=== PATIENT | female | born 1980 | race Caucasian/White ===

== ENCOUNTER 2021-08-13 09:32 | Emergency (ER) | payer MEDICARE, OTHER, MEDICAID, SELFPAY ==
[2021-08-13 09:40] VITALS: BP 158/84; PULSE 84; RESP 17; TEMP 36.2; O2SAT 99; BMI 30.7
--- NOTE | 2021-08-13 10:05 | ED.GENADULT ---
HPI - General Adult General Chief complaint: Abdominal Pain Stated complaint: Bad flank pain- rt side Time Seen by Provider: 08/13/21 09:56 Source: patient Mode of arrival: Ambulatory Limitations: no limitations History of Present Illness HPI narrative: 40-year-old woman with a history of bipolar disorder, polycystic ovaries post hysterectomy, reflux, celiac disease, hypertension. On May 28 she had some right flank pain and was seen at [facility] where CT scan was performed suggesting mild colitis normal urine at that time. She was discharged home but continued to have worsening symptoms was then seen at [facility] and diagnosed with pyelonephritis. She had 2 courses of antibiotics. She saw her primary care physician after completion of the initial course was still complaining of pain apparently still had a positive urinalysis in the clinic in a 2nd course of antibiotics was prescribed. She has done well until yesterday when she began having right flank symptoms and generally feeling unwell again, symptoms all similar to previous. She comes in for further evaluation. She describes no significant dysuria or vaginal discharge. She has been having normal bowel movements no nausea or vomiting. No palpitations or chest pain. She has had no fevers. Related Data Home Medications Medication Instructions Recorded Confirmed alprazolam 0.5 mg tablet 0.5 mg PO BID PRN 08/13/21 08/13/21 multivitamin 1 tab PO DAILY 08/13/21 08/13/21 Previous Rx's Medication Instructions Recorded cephalexin 500 mg capsule 500 mg PO TID 10 Days #30 cap 08/13/21 Allergies Allergy/AdvReac Type Severity Reaction Status Date / Time benzonatate Allergy Unknown Verified 08/13/21 10:01 [From Tessalon Perles] escitalopram [From Lexapro] Allergy Unknown Verified 08/13/21 10:01 NSAIDS (Non-Steroidal AdvReac Mild Verified 08/13/21 10:01 Anti-Inflamma Review of Systems Review of Systems Narrative: Remainder of complete review of systems is otherwise unremarkable except for that included in the HPI. Patient History Medical History (Updated 08/13/21 @ 12:04 by Lissa Conte MD) Bipolar disorder Celiac disease GERD with apnea Hypertension Polycystic ovary disease Surgical History (Updated 08/13/21 @ 10:25 by Lissa Conte MD) H/O gastric sleeve H/O oophorectomy History of appendectomy History of cholecystectomy Social History Smoking Status: Never smoker Smoking Status: Never smoker alcohol intake frequency: 0-2 drinks per day Substance Use Type: does not use Exam Narrative Exam Narrative: General: Healthy appearing, in no acute distress. Able to give a complete and coherent history. Well-nourished well-developed HEENT: Moist mucous membranes, normal sclera with reactive pupils, Neck: No JVD, supple Respiratory: Lungs are clear to auscultation, no wheezing no rales no rhonchi. Full and symmetrical air movement Cardiac: Regular rate and rhythm no murmurs no bruits Abdomen: Soft, tender in the right middle quadrant without rebound or guarding. Good bowel tones, mild right flank pain. Also has some tenderness right lumbar area paraspinous muscle without any skin changes, redness or fullness in the area. Skin: Warm and dry, no rashes Neurologic: Grossly neurologically intact with no obvious asymmetries or abnormalities Extremities: No trauma, well perfused Psych: Cooperative, appropriate insight and affect Initial Vital Signs Initial Vital Signs: Vital Signs Temperature 97.1 F L 08/13/21 09:40 Pulse Rate 84 08/13/21 09:40 Respiratory Rate 17 08/13/21 09:40 Blood Pressure 158/84 H 08/13/21 09:40 Pulse Oximetry 99 08/13/21 09:40 Course Orders Ordered: ED Orders 08/13/21 09:40 Urine Culture Stat Urine Microscopic Stat 08/13/21 09:50 Complete Blood Count AUTO DIFF Stat Comprehensive Metabolic Panel Stat Lipase Stat Discontinued Medications Ceftriaxone Sodium 1,000 mg/ (Sodium Chloride) 100 mls @ 200 mls/hr IV NOW ONE Stop: 08/13/21 12:08 Ketorolac Tromethamine (Ketorolac 30 Mg/Ml Vial) 15 mg IV NOW ONE Stop: 08/13/21 10:34 Last Admin: 08/13/21 11:07 Dose: 15 mg Documented by: AUPDIKE Oxycodone/Acetaminophen (Oxycodone/Acetaminophen 5/325 Tablet) 1 tab PO NOW ONE Stop: 08/13/21 12:08 Vital Signs Vital signs: Vital Signs - 8 hr 08/13/21 09:40 08/13/21 11:17 Temperature 97.1 F L Pulse Rate 84 70 Respiratory Rate 17 Blood Pressure 158/84 H 135/74 Pulse Oximetry 99 99 Medical Decision Making Lab Data Result diagrams: 08/13/21 09:50 08/13/21 09:50 Labs: Lab Results 08/13/21 08/13/21 08/13/21 Range/Units 09:40 09:50 09:50 WBC 10.1 (4.5-11.0) X10^3/uL RBC 4.05 (4.0-5.2) X10^6/uL Hgb 11.9 L (12.0-16.0) g/dL Hct 35.4 L (36-46) % MCV 87.5 (80-100) fL MCH 29.4 (26-34) PG MCHC 33.6 (30-36) % RDW 13.5 (11.6-14.8) % Plt Count 306 (150-400) X10^3/uL Neut % (Auto) 62.2 (50-75) % Lymph % (Auto) 27.1 (25-40) % Mccormick % (Auto) 8.8 (3-14) % Eos % (Auto) 1.4 L (2-4) % Baso % (Auto) 0.5 (0-2) % Neut # (Auto) 6300 (7827-8645) /uL Lymph # (Auto) 2700 (1520-5732) /uL Mccormick # (Auto) 900 (0-900) /uL Eos # (Auto) 100 (0-450) /uL Baso # (Auto) 100 (0-100) /uL Sodium 138 (137-145) mmol/L Potassium 4.2 (3.4-5.1) mmol/L Chloride 105 (98-107) mmol/L Carbon Dioxide 26 (22-32) mmol/L BUN 9 (7-17) mg/dL Creatinine 0.58 (0.52-1.04) mg/dL Estimated GFR > 60.0 (>60) mL/min BUN/Creatinine Ratio 15.5 (6-22) Glucose 99 (70-100) mg/dL Calcium 9.4 (8.4-10.2) mg/dL Total Bilirubin 1.0 (0.2-1.3) mg/dL AST 19 (14-36) IU/L ALT 15 (<35) IU/L Alkaline Phosphatase 47 (38-126) U/L Total Protein 7.1 (6.3-8.2) g/dL Albumin 4.4 (3.5-5.0) g/dL Globulin 2.7 (1.7-4.1) g/dL Albumin/Globulin Ratio 1.6 (1.0-2.8) Lipase 143 (23-300) U/L Urine RBC 1-5/hpf (0-5/HPF) Urine WBC 30-100/hpf H (0-5/HPF) Urine Bacteria Moderate (10-30) H (None) Ur Culture Indicated? Specimen cultured Urine Dip Bedside Urine Glucose Negative Bedside Urine Bilirubin - Negative Bedside Urine Ketone - Negative Urine Specific [place] 1.020 Bedside Urine Occult Blood +/- Bedside Urine pH 6.5 Bedside Urine Protein - Negative Bedside Urine Urobilinogen - Negative Bedside Urine Nitrite - Negative Bedside Urine Leukocytes + 70 Esterase Point of care testing: Urine Dip Bedside Urine Glucose Negative Bedside Urine Bilirubin - Negative Bedside Urine Ketone - Negative Urine Specific [place] 1.020 Bedside Urine Occult Blood +/- Bedside Urine pH 6.5 Bedside Urine Protein - Negative Bedside Urine Urobilinogen - Negative Bedside Urine Nitrite - Negative Bedside Urine Leukocytes + 70 Esterase MDM Narrative Medical decision making narrative: Woman with recurrent right flank pain. Urinalysis has white cells and moderate bacteria so will treat for presumed developing pyelonephritis. At this point she does not show signs of systemic infection, sepsis, kidney dysfunction. Will give her a dose of IV ceftriaxone to begin. As she did have 2 courses of antibiotics she will finger with the 2nd antibiotic was seem to work best and then I will send her home with a prescription for that with instructions to follow-up with her primary care physician. At this point a do not suspect kidney stone, appendicitis, bowel obstruction or surgical emergency. Original antibiotic prescription had been for cefdinir. Follow-up antibiotics were Keflex and Flagyl. I do not see an acute indication to add Flagyl to a urine/kidney infection with no evidence of colitis. Discharge Plan Departure Patient Disposition: Home Clinical Impression: Pyelonephritis Instructions: DI for Kidney Infection Activity Restrictions/Additional Instructions: Thank you for coming in today Your blood work does not show overwhelming infection or sepsis. Your urine does have white blood cells and bacteria. That, in combination with your pain suggests a developing bladder/kidney infection. In the emergency department you were given a dose of IV ceftriaxone to begin treating this and I have given you a repeat prescription of cephalexin. At this time, I do not think that we need to add the Flagyl to that. Using 400 mg of ibuprofen (2 [id number] pills) and 1 Tylenol every 6 hours can be very helpful in controlling pain. If symptoms change or worsen, please feel free to return to the ER I hope you feel better soon Prescriptions: New cephalexin 500 mg capsule 500 mg PO TID 10 Days Qty: 30 0RF No Action multivitamin [Daily Multivitamin] Tablet 1 tab PO DAILY 0RF alprazolam 0.5 mg tablet 0.5 mg PO BID PRN (Reason: Anxiety) 0RF Label Comments: take 1 tablet by mouth twice a day if needed Referrals: Elana Rees DO [Primary Care Provider] -
[2021-08-13 10:17] LABS: Add Manual Diff / Slide Review NO; Basophils Absolute Auto 100 /uL (0-100); Basophils Percent Auto 0.5 % (0-2); Eosinophils Absolute Auto 100 /uL (0-450); Eosinophils Percent Auto 1.4 % (2-4); Hematocrit 35.4 % (36-46); Hemoglobin 11.9 g/dL (12.0-16.0); Lymphocytes Absolute Auto 2700 /uL (1100-4500); Lymphocytes Percent Auto 27.1 % (25-40); Mean Corpuscular HGB Conc 33.6 % (30-36); Mean Corpuscular Hemoglobin 29.4 PG (26-34); Mean Corpuscular Volume 87.5 fL (80-100); Monocytes Absolute Auto 900 /uL (0-900); Monocytes Percent Auto 8.8 % (3-14); Neutrophils Absolute Auto 6300 /uL (1500-7000); Neutrophils Percent Auto 62.2 % (50-75); Platelet Count 306 X10^3/uL (150-400); Red Blood Cell Count 4.05 X10^6/uL (4.0-5.2); Red Cell Distribution Width 13.5 % (11.6-14.8); White Blood Cell Count 10.1 X10^3/uL (4.5-11.0)
[2021-08-13 10:26] LABS: Alanine Aminotransferase 15 IU/L (<35); Albumin 4.4 g/dL (3.5-5.0); Albumin Globulin Ratio 1.6 (1.0-2.8); Alkaline Phosphatase 47 U/L (38-126); Aspartate Aminotransferase 19 IU/L (14-36); BUN Creatinine Ratio 15.5 (6-22); Blood Urea Nitrogen 9 mg/dL (7-17); Calcium 9.4 mg/dL (8.4-10.2); Carbon Dioxide 26 mmol/L (22-32); Chloride 105 mmol/L (98-107); Estimated Glomerular Filt Rate > 60.0 mL/min (>60); Globulin 2.7 g/dL (1.7-4.1); Glucose 99 mg/dL (70-100); HEMOLYSIS < 15 (0-50); Lipase 143 U/L (23-300); Potassium 4.2 mmol/L (3.4-5.1); Sodium 138 mmol/L (137-145); Total Protein 7.1 g/dL (6.3-8.2)
[2021-08-13] MEDS: KETOROLAC 30 MG/ML VIAL 15 MG IV (11:07)
[2021-08-13 11:17] VITALS: BP 135/74; PULSE 70; O2SAT 99
[2021-08-13 11:50] LABS: Bacteria Urine Moderate (10-30); Culture Indicated Urine Specimen Cultured; RBC Urine 1-5/HPF (0-5/HPF); WBC Urine 30-100/HPF (0-5/HPF)
[2021-08-13 12:30] VITALS: BP 122/73; PULSE 63; O2SAT 100
[2021-08-13] MEDS: OXYCODONE/ACETAMINOPHEN 5/325 TABLET 1 TAB PO (12:32)
[2021-08-13] MEDS: cefTRIAXone 1,000 MG in SODIUM CHLORIDE 0.9% 100 ML 200 ML IV (12:32)
[2021-08-13 12:46] VITALS: BP 122/73; PULSE 63; RESP 14; O2SAT 100
== END 2021-08-13 13:07 | disposition home or self-care (01) ==
PROVIDERS: Emergency Provider Emergency Medicine; PCP Family Medicine
DX: N12 Tubulo-interstitial nephritis, not specified as acute or chronic (principal)
CPT/HCPCS: 36415; 80053; 81003; 81015; 83690; 85025; 87077; 87086; 87186; 96374; 99284; J0696; J1885

== ENCOUNTER → 2021-08-16 15:28 | Outpatient (CLI) | payer MEDICARE, OTHER, MEDICAID, SELFPAY ==
--- NOTE | 2021-08-16 15:30 | DI.CT.S_ITS ---
PROCEDURE: CT ABDOMEN PELVIS WO/W CON INDICATIONS: PYELONEPHRITIS TECHNIQUE: Optional 5 mm thick noncontrast images acquired from the diaphragm to the symphysis pubis. After the administration of intravenous contrast, 5 mm thick images acquired from the diaphragm to the symphysis pubis after a 10-minute delay. 2 mm thick coronal and sagittal reformats were then performed of the kidneys and ureters. For radiation dose reduction, the following was used: automated exposure control, adjustment of mA and/or kV according to patient size. COMPARISON: [facility], CT, CT ABDOMEN PELVIS WITH CONTRAST, 01/09/2021, 18:08. [facility], CT, CT ABDOMEN PELVIS WITH CONTRAST, 10/07/2020, 20:48. [facility], CT, CT ABDOMEN PELVIS WITH CONTRAST, 05/24/2020, 7:24. [facility], CT, CT ABDOMEN PELVIS WITH CONTRAST, 05/28/2021, 15:09. FINDINGS: Image quality: Excellent. Lung bases: Lung bases are clear. Heart size is normal. Small hiatal hernia. Urinary system: Both kidneys are normal in size, without hydronephrosis or nephrolithiasis on pre-contrast images. No perinephric fat stranding. There is normal bilateral renal enhancement. Renal calyces appear normal in morphology when filled with contrast. Opacified portions of both ureters demonstrate normal caliber. Bladder wall thickness is normal. No calcified bladder stones. Other solid organs: Liver is normal in size and enhancement. A small hypodensity in liver adjacent to the falciform ligament is compatible with focal fat. Gallbladder is surgically absent. Biliary system is non dilated. Pancreas enhances normally. Spleen is normal in size. There is a 4.6 cm diameter cyst in spleen, unchanged. No adrenal nodules. Peritoneum and bowel: Postsurgical changes in stomach. Bowel loops demonstrate normal wall thickness and caliber. A few colonic diverticula are present. No diverticulitis. Appendix is surgically removed. No free fluid or air. Nodes and vessels: No retroperitoneal or mesenteric adenopathy by size criteria. Aorta and inferior vena cava are normal in size. Abdominal wall: No ventral hernias. Pelvis: Uterus is absent. Ovaries are not well seen. No adnexal mass. No pathologic free pelvic fluid. No inguinal hernias or adenopathy. Bones: No suspicious bony lesions. No vertebral body compression fractures. Mild degenerative changes in lumbar spine. IMPRESSION: 1. Normal CT appearance of kidneys. No findings to suggest pyelonephritis. 2. Diverticulosis without diverticulitis. 3. Stable 4.6 cm cyst in spleen. Dictated by: Claudio Novak M.D. on 08/16/2021 at 16:35 Approved by: Claudio Novak M.D. on 08/16/2021 at 16:42
== END ==
PROVIDERS: PCP Family Medicine; Referring Provider Family Medicine; Visit Provider Family Medicine
DX: N12 Tubulo-interstitial nephritis, not specified as acute or chronic (principal)
CPT/HCPCS: 74178; Q9967

== ENCOUNTER 2021-11-02 21:02 | Emergency (ER) | payer MEDICARE, OTHER, MEDICAID, SELFPAY ==
[2021-11-02 21:22] VITALS: BP 143/76; PULSE 65; RESP 20; TEMP 36.7; O2SAT 97
--- NOTE | 2021-11-02 21:27 | DI.RAD.S_ITS ---
PROCEDURE: XR KNEE LT 3V INDICATIONS: fell on it yesterday,pain and contusion TECHNIQUE: 3 views of the knee were acquired. COMPARISON: None. FINDINGS: Bones: No fractures or dislocations. No suspicious bony lesions. Soft tissues: No joint effusion. No suspicious soft tissue calcifications. IMPRESSION: No evidence acute bony abnormality of the left knee. If clinical suspicion and/or symptoms persist, further assessment with repeat plain films, or advanced imaging (e.g., CT, MRI, or bone scan) may be helpful for further assessment. Dictated by: Chase Steele M.D. on 11/02/2021 at 22:29 Approved by: Chase Steele M.D. on 11/02/2021 at 22:30
--- NOTE | 2021-11-02 21:53 | ED_ITS ---
HPI - Extremity Injury (Lower) General Chief Complaint: Extremity Injury, Lower Stated Complaint: fell on left knee, pain Time Seen by Provider: 11/02/21 21:06 Source: patient Mode of arrival: Ambulatory History of Present Illness HPI Narrative: 40-year-old female nonsmoker with noncontributory medical history presents with her significant other and a chief complaint of severe anterior left knee pain since a mechanical fall yesterday. She states she was getting some items out of her car a put a backpack over her shoulder and stepped out onto black ice and fell directly forward onto her knee cap. She denies any twisting type injury. She states she has had meniscal injuries in the past this feels much different. She states her pain was not all that severe initially but over the course of the last 24 hours has become much more significant. She denies any numbness, tingling or weakness. She denies any head, neck or back pain. She denies any hip or ankle injuries. She has increased pain with attempts at ambulation but states the pain comes when she flexes her knee not when she is load bearing on it. Related Data Home Medications Medication Instructions Recorded Confirmed alprazolam 0.5 mg tablet 0.5 mg PO BID PRN 08/13/21 08/13/21 multivitamin 1 tab PO DAILY 08/13/21 08/13/21 Previous Rx's Medication Instructions Recorded hydrocodone 5 mg-acetaminophen 325 1 tab PO Q4-6H PRN #10 tab 11/02/21 mg tablet Allergies Allergy/AdvReac Type Severity Reaction Status Date / Time benzonatate Allergy Unknown Verified 08/13/21 10:01 [From Ezekiel Dhaliwal] escitalopram [From Lexapro] Allergy Unknown Verified 08/13/21 10:01 NSAIDS (Non-Steroidal AdvReac Mild Verified 08/13/21 10:01 Anti-Inflamma Review of Systems Review of Systems Narrative: GENERAL: Denies chills, fatigue, malaise, fever, sweats. HEENT: Denies sinus pain, ear pain, sore throat, difficulty swallowing, dizziness. RESPIRATORY: Denies dyspnea, cough, wheezing, hemoptysis, sputum. CARDIOVASCULAR: Denies chest pain, palpitations, orthopnea, edema, GASTROINTESTINAL: Denies nausea, vomiting, abdominal pain, diarrhea, constipation, melena. : Denies dysuria, frequency, incontinence, hematuria, urinary retention. MUSCULOSKELETAL: See HPI SKIN: Denies rash, skin lesions, or other NEUROLOGIC: Denies weakness, headache, numbness, change in speech, confusion, seizures, incoordination. PSYCHIATRIC: No concerning psychosocial issues. 12 point review of systems is negative except for those stated above Patient History Medical History Bipolar disorder Celiac disease GERD with apnea Hypertension Polycystic ovary disease Surgical History H/O gastric sleeve H/O oophorectomy History of appendectomy History of cholecystectomy Social History Smoking Status: Never smoker Smoking Status: Never smoker alcohol intake frequency: 0-2 drinks per day Substance Use Type: does not use Exam Narrative Exam Narrative: GENERAL: [40] year old patient appears stated age. Well-developed patient, in mild distress. HEAD: Atraumatic. Normocephalic. EYES: Pupils equal round and reactive. Extraocular motions intact. No scleral icterus. No injection or drainage. ENT: Nose without bleeding, purulent drainage. Throat without erythema, tonsillar hypertrophy or exudate. Airway patent. NECK: Trachea midline. Non tender CARDIOVASCULAR: Regular rate and rhythm without murmurs, gallops, or rubs. RESPIRATORY: Clear to auscultation. Breath sounds equal bilaterally. No wheezes, rales, or rhonchi. GASTROINTESTINAL: Abdomen soft, non-tender, nondistended. EXTREMITIES: Full but painful range of motion of left knee, no swelling or ligamentous stability. No pain with axial loading. There is tenderness to pal pation overlying the patella. Patient able to extend at the knee fully, but with pain. BACK: Nontender without deformity or crepitance. No flank tenderness. NEURO: AOx3. SKIN: No rash or erythema of visible areas Initial Vital Signs Initial Vital Signs: Vital Signs Temperature 98.1 F 11/02/21 21:22 Pulse Rate 65 11/02/21 21: Respiratory Rate 20 11/02/21 21:22 Blood Pressure 143/76 H 11/02/21 21:22 Pulse Oximetry 97 11/02/21 21:22 Procedures Orthopedic Splinting/Casting Injury #1: Side: left Lower Extremity Injury Location: knee Lower Extremity Immobilizer: knee immobilizer Post splinting neuro exam: intact Post splinting vascular exam: intact Placed by: Nursing Course Orders Ordered: ED Orders 11/02/21 21:27 XR knee LT 3V Stat Discontinued Medications Hydrocodone Bitart/Acetaminophen (Hydrocodone/Acet 5/325 Prepack) 1 bottle MISC SEEINSTR ONE Stop: 11/02/21 22:43 Last Admin: 11/02/21 22:51 Dose: 1 bottle Documented by: FANY Vital Signs Vital signs: Vital Signs - 8 hr 11/02/21 21:22 11/02/21 22:58 Temperature 98.1 F Pulse Rate 65 66 Respiratory Rate 20 18 Blood Pressure 143/76 H 139/86 Pulse Oximetry 97 100 MDM - Extremity Injury (Lower) Imaging Data Extremity x-ray #1: Radiologist's Impression: [address] [address] XRay Report Signed Patient: Janet Capellan MR#: [id number] : 1980 Acct:[id number] Age/Sex: 40 / F Date of Service: 11/02/21 Loc: ED Accession Number: [id number] ?? Procedure: XR knee LT 3V Ordering Provider: Horace Kan D.O. PROCEDURE:? XR KNEE LT 3V ? INDICATIONS:? fell on it yesterday,pain and contusion ? TECHNIQUE:? 3 views of the knee were acquired.? ? COMPARISON:? None. ? FINDINGS:? ? Bones:? No fractures or dislocations.? No suspicious bony lesions.? ? Soft tissues:? No joint effusion.? No suspicious soft tissue calcifications.? ? ? IMPRESSION:? No evidence acute bony abnormality of the left knee. ? If clinical suspicion and/or symptoms persist, further assessment with repeat plain films, or advanced imaging (e.g., CT, MRI, or bone scan) may be helpful for further assessment. ? Dictated by: Chase Steele M.D. on 11/02/2021 at 22:29 ? ? Approved by: Chase Steele M.D. on 11/02/2021 at 22:30 ? [facility] Narrative Medical decision making narrative: Patient with reassuring history and physical exam. Fracture thought to be unlikely given lack of findings on imaging, lack of effusion and lack of pain with axial load. There is no evidence of ligamentous instability, pain with Edgar's, or effusion to suggest significant internal derangement. Patellar tendon intact given patient's ability to actively extend at the knee. Patient's pain is worsening over time suggesting an inflammatory soft tissue injury as opposed to fracture. We did discuss the utility of CT but agree is not indicated at this point time. Extensive return precautions discussed and questions answered to their apparent satisfaction Discharge Plan Departure Patient Disposition: Home Clinical Impression: Contusion of knee Instructions: DI for Knee Pain Activity Restrictions/Additional Instructions: *You have been diagnosed with [fall with left knee pain. Your history and physical exam are reassuring, x-ray shows no fracture or dislocation. *What to do: *Please continue to take your regular medications as directed. [x ] New medication prescriptions sent to your pharmacy: [[facility] ] [ ] New medication written as a paper prescription [ ] No new medications given *Please follow up with your primary care provider in 2-3 days, call for an appointment. Let them know you were seen in the Emergency Department and that we ask that you be seen in follow up. We will electronically transmit a record of today's note if your PCP is in our system *If you do not have a primary care provider please contact the [facility] Resource line at [phone]. They will ask some questions about your medical history and help get you set up with a doctor in the community. *Return to Emergency Department if you should have any new, worsening or concerning symptoms, such as [fever greater than 101 F, shaking chills, worsening pain, persistent vomiting or other bothersome symptoms] You have been prescribed a short course of narcotic medications. These are potentially dangerous and addictive medications that should be used carefully. While on these medications you cannot drive or operate heavy machinery. Additionally, you cannot sign legal documents or perform any duties such as this. Many people get constipated on narcotic medications so it would be advisable to discuss stool softeners with the pharmacist when you grape picker your prescription. Please understand that we cannot provide further refills of narcotics or controlled substances through the ED and your pain management will need to be through your Primary Care Provider Prescriptions: New hydrocodone-acetaminophen 5-325 mg tablet 1 tab PO Q4-6H PRN (Reason: pain) Qty: 10 0RF No Action multivitamin [Daily Multivitamin] Tablet 1 tab PO DAILY 0RF alprazolam 0.5 mg tablet 0.5 mg PO BID PRN (Reason: Anxiety) 0RF Label Comments: take 1 tablet by mouth twice a day if needed Referrals: Elana Rees DO [Primary Care Provider] -
[2021-11-02] MEDS: HYDROCODONE/ACET 5/325 PREPACK 1 BOTTLE MISC (22:51)
[2021-11-02 22:58] VITALS: BP 139/86; PULSE 66; RESP 18; O2SAT 100
== END 2021-11-02 23:02 | disposition home or self-care (01) ==
PROVIDERS: Emergency Provider Emergency Medicine; PCP Family Medicine
DX: S80.02XA Contusion of left knee, initial encounter (principal); W00.0XXA Fall on same level due to ice and snow, initial encounter
CPT/HCPCS: 73562; 99283

== ENCOUNTER 2021-11-27 12:16 | Emergency (ER) | payer MEDICARE, OTHER, MEDICAID, SELFPAY ==
[2021-11-27 12:26] VITALS: BP 180/93; PULSE 67; RESP 16; TEMP 37; O2SAT 97; BMI 31.4
--- NOTE | 2021-11-27 13:19 | DI.US.S_ITS ---
PROCEDURE: US PELVIC COMPLETE INDICATIONS: R adnexa pain eval for ovarian pathology TECHNIQUE: Real-time scanning was performed of the pelvic organs, with image documentation. Additional endovaginal scanning was necessary due to incomplete visualization of the adnexal and endometrial structures by transabdominal scanning. COMPARISON: [facility], CT, CT ABDOMEN PELVIS WO/W CON, 08/16/2021, 15:38. [facility], US, US PELVIC TRANSVAGINAL, 05/28/2021, 14:51. FINDINGS: Uterus: Removed. Ovaries: The right ovary measures 3.3 x 1.9 x 1.8 cm and demonstrates 2 complex areas within it measuring up to 1.3 cm and up to 1.2 cm. Normal appearing arterial flow is confirmed to the right ovary. The left ovary is not seen. No adnexal masses are seen on either side. Other: No pathologic free abdominal or pelvic fluid. IMPRESSION: Abnormal appearing right ovary, with 2 complex areas, which have the appearance of hemorrhagic cysts. If it would be clinically appropriate, a followup pelvic ultrasound could be considered in 6 weeks to assure resolution/ improvement. Negative for right ovarian torsion. Status post hysterectomy and left oophorectomy. We strive to produce accurate, complete, and clear reports of imaging services. To assist us in improving patient care, this report was composed using standard report templates and voice recognition software. Therefore, it may contain abnormal punctuation, insertions and/or omissions. Occasional wrong-word or sound-alike substitutions may occur. Though we review the report and make efforts to correct it, we do recommend that the report be read carefully in proper context to recognize any text inaccuracies. Dictated by: Rasheed Tanner M.D. on 11/27/2021 at 13:12 Approved by: Rasheed Tanner M.D. on 11/27/2021 at 13:14
[2021-11-27 15:09] VITALS: BP 171/96; PULSE 80; RESP 18; O2SAT 100
--- NOTE | 2021-11-27 15:47 | ED_ITS ---
HPI - Abdominal Pain <Luhter Fischer PA-C - Last Filed: 11/27/21 15:56> General Chief Complaint: Abdominal Pain Stated Complaint: RIGHT SIDE OVERIAN CYST PAIN PRESSURE Time Seen by Provider: 11/27/21 13:19 Source: patient Mode of arrival: Ambulatory History of Present Illness HPI narrative: Patient is a 40-year-old female who presents today with right lower quadrant abdominal pain that started 2 days ago. She has a history of ovarian cyst in the past she had a left oophorectomy with complete hysterectomy done a couple years ago. She states that a couple days ago she started having pinpoint lower right quadrant abdominal pain that has become progressively worse. She is having some associated nausea denies any vomiting or diarrhea no recent trauma or fall. Patient denies any dysuria fever vaginal discharge vaginal bleeding. She has had a previous appendectomy as well as a cholecystectomy. Related Data Home Medications Medication Instructions Recorded Confirmed alprazolam 0.5 mg tablet 0.5 mg PO BID PRN 08/13/21 08/13/21 multivitamin 1 tab PO DAILY 08/13/21 08/13/21 Previous Rx's Medication Instructions Recorded hydrocodone 5 mg-acetaminophen 325 1 tab PO Q4-6H PRN #10 tab 11/02/21 mg tablet ondansetron 4 mg disintegrating 4 mg PO Q6-8H PRN #10 tab 11/27/21 tablet tramadol 50 mg tablet 50 mg PO Q6H #20 tab 11/27/21 Allergies Allergy/AdvReac Type Severity Reaction Status Date / Time benzonatate Allergy Unknown Verified 11/27/21 12:26 [From Tessalon Perles] escitalopram [From Lexapro] Allergy Unknown Verified 11/27/21 12:26 NSAIDS (Non-Steroidal AdvReac Mild Verified 11/27/21 12:26 Anti-Inflamma Review of Systems <Luther Fischer PA-C - Last Filed: 11/27/21 15:56> Review of Systems ROS Unobtainable: All systems reviewed & are unremarkable except as noted in HPI and below Constitutional Constitutional: Denies chills, Denies fatigue, Denies fever(s), Denies frequent falls, Denies lethargy and Denies weakness Eyes Eyes: Denies change in vision, Denies eye discharge, Denies irritation and Denies loss of vision ENT Ears, Nose, Mouth, and Throat: Denies change in voice, Denies dizziness, Denies neck pain, Denies sore throat and Denies throat swelling Cardiovascular Cardiovascular: Denies chest pain, Denies irregular heart rhythm, Denies lightheadedness, Denies palpitations, Denies dyspnea, Denies dyspnea on exertion and Denies orthopnea Respiratory Respiratory: Denies cough, Denies dyspnea, Denies dyspnea on exertion and Denies wheezing Gastrointestinal Gastrointestinal: Reports abdominal pain, Denies change in bowel habits, Denies diarrhea, Reports nausea and Denies vomiting Genitourinary Genitourinary: Denies hematuria, Denies flank pain, Denies urinary incontinence and Denies urinary urgency Musculoskeletal Musculoskeletal: Denies back pain, Denies muscle weakness, Denies neck pain, Denies numbness and Denies tingling Integumentary/Breasts Skin/Breast: Denies pruritus, Denies erythema, Denies rash and Denies wounds Neurologic Neurologic: Denies behavioral changes, Denies confusion, Denies dizziness, De nies frequent falls, Denies loss of vision, Denies numbness, Denies tingling and Denies weakness Psychiatric Psychiatric: Denies anxiety, Denies behavioral changes, Denies confusion, Denies depression, Denies homicidal ideation and Denies suicidal ideation Endocrine Endocrine: Denies fatigue, Denies flushing and Denies palpitations Hematologic/Lymphatic Hematologic/Lymphatic: Denies easy bruising Allergic/Immunologic Allergic/Immunologic: Denies urticaria, Denies throat swelling and Denies wheezing Patient History <Luther Fischer PA-C - Last Filed: 11/27/21 15:56> Medical History Bipolar disorder Celiac disease GERD with apnea Hypertension Polycystic ovary disease Surgical History H/O gastric sleeve H/O oophorectomy History of appendectomy History of cholecystectomy Social History Smoking Status: Never smoker Smoking Status: Never smoker alcohol intake frequency: holidays/special occasions only Substance Use Type: does not use Exam <Luther Fischer PA-C - Last Filed: 11/27/21 15:56> Initial Vital Signs Initial Vital Signs: Vital Signs Temperature 98.6 F 11/27/21 12:26 Pulse Rate 67 11/27/21 12:26 Respiratory Rate 16 11/27/21 12:26 Blood Pressure 180/93 H 11/27/21 12:26 Pulse Oximetry 97 11/27/21 12:26 Const General: cooperative, healthy appearing and comfortable Nutritional Appearance: average body habitus Orientation: Orientation Resp Effort & Inspection: normal respiratory effort and able to speak in complete sentences Auscultation: clear to auscultation bilaterally Percussion: percussion normal Cardio Palpation: normal PMI Rate: regular rate Rhythm: regular rhythm Heart Sounds: S1 normal and S2 normal GI Inspection: normal to inspection Palpation: soft, no hepatosplenomegaly and tender (Right lower quadrant pain) Percussion: normal to percussion Auscultation: normal bowel sounds Skin General: no rashes or lesions noted <DO Sergio Gallagher Last Filed: 11/27/21 16:04> Initial Vital Signs Initial Vital Signs: Vital Signs Temperature 98.6 F 11/27/21 12:26 Pulse Rate 67 11/27/21 12:26 Respiratory Rate 16 11/27/21 12:26 Blood Pressure 180/93 H 11/27/21 12:26 Pulse Oximetry 97 11/27/21 12:26 Course <Luther Fischer PA-C - Last Filed: 11/27/21 15:56> Orders Ordered: ED Orders 11/27/21 13:19 US pelvic complete Stat Discontinued Medications Hydromorphone HCl (Hydromorphone 1 Mg Inj) 1 mg IM NOW ONE Stop: 11/27/21 15:46 Promethazine HCl (Promethazine 25 Mg Tablet) 25 mg PO NOW ONE Stop: 11/27/21 15:46 Vital Signs Vital signs: Vital Signs - 8 hr 11/27/21 12:26 11/27/21 15:09 Temperature 98.6 F Pulse Rate 67 80 Respiratory Rate 16 18 Blood Pressure 180/93 H 171/96 H Pulse Oximetry 97 100 <DO Sergio Gallagher Last Filed: 11/27/21 16:04> Orders Ordered: ED Orders 11/27/21 13:19 US pelvic complete Stat Discontinued Medications Hydromorphone HCl (Hydromorphone 1 Mg Inj) 1 mg IM NOW ONE Stop: 11/27/21 15:46 Promethazine HCl (Promethazine 25 Mg Tablet) 25 mg PO NOW ONE Stop: 11/27/21 15:46 Vital Signs Vital signs: Vital Signs - 8 hr 11/27/21 12:26 11/27/21 15:09 Temperature 98.6 F Pulse Rate 67 80 Respiratory Rate 16 18 Blood Pressure 180/93 H 171/96 H Pulse Oximetry 97 100 MDM - Abdominal Pain <Luther Fischer PA-C - Last Filed: 11/27/21 15:56> Differential Diagnosis Differential diagnosis: Likely abdominal pain and other Lab Data Point of care testing: Urine Dip Bedside Urine Glucose Negative Bedside Urine Bilirubin - Negative Bedside Urine Ketone - Negative Urine Specific Stone[place] 1.015 Bedside Urine Occult Blood - Negative Bedside Urine pH 6.0 Bedside Urine Protein - Negative Bedside Urine Urobilinogen - Negative Bedside Urine Nitrite - Negative Bedside Urine Leukocytes - Negative Esterase Imaging Data US - abdomen: Radiologist's Impression: PROCEDURE:? US PELVIC COMPLETE ? INDICATIONS:? R adnexa pain eval for ovarian pathology ? TECHNIQUE:? Real-time scanning was performed of the pelvic organs, with image documentation.? Additional endovaginal scanning was necessary due to incomplete visualization of the adnexal and endometrial structures by transabdominal scanning.? ? COMPARISON:? [facility], CT, CT ABDOMEN PELVIS WO/W CON, 08/16/2021, 15:38.? [facility], US, US PELVIC TRANSVAGINAL, 05/28/2021, 14:51. ? FINDINGS:? ?? Uterus:? Removed. ? Ovaries:? The right ovary measures 3.3 x 1.9 x 1.8 cm and demonstrates 2 complex areas within it measuring up to 1.3 cm and up to 1.2 cm.? Normal appearing arterial flow is confirmed to the right ovary. ? The left ovary is not seen. ? No adnexal masses are seen on either side.? ? Other:? No pathologic free abdominal or pelvic fluid. ? ? IMPRESSION:? Abnormal appearing right ovary, with 2 complex areas, which have the appearance of hemorrhagic cysts. If it would be clinically appropriate, a followup pelvic ultrasound could be considered in 6 weeks to assure resolution/ improvement.? ? Negative for right ovarian torsion. ? Status post hysterectomy and left oophorectomy. ? ? We strive to produce accurate, complete, and clear reports of imaging services. To assist us in improving patient care, this report was composed using standard report templates and voice recognition software. Therefore, it may contain abnormal punctuation, insertions and/or omissions. Occasional wrong-word or sound-alike substitutions may occur. Though we review the report and make efforts to correct it, we do recommend that the report be read carefully in proper context to recognize any text inaccuracies. ? ? Dictated by: Rasheed Tanner M.D. on 11/27/2021 at 13:12 ? ? Approved by: Rasheed Tanner M.D. on 11/27/2021 at 13:14?? MDM Narrative Medical decision making narrative: Patient was evaluated today for right lower quadrant abdominal pain. Ultrasound does show evidence of a right-sided ovarian cyst that is hemorrhagic in nature. I think it is feasible that this is the result of her ongoing pain. Pain medication and anti nausea medication was sent over to her pharmacy. She can follow-up with her OBGYN or she can return to the ED for any further concerns patient was discharged home. <Onesimo Cruz, - Last Filed: 11/27/21 16:04> Lab Data Point of care testing: Urine Dip Bedside Urine Glucose Negative Bedside Urine Bilirubin - Negative Bedside Urine Ketone - Negative Urine Specific Stonewall 1.015 Bedside Urine Occult Blood - Negative Bedside Urine pH 6.0 Bedside Urine Protein - Negative Bedside Urine Urobilinogen - Negative Bedside Urine Nitrite - Negative Bedside Urine Leukocytes - Negative Esterase Discharge Plan Departure Patient Disposition: Home Clinical Impression: Hemorrhagic cyst of right ovary Instructions: DI for Ovarian Cyst, DI for Abdominal Pain-Adult Activity Restrictions/Additional Instructions: Your seen today for abdominal pain that I think is likely a result of your right-sided hemorrhagic ovarian cyst. Get pain medications and anti nausea medications were sent over to your pharmacy follow-up with your OBGYN is recommended or you can return to the ED if symptoms worsen. Thank you for the opportunity to care for you today Prescriptions: New tramadol 50 mg tablet 50 mg PO Q6H Qty: 20 0RF ondansetron 4 mg tablet,disintegrating 4 mg PO Q6-8H PRN (Reason: nausea and vomiting) Qty: 10 0RF No Action hydrocodone-acetaminophen 5-325 mg tablet 1 tab PO Q4-6H PRN (Reason: pain) Qty: 10 0RF multivitamin [Daily Multivitamin] Tablet 1 tab PO DAILY 0RF alprazolam 0.5 mg tablet 0.5 mg PO BID PRN (Reason: Anxiety) 0RF Label Comments: take 1 tablet by mouth twice a day if needed Referrals: Elaan Rees DO [Primary Care Provider] - <Onesimo Cruz DO - Last Filed: 11/27/21 16:04> Cosign ED Attending Cosignature Attestation: Dr Cruz Co-Sign Statement: I was available for consultation during this patient's emergency department visit. This chart is signed by myself for administrative purposes only. I did not have direct contact with this patient during this visit. They were seen independently by the APC.
[2021-11-27] MEDS: PROMETHAZINE 25 MG TABLET PO (16:01)
[2021-11-27] MEDS: HYDROMORPHONE 1 MG INJ IM (16:02)
[2021-11-27 16:24] VITALS: BP 152/86; PULSE 81; RESP 18; O2SAT 98
== END 2021-11-27 16:31 | disposition home or self-care (01) ==
PROVIDERS: Emergency Provider Physician Assistant; PCP Family Medicine
DX: N83.201 Unspecified ovarian cyst, right side (principal)
CPT/HCPCS: 76830; 76856; 81003; 96372; 99283; J1170

== ENCOUNTER 2022-03-01 22:22 | Emergency (ER) | payer MEDICARE, OTHER, MEDICAID, SELFPAY ==
[2022-03-01 22:26] VITALS: BP 138/83; PULSE 70; RESP 18; TEMP 36.3; O2SAT 100; BMI 34.3
--- NOTE | 2022-03-01 22:54 | DI.US.S_ITS ---
PROCEDURE: US PERIPH VENOUS LOW EXTREM RT INDICATIONS: PAIN SWELLING RIGHT LEG ; RIGHT CALF INJURY TECHNIQUE: Real-time imaging, as well as color and pulse Doppler interrogation, were performed of the lower extremity deep veins from the inguinal ligament to the popliteal fossa. COMPARISON: None. FINDINGS: The common femoral, femoral and popliteal veins are normally compressible, and free of intraluminal thrombus. Color and pulse Doppler demonstrate normal phasic intraluminal flow. There is normal augmentation response to distal compression maneuver. Additional, dedicated ultrasound scanning is performed at the area of calf swelling. No focal ultrasound abnormalities are seen within this region. No fluid collections are seen. IMPRESSION: Negative for deep venous thrombosis. Dictated by: Rasheed Tanner M.D. on 03/01/2022 at 22:53 Approved by: Rasheed Tanner M.D. on 03/01/2022 at 22:54
--- NOTE | 2022-03-01 23:11 | ED_ITS ---
HPI - Extremity Injury (Lower) General Chief Complaint: Extremity Injury, Lower Stated Complaint: LLE hit by softball, pain Time Seen by Provider: 03/01/22 22:40 Source: patient Mode of arrival: Ambulatory History of Present Illness HPI Narrative: 41F nonsmoker presents with pain in R posterior calf after an injury yesterday. She was playing softball and was able to turn she saw ball hit at her, she was struck in the right posterior medial calf just below the knee and has pain, swelling and bruising. She states it is better than yesterday but she is still having discomfort and wanted to be evaluated. She denies any bony pain and states it is only in the ?meat? of her calf. She denies any increasing size of her calf or pain, she denies any radiation of the discomfort. She states is worse when she ambulates and improves with rest. She denies any chest pain or shortness of breath. She is otherwise well and free of complaint Related Data Home Medications Medication Instructions Recorded Confirmed alprazolam 0.5 mg tablet 0.5 mg PO BID PRN Anxiety 08/13/21 08/13/21 multivitamin 1 tab PO DAILY 08/13/21 08/13/21 Previous Rx's Medication Instructions Recorded hydrocodone 5 mg-acetaminophen 325 1 tab PO Q4-6H PRN pain #10 tabs 11/02/21 mg tablet ondansetron 4 mg disintegrating 4 mg PO Q6-8H PRN nausea and 11/27/21 tablet vomiting #10 tabs tramadol 50 mg tablet 50 mg PO Q6H #20 tabs 11/27/21 Allergies Allergy/AdvReac Type Severity Reaction Status Date / Time benzonatate Allergy Unknown Verified 11/27/21 12:26 [From Ezekiel Dhaliwal] escitalopram [From Lexapro] Allergy Unknown Verified 11/27/21 12:26 NSAIDS (Non-Steroidal AdvReac Mild Verified 11/27/21 12:26 Anti-Inflamma Review of Systems Review of Systems Narrative: GENERAL: Denies chills, fatigue, malaise, fever, sweats. HEENT: Denies sinus pain, ear pain, sore throat, difficulty swallowing, dizziness. RESPIRATORY: Denies dyspnea, cough, wheezing, hemoptysis, sputum. CARDIOVASCULAR: Denies chest pain, palpitations, orthopnea, edema, GASTROINTESTINAL: Denies nausea, vomiting, abdominal pain, diarrhea, constipation, melena. : Denies dysuria, frequency, incontinence, hematuria, urinary retention. MUSCULOSKELETAL: See HPI SKIN: Denies rash, skin lesions, or other NEUROLOGIC: Denies weakness, headache, numbness, change in speech, confusion, seizures, incoordination. PSYCHIATRIC: No concerning psychosocial issues. 12 point review of systems is negative except for those stated above Patient History Medical History Bipolar disorder Celiac disease GERD with apnea Hypertension Polycystic ovary disease Surgical History H/O gastric sleeve H/O oophorectomy History of appendectomy History of cholecystectomy Social History Smoking Status: Never smoker Smoking Status: Never smoker alcohol intake frequency: holidays/special occasions only Substance Use Type: does not use Exam Narrative Exam Narrative: GEN: AOx3 and in mild distress EYES: Pupils are equal, round, and reactive to light and accommodation. Extraoccular muscles are intact bilaterally. There is no subconjunctival hemorr matt or exudate. CHEST: Lungs are clear to auscultation bilaterally and free of wheezes, rales, or rhonchi. Heart rate is regular rhythm, there are no murmurs, clicks, rubs, or gallops. There is no chest wall tenderness. ABD: Abdomen is soft and nontender. There is no guarding or rebound. Bowel sounds are normal in all 4 quadrants. There is no mass or organomegaly. EXT: Right posterior medial calf with moderate ecchymosis and swelling just inferior to the knee. She has full, painless range of motion at the knee and no ligamentous instability. There is no pain along the bony lower leg. There is no lymphangitis or pain in the medial thigh. SKIN: Warm, pink, and dry. No erythema or rash Initial Vital Signs Initial Vital Signs: Vital Signs Temperature 97.4 F L 03/01/22 22:26 Pulse Rate 70 03/01/22 22:26 Respiratory Rate 18 03/01/22 22:26 Blood Pressure 138/83 03/01/22 22:26 Pulse Oximetry 100 03/01/22 22:26 Oxygen Delivery Method 03/01/22 22:26 Course Orders Ordered: ED Orders 03/01/22 22:54 US periph venous low extrem rt Stat Vital Signs Vital signs: Vital Signs - 8 hr 03/01/22 22:26 Temperature 97.4 F L Pulse Rate 70 Respiratory Rate 18 Blood Pressure 138/83 Pulse Oximetry 100 Oxygen Delivery Method Room Air MDM - Extremity Injury (Lower) Imaging Data US - DVT: Radiologist's Impression: Chart Viewer Diagnostics DATE TYPE STATUS REF RANGE/AUTHOR Hx 03/01/22 23:37 Rasheed Tanner 03/01/22 21:49 Ciro,Rasheed 03/01/22 21:03 Audubon,Rasheed 02/27/22 18:06 Gisselle Hernandes 02/27/22 16:16 Gisselle Hernandes 02/05/22 21:01 Paramjit Marr 02/05/22 20:11 Paramjit Marr 01/15/22 14:47 Jamee Marcano 01/15/22 14:05 Rasheed Tanner 01/15/22 13:27 01/15/22 13:27 08/29/21 23:32 08/11/21 02:58 Kojo Campos 08/11/21 02:54 08/09/21 02:36 Tien Pham 08/09/21 01:29 07/08/21 00:00 Tien Pham 07/07/21 22:01 Tien Pham 07/07/21 18:50 06/29/21 10:29 Kojo Campos 06/29/21 02:49 06/29/21 01:33 Paramjit Marr 06/24/21 23:56 05/21/21 19:51 05/21/21 19:49 Joe Gonzales 05/07/21 17:10 04/23/21 11:18 03/05/21 22:30 02/25/21 06:27 02/15/21 19:46 10/05/20 20:22 09/28/20 21:51 09/28/20 20:52 Tien Pham 09/19/20 12:07 Paramjit Marr 07/22/20 02:04 07/21/20 23:53 Arnold Page 07/21/20 23:03 PageArnold weinstein 07/04/20 16:04 07/04/20 12:54 Jose Luis Myers 06/19/20 08:01 06/19/20 05:35 ScarletKandi looalfa 06/03/20 20:37 05/21/20 17:56 04/28/20 18:04 PageArnold weinstein 04/09/20 20:00 04/09/20 16:38 Jose Luis Myers 04/09/20 14:53 Amalia Tannere 04/07/20 18:20 04/07/20 16:15 PageArnold weinstein 03/23/20 10:16 03/15/20 18:24 03/01/20 17:12 02/16/20 07:08 Jose Luis Myers 02/15/20 16:42 02/15/20 15:50 SilverBebeto 08/03/19 14:21 Jamee Marcano 08/01/19 22:54 08/01/19 22:54 08/01/19 21:37 Gisselle Hernandes 07/26/19 09:59 ScarletMark Anthony Elisa Adhikariashlee Kowalski ED 30, F1 REG ER, [facility] ED R05 154.94cm 45.359kg BMI: 18.9kg/m? Abdominal Pain Search Chart No Data to Display Total Incomplete Hives, pruritus rash, itchy Difficulty Breathing rash tape Hives ONSET Today 01:54 Diagnostics Reports Elisa Adhikariashlee Kowalski 30 F 06/16/1991 Allergy/Adv: castillo, iodine, morphine, shellfish derived, adhesive, latex [address] [id number] Scan ReportSigned Patient: Sue Adhikari [facility]#: [id number]: 06/16/1991Acct:[id number]/Sex: 30 / FDate of Service: 03/01/22Loc: EDAccession Number: [id number] Procedure: CT abdomen pelvis w con Ordering Provider: Horace Kan D.O. PROCEDURE: CT ABDOMEN PELVIS W CON INDICATIONS: severe pain in epigastrum TECHNIQUE: After the administration of oral and IV contrast, axial sections were acquired from the lung bases to the pubic symphysis. Coronal and sagittal reformats were performed. For radiation dose reduction, the following was used: automated exposure control, adjustment of mA and/or kV according to patient size. COMPARISON: [facility], CT, CT ABDOMEN PELVIS W CON, 01/15/2022, 14:00. [facility], CT, CT PEL WO CON, 02/05/2022, 21:48. [facility], CR, XR CHEST 1V, 03/01/2022, 22:22. [facility], US, US ABDOMEN LIMITED, 03/01/2022, 22:25. [facility], CT, CT ABDOMEN PELVIS W CON, 02/27/2022, 18:11. FINDINGS: Image quality: Excellent. Lung bases: Small to moderate bilateral pleural effusions are seen, which are similar in size to the prior CT. Heart: No significant findings. ABDOMEN: Liver: Unremarkable. Gallbladder: Small gallstones versus vicarious excretion of contrast can be seen within the gallbladder. No additional CT findings of cholecystitis are seen. Biliary ducts: Unremarkable. Pancreas: Unremarkable. Spleen: Unremarkable. Incidental note is made of accessory splenules along the inferior aspect of the primary spleen. Adrenal Glands: Unremarkable. Kidneys and Ureters: Mild bilateral hydroureter and hydronephrosis can be seen, which is improved compared to the prior examination. The kidneys demonstrate normal size and enhance symmetrically. Areas of focal volume loss can be seen involving the right kidney. Stomach and Bowel: There is a prominent amount of stool seen throughout the colon, with mild distention. No significant gastric abnormality is seen. No dilated loops of small bowel are seen. Peritoneum: There is a mild amount of ascites seen. No pneumoperitoneum is seen. Ventral Wall: Generalized anasarca can be seen. Abdominal Nodes: No retroperitoneal or mesenteric adenopathy by size criteria. Vessels: Aorta and inferior vena cava are normal in size. PELVIS: Pelvic Organs: Unremarkable. Bladder: A Johnson catheter is seen within the bladder, with incomplete bladder emptying. Moderate bladder wall thickening is seen. Pelvic Nodes: No enlarged lymph nodes. Miscellaneous: No inguinal hernias are seen. Bones: Subacute fractures of the right pubis and the right inferior pubic ramus can be seen. A subacute fracture of the right sacral ala is also seen. No acute fractures are seen. IMPRESSION: There is a prominent amount of stool seen within the colon, which is consistent with constipation. Small to moderate bilateral pleural effusions are seen, similar to the prior. Improved bilateral hydronephrosis and hydroureter. There are areas of focal volume loss seen involving the right kidney. Please consider prior episodes of infarction or infection. Anasarca. Moderate bladder wall thickening is seen. Please consider UTI. A Johnson catheter is seen, with incomplete bladder emptying. Incidental note is made of: Gallstones versus vicarious excretion of contrast. Accessory splenules Subacute right sacral ala fracture Subacute fractures of the right pubis and right inferior pubic ramus Dictated by: Rasheed Tanner M.D. on 03/01/2022 at 23:30 Approved by: Rasheed Tanner M.D. on 03/01/2022 at 23:38 Discharge Plan Departure Patient Disposition: Home Clinical Impression: Hematoma Instructions: DI for Hematoma (Bruise) Activity Restrictions/Additional Instructions: *You have been diagnosed with [left calf hematoma, as we discuss the ultrasound shows no evidence of deep clot] *What to do: *Please continue to take your regular medications as directed. [ ] New medication prescriptions sent to your pharmacy: [ ] [ ] New medication written as a paper prescription [x ] No new medications given *Please follow up with your primary care provider in 2-3 days, call for an appointment. Let them know you were seen in the Emergency Department and that we ask that you be seen in follow up. We will electronically transmit a record of today's note if your PCP is in our system *If you do not have a primary care provider please contact the [facility] Resource line at [phone]. They will ask some questions about your medical history and help get you set up with a doctor in the community. *Return to Emergency Department if you should have any new, worsening or concerning symptoms Prescriptions: No Action hydrocodone-acetaminophen 5-325 mg tablet 1 tab PO Q4-6H PRN (Reason: pain) Qty: 10 0RF tramadol 50 mg tablet 50 mg PO Q6H Qty: 20 0RF ondansetron 4 mg tablet,disintegrating 4 mg PO Q6-8H PRN (Reason: nausea and vomiting) Qty: 10 0RF multivitamin [Daily Multivitamin] Tablet 1 tab PO DAILY alprazolam 0.5 mg tablet 0.5 mg PO BID PRN (Reason: Anxiety) Label Comments: take 1 tablet by mouth twice a day if needed Referrals: Elana Rees DO [Primary Care Provider] - Visit Report Forms: Patient Portal/API
== END 2022-03-01 23:41 | disposition home or self-care (01) ==
PROVIDERS: Emergency Provider Emergency Medicine; PCP Family Medicine
DX: S80.12XA Contusion of left lower leg, initial encounter (principal); R10.13 Epigastric pain; W21.07XA Struck by softball, initial encounter
CPT/HCPCS: 93971; 99281; 99283

== ENCOUNTER 2022-03-07 20:30 | Emergency (ER) | payer MEDICARE, OTHER, MEDICAID, SELFPAY ==
[2022-03-07 20:42] VITALS: BP 189/122; PULSE 77; RESP 16; TEMP 36.3; O2SAT 97; BMI 33.0
--- NOTE | 2022-03-08 01:06 | DI.US.S_ITS ---
PROCEDURE: US [facility] VENOUS LOW EXTREM RT INDICATIONS: RIGHT CALF PAIN AND SWELLING TECHNIQUE: Real-time imaging, as well as color and pulse Doppler interrogation, were performed of the lower extremity deep veins from the inguinal ligament to the popliteal fossa. COMPARISON: [facility], , [facility] VENOUS LOW EXTREM RT, 03/02/2022, 0:19. FINDINGS: The common femoral, femoral and popliteal veins are normally compressible, and free of intraluminal thrombus. Color and pulse Doppler demonstrate normal phasic intraluminal flow. There is normal augmentation response to distal compression maneuver. Within the right calf area of trauma, there is soft tissue edema with an ill-defined hypoechoic region in the muscle which may represent a hematoma. IMPRESSION: 1. No evidence of deep venous thrombosis in the right lower extremity. Dictated by: Paramjit Marr M.D. on 03/08/2022 at 2:13 Approved by: Paramjit Marr M.D. on 03/08/2022 at 2:14
--- NOTE | 2022-03-08 01:06 | ED.SKABFB ---
HPI - Skin/Abscess/Foreign Bdy General Chief complaint: Skin/Abscess/Foreign Body Stated complaint: rt leg pain s/p hit with a baseball Time Seen by Provider: 03/08/22 00:48 History of Present Illness HPI narrative: Patient complains right calf pain swelling and bruising. Patient did have ultrasound 6 days ago and negative for DVT. Patient states was playing baseball and a baseball hit her in the top part of the medial calf. No bony injury or pain. Since then has become more bruising and swelling and painful. No pain out of proportion to exam. Foot warm soft and pink. Strong pedal pulse. Patient was seen here at this emergency department. Related Data Home Medications Medication Instructions Recorded Confirmed Lisinopril/HCTZ (#PRINZIDE OFF 1 tab PO QDAY ##0 02/22/13 MARKET) alprazolam 1 mg tablet (Xanax) 1 mg PO PRN ##0 02/22/13 clonidine HCl 0.1 mg tablet 0.1 mg PO BID ##0 02/22/13 (Catapres) topiramate 200 mg tablet (Topamax) 200 mg PO Q DAY ##0 02/22/13 zolpidem 5 mg tablet 5 mg PO HS ##0 02/22/13 alprazolam 0.5 mg tablet 0.5 mg PO BID PRN Anxiety 08/13/21 08/13/21 multivitamin 1 tab PO DAILY 08/13/21 08/13/21 Previous Rx's Medication Instructions Recorded norethindrone acetate 1.5 1 tab PO Q DAY ##3 02/22/13 mg-ethinyl estradiol 30 mcg tablet (Loestrin) conjugated estrogens 1.25 mg 0 PO Q4H ##20 03/18/13 tablet (Premarin) hydrocodone 5 mg-acetaminophen 325 1 tab PO Q4-6H PRN pain #10 tabs 11/02/21 mg tablet ondansetron 4 mg disintegrating 4 mg PO Q6-8H PRN nausea and 11/27/21 tablet vomiting #10 tabs tramadol 50 mg tablet 50 mg PO Q6H #20 tabs 11/27/21 Allergies Allergy/AdvReac Type Severity Reaction Status Date / Time benzonatate Allergy Unknown Verified 03/04/22 08:42 [From Tessalon Perles] escitalopram [From Lexapro] Allergy Unknown Verified 03/04/22 08:42 NSAIDS (Non-Steroidal AdvReac Mild Verified 03/04/22 08:42 Anti-Inflamma From LEXAPRO AdvReac Unknown PSYCHOSIS Uncoded 03/04/22 08:42 HALLUCINATIONS Review of Systems Review of Systems Narrative: GENERAL: Denies chills, fatigue, malaise, fever, sweats. HEENT: Denies sinus pain, ear pain, sore throat RESPIRATORY: Denies dyspnea, cough CARDIOVASCULAR: Denies chest pain, palpitations GASTROINTESTINAL: Denies nausea, vomiting, abdominal pain : Denies dysuria, frequency, hematuria MUSCULOSKELETAL: Positive for muscle pain, negative for bony pain. SKIN: Denies rash, skin lesions, positive for color change NEUROLOGIC: Denies weakness, numbness ROS Unobtainable: All systems reviewed & are unremarkable except as noted in HPI and below Patient History Medical History Bipolar disorder Celiac disease GERD with apnea Hypertension Polycystic ovary disease Surgical History H/O gastric sleeve H/O oophorectomy History of appendectomy History of cholecystectomy Social History Smoking Status: Never smoker Smoking Status: Never smoker alcohol intake frequency: holidays/special occasions only Substance Use Type: does not use Exam Narrative Exam Narrative: GENERAL: in no distress, not toxic not dyspneic HEAD: Normocephalic. EYES: Pupils equal round No scleral icterus. EXTREMITIES: Patient in short, shoes and socks removed. Nontender right knee and ankle and foot. Foot warm soft and pink. There is a large ecchymosis to the medial upper half of the calf. Very tender to touch. It is soft on palpation to the entire calf. No pallor to the calf or skin. No pain out of proportion to exam. Light touch intact to surface of ecchymosis but patient states feels numbness and tingling to that skin area only. Patient able stand and bear weight and walk. BACK: No flank tenderness. NEURO: AOx4. SKIN: Warm and dry PSYCH: Not anxious, is cooperative Initial Vital Signs Initial Vital Signs: Vital Signs Temperature 97.3 F L 03/07/22 20:42 Pulse Rate 77 03/07/22 20:42 Respiratory Rate 16 03/07/22 20:42 Blood Pressure 189/122 H 03/07/22 20:42 Pulse Oximetry 97 03/07/22 20:42 Oxygen Delivery Method 03/07/22 20:42 Course Course Course Narrative: No new issues during course of stay Orders Ordered: ED Orders 03/08/22 01:06 US periph venous low extrem rt Stat Reevaluation(s) Reevaluation #1: Reviewed results with patient and my discussion with Orthopedic Dr. Ceballos. At this time he feels appropriate for office follow-up at 8:00 a.m.. It is currently 3:00 a.m.. In his office. Patient agrees with treatment plan. Time: 03:00 Consultations Consultation #1: Spoke with Dr. Ceballos, orthopedic on-call. He feels patient can be seen by him in 5 hours in his clinic at 8:00 a.m.. Patient to call office at 8:00 a.m. and inform staff that he is expecting her. Given symptoms and injury started 6 days ago. Does not need Chloride testing or MRI. Does not need to be transferred. He feels not need to come in to evaluate patient in the department at this time. Time: 02:45 Vital Signs Vital signs: Vital Signs - 8 hr 03/07/22 20:42 03/08/22 01:16 03/08/22 01:17 Temperature 97.3 F L Pulse Rate 77 Respiratory Rate 16 Blood Pressure 189/122 H 150/74 H Pulse Oximetry 97 95 Oxygen Delivery Method Room Air 03/08/22 01:17 Temperature Pulse Rate 60 Respiratory Rate Blood Pressure Pulse Oximetry 100 Oxygen Delivery Method Room Air MDM - Skin/Abscess/Foreign Bdy Differential Diagnosis Differential diagnosis: Likely other (DVT/SVT/compartment syndrome. /hematoma) Imaging Data US - DVT: Radiologist's Impression: [address] [address] Ultrasound Report Signed Patient: Janet Capellan MR#: [id number] : 1980 Acct:[id number] Age/Sex: 41 / F Date of Service: 03/08/22 Loc: ED Accession Number: [id number] ?? Procedure: US periph venous low extrem rt Ordering Provider: Nash Desir MD PROCEDURE:? US PERIPH VENOUS LOW EXTREM RT ? INDICATIONS:? RIGHT CALF PAIN AND SWELLING ? TECHNIQUE:? Real-time imaging, as well as color and pulse Doppler interrogation, were performed of the lower extremity deep veins from the inguinal ligament to the popliteal fossa.? ? COMPARISON:? [facility], , PERIPH VENOUS LOW EXTREM RT, 03/02/2022, 0:19. ? FINDINGS:? The common femoral, femoral and popliteal veins are normally compressible, and free of intraluminal thrombus.? Color and pulse Doppler demonstrate normal phasic intraluminal flow.? There is normal augmentation response to distal compression maneuver. ? ? Within the right calf area of trauma, there is soft tissue edema with an ill-defined hypoechoic region in the muscle which may represent a hematoma. ? IMPRESSION:? ? 1.? No evidence of deep venous thrombosis in the right lower extremity. ? ? Dictated by: Paramjit Marr M.D. on 03/08/2022 at 2:13 ? ? Approved by: Paramjit Marr M.D. on 03/08/2022 at 2:14 ? MDM Narrative Medical decision making narrative: Patient be seen by Dr. Ceballos or his partners at 8:00 a.m., in about 5 hours. I did express my concern to Dr. Ceballos regarding compartment syndrome. At this time he feels patient progression over the past week and ambulating likely not compartment syndrome. Patient can be evaluated in the office this morning. Return precautions reviewed with patient and and I did go over with patient regarding compartment syndrome and return precautions. She desires discharge home and is comfortable with plan. Discharge Plan Departure Patient Disposition: Home Clinical Impression: Hematoma Instructions: DI for Hematoma (Bruise) Activity Restrictions/Additional Instructions: Call Dr. Villatoro office this morning in 5 hours at 8:00 a.m. and informed that he is expecting you to be seen by 1 of his partners in the office in [place] or if needed he will see you in his clinic in [place]. Return if worse or for any questions or concerns Prescriptions: No Action clonidine HCl [Catapres] 0.1 MG tablet 0.1 mg PO BID Qty: 0 Lisinopril/HCTZ (#PRINZIDE OFF MARKET) 1 tab PO QDAY Qty: 0 topiramate [Topamax] 200 MG tablet 200 mg PO Q DAY Qty: 0 zolpidem 5 MG tablet 5 mg PO HS Qty: 0 alprazolam [Xanax] 1 MG tablet 1 mg PO PRN Qty: 0 norethindrone ac-eth estradiol [Loestrin 1.5/30 (21)] 1.5 MG/30 MCG tablet 1 tab PO Q DAY Qty: 3 2RF conjugated estrogens [Premarin] 1.25 MG tablet 0 PO Q4H Qty: 20 0RF hydrocodone-acetaminophen 5-325 mg tablet 1 tab PO Q4-6H PRN (Reason: pain) Qty: 10 0RF tramadol 50 mg tablet 50 mg PO Q6H Qty: 20 0RF ondansetron 4 mg tablet,disintegrating 4 mg PO Q6-8H PRN (Reason: nausea and vomiting) Qty: 10 0RF multivitamin [Daily Multivitamin] Tablet 1 tab PO DAILY alprazolam 0.5 mg tablet 0.5 mg PO BID PRN (Reason: Anxiety) Label Comments: take 1 tablet by mouth twice a day if needed Referrals: Elana Rees DO [Primary Care Provider] - Visit Report Forms: Patient Portal/API
[2022-03-08 01:16] VITALS: O2SAT 95
[2022-03-08 01:17] VITALS: BP 150/74; PULSE 60; O2SAT 100
[2022-03-08 03:00] VITALS: BP 165/81; PULSE 75; RESP 20; O2SAT 99
== END 2022-03-08 03:01 | disposition home or self-care (01) ==
PROVIDERS: Emergency Provider Emergency Medicine; PCP Family Medicine
DX: S80.11XA Contusion of right lower leg, initial encounter (principal); M79.89 Other specified soft tissue disorders; X58.XXXA Exposure to other specified factors, initial encounter
CPT/HCPCS: 73718; 93971; 99281; 99283

== ENCOUNTER → 2022-03-08 14:22 | Outpatient (CLI) | payer MEDICARE, OTHER, MEDICAID, SELFPAY ==
--- NOTE | 2022-03-08 | DI.MRI.S_ITS ---
PROCEDURE: MR LOWER LEG RT WO CON INDICATIONS: Contusion of right lower leg/eval traumatic LE inj TECHNIQUE: Noncontrast coronal and sagittal T1 spin echo and STIR; axial T1 spin echo and T2 fast spin echo with fat saturation through the right lower leg. COMPARISON: None. FINDINGS: Image quality: Excellent. Bones: The visualized bone marrow demonstrates normal signal on all sequences. The overlying cortex appears intact. No fractures lines or intra-osseous lesions. Soft tissues: The scanned muscles demonstrate normal overall bulk and internal signal. There is significant subcutaneous soft tissue edema and swelling involving anterior and medial aspect of proximal to mid lower leg. No discrete drainable fluid collection is seen. IMPRESSION: 1. No marrow edema. No fracture or dislocation. No suspicious intraosseous lesion. 2. Significant soft tissue swelling and edema involving anterior and medial aspect of proximal to mid lower leg suggestive of soft tissue contusion. No discrete drainable fluid collection is seen. 3. No muscle signal abnormality is seen in right lower leg. Dictated by: Navarro Ceballos M.D. on 03/08/2022 at 16:06 Approved by: Navarro Ceballos M.D. on 03/08/2022 at 16:08
== END ==
PROVIDERS: Referring Provider Orthopaedic Surgery Orthopaedic Surgery of the Spine; Visit Provider Orthopaedic Surgery Orthopaedic Surgery of the Spine
DX: S80.11XA Contusion of right lower leg, initial encounter (principal); M79.89 Other specified soft tissue disorders; X58.XXXA Exposure to other specified factors, initial encounter
CPT/HCPCS: 73718

== ENCOUNTER 2022-05-22 18:48 | Inpatient (IN) | payer MEDICARE, OTHER, MEDICAID, SELFPAY ==
[2022-05-22 19:07] VITALS: BP 149/89; PULSE 119; RESP 24; TEMP 37.3; O2SAT 100
--- NOTE | 2022-05-22 19:55 | PC.NURSE ---
Patient seen at [facility] yesterday offered admission for intractable vomiting, Declined due to history of similar issues I figured I was just going to vomit till all the bile is gone but his is going on longer than normal
[2022-05-22 20:24] LABS: Add Manual Diff / Slide Review NO; Basophils Absolute Auto 0 /uL (0-100); Basophils Percent Auto 0.2 % (0-2); Eosinophils Absolute Auto 0 /uL (0-450); Hematocrit 41.7 % (36-46); Lymphocytes Absolute Auto 2100 /uL (1100-4500); Lymphocytes Percent Auto 10.8 % (25-40); Mean Corpuscular HGB Conc 33.7 % (30-36); Mean Corpuscular Hemoglobin 28.5 PG (26-34); Mean Corpuscular Volume 84.6 fL (80-100); Monocytes Absolute Auto 1500 /uL (0-900); Monocytes Percent Auto 7.6 % (3-14); Neutrophils Absolute Auto 16000 /uL (1500-7000); Neutrophils Percent Auto 81.4 % (50-75); Platelet Count 382 X10^3/uL (150-400); Red Blood Cell Count 4.93 X10^6/uL (4.0-5.2); Red Cell Distribution Width 13.3 % (11.6-14.8); White Blood Cell Count 19.6 X10^3/uL (4.5-11.0)
[2022-05-22] MEDS: ONDANSETRON 4 MG/2 ML INJ IV (20:25)
[2022-05-22] MEDS: SODIUM CHLORIDE 0.9% 1,000 ML 1000 ML IV (20:25)
[2022-05-22 20:37] LABS: Alanine Aminotransferase 21 IU/L (<35); Albumin Globulin Ratio 1.4 (1.0-2.8); Alkaline Phosphatase 66 U/L (38-126); Aspartate Aminotransferase 23 IU/L (14-36); BUN Creatinine Ratio 15.5 (6-22); Bilirubin Total 1.8 mg/dL (0.2-1.3); Blood Urea Nitrogen 11 mg/dL (7-17); Calcium 9.5 mg/dL (8.4-10.2); Carbon Dioxide 21 mmol/L (22-32); Chloride 103 mmol/L (98-107); Estimated Glomerular Filt Rate > 60 mL/min (>60); Globulin 3.5 g/dL (1.7-4.1); Glucose 168 mg/dL (70-100); HEMOLYSIS < 15 (0-50); Lactate (Lactic Acid) 3.5 mmol/L (0.7-2.1); Lipase 114 U/L (23-300); Potassium 3.2 mmol/L (3.4-5.1); Sodium 141 mmol/L (137-145); Total Protein 8.5 g/dL (6.3-8.2)
--- NOTE | 2022-05-22 21:16 | ED_ITS ---
HPI - Nausea/Vomiting/Diarrhea General Chief complaint: Nausea/Vomiting/Diarrhea Stated complaint: vomitting Time Seen by Provider: 05/22/22 20:13 Source: patient Mode of arrival: Ambulatory Limitations: no limitations History of Present Illness HPI Narrative: 41-year-old female with history of hypertension, celiac disease, prior gastric sleeve, cholecystectomy, hysterectomy, oophorectomy on 1 side. Patient states she is had 1 prior episode remotely where she had persistent vomiting with bile. She is thought she was having biliary reflux. This most recent episode started on Friday the , patient has been having vomiting since then she is been unable to keep fluids down. She was seen at [facility] had lab work she she had a CT but not noted in the paperwork. And was offered observation but preferred to return home. She is persistent having vomiting. She denies fevers or chills. Denies chest pain or shortness of breath. She is abdominal cramping just before she vomits which then improved but is quite painful in her mid abdomen and lower abdomen. Patient states she is been having persistent diarrhea but that is normal for her. No black or bloody stools. No dysuria, urgency or frequency. No flank pain. No new vaginal bleeding or discharge. Patient states she takes HCTZ and alprazolam. She states she is had marijuana but very infrequently none recently. No tobacco, no alcohol. Patient's labs from [facility] show a nitrate positive UA patient states that she was contacted over the phone after discharge and told she might have a bladder infection and was offered antibiotics but had not been started on them. Related Data Home Medications Medication Instructions Recorded Confirmed alprazolam 0.5 mg tablet 0.5 mg PO BID PRN Anxiety 08/13/21 05/23/22 hydrochlorothiazide 12.5 mg PO DAILY 05/23/22 05/23/22 Previous Rx's Medication Instructions Recorded ondansetron 4 mg disintegrating 4 mg PO Q6-8H PRN nausea and 11/27/21 tablet vomiting #10 tabs Allergies Allergy/AdvReac Type Severity Reaction Status Date / Time benzonatate Allergy Unknown Verified 03/04/22 08:42 [From Tessalon Perles] escitalopram [From Lexapro] Allergy Unknown Verified 03/04/22 08:42 NSAIDS (Non-Steroidal AdvReac Mild Verified 03/04/22 08:42 Anti-Inflamma From LEXAPRO AdvReac Unknown PSYCHOSIS Uncoded 03/04/22 08:42 HALLUCINATIONS Review of Systems Review of Systems ROS Unobtainable: All systems reviewed & are unremarkable except as noted in HPI and below Patient History Medical History Bipolar disorder Celiac disease GERD with apnea Hypertension Polycystic ovary disease Surgical History H/O gastric sleeve H/O oophorectomy History of appendectomy History of cholecystectomy Social History Smoking Status: Never smoker alcohol intake: current Smoking Status: Never smoker alcohol intake frequency: holidays/special occasions only Substance Use Type: does not use Exam Narrative Exam Narrative: GENERAL: Alert and oriented x three, female in [id number] distress. HEENT: Head normocephalic, atraumatic, EOMI, pupils reactive, face symmetric, moist mucous membranes NECK: Supple, full range of motion CARDIOVASCULAR: Regular rate and rhythm without murmurs, rubs or gallops. RESPIRATORY: Breath sounds equal bilaterally, no wheezes rales or rhonchi. ABDOMEN: Soft, nontender. Normoactive bowel sounds all 4 quadrants. No guarding or rebound, rigidity, no mass, nondistended. Patient dry heaving intermittently and goes to the bathroom to vomit. : No CVA tenderness EXTREMITIES: Normal range of motion, no clubbing or edema. Neurovascularly intact NEUROLOGICAL: Cranial nerves II through XII grossly intact. Moving all extremities SKIN: Warm, dry, no petechiae, no rashes or lesions. Initial Vital Signs Initial Vital Signs: Vital Signs Temperature 99.1 F 05/22/22 19:07 Pulse Rate 119 H 05/22/22 19:07 Respiratory Rate 24 05/22/22 19:07 Blood Pressure 149/89 H 05/22/22 19:07 Pulse Oximetry 100 05/22/22 19:07 Oxygen Delivery Method 05/22/22 19:07 Course Orders Ordered: ED Orders 05/22/22 20:00 Complete Blood Count AUTO DIFF Stat Comprehensive Metabolic Panel Stat Lactate (Lactic Acid) Stat Lipase Stat 05/22/22 20:50 Blood Culture Stat 05/22/22 21:16 CT abdomen pelvis w con Stat 05/22/22 21:48 COVID19 -Nasal RAPID/Pre-Proc Stat 05/23/22 03:55 Urinalysis and Microscopic Stat 05/23/22 05:00 Basic Metabolic Panel Routine Complete Blood Count AUTO DIFF Routine Hepatic (Liver) Panel Routine Acetaminophen (Acetaminophen 325 Mg Tablet) 650 mg PO Q6HR PRN PRN Reason: Fever/Mild Pain (1-3) Heparin Sodium (Porcine) (Heparin 5,000 Unit/Ml Vial) 5,000 unit SUBCUT BID ON LICENSE OF [facility] Ceftriaxone Sodium 2,000 mg/ (Sodium Chloride) 100 mls @ 200 mls/hr IV Q24H ON LICENSE OF [facility] Metoclopramide HCl (Metoclopramide 10 Mg/2 Ml Inj) 10 mg IV Q6HR BENITO Last Admin: 05/23/22 00:50 Dose: 10 mg Documented By: Morphine Sulfate (Morphine 2 Mg/Ml Inj) 2 mg IV Q4HR PRN PRN Reason: Pain, Moderate (4-6) Last Admin: 05/23/22 00:57 Dose: 2 mg Documented By: Ondansetron HCl (Ondansetron 4 Mg/2 Ml Inj) 4 mg IV Q8HR PRN PRN Reason: Nausea And Vomiting Last Admin: 05/23/22 04:05 Dose: 4 mg Documented By: Pantoprazole Sodium (Pantoprazole 40 Mg Vial) 40 mg IV BID BENITO Last Admin: 05/23/22 00:50 Dose: 40 mg Documented By: Discontinued Medications Diphenhydramine HCl (Diphenhydramine 50 Mg/Ml Vial) 50 mg IV NOW ONE Stop: 05/23/22 00:02 Last Admin: 05/22/22 22:55 Dose: 50 mg Documented By: MARY LOU Sodium Chloride (Normal Saline 0.9%) 1,000 mls @ 1,000 mls/hr IV BOLUS ONE Stop: 05/22/22 21:12 Last Infusion: 05/22/22 23:49 Dose: 0 mls/hr Documented By: Admin: 05/22/22 20:25 Dose: 1,000 mls/hr Documented By: GIBRAN Ceftriaxone Sodium 2,000 mg/ (Sodium Chloride) 100 mls @ 200 mls/hr IV NOW ONE Stop: 05/22/22 21:16 Last Infusion: 05/22/22 23:06 Dose: 0 mls/hr Documented By: Admin: 05/22/22 21:33 Dose: 200 mls/hr Documented By: GIBRAN Sodium Chloride (Normal Saline 0.9%) 2,109.21 mls @ 703.07 mls/hr 30 ml/kg infuse over 3 hr (2109.21 ml) IV NOW ONE Stop: 05/23/22 00:15 Last Infusion: 05/23/22 01:37 Dose: 0 mls/hr Documented By: Infusion: 05/23/22 01:05 Dose: 703.07 mls/hr Documented By: Infusion: 05/22/22 23:50 Dose: 703.07 mls/hr Documented By: Admin: 05/22/22 23:20 Dose: 703.07 mls/hr Documented By: GIBRAN Lorazepam (Lorazepam 2 Mg/Ml Inj) 1 mg IV NOW ONE Stop: 05/22/22 21:16 Last Admin: 05/22/22 21:31 Dose: 1 mg Documented By: GIBRAN Ondansetron HCl (Ondansetron 4 Mg/2 Ml Inj) 4 mg IV NOW ONE Stop: 05/22/22 20:14 Last Admin: 05/22/22 20:25 Dose: 4 mg Documented By: GIBRAN Vital Signs Vital signs: Vital Signs - 8 hr 05/22/22 19:07 Temperature 99.1 F Pulse Rate 119 H Respiratory Rate 24 Blood Pressure 149/89 H Pulse Oximetry 100 Oxygen Delivery Method Room Air MDM - Nausea/Vomiting/Diarrhea Lab Data Result diagrams: 05/22/22 20:00 05/22/22 20:00 Labs: Lab Results 05/22/22 05/22/22 05/22/22 Range/Units 20:00 20:00 20:00 WBC 19.6 H (4.5-11.0) X10^3/uL RBC 4.93 (4.0-5.2) X10^6/uL Hgb 14.0 (12.0-16.0) g/dL Hct 41.7 (36-46) % MCV 84.6 (80-100) fL MCH 28.5 (26-34) PG MCHC 33.7 (30-36) % RDW 13.3 (11.6-14.8) % Plt Count 382 (150-400) X10^3/uL Neut % (Auto) 81.4 H (50-75) % Lymph % (Auto) 10.8 L (25-40) % [place] % (Auto) 7.6 (3-14) % Eos % (Auto) 0.0 L (2-4) % Baso % (Auto) 0.2 (0-2) % Neut # (Auto) 70846 H (3128-6877) /uL Lymph # (Auto) 2100 (0878-9618) /uL [place] # (Auto) 1500 H (0-900) /uL Eos # (Auto) 0 (0-450) /uL Baso # (Auto) 0 (0-100) /uL Sodium 141 (137-145) mmol/L Potassium 3.2 L (3.4-5.1) mmol/L Chloride 103 (98-107) mmol/L Carbon Dioxide 21 L (22-32) mmol/L BUN 11 (7-17) mg/dL Creatinine 0.71 (0.52-1.04) mg/dL Estimated GFR > 60 (>60) mL/min BUN/Creatinine Ratio 15.5 (6-22) Glucose 168 H (70-100) mg/dL Lactate 3.5 H (0.7-2.1) mmol/L Calcium 9.5 (8.4-10.2) mg/dL Total Bilirubin 1.8 H (0.2-1.3) mg/dL AST 23 (14-36) IU/L ALT 21 (<35) IU/L Alkaline Phosphatase 66 (38-126) U/L Total Protein 8.5 H (6.3-8.2) g/dL Albumin 5.0 (3.5-5.0) g/dL Globulin 3.5 (1.7-4.1) g/dL Albumin/Globulin Ratio 1.4 (1.0-2.8) Lipase 114 (23-300) U/L Serum , Qual SARS-CoV-2 (PCR) (Negative) 05/22/22 05/22/22 05/22/22 Range/Units 20:00 21:48 22:39 WBC (4.5-11.0) X10^3/uL RBC (4.0-5.2) X10^6/uL Hgb (12.0-16.0) g/dL Hct (36-46) % MCV (80-100) fL MCH (26-34) PG MCHC (30-36) % RDW (11.6-14.8) % Plt Count (150-400) X10^3/uL Neut % (Auto) (50-75) % Lymph % (Auto) (25-40) % [place] % (Auto) (3-14) % Eos % (Auto) (2-4) % Baso % (Auto) (0-2) % Neut # (Auto) (0999-8643) /uL Lymph # (Auto) (7272-5307) /uL [place] # (Auto) (0-900) /uL Eos # (Auto) (0-450) /uL Baso # (Auto) (0-100) /uL Sodium (137-145) mmol/L Potassium (3.4-5.1) mmol/L Chloride (98-107) mmol/L Carbon Dioxide (22-32) mmol/L BUN (7-17) mg/dL Creatinine (0.52-1.04) mg/dL Estimated GFR (>60) mL/min BUN/Creatinine Ratio (6-22) Glucose (70-100) mg/dL Lactate 2.1 (0.7-2.1) mmol/L Calcium (8.4-10.2) mg/dL Total Bilirubin (0.2-1.3) mg/dL AST (14-36) IU/L ALT (<35) IU/L Alkaline Phosphatase (38-126) U/L Total Protein (6.3-8.2) g/dL Albumin (3.5-5.0) g/dL Globulin (1.7-4.1) g/dL Albumin/Globulin Ratio (1.0-2.8) Lipase (23-300) U/L Serum , Qual Cancelled SARS-CoV-2 (PCR) Negative (Negative) Imaging Data CT scan - abdomen/pelvis: Radiologist's Impression: Close Abdomen/Pelvis CT (Signed) Paramjit Marr - 05/22/22 Vascular Ultrasound (Signed) Paramjit Marr - 03/08/22 Lower Extremity MRI (Signed) Navarro Ceballos - 03/08/22 Vascular Ultrasound (Signed) Rasheed Tanner - 03/01/22 Pelvis Ultrasound (Signed) Rasheed Tanner - 11/27/21 Knee X-Ray (Signed) Chase Steele - 11/02/21 Abdomen/Pelvis CT (Signed) ScarletSabasanjelica - 08/16/21 Launch?[address] [address] [address] Scan Report Signed Patient: Janet Capellan MR#: [id number] : 1980 Acct:[id number] Age/Sex: 41 / F Date of Service: 05/22/22 Loc: ED Accession Number: [id number] ?? Procedure: CT abdomen pelvis w con Ordering Provider: Karen Milan D.O. PROCEDURE:? CT ABDOMEN PELVIS W CON ? INDICATIONS:? vomiting, ?pyelo ? TECHNIQUE:? After the administration of IV contrast, axial sections were acquired from the lung bases to the pubic symphysis.? Coronal and sagittal reformats were performed.? For radiation dose reduction, the following was used:? automated exposure control, adjustment of mA and/or kV according to patient size. ? COMPARISON:? [facility], CT, CT ABDOMEN PELVIS WITH CONTRAST, 05/20/2022, 18:01. ? FINDINGS:? Image quality:? Excellent.? ? Lung bases:? Unremarkable.? ? Heart:? Heart is normal in size.? There is a small hiatal hernia. ? ? ABDOMEN: Liver:? There is focal fatty infiltration in the anterior left hepatic lobe along the falciform ligament.? Gallbladder:? Surgically absent Biliary ducts:? No biliary ductal dilatation.? ? Pancreas:? Unremarkable.? ? Spleen:? Normal in size.? A large cyst is redemonstrated within the spleen measuring up to 4.8 cm with small foci of peripheral calcifications.? The findings likely represent sequelae of prior infection. Adrenal Glands:? No adrenal nodules.? ? Kidneys and Ureters:? No hydronephrosis.? The kidneys demonstrate normal and symmetric enhancement bilaterally without perinephric fat stranding or fluid collections. ? ? Stomach and Bowel:? Postsurgical changes are redemonstrated along the stomach consistent with prior gastric sleeve procedure.? Stomach, small bowel loops, and colon are normal in caliber and wall thickness.? The appendix is surgically absent.? There is colonic diverticulosis without acute diverticulitis.? Peritoneum:? No abnormal intraperitoneal fluid.? No free air.? ? Ventral Wall: ? No hernia.? Abdominal Nodes:? No retroperitoneal or mesenteric adenopathy by size criteria.? Vessels:? Aorta and inferior vena cava are normal in size.? ? PELVIS: Pelvic Organs:? The uterus is surgically absent.? ? Bladder:? The urinary bladder is partially distended.? No definite bladder wall thickening or urinary stones. Pelvic Nodes: No enlarged lymph nodes.? Miscellaneous: No inguinal hernias are seen. ? ? ? Bones:? Visualized osseous structures demonstrate no suspicious focal lesions. ? IMPRESSION:? ? 1. No definite acute intra-abdominal abnormality.? Specifically, no CT evidence of pyelonephritis. ? 2. Large cyst with scattered foci of wall calcifications redemonstrated within the spleen likely representing sequelae of prior infection. ? 3. Colonic diverticulosis without acute diverticulitis.? ? ? Dictated by: Paramjit Marr M.D. on 05/22/2022 at 22:10 ? ? Approved by: Paramjit Marr M.D. on 05/22/2022 at 22:14?? [facility] Narrative Medical decision making narrative: 41-year-old female with persistent nausea and vomiting with intermittent abdominal pain since Friday. Patient was found to have a nitrite positive you a on 05/20/2022 she has not been treated with antibiotics although she is not having urinary symptoms or flank pain suspect maybe pyelonephritis. She is tachycardic, afebrile here she is not hypotensive. 30 cc/kilos fluid bolus, patient started on antibiotics but does need urine sample. Lactate was elevated white count is elevated. Because of persistent vomiting CT abdomen pelvis was obtained shows a large cyst in the spleen but not other source of infection, obstruction. Discussed with hospitalist patient has had persistent vomiting with mild hypokalemia and multiple doses of IV anti nausea medications without resolution. Patient has had some fluids but still has not had any urine output likely secondary to dehydration. Discussed with hospitalist who accepts for inpatient admission. Critical Care Time Critical Care Time Attestation: The high probability of a clinically significant, sudden or life threatening deterioration of the [cardiac] system(s) required my full and direct attention, intervention and personal management. The aggregate critical care time was [] minutes. This time is in addition to time spent performing reported procedures but includes the following: [x] Data Review and interpretation [x] Patient assessment and monitoring of vital signs [x] Documentation [x] Medication orders and management Discharge Plan Departure Patient Disposition: Admitted As Inpatient Clinical Impression: Sepsis secondary to UTI, Hypokalemia, Vomiting, Elevated bilirubin Admit Date/Time: 05/22/22 23:19 Admit Provider: Ciaran Kruger
--- NOTE | 2022-05-22 21:16 | DI.CT.S_ITS ---
PROCEDURE: CT ABDOMEN PELVIS W CON INDICATIONS: vomiting, ?pyelo TECHNIQUE: After the administration of IV contrast, axial sections were acquired from the lung bases to the pubic symphysis. Coronal and sagittal reformats were performed. For radiation dose reduction, the following was used: automated exposure control, adjustment of mA and/or kV according to patient size. COMPARISON: [facility], CT, CT ABDOMEN PELVIS WITH CONTRAST, 05/20/2022, 18:01. FINDINGS: Image quality: Excellent. Lung bases: Unremarkable. Heart: Heart is normal in size. There is a small hiatal hernia. ABDOMEN: Liver: There is focal fatty infiltration in the anterior left hepatic lobe along the falciform ligament. Gallbladder: Surgically absent Biliary ducts: No biliary ductal dilatation. Pancreas: Unremarkable. Spleen: Normal in size. A large cyst is redemonstrated within the spleen measuring up to 4.8 cm with small foci of peripheral calcifications. The findings likely represent sequelae of prior infection. Adrenal Glands: No adrenal nodules. Kidneys and Ureters: No hydronephrosis. The kidneys demonstrate normal and symmetric enhancement bilaterally without perinephric fat stranding or fluid collections. Stomach and Bowel: Postsurgical changes are redemonstrated along the stomach consistent with prior gastric sleeve procedure. Stomach, small bowel loops, and colon are normal in caliber and wall thickness. The appendix is surgically absent. There is colonic diverticulosis without acute diverticulitis. Peritoneum: No abnormal intraperitoneal fluid. No free air. Ventral Wall: No hernia. Abdominal Nodes: No retroperitoneal or mesenteric adenopathy by size criteria. Vessels: Aorta and inferior vena cava are normal in size. PELVIS: Pelvic Organs: The uterus is surgically absent. Bladder: The urinary bladder is partially distended. No definite bladder wall thickening or urinary stones. Pelvic Nodes: No enlarged lymph nodes. Miscellaneous: No inguinal hernias are seen. Bones: Visualized osseous structures demonstrate no suspicious focal lesions. IMPRESSION: 1. No definite acute intra-abdominal abnormality. Specifically, no CT evidence of pyelonephritis. 2. Large cyst with scattered foci of wall calcifications redemonstrated within the spleen likely representing sequelae of prior infection. 3. Colonic diverticulosis without acute diverticulitis. Dictated by: Paramjit Marr M.D. on 05/22/2022 at 22:10 Approved by: Paramjit Marr M.D. on 05/22/2022 at 22:14
[2022-05-22] MEDS: LORazepam 2 MG/ML INJ 1 MG IV (21:31)
[2022-05-22] MEDS: cefTRIAXone 2,000 MG in SODIUM CHLORIDE 0.9% 100 ML 200 MG IV (21:33)
[2022-05-22 22:07] LABS: COVID19 -Nasal RAPID Negative (Negative)
[2022-05-22 22:19] LABS: Reflexed Lactate in 2 Hours Y
[2022-05-22 22:55] LABS: Lactate 2HR (Lactic Acid Rflx) 2.1 mmol/L (0.7-2.1)
[2022-05-22] MEDS: diphenhydrAMINE 50 MG/ML VIAL IV (22:55)
[2022-05-22] MEDS: SODIUM CHLORIDE 0.9% 2,109.21 ML 703.07 ML IV (23:20)
--- NOTE | 2022-05-22 23:32 | PM.HP.1 ---
History of Present Illness History of Present Illness Date Patient Seen: 05/22/22 Time Patient Seen: 23:00 Chief complaint: vomitting Narrative: Ms Crum is a 41W with PMH HTN, celiac, hx gastric sleeve, cholecystectomy who presents with abdominal pain, nausea, and vomiting. She has had a sleeve gastrectomy in 2017, she has had nausea and vomiting previously and was told it was possibly bile reflux. Her last EGD/colo she thinks was 1 year ago which she states showed no acute process, no ulcers, as far as she could recall. She developed nausea and vomiting on Sunday 05/20, she presented to [facility] and was ultmiately discharged home, though offered observation. She did have UA done which showed positive nitrates, urine culture pending. She did not receive antibiotics. Today she feels much worse with more frequent nausea and vomiting. She has chronic diarrhea. No black/bloody stools. She is careful not to have gluten. In the ED workup was done, vital notable afebrile, hr 110s, tachypneic. Labs notable for WBC 19.6, hgb 14. Na 141, k 3.2, creatinine 0.71. Lactate 3.5->2.1. Bilirubin 1.8. COVID negative. CT abdomen showed chronic splenic cyst, with no acute process. She was ordered for IV fluids and antibiotics and symptomatic treatmen tfor nausea. She was admitted for further treatment. Family history: Mother with IBS Patient History Medical History Bipolar disorder Celiac disease GERD with apnea Hypertension Polycystic ovary disease Surgical History H/O gastric sleeve H/O oophorectomy History of appendectomy History of cholecystectomy Family & Social History Tobacco & Substance use: Smoking Status Never smoker alcohol intake frequency holiday/special occasion Substance Use Type does not use Meds Home Medications and Allergies Home Medications Medication Instructions Recorded Confirmed Type Lisinopril/HCTZ (#PRINZIDE OFF 1 tab PO QDAY ##0 02/22/13 History MARKET) alprazolam 1 mg tablet (Xanax) 1 mg PO PRN ##0 02/22/13 History clonidine HCl 0.1 mg tablet 0.1 mg PO BID ##0 02/22/13 History (Catapres) norethindrone acetate 1.5 1 tab PO Q DAY ##3 02/22/13 Rx mg-ethinyl estradiol 30 mcg tablet (Loestrin) topiramate 200 mg tablet (Topamax) 200 mg PO Q DAY ##0 02/22/13 History zolpidem 5 mg tablet 5 mg PO HS ##0 02/22/13 History conjugated estrogens 1.25 mg 0 PO Q4H ##20 03/18/13 Rx tablet (Premarin) alprazolam 0.5 mg tablet 0.5 mg PO BID PRN Anxiety 08/13/21 08/13/21 History multivitamin 1 tab PO DAILY 08/13/21 08/13/21 History hydrocodone 5 mg-acetaminophen 325 1 tab PO Q4-6H PRN pain #10 tabs 11/02/21 Rx mg tablet ondansetron 4 mg disintegrating 4 mg PO Q6-8H PRN nausea and 11/27/21 Rx tablet vomiting #10 tabs tramadol 50 mg tablet 50 mg PO Q6H #20 tabs 11/27/21 Rx Allergies Allergy/AdvReac Type Severity Reaction Status Date / Time benzonatate Allergy Unknown Verified 03/04/22 08:42 [From Tessalon Perles] escitalopram [From Lexapro] Allergy Unknown Verified 03/04/22 08:42 NSAIDS (Non-Steroidal AdvReac Mild Verified 03/04/22 08:42 Anti-Inflamma From LEXAPRO AdvReac Unknown PSYCHOSIS Uncoded 03/04/22 08:42 HALLUCINATIONS Exam Vital Signs (past 8 hours): - 05/22/22 19:07 Temperature 99.1 F Pulse Rate 119 H Respiratory Rate 24 Blood Pressure 149/89 H Pulse Oximetry 100 Oxygen Delivery Method Room Air Oxygen Delivery Method Room Air Narrative Exam Narrative: GEN: distressed, naueous and vomiting HEENT: dry mucous membranes, PERRL NECK: trachea midline, no JVD PULM: clear bilaterally, no wheezes, rhonchi, rales ABD: soft, nontender, no rebound/guarding, normal bowel sounds CV: tachycardic, no murmurs EXT: warm and well perfused with no edema NEURO: awake, alert, oriented, no focal deficits Objective Labs Result Diagrams: 05/22/22 20:00 05/22/22 20:00 Labs: Laboratory Results - last 24 hr 05/22/22 05/22/22 05/22/22 20:00 20:00 20:00 WBC 19.6 H RBC 4.93 Hgb 14.0 Hct 41.7 MCV 84.6 MCH 28.5 MCHC 33.7 RDW 13.3 Plt Count 382 Neut % (Auto) 81.4 H Lymph % (Auto) 10.8 L [place] % (Auto) 7.6 Eos % (Auto) 0.0 L Baso % (Auto) 0.2 Neut # (Auto) 91242 H Lymph # (Auto) 2100 [place] # (Auto) 1500 H Eos # (Auto) 0 Baso # (Auto) 0 Sodium 141 Potassium 3.2 L Chloride 103 Carbon Dioxide 21 L BUN 11 Creatinine 0.71 Estimated GFR > 60 BUN/Creatinine Ratio 15.5 Glucose 168 H Lactate 3.5 H Calcium 9.5 Total Bilirubin 1.8 H AST 23 ALT 21 Alkaline Phosphatase 66 Total Protein 8.5 H Albumin 5.0 Globulin 3.5 Albumin/Globulin Ratio 1.4 Lipase 114 Serum , Qual SARS-CoV-2 (PCR) 05/22/22 05/22/22 05/22/22 20:00 21:48 22:39 WBC RBC Hgb Hct MCV MCH MCHC RDW Plt Count Neut % (Auto) Lymph % (Auto) [place] % (Auto) Eos % (Auto) Baso % (Auto) Neut # (Auto) Lymph # (Auto) [place] # (Auto) Eos # (Auto) Baso # (Auto) Sodium Potassium Chloride Carbon Dioxide BUN Creatinine Estimated GFR BUN/Creatinine Ratio Glucose Lactate 2.1 Calcium Total Bilirubin AST ALT Alkaline Phosphatase Total Protein Albumin Globulin Albumin/Globulin Ratio Lipase Serum , Qual Cancelled SARS-CoV-2 (PCR) Negative Assessment & Plan Assessment & Plan narrative: Ms. Capellan is a 41W with H sleeve gastrectomy who presents nausea, vomiting found to have sepsis from UTI. 1. Sepsis from UTI with elevated bilirubin and vomiting -initial WBC 19.6, lactate 3.5, tachycardic -patient vomiting and unable to tolerate POs, requires antibiotics -has elevated bilirubin, hepatic dysfunction presumed secondary to sepsis -ordered for IV fluids and antibiotics in ED -lactate improved to 2.1, and tachycardia improved -continue ceftriaxone 2gm daily, and IV fluids -await repeat urinalysis 2. Persistent nausea and vomiting -etiology is possibly secondary to UTI, vs GERD, vs biliary gastritis, vs post gastrectomy stricture -CT abdomen with no acute process -NPO for now -continue IV zofran -IV morphine for pain -IV PPI BID for gastritis, IV reglan for possible biliary gastritis -if not improved consider EGD vs UGI series to eval for stricture 3. Hypertension -hold antihypertensives CODE: Full Proxy: Bobo Escobar, life partner I have utilized all available resources to reconcile the patient's home medications. Time Spent With Patient Critical Care time: I spent a total of [] minutes of critical care time on this patient's care today; this time is exclusive of procedural time.
[2022-05-22 23:45] VITALS: BP 141/99; PULSE 65; RESP 22; O2SAT 100
[2022-05-22 23:51] VITALS: BMI 25.7
--- NOTE | 2022-05-22 23:51 | PC.NURSE ---
Patient IVF infusing slowly due to IV access and patient up and down to restroom.
[2022-05-23] VITALS (7 sets, daily range): BP systolic 114–185; BP diastolic 58–82; PULSE 54–85; RESP 15–20; TEMP 36.4–37.2; O2SAT 98–100
[2022-05-23] MEDS: PANTOPRAZOLE 40 MG VIAL IV ×3 (00:50→20:34)
[2022-05-23] MEDS: METOCLOPRAMIDE 10 MG/2 ML INJ IV ×5 (00:50→23:29)
[2022-05-23] MEDS: MORPHINE 2 MG/ML INJ IV ×4 (00:57→20:34)
[2022-05-23 04:02] LABS: Appearance Urine UA CLEAR; Bilirubin Urine UA NEGATIVE (NEGATIVE); Color Urine UA YELLOW; Glucose Urine UA NEGATIVE (Negative); Ketones Urine UA 1+ (NEGATIVE); Leukocyte Esterase Urine UA NEGATIVE (NEGATIVE); Nitrite Urine UA POSITIVE (Negative); Occult Blood Urine UA 1+ (Negative); Protein Urine UA TRACE (Negative); Urobilinogen Urine UA 0.2 E.U./dL (0.2)
[2022-05-23 04:04] LABS: pH Urine UA 6.5 (4.5-8.0)
[2022-05-23] MEDS: ONDANSETRON 4 MG/2 ML INJ IV ×2 (04:05→20:34)
[2022-05-23 04:17] LABS: Bacteria Urine Occasional (0-1); Culture Indicated Urine Specimen Cultured; RBC Urine 0-1/HPF (0-5/HPF); Squamous Epithelial Cell Urine 1-5 /HPF (0-5/HPF); WBC Urine 1-5/HPF (0-5/HPF)
[2022-05-23 07:07] LABS: Add Manual Diff / Slide Review NO; Basophils Absolute Auto 0 /uL (0-100); Basophils Percent Auto 0.2 % (0-2); Eosinophils Absolute Auto 0 /uL (0-450); Eosinophils Percent Auto 0.1 % (2-4); Hemoglobin 11.6 g/dL (12.0-16.0); Lymphocytes Absolute Auto 2800 /uL (1100-4500); Lymphocytes Percent Auto 21.1 % (25-40); Mean Corpuscular Hemoglobin 28.3 PG (26-34); Mean Corpuscular Volume 83.3 fL (80-100); Monocytes Absolute Auto 1300 /uL (0-900); Monocytes Percent Auto 9.5 % (3-14); Neutrophils Absolute Auto 9200 /uL (1500-7000); Neutrophils Percent Auto 69.1 % (50-75); Platelet Count 306 X10^3/uL (150-400); Red Blood Cell Count 4.08 X10^6/uL (4.0-5.2); Red Cell Distribution Width 13.5 % (11.6-14.8); White Blood Cell Count 13.3 X10^3/uL (4.5-11.0)
[2022-05-23 07:57] LABS: BUN Creatinine Ratio 16.7 (6-22); Blood Urea Nitrogen 8 mg/dL (7-17); Calcium 8.2 mg/dL (8.4-10.2); Carbon Dioxide 22 mmol/L (22-32); Chloride 107 mmol/L (98-107); Estimated Glomerular Filt Rate > 60 mL/min (>60); Glucose 124 mg/dL (70-100); HEMOLYSIS < 15 (0-50); Potassium 3.1 mmol/L (3.4-5.1); Sodium 139 mmol/L (137-145)
[2022-05-23 08:09] LABS: Alanine Aminotransferase 15 IU/L (<35); Albumin 3.8 g/dL (3.5-5.0); Albumin Globulin Ratio 1.4 (1.0-2.8); Alkaline Phosphatase 52 U/L (38-126); Aspartate Aminotransferase 19 IU/L (14-36); Bilirubin Total 1.1 mg/dL (0.2-1.3); Globulin 2.7 g/dL (1.7-4.1); HEMOLYSIS < 15 (0-50); Total Protein 6.5 g/dL (6.3-8.2)
[2022-05-23] MEDS: HEPARIN 5,000 UNIT/ML VIAL 5000 UNIT SUBCUT ×2 (09:26→20:34)
[2022-05-23] MEDS: POTASSIUM CHLORIDE IN WATER 10 MEQ/100 ML PIGGYBACK 50 MEQ IV ×4 (09:29→15:33)
--- NOTE | 2022-05-23 14:29 | PM.PN.1 ---
Subjective Subjective Interval history: Patient reports improvement of her presenting sxs, and she attributes this mostly to start of IV Protonix. She endorses only occasional use of THC, and so does not believe this might be hyperemesis cannabinoid syndrome, although she find relief of the n/v from hot showers. Exam Vital Signs (past 8 hours): - 05/23/22 08:15 05/23/22 07:00 Temperature 99 F Pulse Rate 54 L Respiratory Rate 15 Blood Pressure 114/58 L Pulse Oximetry 98 Oxygen Delivery Method Room Air Oxygen Flow Rate 0 Oxygen Delivery Method Room Air Oxygen Flow Rate 0 Const Other: Patient sitting up in bed comfortably upon my entering the room, talking with her partner at bedside Eyes Other: No scleral icterus appreciated Resp Other: Clear to auscultation bilaterally Cardio Other: RRR, S1 and S2 heart sounds normal, no extra heart sounds or murmurs appreciated GI Other: Soft, non-distended, non-tender, bowel sounds present Skin Other: Bilateral stasis dermatitis appreciated to lower extremities Extrem Other: Palpable dorsalis pedis pulses bilaterally, with venous stasis peripheral edema appreciated Objective Labs Result Diagrams: 05/23/22 06:37 05/23/22 06:37 Labs: Laboratory Results - last 24 hr 05/22/22 05/22/22 05/22/22 20:00 20:00 20:00 WBC 19.6 H RBC 4.93 Hgb 14.0 Hct 41.7 MCV 84.6 MCH 28.5 MCHC 33.7 RDW 13.3 Plt Count 382 Neut % (Auto) 81.4 H Lymph % (Auto) 10.8 L Hernando % (Auto) 7.6 Eos % (Auto) 0.0 L Baso % (Auto) 0.2 Neut # (Auto) 29695 H Lymph # (Auto) 2100 Hernando # (Auto) 1500 H Eos # (Auto) 0 Baso # (Auto) 0 Sodium 141 Potassium 3.2 L Chloride 103 Carbon Dioxide 21 L BUN 11 Creatinine 0.71 Estimated GFR > 60 BUN/Creatinine Ratio 15.5 Glucose 168 H Lactate 3.5 H Calcium 9.5 Total Bilirubin 1.8 H Conjugated Bilirubin Unconjugated Bilirubin AST 23 ALT 21 Alkaline Phosphatase 66 Total Protein 8.5 H Albumin 5.0 Globulin 3.5 Albumin/Globulin Ratio 1.4 Lipase 114 Serum , Qual Urine Color Urine Appearance Urine pH Ur Specific Novinger Urine Protein Urine Glucose (UA) Urine Ketones Urine Occult Blood Urine Nitrate Urine Bilirubin Urine Urobilinogen Ur Leukocyte Esterase Urine RBC Urine WBC Ur Squamous Epith Cells Urine Bacteria Ur Culture Indicated? SARS-CoV-2 (PCR) 05/22/22 05/22/22 05/22/22 20:00 21:48 22:39 WBC RBC Hgb Hct MCV MCH MCHC RDW Plt Count Neut % (Auto) Lymph % (Auto) Hernando % (Auto) Eos % (Auto) Baso % (Auto) Neut # (Auto) Lymph # (Auto) Hernando # (Auto) Eos # (Auto) Baso # (Auto) Sodium Potassium Chloride Carbon Dioxide BUN Creatinine Estimated GFR BUN/Creatinine Ratio Glucose Lactate 2.1 Calcium Total Bilirubin Conjugated Bilirubin Unconjugated Bilirubin AST ALT Alkaline Phosphatase Total Protein Albumin Globulin Albumin/Globulin Ratio Lipase Serum , Qual Cancelled Urine Color Urine Appearance Urine pH Ur Specific Novinger Urine Protein Urine Glucose (UA) Urine Ketones Urine Occult Blood Urine Nitrate Urine Bilirubin Urine Urobilinogen Ur Leukocyte Esterase Urine RBC Urine WBC Ur Squamous Epith Cells Urine Bacteria Ur Culture Indicated? SARS-CoV-2 (PCR) Negative 05/23/22 05/23/22 05/23/22 03:55 06:37 06:37 WBC 13.3 H RBC 4.08 Hgb 11.6 L Hct 34.0 L MCV 83.3 MCH 28.3 MCHC 34.0 RDW 13.5 Plt Count 306 Neut % (Auto) 69.1 Lymph % (Auto) 21.1 L Hernando % (Auto) 9.5 Eos % (Auto) 0.1 L Baso % (Auto) 0.2 Neut # (Auto) 9200 H Lymph # (Auto) 2800 Hernando # (Auto) 1300 H Eos # (Auto) 0 Baso # (Auto) 0 Sodium Potassium Chloride Carbon Dioxide BUN Creatinine Estimated GFR BUN/Creatinine Ratio Glucose Lactate Calcium Total Bilirubin 1.1 Conjugated Bilirubin 0.0 Unconjugated Bilirubin 1.0 AST 19 ALT 15 Alkaline Phosphatase 52 Total Protein 6.5 Albumin 3.8 Globulin 2.7 Albumin/Globulin Ratio 1.4 Lipase Serum , Qual Urine Color Yellow Urine Appearance Clear Urine pH 6.5 Ur Specific Novinger 1.010 Urine Protein Trace H Urine Glucose (UA) Negative Urine Ketones 1+ H Urine Occult Blood 1+ H Urine Nitrate Positive H Urine Bilirubin Negative Urine Urobilinogen 0.2 Ur Leukocyte Esterase Negative Urine RBC 0-1/hpf Urine WBC 1-5/hpf Ur Squamous Epith Cells 1-5 /hpf Urine Bacteria Occasional (0-1) Ur Culture Indicated? Specimen cultured SARS-CoV-2 (PCR) 05/23/22 06:37 WBC RBC Hgb Hct MCV MCH MCHC RDW Plt Count Neut % (Auto) Lymph % (Auto) Hernando % (Auto) Eos % (Auto) Baso % (Auto) Neut # (Auto) Lymph # (Auto) Hernando # (Auto) Eos # (Auto) Baso # (Auto) Sodium 139 Potassium 3.1 L Chloride 107 Carbon Dioxide 22 BUN 8 Creatinine 0.48 L Estimated GFR > 60 BUN/Creatinine Ratio 16.7 Glucose 124 H Lactate Calcium 8.2 L Total Bilirubin Conjugated Bilirubin Unconjugated Bilirubin AST ALT Alkaline Phosphatase Total Protein Albumin Globulin Albumin/Globulin Ratio Lipase Serum , Qual Urine Color Urine Appearance Urine pH Ur Specific Novinger Urine Protein Urine Glucose (UA) Urine Ketones Urine Occult Blood Urine Nitrate Urine Bilirubin Urine Urobilinogen Ur Leukocyte Esterase Urine RBC Urine WBC Ur Squamous Epith Cells Urine Bacteria Ur Culture Indicated? SARS-CoV-2 (PCR) [facility] Medical History Bipolar disorder Celiac disease GERD with apnea Hypertension Polycystic ovary disease Surgical History H/O gastric sleeve H/O oophorectomy History of appendectomy History of cholecystectomy Social History Smoking Status: Never smoker alcohol intake: current Assessment & Plan Assessment & Plan narrative: Ms. Capellan is a 41W with H sleeve gastrectomy who presents nausea, vomiting found to have sepsis from UTI. 1. Sepsis from UTI with elevated bilirubin and vomiting -initial WBC 19.6, lactate 3.5, tachycardic -patient vomiting and unable to tolerate POs, requires antibiotics -has elevated bilirubin, hepatic dysfunction presumed secondary to sepsis -ordered for IV fluids and antibiotics in ED -lactate improved to 2.1, and tachycardia improved -continue ceftriaxone 2gm daily, and IV fluids 2. Persistent nausea and vomiting -etiology is possibly secondary to UTI, vs GERD, vs biliary gastritis, vs post gastrectomy stricture -CT abdomen with no acute process -NPO for now -continue IV zofran -IV morphine for pain -IV PPI BID for gastritis, IV reglan for possible biliary gastritis -if not improved consider EGD vs UGI series to eval for stricture 3. Hypertension -hold antihypertensives CODE: Full Proxy: Bobo Escobar, life partner I have utilized all available resources to reconcile the patient's home medications. Time Spent With Patient Critical Care time: I spent a total of [] minutes of critical care time on this patient's care today; this time is exclusive of procedural time. Quality VTE Deep Vein Thrombosis/Pulmonary Embolism Present on Admission: No MIPS - Admit I confirm the patient?s Advance Care Plan is present, Code status is documented, Surrogate decision maker is in patient?s record [If Yes, STOP here]: Yes
--- NOTE | 2022-05-23 16:05 | CM.DANOTE ---
Initial DCP Assessment Note Pt is a 41 yo female, resident of [place], arrives with complaint of vomiting admitted for management of UTI w/sepsis, gastritis PMH includes gastrectomy stricture PCP: Tai Cage Payer: Woodrow MENDOZA Reviewed chart, pt discussed in multidisciplinary rounds this morning. Patient active and indp at baseline and is expected to return home w/S.O. when medically cleared No barriers identified at this time to patient's safe discharge home w/family to assist; close outpatient f/u recommended. GIO Garg Discharge Planning/Care Management CM Discharge Assessment Start: 05/23/22 15:59 Freq: Status: Active Protocol: Document 05/23/22 16:00 SHERWIN (Rec: 05/23/22 16:05 SHERWIN [id number]) Discharge Planning Assessment Assigned [employer]per GIO Packer DPOA/Assigned Designee Name Gia Coleman Contact Information [phone] Advance Directives? No History Provided By Patient,Medical Record Prior Living Arrangements House Household Members significant other Type of transporation used prior to Drives own vehicle admit Independent with ADL's Yes Is patient alert and oriented? Yes Barriers to Discharge No Comment Home w/ S.O. expected Discharge Plan Home Transportation Arrangement family Referrals Initiated None needed
[2022-05-23] MEDS: cefTRIAXone 2,000 MG in SODIUM CHLORIDE 0.9% 100 ML 200 MG IV (23:29)
[2022-05-24 00:25] VITALS: BP 129/78; PULSE 79; RESP 17; TEMP 36.7; O2SAT 98
[2022-05-24 04:20] VITALS: BP 102/63; PULSE 62; RESP 16; TEMP 36.6; O2SAT 97
[2022-05-24] MEDS: METOCLOPRAMIDE 10 MG/2 ML INJ IV (06:29)
[2022-05-24] MEDS: PANTOPRAZOLE 40 MG VIAL IV (08:46)
[2022-05-24 10:09] VITALS: BP 159/70; PULSE 66; RESP 16; TEMP 36.6; O2SAT 99
--- NOTE | 2022-05-24 10:47 | PC.NURSE ---
discharge instructions given, all questions answered, all belongings accounted for, prescriptions given, and patient requested to walk out with .
--- NOTE | 2022-05-24 16:43 | P.DS_ITS ---
History of Present Illness History of Present Illness Chief complaint: Vomiting Narrative: Ms Crum is a 41W with PMH HTN, celiac, hx gastric sleeve, cholecystectomy who presents with abdominal pain, nausea, and vomiting. She has had a sleeve gastrectomy in 2017, she has had nausea and vomiting previously and was told it was possibly bile reflux. Her last EGD/colo she thinks was 1 year ago which she states showed no acute process, no ulcers, as far as she could recall. She developed nausea and vomiting on Sunday 05/20, she presented to [facility] and was ultmiately discharged home, though offered observation. She did have UA done which showed positive nitrates, urine culture pending. She did not receive ant ibiotics. Today she feels much worse with more frequent nausea and vomiting. She has chronic diarrhea. No black/bloody stools. She is careful not to have gluten. In the ED workup was done, vital notable afebrile, hr 110s, tachypneic. Labs notable for WBC 19.6, hgb 14. Na 141, k 3.2, creatinine 0.71. Lactate 3.5->2.1. Bilirubin 1.8. COVID negative. CT abdomen showed chronic splenic cyst, with no a cute process. She was ordered for IV fluids and antibiotics and symptomatic treatmen tfor nausea. She was admitted for further treatment. Family history: Mother with IBS Discharge Providers Provider Date of admission: 05/22/22 23:19 Discharge Date: 05/24/22 Primary care physician: Sheryl Timmons MD Discharge provider: Ciaran Kruger MD Summary Hospital Course Discharge Diagnosis: 1. Sepsis from UTI 2. Persistent nausea and vomiting 3. Hypertension Hospital Course: Ms. Capellan was admitted with nausea and vomiting. She had a recent positive UA from another hospital visit and was started on antibiotics for presumed UTI. She initially could not keep down anything orally. She improved with protonix and reglan. She was discharged on these medications along with antibiotics to complete a course for her urinary infection. Her likely cause of vomiting is gastritis from stomach acid, or bile acid. 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 She should follow up with her PCP to make sure she continues to improve and to determine if she may need EGD in the future. Exam Vital Signs (past 8 hours): - 05/24/22 10:09 Temperature 98 F Pulse Rate 66 Respiratory Rate 16 Blood Pressure 159/70 H Pulse Oximetry 99 Oxygen Flow Rate 0 Oxygen Delivery Method Room Air Oxygen Flow Rate 0 Narrative Exam Narrative: GEN: no acute distress PULM: clear bilaterally, no wheezes, rhonchi, rales ABD: soft, nontender, no rebound/guarding, normal bowel sounds CV: regular rate and rhythm Objective Labs Result Diagrams: 05/23/22 06:37 05/23/22 06:37 [facility] Medical History Bipolar disorder Celiac disease GERD with apnea Hypertension Polycystic ovary disease Surgical History H/O gastric sleeve H/O oophorectomy History of appendectomy History of cholecystectomy Social History household members: significant other Smoking Status: Never smoker alcohol intake: current Discharge Plan Discharge Plan Patient Disposition: Home Provider Discharge Comment: Ms. Capellan came in to the hospital with nausea and vomiting. She had evidence of a urinary tract infection. She likely has elevated acidity in her stomach. She should finish the antibiotics and take protonix twice a day. She should follow up in the next 1-2 weeks with her PCP. Discharge orders & Medications Prescriptions: New pantoprazole [Protonix] 40 mg tablet,delayed release (DR/EC) 40 mg PO BID Qty: 60 0RF levofloxacin 500 mg tablet 500 mg PO DAILY Qty: 3 0RF metoclopramide HCl [Reglan] 5 mg tablet 5 mg PO Q6H PRN (Reason: nausea and vomiting) Qty: 20 0RF Continued ondansetron 4 mg tablet,disintegrating 4 mg PO Q6-8H PRN (Reason: nausea and vomiting) Qty: 10 0RF alprazolam 0.5 mg tablet 0.5 mg PO BID PRN (Reason: Anxiety) Label Comments: take 1 tablet by mouth twice a day if needed hydrochlorothiazide 12.5 mg PO DAILY Medication counseling provided by Pharmacist: No Follow up/Referrals: Sheryl Timmons MD [Primary Care Provider] - Diet/Activity/Treatments Diet: Regular Diet comment: Gluten Free Activity: as tolerated Visit Report/Discharge Packet Instructions: Urinary Tract Infection, Celiac Disease, Sepsis, Gluten-Free Diet, Nausea and Vomiting-Adult, Pantoprazole, Metoclopramide, Levofloxacin, Hypokalemia Discharge Data Primary Care Provider: Sheryl Timmons VTE Deep Vein Thrombosis/Pulmonary Embolism Present on Admission: No
== END 2022-05-24 10:45 | disposition home or self-care (01) | DRG 872 ==
LOC: ED 21:10 → AC 23:20 → ICU 23:59
PROVIDERS: Admitting Provider Internal Medicine; Emergency Provider Emergency Medicine; PCP Internal Medicine; Referring Provider Emergency Medicine; Visit Provider Internal Medicine
DX: A41.9 Sepsis, unspecified organism (principal); N39.0 Urinary tract infection, site not specified; E87.2 Acidosis; E80.6 Other disorders of bilirubin metabolism; R65.20 Severe sepsis without septic shock; E87.6 Hypokalemia; K29.70 Gastritis, unspecified, without bleeding; I10 Essential (primary) hypertension; K21.9 Gastro-esophageal reflux disease without esophagitis; Z90.3 Acquired absence of stomach [part of]; Z20.822 Contact with and (suspected) exposure to COVID-19
CPT/HCPCS: 36415; 74177; 80048; 80053; 80076; 81001; 83605; 83690; 85025; 87040; 87086; 87635; 96365; 96366; 96375; 99284; 99291; C9803; C9113; J0696; J1200; J1644; J2060; J2270; J2405; J2765; Q9967

== ENCOUNTER 2022-05-26 17:23 | Observation (INO) | payer MEDICARE, OTHER, MEDICAID, SELFPAY ==
[2022-05-26] VITALS (19 sets, daily range): BP systolic 132–200; BP diastolic 85–109; PULSE 72–98; RESP 18–55; TEMP 36.9–37.1; O2SAT 99–100; BMI 32.3
--- NOTE | 2022-05-26 17:44 | DI.CT.S_ITS ---
PROCEDURE: CT ABDOMEN PELVIS W CON INDICATIONS: LUQ abd pain with vomiting TECHNIQUE: After the administration of intravenous contrast, axial sections acquired from the lung bases to the pubic symphysis. Coronal and sagittal reformats were performed. For radiation dose reduction, the following was used: automated exposure control, adjustment of mA and/or kV according to patient size. COMPARISON: [facility], CT, CT ABDOMEN PELVIS W CON, 05/22/2022, 21:37. FINDINGS: Image quality: Excellent. Lung bases: Unremarkable. Heart: No significant findings. ABDOMEN: Liver: Unremarkable. Gallbladder: Surgically absent Biliary ducts: Unremarkable. Pancreas: Unremarkable. Spleen: Medial splenic cyst with peripheral calcifications, as before. Adrenal Glands: Unremarkable. Kidneys and Ureters: Unremarkable. Stomach and Bowel: Gastric stapling has been performed. Stomach is within normal limits. There is moderate thickening of several small bowel loops within the left upper quadrant. There is mild thickening of the mid and proximal ascending colon which demonstrates mild surrounding fat stranding. Peritoneum: No abnormal intraperitoneal fluid. No free air. Ventral Wall: No hernias. Abdominal Nodes: No retroperitoneal or mesenteric adenopathy by size criteria. Vessels: Aorta and inferior vena cava are normal in size. PELVIS: Pelvic Organs: Unremarkable. Bladder: Unremarkable. Pelvic Nodes: No enlarged lymph nodes. Miscellaneous: No hernias are seen. Bones: Unremarkable. IMPRESSION: 1. Thickening of left upper quadrant small bowel loops, suggestive of infection versus inflammation. 2. Thickening of the right colon, consistent with infection versus inflammation. Follow-up colonoscopy is recommended to exclude underlying neoplasm. 3. No change in medial splenic cyst. Dictated by: Arnold Page M.D. on 05/26/2022 at 18:40 Approved by: Arnold Page M.D. on 05/26/2022 at 18:43
[2022-05-26 17:58] LABS: Add Manual Diff / Slide Review NO; Basophils Absolute Auto 100 /uL (0-100); Basophils Percent Auto 0.5 % (0-2); Eosinophils Absolute Auto 0 /uL (0-450); Eosinophils Percent Auto 0.3 % (2-4); Hematocrit 39.3 % (36-46); Hemoglobin 13.5 g/dL (12.0-16.0); Lymphocytes Absolute Auto 2900 /uL (1100-4500); Lymphocytes Percent Auto 24.3 % (25-40); Mean Corpuscular HGB Conc 34.3 % (30-36); Mean Corpuscular Hemoglobin 28.7 PG (26-34); Mean Corpuscular Volume 83.7 fL (80-100); Monocytes Absolute Auto 700 /uL (0-900); Monocytes Percent Auto 5.7 % (3-14); Neutrophils Absolute Auto 8200 /uL (1500-7000); Neutrophils Percent Auto 69.2 % (50-75); Platelet Count 341 X10^3/uL (150-400); Red Cell Distribution Width 13.7 % (11.6-14.8); White Blood Cell Count 11.9 X10^3/uL (4.5-11.0)
[2022-05-26] MEDS: HYDROMORPHONE 1 MG INJ IV (17:59)
[2022-05-26] MEDS: ONDANSETRON 4 MG/2 ML INJ IV (17:59)
[2022-05-26] MEDS: SODIUM CHLORIDE 0.9% 1,000 ML 1000 ML IV ×2 (17:59→19:20)
[2022-05-26 18:08] LABS: Creatine Kinase 47 U/L (30-135); Lactate (Lactic Acid) 1.5 mmol/L (0.7-2.1); Pregnancy Test Serum,Qual Negative (Negative)
[2022-05-26 18:10] LABS: Alanine Aminotransferase 50 IU/L (<35); Albumin Globulin Ratio 1.4 (1.0-2.8); Alkaline Phosphatase 63 U/L (38-126); Aspartate Aminotransferase 38 IU/L (14-36); BUN Creatinine Ratio 21.1 (6-22); Bilirubin Total 1.7 mg/dL (0.2-1.3); Blood Urea Nitrogen 12 mg/dL (7-17); Calcium 9.7 mg/dL (8.4-10.2); Carbon Dioxide 18 mmol/L (22-32); Chloride 106 mmol/L (98-107); Estimated Glomerular Filt Rate > 60 mL/min (>60); Globulin 3.5 g/dL (1.7-4.1); Glucose 115 mg/dL (70-100); HEMOLYSIS 45 (0-50); Lipase 101 U/L (23-300); Potassium 3.7 mmol/L (3.4-5.1); Sodium 141 mmol/L (137-145); Total Protein 8.5 g/dL (6.3-8.2)
--- NOTE | 2022-05-26 18:12 | ED.ABDPAIN ---
HPI - Abdominal Pain General Chief Complaint: Abdominal Pain Stated Complaint: sepsis/abdn pain inpt 5 days ago Time Seen by Provider: 05/26/22 17:31 Source: patient Mode of arrival: Ambulatory History of Present Illness HPI narrative: 41-year-old female nonsmoker with history of recent hospitalization due to sepsis secondary to UTI, hypokalemia, bipolar, hypertension and celiac disease returns with increasing severe left-sided abdominal pain and persistent nausea and vomiting. She had been admitted last week and discharged on Friday with the diagnosis as mentioned above. 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 She is become fatigued, dizzy, weak and lightheaded. She denies any fever or chills. Her pain is persistent but does seem to have episodes of worsening pain that are unrelated to any obvious provocation. She is had no change in bowel habits. She denies any obvious urinary complaints such as dysuria, frequency or urgency. Related Data Home Medications Medication Instructions Recorded Confirmed alprazolam 0.5 mg tablet 0.5 mg PO PRN PRN Anxiety 08/13/21 05/26/22 hydrochlorothiazide 12.5 mg PO DAILY 05/23/22 05/26/22 Previous Rx's Medication Instructions Recorded ondansetron 4 mg disintegrating 4 mg PO Q6-8H PRN nausea and 11/27/21 tablet vomiting #10 tabs levofloxacin 500 mg tablet 500 mg PO DAILY #3 tabs 05/24/22 metoclopramide HCl 5 mg tablet 5 mg PO Q6H PRN nausea and 05/24/22 (Reglan) vomiting #20 tabs pantoprazole 40 mg tablet,delayed 40 mg PO BID #60 tabs 05/24/22 release (Protonix) Allergies Allergy/AdvReac Type Severity Reaction Status Date / Time benzonatate Allergy Unknown Verified 03/04/22 08:42 [From Tessalon Perles] escitalopram [From Lexapro] Allergy Unknown Verified 03/04/22 08:42 NSAIDS (Non-Steroidal AdvReac Mild Verified 03/04/22 08:42 Anti-Inflamma From LEXAPRO AdvReac Unknown PSYCHOSIS Uncoded 03/04/22 08:42 HALLUCINATIONS Review of Systems Review of Systems Narrative: GENERAL: See HP HEENT: Denies sinus pain, ear pain, sore throat, difficulty swallowing, dizziness. RESPIRATORY: Denies dyspnea, cough, wheezing, hemoptysis, sputum. CARDIOVASCULAR: Denies chest pain, palpitations, orthopnea, edema, GASTROINTESTINAL: See HPI : Denies dysuria, frequency, incontinence, hematuria, urinary retention. MUSCULOSKELETAL: denies weakness, joint pain, or bony pain SKIN: Denies rash, skin lesions, or other NEUROLOGIC: Denies weakness, headache, numbness, change in speech, confusion, seizures, incoordination. PSYCHIATRIC: No concerning psychosocial issues. 12 point review of systems is negative except for those stated above Patient History Medical History Bipolar disorder Celiac disease GERD with apnea Hypertension Polycystic ovary disease Surgical History H/O gastric sleeve H/O oophorectomy History of appendectomy History of cholecystectomy Social History household members: significant other Smoking Status: Never smoker alcohol intake: current Smoking Status: Never smoker alcohol intake frequency: holidays/special occasions only Substance Use Type: marijuana Exam Narrative Exam Narrative: GENERAL: [41] year old patient appears stated age. Well-developed patient, in obvious distress, holding an emesis bag and rubbing her abdomen complaining of pain HEAD: Atraumatic. Normocephalic. EYES: Pupils equal round and reactive. Extraocular motions intact. No scleral icterus. No injection or drainage. ENT: Nose without bleeding, purulent drainage. Throat without erythema, tonsillar hypertrophy or exudate. Airway patent. NECK: Trachea midline. Non tender CARDIOVASCULAR: Regular rate and rhythm without murmurs, gallops, or rubs. RESPIRATORY: Clear to auscultation. Breath sounds equal bilaterally. No wheezes, rales, or rhonchi. GASTROINTESTINAL: Abdomen soft, tender throughout much of the abdomen, bowel sounds present throughout, nondistended. EXTREMITIES: No edema or joint tenderness. BACK: Nontender without deformity or crepitance. No flank tenderness. NEURO: AOx3. SKIN: No rash or erythema of visible areas Initial Vital Signs Initial Vital Signs: Vital Signs Temperature 98.5 F 05/26/22 17:31 Pulse Rate 98 H 05/26/22 17:31 Respiratory Rate 18 09/18/22 17:31 Blood Pressure 178/107 H 05/26/22 17:31 Pulse Oximetry 99 05/26/22 17:31 Oxygen Delivery Method 05/26/22 17:31 Course Orders Ordered: ED Orders 05/26/22 17:40 Complete Blood Count AUTO DIFF Stat Comprehensive Metabolic Panel Stat Lactate (Lactic Acid) Stat Lipase Stat Test Serum,Qual Stat Procalcitonin Stat Troponin & CK Cardiac Panel Stat 05/26/22 17:44 CT abdomen pelvis w con Stat 05/26/22 18:16 EKG-12 Lead Stat 05/26/22 20:22 Urinalysis and Microscopic Stat Alprazolam (Alprazolam 0.5 Mg Tablet) 0.5 mg PO BID PRN PRN Reason: Anxiety Gabapentin (Gabapentin 100 Mg Capsule) 100 mg PO Q8HR BENITO Hydromorphone HCl (Hydromorphone 0.5 Mg Inj) 1 mg IV Q4H PRN PRN Reason: Breakthrough pain only (8-10) Last Admin: 05/26/22 23:03 Dose: 1 mg Documented By: AM Dextrose/Sodium Chloride (Dextrose 5%-0.9% Ns) 1,000 mls @ 100 mls/hr IV CONT BENITO Last Admin: 05/26/22 23:03 Dose: 100 mls/hr Documented By: AM Ceftriaxone Sodium 1,000 mg/ (Sodium Chloride) 100 mls @ 200 mls/hr IV Q24H BENITO Metronidazole (Flagyl) 500 mg in 100 mls @ 100 mls/hr IV Q8H BENITO Metoclopramide HCl (Metoclopramide Hcl 5 Mg Tablet) 5 mg PO Q6H PRN PRN Reason: nausea and vomiting Metoclopramide HCl (Metoclopramide 10 Mg/2 Ml Inj) 10 mg IV Q6HR PRN PRN Reason: Nausea And Vomiting Oxycodone HCl (Oxycodone Ir 5 Mg Tablet) 5 mg PO Q4HR PRN PRN Reason: Pain, Moderate (4-6) Pantoprazole Sodium (Pantoprazole 40 Mg Vial) 40 mg IV BID BENITO Discontinued Medications Hydromorphone HCl (Hydromorphone 1 Mg Inj) 1 mg IV NOW ONE Stop: 05/26/22 17:32 Last Admin: 05/26/22 17:59 Dose: 1 mg Documented By: KF Sodium Chloride (Normal Saline 0.9%) 1,000 mls @ 1,000 mls/hr IV BOLUS ONE Stop: 05/26/22 18:30 Last Infusion: 05/26/22 19:20 Dose: 0 mls/hr Documented By: Admin: 05/26/22 17:59 Dose: 1,000 mls/hr Documented By: KF Sodium Chloride (Normal Saline 0.9%) 1,000 mls @ 1,000 mls/hr IV BOLUS ONE Stop: 05/26/22 19:56 Last Infusion: 05/26/22 20:24 Dose: 0 mls/hr Documented By: Admin: 05/26/22 19:20 Dose: 1,000 mls/hr Documented By: KF Ceftriaxone Sodium 2,000 mg/ (Sodium Chloride) 100 mls @ 200 mls/hr IV NOW ONE Stop: 05/26/22 21:32 Last Admin: 05/26/22 21:42 Dose: 200 mls/hr Documented By: EB Metronidazole (Flagyl) 500 mg in 100 mls @ 100 mls/hr IV NOW ONE Stop: 05/26/22 22:30 Last Admin: 05/26/22 23:02 Dose: 100 mls/hr Documented By: AM Lorazepam (Lorazepam 2 Mg/Ml Inj) 0.5 mg IV NOW ONE Stop: 05/26/22 18:10 Last Admin: 05/26/22 18:13 Dose: 0.5 mg Documented By: JOANNE Metoclopramide HCl (Metoclopramide 10 Mg/2 Ml Inj) 10 mg IV NOW ONE Stop: 05/26/22 22:01 Last Admin: 05/26/22 22:06 Dose: 10 mg Documented By: EB Ondansetron HCl (Ondansetron 4 Mg/2 Ml Inj) 4 mg IV NOW ONE Stop: 05/26/22 17:32 Last Admin: 05/26/22 17:59 Dose: 4 mg Documented By: KF Pantoprazole Sodium (Pantoprazole 40 Mg Vial) 40 mg IV NOW ONE Stop: 05/26/22 18:58 Last Admin: 05/26/22 19:20 Dose: 40 mg Documented By: KF Reevaluation(s) Reevaluation #1: Patient continues to have persistent nausea and pain after 1st round of medications Reevaluation #2: Patient continues to have nausea and vomiting, not tolerating oral challenge after multiple antiemetics including Zofran, Reglan, Protonix, and Ativan. Vital Signs Vital signs: Vital Signs - 8 hr 05/26/22 17:31 05/26/22 18:00 05/26/22 18:01 Temperature 98.5 F Pulse Rate 98 H 84 Respiratory Rate 18 22 Blood Pressure 178/107 H 184/95 H Pulse Oximetry 99 100 Oxygen Delivery Method Room Air 05/26/22 18:31 05/26/22 19:00 05/26/22 19:18 Temperature Pulse Rate 73 74 75 Respiratory Rate 24 24 Blood Pressure Pulse Oximetry 100 99 99 Oxygen Delivery Method 05/26/22 19:18 05/26/22 19:30 05/26/22 19:31 Temperature Pulse Rate 73 74 Respiratory Rate 26 H 22 Blood Pressure 188/101 H Pulse Oximetry 100 100 Oxygen Delivery Method 05/26/22 19:31 05/26/22 20:00 05/26/22 20:01 Temperature Pulse Rate 74 72 Respiratory Rate 55 H 38 H Blood Pressure 200/91 H Pulse Oximetry 99 99 Oxygen Delivery Method 05/26/22 20:01 05/26/22 20:30 05/26/22 20:31 Temperature Pulse Rate 76 78 Respiratory Rate 40 H 40 H Blood Pressure 186/106 H Pulse Oximetry 99 99 Oxygen Delivery Method 05/26/22 20:31 05/26/22 21:00 05/26/22 21:01 Temperature Pulse Rate 90 86 Respiratory Rate 45 H 42 H Blood Pressure 186/88 H Pulse Oximetry 99 99 Oxygen Delivery Method 05/26/22 21:01 05/26/22 21:30 05/26/22 21:31 Temperature Pulse Rate 91 H 89 Respiratory Rate 45 H 38 H Blood Pressure 188/85 H Pulse Oximetry 99 100 Oxygen Delivery Method 05/26/22 21:31 Temperature Pulse Rate Respiratory Rate Blood Pressure 176/100 H Pulse Oximetry Oxygen Delivery Method MDM - Abdominal Pain Lab Data Result diagrams: 05/26/22 17:40 05/26/22 17:40 Labs: Lab Results 05/26/22 05/26/22 05/26/22 Range/Units 17:40 17:40 17:40 WBC 11.9 H (4.5-11.0) X10^3/uL RBC 4.70 (4.0-5.2) X10^6/uL Hgb 13.5 (12.0-16.0) g/dL Hct 39.3 (36-46) % MCV 83.7 (80-100) fL MCH 28.7 (26-34) PG MCHC 34.3 (30-36) % RDW 13.7 (11.6-14.8) % Plt Count 341 (150-400) X10^3/uL Neut % (Auto) 69.2 (50-75) % Lymph % (Auto) 24.3 L (25-40) % [place] % (Auto) 5.7 (3-14) % Eos % (Auto) 0.3 L (2-4) % Baso % (Auto) 0.5 (0-2) % Neut # (Auto) 8200 H (6046-9068) /uL Lymph # (Auto) 2900 (2699-9772) /uL [place] # (Auto) 700 (0-900) /uL Eos # (Auto) 0 (0-450) /uL Baso # (Auto) 100 (0-100) /uL Sodium 141 (137-145) mmol/L Potassium 3.7 (3.4-5.1) mmol/L Chloride 106 (98-107) mmol/L Carbon Dioxide 18 L (22-32) mmol/L BUN 12 (7-17) mg/dL Creatinine 0.57 (0.52-1.04) mg/dL Estimated GFR > 60 (>60) mL/min BUN/Creatinine Ratio 21.1 (6-22) Glucose 115 H (70-100) mg/dL Lactate 1.5 (0.7-2.1) mmol/L Calcium 9.7 (8.4-10.2) mg/dL Total Bilirubin 1.7 H (0.2-1.3) mg/dL AST 38 H (14-36) IU/L ALT 50 H (<35) IU/L Alkaline Phosphatase 63 (38-126) U/L Total Creatine Kinase (30-135) U/L CK-MB (CK-2) CK-MB (CK-2) Rel Index Troponin I (0.01-0.034) ng/mL Total Protein 8.5 H (6.3-8.2) g/dL Albumin 5.0 (3.5-5.0) g/dL Globulin 3.5 (1.7-4.1) g/dL Albumin/Globulin Ratio 1.4 (1.0-2.8) Lipase 101 (23-300) U/L Procalcitonin (<0.5) ng/mL Serum , Qual (Negative) Urine Color Urine Appearance Urine pH (4.5-8.0) Ur Specific [place] (1.000-1.035) Urine Protein (Negative) Urine Glucose (UA) (Negative) g/dL Urine Ketones (NEGATIVE) Urine Occult Blood (Negative) Urine Nitrate (Negative) Urine Bilirubin (NEGATIVE) Urine Urobilinogen (0.2) E.U./dL Ur Leukocyte Esterase (NEGATIVE) Urine RBC (0-5/HPF) Urine WBC (0-5/HPF) Ur Squamous Epith Cells (0-5/HPF) Urine Bacteria (None) Ur Culture Indicated? 05/26/22 05/26/22 05/26/22 Range/Units 17:40 17:40 20:22 WBC (4.5-11.0) X10^3/uL RBC (4.0-5.2) X10^6/uL Hgb (12.0-16.0) g/dL Hct (36-46) % MCV (80-100) fL MCH (26-34) PG MCHC (30-36) % RDW (11.6-14.8) % Plt Count (150-400) X10^3/uL Neut % (Auto) (50-75) % Lymph % (Auto) (25-40) % [place] % (Auto) (3-14) % Eos % (Auto) (2-4) % Baso % (Auto) (0-2) % Neut # (Auto) (3048-2608) /uL Lymph # (Auto) (0217-3255) /uL [place] # (Auto) (0-900) /uL Eos # (Auto) (0-450) /uL Baso # (Auto) (0-100) /uL Sodium (137-145) mmol/L Potassium (3.4-5.1) mmol/L Chloride (98-107) mmol/L Carbon Dioxide (22-32) mmol/L BUN (7-17) mg/dL Creatinine (0.52-1.04) mg/dL Estimated GFR (>60) mL/min BUN/Creatinine Ratio (6-22) Glucose (70-100) mg/dL Lactate (0.7-2.1) mmol/L Calcium (8.4-10.2) mg/dL Total Bilirubin (0.2-1.3) mg/dL AST (14-36) IU/L ALT (<35) IU/L Alkaline Phosphatase (38-126) U/L Total Creatine Kinase 47 (30-135) U/L CK-MB (CK-2) TNP CK-MB (CK-2) Rel Index TNP Troponin I < 0.012 (0.01-0.034) ng/mL Total Protein (6.3-8.2) g/dL Albumin (3.5-5.0) g/dL Globulin (1.7-4.1) g/dL Albumin/Globulin Ratio (1.0-2.8) Lipase (23-300) U/L Procalcitonin < 0.03 (<0.5) ng/mL Serum , Qual Negative (Negative) Urine Color Yellow Urine Appearance Clear Urine pH 6.5 (4.5-8.0) Ur Specific [place] <=1.005 (1.000-1.035) Urine Protein Negative (Negative) Urine Glucose (UA) Negative (Negative) g/dL Urine Ketones 3+ H (NEGATIVE) Urine Occult Blood Trace-lysed (Negative) Urine Nitrate Negative (Negative) Urine Bilirubin Negative (NEGATIVE) Urine Urobilinogen 0.2 (0.2) E.U./dL Ur Leukocyte Esterase Negative (NEGATIVE) Urine RBC 0-1/hpf (0-5/HPF) Urine WBC 0-1/hpf (0-5/HPF) Ur Squamous Epith Cells 0-1 /hpf (0-5/HPF) Urine Bacteria None seen (None) Ur Culture Indicated? Cult not indicated Imaging Data CT scan - abdomen/pelvis: Radiologist's Impression: Close Abdomen/Pelvis CT (Signed) Arnold Page - 05/26/22 Abdomen/Pelvis CT (Signed) Paramjit Marr - 05/22/22 Vascular Ultrasound (Signed) Paramjit Marr - 03/08/22 Lower Extremity MRI (Signed) Navarro Ceballos - 03/08/22 Vascular Ultrasound (Signed) Rasheed Tanner - 03/01/22 Pelvis Ultrasound (Signed) Rasheed Tanner - 11/27/21 Knee X-Ray (Signed) Chase Steele - 11/02/21 Abdomen/Pelvis CT (Signed) ScarletSabasanjelica - 08/16/21 Launch?Image [address] [address] [address] Scan Report Signed Patient: Janet Capellan MR#: [id number] : 1980 Acct:[id number] Age/Sex: 41 / F Date of Service: 05/26/22 Loc: ED Accession Number: [id number] ?? Procedure: CT abdomen pelvis w con Ordering Provider: Onesimo Cruz D.O. PROCEDURE:? CT ABDOMEN PELVIS W CON ? INDICATIONS:? LUQ abd pain with vomiting ? TECHNIQUE:? After the administration of intravenous contrast, axial sections acquired from the lung bases to the pubic symphysis.? Coronal and sagittal reformats were performed.? For radiation dose reduction, the following was used:? automated exposure control, adjustment of mA and/or kV according to patient size.? ? COMPARISON:? [facility], CT, CT ABDOMEN PELVIS W CON, 05/22/2022, 21:37. ? FINDINGS:? Image quality:? Excellent.? ? Lung bases:? Unremarkable. Heart:? No significant findings. ? ABDOMEN: Liver:? Unremarkable.? ? Gallbladder:? Surgically absent? ? Biliary ducts:? Unremarkable.? ? Pancreas:? Unremarkable.? ? Spleen:? Medial splenic cyst with peripheral calcifications, as before. Adrenal Glands:? Unremarkable.? ? Kidneys and Ureters:? Unremarkable.? ? ? Stomach and Bowel:? Gastric stapling has been performed.? Stomach is within normal limits.? There is moderate thickening of several small bowel loops within the left upper quadrant.? There is mild thickening of the mid and proximal ascending colon which demonstrates mild surrounding fat stranding. Peritoneum:? No abnormal intraperitoneal fluid.? No free air.? ? Ventral Wall: ? No hernias.? Abdominal Nodes:? No retroperitoneal or mesenteric adenopathy by size criteria.? Vessels:? Aorta and inferior vena cava are normal in size.? ? PELVIS: Pelvic Organs:? Unremarkable.? ? Bladder:? Unremarkable.? ? Pelvic Nodes: No enlarged lymph nodes.? Miscellaneous: No hernias are seen. ? ? ? Bones:? Unremarkable.? IMPRESSION:? 1. Thickening of left upper quadrant small bowel loops, suggestive of infection versus inflammation. 2. Thickening of the right colon, consistent with infection versus inflammation.? Follow-up colonoscopy is recommended to exclude underlying neoplasm. 3. No change in medial splenic cyst.? ? ? Dictated by: Arnold Page M.D. on 05/26/2022 at 18:40 ? ? Approved by: Arnold Page M.D. on 05/26/2022 at 18:43 ? MDM Narrative Medical decision making narrative: Patient's with repeat visit and evolution inflammatory versus infectious change on her CT requires hospitalization due to her inability to tolerate oral hydration despite multiple antiemetics, as well as intractable pain not responsive to multiple pain medications. She is initiated on antibiotics in the emergency department and given fluids, admitted to the hospitalist for further treatment, stabilization and possible diagnostics Discharge Plan Departure Patient Disposition: Admitted as Observation Clinical Impression: Acute colitis, Intractable abdominal pain, Intractable vomiting with nausea Admit Date/Time: 05/26/22 21:33 Admit Provider: Kentrell Rae
[2022-05-26] MEDS: LORazepam 2 MG/ML INJ 0.5 MG IV (18:13)
[2022-05-26 18:21] LABS: Troponin I < 0.012 ng/mL (0.01-0.034)
[2022-05-26 18:26] LABS: Procalcitonin < 0.03 ng/mL (<0.5)
[2022-05-26] MEDS: PANTOPRAZOLE 40 MG VIAL IV (19:20)
[2022-05-26 20:34] LABS: Appearance Urine UA CLEAR; Bilirubin Urine UA NEGATIVE (NEGATIVE); Color Urine UA YELLOW; Glucose Urine UA NEGATIVE (Negative); Ketones Urine UA 3+ (NEGATIVE); Leukocyte Esterase Urine UA NEGATIVE (NEGATIVE); Nitrite Urine UA NEGATIVE (Negative); Occult Blood Urine UA TRACE-LYSED (Negative); Protein Urine UA NEGATIVE (Negative); Specific Gravity Urine UA <=1.005 (1.000-1.035); Urobilinogen Urine UA 0.2 E.U./dL (0.2)
[2022-05-26 20:35] LABS: pH Urine UA 6.5 (4.5-8.0)
[2022-05-26 20:40] LABS: Bacteria Urine None Seen; Culture Indicated Urine Cult Not Indicated; RBC Urine 0-1/HPF (0-5/HPF); Squamous Epithelial Cell Urine 0-1 /HPF (0-5/HPF); WBC Urine 0-1/HPF (0-5/HPF)
--- NOTE | 2022-05-26 21:27 | PC.NURSE ---
Pt provided with 2 crackers and a small glass of water. Pt stated I'm just going to throw it all up. Pt encouraged to try just small sips of water. Upon recheck, pt states she threw up the water she tried to drink. Pt informed that if she cannot keep water or food down she will need to be admitted. Pt OK with this. Pt remains standing bent over the bed but denies needs.
[2022-05-26] MEDS: cefTRIAXone 2,000 MG in SODIUM CHLORIDE 0.9% 100 ML 200 MG IV (21:42)
[2022-05-26] MEDS: METOCLOPRAMIDE 10 MG/2 ML INJ IV (22:06)
[2022-05-26 22:18] LABS: COVID19 -Nasal RAPID Negative (Negative)
[2022-05-26] MEDS: metroNIDAZOLE 500 MG/100 ML PIGGYBACK 100 MG IV (23:02)
[2022-05-26] MEDS: HYDROMORPHONE 0.5 MG INJ 1 MG IV (23:03)
[2022-05-26] MEDS: DEXTROSE 5%-0.9% NS 1,000 ML 100 ML IV (23:03)
--- NOTE | 2022-05-26 23:06 | PM.HP.1 ---
History of Present Illness History of Present Illness Date Patient Seen: 05/26/22 Date of Onset of Symptoms: 05/25/22 Chief complaint: sepsis/abdn pain inpt 5 days ago Narrative: 41-year-old female nonsmoker with history of recent hospitalization due to sepsis secondary to UTI, hypokalemia, bipolar, hypertension and celiac disease returns with increasing severe left-sided abdominal pain and persistent nausea and vomiting.? She had been admitted last week and discharged on Friday with the diagnosis as mentioned above.? She had prescription sent to her pharmacy which she has still been unable to sisal picker due to problems at the pharmacy.? She is become fatigued, dizzy, weak and lightheaded.? She denies any fever or chills.? Her pain is persistent but does seem to have episodes of worsening pain that are unrelated to any obvious provocation.? She is had no change in bowel habits.? She denies any obvious urinary complaints such as dysuria, frequency or urgency. Patient continues to have recurrent episodes of nausea and vomiting and intolerable abdominal pain during the ER stay, unable to tolerate anything by mouth, we are called for further evaluation and overnight observation. During my conversation with the patient she does seem to be in distress because of the pain and standing up and bending to feel comfortable from the pain. Patient follows with the [place] regarding her gastric sleeve but did not had any recent issues. She is supposed to convert the gastric sleeve to gastric bypass but did not happen. Patient denies any sick contacts, eating anything outside, no obvious exposure to any toxins. Patient History Medical History Bipolar disorder Celiac disease GERD with apnea Hypertension Polycystic ovary disease Surgical History H/O gastric sleeve H/O oophorectomy History of appendectomy History of cholecystectomy Family & Social History Social History: household members significant other Prior Living Arrangements House Safety & Behavioral: Feels Safe in Current Yes Environment Been Physically Hurt or No Threatened By a Person Tobacco & Substance use: Smoking Status Never smoker alcohol intake current alcohol intake frequency holiday/special occasion Substance Use Type marijuana Comment: Patient has a fiancee, who is the primary call or contact centre manager. She also has 3 children who are teenagers. 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 Meds Home Medications and Allergies Home Medications Medication Instructions Recorded Confirmed Type alprazolam 0.5 mg tablet 0.5 mg PO PRN PRN Anxiety 08/13/21 05/26/22 History ondansetron 4 mg disintegrating 4 mg PO Q6-8H PRN nausea and 11/27/21 05/26/22 Rx tablet vomiting #10 tabs hydrochlorothiazide 12.5 mg PO DAILY 05/23/22 05/26/22 History levofloxacin 500 mg tablet 500 mg PO DAILY #3 tabs 05/24/22 05/26/22 Rx metoclopramide HCl 5 mg tablet 5 mg PO Q6H PRN nausea and 05/24/22 05/26/22 Rx (Reglan) vomiting #20 tabs pantoprazole 40 mg tablet,delayed 40 mg PO BID #60 tabs 05/24/22 05/26/22 Rx release (Protonix) Allergies Allergy/AdvReac Type Severity Reaction Status Date / Time benzonatate Allergy Unknown Verified 03/04/22 08:42 [From Tessalon Perles] escitalopram [From Lexapro] Allergy Unknown Verified 03/04/22 08:42 NSAIDS (Non-Steroidal AdvReac Mild Verified 03/04/22 08:42 Anti-Inflamma From LEXAPRO AdvReac Unknown PSYCHOSIS Uncoded 03/04/22 08:42 HALLUCINATIONS Review of Systems Review of Systems Narrative: All other systems reviewed, negative. Patient denies any chest pain, no shortness of breath, no dyspnea on exertion, no relevant pertinent positive review of system that may concern for chest pain or cardiac etiology. All other systems reviewed, negative other than as mentioned above. Exam Vital Signs (past 8 hours): - 05/26/22 17:31 05/26/22 18:00 05/26/22 18:01 Temperature 98.5 F Pulse Rate 98 H 84 Respiratory Rate 18 22 Blood Pressure 178/107 H 184/95 H Pulse Oximetry 99 100 Oxygen Delivery Method Room Air 05/26/22 18:31 05/26/22 19:00 05/26/22 19:18 Temperature Pulse Rate 73 74 75 Respiratory Rate 24 24 Blood Pressure Pulse Oximetry 100 99 99 Oxygen Delivery Method 05/26/22 19:18 05/26/22 19:30 05/26/22 19:31 Temperature Pulse Rate 73 74 Respiratory Rate 26 H 22 Blood Pressure 188/101 H Pulse Oximetry 100 100 Oxygen Delivery Method 05/26/22 19:31 05/26/22 20:00 05/26/22 20:01 Temperature Pulse Rate 74 72 Respiratory Rate 55 H 38 H Blood Pressure 200/91 H Pulse Oximetry 99 99 Oxygen Delivery Method 05/26/22 20:01 05/26/22 20:30 05/26/22 20:31 Temperature Pulse Rate 76 78 Respiratory Rate 40 H 40 H Blood Pressure 186/106 H Pulse Oximetry 99 99 Oxygen Delivery Method 05/26/22 20:31 05/26/22 21:00 05/26/22 21:01 Temperature Pulse Rate 90 86 Respiratory Rate 45 H 42 H Blood Pressure 186/88 H Pulse Oximetry 99 99 Oxygen Delivery Method 05/26/22 21:01 05/26/22 21:30 05/26/22 21:31 Temperature Pulse Rate 91 H 89 Respiratory Rate 45 H 38 H Blood Pressure 188/85 H Pulse Oximetry 99 100 Oxygen Delivery Method 05/26/22 21:31 05/26/22 22:00 05/26/22 22:01 Temperature Pulse Rate 81 75 Respiratory Rate 30 H 24 Blood Pressure 176/100 H Pulse Oximetry 99 99 Oxygen Delivery Method 05/26/22 22:01 Temperature Pulse Rate Respiratory Rate Blood Pressure 173/109 H Pulse Oximetry Oxygen Delivery Method Oxygen Delivery Method Room Air Narrative Exam Narrative: Patient does seem to be uncomfortable because of the pain, standing up, moving around, feels better when she tried to bend forward, abdominal examination tender especially in left upper quadrant and some guarding but no rebound tenderness. Bowel sounds heard okay. No organomegaly that I can appreciate, all other quadrant examination seems to be benign. Cardiovascular, pulmonary, constitutional, HEENT, respiratory, neuro, psych, skin examination done, negative other than as mentioned above. Objective Labs Result Diagrams: 05/26/22 17:40 05/26/22 17:40 Labs: Laboratory Results - last 24 hr 05/26/22 05/26/22 05/26/22 17:40 17:40 17:40 WBC 11.9 H RBC 4.70 Hgb 13.5 Hct 39.3 MCV 83.7 MCH 28.7 MCHC 34.3 RDW 13.7 Plt Count 341 Neut % (Auto) 69.2 Lymph % (Auto) 24.3 L [place] % (Auto) 5.7 Eos % (Auto) 0.3 L Baso % (Auto) 0.5 Neut # (Auto) 8200 H Lymph # (Auto) 2900 [place] # (Auto) 700 Eos # (Auto) 0 Baso # (Auto) 100 Sodium 141 Potassium 3.7 Chloride 106 Carbon Dioxide 18 L BUN 12 Creatinine 0.57 Estimated GFR > 60 BUN/Creatinine Ratio 21.1 Glucose 115 H Lactate 1.5 Calcium 9.7 Total Bilirubin 1.7 H AST 38 H ALT 50 H Alkaline Phosphatase 63 Total Creatine Kinase CK-MB (CK-2) CK-MB (CK-2) Rel Index Troponin I Total Protein 8.5 H Albumin 5.0 Globulin 3.5 Albumin/Globulin Ratio 1.4 Lipase 101 Procalcitonin Serum , Qual Urine Color Urine Appearance Urine pH Ur Specific [place] Urine Protein Urine Glucose (UA) Urine Ketones Urine Occult Blood Urine Nitrate Urine Bilirubin Urine Urobilinogen Ur Leukocyte Esterase Urine RBC Urine WBC Ur Squamous Epith Cells Urine Bacteria Ur Culture Indicated? SARS-CoV-2 (PCR) 05/26/22 05/26/22 05/26/22 17:40 17:40 20:22 WBC RBC Hgb Hct MCV MCH MCHC RDW Plt Count Neut % (Auto) Lymph % (Auto) [place] % (Auto) Eos % (Auto) Baso % (Auto) Neut # (Auto) Lymph # (Auto) [place] # (Auto) Eos # (Auto) Baso # (Auto) Sodium Potassium Chloride Carbon Dioxide BUN Creatinine Estimated GFR BUN/Creatinine Ratio Glucose Lactate Calcium Total Bilirubin AST ALT Alkaline Phosphatase Total Creatine Kinase 47 CK-MB (CK-2) TNP CK-MB (CK-2) Rel Index TNP Troponin I < 0.012 Total Protein Albumin Globulin Albumin/Globulin Ratio Lipase Procalcitonin < 0.03 Serum , Qual Negative Urine Color Yellow Urine Appearance Clear Urine pH 6.5 Ur Specific [place] <=1.005 Urine Protein Negative Urine Glucose (UA) Negative Urine Ketones 3+ H Urine Occult Blood Trace-lysed Urine Nitrate Negative Urine Bilirubin Negative Urine Urobilinogen 0.2 Ur Leukocyte Esterase Negative Urine RBC 0-1/hpf Urine WBC 0-1/hpf Ur Squamous Epith Cells 0-1 /hpf Urine Bacteria None seen Ur Culture Indicated? Cult not indicated SARS-CoV-2 (PCR) 05/26/22 22:00 WBC RBC Hgb Hct MCV MCH MCHC RDW Plt Count Neut % (Auto) Lymph % (Auto) [place] % (Auto) Eos % (Auto) Baso % (Auto) Neut # (Auto) Lymph # (Auto) [place] # (Auto) Eos # (Auto) Baso # (Auto) Sodium Potassium Chloride Carbon Dioxide BUN Creatinine Estimated GFR BUN/Creatinine Ratio Glucose Lactate Calcium Total Bilirubin AST ALT Alkaline Phosphatase Total Creatine Kinase CK-MB (CK-2) CK-MB (CK-2) Rel Index Troponin I Total Protein Albumin Globulin Albumin/Globulin Ratio Lipase Procalcitonin Serum , Qual Urine Color Urine Appearance Urine pH Ur Specific [place] Urine Protein Urine Glucose (UA) Urine Ketones Urine Occult Blood Urine Nitrate Urine Bilirubin Urine Urobilinogen Ur Leukocyte Esterase Urine RBC Urine WBC Ur Squamous Epith Cells Urine Bacteria Ur Culture Indicated? SARS-CoV-2 (PCR) Negative Assessment & Plan Assessment and plan (1) Acute colitis: Status: Acute (2) Intractable abdominal pain: Status: Acute (3) Intractable vomiting with nausea: Status: Acute (4) Elevated bilirubin: Status: Acute (5) Vomiting: Status: Acute Assessment & Plan narrative: Patient will be admitted for observation overnight Given acute colitis unclear etiology we will consider this as infectious, we will treat with Rocephin and Flagyl If patient not improving consider GI evaluation in the morning Continue IV fluids, IV antiemetics, IV pain medication Right upper quadrant ultrasound to further evaluate biliary system in the morning SCDs for DVT prophylaxis, ppi for GI prophylaxis Patient is full code Offered to talk to family members, patient requested to call only if it is emergency Care plan extensively discussed with the patient, answered all questions, if pain improves, consider discharge in the morning with outpatient follow up Patient will need a colonoscopy once the colitis improves, plan at the time of the discharge Time Spent With Patient Critical Care time: I spent a total of [] minutes of critical care time on this patient's care today; this time is exclusive of procedural time.
--- NOTE | 2022-05-27 03:24 | PC.NURSE ---
Upon admission, pt was very talkative and cooperative w/ staff. Pt states unable to keep anything down for 5 days, LBM yesterday stating it was diarrhea. Pt stating 8/10 pain in L upper quadrant w/ nausea. 1 mg dilaudid given. Pt requesting water, RN reminded pt that down in ED she failed PO test. Pt tried a small amount of water and tolerated well. Since dilaudid was given, pt has been sleeping well.
[2022-05-27 05:35] VITALS: BP 114/76; PULSE 59; RESP 14; TEMP 36.9; O2SAT 100
[2022-05-27] MEDS: GABAPENTIN 100 MG CAPSULE PO ×2 (06:34→20:43)
[2022-05-27] MEDS: metroNIDAZOLE 500 MG/100 ML PIGGYBACK 100 MG IV ×3 (06:34→23:01)
[2022-05-27 06:46] LABS: Add Manual Diff / Slide Review NO; Basophils Absolute Auto 100 /uL (0-100); Basophils Percent Auto 0.7 % (0-2); Eosinophils Absolute Auto 100 /uL (0-450); Eosinophils Percent Auto 0.9 % (2-4); Hemoglobin 11.2 g/dL (12.0-16.0); Lymphocytes Absolute Auto 4500 /uL (1100-4500); Lymphocytes Percent Auto 39.8 % (25-40); Mean Corpuscular Hemoglobin 28.5 PG (26-34); Mean Corpuscular Volume 83.8 fL (80-100); Monocytes Absolute Auto 1000 /uL (0-900); Monocytes Percent Auto 8.6 % (3-14); Neutrophils Absolute Auto 5600 /uL (1500-7000); Platelet Count 280 X10^3/uL (150-400); Red Blood Cell Count 3.93 X10^6/uL (4.0-5.2); Red Cell Distribution Width 13.7 % (11.6-14.8); White Blood Cell Count 11.2 X10^3/uL (4.5-11.0)
[2022-05-27] MEDS: METOCLOPRAMIDE 10 MG/2 ML INJ IV ×2 (06:48→20:43)
[2022-05-27 07:00] LABS: Alanine Aminotransferase 35 IU/L (<35); Albumin 3.7 g/dL (3.5-5.0); Albumin Globulin Ratio 1.4 (1.0-2.8); Alkaline Phosphatase 42 U/L (38-126); Aspartate Aminotransferase 24 IU/L (14-36); BUN Creatinine Ratio 13.2 (6-22); Bilirubin Total 1.1 mg/dL (0.2-1.3); Blood Urea Nitrogen 5 mg/dL (7-17); Carbon Dioxide 24 mmol/L (22-32); Chloride 106 mmol/L (98-107); Estimated Glomerular Filt Rate > 60 mL/min (>60); Globulin 2.6 g/dL (1.7-4.1); Glucose 104 mg/dL (70-100); HEMOLYSIS < 15 (0-50); Potassium 2.9 mmol/L (3.4-5.1); Sodium 137 mmol/L (137-145); Total Protein 6.3 g/dL (6.3-8.2)
[2022-05-27 07:57] VITALS: BP 127/71; PULSE 80; RESP 16; TEMP 36.8; O2SAT 100
[2022-05-27] MEDS: PANTOPRAZOLE 40 MG VIAL IV ×2 (08:44→20:43)
--- NOTE | 2022-05-27 09:03 | CM.DANOTE ---
Addendum entered by Karin Brooks R.N. 05/27/22 10:18: Spoke with pt this morning to inquire about pharmacy and medication issue. Per pt, she states that the pharmacy could not fill the rx's in time and the pharmacy told her, if you want them faster, you need to go somewhere else. Pt has been using this pharmacy and has never had an issue. Pt is going to switch to either [facility] or [facility]. Pt spouse at the bedside. No other needs identified. Pt to discharge home when medically stable. Karin Brooks RN/ROOPA Original Note: DCP Assessment: Payor: [place] PCP: Sheryl Timmons MD Pt is a 41 y.o. F who returns to the hospital following admission on 05/22 for sepsis. Pt was discharged on Thursday 05/24. Pt presented to the ED this visit with fatigue , dizziness, weakness, and lightheadedness. Pt admitted for further management of symptoms. DCP unable to meet with pt this morning as she is in the room sleeping. DCP reviewed chart from previous admission. Pt is independent at baseline. Pt spouse, Bobo, is emergency contact. Pt drives POV. No needs at this time. DCP will attempt to visit with pt later on in the day. P: Once pt is medically stable for discharge, pt to discharge home via POV. Karin Brooks RN/ROOPA Discharge Planning/Care Management CM Discharge Assessment Start: 05/27/22 08:45 Freq: Status: Active Protocol: Document 05/27/22 09:02 POP (Rec: 05/27/22 09:03 POP [id number]) Discharge Planning Assessment Assigned Timber Appraiser Karin Brooks RN/ROOPA Advance Directives? No History Provided By Medical Record Has Patient been admitted in last 30 Yes days? Comment Was admitted on 05/22/22 Prior Living Arrangements House Household Members significant other Type of transporation used prior to Drives own vehicle admit Independent with ADL's Yes Comment Home w/ S.O. expected Discharge Plan Home Transportation Arrangement S.O. Referrals Initiated None needed Review Status In Process Please Provide Date Initial DC 05/27/22 Assessment Was Performed Next Review Type Continued Stay Review
[2022-05-27] MEDS: HYDROMORPHONE 0.5 MG INJ 1 MG IV (10:14)
[2022-05-27] MEDS: POTASSIUM CHLORIDE IN WATER 10 MEQ/100 ML PIGGYBACK 100 MEQ IV (10:15)
--- NOTE | 2022-05-27 10:30 | PC.NURSE ---
Addendum entered by Karin Hassan R.N. 05/27/22 14:44: Patient tolerating her potassium iv well, rate decreased as her hand was burning where the iv is. Given pain medication x1 and helpful for abdominal pain. is sleeping in room. Original Note: Patient just given 1mg of iv dilaudid and helpful to abdomen discomfort. She is getting 6 iv potassiums as her level was down to 2.9. S.O. is at bedside.
[2022-05-27 10:55] VITALS: BP 129/72; PULSE 67; RESP 18; TEMP 36.7; O2SAT 97
[2022-05-27] MEDS: POTASSIUM CHLORIDE IN WATER 10 MEQ/100 ML PIGGYBACK 75 MEQ IV ×5 (11:32→18:19)
--- NOTE | 2022-05-27 12:37 | PM.PN.1 ---
Subjective Subjective Date Patient Seen: 05/27/22 Time Patient Seen: 08:00 Interval history: She is feeling improved. She is still nauseous and has luq abdominal pain but they are not as severe as when she presented to the ED. Exam Vital Signs (past 8 hours): - 05/27/22 05:35 05/27/22 07:57 05/27/22 10:55 Temperature 98.5 F 98.2 F 98.1 F Pulse Rate 59 L 80 67 Respiratory Rate 14 16 18 Blood Pressure 114/76 127/71 129/72 Pulse Oximetry 100 100 97 Oxygen Flow Rate 0 0 0 Oxygen Delivery Method Room Air Oxygen Flow Rate 0 Narrative Exam Narrative: GEN: mild distress due to pain CV: regular rate and rhythm, no murmurs PULM: clear bilaterally ABD: soft, +luq tenderness, no rebound/guarding Objective Labs Result Diagrams: 05/27/22 06:00 05/27/22 06:00 Labs: Laboratory Results - last 24 hr 05/26/22 05/26/22 05/26/22 17:40 17:40 17:40 WBC 11.9 H RBC 4.70 Hgb 13.5 Hct 39.3 MCV 83.7 MCH 28.7 MCHC 34.3 RDW 13.7 Plt Count 341 Neut % (Auto) 69.2 Lymph % (Auto) 24.3 L [place] % (Auto) 5.7 Eos % (Auto) 0.3 L Baso % (Auto) 0.5 Neut # (Auto) 8200 H Lymph # (Auto) 2900 [place] # (Auto) 700 Eos # (Auto) 0 Baso # (Auto) 100 Sodium 141 Potassium 3.7 Chloride 106 Carbon Dioxide 18 L BUN 12 Creatinine 0.57 Estimated GFR > 60 BUN/Creatinine Ratio 21.1 Glucose 115 H Lactate 1.5 Calcium 9.7 Total Bilirubin 1.7 H AST 38 H ALT 50 H Alkaline Phosphatase 63 Total Creatine Kinase CK-MB (CK-2) CK-MB (CK-2) Rel Index Troponin I Total Protein 8.5 H Albumin 5.0 Globulin 3.5 Albumin/Globulin Ratio 1.4 Lipase 101 Procalcitonin Serum , Qual Urine Color Urine Appearance Urine pH Ur Specific [place] Urine Protein Urine Glucose (UA) Urine Ketones Urine Occult Blood Urine Nitrate Urine Bilirubin Urine Urobilinogen Ur Leukocyte Esterase Urine RBC Urine WBC Ur Squamous Epith Cells Urine Bacteria Ur Culture Indicated? SARS-CoV-2 (PCR) 05/26/22 05/26/22 05/26/22 17:40 17:40 20:22 WBC RBC Hgb Hct MCV MCH MCHC RDW Plt Count Neut % (Auto) Lymph % (Auto) [place] % (Auto) Eos % (Auto) Baso % (Auto) Neut # (Auto) Lymph # (Auto) [place] # (Auto) Eos # (Auto) Baso # (Auto) Sodium Potassium Chloride Carbon Dioxide BUN Creatinine Estimated GFR BUN/Creatinine Ratio Glucose Lactate Calcium Total Bilirubin AST ALT Alkaline Phosphatase Total Creatine Kinase 47 CK-MB (CK-2) TNP CK-MB (CK-2) Rel Index TNP Troponin I < 0.012 Total Protein Albumin Globulin Albumin/Globulin Ratio Lipase Procalcitonin < 0.03 Serum , Qual Negative Urine Color Yellow Urine Appearance Clear Urine pH 6.5 Ur Specific [place] <=1.005 Urine Protein Negative Urine Glucose (UA) Negative Urine Ketones 3+ H Urine Occult Blood Trace-lysed Urine Nitrate Negative Urine Bilirubin Negative Urine Urobilinogen 0.2 Ur Leukocyte Esterase Negative Urine RBC 0-1/hpf Urine WBC 0-1/hpf Ur Squamous Epith Cells 0-1 /hpf Urine Bacteria None seen Ur Culture Indicated? Cult not indicated SARS-CoV-2 (PCR) 05/26/22 05/27/22 05/27/22 22:00 06:00 06:00 WBC 11.2 H RBC 3.93 L Hgb 11.2 L Hct 33.0 L MCV 83.8 MCH 28.5 MCHC 34.0 RDW 13.7 Plt Count 280 Neut % (Auto) 50.0 Lymph % (Auto) 39.8 [place] % (Auto) 8.6 Eos % (Auto) 0.9 L Baso % (Auto) 0.7 Neut # (Auto) 5600 Lymph # (Auto) 4500 [place] # (Auto) 1000 H Eos # (Auto) 100 Baso # (Auto) 100 Sodium 137 Potassium 2.9 L Chloride 106 Carbon Dioxide 24 BUN 5 L Creatinine 0.38 L Estimated GFR > 60 BUN/Creatinine Ratio 13.2 Glucose 104 H Lactate Calcium 8.0 L Total Bilirubin 1.1 AST 24 ALT 35 H Alkaline Phosphatase 42 Total Creatine Kinase CK-MB (CK-2) CK-MB (CK-2) Rel Index Troponin I Total Protein 6.3 Albumin 3.7 Globulin 2.6 Albumin/Globulin Ratio 1.4 Lipase Procalcitonin Serum , Qual Urine Color Urine Appearance Urine pH Ur Specific [place] Urine Protein Urine Glucose (UA) Urine Ketones Urine Occult Blood Urine Nitrate Urine Bilirubin Urine Urobilinogen Ur Leukocyte Esterase Urine RBC Urine WBC Ur Squamous Epith Cells Urine Bacteria Ur Culture Indicated? SARS-CoV-2 (PCR) Negative PFSH Medical History Bipolar disorder Celiac disease GERD with apnea Hypertension Polycystic ovary disease Surgical History H/O gastric sleeve H/O oophorectomy History of appendectomy History of cholecystectomy Social History household members: significant other Smoking Status: Never smoker alcohol intake: current Assessment & Plan Assessment and plan (1) Acute colitis: Status: Acute (2) Intractable abdominal pain: Status: Acute (3) Intractable vomiting with nausea: Status: Acute (4) Elevated bilirubin: Status: Acute (5) Vomiting: Status: Acute Assessment & Plan narrative: 1. Acute colitis with nausea and vomiting -continue iv ceftriaxone and flagyl -continue pain meds, IV zofran, IV reglan -if not improving consider EGD/colo 2. Hypokalemia secondary to vomiting -replete IV when not tolerating PO 3. Transminitis -improving -continue to trend -if worsens will need further workups Time Spent With Patient Critical Care time: I spent a total of [] minutes of critical care time on this patient's care today; this time is exclusive of procedural time.
[2022-05-27] MEDS: DEXTROSE 5%-0.9% NS 1,000 ML 100 ML IV (14:22)
[2022-05-27 15:00] VITALS: BP 146/77; PULSE 53; RESP 17; TEMP 36.3; O2SAT 100
[2022-05-27 15:09] LABS: Calcium 8.1 mg/dL (8.4-10.2); Carbon Dioxide 26 mmol/L (22-32); Chloride 103 mmol/L (98-107); Estimated Glomerular Filt Rate > 60 mL/min (>60); Glucose 95 mg/dL (70-100); HEMOLYSIS < 15 (0-50); Potassium 3.2 mmol/L (3.4-5.1); Sodium 137 mmol/L (137-145)
[2022-05-27 15:10] LABS: BUN Creatinine Ratio 4.4 (6-22); Blood Urea Nitrogen 2 mg/dL (7-17)
[2022-05-27 17:15] LABS: HEMOLYSIS < 15 (0-50); Potassium 3.7 mmol/L (3.4-5.1)
[2022-05-27 17:18] LABS: Magnesium 1.8 mg/dL (1.6-2.3)
[2022-05-27 19:45] VITALS: BP 139/81; PULSE 63; RESP 18; TEMP 36.7; O2SAT 99
[2022-05-27 20:15] LABS: HEMOLYSIS 32 (0-50); Potassium 3.4 mmol/L (3.4-5.1)
[2022-05-27] MEDS: cefTRIAXone 1,000 MG in SODIUM CHLORIDE 0.9% 100 ML 200 MG IV (20:43)
[2022-05-27 23:50] VITALS: BP 129/71; PULSE 60; RESP 18; TEMP 37.2; O2SAT 98
[2022-05-28] MEDS: HYDROMORPHONE 0.5 MG INJ 1 MG IV (00:13)
--- NOTE | 2022-05-28 01:37 | PC.NURSE ---
Addendum entered by Mike Landry R.N. 05/28/22 03:28: RN consulted hospitalist Hannah Sheldon for potential K riders, fluids w/ potassium, or any other way of increasing potassium for pt as last K+ was 3.4 after 6 K riders during the day, along with pt not tolerating anything PO. Hospitalist stated lets wait until the morning. RN then requested lab checks for K+ and Hospitalist would put them in, they did. Original Note: Pt still having periods of tolerating PO well and periods of not tolerating at all. Pt has had sips of water throughout shift then nausea and vomit. RN advised pt to hold off on water at this time. Pt stated 8/10 pain in abdomen, dilaudid was given. At beginning of shift pt stated it looks like im going home tomorrow RN asked if pt heard this from hospitalist, pt said no im just feeling better.
[2022-05-28] MEDS: DEXTROSE 5%-0.9% NS 1,000 ML 100 ML IV ×2 (04:21→14:45)
[2022-05-28 04:52] VITALS: BP 128/86; PULSE 59; RESP 18; TEMP 37.2; O2SAT 96
[2022-05-28] MEDS: GABAPENTIN 100 MG CAPSULE PO ×3 (06:18→20:43)
[2022-05-28] MEDS: metroNIDAZOLE 500 MG/100 ML PIGGYBACK 100 MG IV ×3 (06:18→23:45)
[2022-05-28 06:34] LABS: Hematocrit 30.9 % (36-46); Hemoglobin 10.7 g/dL (12.0-16.0); Mean Corpuscular HGB Conc 34.6 % (30-36); Mean Corpuscular Volume 83.7 fL (80-100); Platelet Count 236 X10^3/uL (150-400); Red Blood Cell Count 3.68 X10^6/uL (4.0-5.2)
[2022-05-28 06:43] LABS: Magnesium 1.8 mg/dL (1.6-2.3)
[2022-05-28 06:44] LABS: Calcium 8.1 mg/dL (8.4-10.2); Carbon Dioxide 26 mmol/L (22-32); Chloride 106 mmol/L (98-107); Estimated Glomerular Filt Rate > 60 mL/min (>60); Glucose 100 mg/dL (70-100); HEMOLYSIS < 15 (0-50); Potassium 3.3 mmol/L (3.4-5.1); Sodium 140 mmol/L (137-145)
[2022-05-28 06:45] LABS: BUN Creatinine Ratio 4.5 (6-22); Blood Urea Nitrogen < 2 mg/dL (7-17)
--- NOTE | 2022-05-28 07:49 | PC.NURSE ---
Assess- Patient is alert and oriented x4, she complains of abdominal pain, will give patient some dilaudid. IVF infusing and patient tolerating this well. She is only taking small sips and still has pain. No nausea or emesis as of now.
[2022-05-28 07:57] VITALS: BP 141/90; PULSE 61; RESP 17; TEMP 36.6; O2SAT 100
[2022-05-28] MEDS: HYDROMORPHONE 1 MG INJ IV ×3 (08:01→23:40)
--- NOTE | 2022-05-28 08:49 | DIET.CONS2 ---
Dietary Inpatient Consultation Note Admission Date: 05/26/2022 21:33 Pt celiac so changed diet to Gluten-free and indicated gluten allergy in allergy list. Diet: 05/28/22 Lunch Gluten Free Diet Diet Modifications: Nutrition Percent Meal Consumed 10% 05/27/22 17:26 Percent Meal Consumed 25% 05/27/22 12:31 Percent Meal Consumed 50% 05/27/22 09:00 Electronically Signed by: Bethanie Rios 05/28/22 08:49 Clinical Dietitian [address] [id number]
[2022-05-28] MEDS: PANTOPRAZOLE 40 MG VIAL IV ×2 (10:39→20:43)
[2022-05-28 12:00] VITALS: BP 129/74; PULSE 57; RESP 18; TEMP 36.4; O2SAT 100
[2022-05-28] MEDS: METOCLOPRAMIDE 10 MG/2 ML INJ IV ×3 (13:05→23:45)
[2022-05-28] MEDS: OXYCODONE IR 5 MG TABLET PO ×2 (13:05→20:55)
[2022-05-28] MEDS: POTASSIUM CHLORIDE 20 MEQ TAB 40 MEQ PO ×2 (13:05→18:21)
--- NOTE | 2022-05-28 15:06 | PM.PN.1 ---
Subjective Subjective Date Patient Seen: 05/28/22 Time Patient Seen: 08:00 Interval history: She feels she is improving today. But she still has nausea, she vomitted last night. She has LUQ abdominal pain. She had diarrhea but this is chronic for her. Exam Vital Signs (past 8 hours): - 05/28/22 07:57 05/28/22 12:00 Temperature 97.8 F 97.6 F Pulse Rate 61 57 L Respiratory Rate 17 18 Blood Pressure 141/90 H 129/74 Pulse Oximetry 100 100 Oxygen Flow Rate 0 0 Oxygen Delivery Method Room Air Oxygen Flow Rate 0 Narrative Exam Narrative: GEN: no acute distress CV: regular rate and rhythm, no murmurs PULM: clear bilaterally ABD: soft, +luq tenderness, no rebound/guarding Objective Labs Result Diagrams: 05/28/22 06:24 05/28/22 06:24 Labs: Laboratory Results - last 24 hr 05/27/22 05/27/22 05/27/22 14:27 16:40 16:40 WBC RBC Hgb Hct MCV MCH MCHC RDW Plt Count Sodium 137 Potassium 3.2 L 3.7 Chloride 103 Carbon Dioxide 26 BUN 2 L Creatinine 0.45 L Estimated GFR > 60 BUN/Creatinine Ratio 4.4 L Glucose 95 Calcium 8.1 L Magnesium 1.8 05/27/22 05/28/22 05/28/22 19:55 06:24 06:24 WBC 7.0 RBC 3.68 L Hgb 10.7 L Hct 30.9 L MCV 83.7 MCH 29.0 MCHC 34.6 RDW 14.0 Plt Count 236 Sodium Potassium 3.4 Chloride Carbon Dioxide BUN Creatinine Estimated GFR BUN/Creatinine Ratio Glucose Calcium Magnesium 1.8 05/28/22 06:24 WBC RBC Hgb Hct MCV MCH MCHC RDW Plt Count Sodium 140 Potassium 3.3 L Chloride 106 Carbon Dioxide 26 BUN < 2 L Creatinine 0.44 L Estimated GFR > 60 BUN/Creatinine Ratio 4.5 L Glucose 100 Calcium 8.1 L Magnesium [facility] Medical History Bipolar disorder Celiac disease GERD with apnea Hypertension Polycystic ovary disease Surgical History H/O gastric sleeve H/O oophorectomy History of appendectomy History of cholecystectomy Social History household members: significant other Smoking Status: Never smoker alcohol intake: current Assessment & Plan Assessment and plan (1) Acute colitis: Status: Acute (2) Intractable abdominal pain: Status: Acute (3) Intractable vomiting with nausea: Status: Acute (4) Elevated bilirubin: Status: Acute (5) Vomiting: Status: Acute Assessment & Plan narrative: 1. Acute colitis with nausea and vomiting -continue iv ceftriaxone and flagyl -continue pain meds, IV zofran, IV reglan -other etiologies of vomiting are gastritis, biliary gastritis, or less likely stricture after sleeve gastrectomy -if not improving consider EGD/colo 2. Hypokalemia secondary to vomiting, improving -replete IV when not tolerating PO 3. Transminitis -improving -continue to trend -if worsens will need further workups Time Spent With Patient Critical Care time: I spent a total of [] minutes of critical care time on this patient's care today; this time is exclusive of procedural time.
[2022-05-28 16:00] VITALS: BP 120/72; PULSE 60; RESP 17; TEMP 36.3; O2SAT 98
[2022-05-28 19:50] VITALS: BP 147/88; PULSE 91; RESP 19; TEMP 36.7; O2SAT 99
[2022-05-28] MEDS: cefTRIAXone 1,000 MG in SODIUM CHLORIDE 0.9% 100 ML 200 MG IV (20:43)
[2022-05-29 01:00] VITALS: BP 137/85; PULSE 74; RESP 18; TEMP 36.8; O2SAT 97
[2022-05-29] MEDS: METOCLOPRAMIDE 10 MG/2 ML INJ IV ×2 (05:03→12:24)
[2022-05-29] MEDS: GABAPENTIN 100 MG CAPSULE PO ×2 (05:03→13:22)
[2022-05-29] MEDS: metroNIDAZOLE 500 MG/100 ML PIGGYBACK 100 MG IV (05:04)
[2022-05-29] MEDS: DEXTROSE 5%-0.9% NS 1,000 ML 100 ML IV (05:08)
[2022-05-29 06:37] LABS: Hematocrit 31.6 % (36-46); Mean Corpuscular HGB Conc 34.6 % (30-36); Mean Corpuscular Volume 83.7 fL (80-100); Platelet Count 255 X10^3/uL (150-400); Red Blood Cell Count 3.78 X10^6/uL (4.0-5.2); White Blood Cell Count 9.1 X10^3/uL (4.5-11.0)
[2022-05-29] MEDS: OXYCODONE IR 5 MG TABLET PO (06:38)
[2022-05-29 06:47] LABS: BUN Creatinine Ratio 4.7 (6-22); Blood Urea Nitrogen < 2 mg/dL (7-17); Calcium 8.2 mg/dL (8.4-10.2); Carbon Dioxide 24 mmol/L (22-32); Chloride 105 mmol/L (98-107); Estimated Glomerular Filt Rate > 60 mL/min (>60); Glucose 101 mg/dL (70-100); HEMOLYSIS < 15 (0-50); Potassium 3.6 mmol/L (3.4-5.1); Sodium 138 mmol/L (137-145)
[2022-05-29] MEDS: PANTOPRAZOLE 40 MG VIAL IV (08:32)
[2022-05-29 08:53] VITALS: BP 125/68; PULSE 85; RESP 18; TEMP 36.5; O2SAT 100
[2022-05-29 12:28] VITALS: BP 175/98; PULSE 61; RESP 18; TEMP 37.1; O2SAT 100
[2022-05-29] MEDS: HYDROMORPHONE 1 MG INJ IV (12:39)
--- NOTE | 2022-05-29 16:14 | PM.DS.1 ---
History of Present Illness History of Present Illness Date Patient Seen: 05/29/22 Chief complaint: sepsis/abdn pain inpt 5 days ago Narrative: Is tolerating food. Minimal left lower quadrant pain. Eager to go home. Discharge Providers Provider Date of admission: 05/26/22 21:33 Discharge Date: 05/29/22 Primary care physician: Sheryl Timmons MD Discharge provider: Piedad Mehta MD Summary Hospital Course Discharge Diagnosis: Most responsible diagnosis: Colitis Pre admit diagnosis: Colitis Intractable abdominal pain Leukocytosis Hypokalemia Recent history with hospitalization of sepsis secondary to UTI (April 2022) Post Admit diagnoses: None Secondary diagnoses: Bipolar disorder Celiac disease GERD with apnea Hypertension Polycystic ovary disease H/O gastric sleeve H/O oophorectomy History of appendectomy History of cholecystectomy Hospital Course: Patient presented with intractable abdominal pain, intractable vomiting. With CT evidence of colitis of the right colon as well as small bowel loops in the left upper quadrant. Patient was provided with intravenous fluids, nausea vomiting controlled with metoclopramide as well as well as lorazepam. Pain was controlled with Dilaudid, OxyContin and gabapentin. Ceftriaxone 1 g IV every 24 hours and metronidazole 500 mg IV every 8 hours was provided. Prior to discharge the patient was transition to oral medications to be continued for 7 days. This included Augmentin 500 mg/125 mg p.o. t.i.d. and metronidazole 500 mg p.o. t.i.d. for total of 7 days. Gabapentin was continued is a gabapentin 100 mg p.o. t.i.d. for 20 capsules and the patient can also use Tylenol. Patient was advised to stick to fluid diet until her pain is resolved. Status at Discharge Cognitive/behavioral status at discharge: at baseline, oriented Functional status at discharge: independent ambulation Overall status at discharge: patient is progressing back to baseline Time Spent with Patient Time spent: Greater than 30 minutes Exam Vital Signs (past 8 hours): - 05/29/22 08:53 05/29/22 12:28 Temperature 97.7 F 98.8 F Pulse Rate 85 61 Respiratory Rate 18 18 Blood Pressure 125/68 175/98 H Pulse Oximetry 100 100 Oxygen Flow Rate 0 0 Oxygen Delivery Method Room Air Oxygen Flow Rate 0 Objective Labs Result Diagrams: 05/29/22 06:12 05/29/22 06:12 Labs: Laboratory Results - last 24 hr 05/29/22 05/29/22 06:12 06:12 WBC 9.1 RBC 3.78 L Hgb 11.0 L Hct 31.6 L MCV 83.7 MCH 29.0 MCHC 34.6 RDW 14.0 Plt Count 255 Sodium 138 Potassium 3.6 Chloride 105 Carbon Dioxide 24 BUN < 2 L Creatinine 0.43 L Estimated GFR > 60 BUN/Creatinine Ratio 4.7 L Glucose 101 H Calcium 8.2 L PFSH Medical History Bipolar disorder Celiac disease GERD with apnea Hypertension Polycystic ovary disease Surgical History H/O gastric sleeve H/O oophorectomy History of appendectomy History of cholecystectomy Social History household members: significant other Smoking Status: Never smoker alcohol intake: current Discharge Plan Discharge Plan Patient Disposition: Home Discharge orders & Medications Prescriptions: New gabapentin 100 mg Capsule 100 mg PO Q8HR Qty: 20 0RF amoxicillin-pot clavulanate [Augmentin] 500-125 mg tablet 1 tab PO TID Qty: 21 0RF metronidazole 500 mg tablet 500 mg PO TID Qty: 21 0RF Continued ondansetron 4 mg tablet,disintegrating 4 mg PO Q6-8H PRN (Reason: nausea and vomiting) Qty: 10 0RF Label Comments: Unable to get from pharmacy. pt called multiple times alprazolam 0.5 mg tablet 0.5 mg PO PRN PRN (Reason: Anxiety) Label Comments: take 1 tablet by mouth twice a day if needed Rx Instructions: needs to refill, but takes it. hydrochlorothiazide 12.5 mg PO DAILY pantoprazole [Protonix] 40 mg tablet,delayed release (DR/EC) 40 mg PO BID Qty: 60 0RF Label Comments: unable to get from pharmacy. pt called multiple times. metoclopramide HCl [Reglan] 5 mg tablet 5 mg PO Q6H PRN (Reason: nausea and vomiting) Qty: 20 0RF Label Comments: unable to get from pharmacy. pt called multiple times Discontinued levofloxacin 500 mg tablet 500 mg PO DAILY Qty: 3 0RF Label Comments: unable to get from pharmacy. called multiple times Follow up/Referrals: Sheryl Timmons MD [Primary Care Provider] - Visit Report/Discharge Packet Instructions: DI for Colitis Discharge Data Primary Care Provider: Sheryl Timmons Attending Provider: Kentrell Rae
--- NOTE | 2022-06-03 17:06 | PC.NURSE ---
Late entry; Ceftriaxone infusion initiated 05/26at 2142 complete at 2213. Flagyl infusion initiated 05/26 at 2302 complete 05/27 at 0003.
== END 2022-05-29 14:33 | disposition home or self-care (01) ==
LOC: ED 18:08 → AC 21:34
PROVIDERS: Emergency Medicine; Internal Medicine; Nurse Practitioner Family; Admitting Provider Family Medicine; Emergency Provider Emergency Medicine; PCP Internal Medicine; Referring Provider Emergency Medicine; Visit Provider Family Medicine
DX: K52.9 Noninfective gastroenteritis and colitis, unspecified (principal); D72.829 Elevated white blood cell count, unspecified; E87.6 Hypokalemia; I10 Essential (primary) hypertension; K90.0 Celiac disease; Z20.822 Contact with and (suspected) exposure to COVID-19
CPT/HCPCS: 36415; 74177; 80048; 80053; 81001; 82550; 82962; 83605; 83690; 83735; 84132; 84145; 84484; 84703; 85025; 85027; 87635; 93005; 93010; 96361; 96365; 96366; 96367; 96375; 96376; 99284; C9803; G0378; C9113; J0696; J1170; J2060; J2405; J2765; Q9967

== ENCOUNTER 2022-10-21 13:13 | Emergency (ER) | payer MEDICARE, OTHER, MEDICAID, SELFPAY ==
[2022-05-26 22:34] VITALS: BMI 32.3
[2022-10-21] VITALS (13 sets, daily range): BP systolic 124–156; BP diastolic 66–92; PULSE 72–108; RESP 16–35; TEMP 36.9; O2SAT 97–100; BMI 32.3
--- NOTE | 2022-10-21 13:42 | PC.NURSE ---
Pt started to c/o midsternal heartburn type pain. EKG ordered
[2022-10-21 13:46] LABS: Add Manual Diff / Slide Review NO; Basophils Absolute Auto 100 /uL (0-100); Basophils Percent Auto 0.8 % (0-2); Eosinophils Absolute Auto 100 /uL (0-450); Eosinophils Percent Auto 0.7 % (2-4); Hematocrit 41.8 % (36-46); Lymphocytes Absolute Auto 4400 /uL (1100-4500); Lymphocytes Percent Auto 36.3 % (25-40); Mean Corpuscular HGB Conc 33.4 % (30-36); Mean Corpuscular Hemoglobin 27.6 PG (26-34); Mean Corpuscular Volume 82.7 fL (80-100); Monocytes Absolute Auto 800 /uL (0-900); Monocytes Percent Auto 6.7 % (3-14); Neutrophils Absolute Auto 6800 /uL (1500-7000); Neutrophils Percent Auto 55.5 % (50-75); Platelet Count 417 X10^3/uL (150-400); Red Blood Cell Count 5.06 X10^6/uL (4.0-5.2); Red Cell Distribution Width 13.9 % (11.6-14.8); White Blood Cell Count 12.2 X10^3/uL (4.5-11.0)
[2022-10-21 13:57] LABS: Alanine Aminotransferase 26 IU/L (<35); Albumin 4.8 g/dL (3.5-5.0); Albumin Globulin Ratio 1.4 (1.0-2.8); Alkaline Phosphatase 75 U/L (38-126); Aspartate Aminotransferase 25 IU/L (14-36); BUN Creatinine Ratio 14.3 (6-22); Bilirubin Total 0.9 mg/dL (0.2-1.3); Blood Urea Nitrogen 7 mg/dL (7-17); Calcium 9.6 mg/dL (8.4-10.2); Carbon Dioxide 25 mmol/L (22-32); Chloride 99 mmol/L (98-107); Creatine Kinase 43 U/L (30-135); Estimated Glomerular Filt Rate > 60 mL/min (>60); Globulin 3.4 g/dL (1.7-4.1); Glucose 108 mg/dL (70-100); HEMOLYSIS < 15 (0-50); Potassium 3.5 mmol/L (3.4-5.1); Sodium 137 mmol/L (137-145); Total Protein 8.2 g/dL (6.3-8.2)
[2022-10-21 13:58] LABS: Lactate (Lactic Acid) 1.6 mmol/L (0.7-2.1)
[2022-10-21] MEDS: LACTATED RINGERS 1,779 ML 593 ML IV (14:00)
[2022-10-21 14:09] LABS: Troponin I < 0.012 ng/mL (0.01-0.034)
[2022-10-21] MEDS: ONDANSETRON 4 MG/2 ML INJ IV (14:12)
[2022-10-21 14:14] LABS: Procalcitonin < 0.03 ng/mL (<0.5)
[2022-10-21 14:18] LABS: Appearance Urine UA SL CLOUDY; Bilirubin Urine UA NEGATIVE (NEGATIVE); Color Urine UA YELLOW; Glucose Urine UA NEGATIVE (Negative); Ketones Urine UA NEGATIVE (NEGATIVE); Leukocyte Esterase Urine UA TRACE (NEGATIVE); Nitrite Urine UA NEGATIVE (Negative); Occult Blood Urine UA NEGATIVE (Negative); Protein Urine UA NEGATIVE (Negative); Specific Gravity Urine UA 1.025 (1.000-1.035); Urobilinogen Urine UA 0.2 E.U./dL (0.2); pH Urine UA 5.5 (4.5-8.0)
[2022-10-21 14:23] LABS: Bacteria Urine Many (>30); Culture Indicated Urine Specimen Cultured; RBC Urine None Seen (0-5/HPF); Squamous Epithelial Cell Urine 1-5 /HPF (0-5/HPF); WBC Urine 5-10/HPF (0-5/HPF)
--- NOTE | 2022-10-21 14:28 | ED_ITS ---
HPI - Female Genitourinary General Chief complaint: Urogenital-Female Stated complaint: Dr sky pos. kidney infect. lower back pain Time Seen by Provider: 10/21/22 13:29 Source: patient Mode of arrival: Ambulatory History of Present Illness HPI Narrative: 41-year-old female nonsmoker with history of prior pyelonephritis, kidney stones and a previous hysterectomy presents at the request of her primary care providers for evaluation of right flank pain and fever over the past day or 2. She states that in many ways this feels similar to when she had previous kidney stones and infection. Her pain is most notable in the right flank and at times in her right groin, made worse by motion and improves with rest with occasional episodes of worsening symptoms without obvious provocation. She has had no fever, but does endorse chills. She denies runny nose, sore throat or cough. She has no chest pain or shortness of breath. She denies diarrhea or constipation. She denies any obvious urinary complaints such as dysuria, frequency or urgency but states that with prior episodes of pyelonephritis she did not either. She denies vaginal bleeding or discharge Related Data Home Medications Medication Instructions Recorded Confirmed alprazolam 0.5 mg tablet 0.5 mg PO PRN PRN Anxiety 08/13/21 05/26/22 hydrochlorothiazide 12.5 mg PO DAILY 05/23/22 05/26/22 Previous Rx's Medication Instructions Recorded ondansetron 4 mg disintegrating 4 mg PO Q6-8H PRN nausea and 11/27/21 tablet vomiting #10 tabs metoclopramide HCl 5 mg tablet 5 mg PO Q6H PRN nausea and 05/24/22 (Reglan) vomiting #20 tabs pantoprazole 40 mg tablet,delayed 40 mg PO BID #60 tabs 05/24/22 release (Protonix) amoxicillin 500 mg-potassium 1 tab PO TID #21 tabs 05/29/22 clavulanate 125 mg tablet (Augmentin) gabapentin 100 mg capsule 100 mg PO Q8HR #20 caps 05/29/22 metronidazole 500 mg tablet 500 mg PO TID #21 tabs 05/29/22 cephalexin 500 mg capsule 500 mg PO BID #20 caps 10/21/22 hydrocodone 5 mg-acetaminophen 325 1 tab PO Q4-6H PRN pain #10 tabs 10/21/22 mg tablet ondansetron 4 mg disintegrating 4 mg PO TID-QID PRN nausea and 10/21/22 tablet vomiting #10 tabs Allergies Allergy/AdvReac Type Severity Reaction Status Date / Time benzonatate Allergy Unknown Verified 10/21/22 13:27 [From Tessalon Perles] escitalopram [From Lexapro] Allergy Unknown Verified 10/21/22 13:27 gluten Allergy Verified 10/21/22 13:27 NSAIDS (Non-Steroidal AdvReac Mild Verified 10/21/22 13:27 Anti-Inflamma From LEXAPRO AdvReac Unknown PSYCHOSIS Uncoded 03/04/22 08:42 HALLUCINATIONS Review of Systems Review of Systems Narrative: GENERAL: See HPI HEENT: Denies sinus pain, ear pain, sore throat, difficulty swallowing, dizziness. RESPIRATORY: Denies dyspnea, cough, wheezing, hemoptysis, sputum. CARDIOVASCULAR: Denies chest pain, palpitations, orthopnea, edema, GASTROINTESTINAL: See HPI : See HPI MUSCULOSKELETAL: denies weakness, joint pain, or bony pain SKIN: Denies rash, skin lesions, or other NEUROLOGIC: Denies weakness, headache, numbness, change in speech, confusion, seizures, incoordination. PSYCHIATRIC: No concerning psychosocial issues. 12 point review of systems is negative except for those stated above Patient History Medical History Bipolar disorder Celiac disease GERD with apnea Hypertension Polycystic ovary disease Surgical History H/O gastric sleeve H/O oophorectomy History of appendectomy History of cholecystectomy alcohol intake frequency: holidays/special occasions only Substance Use Type: marijuana Exam Narrative Exam Narrative: GENERAL: [41] year old patient appears stated age. Well-developed patient, in mild distress. Obviously uncomfortable HEAD: Atraumatic. Normocephalic. EYES: Pupils equal round and reactive. Extraocular motions intact. No scleral icterus. No injection or drainage. ENT: Nose without bleeding, purulent drainage. Throat without erythema, tonsillar hypertrophy or exudate. Airway patent. NECK: Trachea midline. Non tender CARDIOVASCULAR: Tachycardic but regular rhythm without murmurs, gallops, or rubs. RESPIRATORY: Clear to auscultation. Breath sounds equal bilaterally. No wheezes, rales, or rhonchi. GASTROINTESTINAL: Abdomen soft, tender in the right lower quadrant, nondistended. Bowel sounds present EXTREMITIES: No edema or joint tenderness. BACK: Nontender without deformity or crepitance. No flank tenderness. NEURO: AOx3. SKIN: No rash or erythema of visible areas Initial Vital Signs Initial Vital Signs: Vital Signs Temperature 98.4 F 10/21/22 13:22 Pulse Rate 108 H 10/21/22 13:22 Respiratory Rate 20 10/21/22 13:22 Blood Pressure 156/83 H 10/21/22 13:22 Pulse Oximetry 99 10/21/22 13:22 Oxygen Delivery Method 10/21/22 13:22 Course Orders Ordered: Discontinued Medications Hydromorphone HCl (Hydromorphone 0.5 Mg Inj) 0.5 mg IV NOW ONE Stop: 10/21/22 16:13 Last Admin: 10/21/22 16:20 Dose: 0.5 mg Documented By: SHAYNA Lactated Ringer's (Lactated Ringers) 1,779 mls @ 593 mls/hr 30 ml/kg infuse over 3 hr (1779 ml) IV NOW ONE Stop: 10/21/22 16:28 Last Infusion: 10/21/22 18:06 Dose: 0 mls/hr Documented By: Admin: 10/21/22 14:00 Dose: 593 mls/hr Documented By: SHAYNA Ceftriaxone Sodium 1,000 mg/ (Sodium Chloride) 100 mls @ 200 mls/hr IV NOW ONE Stop: 10/21/22 17:07 Last Infusion: 10/21/22 18:05 Dose: 0 mls/hr Documented By: Admin: 10/21/22 17:25 Dose: 200 mls/hr Documented By: SHAYNA Ketorolac Tromethamine (Ketorolac 30 Mg/Ml Vial) 15 mg IV NOW ONE Stop: 10/21/22 14:38 Last Admin: 10/21/22 15:03 Dose: 15 mg Documented By: ROBERTA Ondansetron HCl (Ondansetron 4 Mg/2 Ml Inj) 4 mg IV NOW ONE Stop: 10/21/22 14:10 Last Admin: 10/21/22 14:12 Dose: 4 mg Documented By: SHAYNA Reevaluation(s) Reevaluation #1: Continues to improve with above-stated therapies Reevaluation #2: Heart rate down into the 70s Vital Signs Vital signs: Vital Signs - 8 hr 10/21/22 13:22 10/21/22 13:55 10/21/22 14:00 Temperature 98.4 F Pulse Rate 108 H 107 H 107 H Respiratory Rate 20 32 H Blood Pressure 156/83 H Pulse Oximetry 99 98 98 Oxygen Delivery Method Room Air 10/21/22 14:20 10/21/22 14:20 10/21/22 14:30 Temperature Pulse Rate 92 H 96 H Respiratory Rate 26 H 20 Blood Pressure 132/66 Pulse Oximetry 100 99 Oxygen Delivery Method 10/21/22 14:31 10/21/22 14:31 10/21/22 15:00 Temperature Pulse Rate 92 H 94 H Respiratory Rate 29 H 35 H Blood Pressure 153/92 H Pulse Oximetry 99 100 Oxygen Delivery Method 10/21/22 15:01 10/21/22 15:01 10/21/22 15:30 Temperature Pulse Rate 89 81 Respiratory Rate 29 H Blood Pressure 139/82 Pulse Oximetry 99 100 Oxygen Delivery Method 10/21/22 16:00 10/21/22 16:36 10/21/22 17:00 Temperature Pulse Rate 73 85 73 Respiratory Rate 29 H 22 Blood Pressure Pulse Oximetry 99 97 97 Oxygen Delivery Method 10/21/22 17:09 10/21/22 17:09 Temperature Pulse Rate 72 Respiratory Rate 16 Blood Pressure 124/75 Pulse Oximetry 99 Oxygen Delivery Method MDM - Female Genitourinary Lab Data 10/21/22 13:40 10/21/22 13:40 Labs: Lab Results 10/21/22 10/21/22 10/21/22 Range/Units 13:40 13:40 13:40 WBC 12.2 H (4.5-11.0) X10^3/uL RBC 5.06 (4.0-5.2) X10^6/uL Hgb 14.0 (12.0-16.0) g/dL Hct 41.8 (36-46) % MCV 82.7 (80-100) fL MCH 27.6 (26-34) PG MCHC 33.4 (30-36) % RDW 13.9 (11.6-14.8) % Plt Count 417 H (150-400) X10^3/uL Neut % (Auto) 55.5 (50-75) % Lymph % (Auto) 36.3 (25-40) % [place] % (Auto) 6.7 (3-14) % Eos % (Auto) 0.7 L (2-4) % Baso % (Auto) 0.8 (0-2) % Neut # (Auto) 6800 (6156-2398) /uL Lymph # (Auto) 4400 (6826-9957) /uL [place] # (Auto) 800 (0-900) /uL Eos # (Auto) 100 (0-450) /uL Baso # (Auto) 100 (0-100) /uL Sodium 137 (137-145) mmol/L Potassium 3.5 (3.4-5.1) mmol/L Chloride 99 (98-107) mmol/L Carbon Dioxide 25 (22-32) mmol/L BUN 7 (7-17) mg/dL Creatinine 0.49 L (0.52-1.04) mg/dL Estimated GFR > 60 (>60) mL/min BUN/Creatinine Ratio 14.3 (6-22) Glucose 108 H (70-100) mg/dL Lactate 1.6 (0.7-2.1) mmol/L Calcium 9.6 (8.4-10.2) mg/dL Total Bilirubin 0.9 (0.2-1.3) mg/dL AST 25 (14-36) IU/L ALT 26 (<35) IU/L Alkaline Phosphatase 75 (38-126) U/L Total Creatine Kinase 43 (30-135) U/L CK-MB (CK-2) TNP CK-MB (CK-2) Rel Index TNP Troponin I < 0.012 (0.01-0.034) ng/mL Total Protein 8.2 (6.3-8.2) g/dL Albumin 4.8 (3.5-5.0) g/dL Globulin 3.4 (1.7-4.1) g/dL Albumin/Globulin Ratio 1.4 (1.0-2.8) Procalcitonin < 0.03 (<0.5) ng/mL Urine Color Urine Appearance Urine pH (4.5-8.0) Ur Specific [place] (1.000-1.035) Urine Protein (Negative) Urine Glucose (UA) (Negative) g/dL Urine Ketones (NEGATIVE) Urine Occult Blood (Negative) Urine Nitrate (Negative) Urine Bilirubin (NEGATIVE) Urine Urobilinogen (0.2) E.U./dL Ur Leukocyte Esterase (NEGATIVE) Urine RBC (0-5/HPF) Urine WBC (0-5/HPF) Ur Squamous Epith Cells (0-5/HPF) Urine Bacteria (None) Ur Culture Indicated? 10/21/22 Range/Units 13:40 WBC (4.5-11.0) X10^3/uL RBC (4.0-5.2) X10^6/uL Hgb (12.0-16.0) g/dL Hct (36-46) % MCV (80-100) fL MCH (26-34) PG MCHC (30-36) % RDW (11.6-14.8) % Plt Count (150-400) X10^3/uL Neut % (Auto) (50-75) % Lymph % (Auto) (25-40) % [place] % (Auto) (3-14) % Eos % (Auto) (2-4) % Baso % (Auto) (0-2) % Neut # (Auto) (4574-6715) /uL Lymph # (Auto) (6880-9620) /uL [place] # (Auto) (0-900) /uL Eos # (Auto) (0-450) /uL Baso # (Auto) (0-100) /uL Sodium (137-145) mmol/L Potassium (3.4-5.1) mmol/L Chloride (98-107) mmol/L Carbon Dioxide (22-32) mmol/L BUN (7-17) mg/dL Creatinine (0.52-1.04) mg/dL Estimated GFR (>60) mL/min BUN/Creatinine Ratio (6-22) Glucose (70-100) mg/dL Lactate (0.7-2.1) mmol/L Calcium (8.4-10.2) mg/dL Total Bilirubin (0.2-1.3) mg/dL AST (14-36) IU/L ALT (<35) IU/L Alkaline Phosphatase (38-126) U/L Total Creatine Kinase (30-135) U/L CK-MB (CK-2) CK-MB (CK-2) Rel Index Troponin I (0.01-0.034) ng/mL Total Protein (6.3-8.2) g/dL Albumin (3.5-5.0) g/dL Globulin (1.7-4.1) g/dL Albumin/Globulin Ratio (1.0-2.8) Procalcitonin (<0.5) ng/mL Urine Color Yellow Urine Appearance Sl cloudy Urine pH 5.5 (4.5-8.0) Ur Specific [place] 1.025 (1.000-1.035) Urine Protein Negative (Negative) Urine Glucose (UA) Negative (Negative) g/dL Urine Ketones Negative (NEGATIVE) Urine Occult Blood Negative (Negative) Urine Nitrate Negative (Negative) Urine Bilirubin Negative (NEGATIVE) Urine Urobilinogen 0.2 (0.2) E.U./dL Ur Leukocyte Esterase Trace H (NEGATIVE) Urine RBC None seen (0-5/HPF) Urine WBC 5-10/hpf H (0-5/HPF) Ur Squamous Epith Cells 1-5 /hpf (0-5/HPF) Urine Bacteria Many (>30) H (None) Ur Culture Indicated? Specimen cultured Imaging Data CT scan - abdomen/pelvis: Radiologist's Impression: Close Abdomen/Pelvis CT (Signed) Joe Gonzales - 10/21/22 Pelvis Ultrasound (Signed) Joe Gonzales - 10/21/22 Renal Ultrasound (Signed) Joe Gonzales - 10/21/22 Telemetry Strips 05/29/22 Abdomen/Pelvis CT (Signed) Arnold Page - 05/26/22 Telemetry Strips 05/23/22 Abdomen/Pelvis CT (Signed) Paramjit Marr - 05/22/22 Vascular Ultrasound (Signed) Paramjit Marr - 03/08/22 Lower Extremity MRI (Signed) Navarro Ceballos - 03/08/22 Vascular Ultrasound (Signed) Rasheed Tanner - 03/01/22 Pelvis Ultrasound (Signed) Rasheed Tanner - 11/27/21 Knee X-Ray (Signed) Chase Steele - 11/02/21 Abdomen/Pelvis CT (Signed) Mark Anthony Novak - 08/16/[address] [address] [address] Scan Report Signed Patient: Janet Capellan MR#: [id number] : 1980 Acct:[id number] Age/Sex: 41 / F Date of Service: 10/21/22 Loc: ED Accession Number: [id number] ?? Procedure: CT kidney ureter bladder (KUB) Ordering Provider: Horace Kan D.O. PROCEDURE:? CT KIDNEY URETER BLADDER (KUB) ? INDICATIONS:? severe flank pain ? TECHNIQUE:? Axial sections were acquired from the lung bases to the pubic symphysis.? Coronal and sagittal reformats were performed.? For radiation dose reduction, the following was used: ?automated exposure control, adjustment of mA and/or kV according to patient si ze.? ? COMPARISON:? [facility], CT, CT ABDOMEN PELVIS W CON, 05/26/2022, 18:20. ? FINDINGS:? Partially imaged lung bases are clear.? No urinary tract calculus, hydronephrosis, or hydroureter.? No perinephric fat stranding.? Urinary bladder unremarkable.? Grossly normal unenhanced CT appearance of the liver, pancreas, and adrenal glands.? Cholecystectomy.? Splenic cyst with peripheral calcifications.? Spleen otherwise normal.? Sleeve gastrectomy changes.? No abnormally dilated or obviously thickened loop of bowel.? No pericolonic or mesenteric inflammatory changes.? No free air or free fluid.? No acute bone finding. ? IMPRESSION:? ? No acute finding.? No urolithiasis or urinary tract obstruction. ? Dictated by: Joe Gonzales M.D. on 10/21/2022 at 16:40 ? ? Approved by: Joe Gonzales M.D. on 10/21/2022 at 16:41 ? US - SENIOR PACKAGING ENGINEER: Radiologist's Impression: [address] [address] Ultrasound Report Signed Patient: Janet Capellan MR#: [id number] : 1980 Acct:[id number] Age/Sex: 41 / F Date of Service: 10/21/22 Loc: ED Accession Number: [id number] ?? Procedure: US pelvic limited Ordering Provider: Horace Kan D.O. PROCEDURE:? US PELVIC LIMITED ? INDICATIONS:? SEVERE RIGHT LOWER QUADRANT PAIN HISTORY OF HEMORRHAGIC CYST ? TECHNIQUE:? Real-time transabdominal scanning was performed of the pelvic organs, with image documentation.? ? COMPARISON:? None. ? FINDINGS:? ? Hysterectomy.? Left oophorectomy.? Right ovary measures 2.3 x 1.9 x 2.0 cm and is normal in appearance.? No free fluid. ? ? IMPRESSION:? Normal appearance of the right ovary.? Status post left oophorectomy and hysterectomy. ? ? We strive to produce accurate, complete, and clear reports of imaging services. To assist us in improving patient care, this report was composed using standard report templates and voice recognition software. Therefore, it may contain abnormal punctuation, insertions and/or omissions. Occasional wrong-word or sound-alike substitutions may occur. Though we review the report and make efforts to correct it, we do recommend that the report be read carefully in proper context to recognize any text inaccuracies. ? ? Dictated by: Joe Gonzales M.D. on 10/21/2022 at 16:19 ? ? Approved by: Joe Gonzales M.D. on 10/21/2022 at 16:20 ? MDM Narrative Medical decision making narrative: CC: 41-year-old female with right flank and lower quadrant pain with chills, concern for pyelonephritis versus other Complicating co-morbidities: Prior pyelonephritis, kidney stones Data collected from: Patient Medical records reviewed: Multiple prior emergency department visit notes Differential considered, but not limited to: Kidney stone, pyelonephritis, ovarian torsion, ovarian cyst, appendicitis versus other Exam documented above, pertinent findings include: Pain in right lower quadrant and right flank, initially tachycardic but improved with fluids and antibiotics as well as pain control Lab Test results independently reviewed as above. Pertinent findings: Leukocytosis without evidence of anemia, electrolytes normal, renal function normal, LFTs normal. Urine notes leuk esterase and white blood cells along with bacteria, culture pending Independently reviewed EKG as above Imaging studies independently reviewed: Renal Ultrasound with a nonobstructing left renal calculus, no right-sided hydroureteronephrosis noted. Pelvic ultrasound suggest normal appearance of the right ovary, makes note of hysterectomy and left oophorectomy. CT KUB with no acute finding Treatments: Lactated Ringer's at 30 cc/kilogram of ideal body weight, Zofran, ketorolac, Dilaudid, Rocephin Re-evaluations: Significant improvement in pain as well as vital signs, initial elevated heart rate improved into the 70s. Pain controlled, patient tolerating orals Discussion: Patient with right flank pain and chills, patient evaluated for multiple potential diagnoses with possible early sepsis, cultures, labs, fluids and antibiotics have been administered. Urine consistent with infection and imaging suggests against any kidney stone or alternate diagnosis. She has a very reassuring response to typical therapies, pain control, she is tolerating orals and vital signs have stabilized. She is given extensive return precautions, questions answered to her apparent satisfaction Disposition: see below, along with detailed discharge instructions that have been reviewed with patient as well as indications for ED re-evaluation and additional outpatient follow up Discharge Plan Departure Patient Disposition: Home Clinical Impression: Pyelonephritis Instructions: DI for Kidney Infection Activity Restrictions/Additional Instructions: *You have been diagnosed with [right flank pain due to pyelonephritis. As we discussed the labs and imaging are otherwise very reassuring. There is no evidence of ovarian problem or kidney stone] *What to do: *Please continue to take your regular medications as directed. [ x] New medication prescriptions sent to your pharmacy: [facility] ] [ ] New medication written as a paper prescription [ ] No new medications given *Please follow up with your primary care provider in 2-3 days, call for an appointment. Let them know you were seen in the Emergency Department and that we ask that you be seen in follow up. We will electronically transmit a record of today's note if your PCP is in our system *If you do not have a primary care provider please contact the [facility] Resource line at [phone]. They will ask some questions about your medical history and help get you set up with a doctor in the community. *Return to Emergency Department if you should have any new, worsening or concerning symptoms, such as [fever greater than 101 F, shaking chills, worsening pain, persistent vomiting or other bothersome symptoms You have been prescribed a short course of narcotic medications. These are po tentially dangerous and addictive medications that should be used carefully. While on these medications you cannot drive or operate heavy machinery. Additionally, you cannot sign legal documents or perform any duties such as this. 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 Please understand that we cannot provide further refills of narcotics or controlled substances through the ED and your pain management will need to be through your Primary Care Provider] Prescriptions: New hydrocodone-acetaminophen 5-325 mg tablet 1 tab PO Q4-6H PRN (Reason: pain) Qty: 10 0RF cephalexin 500 mg capsule 500 mg PO BID Qty: 20 0RF ondansetron 4 mg tablet,disintegrating 4 mg PO TID-QID PRN (Reason: nausea and vomiting) Qty: 10 0RF No Action ondansetron 4 mg tablet,disintegrating 4 mg PO Q6-8H PRN (Reason: nausea and vomiting) Qty: 10 0RF Label Comments: Unable to get from pharmacy. pt called multiple times gabapentin 100 mg Capsule 100 mg PO Q8HR Qty: 20 0RF amoxicillin-pot clavulanate [Augmentin] 500-125 mg tablet 1 tab PO TID Qty: 21 0RF metronidazole 500 mg tablet 500 mg PO TID Qty: 21 0RF alprazolam 0.5 mg tablet 0.5 mg PO PRN PRN (Reason: Anxiety) Label Comments: take 1 tablet by mouth twice a day if needed Rx Instructions: needs to refill, but takes it. hydrochlorothiazide 12.5 mg PO DAILY pantoprazole [Protonix] 40 mg tablet,delayed release (DR/EC) 40 mg PO BID Qty: 60 0RF Label Comments: unable to get from pharmacy. pt called multiple times. metoclopramide HCl [Reglan] 5 mg tablet 5 mg PO Q6H PRN (Reason: nausea and vomiting) Qty: 20 0RF Label Comments: unable to get from pharmacy. pt called multiple times Referrals: Shreyl Timmons MD [Primary Care Provider] - Stand Alone Forms: Patient Portal/API, Work Release Note
--- NOTE | 2022-10-21 14:37 | DI.US.S_ITS ---
PROCEDURE: US RENAL COMPLETE INDICATIONS: SEVERE RT FLANK PAIN TECHNIQUE: Real-time scanning was performed of the kidneys and bladder, with image documentation. COMPARISON: None. FINDINGS: Shadowing left renal calculus measuring 8 mm. No hydronephrosis on the left. Right kidney normal in appearance with no hydronephrosis or shadowing calculus. Normal size and cortical thickness of both kidneys. Urinary bladder normal. IMPRESSION: Nonobstructing left renal calculus measuring 8 mm. No right renal calculus or hydroureteronephrosis. Dictated by: Joe Gonzales M.D. on 10/21/2022 at 16:07 Approved by: Joe Gonzales M.D. on 10/21/2022 at 16:08
--- NOTE | 2022-10-21 14:40 | DI.US.S_ITS ---
PROCEDURE: US PELVIC LIMITED INDICATIONS: SEVERE RIGHT LOWER QUADRANT PAIN HISTORY OF HEMORRHAGIC CYST TECHNIQUE: Real-time transabdominal scanning was performed of the pelvic organs, with image documentation. COMPARISON: None. FINDINGS: Hysterectomy. Left oophorectomy. Right ovary measures 2.3 x 1.9 x 2.0 cm and is normal in appearance. No free fluid. IMPRESSION: Normal appearance of the right ovary. Status post left oophorectomy and hysterectomy. We strive to produce accurate, complete, and clear reports of imaging services. To assist us in improving patient care, this report was composed using standard report templates and voice recognition software. Therefore, it may contain abnormal punctuation, insertions and/or omissions. Occasional wrong-word or sound-alike substitutions may occur. Though we review the report and make efforts to correct it, we do recommend that the report be read carefully in proper context to recognize any text inaccuracies. Dictated by: Joe Gonzales M.D. on 10/21/2022 at 16:19 Approved by: Joe Gonzales M.D. on 10/21/2022 at 16:20
[2022-10-21] MEDS: KETOROLAC 30 MG/ML VIAL 15 MG IV (15:03)
--- NOTE | 2022-10-21 16:12 | DI.CT.S_ITS ---
PROCEDURE: CT KIDNEY URETER BLADDER (KUB) INDICATIONS: severe flank pain TECHNIQUE: Axial sections were acquired from the lung bases to the pubic symphysis. Coronal and sagittal reformats were performed. For radiation dose reduction, the following was used: automated exposure control, adjustment of mA and/or kV according to patient size. COMPARISON: [facility], CT, CT ABDOMEN PELVIS W CON, 05/26/2022, 18:20. FINDINGS: Partially imaged lung bases are clear. No urinary tract calculus, hydronephrosis, or hydroureter. No perinephric fat stranding. Urinary bladder unremarkable. Grossly normal unenhanced CT appearance of the liver, pancreas, and adrenal glands. Cholecystectomy. Splenic cyst with peripheral calcifications. Spleen otherwise normal. Sleeve gastrectomy changes. No abnormally dilated or obviously thickened loop of bowel. No pericolonic or mesenteric inflammatory changes. No free air or free fluid. No acute bone finding. IMPRESSION: No acute finding. No urolithiasis or urinary tract obstruction. Dictated by: Joe Gonzales M.D. on 10/21/2022 at 16:40 Approved by: Joe Gonzales M.D. on 10/21/2022 at 16:41
[2022-10-21] MEDS: HYDROMORPHONE 0.5 MG INJ IV (16:20)
[2022-10-21] MEDS: cefTRIAXone 1,000 MG in SODIUM CHLORIDE 0.9% 100 ML 200 MG IV (17:25)
[2022-10-22 16:18] LABS: Enterococcus species Not Detected (Not Detect)
[2022-10-22 16:19] LABS: Acinetobacter baumannii Not Detected (Not Detect); Candida albicans Not Detected (Not Detect); Candida glabrata Not Detected (Not Detect); Candida krusei Not Detected (Not Detect); Candida parapsilosis Not Detected (Not Detect); Candida tropicalis Not Detected (Not Detect); E. coli Not Detected (Not Detect); Enterobacter cloacae complex Not Detected (Not Detect); Enterobacteriaceae species Not Detected (Not Detect); Haemophilus influenzae Not Detected (Not Detect); Listeria monocytogenes Not Detected (Not Detect); Methicillin-resistant gene Not Detected (Not Detect); Neisseria meningitidis Not Detected (Not Detect); Proteus species Not Detected (Not Detect); Pseudomonas aeruginosa Not Detected (Not Detect); Serratia marcescens Not Detected (Not Detect); Staphylococcus species Detected (Not Detect); Streptococcus agalactiae (Gr B Not Detected (Not Detect); Streptococcus pneumonia Not Detected (Not Detect); Streptococcus pyogenes (Gr A) Not Detected (Not Detect); Streptococcus species Not Detected (Not Detect)
== END 2022-10-21 18:07 | disposition home or self-care (01) ==
PROVIDERS: Emergency Provider Emergency Medicine; PCP Internal Medicine
DX: N12 Tubulo-interstitial nephritis, not specified as acute or chronic (principal); Z87.442 Personal history of urinary calculi; B96.20 Unspecified Escherichia coli [E. coli] as the cause of diseases classified elsewhere; R07.9 Chest pain, unspecified
CPT/HCPCS: 36415; 74176; 76770; 76857; 80053; 81001; 82550; 83605; 84145; 84484; 85025; 87040; 87077; 87086; 87150; 87186; 93005; 93010; 96365; 96375; 99284; J0696; J1170; J1885; J2405

== ENCOUNTER 2022-10-28 14:13 | Emergency (ER) | payer MEDICARE, OTHER, MEDICAID, SELFPAY ==
[2022-05-26 22:34] VITALS: BMI 32.3
[2022-10-28 14:31] VITALS: BP 143/95; PULSE 79; RESP 17; TEMP 36.9; O2SAT 99; BMI 32.3
[2022-10-28 14:38] LABS: Appearance Urine UA CLOUDY; Bilirubin Urine UA NEGATIVE (NEGATIVE); Color Urine UA YELLOW; Glucose Urine UA NEGATIVE (Negative); Ketones Urine UA NEGATIVE (NEGATIVE); Leukocyte Esterase Urine UA 3+ (NEGATIVE); Nitrite Urine UA NEGATIVE (Negative); Occult Blood Urine UA TRACE-INTACT (Negative); Protein Urine UA NEGATIVE (Negative); Specific Gravity Urine UA 1.025 (1.000-1.035); Urobilinogen Urine UA 0.2 E.U./dL (0.2)
[2022-10-28 14:43] LABS: Pregnancy Test Urine Negative (Negative)
[2022-10-28 14:56] LABS: Add Manual Diff / Slide Review NO; Basophils Absolute Auto 0 /uL (0-100); Basophils Percent Auto 0.4 % (0-2); Eosinophils Absolute Auto 100 /uL (0-450); Eosinophils Percent Auto 0.9 % (2-4); Hematocrit 36.2 % (36-46); Lymphocytes Absolute Auto 2200 /uL (1100-4500); Lymphocytes Percent Auto 17.3 % (25-40); Mean Corpuscular HGB Conc 33.2 % (30-36); Mean Corpuscular Hemoglobin 27.7 PG (26-34); Mean Corpuscular Volume 83.5 fL (80-100); Monocytes Absolute Auto 900 /uL (0-900); Monocytes Percent Auto 7.3 % (3-14); Neutrophils Absolute Auto 9300 /uL (1500-7000); Neutrophils Percent Auto 74.1 % (50-75); Platelet Count 311 X10^3/uL (150-400); Red Blood Cell Count 4.33 X10^6/uL (4.0-5.2); Red Cell Distribution Width 14.1 % (11.6-14.8); White Blood Cell Count 12.6 X10^3/uL (4.5-11.0)
[2022-10-28 14:57] LABS: Bacteria Urine Few (2-10); RBC Urine 1-5/HPF (0-5/HPF); Squamous Epithelial Cell Urine 1-5 /HPF (0-5/HPF); WBC Urine 10-30/HPF (0-5/HPF)
[2022-10-28 14:58] LABS: Culture Indicated Urine Specimen Cultured
[2022-10-28] MEDS: PANTOPRAZOLE 40 MG VIAL IV (15:02)
[2022-10-28] MEDS: KETOROLAC 30 MG/ML VIAL 15 MG IV (15:02)
[2022-10-28 15:12] LABS: Lactate (Lactic Acid) 1.3 mmol/L (0.7-2.1)
[2022-10-28 15:13] LABS: Alanine Aminotransferase 23 IU/L (<35); Albumin 4.2 g/dL (3.5-5.0); Albumin Globulin Ratio 1.5 (1.0-2.8); Alkaline Phosphatase 48 U/L (38-126); Aspartate Aminotransferase 20 IU/L (14-36); BUN Creatinine Ratio 14.8 (6-22); Bilirubin Total 1.1 mg/dL (0.2-1.3); Blood Urea Nitrogen 8 mg/dL (7-17); Calcium 8.8 mg/dL (8.4-10.2); Carbon Dioxide 22 mmol/L (22-32); Chloride 106 mmol/L (98-107); Estimated Glomerular Filt Rate > 60 mL/min (>60); Globulin 2.8 g/dL (1.7-4.1); Glucose 104 mg/dL (70-100); HEMOLYSIS < 15 (0-50); Lipase 200 U/L (23-300); Sodium 138 mmol/L (137-145)
[2022-10-28 15:30] LABS: Procalcitonin < 0.03 ng/mL (<0.5)
--- NOTE | 2022-10-28 16:29 | ED_ITS ---
HPI - Female Genitourinary General Chief complaint: Urogenital-Female Stated complaint: LT flank pain/chills/vomiting/ T-1 Time Seen by Provider: 10/28/22 14:44 Source: patient Mode of arrival: Ambulatory History of Present Illness HPI Narrative: 41-year-old female nonsmoker with history of prior pyelonephritis, kidney stones prior hysterectomy presents with severe left-sided flank pain that came on suddenly and is associated with nausea and vomiting. She had been seen by myself about 1 week ago and had extensive workup for right-sided abdominal pain that included a CT, pelvic ultrasound and renal ultrasound and she had been treated for pyelonephritis. She was called following day with 1 of 2 cultures positive with staph aureus and this was thought to be a likely contaminant. She had been treated with cephalexin and doing well until the past 24 hours. She called earlier to checking gained advice and as I had seen her previously I asked her to come and see us. She is nauseated and without vomiting. Her pain is worse when she moves and improves with rest. She is not dizzy nor weak or lightheaded. Related Data Home Medications Medication Instructions Recorded Confirmed alprazolam 0.5 mg tablet 0.5 mg PO PRN PRN Anxiety 08/13/21 10/28/22 cephalexin 500 mg capsule 500 mg PO DAILY 10/28/22 10/28/22 hydrochlorothiazide 12.5 mg tablet 12.5 mg PO DAILY 10/28/22 10/28/22 phentermine 37.5 mg tablet 37.5 mg PO DAILY 10/28/22 10/28/22 ursodiol 250 mg tablet 250 mg PO DAILY 10/28/22 10/28/22 Previous Rx's Medication Instructions Recorded pantoprazole 40 mg tablet,delayed 40 mg PO BID #60 tabs 05/24/22 release (Protonix) ciprofloxacin HCl 500 mg tablet 500 mg PO BID #20 tabs 10/28/22 (Cipro) hydrocodone 5 mg-acetaminophen 325 1 tab PO Q4-6H PRN pain #20 tabs 10/28/22 mg tablet ondansetron 4 mg disintegrating 4 mg PO TID-QID PRN nausea and 10/28/22 tablet vomiting #10 tabs Allergies Allergy/AdvReac Type Severity Reaction Status Date / Time benzonatate Allergy Unknown Verified 10/28/22 14:37 [From Ezekiel Dhaliwal] gluten Allergy Verified 10/28/22 14:37 NSAIDS (Non-Steroidal AdvReac Mild Verified 10/28/22 14:37 Anti-Inflamma escitalopram [From Lexapro] AdvReac Unknown Hallucinati Verified 10/28/22 14:56 ng Review of Systems Review of Systems Narrative: GENERAL: See HPI HEENT: Denies sinus pain, ear pain, sore throat, difficulty swallowing, dizziness. RESPIRATORY: Denies dyspnea, cough, wheezing, hemoptysis, sputum. CARDIOVASCULAR: Denies chest pain, palpitations, orthopnea, edema, GASTROINTESTINAL: Denies nausea, vomiting, abdominal pain, diarrhea, constipation, melena. : See HPI MUSCULOSKELETAL: See HPI SKIN: Denies rash, skin lesions, or other NEUROLOGIC: Denies weakness, headache, numbness, change in speech, confusion, seizures, incoordination. PSYCHIATRIC: No concerning psychosocial issues. 12 point review of systems is negative except for those stated above Patient History Medical History Bipolar disorder Celiac disease GERD with apnea Hypertension Polycystic ovary disease Surgical History H/O gastric sleeve H/O oophorectomy History of appendectomy History of cholecystectomy alcohol intake frequency: holidays/special occasions only Substance Use Type: marijuana Exam Narrative Exam Narrative: GENERAL: [41] year old patient appears stated age. Well-developed patient, in mild distress. Obviously uncomfortable, sitting up rubbing flank, holding emesis bag HEAD: Atraumatic. Normocephalic. EYES: Pupils equal round and reactive. Extraocular motions intact. No scleral icterus. No injection or drainage. ENT: Nose without bleeding, purulent drainage. Throat without erythema, tonsillar hypertrophy or exudate. Airway patent. NECK: Trachea midline. Non tender CARDIOVASCULAR: Regular rate and rhythm without murmurs, gallops, or rubs. RESPIRATORY: Clear to auscultation. Breath sounds equal bilaterally. No wheezes, rales, or rhonchi. GASTROINTESTINAL: Abdomen soft, non-tender, nondistended. EXTREMITIES: No edema or joint tenderness. BACK: Left flank tender to palpation, CVA tenderness NEURO: AOx3. SKIN: No rash or erythema of visible areas Initial Vital Signs Initial Vital Signs: Vital Signs Temperature 98.5 F 10/28/22 14:31 Pulse Rate 79 10/28/22 14:31 Respiratory Rate 17 10/28/22 14:31 Blood Pressure 143/95 H 10/28/22 14:31 Pulse Oximetry 99 10/28/22 14:31 Oxygen Delivery Method 10/28/22 14:31 Course Orders Ordered: Discontinued Medications Hydromorphone HCl (Hydromorphone 0.5 Mg Inj) 0.5 mg IV NOW ONE Stop: 10/28/22 17:44 Last Admin: 10/28/22 17:47 Dose: 0.5 mg Documented By: MLMeghana Hydromorphone HCl (Hydromorphone 0.5 Mg Inj) 0.5 mg IV NOW ONE Stop: 10/28/22 19:03 Last Admin: 10/28/22 19:20 Dose: 0.5 mg Documented By: MLMeghana Ketorolac Tromethamine (Ketorolac 30 Mg/Ml Vial) 15 mg IV NOW ONE Stop: 10/28/22 14:53 Last Admin: 10/28/22 15:02 Dose: 15 mg Documented By: MLM Pantoprazole Sodium (Pantoprazole 40 Mg Vial) 40 mg IV NOW ONE Stop: 10/28/22 14:53 Last Admin: 10/28/22 15:02 Dose: 40 mg Documented By: CAROLYN Vital Signs Vital signs: Vital Signs - 8 hr 10/28/22 14:31 Temperature 98.5 F Pulse Rate 79 Respiratory Rate 17 Blood Pressure 143/95 H Pulse Oximetry 99 Oxygen Delivery Method Room Air MDM - Female Genitourinary Lab Data 10/28/22 14:42 10/28/22 14:42 Labs: Lab Results 10/28/22 10/28/22 10/28/22 Range/Units 14:30 14:30 14:42 WBC 12.6 H (4.5-11.0) X10^3/uL RBC 4.33 (4.0-5.2) X10^6/uL Hgb 12.0 (12.0-16.0) g/dL Hct 36.2 (36-46) % MCV 83.5 (80-100) fL MCH 27.7 (26-34) PG MCHC 33.2 (30-36) % RDW 14.1 (11.6-14.8) % Plt Count 311 (150-400) X10^3/uL Neut % (Auto) 74.1 (50-75) % Lymph % (Auto) 17.3 L (25-40) % [place] % (Auto) 7.3 (3-14) % Eos % (Auto) 0.9 L (2-4) % Baso % (Auto) 0.4 (0-2) % Neut # (Auto) 9300 H (1057-6000) /uL Lymph # (Auto) 2200 (5696-0431) /uL [place] # (Auto) 900 (0-900) /uL Eos # (Auto) 100 (0-450) /uL Baso # (Auto) 0 (0-100) /uL Sodium (137-145) mmol/L Potassium (3.4-5.1) mmol/L Chloride (98-107) mmol/L Carbon Dioxide (22-32) mmol/L BUN (7-17) mg/dL Creatinine (0.52-1.04) mg/dL Estimated GFR (>60) mL/min BUN/Creatinine Ratio (6-22) Glucose (70-100) mg/dL Lactate (0.7-2.1) mmol/L Calcium (8.4-10.2) mg/dL Total Bilirubin (0.2-1.3) mg/dL AST (14-36) IU/L ALT (<35) IU/L Alkaline Phosphatase (38-126) U/L Total Protein (6.3-8.2) g/dL Albumin (3.5-5.0) g/dL Globulin (1.7-4.1) g/dL Albumin/Globulin Ratio (1.0-2.8) Lipase (23-300) U/L Procalcitonin (<0.5) ng/mL Urine Color Yellow Urine Appearance Cloudy Urine pH 6.0 (4.5-8.0) Ur Specific [place] 1.025 (1.000-1.035) Urine Protein Negative (Negative) Urine Glucose (UA) Negative (Negative) g/dL Urine Ketones Negative (NEGATIVE) Urine Occult Blood Trace-intact (Negative) Urine Nitrate Negative (Negative) Urine Bilirubin Negative (NEGATIVE) Urine Urobilinogen 0.2 (0.2) E.U./dL Ur Leukocyte Esterase 3+ H (NEGATIVE) Urine RBC 1-5/hpf (0-5/HPF) Urine WBC 10-30/hpf H (0-5/HPF) Ur Squamous Epith Cells 1-5 /hpf (0-5/HPF) Urine Bacteria Few (2-10) H (None) Urine Yeast 5-10/hpf H (None) Ur Culture Indicated? Specimen cultured Urine Test Negative (Negative) 10/28/22 10/28/22 10/28/22 Range/Units 14:42 14:42 14:42 WBC (4.5-11.0) X10^3/uL RBC (4.0-5.2) X10^6/uL Hgb (12.0-16.0) g/dL Hct (36-46) % MCV (80-100) fL MCH (26-34) PG MCHC (30-36) % RDW (11.6-14.8) % Plt Count (150-400) X10^3/uL Neut % (Auto) (50-75) % Lymph % (Auto) (25-40) % [place] % (Auto) (3-14) % Eos % (Auto) (2-4) % Baso % (Auto) (0-2) % Neut # (Auto) (4509-8230) /uL Lymph # (Auto) (1833-8877) /uL [place] # (Auto) (0-900) /uL Eos # (Auto) (0-450) /uL Baso # (Auto) (0-100) /uL Sodium 138 (137-145) mmol/L Potassium 4.0 (3.4-5.1) mmol/L Chloride 106 (98-107) mmol/L Carbon Dioxide 22 (22-32) mmol/L BUN 8 (7-17) mg/dL Creatinine 0.54 (0.52-1.04) mg/dL Estimated GFR > 60 (>60) mL/min BUN/Creatinine Ratio 14.8 (6-22) Glucose 104 H (70-100) mg/dL Lactate 1.3 (0.7-2.1) mmol/L Calcium 8.8 (8.4-10.2) mg/dL Total Bilirubin 1.1 (0.2-1.3) mg/dL AST 20 (14-36) IU/L ALT 23 (<35) IU/L Alkaline Phosphatase 48 (38-126) U/L Total Protein 7.0 (6.3-8.2) g/dL Albumin 4.2 (3.5-5.0) g/dL Globulin 2.8 (1.7-4.1) g/dL Albumin/Globulin Ratio 1.5 (1.0-2.8) Lipase 200 (23-300) U/L Procalcitonin < 0.03 (<0.5) ng/mL Urine Color Urine Appearance Urine pH (4.5-8.0) Ur Specific [place] (1.000-1.035) Urine Protein (Negative) Urine Glucose (UA) (Negative) g/dL Urine Ketones (NEGATIVE) Urine Occult Blood (Negative) Urine Nitrate (Negative) Urine Bilirubin (NEGATIVE) Urine Urobilinogen (0.2) E.U./dL Ur Leukocyte Esterase (NEGATIVE) Urine RBC (0-5/HPF) Urine WBC (0-5/HPF) Ur Squamous Epith Cells (0-5/HPF) Urine Bacteria (None) Urine Yeast (None) Ur Culture Indicated? Urine Test (Negative) Imaging Data Renal US: Radiologist's Impression: Janet Capellan??41??F??1980 ? Allergy/Adv: benzonatate, gluten, NSAIDS (Non-Steroidal Anti-Inflamma, escitalopram (More??) Close Renal Ultrasound (Signed) Gurvinder Mckeon - 10/28/22 Abdomen/Pelvis CT (Signed) Joe Gonzales - 10/21/22 Pelvis Ultrasound (Signed) Joe Gonzales - 10/21/22 Renal Ultrasound (Signed) Joe Gonzales - 10/21/22 Telemetry Strips 05/29/22 Abdomen/Pelvis CT (Signed) Arnold Page - 05/26/22 Telemetry Strips 05/23/22 Abdomen/Pelvis CT (Signed) Paramjit Marr - 05/22/22 Vascular Ultrasound (Signed) Paramjit Marr - 03/08/22 Lower Extremity MRI (Signed) Navarro Ceballos - 03/08/22 Vascular Ultrasound (Signed) Rasheed Tanner - 03/01/22 Pelvis Ultrasound (Signed) Rasheed Tanner - 11/27/21 Knee X-Ray (Signed) Chase Steele - 11/02/21 Abdomen/Pelvis CT (Signed) Sabas Novakanjelica - 08/16/21 Launch?Image [address] [address] Ultrasound Report Signed Patient: Janet Capellan MR#: [id number] : 1980 Acct:[id number] Age/Sex: 41 / F Date of Service: 10/28/22 Loc: ED Accession Number: [id number] ?? Procedure: US renal complete Ordering Provider: Horace Kan D.O. PROCEDURE:? US RENAL COMPLETE ? INDICATIONS:? KIDNEY STONES ? TECHNIQUE:? Real-time scanning was performed of the kidneys and bladder, with image do cumentation.? ? COMPARISON:? [facility], CT, CT KIDNEY URETER BLADDER (KUB), 10/21/2022, 16:22.? [facility], US, US RENAL COMPLETE, 10/21/2022, 15:06. ? FINDINGS:? Kidneys:? Kidneys are normal in size.? Right kidney measures 9.9 cm long; left kidney measures 10.9 cm long.? Right renal cortical thickness is 0.9 cm; left renal cortical thickness is 1.3 cm.? Renal cortical echotexture is normal.? No hydronephrosis.? There are a few small echogenic foci noted in the renal pelvis largest measuring 0.6 cm on the right.? Similar findings on the left with the largest measuring 0.7 cm within the left renal pelvis.? No suspicious solid mass lesions.? ? Bladder:? Pre-void bladder volume is 58.3 mL.? Post-void residual is 4.1 mL.? Pre-void images demonstrate no intraluminal masses or stones.? On pre-void images, left ureteral jet is noted with color Doppler interrogation.? (Of note, ureteral jets may not be detectable in up to 25% of cases due to insufficient differences in specific gravity between ureteral and bladder urine).? ? Miscellaneous:? No free pelvic fluid.? ? IMPRESSION:? ? 1. Small bilateral echogenic foci within the bilateral renal pelvis largest measuring 0.6 cm on the right and 0.7 cm on the left.? These may represent nonobstructing stones.? No evidence for hydronephrosis. ? 2. Unremarkable sonographic appearance of the urinary bladder.? ? ? Dictated by: Gurvinder Mckeon M.D. on 10/28/2022 at 19:08 ? ? Approved by: Gurvinder Mckeon M.D. on 10/28/2022 at 19:12 ? MDM Narrative Medical decision making narrative: CC: 41-year-old female with left flank pain, recent visit for pyelonephritis Complicating co-morbidities: Pyelonephritis, kidney stones Data collected from: Patient Medical records reviewed: Multiple visits in our EMR consulted Differential considered, but not limited to: Pyelonephritis, kidney stone versus other Exam documented above, pertinent findings include: Obviously uncomfortable, left CVA tenderness Lab Test results independently reviewed as above. Pertinent findings: Urine consistent with infection, no evidence of sepsis, slight increase in white blood cells. Blood cultures obtained Independently reviewed EKG as above Imaging studies independently reviewed: Small nonobstructing left renal stones, no hydro Treatments: Toradol and Dilaudid Re-evaluations: Improve symptoms. Pain controlled, patient tolerating orals Discussion: 41-year-old female with recent visit for flank and groin pain discharged with diagnosis of urine infection, placed on Keflex. The following day she had 1 of 2 blood cultures positive, thought to be likely contaminant but encouraged to return for worsening symptoms. She did well over the weekend but then developed left flank pain with nausea. Patient called ahead and I encouraged her to come in for a repeat evaluation. She shows no signs of sepsis, evidence of urine infection despite her continuing to take Keflex. Her culture was reviewed and demonstrates an expected susceptibility to Keflex, we did discuss the possibility of continuing Keflex versus switching to a quinolone. Ultrasound reassuring and has small nonobstructing stones but no evidence of hydro. Pain controlled over duration of visit, no evidence of renal failure, patient tolerating orals, patient given contact information for Urology, of prescription sent to her pharmacy of choice and return precautions discussed Disposition: see below, along with detailed discharge instructions that have been reviewed with patient as well as indications for ED re-evaluation and additional outpatient follow up Discharge Plan Departure Patient Disposition: Home Clinical Impression: UTI (urinary tract infection), Kidney calculi Instructions: DI for Kidney Stones Activity Restrictions/Additional Instructions: *You have been diagnosed with [ongoing urine infection and left-sided kidney stone in the absence of signs of sepsis or kidney failure.] *What to do: *Please continue to take your regular medications as directed. [ x] New medication prescriptions sent to your pharmacy: [[facility] ] [ ] New medication written as a paper prescription [ ] No new medications given *Please follow up with your primary care provider in 2-3 days, call for an appointment. Let them know you were seen in the Emergency Department and that we ask that you be seen in follow up. We will electronically transmit a record of today's note if your PCP is in our system *If you do not have a primary care provider please contact the [facility] Resource line at [phone]. They will ask some questions about your medical history and help get you set up with a doctor in the community. *Return to Emergency Department if you should have any new, worsening or concerning symptoms, such as [fever greater than 101 F, shaking chills, worsening pain, persistent vomiting or other bothersome symptoms] You have been prescribed a short course of narcotic medications. These are potentially dangerous and addictive medications that should be used carefully. While on these medications you cannot drive or operate heavy machinery. Additionally, you cannot sign legal documents or perform any duties such as this. Many people get constipated on narcotic medications so it would be advisable to discuss stool softeners with the pharmacist when you tile picker your prescription. Please understand that we cannot provide further refills of narcotics or controlled substances through the ED and your pain management will need to be through your Primary Care Provider Prescriptions: New hydrocodone-acetaminophen 5-325 mg tablet 1 tab PO Q4-6H PRN (Reason: pain) Qty: 20 0RF ondansetron 4 mg tablet,disintegrating 4 mg PO TID-QID PRN (Reason: nausea and vomiting) Qty: 10 0RF ciprofloxacin HCl [Cipro] 500 mg tablet 500 mg PO BID Qty: 20 0RF No Action phentermine 37.5 mg tablet 37.5 mg PO DAILY Label Comments: 1/2 tablet by mouth every morning BEFORE BREAKFAST cephalexin 500 mg capsule 500 mg PO DAILY ursodiol 250 mg tablet 250 mg PO DAILY hydrochlorothiazide 12.5 mg tablet 12.5 mg PO DAILY alprazolam 0.5 mg tablet 0.5 mg PO PRN PRN (Reason: Anxiety) Label Comments: take 1 tablet by mouth twice a day if needed Rx Instructions: needs to refill, but takes it. pantoprazole [Protonix] 40 mg tablet,delayed release (DR/EC) 40 mg PO BID Qty: 60 0RF Label Comments: unable to get from pharmacy. pt called multiple times. Referrals: Sheryl Timmons MD [Primary Care Provider] - Stand Alone Forms: Patient Portal/API
--- NOTE | 2022-10-28 17:00 | DI.US.S_ITS ---
PROCEDURE: US RENAL COMPLETE INDICATIONS: KIDNEY STONES TECHNIQUE: Real-time scanning was performed of the kidneys and bladder, with image documentation. COMPARISON: [facility], CT, CT KIDNEY URETER BLADDER (KUB), 10/21/2022, 16:22. [facility], US, US RENAL COMPLETE, 10/21/2022, 15:06. FINDINGS: Kidneys: Kidneys are normal in size. Right kidney measures 9.9 cm long; left kidney measures 10.9 cm long. Right renal cortical thickness is 0.9 cm; left renal cortical thickness is 1.3 cm. Renal cortical echotexture is normal. No hydronephrosis. There are a few small echogenic foci noted in the renal pelvis largest measuring 0.6 cm on the right. Similar findings on the left with the largest measuring 0.7 cm within the left renal pelvis. No suspicious solid mass lesions. Bladder: Pre-void bladder volume is 58.3 mL. Post-void residual is 4.1 mL. Pre-void images demonstrate no intraluminal masses or stones. On pre-void images, left ureteral jet is noted with color Doppler interrogation. (Of note, ureteral jets may not be detectable in up to 25% of cases due to insufficient differences in specific gravity between ureteral and bladder urine). Miscellaneous: No free pelvic fluid. IMPRESSION: 1. Small bilateral echogenic foci within the bilateral renal pelvis largest measuring 0.6 cm on the right and 0.7 cm on the left. These may represent nonobstructing stones. No evidence for hydronephrosis. 2. Unremarkable sonographic appearance of the urinary bladder. Dictated by: Gurvinder Mckeon M.D. on 10/28/2022 at 19:08 Approved by: Gurvinder Mckeon M.D. on 10/28/2022 at 19:12
[2022-10-28] MEDS: HYDROMORPHONE 0.5 MG INJ IV ×2 (17:47→19:20)
[2022-10-28 19:24] VITALS: BP 134/91; PULSE 70; RESP 18; O2SAT 100
== END 2022-10-28 19:33 | disposition home or self-care (01) ==
PROVIDERS: Emergency Provider Emergency Medicine; PCP Internal Medicine
DX: N39.0 Urinary tract infection, site not specified (principal); N20.0 Calculus of kidney
CPT/HCPCS: 36415; 76770; 80053; 81001; 81025; 83605; 83690; 84145; 85025; 87040; 87086; 96374; 96375; 96376; 99284; C9113; J1170; J1885

== ENCOUNTER 2023-03-13 15:36 | Emergency (ER) | payer MEDICARE, OTHER, MEDICAID, SELFPAY ==
[2022-05-26 22:34] VITALS: BMI 32.3
[2023-03-13 15:38] VITALS: PULSE 93; O2SAT 97
[2023-03-13 15:41] VITALS: BP 156/88; PULSE 89; RESP 18; TEMP 36.9; O2SAT 98; BMI 33.0
--- NOTE | 2023-03-13 15:43 | ED.GENADULT ---
HPI - General Adult General Chief complaint: Abdominal Pain Stated complaint: ABD pain Time Seen by Provider: 03/13/23 15:40 History of Present Illness HPI narrative: 42-year-old female nonsmoker with a history of hypertension and biliary pathology being worked up and managed by Мария presents with a different type of pain, now in her left upper quadrant that has been present for the past 3 days or so. She states it is rather persistent in does not radiate. She has poor appetite and nausea but denies any vomiting or diarrhea. She states eating seems to make it significantly worse. She denies any fever but has had some chills. She denies constipation or diarrhea. Related Data Home Medications Medication Instructions Recorded Confirmed alprazolam 0.5 mg tablet 0.5 mg PO PRN PRN Anxiety 08/13/21 10/28/22 cephalexin 500 mg capsule 500 mg PO DAILY 10/28/22 10/28/22 hydrochlorothiazide 12.5 mg tablet 12.5 mg PO DAILY 10/28/22 10/28/22 phentermine 37.5 mg tablet 37.5 mg PO DAILY 10/28/22 10/28/22 ursodiol 250 mg tablet 250 mg PO DAILY 10/28/22 10/28/22 Previous Rx's Medication Instructions Recorded pantoprazole 40 mg tablet,delayed 40 mg PO BID #60 tabs 05/24/22 release (Protonix) ciprofloxacin HCl 500 mg tablet 500 mg PO BID #20 tabs 10/28/22 (Cipro) hydrocodone 5 mg-acetaminophen 325 1 tab PO Q4-6H PRN pain #20 tabs 10/28/22 mg tablet ondansetron 4 mg disintegrating 4 mg PO TID-QID PRN nausea and 10/28/22 tablet vomiting #10 tabs hydrocodone 5 mg-acetaminophen 325 1 tab PO Q4-6H PRN pain #10 tabs 03/13/23 mg tablet hyoscyamine sulfate 0.125 mg tablet 0.125 mg PO BID-QID PRN dyspepsia 03/13/23 #20 tabs ondansetron 4 mg disintegrating 4 mg PO TID-QID PRN nausea and 03/13/23 tablet vomiting #10 tabs Allergies Allergy/AdvReac Type Severity Reaction Status Date / Time benzonatate Allergy Unknown Verified 03/13/23 15:45 [From Ezekiel Dhaliwal] gluten Allergy Verified 03/13/23 15:45 NSAIDS (Non-Steroidal AdvReac Mild Verified 03/13/23 15:45 Anti-Inflamma escitalopram [From Lexapro] AdvReac Unknown Hallucinati Verified 03/13/23 15:45 ng Review of Systems Review of Systems Narrative: GENERAL: Denies chills, fatigue, malaise, fever, sweats. HEENT: Denies sinus pain, ear pain, sore throat, difficulty swallowing, dizziness. RESPIRATORY: Denies dyspnea, cough, wheezing, hemoptysis, sputum. CARDIOVASCULAR: Denies chest pain, palpitations, orthopnea, edema, GASTROINTESTINAL: See HPI : Denies dysuria, frequency, incontinence, hematuria, urinary retention. MUSCULOSKELETAL: denies weakness, joint pain, or bony pain SKIN: Denies rash, skin lesions, or other NEUROLOGIC: Denies weakness, headache, numbness, change in speech, confusion, seizures, incoordination. PSYCHIATRIC: No concerning psychosocial issues. 12 point review of systems is negative except for those stated above Patient History Medical History Bipolar disorder Celiac disease GERD with apnea Hypertension Polycystic ovary disease Surgical History H/O gastric sleeve H/O oophorectomy History of appendectomy History of cholecystectomy Social History household members: significant other Smoking Status: Never smoker alcohol intake: current Smoking Status: Never smoker alcohol intake frequency: holidays/special occasions only Substance Use Type: marijuana Exam Narrative Exam Narrative: GENERAL: [42] year old patient appears stated age. Well-developed patient, in mild distress. HEAD: Atraumatic. Normocephalic. EYES: Pupils equal round and reactive. Extraocular motions intact. No scleral icterus. No injection or drainage. ENT: Nose without bleeding, purulent drainage. Throat without erythema, tonsillar hypertrophy or exudate. Airway patent. NECK: Trachea midline. Non tender CARDIOVASCULAR: Regular rate and rhythm without murmurs, gallops, or rubs. RESPIRATORY: Clear to auscultation. Breath sounds equal bilaterally. No wheezes, rales, or rhonchi. GASTROINTESTINAL: Abdomen soft, severe left upper quadrant pain, nondistended. EXTREMITIES: No edema or joint tenderness. BACK: Nontender without deformity or crepitance. No flank tenderness. NEURO: AOx3. SKIN: No rash or erythema of visible areas Initial Vital Signs Initial Vital Signs: Vital Signs Pulse Rate 93 H 03/13/23 15:38 Pulse Oximetry 97 03/13/23 15:38 Course Orders Ordered: ED Orders 03/13/23 16:02 Complete Blood Count AUTO DIFF Stat Comprehensive Metabolic Panel Stat Lipase Stat 03/13/23 16:21 CT abdomen pelvis w con Stat Discontinued Medications Hydromorphone HCl (Hydromorphone 0.5 Mg Inj) 0.5 mg IV NOW ONE Stop: 03/13/23 16:21 Last Admin: 03/13/23 16:47 Dose: 0.5 mg Documented By: MPO Sodium Chloride (Normal Saline 0.9%) 1,000 mls @ 1,000 mls/hr IV BOLUS ONE Stop: 03/13/23 17:19 Last Infusion: 03/13/23 17:27 Dose: 0 mls/hr Documented By: Admin: 03/13/23 17:06 Dose: 1,000 mls/hr Documented By: AT Ondansetron HCl (Ondansetron 4 Mg Odt) 4 mg PO NOW PRN PRN Reason: Nausea And Vomiting Ondansetron HCl (Ondansetron 4 Mg/2 Ml Inj) 4 mg IV NOW PRN PRN Reason: Nausea And Vomiting Last Admin: 03/13/23 16:16 Dose: 4 mg Documented By: MPO Vital Signs Vital signs: Vital Signs - 8 hr 03/13/23 15:41 03/13/23 15:38 03/13/23 16:01 Temperature 98.5 F Pulse Rate 89 93 H Respiratory Rate 18 Blood Pressure 156/88 H 136/92 H Pulse Oximetry 98 97 Oxygen Delivery Method Room Air 03/13/23 16:01 03/13/23 16:39 03/13/23 17:00 Temperature Pulse Rate 77 64 66 Respiratory Rate 18 Blood Pressure Pulse Oximetry 96 93 96 Oxygen Delivery Method Room Air 03/13/23 17:06 03/13/23 17:06 Temperature Pulse Rate 61 Respiratory Rate Blood Pressure 133/81 Pulse Oximetry 98 Oxygen Delivery Method Medical Decision Making Lab Data 03/13/23 16:02 07/06/23 16:02 Labs: Lab Results 03/13/23 03/13/23 Range/Units 16:02 16:02 WBC 12.1 H (4.5-11.0) X10^3/uL RBC 4.23 (4.0-5.2) X10^6/uL Hgb 11.9 L (12.0-16.0) g/dL Hct 35.5 L (36-46) % MCV 84.0 (80-100) fL MCH 28.1 (26-34) PG MCHC 33.5 (30-36) % RDW 14.3 (11.6-14.8) % Plt Count 350 (150-400) X10^3/uL Neut % (Auto) 62.9 (50-75) % Lymph % (Auto) 27.8 (25-40) % Caswell % (Auto) 7.7 (3-14) % Eos % (Auto) 1.1 L (2-4) % Baso % (Auto) 0.5 (0-2) % Neut # (Auto) 7600 H (8093-5397) /uL Lymph # (Auto) 3300 (3836-4648) /uL Caswell # (Auto) 900 (0-900) /uL Eos # (Auto) 100 (0-450) /uL Baso # (Auto) 100 (0-100) /uL Sodium 139 (137-145) mmol/L Potassium 3.9 (3.4-5.1) mmol/L Chloride 106 (98-107) mmol/L Carbon Dioxide 26 (22-32) mmol/L BUN 10 (7-17) mg/dL Creatinine 0.50 L (0.52-1.04) mg/dL Estimated GFR > 60 (>60) mL/min BUN/Creatinine Ratio 20.0 (6-22) Glucose 98 (70-100) mg/dL Calcium 9.2 (8.4-10.2) mg/dL Total Bilirubin 0.9 (0.2-1.3) mg/dL AST 23 (14-36) IU/L ALT 25 (<35) IU/L Alkaline Phosphatase 63 (38-126) U/L Total Protein 7.2 (6.3-8.2) g/dL Albumin 4.2 (3.5-5.0) g/dL Globulin 3.0 (1.7-4.1) g/dL Albumin/Globulin Ratio 1.4 (1.0-2.8) Lipase 140 (23-300) U/L MDM Narrative Medical decision making narrative: [42] year old patient presents with upper abdominal pain Multiple etiologies for patient's symptoms considered including, but not limited to: [Gastritis versus bowel obstruction versus other] Prior Charts reviewed in our EMR Primary Historian: patient Labs reviewed and interpreted by myself: Slight leukocytosis of 12.1 which is relatively normal for her. No anemia, no left shift. Electrolytes, renal function, LFTs all within normal Imaging reviewed: CT Abdomen/Pelvis with mild bowel thickening of descending and sigmoid colon suspicious for a nonspecific colitis. Patient's symptoms improved over duration of stay with above-stated therapies. Pain is well controlled, she is tolerating orals. Labs and imaging largely reassuring. We did discuss the potential utility of antibiotics or coverage of a possible infectious source. Given lack of fever or chills. White blood cells are within normal. Patient states that she would prefer symptomatic treatment only given multiple prior doses of antibiotics for frequent UTIs. She is given return precautions and questions answered to her apparent satisfaction Findings and discharge diagnosis discussed with patient/family followed by verbalization of understanding Return precautions discussed with patient/family whom verbalize understanding of diagnosis and plan Discharge Plan Departure Patient Disposition: Home Clinical Impression: Abdominal pain, Colitis Instructions: DI for Abdominal Pain-Adult, DI for Colitis Activity Restrictions/Additional Instructions: *You have been diagnosed with [abdominal pain] * As we discussed your history and physical exam as well as labs and imaging are very reassuring. There is no evidence of any severe diagnoses that would require a specific or immediate intervention. *What to do: *Please continue to take your regular medications as directed. [x ] New medication prescriptions sent to your pharmacy: [[facility] ] *Please follow up with your primary care provider in 2-3 days, call for an appointment. Let them know you were seen in the Emergency Department and that we ask that you be seen in follow up. We will electronically transmit a record of today's note if your PCP is in our system *Please consider a clear liquid diet for the next 24-48 hours and then slowly advance to regular as tolerated. Also, try to avoid alcohol, nicotine, caffeine, spicy, acidic or fatty foods as this may worsen your symptoms *If you do not have a primary care provider please contact the [facility] Resource line at [phone]. They will ask some questions about your medical history and help get you set up with a doctor in the community. *Return to Emergency Department if you should have any new, worsening or concerning symptoms, such as [fever greater than 101 F, shaking chills, worsening pain, persistent vomiting or other bothersome symptoms] Prescriptions: New hydrocodone-acetaminophen 5-325 mg tablet 1 tab PO Q4-6H PRN (Reason: pain) Qty: 10 0RF hyoscyamine sulfate 0.125 mg tablet 0.125 mg PO BID-QID PRN (Reason: dyspepsia) Qty: 20 0RF ondansetron 4 mg tablet,disintegrating 4 mg PO TID-QID PRN (Reason: nausea and vomiting) Qty: 10 0RF No Action phentermine 37.5 mg tablet 37.5 mg PO DAILY Patient Comments: 1/2 tablet by mouth every morning BEFORE BREAKFAST cephalexin 500 mg capsule 500 mg PO DAILY ursodiol 250 mg tablet 250 mg PO DAILY hydrochlorothiazide 12.5 mg tablet 12.5 mg PO DAILY hydrocodone-acetaminophen 5-325 mg tablet 1 tab PO Q4-6H PRN (Reason: pain) Qty: 20 0RF ondansetron 4 mg tablet,disintegrating 4 mg PO TID-QID PRN (Reason: nausea and vomiting) Qty: 10 0RF ciprofloxacin HCl [Cipro] 500 mg tablet 500 mg PO BID Qty: 20 0RF alprazolam 0.5 mg tablet 0.5 mg PO PRN PRN (Reason: Anxiety) Patient Comments: take 1 tablet by mouth twice a day if needed Rx Instructions: needs to refill, but takes it. pantoprazole [Protonix] 40 mg tablet,delayed release (DR/EC) 40 mg PO BID Qty: 60 0RF Patient Comments: unable to get from pharmacy. pt called multiple times. Referrals: Sheryl Timmons MD [Primary Care Provider] - Stand Alone Forms: Patient Portal/API
[2023-03-13 16:01] VITALS: BP 136/92; PULSE 77; O2SAT 96
[2023-03-13 16:15] LABS: Add Manual Diff / Slide Review NO; Basophils Absolute Auto 100 /uL (0-100); Basophils Percent Auto 0.5 % (0-2); Eosinophils Absolute Auto 100 /uL (0-450); Eosinophils Percent Auto 1.1 % (2-4); Hematocrit 35.5 % (36-46); Hemoglobin 11.9 g/dL (12.0-16.0); Lymphocytes Absolute Auto 3300 /uL (1100-4500); Lymphocytes Percent Auto 27.8 % (25-40); Mean Corpuscular HGB Conc 33.5 % (30-36); Mean Corpuscular Hemoglobin 28.1 PG (26-34); Monocytes Absolute Auto 900 /uL (0-900); Monocytes Percent Auto 7.7 % (3-14); Neutrophils Absolute Auto 7600 /uL (1500-7000); Neutrophils Percent Auto 62.9 % (50-75); Platelet Count 350 X10^3/uL (150-400); Red Blood Cell Count 4.23 X10^6/uL (4.0-5.2); Red Cell Distribution Width 14.3 % (11.6-14.8); White Blood Cell Count 12.1 X10^3/uL (4.5-11.0)
[2023-03-13] MEDS: ONDANSETRON 4 MG/2 ML INJ IV (16:16)
--- NOTE | 2023-03-13 16:21 | DI.CT.S_ITS ---
PROCEDURE: CT ABDOMEN PELVIS W CON INDICATIONS: severe L upper abdomen pain TECHNIQUE: After the administration of intravenous contrast, axial sections acquired from the lung bases to the pubic symphysis. Coronal and sagittal reformats were performed. For radiation dose reduction, the following was used: automated exposure control, adjustment of mA and/or kV according to patient size. COMPARISON: [facility], CT, CT ABDOMEN PELVIS W CON, 05/26/2022, 18:20. [facility], CT, CT ABDOMEN PELVIS W CON, 05/22/2022, 21:37. [facility], CT, CT KIDNEY URETER BLADDER (KUB), 10/21/2022, 16:22. FINDINGS: Image quality: Excellent. Lung bases: Unremarkable. Heart: No significant findings. ABDOMEN: Liver: Mild focal fatty infiltration adjacent to the falciform ligament. Gallbladder: Status post cholecystectomy. Biliary ducts: Unremarkable. Pancreas: Unremarkable. Spleen: Peripherally calcified 5 cm cyst again seen in the gallbladder, which does not appear significantly changed in size when compared to the CT from 10/21/2022. Adrenal Glands: Unremarkable. Kidneys and Ureters: Unremarkable. Stomach and Bowel: Areas of oral bowel wall thickening versus underdistention are seen in the sigmoid and descending colon and in the hepatic flexure. Multiple diverticula are seen without definite signs of acute diverticulitis. No signs of small bowel obstruction. Status post appendectomy. Postsurgical changes are seen from prior sleeve gastrectomy. Peritoneum: No abnormal intraperitoneal fluid. No free air. Ventral Wall: Small fat containing periumbilical hernia. Abdominal Nodes: No retroperitoneal or mesenteric adenopathy by size criteria. Vessels: Aorta and inferior vena cava are normal in size. PELVIS: Pelvic Organs: Unremarkable. Bladder: Unremarkable. Pelvic Nodes: No enlarged lymph nodes. Miscellaneous: No hernias are seen. Bones: Unremarkable. IMPRESSION: 1. Mild bowel wall thickening is seen in the descending and sigmoid colon and at the hepatic flexure that is suspicious for a nonspecific colitis. Colonic diverticulosis is noted without focal diverticulitis. 2. Stable splenic cyst. Approved by: Tien Pham M.D. on 03/13/2023 at 16:57
[2023-03-13 16:27] LABS: Alanine Aminotransferase 25 IU/L (<35); Albumin 4.2 g/dL (3.5-5.0); Albumin Globulin Ratio 1.4 (1.0-2.8); Alkaline Phosphatase 63 U/L (38-126); Aspartate Aminotransferase 23 IU/L (14-36); Bilirubin Total 0.9 mg/dL (0.2-1.3); Blood Urea Nitrogen 10 mg/dL (7-17); Calcium 9.2 mg/dL (8.4-10.2); Carbon Dioxide 26 mmol/L (22-32); Chloride 106 mmol/L (98-107); Estimated Glomerular Filt Rate > 60 mL/min (>60); Glucose 98 mg/dL (70-100); HEMOLYSIS 22 (0-50); Lipase 140 U/L (23-300); Potassium 3.9 mmol/L (3.4-5.1); Sodium 139 mmol/L (137-145); Total Protein 7.2 g/dL (6.3-8.2)
[2023-03-13 16:39] VITALS: PULSE 64; O2SAT 93
[2023-03-13] MEDS: HYDROMORPHONE 0.5 MG INJ IV (16:47)
[2023-03-13 17:00] VITALS: PULSE 66; RESP 18; O2SAT 96
[2023-03-13 17:06] VITALS: BP 133/81; PULSE 61; O2SAT 98
[2023-03-13] MEDS: SODIUM CHLORIDE 0.9% 1,000 ML 1000 ML IV (17:06)
== END 2023-03-13 17:30 | disposition home or self-care (01) ==
PROVIDERS: Emergency Provider Emergency Medicine; PCP Internal Medicine
DX: R10.12 Left upper quadrant pain (principal); K52.9 Noninfective gastroenteritis and colitis, unspecified
CPT/HCPCS: 36415; 74177; 80053; 83690; 85025; 96374; 96375; 99284; J1170; J2405

== ENCOUNTER 2023-05-05 18:21 | Inpatient (IN) | payer MEDICARE, OTHER, MEDICAID, SELFPAY ==
[2022-05-26 22:34] VITALS: BMI 32.3
[2023-05-05] VITALS (10 sets, daily range): BP systolic 120–161; BP diastolic 71–87; PULSE 68–94; RESP 14–22; TEMP 36.8; O2SAT 95–100; BMI 34.1
--- NOTE | 2023-05-05 18:34 | DI.CT.S_ITS ---
PROCEDURE: CT KIDNEY URETER BLADDER (KUB) INDICATIONS: right flank pain, hx of stones TECHNIQUE: Axial sections were acquired from the lung bases to the pubic symphysis. Coronal and sagittal reformats were performed. For radiation dose reduction, the following was used: automated exposure control, adjustment of mA and/or kV according to patient size. COMPARISON: [facility], CT, CT KIDNEY URETER BLADDER (KUB), 10/21/2022, 16:22. FINDINGS: Image quality: Excellent. Lung bases: Unremarkable. Heart: No significant findings. URINARY: Right Kidney: No stones or hydronephrosis. Right Ureter: No hydroureter. Left Kidney: No stones or hydronephrosis. Left Ureter: No hydroureter. Bladder: Partially distended urinary bladder shows no gross bladder wall abnormality. No stones. ABDOMEN: Liver: Unremarkable. Gallbladder: Gallbladder is surgically absent. Biliary ducts: Unremarkable. Pancreas: Unremarkable. Spleen: Peripherally calcified splenic cyst is again seen unchanged in size and appearance from prior studies. Adrenal Glands: Unremarkable. Stomach and Bowel: Postsurgical changes are seen in stomach from prior gastric bypass. There is no bowel obstruction. No gastric or small bowel wall thickening. Postsurgical changes in right lower quadrant are seen suggestive of prior appendectomy. No abnormal colonic wall thickening. No abscess collection. Peritoneum: No abnormal intraperitoneal fluid. No free air. Ventral Wall: No hernia. Abdominal Nodes: No enlarged retroperitoneal or mesenteric lymph nodes. Vessels: Aorta and inferior vena cava are normal in size. PELVIS: Pelvic Organs: Patient is status post hysterectomy.. Pelvic Nodes: Unremarkable. Miscellaneous: No inguinal hernias are seen. Bones: No suspicious bony lesions. No acute vertebral body compression fracture. IMPRESSION: 1. No nephrolithiasis. No hydronephrosis or hydroureter. Normal appearing partially distended urinary bladder. 2. No acute inflammatory process is seen in abdomen or pelvis. No significant changes from previous studies. Dictated by: Navarro Ceballos M.D. on 05/05/2023 at 19:13 Approved by: Navarro Ceballos M.D. on 05/05/2023 at 19:21
[2023-05-05] MEDS: ONDANSETRON 4 MG ODT SL (18:41)
[2023-05-05 18:51] LABS: Ictotest Urine Negative (Negative)
[2023-05-05 18:55] LABS: Add Manual Diff / Slide Review NO; Basophils Absolute Auto 100 /uL (0-100); Basophils Percent Auto 0.6 % (0-2); Eosinophils Absolute Auto 300 /uL (0-450); Eosinophils Percent Auto 2.3 % (2-4); Hematocrit 38.7 % (36-46); Lymphocytes Absolute Auto 4400 /uL (1100-4500); Lymphocytes Percent Auto 35.4 % (25-40); Mean Corpuscular HGB Conc 33.6 % (30-36); Mean Corpuscular Hemoglobin 28.1 PG (26-34); Mean Corpuscular Volume 83.6 fL (80-100); Monocytes Absolute Auto 900 /uL (0-900); Monocytes Percent Auto 7.5 % (3-14); Neutrophils Absolute Auto 6700 /uL (1500-7000); Neutrophils Percent Auto 54.2 % (50-75); Platelet Count 335 X10^3/uL (150-400); Red Blood Cell Count 4.62 X10^6/uL (4.0-5.2); Red Cell Distribution Width 14.6 % (11.6-14.8); White Blood Cell Count 12.4 X10^3/uL (4.5-11.0)
[2023-05-05 19:10] LABS: Alanine Aminotransferase 26 IU/L (<35); Albumin 4.6 g/dL (3.5-5.0); Albumin Globulin Ratio 1.4 (1.0-2.8); Alkaline Phosphatase 57 U/L (38-126); Aspartate Aminotransferase 25 IU/L (14-36); BUN Creatinine Ratio 25.5 (6-22); Bilirubin Total 0.6 mg/dL (0.2-1.3); Blood Urea Nitrogen 12 mg/dL (7-17); Calcium 9.4 mg/dL (8.4-10.2); Carbon Dioxide 23 mmol/L (22-32); Chloride 104 mmol/L (98-107); Estimated Glomerular Filt Rate > 60 mL/min (>60); Globulin 3.2 g/dL (1.7-4.1); Glucose 116 mg/dL (70-100); HEMOLYSIS < 15 (0-50); Sodium 138 mmol/L (137-145); Total Protein 7.8 g/dL (6.3-8.2)
--- NOTE | 2023-05-05 21:03 | PC.NURSE ---
Patient states since triage she has noticed her right lower quadrant also being painful to palptation. She has had her appendix and gallbladder removed, hysterectomy. Left ovary removed, right ovary remains.
--- NOTE | 2023-05-05 22:40 | ED_ITS ---
HPI - General Adult General Chief complaint: Urogenital-Female Stated complaint: Rt side kidney Time Seen by Provider: 05/05/23 22:40 Source: patient Mode of arrival: Ambulatory History of Present Illness HPI narrative: 42-year-old woman with recurrent episodes of abdominal pain with multiple etiologies presents with right lower quadrant pain that has been getting worse over the past 48 hours associated with some nausea but no actual vomiting and episodes of diaphoresis without fever. She has been having regular bowel movements. She is post hysterectomy, left oophorectomy, appendectomy, cholecystectomy. She reports no chest pain, palpitations, wheezing, cough Related Data Home Medications Medication Instructions Recorded Confirmed alprazolam 0.5 mg tablet 0.5 mg PO PRN PRN Anxiety 08/13/21 10/28/22 cephalexin 500 mg capsule 500 mg PO DAILY 10/28/22 10/28/22 hydrochlorothiazide 12.5 mg tablet 12.5 mg PO DAILY 10/28/22 10/28/22 phentermine 37.5 mg tablet 37.5 mg PO DAILY 10/28/22 10/28/22 ursodiol 250 mg tablet 250 mg PO DAILY 10/28/22 10/28/22 Previous Rx's Medication Instructions Recorded pantoprazole 40 mg tablet,delayed 40 mg PO BID #60 tabs 05/24/22 release (Protonix) ciprofloxacin HCl 500 mg tablet 500 mg PO BID #20 tabs 10/28/22 (Cipro) hydrocodone 5 mg-acetaminophen 325 1 tab PO Q4-6H PRN pain #20 tabs 10/28/22 mg tablet ondansetron 4 mg disintegrating 4 mg PO TID-QID PRN nausea and 10/28/22 tablet vomiting #10 tabs hydrocodone 5 mg-acetaminophen 325 1 tab PO Q4-6H PRN pain #10 tabs 03/13/23 mg tablet hyoscyamine sulfate 0.125 mg tablet 0.125 mg PO BID-QID PRN dyspepsia 03/13/23 #20 tabs ondansetron 4 mg disintegrating 4 mg PO TID-QID PRN nausea and 03/13/23 tablet vomiting #10 tabs Allergies Allergy/AdvReac Type Severity Reaction Status Date / Time benzonatate Allergy Unknown Hives Verified 05/05/23 18:25 [From Ezekiel Dhaliwal] gluten Allergy Verified 05/05/23 18:25 NSAIDS (Non-Steroidal AdvReac Mild Gastrointestinal Verified 05/05/23 18:25 Anti-Inflamma Upset escitalopram [From Lexapro] AdvReac Unknown Hallucinati Verified 05/05/23 18:25 ng Review of Systems Review of Systems Narrative: Pertinent positive and negative findings as per HPI Patient History Medical History Bipolar disorder Celiac disease GERD with apnea Hypertension Polycystic ovary disease Surgical History H/O gastric sleeve H/O oophorectomy History of appendectomy History of cholecystectomy Social History household members: significant other Smoking Status: Never smoker alcohol intake: current Smoking Status: Never smoker alcohol intake frequency: holidays/special occasions only Substance Use Type: marijuana Exam Initial Vital Signs Initial Vital Signs: Vital Signs Temperature 98.3 F 05/05/23 18:26 Pulse Rate 94 H 05/05/23 18:26 Respiratory Rate 18 05/05/23 18:26 Blood Pressure 149/85 H 05/05/23 18:26 Pulse Oximetry 100 05/05/23 18:26 Oxygen Delivery Method Room Air 05/05/23 18:26 General: Healthy appearing, in moderate distress. Able to give a complete and coherent history. Well-nourished well-developed HEENT: Moist mucous membranes, normal sclera with reactive pupils, Respiratory: Lungs are clear to auscultation, no wheezing no rales no rhonchi. Full and symmetrical air movement Cardiac: Regular rate and rhythm no murmurs no bruits Abdomen: Soft, right lower quadrant tenderness without rebound or guarding good bowel tones, no flank pain. No inguinal hernias appreciated Skin: Warm and dry, no rashes -specifically nothing to suggest zoster in the area of concern Neurologic: Grossly neurologically intact with no obvious asymmetries or abnormalities Extremities: No trauma, well perfused Psych: Cooperative, appropriate insight and affect Course Orders Ordered: ED Orders 05/05/23 18:34 CT kidney ureter bladder (KUB) Stat 05/05/23 18:37 Ictotest Urine Stat 05/05/23 18:41 Complete Blood Count AUTO DIFF Stat Comprehensive Metabolic Panel Stat 05/05/23 22:58 US pelvic complete Stat Hydromorphone HCl (Hydromorphone 0.5 Mg Inj) 0.5 mg IV Q15MIN PRN PRN Reason: Pain, Last Admin: 05/05/23 23:22 Dose: 0.5 mg Ondansetron HCl (Ondansetron 4 Mg Odt) 4 mg SL NOW PRN PRN Reason: Nausea And Vomiting Last Admin: 05/05/23 18:41 Dose: 4 mg Documented By: RL Ondansetron HCl (Ondansetron 4 Mg/2 Ml Inj) 4 mg IV NOW PRN PRN Reason: Nausea And Vomiting Discontinued Medications Ketorolac Tromethamine (Ketorolac 30 Mg/Ml Vial) 15 mg IV NOW ONE Stop: 05/05/23 21:57 Last Admin: 05/05/23 21:58 Dose: Not Given Documented By: Ketorolac Tromethamine (Ketorolac 30 Mg/Ml Vial) 15 mg IV NOW ONE Stop: 05/05/23 22:51 Last Admin: 05/05/23 22:59 Dose: 15 mg Vital Signs Vital signs: Vital Signs - 8 hr 05/05/23 18:26 05/05/23 20:39 05/05/23 20:41 Temperature 98.3 F Pulse Rate 94 H 73 68 Respiratory Rate 18 14 Blood Pressure 149/85 H Pulse Oximetry 100 97 99 Oxygen Delivery Method Room Air 05/05/23 20:41 05/05/23 21:00 05/05/23 21:01 Temperature Pulse Rate 72 Respiratory Rate 16 Blood Pressure 161/87 H 137/83 Pulse Oximetry 99 Oxygen Delivery Method 05/05/23 21:01 05/05/23 21:30 05/05/23 22:00 Temperature Pulse Rate 72 92 H 93 H Respiratory Rate 22 15 Blood Pressure Pulse Oximetry 100 98 98 Oxygen Delivery Method 05/05/23 22:30 05/05/23 23:00 05/05/23 23:00 Temperature Pulse Rate 90 72 Respiratory Rate 21 21 Blood Pressure 120/71 Pulse Oximetry 98 98 Oxygen Delivery Method 05/05/23 23:30 Temperature Pulse Rate 76 Respiratory Rate 16 Blood Pressure Pulse Oximetry 95 Oxygen Delivery Method Medical Decision Making Lab Data 05/05/23 18:41 05/05/23 18:41 Labs: Lab Results 05/05/23 05/05/2305/05/23 Range/Units 18:37 18:41 18:41 WBC 12.4 H (4.5-11.0) X10^3/uL RBC 4.62 (4.0-5.2) X10^6/uL Hgb 13.0 (12.0-16.0) g/dL Hct 38.7 (36-46) % MCV 83.6 (80-100) fL MCH 28.1 (26-34) PG MCHC 33.6 (30-36) % RDW 14.6 (11.6-14.8) % Plt Count 335 (150-400) X10^3/uL Neut % (Auto) 54.2 (50-75) % Lymph % (Auto) 35.4 (25-40) % [place] % (Auto) 7.5 (3-14) % Eos % (Auto) 2.3 (2-4) % Baso % (Auto) 0.6 (0-2) % Neut # (Auto) 6700 (3340-5317) /uL Lymph # (Auto) 4400 (3729-5948) /uL [place] # (Auto) 900 (0-900) /uL Eos # (Auto) 300 (0-450) /uL Baso # (Auto) 100 (0-100) /uL Sodium 138 (137-145) mmol/L Potassium 4.0 (3.4-5.1) mmol/L Chloride 104 (98-107) mmol/L Carbon Dioxide 23 (22-32) mmol/L BUN 12 (7-17) mg/dL Creatinine 0.47 L (0.52-1.04) mg/dL Estimated GFR > 60 (>60) mL/min BUN/Creatinine Ratio 25.5 H (6-22) Glucose 116 H (70-100) mg/dL Calcium 9.4 (8.4-10.2) mg/dL Total Bilirubin 0.6 (0.2-1.3) mg/dL AST 25 (14-36) IU/L ALT 26 (<35) IU/L Alkaline Phosphatase 57 (38-126) U/L Total Protein 7.8 (6.3-8.2) g/dL Albumin 4.6 (3.5-5.0) g/dL Globulin 3.2 (1.7-4.1) g/dL Albumin/Globulin Ratio 1.4 (1.0-2.8) Ur Bilirubin Confirm Negative (Negative) Urine Dip Bedside Urine Glucose Negative Bedside Urine Bilirubin + 1 Bedside Urine Ketone - Negative Urine Specific [place] 1.03 Bedside Urine Occult Blood - Negative Bedside Urine pH 6.0 Bedside Urine Protein - Negative Bedside Urine Urobilinogen - Negative Bedside Urine Nitrite - Negative Bedside Urine Leukocytes - Negative Esterase Point of care testing: Urine Dip Bedside Urine Glucose Negative Bedside Urine Bilirubin + 1 Bedside Urine Ketone - Negative Urine Specific [place] 1.03 Bedside Urine Occult Blood - Negative Bedside Urine pH 6.0 Bedside Urine Protein - Negative Bedside Urine Urobilinogen - Negative Bedside Urine Nitrite - Negative Bedside Urine Leukocytes - Negative Esterase MDM Narrative Medical decision making narrative: CC: Right lower quadrant pain is an acute issue uncertain prognosis Complicating co-morbidities: Anxiety, prior episodes of abdominal pain multiple CT scans and ultrasounds multiple abdominal surgeries Data collected from: patient, Medical records reviewed: Discharge summary with colitis from May of 2022 is reviewed, ER notes from March of 2023 with abdominal pain and reviewed. Prior imaging studies done [facility] reviewed Differential considered: Ovarian torsion, constipation, bowel obstruction. She does not have an appendix, there is no evidence of inguinal hernia, pyelonephritis or kidney stone are within the differential, she is post vaginal hysterectomy so pelvic inflammatory disease is less likely. Exam documented above, pertinent findings include: Significant right lower quadrant pain and tenderness with episodes of intermittent diaphoresis. No obvious abnormalities on physical exam no vaginal discharge, flank pain, dysuria no rebound or guarding. Lab Test results independently reviewed as above. Pertinent findings: CBC is slightly elevated at 12.4 without left shift remainder of CBC is unremarkable Chemistries are within normal limits Imaging studies independently reviewed: CT scan of the abdomen and pelvis does not show any significant pathology to explain her pain Ultrasound is ordered see if ovarian torsion might be identified, the studies nondiagnostic in the ovary was not identified. 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 Discussion: 42-year-old woman with right lower quadrant pain increasing over the last 48 hours now with waves of severe pain that leave her pale and diaphoretic. She is having difficulty standing up straight. CT scan does not suggest significant abnormalities, she has already had her appendix and her gallbladder out there is no hydronephrosis, kidney stones, pyelonephritis, infection, any type of bowel wall abnormality no right-sided diverticulitis. There are no skin findings to suggest shingles she does not have palpable low back pain to suggest that this is simply musculoskeletal. Given the severity of her pain with the episodes of the diaphoresis and changed overall skin color I am concerned that there is more going on. Care is reviewed with Dr. Haynes, OBGYN surgeon. Given the nondiagnostic CT scan and ultrasound will admit the patient for observation status overnight. We will continue with IV fluids pain medications as needed repeat blood work in the morning and have Dr. Haynes further evaluate her. If she is still hurting this much in the morning she may need a diagnostic laparoscopy. Findings reviewed with patient, she agrees with the plan, transition orders were written and patient will be transferred to the floor. Discharge Plan Departure Patient Disposition: Admitted as Observation Clinical Impression: Abdominal pain, RLQ Prescriptions: No Action phentermine 37.5 mg tablet 37.5 mg PO DAILY Patient Comments: 1/2 tablet by mouth every morning BEFORE BREAKFAST cephalexin 500 mg capsule 500 mg PO DAILY ursodiol 250 mg tablet 250 mg PO DAILY hydrochlorothiazide 12.5 mg tablet 12.5 mg PO DAILY hydrocodone-acetaminophen 5-325 mg tablet 1 tab PO Q4-6H PRN (Reason: pain) Qty: 20 0RF ondansetron 4 mg tablet,disintegrating 4 mg PO TID-QID PRN (Reason: nausea and vomiting) Qty: 10 0RF ciprofloxacin HCl [Cipro] 500 mg tablet 500 mg PO BID Qty: 20 0RF hydrocodone-acetaminophen 5-325 mg tablet 1 tab PO Q4-6H PRN (Reason: pain) Qty: 10 0RF hyoscyamine sulfate 0.125 mg tablet 0.125 mg PO BID-QID PRN (Reason: dyspepsia) Qty: 20 0RF ondansetron 4 mg tablet,disintegrating 4 mg PO TID-QID PRN (Reason: nausea and vomiting) Qty: 10 0RF alprazolam 0.5 mg tablet 0.5 mg PO PRN PRN (Reason: Anxiety) Patient Comments: take 1 tablet by mouth twice a day if needed Rx Instructions: needs to refill, but takes it. pantoprazole [Protonix] 40 mg tablet,delayed release (DR/EC) 40 mg PO BID Qty: 60 0RF Patient Comments: unable to get from pharmacy. pt called multiple times. Referrals: Sheryl Timmons MD [Primary Care Provider] - Admit Date/Time: 05/06/23 00:13 Admit Provider: Jennifer Haynes
--- NOTE | 2023-05-05 22:58 | DI.US.S_ITS ---
PROCEDURE: US PELVIC COMPLETE INDICATIONS: RLQ PAIN. HYSTERECTOMY, LEFT OOPHORECTOMY, AND APPENDECTOMY. TECHNIQUE: Real-time scanning was performed of the pelvic organs, with image documentation. Additional endovaginal scanning was necessary due to incomplete visualization of the adnexal and endometrial structures by transabdominal scanning. COMPARISON: None. FINDINGS: Uterus: Absent. Ovaries: Right ovary is not visualized. Left ovary is absent. Other: No pathologic free abdominal or pelvic fluid. IMPRESSION: Right ovary not visualized due to the presence of bowel gas. We strive to produce accurate, complete, and clear reports of imaging services. To assist us in improving patient care, this report was composed using standard report templates and voice recognition software. Therefore, it may contain abnormal punctuation, insertions and/or omissions. Occasional wrong-word or sound-alike substitutions may occur. Though we review the report and make efforts to correct it, we do recommend that the report be read carefully in proper context to recognize any text inaccuracies. Dictated by: Pavan Farfan M.D. on 05/06/2023 at 0:32 Approved by: Pavan Farfan M.D. on 05/06/2023 at 0:33
[2023-05-05] MEDS: KETOROLAC 30 MG/ML VIAL 15 MG IV (22:59)
[2023-05-05] MEDS: HYDROMORPHONE 0.5 MG INJ IV (23:22)
[2023-05-06] VITALS (9 sets, daily range): BP systolic 120–163; BP diastolic 75–93; PULSE 67–81; RESP 14–19; TEMP 36.2–37; O2SAT 94–98; BMI 35.2
[2023-05-06] MEDS: HYDROMORPHONE 0.5 MG INJ IV ×13 (00:09→22:07)
[2023-05-06] MEDS: SODIUM CHLORIDE 0.9% 1,000 ML 125 ML IV ×3 (00:35→14:36)
[2023-05-06] MEDS: ONDANSETRON 4 MG/2 ML INJ IV ×2 (01:43→06:04)
[2023-05-06 05:40] LABS: Add Manual Diff / Slide Review NO; Basophils Absolute Auto 0 /uL (0-100); Basophils Percent Auto 0.3 % (0-2); Eosinophils Absolute Auto 300 /uL (0-450); Eosinophils Percent Auto 3.1 % (2-4); Hemoglobin 12.1 g/dL (12.0-16.0); Lymphocytes Absolute Auto 4200 /uL (1100-4500); Lymphocytes Percent Auto 38.9 % (25-40); Mean Corpuscular HGB Conc 33.7 % (30-36); Mean Corpuscular Hemoglobin 28.1 PG (26-34); Mean Corpuscular Volume 83.2 fL (80-100); Monocytes Absolute Auto 1100 /uL (0-900); Monocytes Percent Auto 10.4 % (3-14); Neutrophils Absolute Auto 5100 /uL (1500-7000); Neutrophils Percent Auto 47.3 % (50-75); Platelet Count 303 X10^3/uL (150-400); Red Blood Cell Count 4.33 X10^6/uL (4.0-5.2); Red Cell Distribution Width 14.3 % (11.6-14.8); White Blood Cell Count 10.7 X10^3/uL (4.5-11.0)
[2023-05-06 05:52] LABS: Alanine Aminotransferase 25 IU/L (<35); Albumin Globulin Ratio 1.3 (1.0-2.8); Alkaline Phosphatase 51 U/L (38-126); Aspartate Aminotransferase 25 IU/L (14-36); BUN Creatinine Ratio 28.1 (6-22); Bilirubin Total 0.9 mg/dL (0.2-1.3); Blood Urea Nitrogen 16 mg/dL (7-17); Carbon Dioxide 27 mmol/L (22-32); Chloride 104 mmol/L (98-107); Estimated Glomerular Filt Rate > 60 mL/min (>60); Glucose 88 mg/dL (70-100); HEMOLYSIS < 15 (0-50); Potassium 3.9 mmol/L (3.4-5.1); Sodium 138 mmol/L (137-145)
--- NOTE | 2023-05-06 06:29 | PC.ADMIT ---
[email or web address] Janette Avcinda Admission Note: Patient admitted to AC unit from ED at 00:45. Alert and oriented x 4, able to make needs known. Oriented to room and educated on use of call light. NS running at 125ml/ hr. Bed low and locked, call light within reach. The patient,Janet Capellan,42 y/o, was given written information regarding hospital policies, unit procedures and contact persons. Patient's smoking status: Never smoker. Vital Signs - 8 hr 05/05/23 22:30 05/05/23 23:00 05/05/23 23:00 Temperature Pulse Rate 90 72 Respiratory Rate 21 21 Blood Pressure 120/71 Pulse Oximetry 98 98 05/05/23 23:30 05/06/23 00:23 05/06/23 00:26 Temperature Pulse Rate 76 81 Respiratory Rate 16 Blood Pressure 137/78 Pulse Oximetry 95 98 05/06/23 00:26 05/06/23 00:30 05/06/23 00:30 Temperature Pulse Rate 69 74 Respiratory Rate 14 14 Blood Pressure 132/76 Pulse Oximetry 97 94 05/06/23 00:45 05/06/23 05:00 Temperature 97.2 F L 97.3 F L Pulse Rate 73 68 Respiratory Rate 16 19 Blood Pressure 140/90 126/81 Pulse Oximetry 97 98
--- NOTE | 2023-05-06 08:29 | DI.US.S_ITS ---
PROCEDURE: US PELVIC COMPLETE INDICATIONS: PAIN TECHNIQUE: Real-time scanning was performed of the pelvic organs, with image documentation. Additional endovaginal scanning was necessary due to incomplete visualization of the adnexal and endometrial structures by transabdominal scanning. COMPARISON: [facility], CT, CT KIDNEY URETER BLADDER (KUB), 05/05/2023, 18:44. [facility], US, US PELVIC COMPLETE, 05/05/2023, 23:36. FINDINGS: Uterus: Status post hysterectomy. Ovaries: The right ovary measures 2.6 x 2.2 x 2.0 cm, with a calculated ovarian volume of 6.1 cc. Status post left oophorectomy. No adnexal masses are seen. Other: No pathologic free abdominal or pelvic fluid. IMPRESSION: Normal sonographic appearance of the right ovary. Status post hysterectomy and left oophorectomy. Approved by: Tien Pham M.D. on 05/06/2023 at 10:05
[2023-05-06] MEDS: METOCLOPRAMIDE 10 MG/2 ML INJ IV ×2 (08:50→21:05)
--- NOTE | 2023-05-06 14:20 | CM.DANOTE ---
DCP Assessment Note: Patient is a 42yo f here following right lower abdominal pain under the care of Dr. Bui. PCP Richar Beasley Payer Medicare and [facility] reviewed EMR. Patient has a PMH of hysterectomy, left oophorectomy, appendectomy, cholecystectomy. Per nursing staff, patient likely has no needs and has been up and moving. poly packer and heat sealer entered room and introduced self and role. Patient was up and walking and appeared A/Ox4. Patient lives at home with spouse Bobo ([phone]) and her two teen daughters. Daughter Vinicius ([phone]) is another emergency contact. Patient is active/indep/drives at baseline. 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 Patient reports no needs from CM team at this time. Likely transport either with spouse or daughter. Patient was unsure on her d/c timeline but reports wanting to go home. Plan: patient will likely d/c home when medically stable, transport with family in POV. No needs at this time. CM team will continue to follow as needed. GIO Mercer Discharge Planning/Care Management CM Discharge Assessment Start: 05/06/23 12:21 Freq: Status: Active Protocol: Document 05/06/23 14:19 (Rec: 05/06/23 14:19 [email or web address]) Discharge Planning Assessment Assigned Crane Helper GIO Maddox DPOA/Assigned Designee Name Bobo Escobar (spouse) Contact Information [phone] Advance Directives? No History Provided By Patient,Medical Record Prior Living Arrangements House Household Members significant other,children Type of transporation used prior to Drives own vehicle admit Independent with ADL's Yes Is patient alert and oriented? Yes Comment Home w/ S.O. expected Discharge Plan Home Transportation Arrangement S.O. Referrals Initiated None needed Whiteboard Updated in Patient Room with Yes name and ext. # of Crane Helper Review Status In Process Next Review Type Continued Stay Review
[2023-05-06] MEDS: KETOROLAC 30 MG/ML VIAL IV ×2 (15:56→22:12)
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
[2023-05-06 19:46] LABS: Lactate (Lactic Acid) 2.9 mmol/L (0.7-2.1)
[2023-05-06 21:09] LABS: Reflexed Lactate in 2 Hours Y
[2023-05-06 21:51] LABS: Lactate 2HR (Lactic Acid Rflx) 1.2 mmol/L (0.7-2.1)
[2023-05-07] VITALS (15 sets, daily range): BP systolic 112–143; BP diastolic 61–82; PULSE 62–96; RESP 10–22; TEMP 36.1–36.8; O2SAT 88–99; BMI 35.2
[2023-05-07] MEDS: HYDROMORPHONE 0.5 MG INJ IV ×8 (00:08→22:07)
[2023-05-07] MEDS: SODIUM CHLORIDE 0.9% 1,000 ML 125 ML IV (00:09)
[2023-05-07] MEDS: KETOROLAC 30 MG/ML VIAL IV (03:59)
[2023-05-07] MEDS: ONDANSETRON 4 MG/2 ML INJ IV (04:05)
[2023-05-07 05:57] LABS: Add Manual Diff / Slide Review NO; Basophils Absolute Auto 0 /uL (0-100); Basophils Percent Auto 0.4 % (0-2); Eosinophils Absolute Auto 200 /uL (0-450); Eosinophils Percent Auto 2.5 % (2-4); Hematocrit 32.4 % (36-46); Hemoglobin 10.9 g/dL (12.0-16.0); Lymphocytes Absolute Auto 3200 /uL (1100-4500); Lymphocytes Percent Auto 41.2 % (25-40); Mean Corpuscular HGB Conc 33.7 % (30-36); Mean Corpuscular Hemoglobin 28.3 PG (26-34); Mean Corpuscular Volume 83.9 fL (80-100); Monocytes Absolute Auto 800 /uL (0-900); Monocytes Percent Auto 9.8 % (3-14); Neutrophils Absolute Auto 3600 /uL (1500-7000); Neutrophils Percent Auto 46.1 % (50-75); Platelet Count 270 X10^3/uL (150-400); Red Blood Cell Count 3.86 X10^6/uL (4.0-5.2); Red Cell Distribution Width 14.5 % (11.6-14.8); White Blood Cell Count 7.9 X10^3/uL (4.5-11.0)
[2023-05-07 06:05] LABS: BUN Creatinine Ratio 28.6 (6-22); Blood Urea Nitrogen 12 mg/dL (7-17); Calcium 8.4 mg/dL (8.4-10.2); Carbon Dioxide 24 mmol/L (22-32); Chloride 108 mmol/L (98-107); Estimated Glomerular Filt Rate > 60 mL/min (>60); Glucose 88 mg/dL (70-100); HEMOLYSIS < 15 (0-50); Potassium 4.1 mmol/L (3.4-5.1); Sodium 138 mmol/L (137-145)
--- NOTE | 2023-05-07 06:58 | PM.CN ---
History of Present Illness Consult details Date Patient Seen: 05/06/23 Time Patient Seen: 07:45 Chief complaint: Rt side kidney Narrative: Patient is a 42-year-old 2 para 2 who presented to the emergency department last night with right lower quadrant pain. Patient reports that this started over the weekend but progressively got worse. She is status post an open hysterectomy, laparoscopic left salpingo-oophorectomy, ligation of the right tube, laparoscopic appendectomy, open cholecystectomy, and laparoscopic gastric sleeve. She has also had an abdominoplasty. She says that there were conflicting reports about adhesions from different surgeons. She has not felt this pain before. She was seen in the emergency department in March for some left upper quadrant pain and was found to have a nonspecific colitis. She has been nauseous. She has no appetite. No fever or chills. No change in bowel or bladder. Meds Home Medications and Allergies Home Medications Medication Instructions Recorded Confirmed Type phentermine 37.5 mg tablet 37.5 mg PO DAILY 10/28/22 05/06/23 History alprazolam 0.5 mg tablet 0.5 mg PO BID PRN Anxiety 05/06/23 05/06/23 History hydrochlorothiazide 12.5 mg tablet 12.5 mg PO DAILY 05/06/23 05/06/23 History metformin 500 mg tablet,extended 500 mg PO DAILY 05/06/23 05/06/23 History release 24 hr Allergies Allergy/AdvReac Type Severity Reaction Status Date / Time benzonatate Allergy Unknown Hives Verified 05/05/23 18:25 [From Ezekiel Dhaliwal] gluten Allergy Verified 05/05/23 18:25 NSAIDS (Non-Steroidal AdvReac Mild Gastrointestinal Verified 05/05/23 18:25 Anti-Inflamma Upset escitalopram [From Lexapro] AdvReac Unknown Hallucinati Verified 05/05/23 18:25 ng Exam Vital Signs (past 8 hours): - 05/07/23 00:00 05/07/23 05:00 Temperature 98.2 F 97.5 F L Pulse Rate 78 68 Blood Pressure 116/65 116/76 Pulse Oximetry 99 98 Oxygen Delivery Method Room Air Narrative Exam Narrative: Generally: Patient is sitting up on edge of bed, in moderate distress secondary to abdominal pain Lungs: Clear to auscultation bilaterally Cardiovascular: Regular rate and rhythm Abdomen: Soft. Tender to palpation. Guarding and rebound tenderness. She points to an area just to the right of midline low in her abdomen as to where the pain originates but then it radiates out to the right. No hepatosplenomegaly. No masses palpable. Objective Labs 05/07/23 04:57 05/07/23 04:57 Labs: Laboratory Results - last 24 hr 05/06/23 05/06/23 05/07/23 19:05 21:31 04:57 WBC 7.9 RBC 3.86 L Hgb 10.9 L Hct 32.4 L MCV 83.9 MCH 28.3 MCHC 33.7 RDW 14.5 Plt Count 270 Neut % (Auto) 46.1 L Lymph % (Auto) 41.[address] [place] % (Auto) 9.8 Eos % (Auto) 2.5 Baso % (Auto) 0.4 Neut # (Auto) 3600 Lymph # (Auto) 3200 [place] # (Auto) 800 Eos # (Auto) 200 Baso # (Auto) 0 Sodium Potassium Chloride Carbon Dioxide BUN Creatinine Estimated GFR BUN/Creatinine Ratio Glucose Lactate 2.9 H 1.2 Calcium 05/07/23 04:57 WBC RBC Hgb Hct MCV MCH MCHC RDW Plt Count Neut % (Auto) Lymph % (Auto) [place] % (Auto) Eos % (Auto) Baso % (Auto) Neut # (Auto) Lymph # (Auto) [place] # (Auto) Eos # (Auto) Baso # (Auto) Sodium 138 Potassium 4.1 Chloride 108 H Carbon Dioxide 24 BUN 12 Creatinine 0.42 L Estimated GFR > 60 BUN/Creatinine Ratio 28.6 H Glucose 88 Lactate Calcium 8.4 PFSH Medical History (Updated 05/06/23 @ 00:16 by Lissa Conte MD) Bipolar disorder Celiac disease GERD with apnea Hypertension Polycystic ovary disease Surgical History (Updated 05/07/23 @ 07:02 by Jennifer Haynes MD) H/O abdominoplasty H/O gastric sleeve H/O oophorectomy History of appendectomy History of section History of cholecystectomy Status post tubal ligation Social History household members: significant other and children Tobacco & Substance Use Smoking Status: Never smoker alcohol intake: current Assessment & Plan Assessment & Plan narrative: Assessment: 42-year-old 2 para 2 with right lower quadrant pain Patient does not have her appendix, gallbladder, uterus, or left tube and ovary She is status post a right tubal ligation Right ovary was not seen on the CT scan or ultrasound last evening Plan: Repeat ultrasound this morning to attempt to see the right ovary If the right ovary is normal, will consult General surgery Time Spent With Patient Time with patient: 30 to 49 minutes with 50% spent counseling/coordinating care
[2023-05-07] MEDS: LACTATED RINGERS 1,000 ML 42 ML IV (07:23)
[2023-05-07] MEDS: SCOPOLAMINE 1 PATCH TOP (07:37)
[2023-05-07] MEDS: CEFAZOLIN 2 GM/100 ML PREMIX 100 ML IV (08:23)
[2023-05-07] MEDS: BUPIVACAINE 0.5% (PF) 30 ML VIAL INJ (08:33)
--- NOTE | 2023-05-07 08:36 | SUR.OPER ---
Supine on padded OR bed, head on pillow, arms secured on padded arm boards at <90 degrees abduction, legs uncrossed, safety belt at thigh, tape over blanket over lower legs.
--- NOTE | 2023-05-07 12:06 | P.OP_ITS ---
Operative Date/Time/Diagnoses Date of procedure: 05/07/23 Time of procedure: 12:06 Pre-op diagnosis: Severe right lower quadrant abdominal pain Post-op diagnosis: same Procedure & Clinicians Procedure: 1. Exploratory laparoscopy with small laparotomy 2. Extensive right lower quadrant lysis of adhesions 3. Foreign body removal/biopsy Same procedure as scheduled: Yes Indications: Ms. Janet Herbert presented to the emergency room with severe right lower quadrant pain. She has an extensive surgical history including a known amount of adhesions. After discussion of risks benefits and alternatives she decided to proceed with a diagnostic laparoscopy possible laparotomy and indicated procedures Surgeon: Mya Mendoza Attending Anesthesiologist: Randolph Willis Anesthesia Type: General Operative Notes Findings: There were extensive right lower quadrant adhesions. The right ovary appeared normal in size and appearance. It was hard and firm but after consultation with Dr. Lacey, determined to be normal. There were a few small palpable lymph nodes in the mesentery of the terminal ileum. No firm masses were appreciated. There did appear to be a possibility of intermittent rotation or movement of the cecum and terminal ileum around some of the adhesions. Multiple photographs were taken in intraoperatively. The adhesions were taken down the cecum/TI mobilized and brought to the midline and palpated and visually inspected thoroughly. Around the region where there was pain, there was a stray staple formation with scar tissue adhered to the abdominal wall which was removed and sent to pathology. Applied: catheter (Urinary catheter placed under anesthesia and removed postoperatively) Estimated Blood Loss (mL): 100 Procedure in detail: Patient was taken to the operating room and placed supine on the operating room table. Bilateral SCDs were placed, preoperative antibiotics administered and a time-out was performed. General endotracheal anesthesia was induced and the abdomen was prepped and draped in the usual sterile fashion. Next local anesthetic was infused above the umbilicus and an 11 blade scalpel was used to make a 10 mm incision which was carried down through the subcutaneous tissue until the anterior abdominal wall fascia was encountered and doubly grasped with a Rima. Of note the fascia was quite some ways away from the skin and so there was some struggle in this process it took longer than average. Two stay sutures were placed through the fascia and the Any trocar was placed under direct visualization into the abdomen. Attempt to insufflate the abdomen was then made. The initial opening pressure was 12 mm Hg and so the Any was removed. I took a closer look and did a finger sweep there were some adhesions that I could feel with my finger but, I thought that we were past the fascia and into the abdomen so I tried again to insufflate the abdomen. At this time, pressure was appropriatly low initially and so the flow was increased until the abdominal pressure reached 15 mm of Hg and the abdomen was distended. However, at this time, when I placed the 5 mm 30 degree camera into the trocar, there was nothing that could be visualized besides adhesions and fatty tissue all around the entry incision. After these attempts to place the Any trocar in the chosen location above the umbilicus, I made a decision to extend the excision somewhat to perform some lysis of adhesions around the area. I used a #10 Blade scalpel and extended the incision inferiorly towards the pubis for about 10 cm. I then carried this incision through the subcutaneous tissue using electrocautery and then further through the fascial layer taking careful care to avoid bowel injury due to adhesions that were nearby. At this point I asked Lalo to join me for assistance with retraction and visualization. We were able to lift the fascia and do some careful lysis of adhesions around the midline using Metzenbaum scissors. Most of the adhesions were adhesed omentum, however there were 1 or 2 small loops of small bowel involved that required lysis nearby. After clearing the edges of the small midline incision I was able to enter a pocket of open area in the right lower quadrant which felt like it could be visualized laparoscopically. At this point I placed a 5 mm trocar through the right rectus lateral to the umbilicus using my hand to guide it into the abdomen. I then placed a wound protector into the midline wound and and clamped it shut an attempted to reinsufflated the abdomen. There was a continued air leak through this wound protector and so it was then removed and the midline wound was covered with an ioban. The abdomen was re-insufflated and I was able to see quite well into the right lower quadrant as well as visualize the right ovary. At this time I could see that there was some sort of process occurring in the right lower quadrant involving an adhesive process. This appeared to be the most likely location of pathology. I then decided to place a 2nd 5 mm trocar in the suprapubic location. During this attempt we lost our pneumoperitoneum since the ioban dressing came free. After a few attempts to secure that plastic dressing in a way that would hold the pneumoperitoneum I took it all down closed the skin with some temporary skin dwight and replaced a new Ioban over top of it. This technique ultimately worked to hold the pneumoperitoneum in and prevent it from leaving through that larger midline wound that had been created for the purpose of lysis of adhesions. Next I used a Any trocar and I placed it through the midline wound through the ioban and inflated the balloon and clamped it down. Using this and the suprapubic trocar and leaving the camera in the right upper quadrant, I was able to proceed with Lalo's help to do a extensive lysis of adhesions in the right lower quadrant. Several photographs were taken of the ovary as well as the initial lay of the terminal ileum and cecum with the adhesions and then photographs that showed the progression of the lysis over time. I ultimately mo bilize the entire cecum in order to turn it over and inspect the posterior aspect of the terminal ileum. In the region of the terminal ileum there was stray cluster of dwight with some thick adhesive tissue around it. Otherwise no other pathology was identified laparoscopically. At this point I desufflated the abdomen open the midline again and having mobilize the cecum was able to bring the terminal ileum into the small midline wound that had been created prior. I palpated the entire area and there were some small palpable lymph nodes in the mesentery nearby. But otherwise the bowel seemed relatively normal there was no hard mass. I do believe I was feeling normal bowel wall but there might have been some thickening and so colonoscopy in 6-8 weeks is advised. I found the small area clustered dwight and scar tissue and removed it with electrocautery. I sent this to pathology I then replaced the cecum and terminal ileum to the right lower quadrant and pulled the omentum across the midline wound. I closed the fascia with 2 0 looped PDS. The skin was then closed with a running 4-0 Monocryl and dressed with Steri-Strips. Complications: none Post-operative Condition: stable Disposition: PACU
[2023-05-07] MEDS: OXYCODONE IR 5 MG TABLET PO (12:44)
--- NOTE | 2023-05-07 12:44 | SUR.PHASEI ---
Dr Mendoza took patients engagement ring and brought it out to patients significant other when she went out to speak with him.
[2023-05-07] MEDS: HYDROCODONE/ACET 5/325 TABLET 2 TAB PO ×2 (13:27→19:57)
[2023-05-07] MEDS: DOCUSATE 100 MG CAPSULE PO (20:12)
[2023-05-08 00:23] VITALS: BP 114/67; PULSE 86; RESP 20; TEMP 35.6; O2SAT 97
[2023-05-08] MEDS: HYDROMORPHONE 0.5 MG INJ IV ×4 (00:54→20:58)
[2023-05-08] MEDS: HYDROCODONE/ACET 5/325 TABLET 2 TAB PO ×3 (03:36→17:27)
[2023-05-08 08:00] VITALS: BP 120/86; PULSE 76; RESP 18; TEMP 36.6; O2SAT 98
[2023-05-08] MEDS: hydroCHLOROthiazide 25 MG TABLET 12.5 MG PO (08:14)
[2023-05-08] MEDS: DOCUSATE 100 MG CAPSULE PO (08:14)
--- NOTE | 2023-05-08 08:38 | PC.NURSE ---
Addendum entered by Karin Hassan R.N. 05/08/23 15:32: Patient given another dose of iv dilaudid as she was in 7/10 pain. This has been helpful for patient. She is visiting with her family now. Dr. Mendoza called and states that she will be by to see patient this after noon. Patient has been upgraded to a general diet. Addendum entered by Karin Hassan R.N. 05/08/23 10:38: Patient just given vicodin 2 tabs for complaints of pain to mid lower abdomen. She is resting and moving around in her bed independently. Original Note: Assess- Patient is alert and oriened x4. She states that she is having 7/10 pain, given 0.5mg of iv dilaudid and helpful. Tolerating clear liquid diet. Patient has two lap sites and a small ml incision that are all cdi, she has some significant bruising to the lower ml incision. 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 Resting and eating breakfast at this time.
--- NOTE | 2023-05-08 16:51 | PM.PN.1 ---
Subjective Subjective Date Patient Seen: 05/08/23 Time Patient Seen: 16:51 Interval history: comlpains of incisional pain Exam Vital Signs (past 8 hours): Oxygen Delivery Method Room Air Oxygen Flow Rate 0 Narrative Exam Narrative: Incsisions are healing well and remain covered with steri-strips Objective Labs 05/07/23 04:57 05/07/23 04:57 [facility] Medical History (Updated 05/06/23 @ 00:16 by Lissa Conte MD) Bipolar disorder Celiac disease GERD with apnea Hypertension Polycystic ovary disease Surgical History (Updated 05/07/23 @ 07:02 by Jennifer Haynes MD) H/O abdominoplasty H/O gastric sleeve H/O oophorectomy History of appendectomy History of section History of cholecystectomy Status post tubal ligation Social History household members: significant other and children Smoking Status: Never smoker alcohol intake: current Assessment & Plan Assessment and plan (1) Abdominal pain, RLQ: Status: Acute Plan Doing well on post op day 1 after diagnostic laparoscopy with mini-laparotomy. Dr. Mendoza will see tomorrow regarding post op plans
[2023-05-08 19:00] VITALS: BP 107/55; PULSE 94; RESP 18; TEMP 36.8; O2SAT 97
[2023-05-09] MEDS: HYDROCODONE/ACET 5/325 TABLET 2 TAB PO ×3 (00:07→12:01)
[2023-05-09 08:45] VITALS: BP 128/76; PULSE 67; RESP 18; TEMP 36.9; O2SAT 98
[2023-05-09] MEDS: DOCUSATE 100 MG CAPSULE PO (08:51)
[2023-05-09] MEDS: hydroCHLOROthiazide 25 MG TABLET 12.5 MG PO (08:52)
--- NOTE | 2023-05-09 12:35 | PC.NURSE ---
Assess- Patient given vicodin and now talking to . Incisions to cdi, dressing with some dried drainage. Patient will most likely go home today.
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
--- NOTE | 2023-05-09 13:50 | CM.DPC ---
DCP Discharge Home Per Surgeon, pt's pain seems to be controlled now and she is tolerating general diet and voided independently and medically stable to d/c home today with outpt f/u and no further identified barriers to discharge. Per RN, pt independent in room and no concerns noted. Plan: Patient to d/c home via supportive spouse POV and outpt f/u and no further SW needs at this time. GIO López
== END 2023-05-09 15:30 | disposition home or self-care (01) | DRG 337 ==
LOC: ED 22:40 → AC 05-06 00:14
PROVIDERS: Admitting Provider Surgery; Emergency Provider Emergency Medicine; PCP Internal Medicine; Visit Provider Surgery
PROC: 0DNU4ZZ Release Omentum, Percutaneous Endoscopic Approach (ICD-10-PCS; CPT 49320; principal; 2023-05-07 07:45)
DX: K66.0 Peritoneal adhesions (postprocedural) (postinfection) (principal); R10.31 Right lower quadrant pain; I10 Essential (primary) hypertension; F41.9 Anxiety disorder, unspecified; E11.9 Type 2 diabetes mellitus without complications; Z79.84 Long term (current) use of oral hypoglycemic drugs; Z98.84 Bariatric surgery status
CPT/HCPCS: 36415; 51798; 74176; 76830; 76856; 80048; 80053; 81003; 83605; 85025; 93976; 96374; 96375; 99285; G0378; J0330; J0690; J1100; J1170; J1885; J2405; J2704; J2765; J3010; J3490

== ENCOUNTER → 2023-05-17 11:44 | Outpatient (CLI) | payer MEDICARE, OTHER, MEDICAID, SELFPAY ==
[2023-05-06 00:47] VITALS: BMI 35.2
--- NOTE | 2023-05-17 11:47 | DI.CT.S_ITS ---
PROCEDURE: CT ABDOMEN PELVIS W CON INDICATIONS: post op distension and abdominal pain TECHNIQUE: After the administration of intravenous contrast, axial sections acquired from the lung bases to the pubic symphysis. Coronal and sagittal reformats were performed. For radiation dose reduction, the following was used: automated exposure control, adjustment of mA and/or kV according to patient size. COMPARISON: [facility], CT, CT ABDOMEN PELVIS W CON, 03/13/2023, 16:37. FINDINGS: Lower thorax: The lung bases are clear. Heart size normal. No hiatal hernia. Liver: Normal in size and attenuation. No contour deformity present. Biliary system: Cholecystectomy. No intra or extrahepatic bile duct dilation. Pancreas: Unremarkable without mass or inflammation evident. Spleen: 4.8 cm splenic cyst remains unchanged Adrenals: Normal morphology and density. Reproductive system: Hysterectomy. Urinary system: Normal renal size and attenuation. No renal calculi, hydronephrosis, or solid mass present. Urinary bladder unremarkable. Gastrointestinal system: Prior gastric surgery noted. No bowel obstruction. Multiple diverticula arise from the sigmoid colon without evidence of diverticulitis. Appendix: Appendectomy Peritoneal spaces: No mesenteric or retroperitoneal adenopathy. No free air. No small amount of free fluid in the pelvis Vasculature: The IVC, aorta and iliac vasculature are unremarkable. Abdominal wall: Abdominal wall intact without evidence of ventral or inguinal hernias. Musculoskeletal: Normal bone mineralization. No acute fractures. A postop seroma or lymphocele noted in the subcutaneous periumbilical fat measuring 5.4 x 2.1 x 5.1 cm extending to the anterior abdominal wall, with there is additional fluid and edema within the wall itself. Adjacent intraperitoneal edema as well without evidence of organized intraperitoneal abscess. IMPRESSION: 1. Probable postoperative seroma lymphocele in the anterior subcutaneous tissue extending to the anterior abdominal wall. No evidence of soft tissue gas or currently organizing abscess. 2. Postoperative findings status post gastric surgery, cholecystectomy, appendectomy, hysterectomy 3. Stable splenic cyst Approved by: Romel Wills M.D. on 05/17/2023 at 13:19
[2023-05-17 13:07] LABS: Add Manual Diff / Slide Review NO; Basophils Absolute Auto 100 /uL (0-100); Basophils Percent Auto 0.8 % (0-2); Eosinophils Absolute Auto 700 /uL (0-450); Eosinophils Percent Auto 7.5 % (2-4); Hematocrit 31.7 % (36-46); Hemoglobin 10.5 g/dL (12.0-16.0); Lymphocytes Absolute Auto 3200 /uL (1100-4500); Lymphocytes Percent Auto 36.5 % (25-40); Mean Corpuscular HGB Conc 33.2 % (30-36); Mean Corpuscular Hemoglobin 28.1 PG (26-34); Mean Corpuscular Volume 84.7 fL (80-100); Monocytes Absolute Auto 700 /uL (0-900); Monocytes Percent Auto 8.6 % (3-14); Neutrophils Absolute Auto 4100 /uL (1500-7000); Neutrophils Percent Auto 46.6 % (50-75); Platelet Count 383 X10^3/uL (150-400); Red Blood Cell Count 3.75 X10^6/uL (4.0-5.2); Red Cell Distribution Width 14.2 % (11.6-14.8); White Blood Cell Count 8.7 X10^3/uL (4.5-11.0)
[2023-05-17 13:27] LABS: Alanine Aminotransferase 39 IU/L (<35); Albumin 3.8 g/dL (3.5-5.0); Albumin Globulin Ratio 1.5 (1.0-2.8); Alkaline Phosphatase 48 U/L (38-126); Aspartate Aminotransferase 30 IU/L (14-36); BUN Creatinine Ratio 21.3 (6-22); Bilirubin Total 0.6 mg/dL (0.2-1.3); Blood Urea Nitrogen 10 mg/dL (7-17); Carbon Dioxide 26 mmol/L (22-32); Chloride 103 mmol/L (98-107); Estimated Glomerular Filt Rate > 60 mL/min (>60); Globulin 2.6 g/dL (1.7-4.1); Glucose 94 mg/dL (70-100); HEMOLYSIS < 15 (0-50); Potassium 3.7 mmol/L (3.4-5.1); Sodium 138 mmol/L (137-145); Total Protein 6.4 g/dL (6.3-8.2)
== END ==
PROVIDERS: PCP Internal Medicine; Referring Provider Surgery; Visit Provider Surgery
DX: R10.84 Generalized abdominal pain (principal); G89.18 Other acute postprocedural pain; Z90.49 Acquired absence of other specified parts of digestive tract; Z90.710 Acquired absence of both cervix and uterus
CPT/HCPCS: 36415; 74177; 80053; 85025; Q9967

== ENCOUNTER → 2023-10-14 13:07 | Outpatient (CLI) | payer MEDICARE, OTHER, SELFPAY ==
[2023-05-06 00:47] VITALS: BMI 35.2
== END ==
PROVIDERS: PCP Internal Medicine; Visit Provider Registered Nurse
DX: R39.15 Urgency of urination (principal)
CPT/HCPCS: 87086

== ENCOUNTER 2023-10-14 13:39 | Emergency (ER) | payer MEDICARE, OTHER, SELFPAY ==
[2023-05-06 00:47] VITALS: BMI 35.2
[2023-10-14 13:50] VITALS: BP 130/89; PULSE 90; RESP 18; TEMP 36.6; O2SAT 99; BMI 34.1
--- NOTE | 2023-10-14 14:28 | DI.US.S_ITS ---
PROCEDURE: US PELVIC COMPLETE INDICATIONS: r/o right ovarian cyst TECHNIQUE: Real-time scanning was performed of the pelvic organs, with image documentation. Additional endovaginal scanning was necessary due to incomplete visualization of the adnexal and endometrial structures by transabdominal scanning. COMPARISON: [facility], US, US PELVIC COMPLETE, 05/06/2023, 9:21. FINDINGS: Uterus: Surgically absent Ovaries: Not seen. Other: No pathologic free abdominal or pelvic fluid. IMPRESSION: 1. Postsurgical sequelae. 2. No acute process. We strive to produce accurate, complete, and clear reports of imaging services. To assist us in improving patient care, this report was composed using standard report templates and voice recognition software. Therefore, it may contain abnormal punctuation, insertions and/or omissions. Occasional wrong-word or sound-alike substitutions may occur. Though we review the report and make efforts to correct it, we do recommend that the report be read carefully in proper context to recognize any text inaccuracies. Dictated by: Arnold Page M.D. on 10/14/2023 at 14:59 Approved by: Arnold Page M.D. on 10/14/2023 at 15:00
[2023-10-14 14:57] VITALS: BP 135/88; PULSE 97; RESP 16; O2SAT 100
--- NOTE | 2023-10-14 15:36 | ED_ITS ---
HPI - Abdominal Pain <Carmen Petersen PA-C - Last Filed: 10/14/23 18:58> General Chief Complaint: Abdominal Pain Stated Complaint: back and side pain possible ovarian cyst Time Seen by Provider: 10/14/23 14:59 Source: patient Mode of arrival: Ambulatory History of Present Illness HPI narrative: 42-year-old female with past medical history PCOS, celiac disease, GERD, hypertension presents to the ED with 3 days of abdominal pain and lower back pain. Patient describes the pain as being in the right lower abdomen and the back pain in the right lower back. Patient went to the walk-in clinic since she suspected a urinary tract infection. The walk-in clinic sent her to the ED for further evaluation due to patient's complicated history. Patient has a complicated history of abdominal surgeries. Patient is status post hysterectomy, left oophorectomy, cholecystectomy. Patient also a exploratory laparotomy to the will unexplained right lower quadrant pain. The exploratory surgery revealed multiple dwight that had formed additions in her abdominal wall in the right lower quadrant. The dwight were all removed and multiple adhesions lysed. Patient states that since that surgery, she has been feeling quite well until she started experiencing the abdominal pain 3 days ago. Patient also endorses nausea, vomiting. Patient does have a history of kidney stones. Patient also had a hemorrhagic cyst of the right ovary 2 years ago. Patient denies dysuria, urinary urgency, urinary hesitancy, urinary frequency. No hematochezia, melena. Bowel movements have been normal, last bowel movement was yesterday. Related Data Home Medications Medication Instructions Recorded Confirmed phentermine 37.5 mg tablet 37.5 mg PO DAILY 10/28/22 10/14/23 alprazolam 0.5 mg tablet 0.5 mg PO BID PRN Anxiety 05/06/23 10/14/23 hydrochlorothiazide 12.5 mg tablet 12.5 mg PO DAILY 05/06/23 10/14/23 metformin 500 mg tablet,extended 500 mg PO DAILY 05/06/23 10/14/23 release 24 hr topiramate 25 mg tablet 25 mg PO BID 10/14/23 10/14/23 Allergies Allergy/AdvReac Type Severity Reaction Status Date / Time benzonatate Allergy Unknown Hives Verified 10/14/23 12:58 [From Ezekiel Dhaliwal] gluten Allergy Verified 10/14/23 12:58 coconut AdvReac Intermediate Hives Verified 10/14/23 12:58 NSAIDS (Non-Steroidal AdvReac Mild Gastrointestinal Verified 10/14/23 12:58 Anti-Inflamma Upset escitalopram [From Lexapro] AdvReac Unknown Hallucinati Verified 10/14/23 12:58 ng Review of Systems <Carmen Petersen PA-C - Last Filed: 10/14/23 18:58> Constitutional Constitutional: Denies chills, Denies fatigue, Denies fever(s), Denies frequent falls, Denies lethargy and Denies weakness Eyes Eyes: Denies change in vision, Denies eye discharge, Denies irritation and Denies loss of vision ENT Ears, Nose, Mouth, and Throat: Denies change in voice, Denies dizziness, Denies neck pain, Denies sore throat and Denies throat swelling Cardiovascular Cardiovascular: Denies chest pain, Denies irregular heart rhythm, Denies lightheadedness, Denies palpitations, Denies dyspnea, Denies dyspnea on exertion and Denies orthopnea Respiratory Respiratory: Denies cough, Denies dyspnea, Denies dyspnea on exertion and Denies wheezing Gastrointestinal Gastrointestinal: Reports abdominal pain, Denies change in bowel habits, Denies diarrhea, Reports nausea and Reports vomiting Musculoskeletal Musculoskeletal: Denies neck pain and Denies numbness Integumentary/Breasts Skin/Breast: Denies pruritus, Denies erythema, Denies rash and Denies wounds Neurologic Neurologic: Denies behavioral changes, Denies confusion, Denies dizziness, Denies frequent falls, Denies loss of vision, Denies numbness and Denies weakness Psychiatric Psychiatric: Denies anxiety, Denies behavioral changes, Denies confusion, Denies depression, Denies homicidal ideation and Denies suicidal ideation Endocrine Endocrine: Denies fatigue, Denies flushing and Denies palpitations Hematologic/Lymphatic Hematologic/Lymphatic: Denies easy bruising Allergic/Immunologic Allergic/Immunologic: Denies urticaria, Denies throat swelling and Denies wheezing Patient History <Carmen Petersen PA-C - Last Filed: 10/14/23 18:58> Medical History Polycystic ovary disease Celiac disease GERD with apnea Hypertension Bipolar disorder Surgical History Status post tubal ligation History of section H/O abdominoplasty H/O oophorectomy H/O gastric sleeve History of cholecystectomy History of appendectomy Social History household members: significant other and children Smoking Status: Never smoker alcohol intake: current Smoking Status: Never smoker alcohol intake frequency: holidays/special occasions only Substance Use Type: marijuana Exam <Carmen Petersen PA-C - Last Filed: 10/14/23 18:58> Narrative Exam Narrative: Const General:?cooperative, healthy appearing and comfortable [facility] Head:?normal to inspection Ears:?hearing grossly normal bilaterally Nose:?external nose normal Face and sinus:?normal facial exam and sinuses nontender Mouth:?oral mucosae normal Throat:?posterior oropharynx normal Eyes General:?appearance normal, both eyes and all related structures Neck Neck:?normal visual inspection and no lymphadenopathy noted Resp Effort & Inspection:?normal respiratory effort Auscultation:?clear to auscultation bilaterally Cardio Rate:?regular rate Rhythm:?regular rhythm GI Abdomen is soft, nondistended. Abdomen is exquisitely tender to palpation in the right lower quadrant. There is right-sided CVA tenderness. Neuro General:?patient alert, patient awake and patient oriented x3 Initial Vital Signs Initial Vital Signs: Vital Signs Temperature 97.9 F 10/14/23 13:50 Pulse Rate 90 10/14/23 13:50 Respiratory Rate 18 10/14/23 13:50 Blood Pressure 130/89 10/14/23 13:50 Pulse Oximetry 99 10/14/23 13:50 Oxygen Delivery Method Room Air 10/14/23 13:50 <Karen Milan DO - Last Filed: 10/14/23 19:11> Initial Vital Signs Initial Vital Signs: Vital Signs Temperature 97.9 F 10/14/23 13:50 Pulse Rate 90 10/14/23 13:50 Respiratory Rate 18 10/14/23 13:50 Blood Pressure 130/89 10/14/23 13:50 Pulse Oximetry 99 10/14/23 13:50 Oxygen Delivery Method Room Air 10/14/23 13:50 Course <Carmen Petersen PA-C - Last Filed: 10/14/23 18:58> Orders Ordered: ED Orders 10/14/23 14:28 US pelvic complete Stat 02/06/24 15:47 CT abdomen pelvis w con Stat 10/14/23 16:15 Urine Microscopic Stat 10/14/23 16:35 CBC Auto Diff [Complete Blood Count AUTO DIFF] Stat CMP [Comprehensive Metabolic Panel] Stat Lipase Stat Discontinued Medications Ketorolac Tromethamine (Ketorolac 30 Mg/Ml Vial) 15 mg IV NOW ONE Stop: 10/14/23 15:49 Last Admin: 10/14/23 16:34 Dose: 15 mg Documented By: MARY LOU Morphine Sulfate (Morphine 4 Mg/Ml Inj) 4 mg IV NOW ONE Stop: 10/14/23 17:42 Last Admin: 10/14/23 17:45 Dose: 4 mg Documented By: MARY LOU Vital Signs Vital signs: Vital Signs - 8 hr 10/14/23 13:50 10/14/23 14:57 10/14/23 17:58 Temperature 97.9 F Pulse Rate 90 97 H 68 Respiratory Rate 18 16 16 Blood Pressure 130/89 135/88 145/78 H Pulse Oximetry 99 100 94 Oxygen Delivery Method Room Air Room Air Room Air <Karen Milan, - Last Filed: 10/14/23 19:11> Orders Ordered: ED Orders 10/14/23 14:28 US pelvic complete Stat 10/14/23 15:47 CT abdomen pelvis w con Stat 10/14/23 16:15 Urine Microscopic Stat 10/14/23 16:35 CBC Auto Diff [Complete Blood Count AUTO DIFF] Stat CMP [Comprehensive Metabolic Panel] Stat Lipase Stat Discontinued Medications Ketorolac Tromethamine (Ketorolac 30 Mg/Ml Vial) 15 mg IV NOW ONE Stop: 10/14/23 15:49 Last Admin: 10/14/23 16:34 Dose: 15 mg Documented By: MARY LOU Morphine Sulfate (Morphine 4 Mg/Ml Inj) 4 mg IV NOW ONE Stop: 10/14/23 17:42 Last Admin: 10/14/23 17:45 Dose: 4 mg Documented By: MARY LOU Vital Signs Vital signs: Vital Signs - 8 hr 10/14/23 13:50 10/14/23 14:57 10/14/23 17:58 Temperature 97.9 F Pulse Rate 90 97 H 68 Respiratory Rate 18 16 16 Blood Pressure 130/89 135/88 145/78 H Pulse Oximetry 99 100 94 Oxygen Delivery Method Room Air Room Air Room Air MDM - Abdominal Pain <Hyma Nicola, PA-C - Last Filed: 10/14/23 18:58> Lab Data 10/14/23 16:35 10/14/23 16:35 Labs: Lab Results 10/14/23 10/14/23 Range/Units 16:15 16:35 WBC 10.7 (4.5-11.0) X10^3/uL RBC 4.30 (4.0-5.2) X10^6/uL Hgb 12.0 (12.0-16.0) g/dL Hct 36.6 (36-46) % MCV 85.0 (80-100) fL MCH 27.9 (26-34) PG MCHC 32.8 (30-36) % RDW 15.0 H (11.6-14.8) % Plt Count 350 (150-400) X10^3/uL Neut % (Auto) 51.1 (50-75) % Lymph % (Auto) 38.8 (25-40) % Door % (Auto) 7.9 (3-14) % Eos % (Auto) 1.9 L (2-4) % Baso % (Auto) 0.3 (0-2) % Neut # (Auto) 5500 (3701-3003) /uL Lymph # (Auto) 4100 (2518-6238) /uL Door # (Auto) 800 (0-900) /uL Eos # (Auto) 200 (0-450) /uL Baso # (Auto) 0 (0-100) /uL Sodium 133 L (137-145) mmol/L Potassium 3.8 (3.4-5.1) mmol/L Chloride 99 (98-107) mmol/L Carbon Dioxide 26 (22-32) mmol/L BUN 13 (7-17) mg/dL Creatinine 0.56 (0.52-1.04) mg/dL Estimated GFR > 60 (>60) mL/min BUN/Creatinine Ratio 23.2 H (6-22) Glucose 91 (70-100) mg/dL Calcium 9.3 (8.4-10.2) mg/dL Total Bilirubin 1.0 (0.2-1.3) mg/dL AST 19 (14-36) IU/L ALT 20 (<35) IU/L Alkaline Phosphatase 60 (38-126) U/L Total Protein 7.1 (6.3-8.2) g/dL Albumin 4.1 (3.5-5.0) g/dL Globulin 3.0 (1.7-4.1) g/dL Albumin/Globulin Ratio 1.4 (1.0-2.8) Lipase 58 (23-300) U/L Urine RBC None seen (0-5/HPF) Urine WBC None seen (0-5/HPF) Ur Squamous Epith Cells None seen (0-5/HPF) Urine Bacteria None seen (None) Ur Culture Indicated? Cult not indicated Vol Urine Centrifuged 10ml (spun) Point of care testing: Point of Care Testing Test Results Negative Urine Dip Bedside Urine Glucose Negative Bedside Urine Bilirubin - Negative Bedside Urine Ketone - Negative Urine Specific [facility] 1.010 Bedside Urine Occult Blood - Negative Bedside Urine pH 6.0 Bedside Urine Protein - Negative Bedside Urine Urobilinogen - Negative Bedside Urine Nitrite - Negative Bedside Urine Leukocytes - Negative Esterase MDM Narrative Medical decision making narrative: 42-year-old female with past medical history PCOS, celiac disease, GERD, hypertension presents to the ED with 3 days of abdominal pain and lower back pain. Concern for ovarian torsion versus hemorrhagic ovarian cyst versus surgical sequelae versus diverticulitis versus nephrolithiasis versus pyelonephritis other. Ultrasound pelvis was obtained at triage. Ultrasound without acute findings, however it was unable to identify the right ovary. No pathological free fluid noted. Will obtain labs, UA, CT abdomen pelvis. Will give Toradol. Reassess. Patient's pain did not improve with Toradol. Patient was given a dose of morphine with good relief. Labs within normal limits. UA without UTI. CT abdomen pelvis with no acute findings. Consulted on-call surgeon Dr. Suh who reviewed patient's CT and recommends daily MiraLax for the next few days. She noted significant hard stool burden in the right lower quadrant that she thinks might be contributing to patient's symptoms. She did not note any other emergent findings. Discussed findings with patient. She agrees to try the MiraLax and take Tylenol for discomfort. She agrees to monitor her symptoms and return to the ED if symptoms worsen. Discussed ED return precautions in detail with patient. She verbalized understanding. Medical records reviewed: Yes <Karen Milan DO - Last Filed: 10/14/23 19:11> Lab Data Labs: Lab Results 10/14/23 10/14/23 Range/Units 16:15 16:35 WBC 10.7 (4.5-11.0) X10^3/uL RBC 4.30 (4.0-5.2) X10^6/uL Hgb 12.0 (12.0-16.0) g/dL Hct 36.6 (36-46) % MCV 85.0 (80-100) fL MCH 27.9 (26-34) PG MCHC 32.8 (30-36) % RDW 15.0 H (11.6-14.8) % Plt Count 350 (150-400) X10^3/uL Neut % (Auto) 51.1 (50-75) % Lymph % (Auto) 38.8 (25-40) % Door % (Auto) 7.9 (3-14) % Eos % (Auto) 1.9 L (2-4) % Baso % (Auto) 0.3 (0-2) % Neut # (Auto) 5500 (0464-6386) /uL Lymph # (Auto) 4100 (4627-4063) /uL Door # (Auto) 800 (0-900) /uL Eos # (Auto) 200 (0-450) /uL Baso # (Auto) 0 (0-100) /uL Sodium 133 L (137-145) mmol/L Potassium 3.8 (3.4-5.1) mmol/L Chloride 99 (98-107) mmol/L Carbon Dioxide 26 (22-32) mmol/L BUN 13 (7-17) mg/dL Creatinine 0.56 (0.52-1.04) mg/dL Estimated GFR > 60 (>60) mL/min BUN/Creatinine Ratio 23.2 H (6-22) Glucose 91 (70-100) mg/dL Calcium 9.3 (8.4-10.2) mg/dL Total Bilirubin 1.0 (0.2-1.3) mg/dL AST 19 (14-36) IU/L ALT 20 (<35) IU/L Alkaline Phosphatase 60 (38-126) U/L Total Protein 7.1 (6.3-8.2) g/dL Albumin 4.1 (3.5-5.0) g/dL Globulin 3.0 (1.7-4.1) g/dL Albumin/Globulin Ratio 1.4 (1.0-2.8) Lipase 58 (23-300) U/L Urine RBC None seen (0-5/HPF) Urine WBC None seen (0-5/HPF) Ur Squamous Epith Cells None seen (0-5/HPF) Urine Bacteria None seen (None) Ur Culture Indicated? Cult not indicated Vol Urine Centrifuged 10ml (spun) Point of care testing: Point of Care Testing Test Results Negative Urine Dip Bedside Urine Glucose Negative Bedside Urine Bilirubin - Negative Bedside Urine Ketone - Negative Urine Specific [facility] 1.010 Bedside Urine Occult Blood - Negative Bedside Urine pH 6.0 Bedside Urine Protein - Negative Bedside Urine Urobilinogen - Negative Bedside Urine Nitrite - Negative Bedside Urine Leukocytes - Negative Esterase Discharge Plan Departure Patient Disposition: Home Clinical Impression: Abdominal pain Qualifiers: Abdominal location: right lower quadrant Qualified Code(s): R10.31 - Right lower quadrant pain Instructions: DI for Abdominal Pain-Adult Activity Restrictions/Additional Instructions: You were evaluated in the ED today for abdominal pain. Your ultrasound was normal, did not identify the right ovary. Your labs and urine were normal as well. The CT abdomen pelvis did not show any acute findings other than a lot of hard stool in the right lower quadrant. Our on-call surgeon Dr. Suh reviewed your CT and recommends that you take MiraLax daily for the next several days along with good hydration. You may also take Tylenol for discomfort. Please monitor your symptoms and return to the ED if you have worsening symptoms. Prescriptions: No Action topiramate 25 mg tablet 25 mg PO BID phentermine 37.5 mg tablet 37.5 mg PO DAILY Patient Comments: 1 tablet by mouth every morning BEFORE BREAKFAST alprazolam 0.5 mg tablet 0.5 mg PO BID PRN (Reason: Anxiety) metformin 500 mg tablet extended release 24 hr 500 mg PO DAILY Patient Comments: hasn't started yet, waiting for pharmacy hydrochlorothiazide 12.5 mg tablet 12.5 mg PO DAILY Referrals: Miscellaneous,Doctor, [Primary Care Provider] - Stand Alone Forms: Patient Portal/API, Work Release Note ED Sign-out <Karen Milan DO - Last Filed: 10/14/23 19:11> Cosign ED Attending Asiyaature Attestation: I was immediately available in the department for consultation.
--- NOTE | 2023-10-14 15:47 | DI.CT.S_ITS ---
PROCEDURE: CT ABDOMEN PELVIS W CON INDICATIONS: RLQ pain TECHNIQUE: After the administration of intravenous contrast, axial sections acquired from the lung bases to the pubic symphysis. Coronal and sagittal reformats were performed. For radiation dose reduction, the following was used: automated exposure control, adjustment of mA and/or kV according to patient size. COMPARISON: [facility], CT, CT ABDOMEN PELVIS W CON, 05/17/2023, 11:49. FINDINGS: Image quality: Diagnostic. Lower Chest: No significant findings. ABDOMEN: Liver: No solid mass. Gallbladder: Removed Biliary ducts: Common bile duct measures approximately 9 mm, unchanged and suspected to be related to post cholecystectomy sequela. Pancreas: No ductal dilation. Spleen: Splenic cyst is unchanged. Adrenal Glands: No adrenal nodules. Kidneys and Ureters: No hydronephrosis. No solid mass. No complex renal cystic lesion which requires follow up. Stomach and Bowel: Normal colonic caliber, without significant wall thickening. Scattered diverticula without associated inflammatory change. Appendix is not visualized. Postsurgical gastric changes are present. Peritoneum: No abnormal intraperitoneal fluid. No free air. Ventral Wall: No significant ventral hernia. Abdominal Nodes: No retroperitoneal or mesenteric adenopathy by size criteria. Vessels: Aorta and inferior vena cava are normal in size. PELVIS: Pelvic Organs: Unremarkable. Bladder: No bladder wall thickening, accounting for underdistention. Pelvic Nodes: No enlarged lymph nodes. Miscellaneous: No inguinal hernias are seen. Bones: No aggressive osseous abnormality. IMPRESSION: No visualized cause of right lower quadrant pain. Minimal diverticulosis. Dictated by: Gisselle Hernandes M.D. on 10/14/2023 at 17:29 Approved by: Gisselle Hernandes M.D. on 10/14/2023 at 17:31
[2023-10-14] MEDS: KETOROLAC 30 MG/ML VIAL 15 MG IV (16:34)
[2023-10-14 16:51] LABS: Add Manual Diff / Slide Review NO; Basophils Absolute Auto 0 /uL (0-100); Basophils Percent Auto 0.3 % (0-2); Eosinophils Absolute Auto 200 /uL (0-450); Eosinophils Percent Auto 1.9 % (2-4); Hematocrit 36.6 % (36-46); Lymphocytes Absolute Auto 4100 /uL (1100-4500); Lymphocytes Percent Auto 38.8 % (25-40); Mean Corpuscular HGB Conc 32.8 % (30-36); Mean Corpuscular Hemoglobin 27.9 PG (26-34); Monocytes Absolute Auto 800 /uL (0-900); Monocytes Percent Auto 7.9 % (3-14); Neutrophils Absolute Auto 5500 /uL (1500-7000); Neutrophils Percent Auto 51.1 % (50-75); Platelet Count 350 X10^3/uL (150-400); White Blood Cell Count 10.7 X10^3/uL (4.5-11.0)
[2023-10-14 16:55] LABS: Bacteria Urine None Seen; Culture Indicated Urine Cult Not Indicated; RBC Urine None Seen (0-5/HPF); Squamous Epithelial Cell Urine None Seen (0-5/HPF); Urine Volume 10mL (spun); WBC Urine None Seen (0-5/HPF)
[2023-10-14 17:01] LABS: Alanine Aminotransferase 20 IU/L (<35); Albumin 4.1 g/dL (3.5-5.0); Albumin Globulin Ratio 1.4 (1.0-2.8); Alkaline Phosphatase 60 U/L (38-126); Aspartate Aminotransferase 19 IU/L (14-36); BUN Creatinine Ratio 23.2 (6-22); Blood Urea Nitrogen 13 mg/dL (7-17); Calcium 9.3 mg/dL (8.4-10.2); Carbon Dioxide 26 mmol/L (22-32); Chloride 99 mmol/L (98-107); Estimated Glomerular Filt Rate > 60 mL/min (>60); Glucose 91 mg/dL (70-100); HEMOLYSIS < 15 (0-50); Lipase 58 U/L (23-300); Potassium 3.8 mmol/L (3.4-5.1); Sodium 133 mmol/L (137-145); Total Protein 7.1 g/dL (6.3-8.2)
[2023-10-14] MEDS: MORPHINE 4 MG/ML INJ IV (17:45)
[2023-10-14 17:58] VITALS: BP 145/78; PULSE 68; RESP 16; O2SAT 94
== END 2023-10-14 18:50 | disposition home or self-care (01) ==
PROVIDERS: Emergency Provider Student in an Organized Health Care Education/Training Program
DX: R10.31 Right lower quadrant pain (principal); Z90.710 Acquired absence of both cervix and uterus; Z90.721 Acquired absence of ovaries, unilateral; Z90.49 Acquired absence of other specified parts of digestive tract; R39.15 Urgency of urination
CPT/HCPCS: 36415; 74177; 76817; 76856; 80053; 81003; 81015; 81025; 83690; 85025; 87077; 87086; 87186; 96374; 96375; 99284; J1885; J2270; Q9967

== ENCOUNTER 2023-10-21 11:11 | Emergency (ER) | payer MEDICARE, OTHER, SELFPAY ==
[2023-05-06 00:47] VITALS: BMI 35.2
[2023-10-21 12:07] VITALS: BP 165/116; PULSE 81; RESP 20; TEMP 36.7; O2SAT 95; BMI 34.1
[2023-10-21 15:43] VITALS: BP 162/94; PULSE 76; RESP 16; O2SAT 98
[2023-10-21] MEDS: ONDANSETRON 4 MG/2 ML INJ IV (15:48)
[2023-10-21 16:00] LABS: Add Manual Diff / Slide Review NO; Basophils Absolute Auto 100 /uL (0-100); Basophils Percent Auto 0.9 % (0-2); Eosinophils Absolute Auto 200 /uL (0-450); Eosinophils Percent Auto 1.5 % (2-4); Hematocrit 39.4 % (36-46); Hemoglobin 13.1 g/dL (12.0-16.0); Lymphocytes Absolute Auto 3700 /uL (1100-4500); Lymphocytes Percent Auto 34.5 % (25-40); Mean Corpuscular HGB Conc 33.2 % (30-36); Mean Corpuscular Hemoglobin 27.5 PG (26-34); Monocytes Absolute Auto 700 /uL (0-900); Monocytes Percent Auto 6.3 % (3-14); Neutrophils Absolute Auto 6100 /uL (1500-7000); Neutrophils Percent Auto 56.8 % (50-75); Platelet Count 355 X10^3/uL (150-400); Red Blood Cell Count 4.75 X10^6/uL (4.0-5.2); Red Cell Distribution Width 14.9 % (11.6-14.8); White Blood Cell Count 10.7 X10^3/uL (4.5-11.0)
[2023-10-21 16:19] LABS: Alanine Aminotransferase 19 IU/L (<35); Albumin 4.6 g/dL (3.5-5.0); Albumin Globulin Ratio 1.3 (1.0-2.8); Alkaline Phosphatase 57 U/L (38-126); Aspartate Aminotransferase 20 IU/L (14-36); BUN Creatinine Ratio 19.6 (6-22); Bilirubin Total 0.7 mg/dL (0.2-1.3); Blood Urea Nitrogen 10 mg/dL (7-17); Calcium 9.4 mg/dL (8.4-10.2); Carbon Dioxide 22 mmol/L (22-32); Chloride 106 mmol/L (98-107); Estimated Glomerular Filt Rate > 60 mL/min (>60); Globulin 3.5 g/dL (1.7-4.1); Glucose 95 mg/dL (70-100); HEMOLYSIS < 15 (0-50); Lipase 109 U/L (23-300); Potassium 3.6 mmol/L (3.4-5.1); Sodium 141 mmol/L (137-145); Total Protein 8.1 g/dL (6.3-8.2)
--- NOTE | 2023-10-21 18:16 | ED.ABDPAIN ---
HPI - Abdominal Pain General Chief Complaint: Abdominal Pain Stated Complaint: sent by PCP/ R/lower abd pain Time Seen by Provider: 10/21/23 18:01 Source: patient Mode of arrival: Ambulatory History of Present Illness HPI narrative: 42yoF presents for persistent right lower quadrant abdominal pain. Patient was seen 10/14/23 for same, she underwent unremarkable CT abdomen and pelvis and pelvic ultrasound, and no cause of her pain was found. Patient has had persistent pain and called her primary care doctor's office for follow up, however they referred her back to the emergency department since she was complaining of so much pain. Patient states she has a history of adhesions in her right lower quadrant that had to be lysed in the remote past, however her surgeon has since retired and she does not currently follow with a general surgeon. Related Data Home Medications Medication Instructions Recorded Confirmed phentermine 37.5 mg tablet 37.5 mg PO DAILY 10/28/22 10/14/23 alprazolam 0.5 mg tablet 0.5 mg PO BID PRN Anxiety 05/06/23 10/14/23 hydrochlorothiazide 12.5 mg tablet 12.5 mg PO DAILY 05/06/23 10/14/23 metformin 500 mg tablet,extended 500 mg PO DAILY 05/06/23 10/14/23 release 24 hr topiramate 25 mg tablet 25 mg PO BID 10/14/23 10/14/23 Previous Rx's Medication Instructions Recorded nitrofurantoin 100 mg PO Q12H 5 days #10 caps 10/19/23 monohydrate/macrocrystals 100 mg capsule (Macrobid) tramadol 50 mg tablet 50 mg PO Q8H PRN pain #14 tabs 10/21/23 Allergies Allergy/AdvReac Type Severity Reaction Status Date / Time benzonatate Allergy Unknown Hives Verified 10/21/23 12:13 [From Tessalblayne Perlhan] gluten Allergy Verified 10/21/23 12:13 coconut AdvReac Intermediate Hives Verified 10/21/23 12:13 NSAIDS (Non-Steroidal AdvReac Mild Gastrointestinal Verified 10/21/23 12:13 Anti-Inflamma Upset escitalopram [From Lexapro] AdvReac Unknown Hallucinati Verified 10/21/23 12:13 ng Review of Systems Review of Systems Narrative: Negative except as noted above Patient History Medical History Polycystic ovary disease Celiac disease GERD with apnea Hypertension Bipolar disorder Surgical History Status post tubal ligation History of section H/O abdominoplasty H/O oophorectomy H/O gastric sleeve History of cholecystectomy History of appendectomy Social History household members: significant other and children Smoking Status: Never smoker alcohol intake: current Smoking Status: Never smoker alcohol intake frequency: holidays/special occasions only Substance Use Type: marijuana Exam Initial Vital Signs Initial Vital Signs: Vital Signs Temperature 98.1 F 10/21/23 12:07 Pulse Rate 81 10/21/23 12:07 Respiratory Rate 20 10/21/23 12:07 Blood Pressure 165/116 H 10/21/23 12:07 Pulse Oximetry 95 10/21/23 12:07 Oxygen Delivery Method Room Air 10/21/23 12:07 Const: Awake, alert, no acute distress, nontoxic appearing Cardiac: regular rate, regular rhythm RESP: unlabored, clear bilaterally, no wheezing GI: Soft, tender to deep palpation in the right lower quadrant, no rebound, no guarding MSK: Atraumatic, full range of motion, pulses equal Skin: Warm, Dry, intact, no rashes Neuro: AO x3, CN II-XII grossly intact, moves all extremities Psych: affect normal, mood normal, not suicidal, not homicidal Course Orders Ordered: ED Orders 10/21/23 15:44 Complete Blood Count AUTO DIFF Stat Comprehensive Metabolic Panel Stat Lactate (Lactic Acid) Stat Lipase Stat 10/21/23 18:31 CT angio abdomen pelvis Stat Discontinued Medications Morphine Sulfate (Morphine 4 Mg/Ml Inj) 4 mg IV NOW ONE Stop: 10/21/23 18:17 Last Admin: 10/21/23 18:48 Dose: 4 mg Documented By: BS Ondansetron HCl (Ondansetron 4 Mg/2 Ml Inj) 4 mg IV NOW PRN PRN Reason: Nausea And Vomiting Last Admin: 10/21/23 15:48 Dose: 4 mg Documented By: SB Ondansetron HCl (Ondansetron 4 Mg Odt) 4 mg PO NOW PRN PRN Reason: Nausea And Vomiting Vital Signs Vital signs: Vital Signs - 8 hr 10/21/23 15:43 10/21/23 18:47 10/21/23 18:52 Pulse Rate 76 76 Respiratory Rate 16 Blood Pressure 162/94 H 193/107 H Pulse Oximetry 98 100 Oxygen Delivery Method Room Air 10/21/23 18:52 10/21/23 19:00 10/21/23 19:01 Pulse Rate 63 68 Respiratory Rate Blood Pressure 214/91 H Pulse Oximetry 100 100 Oxygen Delivery Method 10/21/23 19:01 Pulse Rate 68 Respiratory Rate Blood Pressure Pulse Oximetry 100 Oxygen Delivery Method Room Air MDM - Abdominal Pain Differential Diagnosis Differential diagnosis: Likely abdominal pain, acute appendicitis and calculus of kidney Lab Data 10/21/23 15:44 10/21/23 15:44 Labs: Lab Results 10/21/23 Range/Units 15:44 WBC 10.7 (4.5-11.0) X10^3/uL RBC 4.75 (4.0-5.2) X10^6/uL Hgb 13.1 (12.0-16.0) g/dL Hct 39.4 (36-46) % MCV 83.0 (80-100) fL MCH 27.5 (26-34) PG MCHC 33.2 (30-36) % RDW 14.9 H (11.6-14.8) % Plt Count 355 (150-400) X10^3/uL Neut % (Auto) 56.8 (50-75) % Lymph % (Auto) 34.5 (25-40) % [place] % (Auto) 6.3 (3-14) % Eos % (Auto) 1.5 L (2-4) % Baso % (Auto) 0.9 (0-2) % Neut # (Auto) 6100 (3291-1702) /uL Lymph # (Auto) 3700 (8903-1720) /uL [place] # (Auto) 700 (0-900) /uL Eos # (Auto) 200 (0-450) /uL Baso # (Auto) 100 (0-100) /uL Sodium 141 (137-145) mmol/L Potassium 3.6 (3.4-5.1) mmol/L Chloride 106 (98-107) mmol/L Carbon Dioxide 22 (22-32) mmol/L BUN 10 (7-17) mg/dL Creatinine 0.51 L (0.52-1.04) mg/dL Estimated GFR > 60 (>60) mL/min BUN/Creatinine Ratio 19.6 (6-22) Glucose 95 (70-100) mg/dL Lactate 2.0 (0.7-2.1) mmol/L Calcium 9.4 (8.4-10.2) mg/dL Total Bilirubin 0.7 (0.2-1.3) mg/dL AST 20 (14-36) IU/L ALT 19 (<35) IU/L Alkaline Phosphatase 57 (38-126) U/L Total Protein 8.1 (6.3-8.2) g/dL Albumin 4.6 (3.5-5.0) g/dL Globulin 3.5 (1.7-4.1) g/dL Albumin/Globulin Ratio 1.3 (1.0-2.8) Lipase 109 D (23-300) U/L Point of care testing: Point of Care Testing Test Results Negative Urine Dip Bedside Urine Glucose Negative Bedside Urine Bilirubin - Negative Bedside Urine Ketone - Negative Urine Specific [place] 1.015 Bedside Urine Occult Blood - Negative Bedside Urine pH 8.0 Bedside Urine Protein - Negative Bedside Urine Urobilinogen - Negative Bedside Urine Nitrite - Negative Bedside Urine Leukocytes - Negative Esterase MDM Narrative Medical decision making narrative: Well appearing patient with persistent RLQ pain. Recent unremarkable workup including pelvic ultrasound and CT of the abdomen and pelvis with contrast. Abdomen is soft but she is tender to palpation in the right lower quadrant, previous history of appendectomy. Patient expressed frustration that this pain can not be resolved and no cause has been found. After shared decision-making with patient decision made for repeat CT scan even after explaining risks of radiation exposure. We will perform angio study to assess mesentery to assess for other causes of right lower quadrant pain. Laboratory work is reviewed, unremarkable. No leukocytosis, no left shift, no change from labs taken previously on 10/14/2023. CT angio of the abdomen and pelvis reviewed, discussed with radiologist, who stated that there may be a subtle finding of chronic inflammation in the right lower quadrant, however he does state that this is ?a soft call? and not definite. Patient resting comfortably in bed, no change in abdominal exam. No peritoneal signs. Again I recommended close follow up with General surgery to discuss if patient may need another lysis of adhesions, however this would be made in discussion with General surgery. Referral provided. Short course of pain medications sent o pharmacy of choice. Discharge Plan Departure Patient Disposition: Home Clinical Impression: Abdominal pain, RLQ Instructions: DI for Abdominal Pain-Adult Prescriptions: New tramadol 50 mg tablet 50 mg PO Q8H PRN (Reason: pain) Qty: 14 0RF No Action topiramate 25 mg tablet 25 mg PO BID nitrofurantoin monohyd/m-cryst [Macrobid] 100 mg capsule 100 mg PO Q12H 5 Days Qty: 10 0RF Rx Instructions: must administer with a meal/food phentermine 37.5 mg tablet 37.5 mg PO DAILY Patient Comments: 1 tablet by mouth every morning BEFORE BREAKFAST alprazolam 0.5 mg tablet 0.5 mg PO BID PRN (Reason: Anxiety) metformin 500 mg tablet extended release 24 hr 500 mg PO DAILY Patient Comments: hasn't started yet, waiting for pharmacy hydrochlorothiazide 12.5 mg tablet 12.5 mg PO DAILY Referrals: Jorge Alberto Spence MD [Physician] - Crow Burgos MD [Primary Care Provider] - Stand Alone Forms: Patient Portal/API
--- NOTE | 2023-10-21 18:31 | DI.CT.S_ITS ---
PROCEDURE: CT ANGIO ABDOMEN PELVIS INDICATIONS: persistent, intractable RLQ abd pain TECHNIQUE: After the administration of intravenous contrast, 2.5 mm sections acquired from the diaphragm to the iliac crests. 10 mm maximum intensity projection (MIP) coronal and sagittal reformats were then performed. For radiation dose reduction, the following was used: automated exposure control. COMPARISON: CT, CT KIDNEY URETER BLADDER (KUB), 05/05/2023, 18:44. [facility], CT, CT ABDOMEN PELVIS W CON, 03/13/2023, 16:37. [facility], CT, CT ABDOMEN PELVIS W CON, 05/17/2023, 11:49. [facility], CT, CT ABDOMEN PELVIS W CON, 10/14/2023, 16:28. FINDINGS: Image quality: Diagnostic. Abdominal aorta: No aortic aneurysm or evidence of acute aortic syndrome. Mesenteric arteries: Patent without hemodynamically significant stenosis. Renal arteries: Patent without hemodynamically significant stenosis. Lower chest: Unremarkable. There is diffuse thickening of the distal esophagus. ABDOMEN: Liver: No solid mass. Gallbladder: Gallbladder is surgically absent. Biliary ducts: No biliary dilation. Pancreas: No ductal dilation. Spleen: Size is within normal limits. There is a 4.8 cm diameter cyst with rim calcification in spleen, unchanged. Adrenal Glands: No adrenal nodules. Kidneys and Ureters: No hydronephrosis. No solid mass. No complex renal cystic lesion which requires follow up. Stomach and Bowel: Postsurgical changes in stomach presumably for gastric bypass. Normal bowel caliber. Question mild colonic wall thickening involving the cecum and ascending colon. Diverticulosis without acute diverticulitis. Peritoneum: No abnormal intraperitoneal fluid. No free air. Ventral Wall: No hernia. Abdominal Nodes: No retroperitoneal or mesenteric adenopathy by size criteria. Vessels: Aorta, as above. Normal IVC. PELVIS: Pelvic Organs: Unremarkable. Bladder: Unremarkable. Pelvic Nodes: No enlarged lymph nodes. Miscellaneous: No inguinal hernias are seen. Bones: No aggressive osseous abnormality. Moderate spondylitic changes in lumbar spine. IMPRESSION: 1. Normal abdominal angiogram. 2. Appendix is absent. There are surgical sutures in cecum. The findings are compatible with prior appendectomy. 3. Question increased submucosal fat content in cecum and ascending colon. The finding suggests chronic inflammatory process such as inflammatory bowel disease. Recommend clinical correlation. 4. Diverticulosis without acute diverticulitis. 5. There is a 2.8 cm cyst in spleen with rim calcifications. It appears unchanged. 6. Mild diffuse esophageal thickening at the gastroesophageal junction. The finding may be secondary distal esophagus or gastroesophageal reflux. Consider nonurgent EGD or esophagram follow-up Dictated by: Claudio Novak M.D. on 10/21/2023 at 19:36 Approved by: Claudio Novak M.D. on 10/21/2023 at 19:44
[2023-10-21 18:47] VITALS: PULSE 76; O2SAT 100
[2023-10-21] MEDS: MORPHINE 4 MG/ML INJ IV (18:48)
[2023-10-21 18:52] VITALS: BP 193/107; PULSE 63; O2SAT 100
[2023-10-21 19:00] VITALS: PULSE 68; O2SAT 100
[2023-10-21 19:01] VITALS: BP 214/91; PULSE 68; O2SAT 100
== END 2023-10-21 20:17 | disposition home or self-care (01) ==
PROVIDERS: Emergency Medicine; Emergency Provider Emergency Medicine; PCP Internal Medicine
DX: R10.31 Right lower quadrant pain (principal)
CPT/HCPCS: 36415; 74174; 80053; 81003; 81025; 83605; 83690; 85025; 96374; 96375; 99284; J2270; J2405

== ENCOUNTER 2023-12-10 09:58 | Emergency (ER) | payer MEDICARE, OTHER, SELFPAY ==
[2023-05-06 00:47] VITALS: BMI 35.2
[2023-12-10] VITALS (20 sets, daily range): BP systolic 111–159; BP diastolic 66–92; PULSE 64–96; RESP 11–33; TEMP 37.1; O2SAT 92–100; BMI 35.7
[2023-12-10 11:06] LABS: Add Manual Diff / Slide Review NO; Basophils Absolute Auto 100 /uL (0-100); Basophils Percent Auto 0.7 % (0-2); Eosinophils Absolute Auto 100 /uL (0-450); Eosinophils Percent Auto 1.2 % (2-4); Hematocrit 38.8 % (36-46); Hemoglobin 12.8 g/dL (12.0-16.0); Lymphocytes Absolute Auto 3600 /uL (1100-4500); Lymphocytes Percent Auto 37.8 % (25-40); Mean Corpuscular Hemoglobin 27.8 PG (26-34); Mean Corpuscular Volume 84.3 fL (80-100); Monocytes Absolute Auto 800 /uL (0-900); Monocytes Percent Auto 8.2 % (3-14); Neutrophils Absolute Auto 5000 /uL (1500-7000); Neutrophils Percent Auto 52.1 % (50-75); Platelet Count 329 X10^3/uL (150-400); Red Cell Distribution Width 14.6 % (11.6-14.8); White Blood Cell Count 9.5 X10^3/uL (4.5-11.0)
[2023-12-10 11:16] LABS: Alanine Aminotransferase 18 IU/L (<35); Albumin 4.4 g/dL (3.5-5.0); Albumin Globulin Ratio 1.4 (1.0-2.8); Alkaline Phosphatase 68 U/L (38-126); Aspartate Aminotransferase 21 IU/L (14-36); Bilirubin Total 1.2 mg/dL (0.2-1.3); Blood Urea Nitrogen 13 mg/dL (7-17); Calcium 9.4 mg/dL (8.4-10.2); Carbon Dioxide 24 mmol/L (22-32); Chloride 109 mmol/L (98-107); Estimated Glomerular Filt Rate > 60 mL/min (>60); Globulin 3.2 g/dL (1.7-4.1); Glucose 92 mg/dL (70-100); HEMOLYSIS < 15 (0-50); Lipase 89 U/L (23-300); Potassium 3.9 mmol/L (3.4-5.1); Sodium 140 mmol/L (137-145); Total Protein 7.6 g/dL (6.3-8.2)
--- NOTE | 2023-12-10 12:54 | ED_ITS ---
HPI - Abdominal Pain General Chief Complaint: Abdominal Pain Stated Complaint: abd pain vommikting headache dizziness Time Seen by Provider: 12/10/23 12:32 Source: patient Mode of arrival: Ambulatory History of Present Illness HPI narrative: Patient here for left lower quadrant pain. Patient states he has chronic right lower quadrant pain but this is new. Has had nausea and vomiting. No urinary complaints. No black or bloody stools. Does not feel like a kidney stone that she has had in the past. is driving. Related Data Home Medications Medication Instructions Recorded Confirmed phentermine 37.5 mg tablet 37.5 mg PO DAILY 10/28/22 10/30/23 alprazolam 0.5 mg tablet 0.5 mg PO BID PRN Anxiety 05/06/23 10/30/23 hydrochlorothiazide 12.5 mg tablet 12.5 mg PO DAILY 05/06/23 10/30/23 metformin 500 mg tablet,extended 500 mg PO DAILY 05/06/23 10/30/23 release 24 hr topiramate 25 mg tablet 25 mg PO BID 10/14/23 10/30/23 Previous Rx's Medication Instructions Recorded tramadol 50 mg tablet 50 mg PO Q8H PRN pain #14 tabs 10/21/23 hydrocodone 5 mg-acetaminophen 325 1 tab PO Q6H PRN pain #12 tabs 12/10/23 mg tablet ondansetron 4 mg disintegrating 4 mg PO Q8H PRN nausea and 12/10/23 tablet vomiting #10 tabs Allergies Allergy/AdvReac Type Severity Reaction Status Date / Time benzonatate Allergy Unknown Hives Verified 10/30/23 09:50 [From Ezekiel Dhaliwal] gluten Allergy Verified 10/30/23 09:50 coconut AdvReac Intermediate Hives Verified 10/30/23 09:50 NSAIDS (Non-Steroidal AdvReac Mild Gastrointestinal Verified 10/30/23 09:50 Anti-Inflamma Upset escitalopram [From Lexapro] AdvReac Unknown Hallucinati Verified 10/30/23 09:50 ng Review of Systems Review of Systems Narrative: GENERAL: negative chills, fatigue, malaise, fever, sweats. HEENT: negative sinus pain, ear pain, sore throat RESPIRATORY: negative dyspnea, cough CARDIOVASCULAR: negative chest pain, palpitations GASTROINTESTINAL: Positive nausea, vomiting, abdominal pain : negative dysuria, frequency, hematuria MUSCULOSKELETAL: negative muscle or bony pain SKIN: negative rash, skin lesions NEUROLOGIC: negative weakness, numbness ROS Unobtainable: All systems reviewed & are unremarkable except as noted in HPI and below Patient History Medical History Polycystic ovary disease Celiac disease GERD with apnea Hypertension Bipolar disorder Surgical History Status post tubal ligation History of section H/O abdominoplasty H/O oophorectomy H/O gastric sleeve History of cholecystectomy History of appendectomy Social History marital status: household members: significant other and children lives independently: Yes occupational status: employed Smoking Status: Never smoker alcohol intake: current substance use type: marijuana Smoking Status: Never smoker alcohol intake frequency: holidays/special occasions only Substance Use Type: marijuana Exam Narrative Exam Narrative: GENERAL: in no distress, not toxic not dyspneic HEAD: Normocephalic. EYES: Pupils equal round ENT: Mucous membranes moist. NECK: Trachea midline. CARDIOVASCULAR: Regular rate and rhythm RESPIRATORY: Clear to auscultation. Breath sounds equal bilaterally. No wheezes, rales, or rhonchi. GASTROINTESTINAL: Abdomen soft, no CVA tenderness. Reproducible left lower quadrant, no peritoneal signs. No pain out of proportion to exam. Bowel sounds are present. No CVA tenderness EXTREMITIES: No gross deformities. BACK: No flank tenderness. NEURO: AOx4. SKIN: Warm and dry PSYCH: Not anxious, is cooperative Initial Vital Signs Initial Vital Signs: Vital Signs Pulse Rate 82 12/10/23 10:27 Respiratory Rate 22 12/10/23 10:27 Course Orders Ordered: Discontinued Medications Hydromorphone HCl (Hydromorphone 1 Mg Inj) 1 mg IV NOW ONE Stop: 12/10/23 12:55 Last Admin: 12/10/23 13:11 Dose: 1 mg Documented By: MAN Sodium Chloride (Normal Saline 0.9%) 1,000 mls @ 1,000 mls/hr IV BOLUS ONE Stop: 12/10/23 13:53 Last Infusion: 12/10/23 13:51 Dose: Infused Documented By: Admin: 12/10/23 13:11 Dose: 1,000 mls/hr Documented By: MAN Ondansetron HCl (Ondansetron 4 Mg Odt) 4 mg PO NOW PRN PRN Reason: Nausea And Vomiting Ondansetron HCl (Ondansetron 4 Mg/2 Ml Inj) 4 mg IV NOW PRN PRN Reason: Nausea And Vomiting Last Admin: 12/10/23 13:11 Dose: 4 mg Documented By: MAN Vital Signs Vital signs: Vital Signs - 8 hr 12/10/23 10:27 12/10/23 10:29 12/10/23 10:29 Temperature Pulse Rate 82 82 Respiratory Rate 22 16 Blood Pressure 135/83 Pulse Oximetry 99 Oxygen Delivery Method 12/10/23 10:30 12/10/23 10:31 12/10/23 10:31 Temperature Pulse Rate 96 H 72 Respiratory Rate 18 21 Blood Pressure 111/81 Pulse Oximetry 100 99 Oxygen Delivery Method 12/10/23 10:37 12/10/23 11:02 12/10/23 11:04 Temperature 98.7 F Pulse Rate 71 66 Respiratory Rate 20 Blood Pressure 111/81 159/73 H Pulse Oximetry 99 100 Oxygen Delivery Method Room Air 12/10/23 11:04 12/10/23 11:30 12/10/23 11:31 Temperature Pulse Rate 83 81 90 Respiratory Rate 22 25 H 20 Blood Pressure Pulse Oximetry 100 92 100 Oxygen Delivery Method 12/10/23 11:31 12/10/23 12:00 Temperature Pulse Rate 90 Respiratory Rate 24 Blood Pressure 121/75 Pulse Oximetry 100 Oxygen Delivery Method MDM - Abdominal Pain Lab Data 12/10/23 10:57 12/10/23 10:57 Labs: Lab Results 12/10/23 Range/Units 10:57 WBC 9.5 (4.5-11.0) X10^3/uL RBC 4.60 (4.0-5.2) X10^6/uL Hgb 12.8 (12.0-16.0) g/dL Hct 38.8 (36-46) % MCV 84.3 (80-100) fL MCH 27.8 (26-34) PG MCHC 33.0 (30-36) % RDW 14.6 (11.6-14.8) % Plt Count 329 (150-400) X10^3/uL Neut % (Auto) 52.1 (50-75) % Lymph % (Auto) 37.8 (25-40) % [place] % (Auto) 8.2 (3-14) % Eos % (Auto) 1.2 L (2-4) % Baso % (Auto) 0.7 (0-2) % Neut # (Auto) 5000 (5762-1395) /uL Lymph # (Auto) 3600 (9035-6665) /uL [place] # (Auto) 800 (0-900) /uL Eos # (Auto) 100 (0-450) /uL Baso # (Auto) 100 (0-100) /uL Sodium 140 (137-145) mmol/L Potassium 3.9 (3.4-5.1) mmol/L Chloride 109 H (98-107) mmol/L Carbon Dioxide 24 (22-32) mmol/L BUN 13 (7-17) mg/dL Creatinine 0.65 (0.52-1.04) mg/dL Estimated GFR > 60 (>60) mL/min BUN/Creatinine Ratio 20.0 (6-22) Glucose 92 (70-100) mg/dL Calcium 9.4 (8.4-10.2) mg/dL Total Bilirubin 1.2 (0.2-1.3) mg/dL AST 21 (14-36) IU/L ALT 18 (<35) IU/L Alkaline Phosphatase 68 (38-126) U/L Total Protein 7.6 (6.3-8.2) g/dL Albumin 4.4 (3.5-5.0) g/dL Globulin 3.2 (1.7-4.1) g/dL Albumin/Globulin Ratio 1.4 (1.0-2.8) Lipase 89 (23-300) U/L Point of care testing: Point of Care Testing Test Results Negative Urine Dip Bedside Urine Glucose Negative Bedside Urine Bilirubin - Negative Bedside Urine Ketone - Negative Urine Specific [place] 1.025 Bedside Urine Occult Blood - Negative Bedside Urine pH 6.0 Bedside Urine Protein - Negative Bedside Urine Urobilinogen - Negative Bedside Urine Nitrite - Negative Bedside Urine Leukocytes - Negative Esterase Imaging Data CT scan - abdomen/pelvis: Radiologist's Impression: [address] [address] [address] Scan Report Signed Patient: Janet Capellan MR#: [id number] : 1980 Acct:[id number] Age/Sex: 42 / F Date of Service: 12/10/23 Loc: ED Accession Number: [id number] Procedure: CT abdomen pelvis w con Ordering Provider: Nash Desir MD PROCEDURE: CT ABDOMEN PELVIS W CON INDICATIONS: IV contrast only/left lower quadrant pain TECHNIQUE: After the administration of intravenous contrast, axial sections acquired from the lung bases to the pubic symphysis. Coronal and sagittal reformats were performed. For radiation dose reduction, the following was used: automated exposure control, adjustment of mA and/or kV according to patient size. COMPARISON: [facility], CT, CT ABDOMEN PELVIS W CON, 10/14/2023, 16:28. FINDINGS: Image quality: Diagnostic. Lower Chest: No significant findings. ABDOMEN: Liver: No solid mass. Gallbladder: Surgically absent. Biliary ducts: No biliary dilation. Pancreas: No ductal dilation. Spleen: Size is within normal limits. Cystic lesion within the spleen with wall calcifications is unchanged. Adrenal Glands: No adrenal nodules. Kidneys and Ureters: No hydronephrosis. No solid mass. No complex renal cystic lesion which requires follow up. Stomach and Bowel: Small hiatal hernia. Sleeve gastrectomy. Normal colonic caliber, without significant wall thickening. Diverticulosis without evidence of acute diverticulitis. Status post appendectomy. Peritoneum: No abnormal intraperitoneal fluid. No free air. Ventral Wall: No significant ventral hernia. Abdominal Nodes: No retroperitoneal or mesenteric adenopathy by size criteria. Vessels: Aorta and inferior vena cava are normal in size. PELVIS: Pelvic Organs: Hysterectomy. Bladder: No bladder wall thickening, accounting for underdistention. Pelvic Nodes: No enlarged lymph nodes. Miscellaneous: No inguinal hernias are seen. Bones: No aggressive osseous abnormality. Mild degenerative changes of the spine. IMPRESSION: 1. No cause for patient's pain is identified. 2. Diverticulosis without evidence of acute diverticulitis. 3. Additional stable chronic findings as described above. Dictated by: Hamzah Acevedo M.D. on 12/10/2023 at 13:42 Approved by: Hamzah Acevedo M.D. on 12/10/2023 at 13:46 MDM Narrative Medical decision making narrative: Patient here for left lower quadrant pain. Patient states he has chronic right lower quadrant pain but this is new. Has had nausea and vomiting. No urinary complaints. No black or bloody stools. Does not feel like a kidney stone that she has had in the past. is driving. After history and exam CBC CMP urinalysis CT abdomen pelvis Dilaudid Zofran normal saline test [facility] Medical records reviewed: No recent visit for this complaint Differential considered: Includes but not limited to diverticulitis bowel obstruction UTI pyelonephritis Lab Test results independently reviewed as above. Pertinent findings: WBC 9.5 AST 21 ALT 18 urinalysis negative leukocytes negative nitrite Imaging studies independently reviewed: CT abdomen pelvis no acute finding Consultations: None indicated this time Treatments: Zofran Dilaudid normal saline Re-evaluations: 2:38 p.m.. Patient feeling much better. 90% better with the pain. She has reviewed with me that her general surgeon Dr. Spence states no more surgeries due to adhesions. Her primary care is setting her up for gabapentin and pain management but that has not happened yet. We did agree for short course of pain medications here. Exam and laboratory studies imaging studies are reassuring. 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 Discussion: Appropriate for discharge home. Exam is reassuring as well as laboratory studies and images. Patient has history of left ovarian torsion which was removed. No signs of sepsis here. Blood work and urinalysis are reassuring as well. Return precautions reviewed. She desires discharge home. Work note and short course of pain medication provided. Diagnosis: Abdominal pain Discharge Plan Departure Patient Disposition: Home Clinical Impression: Abdominal pain Qualifiers: Abdominal location: left lower quadrant Qualified Code(s): R10.32 - Left lower quadrant pain Instructions: DI for Abdominal Pain-Adult Activity Restrictions/Additional Instructions: No driving or operating machinery today or when taking prescribed pain medication. See your family doctor for review of pain management referral. Please see your general surgeon as well to update today's visit. Return if worse if any questions or concerns. Prescriptions: New hydrocodone-acetaminophen 5-325 mg tablet 1 tab PO Q6H PRN (Reason: pain) Qty: 12 0RF ondansetron 4 mg tablet,disintegrating 4 mg PO Q8H PRN (Reason: nausea and vomiting) Qty: 10 0RF No Action topiramate 25 mg tablet 25 mg PO BID phentermine 37.5 mg tablet 37.5 mg PO DAILY Patient Comments: 1 tablet by mouth every morning BEFORE BREAKFAST tramadol 50 mg tablet 50 mg PO Q8H PRN (Reason: pain) Qty: 14 0RF alprazolam 0.5 mg tablet 0.5 mg PO BID PRN (Reason: Anxiety) metformin 500 mg tablet extended release 24 hr 500 mg PO DAILY Patient Comments: hasn't started yet, waiting for pharmacy hydrochlorothiazide 12.5 mg tablet 12.5 mg PO DAILY Referrals: Crow Burgos MD [Primary Care Provider] - Stand Alone Forms: Patient Portal/API, Work Release Note
[2023-12-10] MEDS: SODIUM CHLORIDE 0.9% 1,000 ML 1000 ML IV (13:11)
[2023-12-10] MEDS: ONDANSETRON 4 MG/2 ML INJ IV (13:11)
[2023-12-10] MEDS: HYDROMORPHONE 1 MG INJ IV (13:11)
== END 2023-12-10 14:53 | disposition home or self-care (01) ==
PROVIDERS: Emergency Provider Emergency Medicine; PCP Internal Medicine
DX: R10.32 Left lower quadrant pain (principal); R11.2 Nausea with vomiting, unspecified
CPT/HCPCS: 36415; 74177; 80053; 81003; 81025; 83690; 85025; 96361; 96374; 96375; 99284; J1170; J2405; Q9967

== ENCOUNTER → 2024-01-20 18:05 | Outpatient (CLI) | payer MEDICARE, SELFPAY ==
[2023-05-06 00:47] VITALS: BMI 35.2
== END ==
PROVIDERS: PCP Internal Medicine; Visit Provider Nurse Practitioner Family
DX: R35.0 Frequency of micturition (principal); R30.0 Dysuria
CPT/HCPCS: 87077; 87086

== ENCOUNTER 2024-01-26 18:57 | Emergency (ER) | payer MEDICARE, SELFPAY ==
[2023-05-06 00:47] VITALS: BMI 35.2
[2024-01-26] VITALS (17 sets, daily range): BP systolic 144–187; BP diastolic 84–114; PULSE 73–105; RESP 18; TEMP 36.3; O2SAT 95–99; BMI 33.0
--- NOTE | 2024-01-26 19:27 | ED.BACK ---
HPI - Back Pain/Injury General Chief Complaint: Back Pain/Injury Stated Complaint: lower rt back px Time Seen by Provider: 01/26/24 19:27 Source: patient History of Present Illness HPI Narrative: 43-year-old female with history of prior remote cholecystectomy, appendectomy, hysterectomy, now day 6 of oral cefdinir antibiotic from urinary tract infection diagnosed in local clinic, dysuria and frequency of urination seems to be better since starting the antibiotic, now with increasing right-sided flank pain through the day today, nausea without emesis. She had loose stool earlier today that was not black or red in color. No vaginal bleeding. No injury trauma new activities. Denies cough or shortness of breath chest pain. No anterior abdominal discomfort upper or lower, no anterior abdominal pain right or left. Related Data Home Medications Medication Instructions Recorded Confirmed phentermine 37.5 mg tablet 37.5 mg PO DAILY 10/28/22 01/20/24 alprazolam 0.5 mg tablet 0.5 mg PO BID PRN Anxiety 05/06/23 01/20/24 hydrochlorothiazide 12.5 mg tablet 12.5 mg PO DAILY 05/06/23 01/20/24 metformin 500 mg tablet,extended 500 mg PO DAILY 05/06/23 01/20/24 release 24 hr topiramate 25 mg tablet 25 mg PO BID 10/14/23 01/20/24 Previous Rx's Medication Instructions Recorded tramadol 50 mg tablet 50 mg PO Q8H PRN pain #14 tabs 10/21/23 hydrocodone 5 mg-acetaminophen 325 1 tab PO Q6H PRN pain #12 tabs 12/10/23 mg tablet ondansetron 4 mg disintegrating 4 mg PO Q8H PRN nausea and 12/10/23 tablet vomiting #10 tabs cefdinir 300 mg capsule 300 mg PO BID #14 caps 01/20/24 phenazopyridine 200 mg tablet 200 mg PO TID 6 doses #6 tabs 01/20/24 (Pyridium) methocarbamol 500 mg tablet 500 mg PO TID 7 days #21 tabs 01/26/24 naproxen 500 mg tablet 500 mg PO BID 7 days #14 tabs 01/26/24 Allergies Allergy/AdvReac Type Severity Reaction Status Date / Time gluten Allergy Celiac Verified 01/26/24 18:59 coconut AdvReac Intermediate Hives Verified 01/26/24 18:59 NSAIDS (Non-Steroidal AdvReac Mild Gastrointestinal Verified 01/26/24 18:59 Anti-Inflamma Upset benzonatate AdvReac Unknown Hives Verified 01/26/24 18:59 [From Tessalon Perles] escitalopram [From Lexapro] AdvReac Unknown Hallucinati Verified 01/26/24 18:59 ng Review of Systems Review of Systems ROS Unobtainable: All systems reviewed & are unremarkable except as noted in HPI and below Patient History Medical History Polycystic ovary disease Celiac disease GERD with apnea Hypertension Bipolar disorder Surgical History Status post tubal ligation History of section H/O abdominoplasty H/O oophorectomy H/O gastric sleeve History of cholecystectomy History of appendectomy Social History marital status: household members: significant other and children lives independently: Yes occupational status: employed Smoking Status: Never smoker alcohol intake: current substance use type: marijuana Smoking Status: Never smoker alcohol intake frequency: holidays/special occasions only Substance Use Type: marijuana Exam Narrative Exam Narrative: GENERAL: Well-developed patient, in moderate distress due to right flank pain. HEAD: Atraumatic. Normocephalic. EYES: Pupils equal round and reactive. Extraocular motions intact. No scleral icterus. No injection or drainage. ENT: Nose without bleeding, purulent drainage. Throat without erythema, tonsillar hypertrophy or exudate. Airway patent. NECK: Trachea midline. Non tender CARDIOVASCULAR: Regular rate and rhythm without murmurs, gallops, or rubs. RESPIRATORY: Clear to auscultation. Breath sounds equal bilaterally. No wheezes, rales, or rhonchi. GASTROINTESTINAL: Abdomen soft, non-tender, nondistended. EXTREMITIES: No edema or joint tenderness. BACK: Nontender without deformity or crepitance. She has tenderness to percussion right flank, no tenderness left flank percussion. No skin changes rashes or vesicles. NEURO: AOx3. SKIN: No rash or erythema of visible areas Initial Vital Signs Initial Vital Signs: Vital Signs Temperature 97.3 F L 01/26/24 18:59 Pulse Rate 73 01/26/24 18:59 Respiratory Rate 18 01/26/24 18:59 Blood Pressure 158/84 H 01/26/24 18:59 Pulse Oximetry 99 01/26/24 18:59 Oxygen Delivery Method Room Air 01/26/24 18:59 Course Orders Ordered: ED Orders 01/26/24 19:09 Urinalysis and Microscopic Stat 01/26/24 19:19 Complete Blood Count AUTO DIFF Stat Comprehensive Metabolic Panel Stat Lactate (Lactic Acid) Stat Lipase Stat 01/26/24 19:38 CT abdomen pelvis w con Stat Discontinued Medications Diazepam (Diazepam 10 Mg/2 Ml Syringe) 5 mg IV NOW ONE Stop: 01/26/24 21:12 Last Admin: 01/26/24 21:41 Dose: 5 mg Documented By: NICOLAS Hydromorphone HCl (Hydromorphone 1 Mg Inj) 1 mg IV NOW ONE Stop: 01/26/24 19:37 Last Admin: 01/26/24 19:43 Dose: 1 mg Documented By: NICOLAS Hydromorphone HCl (Hydromorphone 1 Mg Inj) 1 mg IV NOW ONE Stop: 01/26/24 23:29 Last Admin: 01/26/24 23:51 Dose: 1 mg Documented By: NICOLAS Sodium Chloride (Normal Saline 0.9%) 1,000 mls @ 1,000 mls/hr IV BOLUS ONE Stop: 01/26/24 20:38 Last Infusion: 01/26/24 23:18 Dose: Infused Documented By: Admin: 01/26/24 19:45 Dose: 1,000 mls/hr Documented By: NICOLAS Ketorolac Tromethamine (Ketorolac 30 Mg/Ml Vial) 15 mg IV NOW ONE Stop: 01/26/24 21:10 Last Admin: 01/26/24 21:39 Dose: 15 mg Documented By: NICOLAS Ondansetron HCl (Ondansetron 4 Mg Odt) 4 mg PO NOW PRN PRN Reason: Nausea And Vomiting Ondansetron HCl (Ondansetron 4 Mg/2 Ml Inj) 4 mg IV NOW PRN PRN Reason: Nausea And Vomiting Last Admin: 01/26/24 19:31 Dose: 4 mg Documented By: NICOLAS Tramadol HCl (Tramadol 50 Mg Prepack) 1 bottle MISC DIRECTED ONE Stop: 01/26/24 22:27 Last Admin: 01/26/24 23:52 Dose: 1 bottle Documented By: NICOLAS Vital Signs Vital signs: Vital Signs - 8 hr 01/26/24 19:30 01/26/24 20:21 01/26/24 20:22 Pulse Rate 83 Blood Pressure 151/106 H Pulse Oximetry 99 95 Oxygen Delivery Method 01/26/24 20:22 01/26/24 20:25 01/26/24 20:25 Pulse Rate 81 81 Blood Pressure 144/93 H Pulse Oximetry 97 98 Oxygen Delivery Method 01/26/24 20:30 01/26/24 20:31 01/26/24 20:31 Pulse Rate 86 88 Blood Pressure 164/88 H Pulse Oximetry 97 97 Oxygen Delivery Method 01/26/24 21:00 01/26/24 21:01 01/26/24 21:01 Pulse Rate 105 H 101 H Blood Pressure 151/114 H Pulse Oximetry 98 98 Oxygen Delivery Method 01/26/24 21:30 01/26/24 21:31 01/26/24 21:31 Pulse Rate 86 86 Blood Pressure 156/108 H Pulse Oximetry 97 97 Oxygen Delivery Method 01/26/24 22:00 01/26/24 22:00 01/26/24 22:30 Pulse Rate 95 H 103 H Blood Pressure 158/114 H Pulse Oximetry 97 96 Oxygen Delivery Method Room Air 01/26/24 23:00 01/26/24 23:01 01/26/24 23:01 Pulse Rate 86 82 Blood Pressure 186/110 H Pulse Oximetry 96 99 Oxygen Delivery Method 01/27/24 00:00 01/27/24 00:01 01/27/24 00:01 Pulse Rate 91 H Blood Pressure 144/71 H Pulse Oximetry 98 97 Oxygen Delivery Method MDM - Back Pain/Injury Lab Data 01/26/24 19:19 01/26/24 19:19 Labs: Lab Results 01/26/24 01/26/24 Range/Units 19:09 19:19 WBC 12.2 H (4.5-11.0) X10^3/uL RBC 4.50 (4.0-5.2) X10^6/uL Hgb 12.5 (12.0-16.0) g/dL Hct 37.8 (36-46) % MCV 83.9 (80-100) fL MCH 27.8 (26-34) PG MCHC 33.1 (30-36) % RDW 14.0 (11.6-14.8) % Plt Count 329 (150-400) X10^3/uL Neut % (Auto) 54.7 (50-75) % Lymph % (Auto) 35.4 (25-40) % [place] % (Auto) 7.3 (3-14) % Eos % (Auto) 1.8 L (2-4) % Baso % (Auto) 0.8 (0-2) % Neut # (Auto) 6700 (8297-6764) /uL Lymph # (Auto) 4300 (1533-1977) /uL [place] # (Auto) 900 (0-900) /uL Eos # (Auto) 200 (0-450) /uL Baso # (Auto) 100 (0-100) /uL Sodium 141 (137-145) mmol/L Potassium 4.0 (3.4-5.1) mmol/L Chloride 106 (98-107) mmol/L Carbon Dioxide 29 (22-32) mmol/L BUN 9 (7-17) mg/dL Creatinine 0.51 L (0.52-1.04) mg/dL Estimated GFR > 60 (>60) mL/min BUN/Creatinine Ratio 17.6 (6-22) Glucose 97 (70-100) mg/dL Lactate 1.4 (0.7-2.1) mmol/L Calcium 9.2 (8.4-10.2) mg/dL Total Bilirubin 0.7 (0.2-1.3) mg/dL AST 23 (14-36) IU/L ALT 23 (<35) IU/L Alkaline Phosphatase 63 (38-126) U/L Total Protein 7.5 (6.3-8.2) g/dL Albumin 4.7 (3.5-5.0) g/dL Globulin 2.8 (1.7-4.1) g/dL Albumin/Globulin Ratio 1.7 (1.0-2.8) Lipase 132 (23-300) U/L Urine Color Yellow Urine Appearance Clear Urine pH 6.0 (4.5-8.0) Ur Specific [place] <=1.005 (1.000-1.035) Urine Protein Negative (Negative) Urine Glucose (UA) Negative (Negative) g/dL Urine Ketones Negative (NEGATIVE) Urine Occult Blood Trace-intact (Negative) Urine Nitrate Negative (Negative) Urine Bilirubin Negative (NEGATIVE) Urine Urobilinogen 0.2 (0.2) E.U./dL Ur Leukocyte Esterase Negative (NEGATIVE) Urine RBC None seen (0-5/HPF) Urine WBC None seen (0-5/HPF) Ur Squamous Epith Cells 1-5 /hpf (0-5/HPF) Urine Bacteria Few (2-10) H (None) Ur Culture Indicated? Cult not indicated Vol Urine Centrifuged 10ml (spun) Urine Dip Bedside Urine Glucose Negative Bedside Urine Bilirubin - Negative Bedside Urine Ketone - Negative Urine Specific [place] 1.02 Bedside Urine Occult Blood +/- Bedside Urine pH 5.5 Bedside Urine Protein - Negative Bedside Urine Urobilinogen - Negative Bedside Urine Nitrite - Negative Bedside Urine Leukocytes - Negative Esterase Imaging Data CT scan - abdomen/pelvis: Radiologist's Impression: [address] [address] [address] Scan Report Signed Patient: Janet Ibarra MR#: [id number] : 1980 Acct:[id number] Age/Sex: 43 / F Date of Service: 01/26/24 Loc: ED Accession Number: [id number] Procedure: CT abdomen pelvis w con Ordering Provider: Nathan Dickerson MD PROCEDURE: CT ABDOMEN PELVIS W CON INDICATIONS: right flank pain, d6 abx UTI, prior hyst/chol/appy TECHNIQUE: After the administration of intravenous contrast, axial sections acquired from the lung bases to the pubic symphysis. Coronal and sagittal reformats were performed. For radiation dose reduction, the following was used: automated exposure control, adjustment of mA and/or kV according to patient size. COMPARISON: [facility], CT, CT ABDOMEN PELVIS W CON, 12/10/2023, 13:09. FINDINGS: Image quality: Diagnostic. Lower Chest: Small hiatal hernia. Clear lungs. Normal size heart. ABDOMEN: Liver: Mild hepatomegaly. Fat deposition adjacent to the falciform ligament. Gallbladder: Surgically absent. Biliary ducts: Appropriate biliary tree caliber post cholecystectomy. Pancreas: No ductal dilation. Spleen: 5.1 cm cyst with occasional mural calcification is stable. Adrenal Glands: No adrenal nodules. Kidneys and Ureters: Symmetric enhancement. No nephrolithiasis or hydronephrosis. No hydroureter. No ureteral stones. No periureteric inflammation. Stomach and Bowel: Gastric sleeve creation. Small bowel loops are unremarkable. Surgically absent appendix. Normal colon. Occasional colonic diverticula. Peritoneum: No abnormal intraperitoneal fluid. No free air. Ventral Wall: No significant ventral hernia. Abdominal Nodes: No retroperitoneal or mesenteric adenopathy by size criteria. Vessels: Aorta and inferior vena cava are normal in size. PELVIS: Pelvic Organs: The uterus is surgically absent. Right ovarian tissue appears normal. Left ovarian tissue is not well seen. Bladder: Normal without wall thickening or stones. Pelvic Nodes: No enlarged lymph nodes. Miscellaneous: No inguinal hernias are seen. Bones: No aggressive osseous abnormality. IMPRESSION: No evidence of pyelonephritis or nephrolithiasis. No CT evidence convincing for cystitis. No acute process. Chronic findings as above. Dictated by: Jamee Marcano M.D. on 01/26/2024 at 20:42 Approved by: Jamee Marcano M.D. on 01/26/2024 at 20:49 MDM Narrative Medical decision making narrative: Right-sided flank pain now day 6 oral cefdinir antibiotic, urinary tract infection diagnosis in clinic, some nausea no vomiting, no injury or trauma. Previous hysterectomy, cholecystectomy, appendectomy, some lysis of adhesions in the past, loose stool earlier today without black or red color. CT abdomen and pelvis ordered to evaluate for complicated UTI/pyelo, or obstructing stone, versus alternate diagnosis non urinary Records review, microbiology 01/20/2024, urine culture E coli [id number] colonies, pansensitive including cephalosporins. CT abdomen and pelvis no acute changes obvious. Urinalysis unremarkable. Consider musculoskeletal cause of pain. IV Toradol. Add IV Valium for muscle relaxation Patient still having pain, IV Dilaudid. Symptoms improved. Discharge with prepack tramadol. Encouraged to complete her course of cefdinir antibiotic. Discharged home, follow up with PCP, return precautions Critical Care Time Critical Care Time Critical Care Time: Yes Total Critical Care Time: 31 Attestation: The high probability of a clinically significant, sudden or life threatening deterioration of the [abdominal pelvic, cardiopulmonary, genitourinary, urologic] system(s) required my full and direct attention, intervention and personal management. The aggregate critical care time was [35] minutes. This time is in addition to time spent performing reported procedures but includes the following: [x] Data Review and interpretation [x] Patient assessment and monitoring of vital signs [x] Documentation [x] Medication orders and management Discharge Plan Departure Patient Disposition: Home Clinical Impression: Right flank pain Activity Restrictions/Additional Instructions: Right-sided flank pain. Currently taking oral cefdinir antibiotic for possible urine infection. Prior history of remote gallbladder surgery, appendectomy, hysterectomy. CT scanning tonight of abdomen and pelvis showed no acute changes. Urinalysis look pretty clear tonight. Continue taking your oral cefdinir antibiotic. It is possible you might be having some other cause such as a musculoskeletal cause of your discomfort. No cause was identified by imaging and labs tonight. Trial of muscle relaxant and anti-inflammatory medication. Prescription for naproxen sent to your pharmacy. Prescription for Robaxin muscle relaxant sent to your pharmacy. Continue taking your cefdinir medication. Recheck symptoms with your regular provider in the next couple of days. Return to this/nearest emergency department for any change worsening symptoms or any concerns prior Prescriptions: New naproxen 500 mg tablet 500 mg PO BID 7 Days Qty: 14 0RF methocarbamol 500 mg tablet 500 mg PO TID 7 Days Qty: 21 0RF No Action cefdinir 300 mg capsule 300 mg PO BID Qty: 14 0RF phenazopyridine [Pyridium] 200 mg tablet 200 mg PO TID 0 Days Qty: 6 0RF topiramate 25 mg tablet 25 mg PO BID phentermine 37.5 mg tablet 37.5 mg PO DAILY Patient Comments: 1 tablet by mouth every morning BEFORE BREAKFAST tramadol 50 mg tablet 50 mg PO Q8H PRN (Reason: pain) Qty: 14 0RF hydrocodone-acetaminophen 5-325 mg tablet 1 tab PO Q6H PRN (Reason: pain) Qty: 12 0RF ondansetron 4 mg tablet,disintegrating 4 mg PO Q8H PRN (Reason: nausea and vomiting) Qty: 10 0RF alprazolam 0.5 mg tablet 0.5 mg PO BID PRN (Reason: Anxiety) metformin 500 mg tablet extended release 24 hr 500 mg PO DAILY Patient Comments: hasn't started yet, waiting for pharmacy hydrochlorothiazide 12.5 mg tablet 12.5 mg PO DAILY Referrals: Crow Burgos MD [Primary Care Provider] - Stand Alone Forms: Patient Portal/API
[2024-01-26] MEDS: ONDANSETRON 4 MG/2 ML INJ IV (19:31)
[2024-01-26 19:32] LABS: Add Manual Diff / Slide Review NO; Basophils Absolute Auto 100 /uL (0-100); Basophils Percent Auto 0.8 % (0-2); Eosinophils Absolute Auto 200 /uL (0-450); Eosinophils Percent Auto 1.8 % (2-4); Hematocrit 37.8 % (36-46); Hemoglobin 12.5 g/dL (12.0-16.0); Lymphocytes Absolute Auto 4300 /uL (1100-4500); Lymphocytes Percent Auto 35.4 % (25-40); Mean Corpuscular HGB Conc 33.1 % (30-36); Mean Corpuscular Hemoglobin 27.8 PG (26-34); Mean Corpuscular Volume 83.9 fL (80-100); Monocytes Absolute Auto 900 /uL (0-900); Monocytes Percent Auto 7.3 % (3-14); Neutrophils Absolute Auto 6700 /uL (1500-7000); Neutrophils Percent Auto 54.7 % (50-75); Platelet Count 329 X10^3/uL (150-400); White Blood Cell Count 12.2 X10^3/uL (4.5-11.0)
--- NOTE | 2024-01-26 19:38 | DI.CT.S_ITS ---
PROCEDURE: CT ABDOMEN PELVIS W CON INDICATIONS: right flank pain, d6 abx UTI, prior hyst/chol/appy TECHNIQUE: After the administration of intravenous contrast, axial sections acquired from the lung bases to the pubic symphysis. Coronal and sagittal reformats were performed. For radiation dose reduction, the following was used: automated exposure control, adjustment of mA and/or kV according to patient size. COMPARISON: [facility], CT, CT ABDOMEN PELVIS W CON, 12/10/2023, 13:09. FINDINGS: Image quality: Diagnostic. Lower Chest: Small hiatal hernia. Clear lungs. Normal size heart. ABDOMEN: Liver: Mild hepatomegaly. Fat deposition adjacent to the falciform ligament. Gallbladder: Surgically absent. Biliary ducts: Appropriate biliary tree caliber post cholecystectomy. Pancreas: No ductal dilation. Spleen: 5.1 cm cyst with occasional mural calcification is stable. Adrenal Glands: No adrenal nodules. Kidneys and Ureters: Symmetric enhancement. No nephrolithiasis or hydronephrosis. No hydroureter. No ureteral stones. No periureteric inflammation. Stomach and Bowel: Gastric sleeve creation. Small bowel loops are unremarkable. Surgically absent appendix. Normal colon. Occasional colonic diverticula. Peritoneum: No abnormal intraperitoneal fluid. No free air. Ventral Wall: No significant ventral hernia. Abdominal Nodes: No retroperitoneal or mesenteric adenopathy by size criteria. Vessels: Aorta and inferior vena cava are normal in size. PELVIS: Pelvic Organs: The uterus is surgically absent. Right ovarian tissue appears normal. Left ovarian tissue is not well seen. Bladder: Normal without wall thickening or stones. Pelvic Nodes: No enlarged lymph nodes. Miscellaneous: No inguinal hernias are seen. Bones: No aggressive osseous abnormality. IMPRESSION: No evidence of pyelonephritis or nephrolithiasis. No CT evidence convincing for cystitis. No acute process. Chronic findings as above. Dictated by: Jamee Marcano M.D. on 01/26/2024 at 20:42 Approved by: Jamee Marcano M.D. on 01/26/2024 at 20:49
[2024-01-26 19:43] LABS: Alanine Aminotransferase 23 IU/L (<35); Albumin 4.7 g/dL (3.5-5.0); Albumin Globulin Ratio 1.7 (1.0-2.8); Alkaline Phosphatase 63 U/L (38-126); Aspartate Aminotransferase 23 IU/L (14-36); BUN Creatinine Ratio 17.6 (6-22); Bilirubin Total 0.7 mg/dL (0.2-1.3); Blood Urea Nitrogen 9 mg/dL (7-17); Calcium 9.2 mg/dL (8.4-10.2); Carbon Dioxide 29 mmol/L (22-32); Chloride 106 mmol/L (98-107); Estimated Glomerular Filt Rate > 60 mL/min (>60); Globulin 2.8 g/dL (1.7-4.1); Glucose 97 mg/dL (70-100); HEMOLYSIS 15 (0-50); Lipase 132 U/L (23-300); Sodium 141 mmol/L (137-145); Total Protein 7.5 g/dL (6.3-8.2)
[2024-01-26] MEDS: HYDROMORPHONE 1 MG INJ IV ×2 (19:43→23:51)
[2024-01-26] MEDS: SODIUM CHLORIDE 0.9% 1,000 ML 1000 ML IV (19:45)
[2024-01-26 19:56] LABS: Lactate (Lactic Acid) 1.4 mmol/L (0.7-2.1)
[2024-01-26 20:45] LABS: Appearance Urine UA CLEAR; Bilirubin Urine UA NEGATIVE (NEGATIVE); Color Urine UA YELLOW; Glucose Urine UA NEGATIVE (Negative); Ketones Urine UA NEGATIVE (NEGATIVE); Leukocyte Esterase Urine UA NEGATIVE (NEGATIVE); Nitrite Urine UA NEGATIVE (Negative); Occult Blood Urine UA TRACE-INTACT (Negative); Protein Urine UA NEGATIVE (Negative); Specific Gravity Urine UA <=1.005 (1.000-1.035); Urobilinogen Urine UA 0.2 E.U./dL (0.2)
[2024-01-26 21:08] LABS: Urine Volume 10mL (spun)
[2024-01-26 21:09] LABS: Bacteria Urine Few (2-10); Culture Indicated Urine Cult Not Indicated; RBC Urine None Seen (0-5/HPF); Squamous Epithelial Cell Urine 1-5 /HPF (0-5/HPF); WBC Urine None Seen (0-5/HPF)
[2024-01-26] MEDS: KETOROLAC 30 MG/ML VIAL 15 MG IV (21:39)
[2024-01-26] MEDS: diazePAM 10 MG/2 ML SYRINGE 5 MG IV (21:41)
[2024-01-26] MEDS: TRAMADOL 50 MG PREPACK 1 BOTTLE MISC (23:52)
[2024-01-27] VITALS: O2SAT 98
[2024-01-27 00:01] VITALS: BP 144/71; PULSE 91; O2SAT 97
== END 2024-01-27 00:03 | disposition home or self-care (01) ==
PROVIDERS: Emergency Provider Emergency Medicine; PCP Internal Medicine
DX: R10.9 Unspecified abdominal pain (principal)
CPT/HCPCS: 36415; 74177; 80053; 81001; 81003; 83605; 83690; 85025; 99284; J1170; J1885; J2405; J3360; Q9967

== ENCOUNTER 2024-03-08 04:53 | Emergency (ER) | payer SELFPAY ==
[2023-05-06 00:47] VITALS: BMI 35.2
[2024-03-08] VITALS (13 sets, daily range): BP systolic 136–195; BP diastolic 83–106; PULSE 56–88; RESP 12–23; TEMP 36.9; O2SAT 96–100; BMI 33.0
[2024-03-08 05:55] LABS: Add Manual Diff / Slide Review NO; Ammonia (NH3) < 9 umol/L (9-30); Basophils Absolute Auto 0 /uL (0-100); Basophils Percent Auto 0.1 % (0-2); Eosinophils Absolute Auto 0 /uL (0-450); Hematocrit 38.6 % (36-46); Hemoglobin 12.8 g/dL (12.0-16.0); Lymphocytes Absolute Auto 2800 /uL (1100-4500); Lymphocytes Percent Auto 16.8 % (25-40); Mean Corpuscular HGB Conc 33.2 % (30-36); Mean Corpuscular Hemoglobin 27.8 PG (26-34); Mean Corpuscular Volume 83.7 fL (80-100); Monocytes Absolute Auto 1400 /uL (0-900); Monocytes Percent Auto 8.3 % (3-14); Neutrophils Absolute Auto 12400 /uL (1500-7000); Neutrophils Percent Auto 74.8 % (50-75); Platelet Count 438 X10^3/uL (150-400); Red Blood Cell Count 4.61 X10^6/uL (4.0-5.2); Red Cell Distribution Width 15.1 % (11.6-14.8); White Blood Cell Count 16.6 X10^3/uL (4.5-11.0)
[2024-03-08 05:56] LABS: Alanine Aminotransferase 30 IU/L (<35); Albumin Globulin Ratio 1.5 (1.0-2.8); Alkaline Phosphatase 81 U/L (38-126); Aspartate Aminotransferase 27 IU/L (14-36); BUN Creatinine Ratio 21.1 (6-22); Bilirubin Total 2.3 mg/dL (0.2-1.3); Blood Urea Nitrogen 15 mg/dL (7-17); Calcium 9.9 mg/dL (8.4-10.2); Carbon Dioxide 22 mmol/L (22-32); Chloride 107 mmol/L (98-107); Estimated Glomerular Filt Rate > 60 mL/min (>60); Globulin 3.4 g/dL (1.7-4.1); Glucose 131 mg/dL (70-100); HEMOLYSIS < 15 (0-50); Lipase 163 U/L (23-300); Potassium 3.5 mmol/L (3.4-5.1); Sodium 142 mmol/L (137-145); Total Protein 8.4 g/dL (6.3-8.2)
--- NOTE | 2024-03-08 06:46 | ED.ABDPAIN ---
HPI - Abdominal Pain <Nathan Dickerson MD - Last Filed: 03/09/24 09:35> General Chief Complaint: Abdominal Pain Stated Complaint: possible sepsis Time Seen by Provider: 03/08/24 05:36 Source: patient Mode of arrival: Ambulatory History of Present Illness HPI narrative: 44-year-old female with history of remote cholecystectomy, remote appendectomy, reports she had urosepsis last year, now with nausea vomiting diarrhea numerous episodes since yesterday. No black or red emesis. No black or red stools. No fevers or chills. No dysuria or frequency of urination. Denies flank pain. Some right middle lower quadrant abdominal discomfort. No history of kidney stones known. No vaginal bleeding. No vaginal discharge. No history of colitis, diverticulitis, Crohn's disease. No exposure to recent antibiotics, travel, camping. No close contacts to persons with similar symptoms Related Data Home Medications Medication Instructions Recorded Confirmed phentermine 37.5 mg tablet 37.5 mg PO DAILY 10/28/22 01/20/24 alprazolam 0.5 mg tablet 0.5 mg PO BID PRN Anxiety 05/06/23 01/20/24 hydrochlorothiazide 12.5 mg tablet 12.5 mg PO DAILY 05/06/23 01/20/24 metformin 500 mg tablet,extended 500 mg PO DAILY 05/06/23 01/20/24 release 24 hr topiramate 25 mg tablet 25 mg PO BID 10/14/23 01/20/24 Previous Rx's Medication Instructions Recorded tramadol 50 mg tablet 50 mg PO Q8H PRN pain #14 tabs 10/21/23 hydrocodone 5 mg-acetaminophen 325 1 tab PO Q6H PRN pain #12 tabs 12/10/23 mg tablet ondansetron 4 mg disintegrating 4 mg PO Q8H PRN nausea and 12/10/23 tablet vomiting #10 tabs cefdinir 300 mg capsule 300 mg PO BID #14 caps 01/20/24 phenazopyridine 200 mg tablet 200 mg PO TID 6 doses #6 tabs 01/20/24 (Pyridium) metoclopramide HCl 10 mg tablet 10 mg PO Q6H PRN nausea and 03/08/24 (Reglan) vomiting #30 tabs Allergies Allergy/AdvReac Type Severity Reaction Status Date / Time gluten Allergy Celiac Verified 01/26/24 18:59 coconut AdvReac Intermediate Hives Verified 01/26/24 18:59 NSAIDS (Non-Steroidal AdvReac Mild Gastrointestinal Verified 01/26/24 18:59 Anti-Inflamma Upset benzonatate AdvReac Unknown Hives Verified 01/26/24 18:59 [From Tessalon Perles] escitalopram [From Lexapro] AdvReac Unknown Hallucinati Verified 01/26/24 18:59 ng Review of Systems <Lissa Conte MD - Last Filed: 03/08/24 11:28> Review of Systems Narrative: Pertinent positive and negative findings as per HPI Patient History <Nathan Dickerson MD - Last Filed: 03/09/24 09:35> Medical History Polycystic ovary disease Celiac disease GERD with apnea Hypertension Bipolar disorder Surgical History Status post tubal ligation History of section H/O abdominoplasty H/O oophorectomy H/O gastric sleeve History of cholecystectomy History of appendectomy Social History marital status: household members: significant other and children lives independently: Yes occupational status: employed Smoking Status: Never smoker alcohol intake: current substance use type: marijuana Smoking Status: Never smoker alcohol intake frequency: holidays/special occasions only Substance Use Type: marijuana Exam <Nathan Dickerson MD - Last Filed: 03/09/24 09:35> Narrative Exam Narrative: GENERAL: Well-developed patient, in mild distress. HEAD: Atraumatic. Normocephalic. EYES: Pupils equal round and reactive. Extraocular motions intact. No scleral icterus. No injection or drainage. ENT: Nose without bleeding, purulent drainage. Throat without erythema, tonsillar hypertrophy or exudate. Airway patent. NECK: Trachea midline. Non tender CARDIOVASCULAR: Regular rate and rhythm without murmurs, gallops, or rubs. RESPIRATORY: Clear to auscultation. Breath sounds equal bilaterally. No wheezes, rales, or rhonchi. GASTROINTESTINAL: Abdomen soft, non-tender, nondistended. EXTREMITIES: No edema or joint tenderness. BACK: Nontender without deformity or crepitance. No flank tenderness. NEURO: AOx3. SKIN: No rash or erythema of visible areas Initial Vital Signs Initial Vital Signs: Vital Signs Temperature 98.4 F 03/08/24 05:08 Pulse Rate 86 03/08/24 05:08 Respiratory Rate 20 03/08/24 05:08 Blood Pressure 168/106 H 03/08/24 05:08 Pulse Oximetry 100 03/08/24 05:08 Oxygen Delivery Method Room Air 03/08/24 05:08 <Lissa Conte MD - Last Filed: 03/08/24 11:28> Initial Vital Signs Initial Vital Signs: Vital Signs Temperature 98.4 F 03/08/24 05:08 Pulse Rate 86 03/08/24 05:08 Respiratory Rate 20 03/08/24 05:08 Blood Pressure 168/106 H 03/08/24 05:08 Pulse Oximetry 100 03/08/24 05:08 Oxygen Delivery Method Room Air 03/08/24 05:08 Course <Nathan Dickerson MD - Last Filed: 03/09/24 09:35> Orders Ordered: Discontinued Medications Diphenhydramine HCl (Diphenhydramine 50 Mg/Ml Vial) 25 mg IV NOW ONE Stop: 03/08/24 09:17 Last Admin: 03/08/24 09:29 Dose: 25 mg Documented By: SHAYNA Hydromorphone HCl (Hydromorphone 0.5 Mg Inj) 0.5 mg IV NOW ONE Stop: 03/08/24 09:16 Last Admin: 03/08/24 09:29 Dose: 0.5 mg Documented By: SHAYNA Ceftriaxone Sodium 1,000 mg/ (Sodium Chloride) 100 mls @ 200 mls/hr IV NOW ONE Stop: 03/08/24 07:13 Last Admin: 03/08/24 07:39 Dose: Not Given Documented By: SOUMYA Sodium Chloride (Normal Saline 0.9%) 1,000 mls @ 1,000 mls/hr IV BOLUS ONE Stop: 03/08/24 08:26 Last Infusion: 03/08/24 09:25 Dose: Infused Documented By: Admin: 03/08/24 07:34 Dose: 1,000 mls/hr Documented By: SOUMYA Sodium Chloride (Normal Saline 0.9%) 1,000 mls @ 1,000 mls/hr IV BOLUS ONE Stop: 03/08/24 10:15 Last Infusion: 03/08/24 10:42 Dose: Infused Documented By: Admin: 03/08/24 09:30 Dose: 1,000 mls/hr Documented By: SHAYNA Ketorolac Tromethamine (Ketorolac 30 Mg/Ml Vial) 15 mg IV NOW ONE Stop: 03/08/24 07:40 Last Admin: 03/08/24 07:58 Dose: 15 mg Documented By: SOUMYA Metoclopramide HCl (Metoclopramide 10 Mg/2 Ml Inj) 10 mg IV NOW ONE Stop: 03/08/24 09:16 Last Admin: 03/08/24 09:29 Dose: 10 mg Documented By: SHAYNA Ondansetron HCl (Ondansetron 4 Mg/2 Ml Inj) 4 mg IV NOW ONE Stop: 03/08/24 07:28 Last Admin: 03/08/24 07:33 Dose: 4 mg Documented By: SOUMYA Vital Signs Vital signs: Vital Signs - 8 hr 03/08/24 05:08 03/08/24 08:38 03/08/24 09:00 Temperature 98.4 F Pulse Rate 86 60 59 L Respiratory Rate 20 21 23 Blood Pressure 168/106 H Pulse Oximetry 100 100 100 Oxygen Delivery Method Room Air Room Air 03/08/24 09:30 03/08/24 09:36 03/08/24 09:36 Temperature Pulse Rate 63 62 Respiratory Rate 15 Blood Pressure 195/106 H Pulse Oximetry 100 100 Oxygen Delivery Method 03/08/24 10:00 03/08/24 10:01 03/08/24 10:01 Temperature Pulse Rate 88 77 Respiratory Rate 12 Blood Pressure 178/88 H Pulse Oximetry 99 100 Oxygen Delivery Method 03/08/24 10:22 03/08/24 10:22 03/08/24 10:30 Temperature Pulse Rate 56 L 62 Respiratory Rate 23 23 Blood Pressure 175/84 H Pulse Oximetry 100 100 Oxygen Delivery Method 03/08/24 10:31 03/08/24 10:31 Temperature Pulse Rate 60 Respiratory Rate 22 Blood Pressure 156/83 H Pulse Oximetry 100 Oxygen Delivery Method <Lissa Conte MD - Last Filed: 03/08/24 11:28> Orders Ordered: Discontinued Medications Diphenhydramine HCl (Diphenhydramine 50 Mg/Ml Vial) 25 mg IV NOW ONE Stop: 03/08/24 09:17 Last Admin: 03/08/24 09:29 Dose: 25 mg Documented By: SHAYNA Hydromorphone HCl (Hydromorphone 0.5 Mg Inj) 0.5 mg IV NOW ONE Stop: 03/08/24 09:16 Last Admin: 03/08/24 09:29 Dose: 0.5 mg Documented By: SHAYNA Ceftriaxone Sodium 1,000 mg/ (Sodium Chloride) 100 mls @ 200 mls/hr IV NOW ONE Stop: 03/08/24 07:13 Last Admin: 03/08/24 07:39 Dose: Not Given Documented By: SOUMYA Sodium Chloride (Normal Saline 0.9%) 1,000 mls @ 1,000 mls/hr IV BOLUS ONE Stop: 03/08/24 08:26 Last Infusion: 03/08/24 09:25 Dose: Infused Documented By: Admin: 03/08/24 07:34 Dose: 1,000 mls/hr Documented By: SOUMYA Sodium Chloride (Normal Saline 0.9%) 1,000 mls @ 1,000 mls/hr IV BOLUS ONE Stop: 03/08/24 10:15 Last Infusion: 03/08/24 10:42 Dose: Infused Documented By: Admin: 03/08/24 09:30 Dose: 1,000 mls/hr Documented By: SHAYNA Ketorolac Tromethamine (Ketorolac 30 Mg/Ml Vial) 15 mg IV NOW ONE Stop: 03/08/24 07:40 Last Admin: 03/08/24 07:58 Dose: 15 mg Documented By: SOUMYA Metoclopramide HCl (Metoclopramide 10 Mg/2 Ml Inj) 10 mg IV NOW ONE Stop: 03/08/24 09:16 Last Admin: 03/08/24 09:29 Dose: 10 mg Documented By: SHAYNA Ondansetron HCl (Ondansetron 4 Mg/2 Ml Inj) 4 mg IV NOW ONE Stop: 03/08/24 07:28 Last Admin: 03/08/24 07:33 Dose: 4 mg Documented By: SOUMYA Vital Signs Vital signs: Vital Signs - 8 hr 03/08/24 05:08 03/08/24 08:38 03/08/24 09:00 Temperature 98.4 F Pulse Rate 86 60 59 L Respiratory Rate 20 21 23 Blood Pressure 168/106 H Pulse Oximetry 100 100 100 Oxygen Delivery Method Room Air Room Air 03/08/24 09:30 03/08/24 09:36 03/08/24 09:36 Temperature Pulse Rate 63 62 Respiratory Rate 15 Blood Pressure 195/106 H Pulse Oximetry 100 100 Oxygen Delivery Method 03/08/24 10:00 03/08/24 10:01 03/08/24 10:01 Temperature Pulse Rate 88 77 Respiratory Rate 12 Blood Pressure 178/88 H Pulse Oximetry 99 100 Oxygen Delivery Method 03/08/24 10:22 03/08/24 10:22 03/08/24 10:30 Temperature Pulse Rate 56 L 62 Respiratory Rate 23 23 Blood Pressure 175/84 H Pulse Oximetry 100 100 Oxygen Delivery Method 03/08/24 10:31 03/08/24 10:31 Temperature Pulse Rate 60 Respiratory Rate 22 Blood Pressure 156/83 H Pulse Oximetry 100 Oxygen Delivery Method MDM - Abdominal Pain <Nathan Dickerson MD - Last Filed: 03/09/24 09:35> Lab Data 03/08/24 05:30 03/08/24 05:30 Labs: Lab Results 03/08/24 03/08/24 03/08/24 Range/Units 05:30 06:30 07:40 WBC 16.6 H (4.5-11.0) X10^3/uL RBC 4.61 (4.0-5.2) X10^6/uL Hgb 12.8 (12.0-16.0) g/dL Hct 38.6 (36-46) % MCV 83.7 (80-100) fL MCH 27.8 (26-34) PG MCHC 33.2 (30-36) % RDW 15.1 H (11.6-14.8) % Plt Count 438 H (150-400) X10^3/uL Neut % (Auto) 74.8 (50-75) % Lymph % (Auto) 16.8 L (25-40) % Real % (Auto) 8.3 (3-14) % Eos % (Auto) 0.0 L (2-4) % Baso % (Auto) 0.1 (0-2) % Neut # (Auto) 54378 H (1427-9695) /uL Lymph # (Auto) 2800 (8460-0239) /uL Real # (Auto) 1400 H (0-900) /uL Eos # (Auto) 0 (0-450) /uL Baso # (Auto) 0 (0-100) /uL Sodium 142 (137-145) mmol/L Potassium 3.5 (3.4-5.1) mmol/L Chloride 107 (98-107) mmol/L Carbon Dioxide 22 (22-32) mmol/L BUN 15 (7-17) mg/dL Creatinine 0.71 (0.52-1.04) mg/dL Estimated GFR > 60 (>60) mL/min BUN/Creatinine Ratio 21.1 (6-22) Glucose 131 H (70-100) mg/dL Calcium 9.9 (8.4-10.2) mg/dL Total Bilirubin 2.3 H (0.2-1.3) mg/dL AST 27 (14-36) IU/L ALT 30 (<35) IU/L Alkaline Phosphatase 81 (38-126) U/L Ammonia < 9 L (9-30) umol/L Total Protein 8.4 H (6.3-8.2) g/dL Albumin 5.0 (3.5-5.0) g/dL Globulin 3.4 (1.7-4.1) g/dL Albumin/Globulin Ratio 1.5 (1.0-2.8) Lipase 163 (23-300) U/L HCG, Quant < 2.39 mIU/mL Urine RBC 1-5/hpf 1-5/hpf (0-5/HPF) Urine WBC 5-10/hpf H 1-5/hpf (0-5/HPF) Ur Squamous Epith Cells 5-10 /hpf H 0-1 /hpf (0-5/HPF) Amorphous Sediment 3+ Urine Bacteria Many (>30) H None seen (None) Ur Culture Indicated? Specimen cultured Specimen cultured Vol Urine Centrifuged 10ml (spun) 10ml (spun) Point of care testing: Urine Dip Bedside Urine Glucose Negative Bedside Urine Bilirubin + 1 Bedside Urine Ketone + 15 Urine Specific [place] 1.030 Bedside Urine Occult Blood +/- Bedside Urine pH 5.0 Bedside Urine Protein ++ 100 Bedside Urine Urobilinogen - Negative Bedside Urine Nitrite - Negative Bedside Urine Leukocytes +/- 15 Esterase ECG Data Attestation: I personally reviewed and interpreted this ECG as follows: Interpretation: Normal sinus rhythm with rate of 99, no obvious ST segment elevation or depression. TX 156, QRS 98, QTC 446. MDM Narrative Medical decision making narrative: 43-year-old female with nausea vomiting diarrhea, urosepsis last year, some tenderness right middle and right lower quadrant, no guarding or rebound. Prior remote cholecystectomy and appendectomy. Afebrile on triage, normotensive. Labs pending. 0700, Urinalysis contaminated, repeat specimen requested. HCG negative. CT abdomen and pelvis imaging requested. Signed out to Dr Conte Complicating co-morbidities: Recent history of UTI with sepsis and reports that ?I feel exactly the same? Data collected from: patient Medical records reviewed: Prior cholecystectomy, appendectomy, hysterectomy, gastric sleeve Differential considered: Gastroenteritis, bowel obstruction, other intra-abdominal abscess Exam documented above, pertinent findings include: Patient is clearly uncomfortable, moderately dehydrated, her abdomen is tender but there is no evidence of acute surgical abdomen. She does not have significant flank pain Lab Test results independently reviewed as above. Pertinent findings: CBC shows a modest leukocytosis 16.6 with minimal left shift. Chemistries show an elevated bilirubin at 2.3, AST ALT and alk-phos are all appropriate. Remainder of lab work is reassuring Lipase is unremarkable Imaging studies independently reviewed: In reviewing medical records patient has had an inordinate number, 8 in the last 14 months as well as for pelvic ultrasounds, none of which have showed any evidence of pathology. Reviewed this with the patient and together we decided to simply try and upright abdomen to make sure that there was not significant constipation, free air or obvious large kidney stone. Apparently she has been told that she may have had kidney stones in the past however there has been no obvious sequelae such as seeing them on CT scan, hydronephrosis or gross or microscopic hematuria Treatments: 2 L of fluid, Toradol, Reglan and Benadryl, half a mg of Dilaudid Re-evaluations: Patient notes that she has had chronic abdominal pain for a number of years. She has multiple specialists that have evaluated her. She is seen surgeons, she has had upper and lower endoscopies she is seen an customer success representative who has postulated that she may have mastocytosis which causes her abdominal pain. Interestingly, with the Reglan and Benadryl given her pain and nausea completely resolved. At this point she has appropriate follow up, is pain-free, feeling much better, has spontaneously urinated after 2 L of fluid. We will be safe for discharge home Discussion: 43-year-old woman presents with recurrent episodes of abdominal pain. After cholecystectomy, hysterectomy an appendectomy these surgical complications are far less likely. She does not appear to have urinary tract infection, there was no evidence kidney stone. She does note that the only thing that seems to help with her pain is hot showers but denies daily marijuana use. We discussed the possibility of mastocytosis or abnormal histamine reaction as a source of her abdominal pain. Discussed an empiric trial of nonsedating antihistamine daily to see if it influence her pain. We will give her a prescription of Reglan since did not seem to be effective. Also discussed using oral Benadryl should she have increasing nausea assuming that it would have minimal side effects but may be helpful with symptoms. At this point there is no indication for additional imaging, workup or hospitalization, questions are answered and she is safe for discharge <Lissa Conte MD - Last Filed: 03/08/24 11:28> Lab Data Labs: Lab Results 03/08/24 03/08/24 03/08/24 Range/Units 05:30 06:30 07:40 WBC 16.6 H (4.5-11.0) X10^3/uL RBC 4.61 (4.0-5.2) X10^6/uL Hgb 12.8 (12.0-16.0) g/dL Hct 38.6 (36-46) % MCV 83.7 (80-100) fL MCH 27.8 (26-34) PG MCHC 33.2 (30-36) % RDW 15.1 H (11.6-14.8) % Plt Count 438 H (150-400) X10^3/uL Neut % (Auto) 74.8 (50-75) % Lymph % (Auto) 16.8 L (25-40) % Real % (Auto) 8.3 (3-14) % Eos % (Auto) 0.0 L (2-4) % Baso % (Auto) 0.1 (0-2) % Neut # (Auto) 22767 H (4658-1076) /uL Lymph # (Auto) 2800 (5831-5780) /uL Real # (Auto) 1400 H (0-900) /uL Eos # (Auto) 0 (0-450) /uL Baso # (Auto) 0 (0-100) /uL Sodium 142 (137-145) mmol/L Potassium 3.5 (3.4-5.1) mmol/L Chloride 107 (98-107) mmol/L Carbon Dioxide 22 (22-32) mmol/L BUN 15 (7-17) mg/dL Creatinine 0.71 (0.52-1.04) mg/dL Estimated GFR > 60 (>60) mL/min BUN/Creatinine Ratio 21.1 (6-22) Glucose 131 H (70-100) mg/dL Calcium 9.9 (8.4-10.2) mg/dL Total Bilirubin 2.3 H (0.2-1.3) mg/dL AST 27 (14-36) IU/L ALT 30 (<35) IU/L Alkaline Phosphatase 81 (38-126) U/L Ammonia < 9 L (9-30) umol/L Total Protein 8.4 H (6.3-8.2) g/dL Albumin 5.0 (3.5-5.0) g/dL Globulin 3.4 (1.7-4.1) g/dL Albumin/Globulin Ratio 1.5 (1.0-2.8) Lipase 163 (23-300) U/L HCG, Quant < 2.39 mIU/mL Urine RBC 1-5/hpf 1-5/hpf (0-5/HPF) Urine WBC 5-10/hpf H 1-5/hpf (0-5/HPF) Ur Squamous Epith Cells 5-10 /hpf H 0-1 /hpf (0-5/HPF) Amorphous Sediment 3+ Urine Bacteria Many (>30) H None seen (None) Ur Culture Indicated? Specimen cultured Specimen cultured Vol Urine Centrifuged 10ml (spun) 10ml (spun) Point of care testing: Urine Dip Bedside Urine Glucose Negative Bedside Urine Bilirubin + 1 Bedside Urine Ketone + 15 Urine Specific [place] 1.030 Bedside Urine Occult Blood +/- Bedside Urine pH 5.0 Bedside Urine Protein ++ 100 Bedside Urine Urobilinogen - Negative Bedside Urine Nitrite - Negative Bedside Urine Leukocytes +/- 15 Esterase MDM Narrative Medical decision making narrative: 43-year-old female with nausea vomiting diarrhea, urosepsis last year, some tenderness right middle and right lower quadrant, no guarding or rebound. Afebrile on triage, normotensive. Labs pending. 0700, Urinalysis contaminated, repeat specimen requested. HCG negative. CT abdomen and pelvis imaging requested. Signed out to Dr Conte Complicating co-morbidities: Recent history of UTI with sepsis and reports that ?I feel exactly the same? Data collected from: patient Medical records reviewed: Prior cholecystectomy, appendectomy, hysterectomy, gastric sleeve Differential considered: Gastroenteritis, bowel obstruction, other intra-abdominal abscess Exam documented above, pertinent findings include: Patient is clearly uncomfortable, moderately dehydrated, her abdomen is tender but there is no evidence of acute surgical abdomen. She does not have significant flank pain Lab Test results independently reviewed as above. Pertinent findings: CBC shows a modest leukocytosis 16.6 with minimal left shift. Chemistries show an elevated bilirubin at 2.3, AST ALT and alk-phos are all appropriate. Remainder of lab work is reassuring Lipase is unremarkable Imaging studies independently reviewed: In reviewing medical records patient has had an inordinate number, 8 in the last 14 months as well as for pelvic ultrasounds, none of which have showed any evidence of pathology. Reviewed this with the patient and together we decided to simply try and upright abdomen to make sure that there was not significant constipation, free air or obvious large kidney stone. Apparently she has been told that she may have had kidney stones in the past however there has been no obvious sequelae such as seeing them on CT scan, hydronephrosis or gross or microscopic hematuria Treatments: 2 L of fluid, Toradol, Reglan and Benadryl, half a mg of Dilaudid Re-evaluations: Patient notes that she has had chronic abdominal pain for a number of years. She has multiple specialists that have evaluated her. She is seen surgeons, she has had upper and lower endoscopies she is seen an customer success representative who has postulated that she may have mastocytosis which causes her abdominal pain. Interestingly, with the Reglan and Benadryl given her pain and nausea completely resolved. At this point she has appropriate follow up, is pain-free, feeling much better, has spontaneously urinated after 2 L of fluid. We will be safe for discharge home Discussion: 43-year-old woman presents with recurrent episodes of abdominal pain. After cholecystectomy, hysterectomy an appendectomy these surgical complications are far less likely. She does not appear to have urinary tract infection, there was no evidence kidney stone. She does note that the only thing that seems to help with her pain is hot showers but denies daily marijuana use. We discussed the possibility of mastocytosis or abnormal histamine reaction as a source of her abdominal pain. Discussed an empiric trial of nonsedating antihistamine daily to see if it influence her pain. We will give her a prescription of Reglan since did not seem to be effective. Also discussed using oral Benadryl should she have increasing nausea assuming that it would have minimal side effects but may be helpful with symptoms. At this point there is no indication for additional imaging, workup or hospitalization, questions are answered and she is safe for discharge Discharge Plan Departure Patient Disposition: Home Clinical Impression: Abdominal pain Instructions: DI for Abdominal Pain-Adult Activity Restrictions/Additional Instructions: Thank you for coming in today Your exam did not show any dramatic abnormalities or point me in any other direction than your outpatient physicians have already addressed. There was no evidence of significant infection, bowel obstruction intra-abdominal abscess dramatic electrolyte abnormalities or reason for keeping you in the hospital today We did briefly discuss the possibility of mastocytosis as suggested by 1 of your outpatient doctors. Trying daily Hailey, Claritin, Zyrtec or 1 of the other nonsedating antihistamines maybe helpful and isn't going to have many side effects. I am going to give you a prescription for Reglan, a nausea medicine that treats nausea by increasing gut motility. This seemed to work well for you through the IV. You may also at least consider trying Benadryl if you have include nausea increasing Prescription for Reglan was electronically transmitted to [facility] [employer] If you find that you are having fevers, there was any blood that your vomiting or coming out your bottom, develop new symptoms or additional findings you do need to be re-evaluated Prescriptions: New metoclopramide HCl [Reglan] 10 mg tablet 10 mg PO Q6H PRN (Reason: nausea and vomiting) Qty: 30 0RF No Action cefdinir 300 mg capsule 300 mg PO BID Qty: 14 0RF phenazopyridine [Pyridium] 200 mg tablet 200 mg PO TID 0 Days Qty: 6 0RF topiramate 25 mg tablet 25 mg PO BID phentermine 37.5 mg tablet 37.5 mg PO DAILY Patient Comments: 1 tablet by mouth every morning BEFORE BREAKFAST tramadol 50 mg tablet 50 mg PO Q8H PRN (Reason: pain) Qty: 14 0RF hydrocodone-acetaminophen 5-325 mg tablet 1 tab PO Q6H PRN (Reason: pain) Qty: 12 0RF ondansetron 4 mg tablet,disintegrating 4 mg PO Q8H PRN (Reason: nausea and vomiting) Qty: 10 0RF alprazolam 0.5 mg tablet 0.5 mg PO BID PRN (Reason: Anxiety) metformin 500 mg tablet extended release 24 hr 500 mg PO DAILY Patient Comments: hasn't started yet, waiting for pharmacy hydrochlorothiazide 12.5 mg tablet 12.5 mg PO DAILY Referrals: Crow Burgos MD [Primary Care Provider] - Stand Alone Forms: Patient Portal/API
[2024-03-08 07:06] LABS: Urine Volume 10mL (spun)
[2024-03-08 07:07] LABS: Bacteria Urine Many (>30); Culture Indicated Urine Specimen Cultured; RBC Urine 1-5/HPF (0-5/HPF); Squamous Epithelial Cell Urine 5-10 /HPF (0-5/HPF); WBC Urine 5-10/HPF (0-5/HPF)
[2024-03-08 07:16] LABS: HCG Quantitative /Beta subunit < 2.39 mIU/mL
[2024-03-08] MEDS: ONDANSETRON 4 MG/2 ML INJ IV (07:33)
[2024-03-08] MEDS: SODIUM CHLORIDE 0.9% 1,000 ML 1000 ML IV ×2 (07:34→09:30)
[2024-03-08] MEDS: KETOROLAC 30 MG/ML VIAL 15 MG IV (07:58)
[2024-03-08 08:14] LABS: Urine Volume 10mL (spun)
[2024-03-08 08:15] LABS: Amorphous Sediment Urine 3+; Bacteria Urine None Seen; Culture Indicated Urine Specimen Cultured; RBC Urine 1-5/HPF (0-5/HPF); Squamous Epithelial Cell Urine 0-1 /HPF (0-5/HPF); WBC Urine 1-5/HPF (0-5/HPF)
[2024-03-08] MEDS: METOCLOPRAMIDE 10 MG/2 ML INJ IV (09:29)
[2024-03-08] MEDS: HYDROMORPHONE 0.5 MG INJ IV (09:29)
[2024-03-08] MEDS: diphenhydrAMINE 50 MG/ML VIAL 25 MG IV (09:29)
--- NOTE | 2024-03-08 09:44 | DI.RAD.S_ITS ---
PROCEDURE: XR ABDOMEN 1V INDICATIONS: abdominal pain TECHNIQUE: One view of the abdomen acquired. COMPARISON: [facility], CT, CT ABDOMEN PELVIS W CON, 01/26/2024, 19:53. FINDINGS: Surgical changes and devices: Cholecystectomy clips. Bowel: Bowel gas pattern is normal. Soft tissues: No suspicious abdominal calcifications. Visualized solid organ contours appear normal in size. Bones: No suspicious bony lesions. IMPRESSION: No visualized obstruction. Dictated by: Gisselle Hernandes M.D. on 03/08/2024 at 10:49 Approved by: Gisselle Hernandes M.D. on 03/08/2024 at 10:49
== END 2024-03-08 11:29 | disposition home or self-care (01) ==
PROVIDERS: Emergency Medicine; Emergency Provider Emergency Medicine; PCP Internal Medicine
DX: R10.9 Unspecified abdominal pain (principal); R11.2 Nausea with vomiting, unspecified
CPT/HCPCS: 36415; 74018; 80053; 81003; 81015; 82140; 83690; 84702; 85025; 87077; 87086; 87186; 96361; 96374; 96375; 99284; J1170; J1200; J1885; J2405; J2765

== ENCOUNTER 2024-03-13 18:49 | Observation (INO) | payer SELFPAY ==
[2023-05-06 00:47] VITALS: BMI 35.2
[2024-03-13] VITALS (12 sets, daily range): BP systolic 145–206; BP diastolic 67–118; PULSE 58–88; RESP 17; TEMP 36.8; O2SAT 95–100
[2024-03-13] MEDS: ONDANSETRON 4 MG/2 ML INJ IV (20:41)
--- NOTE | 2024-03-13 21:02 | ED_ITS ---
HPI - Nausea/Vomiting/Diarrhea General Chief complaint: Nausea/Vomiting/Diarrhea Stated complaint: N/V/D, poss sepsis Time Seen by Provider: 03/13/24 20:55 Source: patient Mode of arrival: Ambulatory History of Present Illness HPI Narrative: 43-year-old female with history of recurrent abdominal pain, recurrent episodes nausea and vomiting, recent urinary tract infection, seen here 03/08/2024 abdominal pain, urine culture grew pansensitive E coli, was prescribed cefdinir antibiotic, she was unable to keep this down, was prescribed nitrofurantoin then switched to oral Bactrim, has had nausea and vomiting that is increasing, nonbloody emesis. No loose stools. Complains of right-sided flank pain. Does not recall history of kidney stones, no fevers or chills. Cannot keep her medications down. Related Data Home Medications Medication Instructions Recorded Confirmed phentermine 37.5 mg tablet 37.5 mg PO DAILY 10/28/22 03/14/24 alprazolam 0.5 mg tablet 0.5 mg PO BID PRN Anxiety 05/06/23 03/14/24 metformin 500 mg tablet,extended 500 mg PO DAILY 05/06/23 03/14/24 release 24 hr topiramate 25 mg tablet 25 mg PO BID 10/14/23 03/14/24 Previous Rx's Medication Instructions Recorded metoclopramide HCl 10 mg tablet 10 mg PO Q6H PRN nausea and 03/08/24 (Reglan) vomiting #30 tabs Allergies Allergy/AdvReac Type Severity Reaction Status Date / Time gluten Allergy Celiac Verified 03/13/24 19:07 coconut AdvReac Intermediate Hives Verified 03/13/24 19:07 NSAIDS (Non-Steroidal AdvReac Mild Gastrointestinal Verified 03/13/24 19:07 Anti-Inflamma Upset benzonatate AdvReac Unknown Hives Verified 03/13/24 19:07 [From Tessalon Perles] escitalopram [From Lexapro] AdvReac Unknown Hallucinati Verified 03/13/24 19:07 ng Review of Systems Review of Systems Narrative: per HPI Patient History Medical History (Updated 03/14/24 @ 12:21 by Tai Cage MD) Left corneal abrasion Headache Polycystic ovary disease Celiac disease GERD with apnea Hypertension Bipolar disorder Surgical History Status post tubal ligation History of section H/O abdominoplasty H/O oophorectomy H/O gastric sleeve History of cholecystectomy History of appendectomy Social History marital status: household members: significant other and children lives independently: Yes occupational status: employed Smoking Status: Never smoker alcohol intake: current substance use type: marijuana Smoking Status: Never smoker alcohol intake frequency: holidays/special occasions only Substance Use Type: marijuana Exam Narrative Exam Narrative: GENERAL: Well-developed patient, in mild distress. In abdominal discussed with frequent retching HEAD: Atraumatic. Normocephalic. EYES: Pupils equal round and reactive. Extraocular motions intact. No scleral icterus. No injection or drainage. ENT: Nose without bleeding, purulent drainage. Throat without erythema, tonsillar hypertrophy or exudate. Airway patent. NECK: Trachea midline. Non tender CARDIOVASCULAR: Regular rate and rhythm without murmurs, gallops, or rubs. RESPIRATORY: Clear to auscultation. Breath sounds equal bilaterally. No wheezes, rales, or rhonchi. GASTROINTESTINAL: Abdomen soft, non-tender, nondistended. EXTREMITIES: No edema or joint tenderness. BACK: Nontender without deformity or crepitance. Right-sided flank tenderness, no tenderness to left flank percussion. NEURO: AOx3. SKIN: No rash or erythema of visible areas Initial Vital Signs Initial Vital Signs: Vital Signs Temperature 98.3 F 03/13/24 19:05 Pulse Rate 84 03/13/24 19:05 Respiratory Rate 17 03/13/24 19:05 Blood Pressure 206/118 H 03/13/24 19:05 Pulse Oximetry 100 03/13/24 19:05 Oxygen Delivery Method Room Air 03/13/24 19:05 Course Orders Ordered: ED Orders 03/15/24 Magnesium Routine 03/15/24 04:45 Complete Blood Count AUTO DIFF DAILY Comprehensive Metabolic Panel DAILY Acetaminophen (Acetaminophen 325 Mg Tablet) 650 mg PO Q6H PRN PRN Reason: Fever/Mild Pain (1-3) Calcium Carbonate (Calcium Carbonate 500 Mg Tab) 1,000 mg PO Q4HR PRN PRN Reason: Dyspepsia Enoxaparin Sodium (Enoxaparin 40 Mg/0.4 Ml Syringe) 40 mg SUBCUT DAILY BENITO Last Admin: 03/14/24 10:01 Dose: 40 mg Documented By: RB Hydromorphone HCl (Hydromorphone 1 Mg Inj) 1 mg IV Q3H PRN PRN Reason: Pain, Moderate (4-6) Last Admin: 03/14/24 12:58 Dose: 1 mg Documented By: Admin: 03/14/24 06:29 Dose: 1 mg Documented By: HNG Sodium Chloride (Normal Saline 0.9%) 1,000 mls @ 125 mls/hr IV CONT [facility] Last Admin: 03/14/24 05:47 Dose: 125 mls/hr Documented By: AB Dextrose/Sodium Chloride (Dextrose 5%-0.45% Ns) 1,000 mls @ 100 mls/hr IV CONT [facility] Last Admin: 03/14/24 12:47 Dose: 100 mls/hr Documented By: ANNETTE Metformin HCl (Metformin Xr 500 Mg Tablet) 500 mg PO DAILY [facility] Metoclopramide HCl (Metoclopramide 10 Mg/2 Ml Inj) 5 mg IV Q6HR [facility] Last Admin: 03/14/24 12:47 Dose: 5 mg Documented By: Admin: 03/14/24 05:46 Dose: 5 mg Documented By: AB Metoclopramide HCl (Metoclopramide Hcl 5 Mg Tablet) 10 mg PO Q6H PRN PRN Reason: nausea and vomiting Naloxone HCl (Naloxone 0.4 Mg/Ml Vial) 0.2 mg IV Q2MIN PRN PRN Reason: Opiate Reversal Naloxone HCl (Naloxone 0.4 Mg/Ml Vial) 0.2 mg IV Q2MIN PRN PRN Reason: Opiate Reversal Non-Formulary Medication (Alprazolam) 0.5 mg PO BID PRN PRN Reason: Anxiety Phentermine 37.5 Mg (Tablet) 37.5 mg PO DAILY [facility] Ofloxacin (Ofloxacin 0.3% Ophth 5 Ml) 1 drops EYE-LEFT 5XD [facility] Ondansetron HCl (Ondansetron 4 Mg/2 Ml Inj) 4 mg IV NOW PRN PRN Reason: Nausea And Vomiting Last Admin: 03/13/24 20:41 Dose: 4 mg Documented By: EMMIE Ondansetron HCl (Ondansetron 4 Mg Odt) 4 mg PO NOW PRN PRN Reason: Nausea And Vomiting Last Admin: 03/14/24 03:26 Dose: 4 mg Documented By: Ondansetron HCl (Ondansetron 4 Mg/2 Ml Inj) 4 mg IV Q6HR PRN PRN Reason: Nausea And Vomiting Ondansetron HCl (Ondansetron 4 Mg/2 Ml Inj) 4 mg IV Q8HR PRN PRN Reason: Nausea And Vomiting Pantoprazole Sodium (Pantoprazole Dr 20 Mg Tablet) 40 mg PO 0600 [facility] Last Admin: 03/14/24 05:47 Dose: 40 mg Documented By: Pantoprazole Sodium (Pantoprazole Dr 20 Mg Tablet) 20 mg PO 0600 [facility] Promethazine HCl (Promethazine 12.5 Mg Supp) 12.5 mg UT Q6HR PRN PRN Reason: Nausea And Vomiting Sodium Chloride (Sodium Chloride 0.9% Flush) 10 ml IV PRN PRN PRN Reason: Flush Sodium Chloride (Sodium Chloride 0.9% Flush) 10 ml IV BID BENITO Sumatriptan Succinate (Sumatriptan 6 Mg/0.5 Ml Vial) 6 mg SUBCUT Q2H PRN PRN Reason: Headache Last Admin: 03/14/24 14:41 Dose: 6 mg Documented By: ANNETTE Topiramate (Topiramate 25 Mg Tablet) 25 mg PO BID [facility] Last Admin: 03/14/24 11:22 Dose: 25 mg Documented By: LAURA Discontinued Medications Acetaminophen (Acetaminophen 325 Mg Tablet) 650 mg PO Q6H [facility] Last Admin: 03/14/24 10:04 Dose: 650 mg Documented By: Admin: 03/14/24 05:48 Dose: Not Given Documented By: Diphenhydramine HCl (Diphenhydramine 50 Mg/Ml Vial) 50 mg IV NOW ONE Stop: 03/13/24 21:17 Last Admin: 03/13/24 21:20 Dose: 50 mg Documented By: EMMIE Fluorescein Sodium (Fluorescein 1 Mg Strip) 1 mg EYE-LEFT NOW ONE Stop: 03/14/24 10:56 Last Admin: 03/14/24 10:59 Dose: 1 mg Documented By: HOMERO Hydromorphone HCl (Hydromorphone 0.5 Mg Inj) 0.5 mg IV NOW ONE Stop: 03/13/24 20:56 Last Admin: 03/13/24 21:03 Dose: 0.5 mg Documented By: EMMIE Hydromorphone HCl (Hydromorphone 0.5 Mg Inj) 0.5 mg IV NOW ONE Stop: 03/14/24 00:06 Last Admin: 03/14/24 00:33 Dose: 0.5 mg Documented By: Sodium Chloride (Normal Saline 0.9%) 1,000 mls @ 1,000 mls/hr IV BOLUS ONE Stop: 03/13/24 21:54 Last Infusion: 03/13/24 22:20 Dose: Infused Documented By: Admin: 03/13/24 21:08 Dose: 1,000 mls/hr Documented By: EMMIE Ampicillin Sodium/Sulbactam (Sodium 3 gm/ Sodium Chloride) 100 mls @ 200 mls/hr IV NOW ONE Stop: 03/14/24 02:43 Last Infusion: 03/14/24 03:30 Dose: Infused Documented By: Admin: 03/14/24 02:53 Dose: 200 mls/hr Documented By: SERGO Metoclopramide HCl (Metoclopramide 10 Mg/2 Ml Inj) 10 mg IV NOW ONE Stop: 03/13/24 20:56 Last Admin: 03/13/24 21:07 Dose: 10 mg Documented By: EMMIE Pantoprazole Sodium (Pantoprazole 40 Mg Vial) 40 mg IV NOW ONE Stop: 03/14/24 00:06 Last Admin: 03/14/24 00:33 Dose: 40 mg Documented By: Prochlorperazine (Prochlorperazine 10 Mg/2 Ml Vial) 5 mg IV NOW ONE Stop: 03/14/24 04:18 Last Admin: 03/14/24 05:46 Dose: 5 mg Documented By: Proparacaine HCl (Proparacaine 0.5% Ophth Lindsay) 1 drops EYE-LEFT NOW ONE Stop: 03/14/24 10:55 Last Admin: 03/14/24 10:58 Dose: 1 drop Documented By: HOMERO Vital Signs Vital signs: Vital Signs - 8 hr 03/13/24 20:30 03/13/24 20:31 03/13/24 20:31 Pulse Rate 73 65 Blood Pressure 202/93 H Pulse Oximetry 100 100 Oxygen Delivery Method 03/13/24 21:00 03/13/24 21:01 03/13/24 21:01 Pulse Rate 76 74 Blood Pressure 198/88 H Pulse Oximetry 99 100 Oxygen Delivery Method 03/13/24 21:30 03/13/24 21:31 03/13/24 21:31 Pulse Rate 58 L 58 L Blood Pressure 204/95 H Pulse Oximetry 96 95 Oxygen Delivery Method Room Air 03/13/24 22:00 03/13/24 22:01 03/13/24 22:01 Pulse Rate 69 81 Blood Pressure 145/72 H Pulse Oximetry 97 99 Oxygen Delivery Method MDM - Nausea/Vomiting/Diarrhea Medical Records Attestation: I reviewed the patient's medical records. Medical records narrative: Patient known to me from initial encounter 03/08/24 at change of shift with similar symptoms, when case signed out to next ED provider, was discharged home then Lab Data Attestation: I reviewed the patient's lab results. 03/13/24 20:43 03/13/24 20:43 Labs: Lab Results 03/13/24 03/13/24 03/13/24 Range/Units 20:43 20:45 22:53 WBC 11.0 (4.5-11.0) X10^3/uL RBC 4.57 (4.0-5.2) X10^6/uL Hgb 13.1 (12.0-16.0) g/dL Hct 38.3 (36-46) % MCV 83.8 (80-100) fL MCH 28.6 (26-34) PG MCHC 34.2 (30-36) % RDW 14.6 (11.6-14.8) % Plt Count 388 (150-400) X10^3/uL Neut % (Auto) 77.2 H (50-75) % Lymph % (Auto) 16.2 L (25-40) % [place] % (Auto) 6.0 (3-14) % Eos % (Auto) 0.1 L (2-4) % Baso % (Auto) 0.5 (0-2) % Neut # (Auto) 8500 H (7004-7877) /uL Lymph # (Auto) 1800 (9772-8196) /uL [place] # (Auto) 700 (0-900) /uL Eos # (Auto) 0 (0-450) /uL Baso # (Auto) 100 (0-100) /uL Sodium 138 (137-145) mmol/L Potassium 3.5 (3.4-5.1) mmol/L Chloride 102 (98-107) mmol/L Carbon Dioxide 28 (22-32) mmol/L BUN 9 (7-17) mg/dL Creatinine 0.45 L (0.52-1.04) mg/dL Estimated GFR > 60 (>60) mL/min BUN/Creatinine Ratio 20.0 (6-22) Glucose 109 H (70-100) mg/dL Hemoglobin A1c 5.0 (4.0-6.0) % Calcium 9.9 (8.4-10.2) mg/dL Total Bilirubin 2.3 H (0.2-1.3) mg/dL AST 26 (14-36) IU/L ALT 35 H (<35) IU/L Alkaline Phosphatase 66 (38-126) U/L Total Protein 8.0 (6.3-8.2) g/dL Albumin 4.8 (3.5-5.0) g/dL Globulin 3.2 (1.7-4.1) g/dL Albumin/Globulin Ratio 1.5 (1.0-2.8) Lipase 71 D (23-300) U/L Urine RBC None seen (0-5/HPF) Urine WBC None seen (0-5/HPF) Ur Squamous Epith Cells 5-10 /hpf H (0-5/HPF) Urine Bacteria Few (2-10) H (None) Ur Culture Indicated? Cult not indicated Vol Urine Centrifuged 10ml (spun) Urine Dip Bedside Urine Glucose Negative Bedside Urine Bilirubin - Negative Bedside Urine Ketone ++ 40 Urine Specific [place] 1.010 Bedside Urine Occult Blood - Negative Bedside Urine pH 6.0 Bedside Urine Protein - Negative Bedside Urine Urobilinogen - Negative Bedside Urine Nitrite - Negative Bedside Urine Leukocytes - Negative Esterase MDM Narrative Medical decision making narrative: 43-year-old female with nausea vomiting, numerous previous episodes abdominal pain, various workup specialists in the past unrevealing, more recently 03/08/2024 had urinary tract infection E coli, prescribed NTF then Bactrim, had some emesis after initial doses, partially/untreated. Feels that she cannot keep her medications down. Has had nausea vomiting and increasing right-sided flank pain since that time. Afebrile on triage, elevated blood pressure noted, not hypotensive, some tachycardia in setting of retching. IV Dilaudid, Reglan, Benadryl which seemed to help her last time. IV fluid bolus. Labs pending. White blood cell count [id number], CMP unremarkable, lipase normal, urinalysis not convincing for urinary tract infection even though patient apparently has not been taking her cefdinir for recent E coli UTI. She has persisting symptoms, we would like more pain medications. Patient appears frustrated for lack of definitive diagnosis, we discussed imaging, CT abdomen and pelvis ordered. Lab review, microbiology, 03/08/24 urine culture, showed 100,000 colonies E coli pansensitive. Patient was called in a prescription for nitrofurantoin, and then apparently that was switched to Bactrim which she is currently taking. CT abdomen pelvis IV contrast. Impressions: ?Diffuse circumferential wall thickening of the sigmoid colon possibly related to underdistention however, a mild colitis could also have this appearance. No pericolonic focal drainable collection or pneumoperitoneum. Bladder wall thickening suggesting cystitis or infection.? Teleradiology report. No ureteral stone or complex kidney findings described. Still nauseated, IV Compazine Still nauseated has received multiple antiemetics, she is afraid she can not keep oral antibiotics down, requests admission. Will contact hospitalist Case discussed with Dr. Barton, accepts patient for admission to observation Critical Care Time Critical Care Time Critical Care Time: Yes Total Critical Care Time: 35 Attestation: The high probability of a clinically significant, sudden or life threatening deterioration of the [genitourinary, abdominopelvic, gastrointestinal] system(s) required my full and direct attention, intervention and personal management. The aggregate critical care time was [35] minutes. This time is in addition to time spent performing reported procedures but includes the following: [x] Data Review and interpretation [x] Patient assessment and monitoring of vital signs [x] Documentation [x] Medication orders and management Discharge Plan Departure Patient Disposition: Admitted as Observation Clinical Impression: Intractable nausea and vomiting, History of urinary tract infection Abdominal pain Qualifiers: Abdominal location: unspecified location Qualified Code(s): R10.9 - Unspecified abdominal pain Admit Date/Time: 03/14/24 04:36 Admit Provider: Onesimo Barton
[2024-03-13] MEDS: HYDROMORPHONE 0.5 MG INJ IV (21:03)
[2024-03-13 21:05] LABS: Add Manual Diff / Slide Review NO; Basophils Absolute Auto 100 /uL (0-100); Basophils Percent Auto 0.5 % (0-2); Eosinophils Absolute Auto 0 /uL (0-450); Eosinophils Percent Auto 0.1 % (2-4); Hematocrit 38.3 % (36-46); Hemoglobin 13.1 g/dL (12.0-16.0); Lymphocytes Absolute Auto 1800 /uL (1100-4500); Lymphocytes Percent Auto 16.2 % (25-40); Mean Corpuscular HGB Conc 34.2 % (30-36); Mean Corpuscular Hemoglobin 28.6 PG (26-34); Mean Corpuscular Volume 83.8 fL (80-100); Monocytes Absolute Auto 700 /uL (0-900); Neutrophils Absolute Auto 8500 /uL (1500-7000); Neutrophils Percent Auto 77.2 % (50-75); Platelet Count 388 X10^3/uL (150-400); Red Blood Cell Count 4.57 X10^6/uL (4.0-5.2); Red Cell Distribution Width 14.6 % (11.6-14.8)
[2024-03-13] MEDS: METOCLOPRAMIDE 10 MG/2 ML INJ IV (21:07)
[2024-03-13] MEDS: SODIUM CHLORIDE 0.9% 1,000 ML 1000 ML IV (21:08)
[2024-03-13 21:14] LABS: Alanine Aminotransferase 35 IU/L (<35); Albumin 4.8 g/dL (3.5-5.0); Albumin Globulin Ratio 1.5 (1.0-2.8); Bilirubin Total 2.3 mg/dL (0.2-1.3); Blood Urea Nitrogen 9 mg/dL (7-17); Calcium 9.9 mg/dL (8.4-10.2); Carbon Dioxide 28 mmol/L (22-32); Chloride 102 mmol/L (98-107); Estimated Glomerular Filt Rate > 60 mL/min (>60); Globulin 3.2 g/dL (1.7-4.1); Glucose 109 mg/dL (70-100); Lipase 71 U/L (23-300); Sodium 138 mmol/L (137-145)
[2024-03-13 21:19] LABS: HEMOLYSIS 70 (0-50); Potassium 3.5 mmol/L (3.4-5.1)
[2024-03-13 21:20] LABS: Alkaline Phosphatase 66 U/L (38-126); Aspartate Aminotransferase 26 IU/L (14-36)
[2024-03-13] MEDS: diphenhydrAMINE 50 MG/ML VIAL IV (21:20)
[2024-03-13 23:19] LABS: Bacteria Urine Few (2-10); Culture Indicated Urine Cult Not Indicated; RBC Urine None Seen (0-5/HPF); Squamous Epithelial Cell Urine 5-10 /HPF (0-5/HPF); Urine Volume 10mL (spun); WBC Urine None Seen (0-5/HPF)
[2024-03-14] VITALS (40 sets, daily range): BP systolic 111–195; BP diastolic 61–97; PULSE 54–91; RESP 14–18; TEMP 36.9; O2SAT 94–100; BMI 32.5
--- NOTE | 2024-03-14 00:04 | DI.CT.S_ITS ---
PROCEDURE: CT ABDOMEN PELVIS W CON INDICATIONS: abdominal pain TECHNIQUE: After the administration of intravenous contrast, axial sections acquired from the lung bases to the pubic symphysis. Coronal and sagittal reformats were performed. For radiation dose reduction, the following was used: automated exposure control, adjustment of mA and/or kV according to patient size. COMPARISON: [facility], CT, CT ABDOMEN PELVIS W CON, 12/10/2023, 13:09. [facility], CT, CT ABDOMEN PELVIS W CON, 01/26/2024, 19:53. FINDINGS: Image quality: Diagnostic. Lower Chest: No significant findings. ABDOMEN: Liver: No solid mass. Hepatic steatosis liver measures 18 point cm. Focal area of anterior sparing is unchanged. Gallbladder: Visualized Biliary ducts: No biliary dilation. Pancreas: No ductal dilation. Spleen: Unchanged superior anterior partially cyst Adrenal Glands: No adrenal nodules. Kidneys and Ureters: No hydronephrosis. No solid mass. No complex renal cystic lesion which requires follow up. Stomach and Bowel: No obstruction. There is thickening within the left colon most significant in the sigmoid with scattered diverticula. Pericolonic stranding is present. In addition, more focal luminal narrowing is present in the distal sigmoid. This was not present on prior exam. No abscess. Postsurgical gastric changes are stable Peritoneum: No abnormal intraperitoneal fluid. No free air. Ventral Wall: No significant ventral hernia. Abdominal Nodes: No retroperitoneal or mesenteric adenopathy by size criteria. Vessels: Aorta and inferior vena cava are normal in size. PELVIS: Pelvic Organs: Unremarkable. Bladder: No bladder wall thickening, accounting for underdistention. Pelvic Nodes: No enlarged lymph nodes. Miscellaneous: No inguinal hernias are seen. Bones: No aggressive osseous abnormality. IMPRESSION: Predominantly left colonic thickening and inflammatory change with focal area of luminal narrowing most prominent in the sigmoid colon. Overall appearance is suggestive colitis likely secondary to diverticulitis. However, interval follow-up is recommended to document resolution particularly of the luminal narrowing in the distal sigmoid colon, to exclude presence of underlying mass, noting underlying mass is felt to be less likely given lack of appearance on prior exam 01/26/2024. Unchanged splenic cyst. The above findings are concordant with preliminary report. Dictated by: Gisselle Hernandes M.D. on 03/14/2024 at 7:54 Approved by: Gisselle Hernandes M.D. on 03/14/2024 at 7:58
[2024-03-14] MEDS: HYDROMORPHONE 0.5 MG INJ IV (00:33)
[2024-03-14] MEDS: PANTOPRAZOLE 40 MG VIAL IV (00:33)
[2024-03-14] MEDS: AMPICILLIN/SULBACTAM 3 GM 3 GM in SODIUM CHLORIDE 0.9% 100 ML IV (02:53)
[2024-03-14] MEDS: ONDANSETRON 4 MG ODT PO (03:26)
[2024-03-14] MEDS: METOCLOPRAMIDE 10 MG/2 ML INJ 5 MG IV ×4 (05:46→23:20)
[2024-03-14] MEDS: PROCHLORPERAZINE 10 MG/2 ML VIAL 5 MG IV (05:46)
[2024-03-14] MEDS: SODIUM CHLORIDE 0.9% 1,000 ML 125 ML IV (05:47)
[2024-03-14] MEDS: PANTOPRAZOLE DR 20 MG TABLET 40 MG PO (05:47)
--- NOTE | 2024-03-14 06:08 | PM.HP.1 ---
History of Present Illness History of Present Illness Date Patient Seen: 03/14/24 Time Patient Seen: 06:09 Chief complaint: N/V/D, poss sepsis Narrative: The pt is a 43 yo female with a hx of bipolar disorder and a partial gastrectomy in 2016 and since then has had recurrent episodes of N/V in a cyclical manner who started having what she describes as severe nausea with intractible vomiting on 03/08/24. She was seen in the ER and dx with a UTI and given Macrodantin. For unknown reasons she was switched to Bactrim the next day and returns to the ER with continued N/V. There has been no hematemesis, melana, hematochezia, fevers, chills, diarrhea. She denies any change to her home meds, no recent stress, denies recreational drug use. In April of 2023 she underwent an exp. lap which found a staple in her gut that was causing her N/V. [facility] Medical History Polycystic ovary disease Celiac disease GERD with apnea Hypertension Bipolar disorder Surgical History Status post tubal ligation History of section H/O abdominoplasty H/O oophorectomy H/O gastric sleeve History of cholecystectomy History of appendectomy Social History marital status: household members: significant other and children lives independently: Yes occupational status: employed Smoking Status: Never smoker alcohol intake: current substance use type: marijuana Meds Home Medications and Allergies Home Medications Medication Instructions Recorded Confirmed Type phentermine 37.5 mg tablet 37.5 mg PO DAILY 10/28/22 01/20/24 History alprazolam 0.5 mg tablet 0.5 mg PO BID PRN Anxiety 05/06/23 01/20/24 History hydrochlorothiazide 12.5 mg tablet 12.5 mg PO DAILY 05/06/23 01/20/24 History metformin 500 mg tablet,extended 500 mg PO DAILY 05/06/23 01/20/24 History release 24 hr topiramate 25 mg tablet 25 mg PO BID 10/14/23 01/20/24 History tramadol 50 mg tablet 50 mg PO Q8H PRN pain #14 tabs 10/21/23 01/20/24 Rx hydrocodone 5 mg-acetaminophen 325 1 tab PO Q6H PRN pain #12 tabs 12/10/23 01/20/24 Rx mg tablet ondansetron 4 mg disintegrating 4 mg PO Q8H PRN nausea and 12/10/23 01/20/24 Rx tablet vomiting #10 tabs cefdinir 300 mg capsule 300 mg PO BID #14 caps 01/20/24 01/20/24 Rx phenazopyridine 200 mg tablet 200 mg PO TID 6 doses #6 tabs 01/20/24 01/20/24 Rx (Pyridium) metoclopramide HCl 10 mg tablet 10 mg PO Q6H PRN nausea and 03/08/24 03/13/24 Rx (Reglan) vomiting #30 tabs nitrofurantoin 100 mg PO Q12H 5 days #10 caps 03/10/24 Rx monohydrate/macrocrystals 100 mg capsule (Macrobid) Allergies Allergy/AdvReac Type Severity Reaction Status Date / Time gluten Allergy Celiac Verified 03/13/24 19:07 coconut AdvReac Intermediate Hives Verified 03/13/24 19:07 NSAIDS (Non-Steroidal AdvReac Mild Gastrointestinal Verified 03/13/24 19:07 Anti-Inflamma Upset benzonatate AdvReac Unknown Hives Verified 03/13/24 19:07 [From Tessalon Perles] escitalopram [From Lexapro] AdvReac Unknown Hallucinati Verified 03/13/24 19:07 ng Exam Vital Signs (past 8 hours): Oxygen Delivery Method Room Air Const General: cooperative and comfortable Resp Auscultation: clear to auscultation bilaterally Cardio Rate: regular rate Rhythm: regular rhythm GI Inspection: normal to inspection Auscultation: normal bowel sounds Objective Labs 03/13/24 20:43 03/13/24 20:43 Labs: Laboratory Results - last 24 hr 03/13/24 03/13/24 20:43 22:53 WBC 11.0 RBC 4.57 Hgb 13.1 Hct 38.3 MCV 83.8 MCH 28.6 MCHC 34.2 RDW 14.6 Plt Count 388 Neut % (Auto) 77.2 H Lymph % (Auto) 16.2 L [place] % (Auto) 6.0 Eos % (Auto) 0.1 L Baso % (Auto) 0.5 Neut # (Auto) 8500 H Lymph # (Auto) 1800 [place] # (Auto) 700 Eos # (Auto) 0 Baso # (Auto) 100 Sodium 138 Potassium 3.5 Chloride 102 Carbon Dioxide 28 BUN 9 Creatinine 0.45 L Estimated GFR > 60 BUN/Creatinine Ratio 20.0 Glucose 109 H Calcium 9.9 Total Bilirubin 2.3 H AST 26 ALT 35 H Alkaline Phosphatase 66 Total Protein 8.0 Albumin 4.8 Globulin 3.2 Albumin/Globulin Ratio 1.5 Lipase 71 D Urine RBC None seen Urine WBC None seen Ur Squamous Epith Cells 5-10 /hpf H Urine Bacteria Few (2-10) H Ur Culture Indicated? Cult not indicated Vol Urine Centrifuged 10ml (spun) Assessment & Plan Assessment & Plan narrative: 1. Intractable nausea / vomiting- I have discussed the pt's history, presenting symptoms and labs with the ER provider and agree with the decision for admission. I have personnally reviewed the labs, all of which are negative. Will start the pt on IVF of NS, antiemetics of zofran and phenergan ordered prn and scheduled reglan. checking UDS and test. This does appear to be similar to cyclical vomiting syndrome. We did discuss GI referral for endoscopy as an outpt, The pt has suffered with this since 2017 and strongly recommend referral to [facility]. Time-Based Coding :: [TOTAL MINUTES] spent with patient and on the chart (including review of chart, obtaining history, exam, reviewing outside data, placing orders, documenting exam and treatment plan, and counseling patient) on [DATE].
[2024-03-14] MEDS: HYDROMORPHONE 1 MG INJ IV ×4 (06:29→23:12)
--- NOTE | 2024-03-14 07:17 | P.HP_ITS ---
History of Present Illness History of Present Illness Date Patient Seen: 03/14/24 Time Patient Seen: 10:30 Date of Onset of Symptoms: 03/08/24 Chief complaint: N/V/D, poss sepsis Narrative: Narrative: The pt is a 43 yo female with a hx of bipolar disorder and a partial gastrectomy in 2016 and since then has had recurrent episodes of N/V in a cyclical manner who started having what she describes as severe nausea with intractible vomiting on 03/08/24. She was seen in the ER and dx with a UTI and given Macrodantin. For unknown reasons she was switched to Bactrim the next day and returns to the ER with continued N/V. There has been no hematemesis, melana, hematochezia, fevers, chills, diarrhea. She denies any change to her home meds, no recent stress, denies recreational drug use. In April of 2023 she underwent an exp. lap which found a staple in her gut that was causing her N/V. Update: The patient reports that she had similar episodes but none for a year until this current presentation. She has seen a neurologist and was told that this was not a neurologic syndrome. She has been referred by her primary care provider for another opinion. She states that she has associated headache and ?sparkly lights in her visual field when she feels nausea coming on. While in the emergency department she noticed new onset of left eye pain. She had just taken her contact lenses out. [facility] Medical History (Updated 03/14/24 @ 12:21 by Tai Cage MD) Left corneal abrasion Headache Polycystic ovary disease Celiac disease GERD with apnea Hypertension Bipolar disorder Surgical History Status post tubal ligation History of section H/O abdominoplasty H/O oophorectomy H/O gastric sleeve History of cholecystectomy History of appendectomy Social History marital status: household members: significant other and children lives independently: Yes occupational status: employed Smoking Status: Never smoker alcohol intake: current substance use type: marijuana Meds Home Medications and Allergies Home Medications Medication Instructions Recorded Confirmed Type phentermine 37.5 mg tablet 37.5 mg PO DAILY 10/28/22 01/20/24 History alprazolam 0.5 mg tablet 0.5 mg PO BID PRN Anxiety 05/06/23 01/20/24 History hydrochlorothiazide 12.5 mg tablet 12.5 mg PO DAILY 05/06/23 01/20/24 History metformin 500 mg tablet,extended 500 mg PO DAILY 05/06/23 01/20/24 History release 24 hr topiramate 25 mg tablet 25 mg PO BID 10/14/23 01/20/24 History tramadol 50 mg tablet 50 mg PO Q8H PRN pain #14 tabs 10/21/23 01/20/24 Rx hydrocodone 5 mg-acetaminophen 325 1 tab PO Q6H PRN pain #12 tabs 12/10/23 01/20/24 Rx mg tablet ondansetron 4 mg disintegrating 4 mg PO Q8H PRN nausea and 12/10/23 01/20/24 Rx tablet vomiting #10 tabs cefdinir 300 mg capsule 300 mg PO BID #14 caps 01/20/24 01/20/24 Rx phenazopyridine 200 mg tablet 200 mg PO TID 6 doses #6 tabs 01/20/24 01/20/24 Rx (Pyridium) metoclopramide HCl 10 mg tablet 10 mg PO Q6H PRN nausea and 03/08/24 03/13/24 Rx (Reglan) vomiting #30 tabs nitrofurantoin 100 mg PO Q12H 5 days #10 caps 03/10/24 Rx monohydrate/macrocrystals 100 mg capsule (Macrobid) Allergies Allergy/AdvReac Type Severity Reaction Status Date / Time gluten Allergy Celiac Verified 03/13/24 19:07 coconut AdvReac Intermediate Hives Verified 03/13/24 19:07 NSAIDS (Non-Steroidal AdvReac Mild Gastrointestinal Verified 03/13/24 19:07 Anti-Inflamma Upset benzonatate AdvReac Unknown Hives Verified 03/13/24 19:07 [From Tessalon Perles] escitalopram [From Lexapro] AdvReac Unknown Hallucinati Verified 03/13/24 19:07 ng Review of Systems Review of Systems ROS: Yes All systems reviewed with the patient and are negative except as otherwise documented Exam Vital Signs (past 8 hours): - 03/13/24 23:53 03/13/24 23:53 03/14/24 00:00 Pulse Rate 88 Blood Pressure 152/67 H 131/61 Pulse Oximetry 99 03/14/24 00:00 03/14/24 00:00 03/14/24 00:13 Pulse Rate 64 Blood Pressure 131/61 135/80 Pulse Oximetry 96 03/14/24 00:13 03/14/24 00:30 03/14/24 00:31 Pulse Rate 80 79 83 Blood Pressure Pulse Oximetry 100 99 99 03/14/24 00:31 03/14/24 01:00 03/14/24 01:00 Pulse Rate 70 Blood Pressure 144/68 H 124/86 Pulse Oximetry 98 03/14/24 01:30 03/14/24 01:30 03/14/24 02:05 Pulse Rate 91 H 78 Blood Pressure 138/80 Pulse Oximetry 99 99 03/14/24 02:06 03/14/24 02:06 03/14/24 02:30 Pulse Rate 73 Blood Pressure 132/80 111/64 Pulse Oximetry 99 03/14/24 02:30 03/14/24 03:00 03/14/24 03:00 Pulse Rate 58 L 58 L Blood Pressure 116/76 Pulse Oximetry 95 98 03/14/24 03:30 03/14/24 03:31 03/14/24 03:31 Pulse Rate 67 67 Blood Pressure 163/82 H Pulse Oximetry 99 99 03/14/24 04:00 03/14/24 04:01 03/14/24 04:01 Pulse Rate 60 60 Blood Pressure 171/77 H Pulse Oximetry 98 97 03/14/24 04:30 03/14/24 04:31 03/14/24 04:31 Pulse Rate 70 70 Blood Pressure 157/94 H Pulse Oximetry 98 97 03/14/24 05:00 03/14/24 05:00 03/14/24 05:30 Pulse Rate 72 72 Blood Pressure 154/97 H Pulse Oximetry 98 99 03/14/24 05:31 03/14/24 05:31 03/14/24 06:00 Pulse Rate 69 81 Blood Pressure 144/87 H Pulse Oximetry 100 97 03/14/24 06:01 03/14/24 06:01 03/14/24 06:30 Pulse Rate 81 67 Blood Pressure 195/90 H Pulse Oximetry 97 95 03/14/24 06:31 03/14/24 06:31 03/14/24 07:00 Pulse Rate 67 Blood Pressure 141/65 H 136/65 Pulse Oximetry 98 03/14/24 07:00 Pulse Rate 76 Blood Pressure Pulse Oximetry 96 Oxygen Delivery Method Room Air Narrative Exam Narrative: GENERAL: This is a well-nourished, well-developed patient, in no apparent distress. HEAD: Atraumatic. Normocephalic. No temporal or scalp tenderness. EYES: Pupils equal round and reactive. Extraocular motions intact. mild left conjunctival injection. Using Wick lamp with fluorescein dye and topical anesthesia, a 1 mm round non-dendritic corneal ulcer is noted at the 3 o'clock position located approximately half-way between central pupil and corneal border. ENT: Mucous membranes pink and moist. NECK: Trachea midline. No JVD, bruits or lymphadenopathy. Supple, nontender, no meningeal signs. CARDIOVASCULAR: Regular rate and rhythm without murmurs, gallops, or rubs. RESPIRATORY: Clear to auscultation. GASTROINTESTINAL: Abdomen soft, non-tender, nondistended. EXTREMITIES: No clubbing, cyanosis, or edema. BACK: Nontender without deformity or crepitance. No flank tenderness. NEUROLOGIC: Alert, oriented, speech fluent, full upper and lower motor strength, no focal deficits evident. DERMATOLOGIC: No rashes or skin lesions. Objective Imaging CT scan - abdomen: Radiologist's impression: Predominantly left colonic thickening and inflammatory change with focal area of luminal narrowing most prominent in the sigmoid colon. Overall appearance is suggestive colitis likely secondary to diverticulitis. However, interval follow-up is recommended to document resolution particularly of the luminal narrowing in the distal sigmoid colon, to exclude presence of underlying mass, noting underlying mass is felt to be less likely given lack of appearance on prior exam 01/26/2024. Unchanged splenic cyst. Labs 03/13/24 20:43 03/13/24 20:43 Labs: Laboratory Results - last 24 hr 03/13/24 03/13/24 20:43 22:53 WBC 11.0 RBC 4.57 Hgb 13.1 Hct 38.3 MCV 83.8 MCH 28.6 MCHC 34.2 RDW 14.6 Plt Count 388 Neut % (Auto) 77.2 H Lymph % (Auto) 16.2 L [place] % (Auto) 6.0 Eos % (Auto) 0.1 L Baso % (Auto) 0.5 Neut # (Auto) 8500 H Lymph # (Auto) 1800 [place] # (Auto) 700 Eos # (Auto) 0 Baso # (Auto) 100 Sodium 138 Potassium 3.5 Chloride 102 Carbon Dioxide 28 BUN 9 Creatinine 0.45 L Estimated GFR > 60 BUN/Creatinine Ratio 20.0 Glucose 109 H Calcium 9.9 Total Bilirubin 2.3 H AST 26 ALT 35 H Alkaline Phosphatase 66 Total Protein 8.0 Albumin 4.8 Globulin 3.2 Albumin/Globulin Ratio 1.5 Lipase 71 D Urine RBC None seen Urine WBC None seen Ur Squamous Epith Cells 5-10 /hpf H Urine Bacteria Few (2-10) H Ur Culture Indicated? Cult not indicated Vol Urine Centrifuged 10ml (spun) Assessment & Plan Assessment and plan (1) Intractable nausea and vomiting: Status: Acute (2) Abdominal pain: Qualifiers: Abdominal location: unspecified location Qualified Code(s): R10.9 - Unspecified abdominal pain Status: Acute (3) Headache: Qualifiers: Headache type: unspecified Headache chronicity pattern: unspecified pattern Intractability: not intractable Qualified Code(s): R51.9 - Headache, unspecified Status: Acute (4) History of appendectomy: Status: Acute (5) History of cholecystectomy: Status: Acute (6) H/O gastric sleeve: Status: Acute (7) H/O oophorectomy: Problem details: Left Status: Acute (8) Bipolar disorder: Status: Acute (9) Hypertension: Qualifiers: Hypertension type: unspecified Qualified Code(s): I10 - Essential (primary) hypertension Status: Acute (10) Polycystic ovary disease: Status: Acute (11) Celiac disease: Status: Acute (12) Left corneal abrasion: Qualifiers: Encounter type: initial encounter Qualified Code(s): S05.02XA - Injury of conjunctiva and corneal abrasion without foreign body, left eye, initial encounter Status: Acute Plan 43-year-old woman with history of nausea and vomiting, headache and visual aura symptoms over the past few years, doing well until 1 week ago without similar episodes for about 1 year, developed recurrent symptoms. She also has an incidental finding of a left corneal abrasion. Her CT scan suggested possible diverticulitis though she has no suggestive symptoms on exam, and all of her symptoms appear to be upper gastrointestinal with bilious emesis. Consider possible gastrointestinal migraine. Start sumatriptan subcutaneously. Hydrate intravenously. Treat corneal abrasion with topical antibiotics. Admit to hospital for IV hydration and management. Time-Based Coding :: [TOTAL MINUTES] spent with patient and on the chart (including review of chart, obtaining history, exam, reviewing outside data, placing orders, documenting exam and treatment plan, and counseling patient) on [DATE]. Quality MIPS - Admit I confirm the patient?s Advance Care Plan is present, Code status is documented, Surrogate decision maker is in patient?s record [If Yes, STOP here]: Yes [facility] - Meds 'Current medications' to include all prescriptions, [id number] products, herbals, cannabis/cannabidiol products, and vitamin/mineral/dietary (nutritional) supplements. I have utilized all available resources to obtain, update, or review the patient?s current medications. [If Yes, STOP here]: Yes [facility] Charge Codes Initial inpatient/observation care: [id number]
[2024-03-14] MEDS: ENOXAPARIN 40 MG/0.4 ML SYRINGE SUBCUT (10:01)
[2024-03-14] MEDS: ACETAMINOPHEN 325 MG TABLET 650 MG PO (10:04)
[2024-03-14] MEDS: PROPARACAINE 0.5% OPHTH SOL 1 DROPS EYE-LEFT (10:58)
[2024-03-14] MEDS: FLUORESCEIN 1 MG STRIP EYE-LEFT (10:59)
[2024-03-14] MEDS: TOPIRAMATE 25 MG TABLET PO ×2 (11:22→20:14)
--- NOTE | 2024-03-14 11:28 | PC.NURSE ---
patient has a left eye corneal abrasions on exam from MD. She states that the local anesthesia eye drops helped her pain but her vision is blurry.
[2024-03-14] MEDS: DEXTROSE 5%-0.45% NS 1,000 ML 100 ML IV ×2 (12:47→23:30)
[2024-03-14] MEDS: SUMAtriptan 6 MG/0.5 ML VIAL SUBCUT ×2 (14:41→19:00)
[2024-03-14] MEDS: OFLOXACIN 0.3% OPHTH 5 ML 1 DROPS EYE-LEFT ×2 (17:05→22:00)
[2024-03-14] MEDS: SODIUM CHLORIDE 0.9% FLUSH 10 ML IV (20:14)
[2024-03-15] VITALS: BP 151/91; PULSE 69; RESP 19; TEMP 36.8; O2SAT 95
[2024-03-15 04:00] VITALS: BP 144/87; PULSE 65; RESP 17; TEMP 36.9; O2SAT 97
[2024-03-15] MEDS: PANTOPRAZOLE DR 20 MG TABLET 40 MG PO (05:00)
[2024-03-15] MEDS: METOCLOPRAMIDE 10 MG/2 ML INJ 5 MG IV (05:00)
[2024-03-15] MEDS: HYDROMORPHONE 1 MG INJ IV ×2 (05:00→08:23)
[2024-03-15] MEDS: OFLOXACIN 0.3% OPHTH 5 ML 1 DROPS EYE-LEFT ×2 (05:03→11:50)
[2024-03-15 05:38] LABS: Add Manual Diff / Slide Review NO; Basophils Absolute Auto 100 /uL (0-100); Basophils Percent Auto 0.5 % (0-2); Eosinophils Absolute Auto 200 /uL (0-450); Eosinophils Percent Auto 2.1 % (2-4); Hematocrit 31.9 % (36-46); Hemoglobin 10.9 g/dL (12.0-16.0); Lymphocytes Absolute Auto 3700 /uL (1100-4500); Lymphocytes Percent Auto 37.6 % (25-40); Mean Corpuscular HGB Conc 34.1 % (30-36); Mean Corpuscular Hemoglobin 28.7 PG (26-34); Mean Corpuscular Volume 84.1 fL (80-100); Monocytes Absolute Auto 900 /uL (0-900); Monocytes Percent Auto 9.6 % (3-14); Neutrophils Absolute Auto 4900 /uL (1500-7000); Neutrophils Percent Auto 50.2 % (50-75); Platelet Count 277 X10^3/uL (150-400); Red Cell Distribution Width 14.5 % (11.6-14.8); White Blood Cell Count 9.7 X10^3/uL (4.5-11.0)
[2024-03-15 05:43] LABS: Alanine Aminotransferase 23 IU/L (<35); Albumin 3.4 g/dL (3.5-5.0); Albumin Globulin Ratio 1.3 (1.0-2.8); Alkaline Phosphatase 54 U/L (38-126); Aspartate Aminotransferase 17 IU/L (14-36); Bilirubin Total 1.2 mg/dL (0.2-1.3); Calcium 8.1 mg/dL (8.4-10.2); Carbon Dioxide 29 mmol/L (22-32); Chloride 104 mmol/L (98-107); Estimated Glomerular Filt Rate > 60 mL/min (>60); Globulin 2.6 g/dL (1.7-4.1); Glucose 94 mg/dL (70-100); HEMOLYSIS < 15 (0-50); Magnesium 1.8 mg/dL (1.6-2.3); Sodium 137 mmol/L (137-145)
[2024-03-15 05:53] LABS: BUN Creatinine Ratio 4.9 (6-22); Blood Urea Nitrogen < 2 mg/dL (7-17)
[2024-03-15 05:56] LABS: Potassium 2.7 mmol/L (3.4-5.1)
[2024-03-15 08:00] VITALS: BP 130/78; PULSE 68; RESP 18; TEMP 36.8; O2SAT 98
[2024-03-15] MEDS: ENOXAPARIN 40 MG/0.4 ML SYRINGE SUBCUT (08:22)
[2024-03-15] MEDS: ONDANSETRON 4 MG/2 ML INJ IV (08:22)
[2024-03-15] MEDS: TOPIRAMATE 25 MG TABLET PO (08:37)
[2024-03-15] MEDS: METFORMIN XR 500 MG TABLET PO (08:37)
[2024-03-15] MEDS: DEXTROSE 5%-0.45% NS 1,000 ML 100 ML IV (10:07)
[2024-03-15] MEDS: SODIUM CHLORIDE 0.9% FLUSH 10 ML IV (10:09)
--- NOTE | 2024-03-15 10:43 | P.DS_ITS ---
History of Present Illness History of Present Illness Date Patient Seen: 03/15/24 Time Patient Seen: 10:30 Date of Onset of Symptoms: 03/08/24 Chief complaint: N/V/D, poss sepsis Narrative: Per admitting provider, The pt is a 43 yo female with a hx of bipolar disorder and a partial gastrectomy in 2016 and since then has had recurrent episodes of N/V in a cyclical manner who started having what she describes as severe nausea with intractible vomiting on 03/08/24. She was seen in the ER and dx with a UTI and given Macrodantin. For unknown reasons she was switched to Bactrim the next day and returns to the ER with continued N/V. There has been no hematemesis, melana, hematochezia, fevers, chills, diarrhea. She denies any change to her home meds, no recent stress, denies recreational drug use. In April of 2023 she underwent an exp. lap which found a staple in her gut that was causing her N/V. Update: The patient reports that she had similar episodes but none for a year until this current presentation. She has seen a neurologist and was told that this was not a neurologic syndrome. She has been referred by her primary care provider for another opinion. She states that she has associated headache and ?sparkly lights in her visual field when she feels nausea coming on. While in the emergency department she noticed new onset of left eye pain. She had just taken her contact lenses out. Discharge Providers Provider Date of admission: 03/14/24 04:36 Discharge Date: 03/15/24 Primary care physician: Crow Burgos MD Discharge provider: Wiliam Gutierrez DO Summary Hospital Course Discharge Diagnosis: 1. probable abdominal migraine, nausea and vomiting. 2.H/O gastric sleeve: 3. H/O oophorectomy: 4. Bipolar disorder: 5. Hypertension: 6 Polycystic ovary disease: 7Celiac disease: 8 Left corneal abrasion: Hospital Course: 43 year old female with history of gastric sleeve, Bipolar disorder, HTN, PCOS who was admitted with intractable nausea and vomiting. She was also started on antibiotic eye drops for a corneal abrasion likely due to contacts given above history. She has a history of episodic abdominal pain, this time also with visual symptoms but no headache. She did have improvement with sumatriptan. Etiology for her symptoms could be new injectable weight loss medications or abdominal migraine, with the latter being more probable. Patient already is on topiramate, last episode was about a year ago with nausea and vomiting. We discussed possible increase of topiramate, or staying the same with additional sumatriptan as needed. She elected to have additional sumatriptan to see if this is helpful if symptom recurrence. If there is recurrence with injectable weight loss medication this is also possibly a cause. For her abrasion she was given ofloxacin eye drops to continue for another 7 days. Time Spent with Patient Time spent: Greater than 30 minutes Exam Vital Signs (past 8 hours): - 03/15/24 04:00 03/15/24 08:00 Temperature 98.5 F 98.2 F Pulse Rate 65 68 Respiratory Rate 17 18 Blood Pressure 144/87 H 130/78 Pulse Oximetry 97 98 Oxygen Flow Rate 0 Oxygen Delivery Method Room Air Oxygen Flow Rate 0 Narrative Exam Narrative: GENERAL: This is a well-nourished, well-developed patient, in no apparent distress. GASTROINTESTINAL: Abdomen soft, non-tender, nondistended. EXTREMITIES: No clubbing, cyanosis, or edema. NEUROLOGIC: Alert, oriented, speech fluent, full upper and lower motor strength, no focal deficits evident. Objective Labs 03/15/24 04:45 03/15/24 04:45 Labs: Laboratory Results - last 24 hr 03/15/24 04:45 WBC 9.7 RBC 3.80 L Hgb 10.9 L Hct 31.9 L MCV 84.1 MCH 28.7 MCHC 34.1 RDW 14.5 Plt Count 277 Neut % (Auto) 50.2 D Lymph % (Auto) 37.6 D [place] % (Auto) 9.6 Eos % (Auto) 2.1 Baso % (Auto) 0.5 Neut # (Auto) 4900 Lymph # (Auto) 3700 [place] # (Auto) 900 Eos # (Auto) 200 Baso # (Auto) 100 Sodium 137 Potassium 2.7 L* Chloride 104 Carbon Dioxide 29 BUN < 2 L Creatinine 0.41 L Estimated GFR > 60 BUN/Creatinine Ratio 4.9 L Glucose 94 Calcium 8.1 L Magnesium 1.8 Total Bilirubin 1.2 AST 17 ALT 23 Alkaline Phosphatase 54 Total Protein 6.0 L Albumin 3.4 L Globulin 2.6 Albumin/Globulin Ratio 1.3 [facility] Medical History (Updated 03/14/24 @ 12:21 by Tai Cage MD) Left corneal abrasion Headache Polycystic ovary disease Celiac disease GERD with apnea Hypertension Bipolar disorder Surgical History Status post tubal ligation History of section H/O abdominoplasty H/O oophorectomy H/O gastric sleeve History of cholecystectomy History of appendectomy Social History marital status: household members: significant other and children lives independently: Yes occupational status: employed Smoking Status: Never smoker alcohol intake: current substance use type: marijuana Discharge Plan Discharge Plan Patient Disposition: Home Provider Discharge Comment: You were admitted to the hospital with vomiting. Improved with imitrex. Continue topiramate which can be used for migraine, this can also be increased if you notice more headaches. Both oral pill and injectable imitrex (sumatriptan is the generic) was sent to be taken as needed. Continue to take reglan with meals for 2-3 more days, then change to as needed. If this recurs with future injections of your weight loss medications you may need to stop. Keep in mind these medications last for about a week so resolution may take time. Discharge orders & Medications Prescriptions: New ofloxacin 0.3 % Drops 1 drp EYE-LEFT 5XD 7 Days Qty: 10 0RF sumatriptan succinate 50 mg tablet See Rx Instructions .ROUTE .COMPLEX 30 Days Qty: 9 0RF Rx Instructions: take 1 tab at onset of headache; if no relief may repeat 1 tab after at least 2 hrs; max = 4 tabs/24 hr sumatriptan succinate 6 mg/0.5 mL pen injector 6 mg SUBCUT Q1-4H Qty: 1 0RF hydromorphone 2 mg tablet 2 mg PO Q4-6H PRN (Reason: pain) 7 Days Qty: 20 0RF Continued topiramate 25 mg tablet 25 mg PO BID phentermine 37.5 mg tablet 37.5 mg PO DAILY Patient Comments: 1 tablet by mouth every morning BEFORE BREAKFAST alprazolam 0.5 mg tablet 0.5 mg PO BID PRN (Reason: Anxiety) metformin 500 mg tablet extended release 24 hr 500 mg PO DAILY Patient Comments: hasn't started yet, waiting for pharmacy metoclopramide HCl [Reglan] 10 mg tablet 10 mg PO Q6H PRN (Reason: nausea and vomiting) Qty: 30 0RF Follow up/Referrals: Crow Burgos MD [Primary Care Provider] - Diet/Activity/Treatments Diet: Diet as Tolerated and Regular Activity: As tolerated, no restrictions. Visit Report/Discharge Packet Instructions: Sumatriptan, Sumatriptan Injection Stand Alone Forms: Patient Portal/API, Stroke Signs & Symptoms Discharge Data Primary Care Provider: Crow Burgos Attending Provider: Onesimo Barton Admit Date/Time: 03/14/24 04:36 Quality VTE Deep Vein Thrombosis/Pulmonary Embolism Present on Admission: No
[2024-03-15] MEDS: POTASSIUM CHLORIDE 20 MEQ TAB 40 MEQ PO (11:34)
--- NOTE | 2024-03-15 14:28 | CM.DANOTE ---
DCP Assessment note pt is a 43yo F here with intractable nausea and vomiting and abdominal pain PCP Crow Burgos Payer self pay ACCOUNTS PAYABLE ACCOUNTANT reviewed EMR. Per hospitalist in morning rounds, likely to dc home today. Per chart, pt has spouse and dtr support at home. Per Britt from admitting counseling group, pt is self pay due to having only active Medicare pt A only. Pt's part B termed on 02/06/24. Britt working on getting her financial assistance application. ACCOUNTS PAYABLE ACCOUNTANT entered room and introduced self and role. ACCOUNTS PAYABLE ACCOUNTANT gave pt copy of financial assistance sammie due to pt leaving soon. Eager to call Medicare contact and see why it was termed. Pt appreciative and will complete financial assistance sammie johnnie. Pt denies any other CM needs at this time. P: pt discharge home today with spouse support. CM team will follow as needed GIO Mercer Discharge Planning/Care Management CM Discharge Assessment Start: 03/15/24 14:27 Freq: Status: Active Protocol: Document 03/15/24 14:28 (Rec: 03/15/24 14:28 [id number]) Discharge Planning Assessment Assigned Supervisor [employer]ic [employer] GIO Barraza DPOA/Assigned Designee Name Jesus spouse Contact Information [phone] Advance Directives? No History Provided By Patient,Medical Record Prior Living Arrangements House Household Members significant other,children Type of transporation used prior to Drives own vehicle admit Independent with ADL's Yes Is patient alert and oriented? Yes Barriers to Discharge No Comment Home w/ S.O. expected Discharge Plan Home Transportation Arrangement S.O. Referrals Initiated None needed Review Status In Process Please Provide Date Initial DC 03/15/24 Assessment Was Performed Next Review Type Continued Stay Review
== END 2024-03-15 12:09 | disposition home or self-care (01) ==
LOC: ED 22:18 → AC 03-14 04:36
PROVIDERS: Admitting Provider Internal Medicine; Emergency Provider Emergency Medicine; PCP Internal Medicine; Visit Provider Internal Medicine
DX: R11.2 Nausea with vomiting, unspecified (principal); R10.9 Unspecified abdominal pain; R51.9 Headache, unspecified; S05.02XA Injury of conjunctiva and corneal abrasion without foreign body, left eye, initial encounter; Z90.3 Acquired absence of stomach [part of]; I10 Essential (primary) hypertension; E28.2 Polycystic ovarian syndrome; K90.0 Celiac disease
CPT/HCPCS: 36415; 74177; 80053; 81003; 81015; 82962; 83036; 83690; 83735; 85025; 96361; 96365; 96372; 96375; 96376; 99284; G0378; J0295; J0780; J1170; J1200; J1650; J2405; J2470; J2765; J3030; Q9967

== ENCOUNTER 2024-03-31 06:49 | Observation (INO) | payer SELFPAY ==
[2024-03-14 12:36] VITALS: BMI 32.5
[2024-03-31] VITALS (32 sets, daily range): BP systolic 113–211; BP diastolic 68–106; PULSE 72–96; RESP 17–18; TEMP 36.7–36.9; O2SAT 96–100; BMI 30.7
--- NOTE | 2024-03-31 07:16 | ED_ITS ---
HPI - Nausea/Vomiting/Diarrhea General Chief complaint: Abdominal Pain Stated complaint: abd pain, v/d/n Time Seen by Provider: 03/31/24 06:50 History of Present Illness HPI Narrative: 43-year-old female with history of bipolar disorder, history of gastric bypass in 2017 presents by private vehicle from home for 4 days of nausea, vomiting, periumbilical abdominal pain. Patient states that she was seen here approximately 3 weeks ago for exact same complaint, diagnosed with ?abdominal migraine? and admitted for antiemetics and fluids. Patient states that she was discharged on Reglan and Imitrex, which temporarily helped her symptoms, however the Imitrex is no longer working and she was not been able to keep anything down for the last 2 days. States that she has a GI appointment upcoming next month, but has not been able to see a GI doctor since her discharge from the hospital on 03/15/2024 Related Data Home Medications Medication Instructions Recorded Confirmed phentermine 37.5 mg tablet 37.5 mg PO DAILY 10/28/22 03/14/24 alprazolam 0.5 mg tablet 0.5 mg PO BID PRN Anxiety 05/06/23 03/14/24 metformin 500 mg tablet,extended 500 mg PO DAILY 05/06/23 03/14/24 release 24 hr topiramate 25 mg tablet 25 mg PO BID 10/14/23 03/14/24 Previous Rx's Medication Instructions Recorded metoclopramide HCl 10 mg tablet 10 mg PO Q6H PRN nausea and 03/08/24 (Reglan) vomiting #30 tabs sumatriptan succinate 50 mg tablet See Rx Instructions PO .COMPLEX 30 03/15/24 days #9 tabs sumatriptan succinate 6 mg/0.5 mL 6 mg (0.5 mL) SUBCUT Q1-4H #1 mL 03/15/24 subcutaneous pen injector Allergies Allergy/AdvReac Type Severity Reaction Status Date / Time gluten Allergy Celiac Verified 03/13/24 19:07 coconut AdvReac Intermediate Hives Verified 03/13/24 19:07 NSAIDS (Non-Steroidal AdvReac Mild Gastrointestinal Verified 03/13/24 19:07 Anti-Inflamma Upset benzonatate AdvReac Unknown Hives Verified 03/13/24 19:07 [From Tessalon Perles] escitalopram [From Lexapro] AdvReac Unknown Hallucinati Verified 03/13/24 19:07 ng Review of Systems Review of Systems Narrative: See HPI Patient History Medical History Left corneal abrasion Headache Polycystic ovary disease Celiac disease GERD with apnea Hypertension Bipolar disorder Surgical History Status post tubal ligation History of section H/O abdominoplasty H/O oophorectomy H/O gastric sleeve History of cholecystectomy History of appendectomy Social History marital status: household members: significant other and children lives independently: Yes occupational status: employed Smoking Status: Never smoker alcohol intake: current substance use type: marijuana Smoking Status: Never smoker alcohol intake frequency: holidays/special occasions only Substance Use Type: marijuana Exam Initial Vital Signs Initial Vital Signs: Vital Signs Temperature 98.5 F 03/31/24 07:10 Pulse Rate 86 03/31/24 07:10 Respiratory Rate 18 03/31/24 07:10 Blood Pressure 163/93 H 03/31/24 07:10 Pulse Oximetry 98 03/31/24 07:10 Oxygen Delivery Method Room Air 03/31/24 07:10 Const: Awake, alert, tearful, nontoxic appearing Cardiac: regular rate, regular rhythm RESP: unlabored, clear bilaterally, no wheezing GI: Soft, generalized tenderness to deep palpation without rebound or guarding Skin: Warm, Dry, intact, no rashes Neuro: AO x3, CN II-XII grossly intact, moves all extremities Course Orders Ordered: ED Orders 03/31/24 07:18 CBC Auto Diff [Complete Blood Count AUTO DIFF] Stat CMP [Comprehensive Metabolic Panel] Stat Lactate (Lactic Acid) Stat MAG [Magnesium] Stat 03/31/24 08:09 EKG-12 Lead Stat 03/31/24 09:15 CT abdomen pelvis w con Stat 03/31/24 10:13 Ictotest Urine Stat UA Complete [Urinalysis and Microscopic] Stat Urine Drug Screen, Rapid Stat Discontinued Medications Amitriptyline HCl (Amitriptyline 25 Mg Tablet) 75 mg PO NOW ONE Stop: 03/31/24 10:24 Last Admin: 03/31/24 10:33 Dose: 75 mg Documented By: RB Diazepam (Diazepam 10 Mg/2 Ml Syringe) 2 mg IV NOW ONE Stop: 03/31/24 10:50 Diphenhydramine HCl (Diphenhydramine 50 Mg/Ml Vial) 50 mg IV NOW ONE Stop: 03/31/24 07:15 Last Admin: 03/31/24 07:45 Dose: 50 mg Documented By: RB Droperidol (Droperidol 5 Mg/2 Ml Vial) 2.5 mg IV NOW ONE Stop: 03/31/24 07:15 Last Admin: 03/31/24 07:45 Dose: 2.5 mg Documented By: RB Droperidol (Droperidol 5 Mg/2 Ml Vial) 2.5 mg IV NOW ONE Stop: 03/31/24 08:25 Last Admin: 03/31/24 08:30 Dose: 2.5 mg Documented By: RB Sodium Chloride (Normal Saline 0.9%) 1,000 mls @ 1,000 mls/hr IV BOLUS ONE Stop: 03/31/24 08:13 Last Infusion: 03/31/24 09:22 Dose: Infused Documented By: Admin: 03/31/24 07:44 Dose: 1,000 mls/hr Documented By: RB Ketorolac Tromethamine (Ketorolac 30 Mg/Ml Vial) 15 mg IV NOW ONE Stop: 03/31/24 09:16 Last Admin: 03/31/24 09:23 Dose: 15 mg Documented By: RB Metoclopramide HCl (Metoclopramide 10 Mg/2 Ml Inj) 10 mg IV NOW ONE Stop: 03/31/24 08:26 Last Admin: 03/31/24 08:30 Dose: 10 mg Documented By: RB Prochlorperazine (Prochlorperazine 10 Mg/2 Ml Vial) 10 mg IV NOW ONE Stop: 03/31/24 09:16 Last Admin: 03/31/24 09:22 Dose: 10 mg Documented By: RB Vital Signs Vital signs: Vital Signs - 8 hr 03/31/24 07:10 03/31/24 07:26 03/31/24 07:30 Temperature 98.5 F Pulse Rate 86 85 80 Respiratory Rate 18 Blood Pressure 163/93 H Pulse Oximetry 98 97 98 Oxygen Delivery Method Room Air 03/31/24 08:00 03/31/24 08:17 03/31/24 08:17 Temperature Pulse Rate 96 H 88 Respiratory Rate Blood Pressure 186/95 H Pulse Oximetry 100 100 Oxygen Delivery Method 03/31/24 08:30 03/31/24 09:00 03/31/24 09:22 Temperature Pulse Rate 74 85 85 Respiratory Rate Blood Pressure 186/95 H Pulse Oximetry 100 100 Oxygen Delivery Method 03/31/24 09:30 03/31/24 10:08 03/31/24 10:16 Temperature Pulse Rate 91 H 78 74 Respiratory Rate Blood Pressure Pulse Oximetry 100 99 100 Oxygen Delivery Method 03/31/24 10:16 03/31/24 10:30 03/31/24 10:30 Temperature Pulse Rate 78 Respiratory Rate Blood Pressure 197/104 H 194/104 H Pulse Oximetry 100 Oxygen Delivery Method MDM - Nausea/Vomiting/Diarrhea Differential Diagnosis Differential diagnosis: Likely traveler's diarrhea, food poisoning and gastroenteritis Lab Data 03/31/24 07:18 03/31/24 07:18 Labs: Lab Results 03/31/24 03/31/24 03/31/24 Range/Units 07:18 10:13 10:13 WBC 10.9 (4.5-11.0) X10^3/uL RBC 4.55 (4.0-5.2) X10^6/uL Hgb 12.9 (12.0-16.0) g/dL Hct 38.8 (36-46) % MCV 85.2 (80-100) fL MCH 28.3 (26-34) PG MCHC 33.3 (30-36) % RDW 14.5 (11.6-14.8) % Plt Count 379 (150-400) X10^3/uL Neut % (Auto) 62.2 (50-75) % Lymph % (Auto) 27.1 (25-40) % [place] % (Auto) 9.5 (3-14) % Eos % (Auto) 0.7 L (2-4) % Baso % (Auto) 0.5 (0-2) % Neut # (Auto) 6800 (7888-8832) /uL Lymph # (Auto) 3000 (1175-9076) /uL [place] # (Auto) 1000 H (0-900) /uL Eos # (Auto) 100 (0-450) /uL Baso # (Auto) 100 (0-100) /uL Sodium 139 (137-145) mmol/L Potassium 3.3 L (3.4-5.1) mmol/L Chloride 105 (98-107) mmol/L Carbon Dioxide 20 L (22-32) mmol/L BUN 18 H (7-17) mg/dL Creatinine 0.68 (0.52-1.04) mg/dL Estimated GFR > 60 (>60) mL/min BUN/Creatinine Ratio 26.5 H (6-22) Glucose 109 H (70-100) mg/dL Lactate 1.5 (0.7-2.1) mmol/L Calcium 9.4 (8.4-10.2) mg/dL Magnesium 2.1 (1.6-2.3) mg/dL Total Bilirubin 2.7 H (0.2-1.3) mg/dL AST 22 (14-36) IU/L ALT 22 (<35) IU/L Alkaline Phosphatase 65 (38-126) U/L Total Protein 7.9 (6.3-8.2) g/dL Albumin 4.9 (3.5-5.0) g/dL Globulin 3.0 (1.7-4.1) g/dL Albumin/Globulin Ratio 1.6 (1.0-2.8) Urine Color Yellow Urine Appearance Clear Urine pH 5.5 Normal (4.5-8.0) Ur Specific [place] 1.020 (1.000-1.035) Urine Protein Negative (Negative) Urine Glucose (UA) Negative (Negative) g/dL Urine Ketones 3+ H (NEGATIVE) Urine Occult Blood Trace-intact (Negative) Urine Nitrate Negative (Negative) Urine Bilirubin 1+ H (NEGATIVE) Ur Bilirubin Confirm Negative (Negative) Urine Urobilinogen 0.2 (0.2) E.U./dL Ur Leukocyte Esterase Negative (NEGATIVE) Urine RBC 0-1/hpf (0-5/HPF) Urine WBC None seen (0-5/HPF) Ur Squamous Epith Cells 10-30 /hpf H (0-5/HPF) Urine Bacteria None seen (None) Ur Culture Indicated? Cult not indicated Vol Urine Centrifuged 10ml (spun) U Opiates 300ng/mL cut Negative (Negative) Ur Oxycodone Screen Negative (Negative) Urine Methadone Screen Negative (Negative) Ur Barbiturates Screen Negative (Negative) U Tricyclic Antidepress Negative (Negative) Ur Phencyclidine Scrn Negative (Negative) Ur Amphetamines Screen Negative (Negative) U Methamphetamines Scrn Negative (Negative) Ur MDMA Scrn (Ecstasy) Negative (Negative) U Benzodiazepines Scrn Positive H (Negative) Urine Cocaine Screen Negative (Negative) U Marijuana (THC) Screen Positive H (Negative) Urine Specific [place] Normal (Normal) Ur Creatinine Normal (Normal) Imaging Data CT scan - abdomen/pelvis: Radiologist's Impression: PROCEDURE: CT ABDOMEN PELVIS W CON INDICATIONS: INTRACTABLE N/V, HX GASTRIC BYPASS TECHNIQUE: After the administration of intravenous contrast, axial sections acquired from the lung bases to the pubic symphysis. Coronal and sagittal reformats were performed. For radiation dose reduction, the following was used: automated exposure control, adjustment of mA and/or kV according to patient size. COMPARISON: [facility], CT, CT ABDOMEN PELVIS W CON, 03/14/2024, 2:04. FINDINGS: Image quality: Diagnostic. Lower Chest: No significant findings. ABDOMEN: Liver: No solid mass. Gallbladder: Absent Biliary ducts: No biliary dilation. Pancreas: No ductal dilation. Spleen: Normal size. Unchanged superior aspect partially calcified cyst. Adrenal Glands: No adrenal nodules. Kidneys and Ureters: No hydronephrosis. No solid mass. No complex renal cystic lesion which requires follow up. Stomach and Bowel: Remote partial gastrectomy. Small bowel loops and colonic loops are of normal caliber without wall thickening. Sigmoid diverticulosis without evidence of acute diverticulitis. Remote appendectomy. Peritoneum: No abnormal intraperitoneal fluid. No free air. Ventral Wall: No significant ventral hernia. Abdominal Nodes: No retroperitoneal or mesenteric adenopathy by size criteria. Vessels: Aorta and inferior vena cava are normal in size. PELVIS: Pelvic Organs: Uterus is surgically absent.. Bladder: No bladder wall thickening, accounting for underdistention. Pelvic Nodes: No enlarged lymph nodes. Miscellaneous: No inguinal hernias are seen. Bones: No aggressive osseous abnormality. IMPRESSION: 1. No acute abdominal process noted. 2. Remote partial gastrectomy, cholecystectomy, appendectomy, and hysterectomy. 3. Diverticulosis without evidence of acute diverticulitis. Dictated by: Chase Steele M.D. on 03/31/2024 at 10:10 Approved by: Chase Steele M.D. on 03/31/2024 at 10:13 MDM Narrative Medical decision making narrative: Several days of nausea, vomiting, generalized abdominal pain identical to patient's previous visit less than 1 month ago. Abdomen soft, generally tender to palpation without focality, no rebound or guarding. Since patient states that this is the exact same pain that she had when she was diagnosed with abdominal migraine, little utility in repeating advanced imaging at this time. CT from previous visit reviewed, may have been some pericolonic stranding with luminal narrowing in the left colon, however also could be secondary to under distention. Patient continues to vomit despite multiple doses of droperidol, Reglan, IV Compazine. Repeat CT of the abdomen and pelvis is negative for any new findings. Patient's case discussed with Dr. Hinson of GI at [facility], who stated that abdominal migraines are a difficult diagnosis to make, but did recommend attempting amitriptyline and benzodiazepines. Amitriptyline can take several days to work and would not be an immediate cure. Patient continues to vomit. We will admit for further treatment at this time. Discharge Plan Departure Patient Disposition: Admitted as Observation Clinical Impression: Intractable vomiting with nausea, Intractable abdominal pain Prescriptions: No Action topiramate 25 mg tablet 25 mg PO BID phentermine 37.5 mg tablet 37.5 mg PO DAILY Patient Comments: 1 tablet by mouth every morning BEFORE BREAKFAST alprazolam 0.5 mg tablet 0.5 mg PO BID PRN (Reason: Anxiety) metformin 500 mg tablet extended release 24 hr 500 mg PO DAILY Patient Comments: hasn't started yet, waiting for pharmacy metoclopramide HCl [Reglan] 10 mg tablet 10 mg PO Q6H PRN (Reason: nausea and vomiting) Qty: 30 0RF sumatriptan succinate 50 mg tablet See Rx Instructions .ROUTE .COMPLEX 30 Days Qty: 9 0RF Rx Instructions: take 1 tab at onset of headache; if no relief may repeat 1 tab after at least 2 hrs; max = 4 tabs/24 hr sumatriptan succinate 6 mg/0.5 mL pen injector 6 mg SUBCUT Q1-4H Qty: 1 0RF Referrals: Crow Burgos MD [Primary Care Provider] - Admit Date/Time: 03/31/24 10:51 Admit Provider: Chris Starks
[2024-03-31 07:32] LABS: Add Manual Diff / Slide Review NO; Basophils Absolute Auto 100 /uL (0-100); Basophils Percent Auto 0.5 % (0-2); Eosinophils Absolute Auto 100 /uL (0-450); Eosinophils Percent Auto 0.7 % (2-4); Hematocrit 38.8 % (36-46); Hemoglobin 12.9 g/dL (12.0-16.0); Lymphocytes Absolute Auto 3000 /uL (1100-4500); Lymphocytes Percent Auto 27.1 % (25-40); Mean Corpuscular HGB Conc 33.3 % (30-36); Mean Corpuscular Hemoglobin 28.3 PG (26-34); Mean Corpuscular Volume 85.2 fL (80-100); Monocytes Absolute Auto 1000 /uL (0-900); Monocytes Percent Auto 9.5 % (3-14); Neutrophils Absolute Auto 6800 /uL (1500-7000); Neutrophils Percent Auto 62.2 % (50-75); Platelet Count 379 X10^3/uL (150-400); Red Blood Cell Count 4.55 X10^6/uL (4.0-5.2); Red Cell Distribution Width 14.5 % (11.6-14.8); White Blood Cell Count 10.9 X10^3/uL (4.5-11.0)
[2024-03-31 07:43] LABS: Alanine Aminotransferase 22 IU/L (<35); Albumin 4.9 g/dL (3.5-5.0); Albumin Globulin Ratio 1.6 (1.0-2.8); Alkaline Phosphatase 65 U/L (38-126); Aspartate Aminotransferase 22 IU/L (14-36); BUN Creatinine Ratio 26.5 (6-22); Bilirubin Total 2.7 mg/dL (0.2-1.3); Blood Urea Nitrogen 18 mg/dL (7-17); Calcium 9.4 mg/dL (8.4-10.2); Carbon Dioxide 20 mmol/L (22-32); Chloride 105 mmol/L (98-107); Estimated Glomerular Filt Rate > 60 mL/min (>60); Glucose 109 mg/dL (70-100); HEMOLYSIS < 15 (0-50); Magnesium 2.1 mg/dL (1.6-2.3); Potassium 3.3 mmol/L (3.4-5.1); Sodium 139 mmol/L (137-145); Total Protein 7.9 g/dL (6.3-8.2)
[2024-03-31 07:44] LABS: Lactate (Lactic Acid) 1.5 mmol/L (0.7-2.1)
[2024-03-31] MEDS: SODIUM CHLORIDE 0.9% 1,000 ML 1000 ML IV (07:44)
[2024-03-31] MEDS: DROPERIDOL 5 MG/2 ML VIAL 2.5 MG IV ×2 (07:45→08:30)
[2024-03-31] MEDS: diphenhydrAMINE 50 MG/ML VIAL IV (07:45)
--- NOTE | 2024-03-31 08:15 | EKG_ITS ---
[address] [address] Test Date: 2024-03-31 Pat Name: Janet Escobar Department: [facility] Room: Gender: Female [employer]ician: GIOVANNI : 1980 Requested By: Order Number: [id number] Reading MD: Chris Starks Measurements Intervals [place] Rate: 79 P: 30 NM: 150 QRS: 73 QRSD: 74 T: 36 QT: 376 QTc: 431 Interpretive Statements Normal sinus rhythm Septal infarct , age undetermined Electronically Signed On 03-31-2024 16:51:41 PDT by Chris Starks
[2024-03-31] MEDS: METOCLOPRAMIDE 10 MG/2 ML INJ IV (08:30)
--- NOTE | 2024-03-31 09:15 | DI.CT.S_ITS ---
PROCEDURE: CT ABDOMEN PELVIS W CON INDICATIONS: INTRACTABLE N/V, HX GASTRIC BYPASS TECHNIQUE: After the administration of intravenous contrast, axial sections acquired from the lung bases to the pubic symphysis. Coronal and sagittal reformats were performed. For radiation dose reduction, the following was used: automated exposure control, adjustment of mA and/or kV according to patient size. COMPARISON: [facility], CT, CT ABDOMEN PELVIS W CON, 03/14/2024, 2:04. FINDINGS: Image quality: Diagnostic. Lower Chest: No significant findings. ABDOMEN: Liver: No solid mass. Gallbladder: Absent Biliary ducts: No biliary dilation. Pancreas: No ductal dilation. Spleen: Normal size. Unchanged superior aspect partially calcified cyst. Adrenal Glands: No adrenal nodules. Kidneys and Ureters: No hydronephrosis. No solid mass. No complex renal cystic lesion which requires follow up. Stomach and Bowel: Remote partial gastrectomy. Small bowel loops and colonic loops are of normal caliber without wall thickening. Sigmoid diverticulosis without evidence of acute diverticulitis. Remote appendectomy. Peritoneum: No abnormal intraperitoneal fluid. No free air. Ventral Wall: No significant ventral hernia. Abdominal Nodes: No retroperitoneal or mesenteric adenopathy by size criteria. Vessels: Aorta and inferior vena cava are normal in size. PELVIS: Pelvic Organs: Uterus is surgically absent.. Bladder: No bladder wall thickening, accounting for underdistention. Pelvic Nodes: No enlarged lymph nodes. Miscellaneous: No inguinal hernias are seen. Bones: No aggressive osseous abnormality. IMPRESSION: 1. No acute abdominal process noted. 2. Remote partial gastrectomy, cholecystectomy, appendectomy, and hysterectomy. 3. Diverticulosis without evidence of acute diverticulitis. Dictated by: Chase Steele M.D. on 03/31/2024 at 10:10 Approved by: Chase Steele M.D. on 03/31/2024 at 10:13
[2024-03-31] MEDS: PROCHLORPERAZINE 10 MG/2 ML VIAL IV (09:22)
[2024-03-31] MEDS: KETOROLAC 30 MG/ML VIAL 15 MG IV (09:23)
[2024-03-31 10:22] LABS: Appearance Urine UA CLEAR; Bilirubin Urine UA 1+ (NEGATIVE); Color Urine UA YELLOW; Glucose Urine UA NEGATIVE (Negative); Ketones Urine UA 3+ (NEGATIVE); Leukocyte Esterase Urine UA NEGATIVE (NEGATIVE); Nitrite Urine UA NEGATIVE (Negative); Occult Blood Urine UA TRACE-INTACT (Negative); Protein Urine UA NEGATIVE (Negative); Urobilinogen Urine UA 0.2 E.U./dL (0.2)
[2024-03-31 10:24] LABS: Ur Creatinine Normal (Normal); Ur Specific Gravity Normal (Normal); Urine pH Normal (Normal); pH Urine UA 5.5 (4.5-8.0)
[2024-03-31 10:25] LABS: Urine Amphetamines Negative (Negative); Urine Barbiturates Negative (Negative); Urine Benzodiazepines Positive (Negative); Urine Cocaine Negative (Negative); Urine MDMA Negative (Negative); Urine Methadone Negative (Negative); Urine Methamphetamines Negative (Negative); Urine Opiates Negative (Negative); Urine Oxycodone Negative (Negative); Urine Phencyclidine Negative (Negative); Urine THC Positive (Negative); Urine Tricyclic Antidepressant Negative (Negative)
[2024-03-31 10:28] LABS: Bacteria Urine None Seen; Culture Indicated Urine Cult Not Indicated; Ictotest Urine Negative (Negative); RBC Urine 0-1/HPF (0-5/HPF); Squamous Epithelial Cell Urine 10-30 /HPF (0-5/HPF); Urine Volume 10mL (spun); WBC Urine None Seen (0-5/HPF)
[2024-03-31] MEDS: AMITRIPTYLINE 25 MG TABLET 75 MG PO (10:33)
[2024-03-31] MEDS: diazePAM 10 MG/2 ML SYRINGE 2 MG IV (11:12)
--- NOTE | 2024-03-31 11:28 | P.HP_ITS ---
History of Present Illness History of Present Illness Chief complaint: abd pain, v/d/n Narrative: From ED provider: 43-year-old female with history of bipolar disorder, history of gastric bypass in 2017 presents by private vehicle from home for 4 days of nausea, vomiting, periumbilical abdominal pain. Patient states that she was seen here approximately 3 weeks ago for exact same complaint, diagnosed with ?abdominal migraine? and admitted for antiemetics and fluids. Patient states that she was discharged on Reglan and Imitrex, which temporarily helped her symptoms, however the Imitrex is no longer working and she was not been able to keep anything down for the last 2 days. States that she has a GI appointment upcoming next month, but has not been able to see a GI doctor since her discharge from the hospital on 03/15/2024 Additional information: She has a history of a gastric sleeve in his had episodic abdominal pain and vomiting episodes since. She was been seen by Gastroenterology at [facility] with no definitive diagnoses. She was had endoscopy, and colonoscopy said to be normal as well as a gastric emptying study said to be normal. She does note occasionally that she gets facial hives when this happens. She did have a surgery here for adhesion lysis wear her abdomen was described as having extensive adhesions and the surgeon recommended that she never have another surgery again unless it is life-threatening. This raises the possibility of recurrent SBO. She denies diarrhea or blood per rectum. No abdominal distention. She does have a history of cholecystectomy, appendectomy, hysterectomy and oophorectomy. In the ED, imaging was benign and she was treated symptomatically with fluids and antiemetics. [facility] Medical History Left corneal abrasion Headache Polycystic ovary disease Celiac disease GERD with apnea Hypertension Bipolar disorder Surgical History Status post tubal ligation History of section H/O abdominoplasty H/O oophorectomy H/O gastric sleeve History of cholecystectomy History of appendectomy Social History marital status: household members: significant other and children lives independently: Yes occupational status: employed Smoking Status: Never smoker alcohol intake: current substance use type: marijuana Meds Home Medications and Allergies Home Medications Medication Instructions Recorded Confirmed Type phentermine 37.5 mg tablet 37.5 mg PO DAILY 10/28/22 03/14/24 History alprazolam 0.5 mg tablet 0.5 mg PO BID PRN Anxiety 05/06/23 03/14/24 History metformin 500 mg tablet,extended 500 mg PO DAILY 05/06/23 03/14/24 History release 24 hr topiramate 25 mg tablet 25 mg PO BID 10/14/23 03/14/24 History metoclopramide HCl 10 mg tablet 10 mg PO Q6H PRN nausea and 03/08/24 03/13/24 Rx (Reglan) vomiting #30 tabs sumatriptan succinate 50 mg tablet See Rx Instructions PO .COMPLEX 30 03/15/24 Rx days #9 tabs sumatriptan succinate 6 mg/0.5 mL 6 mg (0.5 mL) SUBCUT Q1-4H #1 mL 03/15/24 Rx subcutaneous pen injector Allergies Allergy/AdvReac Type Severity Reaction Status Date / Time gluten Allergy Celiac Verified 03/13/24 19:07 coconut AdvReac Intermediate Hives Verified 03/13/24 19:07 NSAIDS (Non-Steroidal AdvReac Mild Gastrointestinal Verified 03/13/24 19:07 Anti-Inflamma Upset benzonatate AdvReac Unknown Hives Verified 03/13/24 19:07 [From Tessalon Perles] escitalopram [From Lexapro] AdvReac Unknown Hallucinati Verified 03/13/24 19:07 ng Review of Systems Review of Systems Narrative: All else reviewed and otherwise unremarkable except as noted in the history and physical. Exam Vital Signs (past 8 hours): - 03/31/24 07:10 03/31/24 07:26 03/31/24 07:30 Temperature 98.5 F Pulse Rate 86 85 80 Respiratory Rate 18 Blood Pressure 163/93 H Pulse Oximetry 98 97 98 Oxygen Delivery Method Room Air 03/31/24 08:00 03/31/24 08:17 03/31/24 08:17 Temperature Pulse Rate 96 H 88 Respiratory Rate Blood Pressure 186/95 H Pulse Oximetry 100 100 Oxygen Delivery Method 03/31/24 08:30 03/31/24 09:00 03/31/24 09:22 Temperature Pulse Rate 74 85 85 Respiratory Rate Blood Pressure 186/95 H Pulse Oximetry 100 100 Oxygen Delivery Method 03/31/24 09:30 03/31/24 10:08 03/31/24 10:16 Temperature Pulse Rate 91 H 78 74 Respiratory Rate Blood Pressure Pulse Oximetry 100 99 100 Oxygen Delivery Method 03/31/24 10:16 03/31/24 10:30 03/31/24 10:30 Temperature Pulse Rate 78 Respiratory Rate Blood Pressure 197/104 H 194/104 H Pulse Oximetry 100 Oxygen Delivery Method 03/31/24 11:00 03/31/24 11:01 03/31/24 11:01 Temperature Pulse Rate 73 79 Respiratory Rate Blood Pressure 196/97 H Pulse Oximetry 99 99 Oxygen Delivery Method Oxygen Delivery Method Room Air Narrative Exam Narrative: NAD, alert and oriented, fluent speech, anxious. Normocephalic skull, EOMI, anicteric sclera, symmetric pupils. Oropharynx unremarkable, no droop. Neck supple, midline trachea, no adenopathy. Lungs clear, normal rate and effort. Heart regular, no murmur gallop or rub. Abdomen is soft, non distended and very mild epigastric tenderness without guarding or rebound. Extremities are free of edema. Skin is free of rash or lesions. Joints are not swollen or deformed. Judgment appears to be normal. Objective Imaging CT scan - abdomen: Radiologist's impression: 1. No acute abdominal process noted. 2. Remote partial gastrectomy, cholecystectomy, appendectomy, and hysterectomy. 3. Diverticulosis without evidence of acute diverticulitis. Labs 03/31/24 07:18 03/31/24 07:18 Labs: Laboratory Results - last 24 hr 03/31/24 03/31/24 03/31/24 07:18 10:13 10:13 WBC 10.9 RBC 4.55 Hgb 12.9 Hct 38.8 MCV 85.2 MCH 28.3 MCHC 33.3 RDW 14.5 Plt Count 379 Neut % (Auto) 62.2 Lymph % (Auto) 27.1 [place] % (Auto) 9.5 Eos % (Auto) 0.7 L Baso % (Auto) 0.5 Neut # (Auto) 6800 Lymph # (Auto) 3000 [place] # (Auto) 1000 H Eos # (Auto) 100 Baso # (Auto) 100 Sodium 139 Potassium 3.3 L Chloride 105 Carbon Dioxide 20 L BUN 18 H Creatinine 0.68 Estimated GFR > 60 BUN/Creatinine Ratio 26.5 H Glucose 109 H Lactate 1.5 Calcium 9.4 Magnesium 2.1 Total Bilirubin 2.7 H AST 22 ALT 22 Alkaline Phosphatase 65 Total Protein 7.9 Albumin 4.9 Globulin 3.0 Albumin/Globulin Ratio 1.6 Urine Color Yellow Urine Appearance Clear Urine pH 5.5 Normal Ur Specific [place] 1.020 Urine Protein Negative Urine Glucose (UA) Negative Urine Ketones 3+ H Urine Occult Blood Trace-intact Urine Nitrate Negative Urine Bilirubin 1+ H Ur Bilirubin Confirm Negative Urine Urobilinogen 0.2 Ur Leukocyte Esterase Negative Urine RBC 0-1/hpf Urine WBC None seen Ur Squamous Epith Cells 10-30 /hpf H Urine Bacteria None seen Ur Culture Indicated? Cult not indicated Vol Urine Centrifuged 10ml (spun) U Opiates 300ng/mL cut Negative Ur Oxycodone Screen Negative Urine Methadone Screen Negative Ur Barbiturates Screen Negative U Tricyclic Antidepress Negative Ur Phencyclidine Scrn Negative Ur Amphetamines Screen Negative U Methamphetamines Scrn Negative Ur MDMA Scrn (Ecstasy) Negative U Benzodiazepines Scrn Positive H Urine Cocaine Screen Negative U Marijuana (THC) Screen Positive H Urine Specific [place] Normal Ur Creatinine Normal Assessment & Plan Assessment & Plan narrative: 1. Intractable episodic nausea and vomiting, present on admission and active. With her history of severe adhesions 1 wonders about recurrent partial small- bowel obstructions. 2. Bipolar disorder, present on admission and active. 3. Gastroesophageal reflux disease, present on admission and active. 4. Celiac disease, present on admission and active. 5. Polycystic ovarian disease, present on admission and active. 6. Hypertension, present on admission and active. PLAN: -symptomatic treatment with analgesics and antiemetics. -IV fluid resuscitation. -consider Gastrografin if she was persistent symptoms tomorrow and discuss with surgery. -we will try to reach out to her bariatric surgeon, Dr. Jerrell Khan in [place], to see if he believes his symptoms may relate to her gastric sleeve. She was admitted to observation status, anticipate a 1 night need for hospital services. Full code. Time-Based Coding :: 35 min spent with patient and on the chart (including review of chart, obtaining history, exam, reviewing outside data, placing orders, documenting exam and treatment plan, and counseling patient) on 03/31.
[2024-03-31] MEDS: DEXTROSE 5%-0.45% NS 1,000 ML 100 ML IV (11:59)
[2024-03-31] MEDS: HEPARIN 5,000 UNIT/ML VIAL 5000 UNIT SUBCUT ×2 (11:59→20:13)
[2024-03-31] MEDS: HYDROMORPHONE 0.5 MG INJ IV ×4 (12:08→23:48)
--- NOTE | 2024-03-31 15:34 | PC.NURSE ---
patient reports that her nausea is under control, she states that her pain is 6/10 but denies pain medications at this time. patient is currently resting comfortably
[2024-03-31] MEDS: ONDANSETRON 4 MG/2 ML INJ IV (19:58)
--- NOTE | 2024-04-01 | DI.RAD.S_ITS ---
PROCEDURE: XR GASTROGRAFIN CHALLENGE COMPARISON: None. INDICATIONS: possible PSBO FINDINGS: Intraluminal contrast within the large bowel after 4 hours of administration. IMPRESSION: Interval passage of contrast into the large bowel after 4 hours. Dictated by: Pavan Farfan M.D. on 04/01/2024 at 17:19 Approved by: Pavan Farfan M.D. on 04/01/2024 at 17:19
[2024-04-01] MEDS: ONDANSETRON 4 MG/2 ML INJ IV ×4 (00:09→19:38)
[2024-04-01] MEDS: DEXTROSE 5%-0.45% NS 1,000 ML 100 ML IV ×2 (00:28→09:57)
[2024-04-01] MEDS: HYDROMORPHONE 0.5 MG INJ IV ×6 (05:55→23:00)
--- NOTE | 2024-04-01 05:59 | PC.NURSE ---
Pt continued to have abdominal pain and nausea overnight. Given dilaudid and zofran with good results.
[2024-04-01 08:00] VITALS: BP 115/55; PULSE 66; RESP 16; TEMP 36.2; O2SAT 100
[2024-04-01] MEDS: HEPARIN 5,000 UNIT/ML VIAL 5000 UNIT SUBCUT ×2 (09:18→20:21)
[2024-04-01] MEDS: OXYCODONE IR 5 MG TABLET PO (09:18)
--- NOTE | 2024-04-01 09:42 | PM.PN.1 ---
Subjective Subjective Interval history: She was still having pain and nausea today. She does not remember having a Gastrografin challenge in the past. Exam Vital Signs (past 8 hours): - 04/01/24 08:00 Temperature 97.2 F L Pulse Rate 66 Respiratory Rate 16 Blood Pressure 115/55 L Pulse Oximetry 100 Oxygen Flow Rate 0 Oxygen Delivery Method Room Air Oxygen Flow Rate 0 Narrative Exam Narrative: NAD, alert and oriented. Fluent speech. She appears somewhat uncomfortable with a flat affect. Lungs are clear, normal rate and effort. Heart is regular, no murmur gallop or rub. Abdomen is soft, non distended. Extremities are free of edema. Objective Labs 03/31/24 07:18 03/31/24 07:18 Labs: Laboratory Results - last 24 hr 03/31/24 03/31/24 10:13 10:13 Urine Color Yellow Urine Appearance Clear Urine pH 5.5 Normal Ur Specific [place] 1.020 Urine Protein Negative Urine Glucose (UA) Negative Urine Ketones 3+ H Urine Occult Blood Trace-intact Urine Nitrate Negative Urine Bilirubin 1+ H Ur Bilirubin Confirm Negative Urine Urobilinogen 0.2 Ur Leukocyte Esterase Negative Urine RBC 0-1/hpf Urine WBC None seen Ur Squamous Epith Cells 10-30 /hpf H Urine Bacteria None seen Ur Culture Indicated? Cult not indicated Vol Urine Centrifuged 10ml (spun) U Opiates 300ng/mL cut Negative Ur Oxycodone Screen Negative Urine Methadone Screen Negative Ur Barbiturates Screen Negative U Tricyclic Antidepress Negative Ur Phencyclidine Scrn Negative Ur Amphetamines Screen Negative U Methamphetamines Scrn Negative Ur MDMA Scrn (Ecstasy) Negative U Benzodiazepines Scrn Positive H Urine Cocaine Screen Negative U Marijuana (THC) Screen Positive H Urine Specific [place] Normal Ur Creatinine Normal PFSH Medical History Left corneal abrasion Headache Polycystic ovary disease Celiac disease GERD with apnea Hypertension Bipolar disorder Surgical History Status post tubal ligation History of section H/O abdominoplasty H/O oophorectomy H/O gastric sleeve History of cholecystectomy History of appendectomy Social History marital status: household members: significant other and children lives independently: Yes occupational status: employed Smoking Status: Never smoker alcohol intake: never substance use type: marijuana Assessment & Plan Assessment & Plan narrative: 1. Intractable episodic nausea and vomiting, present on admission and active. With her history of severe adhesions 1 wonders about recurrent partial small-bowel obstructions. 2. Bipolar disorder, present on admission and active. 3. Gastroesophageal reflux disease, present on admission and active. 4. Celiac disease, present on admission and active. 5. Polycystic ovarian disease, present on admission and active. 6. Hypertension, present on admission and active. PLAN: -symptomatic treatment with analgesics and antiemetics. -IV fluid resuscitation. -attempt Gastrografin to R/O PSBO with history of severe adhesions. -we will try to reach out to her bariatric surgeon, Dr. Jerrell Khan in [place], to see if he believes his symptoms may relate to her gastric sleeve. She may be able to discharge later today but there is a reasonable possibility she will require another night of ongoing symptomatic treatment and IV fluids for persistent nausea, and vomiting. Time-Based Coding :: 25 spent with patient and on the chart (including review of chart, obtaining history, exam, reviewing outside data, placing orders, documenting exam and treatment plan, and counseling patient) on 04/01. Quality VTE Deep Vein Thrombosis/Pulmonary Embolism Present on Admission: No
--- NOTE | 2024-04-01 12:20 | DIET.CONS ---
Dietary Consultation Note Admission Date: 03/31/2024 10:51 Assessment: 43 y F admitted for N/V. [facility] gastric bypass 2017. Nutrition consulted for N/V, weight loss. Met with pt at bedside reports no intake since this past Friday, able to have 1 piece of danish toast this morning and bite of sausage. Presented to ER on March 13 for similar incident and was admitted. Since being discharged for that admission, has had reduced po intakes. Is hesitant to eat too much at once. Before N/V incidents has been focusing on adequate protein intake with salmon, cottage cheese, premier protein shakes, etc, and small freq meals. Reports was monitoring weight and working towards goal weight. NFPE performed with no significant findings. Ht: 167.64 cm Wt: 86.183 kg BMI: 30.7 UBW: 89.55 kg on 03/26/24 per pt (-3.75% weight loss in 1 week, severe) Last BM: 03/31/24 (03/31/24 17:20) MNA: 8 Maxwell Score: 22 Diet: 03/31/24 Lunch General (Regular) Diet Diet Modifications: Nutrition Percent Meal Consumed 10 04/01/24 09:17 Percent Meal Consumed 0% 03/31/24 18:00 Labs: RBC 4.55 X10^6/uL (4.0-5.2) 03/31/24 07:18 Hgb 12.9 g/dL (12.0-16.0) 03/31/24 07:18 Hct 38.8 % (36-46) 03/31/24 07:18 Creatinine 0.68 mg/dL (0.52-1.04) 03/31/24 07:18 Lactate 1.5 mmol/L (0.7-2.1) 03/31/24 07:18 Nutrition Diagnosis: Inadequate oral intake r/t nausea/vomiting aeb 4 days <25% estimated energy intake Interventions: 1. Max protein ONS trial 2. Discussed tolerated foods, adequate protein intake as tolerated, fluids Monitoring/Evaluations: po intakes Electronically Signed by: Ritika Evans 04/01/24 12:20 Clinical Dietitian [address] [address]
[2024-04-01] MEDS: METOCLOPRAMIDE 10 MG/2 ML INJ IV ×2 (14:23→23:00)
--- NOTE | 2024-04-01 14:34 | CM.DANOTE ---
patient is a 43yo F admitted OBS Status on 03/31/24 for intractable nausea and vomiting and abdominal pain. Per , pt with hx of gastric bypass and bipolar and was recently admitted 03/14/24 this month for similar and plan is Gastrogafein to r/o any further block or obstruction or medical issues as unclear pt's etiology but likely could be due to gastric sleeve. MD to consult pt's surgeon in [place]. PCP Crow Burgos Payer self pay GAMBRELER HELPER reviewed EMR. Per Britt from admitting counseling group, pt is self pay due to having only active Medicare part A only. Pt's part B termed on 02/06/24. [facility] application provided and pt completed and SW assisted with getting the application to Patient Accounts. GAMBRELER HELPER entered room and introduced self and role and pt confirms she still lives at home in [place] with her spouse, child, and dog and works at [employer] but recently started a new job where she earns significantly less than her previous job. Therefore she was able to contact Medicare and they are reviewing her new income and confirm they can back date her Medicare B for hospital coverage. Pt states she was feeling better after she discharged home earlier this month and was able to work and manage daily living but the past 4 days increased n/v/and pain. Pt tearful as she is frustrated about lack of dx and etiology of her ongoing symptoms. Pt hopeful the imaging will provide some answers. Pt confirms spouse will transport home at d/c and pt does not meet criteria for HH. Pt has GI appointment scheduled for next month. P: SW to follow for imaging results from Gastrogafein for plan of home with spouse when medically stable. GIO López Discharge Planning/Care Management CM Discharge Assessment Start: 04/01/24 14:32 Freq: Status: Active Protocol: Document 04/01/24 14:32 BF (Rec: 04/01/24 14:34 BF [id number]) Discharge Planning Assessment Assigned Security Intern GIO Camilo DPOA/Assigned Designee Name informally spouse Harley Contact Information [phone] Advance Directives? No Advance Directives on File No History Provided By Patient,Medical Record Has Patient been admitted in last 30 Yes days? Comment last admitted on 03/14/24 for similar and d/c to home Prior Living Arrangements House Household Members significant other,children Type of transporation used prior to Drives own vehicle admit Independent with ADL's Yes Is patient alert and oriented? Yes Caregiver for Another Yes: young child at home Barriers to Discharge No Comment Home w/ S.O. expected Discharge Plan Home Transportation Arrangement Spouse can transport home at d /c Referrals Initiated None needed Additional Comment [facility] Care application given and completed Whiteboard Updated in Patient Room with Yes name and ext. # of Security Intern Review Status In Process Please Provide Date Initial DC 04/01/24 Assessment Was Performed Next Review Type Continued Stay Review
[2024-04-01 20:00] VITALS: BP 142/70; PULSE 80; RESP 18; TEMP 37; O2SAT 97
[2024-04-02] MEDS: HYDROMORPHONE 0.5 MG INJ IV (05:05)
[2024-04-02] MEDS: METOCLOPRAMIDE 10 MG/2 ML INJ IV (05:06)
[2024-04-02 05:18] LABS: Add Manual Diff / Slide Review NO; Basophils Absolute Auto 100 /uL (0-100); Basophils Percent Auto 0.8 % (0-2); Eosinophils Absolute Auto 200 /uL (0-450); Eosinophils Percent Auto 2.3 % (2-4); Hematocrit 33.5 % (36-46); Hemoglobin 11.3 g/dL (12.0-16.0); Lymphocytes Absolute Auto 3500 /uL (1100-4500); Lymphocytes Percent Auto 39.1 % (25-40); Mean Corpuscular HGB Conc 33.7 % (30-36); Mean Corpuscular Hemoglobin 28.6 PG (26-34); Mean Corpuscular Volume 84.9 fL (80-100); Monocytes Absolute Auto 700 /uL (0-900); Monocytes Percent Auto 8.3 % (3-14); Neutrophils Absolute Auto 4400 /uL (1500-7000); Neutrophils Percent Auto 49.5 % (50-75); Platelet Count 322 X10^3/uL (150-400); Red Blood Cell Count 3.95 X10^6/uL (4.0-5.2); Red Cell Distribution Width 14.1 % (11.6-14.8); White Blood Cell Count 8.9 X10^3/uL (4.5-11.0)
[2024-04-02 05:28] LABS: Alanine Aminotransferase 17 IU/L (<35); Albumin 3.8 g/dL (3.5-5.0); Albumin Globulin Ratio 1.7 (1.0-2.8); Alkaline Phosphatase 45 U/L (38-126); Aspartate Aminotransferase 18 IU/L (14-36); BUN Creatinine Ratio 9.4 (6-22); Blood Urea Nitrogen 5 mg/dL (7-17); Calcium 8.4 mg/dL (8.4-10.2); Carbon Dioxide 24 mmol/L (22-32); Chloride 108 mmol/L (98-107); Estimated Glomerular Filt Rate > 60 mL/min (>60); Globulin 2.3 g/dL (1.7-4.1); Glucose 90 mg/dL (70-100); HEMOLYSIS 22 (0-50); Lipase 126 U/L (23-300); Potassium 3.2 mmol/L (3.4-5.1); Sodium 138 mmol/L (137-145); Total Protein 6.1 g/dL (6.3-8.2)
--- NOTE | 2024-04-02 05:58 | PC.NURSE ---
Pt still continues to have abdominal pain and nausea. Reglan is helping better than zofran. Hot packs are also helping. Plan is to discharge home today
[2024-04-02 07:24] VITALS: BP 109/65; PULSE 68; RESP 19; TEMP 36.3; O2SAT 98
[2024-04-02] MEDS: POTASSIUM CHLORIDE 20 MEQ TAB 40 MEQ PO (07:48)
[2024-04-02] MEDS: OXYCODONE IR 5 MG TABLET PO (07:48)
--- NOTE | 2024-04-02 10:24 | CM.DPC ---
DCP Discharge Home Per MD, pt's gastrogafein and imaging did not show any blockage and will need outpt GI followup and etiology of ongoing nausea and pain unknown and likely due to her prior gastric bypass. Pt medically stable to discharge home today and no identified barriers to discharge. Spouse arrived bedside and pt agreeable with discharge home today and continues to work with Medicare to get part B reinstated and retroactive. GIO López
--- NOTE | 2024-04-02 10:25 | PC.NURSE ---
Pt agreeable to discharge. Tolerated breakfast, PO medications. Pt reports pain is manageable. IV discontinued, education provided to patient on follow up, referrals, and worsening symptoms. Pt ambulated to private vehicle at approximately 10:15.
--- NOTE | 2024-04-02 11:27 | PM.DS.1 ---
History of Present Illness History of Present Illness Date Patient Seen: 04/02/24 Time Patient Seen: 08:40 Date of Onset of Symptoms: 03/31/24 Chief complaint: abd pain, v/d/n Narrative: 43-year-old female with history of bipolar disorder, history of gastric bypass in 2017 presents by private vehicle from home for 4 days of nausea, vomiting, periumbilical abdominal pain. Patient states that she was seen here approximately 3 weeks ago for exact same complaint, diagnosed with ?abdominal migraine? and admitted for antiemetics and fluids. Patient states that she was discharged on Reglan and Imitrex, which temporarily helped her symptoms, however the Imitrex is no longer working and she was not been able to keep anything down for the last 2 days. States that she has a GI appointment upcoming next month, but has not been able to see a GI doctor since her discharge from the hospital on 03/15/2024 Additional information: She has a history of a gastric sleeve in his had episodic abdominal pain and vomiting episodes since. She was been seen by Gastroenterology at [facility] with no definitive diagnoses. She was had endoscopy, and colonoscopy said to be normal as well as a gastric emptying study said to be normal. She does note occasionally that she gets facial hives when this happens. She did have a surgery here for adhesion lysis wear her abdomen was described as having extensive adhesions and the surgeon recommended that she never have another surgery again unless it is life-threatening. This raises the possibility of recurrent SBO. She denies diarrhea or blood per rectum. No abdominal distention. She does have a history of cholecystectomy, appendectomy, hysterectomy and oophorectomy. In the ED, imaging was benign and she was treated symptomatically with fluids and antiemetics. Discharge Providers Provider Date of admission: 03/31/24 10:51 Discharge Date: 04/02/24 Primary care physician: Crow Burgos MD Consults: 03/31/24 17:26 Consult to Dietitian, Adult Routine Comment: Reason For Exam: N/V with wt loss Discharge provider: Tai Cage MD Summary Hospital Course Discharge Diagnosis: 1. Intractable episodic nausea and vomiting, present on admission and resolved, possibly gastrointestinal migraines versus intermittent partial small-bowel obstructions versus bile reflux in postoperative bariatric patient 2. Bipolar disorder, present on admission and active. 3. Gastroesophageal reflux disease, present on admission and active. 4. Celiac disease, present on admission and active. 5. Polycystic ovarian disease, present on admission and active. 6. Hypertension, present on admission and active. Hospital Course: The patient was treated with analgesics and antiemetics, IV fluid resuscitation, and Gastrografin study to rule out partial small bowel obstruction with a history of adhesions, which returned normal. She plans follow up with her bariatric surgeon Dr. Jerrell Khan in [place] whether this may be a complication of bariatric surgery. Given the possibility of atypical gastrointestinal migraines her Topamax was increased to 50 mg twice daily at discharge. She uses feeling significantly better and interested in discharge home or oral pain medication. No other issues arose. Abdomen pelvis CT 03/31/2024: 1. No acute abdominal process noted. 2. Remote partial gastrectomy, cholecystectomy, appendectomy, and hysterectomy. 3. Diverticulosis without evidence of acute diverticulitis. Gastrografin study 04/01/2024: Interval passage of contrast into the large bowel after 4 hours. Status at Discharge Cognitive/behavioral status at discharge: oriented Functional status at discharge: independent ambulation Overall status at discharge: patient is back to baseline Time Spent with Patient Time spent: Less than 30 minutes Exam Vital Signs (past 8 hours): - 04/02/24 07:24 04/02/24 08:00 Temperature 97.3 F L Pulse Rate 68 Respiratory Rate 19 Blood Pressure 109/65 Pulse Oximetry 98 Oxygen Delivery Method Room Air Oxygen Flow Rate 0 Oxygen Delivery Method Room Air Oxygen Flow Rate 0 Narrative Exam Narrative: Exam Narrative: NAD, alert and oriented. Fluent speech. She appears somewhat uncomfortable with a flat affect. Lungs are clear, normal rate and effort. Heart is regular, no murmur gallop or rub. Abdomen is soft, non distended. Extremities are free of edema. Objective Labs 04/02/24 04:46 04/02/24 04:46 Labs: Laboratory Results - last 24 hr 04/02/24 04:46 WBC 8.9 RBC 3.95 L Hgb 11.3 L Hct 33.5 L MCV 84.9 MCH 28.6 MCHC 33.7 RDW 14.1 Plt Count 322 Neut % (Auto) 49.5 L Lymph % (Auto) 39.1 [place] % (Auto) 8.3 Eos % (Auto) 2.3 Baso % (Auto) 0.8 Neut # (Auto) 4400 Lymph # (Auto) 3500 [place] # (Auto) 700 Eos # (Auto) 200 Baso # (Auto) 100 Sodium 138 Potassium 3.2 L Chloride 108 H Carbon Dioxide 24 BUN 5 L Creatinine 0.53 Estimated GFR > 60 BUN/Creatinine Ratio 9.4 Glucose 90 Calcium 8.4 Total Bilirubin 1.0 AST 18 ALT 17 Alkaline Phosphatase 45 Total Protein 6.1 L Albumin 3.8 Globulin 2.3 Albumin/Globulin Ratio 1.7 Lipase 126 PFSH Medical History Left corneal abrasion Headache Polycystic ovary disease Celiac disease GERD with apnea Hypertension Bipolar disorder Surgical History Status post tubal ligation History of section H/O abdominoplasty H/O oophorectomy H/O gastric sleeve History of cholecystectomy History of appendectomy Social History marital status: household members: significant other and children lives independently: Yes occupational status: employed Smoking Status: Never smoker alcohol intake: never substance use type: marijuana Discharge Plan Discharge Plan Patient Disposition: Home Provider Discharge Comment: Followup with Dr. Crow Burgos 1 week Discharge orders & Medications Prescriptions: New topiramate 50 mg tablet 50 mg PO BID Qty: 60 0RF tramadol 50 mg tablet 50 mg PO Q6H PRN (Reason: pain) Qty: 30 0RF Continued phentermine 37.5 mg tablet 37.5 mg PO DAILY Patient Comments: 1 tablet by mouth every morning BEFORE BREAKFAST alprazolam 0.5 mg tablet 0.5 mg PO BID PRN (Reason: Anxiety) metformin 500 mg tablet extended release 24 hr 500 mg PO DAILY Patient Comments: hasn't started yet, waiting for pharmacy metoclopramide HCl [Reglan] 10 mg tablet 10 mg PO Q6H PRN (Reason: nausea and vomiting) Qty: 30 0RF sumatriptan succinate 50 mg tablet See Rx Instructions .ROUTE .COMPLEX 30 Days Qty: 9 0RF Rx Instructions: take 1 tab at onset of headache; if no relief may repeat 1 tab after at least 2 hrs; max = 4 tabs/24 hr sumatriptan succinate 6 mg/0.5 mL pen injector 6 mg SUBCUT Q1-4H Qty: 1 0RF Discontinued topiramate 25 mg tablet 25 mg PO BID Follow up/Referrals: Crow Burgos MD [Primary Care Provider] - Diet/Activity/Treatments Diet: Diet as Tolerated Visit Report/Discharge Packet Stand Alone Forms: Patient Portal/API Discharge Data Primary Care Provider: Crow Burgos Attending Provider: Chris Starks Admit Date/Time: 03/31/24 10:51 Quality VTE Deep Vein Thrombosis/Pulmonary Embolism Present on Admission: No MIPS - Admit I confirm the patient?s Advance Care Plan is present, Code status is documented, Surrogate decision maker is in patient?s record [If Yes, STOP here]: Yes MIPS - Meds 'Current medications' to include all prescriptions, [id number] products, herbals, cannabis/cannabidiol products, and vitamin/mineral/dietary (nutritional) supplements. I have utilized all available resources to obtain, update, or review the patient?s current medications. [If Yes, STOP here]: Yes MIPS - DC The patient has a history of heart transplant or Left Ventricular Assist Device (LVAD). If yes, STOP here.: No The patient has current or prior documentation of left ventricular ejection fraction (LVEF) less than or equal to 40%, or moderate or severely depressed left ventricular systolic function.: No A. The patient was prescribed or already taking an Angiotensin-Converting Enzyme (WILFRED) Inhibitor, or Angiotensin Receptor Tino (ARB).: No B. The patient was prescribed or already taking a beta-tino. [If Yes to Both A & B, STOP here]: No Patient not prescribed/taking WILFRED or ARB, no reason given.: No Patient not prescribed/taking beta-tino, no reason given.: No PROFEE Charge Codes Discharge inpatient/observation: [id number]
== END 2024-04-02 10:15 | disposition home or self-care (01) ==
LOC: ED 07:09 → AC 10:53 → ICU 15:47
PROVIDERS: Admitting Provider Hospitalist; Emergency Provider Emergency Medicine; PCP Internal Medicine; Referring Provider Emergency Medicine; Visit Provider Hospitalist
DX: R10.33 Periumbilical pain (principal); R11.2 Nausea with vomiting, unspecified; Z98.84 Bariatric surgery status; K21.9 Gastro-esophageal reflux disease without esophagitis; K90.0 Celiac disease; E28.2 Polycystic ovarian syndrome; I10 Essential (primary) hypertension
CPT/HCPCS: 36415; 74018; 74177; 80053; 80305; 81001; 83605; 83690; 83735; 85025; 93005; 96361; 96374; 96375; 96376; 99284; G0378; J0780; J1170; J1200; J1644; J1790; J1885; J2405; J2765; J3360; Q9967

== ENCOUNTER 2024-04-26 14:01 | Observation (INO) | payer OTHER, SELFPAY ==
[2024-03-31 17:20] VITALS: BMI 30.7
[2024-04-26] VITALS (16 sets, daily range): BP systolic 108–172; BP diastolic 78–98; PULSE 66–119; RESP 18–24; TEMP 36.2–36.8; O2SAT 97–100; BMI 29.9
--- NOTE | 2024-04-26 14:20 | EKG_ITS ---
[address] [address] [place] [address] Test Date: 2024-04-27 Pat Name: Janet Escobar Department: [facility] Room: 217 Gender: Female Leather Splitter: MIKEL : 1980 Requested By: Order Number: [id number] Reading MD: Chris Starks Measurements Intervals Center Rate: 58 P: 34 AL: 136 QRS: 65 QRSD: 92 T: 55 QT: 450 QTc: 441 Interpretive Statements Sinus bradycardia with sinus arrhythmia Nonspecific ST abnormality Electronically Signed On 05-03-2024 9:05:12 PDT by Chris Starks
[2024-04-26] MEDS: ONDANSETRON 4 MG/2 ML INJ IV ×2 (14:30→19:18)
[2024-04-26] MEDS: SODIUM CHLORIDE 0.9% 1,000 ML 1000 ML IV ×2 (14:30→19:17)
[2024-04-26 14:35] LABS: Add Manual Diff / Slide Review NO; Basophils Absolute Auto 100 /uL (0-100); Basophils Percent Auto 0.7 % (0-2); Eosinophils Absolute Auto 0 /uL (0-450); Eosinophils Percent Auto 0.3 % (2-4); Hematocrit 41.6 % (36-46); Lymphocytes Absolute Auto 3000 /uL (1100-4500); Lymphocytes Percent Auto 23.2 % (25-40); Mean Corpuscular HGB Conc 33.6 % (30-36); Mean Corpuscular Hemoglobin 28.2 PG (26-34); Mean Corpuscular Volume 83.9 fL (80-100); Monocytes Absolute Auto 1000 /uL (0-900); Monocytes Percent Auto 7.8 % (3-14); Neutrophils Absolute Auto 8800 /uL (1500-7000); Platelet Count 437 X10^3/uL (150-400); Red Blood Cell Count 4.96 X10^6/uL (4.0-5.2); Red Cell Distribution Width 14.8 % (11.6-14.8)
[2024-04-26 14:53] LABS: Alanine Aminotransferase 23 IU/L (<35); Albumin Globulin Ratio 1.5 (1.0-2.8); Alkaline Phosphatase 75 U/L (38-126); Aspartate Aminotransferase 22 IU/L (14-36); BUN Creatinine Ratio 21.3 (6-22); Bilirubin Total 1.5 mg/dL (0.2-1.3); Blood Urea Nitrogen 16 mg/dL (7-17); Calcium 10.1 mg/dL (8.4-10.2); Carbon Dioxide 14 mmol/L (22-32); Chloride 112 mmol/L (98-107); Estimated Glomerular Filt Rate > 60 mL/min (>60); Globulin 3.3 g/dL (1.7-4.1); Glucose 129 mg/dL (70-100); HEMOLYSIS < 15 (0-50); Lipase 125 U/L (23-300); Potassium 3.5 mmol/L (3.4-5.1); Sodium 140 mmol/L (137-145); Total Protein 8.3 g/dL (6.3-8.2)
--- NOTE | 2024-04-26 17:21 | PC.NURSE ---
Discussed patient with Dr Dickerson, does not feel comfortable medicated for pain in lobby without assessment
[2024-04-26 17:40] LABS: Ictotest Urine Positive (Negative)
--- NOTE | 2024-04-26 17:46 | PC.NURSE ---
Addendum entered by Roxie Vu R.N. 04/26/24 17:49: Working on bringing patient back to a room to be evaluated by provider to address her pain. Original Note: Spoke in depth with patient regarding pain. States she doesn't recall what worked last time. She stated Tordal didn't help last time, took her meds prior to coming in with no relief. Patient states this pain is different than last time.
[2024-04-26 18:00] LABS: Urine Volume 10mL (unspun)
[2024-04-26 18:06] LABS: Amorphous Sediment Urine 4+; Bacteria Urine None Seen; Mucus Urine 1+ (Negative); RBC Urine None Seen (0-5/HPF); Squamous Epithelial Cell Urine 1-5 /HPF (0-5/HPF); WBC Urine 5-10/HPF (0-5/HPF)
[2024-04-26 18:07] LABS: Culture Indicated Urine Specimen Cultured
--- NOTE | 2024-04-26 19:05 | ED.GENADULT ---
HPI - General Adult General Chief complaint: Abdominal Pain Stated complaint: ABD pain, vomiting Time Seen by Provider: 04/26/24 18:16 Source: patient Mode of arrival: Ambulatory History of Present Illness HPI narrative: 43-year-old woman with a long history of recurrent abdominal pain possible abdominal migraine has had exploratory laparotomy recently noted to have adhesions, post appendectomy, cholecystectomy hysterectomy, left oophorectomy. Began having some nausea and vomiting with watery diarrhea last night. Increasing abdominal pain and she describes this as the worst pain that she is ever experienced despite the multiple episodes of recurrent abdominal pain. Describes deep cramping, is not passing gas but does note watery nonbloody diarrhea. No vaginal discharge is not specifically complaining of dysuria. No fevers but she is diaphoretic from the cramping and abdominal pain. No cough palpitations or headache Related Data Home Medications Medication Instructions Recorded Confirmed alprazolam 0.5 mg tablet 0.5 mg PO BID PRN Anxiety 05/06/23 04/26/24 phentermine 37.5 mg tablet 37.5 mg PO QAM 04/26/24 04/26/24 sumatriptan succinate 50 mg tablet 50 mg PO DAILY PRN Headache 04/26/24 04/26/24 Previous Rx's Medication Instructions Recorded topiramate 50 mg tablet 50 mg PO BID #60 tabs 04/02/24 Allergies Allergy/AdvReac Type Severity Reaction Status Date / Time gluten Allergy Celiac Verified 03/13/24 19:07 coconut AdvReac Intermediate Hives Verified 03/13/24 19:07 NSAIDS (Non-Steroidal AdvReac Mild Gastrointestinal Verified 03/13/24 19:07 Anti-Inflamma Upset benzonatate AdvReac Unknown Hives Verified 03/13/24 19:07 [From Tessalon Perles] escitalopram [From Lexapro] AdvReac Unknown Hallucinati Verified 03/13/24 19:07 ng Review of Systems Review of Systems Narrative: Pertinent positive and negative findings as per HPI Patient History Medical History Left corneal abrasion Headache Polycystic ovary disease Celiac disease GERD with apnea Hypertension Bipolar disorder Surgical History Status post tubal ligation History of section H/O abdominoplasty H/O oophorectomy H/O gastric sleeve History of cholecystectomy History of appendectomy Social History marital status: household members: significant other and children lives independently: Yes occupational status: employed Smoking Status: Never smoker alcohol intake: current substance use type: marijuana Smoking Status: Never smoker alcohol intake frequency: holidays/special occasions only Substance Use Type: marijuana Exam Initial Vital Signs Initial Vital Signs: Vital Signs Temperature 98.2 F 04/26/24 14:16 Pulse Rate 119 H 04/26/24 14:16 Respiratory Rate 24 04/26/24 14:16 Blood Pressure 172/91 H 04/26/24 14:16 Pulse Oximetry 97 04/26/24 14:16 Oxygen Delivery Method Room Air 04/26/24 14:16 General: Pale, diaphoretic in significant distress rocking bed for comfort HEENT: Moist mucous membranes, normal sclera with reactive pupils, Respiratory: Lungs are clear to auscultation, no wheezing no rales no rhonchi. Full and symmetrical air movement Cardiac: Tachycardic but otherwise Regular rate and rhythm no murmurs no bruits Abdomen: Mild distention, moderate diffuse pain without rebound or guarding, no flank pain Skin: Pale and diaphoretic Neurologic: Grossly neurologically intact with no obvious asymmetries or abnormalities Extremities: No trauma, well perfused Psych: Cooperative, appropriate insight and affect Course Orders Ordered: ED Orders 04/26/24 19:22 CT abdomen pelvis w con Stat 04/26/24 19:23 GI Panel (Film Array) Stat 04/26/24 19:45 Blood Culture Stat Lactate (Lactic Acid) Stat Hydromorphone HCl (Hydromorphone 0.5 Mg Inj) 0.5 mg IV Q15MIN PRN PRN Reason: Pain, Last Admin: 04/26/24 21:58 Dose: 0.5 mg Documented By: Admin: 04/26/24 19:46 Dose: 0.5 mg Documented By: MLM Hydromorphone HCl (Hydromorphone 0.5 Mg Inj) 0.5 mg IV Q2H PRN PRN Reason: Pain, Severe (7-10) Potassium Chloride/Sodium Chloride (Ns With Kcl 20 Meq) 1,000 mls @ 100 mls/hr IV CONT BENITO Metoclopramide HCl (Metoclopramide 10 Mg/2 Ml Inj) 10 mg IV Q8HR PRN PRN Reason: Nausea And Vomiting Naloxone HCl (Naloxone 0.4 Mg/Ml Vial) 0.2 mg IV Q2MIN PRN PRN Reason: Opiate Reversal Ondansetron HCl (Ondansetron 4 Mg/2 Ml Inj) 4 mg IV NOW PRN PRN Reason: Nausea And Vomiting Last Admin: 04/26/24 14:30 Dose: 4 mg Documented By: ROSIBEL Ondansetron HCl (Ondansetron 4 Mg Odt) 4 mg PO NOW PRN PRN Reason: Nausea And Vomiting Ondansetron HCl (Ondansetron 4 Mg/2 Ml Inj) 4 mg IV Q8HR PRN PRN Reason: Nausea And Vomiting Discontinued Medications Hydromorphone HCl (Hydromorphone 1 Mg Inj) 1 mg IV NOW ONE Stop: 04/26/24 19:06 Last Admin: 04/26/24 19:18 Dose: 1 mg Documented By: CAROLYN Sodium Chloride (Normal Saline 0.9%) 1,000 mls @ 1,000 mls/hr IV BOLUS ONE Stop: 04/26/24 15:20 Last Infusion: 04/26/24 15:58 Dose: Infused Documented By: Admin: 04/26/24 14:30 Dose: 1,000 mls/hr Documented By: ROSIBEL Sodium Chloride (Normal Saline 0.9%) 1,000 mls @ 1,000 mls/hr IV BOLUS ONE Stop: 04/26/24 20:04 Last Infusion: 04/26/24 22:19 Dose: Infused Documented By: Admin: 04/26/24 19:17 Dose: 1,000 mls/hr Documented By: CAROLYN Ceftriaxone Sodium 2,000 mg/ (Sodium Chloride) 100 mls @ 200 mls/hr IV NOW ONE Stop: 04/26/24 19:06 Last Infusion: 04/26/24 20:14 Dose: Infused Documented By: Admin: 04/26/24 19:46 Dose: 200 mls/hr Documented By: CAROLYN Metoclopramide HCl (Metoclopramide 10 Mg/2 Ml Inj) 10 mg IV NOW ONE Stop: 04/26/24 21:48 Last Admin: 04/26/24 21:58 Dose: 10 mg Documented By: JAN Ondansetron HCl (Ondansetron 4 Mg/2 Ml Inj) 4 mg IV NOW ONE Stop: 04/26/24 19:06 Last Admin: 04/26/24 19:18 Dose: 4 mg Documented By: CAROLYN Vital Signs Vital signs: Vital Signs - 8 hr 04/26/24 17:56 04/26/24 17:57 04/26/24 18:00 Pulse Rate 71 81 Blood Pressure 138/98 H Pulse Oximetry 100 100 04/26/24 18:01 04/26/24 18:30 04/26/24 18:31 Pulse Rate 79 66 66 Blood Pressure Pulse Oximetry 100 100 100 04/26/24 19:00 04/26/24 20:00 04/26/24 20:07 Pulse Rate 73 85 Blood Pressure 121/78 Pulse Oximetry 100 100 04/26/24 20:07 04/26/24 20:30 04/26/24 20:30 Pulse Rate 93 H 66 Blood Pressure 108/83 Pulse Oximetry 100 100 04/26/24 21:00 04/26/24 21:02 04/26/24 21:02 Pulse Rate 80 85 Blood Pressure 137/80 Pulse Oximetry 99 100 04/26/24 21:30 04/26/24 21:31 04/26/24 21:31 Pulse Rate 73 87 Blood Pressure 137/94 H Pulse Oximetry 99 99 Medical Decision Making Lab Data 04/26/24 14:23 04/26/24 14:23 Labs: Lab Results 04/26/24 04/26/24 04/26/24 Range/Units 14:23 14:38 19:45 WBC 13.0 H (4.5-11.0) X10^3/uL RBC 4.96 (4.0-5.2) X10^6/uL Hgb 14.0 (12.0-16.0) g/dL Hct 41.6 (36-46) % MCV 83.9 (80-100) fL MCH 28.2 (26-34) PG MCHC 33.6 (30-36) % RDW 14.8 (11.6-14.8) % Plt Count 437 H (150-400) X10^3/uL Neut % (Auto) 68.0 (50-75) % Lymph % (Auto) 23.2 L (25-40) % Evangeline % (Auto) 7.8 (3-14) % Eos % (Auto) 0.3 L (2-4) % Baso % (Auto) 0.7 (0-2) % Neut # (Auto) 8800 H (3996-3802) /uL Lymph # (Auto) 3000 (1149-6733) /uL Evangeline # (Auto) 1000 H (0-900) /uL Eos # (Auto) 0 (0-450) /uL Baso # (Auto) 100 (0-100) /uL Sodium 140 (137-145) mmol/L Potassium 3.5 (3.4-5.1) mmol/L Chloride 112 H (98-107) mmol/L Carbon Dioxide 14 L (22-32) mmol/L BUN 16 (7-17) mg/dL Creatinine 0.75 (0.52-1.04) mg/dL Estimated GFR > 60 (>60) mL/min BUN/Creatinine Ratio 21.3 (6-22) Glucose 129 H (70-100) mg/dL Lactate 1.4 (0.7-2.1) mmol/L Calcium 10.1 (8.4-10.2) mg/dL Total Bilirubin 1.5 H (0.2-1.3) mg/dL AST 22 (14-36) IU/L ALT 23 (<35) IU/L Alkaline Phosphatase 75 (38-126) U/L Total Protein 8.3 H (6.3-8.2) g/dL Albumin 5.0 (3.5-5.0) g/dL Globulin 3.3 (1.7-4.1) g/dL Albumin/Globulin Ratio 1.5 (1.0-2.8) Lipase 125 (23-300) U/L Ur Bilirubin Confirm Positive H (Negative) Urine RBC None seen (0-5/HPF) Urine WBC 5-10/hpf H (0-5/HPF) Ur Squamous Epith Cells 1-5 /hpf D (0-5/HPF) Amorphous Sediment 4+ Urine Bacteria None seen (None) Urine Mucus 1+ H (Negative) Ur Culture Indicated? Specimen cultured Vol Urine Centrifuged 10ml (unspun) A Urine Dip Bedside Urine Glucose 100 mg/dl Bedside Urine Bilirubin ++ 2 Bedside Urine Ketone +/- 5 Urine Specific [place] 1.030 Bedside Urine Occult Blood - Negative Bedside Urine pH 6.0 Bedside Urine Protein ++ 100 Bedside Urine Urobilinogen - Negative Bedside Urine Nitrite - Negative Bedside Urine Leukocytes +/- 15 Esterase Point of care testing: Urine Dip Bedside Urine Glucose 100 mg/dl Bedside Urine Bilirubin ++ 2 Bedside Urine Ketone +/- 5 Urine Specific [place] 1.030 Bedside Urine Occult Blood - Negative Bedside Urine pH 6.0 Bedside Urine Protein ++ 100 Bedside Urine Urobilinogen - Negative Bedside Urine Nitrite - Negative Bedside Urine Leukocytes +/- [address] scan - abdomen/pelvis: Radiologist's Impression: PROCEDURE: CT ABDOMEN PELVIS W CON INDICATIONS: recurrent abdominal pain TECHNIQUE: After the administration of intravenous contrast, axial sections acquired from the lung bases to the pubic symphysis. Coronal and sagittal reformats were performed. For radiation dose reduction, the following was used: automated exposure control, adjustment of mA and/or kV according to patient size. COMPARISON: [facility], CT, CT ABDOMEN PELVIS W CON, 03/31/2024, 10:02. FINDINGS: Image quality: Diagnostic. Lower Chest: No significant findings. ABDOMEN: Liver: No solid mass. Hepatic steatosis. Gallbladder: Removed Biliary ducts: No biliary dilation. Pancreas: No ductal dilation. Spleen: Size is within normal limits. Unchanged splenic cyst. Adrenal Glands: No adrenal nodules. Kidneys and Ureters: No hydronephrosis. No solid mass. No complex renal cystic lesion which requires follow up. Stomach and Bowel: Normal colonic caliber, without significant wall thickening. Diverticulosis. Partial gastrectomy changes are present. A appendix is been removed. Peritoneum: No abnormal intraperitoneal fluid. No free air. Ventral Wall: No significant ventral hernia. Abdominal Nodes: No retroperitoneal or mesenteric adenopathy by size criteria. Vessels: Aorta and inferior vena cava are normal in size. PELVIS: Pelvic Organs: Unremarkable. Bladder: No bladder wall thickening, accounting for underdistention. Pelvic Nodes: No enlarged lymph nodes. Miscellaneous: No inguinal hernias are seen. Bones: No aggressive osseous abnormality. IMPRESSION: No visualized acute intra-abdominal or pelvic process. Diverticulosis. Dictated by: Gisselle Hernandes M.D. on 04/26/2024 at 20:27 MDM Narrative Medical decision making narrative: CC: Severe recurrent abdominal pain Complicating co-morbidities: Are significant abdominal pain, excessive amounts of CT scans, exploratory surgery Data collected from: patient Medical records reviewed: Surgical consult, admissions, workup and extensive CTs over the last 12 months are reviewed Differential considered: Obstruction, gastroenteritis, abscess Exam documented above, pertinent findings include: Patient appears a acutely ill, pale and diaphoretic secondary to pain, clutching her abdomen but does not have rebound or guarding at this time. Lab Test results independently reviewed as above. Pertinent findings: CBC shows leukocytosis at 13 with minimal left shift. No significant anemia Chemistries show no significant pathology Imaging studies independently reviewed: We did review the extensive number of CT scan she has had in the last 12 months alone, 11 including multiple pelvic ultrasounds, recent Gastrografin study and angiogram. Given the worsening pain new findings leukocytosis with shared decision-making we opted to repeat a CT scan today. Treatments: Fluids, Reglan, Dilaudid, ceftriaxone, Dilaudid, Zofran Discussion: 43-year-old woman with severe abdominal pain uncertain etiology. This last year she has had multiple episodes of abdominal pain none this severe. She is had extensive workup including exploratory laparoscopy with diagnosis adhesions. He has been having watery diarrhea, low-grade fevers, severe and unrelenting pain. Given the slight white count in the abdominal pain with shared decision-making we did repeat a CT scan that did not have any obvious abnormalities. She still has a stool PCR panel pending. After fluids, antiemetics, narcotic pain medication she is still in a significant amount of pain. Care is reviewed with Dr. Quispe are general surgeon who will consult. At this point there is not an acute surgical finding. Reviewed with our hospitalist and due to the pain severity, inability to eat and drink will admit for observation and continued fluids over the evening. At this point there was no evidence of intra-abdominal abscess, obvious bowel obstruction, free air or blood in the abdomen or pelvis, I do not suspect mesenteric ischemia, based on the CT scan findings she does not have severe colitis however her diarrhea may certainly be waking her chronic abdominal pain worse. Discharge Plan Departure Patient Disposition: Admitted As Inpatient Clinical Impression: Abdominal pain Qualifiers: Abdominal location: generalized Qualified Code(s): R10.84 - Generalized abdominal pain Diarrhea Qualifiers: Diarrhea type: unspecified type Qualified Code(s): R19.7 - Diarrhea, unspecified Admit Date/Time: 04/26/24 21:36 Admit Provider: Rivera Dacosta
[2024-04-26] MEDS: HYDROMORPHONE 1 MG INJ IV (19:18)
--- NOTE | 2024-04-26 19:22 | DI.CT.S_ITS ---
PROCEDURE: CT ABDOMEN PELVIS W CON INDICATIONS: recurrent abdominal pain TECHNIQUE: After the administration of intravenous contrast, axial sections acquired from the lung bases to the pubic symphysis. Coronal and sagittal reformats were performed. For radiation dose reduction, the following was used: automated exposure control, adjustment of mA and/or kV according to patient size. COMPARISON: [facility], CT, CT ABDOMEN PELVIS W CON, 03/31/2024, 10:02. FINDINGS: Image quality: Diagnostic. Lower Chest: No significant findings. ABDOMEN: Liver: No solid mass. Hepatic steatosis. Gallbladder: Removed Biliary ducts: No biliary dilation. Pancreas: No ductal dilation. Spleen: Size is within normal limits. Unchanged splenic cyst. Adrenal Glands: No adrenal nodules. Kidneys and Ureters: No hydronephrosis. No solid mass. No complex renal cystic lesion which requires follow up. Stomach and Bowel: Normal colonic caliber, without significant wall thickening. Diverticulosis. Partial gastrectomy changes are present. A appendix is been removed. Peritoneum: No abnormal intraperitoneal fluid. No free air. Ventral Wall: No significant ventral hernia. Abdominal Nodes: No retroperitoneal or mesenteric adenopathy by size criteria. Vessels: Aorta and inferior vena cava are normal in size. PELVIS: Pelvic Organs: Unremarkable. Bladder: No bladder wall thickening, accounting for underdistention. Pelvic Nodes: No enlarged lymph nodes. Miscellaneous: No inguinal hernias are seen. Bones: No aggressive osseous abnormality. IMPRESSION: No visualized acute intra-abdominal or pelvic process. Diverticulosis. Dictated by: Gisselle Hernandes M.D. on 04/26/2024 at 20:27 Approved by: Gisselle Hernandes M.D. on 04/26/2024 at 20:29
[2024-04-26] MEDS: HYDROMORPHONE 0.5 MG INJ IV ×2 (19:46→21:58)
[2024-04-26] MEDS: cefTRIAXone 2,000 MG in SODIUM CHLORIDE 0.9% 100 ML 200 MG IV (19:46)
[2024-04-26 20:04] LABS: Lactate (Lactic Acid) 1.4 mmol/L (0.7-2.1)
[2024-04-26] MEDS: METOCLOPRAMIDE 10 MG/2 ML INJ IV (21:58)
[2024-04-27] MEDS: HYDROMORPHONE 0.5 MG INJ IV ×7 (00:11→20:03)
[2024-04-27] MEDS: KCL 20 MEQ IN NS 1,000 ML 100 MEQ IV ×3 (00:13→20:03)
[2024-04-27] MEDS: ONDANSETRON 4 MG/2 ML INJ IV ×2 (03:31→11:39)
[2024-04-27 03:52] VITALS: BP 130/86; PULSE 84; RESP 18; TEMP 36.4; O2SAT 98
[2024-04-27 05:27] LABS: Add Manual Diff / Slide Review NO; Basophils Absolute Auto 100 /uL (0-100); Basophils Percent Auto 0.7 % (0-2); Eosinophils Absolute Auto 100 /uL (0-450); Eosinophils Percent Auto 0.8 % (2-4); Hemoglobin 11.8 g/dL (12.0-16.0); Lymphocytes Absolute Auto 4700 /uL (1100-4500); Lymphocytes Percent Auto 37.1 % (25-40); Mean Corpuscular HGB Conc 33.6 % (30-36); Mean Corpuscular Hemoglobin 28.2 PG (26-34); Mean Corpuscular Volume 84.1 fL (80-100); Monocytes Absolute Auto 1100 /uL (0-900); Monocytes Percent Auto 8.7 % (3-14); Neutrophils Absolute Auto 6700 /uL (1500-7000); Neutrophils Percent Auto 52.7 % (50-75); Platelet Count 340 X10^3/uL (150-400); Red Blood Cell Count 4.17 X10^6/uL (4.0-5.2); Red Cell Distribution Width 14.7 % (11.6-14.8); White Blood Cell Count 12.7 X10^3/uL (4.5-11.0)
[2024-04-27 05:42] LABS: Alanine Aminotransferase 20 IU/L (<35); Albumin 4.1 g/dL (3.5-5.0); Albumin Globulin Ratio 1.5 (1.0-2.8); Alkaline Phosphatase 64 U/L (38-126); Aspartate Aminotransferase 18 IU/L (14-36); Bilirubin Total 1.3 mg/dL (0.2-1.3); Blood Urea Nitrogen 11 mg/dL (7-17); Calcium 8.7 mg/dL (8.4-10.2); Carbon Dioxide 18 mmol/L (22-32); Chloride 112 mmol/L (98-107); Estimated Glomerular Filt Rate > 60 mL/min (>60); Globulin 2.8 g/dL (1.7-4.1); Glucose 98 mg/dL (70-100); HEMOLYSIS < 15 (0-50); Phosphorous 2.7 mg/dL (2.5-4.5); Potassium 3.5 mmol/L (3.4-5.1); Sodium 139 mmol/L (137-145); Total Protein 6.9 g/dL (6.3-8.2)
--- NOTE | 2024-04-27 05:46 | PM.HP.1 ---
History of Present Illness History of Present Illness Date Patient Seen: 04/26/24 Time Patient Seen: 23:40 Chief complaint: ABD pain, vomiting Narrative: 43 years old female with a past medical history of obesity, gastric bypass surgery in 2017, anxiety/bipolar disorder, abdominal migraine requiring recent hospitalizations, GERD and multiple other medical issues presented to the emergency room for intractable abdominal pain with nausea and vomiting that is nonbloody. Denies any fever episodes. Pain is generalized. Denies any shortness of breath or chest pain. No palpitation dizziness. Appetite has been poor and does have a source of diarrhea that is nonbloody. In the emergency room patient was noted to have diffuse abdominal pain with no rebounding or guarding. Labs revealed a white count of 13.0 with a hemoglobin of 14.0. Sodium is 140 with a potassium of 3.5, lactate of 1.4. LFTs were normal. Urinalysis show 5-10 WBCs and no bacteria. Negative for nitrites. CT abdomen shows no acute process. Patient received IV fluids and IV pain medications with no relief in the emergency room and subsequently admitted for further evaluation [facility] Medical History Left corneal abrasion Headache Polycystic ovary disease Celiac disease GERD with apnea Hypertension Bipolar disorder Surgical History Status post tubal ligation History of section H/O abdominoplasty H/O oophorectomy H/O gastric sleeve History of cholecystectomy History of appendectomy Social History marital status: household members: significant other and children lives independently: Yes occupational status: employed Smoking Status: Never smoker alcohol intake: current substance use type: marijuana Meds Home Medications and Allergies Home Medications Medication Instructions Recorded Confirmed Type alprazolam 0.5 mg tablet 0.5 mg PO BID PRN Anxiety 05/06/23 04/26/24 History topiramate 50 mg tablet 50 mg PO BID #60 tabs 04/02/24 04/26/24 Rx phentermine 37.5 mg tablet 37.5 mg PO QAM 04/26/24 04/26/24 History sumatriptan succinate 50 mg tablet 50 mg PO DAILY PRN Headache 04/26/24 04/26/24 History Allergies Allergy/AdvReac Type Severity Reaction Status Date / Time gluten Allergy Celiac Verified 03/13/24 19:07 coconut AdvReac Intermediate Hives Verified 03/13/24 19:07 NSAIDS (Non-Steroidal AdvReac Mild Gastrointestinal Verified 03/13/24 19:07 Anti-Inflamma Upset benzonatate AdvReac Unknown Hives Verified 03/13/24 19:07 [From Tessalon Perles] escitalopram [From Lexapro] AdvReac Unknown Hallucinati Verified 03/13/24 19:07 ng Review of Systems Review of Systems Narrative: A 12 point review of system is negative unless otherwise stated in the history of present illness Exam Vital Signs (past 8 hours): - 04/26/24 23:35 04/27/24 03:52 Temperature 97.2 F L 97.5 F L Pulse Rate 73 84 Respiratory Rate 18 18 Blood Pressure 128/80 130/86 Pulse Oximetry 100 98 Oxygen Flow Rate 0 0 Oxygen Delivery Method Room Air Oxygen Flow Rate 0 Narrative Exam Narrative: Patient is awake and appear to be inpain. as examined by RN Rs:air entry equal B/L Abd: soft/BS+ No edema noted in the lower extremities Objective Labs 04/27/24 05:05 04/27/24 05:05 Labs: Laboratory Results - last 24 hr 04/26/24 04/26/24 04/26/24 14:23 14:38 19:45 WBC 13.0 H RBC 4.96 Hgb 14.0 Hct 41.6 MCV 83.9 MCH 28.2 MCHC 33.6 RDW 14.8 Plt Count 437 H Neut % (Auto) 68.0 Lymph % (Auto) 23.2 L Ogle % (Auto) 7.8 Eos % (Auto) 0.3 L Baso % (Auto) 0.7 Neut # (Auto) 8800 H Lymph # (Auto) 3000 Ogle # (Auto) 1000 H Eos # (Auto) 0 Baso # (Auto) 100 Sodium 140 Potassium 3.5 Chloride 112 H Carbon Dioxide 14 L BUN 16 Creatinine 0.75 Estimated GFR > 60 BUN/Creatinine Ratio 21.3 Glucose 129 H Lactate 1.4 Calcium 10.1 Phosphorus Magnesium Total Bilirubin 1.5 H AST 22 ALT 23 Alkaline Phosphatase 75 Total Protein 8.3 H Albumin 5.0 Globulin 3.3 Albumin/Globulin Ratio 1.5 Lipase 125 Ur Bilirubin Confirm Positive H Urine RBC None seen Urine WBC 5-10/hpf H Ur Squamous Epith Cells 1-5 /hpf D Amorphous Sediment 4+ Urine Bacteria None seen Urine Mucus 1+ H Ur Culture Indicated? Specimen cultured Vol Urine Centrifuged 10ml (unspun) A 04/27/24 05:05 WBC 12.7 H RBC 4.17 Hgb 11.8 L Hct 35.0 L MCV 84.1 MCH 28.2 MCHC 33.6 RDW 14.7 Plt Count 340 Neut % (Auto) 52.7 Lymph % (Auto) 37.1 Ogle % (Auto) 8.7 Eos % (Auto) 0.8 L Baso % (Auto) 0.7 Neut # (Auto) 6700 Lymph # (Auto) 4700 H Ogle # (Auto) 1100 H Eos # (Auto) 100 Baso # (Auto) 100 Sodium 139 Potassium 3.5 Chloride 112 H Carbon Dioxide 18 L BUN 11 Creatinine 0.50 L Estimated GFR > 60 BUN/Creatinine Ratio 22.0 Glucose 98 Lactate Calcium 8.7 Phosphorus 2.7 Magnesium 2.0 Total Bilirubin 1.3 AST 18 ALT 20 Alkaline Phosphatase 64 Total Protein 6.9 Albumin 4.1 Globulin 2.8 Albumin/Globulin Ratio 1.5 Lipase Ur Bilirubin Confirm Urine RBC Urine WBC Ur Squamous Epith Cells Amorphous Sediment Urine Bacteria Urine Mucus Ur Culture Indicated? Vol Urine Centrifuged Assessment & Plan Assessment & Plan narrative: 43 years old female with a past medical history of obesity, gastric bypass surgery in 2017, anxiety/bipolar disorder, abdominal migraine requiring recent hospitalizations, GERD and multiple other medical issues presented to the emergency room for intractable abdominal pain with nausea and vomiting that is nonbloody. Denies any fever episodes. Pain is generalized. Denies any shortness of breath or chest pain. No palpitation dizziness. Appetite has been poor and does have a source of diarrhea that is nonbloody. In the emergency room patient was noted to have diffuse abdominal pain with no rebounding or guarding. Labs revealed a white count of 13.0 with a hemoglobin of 14.0. Sodium is 140 with a potassium of 3.5, lactate of 1.4. LFTs were normal. Urinalysis show 5-10 WBCs and no bacteria. Negative for nitrites. CT abdomen shows no acute process. Patient received IV fluids and IV pain medications with no relief in the emergency room and subsequently admitted for further evaluation 1 abdominal pain with a diagnosis of abdominal migraine during the previous hospitalization. Etiology is unclear at this time. Apparently amitriptyline may have helped in the past. Follow-up eventually with GI for further evaluation. In the meantime continue IV Dilaudid for better pain control and IV fluids given the poor p.o. intake 2 hypokalemia supplement with IV potassium and trend the levels closely 3 nausea with vomiting. IV Zofran as needed in addition to Reglan. Reports symptom improvement with Reglan and may need to check if there is an element of gastroparesis 4. Anxiety. Resume the home Xanax 5 GERD/GI prophylaxis with Protonix drip 6 DVT prophylaxis will be with SCDs/ambulation Patient will be admitted under observation status Patient was evaluated with the help of video communication device. Location of the patient is [facility] Time-Based Coding :: [TOTAL MINUTES] spent with patient and on the chart (including review of chart, obtaining history, exam, reviewing outside data, placing orders, documenting exam and treatment plan, and counseling patient) on [DATE]. Quality VTE Deep Vein Thrombosis/Pulmonary Embolism Present on Admission: No
[2024-04-27] MEDS: METOCLOPRAMIDE 10 MG/2 ML INJ IV ×2 (06:14→17:14)
[2024-04-27] MEDS: PANTOPRAZOLE DR 40 MG TABLET PO (06:14)
[2024-04-27] MEDS: TOPIRAMATE 25 MG TABLET 50 MG PO ×2 (08:53→20:03)
--- NOTE | 2024-04-27 10:00 | PM.CN ---
History of Present Illness Consult details Date Patient Seen: 04/27/24 Time Patient Seen: 10:00 Chief complaint: ABD pain, vomiting Narrative: Janet is a 43-year-old woman well known to the Surgical Service who presented to the emergency department last night with severe abdominal pain. Her past history is significant for multiple abdominal surgeries including a gastric sleeve, a hysterectomy and an exploratory laparotomy and lysis of adhesions [address] Mendoza for abdominal pain. She has known intra-abdominal adhesions. She had a CT scan last night which showed no bowel obstruction no obvious etiology for her abdominal pain. She feels slightly better today. She reports that she has not eaten for 5 days because of abdominal pain, nausea and vomiting. Her reports that she experiences these symptoms every 3 days but she states that her pain yesterday was worse than anything she has ever experienced before. She has been evaluated by the bariatric surgery service at [facility] for bile reflux gastritis but it sounds like there is no plan for any further surgery at this time. Meds Home Medications and Allergies Home Medications Medication Instructions Recorded Confirmed Type alprazolam 0.5 mg tablet 0.5 mg PO BID PRN Anxiety 05/06/23 04/26/24 History topiramate 50 mg tablet 50 mg PO BID #60 tabs 04/02/24 04/26/24 Rx phentermine 37.5 mg tablet 37.5 mg PO QAM 04/26/24 04/26/24 History sumatriptan succinate 50 mg tablet 50 mg PO DAILY PRN Headache 04/26/24 04/26/24 History Allergies Allergy/AdvReac Type Severity Reaction Status Date / Time gluten Allergy Celiac Verified 03/13/24 19:07 coconut AdvReac Intermediate Hives Verified 03/13/24 19:07 NSAIDS (Non-Steroidal AdvReac Mild Gastrointestinal Verified 03/13/24 19:07 Anti-Inflamma Upset benzonatate AdvReac Unknown Hives Verified 03/13/24 19:07 [From Tessalon Perles] escitalopram [From Lexapro] AdvReac Unknown Hallucinati Verified 03/13/24 19:07 ng Exam Vital Signs (past 8 hours): - 04/27/24 03:52 Temperature 97.5 F L Pulse Rate 84 Respiratory Rate 18 Blood Pressure 130/86 Pulse Oximetry 98 Oxygen Flow Rate 0 Oxygen Delivery Method Room Air Oxygen Flow Rate 0 Narrative Exam Narrative: Midline periumbilical surgical scar Tender to palpation in the right lower quadrant without carol peritonitis Objective Labs 04/27/24 05:05 04/27/24 05:05 Labs: Laboratory Results - last 24 hr 04/26/24 04/26/24 04/26/24 14:23 14:38 19:45 WBC 13.0 H RBC 4.96 Hgb 14.0 Hct 41.6 MCV 83.9 MCH 28.2 MCHC 33.6 RDW 14.8 Plt Count 437 H Neut % (Auto) 68.0 Lymph % (Auto) 23.2 L Craig % (Auto) 7.8 Eos % (Auto) 0.3 L Baso % (Auto) 0.7 Neut # (Auto) 8800 H Lymph # (Auto) 3000 Craig # (Auto) 1000 H Eos # (Auto) 0 Baso # (Auto) 100 Sodium 140 Potassium 3.5 Chloride 112 H Carbon Dioxide 14 L BUN 16 Creatinine 0.75 Estimated GFR > 60 BUN/Creatinine Ratio 21.3 Glucose 129 H Lactate 1.4 Calcium 10.1 Phosphorus Magnesium Total Bilirubin 1.5 H AST 22 ALT 23 Alkaline Phosphatase 75 Total Protein 8.3 H Albumin 5.0 Globulin 3.3 Albumin/Globulin Ratio 1.5 Lipase 125 Ur Bilirubin Confirm Positive H Urine RBC None seen Urine WBC 5-10/hpf H Ur Squamous Epith Cells 1-5 /hpf D Amorphous Sediment 4+ Urine Bacteria None seen Urine Mucus 1+ H Ur Culture Indicated? Specimen cultured Vol Urine Centrifuged 10ml (unspun) A 04/27/24 05:05 WBC 12.7 H RBC 4.17 Hgb 11.8 L Hct 35.0 L MCV 84.1 MCH 28.2 MCHC 33.6 RDW 14.7 Plt Count 340 Neut % (Auto) 52.7 Lymph % (Auto) 37.1 Craig % (Auto) 8.7 Eos % (Auto) 0.8 L Baso % (Auto) 0.7 Neut # (Auto) 6700 Lymph # (Auto) 4700 H Craig # (Auto) 1100 H Eos # (Auto) 100 Baso # (Auto) 100 Sodium 139 Potassium 3.5 Chloride 112 H Carbon Dioxide 18 L BUN 11 Creatinine 0.50 L Estimated GFR > 60 BUN/Creatinine Ratio 22.0 Glucose 98 Lactate Calcium 8.7 Phosphorus 2.7 Magnesium 2.0 Total Bilirubin 1.3 AST 18 ALT 20 Alkaline Phosphatase 64 Total Protein 6.9 Albumin 4.1 Globulin 2.8 Albumin/Globulin Ratio 1.5 Lipase Ur Bilirubin Confirm Urine RBC Urine WBC Ur Squamous Epith Cells Amorphous Sediment Urine Bacteria Urine Mucus Ur Culture Indicated? Vol Urine Centrifuged PFS Medical History Left corneal abrasion Headache Polycystic ovary disease Celiac disease GERD with apnea Hypertension Bipolar disorder Surgical History Status post tubal ligation History of section H/O abdominoplasty H/O oophorectomy H/O gastric sleeve History of cholecystectomy History of appendectomy Social History marital status: household members: significant other and children lives independently: Yes occupational status: employed Tobacco & Substance Use Smoking Status: Never smoker alcohol intake: current substance use type: marijuana Assessment & Plan Assessment and plan (1) Abdominal pain: Qualifiers: Abdominal location: generalized Qualified Code(s): R10.84 - Generalized abdominal pain Status: Acute Plan There is no indication for emergency abdominal surgery. There is no clear etiology for her symptoms. Recommend trial of regular diet and discharged home if tolerates. She should follow up with her primary care doctor for issues of chronic abdominal pain, nausea and vomiting. Time-Based Coding :: [TOTAL MINUTES] spent with patient and on the chart (including review of chart, obtaining history, exam, reviewing outside data, placing orders, documenting exam and treatment plan, and counseling patient) on [DATE].
--- NOTE | 2024-04-27 11:29 | CM.DANOTE ---
Patient is a 43yo F admitted OBS Status on 04/26/24 for hypokalemia and intractable abdominal pain. Per MD, pt with hx of gastric bypass and bipolar and was recently admitted 03/14/24 and 03/31/24 last month for similar and likely could be due to gastric sleeve/abdominal migraine. MD to consult pt's surgeon in [place]. PCP Crow Burgos Payer: [employer] SW met bedside with pt and spouse and explained role and pt confirms she still lives at home in [place] with her spouse, child, and dog and works at [employer] at baseline. Pt is independent with mobility, does not use DME, drives and helps care for her child at home. Pt denies any hx of HH or SNF and spouse is her informal POA. Pt states she was feeling better after she discharged home earlier this month and was able to work and manage daily living but the past 4 days increased n/v/and pain. Pt sometimes tearful as she is frustrated about lack of dx and etiology of her ongoing symptoms. Pt confirms spouse will transport home at d/c. Pt has GI appointment scheduled for this month. Plan: SW to follow for pain management and hopeful clarification on etiology towards plan of discharge home with spouse and outpt f/u with GI. GIO López Discharge Planning/Care Management CM Discharge Assessment Start: 04/27/24 11:27 Freq: Status: Active Protocol: Document 04/27/24 11:27 BF (Rec: 04/27/24 11:29 BF [id number]) Discharge Planning Assessment Assigned Distribution Center Supervisor GIO Camilo DPOA/Assigned Designee Name informally spouse Advance Directives? No Advance Directives on File No History Provided By Patient,Significant Other, Medical Record Has Patient been admitted in last 30 No days? Comment admitted twice last month in March 2024 for similar and was able to d/c home Prior Living Arrangements House Household Members significant other,children Type of transporation used prior to Drives own vehicle admit Independent with ADL's Yes Is patient alert and oriented? Yes Caregiver for Another Yes: child at home Barriers to Discharge No Comment Home w/ S.O. expected Discharge Plan Home Transportation Arrangement Spouse can transport home at d /c Referrals Initiated None needed Whiteboard Updated in Patient Room with Yes name and ext. # of Distribution Center Supervisor Review Status In Process Please Provide Date Initial DC 04/27/24 Assessment Was Performed Next Review Type Continued Stay Review
[2024-04-27] MEDS: ALPRAZolam 0.25 MG TABLET 0.5 MG PO (11:39)
[2024-04-27 14:40] VITALS: BP 126/87; PULSE 67; RESP 17; TEMP 36.3; O2SAT 96
--- NOTE | 2024-04-27 16:33 | P.PN_ITS ---
Subjective Subjective Interval history: 43 F admitted with recurrent abdominal pain, nausea, vomiting. She has been unable to tolerate oral intake today. Continues to feel discomfort. Agreeable to trial of sumatriptan today. Exam Vital Signs (past 8 hours): - 04/27/24 14:40 Temperature 97.3 F L Pulse Rate 67 Respiratory Rate 17 Blood Pressure 126/87 Pulse Oximetry 96 Oxygen Flow Rate 0 Oxygen Delivery Method Room Air Oxygen Flow Rate 0 Narrative Exam Narrative: GENERAL: Ill appearing female in no acute distress, fatigued, pale. GASTROINTESTINAL: Abdomen soft, nondistended. EXTREMITIES: No clubbing, cyanosis, or edema. NEUROLOGIC: Alert, oriented, speech fluent, full upper and lower motor strength, no focal deficits evident. Objective Labs 04/27/24 05:05 04/27/24 05:05 Labs: Laboratory Results - last 24 hr 04/26/24 04/26/24 04/27/24 14:38 19:45 05:05 WBC 12.7 H RBC 4.17 Hgb 11.8 L Hct 35.0 L MCV 84.1 MCH 28.2 MCHC 33.6 RDW 14.7 Plt Count 340 Neut % (Auto) 52.7 Lymph % (Auto) 37.1 Leslie % (Auto) 8.7 Eos % (Auto) 0.8 L Baso % (Auto) 0.7 Neut # (Auto) 6700 Lymph # (Auto) 4700 H Leslie # (Auto) 1100 H Eos # (Auto) 100 Baso # (Auto) 100 Sodium 139 Potassium 3.5 Chloride 112 H Carbon Dioxide 18 L BUN 11 Creatinine 0.50 L Estimated GFR > 60 BUN/Creatinine Ratio 22.0 Glucose 98 Lactate 1.4 Calcium 8.7 Phosphorus 2.7 Magnesium 2.0 Total Bilirubin 1.3 AST 18 ALT 20 Alkaline Phosphatase 64 Total Protein 6.9 Albumin 4.1 Globulin 2.8 Albumin/Globulin Ratio 1.5 Ur Bilirubin Confirm Positive H Urine RBC None seen Urine WBC 5-10/hpf H Ur Squamous Epith Cells 1-5 /hpf D Amorphous Sediment 4+ Urine Bacteria None seen Urine Mucus 1+ H Ur Culture Indicated? Specimen cultured Vol Urine Centrifuged 10ml (unspun) A [facility] Medical History Left corneal abrasion Headache Polycystic ovary disease Celiac disease GERD with apnea Hypertension Bipolar disorder Surgical History Status post tubal ligation History of section H/O abdominoplasty H/O oophorectomy H/O gastric sleeve History of cholecystectomy History of appendectomy Social History marital status: household members: significant other and children lives independently: Yes occupational status: employed Smoking Status: Never smoker alcohol intake: current substance use type: marijuana Assessment & Plan Assessment & Plan narrative: 1. Intractable episodic nausea and vomiting, present on admission and active. Possible abdominal migraine. 2. Bipolar disorder, present on admission and active. 3. Gastroesophageal reflux disease, present on admission and active. 4. Celiac disease, present on admission and active. 5. Polycystic ovarian disease, present on admission and active. 6. Hypertension, present on admission and active. PLAN: -symptomatic treatment with analgesics and antiemetics. -IV fluid resuscitation. -trial sumatriptan -appreciate general surgery consultation, no surgical treatments recommended at this time. Remains observation today, if persistent symptoms change to inpatient. Code: Full. Time-Based Coding :: [TOTAL MINUTES] spent with patient and on the chart (including review of chart, obtaining history, exam, reviewing outside data, placing orders, documenting exam and treatment plan, and counseling patient) on [DATE]. Quality VTE Deep Vein Thrombosis/Pulmonary Embolism Present on Admission: No
[2024-04-27] MEDS: SUMAtriptan 6 MG/0.5 ML VIAL SUBCUT (17:15)
[2024-04-27 18:00] VITALS: BP 132/63; PULSE 66; RESP 16; TEMP 36.4; O2SAT 98
[2024-04-27 19:00] VITALS: BP 170/93; PULSE 74; RESP 20; TEMP 36.6; O2SAT 99
[2024-04-27] MEDS: SODIUM CHLORIDE 0.9% FLUSH 10 ML IV (20:04)
[2024-04-27 23:00] VITALS: BP 124/77; PULSE 69; RESP 20; TEMP 36.6; O2SAT 99
[2024-04-28] MEDS: HYDROMORPHONE 0.5 MG INJ IV ×3 (01:18→09:16)
[2024-04-28] MEDS: METOCLOPRAMIDE 10 MG/2 ML INJ IV ×2 (01:18→09:16)
[2024-04-28 05:30] VITALS: BP 144/90; PULSE 61; RESP 20; TEMP 36.6; O2SAT 99
[2024-04-28] MEDS: ONDANSETRON 4 MG/2 ML INJ IV (05:46)
[2024-04-28] MEDS: ALPRAZolam 0.25 MG TABLET 0.5 MG PO (05:47)
[2024-04-28] MEDS: KCL 20 MEQ IN NS 1,000 ML 100 MEQ IV (06:07)
[2024-04-28] MEDS: PANTOPRAZOLE DR 40 MG TABLET PO (06:07)
[2024-04-28 08:29] LABS: Add Manual Diff / Slide Review NO; Basophils Absolute Auto 100 /uL (0-100); Basophils Percent Auto 0.9 % (0-2); Eosinophils Absolute Auto 100 /uL (0-450); Eosinophils Percent Auto 0.9 % (2-4); Hematocrit 34.9 % (36-46); Hemoglobin 11.7 g/dL (12.0-16.0); Lymphocytes Absolute Auto 3500 /uL (1100-4500); Mean Corpuscular HGB Conc 33.4 % (30-36); Mean Corpuscular Hemoglobin 28.4 PG (26-34); Mean Corpuscular Volume 84.9 fL (80-100); Monocytes Absolute Auto 800 /uL (0-900); Neutrophils Absolute Auto 5300 /uL (1500-7000); Neutrophils Percent Auto 54.2 % (50-75); Platelet Count 290 X10^3/uL (150-400); Red Blood Cell Count 4.11 X10^6/uL (4.0-5.2); Red Cell Distribution Width 14.6 % (11.6-14.8); White Blood Cell Count 9.8 X10^3/uL (4.5-11.0)
[2024-04-28 08:42] LABS: Alanine Aminotransferase 18 IU/L (<35); Albumin 3.9 g/dL (3.5-5.0); Albumin Globulin Ratio 1.4 (1.0-2.8); Alkaline Phosphatase 58 U/L (38-126); Aspartate Aminotransferase 19 IU/L (14-36); Bilirubin Total 1.2 mg/dL (0.2-1.3); Blood Urea Nitrogen 5 mg/dL (7-17); Calcium 8.6 mg/dL (8.4-10.2); Carbon Dioxide 20 mmol/L (22-32); Chloride 109 mmol/L (98-107); Estimated Glomerular Filt Rate > 60 mL/min (>60); Globulin 2.7 g/dL (1.7-4.1); Glucose 87 mg/dL (70-100); HEMOLYSIS < 15 (0-50); Magnesium 1.9 mg/dL (1.6-2.3); Potassium 3.7 mmol/L (3.4-5.1); Sodium 137 mmol/L (137-145); Total Protein 6.6 g/dL (6.3-8.2)
[2024-04-28 08:56] VITALS: BP 117/70; PULSE 59; RESP 16; TEMP 37; O2SAT 100
[2024-04-28] MEDS: TOPIRAMATE 25 MG TABLET 50 MG PO (09:17)
[2024-04-28] MEDS: SODIUM CHLORIDE 0.9% FLUSH 10 ML IV (09:17)
[2024-04-28] MEDS: SUMAtriptan 6 MG/0.5 ML VIAL SUBCUT (10:40)
[2024-04-28 10:53] LABS: Adenovirus F 40/41 Not Detected (Not Detect); Astrovirus Not Detected (Not Detect); Campylobacter Not Detected (Not Detect); Clostridium difficile toxin AB Not Detected (Not Detect); Cryptosporidium Not Detected (Not Detect); Cyclospora cayetanensis Not Detected (Not Detect); Entamoeba histolytica Not Detected (Not Detect); Enteroaggregative E.coli Not Detected (Not Detect); Enteropathogenic E.coli Not Detected (Not Detect); Enterotoxigenic E.coli It/st Not Detected (Not Detect); Giardia lamblia Not Detected (Not Detect); Norovirus GI/GII Not Detected (Not Detect); Plesiomonsa shigelloides Not Detected (Not Detect); Rotavirus A Not Detected (Not Detect); Salmonella Not Detected (Not Detect); Sapovirus Not Detected (Not Detect); Shiga-like toxin-prod E.coli Not Detected (Not Detect); Shigella/Enteroinvasive E.coli Not Detected (Not Detect); Vibrio Not Detected (Not Detect); Vibrio cholerae Not Detected (Not Detect); Yersinia enterocolitica Not Detected (Not Detect)
--- NOTE | 2024-04-28 11:05 | P.DS_ITS ---
History of Present Illness History of Present Illness Date Patient Seen: 04/28/24 Time Patient Seen: 11:05 Chief complaint: ABD pain, vomiting Narrative: Per admitting provider, 43 years old female with a past medical history of obesity, gastric bypass surgery in 2017, anxiety/bipolar disorder, abdominal migraine requiring recent hospitalizations, GERD and multiple other medical issues presented to the emergency room for intractable abdominal pain with nausea and vomiting that is nonbloody. Denies any fever episodes. Pain is generalized. Denies any shortness of breath or chest pain. No palpitation dizziness. Appetite has been poor and does have a source of diarrhea that is nonbloody. In the emergency room patient was noted to have diffuse abdominal pain with no rebounding or guarding. Labs revealed a white count of 13.0 with a hemoglobin of 14.0. Sodium is 140 with a potassium of 3.5, lactate of 1.4. LFTs were normal. Urinalysis show 5-10 WBCs and no bacteria. Negative for nitrites. CT abdomen shows no acute process. Patient received IV fluids and IV pain medications with no relief in the emergency room and subsequently admitted for further evaluation Discharge Providers Provider Date of admission: 04/26/24 21:36 Discharge Date: 04/28/24 Primary care physician: Crow Burgos MD Discharge provider: Wiliam Gutierrez DO Summary Hospital Course Discharge Diagnosis: 1. Intractable episodic nausea and vomiting, present on admission and active. Possible abdominal migraine. 2. Bipolar disorder, present on admission and active. 3. Gastroesophageal reflux disease, present on admission and active. 4. Celiac disease, present on admission and active. 5. Polycystic ovarian disease, present on admission and active. 6. Hypertension, present on admission and active. Hospital Course: This is a 43 year old female admitted with recurrent abdominal pain, nausea, vomiting. She has a history of abdominal migraines. She improved with fluids, as well as a few doses of IM sumatriptan though it took a couple of days for her to be able to tolerate adequate oral intake to go home. Her home sumatriptan prescriptions were refilled, and she was given antiemetics and pain medications on discharge for a couple of days. Recommend continued follow up with PCP for preventative medications, though patient has had her topiramate increased recently and overall has improved. No other medication changes are recommended at the time of discharge. Time Spent with Patient Time spent: Greater than 30 minutes Exam Vital Signs (past 8 hours): - 04/28/24 05:30 04/28/24 08:56 Temperature 97.8 F 98.6 F Pulse Rate 61 59 L Respiratory Rate 20 16 Blood Pressure 144/90 H 117/70 Pulse Oximetry 99 100 Oxygen Flow Rate 0 Oxygen Delivery Method Room Air Oxygen Flow Rate 0 Narrative Exam Narrative: GENERAL: Ill appearing female in no acute distress, fatigued, pale. GASTROINTESTINAL: Abdomen soft, nondistended. EXTREMITIES: No clubbing, cyanosis, or edema. NEUROLOGIC: Alert, oriented, speech fluent, full upper and lower motor strength, no focal deficits evident. Objective Labs 04/28/24 08:11 04/28/24 08:11 Labs: Laboratory Results - last 24 hr 04/28/24 04/28/24 08:11 09:00 WBC 9.8 RBC 4.11 Hgb 11.7 L Hct 34.9 L MCV 84.9 MCH 28.4 MCHC 33.4 RDW 14.6 Plt Count 290 Neut % (Auto) 54.2 Lymph % (Auto) 36.0 Stanley % (Auto) 8.0 Eos % (Auto) 0.9 L Baso % (Auto) 0.9 Neut # (Auto) 5300 Lymph # (Auto) 3500 Stanley # (Auto) 800 Eos # (Auto) 100 Baso # (Auto) 100 Sodium 137 Potassium 3.7 Chloride 109 H Carbon Dioxide 20 L BUN 5 L Creatinine 0.50 L Estimated GFR > 60 BUN/Creatinine Ratio 10.0 Glucose 87 Calcium 8.6 Magnesium 1.9 Total Bilirubin 1.2 AST 19 ALT 18 Alkaline Phosphatase 58 Total Protein 6.6 Albumin 3.9 Globulin 2.7 Albumin/Globulin Ratio 1.4 Stl C. cayetanensis PCR Not detected Stool Rotavirus (PCR) Not detected Stool Adenovirus (PCR) Not detected Stool Astrovirus (PCR) Not detected Stool Cryptosporidium PCR Not detected Stl E.coli Shiga Tox PCR Not detected St Sh/Enteroin Ecoli PCR Not detected Stl Enterotoxigenic E PCR Not detected Stool EPEC (PCR) Not detected Stl E. histolytica PCR Not detected Stool Giardia Lamblia PCR Not detected Stool Sapovirus (PCR) Not detected Stl P. shigelloides PCR Not detected St Y.enterocolitica PCR Not detected Stool Vibrio (PCR) Not detected Stl Vibrio cholerae PCR Not detected Stl Enteroaggr Ecoli PCR Not detected Stl Norovirus GI/GII PCR Not detected Campylobacter (PCR) Not detected C. difficile Tox (PCR) Not detected Salmonella (PCR) Not detected PFSH Medical History Left corneal abrasion Headache Polycystic ovary disease Celiac disease GERD with apnea Hypertension Bipolar disorder Surgical History Status post tubal ligation History of section H/O abdominoplasty H/O oophorectomy H/O gastric sleeve History of cholecystectomy History of appendectomy Social History marital status: household members: significant other and children lives independently: Yes occupational status: employed Smoking Status: Never smoker alcohol intake: current substance use type: marijuana Discharge Plan Discharge Plan Patient Disposition: Home Provider Discharge Comment: You were admitted to the hospital with abdominal migraine. Sumatriptan re-prescribed. Please let us know if you need these sent elsewhere for cost reasons, please check goodrx as well to see if cost can be lowered that way. Discharge orders & Medications Prescriptions: New sumatriptan succinate 6 mg/0.5 mL pen injector 6 mg SUBCUT Q1-4H PRN (Reason: migraine) Qty: 1 2RF sumatriptan succinate 50 mg tablet 50 mg PO Q2-4H PRN (Reason: migraine headache) Qty: 9 0RF Rx Instructions: do not exceed 4 doses per 24 hrs hydromorphone [Dilaudid] 2 mg tablet 2 mg PO Q6H PRN (Reason: pain) 7 Days Qty: 10 0RF ondansetron HCl 4 mg tablet 4 mg PO Q8H PRN (Reason: nausea and vomiting) 30 Days Qty: 20 0RF Continued phentermine 37.5 mg tablet 37.5 mg PO QAM alprazolam 0.5 mg tablet 0.5 mg PO BID PRN (Reason: Anxiety) topiramate 50 mg tablet 50 mg PO BID Qty: 60 0RF Discontinued sumatriptan succinate 50 mg tablet 50 mg PO DAILY MDD 100mg PRN (Reason: Headache) Follow up/Referrals: Crow Burgos MD [Primary Care Provider] - Diet/Activity/Treatments Diet: Diet as Tolerated and Regular Activity: As tolerated, no restrictions. Visit Report/Discharge Packet Instructions: DI for Migraine, DI for Abdominal Pain-Adult, DI for Nausea -- Adult, DI for Prescription Opioid Use Stand Alone Forms: Patient Portal/API, Stroke Signs & Symptoms Discharge Data Primary Care Provider: Crow Burgos Attending Provider: Rivera Dacosta Admit Date/Time: 04/26/24 21:36 Quality VTE Deep Vein Thrombosis/Pulmonary Embolism Present on Admission: No
--- NOTE | 2024-04-28 11:15 | CM.DPNOTE ---
DCP Note ADMINISTRATIVE SALES ASSISTANT reviewed EMR. Per Hospitalist in morning rounds, anticipate dc today. ADMINISTRATIVE SALES ASSISTANT met with pt in room. Pt hopeful for medical excuse form. ADMINISTRATIVE SALES ASSISTANT completed form with provider signature and gave it to her in room. Pt denies other CM needs. P: dc home with family support later today. CM team will continue to follow as needed GIO Mercer
--- NOTE | 2024-04-28 12:44 | PC.NURSE ---
Discharge: Pt feels ready too d/c to home. made aware. He came and spoke with pt and gave her d/c instructions. Discharge instructions reviewed and understood, given by Aracelis SMITH. Rx has been esent. Pt d/c to home via auto with SO.
== END 2024-04-28 12:35 | disposition home or self-care (01) ==
LOC: ED 18:16 → AC 21:37
PROVIDERS: Emergency Medicine; Internal Medicine; Admitting Provider Internal Medicine; Emergency Provider Emergency Medicine; PCP Internal Medicine; Referring Provider Surgery; Visit Provider Internal Medicine
DX: R10.84 Generalized abdominal pain (principal); R11.2 Nausea with vomiting, unspecified; I10 Essential (primary) hypertension; K21.9 Gastro-esophageal reflux disease without esophagitis; K90.0 Celiac disease; E28.2 Polycystic ovarian syndrome; F31.9 Bipolar disorder, unspecified; Z98.84 Bariatric surgery status
CPT/HCPCS: 36415; 74177; 80053; 81003; 81015; 83605; 83690; 83735; 84100; 85025; 87040; 87086; 87507; 93005; 96361; 96365; 96372; 96375; 96376; 99284; G0378; J0696; J1170; J2405; J2765; J3030; Q9967

== ENCOUNTER 2024-05-08 17:02 | Emergency (ER) | payer OTHER, SELFPAY ==
[2024-04-26 22:36] VITALS: BMI 29.9
[2024-05-08] VITALS (12 sets, daily range): BP systolic 125–181; BP diastolic 67–99; PULSE 60–95; RESP 12–27; TEMP 36.3–37.2; O2SAT 93–99; BMI 29.7
--- NOTE | 2024-05-08 17:23 | EKG_ITS ---
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
[2024-05-08] MEDS: ONDANSETRON 4 MG/2 ML INJ IV (17:29)
[2024-05-08] MEDS: SODIUM CHLORIDE 0.9% 1,000 ML 1000 ML IV (17:30)
[2024-05-08 17:51] LABS: Add Manual Diff / Slide Review NO; Basophils Absolute Auto 100 /uL (0-100); Basophils Percent Auto 0.4 % (0-2); Eosinophils Absolute Auto 0 /uL (0-450); Eosinophils Percent Auto 0.2 % (2-4); Hematocrit 39.9 % (36-46); Hemoglobin 13.4 g/dL (12.0-16.0); Lymphocytes Absolute Auto 3000 /uL (1100-4500); Lymphocytes Percent Auto 26.1 % (25-40); Mean Corpuscular HGB Conc 33.6 % (30-36); Mean Corpuscular Hemoglobin 28.2 PG (26-34); Mean Corpuscular Volume 83.9 fL (80-100); Monocytes Absolute Auto 1400 /uL (0-900); Monocytes Percent Auto 12.5 % (3-14); Neutrophils Absolute Auto 7000 /uL (1500-7000); Neutrophils Percent Auto 60.8 % (50-75); Platelet Count 398 X10^3/uL (150-400); Red Blood Cell Count 4.75 X10^6/uL (4.0-5.2); Red Cell Distribution Width 14.3 % (11.6-14.8); White Blood Cell Count 11.5 X10^3/uL (4.5-11.0)
[2024-05-08 18:06] LABS: Alanine Aminotransferase 19 IU/L (<35); Albumin 4.9 g/dL (3.5-5.0); Albumin Globulin Ratio 1.5 (1.0-2.8); Alkaline Phosphatase 63 U/L (38-126); Aspartate Aminotransferase 22 IU/L (14-36); BUN Creatinine Ratio 19.1 (6-22); Bilirubin Total 2.4 mg/dL (0.2-1.3); Blood Urea Nitrogen 17 mg/dL (7-17); Calcium 9.8 mg/dL (8.4-10.2); Carbon Dioxide 18 mmol/L (22-32); Chloride 103 mmol/L (98-107); Estimated Glomerular Filt Rate > 60 mL/min (>60); Globulin 3.2 g/dL (1.7-4.1); Glucose 114 mg/dL (70-100); HEMOLYSIS < 15 (0-50); Lipase 112 U/L (23-300); Potassium 3.1 mmol/L (3.4-5.1); Sodium 136 mmol/L (137-145); Total Protein 8.1 g/dL (6.3-8.2)
--- NOTE | 2024-05-08 18:22 | ED.NAVMDI ---
HPI - Nausea/Vomiting/Diarrhea General Chief complaint: Nausea/Vomiting/Diarrhea Stated complaint: n/v x 24 hrs Time Seen by Provider: 05/08/24 17:58 Source: patient Mode of arrival: Ambulatory History of Present Illness HPI Narrative: Patient is a 43-year-old female. Has had her gallbladder removed, appendix removed, over removed and hysterectomy. Over the past several weeks she was diagnosed with abdominal migraines. For the past 2 days she has had symptoms consistent with her abdominal migraines to include abdominal pain and vomiting. She has been admitted to the hospital in the past for the symptoms. She was tried all of her home medications without any improvement. No fevers. Related Data Home Medications Medication Instructions Recorded Confirmed alprazolam 0.5 mg tablet 0.5 mg PO BID PRN Anxiety 05/06/23 04/26/24 phentermine 37.5 mg tablet 37.5 mg PO QAM 04/26/24 04/26/24 Previous Rx's Medication Instructions Recorded topiramate 50 mg tablet 50 mg PO BID #60 tabs 04/02/24 ondansetron HCl 4 mg tablet 4 mg PO Q8H PRN nausea and 04/28/24 vomiting 30 days #20 tabs sumatriptan succinate 50 mg tablet 50 mg PO Q2-4H PRN migraine 04/28/24 headache #9 tabs sumatriptan succinate 6 mg/0.5 mL 6 mg (0.5 mL) SUBCUT Q1-4H PRN 04/28/24 subcutaneous pen injector migraine #1 mL metoclopramide HCl 10 mg tablet 10 mg PO Q6H PRN nausea and 05/08/24 (Reglan) vomiting #20 tabs Allergies Allergy/AdvReac Type Severity Reaction Status Date / Time gluten Allergy Celiac Verified 03/13/24 19:07 coconut AdvReac Intermediate Hives Verified 03/13/24 19:07 NSAIDS (Non-Steroidal AdvReac Mild Gastrointestinal Verified 03/13/24 19:07 Anti-Inflamma Upset benzonatate AdvReac Unknown Hives Verified 03/13/24 19:07 [From Tessalon Perles] escitalopram [From Lexapro] AdvReac Unknown Hallucinati Verified 03/13/24 19:07 ng Review of Systems Review of Systems ROS Unobtainable: All systems reviewed & are unremarkable except as noted in HPI and below Patient History Medical History Left corneal abrasion Headache Polycystic ovary disease Celiac disease GERD with apnea Hypertension Bipolar disorder Surgical History Status post tubal ligation History of section H/O abdominoplasty H/O oophorectomy H/O gastric sleeve History of cholecystectomy History of appendectomy Social History marital status: household members: significant other and children lives independently: Yes occupational status: employed Smoking Status: Never smoker alcohol intake: current substance use type: marijuana Smoking Status: Never smoker alcohol intake frequency: holidays/special occasions only Substance Use Type: marijuana Exam Initial Vital Signs Initial Vital Signs: Vital Signs Temperature 99 F 05/08/24 17:11 Pulse Rate 95 H 05/08/24 17:11 Respiratory Rate 20 05/08/24 17:11 Blood Pressure 125/96 H 05/08/24 17:11 Pulse Oximetry 97 05/08/24 17:11 Oxygen Delivery Method Room Air 05/08/24 17:11 Const General: cooperative and No ill appearing HENMT Head: normal to inspection and normocephalic Resp Effort & Inspection: normal respiratory effort Cardio Rate: regular rate GI Inspection: non-distended Neuro General: patient alert and moves all extremities Extrem General: capillary refill normal Course Orders Ordered: Discontinued Medications Hydromorphone HCl (Hydromorphone 1 Mg Inj) 1 mg IV NOW ONE Stop: 05/08/24 18:23 Last Admin: 05/08/24 18:29 Dose: 1 mg Documented By: ISAURO Hydromorphone HCl (Hydromorphone 0.5 Mg Inj) 0.5 mg IV NOW ONE Stop: 05/08/24 20:33 Last Admin: 05/08/24 20:44 Dose: 0.5 mg Documented By: JAN Sodium Chloride (Normal Saline 0.9%) 1,000 mls @ 1,000 mls/hr IV BOLUS ONE Stop: 05/08/24 18:23 Last Infusion: 05/08/24 18:59 Dose: Infused Documented By: Admin: 05/08/24 17:30 Dose: 1,000 mls/hr Documented By: LUIS Lorazepam (Lorazepam 2 Mg/Ml Inj) 0.5 mg IV NOW ONE Stop: 05/08/24 20:33 Last Admin: 05/08/24 20:44 Dose: 0.5 mg Documented By: JAN Metoclopramide HCl (Metoclopramide 10 Mg/2 Ml Inj) 10 mg IV NOW ONE Stop: 05/08/24 18:23 Last Admin: 05/08/24 18:29 Dose: 10 mg Documented By: ISAURO Ondansetron HCl (Ondansetron 4 Mg/2 Ml Inj) 4 mg IV NOW PRN PRN Reason: Nausea And Vomiting Last Admin: 05/08/24 17:29 Dose: 4 mg Documented By: LUIS Ondansetron HCl (Ondansetron 4 Mg Odt) 4 mg PO NOW PRN PRN Reason: Nausea And Vomiting Vital Signs Vital signs: Vital Signs - 8 hr 05/08/24 19:30 05/08/24 19:30 05/08/24 20:00 Temperature Pulse Rate 65 Respiratory Rate 16 Blood Pressure 137/79 136/78 Pulse Oximetry 99 05/08/24 20:00 05/08/24 20:30 05/08/24 20:31 Temperature Pulse Rate 87 91 H Respiratory Rate 20 27 H Blood Pressure 181/99 H Pulse Oximetry 97 96 05/08/24 20:31 05/08/24 21:00 05/08/24 21:01 Temperature Pulse Rate 87 66 Respiratory Rate 27 H 16 Blood Pressure 130/71 Pulse Oximetry 96 93 05/08/24 21:01 05/08/24 21:30 05/08/24 21:30 Temperature Pulse Rate 66 84 Respiratory Rate 15 12 Blood Pressure 140/67 Pulse Oximetry 94 97 05/08/24 22:00 05/08/24 22:00 Temperature 97.4 F L Pulse Rate 79 Respiratory Rate 19 Blood Pressure 136/84 Pulse Oximetry 98 MDM - Nausea/Vomiting/Diarrhea Medical Records Attestation: I reviewed the patient's medical records. Lab Data Attestation: I reviewed the patient's lab results. 05/08/24 17:30 05/08/24 17:30 Labs: Lab Results 05/08/24 Range/Units 17:30 WBC 11.5 H (4.5-11.0) X10^3/uL RBC 4.75 (4.0-5.2) X10^6/uL Hgb 13.4 (12.0-16.0) g/dL Hct 39.9 (36-46) % MCV 83.9 (80-100) fL MCH 28.2 (26-34) PG MCHC 33.6 (30-36) % RDW 14.3 (11.6-14.8) % Plt Count 398 (150-400) X10^3/uL Neut % (Auto) 60.8 (50-75) % Lymph % (Auto) 26.1 (25-40) % Frontier % (Auto) 12.5 (3-14) % Eos % (Auto) 0.2 L (2-4) % Baso % (Auto) 0.4 (0-2) % Neut # (Auto) 7000 (8326-7701) /uL Lymph # (Auto) 3000 (8212-4277) /uL [place] # (Auto) 1400 H (0-900) /uL Eos # (Auto) 0 (0-450) /uL Baso # (Auto) 100 (0-100) /uL Sodium 136 L (137-145) mmol/L Potassium 3.1 L (3.4-5.1) mmol/L Chloride 103 (98-107) mmol/L Carbon Dioxide 18 L (22-32) mmol/L BUN 17 (7-17) mg/dL Creatinine 0.89 (0.52-1.04) mg/dL Estimated GFR > 60 (>60) mL/min BUN/Creatinine Ratio 19.1 (6-22) Glucose 114 H (70-100) mg/dL Calcium 9.8 (8.4-10.2) mg/dL Total Bilirubin 2.4 H (0.2-1.3) mg/dL AST 22 (14-36) IU/L ALT 19 (<35) IU/L Alkaline Phosphatase 63 (38-126) U/L Total Protein 8.1 (6.3-8.2) g/dL Albumin 4.9 (3.5-5.0) g/dL Globulin 3.2 (1.7-4.1) g/dL Albumin/Globulin Ratio 1.5 (1.0-2.8) Lipase 112 (23-300) U/L ECG Data Attestation: I personally reviewed and interpreted this ECG as follows: Interpretation: Sinus rhythm Ventricular rate of 89 Normal axis Artifact noted in lateral leads, no ST T wave changes MDM Narrative Medical decision making narrative: After multiple rounds of medications patient's symptoms have greatly improved. She was tolerating oral intake. Her symptoms today per her report are just like her prior symptoms for which she has been diagnosed as ?abdominal migraines? labs are unremarkable. Electrolytes unremarkable. I do feel that we can hold on radiologic studies given her presentation today and her prior workups. Discharge home with a prescription for Reglan she states that this does seem to have helped her in the past. Will have the patient contact your primary provider for follow-up. She was given return precautions. Discharge Plan Departure Patient Disposition: Home Clinical Impression: Abdominal pain, Nausea and vomiting Instructions: DI for Abdominal Pain-Adult, Nausea and Vomiting-Adult Activity Restrictions/Additional Instructions: recommend that you continue to take all of your medications as directed. Contact your primary doctor for a follow-up. Return to the emergency department for new or worsening symptoms. Prescriptions: New metoclopramide HCl [Reglan] 10 mg tablet 10 mg PO Q6H PRN (Reason: nausea and vomiting) Qty: 20 0RF No Action phentermine 37.5 mg tablet 37.5 mg PO QAM sumatriptan succinate 6 mg/0.5 mL pen injector 6 mg SUBCUT Q1-4H PRN (Reason: migraine) Qty: 1 2RF sumatriptan succinate 50 mg tablet 50 mg PO Q2-4H PRN (Reason: migraine headache) Qty: 9 0RF Rx Instructions: do not exceed 4 doses per 24 hrs ondansetron HCl 4 mg tablet 4 mg PO Q8H PRN (Reason: nausea and vomiting) 30 Days Qty: 20 0RF alprazolam 0.5 mg tablet 0.5 mg PO BID PRN (Reason: Anxiety) topiramate 50 mg tablet 50 mg PO BID Qty: 60 0RF Referrals: Crow Burgos MD [Primary Care Provider] - Stand Alone Forms: Patient Portal/API
[2024-05-08] MEDS: HYDROMORPHONE 1 MG INJ IV (18:29)
[2024-05-08] MEDS: METOCLOPRAMIDE 10 MG/2 ML INJ IV (18:29)
[2024-05-08] MEDS: LORazepam 2 MG/ML INJ 0.5 MG IV (20:44)
[2024-05-08] MEDS: HYDROMORPHONE 0.5 MG INJ IV (20:44)
== END 2024-05-08 22:16 | disposition home or self-care (01) ==
PROVIDERS: Student in an Organized Health Care Education/Training Program; Emergency Provider Emergency Medicine; PCP Internal Medicine
DX: R10.9 Unspecified abdominal pain (principal); R11.2 Nausea with vomiting, unspecified
CPT/HCPCS: 36415; 80053; 83690; 85025; 93005; 96361; 96374; 96375; 96376; 99284; J1170; J2060; J2405; J2765

== ENCOUNTER 2024-05-09 17:21 | Observation (INO) | payer OTHER, SELFPAY ==
[2024-04-26 22:36] VITALS: BMI 29.9
[2024-05-09 17:31] VITALS: PULSE 96; RESP 20; TEMP 36.3; O2SAT 99; BMI 29.0
[2024-05-09 18:07] LABS: Add Manual Diff / Slide Review NO; Basophils Absolute Auto 100 /uL (0-100); Basophils Percent Auto 0.7 % (0-2); Eosinophils Absolute Auto 0 /uL (0-450); Eosinophils Percent Auto 0.3 % (2-4); Hematocrit 39.6 % (36-46); Hemoglobin 13.4 g/dL (12.0-16.0); Lymphocytes Absolute Auto 2500 /uL (1100-4500); Lymphocytes Percent Auto 20.7 % (25-40); Mean Corpuscular HGB Conc 33.8 % (30-36); Mean Corpuscular Hemoglobin 28.4 PG (26-34); Monocytes Absolute Auto 1000 /uL (0-900); Neutrophils Absolute Auto 8500 /uL (1500-7000); Neutrophils Percent Auto 70.3 % (50-75); Platelet Count 357 X10^3/uL (150-400); Red Blood Cell Count 4.71 X10^6/uL (4.0-5.2); Red Cell Distribution Width 14.5 % (11.6-14.8); White Blood Cell Count 12.1 X10^3/uL (4.5-11.0)
[2024-05-09] MEDS: SODIUM CHLORIDE 0.9% 1,000 ML 1000 ML IV (18:11)
[2024-05-09 18:14] LABS: Alanine Aminotransferase 23 IU/L (<35); Albumin 4.7 g/dL (3.5-5.0); Albumin Globulin Ratio 1.4 (1.0-2.8); Alkaline Phosphatase 57 U/L (38-126); Aspartate Aminotransferase 23 IU/L (14-36); Bilirubin Total 2.6 mg/dL (0.2-1.3); Blood Urea Nitrogen 13 mg/dL (7-17); Calcium 9.6 mg/dL (8.4-10.2); Carbon Dioxide 19 mmol/L (22-32); Chloride 103 mmol/L (98-107); Estimated Glomerular Filt Rate > 60 mL/min (>60); Globulin 3.3 g/dL (1.7-4.1); Glucose 119 mg/dL (70-100); HEMOLYSIS < 15 (0-50); Lipase 223 U/L (23-300); Sodium 136 mmol/L (137-145)
[2024-05-09] MEDS: ONDANSETRON 4 MG/2 ML INJ IV (18:15)
--- NOTE | 2024-05-09 18:30 | EKG_ITS ---
[place] [address] [address] [place] [id number] Test Date: 2024-05-09 Pat Name: Janet Escobar Department: [facility] Room: Gender: Female Cell Technician: PALLAVI : 1980 Requested By: Order Number: [id number] Reading MD: Ramy Dalal MD Measurements Intervals [place] Rate: 81 P: 56 VT: 150 QRS: 83 QRSD: 76 T: 52 QT: 382 QTc: 443 Interpretive Statements Normal sinus rhythm with sinus arrhythmia Electronically Signed On 05-10-2024 8:58:54 PDT by Ramy Dalal MD
[2024-05-09] MEDS: DROPERIDOL 5 MG/2 ML VIAL IV (18:54)
--- NOTE | 2024-05-09 19:09 | ED_ITS ---
HPI - Abdominal Pain General Chief Complaint: Abdominal Pain Stated Complaint: n/v/ abd pain Time Seen by Provider: 05/09/24 18:05 History of Present Illness HPI narrative: 43-year-old female with reported history of abdominal migraines, gastric bypass in 2017, bipolar disorder presents with nausea, vomiting, generalized abdominal pain. Patient was seen yesterday in this emergency department for same. She states that at that time her symptoms improved and she requested discharge home, however almost as soon as she went home her symptoms started up again. She has tried Zofran and Reglan at home without improvement. Multiple ED visits this year for exact same complaint. Patient admitted several times for intractable vomiting and abdominal pain. States that she has seen GI in the past without definitive diagnosis. Related Data Home Medications Medication Instructions Recorded Confirmed alprazolam 0.5 mg tablet 0.5 mg PO BID PRN Anxiety 05/06/23 05/10/24 ondansetron HCl 4 mg tablet 4 mg PO Q8H PRN nausea/vomiting 05/10/24 05/10/24 phentermine 37.5 mg tablet 37.5 mg PO QAM 05/10/24 05/10/24 sumatriptan succinate 50 mg tablet 50 mg PO Q2-4H PRN migraine 05/10/24 05/10/24 Previous Rx's Medication Instructions Recorded topiramate 50 mg tablet 50 mg PO BID #60 tabs 04/02/24 sumatriptan succinate 50 mg tablet 50 mg PO Q2-4H PRN migraine 04/28/24 headache #9 tabs Allergies Allergy/AdvReac Type Severity Reaction Status Date / Time gluten Allergy Celiac Verified 03/13/24 19:07 coconut AdvReac Intermediate Hives Verified 03/13/24 19:07 NSAIDS (Non-Steroidal AdvReac Mild Gastrointestinal Verified 03/13/24 19:07 Anti-Inflamma Upset benzonatate AdvReac Unknown Hives Verified 03/13/24 19:07 [From Tessalon Perles] escitalopram [From Lexapro] AdvReac Unknown Hallucinati Verified 03/13/24 19:07 ng Patient History Medical History Left corneal abrasion Headache Polycystic ovary disease Celiac disease GERD with apnea Hypertension Bipolar disorder Surgical History Status post tubal ligation History of section H/O abdominoplasty H/O oophorectomy H/O gastric sleeve History of cholecystectomy History of appendectomy Social History marital status: household members: significant other and children lives independently: Yes occupational status: employed Smoking Status: Never smoker alcohol intake: current substance use type: marijuana Smoking Status: Never smoker alcohol intake frequency: holidays/special occasions only Substance Use Type: marijuana Exam Initial Vital Signs Initial Vital Signs: Vital Signs Temperature 97.4 F L 05/09/24 17:31 Pulse Rate 96 H 05/09/24 17:31 Respiratory Rate 20 05/09/24 17:31 Pulse Oximetry 99 05/09/24 17:31 Oxygen Delivery Method Room Air 05/09/24 17:31 Const: Awake, alert, ill-appearing, nontoxic Cardiac: regular rate, regular rhythm RESP: unlabored, clear bilaterally, no wheezing GI: Soft, generalized tenderness to palpation without rebound or guarding Skin: Warm, Dry, intact, no rashes Neuro: AO x3, CN II-XII grossly intact, moves all extremities Course Orders Ordered: Acetaminophen (Acetaminophen 325 Mg Tablet) 650 mg PO Q6H PRN PRN Reason: Fever/Mild Pain (1-3) Enoxaparin Sodium (Enoxaparin 40 Mg/0.4 Ml Syringe) 40 mg SUBCUT DAILY BENITO Hydromorphone HCl (Hydromorphone 0.5 Mg Inj) 0.5 mg IV Q2H PRN PRN Reason: Pain, Severe (7-10) Last Admin: 05/10/24 04:19 Dose: 0.5 mg Documented By: Admin: 05/10/24 02:31 Dose: 0.5 mg Documented By: Admin: 05/10/24 00:42 Dose: 0.5 mg Documented By: Lactated Ringer's (Lactated Ringers) 1,000 mls @ 100 mls/hr IV CONT BENITO Last Admin: 05/10/24 00:41 Dose: 100 mls/hr Documented By: Naloxone HCl (Naloxone 0.4 Mg/Ml Vial) 0.2 mg IV Q2MIN PRN PRN Reason: Opiate Reversal Ondansetron HCl (Ondansetron 4 Mg/2 Ml Inj) 4 mg IV NOW PRN PRN Reason: Nausea And Vomiting Last Admin: 05/10/24 00:48 Dose: 4 mg Documented By: Admin: 05/09/24 18:15 Dose: 4 mg Documented By: HASMUKH Ondansetron HCl (Ondansetron 4 Mg Odt) 4 mg PO NOW PRN PRN Reason: Nausea And Vomiting Ondansetron HCl (Ondansetron 4 Mg/2 Ml Inj) 4 mg IV Q8HR PRN PRN Reason: Nausea And Vomiting Discontinued Medications Diphenhydramine HCl (Diphenhydramine 50 Mg/Ml Vial) 50 mg IV NOW ONE Stop: 05/09/24 19:11 Last Admin: 05/09/24 19:20 Dose: 50 mg Documented By: HASMUKH Droperidol (Droperidol 5 Mg/2 Ml Vial) 5 mg IV NOW ONE Stop: 05/09/24 18:31 Last Admin: 05/09/24 18:54 Dose: 5 mg Documented By: MAN Sodium Chloride (Normal Saline 0.9%) 1,000 mls @ 1,000 mls/hr IV BOLUS ONE Stop: 05/09/24 19:05 Last Infusion: 05/09/24 19:15 Dose: Infused Documented By: Admin: 05/09/24 18:11 Dose: 1,000 mls/hr Documented By: HASMUKH POTASSIUM CHLORIDE IN WATER (Potassium Cl 10 Meq/100 Ml Lindsay) 10 meq in 100 mls @ 100 mls/hr IV Q1H BENITO Stop: 05/09/24 23:44 Last Infusion: 05/09/24 22:52 Dose: 0 mls/hr Documented By: Admin: 05/09/24 22:49 Dose: 100 mls/hr Documented By: Infusion: 05/09/24 22:49 Dose: Infused Documented By: Admin: 05/09/24 21:56 Dose: 100 mls/hr Documented By: Infusion: 05/09/24 21:56 Dose: Infused Documented By: Admin: 05/09/24 20:57 Dose: 100 mls/hr Documented By: Infusion: 05/09/24 20:57 Dose: Infused Documented By: Admin: 05/09/24 20:08 Dose: 100 mls/hr Documented By: JAN Prochlorperazine (Prochlorperazine 10 Mg/2 Ml Vial) 10 mg IV NOW ONE Stop: 05/09/24 19:36 Last Admin: 05/09/24 19:47 Dose: 10 mg Documented By: JAN Vital Signs Vital signs: Vital Signs - 8 hr 05/09/24 17:31 Temperature 97.4 F L Pulse Rate 96 H Respiratory Rate 20 Pulse Oximetry 99 Oxygen Delivery Method Room Air MDM - Abdominal Pain Differential Diagnosis Differential diagnosis: Likely abdominal pain, gastroenteritis and pancreatitis Lab Data 05/09/24 17:55 05/09/24 17:55 Labs: Lab Results 05/09/24 Range/Units 17:55 WBC 12.1 H (4.5-11.0) X10^3/uL RBC 4.71 (4.0-5.2) X10^6/uL Hgb 13.4 (12.0-16.0) g/dL Hct 39.6 (36-46) % MCV 84.0 (80-100) fL MCH 28.4 (26-34) PG MCHC 33.8 (30-36) % RDW 14.5 (11.6-14.8) % Plt Count 357 (150-400) X10^3/uL Neut % (Auto) 70.3 (50-75) % Lymph % (Auto) 20.7 L (25-40) % Frontier % (Auto) 8.0 (3-14) % Eos % (Auto) 0.3 L (2-4) % Baso % (Auto) 0.7 (0-2) % Neut # (Auto) 8500 H (4410-9291) /uL Lymph # (Auto) 2500 (9828-8547) /uL Frontier # (Auto) 1000 H (0-900) /uL Eos # (Auto) 0 (0-450) /uL Baso # (Auto) 100 (0-100) /uL Sodium 136 L (137-145) mmol/L Potassium 3.0 L (3.4-5.1) mmol/L Chloride 103 (98-107) mmol/L Carbon Dioxide 19 L (22-32) mmol/L BUN 13 (7-17) mg/dL Creatinine 0.65 (0.52-1.04) mg/dL Estimated GFR > 60 (>60) mL/min BUN/Creatinine Ratio 20.0 (6-22) Glucose 119 H (70-100) mg/dL Calcium 9.6 (8.4-10.2) mg/dL Magnesium 1.9 (1.6-2.3) mg/dL Total Bilirubin 2.6 H (0.2-1.3) mg/dL AST 23 (14-36) IU/L ALT 23 (<35) IU/L Alkaline Phosphatase 57 (38-126) U/L Total Protein 8.0 (6.3-8.2) g/dL Albumin 4.7 (3.5-5.0) g/dL Globulin 3.3 (1.7-4.1) g/dL Albumin/Globulin Ratio 1.4 (1.0-2.8) Lipase 223 D (23-300) U/L MDM Narrative Medical decision making narrative: Nausea, vomiting, generalized abdominal pain similar to previous episodes. Abdomen soft, no peritoneal signs, patient holding a hot water bottle to her abdomen for comfort. Patient has had multiple previous abdominal CTs in the past, most recent CT from 04/26/24. Since patient was complaining of same pain as previous with nonfocal abdominal exam plan to defer imaging at this time. Laboratory work, antiemetics ordered. Laboratory work reviewed, WBC count 12.1, hemoglobin 13.4, platelets 357, sodium 136, potassium 3.0 (yesterday 3.1), creatinine 0.65, T bili 2.6, otherwise normal liver enzymes. Previous history of cholecystectomy. IV potassium ordered for repletion since patient unable to tolerate pills currently. Despite receiving numerous doses of IV antiemetics patient continues to feel very nauseous and retches even with p.o. fluid trials. Plan to admit patient for intractable nausea and vomiting. Discharge Plan Departure Patient Disposition: Admitted as Observation Clinical Impression: Intractable vomiting with nausea, Hypokalemia Admit Date/Time: 05/09/24 21:22 Admit Provider: Bob Mckeon
[2024-05-09] MEDS: diphenhydrAMINE 50 MG/ML VIAL IV (19:20)
[2024-05-09] MEDS: PROCHLORPERAZINE 10 MG/2 ML VIAL IV (19:47)
[2024-05-09 19:52] LABS: Magnesium 1.9 mg/dL (1.6-2.3)
[2024-05-09] MEDS: POTASSIUM CHLORIDE IN WATER 10 MEQ/100 ML PIGGYBACK 100 MEQ IV ×4 (20:08→22:49)
--- NOTE | 2024-05-09 21:00 | PC.NURSE ---
pt states she was unable to tolerate juice
[2024-05-09 22:53] VITALS: BP 197/93; PULSE 86; RESP 18; O2SAT 99
[2024-05-09 23:00] VITALS: BP 193/91; PULSE 68; RESP 17; TEMP 37.7; O2SAT 100
[2024-05-09 23:10] VITALS: BMI 29.0
[2024-05-10] VITALS: BP 193/90; PULSE 68; RESP 17; TEMP 37.9; O2SAT 100
[2024-05-10] MEDS: LACTATED RINGERS 1,000 ML 100 ML IV (00:41)
[2024-05-10] MEDS: HYDROMORPHONE 0.5 MG INJ IV ×5 (00:42→10:03)
[2024-05-10] MEDS: ONDANSETRON 4 MG/2 ML INJ IV (00:48)
[2024-05-10 02:15] LABS: MRSA (Nasal) PCR NOT DETECTED (Not Detect)
[2024-05-10 04:00] VITALS: BP 108/58; PULSE 65; RESP 16; TEMP 37.1; O2SAT 97
[2024-05-10 05:33] LABS: Add Manual Diff / Slide Review NO; Basophils Absolute Auto 0 /uL (0-100); Basophils Percent Auto 0.4 % (0-2); Eosinophils Absolute Auto 0 /uL (0-450); Eosinophils Percent Auto 0.2 % (2-4); Hematocrit 33.1 % (36-46); Hemoglobin 11.3 g/dL (12.0-16.0); Lymphocytes Absolute Auto 3600 /uL (1100-4500); Mean Corpuscular Hemoglobin 28.4 PG (26-34); Mean Corpuscular Volume 83.6 fL (80-100); Monocytes Absolute Auto 1100 /uL (0-900); Monocytes Percent Auto 10.7 % (3-14); Neutrophils Absolute Auto 5500 /uL (1500-7000); Neutrophils Percent Auto 53.7 % (50-75); Platelet Count 304 X10^3/uL (150-400); Red Blood Cell Count 3.96 X10^6/uL (4.0-5.2); Red Cell Distribution Width 14.5 % (11.6-14.8); White Blood Cell Count 10.2 X10^3/uL (4.5-11.0)
[2024-05-10 05:51] LABS: BUN Creatinine Ratio 11.4 (6-22); Blood Urea Nitrogen 5 mg/dL (7-17); Calcium 8.2 mg/dL (8.4-10.2); Carbon Dioxide 22 mmol/L (22-32); Chloride 106 mmol/L (98-107); Estimated Glomerular Filt Rate > 60 mL/min (>60); Glucose 94 mg/dL (70-100); HEMOLYSIS < 15 (0-50); Potassium 3.2 mmol/L (3.4-5.1); Sodium 134 mmol/L (137-145)
--- NOTE | 2024-05-10 06:23 | PM.HP.1 ---
History of Present Illness History of Present Illness Date Patient Seen: 05/10/24 Chief complaint: n/v/ abd pain Narrative: 43 y/o with PMH of obesity, gastric bypass surgery, abdominal migraine, GERD and prior episodic N/V, presented with abdominal pain, diarrhea, nausea, vomitng, in the absence of GI infection. Unable to hold anything PO. Hypokalemic. Started on K replacement, IVFs, antiemetics and placed in observation. [facility] Medical History Left corneal abrasion Headache Polycystic ovary disease Celiac disease GERD with apnea Hypertension Bipolar disorder Surgical History Status post tubal ligation History of section H/O abdominoplasty H/O oophorectomy H/O gastric sleeve History of cholecystectomy History of appendectomy Social History marital status: household members: significant other and children lives independently: Yes occupational status: employed Smoking Status: Never smoker alcohol intake: current substance use type: marijuana Meds Home Medications and Allergies Home Medications Medication Instructions Recorded Confirmed Type alprazolam 0.5 mg tablet 0.5 mg PO BID PRN Anxiety 05/06/23 05/10/24 History topiramate 50 mg tablet 50 mg PO BID #60 tabs 04/02/24 05/10/24 Rx sumatriptan succinate 50 mg tablet 50 mg PO Q2-4H PRN migraine 04/28/24 05/10/24 Rx headache #9 tabs ondansetron HCl 4 mg tablet 4 mg PO Q8H PRN nausea/vomiting 05/10/24 05/10/24 History phentermine 37.5 mg tablet 37.5 mg PO QAM 05/10/24 05/10/24 History sumatriptan succinate 50 mg tablet 50 mg PO Q2-4H PRN migraine 05/10/24 05/10/24 History Allergies Allergy/AdvReac Type Severity Reaction Status Date / Time gluten Allergy Celiac Verified 03/13/24 19:07 coconut AdvReac Intermediate Hives Verified 03/13/24 19:07 NSAIDS (Non-Steroidal AdvReac Mild Gastrointestinal Verified 03/13/24 19:07 Anti-Inflamma Upset benzonatate AdvReac Unknown Hives Verified 03/13/24 19:07 [From Teslorena Dhaliwal] escitalopram [From Lexapro] AdvReac Unknown Hallucinati Verified 03/13/24 19:07 ng Review of Systems Constitutional Comments: w/o fever, weight changes, chills Cardiovascular Comments: w/o palpitations orchest pain Respiratory Comments: w/o shortness of breath Gastrointestinal Comments: see hpi - abdominal pain, nausea, vomiting, loose stool Musculoskeletal Comments: w/o myalgia Exam Vital Signs (past 8 hours): - 05/09/24 22:53 05/09/24 23:00 05/10/24 00:00 Temperature 99.8 F H 100.2 F H Pulse Rate 86 68 68 Respiratory Rate 18 17 17 Blood Pressure 197/93 H 193/91 H 193/90 H Pulse Oximetry 99 100 100 Oxygen Delivery Method Room Air Oxygen Flow Rate 0 0 05/10/24 04:00 Temperature 98.8 F Pulse Rate 65 Respiratory Rate 16 Blood Pressure 108/58 L Pulse Oximetry 97 Oxygen Delivery Method Oxygen Flow Rate 0 Oxygen Delivery Method Room Air Oxygen Flow Rate 0 Const Other: in no distress, Dinh at bedside HENMT Other: normocephalic Neck Other: supple Resp Other: normal respiratory effort Cardio Other: RRR GI Other: soft, obese, abdomen, w/o peritoneal signs Neuro Other: w/o focal deficits Extrem Other: w/o swelling Psych Other: depressed mood and affect Objective Labs 05/10/24 04:20 05/10/24 04:20 Labs: Laboratory Results - last 24 hr 05/09/24 05/09/24 05/10/24 17:55 23:05 04:20 WBC 12.1 H 10.2 RBC 4.71 3.96 L Hgb 13.4 11.3 L Hct 39.6 33.1 L MCV 84.0 83.6 MCH 28.4 28.4 MCHC 33.8 34.0 RDW 14.5 14.5 Plt Count 357 304 Neut % (Auto) 70.3 53.7 Lymph % (Auto) 20.7 L 35.0 [place] % (Auto) 8.0 10.7 Eos % (Auto) 0.3 L 0.2 L Baso % (Auto) 0.7 0.4 Neut # (Auto) 8500 H 5500 Lymph # (Auto) 2500 3600 [place] # (Auto) 1000 H 1100 H Eos # (Auto) 0 0 Baso # (Auto) 100 0 Sodium 136 L 134 L Potassium 3.0 L 3.2 L Chloride 103 106 Carbon Dioxide 19 L 22 BUN 13 5 L Creatinine 0.65 0.44 L Estimated GFR > 60 > 60 BUN/Creatinine Ratio 20.0 11.4 Glucose 119 H 94 Calcium 9.6 8.2 L Magnesium 1.9 Total Bilirubin 2.6 H AST 23 ALT 23 Alkaline Phosphatase 57 Total Protein 8.0 Albumin 4.7 Globulin 3.3 Albumin/Globulin Ratio 1.4 Lipase 223 D Nasal Screen MRSA (PCR) Not detected Assessment & Plan Assessment and plan (1) Intractable vomiting with nausea: Status: Acute (2) Hypokalemia: Status: Acute (3) Bipolar disorder: Status: Acute (4) Hypertension: Qualifiers: Hypertension type: unspecified Qualified Code(s): I10 - Essential (primary) hypertension Status: Acute (5) GERD with apnea: Status: Acute Assessment & Plan narrative: Intractable Nausea and Vomiting / Abdominal Migraine - pain management, IVFs, antiemetics Bipolar Disorder - Topamax, Xanax GERD - PPI Hypokalemia - borderline - supplemented DVT prophylaxis - Lovenox Time-Based Coding :: [TOTAL MINUTES] spent with patient and on the chart (including review of chart, obtaining history, exam, reviewing outside data, placing orders, documenting exam and treatment plan, and counseling patient) on [DATE]. Quality VTE Deep Vein Thrombosis/Pulmonary Embolism Present on Admission: No
[2024-05-10] MEDS: POTASSIUM CHLORIDE IN WATER 10 MEQ/100 ML PIGGYBACK 100 MEQ IV ×4 (06:54→10:44)
[2024-05-10 08:00] VITALS: BP 138/85; PULSE 88; RESP 16; TEMP 36.8; O2SAT 99
[2024-05-10] MEDS: TOPIRAMATE 25 MG TABLET 50 MG PO (08:33)
[2024-05-10] MEDS: ENOXAPARIN 40 MG/0.4 ML SYRINGE SUBCUT (08:34)
--- NOTE | 2024-05-10 09:13 | P.DS_ITS ---
History of Present Illness History of Present Illness Date Patient Seen: 05/10/24 Time Patient Seen: 09:13 Chief complaint: n/v/ abd pain Narrative: Per admitting provider, 43 y/o with PMH of obesity, gastric bypass surgery, abdominal migraine, GERD and prior episodic N/V, presented with abdominal pain, diarrhea, nausea, vomitng, in the absence of GI infection. Unable to hold anything PO. Hypokalemic. Started on K replacement, IVFs, antiemetics and placed in observation. Discharge Providers Provider Date of admission: 05/09/24 21:22 Discharge Date: 05/10/24 Primary care physician: Crow Burgos MD Discharge provider: Wiliam Gutierrez DO Summary Hospital Course Discharge Diagnosis: 1. Intractable episodic nausea and vomiting, present on admission and active. Possible abdominal migraine. 2. Hypokalemia Chronic conditions - Bipolar disorder, present on admission and active. - Gastroesophageal reflux disease, present on admission and active. - Celiac disease, present on admission and active. - Polycystic ovarian disease, present on admission and active. - Hypertension, present on admission and active. Hospital Course: This is a 43 year old female admitted with recurrent abdominal pain, nausea, vomiting. She has a history of abdominal migraines. She improved with fluids, as well as some antiemetics. The following morning, she felt much improved and tolerated her breakfast with no ongoing symptoms. She was discharged home, she needed no new medications on discharge. Time Spent with Patient Time spent: Less than 30 minutes Exam Vital Signs (past 8 hours): - 05/10/24 04:00 Temperature 98.8 F Pulse Rate 65 Respiratory Rate 16 Blood Pressure 108/58 L Pulse Oximetry 97 Oxygen Flow Rate 0 Oxygen Delivery Method Room Air Oxygen Flow Rate 0 Narrative Exam Narrative: Gen: no acute distress, well appearing Ext: No edema Pulm: no respiratory distress Objective Labs 05/10/24 04:20 05/10/24 04:20 Labs: Laboratory Results - last 24 hr 05/09/24 05/09/24 05/10/24 17:55 23:05 04:20 WBC 12.1 H 10.2 RBC 4.71 3.96 L Hgb 13.4 11.3 L Hct 39.6 33.1 L MCV 84.0 83.6 MCH 28.4 28.4 MCHC 33.8 34.0 RDW 14.5 14.5 Plt Count 357 304 Neut % (Auto) 70.3 53.7 Lymph % (Auto) 20.7 L 35.0 [place] % (Auto) 8.0 10.7 Eos % (Auto) 0.3 L 0.2 L Baso % (Auto) 0.7 0.4 Neut # (Auto) 8500 H 5500 Lymph # (Auto) 2500 3600 [place] # (Auto) 1000 H 1100 H Eos # (Auto) 0 0 Baso # (Auto) 100 0 Sodium 136 L 134 L Potassium 3.0 L 3.2 L Chloride 103 106 Carbon Dioxide 19 L 22 BUN 13 5 L Creatinine 0.65 0.44 L Estimated GFR > 60 > 60 BUN/Creatinine Ratio 20.0 11.4 Glucose 119 H 94 Calcium 9.6 8.2 L Magnesium 1.9 Total Bilirubin 2.6 H AST 23 ALT 23 Alkaline Phosphatase 57 Total Protein 8.0 Albumin 4.7 Globulin 3.3 Albumin/Globulin Ratio 1.4 Lipase 223 D Nasal Screen MRSA (PCR) Not detected [facility] Medical History Left corneal abrasion Headache Polycystic ovary disease Celiac disease GERD with apnea Hypertension Bipolar disorder Surgical History Status post tubal ligation History of section H/O abdominoplasty H/O oophorectomy H/O gastric sleeve History of cholecystectomy History of appendectomy Social History marital status: household members: significant other and children lives independently: Yes occupational status: employed Smoking Status: Never smoker alcohol intake: current substance use type: marijuana Discharge Plan Discharge Plan Patient Disposition: Home Provider Discharge Comment: You were admitted to the hospital with abdominal migraine symptoms, improved with supportive care. Discharge orders & Medications Prescriptions: New oxycodone 5 mg tablet 5 mg PO Q4H PRN (Reason: pain) 7 Days Qty: 10 0RF Continued sumatriptan succinate 50 mg tablet 50 mg PO Q2-4H PRN (Reason: migraine headache) Qty: 9 0RF Rx Instructions: do not exceed 4 doses per 24 hrs alprazolam 0.5 mg tablet 0.5 mg PO BID PRN (Reason: Anxiety) topiramate 50 mg tablet 50 mg PO BID Qty: 60 0RF sumatriptan succinate 50 mg tablet 50 mg PO Q2-4H PRN (Reason: migraine) ondansetron HCl 4 mg tablet 4 mg PO Q8H PRN (Reason: nausea/vomiting) phentermine 37.5 mg tablet 37.5 mg PO QAM Follow up/Referrals: Crow Burgos MD [Primary Care Provider] - Diet/Activity/Treatments Diet: Diet as Tolerated Activity: As tolerated, no restrictions. Visit Report/Discharge Packet Instructions: Oxycodone Stand Alone Forms: Patient Portal/API, Stroke Signs & Symptoms Discharge Data Primary Care Provider: Crow Burgos Attending Provider: Bob Mckeon Admit Date/Time: 05/09/24 21:22 Quality VTE Deep Vein Thrombosis/Pulmonary Embolism Present on Admission: No
--- NOTE | 2024-05-10 09:26 | PC.NURSE ---
Patient states that she is feeling much better today. She is getting iv potassium for low K+ at 3.2. Up to the bathroom independently. She tolerated some breakfast and is feeling better. She would like to discharge today.
--- NOTE | 2024-05-10 13:47 | CM.DANOTE ---
DCP Discharge Home Patient is a 43yo F admitted OBS Status on 05/09/24 for hypokalemia and intractable abdominal pain with n/v and diarrhea. Per MD, pt with hx of gastric bypass and bipolar and was recently admitted 03/14/24 and 03/31/24 last month and again 04/27/24 for similar and likely could be due to gastric sleeve/abdominal migraine. Per MD, pt's pain now controlled and tolerating diet and medically stable to d/c and adjusting her medication to reduce risk of another readmission. PCP Now Dr. Tai Cage Payer: [employer] System SW aware of patient from her previous 3 admissions and pt lives at home in [place] with her spouse, child, and dog and works at [employer] at baseline. Pt is independent with mobility, does not use DME, drives and helps care for her child at home. Pt denies any hx of HH or SNF and spouse is her informal POA. Pt has upcoming work trip to [place] tomorrow and feels medically stable to d/c home today with no further needs. Spouse available to provide assist home today. Plan: Patient ot d/c home today with spouse and outpt f/u with GI and close f/u with PCP for ongoing med management of pt's ongoing symptoms. GIO López
== END 2024-05-10 13:23 | disposition home or self-care (01) ==
LOC: ED 21:21 → AC 21:22 → ICU 22:42
PROVIDERS: Emergency Medicine; Admitting Provider Internal Medicine; Emergency Provider Emergency Medicine; PCP Internal Medicine; Referring Provider Emergency Medicine; Visit Provider Internal Medicine
DX: R10.84 Generalized abdominal pain (principal); R11.2 Nausea with vomiting, unspecified; E87.6 Hypokalemia; K21.9 Gastro-esophageal reflux disease without esophagitis; Z98.84 Bariatric surgery status; R19.7 Diarrhea, unspecified
CPT/HCPCS: 36415; 80048; 80053; 83690; 83735; 85025; 87797; 93005; 93010; 96361; 96365; 96366; 96372; 96375; 96376; 99284; G0378; J0780; J1170; J1200; J1650; J1790; J2405

== ENCOUNTER 2024-05-15 15:45 | Emergency (ER) | payer OTHER, SELFPAY ==
[2024-05-15] VITALS (9 sets, daily range): BP systolic 129–167; BP diastolic 72–103; PULSE 45–87; RESP 17; TEMP 36.6–37.1; O2SAT 92–100; BMI 29.2
[2024-05-15 16:20] LABS: Add Manual Diff / Slide Review NO; Basophils Absolute Auto 100 /uL (0-100); Basophils Percent Auto 0.7 % (0-2); Eosinophils Absolute Auto 100 /uL (0-450); Eosinophils Percent Auto 0.9 % (2-4); Hematocrit 34.2 % (36-46); Hemoglobin 11.5 g/dL (12.0-16.0); Lymphocytes Absolute Auto 3100 /uL (1100-4500); Lymphocytes Percent Auto 34.2 % (25-40); Mean Corpuscular HGB Conc 33.5 % (30-36); Mean Corpuscular Hemoglobin 28.1 PG (26-34); Monocytes Absolute Auto 900 /uL (0-900); Monocytes Percent Auto 10.1 % (3-14); Neutrophils Absolute Auto 4900 /uL (1500-7000); Neutrophils Percent Auto 54.1 % (50-75); Platelet Count 300 X10^3/uL (150-400); Red Blood Cell Count 4.07 X10^6/uL (4.0-5.2)
[2024-05-15 16:29] LABS: Alanine Aminotransferase 18 IU/L (<35); Albumin 3.9 g/dL (3.5-5.0); Albumin Globulin Ratio 1.4 (1.0-2.8); Alkaline Phosphatase 49 U/L (38-126); Aspartate Aminotransferase 20 IU/L (14-36); Bilirubin Total 2.2 mg/dL (0.2-1.3); Blood Urea Nitrogen 8 mg/dL (7-17); Calcium 8.9 mg/dL (8.4-10.2); Carbon Dioxide 23 mmol/L (22-32); Chloride 106 mmol/L (98-107); Estimated Glomerular Filt Rate > 60 mL/min (>60); Globulin 2.7 g/dL (1.7-4.1); Glucose 93 mg/dL (70-100); HEMOLYSIS < 15 (0-50); Lipase 178 U/L (23-300); Sodium 137 mmol/L (137-145); Total Protein 6.6 g/dL (6.3-8.2)
[2024-05-15] MEDS: SODIUM CHLORIDE 0.9% 1,000 ML 1000 ML IV ×2 (16:38→18:59)
[2024-05-15] MEDS: ONDANSETRON 4 MG/2 ML INJ IV (16:38)
--- NOTE | 2024-05-15 18:20 | ED.ABDPAIN ---
HPI - Abdominal Pain General Chief Complaint: Abdominal Pain Stated Complaint: abd pain, nausea, vomiting Time Seen by Provider: 05/15/24 17:55 Source: patient Mode of arrival: Ambulatory History of Present Illness HPI narrative: Patient 43-year-old female with recurrent abdominal pain possible abdominal migraine has had exploratory laparotomy has had 2 admissions to this has really 1 April 26 through the and 2nd admission May 09 through the . She has had consultations by surgery, he has had multiple abdominal surgeries including gastric sleeve hysterectomy exploratory laparotomy. She actually went on a business trip 4 days ago started having abdominal pain vomiting she made it home she actually went to [facility] ED last night where she had a CT scan. She took pictures of the CT report it was a non-con abdominal pelvis which did not show any obstruction. She does not want another CT. She was given potassium infusion and fluids last night. She has been trying to take Imitrex Topamax and migraine medications which do not help her abdominal pain. She is pretty exhausted from her ongoing abdominal pain and vomiting. She tried some marijuana to see if it would help his nausea but she typically does not take any marijuana. Related Data Home Medications Medication Instructions Recorded Confirmed alprazolam 0.5 mg tablet 0.5 mg PO BID PRN Anxiety 05/06/23 05/10/24 ondansetron HCl 4 mg tablet 4 mg PO Q8H PRN nausea/vomiting 05/10/24 05/10/24 phentermine 37.5 mg tablet 37.5 mg PO QAM 05/10/24 05/10/24 sumatriptan succinate 50 mg tablet 50 mg PO Q2-4H PRN migraine 05/10/24 05/10/24 Previous Rx's Medication Instructions Recorded topiramate 50 mg tablet 50 mg PO BID #60 tabs 04/02/24 sumatriptan succinate 50 mg tablet 50 mg PO Q2-4H PRN migraine 04/28/24 headache #9 tabs oxycodone 5 mg tablet 5 mg PO Q4H PRN pain 7 days #10 05/10/24 tabs cephalexin 500 mg capsule 500 mg PO BID 7 days #14 caps 05/15/24 promethazine 50 mg rectal 50 mg SD Q6H PRN nausea and 05/15/24 suppository vomiting #12 ea Allergies Allergy/AdvReac Type Severity Reaction Status Date / Time gluten Allergy Celiac Verified 03/13/24 19:07 coconut AdvReac Intermediate Hives Verified 03/13/24 19:07 NSAIDS (Non-Steroidal AdvReac Mild Gastrointestinal Verified 03/13/24 19:07 Anti-Inflamma Upset benzonatate AdvReac Unknown Hives Verified 03/13/24 19:07 [From Tessalon Perles] escitalopram [From Lexapro] AdvReac Unknown Hallucinati Verified 03/13/24 19:07 ng Patient History Medical History Left corneal abrasion Headache Polycystic ovary disease Celiac disease GERD with apnea Hypertension Bipolar disorder Surgical History Status post tubal ligation History of section H/O abdominoplasty H/O oophorectomy H/O gastric sleeve History of cholecystectomy History of appendectomy Social History marital status: household members: significant other and children lives independently: Yes occupational status: employed Smoking Status: Never smoker alcohol intake: current substance use type: marijuana Smoking Status: Never smoker alcohol intake frequency: holidays/special occasions only Substance Use Type: marijuana Exam Initial Vital Signs Initial Vital Signs: Vital Signs Temperature 98 F 05/15/24 16:00 Pulse Rate 85 05/15/24 16:00 Respiratory Rate 17 05/15/24 16:00 Blood Pressure 158/97 H 05/15/24 16:00 Pulse Oximetry 99 05/15/24 16:00 Oxygen Delivery Method Room Air 05/15/24 16:00 GENERAL: Alert 43-year-old female HEENT: Head atraumatic,EOMI, pupils reactive, face symmetric, moist mucous membranes CARDIOVASCULAR: Regular rate and rhythm without murmurs, rubs or gallops. RESPIRATORY: Breath sounds equal bilaterally, no wheezes rales or rhonchi. ABDOMEN: Soft, mild tenderness right lower quadrant no distention guarding or rebound EXTREMITIES: Normal range of motion, no clubbing or edema. Neurovascularly intact NEUROLOGICAL: Alert and oriented x4.Normal gait and speech. SKIN: Warm, dry, no laceration, no petechiae, no rashes or lesions. Course Orders Ordered: ED Orders 05/15/24 17:48 Urine Culture Stat Urine Microscopic Stat Discontinued Medications Droperidol (Droperidol 5 Mg/2 Ml Vial) 5 mg IV NOW ONE Stop: 05/15/24 18:31 Last Admin: 05/15/24 19:05 Dose: 5 mg Documented By: CAROLYN Hydromorphone HCl (Hydromorphone 1 Mg Inj) 1 mg IV NOW ONE Stop: 05/15/24 18:24 Last Admin: 05/15/24 19:05 Dose: 1 mg Documented By: CAROLYN Sodium Chloride (Normal Saline 0.9%) 1,000 mls @ 1,000 mls/hr IV BOLUS ONE Stop: 05/15/24 17:31 Last Infusion: 05/15/24 17:46 Dose: Infused Documented By: Admin: 05/15/24 16:38 Dose: 1,000 mls/hr Documented By: FEMI Sodium Chloride (Normal Saline 0.9%) 1,000 mls @ 1,000 mls/hr IV BOLUS ONE Stop: 05/15/24 19:33 Last Infusion: 05/15/24 20:47 Dose: Infused Documented By: Admin: 05/15/24 18:59 Dose: 1,000 mls/hr Documented By: CAROLYN Ceftriaxone Sodium 1,000 mg/ (Sodium Chloride) 100 mls @ 200 mls/hr IV NOW ONE Stop: 05/15/24 18:36 Last Infusion: 05/15/24 19:27 Dose: Infused Documented By: Admin: 05/15/24 19:12 Dose: 200 mls/hr Documented By: CAROLYN Ondansetron HCl (Ondansetron 4 Mg/2 Ml Inj) 4 mg IV NOW PRN PRN Reason: Nausea And Vomiting Last Admin: 05/15/24 16:38 Dose: 4 mg Documented By: FEMI Ondansetron HCl (Ondansetron 4 Mg Odt) 4 mg PO NOW PRN PRN Reason: Nausea And Vomiting Pantoprazole Sodium (Pantoprazole 40 Mg Vial) 40 mg IV NOW ONE Stop: 05/15/24 18:35 Last Admin: 05/15/24 19:02 Dose: 40 mg Documented By: CAROLYN Vital Signs Vital signs: Vital Signs - 8 hr 05/15/24 18:45 05/15/24 19:15 05/15/24 19:15 Temperature 98.8 F Pulse Rate 72 87 Blood Pressure 167/103 H 140/87 Pulse Oximetry 96 99 Oxygen Delivery Method Room Air 05/15/24 19:30 05/15/24 19:30 05/15/24 20:00 Temperature Pulse Rate 50 L Blood Pressure 132/72 129/79 Pulse Oximetry 100 Oxygen Delivery Method 05/15/24 20:00 05/15/24 20:30 05/15/24 20:30 Temperature Pulse Rate 55 L 49 L Blood Pressure 139/74 Pulse Oximetry 99 100 Oxygen Delivery Method 05/15/24 21:00 05/15/24 21:00 Temperature Pulse Rate 45 L Blood Pressure 131/82 Pulse Oximetry 100 Oxygen Delivery Method MDM - Abdominal Pain Lab Data 05/15/24 16:00 05/15/24 16:00 Labs: Lab Results 05/15/24 05/15/24 Range/Units 16:00 17:48 WBC 9.0 (4.5-11.0) X10^3/uL RBC 4.07 (4.0-5.2) X10^6/uL Hgb 11.5 L (12.0-16.0) g/dL Hct 34.2 L (36-46) % MCV 84.0 (80-100) fL MCH 28.1 (26-34) PG MCHC 33.5 (30-36) % RDW 15.0 H (11.6-14.8) % Plt Count 300 (150-400) X10^3/uL Neut % (Auto) 54.1 (50-75) % Lymph % (Auto) 34.2 (25-40) % [place] % (Auto) 10.1 (3-14) % Eos % (Auto) 0.9 L (2-4) % Baso % (Auto) 0.7 (0-2) % Neut # (Auto) 4900 (5744-6658) /uL Lymph # (Auto) 3100 (2[address]-4525) /uL [place] # (Auto) 900 (0-900) /uL Eos # (Auto) 100 (0-450) /uL Baso # (Auto) 100 (0-100) /uL Sodium 137 (137-145) mmol/L Potassium 3.0 L (3.4-5.1) mmol/L Chloride 106 (98-107) mmol/L Carbon Dioxide 23 (22-32) mmol/L BUN 8 (7-17) mg/dL Creatinine 0.50 L (0.52-1.04) mg/dL Estimated GFR > 60 (>60) mL/min BUN/Creatinine Ratio 16.0 (6-22) Glucose 93 (70-100) mg/dL Calcium 8.9 (8.4-10.2) mg/dL Total Bilirubin 2.2 H (0.2-1.3) mg/dL AST 20 (14-36) IU/L ALT 18 (<35) IU/L Alkaline Phosphatase 49 (38-126) U/L Total Protein 6.6 (6.3-8.2) g/dL Albumin 3.9 (3.5-5.0) g/dL Globulin 2.7 (1.7-4.1) g/dL Albumin/Globulin Ratio 1.4 (1.0-2.8) Lipase 178 (23-300) U/L Urine RBC 0-1/hpf (0-5/HPF) Urine WBC 10-30/hpf H (0-5/HPF) Ur Squamous Epith Cells None seen (0-5/HPF) Urine Bacteria Many (>30) H (None) Ur Culture Indicated? Specimen cultured Vol Urine Centrifuged 10ml (spun) Point of care testing: Point of Care Testing Test Results Negative Urine Dip Bedside Urine Glucose Negative Bedside Urine Bilirubin - Negative Bedside Urine Ketone + 15 Urine Specific [place] 1.030 Bedside Urine Occult Blood +/- Bedside Urine pH 6.0 Bedside Urine Protein + 30 Bedside Urine Urobilinogen - Negative Bedside Urine Nitrite + Positive Bedside Urine Leukocytes + 70 Esterase MDM Narrative Medical decision making narrative: Patient 43-year-old female history of abdominal migraine multiple surgeries frequent ED visits and admissions presents today with ongoing abdominal pain nausea. She actually was seen in the ED last night at [facility] she had a noncontrast abdominal CT which I have reviewed which did not show obstruction. Blood work has been reviewed: He was have chronic hypokalemia today she has a potassium of 3.0 she reports that she has had potassium rider last night in the ED, previous levels have ranged from 2.0-3.2 Other electrolytes are stable no ALEN WBC does not show any leukocytosis or anemia Urinalysis is positive for nitrites and leukocytes Patient received IV fluids Protonix Zofran Dilaudid and droperidol. Tolerating p.o. fluids now overall feeling much better. She is also found have a UTI and was given Rocephin. She has no evidence of sepsis. UTI may be exacerbating symptoms. She overall is feeling much better. She likes the idea of Phenergan suppositories. This time I see no need for imaging she had imaging 24 hours ago Discharge Plan Departure Patient Disposition: Home Clinical Impression: UTI (urinary tract infection), Abdominal migraine Instructions: DI for Urinary Tract Infection (UTI) Activity Restrictions/Additional Instructions: *You have been diagnosed with UTI abdominal migraine *What to do: At this time increase fluids with the best of your ability. You do have a bladder infection and maybe exacerbating your symptoms *Continue to take medications as directed Phenergan suppository 25 mg every 6 hours if needed Keflex 500 mg twice a day for 7 days *Follow up with your primary care provider in 2-3 days or call [phone] *Return to ER if you should have persistent vomiting, worsening abdominal pain dizziness lightheadedness or any new, worsening or concerning symptoms Prescriptions: New cephalexin 500 mg capsule 500 mg PO BID 7 Days Qty: 14 0RF promethazine 50 mg suppository 50 mg SD Q6H PRN (Reason: nausea and vomiting) Qty: 12 0RF No Action sumatriptan succinate 50 mg tablet 50 mg PO Q2-4H PRN (Reason: migraine headache) Qty: 9 0RF Rx Instructions: do not exceed 4 doses per 24 hrs alprazolam 0.5 mg tablet 0.5 mg PO BID PRN (Reason: Anxiety) topiramate 50 mg tablet 50 mg PO BID Qty: 60 0RF sumatriptan succinate 50 mg tablet 50 mg PO Q2-4H PRN (Reason: migraine) ondansetron HCl 4 mg tablet 4 mg PO Q8H PRN (Reason: nausea/vomiting) phentermine 37.5 mg tablet 37.5 mg PO QAM oxycodone 5 mg tablet 5 mg PO Q4H PRN (Reason: pain) 7 Days Qty: 10 0RF Referrals: Crow Burgos MD [Primary Care Provider] - Stand Alone Forms: Patient Portal/API
[2024-05-15 18:37] LABS: Urine Volume 10mL (spun)
[2024-05-15 18:38] LABS: Bacteria Urine Many (>30); Culture Indicated Urine Specimen Cultured; RBC Urine 0-1/HPF (0-5/HPF); Squamous Epithelial Cell Urine None Seen (0-5/HPF); WBC Urine 10-30/HPF (0-5/HPF)
[2024-05-15] MEDS: PANTOPRAZOLE 40 MG VIAL IV (19:02)
[2024-05-15] MEDS: DROPERIDOL 5 MG/2 ML VIAL IV (19:05)
[2024-05-15] MEDS: HYDROMORPHONE 1 MG INJ IV (19:05)
[2024-05-15] MEDS: cefTRIAXone 1,000 MG in SODIUM CHLORIDE 0.9% 100 ML 200 MG IV (19:12)
== END 2024-05-15 21:30 | disposition home or self-care (01) ==
PROVIDERS: Emergency Medicine; Emergency Provider Emergency Medicine; PCP Internal Medicine
DX: N39.0 Urinary tract infection, site not specified (principal); G43.D0 Abdominal migraine, not intractable; R11.2 Nausea with vomiting, unspecified; Z98.84 Bariatric surgery status
CPT/HCPCS: 36415; 80053; 81003; 81015; 81025; 83690; 85025; 87077; 87086; 87186; 96361; 96374; 96375; 99284; J0696; J1170; J1790; J2405; J2470

== ENCOUNTER 2024-05-19 20:51 | Emergency (ER) | payer OTHER, SELFPAY ==
[2024-05-19 21:05] VITALS: BP 195/108; PULSE 101; RESP 20; TEMP 36.7; O2SAT 99; BMI 30.7
[2024-05-19 22:46] VITALS: BP 169/106; PULSE 108; RESP 22; TEMP 36.6; O2SAT 99
[2024-05-19] MEDS: ONDANSETRON 4 MG ODT PO (22:50)
[2024-05-20] VITALS (17 sets, daily range): BP systolic 133–195; BP diastolic 78–109; PULSE 61–93; RESP 16–18; TEMP 36.9; O2SAT 92–100
--- NOTE | 2024-05-20 01:59 | ED_ITS ---
HPI - Abdominal Pain <Karenurvashi MilanDO - Last Filed: 05/21/24 03:04> General Chief Complaint: Abdominal Pain Stated Complaint: vomiting, abd pain Time Seen by Provider: 05/20/24 00:49 Source: patient Mode of arrival: Family Vehicle History of Present Illness HPI narrative: 43-year-old female with a history of recurrent abdominal pain states she has been diagnosed with abdominal migraines in his on Topamax as well as several other medications. She has had an ex lap and 2 prior admissions. Patient states this feels very similar to her prior episodes but it is little bit more intense. States since then started earlier today. She tried suppository Phenergan as well as Zofran at home without any improvement. Denies fevers. She has had some dry heaves and nausea today. States similar location as her pain more in the right lower region. Patient states she has been urinating regularly. She was diagnosed with a UTI on her last visit she states she has been taking the antibiotics that she was prescribed. Patient states she has had bowel movements. Denies black or bloody stools. Patient states she is on some medications for mental health as well as for her abdominal migraines. Patient has had cholecystectomy as well as appendectomy, also oophorectomy and gastric sleeve. Allergies listed in the EMR. No tobacco occasional alcohol, uses marijuana no other recreational drugs. Patient states droperidol has been helpful in the past. Related Data Home Medications Medication Instructions Recorded Confirmed alprazolam 0.5 mg tablet 0.5 mg PO BID PRN Anxiety 05/06/23 05/10/24 ondansetron HCl 4 mg tablet 4 mg PO Q8H PRN nausea/vomiting 05/10/24 05/10/24 phentermine 37.5 mg tablet 37.5 mg PO QAM 05/10/24 05/10/24 sumatriptan succinate 50 mg tablet 50 mg PO Q2-4H PRN migraine 05/10/24 05/10/24 Previous Rx's Medication Instructions Recorded topiramate 50 mg tablet 50 mg PO BID #60 tabs 04/02/24 sumatriptan succinate 50 mg tablet 50 mg PO Q2-4H PRN migraine 04/28/24 headache #9 tabs cephalexin 500 mg capsule 500 mg PO BID 7 days #14 caps 05/15/24 promethazine 50 mg rectal 50 mg NH Q6H PRN nausea and 05/15/24 suppository vomiting #12 ea nitrofurantoin 100 mg PO Q12H 5 days #10 caps 05/17/24 monohydrate/macrocrystals 100 mg capsule (Macrobid) Allergies Allergy/AdvReac Type Severity Reaction Status Date / Time gluten Allergy Celiac Verified 03/13/24 19:07 coconut AdvReac Intermediate Hives Verified 03/13/24 19:07 NSAIDS (Non-Steroidal AdvReac Mild Gastrointestinal Verified 03/13/24 19:07 Anti-Inflamma Upset benzonatate AdvReac Unknown Hives Verified 03/13/24 19:07 [From Tessalon Perles] escitalopram [From Lexapro] AdvReac Unknown Hallucinati Verified 03/13/24 19:07 ng Review of Systems <Karen Milan DO - Last Filed: 05/21/24 03:04> Review of Systems ROS Unobtainable: All systems reviewed & are unremarkable except as noted in HPI and below Patient History <Karen Milan DO - Last Filed: 05/21/24 03:04> Medical History Left corneal abrasion Headache Polycystic ovary disease Celiac disease GERD with apnea Hypertension Bipolar disorder Surgical History Status post tubal ligation History of section H/O abdominoplasty H/O oophorectomy H/O gastric sleeve History of cholecystectomy History of appendectomy Social History marital status: household members: significant other and children lives independently: Yes occupational status: employed Smoking Status: Never smoker alcohol intake: current substance use type: marijuana Smoking Status: Never smoker alcohol intake frequency: holidays/special occasions only Substance Use Type: marijuana Exam <Karen Milan DO - Last Filed: 05/21/24 03:04> Narrative Exam Narrative: GENERAL: Alert and oriented x three, female in moderate distress. HEENT: Head normocephalic, atraumatic, EOMI, pupils reactive, face symmetric, moist mucous membranes NECK: Supple, full range of motion CARDIOVASCULAR: Regular rate and rhythm without murmurs, rubs or gallops. RESPIRATORY: Breath sounds equal bilaterally, no wheezes rales or rhonchi. ABDOMEN: Soft, generalized tenderness. Normoactive bowel sounds all 4 quadrants. No guarding or rebound, rigidity, no mass : No CVA tenderness EXTREMITIES: Normal range of motion, no clubbing or edema. Neurovascularly intact NEUROLOGICAL: Cranial nerves II through XII grossly intact. Moving all extremities SKIN: Warm, dry, no petechiae, no rashes or lesions. Initial Vital Signs Initial Vital Signs: Vital Signs Temperature 98.1 F 05/19/24 21:05 Pulse Rate 101 H 05/19/24 21:05 Respiratory Rate 20 05/19/24 21:05 Blood Pressure 195/108 H 05/19/24 21:05 Pulse Oximetry 99 05/19/24 21:05 Oxygen Delivery Method Room Air 05/19/24 21:05 <Torri Che DO - Last Filed: 05/20/24 14:00> Initial Vital Signs Initial Vital Signs: Vital Signs Temperature 98.1 F 05/19/24 21:05 Pulse Rate 101 H 05/19/24 21:05 Respiratory Rate 20 05/19/24 21:05 Blood Pressure 195/108 H 05/19/24 21:05 Pulse Oximetry 99 05/19/24 21:05 Oxygen Delivery Method Room Air 05/19/24 21:05 Course <Karen Milan, DO - Last Filed: 05/21/24 03:04> Orders Ordered: Discontinued Medications Diphenhydramine HCl (Diphenhydramine 50 Mg/Ml Vial) 50 mg IV NOW ONE Stop: 05/20/24 04:36 Last Admin: 05/20/24 04:41 Dose: 50 mg Documented By: Droperidol (Droperidol 5 Mg/2 Ml Vial) 5 mg IV NOW ONE Stop: 05/20/24 02:02 Last Admin: 05/20/24 02:08 Dose: 5 mg Documented By: Sodium Chloride (Normal Saline 0.9%) 1,000 mls @ 1,000 mls/hr IV BOLUS ONE Stop: 05/20/24 03:00 Last Infusion: 05/20/24 03:28 Dose: Infused Documented By: Admin: 05/20/24 02:08 Dose: 1,000 mls/hr Documented By: Sodium Chloride (Normal Saline 0.9%) 1,000 mls @ 1,000 mls/hr IV BOLUS ONE Stop: 05/20/24 05:29 Last Infusion: 05/20/24 06:07 Dose: Infused Documented By: Admin: 05/20/24 04:41 Dose: 1,000 mls/hr Documented By: Ketorolac Tromethamine (Ketorolac 30 Mg/Ml Vial) 15 mg IV NOW ONE Stop: 05/20/24 06:22 Last Admin: 05/20/24 06:28 Dose: 15 mg Documented By: Ondansetron HCl (Ondansetron 4 Mg/2 Ml Inj) 4 mg IV NOW PRN PRN Reason: Nausea And Vomiting Ondansetron HCl (Ondansetron 4 Mg Odt) 4 mg PO NOW PRN PRN Reason: Nausea And Vomiting Last Admin: 05/19/24 22:50 Dose: 4 mg Documented By: ZAKI Vital Signs Vital signs: Vital Signs - 8 hr 05/20/24 06:30 05/20/24 06:30 05/20/24 06:35 Temperature Pulse Rate 80 Respiratory Rate Blood Pressure 181/90 H Pulse Oximetry 100 100 Oxygen Delivery Method 05/20/24 06:40 05/20/24 06:46 05/20/24 06:50 Temperature Pulse Rate 79 68 61 Respiratory Rate Blood Pressure Pulse Oximetry 100 92 100 Oxygen Delivery Method 05/20/24 06:55 05/20/24 07:00 05/20/24 07:05 Temperature Pulse Rate 65 78 70 Respiratory Rate Blood Pressure Pulse Oximetry 100 100 100 Oxygen Delivery Method 05/20/24 07:10 05/20/24 07:15 05/20/24 07:20 Temperature Pulse Rate 70 69 70 Respiratory Rate Blood Pressure Pulse Oximetry 100 100 100 Oxygen Delivery Method 05/20/24 07:25 05/20/24 07:58 Temperature 98.4 F Pulse Rate 69 64 Respiratory Rate 16 Blood Pressure 195/109 H Pulse Oximetry 100 100 Oxygen Delivery Method Room Air <Torri Che DO - Last Filed: 05/20/24 14:00> Orders Ordered: Discontinued Medications Diphenhydramine HCl (Diphenhydramine 50 Mg/Ml Vial) 50 mg IV NOW ONE Stop: 05/20/24 04:36 Last Admin: 05/20/24 04:41 Dose: 50 mg Documented By: Droperidol (Droperidol 5 Mg/2 Ml Vial) 5 mg IV NOW ONE Stop: 05/20/24 02:02 Last Admin: 05/20/24 02:08 Dose: 5 mg Documented By: Sodium Chloride (Normal Saline 0.9%) 1,000 mls @ 1,000 mls/hr IV BOLUS ONE Stop: 05/20/24 03:00 Last Infusion: 05/20/24 03:28 Dose: Infused Documented By: Admin: 05/20/24 02:08 Dose: 1,000 mls/hr Documented By: Sodium Chloride (Normal Saline 0.9%) 1,000 mls @ 1,000 mls/hr IV BOLUS ONE Stop: 05/20/24 05:29 Last Infusion: 05/20/24 06:07 Dose: Infused Documented By: Admin: 05/20/24 04:41 Dose: 1,000 mls/hr Documented By: Ketorolac Tromethamine (Ketorolac 30 Mg/Ml Vial) 15 mg IV NOW ONE Stop: 05/20/24 06:22 Last Admin: 05/20/24 06:28 Dose: 15 mg Documented By: Ondansetron HCl (Ondansetron 4 Mg/2 Ml Inj) 4 mg IV NOW PRN PRN Reason: Nausea And Vomiting Ondansetron HCl (Ondansetron 4 Mg Odt) 4 mg PO NOW PRN PRN Reason: Nausea And Vomiting Last Admin: 05/19/24 22:50 Dose: 4 mg Documented By: ZAKI Vital Signs Vital signs: Vital Signs - 8 hr 05/20/24 06:30 05/20/24 06:30 05/20/24 06:35 Temperature Pulse Rate 80 Respiratory Rate Blood Pressure 181/90 H Pulse Oximetry 100 100 Oxygen Delivery Method 05/20/24 06:40 05/20/24 06:46 05/20/24 06:50 Temperature Pulse Rate 79 68 61 Respiratory Rate Blood Pressure Pulse Oximetry 100 92 100 Oxygen Delivery Method 05/20/24 06:55 05/20/24 07:00 05/20/24 07:05 Temperature Pulse Rate 65 78 70 Respiratory Rate Blood Pressure Pulse Oximetry 100 100 100 Oxygen Delivery Method 05/20/24 07:10 05/20/24 07:15 05/20/24 07:20 Temperature Pulse Rate 70 69 70 Respiratory Rate Blood Pressure Pulse Oximetry 100 100 100 Oxygen Delivery Method 05/20/24 07:25 05/20/24 07:58 Temperature 98.4 F Pulse Rate 69 64 Respiratory Rate 16 Blood Pressure 195/109 H Pulse Oximetry 100 100 Oxygen Delivery Method Room Air MDM - Abdominal Pain <Karen Milan, - Last Filed: 05/21/24 03:04> Lab Data 05/19/24 01:55 05/19/24 01:55 Labs: Lab Results 05/19/24 Range/Units 01:55 WBC 12.0 H (4.5-11.0) X10^3/uL RBC 4.59 (4.0-5.2) X10^6/uL Hgb 13.1 (12.0-16.0) g/dL Hct 38.6 (36-46) % MCV 84.1 (80-100) fL MCH 28.6 (26-34) PG MCHC 34.0 (30-36) % RDW 14.7 (11.6-14.8) % Plt Count 189 (150-400) X10^3/uL Neut % (Auto) 82.8 H (50-75) % Lymph % (Auto) 12.9 L (25-40) % [place] % (Auto) 3.2 (3-14) % Eos % (Auto) 0.5 L (2-4) % Baso % (Auto) 0.6 (0-2) % Neut # (Auto) 86711 H (3755-9700) /uL Lymph # (Auto) 1600 (0997-0694) /uL [place] # (Auto) 400 (0-900) /uL Eos # (Auto) 100 (0-450) /uL Baso # (Auto) 100 (0-100) /uL Sodium 138 (137-145) mmol/L Potassium 3.9 (3.4-5.1) mmol/L Chloride 105 (98-107) mmol/L Carbon Dioxide 20 L (22-32) mmol/L BUN 7 (7-17) mg/dL Creatinine 0.46 L (0.52-1.04) mg/dL Estimated GFR > 60 (>60) mL/min BUN/Creatinine Ratio 15.2 (6-22) Glucose 138 H (70-100) mg/dL Calcium 9.7 (8.4-10.2) mg/dL Total Bilirubin 1.4 H (0.2-1.3) mg/dL AST 26 (14-36) IU/L ALT 26 (<35) IU/L Alkaline Phosphatase 46 (38-126) U/L Total Protein 7.6 (6.3-8.2) g/dL Albumin 4.8 (3.5-5.0) g/dL Globulin 2.8 (1.7-4.1) g/dL Albumin/Globulin Ratio 1.7 (1.0-2.8) Lipase 154 (23-300) U/L Point of care testing: Point of Care Testing Test Results Negative Urine Dip Bedside Urine Glucose Negative Bedside Urine Bilirubin - Negative Bedside Urine Ketone +/- 5 Urine Specific [place] 1.015 Bedside Urine Occult Blood - Negative Bedside Urine pH 7.0 Bedside Urine Protein - Negative Bedside Urine Urobilinogen - Negative Bedside Urine Nitrite - Negative Bedside Urine Leukocytes - Negative Esterase MDM Narrative Medical decision making narrative: Labs show white count of 12, from the 7th when she was 9 but was 12 on 05/09/2024. Hemoglobin 13 platelets are 189. Chemistry shows normal sodium, potassium and chloride CO2 is 20 BUN 7 creatinine 0.46 glucose is 138 bilirubin is 1.4 has been as high as 2.6 patient has been consistently elevated with a bilirubin on last 3 visits. She did have a CT of her abdomen on 04/26/2024 which was negative for acute change. She has had multiple abdominal CTs and a Gastrografin study in March. Patient's visit on 05/15 2024 notes that she had had CT abdomen at [facility] which was reviewed and did not show any obstruction on 05/14/2024. Point of care urine is negative for . Positive for ketones no nitrates or leukocyte esterase. Discussed with patient bilirubin is been a little bit up she has had cholecystectomy. She has had appendectomy in the past her pain is more right- sided. What she describes as being lower in her abdomen rather than higher. Re-evaluation after fluids and droperidol. Patient states she feels about 50% better. Still has abdominal discomfort has not had any persistent vomiting. Discussed we will give additional L of fluids and additional medication. Patient notes she has been chronically hypokalemic. On recheck 0505, patient is sleeping. Recheck at 6:22 a.m. patient sleeping has not had any additional emesis. She awakens easily. States she was still painful good we will give a dose of Toradol. Allergy list notes she has allergies to NSAIDs med also notes she can have them IV. 730- -patient 43-year-old female history of abdominal migraine cyclic vomiting presenting again today for the same. She was signed out to me by Dr. Milan. Recent CT at [facility]. She has feeling a bit better still having pain. Abdomen is soft no peritoneal signs. I previously gave her prescription for suppository Phenergan she said that did not really work. After Toradol she is feeling better she would like to go home. She does not need any further prescriptions she has a referral to GI, awaiting for appointment <Torri Che, - Last Filed: 05/20/24 14:00> Lab Data Labs: Lab Results 05/19/24 Range/Units 01:55 WBC 12.0 H (4.5-11.0) X10^3/uL RBC 4.59 (4.0-5.2) X10^6/uL Hgb 13.1 (12.0-16.0) g/dL Hct 38.6 (36-46) % MCV 84.1 (80-100) fL MCH 28.6 (26-34) PG MCHC 34.0 (30-36) % RDW 14.7 (11.6-14.8) % Plt Count 189 (150-400) X10^3/uL Neut % (Auto) 82.8 H (50-75) % Lymph % (Auto) 12.9 L (25-40) % [place] % (Auto) 3.2 (3-14) % Eos % (Auto) 0.5 L (2-4) % Baso % (Auto) 0.6 (0-2) % Neut # (Auto) 49214 H (3223-2742) /uL Lymph # (Auto) 1600 (5748-6149) /uL [place] # (Auto) 400 (0-900) /uL Eos # (Auto) 100 (0-450) /uL Baso # (Auto) 100 (0-100) /uL Sodium 138 (137-145) mmol/L Potassium 3.9 (3.4-5.1) mmol/L Chloride 105 (98-107) mmol/L Carbon Dioxide 20 L (22-32) mmol/L BUN 7 (7-17) mg/dL Creatinine 0.46 L (0.52-1.04) mg/dL Estimated GFR > 60 (>60) mL/min BUN/Creatinine Ratio 15.2 (6-22) Glucose 138 H (70-100) mg/dL Calcium 9.7 (8.4-10.2) mg/dL Total Bilirubin 1.4 H (0.2-1.3) mg/dL AST 26 (14-36) IU/L ALT 26 (<35) IU/L Alkaline Phosphatase 46 (38-126) U/L Total Protein 7.6 (6.3-8.2) g/dL Albumin 4.8 (3.5-5.0) g/dL Globulin 2.8 (1.7-4.1) g/dL Albumin/Globulin Ratio 1.7 (1.0-2.8) Lipase 154 (23-300) U/L Point of care testing: Point of Care Testing Test Results Negative Urine Dip Bedside Urine Glucose Negative Bedside Urine Bilirubin - Negative Bedside Urine Ketone +/- 5 Urine Specific [place] 1.015 Bedside Urine Occult Blood - Negative Bedside Urine pH 7.0 Bedside Urine Protein - Negative Bedside Urine Urobilinogen - Negative Bedside Urine Nitrite - Negative Bedside Urine Leukocytes - Negative Esterase MDM Narrative Medical decision making narrative: Labs show white count of 12, from the 7th when she was 10 but was 12 on 05/09/2024. Hemoglobin 13 platelets are 189. Chemistry shows normal sodium, potassium and chloride CO2 is 20 BUN 7 creatinine 0.46 glucose is 138 bilirubin is 1.4 has been as high as 2.6 patient has been consistently elevated with a bilirubin on last 3 visits. She did have a CT of her abdomen on 04/26/2024 which was negative for acute change. She has had multiple abdominal CTs and a Gastrografin study in March. Patient's visit on 05/15 2024 notes that she had had CT abdomen at [facility] which was reviewed and did not show any obstruction on 05/14/2024. Point of care urine is negative for . Positive for ketones no nitrates or leukocyte esterase. Discussed with patient bilirubin is been a little bit up she has had cholecystectomy. She has had appendectomy in the past her pain is more right- sided. What she describes as being lower in her abdomen rather than higher. Re-evaluation after fluids and droperidol. Patient states she feels about 50% better. Still has abdominal discomfort has not had any persistent vomiting. Discussed we will give additional L of fluids and additional medication. Patient notes she has been chronically hypokalemic. On recheck 0505, patient is sleeping. Recheck at 6:22 a.m. patient sleeping has not had any additional emesis. She awakens easily. States she was still painful good we will give a dose of Toradol. Allergy list notes she has allergies to NSAIDs med also notes she can have them IV. 730- -patient 43-year-old female history of abdominal migraine cyclic vomiting presenting again today for the same. She was signed out to me by Dr. Milan. Recent CT at [facility]. She has feeling a bit better still having pain. Abdomen is soft no peritoneal signs. I previously gave her prescription for suppository Phenergan she said that did not really work. After Toradol she is feeling better she would like to go home. She does not need any further prescriptions she has a referral to GI, awaiting for appointment Discharge Plan Departure Patient Disposition: Home Clinical Impression: Abdominal pain, Vomiting Instructions: DI for Abdominal Pain-Adult Activity Restrictions/Additional Instructions: Follow up with your physicians. Continue your home medications as prescribed. Return for new or worsening symptoms, fevers, new or worsening abdominal back or flank pain, persistent vomiting, black or bloody, lightheadedness or passing out or other new or concerning changes. Prescriptions: No Action sumatriptan succinate 50 mg tablet 50 mg PO Q2-4H PRN (Reason: migraine headache) Qty: 9 0RF Rx Instructions: do not exceed 4 doses per 24 hrs alprazolam 0.5 mg tablet 0.5 mg PO BID PRN (Reason: Anxiety) topiramate 50 mg tablet 50 mg PO BID Qty: 60 0RF sumatriptan succinate 50 mg tablet 50 mg PO Q2-4H PRN (Reason: migraine) ondansetron HCl 4 mg tablet 4 mg PO Q8H PRN (Reason: nausea/vomiting) phentermine 37.5 mg tablet 37.5 mg PO QAM cephalexin 500 mg capsule 500 mg PO BID 7 Days Qty: 14 0RF promethazine 50 mg suppository 50 mg NH Q6H PRN (Reason: nausea and vomiting) Qty: 12 0RF nitrofurantoin monohyd/m-cryst [Macrobid] 100 mg capsule 100 mg PO Q12H 5 Days Qty: 10 0RF Rx Instructions: must administer with a meal/food Referrals: Crow Burgos MD [Primary Care Provider] - Stand Alone Forms: Patient Portal/API
[2024-05-20] MEDS: SODIUM CHLORIDE 0.9% 1,000 ML 1000 ML IV ×2 (02:08→04:41)
[2024-05-20] MEDS: DROPERIDOL 5 MG/2 ML VIAL IV (02:08)
[2024-05-20 02:14] LABS: Add Manual Diff / Slide Review NO; Basophils Absolute Auto 100 /uL (0-100); Basophils Percent Auto 0.6 % (0-2); Eosinophils Absolute Auto 100 /uL (0-450); Eosinophils Percent Auto 0.5 % (2-4); Hematocrit 38.6 % (36-46); Hemoglobin 13.1 g/dL (12.0-16.0); Lymphocytes Absolute Auto 1600 /uL (1100-4500); Lymphocytes Percent Auto 12.9 % (25-40); Mean Corpuscular Hemoglobin 28.6 PG (26-34); Mean Corpuscular Volume 84.1 fL (80-100); Monocytes Absolute Auto 400 /uL (0-900); Monocytes Percent Auto 3.2 % (3-14); Neutrophils Absolute Auto 10000 /uL (1500-7000); Neutrophils Percent Auto 82.8 % (50-75); Platelet Count 189 X10^3/uL (150-400); Red Blood Cell Count 4.59 X10^6/uL (4.0-5.2); Red Cell Distribution Width 14.7 % (11.6-14.8)
[2024-05-20 02:21] LABS: Alanine Aminotransferase 26 IU/L (<35); Albumin 4.8 g/dL (3.5-5.0); Albumin Globulin Ratio 1.7 (1.0-2.8); Alkaline Phosphatase 46 U/L (38-126); Aspartate Aminotransferase 26 IU/L (14-36); BUN Creatinine Ratio 15.2 (6-22); Bilirubin Total 1.4 mg/dL (0.2-1.3); Blood Urea Nitrogen 7 mg/dL (7-17); Calcium 9.7 mg/dL (8.4-10.2); Carbon Dioxide 20 mmol/L (22-32); Chloride 105 mmol/L (98-107); Estimated Glomerular Filt Rate > 60 mL/min (>60); Globulin 2.8 g/dL (1.7-4.1); Glucose 138 mg/dL (70-100); Lipase 154 U/L (23-300); Potassium 3.9 mmol/L (3.4-5.1); Sodium 138 mmol/L (137-145); Total Protein 7.6 g/dL (6.3-8.2)
[2024-05-20 02:38] LABS: HEMOLYSIS 67 (0-50)
--- NOTE | 2024-05-20 04:00 | PC.NURSE ---
Pt sitting up in bed. No emesis noted. Pt reports that she feels a little better. MD aware.
[2024-05-20] MEDS: diphenhydrAMINE 50 MG/ML VIAL IV (04:41)
[2024-05-20] MEDS: KETOROLAC 30 MG/ML VIAL 15 MG IV (06:28)
== END 2024-05-20 07:59 | disposition home or self-care (01) ==
PROVIDERS: Emergency Medicine; Emergency Provider Emergency Medicine; PCP Internal Medicine
DX: R10.9 Unspecified abdominal pain (principal); R11.2 Nausea with vomiting, unspecified; G43.D0 Abdominal migraine, not intractable
CPT/HCPCS: 80053; 81003; 81025; 83690; 85025; 96361; 96374; 96375; 99284; J1200; J1790; J1885

== ENCOUNTER 2024-06-10 06:45 | Emergency (ER) | payer OTHER, SELFPAY ==
[2024-06-10] VITALS (13 sets, daily range): BP systolic 92–184; BP diastolic 51–104; PULSE 63–89; RESP 16; TEMP 37; O2SAT 89–100
--- NOTE | 2024-06-10 07:08 | ED_ITS ---
HPI - Abdominal Pain General Chief Complaint: Abdominal Pain Stated Complaint: abd pain, vomiting Time Seen by Provider: 06/10/24 07:08 Source: patient Mode of arrival: Ambulatory History of Present Illness HPI narrative: Patient is a 43-year-old female with history of recurrent abdominal pain has been diagnosed with abdominal migraines is on Topamax and other medications for this. She has had a history of ex lap with 2 prior admissions. Patient states that this is similar to her history of recurrent abdominal pain, states that it started earlier this morning woke her up. Has had some nausea and vomiting but no hematemesis coffee-ground emesis. No diarrhea. States she did try her home suppository of Phenergan to help with her symptoms but that did not help therefore came into the ED for further evaluation treatment Related Data Home Medications Medication Instructions Recorded Confirmed alprazolam 0.5 mg tablet 0.5 mg PO BID PRN Anxiety 05/06/23 05/10/24 ondansetron HCl 4 mg tablet 4 mg PO Q8H PRN nausea/vomiting 05/10/24 05/10/24 phentermine 37.5 mg tablet 37.5 mg PO QAM 05/10/24 05/10/24 sumatriptan succinate 50 mg tablet 50 mg PO Q2-4H PRN migraine 05/10/24 05/10/24 Previous Rx's Medication Instructions Recorded topiramate 50 mg tablet 50 mg PO BID #60 tabs 04/02/24 sumatriptan succinate 50 mg tablet 50 mg PO Q2-4H PRN migraine 04/28/24 headache #9 tabs promethazine 50 mg rectal 50 mg [place] Q6H PRN nausea and 05/15/24 suppository vomiting #12 ea Allergies Allergy/AdvReac Type Severity Reaction Status Date / Time gluten Allergy Celiac Verified 03/13/24 19:07 coconut AdvReac Intermediate Hives Verified 03/13/24 19:07 NSAIDS (Non-Steroidal AdvReac Mild Gastrointestinal Verified 03/13/24 19:07 Anti-Inflamma Upset benzonatate AdvReac Unknown Hives Verified 03/13/24 19:07 [From Tessalon Perles] escitalopram [From Lexapro] AdvReac Unknown Hallucinati Verified 03/13/24 19:07 ng Review of Systems Review of Systems Narrative: General: Denies fever, chills, weight loss HEENT: Denies headache, eye drainage, eye irritation, head trauma, sore throat, voice change Cardiovascular: Denies any chest pain, palpitations, shortness of breath, tachycardia Respiratory: Denies any shortness of breath, cough, wheeze, stridor GI/: Positive abdominal pain, nausea vomiting denies diarrhea, bright red blood per rectum, melanotic stools, urinary frequency, urinary retention, dysuria, hematuria MSK: Denies any joint pain, muscle pains, swelling Skin: Denies any rashes, lesions, discoloration Neuro: Denies any headache, lightheadedness, dizziness, fainting, weakness Psych: Denies SI/HI Patient History Medical History Left corneal abrasion Headache Polycystic ovary disease Celiac disease GERD with apnea Hypertension Bipolar disorder Surgical History Status post tubal ligation History of section H/O abdominoplasty H/O oophorectomy H/O gastric sleeve History of cholecystectomy History of appendectomy Social History marital status: household members: significant other and children lives independently: Yes occupational status: employed Smoking Status: Never smoker alcohol intake: current substance use type: marijuana Smoking Status: Never smoker alcohol intake frequency: holidays/special occasions only Substance Use Type: marijuana Exam Narrative Exam Narrative: General: Cooperative, comfortable, well-developed, not in acute distress HEENT: Normocephalic, atraumatic, PERRLA, normal sclera, eyelids normal, Neck: Active full range of motion, atraumatic Chest: Normal to inspection, negative crepitus, no overlying erythema ecchymosis Respiratory: Normal respiratory effort, not in acute respiratory distress, clear to auscultation bilaterally negative cough, wheeze, tachypnea, rhonchi, rales Cardiology: Regular rate rhythm negative gallop, murmur, rubs GI/: Normal to inspection, soft, nonrigid, mild tenderness to palpation, exam deferred MSK: Full range of active range of motion of all 4 extremities, atraumatic Skin: No rashes lesions noted Neuro: Alert awake oriented x3, moves all 4 extremities spontaneously, cranial nerves intact, able to answer all questions appropriately follows commands appropriately Psych: Cooperative, negative suicidal or homicidal ideations Initial Vital Signs Initial Vital Signs: Vital Signs Temperature 98.6 F 06/10/24 07:03 Pulse Rate 89 06/10/24 07:03 Respiratory Rate 16 06/10/24 07:03 Blood Pressure 184/104 H 06/10/24 07:03 Pulse Oximetry 98 06/10/24 07:03 Oxygen Delivery Method Room Air 06/10/24 07:03 Course Orders Ordered: ED Orders 06/10/24 07:13 EKG-12 Lead Stat 06/10/24 07:14 CT abdomen pelvis w con Stat 06/10/24 07:50 Complete Blood Count AUTO DIFF Stat Comprehensive Metabolic Panel Stat Lipase Stat Discontinued Medications Droperidol (Droperidol 5 Mg/2 Ml Vial) 5 mg IV NOW ONE Stop: 06/10/24 07:14 Last Admin: 06/10/24 07:46 Dose: 5 mg Documented By: MAN Hydromorphone HCl (Hydromorphone 1 Mg Inj) 1 mg IV NOW ONE Stop: 06/10/24 08:26 Last Admin: 06/10/24 08:30 Dose: 1 mg Documented By: MAN Sodium Chloride (Normal Saline 0.9%) 1,000 mls @ 1,000 mls/hr IV BOLUS ONE Stop: 06/10/24 08:12 Last Infusion: 06/10/24 08:51 Dose: Infused Documented By: Admin: 06/10/24 07:45 Dose: 1,000 mls/hr Documented By: MAN Ketorolac Tromethamine (Ketorolac 30 Mg/Ml Vial) 30 mg IV NOW ONE Stop: 06/10/24 07:14 Last Admin: 06/10/24 07:46 Dose: 30 mg Documented By: MAN Vital Signs Vital signs: Vital Signs - 8 hr 06/10/24 07:03 06/10/24 08:00 06/10/24 08:12 Temperature 98.6 F Pulse Rate 89 71 75 Respiratory Rate 16 Blood Pressure 184/104 H 180/88 H Pulse Oximetry 98 100 100 Oxygen Delivery Method Room Air Room Air 06/10/24 08:15 06/10/24 08:15 06/10/24 08:30 Temperature Pulse Rate 70 64 Respiratory Rate Blood Pressure 181/88 H Pulse Oximetry 100 100 Oxygen Delivery Method 06/10/24 08:37 06/10/24 08:37 06/10/24 08:50 Temperature Pulse Rate 68 68 Respiratory Rate Blood Pressure 145/94 H Pulse Oximetry 100 96 Oxygen Delivery Method 06/10/24 08:51 06/10/24 08:51 06/10/24 09:00 Temperature Pulse Rate 65 Respiratory Rate Blood Pressure 117/63 97/54 L Pulse Oximetry 94 Oxygen Delivery Method 06/10/24 09:00 Temperature Pulse Rate 63 Respiratory Rate Blood Pressure Pulse Oximetry 94 Oxygen Delivery Method MDM - Abdominal Pain Differential Diagnosis Differential diagnosis: Likely abdominal pain, constipation, diverticulitis, small bowel obstruction and other (Electrolyte abnormality, urinary tract infection, migraine abdominal pain) Lab Data 06/10/24 07:50 06/10/24 07:50 Labs: Lab Results 06/10/24 Range/Units 07:50 WBC 11.4 H (4.5-11.0) X10^3/uL RBC 4.64 (4.0-5.2) X10^6/uL Hgb 12.8 (12.0-16.0) g/dL Hct 38.6 (36-46) % MCV 83.2 (80-100) fL MCH 27.6 (26-34) PG MCHC 33.2 (30-36) % RDW 14.3 (11.6-14.8) % Plt Count 348 (150-400) X10^3/uL Neut % (Auto) 72.2 (50-75) % Lymph % (Auto) 20.2 L (25-40) % [place] % (Auto) 6.4 (3-14) % Eos % (Auto) 0.9 L (2-4) % Baso % (Auto) 0.3 (0-2) % Neut # (Auto) 8200 H (7969-5573) /uL Lymph # (Auto) 2300 (8472-4218) /uL [place] # (Auto) 700 (0-900) /uL Eos # (Auto) 100 (0-450) /uL Baso # (Auto) 0 (0-100) /uL Sodium 138 (137-145) mmol/L Potassium 3.4 (3.4-5.1) mmol/L Chloride 105 (98-107) mmol/L Carbon Dioxide 22 (22-32) mmol/L BUN 11 (7-17) mg/dL Creatinine 0.56 (0.52-1.04) mg/dL Estimated GFR > 60 (>60) mL/min BUN/Creatinine Ratio 19.6 (6-22) Glucose 125 H (70-100) mg/dL Calcium 9.6 (8.4-10.2) mg/dL Total Bilirubin 2.0 H (0.2-1.3) mg/dL AST 28 (14-36) IU/L ALT 24 (<35) IU/L Alkaline Phosphatase 63 (38-126) U/L Total Protein 7.3 (6.3-8.2) g/dL Albumin 4.6 (3.5-5.0) g/dL Globulin 2.7 (1.7-4.1) g/dL Albumin/Globulin Ratio 1.7 (1.0-2.8) Lipase 96 (23-300) U/L Point of care testing: Point of Care Testing Test Results Negative Urine Dip Bedside Urine Glucose Negative Bedside Urine Bilirubin - Negative Bedside Urine Ketone ++ 40 Urine Specific [place] 1.000 Bedside Urine Occult Blood - Negative Bedside Urine pH 5.5 Bedside Urine Protein - Negative Bedside Urine Urobilinogen - Negative Bedside Urine Nitrite - Negative Bedside Urine Leukocytes - Negative Esterase Imaging Data CT scan - abdomen/pelvis: Radiologist's Impression: PROCEDURE: CT ABDOMEN PELVIS W CON INDICATIONS: diffuse abd pain / n/v TECHNIQUE: After the administration of intravenous contrast, axial sections acquired from the lung bases to the pubic symphysis. Coronal and sagittal reformats were performed. For radiation dose reduction, the following was used: automated exposure control, adjustment of mA and/or kV according to patient size. COMPARISON: [facility], CT, CT ABDOMEN PELVIS W CON, 04/26/2024, 19:51. [facility], CT, CT ABDOMEN PELVIS W CON, 03/31/2024, 10:02. FINDINGS: Image quality: Diagnostic. Lower Chest: No significant findings. ABDOMEN: Liver: No solid mass. Diffuse fatty infiltration of the liver. Gallbladder: Surgically absent. Biliary ducts: No biliary dilation. Pancreas: No ductal dilation. Spleen: Size is within normal limits. Stable splenic cyst. Adrenal Glands: No adrenal nodules. Kidneys and Ureters: No hydronephrosis. No solid mass. No complex renal cystic lesion which requires follow up. Stomach and Bowel: Gastric sleeve postsurgical changes. Normal colonic caliber, without significant wall thickening. Scattered colonic diverticuli without evidence of diverticulitis. Appendix is surgically absent. Peritoneum: No abnormal intraperitoneal fluid. No free air. Ventral Wall: No significant ventral hernia. Abdominal Nodes: No retroperitoneal or mesenteric adenopathy by size criteria. Vessels: Aorta and inferior vena cava are normal in size. PELVIS: Pelvic Organs: Uterus is absent. Bladder: No bladder wall thickening, accounting for underdistention. Pelvic Nodes: No enlarged lymph nodes. Miscellaneous: No inguinal hernias are seen. Bones: No aggressive osseous abnormality. Spine degenerative disc disease and facet arthropathy. IMPRESSION: No acute disease process. ECG Data Attestation: I personally reviewed and interpreted this ECG as follows: Interpretation: EKG interpreted ED physician sinuses 78 beats per minute QTC 442, normal axis, nonspecific ST changes, no STEMI MDM Narrative Medical decision making narrative: Patient is a 48-year-old female with history of migraine abdominal pain with history of ex lap presents for flare-up of her abdominal pain. Does endorse nausea and vomiting. Lab work does show leukocytosis of 11.4, however most likely elevated secondary to nausea vomiting. CT scan without any acute findings. Remaining lab work was unremarkable, CT scan without any acute findings. 0825: Patient was re-evaluated, stating that she is still having some abdominal pain, slight improvement to her nausea, therefore will add additional analgesics, 1 of Dilaudid 0920: Patient was re-evaluated, stating she has complete resolution of her symptoms, informed her we are still awaiting a UA, she understands and agrees with provided this was soon as possible. 0945: Patient re-evaluated still stating complete resolution of her symptoms urinalysis without any signs of infection, patient states that she does have an appointment with GI specialist at [facility], also states that she has another appointment with her PCP, strict return precautions given safe for discharge home with outpatient follow up Discharge Plan Departure Prescriptions: No Action sumatriptan succinate 50 mg tablet 50 mg PO Q2-4H PRN (Reason: migraine headache) Qty: 9 0RF Rx Instructions: do not exceed 4 doses per 24 hrs alprazolam 0.5 mg tablet 0.5 mg PO BID PRN (Reason: Anxiety) topiramate 50 mg tablet 50 mg PO BID Qty: 60 0RF sumatriptan succinate 50 mg tablet 50 mg PO Q2-4H PRN (Reason: migraine) ondansetron HCl 4 mg tablet 4 mg PO Q8H PRN (Reason: nausea/vomiting) phentermine 37.5 mg tablet 37.5 mg PO QAM promethazine 50 mg suppository 50 mg WV Q6H PRN (Reason: nausea and vomiting) Qty: 12 0RF Referrals: Crow Burgos MD [Primary Care Provider] -
--- NOTE | 2024-06-10 07:14 | DI.CT.S_ITS ---
PROCEDURE: CT ABDOMEN PELVIS W CON INDICATIONS: diffuse abd pain / n/v TECHNIQUE: After the administration of intravenous contrast, axial sections acquired from the lung bases to the pubic symphysis. Coronal and sagittal reformats were performed. For radiation dose reduction, the following was used: automated exposure control, adjustment of mA and/or kV according to patient size. COMPARISON: [facility], CT, CT ABDOMEN PELVIS W CON, 04/26/2024, 19:51. [facility], CT, CT ABDOMEN PELVIS W CON, 03/31/2024, 10:02. FINDINGS: Image quality: Diagnostic. Lower Chest: No significant findings. ABDOMEN: Liver: No solid mass. Diffuse fatty infiltration of the liver. Gallbladder: Surgically absent. Biliary ducts: No biliary dilation. Pancreas: No ductal dilation. Spleen: Size is within normal limits. Stable splenic cyst. Adrenal Glands: No adrenal nodules. Kidneys and Ureters: No hydronephrosis. No solid mass. No complex renal cystic lesion which requires follow up. Stomach and Bowel: Gastric sleeve postsurgical changes. Normal colonic caliber, without significant wall thickening. Scattered colonic diverticuli without evidence of diverticulitis. Appendix is surgically absent. Peritoneum: No abnormal intraperitoneal fluid. No free air. Ventral Wall: No significant ventral hernia. Abdominal Nodes: No retroperitoneal or mesenteric adenopathy by size criteria. Vessels: Aorta and inferior vena cava are normal in size. PELVIS: Pelvic Organs: Uterus is absent. Bladder: No bladder wall thickening, accounting for underdistention. Pelvic Nodes: No enlarged lymph nodes. Miscellaneous: No inguinal hernias are seen. Bones: No aggressive osseous abnormality. Spine degenerative disc disease and facet arthropathy. IMPRESSION: No acute disease process. Dictated by: Ailyn Aguilar MD, PhD on 06/10/2024 at 9:06 Approved by: Ailyn Aguilar MD, PhD on 06/10/2024 at 9:10
--- NOTE | 2024-06-10 07:26 | EKG_ITS ---
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
[2024-06-10] MEDS: SODIUM CHLORIDE 0.9% 1,000 ML 1000 ML IV (07:45)
[2024-06-10] MEDS: KETOROLAC 30 MG/ML VIAL IV (07:46)
[2024-06-10] MEDS: DROPERIDOL 5 MG/2 ML VIAL IV (07:46)
[2024-06-10 08:03] LABS: Add Manual Diff / Slide Review NO; Basophils Absolute Auto 0 /uL (0-100); Basophils Percent Auto 0.3 % (0-2); Eosinophils Absolute Auto 100 /uL (0-450); Eosinophils Percent Auto 0.9 % (2-4); Hematocrit 38.6 % (36-46); Hemoglobin 12.8 g/dL (12.0-16.0); Lymphocytes Absolute Auto 2300 /uL (1100-4500); Lymphocytes Percent Auto 20.2 % (25-40); Mean Corpuscular HGB Conc 33.2 % (30-36); Mean Corpuscular Hemoglobin 27.6 PG (26-34); Mean Corpuscular Volume 83.2 fL (80-100); Monocytes Absolute Auto 700 /uL (0-900); Monocytes Percent Auto 6.4 % (3-14); Neutrophils Absolute Auto 8200 /uL (1500-7000); Neutrophils Percent Auto 72.2 % (50-75); Platelet Count 348 X10^3/uL (150-400); Red Blood Cell Count 4.64 X10^6/uL (4.0-5.2); Red Cell Distribution Width 14.3 % (11.6-14.8); White Blood Cell Count 11.4 X10^3/uL (4.5-11.0)
[2024-06-10 08:14] LABS: Alanine Aminotransferase 24 IU/L (<35); Albumin 4.6 g/dL (3.5-5.0); Albumin Globulin Ratio 1.7 (1.0-2.8); Alkaline Phosphatase 63 U/L (38-126); Aspartate Aminotransferase 28 IU/L (14-36); BUN Creatinine Ratio 19.6 (6-22); Blood Urea Nitrogen 11 mg/dL (7-17); Calcium 9.6 mg/dL (8.4-10.2); Carbon Dioxide 22 mmol/L (22-32); Chloride 105 mmol/L (98-107); Estimated Glomerular Filt Rate > 60 mL/min (>60); Globulin 2.7 g/dL (1.7-4.1); Glucose 125 mg/dL (70-100); HEMOLYSIS 19 (0-50); Lipase 96 U/L (23-300); Potassium 3.4 mmol/L (3.4-5.1); Sodium 138 mmol/L (137-145); Total Protein 7.3 g/dL (6.3-8.2)
[2024-06-10] MEDS: HYDROMORPHONE 1 MG INJ IV (08:30)
== END 2024-06-10 09:54 | disposition home or self-care (01) ==
PROVIDERS: Emergency Provider Student in an Organized Health Care Education/Training Program; PCP Internal Medicine
DX: R10.9 Unspecified abdominal pain (principal); R07.9 Chest pain, unspecified; R11.2 Nausea with vomiting, unspecified
CPT/HCPCS: 36415; 74177; 80053; 81003; 81025; 83690; 85025; 93005; 96361; 96374; 96375; 99284; J1170; J1790; J1885; Q9967

== ENCOUNTER 2024-06-13 16:33 | Emergency (ER) | payer OTHER, SELFPAY ==
[2024-06-13] VITALS (7 sets, daily range): BP systolic 115–151; BP diastolic 67–89; PULSE 76–112; RESP 18; TEMP 36.6; O2SAT 93–99; BMI 27.6
[2024-06-13] MEDS: ONDANSETRON 4 MG/2 ML INJ IV (20:06)
[2024-06-13 20:21] LABS: Add Manual Diff / Slide Review NO; Basophils Absolute Auto 100 /uL (0-100); Basophils Percent Auto 0.6 % (0-2); Eosinophils Absolute Auto 100 /uL (0-450); Eosinophils Percent Auto 0.6 % (2-4); Hematocrit 42.5 % (36-46); Hemoglobin 14.2 g/dL (12.0-16.0); Lymphocytes Absolute Auto 4100 /uL (1100-4500); Lymphocytes Percent Auto 29.8 % (25-40); Mean Corpuscular HGB Conc 33.5 % (30-36); Mean Corpuscular Hemoglobin 27.7 PG (26-34); Mean Corpuscular Volume 82.7 fL (80-100); Monocytes Absolute Auto 1200 /uL (0-900); Monocytes Percent Auto 8.8 % (3-14); Neutrophils Absolute Auto 8200 /uL (1500-7000); Neutrophils Percent Auto 60.2 % (50-75); Platelet Count 407 X10^3/uL (150-400); Red Blood Cell Count 5.14 X10^6/uL (4.0-5.2); Red Cell Distribution Width 14.4 % (11.6-14.8); White Blood Cell Count 13.6 X10^3/uL (4.5-11.0)
[2024-06-13 20:34] LABS: Alanine Aminotransferase 28 IU/L (<35); Albumin Globulin Ratio 1.4 (1.0-2.8); Alkaline Phosphatase 58 U/L (38-126); Aspartate Aminotransferase 24 IU/L (14-36); BUN Creatinine Ratio 18.2 (6-22); Bilirubin Total 3.1 mg/dL (0.2-1.3); Blood Urea Nitrogen 16 mg/dL (7-17); Calcium 10.6 mg/dL (8.4-10.2); Carbon Dioxide 22 mmol/L (22-32); Chloride 101 mmol/L (98-107); Estimated Glomerular Filt Rate > 60 mL/min (>60); Globulin 3.6 g/dL (1.7-4.1); Glucose 109 mg/dL (70-100); HEMOLYSIS < 15 (0-50); Lipase 82 U/L (23-300); Potassium 3.6 mmol/L (3.4-5.1); Sodium 139 mmol/L (137-145); Total Protein 8.6 g/dL (6.3-8.2)
--- NOTE | 2024-06-13 21:20 | ED_ITS ---
HPI - Nausea/Vomiting/Diarrhea General Chief complaint: Nausea/Vomiting/Diarrhea Stated complaint: returning; vomiting blood, abd pain Time Seen by Provider: 06/13/24 18:18 Source: patient Mode of arrival: Family Vehicle History of Present Illness HPI Narrative: Patient is a 43-year-old female who has had recurrent episodes of abdominal pain. Has been diagnosed with ?gastric migraines? is currently in the process of being seen by both Neurology and also GI. She has been seen here in the emergency department and other places multiple times for the exact symptoms that she presents with today. Has had multiple radiologic studies. Multiple lab studies without a definitive diagnosis. She states she has had epigastric abdominal pain and vomiting for the past several days. She was seen here in the emergency department just a couple days ago where she was seen medications and her symptoms improve but then come back again approximately a day later. He was with the same symptoms that she was had in the past. No urinary symptoms. No change in bowel habits. No fevers. Related Data Home Medications Medication Instructions Recorded Confirmed alprazolam 0.5 mg tablet 0.5 mg PO BID PRN Anxiety 05/06/23 05/10/24 ondansetron HCl 4 mg tablet 4 mg PO Q8H PRN nausea/vomiting 05/10/24 05/10/24 phentermine 37.5 mg tablet 37.5 mg PO QAM 05/10/24 05/10/24 sumatriptan succinate 50 mg tablet 50 mg PO Q2-4H PRN migraine 05/10/24 05/10/24 Previous Rx's Medication Instructions Recorded topiramate 50 mg tablet 50 mg PO BID #60 tabs 04/02/24 sumatriptan succinate 50 mg tablet 50 mg PO Q2-4H PRN migraine 04/28/24 headache #9 tabs promethazine 50 mg rectal 50 mg NM Q6H PRN nausea and 05/15/24 suppository vomiting #12 ea Allergies Allergy/AdvReac Type Severity Reaction Status Date / Time gluten Allergy Celiac Verified 03/13/24 19:07 coconut AdvReac Intermediate Hives Verified 03/13/24 19:07 NSAIDS (Non-Steroidal AdvReac Mild Gastrointestinal Verified 03/13/24 19:07 Anti-Inflamma Upset benzonatate AdvReac Unknown Hives Verified 03/13/24 19:07 [From Ezekiel Dhaliwal] escitalopram [From Lexapro] AdvReac Unknown Hallucinati Verified 03/13/24 19:07 ng Review of Systems Review of Systems ROS Unobtainable: All systems reviewed & are unremarkable except as noted in HPI and below Patient History Medical History Left corneal abrasion Headache Polycystic ovary disease Celiac disease GERD with apnea Hypertension Bipolar disorder Surgical History Status post tubal ligation History of section H/O abdominoplasty H/O oophorectomy H/O gastric sleeve History of cholecystectomy History of appendectomy Social History marital status: household members: significant other and children lives independently: Yes occupational status: employed Smoking Status: Never smoker alcohol intake: current substance use type: marijuana Smoking Status: Never smoker alcohol intake frequency: holidays/special occasions only Substance Use Type: marijuana Exam Initial Vital Signs Initial Vital Signs: Vital Signs Temperature 97.9 F 06/13/24 16:52 Pulse Rate 112 H 06/13/24 16:52 Respiratory Rate 18 06/13/24 16:52 Blood Pressure 151/82 H 06/13/24 16:52 Pulse Oximetry 99 06/13/24 16:52 Oxygen Delivery Method Room Air 06/13/24 16:52 Const General: cooperative, comfortable and No ill appearing HENMT Head: normal to inspection and normocephalic Resp Effort & Inspection: normal respiratory effort Auscultation: clear to auscultation bilaterally Cardio Rate: regular rate Rhythm: regular rhythm GI Inspection: non-distended Palpation: soft and tender Skin General: no rashes or lesions noted Neuro General: patient alert, patient awake and moves all extremities Extrem General: capillary refill normal Course Orders Ordered: ED Orders 06/13/24 20:12 Complete Blood Count AUTO DIFF Stat Comprehensive Metabolic Panel Stat Lipase Stat 06/13/24 22:12 Ictotest Urine Stat Urine Culture Stat Urine Microscopic Stat Discontinued Medications Haloperidol (Haloperidol 5 Mg/Ml Vial) 2.5 mg IV NOW ONE Stop: 06/13/24 23:15 Last Admin: 06/13/24 23:21 Dose: 2.5 mg Documented By: Hydromorphone HCl (Hydromorphone 1 Mg Inj) 1 mg IV NOW ONE Stop: 06/13/24 21:23 Last Admin: 06/13/24 21:36 Dose: 1 mg Documented By: NICOLAS Ketorolac Tromethamine (Ketorolac 30 Mg/Ml Vial) 15 mg IV NOW ONE Stop: 06/13/24 21:23 Last Admin: 06/13/24 21:36 Dose: 15 mg Documented By: NICOLAS Ondansetron HCl (Ondansetron 4 Mg/2 Ml Inj) 4 mg IV NOW PRN PRN Reason: Nausea And Vomiting Last Admin: 06/13/24 20:06 Dose: 4 mg Documented By: MAN Ondansetron HCl (Ondansetron 4 Mg Odt) 4 mg PO NOW PRN PRN Reason: Nausea And Vomiting Vital Signs Vital signs: Vital Signs - 8 hr 06/13/24 21:06 06/13/24 21:06 06/13/24 21:30 Pulse Rate 97 H Respiratory Rate Blood Pressure 149/67 H 124/89 Pulse Oximetry 93 Oxygen Delivery Method 06/13/24 21:30 06/13/24 22:00 06/13/24 22:00 Pulse Rate 83 89 Respiratory Rate 18 Blood Pressure 128/87 Pulse Oximetry 99 95 Oxygen Delivery Method 06/13/24 22:08 06/13/24 22:08 06/13/24 22:30 Pulse Rate 108 H 96 H Respiratory Rate 18 Blood Pressure 115/84 Pulse Oximetry 98 95 Oxygen Delivery Method 06/13/24 23:30 06/14/24 00:00 06/14/24 00:30 Pulse Rate 76 58 L 68 Respiratory Rate 18 18 Blood Pressure Pulse Oximetry 95 94 96 Oxygen Delivery Method 06/14/24 00:52 Pulse Rate 85 Respiratory Rate 18 Blood Pressure 145/78 H Pulse Oximetry 98 Oxygen Delivery Method Room Air MDM - Nausea/Vomiting/Diarrhea Lab Data Attestation: I reviewed the patient's lab results. 06/13/24 20:12 06/13/24 20:12 Labs: Lab Results 06/13/24 06/13/24 Range/Units 20:12 22:12 WBC 13.6 H (4.5-11.0) X10^3/uL RBC 5.14 (4.0-5.2) X10^6/uL Hgb 14.2 (12.0-16.0) g/dL Hct 42.5 (36-46) % MCV 82.7 (80-100) fL MCH 27.7 (26-34) PG MCHC 33.5 (30-36) % RDW 14.4 (11.6-14.8) % Plt Count 407 H (150-400) X10^3/uL Neut % (Auto) 60.2 (50-75) % Lymph % (Auto) 29.8 (25-40) % [place] % (Auto) 8.8 (3-14) % Eos % (Auto) 0.6 L (2-4) % Baso % (Auto) 0.6 (0-2) % Neut # (Auto) 8200 H (8059-0428) /uL Lymph # (Auto) 4100 (8807-5196) /uL [place] # (Auto) 1200 H (0-900) /uL Eos # (Auto) 100 (0-450) /uL Baso # (Auto) 100 (0-100) /uL Sodium 139 (137-145) mmol/L Potassium 3.6 (3.4-5.1) mmol/L Chloride 101 (98-107) mmol/L Carbon Dioxide 22 (22-32) mmol/L BUN 16 (7-17) mg/dL Creatinine 0.88 (0.52-1.04) mg/dL Estimated GFR > 60 (>60) mL/min BUN/Creatinine Ratio 18.2 (6-22) Glucose 109 H (70-100) mg/dL Calcium 10.6 H (8.4-10.2) mg/dL Total Bilirubin 3.1 H (0.2-1.3) mg/dL AST 24 (14-36) IU/L ALT 28 (<35) IU/L Alkaline Phosphatase 58 (38-126) U/L Total Protein 8.6 H (6.3-8.2) g/dL Albumin 5.0 (3.5-5.0) g/dL Globulin 3.6 (1.7-4.1) g/dL Albumin/Globulin Ratio 1.4 (1.0-2.8) Lipase 82 (23-300) U/L Ur Bilirubin Confirm Negative (Negative) Urine RBC 0-1/hpf (0-5/HPF) Urine WBC 5-10/hpf H (0-5/HPF) Ur Squamous Epith Cells 0-1 /hpf (0-5/HPF) Urine Bacteria Moderate (10-30) H (None) Ur Culture Indicated? Specimen cultured Vol Urine Centrifuged 10ml (spun) Urine Dip Bedside Urine Glucose Negative Bedside Urine Bilirubin + 1 Bedside Urine Ketone +/- 5 Urine Specific [place] 1.03 Bedside Urine Occult Blood - Negative Bedside Urine pH 6 Bedside Urine Protein + 30 Bedside Urine Urobilinogen - Negative Bedside Urine Nitrite - Negative Bedside Urine Leukocytes +/- 15 Esterase MDM Narrative Medical decision making narrative: Patient presents with same symptoms that she was had in the past. Has had multiple CT scans and workup without definitive diagnosis. After medications here in the emergency department she reports improvement of symptoms. It appears that the Haldol seems to have worked the best. I do feel that we can hold on radiologic studies for now. Recommended that she follow-up with her primary doctor and also her GI specialist. She was given return precautions. Discharge Plan Departure Patient Disposition: Home Clinical Impression: Chronic abdominal pain Instructions: DI for Abdominal Pain-Adult Activity Restrictions/Additional Instructions: Continue to take all of your medications as directed. Keep all of your scheduled medical appointments. Return to the emergency department for new or worsening symptoms. Prescriptions: No Action sumatriptan succinate 50 mg tablet 50 mg PO Q2-4H PRN (Reason: migraine headache) Qty: 9 0RF Rx Instructions: do not exceed 4 doses per 24 hrs alprazolam 0.5 mg tablet 0.5 mg PO BID PRN (Reason: Anxiety) topiramate 50 mg tablet 50 mg PO BID Qty: 60 0RF sumatriptan succinate 50 mg tablet 50 mg PO Q2-4H PRN (Reason: migraine) ondansetron HCl 4 mg tablet 4 mg PO Q8H PRN (Reason: nausea/vomiting) phentermine 37.5 mg tablet 37.5 mg PO QAM promethazine 50 mg suppository 50 mg NM Q6H PRN (Reason: nausea and vomiting) Qty: 12 0RF Referrals: Crow Burgos MD [Primary Care Provider] - Stand Alone Forms: Patient Portal/API
[2024-06-13] MEDS: KETOROLAC 30 MG/ML VIAL 15 MG IV (21:36)
[2024-06-13] MEDS: HYDROMORPHONE 1 MG INJ IV (21:36)
[2024-06-13 22:29] LABS: Urine Volume 10mL (spun)
[2024-06-13 22:30] LABS: Bacteria Urine Moderate (10-30); Culture Indicated Urine Specimen Cultured; Ictotest Urine Negative (Negative); RBC Urine 0-1/HPF (0-5/HPF); Squamous Epithelial Cell Urine 0-1 /HPF (0-5/HPF); WBC Urine 5-10/HPF (0-5/HPF)
[2024-06-13] MEDS: HALOPERIDOL 5 MG/ML VIAL 2.5 MG IV (23:21)
[2024-06-14] VITALS: PULSE 58; O2SAT 94
--- NOTE | 2024-06-14 00:11 | PC.NURSE ---
Pt reports feeling mildly better. I feel tired and I'm still a little gaggy.
[2024-06-14 00:30] VITALS: PULSE 68; RESP 18; O2SAT 96
[2024-06-14 00:52] VITALS: BP 145/78; PULSE 85; RESP 18; O2SAT 98
== END 2024-06-14 00:58 | disposition home or self-care (01) ==
PROVIDERS: Emergency Medicine; Emergency Provider Emergency Medicine; PCP Internal Medicine
DX: R10.13 Epigastric pain (principal)
CPT/HCPCS: 36415; 80053; 81003; 81015; 83690; 85025; 87077; 87086; 87186; 96374; 96375; 99283; 99284; J1171; J1630; J1885; J2405

== ENCOUNTER 2024-06-15 10:20 | Emergency (ER) | payer OTHER, SELFPAY ==
[2024-06-15] VITALS (11 sets, daily range): BP systolic 169–178; BP diastolic 92–128; PULSE 75–123; RESP 13–26; O2SAT 93–98; BMI 27.4
--- NOTE | 2024-06-15 10:54 | EKG_ITS ---
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
[2024-06-15 11:15] LABS: Add Manual Diff / Slide Review NO; Basophils Absolute Auto 100 /uL (0-100); Basophils Percent Auto 0.5 % (0-2); Eosinophils Absolute Auto 100 /uL (0-450); Eosinophils Percent Auto 0.6 % (2-4); Hematocrit 42.8 % (36-46); Hemoglobin 14.3 g/dL (12.0-16.0); Lymphocytes Absolute Auto 2400 /uL (1100-4500); Lymphocytes Percent Auto 19.9 % (25-40); Mean Corpuscular HGB Conc 33.5 % (30-36); Mean Corpuscular Hemoglobin 27.8 PG (26-34); Mean Corpuscular Volume 83.1 fL (80-100); Monocytes Absolute Auto 1100 /uL (0-900); Monocytes Percent Auto 9.1 % (3-14); Neutrophils Absolute Auto 8500 /uL (1500-7000); Neutrophils Percent Auto 69.9 % (50-75); Platelet Count 402 X10^3/uL (150-400); Red Blood Cell Count 5.15 X10^6/uL (4.0-5.2); Red Cell Distribution Width 14.6 % (11.6-14.8); White Blood Cell Count 12.2 X10^3/uL (4.5-11.0)
--- NOTE | 2024-06-15 11:21 | ED.ABDPAIN ---
HPI - Abdominal Pain General Chief Complaint: Abdominal Pain Stated Complaint: Still not getting better Time Seen by Provider: 06/15/24 10:51 Related Data Home Medications Medication Instructions Recorded Confirmed alprazolam 0.5 mg tablet 0.5 mg PO BID PRN Anxiety 05/06/23 05/10/24 ondansetron HCl 4 mg tablet 4 mg PO Q8H PRN nausea/vomiting 05/10/24 05/10/24 phentermine 37.5 mg tablet 37.5 mg PO QAM 05/10/24 05/10/24 sumatriptan succinate 50 mg tablet 50 mg PO Q2-4H PRN migraine 05/10/24 05/10/24 Previous Rx's Medication Instructions Recorded topiramate 50 mg tablet 50 mg PO BID #60 tabs 04/02/24 sumatriptan succinate 50 mg tablet 50 mg PO Q2-4H PRN migraine 04/28/24 headache #9 tabs promethazine 50 mg rectal 50 mg SC Q6H PRN nausea and 05/15/24 suppository vomiting #12 ea ciprofloxacin HCl 500 mg tablet 500 mg PO BID #20 tabs 06/15/24 (Cipro) Allergies Allergy/AdvReac Type Severity Reaction Status Date / Time gluten Allergy Celiac Verified 03/13/24 19:07 coconut AdvReac Intermediate Hives Verified 03/13/24 19:07 NSAIDS (Non-Steroidal AdvReac Mild Gastrointestinal Verified 03/13/24 19:07 Anti-Inflamma Upset benzonatate AdvReac Unknown Hives Verified 03/13/24 19:07 [From Tessalon Perles] escitalopram [From Lexapro] AdvReac Unknown Hallucinati Verified 03/13/24 19:07 ng Review of Systems Review of Systems Narrative: see HPI Patient History Medical History Left corneal abrasion Headache Polycystic ovary disease Celiac disease GERD with apnea Hypertension Bipolar disorder Surgical History Status post tubal ligation History of section H/O abdominoplasty H/O oophorectomy H/O gastric sleeve History of cholecystectomy History of appendectomy Social History marital status: household members: significant other and children lives independently: Yes occupational status: employed Smoking Status: Never smoker alcohol intake: current substance use type: marijuana Smoking Status: Never smoker alcohol intake frequency: holidays/special occasions only Substance Use Type: marijuana Exam Narrative Exam Narrative: GENERAL: Well-developed patient, in mild distress. Intermittent retching. HEAD: Atraumatic. Normocephalic. EYES: Pupils equal round and reactive. Extraocular motions intact. No scleral icterus. No injection or drainage. ENT: Nose without bleeding, purulent drainage. Throat without erythema, tonsillar hypertrophy or exudate. Airway patent. NECK: Trachea midline. Non tender CARDIOVASCULAR: Regular rate and rhythm without murmurs, gallops, or rubs. RESPIRATORY: Clear to auscultation. Breath sounds equal bilaterally. No wheezes, rales, or rhonchi. GASTROINTESTINAL: Abdomen soft, non-tender, nondistended. EXTREMITIES: No edema or joint tenderness. BACK: Nontender without deformity or crepitance. No flank tenderness. NEURO: AOx3. Motor functions grossly nonfocal SKIN: No rash or erythema of visible areas Initial Vital Signs Initial Vital Signs: Vital Signs Pulse Oximetry 96 06/15/24 10:44 Course Orders Ordered: ED Orders 06/15/24 11:05 CBC Auto Diff [Complete Blood Count AUTO DIFF] Stat CMP [Comprehensive Metabolic Panel] Stat Lipase Stat Discontinued Medications Diphenhydramine HCl (Diphenhydramine 50 Mg/Ml Vial) 25 mg IV NOW ONE Stop: 06/15/24 11:58 Last Admin: 06/15/24 12:16 Dose: 25 mg Documented By: NICOLAS Haloperidol (Haloperidol 5 Mg/Ml Vial) 5 mg IV NOW ONE Stop: 06/15/24 11:57 Last Admin: 06/15/24 12:16 Dose: 5 mg Documented By: NICOLAS Hydromorphone HCl (Hydromorphone 1 Mg Inj) 1 mg IV NOW ONE Stop: 06/15/24 11:41 Last Admin: 06/15/24 11:54 Dose: 1 mg Documented By: NICOLAS POTASSIUM CHLORIDE IN WATER (Potassium Cl 10 Meq/100 Ml Lindsay) 10 meq in 100 mls @ 100 mls/hr IV Q1H BENITO Stop: 06/15/24 14:14 Last Infusion: 06/15/24 14:33 Dose: Infused Documented By: Admin: 06/15/24 13:23 Dose: 100 mls/hr Documented By: Infusion: 06/15/24 13:23 Dose: Infused Documented By: Admin: 06/15/24 12:16 Dose: 100 mls/hr Documented By: NICOLAS Potassium Chloride (Potassium Chloride 20 Meq/15 Ml Udc) 40 meq PO NOW ONE Stop: 06/15/24 14:09 Last Admin: 06/15/24 14:32 Dose: 40 meq Documented By: NICOLAS Vital Signs Vital signs: Vital Signs - 8 hr 06/15/24 12:30 06/15/24 13:00 06/15/24 13:30 Pulse Rate 84 77 78 Respiratory Rate 16 13 14 Blood Pressure Pulse Oximetry 98 93 96 Oxygen Delivery Method 06/15/24 14:00 06/15/24 14:30 06/15/24 14:52 Pulse Rate 75 91 H 107 H Respiratory Rate 13 14 Blood Pressure Pulse Oximetry 96 97 98 Oxygen Delivery Method Room Air 06/15/24 14:52 Pulse Rate Respiratory Rate Blood Pressure 175/92 H Pulse Oximetry Oxygen Delivery Method MDM - Abdominal Pain Lab Data Lab results narrative: Low potassium 2.9 noted, serum CO2 15 noted low, anion gap 18. Glucose 182. White blood cell count 50556, hemoglobin 14, platelets [id number]. Urinalysis pending. 06/15/24 11:05 06/15/24 11:05 Labs: Lab Results 06/15/24 Range/Units 11:05 WBC 12.2 H (4.5-11.0) X10^3/uL RBC 5.15 (4.0-5.2) X10^6/uL Hgb 14.3 (12.0-16.0) g/dL Hct 42.8 (36-46) % MCV 83.1 (80-100) fL MCH 27.8 (26-34) PG MCHC 33.5 (30-36) % RDW 14.6 (11.6-14.8) % Plt Count 402 H (150-400) X10^3/uL Neut % (Auto) 69.9 (50-75) % Lymph % (Auto) 19.9 L (25-40) % [place] % (Auto) 9.1 (3-14) % Eos % (Auto) 0.6 L (2-4) % Baso % (Auto) 0.5 (0-2) % Neut # (Auto) 8500 H (9579-2704) /uL Lymph # (Auto) 2400 (8698-5488) /uL [place] # (Auto) 1100 H (0-900) /uL Eos # (Auto) 100 (0-450) /uL Baso # (Auto) 100 (0-100) /uL Sodium 138 (137-145) mmol/L Potassium 2.9 L (3.4-5.1) mmol/L Chloride 105 (98-107) mmol/L Carbon Dioxide 15 L (22-32) mmol/L BUN 18 H (7-17) mg/dL Creatinine 1.22 H (0.52-1.04) mg/dL Estimated GFR 57 L (>60) mL/min BUN/Creatinine Ratio 14.8 (6-22) Glucose 182 H (70-100) mg/dL Calcium 10.7 H (8.4-10.2) mg/dL Total Bilirubin 3.3 H (0.2-1.3) mg/dL AST 32 (14-36) IU/L ALT 32 (<35) IU/L Alkaline Phosphatase 70 (38-126) U/L Total Protein 8.3 H (6.3-8.2) g/dL Albumin 5.1 H (3.5-5.0) g/dL Globulin 3.2 (1.7-4.1) g/dL Albumin/Globulin Ratio 1.6 (1.0-2.8) Lipase 150 D (23-300) U/L ECG Data Interpretation: Sinus tachycardia with rate 101, no obvious ST segment elevation or depression changes. T-wave inversion lead 3 noted. SC 160, QRS 84, QTC 440. MDM Narrative Medical decision making narrative: 43-year-old female with chronic abdominal pain, awaiting GI consultation, regular and frequent visits to this emergency department, most recently 2 days ago, with negative laboratory serum studies, treated with Haldol and Dilaudid and Toradol, discharged home. Still having pain. Still having nausea or vomiting. No black or red stools. Afebrile, sirs screen negative. Labs pending from today. Lab review, 06/13/2024 urinalysis looks suspicious for some bacteria, microbiology report 06/13/2024, urine culture shows >100,000 colonies E coli. Sensitive to cefepime, ciprofloxacin, ertapenem, gentamicin, imipenem, levofloxacin, nitrofurantoin, trimethoprim sulfa, piperacillin tazobactam. Resistant to cefazolin, Augmentin, Unasyn, ampicillin, ceftriaxone. Patient reports she is able to take ciprofloxacin in the past. IV ciprofloxacin for now pending control of her nausea and vomiting. Potassium 2.9 low, IV potassium. EKG showed no prolonged QTC after recent Haldol dose. IV Haldol. IV Dilaudid. Nausea improved, able to take PO potassium as well. Rx for Cipro course sent to pharmacy. Home with , follow-up with GI specialist for chronic abdominal pain as planned. Improved, stable, home with Return precautions discussed Discharge Plan Departure Patient Disposition: Home Clinical Impression: Acute hypokalemia, Nausea & vomiting, Urinary tract infection, Chronic abdominal pain Activity Restrictions/Additional Instructions: Nausea and vomiting, chronic abdominal pain awaiting Gastroenterology consultation, recent visit here in the emergency department 06/13/24, urine from that visit grew out a bacteria called E coli, it is sensitive to antibiotic ciprofloxacin which you can take. IV ciprofloxacin given, prescription for further course of antibiotic with oral ciprofloxacin. IV fluids given, IV haloperidol and IV Dilaudid given, symptoms improved, you were able to take IV and oral potassium for low potassium levels. Take antibiotics as prescribed. Follow up with your GI specialist as planned. Return to this/nearest emergency department for any change worsening symptoms or any concerns prior Prescriptions: New ciprofloxacin HCl [Cipro] 500 mg tablet 500 mg PO BID Qty: 20 0RF No Action sumatriptan succinate 50 mg tablet 50 mg PO Q2-4H PRN (Reason: migraine headache) Qty: 9 0RF Rx Instructions: do not exceed 4 doses per 24 hrs alprazolam 0.5 mg tablet 0.5 mg PO BID PRN (Reason: Anxiety) topiramate 50 mg tablet 50 mg PO BID Qty: 60 0RF sumatriptan succinate 50 mg tablet 50 mg PO Q2-4H PRN (Reason: migraine) ondansetron HCl 4 mg tablet 4 mg PO Q8H PRN (Reason: nausea/vomiting) phentermine 37.5 mg tablet 37.5 mg PO QAM promethazine 50 mg suppository 50 mg SC Q6H PRN (Reason: nausea and vomiting) Qty: 12 0RF Referrals: Crow Burgos MD [Primary Care Provider] - Stand Alone Forms: Patient Portal/API
[2024-06-15 11:40] LABS: Alanine Aminotransferase 32 IU/L (<35); Albumin 5.1 g/dL (3.5-5.0); Albumin Globulin Ratio 1.6 (1.0-2.8); Alkaline Phosphatase 70 U/L (38-126); Aspartate Aminotransferase 32 IU/L (14-36); BUN Creatinine Ratio 14.8 (6-22); Bilirubin Total 3.3 mg/dL (0.2-1.3); Blood Urea Nitrogen 18 mg/dL (7-17); Calcium 10.7 mg/dL (8.4-10.2); Carbon Dioxide 15 mmol/L (22-32); Chloride 105 mmol/L (98-107); Estimated Glomerular Filt Rate 57 mL/min (>60); Globulin 3.2 g/dL (1.7-4.1); Glucose 182 mg/dL (70-100); HEMOLYSIS < 15 (0-50); Lipase 150 U/L (23-300); Potassium 2.9 mmol/L (3.4-5.1); Sodium 138 mmol/L (137-145); Total Protein 8.3 g/dL (6.3-8.2)
[2024-06-15] MEDS: HYDROMORPHONE 1 MG INJ IV (11:54)
[2024-06-15] MEDS: HALOPERIDOL 5 MG/ML VIAL IV (12:16)
[2024-06-15] MEDS: diphenhydrAMINE 50 MG/ML VIAL 25 MG IV (12:16)
[2024-06-15] MEDS: POTASSIUM CHLORIDE IN WATER 10 MEQ/100 ML PIGGYBACK 100 MEQ IV ×2 (12:16→13:23)
--- NOTE | 2024-06-15 12:39 | PC.NURSE ---
Patient made comments to this RN that she can't do this anymore and apologizing to her partner that she cant go on living like this anymore. This RN asked her if she wants to talk to our social welfare research worker or if shes interested in any resources regarding her SI and she refused saying that she already has a psychiatrist
[2024-06-15] MEDS: POTASSIUM CHLORIDE 20 MEQ/15 ML UDC 40 MEQ PO (14:32)
== END 2024-06-15 14:57 | disposition home or self-care (01) ==
PROVIDERS: Emergency Provider Emergency Medicine; PCP Internal Medicine
DX: E87.6 Hypokalemia (principal); N39.0 Urinary tract infection, site not specified; R11.2 Nausea with vomiting, unspecified; G89.29 Other chronic pain; R10.9 Unspecified abdominal pain; B96.20 Unspecified Escherichia coli [E. coli] as the cause of diseases classified elsewhere
CPT/HCPCS: 80053; 83690; 85025; 93005; 93010; 96365; 96366; 96375; 99284; J1171; J1200; J1630

== ENCOUNTER 2024-07-03 12:35 | Emergency (ER) | payer OTHER, SELFPAY ==
[2024-07-03] VITALS (13 sets, daily range): BP systolic 118–189; BP diastolic 68–96; PULSE 54–96; RESP 12–32; TEMP 36.4; O2SAT 95–100; BMI 29.1
[2024-07-03] MEDS: DROPERIDOL 5 MG/2 ML VIAL 1.25 MG IV (12:50)
[2024-07-03] MEDS: SODIUM CHLORIDE 0.9% 1,000 ML 1000 ML IV ×2 (12:50→14:33)
[2024-07-03] MEDS: HYDROMORPHONE 1 MG INJ IV (12:51)
[2024-07-03 12:52] LABS: Add Manual Diff / Slide Review NO; Basophils Absolute Auto 0 /uL (0-100); Basophils Percent Auto 0.5 % (0-2); Eosinophils Absolute Auto 0 /uL (0-450); Eosinophils Percent Auto 0.3 % (2-4); Hemoglobin 12.4 g/dL (12.0-16.0); Lymphocytes Absolute Auto 1900 /uL (1100-4500); Lymphocytes Percent Auto 20.3 % (25-40); Mean Corpuscular HGB Conc 32.5 % (30-36); Mean Corpuscular Hemoglobin 27.7 PG (26-34); Mean Corpuscular Volume 85.1 fL (80-100); Monocytes Absolute Auto 500 /uL (0-900); Monocytes Percent Auto 5.1 % (3-14); Neutrophils Absolute Auto 7100 /uL (1500-7000); Neutrophils Percent Auto 73.8 % (50-75); Platelet Count 362 X10^3/uL (150-400); Red Blood Cell Count 4.46 X10^6/uL (4.0-5.2); Red Cell Distribution Width 15.2 % (11.6-14.8); White Blood Cell Count 9.6 X10^3/uL (4.5-11.0)
[2024-07-03 13:04] LABS: Alanine Aminotransferase 34 IU/L (<35); Albumin 4.8 g/dL (3.5-5.0); Albumin Globulin Ratio 1.5 (1.0-2.8); Alkaline Phosphatase 61 U/L (38-126); Aspartate Aminotransferase 29 IU/L (14-36); BUN Creatinine Ratio 23.2 (6-22); Bilirubin Total 2.2 mg/dL (0.2-1.3); Blood Urea Nitrogen 13 mg/dL (7-17); Calcium 10.1 mg/dL (8.4-10.2); Carbon Dioxide 20 mmol/L (22-32); Chloride 107 mmol/L (98-107); Estimated Glomerular Filt Rate > 60 mL/min (>60); Globulin 3.1 g/dL (1.7-4.1); Glucose 129 mg/dL (70-100); Potassium 3.8 mmol/L (3.4-5.1); Sodium 139 mmol/L (137-145); Total Protein 7.9 g/dL (6.3-8.2)
[2024-07-03 13:06] LABS: HEMOLYSIS 51 (0-50)
--- NOTE | 2024-07-03 13:25 | PC.NURSE ---
At triage provider came to bedside to assess, ordered meds, see MAR. Patient states that they feel some improvement with her nausea and pain after medication, the pain and nausea are still there
--- NOTE | 2024-07-03 14:23 | ED_ITS ---
HPI - Nausea/Vomiting/Diarrhea General Chief complaint: Nausea/Vomiting/Diarrhea Stated complaint: abd px, migraine, unable to control 3 days Time Seen by Provider: 07/03/24 12:40 Source: patient Mode of arrival: Ambulatory History of Present Illness HPI Narrative: 43-year-old woman with recurrent episodes upper abdominal pain severe nausea and vomiting, tentative diagnosis at this point is gastric migraine she is being seen by Neurology and GI. She does have a history of gastric bypass surgery. March of 2023 she has been seen in our emergency department with surgical consultation, OB consultation, multiple imaging studies, hospitalizations for rehydration March 13, May 05 with admission discharged May 09. October 14, October 21, December 09, January 19, January 25 of March 08 of March 13 with hospitalization and discharge March 15, March 31 with hospitalization and discharged March 27April 26 with admission through April 28. May 07May 09 with the admission and discharge May 10, May 15, May 20, June 10, June 13, June 15, was admitted at [facility] for 48 hours reportedly with kidney infection, returns today with similar complaints Today she states symptoms have been ongoing for more than 48 hours, she is used all of her home medications including Imitrex, promethazine, continues on topiramate and continues to have vomiting and abdominal pain. No fevers or new symptoms Related Data Home Medications Medication Instructions Recorded Confirmed alprazolam 0.5 mg tablet 0.5 mg PO BID PRN Anxiety 05/06/23 05/10/24 ondansetron HCl 4 mg tablet 4 mg PO Q8H PRN nausea/vomiting 05/10/24 05/10/24 phentermine 37.5 mg tablet 37.5 mg PO QAM 05/10/24 05/10/24 sumatriptan succinate 50 mg tablet 50 mg PO Q2-4H PRN migraine 05/10/24 05/10/24 Previous Rx's Medication Instructions Recorded topiramate 50 mg tablet 50 mg PO BID #60 tabs 04/02/24 sumatriptan succinate 50 mg tablet 50 mg PO Q2-4H PRN migraine 04/28/24 headache #9 tabs promethazine 50 mg rectal 50 mg PA Q6H PRN nausea and 05/15/24 suppository vomiting #12 ea ciprofloxacin HCl 500 mg tablet 500 mg PO BID #20 tabs 06/15/24 (Cipro) metoclopramide HCl 10 mg tablet 10 mg PO QAC #120 tabs 07/03/24 topiramate 50 mg tablet 50 mg PO BID #60 tabs 07/03/24 Allergies Allergy/AdvReac Type Severity Reaction Status Date / Time gluten Allergy Celiac Verified 07/03/24 12:42 coconut AdvReac Intermediate Hives Verified 07/03/24 12:42 NSAIDS (Non-Steroidal AdvReac Mild Gastrointestinal Verified 07/03/24 12:42 Anti-Inflamma Upset benzonatate AdvReac Unknown Hives Verified 07/03/24 12:42 [From Tessalon Perles] escitalopram [From Lexapro] AdvReac Unknown Hallucinati Verified 07/03/24 12:42 ng Review of Systems Review of Systems Narrative: Pertinent positive and negative findings as per HPI Patient History Medical History Left corneal abrasion Headache Polycystic ovary disease Celiac disease GERD with apnea Hypertension Bipolar disorder Surgical History Status post tubal ligation History of section H/O abdominoplasty H/O oophorectomy H/O gastric sleeve History of cholecystectomy History of appendectomy Social History marital status: household members: significant other and children lives independently: Yes occupational status: employed Smoking Status: Never smoker alcohol intake: current substance use type: marijuana Smoking Status: Never smoker alcohol intake frequency: holidays/special occasions only Substance Use Type: does not use Exam Initial Vital Signs Initial Vital Signs: Vital Signs Temperature 97.6 F 07/03/24 12:40 Pulse Rate 96 H 07/03/24 12:40 Respiratory Rate 28 H 07/03/24 12:40 Blood Pressure 189/90 H 07/03/24 12:40 Pulse Oximetry 98 07/03/24 12:40 Oxygen Delivery Method Room Air 07/03/24 12:40 General: Chronically ill-appearing, significant abdominal pain, cooperative with the exam, pale, diaphoretic Respiratory: Lungs are clear to auscultation, no wheezing no rales no rhonchi. Full and symmetrical air movement Cardiac: Regular rate and rhythm no murmurs no bruits Abdomen: Soft, significant tenderness in the upper abdomen without rebound or guarding. No flank pain Skin: Pale, diaphoretic secondary to abdominal pain Neurologic: Grossly neurologically intact with no obvious asymmetries or abnormalities Extremities: No trauma, well perfused Psych: Cooperative, appropriate insight and affect Course Orders Ordered: ED Orders 07/03/24 12:45 Complete Blood Count AUTO DIFF Stat Comprehensive Metabolic Panel Stat 07/03/24 14:12 Ictotest Urine Stat Urinalysis and Microscopic Stat Urine Culture Stat Hydromorphone HCl (Hydromorphone 0.5 Mg Inj) 0.5 mg IV Q15MIN PRN PRN Reason: Pain, Last Admin: 07/03/24 14:31 Dose: 0.5 mg Documented By: NICOLAS Discontinued Medications Diphenhydramine HCl (Diphenhydramine 50 Mg/Ml Vial) 50 mg IV NOW ONE Stop: 07/03/24 14:22 Last Admin: 07/03/24 14:31 Dose: 50 mg Documented By: NICOLAS Droperidol (Droperidol 5 Mg/2 Ml Vial) 1.25 mg IV NOW ONE Stop: 07/03/24 12:45 Last Admin: 07/03/24 12:50 Dose: 1.25 mg Documented By: NICOLAS Droperidol (Droperidol 5 Mg/2 Ml Vial) 0.625 mg IV NOW ONE Stop: 07/03/24 14:21 Last Admin: 07/03/24 14:32 Dose: 0.625 mg Documented By: NICOLAS Hydromorphone HCl (Hydromorphone 1 Mg Inj) 1 mg IV NOW ONE Stop: 07/03/24 12:45 Last Admin: 07/03/24 12:51 Dose: 1 mg Documented By: NICOLAS Sodium Chloride (Normal Saline 0.9%) 1,000 mls @ 1,000 mls/hr IV BOLUS ONE Stop: 07/03/24 13:43 Last Infusion: 07/03/24 14:20 Dose: Infused Documented By: Admin: 07/03/24 12:50 Dose: 1,000 mls/hr Documented By: NICOLAS Sodium Chloride (Normal Saline 0.9%) 1,000 mls @ 1,000 mls/hr IV BOLUS ONE Stop: 07/03/24 15:19 Last Infusion: 07/03/24 15:38 Dose: Infused Documented By: Admin: 07/03/24 14:33 Dose: 1,000 mls/hr Documented By: NICOLAS Vital Signs Vital signs: Vital Signs - 8 hr 07/03/24 12:40 07/03/24 12:40 07/03/24 13:00 Temperature 97.6 F Pulse Rate 96 H 85 67 Respiratory Rate 28 H 23 Blood Pressure 189/90 H Pulse Oximetry 98 100 99 Oxygen Delivery Method Room Air 07/03/24 13:01 07/03/24 13:01 07/03/24 13:30 Temperature Pulse Rate 63 84 Respiratory Rate 24 32 H Blood Pressure 169/79 H Pulse Oximetry 100 97 Oxygen Delivery Method Room Air 07/03/24 13:31 07/03/24 13:31 07/03/24 14:00 Temperature Pulse Rate 83 62 Respiratory Rate Blood Pressure 149/96 H Pulse Oximetry 99 98 Oxygen Delivery Method 07/03/24 14:00 07/03/24 14:30 07/03/24 14:30 Temperature Pulse Rate 84 Respiratory Rate 18 Blood Pressure 118/68 136/90 Pulse Oximetry 100 Oxygen Delivery Method 07/03/24 15:00 07/03/24 15:00 07/03/24 15:30 Temperature Pulse Rate 58 L 57 L Respiratory Rate 13 12 Blood Pressure 127/76 Pulse Oximetry 100 97 Oxygen Delivery Method Room Air 07/03/24 15:30 07/03/24 16:00 07/03/24 16:01 Temperature Pulse Rate 55 L Respiratory Rate 13 Blood Pressure 121/69 136/73 Pulse Oximetry 100 Oxygen Delivery Method 07/03/24 16:01 Temperature Pulse Rate 56 L Respiratory Rate Blood Pressure Pulse Oximetry 95 Oxygen Delivery Method MDM - Nausea/Vomiting/Diarrhea Lab Data 07/03/24 12:45 07/03/24 12:45 Labs: Lab Results 07/03/24 07/03/24 Range/Units 12:45 14:12 WBC 9.6 (4.5-11.0) X10^3/uL RBC 4.46 (4.0-5.2) X10^6/uL Hgb 12.4 (12.0-16.0) g/dL Hct 38.0 (36-46) % MCV 85.1 (80-100) fL MCH 27.7 (26-34) PG MCHC 32.5 (30-36) % RDW 15.2 H (11.6-14.8) % Plt Count 362 (150-400) X10^3/uL Neut % (Auto) 73.8 (50-75) % Lymph % (Auto) 20.3 L (25-40) % [place] % (Auto) 5.1 (3-14) % Eos % (Auto) 0.3 L (2-4) % Baso % (Auto) 0.5 (0-2) % Neut # (Auto) 7100 H (7649-0675) /uL Lymph # (Auto) 1900 (8331-1014) /uL [place] # (Auto) 500 (0-900) /uL Eos # (Auto) 0 (0-450) /uL Baso # (Auto) 0 (0-100) /uL Sodium 139 (137-145) mmol/L Potassium 3.8 (3.4-5.1) mmol/L Chloride 107 (98-107) mmol/L Carbon Dioxide 20 L (22-32) mmol/L BUN 13 (7-17) mg/dL Creatinine 0.56 (0.52-1.04) mg/dL Estimated GFR > 60 (>60) mL/min BUN/Creatinine Ratio 23.2 H (6-22) Glucose 129 H (70-100) mg/dL Calcium 10.1 (8.4-10.2) mg/dL Total Bilirubin 2.2 H (0.2-1.3) mg/dL AST 29 (14-36) IU/L ALT 34 (<35) IU/L Alkaline Phosphatase 61 (38-126) U/L Total Protein 7.9 (6.3-8.2) g/dL Albumin 4.8 (3.5-5.0) g/dL Globulin 3.1 (1.7-4.1) g/dL Albumin/Globulin Ratio 1.5 (1.0-2.8) Urine Color Yellow Urine Appearance Sl cloudy Urine pH 5.5 (4.5-8.0) Ur Specific [place] >=1.030 H (1.000-1.035) Urine Protein 1+ H (Negative) Urine Glucose (UA) Negative (Negative) g/dL Urine Ketones 2+ H (NEGATIVE) Urine Occult Blood Negative (Negative) Urine Nitrate Negative (Negative) Urine Bilirubin 2+ H (NEGATIVE) Ur Bilirubin Confirm Negative (Negative) Urine Urobilinogen 0.2 (0.2) E.U./dL Ur Leukocyte Esterase Negative (NEGATIVE) Urine RBC None seen (0-5/HPF) Urine WBC 1-5/hpf (0-5/HPF) Ur Squamous Epith Cells 1-5 /hpf (0-5/HPF) Amorphous Sediment 2+ Urine Bacteria Moderate (10-30) H (None) Hyaline Casts 0-1/lpf (None) Urine Mucus 3+ H D (Negative) Ur Culture Indicated? Specimen cultured Vol Urine Centrifuged 10ml (spun) MDM Narrative Medical decision making narrative: CC: Recurrent upper abdominal pain with vomiting Complicating co-morbidities: Over a year of issues with same. Please see HPI. Data collected from: patient Medical records reviewed: See HPI for review of multiple visits and imaging over the last year and a half Differential considered: Abdominal migraine, gastric emptying abnormalities, internal hernia, bowel obstruction Exam documented above, pertinent findings include: Patient's exam appear similar to previous presentations with moderate upper abdominal pain without rebound or guarding. Vomiting and in obvious pain Lab Test results independently reviewed as above. Pertinent findings: CBC is reassuring no evidence of anemia or acute leukocytosis Chemistries show chronically elevated bilirubin slightly lower than recent studies Urinalysis shows no leukocytes, leukocyte esterase, nitrites, there is bacteria appreciated it has been cultured this does not look acutely infected Imaging studies independently reviewed: Multiple imaging studies over the last year and a half, please see HPI Treatments: Patient is received a total of 1 L of fluid, a mg of Dilaudid, 1.25 mg of droperidol. Initial improvement. Pain returning, additional L of fluid, 0.5 mg of Dilaudid 0.625 mg of droperidol, 50 mg of IV Benadryl and patient is dramatically improved Discussion: 43-year-old woman with almost a year and a half for recurrent episodes of severe upper abdominal pain associated with nausea vomiting sometimes with dehydration, hypokalemia most recently with a urinary tract infection. At this time she does not have any secondarily complicating issues. After 2 L fluid and medications above she is feeling better. We discussed trying scheduled Reglan to see if that might prevent recurrence. Recommended 10 mg 3 times a day. She has multiple follow up appointments with appropriate specialists and subspecialists pending. She is safe for discharge home Discharge Plan Departure Patient Disposition: Home Clinical Impression: Intractable vomiting with nausea, Intractable abdominal pain Instructions: DI for Vomiting -- Adult Activity Restrictions/Additional Instructions: I am sorry that you are continuing to suffer with this vomiting and abdominal pain with no clear answers Today there was no sign of bladder infection, sepsis, kidney failure, electrolyte abnormalities. You do not need to be in the hospital. You were initially given 1 L of fluid, and 1 mg of Dilaudid and 1.25 mg of droperidol. When your pain began to increase again repeated 1 L of fluid, 0.65 mg of droperidol, 0.5 mg of Dilaudid and 50 mg of Benadryl and that seemed to be the appropriate combination to allow you enough pain relief to be discharged home I will refill your topiramate please discuss this with your primary care physician. I do not know if having been out of this for the last week has contributed to today's events. I am also going to suggest you try metoclopramide on a scheduled basis, 3 times a day. We sometimes do this with diabetic patients with known gastroparesis to help prevent problems. If this helps it helps, if it does not it is yet another thing that we have tried and we know we need to move on. Prescriptions for topiramate and metoclopramide or both transmitted to [facility], [place], operated by [facility] Please keep all of your follow up appointments in the near future. If you find that you are getting worse please return to the ER Prescriptions: New metoclopramide HCl 10 mg tablet 10 mg PO QAC Qty: 120 0RF Rx Instructions: administer 30 minutes before meals topiramate 50 mg tablet 50 mg PO BID Qty: 60 0RF No Action sumatriptan succinate 50 mg tablet 50 mg PO Q2-4H PRN (Reason: migraine headache) Qty: 9 0RF Rx Instructions: do not exceed 4 doses per 24 hrs alprazolam 0.5 mg tablet 0.5 mg PO BID PRN (Reason: Anxiety) topiramate 50 mg tablet 50 mg PO BID Qty: 60 0RF sumatriptan succinate 50 mg tablet 50 mg PO Q2-4H PRN (Reason: migraine) ondansetron HCl 4 mg tablet 4 mg PO Q8H PRN (Reason: nausea/vomiting) phentermine 37.5 mg tablet 37.5 mg PO QAM promethazine 50 mg suppository 50 mg PA Q6H PRN (Reason: nausea and vomiting) Qty: 12 0RF ciprofloxacin HCl [Cipro] 500 mg tablet 500 mg PO BID Qty: 20 0RF Referrals: Crow Burgos MD [Primary Care Provider] - Stand Alone Forms: Patient Portal/API
[2024-07-03] MEDS: HYDROMORPHONE 0.5 MG INJ IV (14:31)
[2024-07-03] MEDS: diphenhydrAMINE 50 MG/ML VIAL IV (14:31)
[2024-07-03] MEDS: DROPERIDOL 5 MG/2 ML VIAL 0.625 MG IV (14:32)
[2024-07-03 14:33] LABS: Appearance Urine UA SL CLOUDY; Bilirubin Urine UA 2+ (NEGATIVE); Color Urine UA YELLOW; Glucose Urine UA NEGATIVE (Negative); Ketones Urine UA 2+ (NEGATIVE); Leukocyte Esterase Urine UA NEGATIVE (NEGATIVE); Nitrite Urine UA NEGATIVE (Negative); Occult Blood Urine UA NEGATIVE (Negative); Protein Urine UA 1+ (Negative); Specific Gravity Urine UA >=1.030 (1.000-1.035); Urobilinogen Urine UA 0.2 E.U./dL (0.2)
[2024-07-03 14:36] LABS: pH Urine UA 5.5 (4.5-8.0)
[2024-07-03 14:40] LABS: Ictotest Urine Negative (Negative); Urine Volume 10mL (spun)
[2024-07-03 14:41] LABS: Amorphous Sediment Urine 2+; Bacteria Urine Moderate (10-30); Hyaline Casts Urine 0-1/LPF; RBC Urine None Seen (0-5/HPF); Squamous Epithelial Cell Urine 1-5 /HPF (0-5/HPF); WBC Urine 1-5/HPF (0-5/HPF)
[2024-07-03 14:42] LABS: Culture Indicated Urine Specimen Cultured; Mucus Urine 3+ (Negative)
== END 2024-07-03 17:08 | disposition home or self-care (01) ==
PROVIDERS: Emergency Provider Emergency Medicine; PCP Internal Medicine
DX: R10.10 Upper abdominal pain, unspecified (principal); R11.2 Nausea with vomiting, unspecified
CPT/HCPCS: 36415; 80053; 81001; 85025; 87086; 96361; 96374; 96375; 96376; 99284; J1171; J1200; J1790

== ENCOUNTER 2024-07-17 20:07 | Emergency (ER) | payer OTHER, SELFPAY ==
[2024-07-17] VITALS (11 sets, daily range): BP systolic 85–182; BP diastolic 54–95; PULSE 78–107; RESP 18–20; TEMP 36.9; O2SAT 97–99; BMI 29.0
[2024-07-17 20:49] LABS: Add Manual Diff / Slide Review NO; Basophils Absolute Auto 100 /uL (0-100); Basophils Percent Auto 0.8 % (0-2); Eosinophils Absolute Auto 200 /uL (0-450); Eosinophils Percent Auto 1.9 % (2-4); Hematocrit 33.8 % (36-46); Hemoglobin 10.9 g/dL (12.0-16.0); Lymphocytes Absolute Auto 4000 /uL (1100-4500); Lymphocytes Percent Auto 34.1 % (25-40); Mean Corpuscular HGB Conc 32.3 % (30-36); Mean Corpuscular Hemoglobin 27.8 PG (26-34); Monocytes Absolute Auto 1200 /uL (0-900); Monocytes Percent Auto 10.1 % (3-14); Neutrophils Absolute Auto 6200 /uL (1500-7000); Neutrophils Percent Auto 53.1 % (50-75); Platelet Count 331 X10^3/uL (150-400); Red Blood Cell Count 3.93 X10^6/uL (4.0-5.2); Red Cell Distribution Width 15.5 % (11.6-14.8); White Blood Cell Count 11.7 X10^3/uL (4.5-11.0)
[2024-07-17 20:55] LABS: Alanine Aminotransferase 32 IU/L (<35); Albumin 3.3 g/dL (3.5-5.0); Albumin Globulin Ratio 1.3 (1.0-2.8); Alkaline Phosphatase 48 U/L (38-126); Aspartate Aminotransferase 26 IU/L (14-36); BUN Creatinine Ratio 30.9 (6-22); Bilirubin Total 0.6 mg/dL (0.2-1.3); Blood Urea Nitrogen 17 mg/dL (7-17); Calcium 8.4 mg/dL (8.4-10.2); Carbon Dioxide 23 mmol/L (22-32); Chloride 107 mmol/L (98-107); Estimated Glomerular Filt Rate > 60 mL/min (>60); Globulin 2.5 g/dL (1.7-4.1); Glucose 121 mg/dL (70-100); HEMOLYSIS 21 (0-50); Lipase 67 U/L (23-300); Sodium 136 mmol/L (137-145); Total Protein 5.8 g/dL (6.3-8.2)
--- NOTE | 2024-07-17 21:11 | ED_ITS ---
HPI - Abdominal Pain General Chief Complaint: Abdominal Pain Stated Complaint: abdominal pain Time Seen by Provider: 07/17/24 21:11 Source: patient Mode of arrival: Ambulatory History of Present Illness HPI narrative: Patient is a 43-year-old female with recurrent episodes of upper abdominal pain nausea vomiting, abdominal migraine on Topamax and other medications for this. Has had history of ex lap with 2 prior admissions. Comes in complaining of per similar recurrent abdominal pain. Also stating that she is having some right- sided pelvic pain, states that she has a history of ovarian torsion on her left that required removal. She states that she does not have her gallbladder does not have her appendix, states that the pain woke her up from sleep. She denies current nausea or vomiting. She states that she was supposed to get an outpatient ultrasound done few days ago but was canceled therefore she is concerned she might be having an affair a torsion again here in the emergency department. Denies any vaginal bleeding or discharge. Related Data Home Medications Medication Instructions Recorded Confirmed alprazolam 0.5 mg tablet 0.5 mg PO BID PRN Anxiety 05/06/23 07/05/24 ondansetron HCl 4 mg tablet 4 mg PO Q8H PRN nausea/vomiting 05/10/24 07/05/24 sumatriptan succinate 50 mg tablet 50 mg PO Q2-4H PRN migraine 05/10/24 07/05/24 topiramate 50 mg tablet 50 mg PO BID 07/05/24 Previous Rx's Medication Instructions Recorded sumatriptan succinate 50 mg tablet 50 mg PO Q2-4H PRN migraine 04/28/24 headache #9 tabs estradiol 0.5 mg tablet 0.5 mg PO DAILY #30 tabs 07/05/24 Allergies Allergy/AdvReac Type Severity Reaction Status Date / Time gluten Allergy Celiac Verified 07/05/24 09:40 coconut AdvReac Intermediate Hives Verified 07/05/24 09:40 NSAIDS (Non-Steroidal AdvReac Mild Gastrointestinal Verified 07/05/24 09:40 Anti-Inflamma Upset benzonatate AdvReac Unknown Hives Verified 07/05/24 09:40 [From Tessalon Perles] escitalopram [From Lexapro] AdvReac Unknown Hallucinati Verified 07/05/24 09:40 ng Review of Systems Review of Systems Narrative: General: Denies fever, chills, weight loss HEENT: Denies headache, eye drainage, eye irritation, head trauma, sore throat, voice change Cardiovascular: Denies any chest pain, palpitations, shortness of breath, tachycardia Respiratory: Denies any shortness of breath, cough, wheeze, stridor GI/: Positive abdominal pain, right-sided pelvic pain, denies nausea, vomiting, diarrhea, bright red blood per rectum, melanotic stools, urinary frequency, urinary retention, dysuria, hematuria MSK: Denies any joint pain, muscle pains, swelling Skin: Denies any rashes, lesions, discoloration Neuro: Denies any headache, lightheadedness, dizziness, fainting, weakness Psych: Denies SI/HI Patient History Medical History Left corneal abrasion Headache Polycystic ovary disease Celiac disease GERD with apnea Hypertension Bipolar disorder Surgical History Status post tubal ligation History of section H/O abdominoplasty H/O oophorectomy H/O gastric sleeve History of cholecystectomy History of appendectomy Social History marital status: household members: significant other and children lives independently: Yes occupational status: employed Smoking Status: Never smoker alcohol intake: current substance use type: marijuana Smoking Status: Never smoker alcohol intake frequency: holidays/special occasions only Substance Use Type: does not use Exam Narrative Exam Narrative: General: Cooperative, comfortable, well-developed, not in acute distress HEENT: Normocephalic, atraumatic, PERRLA, normal sclera, eyelids normal, Neck: Active full range of motion, atraumatic Chest: Normal to inspection, negative crepitus, no overlying erythema ecchymosis Respiratory: Normal respiratory effort, not in acute respiratory distress, clear to auscultation bilaterally negative cough, wheeze, tachypnea, rhonchi, rales Cardiology: Regular rate rhythm negative gallop, murmur, rubs GI/: Normal to inspection, soft, nonrigid, mild tenderness to palpation diffuse, exam deferred MSK: Full range of active range of motion of all 4 extremities, atraumatic Skin: No rashes lesions noted Neuro: Alert awake oriented x3, moves all 4 extremities spontaneously, cranial nerves intact, able to answer all questions appropriately follows commands appropriately Psych: Cooperative, negative suicidal or homicidal ideations Initial Vital Signs Initial Vital Signs: Vital Signs Temperature 98.5 F 07/17/24 20:18 Pulse Rate 107 H 07/17/24 20:18 Respiratory Rate 20 07/17/24 20:18 Blood Pressure 182/84 H 07/17/24 20:18 Pulse Oximetry 97 07/17/24 20:18 Oxygen Delivery Method Room Air 07/17/24 20:18 Course Orders Ordered: ED Orders 07/17/24 20:25 EKG-12 Lead Stat 07/17/24 20:35 Complete Blood Count AUTO DIFF Stat Comprehensive Metabolic Panel Stat Lipase Stat 07/17/24 22:11 US pelvic complete Stat 07/17/24 23:32 CT abdomen pelvis w con Stat Ondansetron HCl (Ondansetron 4 Mg/2 Ml Inj) 4 mg IV NOW PRN PRN Reason: Nausea And Vomiting Ondansetron HCl (Ondansetron 4 Mg Odt) 4 mg PO NOW PRN PRN Reason: Nausea And Vomiting Discontinued Medications Hydromorphone HCl (Hydromorphone 1 Mg Inj) 1 mg IV NOW ONE Stop: 07/17/24 22:11 Last Admin: 07/17/24 22:21 Dose: 1 mg Documented By: BALTAZAR Hydromorphone HCl (Hydromorphone 1 Mg Inj) 1 mg IV NOW ONE Stop: 07/17/24 23:33 Last Admin: 07/17/24 23:58 Dose: 1 mg Documented By: HAYDEE Vital Signs Vital signs: Vital Signs - 8 hr 07/17/24 20:18 07/17/24 22:11 07/17/24 22:25 Temperature 98.5 F Pulse Rate 107 H 81 87 Respiratory Rate 20 Blood Pressure 182/84 H Pulse Oximetry 97 98 98 Oxygen Delivery Method Room Air 07/17/24 22:25 07/17/24 22:30 07/17/24 22:31 Temperature Pulse Rate 80 85 Respiratory Rate Blood Pressure 162/94 H Pulse Oximetry 97 97 Oxygen Delivery Method 07/17/24 22:31 07/17/24 23:00 07/17/24 23:01 Temperature Pulse Rate 82 Respiratory Rate Blood Pressure 118/91 H 85/54 L Pulse Oximetry 97 Oxygen Delivery Method 07/17/24 23:01 07/17/24 23:03 07/17/24 23:03 Temperature Pulse Rate 82 87 Respiratory Rate Blood Pressure 132/78 Pulse Oximetry 97 99 Oxygen Delivery Method 07/17/24 23:30 07/17/24 23:31 07/17/24 23:31 Temperature Pulse Rate 89 78 Respiratory Rate Blood Pressure 172/95 H Pulse Oximetry 98 98 Oxygen Delivery Method 07/17/24 23:55 07/17/24 23:55 07/18/24 00:00 Temperature Pulse Rate 86 85 Respiratory Rate 18 Blood Pressure 140/89 Pulse Oximetry 98 98 Oxygen Delivery Method 07/18/24 00:01 07/18/24 00:01 Temperature Pulse Rate 85 Respiratory Rate Blood Pressure 141/74 H Pulse Oximetry 98 Oxygen Delivery Method MDM - Abdominal Pain Differential Diagnosis Differential diagnosis: Likely other (Intractable abdominal pain, electrolyte abnormality, urinary tract infection, ovarian torsion) Lab Data 07/17/24 20:35 07/17/24 20:35 Labs: Lab Results 07/17/24 Range/Units 20:35 WBC 11.7 H (4.5-11.0) X10^3/uL RBC 3.93 L (4.0-5.2) X10^6/uL Hgb 10.9 L (12.0-16.0) g/dL Hct 33.8 L (36-46) % MCV 86.0 (80-100) fL MCH 27.8 (26-34) PG MCHC 32.3 (30-36) % RDW 15.5 H (11.6-14.8) % Plt Count 331 (150-400) X10^3/uL Neut % (Auto) 53.1 (50-75) % Lymph % (Auto) 34.1 (25-40) % [place] % (Auto) 10.1 (3-14) % Eos % (Auto) 1.9 L (2-4) % Baso % (Auto) 0.8 (0-2) % Neut # (Auto) 6200 (3531-6487) /uL Lymph # (Auto) 4000 (1719-3394) /uL [place] # (Auto) 1200 H (0-900) /uL Eos # (Auto) 200 (0-450) /uL Baso # (Auto) 100 (0-100) /uL Sodium 136 L (137-145) mmol/L Potassium 4.0 (3.4-5.1) mmol/L Chloride 107 (98-107) mmol/L Carbon Dioxide 23 (22-32) mmol/L BUN 17 (7-17) mg/dL Creatinine 0.55 (0.52-1.04) mg/dL Estimated GFR > 60 (>60) mL/min BUN/Creatinine Ratio 30.9 H (6-22) Glucose 121 H (70-100) mg/dL Calcium 8.4 (8.4-10.2) mg/dL Total Bilirubin 0.6 (0.2-1.3) mg/dL AST 26 (14-36) IU/L ALT 32 (<35) IU/L Alkaline Phosphatase 48 (38-126) U/L Total Protein 5.8 L (6.3-8.2) g/dL Albumin 3.3 L (3.5-5.0) g/dL Globulin 2.5 (1.7-4.1) g/dL Albumin/Globulin Ratio 1.3 (1.0-2.8) Lipase 67 (23-300) U/L Point of care testing: Urine Dip Bedside Urine Glucose Negative Bedside Urine Bilirubin - Negative Bedside Urine Ketone - Negative Urine Specific [place] 1.020 Bedside Urine Occult Blood - Negative Bedside Urine pH 6.0 Bedside Urine Protein - Negative Bedside Urine Urobilinogen - Negative Bedside Urine Nitrite - Negative Bedside Urine Leukocytes - Negative Esterase Imaging Data Ultrasound pelvis: Radiologist's Impression: [address] [address] Ultrasound Report Signed Patient: Janet Escobar MR#: [id number] : 1980 Acct:[id number] Age/Sex: 43 / F Date of Service: 07/17/24 Loc: ED Accession Number: [id number] Procedure: US pelvic complete Ordering Provider: Wiliam Zimmer D.O. PROCEDURE: US PELVIC COMPLETE INDICATIONS: Right-sided pelvic pain history of ovarian cyst and ovarian TECHNIQUE: Real-time scanning was performed of the pelvic organs, with image documentation. Additional endovaginal scanning was necessary due to incomplete visualization of the adnexal and endometrial structures by transabdominal scanning. COMPARISON: [facility], US, US PELVIC COMPLETE, 10/14/2023, 14:42. FINDINGS: Uterus: Uterus is surgically absent. No abnormality is seen in vaginal cuff region. Ovaries: Bilateral ovaries are not visualized due to overlying bowel gas. No gross adnexal mass. Other: No pathologic free abdominal or pelvic fluid. IMPRESSION: Limited evaluation due to overlying bowel gas. Uterus and left ovary are surgically absent. No gross abnormality is seen in vaginal cuff region or bilateral adnexa. No pelvic free fluid. CT scan - abdomen/pelvis: Radiologist's Impression: [address] [address] [address] Scan Report Signed Patient: Janet Escobar MR#: [id number] : 1980 Acct:[id number] Age/Sex: 43 / F Date of Service: 07/17/24 Loc: ED Accession Number: [id number] Procedure: CT abdomen pelvis w con Ordering Provider: Wiliam Zimmer D.O. PROCEDURE: CT ABDOMEN PELVIS W CON INDICATIONS: diffuse abd pain, worse to right pelvic region TECHNIQUE: After the administration of intravenous contrast, axial sections acquired from the lung bases to the pubic symphysis. Coronal and sagittal reformats were performed. For radiation dose reduction, the following was used: automated exposure control, adjustment of mA and/or kV according to patient size. COMPARISON: [facility], CT, CT ABDOMEN PELVIS W CON, 06/10/2024, 8:45. FINDINGS: Image quality: Diagnostic. Lower Chest: No significant findings. ABDOMEN: Liver: No solid mass. Moderate hepatic steatosis is seen. Gallbladder: Gallbladder is surgically absent. Biliary ducts: No biliary dilation. Pancreas: No ductal dilation. Spleen: Size is within normal limits. Cystic area within spleen is again seen unchanged from prior study. Adrenal Glands: No adrenal nodules. Kidneys and Ureters: No hydronephrosis. No solid mass. No complex renal cystic lesion which requires follow up. Stomach and Bowel: Normal colonic caliber, without significant wall thickening. Postsurgical changes are noted from prior gastric sleeve surgery. Scattered colonic diverticulosis without evidence of acute diverticulitis. Prior appendectomy. No abscess collection. Peritoneum: No abnormal intraperitoneal fluid. No free air. Ventral Wall: Small umbilical hernia is seen containing fat only. Abdominal Nodes: No retroperitoneal or mesenteric adenopathy by size criteria. Vessels: Aorta and inferior vena cava are normal in size. PELVIS: Pelvic Organs: Uterus is surgically absent. No abnormality is seen in vaginal cuff region. Bladder: No bladder wall thickening, accounting for underdistention. Pelvic Nodes: No enlarged lymph nodes. Miscellaneous: No inguinal hernias are seen. Bones: No aggressive osseous abnormality. IMPRESSION: 1. No acute inflammatory process is seen in abdomen or pelvis. 2. No bowel obstruction or abnormal bowel wall thickening. Colonic diverticulosis without CT evidence of acute diverticulitis. Prior gastric sleeve surgery and appendectomy. Mild constipation. 3. Stable cystic structure again seen in spleen. Prior cholecystectomy. Moderate hepatic steatosis. 4. Prior hysterectomy. No abnormality is seen in vaginal cuff region. MDM Narrative Medical decision making narrative: Patient is a 43-year-old female with a history of intractable abdominal pain secondary to abdominal migraines presents for abdominal pain/right pelvic pain. States it is similar to her history of this but is different in the regards that she has not having any nausea or vomiting. She states that she is worried she might be having an ovarian torsion given the fact that she has a history of this, she states that she was supposed to get an outpatient ultrasound several days/weeks ago but this was canceled on her, she said she had improving symptoms therefore did not attempt to reschedule this. Here ultrasound and CT scan were unremarkable, just showing stable baseline findings. She did require multiple doses of Dilaudid which did resolve her pain. Symptoms more likely secondary to a flare-up of her abdominal migraines. She was given strict return precautions she verbalized understanding of this and agrees to being discharged home with outpatient follow up Discharge Plan Departure Patient Disposition: Home Clinical Impression: Abdominal migraine Activity Restrictions/Additional Instructions: Please read the discharge instructions sheet carefully and bring all papers to all doctor follow-up visits, as it may contain information that your doctor may want to see. Disease processes change and evolve, if your symptoms worsen or if you develop any new symptoms that are concerning to you please return for evaluation. Your evaluation today does not show any evidence of any life- threatening/serious illnesses requiring admission to the hospital or surgery. Please follow-up with your doctor for re-evaluation in approximately 1 day. Seek immediate medical attention for any worrisome symptoms. Prescriptions: No Action topiramate 50 mg tablet 50 mg PO BID estradiol 0.5 mg tablet 0.5 mg PO DAILY Qty: 30 3RF sumatriptan succinate 50 mg tablet 50 mg PO Q2-4H PRN (Reason: migraine headache) Qty: 9 0RF Rx Instructions: do not exceed 4 doses per 24 hrs alprazolam 0.5 mg tablet 0.5 mg PO BID PRN (Reason: Anxiety) sumatriptan succinate 50 mg tablet 50 mg PO Q2-4H PRN (Reason: migraine) ondansetron HCl 4 mg tablet 4 mg PO Q8H PRN (Reason: nausea/vomiting) Referrals: Sarah Dunbar MD [Primary Care Provider] - Stand Alone Forms: Patient Portal/API/Survey
--- NOTE | 2024-07-17 21:54 | PC.NURSE ---
Pt declines preg test, states she's S/P hysterectomy
--- NOTE | 2024-07-17 22:11 | DI.US.S_ITS ---
PROCEDURE: US PELVIC COMPLETE INDICATIONS: Right-sided pelvic pain history of ovarian cyst and ovarian TECHNIQUE: Real-time scanning was performed of the pelvic organs, with image documentation. Additional endovaginal scanning was necessary due to incomplete visualization of the adnexal and endometrial structures by transabdominal scanning. COMPARISON: [facility], , PELVIC COMPLETE, 10/14/2023, 14:42. FINDINGS: Uterus: Uterus is surgically absent. No abnormality is seen in vaginal cuff region. Ovaries: Bilateral ovaries are not visualized due to overlying bowel gas. No gross adnexal mass. Other: No pathologic free abdominal or pelvic fluid. IMPRESSION: Limited evaluation due to overlying bowel gas. Uterus and left ovary are surgically absent. No gross abnormality is seen in vaginal cuff region or bilateral adnexa. No pelvic free fluid. We strive to produce accurate, complete, and clear reports of imaging services. To assist us in improving patient care, this report was composed using standard report templates and voice recognition software. Therefore, it may contain abnormal punctuation, insertions and/or omissions. Occasional wrong-word or sound-alike substitutions may occur. Though we review the report and make efforts to correct it, we do recommend that the report be read carefully in proper context to recognize any text inaccuracies. Dictated by: Navarro Ceballos M.D. on 07/17/2024 at 23:37 Approved by: Navarro Ceballos M.D. on 07/17/2024 at 23:39
[2024-07-17] MEDS: HYDROMORPHONE 1 MG INJ IV ×2 (22:21→23:58)
--- NOTE | 2024-07-17 23:25 | PC.NURSE ---
Wrister provided for transvaginal US. Pt tolerated.
--- NOTE | 2024-07-17 23:32 | DI.CT.S_ITS ---
PROCEDURE: CT ABDOMEN PELVIS W CON INDICATIONS: diffuse abd pain, worse to right pelvic region TECHNIQUE: After the administration of intravenous contrast, axial sections acquired from the lung bases to the pubic symphysis. Coronal and sagittal reformats were performed. For radiation dose reduction, the following was used: automated exposure control, adjustment of mA and/or kV according to patient size. COMPARISON: [facility], CT, CT ABDOMEN PELVIS W CON, 06/10/2024, 8:45. FINDINGS: Image quality: Diagnostic. Lower Chest: No significant findings. ABDOMEN: Liver: No solid mass. Moderate hepatic steatosis is seen. Gallbladder: Gallbladder is surgically absent. Biliary ducts: No biliary dilation. Pancreas: No ductal dilation. Spleen: Size is within normal limits. Cystic area within spleen is again seen unchanged from prior study. Adrenal Glands: No adrenal nodules. Kidneys and Ureters: No hydronephrosis. No solid mass. No complex renal cystic lesion which requires follow up. Stomach and Bowel: Normal colonic caliber, without significant wall thickening. Postsurgical changes are noted from prior gastric sleeve surgery. Scattered colonic diverticulosis without evidence of acute diverticulitis. Prior appendectomy. No abscess collection. Peritoneum: No abnormal intraperitoneal fluid. No free air. Ventral Wall: Small umbilical hernia is seen containing fat only. Abdominal Nodes: No retroperitoneal or mesenteric adenopathy by size criteria. Vessels: Aorta and inferior vena cava are normal in size. PELVIS: Pelvic Organs: Uterus is surgically absent. No abnormality is seen in vaginal cuff region. Bladder: No bladder wall thickening, accounting for underdistention. Pelvic Nodes: No enlarged lymph nodes. Miscellaneous: No inguinal hernias are seen. Bones: No aggressive osseous abnormality. IMPRESSION: 1. No acute inflammatory process is seen in abdomen or pelvis. 2. No bowel obstruction or abnormal bowel wall thickening. Colonic diverticulosis without CT evidence of acute diverticulitis. Prior gastric sleeve surgery and appendectomy. Mild constipation. 3. Stable cystic structure again seen in spleen. Prior cholecystectomy. Moderate hepatic steatosis. 4. Prior hysterectomy. No abnormality is seen in vaginal cuff region. Dictated by: Navarro Ceballos M.D. on 07/18/2024 at 0:05 Approved by: Navarro Ceballos M.D. on 07/18/2024 at 0:08
[2024-07-18] VITALS: PULSE 85; O2SAT 98
[2024-07-18 00:01] VITALS: BP 141/74; PULSE 85; O2SAT 98
[2024-07-18] MEDS: HYDROMORPHONE 1 MG INJ IV (00:36)
[2024-07-18 00:52] VITALS: BP 124/75; PULSE 85; RESP 16; TEMP 36.8; O2SAT 98
== END 2024-07-18 00:54 | disposition home or self-care (01) ==
PROVIDERS: Emergency Provider Student in an Organized Health Care Education/Training Program; PCP Student in an Organized Health Care Education/Training Program
DX: G43.D0 Abdominal migraine, not intractable (principal); R11.2 Nausea with vomiting, unspecified; R10.2 Pelvic and perineal pain
CPT/HCPCS: 36415; 74177; 76856; 80053; 81003; 83690; 85025; 96374; 96376; 99284; J1171; Q9967

== ENCOUNTER 2024-07-24 07:45 | Emergency (ER) | payer OTHER, SELFPAY ==
[2024-07-24] VITALS (14 sets, daily range): BP systolic 101–131; BP diastolic 57–93; PULSE 55–102; RESP 12–23; TEMP 36.8; O2SAT 97–100; BMI 29.0
--- NOTE | 2024-07-24 07:54 | ED.GENADULT ---
HPI - General Adult General Chief complaint: Nausea/Vomiting/Diarrhea Stated complaint: migraines Time Seen by Provider: 07/24/24 07:50 Source: patient Mode of arrival: Ambulatory Limitations: no limitations History of Present Illness HPI narrative: Patient is a 43-year-old female. Has a history ?abdominal migraines? here for evaluation of what she describes as her usual abdominal migraine. Has been going on for the past couple days. She was seen here in the emergency department several days ago for similar symptoms however she was not having nausea and vomiting at the time. During that visit she had an extensive workup to include ultrasound and CT scans and lab work. Was eventually discharged home. She now states she was vomiting. Can not hold down fluids but is able to hold down medications which she states are not working. Is having some loose stools. No fevers. Has had urinary tract infections in the past without symptoms but does not have any urinary symptoms today. Afebrile. Describes the pain as generalized central pain. Related Data Home Medications Medication Instructions Recorded Confirmed alprazolam 0.5 mg tablet 0.5 mg PO BID PRN Anxiety 05/06/23 07/05/24 ondansetron HCl 4 mg tablet 4 mg PO Q8H PRN nausea/vomiting 05/10/24 07/24/24 sumatriptan succinate 50 mg tablet 50 mg PO Q2-4H PRN migraine 05/10/24 07/05/24 topiramate 50 mg tablet 50 mg PO BID 07/05/24 metoclopramide HCl 5 mg tablet 5 mg PO QAC 07/24/24 07/24/24 (Reglan) Previous Rx's Medication Instructions Recorded sumatriptan succinate 50 mg tablet 50 mg PO Q2-4H PRN migraine 04/28/24 headache #9 tabs estradiol 0.5 mg tablet 0.5 mg PO DAILY #30 tabs 07/05/24 Allergies Allergy/AdvReac Type Severity Reaction Status Date / Time gluten Allergy Celiac Verified 07/24/24 07:56 coconut AdvReac Intermediate Hives Verified 07/24/24 07:56 NSAIDS (Non-Steroidal AdvReac Mild Gastrointestinal Verified 07/24/24 07:56 Anti-Inflamma Upset benzonatate AdvReac Unknown Hives Verified 07/24/24 07:56 [From Tessalblayne Perles] escitalopram [From Lexapro] AdvReac Unknown Hallucinati Verified 07/24/24 07:56 ng Review of Systems Review of Systems Narrative: See HPI Patient History Medical History Left corneal abrasion Headache Polycystic ovary disease Celiac disease GERD with apnea Hypertension Bipolar disorder Surgical History Status post tubal ligation History of section H/O abdominoplasty H/O oophorectomy H/O gastric sleeve History of cholecystectomy History of appendectomy Social History marital status: household members: significant other and children lives independently: Yes occupational status: employed Smoking Status: Never smoker alcohol intake: current substance use type: marijuana Smoking Status: Never smoker alcohol intake frequency: holidays/special occasions only Substance Use Type: does not use Exam Initial Vital Signs Initial Vital Signs: Vital Signs Temperature 98.2 F 07/24/24 07:51 Pulse Rate 89 07/24/24 07:51 Respiratory Rate 17 07/24/24 07:51 Blood Pressure 108/83 07/24/24 07:51 Pulse Oximetry 100 07/24/24 07:51 Oxygen Delivery Method Room Air 07/24/24 07:51 Const General: cooperative and No ill appearing HENMT Head: normal to inspection and normocephalic Resp Effort & Inspection: normal respiratory effort Cardio Rate: regular rate GI Inspection: normal to inspection and non-distended Palpation: soft, No firm, No guarding, No rigid and tender (Generalized abdominal tenderness) Skin General: no rashes or lesions noted Neuro General: patient alert, patient awake and moves all extremities Extrem General: capillary refill normal Course Orders Ordered: ED Orders 07/24/24 08:24 Complete Blood Count AUTO DIFF Stat Comprehensive Metabolic Panel Stat Lipase Stat 07/24/24 09:35 Ictotest Urine Stat Urine Culture Stat Urine Microscopic Stat Discontinued Medications Droperidol (Droperidol 5 Mg/2 Ml Vial) 1.25 mg IV NOW ONE Stop: 07/24/24 07:55 Last Admin: 07/24/24 08:31 Dose: 1.25 mg Documented By: HAYDEE Hydromorphone HCl (Hydromorphone 1 Mg Inj) 1 mg IV NOW ONE Stop: 07/24/24 07:55 Last Admin: 07/24/24 08:26 Dose: 1 mg Documented By: HAYDEE Sodium Chloride (Normal Saline 0.9%) 500 mls @ 1,000 mls/hr IV BOLUS ONE Stop: 07/24/24 08:23 Last Infusion: 07/24/24 08:59 Dose: Infused Documented By: Admin: 07/24/24 08:26 Dose: 1,000 mls/hr Documented By: HAYDEE Vital Signs Vital signs: Vital Signs - 8 hr 07/24/24 07:51 07/24/24 07:54 07/24/24 08:00 Temperature 98.2 F Pulse Rate 89 93 H Respiratory Rate 17 Blood Pressure 108/83 120/93 H Pulse Oximetry 100 100 Oxygen Delivery Method Room Air 07/24/24 08:00 07/24/24 08:30 07/24/24 08:30 Temperature Pulse Rate 95 H 88 Respiratory Rate Blood Pressure 131/68 Pulse Oximetry 98 99 Oxygen Delivery Method 07/24/24 08:45 07/24/24 08:45 Temperature Pulse Rate 72 Respiratory Rate 15 Blood Pressure 120/63 Pulse Oximetry 97 Oxygen Delivery Method Medical Decision Making Medical Records Medical records reviewed: Yes I reviewed the patient's medical records. Lab Data Lab results reviewed: Yes I reviewed the patient's lab results. 07/24/24 08:24 07/24/24 08:24 Labs: Lab Results 07/24/24 07/24/24 Range/Units 08:24 09:35 WBC 9.2 (4.5-11.0) X10^3/uL RBC 4.58 (4.0-5.2) X10^6/uL Hgb 12.9 (12.0-16.0) g/dL Hct 38.8 (36-46) % MCV 84.6 (80-100) fL MCH 28.1 (26-34) PG MCHC 33.2 (30-36) % RDW 15.1 H (11.6-14.8) % Plt Count 390 (150-400) X10^3/uL Neut % (Auto) 71.1 (50-75) % Lymph % (Auto) 19.4 L (25-40) % [place] % (Auto) 8.5 (3-14) % Eos % (Auto) 0.7 L (2-4) % Baso % (Auto) 0.3 (0-2) % Neut # (Auto) 6500 (4267-3154) /uL Lymph # (Auto) 1800 (8158-8414) /uL [place] # (Auto) 800 (0-900) /uL Eos # (Auto) 100 (0-450) /uL Baso # (Auto) 0 (0-100) /uL Sodium 141 (137-145) mmol/L Potassium 3.7 (3.4-5.1) mmol/L Chloride 104 (98-107) mmol/L Carbon Dioxide 26 (22-32) mmol/L BUN 10 (7-17) mg/dL Creatinine 0.61 (0.52-1.04) mg/dL Estimated GFR > 60 (>60) mL/min BUN/Creatinine Ratio 16.4 (6-22) Glucose 110 H (70-100) mg/dL Calcium 10.0 (8.4-10.2) mg/dL Total Bilirubin 2.3 H (0.2-1.3) mg/dL AST 40 H (14-36) IU/L ALT 54 H (<35) IU/L Alkaline Phosphatase 67 (38-126) U/L Total Protein 7.8 (6.3-8.2) g/dL Albumin 4.7 (3.5-5.0) g/dL Globulin 3.1 (1.7-4.1) g/dL Albumin/Globulin Ratio 1.5 (1.0-2.8) Lipase 91 (23-300) U/L Ur Bilirubin Confirm Negative (Negative) Urine RBC 0-1/hpf (0-5/HPF) Urine WBC 5-10/hpf H (0-5/HPF) Ur Squamous Epith Cells 5-10 /hpf H (0-5/HPF) Urine Bacteria Moderate (10-30) H (None) Ur Culture Indicated? Specimen cultured Vol Urine Centrifuged 10ml (spun) Urine Dip Bedside Urine Glucose Negative Bedside Urine Bilirubin + 1 Bedside Urine Ketone - Negative Urine Specific [place] 1.015 Bedside Urine Occult Blood - Negative Bedside Urine pH 6.0 Bedside Urine Protein - Negative Bedside Urine Urobilinogen - Negative Bedside Urine Nitrite - Negative Bedside Urine Leukocytes +/- 15 Esterase Point of care testing: Urine Dip Bedside Urine Glucose Negative Bedside Urine Bilirubin + 1 Bedside Urine Ketone - Negative Urine Specific [place] 1.015 Bedside Urine Occult Blood - Negative Bedside Urine pH 6.0 Bedside Urine Protein - Negative Bedside Urine Urobilinogen - Negative Bedside Urine Nitrite - Negative Bedside Urine Leukocytes +/- 15 Esterase MDM Narrative Medical decision making narrative: Patient was feeling much better after medications here in the emergency department. She was able to tolerate oral intake. Labs are unremarkable. Urine culture is pending. Will discharge patient home with instructions to contact primary doctor. I do feel that we can hold on any radiologic studies for now. Patient was given return precautions. Discharge Plan Departure Patient Disposition: Home Clinical Impression: Nausea and vomiting, Abdominal pain Instructions: DI for Abdominal Pain-Adult, Nausea and Vomiting-Adult Activity Restrictions/Additional Instructions: Recommend that you continue to take all of your medications as directed. Recommend a bland diet for the next couple days. Contact your primary doctor for a follow-up. Return to the emergency department for new or worsening symptoms. Prescriptions: No Action topiramate 50 mg tablet 50 mg PO BID estradiol 0.5 mg tablet 0.5 mg PO DAILY Qty: 30 3RF sumatriptan succinate 50 mg tablet 50 mg PO Q2-4H PRN (Reason: migraine headache) Qty: 9 0RF Rx Instructions: do not exceed 4 doses per 24 hrs metoclopramide HCl [Reglan] 5 mg Tablet 5 mg PO QAC Rx Instructions: administer 30 minutes before meals alprazolam 0.5 mg tablet 0.5 mg PO BID PRN (Reason: Anxiety) sumatriptan succinate 50 mg tablet 50 mg PO Q2-4H PRN (Reason: migraine) ondansetron HCl 4 mg tablet 4 mg PO Q8H PRN (Reason: nausea/vomiting) Referrals: Sarah Dunbar MD [Primary Care Provider] - Stand Alone Forms: Patient Portal/API/Survey
[2024-07-24] MEDS: SODIUM CHLORIDE 0.9% 500 ML 1000 ML IV (08:26)
[2024-07-24] MEDS: HYDROMORPHONE 1 MG INJ IV (08:26)
[2024-07-24] MEDS: DROPERIDOL 5 MG/2 ML VIAL 1.25 MG IV (08:31)
[2024-07-24 08:39] LABS: Add Manual Diff / Slide Review NO; Basophils Absolute Auto 0 /uL (0-100); Basophils Percent Auto 0.3 % (0-2); Eosinophils Absolute Auto 100 /uL (0-450); Eosinophils Percent Auto 0.7 % (2-4); Hematocrit 38.8 % (36-46); Hemoglobin 12.9 g/dL (12.0-16.0); Lymphocytes Absolute Auto 1800 /uL (1100-4500); Lymphocytes Percent Auto 19.4 % (25-40); Mean Corpuscular HGB Conc 33.2 % (30-36); Mean Corpuscular Hemoglobin 28.1 PG (26-34); Mean Corpuscular Volume 84.6 fL (80-100); Monocytes Absolute Auto 800 /uL (0-900); Monocytes Percent Auto 8.5 % (3-14); Neutrophils Absolute Auto 6500 /uL (1500-7000); Neutrophils Percent Auto 71.1 % (50-75); Platelet Count 390 X10^3/uL (150-400); Red Blood Cell Count 4.58 X10^6/uL (4.0-5.2); Red Cell Distribution Width 15.1 % (11.6-14.8); White Blood Cell Count 9.2 X10^3/uL (4.5-11.0)
[2024-07-24 08:50] LABS: Alanine Aminotransferase 54 IU/L (<35); Albumin 4.7 g/dL (3.5-5.0); Albumin Globulin Ratio 1.5 (1.0-2.8); Alkaline Phosphatase 67 U/L (38-126); Aspartate Aminotransferase 40 IU/L (14-36); BUN Creatinine Ratio 16.4 (6-22); Bilirubin Total 2.3 mg/dL (0.2-1.3); Blood Urea Nitrogen 10 mg/dL (7-17); Carbon Dioxide 26 mmol/L (22-32); Chloride 104 mmol/L (98-107); Estimated Glomerular Filt Rate > 60 mL/min (>60); Globulin 3.1 g/dL (1.7-4.1); Glucose 110 mg/dL (70-100); HEMOLYSIS < 15 (0-50); Lipase 91 U/L (23-300); Potassium 3.7 mmol/L (3.4-5.1); Sodium 141 mmol/L (137-145); Total Protein 7.8 g/dL (6.3-8.2)
--- NOTE | 2024-07-24 08:53 | PC.NURSE ---
abdominal migraines hx GI surgery in 2017. Pt states 6 months after surgery she started to have a lot of abdominal issues. Pt states she has appointments with [facility] and her gastric surgeon within the next couple months. Pt states she feels she is not 100% certain that her issue is abdominal migraines. Pt states she has had repetitive vomiting x 3 days; unable to keep water or medication down.
[2024-07-24 09:51] LABS: Ictotest Urine Negative (Negative)
[2024-07-24 10:09] LABS: Bacteria Urine Moderate (10-30); Culture Indicated Urine Specimen Cultured; RBC Urine 0-1/HPF (0-5/HPF); Squamous Epithelial Cell Urine 5-10 /HPF (0-5/HPF); Urine Volume 10mL (spun); WBC Urine 5-10/HPF (0-5/HPF)
== END 2024-07-24 11:02 | disposition home or self-care (01) ==
PROVIDERS: Emergency Provider Emergency Medicine; PCP Student in an Organized Health Care Education/Training Program
DX: R11.2 Nausea with vomiting, unspecified (principal); R10.9 Unspecified abdominal pain
CPT/HCPCS: 36415; 80053; 81003; 81015; 83690; 85025; 87086; 96361; 96374; 96375; 99284; J1171; J1790

== ENCOUNTER 2024-07-25 15:12 | Emergency (ER) | payer OTHER, SELFPAY ==
[2024-07-25] VITALS (7 sets, daily range): BP systolic 142–157; BP diastolic 69–112; PULSE 82–129; RESP 18–22; TEMP 36.8; O2SAT 96–99; BMI 28.7
--- NOTE | 2024-07-25 15:37 | ED_ITS ---
HPI - General Adult <Onesimo Cruz DO - Last Filed: 08/04/24 17:58> General Chief complaint: Abdominal Pain Stated complaint: flank px bilat nausea vomitting Time Seen by Provider: 07/25/24 15:28 Source: patient Mode of arrival: Ambulatory History of Present Illness HPI narrative: Patient was a 43-year-old female who has a history of ?abdominal migraines? I saw her here in the emergency department yesterday for abdominal pain. She received medications which resolved her symptoms. Labs unremarkable. Was discharged home. She denies any return of the abdominal pain. Is having some nausea but no vomiting however the reason that she was here today is because of lower back discomfort. During her visit yesterday she had a urinalysis which showed quite a few epi cells. She was not treated with antibiotics. We are waiting for the urine culture to result. She has had pyelonephritis in the past and was somewhat concerned that maybe her lower back pain was a kidney infection. The pain is worse with palpation. No trauma. No urinary symptoms today. No change in bowel habits. Related Data Home Medications Medication Instructions Recorded Confirmed alprazolam 0.5 mg tablet 0.5 mg PO BID PRN Anxiety 05/06/23 07/05/24 ondansetron HCl 4 mg tablet 4 mg PO Q8H PRN nausea/vomiting 05/10/24 07/24/24 sumatriptan succinate 50 mg tablet 50 mg PO Q2-4H PRN migraine 05/10/24 07/05/24 topiramate 50 mg tablet 50 mg PO BID 07/05/24 metoclopramide HCl 5 mg tablet 5 mg PO QAC 07/24/24 07/24/24 (Reglan) Previous Rx's Medication Instructions Recorded sumatriptan succinate 50 mg tablet 50 mg PO Q2-4H PRN migraine 04/28/24 headache #9 tabs estradiol 0.5 mg tablet 0.5 mg PO DAILY #30 tabs 07/05/24 cefpodoxime 200 mg tablet 200 mg PO Q12H #20 tabs 07/25/24 Allergies Allergy/AdvReac Type Severity Reaction Status Date / Time gluten Allergy Celiac Verified 07/25/24 15:15 coconut AdvReac Intermediate Hives Verified 07/25/24 15:15 NSAIDS (Non-Steroidal AdvReac Mild Gastrointestinal Verified 07/25/24 15:15 Anti-Inflamma Upset benzonatate AdvReac Unknown Hives Verified 07/25/24 15:15 [From Tessalon Perles] escitalopram [From Lexapro] AdvReac Unknown Hallucinati Verified 07/25/24 15:15 ng Review of Systems <Onesimo Cruz DO - Last Filed: 08/04/24 17:58> Review of Systems Narrative: See HPI Patient History <Onesimo Cruz DO - Last Filed: 08/04/24 17:58> Medical History Left corneal abrasion Headache Polycystic ovary disease Celiac disease GERD with apnea Hypertension Bipolar disorder Surgical History Status post tubal ligation History of section H/O abdominoplasty H/O oophorectomy H/O gastric sleeve History of cholecystectomy History of appendectomy Social History marital status: household members: significant other and children lives independently: Yes occupational status: employed Smoking Status: Never smoker alcohol intake: current substance use type: marijuana Smoking Status: Never smoker alcohol intake frequency: holidays/special occasions only Substance Use Type: does not use Exam <Onesimo Cruz DO - Last Filed: 08/04/24 17:58> Initial Vital Signs Initial Vital Signs: Vital Signs Temperature 98.3 F 07/25/24 15:15 Pulse Rate 120 H 07/25/24 15:15 Respiratory Rate 18 07/25/24 15:15 Blood Pressure 142/96 H 07/25/24 15:15 Pulse Oximetry 97 07/25/24 15:15 Oxygen Delivery Method Room Air 07/25/24 15:15 Const General: cooperative, comfortable and No ill appearing HENNV Head: normal to inspection and normocephalic Resp Effort & Inspection: normal respiratory effort Cardio Rate: regular rate GI Inspection: normal to inspection Back/Spine/Pelvis Back: No CVA tenderness Other: Tenderness to palpation bilateral lumbar region Skin General: no rashes or lesions noted Neuro General: patient alert and patient awake <Karen Ko MD - Last Filed: 07/26/24 03:27> Initial Vital Signs Initial Vital Signs: Vital Signs Temperature 98.3 F 07/25/24 15:15 Pulse Rate 120 H 07/25/24 15:15 Respiratory Rate 18 07/25/24 15:15 Blood Pressure 142/96 H 07/25/24 15:15 Pulse Oximetry 97 07/25/24 15:15 Oxygen Delivery Method Room Air 07/25/24 15:15 Course <Onesimo Cruz DO - Last Filed: 08/04/24 17:58> Orders Ordered: Discontinued Medications Hydrocodone Bitart/Acetaminophen (Hydrocodone/Acet 5/325 Tablet) 1 tab PO NOW ONE Stop: 07/25/24 16:58 Last Admin: 07/25/24 17:25 Dose: 1 tab Documented By: HAYDEE Cyclobenzaprine HCl (Cyclobenzaprine 10 Mg Tablet) 10 mg PO NOW ONE Stop: 07/25/24 15:39 Last Admin: 07/25/24 15:55 Dose: 10 mg Documented By: HAYDEE Acetaminophen (Ofirmev) 1,000 mg in 100 mls @ 400 mls/hr IV NOW ONE Stop: 07/25/24 15:52 Last Infusion: 07/25/24 16:14 Dose: Infused Documented By: Admin: 07/25/24 15:55 Dose: 400 mls/hr Documented By: HAYDEE Vital Signs Vital signs: Vital Signs - 8 hr 07/25/24 15:15 07/25/24 15:24 07/25/24 15:24 Temperature 98.3 F Pulse Rate 120 H 129 H Respiratory Rate 18 Blood Pressure 142/96 H 151/107 H Pulse Oximetry 97 96 Oxygen Delivery Method Room Air 07/25/24 17:26 07/25/24 17:27 07/25/24 17:27 Temperature Pulse Rate 107 H 107 H Respiratory Rate Blood Pressure 155/112 H Pulse Oximetry 99 99 Oxygen Delivery Method 07/25/24 17:30 07/25/24 17:30 07/25/24 19:10 Temperature Pulse Rate 92 H Respiratory Rate 19 Blood Pressure 157/95 H Pulse Oximetry 98 Oxygen Delivery Method 07/25/24 19:21 Temperature Pulse Rate 82 Respiratory Rate 22 Blood Pressure 155/69 H Pulse Oximetry 99 Oxygen Delivery Method Room Air <Karen Ko MD - Last Filed: 07/26/24 03:27> Orders Ordered: Discontinued Medications Hydrocodone Bitart/Acetaminophen (Hydrocodone/Acet 5/325 Tablet) 1 tab PO NOW ONE Stop: 07/25/24 16:58 Last Admin: 07/25/24 17:25 Dose: 1 tab Documented By: HAYDEE Cyclobenzaprine HCl (Cyclobenzaprine 10 Mg Tablet) 10 mg PO NOW ONE Stop: 07/25/24 15:39 Last Admin: 07/25/24 15:55 Dose: 10 mg Documented By: HAYDEE Acetaminophen (Ofirmev) 1,000 mg in 100 mls @ 400 mls/hr IV NOW ONE Stop: 07/25/24 15:52 Last Infusion: 07/25/24 16:14 Dose: Infused Documented By: Admin: 07/25/24 15:55 Dose: 400 mls/hr Documented By: HAYDEE Vital Signs Vital signs: Vital Signs - 8 hr 07/25/24 15:15 07/25/24 15:24 07/25/24 15:24 Temperature 98.3 F Pulse Rate 120 H 129 H Respiratory Rate 18 Blood Pressure 142/96 H 151/107 H Pulse Oximetry 97 96 Oxygen Delivery Method Room Air 07/25/24 17:26 07/25/24 17:27 07/25/24 17:27 Temperature Pulse Rate 107 H 107 H Respiratory Rate Blood Pressure 155/112 H Pulse Oximetry 99 99 Oxygen Delivery Method 07/25/24 17:30 07/25/24 17:30 07/25/24 19:10 Temperature Pulse Rate 92 H Respiratory Rate 19 Blood Pressure 157/95 H Pulse Oximetry 98 Oxygen Delivery Method 07/25/24 19:21 Temperature Pulse Rate 82 Respiratory Rate 22 Blood Pressure 155/69 H Pulse Oximetry 99 Oxygen Delivery Method Room Air Medical Decision Making <Onesimo Cruz DO - Last Filed: 08/04/24 17:58> Medical Records Medical records reviewed: Yes I reviewed the patient's medical records. Lab Data Lab results reviewed: Yes I reviewed the patient's lab results. 07/25/24 15:55 07/25/24 15:55 Labs: Lab Results 07/25/24 07/25/24 Range/Units 15:30 15:55 WBC 8.9 (4.5-11.0) X10^3/uL RBC 4.25 (4.0-5.2) X10^6/uL Hgb 12.0 (12.0-16.0) g/dL Hct 35.8 L (36-46) % MCV 84.3 (80-100) fL MCH 28.2 (26-34) PG MCHC 33.5 (30-36) % RDW 15.1 H (11.6-14.8) % Plt Count 380 (150-400) X10^3/uL Neut % (Auto) 59.1 (50-75) % Lymph % (Auto) 29.9 (25-40) % [place] % (Auto) 8.8 (3-14) % Eos % (Auto) 1.7 L (2-4) % Baso % (Auto) 0.5 (0-2) % Neut # (Auto) 5300 (4746-3870) /uL Lymph # (Auto) 2700 (1083-5667) /uL [place] # (Auto) 800 (0-900) /uL Eos # (Auto) 100 (0-450) /uL Baso # (Auto) 0 (0-100) /uL Sodium 137 (137-145) mmol/L Potassium 3.6 (3.4-5.1) mmol/L Chloride 107 (98-107) mmol/L Carbon Dioxide 22 (22-32) mmol/L BUN 9 (7-17) mg/dL Creatinine 0.57 (0.52-1.04) mg/dL Estimated GFR > 60 (>60) mL/min BUN/Creatinine Ratio 15.8 (6-22) Glucose 125 H (70-100) mg/dL Calcium 9.4 (8.4-10.2) mg/dL Total Bilirubin 1.3 (0.2-1.3) mg/dL AST 33 (14-36) IU/L ALT 43 H (<35) IU/L Alkaline Phosphatase 65 (38-126) U/L Total Protein 7.1 (6.3-8.2) g/dL Albumin 4.1 (3.5-5.0) g/dL Globulin 3.0 (1.7-4.1) g/dL Albumin/Globulin Ratio 1.4 (1.0-2.8) Lipase 99 (23-300) U/L Ur Bilirubin Confirm Negative (Negative) Urine RBC 0-1/hpf (0-5/HPF) Urine WBC 1-5/hpf (0-5/HPF) Ur Squamous Epith Cells 1-5 /hpf (0-5/HPF) Urine Bacteria Moderate (10-30) H (None) Urine Mucus 1+ H (Negative) Ur Culture Indicated? Cult not indicated Vol Urine Centrifuged 10ml (spun) Urine Dip Bedside Urine Glucose Negative Bedside Urine Bilirubin + 1 Bedside Urine Ketone - Negative Urine Specific [place] 1.025 Bedside Urine Occult Blood - Negative Bedside Urine pH 6.0 Bedside Urine Protein +/- 15 Bedside Urine Urobilinogen - Negative Bedside Urine Nitrite - Negative Bedside Urine Leukocytes +/- 15 Esterase Point of care testing: Urine Dip Bedside Urine Glucose Negative Bedside Urine Bilirubin + 1 Bedside Urine Ketone - Negative Urine Specific [place] 1.025 Bedside Urine Occult Blood - Negative Bedside Urine pH 6.0 Bedside Urine Protein +/- 15 Bedside Urine Urobilinogen - Negative Bedside Urine Nitrite - Negative Bedside Urine Leukocytes +/- 15 Esterase MDM Narrative Medical decision making narrative: Patient was abdominal pain that she presents with yesterday has actually resolved. She was having some nausea but no vomiting. Her symptoms today are lower back pain. Her urinalysis is not consistent with a UTI. I have low suspicion this is pyelonephritis. She was no skin changes over the area. No trauma. Received medications although she reports did not help her symptoms. She was afebrile. Patient states that she does not think that this is muscular. States it hurts too much to be muscular. Will obtain a CT scan to confirm that there was no intra-abdominal pathology. Care turned over to Dr. Ko to follow up and disposition. <Karen Ko MD - Last Filed: 07/26/24 03:27> Lab Data Labs: Lab Results 07/25/24 07/25/24 Range/Units 15:30 15:55 WBC 8.9 (4.5-11.0) X10^3/uL RBC 4.25 (4.0-5.2) X10^6/uL Hgb 12.0 (12.0-16.0) g/dL Hct 35.8 L (36-46) % MCV 84.3 (80-100) fL MCH 28.2 (26-34) PG MCHC 33.5 (30-36) % RDW 15.1 H (11.6-14.8) % Plt Count 380 (150-400) X10^3/uL Neut % (Auto) 59.1 (50-75) % Lymph % (Auto) 29.9 (25-40) % [place] % (Auto) 8.8 (3-14) % Eos % (Auto) 1.7 L (2-4) % Baso % (Auto) 0.5 (0-2) % Neut # (Auto) 5300 (9373-0384) /uL Lymph # (Auto) 2700 (7762-6202) /uL [place] # (Auto) 800 (0-900) /uL Eos # (Auto) 100 (0-450) /uL Baso # (Auto) 0 (0-100) /uL Sodium 137 (137-145) mmol/L Potassium 3.6 (3.4-5.1) mmol/L Chloride 107 (98-107) mmol/L Carbon Dioxide 22 (22-32) mmol/L BUN 9 (7-17) mg/dL Creatinine 0.57 (0.52-1.04) mg/dL Estimated GFR > 60 (>60) mL/min BUN/Creatinine Ratio 15.8 (6-22) Glucose 125 H (70-100) mg/dL Calcium 9.4 (8.4-10.2) mg/dL Total Bilirubin 1.3 (0.2-1.3) mg/dL AST 33 (14-36) IU/L ALT 43 H (<35) IU/L Alkaline Phosphatase 65 (38-126) U/L Total Protein 7.1 (6.3-8.2) g/dL Albumin 4.1 (3.5-5.0) g/dL Globulin 3.0 (1.7-4.1) g/dL Albumin/Globulin Ratio 1.4 (1.0-2.8) Lipase 99 (23-300) U/L Ur Bilirubin Confirm Negative (Negative) Urine RBC 0-1/hpf (0-5/HPF) Urine WBC 1-5/hpf (0-5/HPF) Ur Squamous Epith Cells 1-5 /hpf (0-5/HPF) Urine Bacteria Moderate (10-30) H (None) Urine Mucus 1+ H (Negative) Ur Culture Indicated? Cult not indicated Vol Urine Centrifuged 10ml (spun) Urine Dip Bedside Urine Glucose Negative Bedside Urine Bilirubin + 1 Bedside Urine Ketone - Negative Urine Specific [place] 1.025 Bedside Urine Occult Blood - Negative Bedside Urine pH 6.0 Bedside Urine Protein +/- 15 Bedside Urine Urobilinogen - Negative Bedside Urine Nitrite - Negative Bedside Urine Leukocytes +/- 15 Esterase Point of care testing: Urine Dip Bedside Urine Glucose Negative Bedside Urine Bilirubin + 1 Bedside Urine Ketone - Negative Urine Specific [place] 1.025 Bedside Urine Occult Blood - Negative Bedside Urine pH 6.0 Bedside Urine Protein +/- 15 Bedside Urine Urobilinogen - Negative Bedside Urine Nitrite - Negative Bedside Urine Leukocytes +/- [address] scan - abdomen/pelvis: Radiologist's Impression: PROCEDURE: CT ABDOMEN PELVIS W CON INDICATIONS: Bilateral flank pain TECHNIQUE: After the administration of intravenous contrast, axial sections acquired from the lung bases to the pubic symphysis. Coronal and sagittal reformats were performed. For radiation dose reduction, the following was used: automated exposure control, adjustment of mA and/or kV according to patient size. COMPARISON: [facility], CT, CT ABDOMEN PELVIS W CON, 07/17/2024, 23:40. FINDINGS: Lower thorax: The lung bases are clear. Heart size normal. No hiatal hernia. Liver: The liver is diffusely decreased in attenuation without focal mass lesion. Additional fatty focal infiltration noted adjacent to the falciform ligament Biliary system: Cholecystectomy. No intra or extrahepatic bile duct dilation. Pancreas: Unremarkable without mass or inflammation evident. Spleen: 4.9 cm splenic cyst with mural calcification remains unchanged Adrenals: Normal morphology and density. Reproductive system: Hysterectomy. Urinary system: Normal renal size and attenuation. No renal calculi, hydronephrosis, or solid mass present. Urinary bladder unremarkable. Gastrointestinal system: Prior gastric surgery. Multiple diverticula arise from the sigmoid colon without evidence of diverticulitis. Appendix: No findings to suggest acute appendicitis. Peritoneal spaces: No mesenteric or retroperitoneal adenopathy. No free air. No free fluid. Vasculature: The IVC, aorta and iliac vasculature are unremarkable. Abdominal wall: Abdominal wall intact without evidence of ventral or inguinal hernias. Musculoskeletal: Normal bone mineralization. No acute fractures. IMPRESSION: No acute CT findings in the abdomen and pelvis. No renal calculi or hydronephrosis. No pyelonephritis Sigmoid diverticulosis without evidence of diverticulitis. Additional chronic findings as above Approved by: Romel Wills M.D. on 07/25/2024 at 18:09 [facility] Narrative Medical decision making narrative: Patient was abdominal pain that she presents with yesterday has actually resolved. She was having some nausea but no vomiting. Her symptoms today are lower back pain. Her urinalysis is not consistent with a UTI. I have low suspicion this is pyelonephritis. She was no skin changes over the area. No trauma. Received medications although she reports did not help her symptoms. She was afebrile. Patient states that she does not think that this is muscular. States it hurts too much to be muscular. Will obtain a CT scan to confirm that there was no intra-abdominal pathology. Care turned over to Dr. Ko to follow up and disposition. Dr. Ko -care of patient signed out to me by daytime physician. Independent review of chart inpatient performed by myself. Laboratory work shows no acute findings. CT scan shows chronic findings without any acute evidence of pyelonephritis, stone, other significant pathology. Patient reassessed, she was still complaining of lumbar back pain. She states that she was very concerned that she has a kidney infection brewing, stating that the last time she had low back pain she was told it was ?nothing?, but then several days later she went to a different hospital and was told that she was only days away from going septic and had to stay in the hospital for several days. Patient does have bacteria in her urine. Her back pain is more localized to the lower lumbar regions and not the flanks, however given patient's bacteriuria and reported history of sepsis from pyelonephritis empiric antibiotics we will be sent to the pharmacy. Patient very frustrated when told normal CT results. Her IV was removed, but patient left prior to receiving any discharge paperwork. Discharge Plan Departure Patient Disposition: Home Clinical Impression: Lower back pain Prescriptions: New cefpodoxime 200 mg tablet 200 mg PO Q12H Qty: 20 0RF Rx Instructions: must administer with a meal/food No Action topiramate 50 mg tablet 50 mg PO BID estradiol 0.5 mg tablet 0.5 mg PO DAILY Qty: 30 3RF sumatriptan succinate 50 mg tablet 50 mg PO Q2-4H PRN (Reason: migraine headache) Qty: 9 0RF Rx Instructions: do not exceed 4 doses per 24 hrs metoclopramide HCl [Reglan] 5 mg Tablet 5 mg PO QAC Rx Instructions: administer 30 minutes before meals alprazolam 0.5 mg tablet 0.5 mg PO BID PRN (Reason: Anxiety) sumatriptan succinate 50 mg tablet 50 mg PO Q2-4H PRN (Reason: migraine) ondansetron HCl 4 mg tablet 4 mg PO Q8H PRN (Reason: nausea/vomiting) Referrals: Sarah Dunbar MD [Primary Care Provider] - Stand Alone Forms: Patient Portal/API/Survey
[2024-07-25] MEDS: CYCLOBENZAPRINE 10 MG TABLET PO (15:55)
[2024-07-25] MEDS: ACETAMINOPHEN IV 1,000 MG/100 ML VIAL 400 MG IV (15:55)
[2024-07-25 16:02] LABS: Ictotest Urine Negative (Negative)
[2024-07-25 16:08] LABS: RBC Urine 0-1/HPF (0-5/HPF); Urine Volume 10mL (spun)
[2024-07-25 16:09] LABS: Bacteria Urine Moderate (10-30); Culture Indicated Urine Cult Not Indicated; Mucus Urine 1+ (Negative); Squamous Epithelial Cell Urine 1-5 /HPF (0-5/HPF); WBC Urine 1-5/HPF (0-5/HPF)
[2024-07-25 16:10] LABS: Add Manual Diff / Slide Review NO; Basophils Absolute Auto 0 /uL (0-100); Basophils Percent Auto 0.5 % (0-2); Eosinophils Absolute Auto 100 /uL (0-450); Eosinophils Percent Auto 1.7 % (2-4); Hematocrit 35.8 % (36-46); Lymphocytes Absolute Auto 2700 /uL (1100-4500); Lymphocytes Percent Auto 29.9 % (25-40); Mean Corpuscular HGB Conc 33.5 % (30-36); Mean Corpuscular Hemoglobin 28.2 PG (26-34); Mean Corpuscular Volume 84.3 fL (80-100); Monocytes Absolute Auto 800 /uL (0-900); Monocytes Percent Auto 8.8 % (3-14); Neutrophils Absolute Auto 5300 /uL (1500-7000); Neutrophils Percent Auto 59.1 % (50-75); Platelet Count 380 X10^3/uL (150-400); Red Blood Cell Count 4.25 X10^6/uL (4.0-5.2); Red Cell Distribution Width 15.1 % (11.6-14.8); White Blood Cell Count 8.9 X10^3/uL (4.5-11.0)
[2024-07-25 16:20] LABS: Alanine Aminotransferase 43 IU/L (<35); Albumin 4.1 g/dL (3.5-5.0); Albumin Globulin Ratio 1.4 (1.0-2.8); Alkaline Phosphatase 65 U/L (38-126); Aspartate Aminotransferase 33 IU/L (14-36); BUN Creatinine Ratio 15.8 (6-22); Bilirubin Total 1.3 mg/dL (0.2-1.3); Blood Urea Nitrogen 9 mg/dL (7-17); Calcium 9.4 mg/dL (8.4-10.2); Carbon Dioxide 22 mmol/L (22-32); Chloride 107 mmol/L (98-107); Estimated Glomerular Filt Rate > 60 mL/min (>60); Glucose 125 mg/dL (70-100); HEMOLYSIS < 15 (0-50); Lipase 99 U/L (23-300); Potassium 3.6 mmol/L (3.4-5.1); Sodium 137 mmol/L (137-145); Total Protein 7.1 g/dL (6.3-8.2)
[2024-07-25] MEDS: HYDROCODONE/ACET 5/325 TABLET 1 TAB PO (17:25)
--- NOTE | 2024-07-25 17:42 | DI.CT.S_ITS ---
PROCEDURE: CT ABDOMEN PELVIS W CON INDICATIONS: Bilateral flank pain TECHNIQUE: After the administration of intravenous contrast, axial sections acquired from the lung bases to the pubic symphysis. Coronal and sagittal reformats were performed. For radiation dose reduction, the following was used: automated exposure control, adjustment of mA and/or kV according to patient size. COMPARISON: [facility], CT, CT ABDOMEN PELVIS W CON, 07/17/2024, 23:40. FINDINGS: Lower thorax: The lung bases are clear. Heart size normal. No hiatal hernia. Liver: The liver is diffusely decreased in attenuation without focal mass lesion. Additional fatty focal infiltration noted adjacent to the falciform ligament Biliary system: Cholecystectomy. No intra or extrahepatic bile duct dilation. Pancreas: Unremarkable without mass or inflammation evident. Spleen: 4.9 cm splenic cyst with mural calcification remains unchanged Adrenals: Normal morphology and density. Reproductive system: Hysterectomy. Urinary system: Normal renal size and attenuation. No renal calculi, hydronephrosis, or solid mass present. Urinary bladder unremarkable. Gastrointestinal system: Prior gastric surgery. Multiple diverticula arise from the sigmoid colon without evidence of diverticulitis. Appendix: No findings to suggest acute appendicitis. Peritoneal spaces: No mesenteric or retroperitoneal adenopathy. No free air. No free fluid. Vasculature: The IVC, aorta and iliac vasculature are unremarkable. Abdominal wall: Abdominal wall intact without evidence of ventral or inguinal hernias. Musculoskeletal: Normal bone mineralization. No acute fractures. IMPRESSION: No acute CT findings in the abdomen and pelvis. No renal calculi or hydronephrosis. No pyelonephritis Sigmoid diverticulosis without evidence of diverticulitis. Additional chronic findings as above Approved by: Romel Wills M.D. on 07/25/2024 at 18:09
--- NOTE | 2024-07-25 18:45 | PC.NURSE ---
Pt stating she is still in pain; pt asking to leave. Pt encouraged to stay for radiology read. Pt agreed. Bed locked and low; call romo in reach. Pt independent in ADLs
== END 2024-07-25 20:16 | disposition home or self-care (01) ==
PROVIDERS: Emergency Provider Emergency Medicine; PCP Student in an Organized Health Care Education/Training Program
DX: M54.50 Low back pain, unspecified (principal); R11.0 Nausea
CPT/HCPCS: 36415; 74177; 80053; 81003; 81015; 83690; 85025; 96365; 99284; J0134; Q9967

== ENCOUNTER 2024-08-20 00:39 | Emergency (ER) | payer OTHER, SELFPAY ==
[2024-08-20 00:47] VITALS: BP 125/86; PULSE 80; RESP 20; TEMP 37; O2SAT 100; BMI 29.8
--- NOTE | 2024-08-20 00:50 | ED_ITS ---
HPI - Abdominal Pain General Chief Complaint: Nausea/Vomiting/Diarrhea Stated Complaint: GASTRIC MIGRAINE Time Seen by Provider: 08/20/24 00:50 History of Present Illness HPI narrative: 43-year-old female reports history of gastric migraine, has had multiple years of intermittent sudden onset nausea and vomiting, most recely saw [facility] GI Dr. Cabrera earlier this week, no new diagnoses or therapies, still taking maintenance Topamax and sumatriptan and Reglan medications, anticipated EGD still to be scheduled, prior EGD apparently unrevealing at [facility] 2 years ago, prior remote cholecystectomy, no history of diabetes/gastroparesis, denies knowledge of any previous diagnosis Crohn's disease or ulcerative colitis, has recurrent random episodes severe nausea and vomiting for a number of years, no PEG tube or feeding tubes, no Port-A-Cath site, was doing well yesterday, however overnight has had multiple episodes of nonbloody emesis, with some epigastric discomfort, no diarrhea. He is taking her usual Reglan maintenance regimen, no missed doses. With her flares she states that she is usually treated with fluids, Dilaudid, Haldol. She arrived by EMS. Most recent GI symptoms flare treated here in the emergency department last month with Dilaudid and droperidol. Related Data Home Medications Medication Instructions Recorded Confirmed alprazolam 0.5 mg tablet 0.5 mg PO BID PRN Anxiety 05/06/23 07/05/24 ondansetron HCl 4 mg tablet 4 mg PO Q8H PRN nausea/vomiting 05/10/24 07/24/24 sumatriptan succinate 50 mg tablet 50 mg PO Q2-4H PRN migraine 05/10/24 07/05/24 topiramate 50 mg tablet 50 mg PO BID 07/05/24 metoclopramide HCl 5 mg tablet 5 mg PO QAC 07/24/24 07/24/24 (Reglan) Previous Rx's Medication Instructions Recorded sumatriptan succinate 50 mg tablet 50 mg PO Q2-4H PRN migraine 04/28/24 headache #9 tabs estradiol 0.5 mg tablet 0.5 mg PO DAILY #30 tabs 07/05/24 cefpodoxime 200 mg tablet 200 mg PO Q12H #20 tabs 07/25/24 Allergies Allergy/AdvReac Type Severity Reaction Status Date / Time gluten Allergy Celiac Verified 07/25/24 15:15 coconut AdvReac Intermediate Hives Verified 07/25/24 15:15 NSAIDS (Non-Steroidal AdvReac Mild Gastrointestinal Verified 07/25/24 15:15 Anti-Inflamma Upset benzonatate AdvReac Unknown Hives Verified 07/25/24 15:15 [From Tessalon Perles] escitalopram [From Lexapro] AdvReac Unknown Hallucinati Verified 07/25/24 15:15 ng Review of Systems Review of Systems Narrative: see HPI Patient History Medical History Left corneal abrasion Headache Polycystic ovary disease Celiac disease GERD with apnea Hypertension Bipolar disorder Surgical History Status post tubal ligation History of section H/O abdominoplasty H/O oophorectomy H/O gastric sleeve History of cholecystectomy History of appendectomy Social History marital status: household members: significant other and children lives independently: Yes occupational status: employed Smoking Status: Never smoker alcohol intake: current substance use type: marijuana Smoking Status: Never smoker alcohol intake frequency: holidays/special occasions only Exam Narrative Exam Narrative: GENERAL: Well-developed patient, in mild distress. HEAD: Atraumatic. Normocephalic. EYES: Pupils equal round and reactive. Extraocular motions intact. No scleral icterus. No injection or drainage. ENT: Nose without bleeding, purulent drainage. Throat without erythema, tonsillar hypertrophy or exudate. Airway patent. NECK: Trachea midline. Non tender CARDIOVASCULAR: Regular rate and rhythm without murmurs, gallops, or rubs. RESPIRATORY: Clear to auscultation. Breath sounds equal bilaterally. No wheezes, rales, or rhonchi. GASTROINTESTINAL: Abdomen soft, non-tender, nondistended. EXTREMITIES: No edema or joint tenderness. BACK: Nontender without deformity or crepitance. No flank tenderness. NEURO: AOx3. Motor functions grossly nonfocal SKIN: No rash or erythema of visible areas Initial Vital Signs Initial Vital Signs: Vital Signs Temperature 98.6 F 08/20/24 00:47 Pulse Rate 80 08/20/24 00:47 Respiratory Rate 20 08/20/24 00:47 Blood Pressure 125/86 08/20/24 00:47 Pulse Oximetry 100 08/20/24 00:47 Oxygen Delivery Method Room Air 08/20/24 00:47 Course Orders Ordered: ED Orders 08/20/24 00:52 Complete Blood Count AUTO DIFF Stat Comprehensive Metabolic Panel Stat HCG Quantitative /Beta subunit Stat Lipase Stat Discontinued Medications Diphenhydramine HCl (Diphenhydramine 50 Mg/Ml Vial) 50 mg IV NOW ONE Stop: 08/20/24 00:57 Last Admin: 08/20/24 01:04 Dose: 50 mg Droperidol (Droperidol 5 Mg/2 Ml Vial) 1.25 mg IV NOW ONE Stop: 08/20/24 00:57 Haloperidol (Haloperidol 5 Mg/Ml Vial) 5 mg IV NOW ONE Stop: 08/20/24 01:02 Last Admin: 08/20/24 01:04 Dose: 5 mg Hydromorphone HCl (Hydromorphone 1 Mg Inj) 1 mg IV NOW ONE Stop: 08/20/24 00:54 Last Admin: 08/20/24 01:04 Dose: 1 mg Sodium Chloride (Normal Saline 0.9%) 1,000 mls @ 1,000 mls/hr IV BOLUS ONE Stop: 08/20/24 02:03 Last Infusion: 08/20/24 02:15 Dose: Infused Vital Signs Vital signs: Vital Signs - 8 hr 08/20/24 00:47 08/20/24 01:22 08/20/24 01:30 Temperature 98.6 F Pulse Rate 80 55 L 54 L Respiratory Rate 20 14 14 Blood Pressure 125/86 Pulse Oximetry 100 96 97 Oxygen Delivery Method Room Air 08/20/24 01:31 08/20/24 01:31 08/20/24 02:00 Temperature Pulse Rate 53 L Respiratory Rate 12 Blood Pressure 135/72 142/69 H Pulse Oximetry 99 Oxygen Delivery Method Room Air 08/20/24 02:00 08/20/24 02:30 08/20/24 02:30 Temperature Pulse Rate 63 49 L Respiratory Rate 17 11 L Blood Pressure 134/74 Pulse Oximetry 99 99 Oxygen Delivery Method MDM - Abdominal Pain Lab Data Attestation: I reviewed the patient's lab results. Lab results narrative: White blood cell count 93478, hemoglobin 11.2, platelets normal. Basic metabolic panel normal. Liver functions unremarkable, lipase normal. HCG negative 08/20/24 00:52 08/20/24 00:52 Labs: Lab Results 08/20/24 Range/Units 00:52 WBC 11.9 H (4.5-11.0) X10^3/uL RBC 4.14 (4.0-5.2) X10^6/uL Hgb 11.2 L (12.0-16.0) g/dL Hct 34.2 L (36-46) % MCV 82.5 (80-100) fL MCH 27.1 (26-34) PG MCHC 32.8 (30-36) % RDW 14.5 (11.6-14.8) % Plt Count 407 H (150-400) X10^3/uL Neut % (Auto) 67.2 (50-75) % Lymph % (Auto) 23.8 L (25-40) % [place] % (Auto) 7.9 (3-14) % Eos % (Auto) 0.7 L (2-4) % Baso % (Auto) 0.4 (0-2) % Neut # (Auto) 8000 H (4505-5034) /uL Lymph # (Auto) 2800 (7648-7642) /uL [place] # (Auto) 900 (0-900) /uL Eos # (Auto) 100 (0-450) /uL Baso # (Auto) 100 (0-100) /uL Sodium 136 L (137-145) mmol/L Potassium 3.6 (3.4-5.1) mmol/L Chloride 106 (98-107) mmol/L Carbon Dioxide 24 (22-32) mmol/L BUN 11 (7-17) mg/dL Creatinine 0.54 (0.52-1.04) mg/dL Estimated GFR > 60 (>60) mL/min BUN/Creatinine Ratio 20.4 (6-22) Glucose 133 H (70-100) mg/dL Calcium 9.2 (8.4-10.2) mg/dL Total Bilirubin 0.9 (0.2-1.3) mg/dL AST 29 (14-36) IU/L ALT 27 (<35) IU/L Alkaline Phosphatase 75 (38-126) U/L Total Protein 7.3 (6.3-8.2) g/dL Albumin 4.2 (3.5-5.0) g/dL Globulin 3.1 (1.7-4.1) g/dL Albumin/Globulin Ratio 1.4 (1.0-2.8) Lipase 83 (23-300) U/L HCG, Quant < 2.39 mIU/mL [facility] Narrative Medical decision making narrative: 44-year-old female with history of recurrent vomiting, reports history of gastric migraine and in prior visits called her diagnosis abdominal migraine, recently seen by [facility], EGD to be scheduled, today had multiple episodes vomiting nonbloody, typical of her flares of abdominal/gastric migraine. Unresponsive to her usual regimen of Topamax, tried sumatriptan without improvement. Taking Reglan, as needed ondansetron. Retching on her gurney but no emesis visible in bag. Afebrile, sirs screen negative. Abdomen without significant tenderness but difficult due to frequent retching and truncal movements. Labs pending. Last responded to IV Dilaudid and IV droperidol from visit here last month. Those medications ordered. Droperidol apparently not available, we will substitute with Haldol, patient has apparently had haloperidol in the past as well. We will give with IV Benadryl. IV Dilaudid also ordered. IV fluid bolus. Labs pending. We will hold on advanced abdominal imaging at this time pending lab studies and response to therapy. White blood cell count 93710, hCG negative, electrolytes unremarkable, normal renal function. Symptoms better, patient took oral fluids, ambulated. Discharged home, instructed to continue her same home regimen of Topamax and sumatriptan and Reglan, follow up with MARZENA Hsieh as scheduled, consider contacting GI office during regular hours later today to see if there can be earlier expedited follow up EGD and workup and recommendations. Return precautions discussed Discharge Plan Departure Patient Disposition: Home Clinical Impression: Nausea & vomiting Activity Restrictions/Additional Instructions: History of recurrent nausea and vomiting, variably characterized as ?abdominal migraine? or as ?gastric migraine? in recent ED visits, seen by gastroenterology specialist Мария earlier this week, no new medications, awaiting outpatient upper endoscopy, taking same medical regimen of Topamax and Imitrex and Reglan. Now with another exacerbation of recurrent nausea or vomiting. IV Dilaudid and IV haloperidol were given, similar regimen to treatment given during ED flare here last month in July here. Symptoms improved. Continue taking your regular medication maintenance regimen. Follow up with your GI specialist as planned. Consider contacting your GI specialist during regular hours later today, as you had another ED visit after your consultation, to see if upper endoscopy and further GI consultation recommendations could be expedited. Prescriptions: No Action topiramate 50 mg tablet 50 mg PO BID estradiol 0.5 mg tablet 0.5 mg PO DAILY Qty: 30 3RF sumatriptan succinate 50 mg tablet 50 mg PO Q2-4H PRN (Reason: migraine headache) Qty: 9 0RF Rx Instructions: do not exceed 4 doses per 24 hrs metoclopramide HCl [Reglan] 5 mg Tablet 5 mg PO QAC Rx Instructions: administer 30 minutes before meals alprazolam 0.5 mg tablet 0.5 mg PO BID PRN (Reason: Anxiety) sumatriptan succinate 50 mg tablet 50 mg PO Q2-4H PRN (Reason: migraine) ondansetron HCl 4 mg tablet 4 mg PO Q8H PRN (Reason: nausea/vomiting) cefpodoxime 200 mg tablet 200 mg PO Q12H Qty: 20 0RF Rx Instructions: must administer with a meal/food Referrals: Sarah Dunbar MD [Primary Care Provider] - Stand Alone Forms: Patient Portal/API/Survey
[2024-08-20] MEDS: diphenhydrAMINE 50 MG/ML VIAL IV (01:04)
[2024-08-20] MEDS: HYDROMORPHONE 1 MG INJ IV (01:04)
[2024-08-20] MEDS: HALOPERIDOL 5 MG/ML VIAL IV (01:04)
[2024-08-20 01:07] LABS: Add Manual Diff / Slide Review NO; Basophils Absolute Auto 100 /uL (0-100); Basophils Percent Auto 0.4 % (0-2); Eosinophils Absolute Auto 100 /uL (0-450); Eosinophils Percent Auto 0.7 % (2-4); Hematocrit 34.2 % (36-46); Hemoglobin 11.2 g/dL (12.0-16.0); Lymphocytes Absolute Auto 2800 /uL (1100-4500); Lymphocytes Percent Auto 23.8 % (25-40); Mean Corpuscular HGB Conc 32.8 % (30-36); Mean Corpuscular Hemoglobin 27.1 PG (26-34); Mean Corpuscular Volume 82.5 fL (80-100); Monocytes Absolute Auto 900 /uL (0-900); Monocytes Percent Auto 7.9 % (3-14); Neutrophils Absolute Auto 8000 /uL (1500-7000); Neutrophils Percent Auto 67.2 % (50-75); Platelet Count 407 X10^3/uL (150-400); Red Blood Cell Count 4.14 X10^6/uL (4.0-5.2); Red Cell Distribution Width 14.5 % (11.6-14.8); White Blood Cell Count 11.9 X10^3/uL (4.5-11.0)
[2024-08-20] MEDS: SODIUM CHLORIDE 0.9% 1,000 ML 1000 ML IV (01:13)
[2024-08-20 01:21] LABS: Alanine Aminotransferase 27 IU/L (<35); Albumin 4.2 g/dL (3.5-5.0); Albumin Globulin Ratio 1.4 (1.0-2.8); Alkaline Phosphatase 75 U/L (38-126); Aspartate Aminotransferase 29 IU/L (14-36); BUN Creatinine Ratio 20.4 (6-22); Bilirubin Total 0.9 mg/dL (0.2-1.3); Blood Urea Nitrogen 11 mg/dL (7-17); Calcium 9.2 mg/dL (8.4-10.2); Carbon Dioxide 24 mmol/L (22-32); Chloride 106 mmol/L (98-107); Estimated Glomerular Filt Rate > 60 mL/min (>60); Globulin 3.1 g/dL (1.7-4.1); Glucose 133 mg/dL (70-100); HEMOLYSIS < 15 (0-50); Lipase 83 U/L (23-300); Potassium 3.6 mmol/L (3.4-5.1); Sodium 136 mmol/L (137-145); Total Protein 7.3 g/dL (6.3-8.2)
[2024-08-20 01:22] VITALS: PULSE 55; RESP 14; O2SAT 96
[2024-08-20 01:30] VITALS: PULSE 54; RESP 14; O2SAT 97
[2024-08-20 01:31] VITALS: BP 135/72; PULSE 53; RESP 12; O2SAT 99
[2024-08-20 01:49] LABS: HCG Quantitative /Beta subunit < 2.39 mIU/mL
[2024-08-20 02:00] VITALS: BP 142/69; PULSE 63; RESP 17; O2SAT 99
--- NOTE | 2024-08-20 02:17 | PC.NURSE ---
Pt resting quietly with eyes closed, resps even and not labored, rouses easily to verbal stimuli. No distress noted at this time. Remiains connected to cardiac, resp, blood pressure, and pulse ox monitors with alarms on and audible. Call light within reach. PO fluids provided and pt taking sips without difficulty or complaint.
[2024-08-20 02:30] VITALS: BP 134/74; PULSE 49; RESP 11; O2SAT 99
== END 2024-08-20 03:03 | disposition home or self-care (01) ==
PROVIDERS: Emergency Provider Emergency Medicine; PCP Student in an Organized Health Care Education/Training Program
DX: R11.2 Nausea with vomiting, unspecified (principal)
CPT/HCPCS: 36415; 80053; 83690; 84702; 85025; 96360; 96374; 96375; 99284; J1171; J1200; J1630

== ENCOUNTER 2024-09-04 15:45 | Observation (INO) | payer OTHER, SELFPAY ==
[2024-09-04 16:11] VITALS: BP 161/113; PULSE 97; RESP 24; TEMP 36.3; O2SAT 99; BMI 29.0
--- NOTE | 2024-09-04 16:15 | DI.RAD.S_ITS ---
PROCEDURE: XR CHEST 1V INDICATIONS: chest pain TECHNIQUE: One view of the chest was acquired. COMPARISON: [facility], CR, XR CHEST 1 VIEW, 02/05/2022, 13:51. FINDINGS: Surgical changes and devices: None. Lungs and pleura: No dense consolidation or pleural effusions. Mediastinum: Normal heart size Bones and chest wall: Unremarkable IMPRESSION: No acute radiographic abnormality on this single view study Dictated by: Kartik Morrison M.D. on 09/04/2024 at 16:21 Approved by: Kartik Morrison M.D. on 09/04/2024 at 16:22
--- NOTE | 2024-09-04 16:23 | PC.NURSE ---
Patient prescribed aprepitant by GI, takes over 3 days, today was 3rd day. States did not help. States zofran does not work for her nausea.
--- NOTE | 2024-09-04 16:27 | EKG_ITS ---
[address] [address] Test Date: 2024-09-04 Pat Name: Janet Escobar Department: [facility] Room: Gender: Female Design Editor: OLI : 1980 Requested By: Order Number: [id number] Reading MD: Chris Starks Measurements Intervals [place] Rate: 91 P: 71 UT: 144 QRS: 88 QRSD: 76 T: 61 QT: 364 QTc: 447 Interpretive Statements Normal sinus rhythm Septal infarct , age undetermined Electronically Signed On 09-09-2024 9:08:18 PST by Chris Starks
[2024-09-04 16:42] LABS: Add Manual Diff / Slide Review NO; Basophils Absolute Auto 100 /uL (0-100); Basophils Percent Auto 0.4 % (0-2); Eosinophils Absolute Auto 100 /uL (0-450); Eosinophils Percent Auto 0.7 % (2-4); Hematocrit 37.5 % (36-46); Lymphocytes Absolute Auto 2500 /uL (1100-4500); Lymphocytes Percent Auto 19.2 % (25-40); Mean Corpuscular HGB Conc 32.1 % (30-36); Mean Corpuscular Hemoglobin 26.2 PG (26-34); Mean Corpuscular Volume 81.6 fL (80-100); Monocytes Absolute Auto 800 /uL (0-900); Monocytes Percent Auto 6.3 % (3-14); Neutrophils Absolute Auto 9400 /uL (1500-7000); Neutrophils Percent Auto 73.4 % (50-75); Platelet Count 429 X10^3/uL (150-400); Prothrombin Time 11.2 SECONDS (9.4-12.5); Red Blood Cell Count 4.59 X10^6/uL (4.0-5.2); Red Cell Distribution Width 14.5 % (11.6-14.8); White Blood Cell Count 12.9 X10^3/uL (4.5-11.0)
[2024-09-04 16:44] LABS: PTT Partial Thromboplastin Tim 29 SECONDS (25.1-36.5)
[2024-09-04 16:46] LABS: Alanine Aminotransferase 27 IU/L (<35); Albumin 4.7 g/dL (3.5-5.0); Albumin Globulin Ratio 1.5 (1.0-2.8); Alkaline Phosphatase 92 U/L (38-126); Aspartate Aminotransferase 26 IU/L (14-36); BUN Creatinine Ratio 13.6 (6-22); Bilirubin Total 0.5 mg/dL (0.2-1.3); Blood Urea Nitrogen 8 mg/dL (7-17); Calcium 9.5 mg/dL (8.4-10.2); Carbon Dioxide 24 mmol/L (22-32); Chloride 106 mmol/L (98-107); Creatine Kinase 39 U/L (30-135); Estimated Glomerular Filt Rate > 60 mL/min (>60); Globulin 3.1 g/dL (1.7-4.1); Glucose 108 mg/dL (70-100); Lipase 142 U/L (23-300); Magnesium 1.8 mg/dL (1.6-2.3); Sodium 138 mmol/L (137-145); Total Protein 7.8 g/dL (6.3-8.2)
[2024-09-04 17:11] LABS: HEMOLYSIS < 15 (0-50); NT-proBNP (BNP-Adult 18+) 31 pg/mL (<125); Troponin I < 0.012 ng/mL (0.01-0.034)
[2024-09-04 18:26] VITALS: BP 163/74; PULSE 78; RESP 20; TEMP 36.8; O2SAT 100
[2024-09-04 18:54] LABS: Troponin I < 0.012 ng/mL (0.01-0.034)
[2024-09-04 19:27] VITALS: BP 170/100; PULSE 76; RESP 24; O2SAT 100
--- NOTE | 2024-09-04 19:40 | ED.CHESTPAIN ---
HPI - Chest Pain General Chief Complaint: Chest Pain Stated Complaint: vomiting, abd px Time Seen by Provider: 09/04/24 19:27 Source: patient Mode of arrival: Ambulatory History of Present Illness HPI narrative: Patient was a 43-year-old female. States she was a diagnosis of ?abdominal migraines? I have seen here in the emergency department in the past. Has a history of cyclic vomiting. States that she was here because of her abdominal pain and vomiting. She has been taking Reglan at home without any improvement of her symptoms. She states that when her symptoms get like this it is difficult for her to take any medications at home were to maintain hydration. In the past droperidol and Dilaudid have helped her symptoms. She has been seen by a GI doctor. She was tried all of the medications prescribed by the GI doctor without improvement of symptoms. She was also describing chest discomfort what she normally does not have with her abdominal symptoms. Related Data Home Medications Medication Instructions Recorded Confirmed alprazolam 0.5 mg tablet 0.5 mg PO BID PRN Anxiety 05/06/23 08/24/24 ondansetron HCl 4 mg tablet 4 mg PO Q8H PRN nausea/vomiting 05/10/24 08/24/24 sumatriptan succinate 50 mg tablet 50 mg PO Q2-4H PRN migraine 05/10/24 08/24/24 topiramate 50 mg tablet 50 mg PO BID 07/05/24 08/24/24 metoclopramide HCl 5 mg tablet 5 mg PO QAC 07/24/24 08/24/24 (Reglan) clonazepam 0.5 mg tablet 0.5 mg PO BID 08/24/24 08/24/24 Previous Rx's Medication Instructions Recorded sumatriptan succinate 50 mg tablet 50 mg PO Q2-4H PRN migraine 04/28/24 headache #9 tabs estradiol 0.5 mg tablet 0.5 mg PO DAILY #30 tabs 07/05/24 cefpodoxime 200 mg tablet 200 mg PO Q12H #20 tabs 07/25/24 Allergies Allergy/AdvReac Type Severity Reaction Status Date / Time gluten Allergy Celiac Verified 09/04/24 16:11 coconut AdvReac Intermediate Hives Verified 09/04/24 16:11 NSAIDS (Non-Steroidal AdvReac Mild Gastrointestinal Verified 09/04/24 16:11 Anti-Inflamma Upset benzonatate AdvReac Unknown Hives Verified 09/04/24 16:11 [From Tessalon Perles] escitalopram [From Lexapro] AdvReac Unknown Hallucinati Verified 09/04/24 16:11 ng Review of Systems Review of Systems ROS Unobtainable: All systems reviewed & are unremarkable except as noted in HPI and below Patient History Medical History Left corneal abrasion Headache Polycystic ovary disease Celiac disease GERD with apnea Hypertension Bipolar disorder Surgical History Status post tubal ligation History of section H/O abdominoplasty H/O oophorectomy H/O gastric sleeve History of cholecystectomy History of appendectomy Social History marital status: household members: significant other and children lives independently: Yes occupational status: employed Smoking Status: Never smoker alcohol intake: never substance use type: marijuana Smoking Status: Never smoker alcohol intake frequency: holidays/special occasions only Exam Initial Vital Signs Initial Vital Signs: Vital Signs Temperature 97.4 F L 09/04/24 16:11 Pulse Rate 97 H 09/04/24 16:11 Respiratory Rate 24 09/04/24 16:11 Blood Pressure 161/113 H 09/04/24 16:11 Pulse Oximetry 99 09/04/24 16:11 Oxygen Delivery Method Room Air 09/04/24 16:11 Const General: cooperative and No ill appearing [facility] Head: normal to inspection and normocephalic Resp Effort & Inspection: normal respiratory effort Auscultation: clear to auscultation bilaterally Cardio Rate: regular rate Rhythm: regular rhythm GI Inspection: normal to inspection Palpation: tender Skin General: no rashes or lesions noted Neuro General: patient alert, patient awake, patient oriented x3 and moves all extremities Course Orders Ordered: Acetaminophen (Acetaminophen 325 Mg Tablet) 650 mg PO Q6H PRN PRN Reason: Fever/Mild Pain (1-3) Haloperidol (Haloperidol 5 Mg/Ml Vial) 2 mg IV Q2HR PRN PRN Reason: Nausea And Vomiting Last Admin: 09/05/24 00:56 Dose: 2 mg Documented By: CECILY Hydromorphone HCl (Hydromorphone 0.5 Mg Inj) 0.5 mg IV Q3H PRN PRN Reason: Pain, Severe (7-10) Last Admin: 09/05/24 00:56 Dose: 0.5 mg Documented By: CECILY Sodium Chloride (Normal Saline 0.9%) 1,000 mls @ 100 mls/hr IV CONT BENITO Last Admin: 09/05/24 00:59 Dose: 100 mls/hr Documented By: CECILY Lorazepam (Lorazepam 2 Mg/Ml Inj) 1 mg IV Q4HR PRN PRN Reason: Nausea And Vomiting Naloxone HCl (Naloxone 0.4 Mg/Ml Vial) 0.2 mg IV Q2MIN PRN PRN Reason: Opiate Reversal Ondansetron HCl (Ondansetron 4 Mg/2 Ml Inj) 4 mg IV Q8HR PRN PRN Reason: Nausea And Vomiting Discontinued Medications Aspirin (Aspirin 81 Mg Chew Tab) 324 mg PO NOW ONE Stop: 09/04/24 16:16 Last Admin: 09/04/24 20:06 Dose: Not Given Documented By: ZAKI Droperidol (Droperidol 5 Mg/2 Ml Vial) 1.25 mg IV NOW ONE Stop: 09/04/24 19:42 Last Admin: 09/04/24 20:18 Dose: Not Given Documented By: ZAKI Haloperidol (Haloperidol 5 Mg/Ml Vial) 5 mg IV NOW ONE Stop: 09/04/24 20:11 Last Admin: 09/04/24 20:17 Dose: 5 mg Documented By: ZAKI Hydromorphone HCl (Hydromorphone 0.5 Mg Inj) 0.5 mg IV NOW ONE Stop: 09/04/24 19:42 Last Admin: 09/04/24 20:06 Dose: 0.5 mg Documented By: ZAKI Vital Signs Vital signs: Vital Signs - 8 hr 09/04/24 20:00 09/04/24 20:58 Pulse Rate 66 60 Respiratory Rate 24 17 Blood Pressure 140/81 Pulse Oximetry 99 100 Oxygen Delivery Method Room Air Room Air MDM - Chest Pain Lab Data Attestation: I reviewed the patient's lab results. 09/04/24 16:22 09/04/24 16:22 Labs: Lab Results 09/04/24 09/04/24 Range/Units 16:22 18:24 WBC 12.9 H (4.5-11.0) X10^3/uL RBC 4.59 (4.0-5.2) X10^6/uL Hgb 12.0 (12.0-16.0) g/dL Hct 37.5 (36-46) % MCV 81.6 (80-100) fL MCH 26.2 (26-34) PG MCHC 32.1 (30-36) % RDW 14.5 (11.6-14.8) % Plt Count 429 H (150-400) X10^3/uL Neut % (Auto) 73.4 (50-75) % Lymph % (Auto) 19.2 L (25-40) % [place] % (Auto) 6.3 (3-14) % Eos % (Auto) 0.7 L (2-4) % Baso % (Auto) 0.4 (0-2) % Neut # (Auto) 9400 H (7546-2630) /uL Lymph # (Auto) 2500 (8840-5079) /uL [place] # (Auto) 800 (0-900) /uL Eos # (Auto) 100 (0-450) /uL Baso # (Auto) 100 (0-100) /uL PT 11.2 (9.4-12.5) SECONDS INR 1.0 (0.9-1.3) APTT 29 (25.1-36.5) SECONDS Sodium 138 (137-145) mmol/L Potassium 4.0 (3.4-5.1) mmol/L Chloride 106 (98-107) mmol/L Carbon Dioxide 24 (22-32) mmol/L BUN 8 (7-17) mg/dL Creatinine 0.59 (0.52-1.04) mg/dL Estimated GFR > 60 (>60) mL/min BUN/Creatinine Ratio 13.6 (6-22) Glucose 108 H (70-100) mg/dL Calcium 9.5 (8.4-10.2) mg/dL Magnesium 1.8 (1.6-2.3) mg/dL Total Bilirubin 0.5 (0.2-1.3) mg/dL AST 26 (14-36) IU/L ALT 27 (<35) IU/L Alkaline Phosphatase 92 (38-126) U/L Total Creatine Kinase 39 (30-135) U/L Troponin I < 0.012 < 0.012 (0.01-0.034) ng/mL NT-Pro-B Natriuret Pep 31 (<125) pg/mL Total Protein 7.8 (6.3-8.2) g/dL Albumin 4.7 (3.5-5.0) g/dL Globulin 3.1 (1.7-4.1) g/dL Albumin/Globulin Ratio 1.5 (1.0-2.8) Lipase 142 (23-300) U/L Imaging Data Chest x-ray: Radiologist's Impression: PROCEDURE: XR CHEST 1V INDICATIONS: chest pain TECHNIQUE: One view of the chest was acquired. COMPARISON: [facility], , XR CHEST 1 VIEW, 02/05/2022, 13:51. FINDINGS: Surgical changes and devices: None. Lungs and pleura: No dense consolidation or pleural effusions. Mediastinum: Normal heart size Bones and chest wall: Unremarkable IMPRESSION: No acute radiographic abnormality on this single view study ECG Data Attestation: I personally reviewed and interpreted this ECG as follows: Interpretation: Sinus rhythm Ventricular rate 91 Normal axis Normal QRS Normal QTC ST T changes MDM Narrative Medical decision making narrative: Despite medications here in the emergency department the patient still remains with quite a bit of abdominal pain and also vomiting. She was unable to tolerate oral intake. Electrolytes are relatively unremarkable. Due to her persistent symptoms and our inability to control her symptoms here in the emergency department patient was require admission to the hospital. Discussed the case with Dr. Massey hospitalist on-call who will admit for further evaluation and treatment. Discharge Plan Departure Patient Disposition: Admitted as Observation Clinical Impression: Intractable vomiting with nausea Admit Date/Time: 09/04/24 23:50 Admit Provider: Jerrell Massey
[2024-09-04 20:00] VITALS: PULSE 66; RESP 24; O2SAT 99
[2024-09-04] MEDS: HYDROMORPHONE 0.5 MG INJ IV (20:06)
[2024-09-04] MEDS: HALOPERIDOL 5 MG/ML VIAL IV (20:17)
[2024-09-04 20:58] VITALS: BP 140/81; PULSE 60; RESP 17; O2SAT 100
[2024-09-05] MEDS: HALOPERIDOL 5 MG/ML VIAL 2 MG IV (00:56)
[2024-09-05] MEDS: HYDROMORPHONE 0.5 MG INJ IV ×2 (00:56→06:44)
[2024-09-05] MEDS: SODIUM CHLORIDE 0.9% 1,000 ML 100 ML IV (00:59)
[2024-09-05 01:00] VITALS: BP 135/89; PULSE 77; RESP 19; TEMP 36.2; O2SAT 100; BMI 29.7
[2024-09-05 02:31] LABS: MRSA (Nasal) PCR NOT DETECTED (Not Detect)
[2024-09-05 04:00] VITALS: BP 134/70; PULSE 100; RESP 16; TEMP 36.1; O2SAT 100
--- NOTE | 2024-09-05 05:38 | PM.HP.1 ---
History of Present Illness History of Present Illness Chief complaint: vomiting, abd px Narrative: 43 year-old female with past medical history of multiple abdominal surgery including history of gastric sleeve surgery, Hysterectomy, appendectomy, abdominal plasty presents with abdominal pain, nausea and vomiting. Per the patients report, the patient does have a history of recurrent abdominal pain and intractable nausea and vomiting. The patient recently had an EGD and the patient states that the result was normal. The patients over the last 24 hour has been having an increase abdominal pain with nausea and vomiting. The patient states that her symptoms are very typical for her previous episode of nausea and vomiting, though more severe. The patient otherwise denies any fever, chills, diarrhea, chest pain or shortness of breath. In our emergency room, the patient was hemodynamically stable. Labs were relatively benign. The patient however had ongoing nausea and vomiting. The patient did require IV Haldol well as IV Dilaudid to control her nausea and vomiting, inn addition to other antiemetics. The patient did receive IV fluid. Due to severe ongoing symptoms our ER physician requested admission to control her nausea and vomiting as well as dehydration. FORMERLY [facility], [facility] Medical History Left corneal abrasion Headache Polycystic ovary disease Celiac disease GERD with apnea Hypertension Bipolar disorder Surgical History Status post tubal ligation History of section H/O abdominoplasty H/O oophorectomy H/O gastric sleeve History of cholecystectomy History of appendectomy Social History marital status: household members: significant other and children lives independently: Yes occupational status: employed Smoking Status: Never smoker alcohol intake: never substance use type: marijuana Meds Home Medications and Allergies Home Medications Medication Instructions Recorded Confirmed Type alprazolam 0.5 mg tablet 0.5 mg PO BID PRN Anxiety 05/06/23 08/24/24 History sumatriptan succinate 50 mg tablet 50 mg PO Q2-4H PRN migraine 04/28/24 08/24/24 Rx headache #9 tabs ondansetron HCl 4 mg tablet 4 mg PO Q8H PRN nausea/vomiting 05/10/24 08/24/24 History sumatriptan succinate 50 mg tablet 50 mg PO Q2-4H PRN migraine 05/10/24 08/24/24 History estradiol 0.5 mg tablet 0.5 mg PO DAILY #30 tabs 07/05/24 08/24/24 Rx topiramate 50 mg tablet 50 mg PO BID 07/05/24 08/24/24 History metoclopramide HCl 5 mg tablet 5 mg PO QAC 07/24/24 08/24/24 History (Reglan) cefpodoxime 200 mg tablet 200 mg PO Q12H #20 tabs 07/25/24 08/24/24 Rx clonazepam 0.5 mg tablet 0.5 mg PO BID 08/24/24 08/24/24 History Allergies Allergy/AdvReac Type Severity Reaction Status Date / Time gluten Allergy Celiac Verified 09/04/24 16:11 coconut AdvReac Intermediate Hives Verified 09/04/24 16:11 NSAIDS (Non-Steroidal AdvReac Mild Gastrointestinal Verified 09/04/24 16:11 Anti-Inflamma Upset benzonatate AdvReac Unknown Hives Verified 09/04/24 16:11 [From Tessalblayne Perles] escitalopram [From Lexapro] AdvReac Unknown Hallucinati Verified 09/04/24 16:11 ng Review of Systems Review of Systems ROS: Yes All systems reviewed with the patient and are negative except as otherwise documented Exam Vital Signs (past 8 hours): - 09/05/24 01:00 09/05/24 04:00 Temperature 97.1 F L 97.0 F L Pulse Rate 77 100 H Respiratory Rate 19 16 Blood Pressure 135/89 134/70 Pulse Oximetry 100 100 Oxygen Flow Rate 0 0 Oxygen Delivery Method Room Air Oxygen Flow Rate 0 Narrative Exam Narrative: GENERAL: The patient is not in any acute distressed. Awake and alert. HEENT: Nonicteric sclerae, PERRLA, EOMI. Oropharynx clear. Moist mucous membranes. Conjunctivae appear well perfused. HEART: Regular rate and rhythm without murmurs. No lower extremities edema. LUNGS: Clear to auscultation bilaterally. No wheezing, crackles or rhonchi ABDOMEN: Soft, positive bowel sounds, nontender. SKIN: No rash, no excessive bruising, petechiae, or purpura. NEUROLOGIC: AxO x 3. Cranial nerves II-XII intact without motor/sensory deficit. Objective Labs 09/04/24 16:22 09/04/24 16:22 Labs: Laboratory Results - last 24 hr 09/04/24 09/04/24 09/05/24 16:22 18:24 00:45 WBC 12.9 H RBC 4.59 Hgb 12.0 Hct 37.5 MCV 81.6 MCH 26.2 MCHC 32.1 RDW 14.5 Plt Count 429 H Neut % (Auto) 73.4 Lymph % (Auto) 19.2 L [place] % (Auto) 6.3 Eos % (Auto) 0.7 L Baso % (Auto) 0.4 Neut # (Auto) 9400 H Lymph # (Auto) 2500 [place] # (Auto) 800 Eos # (Auto) 100 Baso # (Auto) 100 PT 11.2 INR 1.0 APTT 29 Sodium 138 Potassium 4.0 Chloride 106 Carbon Dioxide 24 BUN 8 Creatinine 0.59 Estimated GFR > 60 BUN/Creatinine Ratio 13.6 Glucose 108 H Calcium 9.5 Magnesium 1.8 Total Bilirubin 0.5 AST 26 ALT 27 Alkaline Phosphatase 92 Total Creatine Kinase 39 Troponin I < 0.012 < 0.012 NT-Pro-B Natriuret Pep 31 Total Protein 7.8 Albumin 4.7 Globulin 3.1 Albumin/Globulin Ratio 1.5 Lipase 142 Nasal Screen MRSA (PCR) Not detected Assessment & Plan Assessment & Plan narrative: Intractable nausea and vomiting. Admit the patient to medical floow under observation. Continue NPO, IV fluid, IV antiemetics and pain control. Again the patient's symptoms seems to improve with IV haldol and IV Dilaudid in addition to other antiemetics. Dehydration. IV fluid and monitor volume status. Anxiety. Resume home medication. Migraine. Resume home prn medicaitons. DVT prophylaxis SCDs. Code status full code. Disposition likely home in 1 to 2 days. Time-Based Coding :: [TOTAL MINUTES] spent with patient and on the chart (including review of chart, obtaining history, exam, reviewing outside data, placing orders, documenting exam and treatment plan, and counseling patient) on [DATE].
--- NOTE | 2024-09-05 07:20 | PM.PN.1 ---
Subjective Subjective Date Patient Seen: 09/05/24 Interval history: 43 year-old female with past medical history of multiple abdominal surgery including history of gastric sleeve surgery, Hysterectomy, appendectomy, abdominal plasty presents with abdominal pain, nausea and vomiting. Per the patients report, the patient does have a history of recurrent abdominal pain and intractable nausea and vomiting. The patient recently had an EGD and the patient states that the result was normal. The patients over the last 24 hour has been having an increase abdominal pain with nausea and vomiting. The patient states that her symptoms are very typical for her previous episode of nausea and vomiting, though more severe. The patient otherwise denies any fever, chills, diarrhea, chest pain or shortness of breath. In our emergency room, the patient was hemodynamically stable. Labs were relatively benign. The patient however had ongoing nausea and vomiting. The patient did require IV Haldol well as IV Dilaudid to control her nausea and vomiting, inn addition to other antiemetics. The patient did receive IV fluid. Due to severe ongoing symptoms our ER physician requested admission to control her nausea and vomiting as well as dehydration. Exam Vital Signs (past 8 hours): - 09/05/24 01:00 09/05/24 04:00 Temperature 97.1 F L 97.0 F L Pulse Rate 77 100 H Respiratory Rate 19 16 Blood Pressure 135/89 134/70 Pulse Oximetry 100 100 Oxygen Flow Rate 0 0 Oxygen Delivery Method Room Air Oxygen Flow Rate 0 Objective Labs 09/04/24 16:22 09/04/24 16:22 Labs: Laboratory Results - last 24 hr 09/04/24 09/04/24 09/05/24 16:22 18:24 00:45 WBC 12.9 H RBC 4.59 Hgb 12.0 Hct 37.5 MCV 81.6 MCH 26.2 MCHC 32.1 RDW 14.5 Plt Count 429 H Neut % (Auto) 73.4 Lymph % (Auto) 19.2 L [place] % (Auto) 6.3 Eos % (Auto) 0.7 L Baso % (Auto) 0.4 Neut # (Auto) 9400 H Lymph # (Auto) 2500 [place] # (Auto) 800 Eos # (Auto) 100 Baso # (Auto) 100 PT 11.2 INR 1.0 APTT 29 Sodium 138 Potassium 4.0 Chloride 106 Carbon Dioxide 24 BUN 8 Creatinine 0.59 Estimated GFR > 60 BUN/Creatinine Ratio 13.6 Glucose 108 H Calcium 9.5 Magnesium 1.8 Total Bilirubin 0.5 AST 26 ALT 27 Alkaline Phosphatase 92 Total Creatine Kinase 39 Troponin I < 0.012 < 0.012 NT-Pro-B Natriuret Pep 31 Total Protein 7.8 Albumin 4.7 Globulin 3.1 Albumin/Globulin Ratio 1.5 Lipase 142 Nasal Screen MRSA (PCR) Not detected PFSH Medical History Left corneal abrasion Headache Polycystic ovary disease Celiac disease GERD with apnea Hypertension Bipolar disorder Surgical History Status post tubal ligation History of section H/O abdominoplasty H/O oophorectomy H/O gastric sleeve History of cholecystectomy History of appendectomy Social History marital status: household members: significant other and children lives independently: Yes occupational status: employed Smoking Status: Never smoker alcohol intake: never substance use type: marijuana Assessment & Plan Assessment & Plan narrative: Intractable nausea and vomiting. Admit the patient to medical floow under observation. Continue NPO, IV fluid, IV antiemetics and pain control. Again the patient's symptoms seems to improve with IV haldol and IV Dilaudid in addition to other antiemetics. Dehydration. IV fluid and monitor volume status. Anxiety. Resume home medication. Migraine. Resume home prn medicaitons. DVT prophylaxis SCDs. Code status full code. Disposition likely home in 1 to 2 days.
[2024-09-05 07:35] LABS: Add Manual Diff / Slide Review NO; Basophils Absolute Auto 100 /uL (0-100); Basophils Percent Auto 0.5 % (0-2); Eosinophils Absolute Auto 0 /uL (0-450); Eosinophils Percent Auto 0.2 % (2-4); Hemoglobin 10.5 g/dL (12.0-16.0); Lymphocytes Absolute Auto 3500 /uL (1100-4500); Lymphocytes Percent Auto 27.8 % (25-40); Mean Corpuscular HGB Conc 32.8 % (30-36); Mean Corpuscular Hemoglobin 26.6 PG (26-34); Mean Corpuscular Volume 81.3 fL (80-100); Monocytes Absolute Auto 1100 /uL (0-900); Monocytes Percent Auto 8.3 % (3-14); Neutrophils Absolute Auto 8000 /uL (1500-7000); Neutrophils Percent Auto 63.2 % (50-75); Platelet Count 374 X10^3/uL (150-400); Red Blood Cell Count 3.94 X10^6/uL (4.0-5.2); Red Cell Distribution Width 14.3 % (11.6-14.8); White Blood Cell Count 12.6 X10^3/uL (4.5-11.0)
[2024-09-05 07:48] LABS: Blood Urea Nitrogen 6 mg/dL (7-17); Calcium 8.9 mg/dL (8.4-10.2); Carbon Dioxide 26 mmol/L (22-32); Chloride 106 mmol/L (98-107); Estimated Glomerular Filt Rate > 60 mL/min (>60); Glucose 111 mg/dL (70-100); HEMOLYSIS < 15 (0-50); Potassium 3.8 mmol/L (3.4-5.1); Sodium 136 mmol/L (137-145)
[2024-09-05 08:00] VITALS: BP 108/70; PULSE 80; RESP 18; TEMP 36.2; O2SAT 99
[2024-09-05] MEDS: TOPIRAMATE 25 MG TABLET 50 MG PO (08:50)
[2024-09-05] MEDS: clonazePAM 0.5 MG TABLET PO (08:50)
--- NOTE | 2024-09-05 10:22 | P.DS_ITS ---
History of Present Illness History of Present Illness Date Patient Seen: 09/05/24 Time Patient Seen: 08:45 Chief complaint: vomiting, abd px Narrative: 43 year-old female with past medical history of multiple abdominal surgery including history of gastric sleeve surgery, Hysterectomy, appendectomy, abdominal plasty presents with abdominal pain, nausea and vomiting. Per the patients report, the patient does have a history of recurrent abdominal pain and intractable nausea and vomiting. The patient recently had an EGD and the patient states that the result was normal. The patients over the last 24 hour has been having an increase abdominal pain with nausea and vomiting. The patient states that her symptoms are very typical for her previous episode of nausea and vomiting, though more severe. The patient otherwise denies any fever, chills, diarrhea, chest pain or shortness of breath. In our emergency room, the patient was hemodynamically stable. Labs were relatively benign. The patient however had ongoing nausea and vomiting. The patient did require IV Haldol well as IV Dilaudid to control her nausea and vomiting, inn addition to other antiemetics. The patient did receive IV fluid. Due to severe ongoing symptoms our ER physician requested admission to control her nausea and vomiting as well as dehydration. Discharge Providers Provider Date of admission: 09/04/24 23:50 Discharge Date: 09/05/24 Primary care physician: Sarah Dunbar MD Discharge provider: Tai Cage MD Summary Hospital Course Discharge Diagnosis: 1. Idiopathic nausea and vomiting, possible gastrointestinal migraine syndrome 2. Dehydration due to 1. 3. Anxiety disorder Hospital Course: Patient was admitted and hydrated intravenously overnight, administered antiemetics and bowel rest. She is feeling significantly better by morning was able tolerate a clear liquid diet, and interested discharge home with outpatient follow-up. No other issues arose. Status at Discharge Cognitive/behavioral status at discharge: oriented Functional status at discharge: independent ambulation Overall status at discharge: patient is progressing back to baseline Time Spent with Patient Time spent: Less than 30 minutes Exam Vital Signs (past 8 hours): - 09/05/24 04:00 09/05/24 07:00 09/05/24 08:00 Temperature 97.0 F L 97.2 F L Pulse Rate 100 H 80 Respiratory Rate 16 18 Blood Pressure 134/70 108/70 Pulse Oximetry 100 99 Oxygen Delivery Method Room Air Oxygen Flow Rate 0 0 Oxygen Delivery Method Room Air Oxygen Flow Rate 0 Narrative Exam Narrative: Exam Narrative: NAD, alert and oriented. Fluent speech. Lungs are clear, normal rate and effort. Heart is regular, no murmur gallop or rub. Abdomen is soft, non distended. Extremities are free of edema. Objective Imaging Chest x-ray: Radiologist's impression: No acute radiographic abnormality on this single view study Labs 09/05/24 07:20 09/05/24 07:20 Labs: Laboratory Results - last 24 hr 09/04/24 09/04/24 09/05/24 16:22 18:24 00:45 WBC 12.9 H RBC 4.59 Hgb 12.0 Hct 37.5 MCV 81.6 MCH 26.2 MCHC 32.1 RDW 14.5 Plt Count 429 H Neut % (Auto) 73.4 Lymph % (Auto) 19.2 L [place] % (Auto) 6.3 Eos % (Auto) 0.7 L Baso % (Auto) 0.4 Neut # (Auto) 9400 H Lymph # (Auto) 2500 [place] # (Auto) 800 Eos # (Auto) 100 Baso # (Auto) 100 PT 11.2 INR 1.0 APTT 29 Sodium 138 Potassium 4.0 Chloride 106 Carbon Dioxide 24 BUN 8 Creatinine 0.59 Estimated GFR > 60 BUN/Creatinine Ratio 13.6 Glucose 108 H Calcium 9.5 Magnesium 1.8 Total Bilirubin 0.5 AST 26 ALT 27 Alkaline Phosphatase 92 Total Creatine Kinase 39 Troponin I < 0.012 < 0.012 NT-Pro-B Natriuret Pep 31 Total Protein 7.8 Albumin 4.7 Globulin 3.1 Albumin/Globulin Ratio 1.5 Lipase 142 Nasal Screen MRSA (PCR) Not detected 09/05/24 07:20 WBC 12.6 H RBC 3.94 L Hgb 10.5 L Hct 32.0 L MCV 81.3 MCH 26.6 MCHC 32.8 RDW 14.3 Plt Count 374 Neut % (Auto) 63.2 Lymph % (Auto) 27.8 [place] % (Auto) 8.3 Eos % (Auto) 0.2 L Baso % (Auto) 0.5 Neut # (Auto) 8000 H Lymph # (Auto) 3500 [place] # (Auto) 1100 H Eos # (Auto) 0 Baso # (Auto) 100 PT INR APTT Sodium 136 L Potassium 3.8 Chloride 106 Carbon Dioxide 26 BUN 6 L Creatinine 0.40 L Estimated GFR > 60 BUN/Creatinine Ratio 15.0 Glucose 111 H Calcium 8.9 Magnesium Total Bilirubin AST ALT Alkaline Phosphatase Total Creatine Kinase Troponin I NT-Pro-B Natriuret Pep Total Protein Albumin Globulin Albumin/Globulin Ratio Lipase Nasal Screen MRSA (PCR) PFSH Medical History Bipolar disorder Celiac disease GERD with apnea Headache Hypertension Left corneal abrasion Polycystic ovary disease Surgical History H/O abdominoplasty H/O gastric sleeve H/O oophorectomy History of appendectomy History of section History of cholecystectomy Status post tubal ligation Social History marital status: household members: significant other and children lives independently: Yes occupational status: employed Smoking Status: Never smoker alcohol intake: never substance use type: marijuana Discharge Plan Discharge Plan Patient Disposition: Home Provider Discharge Comment: Followup with PCP/GI 1 week Discharge orders & Medications Prescriptions: Continued topiramate 50 mg tablet 50 mg PO BID estradiol 0.5 mg tablet 0.5 mg PO DAILY Qty: 30 3RF clonazepam 0.5 mg tablet 0.5 mg PO BID sumatriptan succinate 50 mg tablet 50 mg PO Q2-4H PRN (Reason: migraine headache) Qty: 9 0RF Rx Instructions: do not exceed 4 doses per 24 hrs metoclopramide HCl [Reglan] 5 mg Tablet 5 mg PO QAC Rx Instructions: administer 30 minutes before meals alprazolam 0.5 mg tablet 0.5 mg PO BID PRN (Reason: Anxiety) sumatriptan succinate 50 mg tablet 50 mg PO Q2-4H PRN (Reason: migraine) ondansetron HCl 4 mg tablet 4 mg PO Q8H PRN (Reason: nausea/vomiting) Discontinued cefpodoxime 200 mg tablet 200 mg PO Q12H Qty: 20 0RF Rx Instructions: must administer with a meal/food Follow up/Referrals: Sarah Dunbar MD [Primary Care Provider] - Visit Report/Discharge Packet Stand Alone Forms: Patient Portal/API, Stroke Signs & Symptoms Discharge Data Primary Care Provider: Sarah Dunbar Attending Provider: Jerrell Massey Admit Date/Time: 09/04/24 23:50 Quality MIPS - Admit I confirm the patient?s Advance Care Plan is present, Code status is documented, Surrogate decision maker is in patient?s record [If Yes, STOP here]: Yes MIPS - Meds 'Current medications' to include all prescriptions, [id number] products, herbals, cannabis/cannabidiol products, and vitamin/mineral/dietary (nutritional) supplements. I have utilized all available resources to obtain, update, or review the patient?s current medications. [If Yes, STOP here]: Yes MIPS - DC The patient has a history of heart transplant or Left Ventricular Assist Device (LVAD). If yes, STOP here.: No The patient has current or prior documentation of left ventricular ejection fraction (LVEF) less than or equal to 40%, or moderate or severely depressed left ventricular systolic function.: No A. The patient was prescribed or already taking an Angiotensin-Converting Enzyme (WILFRED) Inhibitor, or Angiotensin Receptor Tino (ARB).: No B. The patient was prescribed or already taking a beta-tino. [If Yes to Both A & B, STOP here]: No Patient not prescribed/taking WILFRED or ARB, no reason given.: No Patient not prescribed/taking beta-tino, no reason given.: No PROFEE Charge Codes Discharge inpatient/observation: [id number]
--- NOTE | 2024-09-08 07:35 | PC.NURSE ---
Late entry 09/05/24 @ 0940 - 0.5mg IV Dilaudid administered, error with eMAR scanning.
== END 2024-09-05 10:40 | disposition home or self-care (01) ==
LOC: ED 23:50 → AC 23:51 → ICU 09-05 00:24
PROVIDERS: Student in an Organized Health Care Education/Training Program; Admitting Provider Internal Medicine; Emergency Provider Emergency Medicine; PCP Student in an Organized Health Care Education/Training Program; Referring Provider Emergency Medicine; Visit Provider Internal Medicine
DX: R10.9 Unspecified abdominal pain (principal); R11.2 Nausea with vomiting, unspecified; E86.0 Dehydration; Z98.890 Other specified postprocedural states; F41.9 Anxiety disorder, unspecified
CPT/HCPCS: 36415; 71045; 80048; 80053; 82550; 83690; 83735; 83880; 84484; 85025; 85610; 85730; 87797; 93005; 96361; 96374; 96375; 96376; 99284; G0378; J1171; J1630

== ENCOUNTER 2024-09-07 17:52 | Emergency (ER) | payer OTHER, SELFPAY ==
[2024-09-07] VITALS (10 sets, daily range): BP systolic 128–150; BP diastolic 72–110; PULSE 81–108; RESP 18–20; TEMP 37.3; O2SAT 95–99; BMI 29.8
[2024-09-07 19:09] LABS: Add Manual Diff / Slide Review NO; Basophils Absolute Auto 100 /uL (0-100); Basophils Percent Auto 0.9 % (0-2); Eosinophils Absolute Auto 100 /uL (0-450); Eosinophils Percent Auto 0.8 % (2-4); Hematocrit 34.8 % (36-46); Hemoglobin 11.3 g/dL (12.0-16.0); Lymphocytes Absolute Auto 3800 /uL (1100-4500); Lymphocytes Percent Auto 31.7 % (25-40); Mean Corpuscular HGB Conc 32.5 % (30-36); Mean Corpuscular Hemoglobin 26.4 PG (26-34); Mean Corpuscular Volume 81.1 fL (80-100); Monocytes Absolute Auto 1100 /uL (0-900); Monocytes Percent Auto 9.5 % (3-14); Neutrophils Absolute Auto 6900 /uL (1500-7000); Neutrophils Percent Auto 57.1 % (50-75); Platelet Count 416 X10^3/uL (150-400); Red Blood Cell Count 4.29 X10^6/uL (4.0-5.2); Red Cell Distribution Width 14.4 % (11.6-14.8); White Blood Cell Count 12.1 X10^3/uL (4.5-11.0)
[2024-09-07 19:17] LABS: Alanine Aminotransferase 20 IU/L (<35); Albumin 4.5 g/dL (3.5-5.0); Albumin Globulin Ratio 1.7 (1.0-2.8); Alkaline Phosphatase 83 U/L (38-126); Aspartate Aminotransferase 23 IU/L (14-36); BUN Creatinine Ratio 12.7 (6-22); Bilirubin Total 0.5 mg/dL (0.2-1.3); Blood Urea Nitrogen 7 mg/dL (7-17); Calcium 9.5 mg/dL (8.4-10.2); Carbon Dioxide 22 mmol/L (22-32); Chloride 107 mmol/L (98-107); Estimated Glomerular Filt Rate > 60 mL/min (>60); Globulin 2.7 g/dL (1.7-4.1); Glucose 110 mg/dL (70-100); HEMOLYSIS < 15 (0-50); Lipase 127 U/L (23-300); Potassium 4.1 mmol/L (3.4-5.1); Sodium 137 mmol/L (137-145); Total Protein 7.2 g/dL (6.3-8.2)
[2024-09-07] MEDS: ONDANSETRON 4 MG/2 ML INJ IV (19:54)
--- NOTE | 2024-09-07 23:04 | ED_ITS ---
HPI - Nausea/Vomiting/Diarrhea General Chief complaint: Nausea/Vomiting/Diarrhea Stated complaint: sent by PCP, N/V, abd pain Time Seen by Provider: 09/07/24 22:21 Source: patient, RN notes reviewed and old records reviewed Mode of arrival: Ambulatory Limitations: no limitations History of Present Illness HPI Narrative: 43-year-old female with a history of abdominal migraines, patient has also had multiple abdominal surgeries including abdominal plasty me oophorectomy gastric sleeve, cholecystectomy, appendectomy and tubal ligation patient states she has had an ex lap was found to have dwight over retained and removed. Then has been told that she has not adhesions. She also notes she had an EGD [facility] in the 24 of August discussed there maybe some bile reflux gastritis associated with her gastric sleeve. Her financial solutions advisor was Dr. Yissel Cao she has follow-up in the upcoming month. Patient states she has had persistent symptoms she was hospitalized on the discharged home on the has had some persistent nausea and vomiting with similar pain and was contacted by her regular physician today who told her to come in as her symptoms have been persistent. She denies fevers. She states this feels very similar to her prior episodes with no new changes in location or quality. She states she has had some diarrhea but no black or bloody stools. She denies any dysuria urgency or frequency. Patient states she normally takes Reglan t.i.d. and had taken amend for her last episode for 3 days her last dose was Friday. She takes that as a as needed basis. She takes Caplyta, allow alprazolam and Klonopin. Patient states she was allergic to Lexapro. Denies tobacco, no alcohol, states rare marijuana. He was accompanied by her spouse. Related Data Home Medications Medication Instructions Recorded Confirmed alprazolam 0.5 mg tablet 0.5 mg PO BID PRN Anxiety 05/06/23 08/24/24 sumatriptan succinate 50 mg tablet 50 mg PO Q2-4H PRN migraine 05/10/24 08/24/24 topiramate 50 mg tablet 50 mg PO BID 07/05/24 08/24/24 metoclopramide HCl 5 mg tablet 5 mg PO QAC 07/24/24 08/24/24 (Reglan) clonazepam 0.5 mg tablet 0.5 mg PO BID 08/24/24 08/24/24 Previous Rx's Medication Instructions Recorded sumatriptan succinate 50 mg tablet 50 mg PO Q2-4H PRN migraine 04/28/24 headache #9 tabs estradiol 0.5 mg tablet 0.5 mg PO DAILY #30 tabs 07/05/24 ondansetron HCl 4 mg tablet 4 mg PO Q8H PRN nausea/vomiting 09/07/24 #30 tabs promethazine 50 mg rectal 50 mg UT Q6H PRN nausea and 09/08/24 suppository vomiting #12 ea Allergies Allergy/AdvReac Type Severity Reaction Status Date / Time gluten Allergy Celiac Verified 09/04/24 16:11 coconut AdvReac Intermediate Hives Verified 09/04/24 16:11 NSAIDS (Non-Steroidal AdvReac Mild Gastrointestinal Verified 09/04/24 16:11 Anti-Inflamma Upset benzonatate AdvReac Unknown Hives Verified 09/04/24 16:11 [From Tessalon Perles] escitalopram [From Lexapro] AdvReac Unknown Hallucinati Verified 09/04/24 16:11 ng Review of Systems Review of Systems ROS Unobtainable: All systems reviewed & are unremarkable except as noted in HPI and below Patient History Medical History Left corneal abrasion Headache Polycystic ovary disease Celiac disease GERD with apnea Hypertension Bipolar disorder Surgical History Status post tubal ligation History of section H/O abdominoplasty H/O oophorectomy H/O gastric sleeve History of cholecystectomy History of appendectomy Social History marital status: household members: significant other and children lives independently: Yes occupational status: employed Smoking Status: Never smoker alcohol intake: never substance use type: marijuana Smoking Status: Never smoker alcohol intake frequency: holidays/special occasions only Exam Narrative Exam Narrative: GENERAL: Alert and oriented x three, female in moderate distress HEENT: Head normocephalic, atraumatic, EOMI, pupils reactive, face symmetric, moist mucous membranes NECK: Supple, full range of motion CARDIOVASCULAR: Regular rate and rhythm without murmurs, rubs or gallops. RESPIRATORY: Breath sounds equal bilaterally, no wheezes rales or rhonchi. ABDOMEN: Soft, patient has some left-sided tenderness upper and lower, Normoactive bowel sounds all 4 quadrants. No guarding or rebound, rigidity, no mass : No CVA tenderness EXTREMITIES: Normal range of motion, no clubbing or edema. Neurovascularly intact NEUROLOGICAL: Cranial nerves II through XII grossly intact. Moving all extremities SKIN: Warm, dry, no petechiae, no rashes or lesions. Initial Vital Signs Initial Vital Signs: Vital Signs Temperature 99.1 F 09/07/24 18:34 Pulse Rate 89 09/07/24 18:34 Respiratory Rate 18 09/07/24 18:34 Blood Pressure 147/89 H 09/07/24 18:34 Pulse Oximetry 99 09/07/24 18:34 Oxygen Delivery Method Room Air 09/07/24 18:34 Course Orders Ordered: ED Orders 09/07/24 23:16 CT abdomen pelvis w con Stat Discontinued Medications Haloperidol (Haloperidol 5 Mg/Ml Vial) 5 mg IV NOW ONE Stop: 09/07/24 23:18 Last Admin: 09/07/24 23:40 Dose: 5 mg Documented By: JOSE Hydromorphone HCl (Hydromorphone 0.5 Mg Inj) 0.5 mg IV NOW ONE Stop: 09/08/24 01:52 Last Admin: 09/08/24 02:00 Dose: 0.5 mg Documented By: JOSE Sodium Chloride (Normal Saline 0.9%) 1,000 mls @ 1,000 mls/hr IV BOLUS ONE Stop: 09/08/24 00:33 Last Infusion: 09/08/24 01:24 Dose: Infused Documented By: Admin: 09/07/24 23:40 Dose: 1,000 mls/hr Documented By: JOSE Metoclopramide HCl (Metoclopramide 10 Mg/2 Ml Inj) 10 mg IV NOW ONE Stop: 09/08/24 04:01 Last Admin: 09/08/24 06:17 Dose: 10 mg Documented By: JOSE Ondansetron HCl (Ondansetron 4 Mg/2 Ml Inj) 4 mg IV NOW PRN PRN Reason: Nausea And Vomiting Last Admin: 09/07/24 19:54 Dose: 4 mg Documented By: JOSE Ondansetron HCl (Ondansetron 4 Mg Odt) 4 mg PO NOW PRN PRN Reason: Nausea And Vomiting Vital Signs Vital signs: Vital Signs - 8 hr 09/07/24 23:33 09/07/24 23:44 09/07/24 23:44 Pulse Rate 85 85 Respiratory Rate 18 Blood Pressure 139/72 Pulse Oximetry 99 98 Oxygen Delivery Method Room Air 09/08/24 00:00 09/08/24 00:00 09/08/24 00:30 Pulse Rate 85 Respiratory Rate Blood Pressure 130/81 125/73 Pulse Oximetry 96 Oxygen Delivery Method Room Air 09/08/24 00:30 09/08/24 01:00 09/08/24 01:00 Pulse Rate 58 L 57 L Respiratory Rate 18 Blood Pressure 123/69 Pulse Oximetry 97 97 Oxygen Delivery Method Room Air 09/08/24 01:30 09/08/24 01:30 09/08/24 02:00 Pulse Rate 70 Respiratory Rate Blood Pressure 111/66 120/76 Pulse Oximetry 98 Oxygen Delivery Method 09/08/24 02:00 09/08/24 02:30 09/08/24 02:30 Pulse Rate 58 L 66 Respiratory Rate Blood Pressure 107/57 L Pulse Oximetry 97 94 Oxygen Delivery Method 09/08/24 03:00 09/08/24 03:00 09/08/24 03:30 Pulse Rate 69 Respiratory Rate Blood Pressure 110/65 114/77 Pulse Oximetry 98 Oxygen Delivery Method 09/08/24 03:30 09/08/24 04:00 09/08/24 04:00 Pulse Rate 60 57 L Respiratory Rate Blood Pressure 113/64 Pulse Oximetry 99 98 Oxygen Delivery Method 09/08/24 04:30 09/08/24 04:30 09/08/24 05:00 Pulse Rate 62 Respiratory Rate Blood Pressure 124/69 120/75 Pulse Oximetry 98 Oxygen Delivery Method 09/08/24 05:00 09/08/24 05:30 09/08/24 05:30 Pulse Rate 59 L 62 Respiratory Rate Blood Pressure 117/65 Pulse Oximetry 98 99 Oxygen Delivery Method 09/08/24 06:00 09/08/24 06:01 09/08/24 06:01 Pulse Rate 74 72 Respiratory Rate 18 Blood Pressure 120/61 Pulse Oximetry 98 98 Oxygen Delivery Method Room Air 09/08/24 06:30 09/08/24 06:30 09/08/24 06:56 Pulse Rate 68 Respiratory Rate Blood Pressure 124/82 129/80 Pulse Oximetry 98 Oxygen Delivery Method 09/08/24 06:56 Pulse Rate Respiratory Rate Blood Pressure Pulse Oximetry 100 Oxygen Delivery Method MDM - Nausea/Vomiting/Diarrhea Lab Data 09/07/24 19:00 09/07/24 19:00 Labs: Lab Results 09/07/24 Range/Units 19:00 WBC 12.1 H (4.5-11.0) X10^3/uL RBC 4.29 (4.0-5.2) X10^6/uL Hgb 11.3 L (12.0-16.0) g/dL Hct 34.8 L (36-46) % MCV 81.1 (80-100) fL MCH 26.4 (26-34) PG MCHC 32.5 (30-36) % RDW 14.4 (11.6-14.8) % Plt Count 416 H (150-400) X10^3/uL Neut % (Auto) 57.1 (50-75) % Lymph % (Auto) 31.7 (25-40) % [place] % (Auto) 9.5 (3-14) % Eos % (Auto) 0.8 L (2-4) % Baso % (Auto) 0.9 (0-2) % Neut # (Auto) 6900 (5680-5246) /uL Lymph # (Auto) 3800 (5381-2671) /uL [place] # (Auto) 1100 H (0-900) /uL Eos # (Auto) 100 (0-450) /uL Baso # (Auto) 100 (0-100) /uL Sodium 137 (137-145) mmol/L Potassium 4.1 (3.4-5.1) mmol/L Chloride 107 (98-107) mmol/L Carbon Dioxide 22 (22-32) mmol/L BUN 7 (7-17) mg/dL Creatinine 0.55 (0.52-1.04) mg/dL Estimated GFR > 60 (>60) mL/min BUN/Creatinine Ratio 12.7 (6-22) Glucose 110 H (70-100) mg/dL Calcium 9.5 (8.4-10.2) mg/dL Total Bilirubin 0.5 (0.2-1.3) mg/dL AST 23 (14-36) IU/L ALT 20 (<35) IU/L Alkaline Phosphatase 83 (38-126) U/L Total Protein 7.2 (6.3-8.2) g/dL Albumin 4.5 (3.5-5.0) g/dL Globulin 2.7 (1.7-4.1) g/dL Albumin/Globulin Ratio 1.7 (1.0-2.8) Lipase 127 (23-300) U/L Point of Care Testing Test Results Negative Urine Dip Bedside Urine Glucose Negative Bedside Urine Bilirubin - Negative Bedside Urine Ketone - Negative Urine Specific [place] 1.020 Bedside Urine Occult Blood - Negative Bedside Urine pH 6.0 Bedside Urine Protein - Negative Bedside Urine Urobilinogen - Negative Bedside Urine Nitrite - Negative Bedside Urine Leukocytes - Negative Esterase MDM Narrative Medical decision making narrative: Patient had recent admission for intractable vomiting with nausea. Patient was unable to tolerate orals this was on 09/04/2024 patient discharge diagnosis was possible gastrointestinal migraine syndrome and dehydration received fluids antiemetics and bowel rest overnight as well as narcotics and Haldol. Patient states it was very similar to her prior episodes. She was hospitalized had had 3 days of episodes she was now about 5 days of symptoms. Because of her significant surgical history and persistent symptoms labs are overall appropriate her urine is appropriate but CT abdomen pelvis was discussed with patient and after discussion of risks versus benefit for age exposure felt appropriate for CT abdomen pelvis. Show white count of 12.1 consistent with patient's labs over the past several days, hemoglobin 11.3 also appears stable platelets are 416. Chemistries show sodium 137 potassium 4.1 chloride of 107 CO2 of 22 BUN 7 creatinine 0.57 glucose of 110 LFTs are negative lipase is 127. Point of care urine is negative for acute change. Point of care is negative CT abdomen/pelvis fecal debris within small-bowel usually indicating small intestinal bacterial overgrowth versus slow transit, colonic diverticulosis without evidence of diverticulitis right corpus luteum chloride no further follow up other chronic findings as above. GI panel patient was not able to give a sample. Patient had Zofran 4 mg here in the department. Patient was given fluids, Haldol which she has had in the past as well as 1L normal saline. On rechecked patient has not had much persistent emesis but still has nausea. Was given additional dose of Reglan. Continued to be monitored as tolerated orals would like to be discharged home. Patient states she has her home medications available she has had promethazine suppositories in the past and states she would like a prescription. Discussed return precautions. Patient's vitals are appropriate she was nontoxic and felt appropriate for discharge home. Discharge Plan Departure Patient Disposition: Home Clinical Impression: Vomiting Activity Restrictions/Additional Instructions: I hope you continue to feel improved please continue your home medications as prescribed. Prescription was sent to [facility] for promethazine suppository, you can use 1 every 6 hours as needed if you find this helpful you can use this instead of your other medications. Please return for fevers, new or worsening symptoms, black or bloody stools, bloody emesis or other new or concerning changes. Prescriptions: New promethazine 50 mg suppository 50 mg UT Q6H PRN (Reason: nausea and vomiting) Qty: 12 0RF No Action topiramate 50 mg tablet 50 mg PO BID estradiol 0.5 mg tablet 0.5 mg PO DAILY Qty: 30 3RF clonazepam 0.5 mg tablet 0.5 mg PO BID ondansetron HCl 4 mg tablet 4 mg PO Q8H PRN (Reason: nausea/vomiting) Qty: 30 3RF sumatriptan succinate 50 mg tablet 50 mg PO Q2-4H PRN (Reason: migraine headache) Qty: 9 0RF Rx Instructions: do not exceed 4 doses per 24 hrs metoclopramide HCl [Reglan] 5 mg Tablet 5 mg PO QAC Rx Instructions: administer 30 minutes before meals alprazolam 0.5 mg tablet 0.5 mg PO BID PRN (Reason: Anxiety) sumatriptan succinate 50 mg tablet 50 mg PO Q2-4H PRN (Reason: migraine) Referrals: Sarah Dunbar MD [Primary Care Provider] - Stand Alone Forms: Patient Portal/API/Survey
--- NOTE | 2024-09-07 23:16 | DI.CT.S_ITS ---
PROCEDURE: CT ABDOMEN PELVIS W CON INDICATIONS: n/v/diarrhea acute on chronic, prolonged pain TECHNIQUE: After the administration of intravenous contrast, axial sections acquired from the lung bases to the pubic symphysis. Coronal and sagittal reformats were performed. For radiation dose reduction, the following was used: automated exposure control, adjustment of mA and/or kV according to patient size. COMPARISON: [facility], CT, CT ABDOMEN PELVIS W CON, 07/25/2024, 18:02. FINDINGS: Image quality: Diagnostic. Lower Chest: Small hiatal hernia. ABDOMEN: Liver: Focal fat adjacent to the falciform ligament. Gallbladder: Absent. Biliary ducts: No biliary dilation. Pancreas: No ductal dilation. Spleen: Size is within normal limits. Stable cystic lesion with peripheral calcifications, probably a posttraumatic pseudocyst. Adrenal Glands: No adrenal nodules. Kidneys and Ureters: No hydronephrosis. No solid mass. No complex renal cystic lesion which requires follow up. Stomach and Bowel: Normal colonic caliber, without significant wall thickening. Appendectomy. Colonic diverticulosis without evidence of diverticulitis. Fecal debris within the small bowel. Gastric sleeve surgery. Peritoneum: No abnormal intraperitoneal fluid. No free air. Ventral Wall: No significant ventral hernia. Abdominal Nodes: No retroperitoneal or mesenteric adenopathy by size criteria. Vessels: Aorta and inferior vena cava are normal in size. PELVIS: Pelvic Organs: Hysterectomy. Left ovary not visualized. Right ovarian corpus luteum period Bladder: No bladder wall thickening, accounting for underdistention. Pelvic Nodes: No enlarged lymph nodes. Miscellaneous: No inguinal hernias are seen. Bones: No aggressive osseous abnormality. IMPRESSION: Fecal debris within the small-bowel, usually indicating small intestinal bacterial overgrowth versus slow transit. Colonic diverticulosis without evidence of diverticulitis. Right corpus luteum, which requires no further follow-up. Other chronic findings as above. Dictated by: Pavan Farfan M.D. on 09/07/2024 at 23:32 Approved by: Pavan Farfan M.D. on 09/07/2024 at 23:36
[2024-09-07] MEDS: SODIUM CHLORIDE 0.9% 1,000 ML 1000 ML IV (23:40)
[2024-09-07] MEDS: HALOPERIDOL 5 MG/ML VIAL IV (23:40)
[2024-09-08] VITALS (16 sets, daily range): BP systolic 107–130; BP diastolic 57–82; PULSE 57–85; RESP 18; O2SAT 94–100
[2024-09-08] MEDS: HYDROMORPHONE 0.5 MG INJ IV (02:00)
[2024-09-08] MEDS: METOCLOPRAMIDE 10 MG/2 ML INJ IV (06:17)
== END 2024-09-08 07:01 | disposition home or self-care (01) ==
PROVIDERS: Emergency Provider Emergency Medicine; PCP Student in an Organized Health Care Education/Training Program
DX: R11.2 Nausea with vomiting, unspecified (principal); Z87.19 Personal history of other diseases of the digestive system; Z98.890 Other specified postprocedural states; Z90.49 Acquired absence of other specified parts of digestive tract
CPT/HCPCS: 36415; 74177; 80053; 81003; 81025; 83690; 85025; 96361; 96374; 96375; 99284; J1171; J1630; J2405; J2765; Q9967

== ENCOUNTER 2024-09-16 11:42 | Emergency (ER) | payer OTHER, SELFPAY ==
[2024-09-16] VITALS (17 sets, daily range): BP systolic 104–169; BP diastolic 70–115; PULSE 61–123; RESP 18; TEMP 36.9; O2SAT 97–100; BMI 29.8
--- NOTE | 2024-09-16 12:01 | ED_ITS ---
HPI - Abdominal Pain General Chief Complaint: Urogenital-Female Stated Complaint: lower rt quad px, nausea, vomiting, sent by PCP Time Seen by Provider: 09/16/24 12:00 Source: patient, RN notes reviewed and old records reviewed Mode of arrival: Ambulatory Limitations: no limitations History of Present Illness HPI narrative: 43-year-old female with a history of abdominal migraines, multiple abdominal surgeries including abdominal plasty, oophorectomy, gastric sleeve, cholecystectomy, appendectomy and tubal ligation and also had an ex lap were found there was some retained dwight which were removed. Patient presents with complaint of right flank pain did have a hospitalization in July for what sounds like pyelonephritis. Patient states this feels like when she had a kidney infection. She states it started with some right flank pain that has been worsening over several days she has had some urinary frequency and she notes it hurts a little bit more in her abdomen right when she urinates. No fevers. She has had some nausea and vomiting but states she has this frequently and has not been atypical symptoms. She was has a little bit of diarrhea. No black bloody stools. Patient contacted her primary care who told her to come to the emergency department. Patient does note that when she was hospitalized that there was some resistance she states she was ultimately discharged home cefdinir. Denies any antibiotic allergies does have reported allergies to gluten, coconut, NSAIDs, Tessalon Perles and escitalopram. No tobacco, occasional alcohol, no recreational drugs. Dr. Dunbar she was primary care provider. Related Data Home Medications Medication Instructions Recorded Confirmed alprazolam 0.5 mg tablet 0.5 mg PO BID PRN Anxiety 05/06/23 08/24/24 sumatriptan succinate 50 mg tablet 50 mg PO Q2-4H PRN migraine 05/10/24 08/24/24 topiramate 50 mg tablet 50 mg PO BID 07/05/24 08/24/24 metoclopramide HCl 5 mg tablet 5 mg PO QAC 07/24/24 08/24/24 (Reglan) clonazepam 0.5 mg tablet 0.5 mg PO BID 08/24/24 08/24/24 Previous Rx's Medication Instructions Recorded sumatriptan succinate 50 mg tablet 50 mg PO Q2-4H PRN migraine 04/28/24 headache #9 tabs estradiol 0.5 mg tablet 0.5 mg PO DAILY #30 tabs 07/05/24 ondansetron HCl 4 mg tablet 4 mg PO Q8H PRN nausea/vomiting 09/07/24 #30 tabs promethazine 50 mg rectal 50 mg DE Q6H PRN nausea and 09/08/24 suppository vomiting #12 ea cefpodoxime 200 mg tablet 200 mg PO BID #20 tabs 09/16/24 oxycodone 5 mg tablet 5 mg PO Q6H PRN pain #10 tabs 09/16/24 Allergies Allergy/AdvReac Type Severity Reaction Status Date / Time gluten Allergy Celiac Verified 09/16/24 11:50 coconut AdvReac Intermediate Hives Verified 09/16/24 11:50 NSAIDS (Non-Steroidal AdvReac Mild Gastrointestinal Verified 09/16/24 11:50 Anti-Inflamma Upset benzonatate AdvReac Unknown Hives Verified 09/16/24 11:50 [From Tessalon Perles] escitalopram [From Lexapro] AdvReac Unknown Hallucinati Verified 09/16/24 11:50 ng Review of Systems Review of Systems ROS Unobtainable: All systems reviewed & are unremarkable except as noted in HPI and below Patient History Medical History Left corneal abrasion Headache Polycystic ovary disease Celiac disease GERD with apnea Hypertension Bipolar disorder Surgical History Status post tubal ligation History of section H/O abdominoplasty H/O oophorectomy H/O gastric sleeve History of cholecystectomy History of appendectomy Social History marital status: household members: significant other and children lives independently: Yes occupational status: employed Smoking Status: Never smoker alcohol intake: never substance use type: marijuana Smoking Status: Never smoker alcohol intake frequency: holidays/special occasions only Exam Narrative Exam Narrative: GENERAL: Alert and oriented x three, female in moderate distress HEENT: Head normocephalic, atraumatic, EOMI, pupils reactive, face symmetric, moist mucous membranes NECK: Supple, full range of motion CARDIOVASCULAR: Regular rate and rhythm without murmurs, rubs or gallops. RESPIRATORY: Breath sounds equal bilaterally, no wheezes rales or rhonchi. ABDOMEN: Soft, nontender but increases pain in her right flank with palpation. Normoactive bowel sounds all 4 quadrants. No guarding or rebound, rigidity, no mass : Positive for right CVA tenderness, no left CVA tenderness EXTREMITIES: Normal range of motion, no clubbing or edema. Neurovascularly intact NEUROLOGICAL: Cranial nerves II through XII grossly intact. Moving all extremities SKIN: Warm, dry, no petechiae, no rashes or lesions. Initial Vital Signs Initial Vital Signs: Vital Signs Temperature 98.4 F 09/16/24 11:45 Pulse Rate 91 H 09/16/24 11:45 Respiratory Rate 18 09/16/24 11:45 Blood Pressure 104/78 09/16/24 11:45 Pulse Oximetry 99 09/16/24 11:45 Oxygen Delivery Method Room Air 09/16/24 11:45 Course Orders Ordered: ED Orders 09/16/24 11:55 Ictotest Urine Stat Urine Culture Stat Urine Microscopic Stat 09/16/24 12:00 CBC Auto Diff [Complete Blood Count AUTO DIFF] Stat CMP [Comprehensive Metabolic Panel] Stat Lipase Stat 09/16/24 12:33 US renal complete Stat Discontinued Medications Ceftriaxone Sodium 2,000 mg/ (Sodium Chloride) 100 mls @ 200 mls/hr IV NOW ONE Stop: 09/16/24 12:34 Last Infusion: 09/16/24 13:44 Dose: Infused Documented By: MARY LOU Admin: 09/16/24 13:11 Dose: 200 mls/hr Documented By: MARY LOU Sodium Chloride (Normal Saline 0.9%) 1,000 mls @ 1,000 mls/hr IV BOLUS ONE Stop: 09/16/24 13:32 Last Infusion: 09/16/24 15:12 Dose: Infused Documented By: MARY LOU Admin: 09/16/24 13:04 Dose: 1,000 mls/hr Documented By: MARY LOU Morphine Sulfate (Morphine 4 Mg/Ml Inj) 4 mg IV NOW ONE Stop: 09/16/24 12:34 Last Admin: 09/16/24 13:05 Dose: 4 mg Documented By: MARY LOU Morphine Sulfate (Morphine 4 Mg/Ml Inj) 4 mg IV NOW ONE Stop: 09/16/24 16:44 Last Admin: 09/16/24 16:50 Dose: 4 mg Documented By: MARY LOU Ondansetron HCl (Ondansetron 4 Mg/2 Ml Inj) 4 mg IV NOW PRN PRN Reason: Nausea And Vomiting Ondansetron HCl (Ondansetron 4 Mg Odt) 4 mg SL NOW PRN PRN Reason: Nausea And Vomiting Ondansetron HCl (Ondansetron 4 Mg/2 Ml Inj) 4 mg IV NOW ONE Stop: 09/16/24 12:34 Last Admin: 09/16/24 13:05 Dose: 4 mg Documented By: MARY LOU Vital Signs Vital signs: Vital Signs - 8 hr 09/16/24 11:45 09/16/24 11:53 09/16/24 11:54 Temperature 98.4 F Pulse Rate 91 H 99 H Respiratory Rate 18 Blood Pressure 104/78 131/96 H Pulse Oximetry 99 97 Oxygen Delivery Method Room Air 09/16/24 11:54 09/16/24 12:00 09/16/24 12:00 Temperature Pulse Rate 99 H 91 H Respiratory Rate Blood Pressure 125/90 Pulse Oximetry 98 98 Oxygen Delivery Method 09/16/24 12:30 09/16/24 12:30 09/16/24 13:00 Temperature Pulse Rate 95 H 90 Respiratory Rate Blood Pressure 134/79 Pulse Oximetry 98 98 Oxygen Delivery Method 09/16/24 13:02 09/16/24 13:02 09/16/24 13:30 Temperature Pulse Rate 78 69 Respiratory Rate Blood Pressure 169/115 H Pulse Oximetry 99 98 Oxygen Delivery Method 09/16/24 13:31 09/16/24 13:31 09/16/24 14:00 Temperature Pulse Rate 67 78 Respiratory Rate Blood Pressure 132/70 Pulse Oximetry 99 100 Oxygen Delivery Method 09/16/24 14:00 09/16/24 14:30 09/16/24 14:31 Temperature Pulse Rate 70 79 Respiratory Rate Blood Pressure 152/89 H Pulse Oximetry 100 100 Oxygen Delivery Method 09/16/24 14:31 09/16/24 15:00 09/16/24 15:30 Temperature Pulse Rate 61 75 Respiratory Rate Blood Pressure 159/86 H Pulse Oximetry 99 97 Oxygen Delivery Method 09/16/24 16:00 09/16/24 16:32 09/16/24 17:00 Temperature Pulse Rate 94 H 123 H 72 Respiratory Rate Blood Pressure Pulse Oximetry 97 Oxygen Delivery Method MDM - Abdominal Pain Lab Data 09/16/24 12:00 09/16/24 12:00 Labs: Lab Results 09/16/24 09/16/24 Range/Units 11:55 12:00 WBC 12.0 H (4.5-11.0) X10^3/uL RBC 4.44 (4.0-5.2) X10^6/uL Hgb 11.7 L (12.0-16.0) g/dL Hct 35.9 L (36-46) % MCV 81.0 (80-100) fL MCH 26.4 (26-34) PG MCHC 32.6 (30-36) % RDW 15.1 H (11.6-14.8) % Plt Count 350 (150-400) X10^3/uL Neut % (Auto) 72.7 (50-75) % Lymph % (Auto) 19.4 L (25-40) % Kaufman % (Auto) 7.2 (3-14) % Eos % (Auto) 0.2 L (2-4) % Baso % (Auto) 0.5 (0-2) % Neut # (Auto) 8700 H (9872-5915) /uL Lymph # (Auto) 2300 (4734-4333) /uL [place]aufman # (Auto) 900 (0-900) /uL Eos # (Auto) 0 (0-450) /uL Baso # (Auto) 100 (0-100) /uL Sodium 139 (137-145) mmol/L Potassium 4.0 (3.4-5.1) mmol/L Chloride 109 H (98-107) mmol/L Carbon Dioxide 20 L (22-32) mmol/L BUN 8 (7-17) mg/dL Creatinine 0.46 L (0.52-1.04) mg/dL Estimated GFR > 60 (>60) mL/min BUN/Creatinine Ratio 17.4 (6-22) Glucose 112 H (70-100) mg/dL Calcium 9.2 (8.4-10.2) mg/dL Total Bilirubin 0.5 (0.2-1.3) mg/dL AST 41 H (14-36) IU/L ALT 22 (<35) IU/L Alkaline Phosphatase 77 (38-126) U/L Total Protein 7.2 (6.3-8.2) g/dL Albumin 4.5 (3.5-5.0) g/dL Globulin 2.7 (1.7-4.1) g/dL Albumin/Globulin Ratio 1.7 (1.0-2.8) Lipase 119 (23-300) U/L Ur Bilirubin Confirm Negative (Negative) Urine RBC 1-5/hpf (0-5/HPF) Urine WBC 10-30/hpf H (0-5/HPF) Ur Squamous Epith Cells 5-10 /hpf H (0-5/HPF) Urine Bacteria Many (>30) H (None) Ur Culture Indicated? Specimen cultured Vol Urine Centrifuged 10ml (spun) Point of care testing: Point of Care Testing Test Results Negative Urine Dip Bedside Urine Glucose Negative Bedside Urine Bilirubin ++ 2 Bedside Urine Ketone +/- 5 Urine Specific [place] 1.025 Bedside Urine Occult Blood - Negative Bedside Urine pH 6.0 Bedside Urine Protein + 30 Bedside Urine Urobilinogen - Negative Bedside Urine Nitrite + Positive Bedside Urine Leukocytes ++ 125 Esterase Imaging Data Renal US: Radiologist's Impression: Janet Escobar?(Janet)??43??F??1980 ? Allergy/Adv: gluten, coconut, NSAIDS (Non-Steroidal Anti-Inflamma, benzonatate, escitalopram (More??) Close Renal Ultrasound (Signed) Hamzah Acevedo - 09/16/24 Abdomen/Pelvis CT (Signed) Pavan Farfan - 09/07/24 Chest X-Ray (Signed) Kartik Morrison - 09/04/24 Abdomen/Pelvis CT (Signed) Romel Wills - 07/25/24 Abdomen/Pelvis CT (Signed) Navarro Ceballos - 07/17/24 Pelvis Ultrasound (Signed) Navarro Ceballos - 07/17/24 Abdomen/Pelvis CT (Signed) Ailyn Aguilar - 06/10/24 Telemetry Strips 04/26/24 Abdomen/Pelvis CT (Signed) Gisselle Hernandes - 04/26/24 Gastrografin Study (Signed) Pavan Farfan - 04/01/24 Abdomen/Pelvis CT (Signed) Chase Steele - 03/31/24 Abdomen/Pelvis CT (Signed) Gisselle Hernandes - 03/14/24 Abdomen X-Ray (Signed) Gisselle Hernandes - 03/08/24 Abdomen/Pelvis CT (Signed) JeetJamee - 01/26/24 Abdomen/Pelvis CT (Signed) Hamzah Acevedo - 12/10/23 Abdomen/Pelvis CTA (Signed) ScarletClaudio - 10/21/23 Abdomen/Pelvis CT (Signed) Gisselle Hernandes - 10/14/23 Pelvis Ultrasound (Signed) Arnold Page - 10/14/23 Abdomen/Pelvis CT (Signed) Romel Wills - 05/17/23 Pelvis Ultrasound (Signed) Tien Pham - 05/06/23 Pelvis Ultrasound (Signed) Pavan Farfan - 05/05/23 Abdomen/Pelvis CT (Signed) Navarro Ceballos - 05/05/23 Abdomen/Pelvis CT (Signed) Tien Pham - 03/13/23 Renal Ultrasound (Signed) Gurvinder Mckeon - 10/28/22 Abdomen/Pelvis CT (Signed) Joe Gonzales - 10/21/22 Pelvis Ultrasound (Signed) Joe Gonzales - 10/21/22 Renal Ultrasound (Signed) Joe Gonzales - 10/21/22 Telemetry Strips 05/29/22 Abdomen/Pelvis CT (Signed) Arnold Page - 05/26/22 Telemetry Strips 05/23/22 Abdomen/Pelvis CT (Signed) Paramjit Marr - 05/22/22 Vascular Ultrasound (Signed) Paramjit Marr - 03/08/22 Lower Extremity MRI (Signed) Navarro Ceballos - 03/08/22 Vascular Ultrasound (Signed) Rasheed Tanner - 03/01/22 Pelvis Ultrasound (Signed) Rasheed Tanner - 11/27/21 Knee X-Ray (Signed) Chase Steele - 11/02/21 Abdomen/Pelvis CT (Signed) Mark Anthony Novak - 08/16/[address] [address] Ultrasound Report Signed Patient: Janet Escobar MR#: [id number] : 1980 Acct:[id number] Age/Sex: 43 / F Date of Service: 09/16/24 Loc: ED Accession Number: [id number] Procedure: US renal complete Ordering Provider: Karen Milan D.O. PROCEDURE: US RENAL COMPLETE INDICATIONS: RIGHT FLANK PAIN ?PYELONEPHRITIS TECHNIQUE: Real-time scanning was performed of the kidneys and bladder, with image documentation. COMPARISON: [facility], CT, CT ABDOMEN PELVIS W CON, 09/07/2024, 23:22. [facility], US, US RENAL COMPLETE, 10/28/2022, 17:55. FINDINGS: Kidneys: Kidneys are normal in size. Right kidney measures 11.7 cm long; left kidney measures 11.2 cm long. Right renal cortical thickness is 1.6 cm; left renal cortical thickness is 1.9 cm. Renal cortical echotexture is normal. No hydronephrosis or nephrolithiasis. No suspicious solid mass lesions. Bladder: Pre-void bladder volume is 136 mL. Post-void residual is 5 mL. Pre- void images demonstrate no intraluminal masses or stones. On pre-void images, neither ureteral jets are noted with color Doppler interrogation. (Of note, ureteral jets may not be detectable in up to 25% of cases due to insufficient differences in specific gravity between ureteral and bladder urine). Miscellaneous: No free pelvic fluid. Cyst in the inferior spleen with internal debris and rim calcifications measuring 3.3 x 4.2 x 4.7 cm. Incidental note hepatic steatosis. IMPRESSION: 1. The kidneys and urinary bladder are normal in appearance. 2. Incidental note of hepatic steatosis. 3. Redemonstration of splenic cyst with rim calcifications as seen on prior CT. Dictated by: Hamzah Acevedo M.D. on 09/16/2024 at 16:46 Approved by: Hamzah Acevedo M.D. on 09/16/2024 at 16:48 [facility] Narrative Medical decision making narrative: 43-year-old with recurrent abdominal issues patient has developed right flank pain which he states is different than her typical abdominal pain suspect she may have pyelonephritis she did have a hospitalization in July for several days at [facility]. Patient's exam seems consistent with pyelonephritis she has been afebrile. She would some occasional nausea vomiting but not persistent. Patient has had kidney stones once before but states the pain was much more intense during that. We will obtain labs, fluids and ultrasound to evaluate for any obstructive changes. Urine is negative. Point of care is positive for nitrates positive for leukocyte esterase. Urine microscopy is positive for 1-5 RBCs 10-30 WBCs 5- 10 squamous with many bacteria specimen was sent for culture. Labs she was a white count of 12 consistent with priors hemoglobin 7.7 also consistent with the most recent priors platelets are 350. Sodium of 139 potassium 4 chloride 109 CO2 of 20 BUN 8 creatinine 0.46 glucose of 112 calcium is 9.2 AST is 41 with a bilirubin of 0.5 and an ALT of 22 and alk-phos open lipase is 119. Ultrasound renal kidneys and urinary bladder normal in appearance incidental note of hepatic steatosis redemonstration splenic cyst with the room calcifications seen on prior CT. Patient received fluids, antiemetics and pain medication. Patient had improvement of symptoms but had recurrence of the pain after ultrasound was given additional dose. Has not had any vomiting here in the department. Reviewed findings with the patient was suspect she does have pyelonephritis she was nontoxic does not appear infected no obstructive changes on workup she was already aware of splenic cyst she believes she would cefdinir with prior hospitalization she did not know that it was something that started with cef--and states it is there was some resistance attempted to get records from [facility] in [place] but was unsuccessful. Discussed return precautions we will give short course of pain medication patient states she was antinausea medication at home discussed expected course of symptoms and return precautions. Patient expresses her understanding all questions answered. Discharge Plan Departure Patient Disposition: Home Clinical Impression: Pyelonephritis Instructions: DI for Kidney Infection Activity Restrictions/Additional Instructions: Your workup today is consistent with pyelonephritis please take oral antibiotics until completed. There is a urine culture pending this typically takes 48-72 hours to result if it shows resistance you would be contacted to change antibiotics. Prescriptions sent to [facility] in [place]. You can take acetaminophen up to a 1000 mg every 6 hours as needed for pain. If inadequate you can take oxycodone 1-2 tablets every 6 hours as needed. This medication can make you sleepy do not drive, perform hazardous activities or make any major decisions while taking it. This medication will make you constipated please take a stool softener once to twice daily until stools are soft and regular. Please return for fevers, persistent vomiting, worsening symptoms, black or bloody stools, inability to urinate or other new or concerning changes. Prescriptions: New cefpodoxime 200 mg tablet 200 mg PO BID Qty: 20 0RF Rx Instructions: must administer with a meal/food oxycodone 5 mg tablet 5 mg PO Q6H PRN (Reason: pain) Qty: 10 0RF No Action topiramate 50 mg tablet 50 mg PO BID estradiol 0.5 mg tablet 0.5 mg PO DAILY Qty: 30 3RF clonazepam 0.5 mg tablet 0.5 mg PO BID ondansetron HCl 4 mg tablet 4 mg PO Q8H PRN (Reason: nausea/vomiting) Qty: 30 3RF sumatriptan succinate 50 mg tablet 50 mg PO Q2-4H PRN (Reason: migraine headache) Qty: 9 0RF Rx Instructions: do not exceed 4 doses per 24 hrs metoclopramide HCl [Reglan] 5 mg Tablet 5 mg PO QAC Rx Instructions: administer 30 minutes before meals promethazine 50 mg suppository 50 mg DE Q6H PRN (Reason: nausea and vomiting) Qty: 12 0RF alprazolam 0.5 mg tablet 0.5 mg PO BID PRN (Reason: Anxiety) sumatriptan succinate 50 mg tablet 50 mg PO Q2-4H PRN (Reason: migraine) Referrals: Sarah Dunbar MD [Primary Care Provider] - Stand Alone Forms: Patient Portal/API/Survey
--- NOTE | 2024-09-16 12:33 | DI.US.S_ITS ---
PROCEDURE: US RENAL COMPLETE INDICATIONS: RIGHT FLANK PAIN ?PYELONEPHRITIS TECHNIQUE: Real-time scanning was performed of the kidneys and bladder, with image documentation. COMPARISON: [facility], CT, CT ABDOMEN PELVIS W CON, 09/07/2024, 23:22. [facility], US, US RENAL COMPLETE, 10/28/2022, 17:55. FINDINGS: Kidneys: Kidneys are normal in size. Right kidney measures 11.7 cm long; left kidney measures 11.2 cm long. Right renal cortical thickness is 1.6 cm; left renal cortical thickness is 1.9 cm. Renal cortical echotexture is normal. No hydronephrosis or nephrolithiasis. No suspicious solid mass lesions. Bladder: Pre-void bladder volume is 136 mL. Post-void residual is 5 mL. Pre-void images demonstrate no intraluminal masses or stones. On pre-void images, neither ureteral jets are noted with color Doppler interrogation. (Of note, ureteral jets may not be detectable in up to 25% of cases due to insufficient differences in specific gravity between ureteral and bladder urine). Miscellaneous: No free pelvic fluid. Cyst in the inferior spleen with internal debris and rim calcifications measuring 3.3 x 4.2 x 4.7 cm. Incidental note hepatic steatosis. IMPRESSION: 1. The kidneys and urinary bladder are normal in appearance. 2. Incidental note of hepatic steatosis. 3. Redemonstration of splenic cyst with rim calcifications as seen on prior CT. Dictated by: Hamzah Acevedo M.D. on 09/16/2024 at 16:46 Approved by: Hamzah Acevedo M.D. on 09/16/2024 at 16:48
[2024-09-16 12:37] LABS: Add Manual Diff / Slide Review NO; Basophils Absolute Auto 100 /uL (0-100); Basophils Percent Auto 0.5 % (0-2); Eosinophils Absolute Auto 0 /uL (0-450); Eosinophils Percent Auto 0.2 % (2-4); Hematocrit 35.9 % (36-46); Hemoglobin 11.7 g/dL (12.0-16.0); Lymphocytes Absolute Auto 2300 /uL (1100-4500); Lymphocytes Percent Auto 19.4 % (25-40); Mean Corpuscular HGB Conc 32.6 % (30-36); Mean Corpuscular Hemoglobin 26.4 PG (26-34); Monocytes Absolute Auto 900 /uL (0-900); Monocytes Percent Auto 7.2 % (3-14); Neutrophils Absolute Auto 8700 /uL (1500-7000); Neutrophils Percent Auto 72.7 % (50-75); Platelet Count 350 X10^3/uL (150-400); Red Blood Cell Count 4.44 X10^6/uL (4.0-5.2); Red Cell Distribution Width 15.1 % (11.6-14.8)
[2024-09-16 12:54] LABS: Ictotest Urine Negative (Negative); RBC Urine 1-5/HPF (0-5/HPF); Urine Volume 10mL (spun); WBC Urine 10-30/HPF (0-5/HPF)
[2024-09-16 12:55] LABS: Bacteria Urine Many (>30); Culture Indicated Urine Specimen Cultured; Squamous Epithelial Cell Urine 5-10 /HPF (0-5/HPF)
[2024-09-16 12:57] LABS: Alanine Aminotransferase 22 IU/L (<35); Albumin 4.5 g/dL (3.5-5.0); Albumin Globulin Ratio 1.7 (1.0-2.8); Alkaline Phosphatase 77 U/L (38-126); Aspartate Aminotransferase 41 IU/L (14-36); BUN Creatinine Ratio 17.4 (6-22); Bilirubin Total 0.5 mg/dL (0.2-1.3); Blood Urea Nitrogen 8 mg/dL (7-17); Calcium 9.2 mg/dL (8.4-10.2); Carbon Dioxide 20 mmol/L (22-32); Chloride 109 mmol/L (98-107); Estimated Glomerular Filt Rate > 60 mL/min (>60); Globulin 2.7 g/dL (1.7-4.1); Glucose 112 mg/dL (70-100); HEMOLYSIS < 15 (0-50); Lipase 119 U/L (23-300); Sodium 139 mmol/L (137-145); Total Protein 7.2 g/dL (6.3-8.2)
[2024-09-16] MEDS: SODIUM CHLORIDE 0.9% 1,000 ML 1000 ML IV (13:04)
[2024-09-16] MEDS: MORPHINE 4 MG/ML INJ IV ×2 (13:05→16:50)
[2024-09-16] MEDS: ONDANSETRON 4 MG/2 ML INJ IV (13:05)
[2024-09-16] MEDS: cefTRIAXone 2,000 MG in SODIUM CHLORIDE 0.9% 100 ML 200 MG IV (13:11)
== END 2024-09-16 17:31 | disposition home or self-care (01) ==
PROVIDERS: Emergency Provider Emergency Medicine; PCP Student in an Organized Health Care Education/Training Program
DX: N12 Tubulo-interstitial nephritis, not specified as acute or chronic (principal); R11.2 Nausea with vomiting, unspecified
CPT/HCPCS: 76770; 80053; 81003; 81015; 81025; 83690; 85025; 87077; 87086; 87186; 96361; 96365; 96375; 96376; 99283; 99284; J0696; J2270; J2405

== ENCOUNTER → 2024-09-23 16:53 | Outpatient (CLI) | payer OTHER, SELFPAY ==
[2024-09-05 01:00] VITALS: BMI 29.7
[2024-09-23 17:42] LABS: Add Manual Diff / Slide Review NO; Basophils Absolute Auto 100 /uL (0-100); Basophils Percent Auto 0.8 % (0-2); Eosinophils Absolute Auto 100 /uL (0-450); Eosinophils Percent Auto 1.6 % (2-4); Hematocrit 33.2 % (36-46); Hemoglobin 10.9 g/dL (12.0-16.0); Lymphocytes Absolute Auto 2500 /uL (1100-4500); Lymphocytes Percent Auto 29.6 % (25-40); Mean Corpuscular HGB Conc 32.9 % (30-36); Mean Corpuscular Hemoglobin 26.8 PG (26-34); Mean Corpuscular Volume 81.5 fL (80-100); Monocytes Absolute Auto 800 /uL (0-900); Neutrophils Absolute Auto 4800 /uL (1500-7000); Platelet Count 323 X10^3/uL (150-400); Red Blood Cell Count 4.08 X10^6/uL (4.0-5.2); Red Cell Distribution Width 14.8 % (11.6-14.8); White Blood Cell Count 8.3 X10^3/uL (4.5-11.0)
[2024-09-23 18:00] LABS: Alanine Aminotransferase 18 IU/L (<35); Albumin 4.3 g/dL (3.5-5.0); Albumin Globulin Ratio 1.7 (1.0-2.8); Alkaline Phosphatase 65 U/L (38-126); Aspartate Aminotransferase 19 IU/L (14-36); BUN Creatinine Ratio 20.5 (6-22); Bilirubin Total 0.4 mg/dL (0.2-1.3); Blood Urea Nitrogen 9 mg/dL (7-17); Calcium 8.6 mg/dL (8.4-10.2); Carbon Dioxide 25 mmol/L (22-32); Chloride 106 mmol/L (98-107); Estimated Glomerular Filt Rate > 60 mL/min (>60); Globulin 2.5 g/dL (1.7-4.1); Glucose 103 mg/dL (70-100); HEMOLYSIS < 15 (0-50); Potassium 3.5 mmol/L (3.4-5.1); Sodium 137 mmol/L (137-145); Total Protein 6.8 g/dL (6.3-8.2)
== END ==
LOC: LAB 16:54
PROVIDERS: PCP Student in an Organized Health Care Education/Training Program; Referring Provider Family Medicine; Visit Provider Family Medicine
DX: N12 Tubulo-interstitial nephritis, not specified as acute or chronic (principal); R11.2 Nausea with vomiting, unspecified; R10.9 Unspecified abdominal pain
CPT/HCPCS: 36415; 80053; 85025

== ENCOUNTER → 2024-10-03 12:38 | Outpatient (CLI) | payer OTHER, SELFPAY ==
[2024-09-05 01:00] VITALS: BMI 29.7
--- NOTE | 2024-10-03 12:40 | DI.RAD.S_ITS ---
PROCEDURE: XR FINGER RT MIN 2V INDICATIONS: Right thumb injury, slammed in car door TECHNIQUE: AP hand, 2 views of the 1st finger(s) acquired. COMPARISON: None. FINDINGS: Bones: No fractures or dislocations. No suspicious bony lesions. Normal appearing sesamoid bones can be seen. Soft tissues: No suspicious soft tissue calcifications. IMPRESSION: No displaced fracture is seen on these plain films. If there is point tenderness (or other clinical suspicion for a fracture not seen on these images) then a dedicated CT could be considered for further evaluation, if clinically appropriate. Dictated by: Rasheed Tanner M.D. on 10/03/2024 at 11:56 Approved by: Rasheed Tanner M.D. on 10/03/2024 at 11:57
== END ==
LOC: RAD 12:39
PROVIDERS: PCP Student in an Organized Health Care Education/Training Program; Referring Provider Physician Assistant Surgical; Visit Provider Physician Assistant Surgical
DX: S63.601A Unspecified sprain of right thumb, initial encounter (principal); W23.0XXA Caught, crushed, jammed, or pinched between moving objects, initial encounter
CPT/HCPCS: 73140

== ENCOUNTER 2024-10-18 18:15 | Emergency (ER) | payer OTHER, SELFPAY ==
[2024-10-18 18:18] VITALS: BP 174/84; PULSE 62; RESP 18; TEMP 36.8; O2SAT 100; BMI 29.0
== END 2024-10-18 19:40 | disposition left against medical advice (07) ==
PROVIDERS: Emergency Provider Emergency Medicine; PCP Student in an Organized Health Care Education/Training Program
DX: L08.9 Local infection of the skin and subcutaneous tissue, unspecified (principal)
CPT/HCPCS: 99281

== ENCOUNTER 2024-10-25 17:13 | Inpatient (IN) | payer MEDICARE, SELFPAY ==
[2024-10-25 17:21] VITALS: BP 166/89; PULSE 66; RESP 16; TEMP 37.2; O2SAT 98; BMI 30.7
--- NOTE | 2024-10-25 18:37 | PC.NURSE ---
Pt sent by PCP to r/o tenosynovitis as well as have her nail removed. Pt went to [facility] in [facility] after shutting her R thumb in car door. the subungal hematoma was drained and the nail was removed and the nail bed debrided. The nail was then sewn back on with disolveable sutures at [facility]. Pt's finger appears mildly red and swollen and pt states she is having trouble articulating the thumb therefore sent to ED. 2+ radial pulse
--- NOTE | 2024-10-25 19:06 | PC.NURSE ---
Finger has some slight redness at the tip. nail intact and appears to be healing well. Fingernail was reattached a week ago
--- NOTE | 2024-10-25 20:01 | ED_ITS ---
HPI - Extremity Injury (Upper) General Chief Complaint: Extremity Injury, Upper Stated Complaint: Smashed Right Finger in Door, Sent by PCP Time Seen by Provider: 10/25/24 19:25 History of Present Illness HPI narrative: 43-year-old female with right thumb pain after injury 3 weeks ago, PCP concern for possible underlying tenosynovitis. Patient recalls catching her right thumb in a car door with initial injury about 3 weeks ago, was seen at walk-in clinic with x-ray not demonstrating any fracture at that time. Saw PCP for 5 days later, with concern for finger infection, was started on 7 day course of oral Keflex, in follow up initially looked about the same. Patient had worsening thumb pain swelling symptoms and presented to [facility] ED on 10/18/24 one week ago, provider there apparently pulled off the nail, and irrigated underneath, and then replaced the nail position and sutured in place with absorbable stitches, was told to complete the course of antibiotics, completed the course of Keflex 3 days ago. Wound check today with PCP, swelling and pain to the distal right affected thumb, can not bend at IP, concern for wound infection, referred for further consultation/imaging. Related Data Home Medications Medication Instructions Recorded Confirmed alprazolam 0.5 mg tablet 0.5 mg PO BID PRN Anxiety 05/06/23 10/26/24 metoclopramide HCl 5 mg tablet 5 mg PO QAC 07/24/24 10/26/24 (Reglan) clonazepam 0.5 mg tablet 0.5 mg PO BID 08/24/24 10/26/24 lumateperone 42 mg capsule 42 mg PO DAILY 10/26/24 10/26/24 (Caplyta) Previous Rx's Medication Instructions Recorded sumatriptan succinate 50 mg tablet 50 mg PO Q2-4H PRN migraine 04/28/24 headache #9 tabs estradiol 0.5 mg tablet 0.5 mg PO DAILY #30 tabs 07/05/24 ondansetron HCl 4 mg tablet 4 mg PO Q8H PRN nausea/vomiting 09/07/24 #30 tabs oxycodone 5 mg tablet 5 mg PO TID PRN pain #14 tabs 10/19/24 Allergies Allergy/AdvReac Type Severity Reaction Status Date / Time gluten Allergy Celiac Verified 10/25/24 16:45 coconut AdvReac Intermediate Hives Verified 10/25/24 16:45 NSAIDS (Non-Steroidal AdvReac Mild Gastrointestinal Verified 10/25/24 16:45 Anti-Inflamma Upset benzonatate AdvReac Unknown Hives Verified 10/25/24 16:45 [From Tessalblayne Dhaliwal] escitalopram [From Lexapro] AdvReac Unknown Hallucinati Verified 10/25/24 16:45 ng Patient History Medical History Left corneal abrasion Headache Polycystic ovary disease Celiac disease GERD with apnea Hypertension Bipolar disorder Surgical History Status post tubal ligation History of section H/O abdominoplasty H/O oophorectomy H/O gastric sleeve History of cholecystectomy History of appendectomy Social History marital status: household members: significant other and children lives independently: Yes occupational status: employed Smoking Status: Never smoker alcohol intake: never substance use type: marijuana Smoking Status: Never smoker alcohol intake frequency: holidays/special occasions only Exam Narrative Exam Narrative: GENERAL: Well-developed patient, in mild distress. HEAD: Atraumatic. Normocephalic. EYES: Pupils equal round and reactive. Extraocular motions intact. No scleral icterus. No injection or drainage. ENT: Nose without bleeding, purulent drainage. Throat without erythema, tonsillar hypertrophy or exudate. Airway patent. NECK: Trachea midline. Non tender CARDIOVASCULAR: Regular rate and rhythm without murmurs, gallops, or rubs. RESPIRATORY: Clear to auscultation. Breath sounds equal bilaterally. No wheezes, rales, or rhonchi. GASTROINTESTINAL: Abdomen soft, non-tender, nondistended. EXTREMITIES: Right thumb with swelling from tip to MCP, extended position at IP, not able to really flex at the IP due to pain and swelling. Nail appears present and tucked under the cuticle shelf, no sutures seen but apparently they were absorbable type. No fluctuance obvious. BACK: Nontender without deformity or crepitance. No flank tenderness. NEURO: AOx3. Motor functions grossly nonfocal SKIN: No rash or erythema of visible areas Initial Vital Signs Initial Vital Signs: Vital Signs Temperature 98.9 F 10/25/24 17:21 Pulse Rate 66 10/25/24 17:21 Respiratory Rate 16 10/25/24 17:21 Blood Pressure 166/89 H 10/25/24 17:21 Pulse Oximetry 98 10/25/24 17:21 Oxygen Delivery Method Room Air 10/25/24 17:21 Course Orders Ordered: ED Orders 10/25/24 21:26 CBC Auto Diff [Complete Blood Count AUTO DIFF] Stat CMP [Comprehensive Metabolic Panel] Stat CRP [C-Reactive Protein Quant] Stat ESR [Erythrocyte Sedimentation Rate] Stat Procalcitonin Stat 10/26/24 00:30 Complete Blood Count AUTO DIFF DAILY Comprehensive Metabolic Panel DAILY Acetaminophen (Acetaminophen 325 Mg Tablet) 650 mg PO Q6H PRN PRN Reason: Fever/Mild Pain (1-3) Hydrocodone Bitart/Acetaminophen (Hydrocodone/Acet 5/325 Tablet) 1 tab PO Q4H PRN PRN Reason: Pain, Moderate (4-6) Hydromorphone HCl (Hydromorphone 2 Mg Tablet) 4 mg PO Q4HR PRN PRN Reason: Pain, Severe (7-10) Last Admin: 10/26/24 01:48 Dose: 4 mg Documented By: MS Vancomycin HCl 1,000 mg/ (Sodium Chloride) 250 mls @ 167 mls/hr IV Q12H [facility] Cefepime HCl 1 gm/ Sodium (Chloride) 100 mls @ 200 mls/hr IV Q12H [facility] Last Admin: 10/26/24 04:13 Dose: 200 mls/hr Documented By: MS Naloxone HCl (Naloxone 0.4 Mg/Ml Vial) 0.2 mg IV Q2MIN PRN PRN Reason: Opiate Reversal Ondansetron HCl (Ondansetron 4 Mg/2 Ml Inj) 4 mg IV Q8HR PRN PRN Reason: Nausea And Vomiting Vancomycin HCl (Vancomycin Trough) 1 request MISC Q24H [facility] Stop: 10/27/24 12:31 Discontinued Medications Diphenhydramine HCl (Diphenhydramine 50 Mg/Ml Vial) 50 mg IV NOW ONE Stop: 10/26/24 03:57 Last Admin: 10/26/24 04:04 Dose: 50 mg Documented By: MS Hydromorphone HCl (Hydromorphone 0.5 Mg Inj) 0.5 mg IV NOW ONE Stop: 10/25/24 21:03 Last Admin: 10/25/24 21:31 Dose: 0.5 mg Documented By: MR Hydromorphone HCl (Hydromorphone 1 Mg Inj) 1 mg IM NOW ONE Stop: 10/25/24 23:16 Hydromorphone HCl (Hydromorphone 1 Mg Inj) 1 mg IV NOW ONE Stop: 10/25/24 23:16 Last Admin: 10/25/24 23:22 Dose: 1 mg Documented By: MR Ceftriaxone Sodium 1,000 mg/ (Sodium Chloride) 100 mls @ 200 mls/hr IV NOW ONE Stop: 10/25/24 21:42 Last Infusion: 10/25/24 22:43 Dose: Infused Documented By: Admin: 10/25/24 21:50 Dose: 200 mls/hr Documented By: MR Vancomycin HCl 2,000 mg/ (Sodium Chloride) 500 mls @ 250 mls/hr IV NOW ONE Stop: 10/26/24 00:24 Last Admin: 10/26/24 02:42 Dose: Not Given Documented By: MS Sodium Chloride (Normal Saline 0.9%) 1,000 mls @ 100 mls/hr IV CONT [facility] Cefepime HCl 1 gm/ Sodium (Chloride) 100 mls @ 200 mls/hr IV Q12H [facility] Vancomycin HCl 1,500 mg/ (Sodium Chloride) 250 mls @ 250 mls/hr IV Q12H [facility] Vancomycin HCl/Dextrose (Vancomycin) 2,000 mg in 400 mls @ 200 mls/hr IV NOW ONE Stop: 10/26/24 02:31 Last Admin: 10/26/24 00:44 Dose: 200 mls/hr Documented By: MR Lidocaine HCl (Lidocaine 1% 20 Ml) 20 ml INJ INTRA-OP ONE Stop: 10/25/24 21:54 Last Admin: 10/25/24 22:56 Dose: 20 ml Documented By: ES Vital Signs Vital signs: Vital Signs - 8 hr 10/25/24 21:38 10/25/24 22:00 10/25/24 22:30 Pulse Rate 70 69 71 Pulse Oximetry 96 96 96 10/25/24 23:00 10/25/24 23:30 10/26/24 00:00 Pulse Rate 74 102 H 78 Pulse Oximetry 96 95 96 MDM - Extremity Injury (Upper) Lab Data Attestation: I reviewed the patient's lab results. Lab results narrative: White blood cell count 9800, hemoglobin 11.4, platelets adequate. Basic metabolic panel unremarkable. Procalcitonin not elevated. ESR and CRP not elevated. 10/25/24 21:26 10/25/24 21:26 Labs: Lab Results 10/25/24 Range/Units 21:26 WBC 9.8 (4.5-11.0) X10^3/uL RBC 4.46 (4.0-5.2) X10^6/uL Hgb 11.4 L (12.0-16.0) g/dL Hct 34.7 L (36-46) % MCV 77.8 L (80-100) fL MCH 25.6 L (26-34) PG MCHC 32.8 (30-36) % RDW 16.1 H (11.6-14.8) % Plt Count 397 (150-400) X10^3/uL Neut % (Auto) 48.6 L (50-75) % Lymph % (Auto) 41.2 H (25-40) % [place] % (Auto) 8.1 (3-14) % Eos % (Auto) 1.2 L (2-4) % Baso % (Auto) 0.9 (0-2) % Neut # (Auto) 4800 (0880-1492) /uL Lymph # (Auto) 4000 (5976-2846) /uL [place]es # (Auto) 800 (0-900) /uL Eos # (Auto) 100 (0-450) /uL Baso # (Auto) 100 (0-100) /uL ESR 10 (0-20) MM/HR Sodium 137 (137-145) mmol/L Potassium 3.9 (3.4-5.1) mmol/L Chloride 105 (98-107) mmol/L Carbon Dioxide 24 (22-32) mmol/L BUN 10 (7-17) mg/dL Creatinine 0.48 L (0.52-1.04) mg/dL Estimated GFR > 60 (>60) mL/min BUN/Creatinine Ratio 20.8 (6-22) Glucose 102 H (70-100) mg/dL Calcium 9.6 (8.4-10.2) mg/dL Total Bilirubin 0.7 (0.2-1.3) mg/dL AST 33 (14-36) IU/L ALT 41 H (<35) IU/L Alkaline Phosphatase 72 (38-126) U/L C-Reactive Protein < 0.5 (<1.0) mg/dL Total Protein 7.6 (6.3-8.2) g/dL Albumin 4.5 (3.5-5.0) g/dL Globulin 3.1 (1.7-4.1) g/dL Albumin/Globulin Ratio 1.5 (1.0-2.8) Procalcitonin < 0.030 (<0.5) ng/mL MDM Narrative Medical decision making narrative: 43-year-old female with thumb injury caught in car door 3 weeks ago, x-rays walk-in clinic negative for fracture, developed infection and completed 7 day course of Keflex about 3 days ago, last week was seen in the emergency department [facility] and had unroofing removal of the thumb nail, irrigation of the underlying surface and replacement and suturing of the nail in place. Today with swelling unable to bend her thumb, distal tip numbness, concern for tenosynovitis by PCP who saw patient again today in clinic. Send labs, consider CT thumb/hand with IV contrast. Inflammatory markers not elevated lab studies, CRP and ESR not elevated. Case discussed with Orthopedic surgery Dr. Hemphill, hold CT imaging planned for now. He reviewed photos sent by ED phone, believes this was more consistent with local pressure with sutured nail and edema around it, advises removal of the nail, admit for IV antibiotics, he can place Xeroform or some other substance underneath to preserve the nail matrix in the morning. IV vancomycin, IV ceftriaxone. Patient gave verbal consent for nail removal. Digital block. IV Dilaudid. 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 No purulence or subungual hematoma obvious. Patient has better appearing perfusion distal tip of the thumb, likely there was pressure effect as suspected. We will contact hospitalist [id number], case discussed with hospitalist Dr Massey, who accepts patient for admission Critical Care Time Critical Care Time Critical Care Time: Yes Total Critical Care Time: 35 Attestation: The high probability of a clinically significant, sudden or life threatening deterioration of the [musculoskeletal, orthopedic,] system(s) required my full and direct attention, intervention and personal management. The aggregate critical care time was [35] minutes. This time is in addition to time spent performing reported procedures but includes the following: [x] Data Review and interpretation [x] Patient assessment and monitoring of vital signs [x] Documentation [x] Medication orders and management Discharge Plan Departure Patient Disposition: Admitted as Observation Clinical Impression: Cellulitis of right thumb, Fingernail avulsion Admit Date/Time: 10/26/24 00:22 Admit Provider: Jerrell Massey
[2024-10-25] MEDS: HYDROMORPHONE 0.5 MG INJ IV (21:31)
[2024-10-25 21:36] LABS: Add Manual Diff / Slide Review NO; Basophils Absolute Auto 100 /uL (0-100); Basophils Percent Auto 0.9 % (0-2); Eosinophils Absolute Auto 100 /uL (0-450); Eosinophils Percent Auto 1.2 % (2-4); Hematocrit 34.7 % (36-46); Hemoglobin 11.4 g/dL (12.0-16.0); Lymphocytes Absolute Auto 4000 /uL (1100-4500); Lymphocytes Percent Auto 41.2 % (25-40); Mean Corpuscular HGB Conc 32.8 % (30-36); Mean Corpuscular Hemoglobin 25.6 PG (26-34); Mean Corpuscular Volume 77.8 fL (80-100); Monocytes Absolute Auto 800 /uL (0-900); Monocytes Percent Auto 8.1 % (3-14); Neutrophils Absolute Auto 4800 /uL (1500-7000); Neutrophils Percent Auto 48.6 % (50-75); Platelet Count 397 X10^3/uL (150-400); Red Blood Cell Count 4.46 X10^6/uL (4.0-5.2); Red Cell Distribution Width 16.1 % (11.6-14.8); White Blood Cell Count 9.8 X10^3/uL (4.5-11.0)
[2024-10-25 21:38] VITALS: PULSE 70; O2SAT 96
[2024-10-25 21:49] LABS: Alanine Aminotransferase 41 IU/L (<35); Albumin 4.5 g/dL (3.5-5.0); Albumin Globulin Ratio 1.5 (1.0-2.8); Alkaline Phosphatase 72 U/L (38-126); Aspartate Aminotransferase 33 IU/L (14-36); BUN Creatinine Ratio 20.8 (6-22); Bilirubin Total 0.7 mg/dL (0.2-1.3); Blood Urea Nitrogen 10 mg/dL (7-17); Calcium 9.6 mg/dL (8.4-10.2); Carbon Dioxide 24 mmol/L (22-32); Chloride 105 mmol/L (98-107); Estimated Glomerular Filt Rate > 60 mL/min (>60); Globulin 3.1 g/dL (1.7-4.1); Glucose 102 mg/dL (70-100); HEMOLYSIS < 15 (0-50); Potassium 3.9 mmol/L (3.4-5.1); Sodium 137 mmol/L (137-145); Total Protein 7.6 g/dL (6.3-8.2)
[2024-10-25] MEDS: cefTRIAXone 1,000 MG in SODIUM CHLORIDE 0.9% 100 ML 200 MG IV (21:50)
[2024-10-25 21:55] LABS: Erythrocyte Sedimentation Rate 10 MM/HR (0-20)
[2024-10-25 22:00] VITALS: PULSE 69; O2SAT 96
[2024-10-25 22:05] LABS: C-Reactive Protein Quant < 0.5 mg/dL (<1.0)
[2024-10-25 22:07] LABS: Procalcitonin < 0.030 ng/mL (<0.5)
[2024-10-25 22:30] VITALS: PULSE 71; O2SAT 96
[2024-10-25] MEDS: LIDOCAINE 1% 20 ML INJ (22:56)
[2024-10-25 23:00] VITALS: PULSE 74; O2SAT 96
[2024-10-25] MEDS: HYDROMORPHONE 1 MG INJ IV (23:22)
[2024-10-25 23:30] VITALS: PULSE 102; O2SAT 95
[2024-10-26] VITALS (15 sets, daily range): BP systolic 119–170; BP diastolic 56–99; PULSE 66–106; RESP 12–20; TEMP 36.1–36.9; O2SAT 95–99; BMI 30.7
--- NOTE | 2024-10-26 | DI.CT.S_ITS ---
PROCEDURE: CT HAND RIGHT WITH CON INDICATIONS: Right thumb infection TECHNIQUE: Noncontrast 1 mm axial sections acquired through the carpal bones, with coronal and sagittal reformats. COMPARISON: None. FINDINGS: Image quality: Excellent. Bones: No osteomyelitis. No fracture or dislocation. Soft tissues: There is prominence of the soft tissues in the region of the nailbed of the distal phalanx of the thumb consistent with a history of having had the thumb fingernail removed immediately previous to this study. There is no soft tissue gas. There is no abscess. There is cellulitic change in the subcutaneous tissues. IMPRESSION: Subtle changes of cellulitis of the thumb. No other significant findings. Dictated by: Chase Steele M.D. on 10/26/2024 at 9:10 Approved by: Chase Steele M.D. on 10/26/2024 at 9:14
[2024-10-26] MEDS: VANCOMYCIN 2,000 MG/400 ML PIGGYBACK 200 MG IV (00:44)
[2024-10-26] MEDS: HYDROMORPHONE 2 MG TABLET 4 MG PO ×4 (01:48→13:57)
--- NOTE | 2024-10-26 03:01 | PC.WOUNDPHOT ---
right tumb picture
[2024-10-26] MEDS: diphenhydrAMINE 50 MG/ML VIAL IV (04:04)
[2024-10-26] MEDS: CEFEPIME 1 GM in SODIUM CHLORIDE 0.9% 100 ML IV ×2 (04:13→18:37)
[2024-10-26 06:31] LABS: Add Manual Diff / Slide Review NO; Basophils Absolute Auto 100 /uL (0-100); Basophils Percent Auto 0.4 % (0-2); Eosinophils Absolute Auto 0 /uL (0-450); Eosinophils Percent Auto 0.1 % (2-4); Hematocrit 33.7 % (36-46); Hemoglobin 10.9 g/dL (12.0-16.0); Lymphocytes Absolute Auto 2200 /uL (1100-4500); Lymphocytes Percent Auto 12.6 % (25-40); Mean Corpuscular HGB Conc 32.2 % (30-36); Mean Corpuscular Hemoglobin 25.5 PG (26-34); Mean Corpuscular Volume 78.9 fL (80-100); Monocytes Absolute Auto 1600 /uL (0-900); Monocytes Percent Auto 9.3 % (3-14); Neutrophils Absolute Auto 13300 /uL (1500-7000); Neutrophils Percent Auto 77.6 % (50-75); Platelet Count 383 X10^3/uL (150-400); Red Blood Cell Count 4.27 X10^6/uL (4.0-5.2); White Blood Cell Count 17.2 X10^3/uL (4.5-11.0)
[2024-10-26 06:45] LABS: Alanine Aminotransferase 43 IU/L (<35); Albumin 4.5 g/dL (3.5-5.0); Albumin Globulin Ratio 1.6 (1.0-2.8); Alkaline Phosphatase 69 U/L (38-126); Aspartate Aminotransferase 36 IU/L (14-36); BUN Creatinine Ratio 29.2 (6-22); Bilirubin Total 0.9 mg/dL (0.2-1.3); Blood Urea Nitrogen 14 mg/dL (7-17); Calcium 9.4 mg/dL (8.4-10.2); Carbon Dioxide 21 mmol/L (22-32); Chloride 104 mmol/L (98-107); Estimated Glomerular Filt Rate > 60 mL/min (>60); Globulin 2.9 g/dL (1.7-4.1); Glucose 113 mg/dL (70-100); HEMOLYSIS < 15 (0-50); Potassium 4.1 mmol/L (3.4-5.1); Sodium 137 mmol/L (137-145); Total Protein 7.4 g/dL (6.3-8.2)
--- NOTE | 2024-10-26 06:58 | PM.HP.1 ---
History of Present Illness History of Present Illness Chief complaint: Smashed Right Finger in Door, Sent by PCP Narrative: 43-year-old female with past medical history of hypertension, anxiety and polycystic ovarian disease presents with worsening right thumb swelling and pain. Per the patient's report, about 3 weeks ago, the patient accidentally had her right thumb JM in between the car door. The patient did see her PCP initially and was treated with 7-day of Keflex. The patient however continued to have pain and swelling and presented to outside ER. It was there that the patient had her thumb nail removed irrigated and sutured back on. The patient was given additional course of Keflex which she completed about a week ago. Despite these treatment the patient continued to have increased swelling and pain when she presented to her PCP clinic. The patient was referred to our hospital for further management. Otherwise the patient denies any fever, chills, nausea, vomiting, diarrhea or chest pain. The patient does noted that due to swelling and pain she has difficulty flexing her IP joint. In our emergency room, the patient was hemodynamically stable. There is no sign of sepsis. However there was significant swelling and pain noted with some erythema at her right thumb. Our ER physician did discuss the patient's case with orthopedic surgeon Dr. Hemphill account installation specialist. The orthopedic surgeon recommended to admit the patient for IV antibiotic and to remove the nail for irrigation. The patient was given IV ceftriaxone and IV vancomycin. [facility] Medical History Left corneal abrasion Headache Polycystic ovary disease Celiac disease GERD with apnea Hypertension Bipolar disorder Surgical History Status post tubal ligation History of section H/O abdominoplasty H/O oophorectomy H/O gastric sleeve History of cholecystectomy History of appendectomy Social History marital status: household members: significant other and children lives independently: Yes occupational status: employed Smoking Status: Never smoker alcohol intake: never substance use type: marijuana Meds Home Medications and Allergies Home Medications Medication Instructions Recorded Confirmed Type alprazolam 0.5 mg tablet 0.5 mg PO BID PRN Anxiety 05/06/23 10/26/24 History sumatriptan succinate 50 mg tablet 50 mg PO Q2-4H PRN migraine 04/28/24 10/26/24 Rx headache #9 tabs estradiol 0.5 mg tablet 0.5 mg PO DAILY #30 tabs 07/05/24 10/26/24 Rx metoclopramide HCl 5 mg tablet 5 mg PO QAC 07/24/24 10/26/24 History (Reglan) clonazepam 0.5 mg tablet 0.5 mg PO BID 08/24/24 10/26/24 History ondansetron HCl 4 mg tablet 4 mg PO Q8H PRN nausea/vomiting 09/07/24 10/26/24 Rx #30 tabs oxycodone 5 mg tablet 5 mg PO TID PRN pain #14 tabs 10/19/24 10/26/24 Rx lumateperone 42 mg capsule 42 mg PO DAILY 10/26/24 10/26/24 History (Caplyta) Allergies Allergy/AdvReac Type Severity Reaction Status Date / Time vancomycin Allergy Intermediate ITCHING Verified 10/26/24 05:38 gluten Allergy Celiac Verified 10/25/24 16:45 coconut AdvReac Intermediate Hives Verified 10/25/24 16:45 NSAIDS (Non-Steroidal AdvReac Mild Gastrointestinal Verified 10/25/24 16:45 Anti-Inflamma Upset benzonatate AdvReac Unknown Hives Verified 10/25/24 16:45 [From Tessalon Perles] escitalopram [From Lexapro] AdvReac Unknown Hallucinati Verified 10/25/24 16:45 ng Review of Systems Review of Systems ROS: Yes All systems reviewed with the patient and are negative except as otherwise documented Exam Vital Signs (past 8 hours): - 10/25/24 23:00 10/25/24 23:30 10/26/24 00:00 Temperature Pulse Rate 74 102 H 78 Respiratory Rate Blood Pressure Pulse Oximetry 96 95 96 Oxygen Flow Rate 10/26/24 00:30 10/26/24 00:46 10/26/24 00:46 Temperature Pulse Rate 87 75 Respiratory Rate Blood Pressure 135/69 Pulse Oximetry 95 96 Oxygen Flow Rate 10/26/24 01:00 10/26/24 01:20 10/26/24 04:00 Temperature 98.4 F 97.3 F L Pulse Rate 106 H 77 85 Respiratory Rate 20 20 Blood Pressure 128/80 119/68 Pulse Oximetry 97 96 96 Oxygen Flow Rate 0 0 Oxygen Delivery Method Room Air Oxygen Flow Rate 0 Narrative Exam Narrative: Physical Exam: GENERAL: The patient is not in any acute distressed. Awake and alert. HEENT: Nonicteric sclerae, PERRLA, EOMI. Oropharynx clear. Moist mucous membranes. Conjunctivae appear well perfused. HEART: Regular rate and rhythm without murmurs. No lower extremities edema. LUNGS: Clear to auscultation bilaterally. No wheezing, crackles or rhonchi ABDOMEN: Soft, positive bowel sounds, nontender. SKIN: Right thumb nail removed with erthema but no visible drainage. No rash, no excessive bruising, petechiae, or purpura. NEUROLOGIC: AxO x 3. Cranial nerves II-XII intact without motor/sensory deficit. Objective Labs 10/26/24 06:15 10/26/24 06:15 Labs: Laboratory Results - last 24 hr 10/25/24 10/26/24 21:26 06:15 WBC 9.8 17.2 H D RBC 4.46 4.27 Hgb 11.4 L 10.9 L Hct 34.7 L 33.7 L MCV 77.8 L 78.9 L MCH 25.6 L 25.5 L MCHC 32.8 32.2 RDW 16.1 H 16.0 H Plt Count 397 383 Neut % (Auto) 48.6 L 77.6 H D Lymph % (Auto) 41.2 H 12.6 L D [place] % (Auto) 8.1 9.3 Eos % (Auto) 1.2 L 0.1 L Baso % (Auto) 0.9 0.4 Neut # (Auto) 4800 06125 H Lymph # (Auto) 4000 2200 [place] # (Auto) 800 1600 H Eos # (Auto) 100 0 Baso # (Auto) 100 100 ESR 10 Sodium 137 137 Potassium 3.9 4.1 Chloride 105 104 Carbon Dioxide 24 21 L BUN 10 14 Creatinine 0.48 L 0.48 L Estimated GFR > 60 > 60 BUN/Creatinine Ratio 20.8 29.2 H Glucose 102 H 113 H Calcium 9.6 9.4 Total Bilirubin 0.7 0.9 AST 33 36 ALT 41 H 43 H Alkaline Phosphatase 72 69 C-Reactive Protein < 0.5 Total Protein 7.6 7.4 Albumin 4.5 4.5 Globulin 3.1 2.9 Albumin/Globulin Ratio 1.5 1.6 Procalcitonin < 0.030 Assessment & Plan Assessment & Plan narrative: Right thumb infection. Admit the patient to medical inpatient. Of note orthopedic surgeon was consulted and recommended IV antibiotics for now. The patient did have her fingernail of the right thumb removed by ER physician. Continue pain control. IV fluid. Hold off any CT imaging for now per orthopedic surgery. Appreciate further input and management per orthopedic surgeon. Will continue vancomycin and switch CSF for p.m. as he has broader coverage since patient fell Keflex treatment twice as outpatient. Will need to de-escalate antibiotics according to response. Note ESR CRP normal. Hypertension. Monitor blood pressure and resume home medication accordingly. Anxiety. Resume home medication. DVT prophylaxis SCDs CODE STATUS full code. Disposition likely home in 2 days. Time-Based Coding :: [TOTAL MINUTES] spent with patient and on the chart (including review of chart, obtaining history, exam, reviewing outside data, placing orders, documenting exam and treatment plan, and counseling patient) on [DATE].
--- NOTE | 2024-10-26 08:01 | P.HP_ITS ---
History of Present Illness History of Present Illness Chief complaint: Smashed Right Finger in Door, Sent by PCP Narrative: CHIEF COMPLAINT: Right thumb infection. PATIENT SUMMARY: The patient presented with a concern for a right thumb infection. HISTORY OF PRESENT ILLNESS: The patient presented with a concern for a right thumb infection following her thumb being caught in a car door roughly 3 weeks ago which subsequent nail bed repair. The patient initially injured the thumb by closing it in a car door and sought care at Urgent Care, where an X-ray was performed, showing no fracture. The thumb became swollen after she underwent the nailbed repair, prompting the patient's PCP to prescribe antibiotics. The patient followed up as advised, but the thumb's condition did not improve. Despite the antibiotics, the patient reported worsening pain and numbness extending from the thumb to the thenar eminence which began developing last night. Examination revealed tenderness with palpation over the thenar eminence and volar aspect of the thumb, as well as discomfort with both passive thumb extension and flexion. The patient also noted parasthesias at the tip of the thumb. VITALS AND PHYSICAL EXAM: Not available. DIAGNOSTIC STUDIES: - Laboratory tests: CRP was less than 0.5, ESR was 10, and white blood cell count was 9 on admission, now 17. - Imaging: Pending. ASSESSMENT: Based on the description of the patient's initial presentation my initial presumption was that she had developed a nailbed infection at the site of her prior nailbed repair and that removing the thumbnail, debriding the area and initiating hibiclens soaks would allow the infection to improve. However based on her complaints of pain in the thenar eminence and pain with passive extension, I am concerned that she is developing flexor tenosynovitis of her thumb PLAN: Treatment: - Advised patient to soak the thumbnail in soapy water several times throughout the day as had been planned earlier when this was presumed to be a localized nailbed infection. - CT scan of the hand and wrist to be ordered. - Remain NPO. - Likely will proceed with I&D this evening. Will review CT scan results and discuss further with the patient later today. [facility] Medical History Left corneal abrasion Headache Polycystic ovary disease Celiac disease GERD with apnea Hypertension Bipolar disorder Surgical History Status post tubal ligation History of section H/O abdominoplasty H/O oophorectomy H/O gastric sleeve History of cholecystectomy History of appendectomy Social History marital status: household members: significant other and children lives independently: Yes occupational status: employed Smoking Status: Never smoker alcohol intake: never substance use type: marijuana Meds Home Medications and Allergies Home Medications Medication Instructions Recorded Confirmed Type alprazolam 0.5 mg tablet 0.5 mg PO BID PRN Anxiety 05/06/23 10/26/24 History sumatriptan succinate 50 mg tablet 50 mg PO Q2-4H PRN migraine 04/28/24 10/26/24 Rx headache #9 tabs estradiol 0.5 mg tablet 0.5 mg PO DAILY #30 tabs 07/05/24 10/26/24 Rx metoclopramide HCl 5 mg tablet 5 mg PO QAC 07/24/24 10/26/24 History (Reglan) clonazepam 0.5 mg tablet 0.5 mg PO BID 08/24/24 10/26/24 History ondansetron HCl 4 mg tablet 4 mg PO Q8H PRN nausea/vomiting 09/07/24 10/26/24 Rx #30 tabs oxycodone 5 mg tablet 5 mg PO TID PRN pain #14 tabs 10/19/24 10/26/24 Rx lumateperone 42 mg capsule 42 mg PO DAILY 10/26/24 10/26/24 History (Caplyta) Allergies Allergy/AdvReac Type Severity Reaction Status Date / Time vancomycin Allergy Intermediate ITCHING Verified 10/26/24 05:38 gluten Allergy Celiac Verified 10/25/24 16:45 coconut AdvReac Intermediate Hives Verified 10/25/24 16:45 NSAIDS (Non-Steroidal AdvReac Mild Gastrointestinal Verified 10/25/24 16:45 Anti-Inflamma Upset benzonatate AdvReac Unknown Hives Verified 10/25/24 16:45 [From Tessalon Perles] escitalopram [From Lexapro] AdvReac Unknown Hallucinati Verified 10/25/24 16:45 ng Exam Vital Signs (past 8 hours): - 10/26/24 00:30 10/26/24 00:46 10/26/24 00:46 Temperature Pulse Rate 87 75 Respiratory Rate Blood Pressure 135/69 Pulse Oximetry 95 96 Oxygen Flow Rate 10/26/24 01:00 10/26/24 01:20 10/26/24 04:00 Temperature 98.4 F 97.3 F L Pulse Rate 106 H 77 85 Respiratory Rate 20 20 Blood Pressure 128/80 119/68 Pulse Oximetry 97 96 96 Oxygen Flow Rate 0 0 Oxygen Delivery Method Room Air Oxygen Flow Rate 0 Objective Labs 10/26/24 06:15 10/26/24 06:15 Labs: Laboratory Results - last 24 hr 10/25/24 10/26/24 21:26 06:15 WBC 9.8 17.2 H D RBC 4.46 4.27 Hgb 11.4 L 10.9 L Hct 34.7 L 33.7 L MCV 77.8 L 78.9 L MCH 25.6 L 25.5 L MCHC 32.8 32.2 RDW 16.1 H 16.0 H Plt Count 397 383 Neut % (Auto) 48.6 L 77.6 H D Lymph % (Auto) 41.2 H 12.6 L D [place] % (Auto) 8.1 9.3 Eos % (Auto) 1.2 L 0.1 L Baso % (Auto) 0.9 0.4 Neut # (Auto) 4800 80556 H Lymph # (Auto) 4000 2200 [place] # (Auto) 800 1600 H Eos # (Auto) 100 0 Baso # (Auto) 100 100 ESR 10 Sodium 137 137 Potassium 3.9 4.1 Chloride 105 104 Carbon Dioxide 24 21 L BUN 10 14 Creatinine 0.48 L 0.48 L Estimated GFR > 60 > 60 BUN/Creatinine Ratio 20.8 29.2 H Glucose 102 H 113 H Calcium 9.6 9.4 Total Bilirubin 0.7 0.9 AST 33 36 ALT 41 H 43 H Alkaline Phosphatase 72 69 C-Reactive Protein < 0.5 Total Protein 7.6 7.4 Albumin 4.5 4.5 Globulin 3.1 2.9 Albumin/Globulin Ratio 1.5 1.6 Procalcitonin < 0.030 Assessment & Plan Time-Based Coding :: [TOTAL MINUTES] spent with patient and on the chart (including review of chart, obtaining history, exam, reviewing outside data, placing orders, documenting exam and treatment plan, and counseling patient) on [DATE].
--- NOTE | 2024-10-26 08:20 | PM.HP.1 ---
History of Present Illness History of Present Illness Chief complaint: Smashed Right Finger in Door, Sent by PCP Narrative: From night doctor: 43-year-old female with past medical history of hypertension, anxiety and polycystic ovarian disease presents with worsening right thumb swelling and pain. Per the patient's report, about 3 weeks ago, the patient accidentally had her right thumb in between the car door. The patient did see her PCP initially and was treated with 7-day of Keflex. The patient however continued to have pain and swelling and presented to outside ER. It was there that the patient had her thumb nail removed irrigated and sutured back on. The patient was given additional course of Keflex which she completed about a week ago. Despite these treatment the patient continued to have increased swelling and pain when she presented to her PCP clinic. The patient was referred to our hospital for further management. Otherwise the patient denies any fever, chills, nausea, vomiting, diarrhea or chest pain. The patient does noted that due to swelling and pain she has difficulty flexing her IP joint. In our emergency room, the patient was hemodynamically stable. There is no sign of sepsis. However there was significant swelling and pain noted with some erythema at her right thumb. Our ER physician did discuss the patient's case with orthopedic surgeon Dr. Hemphill electronic scale assembler and tester. The orthopedic surgeon recommended to admit the patient for IV antibiotic and to remove the nail for irrigation. The patient was given IV ceftriaxone and IV vancomycin. S: She is having a controlled pain today. No fevers. Dr. Hemphill of Orthopedics felt that she needs a washout of the right thumb and hypothenar region. This will happen later today. [facility] Medical History Left corneal abrasion Headache Polycystic ovary disease Celiac disease GERD with apnea Hypertension Bipolar disorder Surgical History Status post tubal ligation History of section H/O abdominoplasty H/O oophorectomy H/O gastric sleeve History of cholecystectomy History of appendectomy Social History marital status: household members: significant other and children lives independently: Yes occupational status: employed Smoking Status: Never smoker alcohol intake: never substance use type: marijuana Meds Home Medications and Allergies Home Medications Medication Instructions Recorded Confirmed Type alprazolam 0.5 mg tablet 0.5 mg PO BID PRN Anxiety 05/06/23 10/26/24 History sumatriptan succinate 50 mg tablet 50 mg PO Q2-4H PRN migraine 04/28/24 10/26/24 Rx headache #9 tabs estradiol 0.5 mg tablet 0.5 mg PO DAILY #30 tabs 07/05/24 10/26/24 Rx metoclopramide HCl 5 mg tablet 5 mg PO QAC 07/24/24 10/26/24 History (Reglan) clonazepam 0.5 mg tablet 0.5 mg PO BID 08/24/24 10/26/24 History ondansetron HCl 4 mg tablet 4 mg PO Q8H PRN nausea/vomiting 09/07/24 10/26/24 Rx #30 tabs oxycodone 5 mg tablet 5 mg PO TID PRN pain #14 tabs 10/19/24 10/26/24 Rx lumateperone 42 mg capsule 42 mg PO DAILY 10/26/24 10/26/24 History (Caplyta) Allergies Allergy/AdvReac Type Severity Reaction Status Date / Time vancomycin Allergy Intermediate ITCHING Verified 10/26/24 05:38 gluten Allergy Celiac Verified 10/25/24 16:45 coconut AdvReac Intermediate Hives Verified 10/25/24 16:45 NSAIDS (Non-Steroidal AdvReac Mild Gastrointestinal Verified 10/25/24 16:45 Anti-Inflamma Upset benzonatate AdvReac Unknown Hives Verified 10/25/24 16:45 [From Tessalon Perles] escitalopram [From Lexapro] AdvReac Unknown Hallucinati Verified 10/25/24 16:45 ng Review of Systems Review of Systems Narrative: All else reviewed and otherwise unremarkable except as noted in the history and physical. Exam Vital Signs (past 8 hours): - 10/26/24 00:30 10/26/24 00:46 10/26/24 00:46 Temperature Pulse Rate 87 75 Respiratory Rate Blood Pressure 135/69 Pulse Oximetry 95 96 Oxygen Flow Rate 10/26/24 01:00 10/26/24 01:20 10/26/24 04:00 Temperature 98.4 F 97.3 F L Pulse Rate 106 H 77 85 Respiratory Rate 20 20 Blood Pressure 128/80 119/68 Pulse Oximetry 97 96 96 Oxygen Flow Rate 0 0 Oxygen Delivery Method Room Air Oxygen Flow Rate 0 Narrative Exam Narrative: NAD, alert and oriented, fluent speech, anxious. Normocephalic skull, EOMI, anicteric sclera, symmetric pupils. Oropharynx unremarkable, no droop. Neck supple, midline trachea, no adenopathy. Lungs clear, normal rate and effort. Heart regular, no murmur gallop or rub. Abdomen is soft, non distended and non tender. Extremities are free of edema. Skin is free of rash or lesions. Joints are not swollen or deformed. Judgment appears to be normal. Right thumb, no nail. Some tenderness and mild swelling of the proximal thumb and hypothenar eminence. Objective Labs 10/26/24 06:15 10/26/24 06:15 Labs: Laboratory Results - last 24 hr 10/25/24 10/26/24 21:26 06:15 WBC 9.8 17.2 H D RBC 4.46 4.27 Hgb 11.4 L 10.9 L Hct 34.7 L 33.7 L MCV 77.8 L 78.9 L MCH 25.6 L 25.5 L MCHC 32.8 32.2 RDW 16.1 H 16.0 H Plt Count 397 383 Neut % (Auto) 48.6 L 77.6 H D Lymph % (Auto) 41.2 H 12.6 L D [place] % (Auto) 8.1 9.3 Eos % (Auto) 1.2 L 0.1 L Baso % (Auto) 0.9 0.4 Neut # (Auto) 4800 39362 H Lymph # (Auto) 4000 2200 [place] # (Auto) 800 1600 H Eos # (Auto) 100 0 Baso # (Auto) 100 100 ESR 10 Sodium 137 137 Potassium 3.9 4.1 Chloride 105 104 Carbon Dioxide 24 21 L BUN 10 14 Creatinine 0.48 L 0.48 L Estimated GFR > 60 > 60 BUN/Creatinine Ratio 20.8 29.2 H Glucose 102 H 113 H Calcium 9.6 9.4 Total Bilirubin 0.7 0.9 AST 33 36 ALT 41 H 43 H Alkaline Phosphatase 72 69 C-Reactive Protein < 0.5 Total Protein 7.6 7.4 Albumin 4.5 4.5 Globulin 3.1 2.9 Albumin/Globulin Ratio 1.5 1.6 Procalcitonin < 0.030 Assessment & Plan Assessment & Plan narrative: 1. Right thumb infection. Present on admission and active. Admit the patient to medical inpatient. Of note orthopedic surgeon was consulted and recommended IV antibiotics for now. The patient did have her fingernail of the right thumb removed by ER physician. Continue pain control. IV fluid. Hold off any CT imaging for now per orthopedic surgery. Appreciate further input and management per orthopedic surgeon. Will continue vancomycin and switch CSF for p.m. as he has broader coverage since patient fell Keflex treatment twice as outpatient. Will need to de-escalate antibiotics according to response. Note ESR CRP normal. 2. Hypertension. Present on admission and stable. Monitor blood pressure and resume home medication accordingly. 3. Anxiety. Active. Resume home medication. 4. Obesity class 1, BMI 30.7. Present on admission stable. PLAN: -incision and drainage and washout per Orthopedics later today. -continue antibiotics. DVT prophylaxis SCDs CODE STATUS full code. Disposition likely home in 2 days. Time-Based Coding :: 35 min spent with patient and on the chart (including review of chart, obtaining history, exam, reviewing outside data, placing orders, documenting exam and treatment plan, and counseling patient) on 10/26. Quality MIPS - Admit I confirm the patient?s Advance Care Plan is present, Code status is documented, Surrogate decision maker is in patient?s record [If Yes, STOP here]: Yes MIPS - Meds 'Current medications' to include all prescriptions, [id number] products, herbals, cannabis/cannabidiol products, and vitamin/mineral/dietary (nutritional) supplements. I have utilized all available resources to obtain, update, or review the patient?s current medications. [If Yes, STOP here]: Yes
[2024-10-26] MEDS: clonazePAM 0.5 MG TABLET PO (12:33)
--- NOTE | 2024-10-26 13:48 | CM.DANOTE ---
Initial DCP Assessment Note Reviewed EMR and team rounds for patient's medical status and updates. Met with patient at bedside to introduce self and role. Patient was found to be alert and oriented. Patient is independent at baseline and lives in her own home with her spouse and daughter. Plan is to discharge with a ride from her spouse when appropriate. Payor: Self Pay PCP: Sarah Manning Patient is a 43 year old female who came to ER on 10/25/24 for right thumb injury. Patient slammed thumb in car door around [address] ER CT scan was done and cellulitis seen in thumb. Thumbnail was removed, IV antibiotics started. Plan for today is for patient to have incision and drain procedure on thumb with irrigation and more IV antibiotics after. Patient is currently NPO. Patient is expecting that she may need to stay in the hospital tonight to make sure pain is controlled and to receive IV antibiotic after surgery. No discharge needs expected at this time. DCP will continue to monitor for discharge needs. Discharge Planning/Care Management CM Discharge Assessment Start: 10/26/24 13:35 Freq: Status: Active Protocol: Document 10/26/24 13:36 MERT (Rec: 10/26/24 13:47 [facility] [id number]) Discharge Planning Assessment Assigned Carbon Paper Machine Operator Aram Álvarez RN DPOA/Assigned Designee Name None Advance Directives? No Advance Directives on File No History Provided By Patient,Significant Other, Medical Record Expected Length of Stay 2 Has Patient been admitted in last 30 No days? Prior Living Arrangements House Household Members significant other,children Comment Patient lives with spouse and daughter. Type of transporation used prior to Drives own vehicle admit Comment Patient transports self at baseline and can ask spouse or daughter to help with transportation if needed. Independent with ADL's Yes Is patient alert and oriented? Yes Comment None needed. Caregiver for Another No Comment None DME Already Rented / Owned Bath Bench Comment Patient has a bath chair to help her relax in shower if she has a migraine. Comment None Barriers to Discharge No Comment Home w/ S.O. expected Discharge Plan Home Transportation Arrangement Spouse can transport home at d /c Referrals Initiated None needed Additional Comment [facility] application given and completed Whiteboard Updated in Patient Room with Yes name and ext. # of Carbon Paper Machine Operator Review Status In Process Please Provide Date Initial DC 10/26/24 Assessment Was Performed
[2024-10-26] MEDS: LACTATED RINGERS 1,000 ML 42 ML IV (14:16)
[2024-10-26] MEDS: SCOPOLAMINE 1 PATCH TOP (14:23)
[2024-10-26] MEDS: CEFAZOLIN 2 GM/100 ML PREMIX 100 ML IV (16:06)
--- NOTE | 2024-10-26 16:23 | SUR.OPER ---
Supine on padded OR bed, head on pillow, arms secured on padded arm boards at <90 degrees abduction, legs uncrossed, safety belt at thigh, tape over blanket over lower legs.
[2024-10-26] MEDS: BUPIVACAINE 0.25% (PF) VIAL 30 ML INJ (16:45)
--- NOTE | 2024-10-26 17:02 | PM.OP.1 ---
Operative Date/Time/Diagnoses Date of procedure: 10/26/24 Pre-op diagnosis: Pyogenic flexor tenosynovitis of the right thumb FPL tendon Procedure & Clinicians Procedure: Incision and debridement of right thumb Same procedure as scheduled: Yes Surgeon: Romel Hemphill Click Yes if Unassisted: Yes Anesthesia Type: General and Local Operative Notes Estimated Blood Loss (mL): 10 Procedure in detail: This 43-year-old female patient sustained a nail bed laceration after having her thumb caught in a car door when it was closed proximally 3 weeks ago. Prior to presentation here she had undergone a debridement with replacement of her nail which was sutured in place. She went onto develop infectious symptoms and was prescribed antibiotics. Her symptoms did not improve with the antibiotics and she presented to the emergency department here with symptoms consistent with flexor tenosynovitis. She held the thumb in a flexed posture, had swelling throughout the thumb, had pain with any passive extension of the thumb, and had pain with palpation in the thenar eminence. She was admitted to the hospital on the medical service for IV antibiotics and I recommended debridement of her likely flexor tenosynovitis. I discussed risks and benefits of the surgery with her at length, with the main risk being discussed the recurrence of infection. I also discussed damage to surrounding structures and other risks inherent to surgery. She understood these risks and wished to proceed. Informed consent was signed in the operative site was marked. All questions were answered. She was brought back to the operating room and anesthesia was induced. She was prepped and draped in the usual sterile fashion. A tourniquet was placed. A time-out procedure was performed. I planned incisions for possible Misti incisions extending through the whole thumb. I initially opened up the thenar eminence. I did not note any purulent fluid expressing from the wound when I dissected down. I identified the FPL tendon. I then went to the distal phalanx of the thumb and incised there. I dissected down and identified the FPL tendon distally. I ensured that I had identified the appropriate tendon on both sides by pulling on it on both sides and watching it shuttled back and forth. I also observed the action when it was pulled on both sides which caused thumb flexion. Obtained tissue swabs from both sites. I placed an Angiocath in the thumb tendon and pushed it distally from proximal to distal. I infiltrated a total of 60 mL of normal saline through the Angiocath in 20 mL increments. I then turned my attention to the old nail bed laceration. I was able to identify the laceration which is underneath what appeared to be remnants of her nail. I removed the nail remnants, debrided the nail bed with a curette, and placed a single chromic stitch in the nail bed. Irrigated all of the surgical sites with dilute Betadine followed by a normal saline rinse. Copiously irrigated the entire surgical site with normal saline. I then loosely closed with 3-0 nylon simple interrupted sutures. Post-operative Plan for aftercare: -Patient will remain in the hospital overnight on the medical service. - She is receiving empiric IV antibiotics and we can plan to discharge her likely tomorrow with empiric oral antibiotics that provide MRSA coverage with outpatient follow up should her cultures result with a bacteria that necessitates an antibiotic switch - We will initiate warm soapy soaks which involves soaking the thumb in a dilute Hibiclens for 20 minutes 3 times per day - A dressing should be maintained but we will need to be removed when she is soaking the thumb - Follow up with me in clinic in 1 week
[2024-10-26] MEDS: ACETAMINOPHEN 325 MG TABLET 650 MG PO (17:08)
[2024-10-26] MEDS: fentaNYL 100 MCG/2 ML INJ 50 MCG IV (17:18)
[2024-10-26] MEDS: HYDROCODONE/ACET 5/325 TABLET 1 TAB PO ×2 (17:24→22:07)
[2024-10-26] MEDS: OXYCODONE IR 10 MG TABLET PO (18:22)
[2024-10-26] MEDS: ALPRAZolam 0.25 MG TABLET 0.5 MG PO (21:06)
[2024-10-27] MEDS: OXYCODONE IR 10 MG TABLET PO ×2 (00:42→09:01)
--- NOTE | 2024-10-27 01:26 | PC.NURSE ---
Patient requested to change her dressing, soaked with diluted Hibiclens & warm water. Dressing changed no bleeding noted, will monitor & continue plan of care.
[2024-10-27 02:00] VITALS: BP 91/57; PULSE 55; RESP 18; TEMP 36.3; O2SAT 97
[2024-10-27] MEDS: MORPHINE 2 MG/ML INJ IV ×2 (03:19→10:03)
[2024-10-27] MEDS: SODIUM CHLORIDE 0.9% FLUSH 10 ML IV ×3 (04:05→20:13)
[2024-10-27] MEDS: CEFEPIME 1 GM in SODIUM CHLORIDE 0.9% 100 ML IV ×2 (04:10→16:09)
[2024-10-27 06:00] VITALS: BP 92/46; PULSE 54; RESP 18; TEMP 36.2; O2SAT 100
[2024-10-27 08:00] VITALS: BP 129/69; PULSE 85; RESP 19; TEMP 36.5; O2SAT 100
[2024-10-27] MEDS: METOCLOPRAMIDE HCL 5 MG TABLET PO ×3 (09:00→17:14)
[2024-10-27] MEDS: estradioL 1 MG TABLET 0.5 MG PO (09:00)
[2024-10-27] MEDS: clonazePAM 0.5 MG TABLET PO (09:01)
[2024-10-27 11:18] LABS: Add Manual Diff / Slide Review NO; Basophils Absolute Auto 100 /uL (0-100); Basophils Percent Auto 1.1 % (0-2); Eosinophils Absolute Auto 100 /uL (0-450); Hematocrit 33.6 % (36-46); Hemoglobin 10.8 g/dL (12.0-16.0); Lymphocytes Absolute Auto 4100 /uL (1100-4500); Lymphocytes Percent Auto 35.8 % (25-40); Mean Corpuscular HGB Conc 32.3 % (30-36); Mean Corpuscular Hemoglobin 25.6 PG (26-34); Mean Corpuscular Volume 79.3 fL (80-100); Monocytes Absolute Auto 1500 /uL (0-900); Monocytes Percent Auto 12.7 % (3-14); Neutrophils Absolute Auto 5700 /uL (1500-7000); Neutrophils Percent Auto 49.4 % (50-75); Platelet Count 394 X10^3/uL (150-400); Red Blood Cell Count 4.23 X10^6/uL (4.0-5.2); Red Cell Distribution Width 15.7 % (11.6-14.8); White Blood Cell Count 11.5 X10^3/uL (4.5-11.0)
[2024-10-27] MEDS: HYDROMORPHONE 2 MG TABLET 4 MG PO ×3 (14:38→22:58)
[2024-10-27 18:00] VITALS: BP 120/57; PULSE 77; RESP 16; TEMP 36.3; O2SAT 99
--- NOTE | 2024-10-27 18:34 | PM.PN.1 ---
Subjective Subjective Interval history: 43 F s/p R hand I&D with orthopedics yesterday, still continued pain and drainage today. No fever, but WBC still elevated at 11.5, cultures with no organisms at this time on gram stain but still pending. Exam Vital Signs (past 8 hours): Oxygen Delivery Method Room Air Oxygen Flow Rate 0 Narrative Exam Narrative: NAD, alert and oriented, fluent speech R thumb is dressed, mild sanguinous drainage but reportedly changed multiple times today. Still some reduced ROM but slightly improved per patient. Ext: no edema Objective Labs 10/27/24 10:41 10/26/24 06:15 Labs: Laboratory Results - last 24 hr 10/27/24 10:41 WBC 11.5 H RBC 4.23 Hgb 10.8 L Hct 33.6 L MCV 79.3 L MCH 25.6 L MCHC 32.3 RDW 15.7 H Plt Count 394 Neut % (Auto) 49.4 L D Lymph % (Auto) 35.8 D [place] % (Auto) 12.7 Eos % (Auto) 1.0 L Baso % (Auto) 1.1 Neut # (Auto) 5700 Lymph # (Auto) 4100 [place] # (Auto) 1500 H Eos # (Auto) 100 Baso # (Auto) 100 PFSH Medical History Left corneal abrasion Headache Polycystic ovary disease Celiac disease GERD with apnea Hypertension Bipolar disorder Surgical History Status post tubal ligation History of section H/O abdominoplasty H/O oophorectomy H/O gastric sleeve History of cholecystectomy History of appendectomy Social History marital status: household members: significant other and children lives independently: Yes occupational status: employed Smoking Status: Never smoker alcohol intake: never substance use type: marijuana Assessment & Plan Assessment & Plan narrative: 1. Right thumb flexor tenosynovitis, bacterial - follow up OR cultures, continue current cefepime and vancomycin - continue to work on pain control, try switch to PO dilaudid 2-4 mg PRN - if WBC continuing to improve, improved pain control, and ROM in her hand improving can discharge home tomorrow, 2. Hypertension. Present on admission and stable. Monitor blood pressure and resume home medication accordingly. 3. Anxiety. Active. Resume home medication. 4. Obesity class 1, BMI 30.7. Present on admission stable. DVT prophylaxis SCDs CODE STATUS full code. Disposition likely home tomorrow, changed to inpatient. Time-Based Coding :: [TOTAL MINUTES] spent with patient and on the chart (including review of chart, obtaining history, exam, reviewing outside data, placing orders, documenting exam and treatment plan, and counseling patient) on [DATE].
[2024-10-27 20:00] VITALS: BP 92/45; PULSE 75; RESP 18; TEMP 36.5; O2SAT 98
[2024-10-27] MEDS: ACETAMINOPHEN 325 MG TABLET 650 MG PO (20:16)
[2024-10-28 00:30] VITALS: BP 116/75; PULSE 80; RESP 18; TEMP 36.2; O2SAT 99
--- NOTE | 2024-10-28 00:49 | PC.NURSE ---
Patient is alert and oriented. Breath sounds CTA with RA sat 98%. HRR. BP low at 92/45 and seems very drowsy so hs dose of Clonazepam was held and last BP was better at 116/75. Denied nausea. BT hyperactive and reports she had several diarrhea stools on previous shift; educated on potential for c-diff with use of antibiotics. Is voiding without dysuria, frequency or urgency. Is independent with mobility so is refusing use of SCD's. Right hand soaked in Hibiclens warm water for 20 minutes and redressed. Sutures intact and no redness or drainage noted but thumb is swollen and patient reports some numbness at tip of thumb and pain at base of thumb radiating into lower hand; is receiving Dilaudid and Tylenol with good pain relief. Fall risk score is low.
[2024-10-28 04:00] VITALS: BP 107/70; PULSE 74; RESP 18; TEMP 36.2; O2SAT 99
[2024-10-28] MEDS: CEFEPIME 1 GM in SODIUM CHLORIDE 0.9% 100 ML IV (04:41)
[2024-10-28] MEDS: SODIUM CHLORIDE 0.9% FLUSH 10 ML IV ×2 (04:41→08:50)
[2024-10-28] MEDS: HYDROMORPHONE 2 MG TABLET 4 MG PO ×3 (04:50→12:39)
--- NOTE | 2024-10-28 08:12 | PM.PNPO.1 ---
Subjective Subjective Interval history: Patient's pain is controlled with oral medication. ?Pain is localized to surgical site. ?Patient declines any new numbness or tingling at the surgical extremity. ?Patient denies any shortness of breath, dizziness, light-headedness, nausea, vomiting, fever or chills. States the swelling has gotten down significantly since preoperative surgery. She is noticed increased range of motion at her right thumb IP joint. She is ready to go home. Exam Vital Signs (past 8 hours): - 10/28/24 00:30 10/28/24 04:00 Temperature 97.1 F L 97.2 F L Pulse Rate 80 74 Respiratory Rate 18 18 Blood Pressure 116/75 107/70 Pulse Oximetry 99 99 Oxygen Flow Rate 0 0 Oxygen Delivery Method Room Air Oxygen Flow Rate 0 Narrative Exam Narrative: Dressings clearing and dry. Removing dressing reveals the surgical site is healing well with sutures firmly in place no signs of any erythema edema discharge or streaking. Has limited range of motion at the IP joint of the right thumb. Sensation intact to light touch. Objective Labs 10/27/24 10:41 10/26/24 06:15 Labs: Laboratory Results - last 24 hr 10/27/24 10:41 WBC 11.5 H RBC 4.23 Hgb 10.8 L Hct 33.6 L MCV 79.3 L MCH 25.6 L MCHC 32.3 RDW 15.7 H Plt Count 394 Neut % (Auto) 49.4 L D Lymph % (Auto) 35.8 D Simpson % (Auto) 12.7 Eos % (Auto) 1.0 L Baso % (Auto) 1.1 Neut # (Auto) 5700 Lymph # (Auto) 4100 Simpson # (Auto) 1500 H Eos # (Auto) 100 Baso # (Auto) 100 PFSH Medical History Left corneal abrasion Headache Polycystic ovary disease Celiac disease GERD with apnea Hypertension Bipolar disorder Surgical History Status post tubal ligation History of section H/O abdominoplasty H/O oophorectomy H/O gastric sleeve History of cholecystectomy History of appendectomy Social History marital status: household members: significant other and children lives independently: Yes occupational status: employed Smoking Status: Never smoker alcohol intake: never substance use type: marijuana Assessment & Plan Post-op Postoperative Procedures: Procedures Operation Date: 10/26/24 15:15 Actual Procedure Side Surgeon p Incision and Drainage Thumb Right Romle Hemphill MD Postoperative day: 2 Postoperative status: doing well Postoperative status narrative: No growth yet on cultures. Postoperative plan: routine post-op care and discharge Postoperative plan narrative: - Bulky dressing removed to observe surgical site. Light dressing reapplied as the patient will have repeat soaking by nursing staff after breakfast. - She is receiving empiric IV antibiotics and we can plan to discharge today if medically stable with empiric oral antibiotics that provide MRSA coverage with outpatient follow up should her cultures result with a bacteria that necessitates an antibiotic switch - Continue warm soapy soaks which involves soaking the thumb in a dilute Hibiclens for 20 minutes 3 times per day - A dressing should be maintained but we will need to be removed when she is soaking the thumb - Follow up with Dr. Hemphill in clinic in 1 week - Discharge status, antibiotics and pain medication per hospitalist. Time Spent With Patient Time with patient: 15-24 minutes Quality VTE Deep Vein Thrombosis/Pulmonary Embolism Present on Admission: No
[2024-10-28] MEDS: METOCLOPRAMIDE HCL 5 MG TABLET PO (08:45)
[2024-10-28] MEDS: estradioL 1 MG TABLET 0.5 MG PO (08:46)
[2024-10-28] MEDS: clonazePAM 0.5 MG TABLET PO (08:49)
[2024-10-28 10:00] VITALS: BP 117/71; PULSE 75; TEMP 36.4; O2SAT 98
--- NOTE | 2024-10-28 11:04 | PM.DS.1 ---
History of Present Illness History of Present Illness Date Patient Seen: 10/28/24 Chief complaint: Smashed Right Finger in Door, Sent by PCP Narrative: Per admitting provider: From night doctor: 43-year-old female with past medical history of hypertension, anxiety and polycystic ovarian disease presents with worsening right thumb swelling and pain. Per the patient's report, about 3 weeks ago, the patient accidentally had her right thumb in between the car door. The patient did see her PCP initially and was treated with 7-day of Keflex. The patient however continued to have pain and swelling and presented to outside ER. It was there that the patient had her thumb nail removed irrigated and sutured back on. The patient was given additional course of Keflex which she completed about a week ago. Despite these treatment the patient continued to have increased swelling and pain when she presented to her PCP clinic. The patient was referred to our hospital for further management. Otherwise the patient denies any fever, chills, nausea, vomiting, diarrhea or chest pain. The patient does noted that due to swelling and pain she has difficulty flexing her IP joint. In our emergency room, the patient was hemodynamically stable. There is no sign of sepsis. However there was significant swelling and pain noted with some erythema at her right thumb. Our ER physician did discuss the patient's case with orthopedic surgeon Dr. Hemphill ultrasonic tester. The orthopedic surgeon recommended to admit the patient for IV antibiotic and to remove the nail for irrigation. The patient was given IV ceftriaxone and IV vancomycin. S: She is having a controlled pain today. No fevers. Dr. Hemphill of Orthopedics felt that she needs a washout of the right thumb and hypothenar region. This will happen later today. Discharge Providers Provider Date of admission: 10/27/24 12:51 Discharge Date: 10/28/24 Primary care physician: Sarah Dunbar MD Consults: 10/27/24 08:56 Consult to Orthopedic Surgery Routine Comment: Consulting Provider: Romel Hemphill Reason for consultation: Hand infection Has provider been notified: Yes Discharge provider: Wiliam Gutierrez DO Summary Hospital Course Discharge Diagnosis: 1. Right thumb flexor tenosynovitis, bacterial 2. Hypertension. Present on admission and stable. 3. Anxiety. Active. 4. Obesity class 1, BMI 30.7. Present on admission stable. Hospital Course: 43 year old female with PMH of HTN, migraine, anxiety who was admitted with a R thumb flexor tenosynovitis. She ultimately was taken to the OR with orthopedics for I&D. After surgery and continued antibiotics with cefepime and vancomycin he swelling and pain slowly improved. A couple of days after surgery, her leukocytosis resolved and pain was controlled with only oral medications with improvement in her ROM. She was discharged on cephalexin and doxycycline as cultures were negative at the time of discharge with no visible organisms. She was given another 5 days on discharge. No other changes to her home medications were recommended. She will follow up with orthopedic clinic after discharge. Was given discharge instructions for soaking of her thumb and dressing changes. Time Spent with Patient Time spent: Less than 30 minutes Exam Vital Signs (past 8 hours): - 10/28/24 04:00 10/28/24 10:00 10/28/24 10:42 Temperature 97.2 F L 97.6 F Pulse Rate 74 75 Respiratory Rate 18 Blood Pressure 107/70 117/71 Pulse Oximetry 99 98 Oxygen Delivery Method Room Air Oxygen Flow Rate 0 Oxygen Delivery Method Room Air Oxygen Flow Rate 0 Narrative Exam Narrative: NAD, alert and oriented, fluent speech R thumb is dressed, mild sanguinous drainage but reportedly changed multiple times today. Still some reduced ROM but slightly improved per patient. Ext: no edema Objective Labs 10/27/24 10:41 10/26/24 06:15 Labs: Laboratory Results - last 24 hr 10/27/24 10:41 WBC 11.5 H RBC 4.23 Hgb 10.8 L Hct 33.6 L MCV 79.3 L MCH 25.6 L MCHC 32.3 RDW 15.7 H Plt Count 394 Neut % (Auto) 49.4 L D Lymph % (Auto) 35.8 D Barbour % (Auto) 12.7 Eos % (Auto) 1.0 L Baso % (Auto) 1.1 Neut # (Auto) 5700 Lymph # (Auto) 4100 Barbour # (Auto) 1500 H Eos # (Auto) 100 Baso # (Auto) 100 PFSH Medical History Left corneal abrasion Headache Polycystic ovary disease Celiac disease GERD with apnea Hypertension Bipolar disorder Surgical History Status post tubal ligation History of section H/O abdominoplasty H/O oophorectomy H/O gastric sleeve History of cholecystectomy History of appendectomy Social History marital status: household members: significant other and children lives independently: Yes occupational status: employed Smoking Status: Never smoker alcohol intake: never substance use type: marijuana Discharge Plan Discharge Plan Patient Disposition: Home Provider Discharge Comment: You were admitted to the hospital with an infection in your thumb. You had surgery with orthopedics for drainage. Cultures are not growing anything yet. Complete antibiotics at home. Follow up with orthopedics clinic in 1 week or so. Per orthopedic surgeon: - Continue warm soapy soaks which involves soaking the thumb in a dilute Hibiclens for 20 minutes 3 times per day - A dressing should be maintained but we will need to be removed when she is soaking the thumb - Follow up with Dr. Hemphill in clinic in 1 week Discharge orders & Medications Prescriptions: New cephalexin 500 mg tablet 500 mg PO QID 5 Days Qty: 20 0RF doxycycline hyclate 100 mg tablet 100 mg PO BID 5 Days Qty: 10 0RF hydromorphone 2 mg tablet 2 - 4 mg PO Q6H PRN (Reason: pain) 7 Days Qty: 30 0RF Continued estradiol 0.5 mg tablet 0.5 mg PO DAILY Qty: 30 3RF clonazepam 0.5 mg tablet 0.5 mg PO BID ondansetron HCl 4 mg tablet 4 mg PO Q8H PRN (Reason: nausea/vomiting) Qty: 30 3RF sumatriptan succinate 50 mg tablet 50 mg PO Q2-4H PRN (Reason: migraine headache) Qty: 9 0RF Rx Instructions: do not exceed 4 doses per 24 hrs metoclopramide HCl [Reglan] 5 mg Tablet 5 mg PO QAC Rx Instructions: administer 30 minutes before meals Caplyta 42 mg capsule 42 mg PO DAILY alprazolam 0.5 mg tablet 0.5 mg PO BID PRN (Reason: Anxiety) Discontinued oxycodone 5 mg tablet 5 mg PO TID PRN (Reason: pain) Qty: 14 0RF Follow up/Referrals: Romel Hemphill MD [Physician] - 1 Week (S/p I&D in the hospital on 10/26.) Sarah Dunbar MD [Primary Care Provider] - Diet/Activity/Treatments Diet: Diet as Tolerated and Regular Activity: As tolerated, no restrictions. Visit Report/Discharge Packet Instructions: DI for Incision and Drainage of a Joint, DI for Incision and Drainage, How to Use Antibiotics Wisely Stand Alone Forms: Patient Portal/API, Stroke Signs & Symptoms Discharge Data Primary Care Provider: Sarah Dunbar Quality VTE Deep Vein Thrombosis/Pulmonary Embolism Present on Admission: No
[2024-10-28] MEDS: ACETAMINOPHEN 325 MG TABLET 650 MG PO (11:10)
--- NOTE | 2024-10-28 12:04 | CM.DPC ---
DCP Cont. Reviewed EMR and team rounds for status updates. Pt has been medically cleared for home d/c, her spouse will transport her home. No further CM d/c needs identified at this time.
[2024-10-28] MEDS: SCOPOLAMINE 1 PATCH TOP (12:38)
== END 2024-10-28 13:00 | disposition home or self-care (01) | DRG 514 ==
LOC: ED 19:25 → AC 10-26 00:23
PROVIDERS: Orthopaedic Surgery Adult Reconstructive Orthopaedic Surgery; Admitting Provider Internal Medicine; Emergency Provider Emergency Medicine; PCP Student in an Organized Health Care Education/Training Program; Referring Provider Emergency Medicine; Visit Provider Internal Medicine
PROC: 0L970ZZ Drainage of Right Hand Tendon, Open Approach (ICD-10-PCS; principal; 2024-10-26 15:15)
DX: M65.841 Other synovitis and tenosynovitis, right hand (principal); I10 Essential (primary) hypertension; F41.9 Anxiety disorder, unspecified; E66.811 Obesity, class 1; G43.909 Migraine, unspecified, not intractable, without status migrainosus; Z68.30 Body mass index [BMI] 30.0-30.9, adult; Z79.890 Hormone replacement therapy
CPT/HCPCS: 11730; 36415; 64450; 73201; 80053; 84145; 85025; 85651; 86140; 87070; 87075; 87205; 96365; 96375; 96376; 99284; 99291; G0378; J0690; J0692; J0696; J1100; J1171; J1200; J1885; J2270; J2405; J2704; J3010; Q9967

== ENCOUNTER → 2024-11-10 08:47 | Outpatient (CLI) | payer OTHER, SELFPAY ==
[2024-10-26 01:31] VITALS: BMI 30.7
[2024-11-10 10:22] LABS: Add Manual Diff / Slide Review NO; Basophils Absolute Auto 0 /uL (0-100); Basophils Percent Auto 0.6 % (0-2); Eosinophils Absolute Auto 0 /uL (0-450); Eosinophils Percent Auto 0.6 % (2-4); Hemoglobin 11.1 g/dL (12.0-16.0); Lymphocytes Absolute Auto 2700 /uL (1100-4500); Lymphocytes Percent Auto 31.5 % (25-40); Mean Corpuscular HGB Conc 32.7 % (30-36); Mean Corpuscular Hemoglobin 25.4 PG (26-34); Mean Corpuscular Volume 77.8 fL (80-100); Monocytes Absolute Auto 800 /uL (0-900); Neutrophils Absolute Auto 5000 /uL (1500-7000); Neutrophils Percent Auto 58.3 % (50-75); Platelet Count 395 X10^3/uL (150-400); Red Blood Cell Count 4.38 X10^6/uL (4.0-5.2); Red Cell Distribution Width 16.3 % (11.6-14.8); White Blood Cell Count 8.5 X10^3/uL (4.5-11.0)
[2024-11-10 11:05] LABS: Erythrocyte Sedimentation Rate 12 MM/HR (0-20)
[2024-11-10 13:30] LABS: C-Reactive Protein Quant < 0.5 mg/dL (<1.0)
== END ==
PROVIDERS: PCP Student in an Organized Health Care Education/Training Program; Referring Provider Orthopaedic Surgery Adult Reconstructive Orthopaedic Surgery; Visit Provider Orthopaedic Surgery Adult Reconstructive Orthopaedic Surgery
DX: M65.949 Unspecified synovitis and tenosynovitis, unspecified hand (principal)
CPT/HCPCS: 36415; 85025; 85651; 86140

== ENCOUNTER 2024-11-17 21:06 | Emergency (ER) | payer SELFPAY ==
[2024-10-26 01:31] VITALS: BMI 30.7
[2024-11-17 21:30] VITALS: BP 139/81; PULSE 78; RESP 20; TEMP 36.7; O2SAT 100; BMI 31.4
[2024-11-17 23:25] LABS: Alanine Aminotransferase 24 IU/L (<35); Albumin 4.5 g/dL (3.5-5.0); Albumin Globulin Ratio 1.5 (1.0-2.8); Alkaline Phosphatase 61 U/L (38-126); Aspartate Aminotransferase 29 IU/L (14-36); BUN Creatinine Ratio 29.3 (6-22); Bilirubin Total 1.4 mg/dL (0.2-1.3); Blood Urea Nitrogen 12 mg/dL (7-17); Calcium 9.6 mg/dL (8.4-10.2); Carbon Dioxide 20 mmol/L (22-32); Chloride 105 mmol/L (98-107); Estimated Glomerular Filt Rate > 60 mL/min (>60); Glucose 98 mg/dL (70-100); Lipase 181 U/L (23-300); Potassium 4.2 mmol/L (3.4-5.1); Sodium 136 mmol/L (137-145); Total Protein 7.5 g/dL (6.3-8.2)
[2024-11-17 23:31] VITALS: PULSE 87; O2SAT 92
[2024-11-17 23:33] VITALS: BP 134/68; PULSE 78; O2SAT 99
[2024-11-17 23:33] LABS: HEMOLYSIS 72 (0-50)
[2024-11-18] VITALS: PULSE 88; O2SAT 97
[2024-11-18 00:01] VITALS: BP 111/71; PULSE 80; O2SAT 98
--- NOTE | 2024-11-18 00:18 | ED.ABDPAIN ---
HPI - Abdominal Pain General Chief Complaint: Abdominal Pain Stated Complaint: abd pain, n/v Time Seen by Provider: 11/18/24 00:17 Source: patient, RN notes reviewed and old records reviewed Mode of arrival: Ambulatory Limitations: no limitations History of Present Illness HPI narrative: 43-year-old female history of abdominal migraines, multiple abdominal surgeries including abdominal plasty, oophorectomy, gastric sleeve, cholecystectomy, appendectomy and tubal ligation has also had a prior ex lap which had retained dwight which were removed. Patient presents today with complaint of nausea, vomiting and diarrhea and left-sided abdominal pain since yesterday. Patient states it feels fairly similar to her prior abdominal migraines. She states she has not had 1 in about 2 months. She states no fevers. Has had nausea and vomiting. She has had loose watery stools but no black or bloody stools. Describes pain has been a little bit more to the left than midline. Denies any dysuria urgency or frequency. No new vaginal bleeding or discharge. Patient has recently been on antibiotics and was on Keflex and doxycycline and then changed to Bactrim which he was still taking. This was for an injury to her hand which required surgery. She just had follow up earlier during the day with Orthopedic surgery and they both feel it is improving. States did develop an allergy to vancomycin no other new allergies to medications. Besides surgery on her hand no other new surgeries or medication changes other than above. No tobacco, occasional alcohol, no recreational drugs. Related Data Home Medications Medication Instructions Recorded Confirmed alprazolam 0.5 mg tablet 0.5 mg PO BID PRN Anxiety 05/06/23 10/26/24 metoclopramide HCl 5 mg tablet 5 mg PO QAC 07/24/24 10/26/24 (Reglan) clonazepam 0.5 mg tablet 0.5 mg PO BID 08/24/24 10/26/24 lumateperone 42 mg capsule 42 mg PO DAILY 10/26/24 10/26/24 (Caplyta) Previous Rx's Medication Instructions Recorded sumatriptan succinate 50 mg tablet 50 mg PO Q2-4H PRN migraine 04/28/24 headache #9 tabs ondansetron HCl 4 mg tablet 4 mg PO Q8H PRN nausea/vomiting 09/07/24 #30 tabs estradiol 0.5 mg tablet 0.5 mg PO DAILY #30 tabs 11/12/24 Allergies Allergy/AdvReac Type Severity Reaction Status Date / Time vancomycin Allergy Intermediate ITCHING Verified 11/17/24 21:29 gluten Allergy Celiac Verified 11/17/24 21:29 coconut AdvReac Intermediate Hives Verified 11/17/24 21:29 NSAIDS (Non-Steroidal AdvReac Mild Gastrointestinal Verified 11/17/24 21:29 Anti-Inflamma Upset benzonatate AdvReac Unknown Hives Verified 11/17/24 21:29 [From Tessalon Perles] escitalopram [From Lexapro] AdvReac Unknown Hallucinati Verified 11/17/24 21:29 ng Review of Systems Review of Systems ROS Unobtainable: All systems reviewed & are unremarkable except as noted in HPI and below Patient History Medical History Left corneal abrasion Headache Polycystic ovary disease Celiac disease GERD with apnea Hypertension Bipolar disorder Surgical History Status post tubal ligation History of section H/O abdominoplasty H/O oophorectomy H/O gastric sleeve History of cholecystectomy History of appendectomy Social History marital status: household members: significant other and children lives independently: Yes occupational status: employed Smoking Status: Never smoker alcohol intake: never substance use type: marijuana Smoking Status: Never smoker alcohol intake frequency: holidays/special occasions only Exam Narrative Exam Narrative: GENERAL: Alert and oriented x three, female in mild distress HEENT: Head normocephalic, atraumatic, EOMI, pupils reactive, face symmetric, moist mucous membranes NECK: Supple, full range of motion CARDIOVASCULAR: Regular rate and rhythm without murmurs, rubs or gallops. RESPIRATORY: Breath sounds equal bilaterally, no wheezes rales or rhonchi. ABDOMEN: Soft, mild generalized tenderness. No distention. Normoactive bowel sounds all 4 quadrants. No guarding or rebound, rigidity, no mass : No CVA tenderness EXTREMITIES: Normal range of motion, no clubbing or edema. Neurovascularly intact. Patient has healing incision on the thenar eminence of her right hand as well as looks like the nail is removed and had suturing there as well. There some slight swelling but no erythema, has normal range of motion cap refills less than 2 seconds. NEUROLOGICAL: Cranial nerves II through XII grossly intact. Moving all extremities SKIN: Warm, dry, no petechiae, no rashes or lesions. Initial Vital Signs Initial Vital Signs: Vital Signs Temperature 98.0 F 11/17/24 21:30 Pulse Rate 78 11/17/24 21:30 Respiratory Rate 20 11/17/24 21:30 Blood Pressure 139/81 11/17/24 21:30 Pulse Oximetry 100 11/17/24 21:30 Oxygen Delivery Method Room Air 11/17/24 21:30 Course Orders Ordered: ED Orders 11/17/24 23:08 Comprehensive Metabolic Panel Stat Lipase Stat 11/17/24 23:59 Complete Blood Count AUTO DIFF Stat Discontinued Medications Diphenhydramine HCl (Diphenhydramine 50 Mg/Ml Vial) 50 mg IV NOW ONE Stop: 11/18/24 00:28 Last Admin: 11/18/24 00:43 Dose: 50 mg Documented By: JAN Haloperidol (Haloperidol 5 Mg/Ml Vial) 5 mg IV NOW ONE Stop: 11/18/24 00:27 Last Admin: 11/18/24 00:43 Dose: 5 mg Documented By: JAN Sodium Chloride (Normal Saline 0.9%) 1,000 mls @ 1,000 mls/hr IV BOLUS ONE Stop: 11/18/24 01:22 Last Infusion: 11/18/24 01:42 Dose: Infused Documented By: Admin: 11/18/24 00:42 Dose: 1,000 mls/hr Documented By: JAN Ondansetron HCl (Ondansetron 4 Mg/2 Ml Inj) 4 mg IV NOW PRN PRN Reason: Nausea And Vomiting Ondansetron HCl (Ondansetron 4 Mg Odt) 4 mg PO NOW PRN PRN Reason: Nausea And Vomiting Vital Signs Vital signs: Vital Signs - 8 hr 11/17/24 21:30 11/17/24 23:31 11/17/24 23:33 Temperature 98.0 F Pulse Rate 78 87 Respiratory Rate 20 Blood Pressure 139/81 134/68 Pulse Oximetry 100 92 Oxygen Delivery Method Room Air 11/17/24 23:33 11/18/24 00:00 11/18/24 00:01 Temperature Pulse Rate 78 88 80 Respiratory Rate Blood Pressure Pulse Oximetry 99 97 98 Oxygen Delivery Method 11/18/24 00:01 11/18/24 00:30 11/18/24 00:30 Temperature Pulse Rate 77 Respiratory Rate 18 Blood Pressure 111/71 101/65 Pulse Oximetry 97 Oxygen Delivery Method 11/18/24 01:00 11/18/24 01:01 11/18/24 01:01 Temperature Pulse Rate 75 74 Respiratory Rate Blood Pressure 128/77 Pulse Oximetry 98 98 Oxygen Delivery Method 11/18/24 01:30 11/18/24 01:30 Temperature Pulse Rate 74 Respiratory Rate Blood Pressure 126/81 Pulse Oximetry 99 Oxygen Delivery Method MDM - Abdominal Pain Lab Data 11/17/24 23:59 11/17/24 23:08 Labs: Lab Results 11/17/24 11/17/24 Range/Units 23:08 23:59 WBC 10.5 (4.5-11.0) X10^3/uL RBC 4.46 (4.0-5.2) X10^6/uL Hgb 11.3 L (12.0-16.0) g/dL Hct 34.7 L (36-46) % MCV 77.9 L (80-100) fL MCH 25.4 L (26-34) PG MCHC 32.7 (30-36) % RDW 17.2 H (11.6-14.8) % Plt Count 398 (150-400) X10^3/uL Neut % (Auto) 44.9 L (50-75) % Lymph % (Auto) 44.1 H (25-40) % Pierce % (Auto) 8.8 (3-14) % Eos % (Auto) 1.4 L (2-4) % Baso % (Auto) 0.8 (0-2) % Neut # (Auto) 4700 (7722-5317) /uL Lymph # (Auto) 4600 H (1971-2137) /uL Pierce # (Auto) 900 (0-900) /uL Eos # (Auto) 100 (0-450) /uL Baso # (Auto) 100 (0-100) /uL Sodium 136 L (137-145) mmol/L Potassium 4.2 (3.4-5.1) mmol/L Chloride 105 (98-107) mmol/L Carbon Dioxide 20 L (22-32) mmol/L BUN 12 (7-17) mg/dL Creatinine 0.41 L (0.52-1.04) mg/dL Estimated GFR > 60 (>60) mL/min BUN/Creatinine Ratio 29.3 H (6-22) Glucose 98 (70-100) mg/dL Calcium 9.6 (8.4-10.2) mg/dL Total Bilirubin 1.4 H (0.2-1.3) mg/dL AST 29 (14-36) IU/L ALT 24 (<35) IU/L Alkaline Phosphatase 61 (38-126) U/L Total Protein 7.5 (6.3-8.2) g/dL Albumin 4.5 (3.5-5.0) g/dL Globulin 3.0 (1.7-4.1) g/dL Albumin/Globulin Ratio 1.5 (1.0-2.8) Lipase 181 (23-300) U/L MDM Narrative Medical decision making narrative: CBC labs show white count of 10.8 hemoglobin 7.3 consistent with priors platelets are 398 predominance of lymphocytes. CMP shows sodium 136 potassium 4.2 chloride of 105 CO2 of 20 BUN 12 creatinine 0.41, glucose of 98, bilirubin is 1.4, AST, ALT and alk-phos are appropriate, lipase is 181. Urine was not obtained. 43-year-old female with nausea vomiting diarrhea and left-sided abdominal pain, patient's bilirubin is noted to be elevated from prior patient's pain is on the opposite side of her liver. Patient notes this feels similar to her prior abdominal migraines she was responded well to Haldol in the past. Patient had Haldol and benadryl and fluids. Patient feels improved after medications requesting return home. Has not made a urine sample so far is aware we have not ruled out UTI or urinary source. Patient has had hysterectomy so is not required. Patient expresses understanding and if persisting symptoms needs to have repeat eval and urine checked for infection, hematuria, ect. Discharge Plan Departure Patient Disposition: Home Clinical Impression: Vomiting Instructions: DI for Vomiting -- Adult Activity Restrictions/Additional Instructions: Follow up for recheck as needed. We did not obtain a urine sample so we have not ruled out a UTI as a potential cause of your nausea or vomiting please follow up to have this done if your symptoms are persisting. Continue home medications as prescribed. Please return for fevers, new or worsening symptoms, persistent vomiting, black or bloody stools, lightheadedness or passing out or other new or concerning changes. Prescriptions: No Action clonazepam 0.5 mg tablet 0.5 mg PO BID ondansetron HCl 4 mg tablet 4 mg PO Q8H PRN (Reason: nausea/vomiting) Qty: 30 3RF estradiol 0.5 mg tablet 0.5 mg PO DAILY Qty: 30 3RF sumatriptan succinate 50 mg tablet 50 mg PO Q2-4H PRN (Reason: migraine headache) Qty: 9 0RF Rx Instructions: do not exceed 4 doses per 24 hrs metoclopramide HCl [Reglan] 5 mg Tablet 5 mg PO QAC Rx Instructions: administer 30 minutes before meals Caplyta 42 mg capsule 42 mg PO DAILY alprazolam 0.5 mg tablet 0.5 mg PO BID PRN (Reason: Anxiety) Referrals: Sarah Dunbar MD [Primary Care Provider] - Stand Alone Forms: Patient Portal/API/Survey
[2024-11-18 00:22] LABS: Add Manual Diff / Slide Review NO; Basophils Absolute Auto 100 /uL (0-100); Basophils Percent Auto 0.8 % (0-2); Eosinophils Absolute Auto 100 /uL (0-450); Eosinophils Percent Auto 1.4 % (2-4); Hematocrit 34.7 % (36-46); Hemoglobin 11.3 g/dL (12.0-16.0); Lymphocytes Absolute Auto 4600 /uL (1100-4500); Lymphocytes Percent Auto 44.1 % (25-40); Mean Corpuscular HGB Conc 32.7 % (30-36); Mean Corpuscular Hemoglobin 25.4 PG (26-34); Mean Corpuscular Volume 77.9 fL (80-100); Monocytes Absolute Auto 900 /uL (0-900); Monocytes Percent Auto 8.8 % (3-14); Neutrophils Absolute Auto 4700 /uL (1500-7000); Neutrophils Percent Auto 44.9 % (50-75); Platelet Count 398 X10^3/uL (150-400); Red Blood Cell Count 4.46 X10^6/uL (4.0-5.2); Red Cell Distribution Width 17.2 % (11.6-14.8); White Blood Cell Count 10.5 X10^3/uL (4.5-11.0)
[2024-11-18 00:30] VITALS: BP 101/65; PULSE 77; RESP 18; O2SAT 97
[2024-11-18] MEDS: SODIUM CHLORIDE 0.9% 1,000 ML 1000 ML IV (00:42)
[2024-11-18] MEDS: HALOPERIDOL 5 MG/ML VIAL IV (00:43)
[2024-11-18] MEDS: diphenhydrAMINE 50 MG/ML VIAL IV (00:43)
[2024-11-18 01:00] VITALS: PULSE 75; O2SAT 98
[2024-11-18 01:01] VITALS: BP 128/77; PULSE 74; O2SAT 98
[2024-11-18 01:30] VITALS: BP 126/81; PULSE 74; O2SAT 99
== END 2024-11-18 01:51 | disposition home or self-care (01) ==
PROVIDERS: Emergency Provider Emergency Medicine; PCP Student in an Organized Health Care Education/Training Program
DX: R11.2 Nausea with vomiting, unspecified (principal); R10.9 Unspecified abdominal pain
CPT/HCPCS: 36415; 80053; 83690; 85025; 96361; 96374; 96375; 99284; J1200; J1630

== ENCOUNTER → 2024-11-21 16:42 | Outpatient (CLI) | payer SELFPAY ==
[2024-10-26 01:31] VITALS: BMI 30.7
--- NOTE | 2024-11-21 16:47 | DI.RAD.S_ITS ---
PROCEDURE: XR FINGER RT MIN 2V INDICATIONS: Finger pain postsurgery TECHNIQUE: AP hand, 2 views of the 1st finger(s) acquired. COMPARISON: [facility], CT, CT HAND RIGHT WITH CON, 10/26/2024, 8:24. [facility], CR, XR FINGER RT MIN 2V, 10/03/2024, 12:37. FINDINGS: Bones: Ill-defined lucencies are identified at the distal aspect of the proximal and distal phalanx seen only on one view. Soft tissues: No suspicious soft tissue calcifications. Soft tissue defect is present overlying the distal phalanx. IMPRESSION: Soft tissue defect overlying the distal phalanx. Lucencies within the distal and proximal 1st phalanx. These could be postsurgical or artifactual, given appearance only on 1 image.. Dictated by: Gisselle Hernandes M.D. on 11/21/2024 at 18:28 Approved by: Gisselle Hernandes M.D. on 11/21/2024 at 18:30
== END ==
PROVIDERS: PCP Student in an Organized Health Care Education/Training Program; Referring Provider Nurse Practitioner Family; Visit Provider Nurse Practitioner Family
DX: M79.89 Other specified soft tissue disorders (principal); M79.644 Pain in right finger(s)
CPT/HCPCS: 73140

== ENCOUNTER → 2024-11-24 08:54 | Outpatient (CLI) | payer SELFPAY ==
[2024-10-26 01:31] VITALS: BMI 30.7
[2024-11-24 09:35] LABS: Add Manual Diff / Slide Review NO; Basophils Absolute Auto 100 /uL (0-100); Basophils Percent Auto 0.6 % (0-2); Eosinophils Absolute Auto 200 /uL (0-450); Eosinophils Percent Auto 1.9 % (2-4); Hemoglobin 11.3 g/dL (12.0-16.0); Lymphocytes Absolute Auto 3200 /uL (1100-4500); Lymphocytes Percent Auto 35.1 % (25-40); Mean Corpuscular HGB Conc 32.3 % (30-36); Mean Corpuscular Hemoglobin 25.5 PG (26-34); Monocytes Absolute Auto 900 /uL (0-900); Monocytes Percent Auto 10.3 % (3-14); Neutrophils Absolute Auto 4700 /uL (1500-7000); Neutrophils Percent Auto 52.1 % (50-75); Platelet Count 384 X10^3/uL (150-400); Red Blood Cell Count 4.43 X10^6/uL (4.0-5.2); Red Cell Distribution Width 17.5 % (11.6-14.8); White Blood Cell Count 9.1 X10^3/uL (4.5-11.0)
[2024-11-24 10:09] LABS: C-Reactive Protein Quant < 0.5 mg/dL (<1.0)
[2024-11-24 11:03] LABS: Erythrocyte Sedimentation Rate 1 MM/HR (0-20)
== END ==
PROVIDERS: PCP Student in an Organized Health Care Education/Training Program; Referring Provider Orthopaedic Surgery Adult Reconstructive Orthopaedic Surgery; Visit Provider Orthopaedic Surgery Adult Reconstructive Orthopaedic Surgery
DX: M65.949 Unspecified synovitis and tenosynovitis, unspecified hand (principal)
CPT/HCPCS: 36415; 85025; 85651; 86140

== ENCOUNTER 2024-12-02 13:34 | Emergency (ER) | payer OTHER, SELFPAY ==
[2024-10-26 01:31] VITALS: BMI 30.7
[2024-12-02] VITALS (11 sets, daily range): BP systolic 129–187; BP diastolic 74–102; PULSE 67–90; RESP 16–18; TEMP 37.2; O2SAT 97–100; BMI 31.4
[2024-12-02 14:45] LABS: Add Manual Diff / Slide Review NO; Basophils Absolute Auto 100 /uL (0-100); Basophils Percent Auto 0.8 % (0-2); Eosinophils Absolute Auto 100 /uL (0-450); Eosinophils Percent Auto 1.2 % (2-4); Hemoglobin 11.4 g/dL (12.0-16.0); Lymphocytes Absolute Auto 2900 /uL (1100-4500); Lymphocytes Percent Auto 27.8 % (25-40); Mean Corpuscular HGB Conc 32.5 % (30-36); Mean Corpuscular Hemoglobin 25.4 PG (26-34); Mean Corpuscular Volume 78.1 fL (80-100); Monocytes Absolute Auto 700 /uL (0-900); Monocytes Percent Auto 6.3 % (3-14); Neutrophils Absolute Auto 6700 /uL (1500-7000); Neutrophils Percent Auto 63.9 % (50-75); Platelet Count 357 X10^3/uL (150-400); Red Blood Cell Count 4.48 X10^6/uL (4.0-5.2); Red Cell Distribution Width 17.3 % (11.6-14.8); White Blood Cell Count 10.5 X10^3/uL (4.5-11.0)
[2024-12-02 14:46] LABS: Alanine Aminotransferase 28 IU/L (<35); Albumin 4.6 g/dL (3.5-5.0); Albumin Globulin Ratio 1.4 (1.0-2.8); Alkaline Phosphatase 71 U/L (38-126); Aspartate Aminotransferase 29 IU/L (14-36); BUN Creatinine Ratio 28.9 (6-22); Bilirubin Total 0.8 mg/dL (0.2-1.3); Blood Urea Nitrogen 13 mg/dL (7-17); Calcium 9.4 mg/dL (8.4-10.2); Carbon Dioxide 23 mmol/L (22-32); Chloride 105 mmol/L (98-107); Estimated Glomerular Filt Rate > 60 mL/min (>60); Globulin 3.2 g/dL (1.7-4.1); Glucose 107 mg/dL (70-100); HEMOLYSIS < 15 (0-50); Lipase 191 U/L (23-300); Potassium 4.2 mmol/L (3.4-5.1); Sodium 139 mmol/L (137-145); Total Protein 7.8 g/dL (6.3-8.2)
--- NOTE | 2024-12-02 22:41 | ED.ABDPAIN ---
HPI - Abdominal Pain General Chief Complaint: Abdominal Pain Stated Complaint: PCP sent pain right side front and back Time Seen by Provider: 12/02/24 22:17 History of Present Illness HPI narrative: Patient is a 43-year-old female history of appendectomy cholecystectomy reports that she makes loss of adhesions has previously had abdominal migraines presenting today with pretty intense right-sided lower abdominal pain. She was feeling nauseous not passing gas. She actually does not report history of obstruction. But pain is quite intense very different from her abdominal migraine. She has not had any vomiting gets sweats at times. Denies any prior history of kidney stone as well Related Data Home Medications Medication Instructions Recorded Confirmed alprazolam 0.5 mg tablet 0.5 mg PO BID PRN Anxiety 05/06/23 10/26/24 metoclopramide HCl 5 mg tablet 5 mg PO QAC 07/24/24 10/26/24 (Reglan) clonazepam 0.5 mg tablet 0.5 mg PO BID 08/24/24 10/26/24 lumateperone 42 mg capsule 42 mg PO DAILY 10/26/24 10/26/24 (Caplyta) gabapentin 100 mg capsule 100 mg PO TID 11/21/24 11/21/24 Previous Rx's Medication Instructions Recorded sumatriptan succinate 50 mg tablet 50 mg PO Q2-4H PRN migraine 04/28/24 headache #9 tabs ondansetron HCl 4 mg tablet 4 mg PO Q8H PRN nausea/vomiting 09/07/24 #30 tabs estradiol 0.5 mg tablet 0.5 mg PO DAILY #30 tabs 11/12/24 Allergies Allergy/AdvReac Type Severity Reaction Status Date / Time vancomycin Allergy Intermediate ITCHING Verified 11/21/24 16:36 gluten Allergy Celiac Verified 11/21/24 16:36 coconut AdvReac Intermediate Hives Verified 11/21/24 16:36 NSAIDS (Non-Steroidal AdvReac Mild Gastrointestinal Verified 11/21/24 16:36 Anti-Inflamma Upset benzonatate AdvReac Unknown Hives Verified 11/21/24 16:36 [From Tessalon Perles] escitalopram [From Lexapro] AdvReac Unknown Hallucinati Verified 11/21/24 16:36 ng Patient History Medical History Left corneal abrasion Headache Polycystic ovary disease Celiac disease GERD with apnea Hypertension Bipolar disorder Surgical History Status post tubal ligation History of section H/O abdominoplasty H/O oophorectomy H/O gastric sleeve History of cholecystectomy History of appendectomy Social History marital status: household members: significant other and children lives independently: Yes occupational status: employed Smoking Status: Never smoker alcohol intake: never substance use type: marijuana Smoking Status: Never smoker alcohol intake frequency: holidays/special occasions only Exam Initial Vital Signs Initial Vital Signs: Vital Signs Temperature 99.0 F 12/02/24 14:01 Pulse Rate 80 12/02/24 14:01 Respiratory Rate 18 12/02/24 14:01 Blood Pressure 161/102 H 12/02/24 14:01 Pulse Oximetry 100 12/02/24 14:01 Oxygen Delivery Method Room Air 12/02/24 14:01 GENERAL: Alert 43-year-old female appears very uncommon HEENT: Head atraumatic,EOMI, pupils reactive, face symmetric, moist mucous membranes CARDIOVASCULAR: Regular rate and rhythm without murmurs, rubs or gallops. RESPIRATORY: Breath sounds equal bilaterally, no wheezes rales or rhonchi. ABDOMEN: Soft, tender right lower quadrant no guarding no rebound : No CVA tenderness EXTREMITIES: Normal range of motion, no clubbing or edema. Neurovascularly intact NEUROLOGICAL: Alert and oriented x4.Normal gait and speech. Cranial nerves II through XII grossly intact. SKIN: Warm, dry, no laceration, no petechiae, no rashes or lesions. Course Orders Ordered: ED Orders 12/02/24 22:41 CT abdomen pelvis w con Stat Discontinued Medications Hydromorphone HCl (Hydromorphone 0.5 Mg Inj) 0.5 mg IV NOW ONE Stop: 12/02/24 22:42 Last Admin: 12/02/24 22:48 Dose: 0.5 mg Documented By: NICOLAS Hydromorphone HCl (Hydromorphone 1 Mg Inj) 1 mg IV NOW ONE Stop: 12/03/24 00:07 Last Admin: 12/03/24 00:16 Dose: 1 mg Documented By: MARY LOU Acetaminophen (Ofirmev) 1,000 mg in 100 mls @ 400 mls/hr IV NOW ONE Stop: 12/03/24 00:21 Last Infusion: 12/03/24 00:41 Dose: Infused Documented By: MARY LOU Admin: 12/03/24 00:14 Dose: 400 mls/hr Documented By: MARY LOU Ondansetron HCl (Ondansetron 4 Mg/2 Ml Inj) 4 mg IV NOW PRN PRN Reason: Nausea And Vomiting Ondansetron HCl (Ondansetron 4 Mg Odt) 4 mg PO NOW PRN PRN Reason: Nausea And Vomiting Vital Signs Vital signs: Vital Signs - 8 hr 12/02/24 21:21 12/02/24 21:21 12/02/24 21:45 Pulse Rate 70 77 Respiratory Rate Blood Pressure 187/97 H Pulse Oximetry 98 99 Oxygen Delivery Method 12/02/24 21:47 12/02/24 21:47 12/02/24 22:00 Pulse Rate 76 90 Respiratory Rate Blood Pressure 140/87 Pulse Oximetry 99 98 Oxygen Delivery Method 12/02/24 22:00 12/02/24 22:30 12/02/24 22:31 Pulse Rate 82 83 Respiratory Rate Blood Pressure 146/98 H Pulse Oximetry 97 98 Oxygen Delivery Method 12/02/24 22:31 12/02/24 23:01 12/02/24 23:30 Pulse Rate 70 71 Respiratory Rate Blood Pressure 160/100 H Pulse Oximetry 100 98 Oxygen Delivery Method 12/03/24 00:00 12/03/24 00:30 12/03/24 01:00 Pulse Rate 71 71 71 Respiratory Rate Blood Pressure Pulse Oximetry 98 96 99 Oxygen Delivery Method 12/03/24 01:32 Pulse Rate 71 Respiratory Rate 17 Blood Pressure 160/74 H Pulse Oximetry 100 Oxygen Delivery Method Room Air MDM - Abdominal Pain Lab Data 12/02/24 14:20 12/02/24 14:20 Labs: Lab Results 12/02/24 Range/Units 14:20 WBC 10.5 (4.5-11.0) X10^3/uL RBC 4.48 (4.0-5.2) X10^6/uL Hgb 11.4 L (12.0-16.0) g/dL Hct 35.0 L (36-46) % MCV 78.1 L (80-100) fL MCH 25.4 L (26-34) PG MCHC 32.5 (30-36) % RDW 17.3 H (11.6-14.8) % Plt Count 357 (150-400) X10^3/uL Neut % (Auto) 63.9 (50-75) % Lymph % (Auto) 27.8 (25-40) % [place] % (Auto) 6.3 (3-14) % Eos % (Auto) 1.2 L (2-4) % Baso % (Auto) 0.8 (0-2) % Neut # (Auto) 6700 (5401-3491) /uL Lymph # (Auto) 2900 (8877-3993) /uL [place] # (Auto) 700 (0-900) /uL Eos # (Auto) 100 (0-450) /uL Baso # (Auto) 100 (0-100) /uL Sodium 139 (137-145) mmol/L Potassium 4.2 (3.4-5.1) mmol/L Chloride 105 (98-107) mmol/L Carbon Dioxide 23 (22-32) mmol/L BUN 13 (7-17) mg/dL Creatinine 0.45 L (0.52-1.04) mg/dL Estimated GFR > 60 (>60) mL/min BUN/Creatinine Ratio 28.9 H (6-22) Glucose 107 H (70-100) mg/dL Calcium 9.4 (8.4-10.2) mg/dL Total Bilirubin 0.8 (0.2-1.3) mg/dL AST 29 (14-36) IU/L ALT 28 (<35) IU/L Alkaline Phosphatase 71 (38-126) U/L Total Protein 7.8 (6.3-8.2) g/dL Albumin 4.6 (3.5-5.0) g/dL Globulin 3.2 (1.7-4.1) g/dL Albumin/Globulin Ratio 1.4 (1.0-2.8) Lipase 191 (23-300) U/L Point of care testing: Point of Care Testing Test Results Negative Urine Dip Bedside Urine Glucose Negative Bedside Urine Bilirubin - Negative Bedside Urine Ketone - Negative Urine Specific [place] 1.015 Bedside Urine Occult Blood - Negative Bedside Urine pH 6.0 Bedside Urine Protein - Negative Bedside Urine Urobilinogen - Negative Bedside Urine Nitrite - Negative Bedside Urine Leukocytes - Negative Esterase Imaging Data CT scan - abdomen/pelvis: Radiologist's Impression: PROCEDURE: CT ABDOMEN PELVIS W CON INDICATIONS: right lower quad pain hx of obstruction TECHNIQUE: After the administration of intravenous contrast, axial sections acquired from the lung bases to the pubic symphysis. Coronal and sagittal reformats were performed. For radiation dose reduction, the following was used: automated exposure control, adjustment of mA and/or kV according to patient size. COMPARISON: [facility], CT, CT ABDOMEN PELVIS W CON, 09/07/2024, 23:22. [facility], CT, CT ABDOMEN PELVIS W CON, 07/25/2024, 18:02. FINDINGS: Image quality: Diagnostic. Lower Chest: No significant findings. Small hiatal hernia. ABDOMEN: Liver: No solid mass. Gallbladder: Surgically absent Biliary ducts: No biliary dilation. Pancreas: No ductal dilation. Spleen: Size is within normal limits. Stable splenic cyst with peripheral calcifications. Adrenal Glands: No adrenal nodules. Kidneys and Ureters: No hydronephrosis. No solid mass. No complex renal cystic lesion which requires follow up. Stomach and Bowel: Normal colonic caliber, without significant wall thickening. No evidence for small bowel obstruction or associated inflammatory changes. Scattered colonic diverticula without acute inflammation. Stable postsurgical changes of prior sleeve gastrectomy. Peritoneum: No abnormal intraperitoneal fluid. No free air. Ventral Wall: Stable postsurgical changes of the ventral abdomen. Abdominal Nodes: No retroperitoneal or mesenteric adenopathy by size criteria. Vessels: Aorta and inferior vena cava are normal in size. PELVIS: Pelvic Organs: Status post hysterectomy. Bladder: Urinary bladder thickness appears normal for degree of distention. No perivesicular inflammatory stranding. Pelvic Nodes: No enlarged lymph nodes. Miscellaneous: No inguinal hernias are seen. Bones: No aggressive osseous abnormality. Visualized osseous structures appear intact without acute fracture or focal destructive lesion. No acute compression fractures of the imaged spine. IMPRESSION: CT abdomen and pelvis without acute abnormalities to explain patient's symptoms. Colonic diverticulosis without acute diverticulitis. No evidence for bowel obstruction. Other chronic findings as above. Dictated by: Gurvinder Mckeon M.D. on 12/02/2024 at 23:32 Approved by: Gurvinder Mckeon M.D. on 12/02/2024 at 23:37 ECG Data Attestation: I personally reviewed and interpreted this ECG as follows: Prior ECG tracings: not available for review Interpretation: 1st EKGs very poor quality Repeat EKGs sinus rhythm rate 74 AR interval 136 QRS [address] changes MDM Narrative Medical decision making narrative: Patient is a 43-year-old female presenting today with abdominal pain. She was prior history of significant adhesions multiple surgeries presenting with right lower quadrant pain. She was having some mild flank pain feeling nauseous not passing gas. Pain quite intense. Blood work has been reviewed No leukocytosis no anemia No electrolyte abnormality no ALEN Urinalysis save for UTI and CT does not show any cause for abdominal pain no nephrolithiasis diverticulitis bowel obstruction Patient appears in pain, she was given Dilaudid which he said did not really work she is really appears uncomfortable. He was given another dose of Dilaudid and IV Tylenol which did help considerably. Overall feeling better. Ovarian cyst torsion was considered however is quite high no obvious cyst is noted on CT. No need for ultrasound at this time. Discharge Plan Departure Patient Disposition: Home Clinical Impression: Abdominal pain Instructions: DI for Abdominal Pain-Adult Activity Restrictions/Additional Instructions: *You have been diagnosed with abdominal pain *What to do: At this time your CT and blood work overall reassuring. Unclear what exactly is causing your pain today but I am glad you are feeling better *Continue to take medications as directed Tylenol 1000 mg every 6 hours if needed for [id number] pain, next dose at 6:00 a.m. *Follow up with your primary care provider in 2-3 days or call [phone] *Return to ER if you should have increasing pain persistent vomiting or any new, worsening or concerning symptoms Prescriptions: No Action clonazepam 0.5 mg tablet 0.5 mg PO BID gabapentin 100 mg capsule 100 mg PO TID ondansetron HCl 4 mg tablet 4 mg PO Q8H PRN (Reason: nausea/vomiting) Qty: 30 3RF estradiol 0.5 mg tablet 0.5 mg PO DAILY Qty: 30 3RF sumatriptan succinate 50 mg tablet 50 mg PO Q2-4H PRN (Reason: migraine headache) Qty: 9 0RF Rx Instructions: do not exceed 4 doses per 24 hrs metoclopramide HCl [Reglan] 5 mg Tablet 5 mg PO QAC Rx Instructions: administer 30 minutes before meals Caplyta 42 mg capsule 42 mg PO DAILY alprazolam 0.5 mg tablet 0.5 mg PO BID PRN (Reason: Anxiety) Referrals: Sarah Dunbar MD [Primary Care Provider] - Stand Alone Forms: Patient Portal/API/Survey
[2024-12-02] MEDS: HYDROMORPHONE 0.5 MG INJ IV (22:48)
[2024-12-03] VITALS: PULSE 71; O2SAT 98
[2024-12-03] MEDS: ACETAMINOPHEN IV 1,000 MG/100 ML VIAL 400 MG IV (00:14)
[2024-12-03] MEDS: HYDROMORPHONE 1 MG INJ IV (00:16)
[2024-12-03 00:30] VITALS: PULSE 71; O2SAT 96
[2024-12-03 01:00] VITALS: PULSE 71; O2SAT 99
[2024-12-03 01:32] VITALS: BP 160/74; PULSE 71; RESP 17; O2SAT 100
== END 2024-12-03 01:32 | disposition home or self-care (01) ==
PROVIDERS: Emergency Medicine; Emergency Provider Emergency Medicine; PCP Student in an Organized Health Care Education/Training Program
DX: R10.31 Right lower quadrant pain (principal)
CPT/HCPCS: 36415; 74177; 80053; 81003; 81025; 83690; 85025; 96365; 96375; 96376; 99284; J0131; J1171; Q9967

== ENCOUNTER 2025-01-03 18:33 | Emergency (ER) | payer OTHER, SELFPAY ==
[2024-10-26 01:31] VITALS: BMI 30.7
[2025-01-03 18:35] VITALS: BP 151/107; PULSE 78; RESP 18; TEMP 36.4; O2SAT 98; BMI 32.4
--- NOTE | 2025-01-03 18:46 | EKG_ITS ---
[address] [address] Test Date: 2025-01-03 Pat Name: Janet Escobar Department: Room: Gender: Female Care Manager: MAYELIN : 1980 Requested By: Order Number: [id number] Reading MD: Wiliam Gutierrez Measurements Intervals [place] Rate: 69 P: 22 OK: 140 QRS: 70 QRSD: 80 T: 44 QT: 386 QTc: 413 Interpretive Statements Normal sinus rhythm Electronically Signed On 01-05-2025 17:39:28 PDT by Wiliam Gutierrez
[2025-01-03] MEDS: ONDANSETRON 4 MG/2 ML INJ IV (19:01)
[2025-01-03 19:03] LABS: Add Manual Diff / Slide Review NO; Basophils Absolute Auto 100 /uL (0-100); Basophils Percent Auto 0.6 % (0-2); Eosinophils Absolute Auto 100 /uL (0-450); Eosinophils Percent Auto 0.8 % (2-4); Hematocrit 34.3 % (36-46); Hemoglobin 11.5 g/dL (12.0-16.0); Lymphocytes Absolute Auto 4100 /uL (1100-4500); Mean Corpuscular HGB Conc 33.4 % (30-36); Mean Corpuscular Hemoglobin 26.1 PG (26-34); Mean Corpuscular Volume 77.9 fL (80-100); Monocytes Absolute Auto 800 /uL (0-900); Monocytes Percent Auto 5.7 % (3-14); Neutrophils Absolute Auto 8100 /uL (1500-7000); Neutrophils Percent Auto 61.9 % (50-75); Platelet Count 350 X10^3/uL (150-400); Red Cell Distribution Width 17.2 % (11.6-14.8); White Blood Cell Count 13.1 X10^3/uL (4.5-11.0)
[2025-01-03 21:24] LABS: Alanine Aminotransferase 24 IU/L (<35); Albumin 4.6 g/dL (3.5-5.0); Albumin Globulin Ratio 1.6 (1.0-2.8); Alkaline Phosphatase 80 U/L (38-126); Aspartate Aminotransferase 48 IU/L (14-36); BUN Creatinine Ratio 27.1 (6-22); Bilirubin Total 0.7 mg/dL (0.2-1.3); Blood Urea Nitrogen 16 mg/dL (7-17); Calcium 9.9 mg/dL (8.4-10.2); Carbon Dioxide 20 mmol/L (22-32); Chloride 109 mmol/L (98-107); Estimated Glomerular Filt Rate > 60 mL/min (>60); Globulin 2.8 g/dL (1.7-4.1); Glucose 101 mg/dL (70-99); HEMOLYSIS 15 (0-50); Lipase 148 U/L (23-300); Potassium 3.9 mmol/L (3.4-5.1); Sodium 140 mmol/L (137-145); Total Protein 7.4 g/dL (6.3-8.2)
== END 2025-01-03 20:53 | disposition left against medical advice (07) ==
PROVIDERS: Emergency Provider Emergency Medicine; PCP Student in an Organized Health Care Education/Training Program
DX: R10.12 Left upper quadrant pain (principal); R11.10 Vomiting, unspecified; M54.6 Pain in thoracic spine; Z87.442 Personal history of urinary calculi
CPT/HCPCS: 80053; 81003; 83690; 85025; 93005; 96374; 99283; J2405

== ENCOUNTER 2025-01-05 23:19 | Emergency (ER) | payer OTHER, SELFPAY ==
[2024-10-26 01:31] VITALS: BMI 30.7
[2025-01-05 23:29] VITALS: BP 142/78; PULSE 88; RESP 18; TEMP 36.5; O2SAT 100; BMI 31.4
[2025-01-06] VITALS (7 sets, daily range): BP systolic 112–153; BP diastolic 59–81; PULSE 63–87; O2SAT 98–99
[2025-01-06 01:07] LABS: Add Manual Diff / Slide Review NO; Basophils Absolute Auto 100 /uL (0-100); Basophils Percent Auto 0.5 % (0-2); Eosinophils Absolute Auto 300 /uL (0-450); Eosinophils Percent Auto 2.3 % (2-4); Hematocrit 34.3 % (36-46); Hemoglobin 11.4 g/dL (12.0-16.0); Lymphocytes Absolute Auto 3700 /uL (1100-4500); Lymphocytes Percent Auto 32.4 % (25-40); Mean Corpuscular HGB Conc 33.1 % (30-36); Mean Corpuscular Hemoglobin 25.5 PG (26-34); Mean Corpuscular Volume 77.1 fL (80-100); Monocytes Absolute Auto 1000 /uL (0-900); Monocytes Percent Auto 8.9 % (3-14); Neutrophils Absolute Auto 6400 /uL (1500-7000); Neutrophils Percent Auto 55.9 % (50-75); Platelet Count 359 X10^3/uL (150-400); Red Blood Cell Count 4.45 X10^6/uL (4.0-5.2); Red Cell Distribution Width 17.2 % (11.6-14.8); White Blood Cell Count 11.4 X10^3/uL (4.5-11.0)
[2025-01-06 01:30] LABS: Alanine Aminotransferase 24 IU/L (<35); Albumin 4.5 g/dL (3.5-5.0); Albumin Globulin Ratio 1.5 (1.0-2.8); Alkaline Phosphatase 75 U/L (38-126); Aspartate Aminotransferase 23 IU/L (14-36); Bilirubin Total 0.7 mg/dL (0.2-1.3); Blood Urea Nitrogen 15 mg/dL (7-17); Calcium 9.6 mg/dL (8.4-10.2); Carbon Dioxide 22 mmol/L (22-32); Chloride 108 mmol/L (98-107); Estimated Glomerular Filt Rate > 60 mL/min (>60); Glucose 105 mg/dL (70-99); HEMOLYSIS < 15 (0-50); Lipase 127 U/L (23-300); Potassium 3.8 mmol/L (3.4-5.1); Sodium 140 mmol/L (137-145); Total Protein 7.5 g/dL (6.3-8.2)
--- NOTE | 2025-01-06 01:41 | ED_ITS ---
HPI - Abdominal Pain General Chief Complaint: Abdominal Pain Stated Complaint: abd pain Time Seen by Provider: 01/06/25 00:15 Source: patient Mode of arrival: Ambulatory History of Present Illness HPI narrative: 44-year-old female with history of abdominal migraines, typically with central abdominal pain and nausea and vomiting, now has 3 days duration of left upper quadrant left flank area discomfort that feels somewhat different. Has had diverticulosis diagnosis in the past but can not remember diverticulitis diagnosis. She does not feel feverish. She is having bowel movements. No black or red stools. No loose stools. Related Data Home Medications Medication Instructions Recorded Confirmed alprazolam 0.5 mg tablet 0.5 mg PO BID PRN Anxiety 05/06/23 12/30/24 metoclopramide HCl 5 mg tablet 5 mg PO QAC 07/24/24 12/30/24 (Reglan) clonazepam 0.5 mg tablet 0.5 mg PO BID 08/24/24 12/30/24 lumateperone 42 mg capsule 42 mg PO DAILY 10/26/24 12/30/24 (Caplyta) gabapentin 100 mg capsule 100 mg PO TID 11/21/24 12/30/24 lamotrigine 25 mg tablet mg PO 12/30/24 12/30/24 Previous Rx's Medication Instructions Recorded sumatriptan succinate 50 mg tablet 50 mg PO Q2-4H PRN migraine 04/28/24 headache #9 tabs ondansetron HCl 4 mg tablet 4 mg PO Q8H PRN nausea/vomiting 09/07/24 #30 tabs estradiol 0.5 mg tablet 0.5 mg PO DAILY #30 tabs 11/12/24 cefdinir 300 mg capsule 300 mg PO BID 10 days #20 caps 01/06/25 Allergies Allergy/AdvReac Type Severity Reaction Status Date / Time vancomycin Allergy Intermediate ITCHING Verified 12/30/24 15:19 gluten Allergy Celiac Verified 12/30/24 15:19 coconut AdvReac Intermediate Hives Verified 12/30/24 15:19 NSAIDS (Non-Steroidal AdvReac Mild Gastrointestinal Verified 12/30/24 15:19 Anti-Inflamma Upset benzonatate AdvReac Unknown Hives Verified 12/30/24 15:19 [From Tessalon Perles] escitalopram [From Lexapro] AdvReac Unknown Hallucinati Verified 12/30/24 15:19 ng Patient History Medical History Left corneal abrasion Headache Polycystic ovary disease Celiac disease GERD with apnea Hypertension Bipolar disorder Surgical History Status post tubal ligation History of section H/O abdominoplasty H/O oophorectomy H/O gastric sleeve History of cholecystectomy History of appendectomy Social History marital status: household members: significant other and children lives independently: Yes occupational status: employed alcohol intake: never substance use type: marijuana alcohol intake frequency: holidays/special occasions only Exam Narrative Exam Narrative: GENERAL: Well-developed patient, in mild distress. HEAD: Atraumatic. Normocephalic. EYES: Pupils equal round and reactive. Extraocular motions intact. No scleral icterus. No injection or drainage. ENT: Nose without bleeding, purulent drainage. Throat without erythema, tonsillar hypertrophy or exudate. Airway patent. NECK: Trachea midline. Non tender CARDIOVASCULAR: Regular rate and rhythm without murmurs, gallops, or rubs. RESPIRATORY: Clear to auscultation. Breath sounds equal bilaterally. No wheezes, rales, or rhonchi. GASTROINTESTINAL: Abdomen with some tenderness right mid lower quadrant, no guarding or rebound tenderness, nondistended, active bowel tones without rushes or tinkles. EXTREMITIES: No edema or joint tenderness. BACK: Nontender without deformity or crepitance. No flank tenderness. NEURO: AOx3. Motor functions grossly nonfocal SKIN: No rash or erythema of visible areas Initial Vital Signs Initial Vital Signs: Vital Signs Temperature 97.7 F 01/05/25 23:29 Pulse Rate 88 01/05/25 23:29 Respiratory Rate 18 01/05/25 23:29 Blood Pressure 142/78 H 01/05/25 23:29 Pulse Oximetry 100 01/05/25 23:29 Oxygen Delivery Method Room Air 01/05/25 23:29 Course Orders Ordered: ED Orders 01/06/25 00:57 Complete Blood Count AUTO DIFF Stat Comprehensive Metabolic Panel Stat Lipase Stat 01/06/25 02:22 CT abdomen pelvis w con Stat 01/06/25 02:48 Urine Culture Stat Urine Microscopic Stat Discontinued Medications Cefdinir (Cefdinir 300 Mg Capsule) 300 mg PO NOW ONE Stop: 01/06/25 03:48 Last Admin: 01/06/25 03:53 Dose: 300 mg Documented By: DEMARCUS Hydromorphone HCl (Hydromorphone 0.5 Mg Inj) 0.5 mg IV NOW ONE Stop: 01/06/25 02:25 Last Admin: 01/06/25 02:46 Dose: 0.5 mg Documented By: DEMARCUS Sodium Chloride (Normal Saline 0.9%) 1,000 mls @ 1,000 mls/hr IV BOLUS ONE Stop: 01/06/25 03:23 Last Infusion: 01/06/25 04:01 Dose: Infused Documented By: Admin: 01/06/25 02:45 Dose: 1,000 mls/hr Documented By: DEMARCUS Ondansetron HCl (Ondansetron 4 Mg/2 Ml Inj) 4 mg IV NOW ONE Stop: 01/06/25 02:25 Last Admin: 01/06/25 02:45 Dose: 4 mg Documented By: DEMARCUS Vital Signs Vital signs: Vital Signs - 8 hr 01/05/25 23:29 01/06/25 02:00 01/06/25 02:30 Temperature 97.7 F Pulse Rate 88 87 77 Respiratory Rate 18 Blood Pressure 142/78 H 153/66 H Pulse Oximetry 100 98 98 Oxygen Delivery Method Room Air 01/06/25 02:31 01/06/25 02:31 01/06/25 02:52 Temperature Pulse Rate 77 Respiratory Rate Blood Pressure 123/81 124/59 L Pulse Oximetry Oxygen Delivery Method 01/06/25 02:52 01/06/25 03:00 01/06/25 03:30 Temperature Pulse Rate 70 63 66 Respiratory Rate Blood Pressure Pulse Oximetry 99 98 99 Oxygen Delivery Method 01/06/25 03:31 01/06/25 03:31 Temperature Pulse Rate 70 Respiratory Rate Blood Pressure 112/76 Pulse Oximetry 98 Oxygen Delivery Method MDM - Abdominal Pain Lab Data Attestation: I reviewed the patient's lab results. Lab results narrative: White blood cell count 91553, hemoglobin 11.4, platelets adequate. Basic metabolic panel unremarkable. Urine shows pyuria and bacteriuria, urine culture requested. 01/06/25 00:57 01/06/25 00:57 Labs: Lab Results 01/06/25 01/06/25 Range/Units 00:57 02:48 WBC 11.4 H (4.5-11.0) X10^3/uL RBC 4.45 (4.0-5.2) X10^6/uL Hgb 11.4 L (12.0-16.0) g/dL Hct 34.3 L (36-46) % MCV 77.1 L (80-100) fL MCH 25.5 L (26-34) PG MCHC 33.1 (30-36) % RDW 17.2 H (11.6-14.8) % Plt Count 359 (150-400) X10^3/uL Neut % (Auto) 55.9 (50-75) % Lymph % (Auto) 32.4 (25-40) % [place] % (Auto) 8.9 (3-14) % Eos % (Auto) 2.3 (2-4) % Baso % (Auto) 0.5 (0-2) % Neut # (Auto) 6400 (4073-7135) /uL Lymph # (Auto) 3700 (1125-4185) /uL [place] # (Auto) 1000 H (0-900) /uL Eos # (Auto) 300 (0-450) /uL Baso # (Auto) 100 (0-100) /uL Sodium 140 (137-145) mmol/L Potassium 3.8 (3.4-5.1) mmol/L Chloride 108 H (98-107) mmol/L Carbon Dioxide 22 (22-32) mmol/L BUN 15 (7-17) mg/dL Creatinine 0.60 (0.52-1.04) mg/dL Estimated GFR > 60 (>60) mL/min BUN/Creatinine Ratio 25.0 H (6-22) Glucose 105 H (70-99) mg/dL Calcium 9.6 (8.4-10.2) mg/dL Total Bilirubin 0.7 (0.2-1.3) mg/dL AST 23 (14-36) IU/L ALT 24 (<35) IU/L Alkaline Phosphatase 75 (38-126) U/L Total Protein 7.5 (6.3-8.2) g/dL Albumin 4.5 (3.5-5.0) g/dL Globulin 3.0 (1.7-4.1) g/dL Albumin/Globulin Ratio 1.5 (1.0-2.8) Lipase 127 (23-300) U/L Urine RBC 0-1/hpf (0-5/HPF) Urine WBC 30-100/hpf H (0-5/HPF) Ur Squamous Epith Cells 0-1 /hpf (0-5/HPF) Calcium Oxalate Crystal Occasional H Urine Bacteria Moderate (10-30) H (None) Urine Mucus 3+ H D (Negative) Vol Urine Centrifuged 10ml (spun) Point of care testing: Urine Dip Bedside Urine Glucose Negative Bedside Urine Bilirubin - Negative Bedside Urine Ketone - Negative Urine Specific [place] 1.025 Bedside Urine Occult Blood - Negative Bedside Urine pH 6.0 Bedside Urine Protein - Negative Bedside Urine Urobilinogen 0.2 Bedside Urine Nitrite - Negative Bedside Urine Leukocytes +/- 15 Esterase MDM Narrative Medical decision making narrative: 44-year-old female with history of ?abdominal migraine? now has somewhat different discomfort from her usual central abdominal discomfort, this time left upper quadrant and some left flank. No fevers or chills. Labs pending. Some tenderness left lower quadrant. CT abdomen and pelvis. Impressions: ?No evidence of colitis diverticulitis bowel obstruction obstructive uropathy.. See tele radiology report. Urinalysis suspicious for infection, urine culture requested. Oral cefdinir dose now, prescription course sent to her pharmacy. Discharge Plan Departure Patient Disposition: Home Clinical Impression: Abdominal pain, Urinary tract infection Activity Restrictions/Additional Instructions: History of abdominal migraine with usual typical pain more central, now with different abdominal pain that is more left-sided, no trauma, no fever. Some tenderness left-sided abdominal exam. CT abdomen and pelvis showed no acute changes. Urinalysis suspicious for infection. Oral antibiotic cefdinir given, prescription for further course sent to pharmacy. Take antibiotics as prescribed. Recheck symptoms and urine culture results in the next couple of days with your regular provider. Return to this/nearest emergency department for any change worsening symptoms or any concerns prior. Prescriptions: New cefdinir 300 mg capsule 300 mg PO BID 10 Days Qty: 20 0RF No Action clonazepam 0.5 mg tablet 0.5 mg PO BID gabapentin 100 mg capsule 100 mg PO TID lamotrigine 25 mg tablet PO ondansetron HCl 4 mg tablet 4 mg PO Q8H PRN (Reason: nausea/vomiting) Qty: 30 3RF estradiol 0.5 mg tablet 0.5 mg PO DAILY Qty: 30 3RF sumatriptan succinate 50 mg tablet 50 mg PO Q2-4H PRN (Reason: migraine headache) Qty: 9 0RF Rx Instructions: do not exceed 4 doses per 24 hrs metoclopramide HCl [Reglan] 5 mg Tablet 5 mg PO QAC Rx Instructions: administer 30 minutes before meals Caplyta 42 mg capsule 42 mg PO DAILY alprazolam 0.5 mg tablet 0.5 mg PO BID PRN (Reason: Anxiety) Referrals: Sarah Dunbar MD [Primary Care Provider] - Stand Alone Forms: Patient Portal/API/Survey
--- NOTE | 2025-01-06 02:22 | DI.CT.S_ITS ---
PROCEDURE: CT ABDOMEN PELVIS W CON INDICATIONS: L flank/LUQ pain TECHNIQUE: After the administration of intravenous contrast, axial sections acquired from the lung bases to the pubic symphysis. Coronal and sagittal reformats were performed. For radiation dose reduction, the following was used: automated exposure control, adjustment of mA and/or kV according to patient size. COMPARISON: [facility], CT, CT ABDOMEN PELVIS W CON, 12/02/2024, 22:47. FINDINGS: Image quality: Diagnostic. Lower Chest: No significant findings. Small hiatal hernia. ABDOMEN: Liver: No solid mass. Gallbladder: Surgically absent. Biliary ducts: No biliary dilation. Pancreas: No ductal dilation. Spleen: Size is within normal limits. Stable simple appearing cyst with some peripheral calcifications. Adrenal Glands: No adrenal nodules. Kidneys and Ureters: No hydronephrosis. No solid mass. No complex renal cystic lesion which requires follow up. Stomach and Bowel: Sleeve gastrectomy. Normal colonic caliber, without significant wall thickening. Diverticulosis without evidence of acute diverticulitis. Peritoneum: No abnormal intraperitoneal fluid. No free air. Ventral Wall: Stable postsurgical changes within the ventral abdominal wall. Abdominal Nodes: No retroperitoneal or mesenteric adenopathy by size criteria. Vessels: Aorta and inferior vena cava are normal in size. PELVIS: Pelvic Organs: Hysterectomy. Bladder: No bladder wall thickening, accounting for underdistention. Pelvic Nodes: No enlarged lymph nodes. Miscellaneous: No inguinal hernias are seen. Bones: No aggressive osseous abnormality. Degenerative changes of the spine. IMPRESSION: 1. No acute findings within the abdomen or pelvis. 2. Diverticulosis without evidence of acute diverticulitis. 3. Please see above for additional findings. Findings are concordant with preliminary interpretation provided by [facility]. Dictated by: Hamzah Acevedo M.D. on 01/06/2025 at 8:17 Approved by: Hamzah Acevedo M.D. on 01/06/2025 at 8:22
[2025-01-06] MEDS: ONDANSETRON 4 MG/2 ML INJ IV (02:45)
[2025-01-06] MEDS: SODIUM CHLORIDE 0.9% 1,000 ML 1000 ML IV (02:45)
[2025-01-06] MEDS: HYDROMORPHONE 0.5 MG INJ IV (02:46)
[2025-01-06 03:10] LABS: Bacteria Urine Moderate (10-30); Calcium Oxalate Crystals Urine Occasional; Mucus Urine 3+ (Negative); RBC Urine 0-1/HPF (0-5/HPF); Squamous Epithelial Cell Urine 0-1 /HPF (0-5/HPF); Urine Volume 10mL (spun); WBC Urine 30-100/HPF (0-5/HPF)
[2025-01-06] MEDS: CEFDINIR 300 MG CAPSULE PO (03:53)
== END 2025-01-06 04:04 | disposition home or self-care (01) ==
PROVIDERS: Emergency Provider Emergency Medicine; PCP Student in an Organized Health Care Education/Training Program
DX: N39.0 Urinary tract infection, site not specified (principal); R10.9 Unspecified abdominal pain
CPT/HCPCS: 36415; 74177; 80053; 81003; 81015; 83690; 85025; 87077; 87086; 87186; 96361; 96374; 96375; 99284; J1171; J2405; Q9967

== ENCOUNTER → 2025-01-06 09:16 | Outpatient (CLI) | payer OTHER, SELFPAY ==
[2024-10-26 01:31] VITALS: BMI 30.7
--- NOTE | 2025-01-06 09:17 | DI.RAD.S_ITS ---
PROCEDURE: XR CERVICAL SPINE 2V OR 3V INDICATIONS: neck us for posterior neck mass TECHNIQUE: 3 view(s) of the cervical spine were acquired. COMPARISON: [facility], , US SOFT TISSUE HEAD AND NECK, 01/06/2025, 9:35. FINDINGS: Bones: No fractures or dislocations to the C7 level. The lateral masses of C1 appear intact on the odontoid view. No suspicious bony lesions. Soft tissues: No prevertebral soft tissue swelling. IMPRESSION: No significant degenerative changes. No acute osseous abnormalities. Dictated by: Hamzah Acevedo M.D. on 01/06/2025 at 14:12 Approved by: Hamzah Acevedo M.D. on 01/06/2025 at 14:13
--- NOTE | 2025-01-06 09:17 | DI.US.S_ITS ---
PROCEDURE: US SOFT TISSUE HEAD AND NECK INDICATIONS: neck TECHNIQUE: Real-time scanning was performed of the neck region of interest, with image documentation. COMPARISON: None. FINDINGS: Focused ultrasound examination of bilateral posterior inferior scalp at patient's reported area of palpable lumps shows no discrete soft tissue mass or drainable fluid collection. IMPRESSION: No abnormalities are seen in bilateral posterior inferior scalp/occipital region. No finding to explain patient's symptoms. Dictated by: Navarro Ceballos M.D. on 01/06/2025 at 19:46 Approved by: Navarro Ceballos M.D. on 01/06/2025 at 19:47
== END ==
PROVIDERS: PCP Student in an Organized Health Care Education/Training Program; Referring Provider Student in an Organized Health Care Education/Training Program; Visit Provider Student in an Organized Health Care Education/Training Program
DX: R22.1 Localized swelling, mass and lump, neck (principal)
CPT/HCPCS: 72040; 76536

== ENCOUNTER 2025-01-17 07:49 | Emergency (ER) | payer OTHER, SELFPAY ==
[2024-10-26 01:31] VITALS: BMI 30.7
[2025-01-17] VITALS (12 sets, daily range): BP systolic 117–155; BP diastolic 61–99; PULSE 67–113; RESP 16–18; TEMP 36.7; O2SAT 98–100; BMI 32.3
--- NOTE | 2025-01-17 08:18 | ED.ABDPAIN ---
HPI - Abdominal Pain General Chief Complaint: Abdominal Pain Stated Complaint: Lower left side pain Time Seen by Provider: 01/17/25 08:01 Source: patient Mode of arrival: Ambulatory History of Present Illness HPI narrative: Patient is a healthy 44-year-old female history of gastric sleeve presenting today with pretty significant left-sided back pain. It does radiate from her back to her front. Woke her up suddenly from her sleep yesterday morning. It has been off and on feeling nauseous. She was recently just treated for UTI. She was seen evaluated here on January [address] which did not show any nephrolithiasis, she had bacteria in her urine which grew Enterococcus faecalis she was treated with Levaquin. She finished her antibiotics. She is not having any sort of fever no prior history of kidney stones but appears quite uncomfortable. She can not take ibuprofen secondary to gastric sleeve Related Data Home Medications Medication Instructions Recorded Confirmed alprazolam 0.5 mg tablet 0.5 mg PO BID PRN Anxiety 05/06/23 12/30/24 metoclopramide HCl 5 mg tablet 5 mg PO QAC 07/24/24 12/30/24 (Reglan) clonazepam 0.5 mg tablet 0.5 mg PO BID 08/24/24 12/30/24 lumateperone 42 mg capsule 42 mg PO DAILY 10/26/24 12/30/24 (Caplyta) gabapentin 100 mg capsule 100 mg PO TID 11/21/24 12/30/24 lamotrigine 25 mg tablet mg PO 12/30/24 12/30/24 Previous Rx's Medication Instructions Recorded sumatriptan succinate 50 mg tablet 50 mg PO Q2-4H PRN migraine 04/28/24 headache #9 tabs ondansetron HCl 4 mg tablet 4 mg PO Q8H PRN nausea/vomiting 09/07/24 #30 tabs estradiol 0.5 mg tablet 0.5 mg PO DAILY #30 tabs 11/12/24 hydrocodone 5 mg-acetaminophen 325 1 tab PO Q6H PRN pain #12 tabs 01/17/25 mg tablet levofloxacin 750 mg tablet 750 mg PO DAILY 5 days #5 tabs 01/17/25 metronidazole 500 mg tablet 500 mg PO Q8H 10 days #30 tabs 01/17/25 Allergies Allergy/AdvReac Type Severity Reaction Status Date / Time vancomycin Allergy Intermediate ITCHING Verified 01/17/25 08:02 gluten Allergy Celiac Verified 01/17/25 08:02 coconut AdvReac Intermediate Hives Verified 01/17/25 08:02 NSAIDS (Non-Steroidal AdvReac Mild Gastrointestinal Verified 01/17/25 08:02 Anti-Inflamma Upset benzonatate AdvReac Unknown Hives Verified 01/17/25 08:02 [From Tessalon Perles] escitalopram [From Lexapro] AdvReac Unknown Hallucinati Verified 01/17/25 08:02 ng Patient History Medical History Left corneal abrasion Headache Polycystic ovary disease Celiac disease GERD with apnea Hypertension Bipolar disorder Surgical History Status post tubal ligation History of section H/O abdominoplasty H/O oophorectomy H/O gastric sleeve History of cholecystectomy History of appendectomy Social History marital status: household members: significant other and children lives independently: Yes occupational status: employed alcohol intake: never substance use type: marijuana alcohol intake frequency: holidays/special occasions only Exam Initial Vital Signs Initial Vital Signs: Vital Signs Pulse Rate 113 H 01/17/25 07:53 Pulse Oximetry 100 01/17/25 07:53 GENERAL: Alert 44-year-old female appears uncomfortable pacing in room HEENT: Head atraumatic,EOMI, pupils reactive, face symmetric, moist mucous membranes CARDIOVASCULAR: Regular rate and rhythm without murmurs, rubs or gallops. RESPIRATORY: Breath sounds equal bilaterally, no wheezes rales or rhonchi. ABDOMEN: Soft, left lower quadrant mild guarding, no right lower quadrant pain : Mild flank pain EXTREMITIES: Normal range of motion, no clubbing or edema. Neurovascularly intact NEUROLOGICAL: Alert and oriented x4.Normal gait and speech. Cranial nerves II through XII grossly intact. SKIN: Warm, dry, no laceration, no petechiae, no rashes or lesions. Course Orders Ordered: ED Orders 01/17/25 07:59 Ictotest Urine Stat Urine Culture Stat Urine Microscopic Stat 01/17/25 08:20 Complete Blood Count AUTO DIFF Stat Comprehensive Metabolic Panel Stat Lipase Stat 01/17/25 08:21 CT abdomen pelvis w con Stat Discontinued Medications Hydromorphone HCl (Hydromorphone 0.5 Mg Inj) 0.5 mg IV NOW ONE Stop: 01/17/25 09:59 Last Admin: 01/17/25 10:19 Dose: 0.5 mg Documented By: HOMERO Hydromorphone HCl (Hydromorphone 1 Mg Inj) 1 mg IV NOW ONE Stop: 01/17/25 11:26 Last Admin: 01/17/25 11:29 Dose: 1 mg Documented By: SHAYNA Acetaminophen (Ofirmev) 1,000 mg in 100 mls @ 400 mls/hr IV NOW ONE Stop: 01/17/25 08:35 Last Infusion: 01/17/25 09:02 Dose: Infused Documented By: Admin: 01/17/25 08:42 Dose: 400 mls/hr Documented By: HOMERO Ondansetron HCl (Ondansetron 4 Mg/2 Ml Inj) 4 mg IV NOW PRN PRN Reason: Nausea And Vomiting Ondansetron HCl (Ondansetron 4 Mg Odt) 4 mg PO NOW PRN PRN Reason: Nausea And Vomiting Ondansetron HCl (Ondansetron 4 Mg/2 Ml Inj) 4 mg IV NOW ONE Stop: 01/17/25 08:22 Last Admin: 01/17/25 08:42 Dose: 4 mg Documented By: HOMERO Vital Signs Vital signs: Vital Signs - 8 hr 01/17/25 08:43 01/17/25 08:44 01/17/25 08:44 Pulse Rate 87 83 Respiratory Rate Blood Pressure 137/91 H Pulse Oximetry 99 99 Oxygen Delivery Method 01/17/25 09:00 01/17/25 09:00 01/17/25 09:30 Pulse Rate 81 67 Respiratory Rate Blood Pressure 133/99 H Pulse Oximetry 98 99 Oxygen Delivery Method 01/17/25 09:31 01/17/25 09:31 01/17/25 10:00 Pulse Rate 75 Respiratory Rate Blood Pressure 117/75 128/61 Pulse Oximetry 99 Oxygen Delivery Method 01/17/25 10:00 01/17/25 10:30 01/17/25 10:30 Pulse Rate 73 68 Respiratory Rate Blood Pressure 132/95 H Pulse Oximetry 99 99 Oxygen Delivery Method 01/17/25 11:00 01/17/25 11:00 01/17/25 11:30 Pulse Rate 68 97 H Respiratory Rate 16 Blood Pressure 133/83 Pulse Oximetry 99 99 Oxygen Delivery Method Room Air 01/17/25 11:30 Pulse Rate Respiratory Rate Blood Pressure 155/74 H Pulse Oximetry Oxygen Delivery Method MDM - Abdominal Pain Lab Data 01/17/25 08:20 01/17/25 08:20 Labs: Lab Results 01/17/25 01/17/25 Range/Units 07:59 08:20 WBC 8.8 (4.5-11.0) X10^3/uL RBC 4.74 (4.0-5.2) X10^6/uL Hgb 12.1 (12.0-16.0) g/dL Hct 36.7 (36-46) % MCV 77.5 L (80-100) fL MCH 25.6 L (26-34) PG MCHC 33.0 (30-36) % RDW 16.9 H (11.6-14.8) % Plt Count 399 (150-400) X10^3/uL Neut % (Auto) 56.0 (50-75) % Lymph % (Auto) 33.3 (25-40) % Geary % (Auto) 8.5 (3-14) % Eos % (Auto) 1.4 L (2-4) % Baso % (Auto) 0.8 (0-2) % Neut # (Auto) 4900 (7176-6654) /uL Lymph # (Auto) 2900 (1158-9573) /uL Geary # (Auto) 700 (0-900) /uL Eos # (Auto) 100 (0-450) /uL Baso # (Auto) 100 (0-100) /uL Sodium 140 (137-145) mmol/L Potassium 3.8 (3.4-5.1) mmol/L Chloride 108 H (98-107) mmol/L Carbon Dioxide 22 (22-32) mmol/L BUN 11 (7-17) mg/dL Creatinine 0.52 (0.52-1.04) mg/dL Estimated GFR > 60 (>60) mL/min BUN/Creatinine Ratio 21.2 (6-22) Glucose 118 H (70-99) mg/dL Calcium 9.4 (8.4-10.2) mg/dL Total Bilirubin 1.4 H (0.2-1.3) mg/dL AST 23 (14-36) IU/L ALT 21 (<35) IU/L Alkaline Phosphatase 84 (38-126) U/L Total Protein 7.8 (6.3-8.2) g/dL Albumin 4.8 (3.5-5.0) g/dL Globulin 3.0 (1.7-4.1) g/dL Albumin/Globulin Ratio 1.6 (1.0-2.8) Lipase 343 H (23-300) U/L Ur Bilirubin Confirm Negative (Negative) Urine RBC 1-5/hpf (0-5/HPF) Urine WBC 1-5/hpf (0-5/HPF) Ur Squamous Epith Cells 10-30 /hpf H D (0-5/HPF) Urine Bacteria Many (>30) H (None) Urine Mucus 2+ H (Negative) Ur Culture Indicated? Specimen cultured Vol Urine Centrifuged 10ml (spun) Point of care testing: Urine Dip Bedside Urine Glucose Negative Bedside Urine Bilirubin + 1 Bedside Urine Ketone - Negative Urine Specific Zam[place] 1.030 Bedside Urine Occult Blood +/- Bedside Urine pH 6.0 Bedside Urine Protein +/- 15 Bedside Urine Urobilinogen - Negative Bedside Urine Nitrite - Negative Bedside Urine Leukocytes - Negative Esterase Imaging Data CT scan - abdomen/pelvis: Radiologist's Impression: PROCEDURE: CT ABDOMEN PELVIS W CON INDICATIONS: left flank pain TECHNIQUE: After the administration of intravenous contrast, axial sections acquired from the lung bases to the pubic symphysis. Coronal and sagittal reformats were performed. For radiation dose reduction, the following was used: automated exposure control, adjustment of mA and/or kV according to patient size. COMPARISON: [facility], CT, CT ABDOMEN PELVIS W CON, 01/06/2025, 2:31. FINDINGS: Image quality: Diagnostic. Lower Chest: No significant findings. ABDOMEN: Liver: No solid mass. Liver measures 18.9 cm with steatosis. Gallbladder: Removed. Biliary ducts: No biliary dilation. Pancreas: No ductal dilation. Spleen: Size is within normal limits. Partially calcified splenic cyst, unchanged. Adrenal Glands: No adrenal nodules. Kidneys and Ureters: No hydronephrosis. No solid mass. No complex renal cystic lesion which requires follow up. Stomach and Bowel: No obstruction. There is mild thickening of the distal descending/proximal sigmoid colon. No organized fluid collection. No free air. Diverticular present. In addition, there is mild thickening of the right colon extending to the transverse without significant inflammatory change. Peritoneum: No abnormal intraperitoneal fluid. No free air. Ventral Wall: No significant ventral hernia. Abdominal Nodes: No retroperitoneal or mesenteric adenopathy by size criteria. Vessels: Aorta and inferior vena cava are normal in size. PELVIS: Pelvic Organs: Unremarkable. Bladder: No bladder wall thickening, accounting for underdistention. Pelvic Nodes: No enlarged lymph nodes. Miscellaneous: No inguinal hernias are seen. Bones: No aggressive osseous abnormality. IMPRESSION: Left descending colitis secondary diverticulitis. No perforation. No abscess. Thickening of the right colon is also present without significant inflammatory change. Early colitis within this region cannot be excluded. Dictated by: Gisselle Hernandes M.D. on 01/17/2025 at 9:11 MDM Narrative Medical decision making narrative: Patient is a 44-year-old female presenting today with pretty significant left lower quadrant pain. She was seen evaluated here on January 06 where she had blood work and a CT done did not show any abnormality she was have a positive urine culture was discharged on cefdinir and then with cultures started on levofloxacin on January 13. Continues to have pain in the left lower quadrant Blood work has been reviewed No leukocytosis today WBCs 8.8 no anemia Chemistry panel is reassuring no electrolyte abnormality no ALEN Bilirubin 1.4 normal liver enzymes lipase 343 CT does show descending diverticulitis without complication At this time patient has been on Levaquin for a couple of days was previously on cefdinir reasonable just to add Flagyl and continue Levaquin for 10 days. We will send her home on pain medication as well. She did have pain relief with Dilaudid. Discharge Plan Departure Patient Disposition: Home Clinical Impression: Diverticulitis Instructions: DI for Diverticulitis Activity Restrictions/Additional Instructions: *You have been diagnosed with diverticulitis *What to do: At this time we will add more antibiotics and pain medication. Try a low-fiber diet for now may need to drink liquids only increase diet as tolerated *Continue to take medications as directed Levaquin 750 for 3 days (total of 10) Flagyl 500 mg 3 times a day for 10 days [place] 1 tablet every 4-6 hours if needed for severe pain *Follow up with your primary care provider in 2-3 days or call [phone] *Return to ER if you should have increasing pain bloody stools or any new, worsening or concerning symptoms CONTROLLED SUBSTANCE DISCHARGE (Narcotoic/benzodiazepine/Flexeril/Phenergan) 1. You have been prescribed narcotic medications, it does have acetaminophen/Tylenol/paracetamol in it, DO NOT TAKE MORE THAN 4,00mg in 24 hours of Tylenol. TRAMADOL DOES NOT CONTAIN TYLENOL 2. Please understand that we cannot provide further refills of narcotics, benzodiazepines or controlled substances through the ED and her pain management will need to be through your provider. 3. While on these medications you cannot drive or operate heavy machinery. 4. You cannot sign legal documents or perform any duties such as this. 5. As long as you're taking opiate pain medications he should also be taking a stool softener such as Colace, Dulcolax, MiraLAX or prune juice, to help avoid constipation. Prescriptions: New hydrocodone-acetaminophen 5-325 mg tablet 1 tab PO Q6H PRN (Reason: pain) Qty: 12 0RF metronidazole 500 mg tablet 500 mg PO Q8H 10 Days Qty: 30 0RF levofloxacin 750 mg tablet 750 mg PO DAILY 5 Days Qty: 5 0RF No Action clonazepam 0.5 mg tablet 0.5 mg PO BID gabapentin 100 mg capsule 100 mg PO TID lamotrigine 25 mg tablet PO ondansetron HCl 4 mg tablet 4 mg PO Q8H PRN (Reason: nausea/vomiting) Qty: 30 3RF estradiol 0.5 mg tablet 0.5 mg PO DAILY Qty: 30 3RF sumatriptan succinate 50 mg tablet 50 mg PO Q2-4H PRN (Reason: migraine headache) Qty: 9 0RF Rx Instructions: do not exceed 4 doses per 24 hrs metoclopramide HCl [Reglan] 5 mg Tablet 5 mg PO QAC Rx Instructions: administer 30 minutes before meals Caplyta 42 mg capsule 42 mg PO DAILY alprazolam 0.5 mg tablet 0.5 mg PO BID PRN (Reason: Anxiety) Referrals: Sarah Dunbar MD [Primary Care Provider] - Stand Alone Forms: Patient Portal/API/Survey
[2025-01-17 08:19] LABS: Ictotest Urine Negative (Negative); Urine Volume 10mL (spun)
--- NOTE | 2025-01-17 08:21 | DI.CT.S_ITS ---
PROCEDURE: CT ABDOMEN PELVIS W CON INDICATIONS: left flank pain TECHNIQUE: After the administration of intravenous contrast, axial sections acquired from the lung bases to the pubic symphysis. Coronal and sagittal reformats were performed. For radiation dose reduction, the following was used: automated exposure control, adjustment of mA and/or kV according to patient size. COMPARISON: [facility], CT, CT ABDOMEN PELVIS W CON, 01/06/2025, 2:31. FINDINGS: Image quality: Diagnostic. Lower Chest: No significant findings. ABDOMEN: Liver: No solid mass. Liver measures 18.9 cm with steatosis. Gallbladder: Removed. Biliary ducts: No biliary dilation. Pancreas: No ductal dilation. Spleen: Size is within normal limits. Partially calcified splenic cyst, unchanged. Adrenal Glands: No adrenal nodules. Kidneys and Ureters: No hydronephrosis. No solid mass. No complex renal cystic lesion which requires follow up. Stomach and Bowel: No obstruction. There is mild thickening of the distal descending/proximal sigmoid colon. No organized fluid collection. No free air. Diverticular present. In addition, there is mild thickening of the right colon extending to the transverse without significant inflammatory change. Peritoneum: No abnormal intraperitoneal fluid. No free air. Ventral Wall: No significant ventral hernia. Abdominal Nodes: No retroperitoneal or mesenteric adenopathy by size criteria. Vessels: Aorta and inferior vena cava are normal in size. PELVIS: Pelvic Organs: Unremarkable. Bladder: No bladder wall thickening, accounting for underdistention. Pelvic Nodes: No enlarged lymph nodes. Miscellaneous: No inguinal hernias are seen. Bones: No aggressive osseous abnormality. IMPRESSION: Left descending colitis secondary diverticulitis. No perforation. No abscess. Thickening of the right colon is also present without significant inflammatory change. Early colitis within this region cannot be excluded. Dictated by: Gisselle Hernandes M.D. on 01/17/2025 at 9:11 Approved by: Gisselle Hernandes M.D. on 01/17/2025 at 9:14
[2025-01-17 08:23] LABS: Bacteria Urine Many (>30); Culture Indicated Urine Specimen Cultured; Mucus Urine 2+ (Negative); RBC Urine 1-5/HPF (0-5/HPF); Squamous Epithelial Cell Urine 10-30 /HPF (0-5/HPF); WBC Urine 1-5/HPF (0-5/HPF)
[2025-01-17 08:36] LABS: Add Manual Diff / Slide Review NO; Basophils Absolute Auto 100 /uL (0-100); Basophils Percent Auto 0.8 % (0-2); Eosinophils Absolute Auto 100 /uL (0-450); Eosinophils Percent Auto 1.4 % (2-4); Hematocrit 36.7 % (36-46); Hemoglobin 12.1 g/dL (12.0-16.0); Lymphocytes Absolute Auto 2900 /uL (1100-4500); Lymphocytes Percent Auto 33.3 % (25-40); Mean Corpuscular Hemoglobin 25.6 PG (26-34); Mean Corpuscular Volume 77.5 fL (80-100); Monocytes Absolute Auto 700 /uL (0-900); Monocytes Percent Auto 8.5 % (3-14); Neutrophils Absolute Auto 4900 /uL (1500-7000); Platelet Count 399 X10^3/uL (150-400); Red Blood Cell Count 4.74 X10^6/uL (4.0-5.2); Red Cell Distribution Width 16.9 % (11.6-14.8); White Blood Cell Count 8.8 X10^3/uL (4.5-11.0)
[2025-01-17] MEDS: ACETAMINOPHEN IV 1,000 MG/100 ML VIAL 400 MG IV (08:42)
[2025-01-17] MEDS: ONDANSETRON 4 MG/2 ML INJ IV (08:42)
[2025-01-17 08:52] LABS: Alanine Aminotransferase 21 IU/L (<35); Albumin 4.8 g/dL (3.5-5.0); Albumin Globulin Ratio 1.6 (1.0-2.8); Alkaline Phosphatase 84 U/L (38-126); Aspartate Aminotransferase 23 IU/L (14-36); BUN Creatinine Ratio 21.2 (6-22); Bilirubin Total 1.4 mg/dL (0.2-1.3); Blood Urea Nitrogen 11 mg/dL (7-17); Calcium 9.4 mg/dL (8.4-10.2); Carbon Dioxide 22 mmol/L (22-32); Chloride 108 mmol/L (98-107); Estimated Glomerular Filt Rate > 60 mL/min (>60); Glucose 118 mg/dL (70-99); HEMOLYSIS < 15 (0-50); Lipase 343 U/L (23-300); Potassium 3.8 mmol/L (3.4-5.1); Sodium 140 mmol/L (137-145); Total Protein 7.8 g/dL (6.3-8.2)
[2025-01-17] MEDS: HYDROMORPHONE 0.5 MG INJ IV (10:19)
[2025-01-17] MEDS: HYDROMORPHONE 1 MG INJ IV (11:29)
== END 2025-01-17 11:44 | disposition home or self-care (01) ==
PROVIDERS: Emergency Provider Emergency Medicine; PCP Student in an Organized Health Care Education/Training Program
DX: K57.92 Diverticulitis of intestine, part unspecified, without perforation or abscess without bleeding (principal); R11.10 Vomiting, unspecified; R10.9 Unspecified abdominal pain
CPT/HCPCS: 36415; 74177; 80053; 81003; 81015; 83690; 85025; 87086; 99284; J0131; J1171; J2405; Q9967

== ENCOUNTER 2025-01-20 07:59 | Inpatient (IN) | payer MEDICARE, OTHER, SELFPAY ==
[2024-10-26 01:31] VITALS: BMI 30.7
[2025-01-20] VITALS (11 sets, daily range): BP systolic 112–165; BP diastolic 72–100; PULSE 54–97; RESP 16–22; TEMP 36.6–36.9; O2SAT 98–100; BMI 32.3
--- NOTE | 2025-01-20 08:14 | ED_ITS ---
HPI - Abdominal Pain General Chief Complaint: Abdominal Pain Stated Complaint: Diverticulitis, Flare up not better Time Seen by Provider: 01/20/25 08:08 Source: patient Mode of arrival: Ambulatory History of Present Illness HPI narrative: Patient returns for worsening left lower quadrant pain. Patient seen here 3 days ago for the same. Being treated for diverticulitis. On Levaquin and Flagyl. Has nonbloody vomiting and diarrhea. Can not take home medications. She does agree for admission today. Patient has had multiple visits here this month for abdominal pain and vomiting. Related Data Home Medications Medication Instructions Recorded Confirmed metoclopramide HCl 5 mg tablet 5 mg PO QAC 07/24/24 01/20/25 (Reglan) clonazepam 0.5 mg tablet 0.5 mg PO BID 08/24/24 01/20/25 lamotrigine 25 mg tablet 25 mg PO DAILY 01/20/25 01/20/25 Previous Rx's Medication Instructions Recorded estradiol 0.5 mg tablet 0.5 mg PO DAILY #30 tabs 11/12/24 levofloxacin 750 mg tablet 750 mg PO DAILY 5 days #5 tabs 01/17/25 metronidazole 500 mg tablet 500 mg PO Q8H 10 days #30 tabs 01/17/25 ondansetron HCl 4 mg tablet 4 mg PO Q8H PRN nausea/vomiting 01/19/25 #30 tabs Allergies Allergy/AdvReac Type Severity Reaction Status Date / Time vancomycin Allergy Intermediate ITCHING Verified 01/17/25 08:02 gluten Allergy Celiac Verified 01/17/25 08:02 coconut AdvReac Intermediate Hives Verified 01/17/25 08:02 NSAIDS (Non-Steroidal AdvReac Mild Gastrointestinal Verified 01/17/25 08:02 Anti-Inflamma Upset benzonatate AdvReac Unknown Hives Verified 01/17/25 08:02 [From Tessalon Perles] escitalopram [From Lexapro] AdvReac Unknown Hallucinati Verified 01/17/25 08:02 ng Review of Systems Review of Systems Narrative: GENERAL: Negative chills, fatigue, malaise, fever, sweats. HEENT: Negative sinus pain, ear pain, sore throat RESPIRATORY: Negative dyspnea, cough CARDIOVASCULAR: Negative chest pain, palpitations GASTROINTESTINAL: Positive diarrhea and vomiting, nausea, abdominal pain : Negative dysuria, frequency, hematuria MUSCULOSKELETAL: Negative muscle or bony pain SKIN: Negative rash, skin lesions NEUROLOGIC: Negative weakness, numbness ROS Unobtainable: All systems reviewed & are unremarkable except as noted in HPI and below Patient History Medical History Left corneal abrasion Headache Polycystic ovary disease Celiac disease GERD with apnea Hypertension Bipolar disorder Surgical History Status post tubal ligation History of section H/O abdominoplasty H/O oophorectomy H/O gastric sleeve History of cholecystectomy History of appendectomy Social History marital status: household members: significant other and children lives independently: Yes occupational status: employed Smoking Status: Never smoker alcohol intake: current substance use type: marijuana Smoking Status: Never smoker alcohol intake frequency: holidays/special occasions only Exam Narrative Exam Narrative: GENERAL: in no distress, not toxic not dyspneic HEAD: Normocephalic. EYES: Pupils equal round ENT: Mucous membranes moist. NECK: Trachea midline. CARDIOVASCULAR: Regular rate and rhythm RESPIRATORY: Clear to auscultation. Breath sounds equal bilaterally. No wheezes, rales, or rhonchi. GASTROINTESTINAL: Abdomen soft, reproducible left lower quadrant tenderness, no peritoneal signs no guarding or rebound. Bowel sounds are present. EXTREMITIES: No gross deformities. BACK: No flank tenderness. NEURO: AOx4. Clear speech SKIN: Warm and dry PSYCH: Not anxious, is cooperative Initial Vital Signs Initial Vital Signs: Vital Signs Pulse Oximetry 100 01/20/25 08:03 Oxygen Delivery Method Room Air 01/20/25 08:03 Course Orders Ordered: Acetaminophen (Acetaminophen 325 Mg Tablet) 650 mg PO Q6H PRN PRN Reason: Fever/Mild Pain (1-3) Last Admin: 01/25/25 07:49 Dose: 650 mg Documented By: Admin: 01/23/25 03:19 Dose: 650 mg Documented By: Admin: 01/22/25 17:09 Dose: 650 mg Documented By: Admin: 01/22/25 09:26 Dose: 650 mg Documented By: Admin: 01/21/25 18:56 Dose: 650 mg Documented By: Admin: 01/20/25 18:15 Dose: 650 mg Documented By: AG Hydrocodone Bitart/Acetaminophen (Hydrocodone/Acet 5/325 Tablet) 1 tab PO Q6H PRN PRN Reason: pain Alprazolam (Alprazolam 0.25 Mg Tablet) 0.5 mg PO BID PRN PRN Reason: Anxiety Last Admin: 01/23/25 20:05 Dose: 0.5 mg Documented By: Admin: 01/23/25 03:19 Dose: 0.5 mg Documented By: MACIE Clonazepam (Clonazepam 0.5 Mg Tablet) 0.5 mg PO BID [facility] Last Admin: 01/25/25 09:11 Dose: 0.5 mg Documented By: Admin: 01/24/25 20:41 Dose: 0.5 mg Documented By: Admin: 01/24/25 08:00 Dose: 0.5 mg Documented By: Admin: 01/23/25 20:05 Dose: 0.5 mg Documented By: Admin: 01/23/25 08:22 Dose: Not Given Documented By: Admin: 01/22/25 20:34 Dose: 0.5 mg Documented By: Admin: 01/22/25 09:20 Dose: 0.5 mg Documented By: Admin: 01/21/25 20:24 Dose: Not Given Documented By: Admin: 01/21/25 08:23 Dose: 0.5 mg Documented By: Admin: 01/20/25 22:33 Dose: Not Given Documented By: AM Diphenoxylate HCl/Atropine (Diphenoxylate/Atrop 2.5/0.025 Tablet) 1 each PO QID PRN PRN Reason: Diarrhea Estradiol (Estradiol 1 Mg Tablet) 0.5 mg PO DAILY [facility] Last Admin: 01/25/25 09:10 Dose: 0.5 mg Documented By: Admin: 01/24/25 08:00 Dose: 0.5 mg Documented By: Admin: 01/23/25 08:19 Dose: 0.5 mg Documented By: Admin: 01/22/25 09:20 Dose: 0.5 mg Documented By: Admin: 01/21/25 08:23 Dose: 0.5 mg Documented By: MALINI Gabapentin (Gabapentin 100 Mg Capsule) 100 mg PO QID [facility] Last Admin: 01/25/25 09:10 Dose: 100 mg Documented By: Admin: 01/24/25 20:41 Dose: 100 mg Documented By: Admin: 01/24/25 16:57 Dose: 100 mg Documented By: Admin: 01/24/25 13:46 Dose: 100 mg Documented By: Admin: 01/24/25 08:00 Dose: 100 mg Documented By: Admin: 01/23/25 20:05 Dose: 100 mg Documented By: Admin: 01/23/25 16:23 Dose: 100 mg Documented By: Admin: 01/23/25 12:08 Dose: 100 mg Documented By: Admin: 01/23/25 08:19 Dose: 100 mg Documented By: Admin: 01/22/25 20:34 Dose: 100 mg Documented By: Admin: 01/22/25 17:09 Dose: 100 mg Documented By: Admin: 01/22/25 12:04 Dose: 100 mg Documented By: Admin: 01/22/25 09:20 Dose: 100 mg Documented By: Admin: 01/21/25 20:23 Dose: 100 mg Documented By: Admin: 01/21/25 17:23 Dose: 100 mg Documented By: Admin: 01/21/25 13:46 Dose: 100 mg Documented By: Admin: 01/21/25 08:23 Dose: 100 mg Documented By: Admin: 01/20/25 21:49 Dose: 100 mg Documented By: Admin: 01/20/25 17:32 Dose: 100 mg Documented By: Admin: 01/20/25 12:01 Dose: 100 mg Documented By: BT Hydromorphone HCl (Hydromorphone 1 Mg Inj) 1 mg IV Q3H PRN PRN Reason: Pain, Severe (7-10) Last Admin: 01/25/25 07:00 Dose: 1 mg Documented By: Admin: 01/24/25 20:40 Dose: 1 mg Documented By: Admin: 01/24/25 16:57 Dose: 1 mg Documented By: Admin: 01/24/25 12:03 Dose: 1 mg Documented By: Admin: 01/24/25 07:59 Dose: 1 mg Documented By: Admin: 01/24/25 04:39 Dose: 1 mg Documented By: Admin: 01/24/25 00:08 Dose: 1 mg Documented By: Admin: 01/23/25 20:11 Dose: 1 mg Documented By: Admin: 01/23/25 17:07 Dose: 1 mg Documented By: Admin: 01/23/25 12:34 Dose: 1 mg Documented By: Admin: 01/23/25 08:26 Dose: 1 mg Documented By: Admin: 01/23/25 02:45 Dose: 1 mg Documented By: Admin: 01/22/25 20:35 Dose: 1 mg Documented By: Admin: 01/22/25 13:39 Dose: 1 mg Documented By: MALINI Hydromorphone HCl (Hydromorphone 0.5 Mg Inj) 1 mg IV NOW PRN PRN Reason: pain Last Admin: 01/24/25 19:52 Dose: 1 mg Documented By: KAUSHIK Dextrose/Sodium Chloride (Dextrose 5%-0.9% Ns) 1,000 mls @ 100 mls/hr IV CONT [facility] Last Admin: 01/23/25 12:23 Dose: 100 mls/hr Documented By: Infusion: 01/21/25 18:22 Dose: Infused Documented By: Admin: 01/21/25 08:22 Dose: 100 mls/hr Documented By: Infusion: 01/21/25 07:32 Dose: Infused Documented By: Admin: 01/20/25 21:32 Dose: 100 mls/hr Documented By: Infusion: 01/20/25 21:17 Dose: Infused Documented By: Admin: 01/20/25 11:17 Dose: 100 mls/hr Documented By: ESV Metronidazole (Flagyl) 500 mg in 100 mls @ 100 mls/hr IV Q6H [facility] Last Admin: 01/25/25 09:11 Dose: 100 mls/hr Documented By: Infusion: 01/25/25 05:48 Dose: Infused Documented By: Admin: 01/25/25 03:01 Dose: 100 mls/hr Documented By: Infusion: 01/24/25 21:41 Dose: Infused Documented By: Admin: 01/24/25 20:41 Dose: 100 mls/hr Documented By: Infusion: 01/24/25 15:39 Dose: Infused Documented By: Admin: 01/24/25 13:55 Dose: 100 mls/hr Documented By: TLS Ciprofloxacin (Cipro) 400 mg in 200 mls @ 200 mls/hr IV Q12H [facility] Last Infusion: 01/25/25 09:12 Dose: Infused Documented By: Admin: 01/25/25 05:49 Dose: 200 mls/hr Documented By: Infusion: 01/24/25 21:50 Dose: Infused Documented By: Admin: 01/24/25 18:40 Dose: 200 mls/hr Documented By: SANDER Lactobacillus Acidophilus (Lactobacillus Acidophilus Tablet) 1 each PO TIDWM [facility] Last Admin: 01/25/25 07:49 Dose: 1 each Documented By: Admin: 01/24/25 16:57 Dose: 1 each Documented By: SANDER Lamotrigine (Lamotrigine 100 Mg Tablet) 25 mg PO DAILY [facility] Last Admin: 01/25/25 09:11 Dose: 25 mg Documented By: Admin: 01/24/25 08:00 Dose: 25 mg Documented By: Admin: 01/23/25 08:19 Dose: 25 mg Documented By: Admin: 01/22/25 09:20 Dose: 25 mg Documented By: Admin: 01/21/25 08:23 Dose: 25 mg Documented By: MALINI Lorazepam (Lorazepam 1 Mg Tablet) 1 mg PO Q6HR PRN PRN Reason: Anxiety Metoclopramide HCl (Metoclopramide 10 Mg/2 Ml Inj) 10 mg IV Q6HR PRN PRN Reason: Nausea And Vomiting Naloxone HCl (Naloxone 0.4 Mg/Ml Vial) 0.2 mg IV Q2MIN PRN PRN Reason: Opiate Reversal Nf - Lumateperone ( Caplyta) 42 Mg Capsule 42 mg PO DAILY [facility] Last Admin: 01/25/25 09:11 Dose: Not Given Documented By: Admin: 01/24/25 08:01 Dose: Not Given Documented By: Admin: 01/23/25 08:20 Dose: Not Given Documented By: Admin: 01/22/25 09:18 Dose: Not Given Documented By: Admin: 01/21/25 08:23 Dose: Not Given Documented By: MALINI Ondansetron HCl (Ondansetron 4 Mg Odt) 4 mg PO Q8H PRN PRN Reason: nausea/vomiting Last Admin: 01/24/25 18:40 Dose: 4 mg Documented By: Admin: 01/24/25 04:39 Dose: 4 mg Documented By: Admin: 01/23/25 20:05 Dose: 4 mg Documented By: Admin: 01/22/25 20:40 Dose: 4 mg Documented By: Admin: 01/22/25 13:39 Dose: 4 mg Documented By: Admin: 01/22/25 00:26 Dose: 4 mg Documented By: Admin: 01/20/25 19:27 Dose: 4 mg Documented By: SAMREEN Ondansetron HCl (Ondansetron 4 Mg Odt) 4 mg SL Q4HR PRN PRN Reason: Nausea Oxycodone HCl (Oxycodone Ir 5 Mg Tablet) 5 mg PO Q3H PRN PRN Reason: Pain, Moderate (4-6) Last Admin: 01/25/25 07:49 Dose: 5 mg Documented By: Admin: 01/24/25 23:33 Dose: 5 mg Documented By: Admin: 01/24/25 19:14 Dose: 5 mg Documented By: Admin: 01/24/25 15:39 Dose: 5 mg Documented By: Admin: 01/24/25 10:35 Dose: 5 mg Documented By: Admin: 01/24/25 05:48 Dose: 5 mg Documented By: Admin: 01/23/25 19:28 Dose: 5 mg Documented By: Admin: 01/23/25 16:21 Dose: 5 mg Documented By: Admin: 01/23/25 10:40 Dose: 5 mg Documented By: Admin: 01/23/25 06:06 Dose: 5 mg Documented By: Admin: 01/23/25 03:19 Dose: 5 mg Documented By: Admin: 01/22/25 17:09 Dose: 5 mg Documented By: Admin: 01/22/25 09:26 Dose: 5 mg Documented By: Admin: 01/22/25 06:40 Dose: 5 mg Documented By: Admin: 01/22/25 02:03 Dose: 5 mg Documented By: Admin: 01/21/25 18:56 Dose: 5 mg Documented By: Admin: 01/21/25 13:46 Dose: 5 mg Documented By: Admin: 01/21/25 08:27 Dose: 5 mg Documented By: Admin: 01/20/25 18:16 Dose: 5 mg Documented By: Admin: 01/20/25 15:12 Dose: 5 mg Documented By: Admin: 01/20/25 11:08 Dose: 5 mg Documented By: LATISHA Sodium Chloride (Sodium Chloride 0.9% Flush) 10 ml IV PRN PRN PRN Reason: Flush Sodium Chloride (Sodium Chloride 0.9% Flush) 10 ml IV BID [facility] Last Admin: 01/25/25 09:11 Dose: 10 ml Documented By: Admin: 01/24/25 21:11 Dose: Not Given Documented By: Admin: 01/24/25 08:01 Dose: 10 ml Documented By: SANDER Sumatriptan Succinate (Sumatriptan 25 Mg Tablet) 50 mg PO Q2H PRN PRN Reason: migraine headache Discontinued Medications Hydromorphone HCl (Hydromorphone 1 Mg Inj) 1 mg IV NOW ONE Stop: 01/20/25 08:16 Last Admin: 01/20/25 08:33 Dose: 1 mg Documented By: MAN Hydromorphone HCl (Hydromorphone 0.5 Mg Inj) 0.5 mg IV Q2H PRN PRN Reason: Pain, Severe (7-10) Last Admin: 01/20/25 21:49 Dose: 0.5 mg Documented By: Admin: 01/20/25 19:24 Dose: 0.5 mg Documented By: Admin: 01/20/25 13:46 Dose: 0.5 mg Documented By: Admin: 01/20/25 10:40 Dose: 0.5 mg Documented By: LATISHA Hydromorphone HCl (Hydromorphone 0.5 Mg Inj) 1 mg IV Q2H PRN PRN Reason: Pain, Severe (7-10) Last Admin: 01/22/25 07:51 Dose: 1 mg Documented By: Admin: 01/22/25 00:15 Dose: 1 mg Documented By: Admin: 01/21/25 20:23 Dose: 1 mg Documented By: Admin: 01/21/25 17:23 Dose: 1 mg Documented By: Admin: 01/21/25 11:52 Dose: 1 mg Documented By: Admin: 01/21/25 06:12 Dose: 1 mg Documented By: Admin: 01/21/25 00:04 Dose: 1 mg Documented By: MERISSA Sodium Chloride (Normal Saline 0.9%) 1,000 mls @ 1,000 mls/hr IV BOLUS ONE Stop: 01/20/25 09:14 Last Infusion: 01/20/25 10:00 Dose: Infused Documented By: Admin: 01/20/25 08:39 Dose: 1,000 mls/hr Documented By: MAN Piperacillin Sod/Tazobactam (Sod 4.5 gm/ Sodium Chloride) 100 mls @ 200 mls/hr IV NOW ONE Stop: 01/20/25 09:46 Last Infusion: 01/20/25 10:18 Dose: 0 mls/hr Documented By: Admin: 01/20/25 10:18 Dose: 200 mls/hr Documented By: MAN Piperacillin Sod/Tazobactam (Sod 3.375 gm/ Sodium Chloride) 100 mls @ 25 mls/hr IV Q8H [facility] Last Admin: 01/23/25 02:24 Dose: 25 mls/hr Documented By: Infusion: 01/22/25 21:10 Dose: Infused Documented By: Admin: 01/22/25 17:10 Dose: 25 mls/hr Documented By: Infusion: 01/22/25 13:20 Dose: Infused Documented By: Admin: 01/22/25 09:20 Dose: 25 mls/hr Documented By: Infusion: 01/22/25 06:15 Dose: Infused Documented By: Admin: 01/22/25 02:03 Dose: 25 mls/hr Documented By: Infusion: 01/22/25 01:32 Dose: Infused Documented By: Admin: 01/21/25 18:52 Dose: 25 mls/hr Documented By: Infusion: 01/21/25 15:52 Dose: Infused Documented By: Admin: 01/21/25 11:52 Dose: 25 mls/hr Documented By: Infusion: 01/21/25 06:26 Dose: Infused Documented By: Admin: 01/21/25 02:26 Dose: 25 mls/hr Documented By: Infusion: 01/20/25 21:34 Dose: Infused Documented By: Admin: 01/20/25 17:34 Dose: 25 mls/hr Documented By: AG Piperacillin Sod/Tazobactam (Sod 3.375 gm/ Sodium Chloride) 100 mls @ 25 mls/hr IV Q8H [facility] Last Admin: 01/23/25 14:31 Dose: 25 mls/hr Documented By: ESPINOZA Piperacillin Sod/Tazobactam (Sod 3.375 gm/ Sodium Chloride) 100 mls @ 25 mls/hr IV Q8H [facility] Last Infusion: 01/24/25 07:35 Dose: Infused Documented By: Admin: 01/24/25 00:58 Dose: 25 mls/hr Documented By: Metronidazole (Flagyl) 500 mg in 100 mls @ 100 mls/hr IV NOW ONE Stop: 01/24/25 08:43 Last Admin: 01/24/25 08:49 Dose: 100 mls/hr Documented By: ANGEL Metoclopramide HCl (Metoclopramide Hcl 5 Mg Tablet) 5 mg PO AC [facility] Last Admin: 01/24/25 11:41 Dose: 5 mg Documented By: Admin: 01/24/25 07:36 Dose: 5 mg Documented By: Admin: 01/23/25 16:23 Dose: 5 mg Documented By: Admin: 01/23/25 12:08 Dose: 5 mg Documented By: Admin: 01/23/25 08:19 Dose: 5 mg Documented By: Admin: 01/22/25 17:09 Dose: 5 mg Documented By: Admin: 01/22/25 12:04 Dose: 5 mg Documented By: Admin: 01/22/25 07:50 Dose: 5 mg Documented By: Admin: 01/21/25 17:23 Dose: 5 mg Documented By: Admin: 01/21/25 13:46 Dose: 5 mg Documented By: Admin: 01/21/25 08:22 Dose: 5 mg Documented By: Admin: 01/20/25 17:36 Dose: 5 mg Documented By: Admin: 01/20/25 12:00 Dose: 5 mg Documented By: SAMREEN Ondansetron HCl (Ondansetron 4 Mg/2 Ml Inj) 4 mg IV NOW ONE Stop: 01/20/25 08:16 Last Admin: 01/20/25 08:33 Dose: 4 mg Documented By: KB Vital Signs Vital signs: Vital Signs - 8 hr 01/20/25 08:03 01/20/25 08:04 01/20/25 08:04 Temperature Pulse Rate 96 H Respiratory Rate Blood Pressure 165/76 H Pulse Oximetry 100 100 Oxygen Delivery Method Room Air Room Air 01/20/25 08:06 01/20/25 08:38 01/20/25 08:39 Temperature 98.1 F Pulse Rate 97 H Respiratory Rate 22 Blood Pressure 165/76 H 148/73 H Pulse Oximetry 100 100 Oxygen Delivery Method Room Air 01/20/25 08:39 Temperature Pulse Rate 73 Respiratory Rate 18 Blood Pressure Pulse Oximetry 98 Oxygen Delivery Method Room Air MDM - Abdominal Pain Lab Data 01/20/25 08:25 01/20/25 08:25 Labs: Lab Results 01/20/25 01/20/25 Range/Units 08:25 09:14 WBC 6.6 (4.5-11.0) X10^3/uL RBC 4.51 (4.0-5.2) X10^6/uL Hgb 11.8 L (12.0-16.0) g/dL Hct 35.0 L (36-46) % MCV 77.5 L (80-100) fL MCH 26.1 (26-34) PG MCHC 33.7 (30-36) % RDW 17.6 H (11.6-14.8) % Plt Count 370 (150-400) X10^3/uL Neut % (Auto) 46.6 L (50-75) % Lymph % (Auto) 41.2 H (25-40) % [place] % (Auto) 9.0 (3-14) % Eos % (Auto) 2.5 (2-4) % Baso % (Auto) 0.7 (0-2) % Neut # (Auto) 3100 (4218-7020) /uL Lymph # (Auto) 2700 (5567-3760) /uL [place] # (Auto) 600 (0-900) /uL Eos # (Auto) 200 (0-450) /uL Baso # (Auto) 0 (0-100) /uL Sodium 139 (137-145) mmol/L Potassium 4.1 (3.4-5.1) mmol/L Chloride 106 (98-107) mmol/L Carbon Dioxide 23 (22-32) mmol/L BUN 12 (7-17) mg/dL Creatinine 0.56 (0.52-1.04) mg/dL Estimated GFR > 60 (>60) mL/min BUN/Creatinine Ratio 21.4 (6-22) Glucose 107 H (70-99) mg/dL Lactate 1.5 (0.7-2.1) mmol/L Calcium 9.3 (8.4-10.2) mg/dL Total Bilirubin 1.1 (0.2-1.3) mg/dL AST 27 (14-36) IU/L ALT 24 (<35) IU/L Alkaline Phosphatase 75 (38-126) U/L Total Protein 7.3 (6.3-8.2) g/dL Albumin 4.7 (3.5-5.0) g/dL Globulin 2.6 (1.7-4.1) g/dL Albumin/Globulin Ratio 1.8 (1.0-2.8) Lipase 102 D (23-300) U/L Procalcitonin 0.032 (<0.5) ng/mL Serum , Qual Negative (Negative) Urine Color Yellow Urine Appearance Clear Urine pH 7.0 (4.5-8.0) Ur Specific [place] <=1.005 (1.000-1.035) Urine Protein Negative (Negative) Urine Glucose (UA) Negative (Negative) g/dL Urine Ketones Negative (NEGATIVE) Urine Occult Blood Negative (Negative) Urine Nitrate Negative (Negative) Urine Bilirubin Negative (NEGATIVE) Urine Urobilinogen 0.2 (0.2) E.U./dL Ur Leukocyte Esterase Negative (NEGATIVE) Urine RBC 0-1/hpf (0-5/HPF) Urine WBC 0-1/hpf (0-5/HPF) Ur Squamous Epith Cells 5-10 /hpf H (0-5/HPF) Urine Bacteria Few (2-10) H (None) Ur Culture Indicated? Cult not indicated Vol Urine Centrifuged 10ml (spun) Imaging Data CT scan - abdomen/pelvis: Radiologist's Impression: [address] [address] [address] Scan Report Signed Patient: Janet Escobar MR#: [id number] : 1980 Acct:[id number] Age/Sex: 44 / F Date of Service: 01/20/25 Loc: ED Accession Number: [id number] Procedure: CT abdomen pelvis w con Ordering Provider: Nash Desir MD PROCEDURE: CT ABDOMEN PELVIS W CON INDICATIONS: IV contrast only/worsening left lower quadrant pain TECHNIQUE: After the administration of intravenous contrast, axial sections acquired from the lung bases to the pubic symphysis. Coronal and sagittal reformats were performed. For radiation dose reduction, the following was used: automated exposure control, adjustment of mA and/or kV according to patient size. COMPARISON: [facility], CT, CT ABDOMEN PELVIS W CON, 01/17/2025, 8:30. FINDINGS: Image quality: Diagnostic. Lower Chest: No significant findings. ABDOMEN: Liver: Steatosis. Gallbladder: Removed. Biliary ducts: No biliary dilation. Pancreas: No ductal dilation. Spleen: Unchanged partially calcified cyst. Adrenal Glands: No adrenal nodules. Kidneys and Ureters: No hydronephrosis. No solid mass. No complex renal cystic lesion which requires follow up. Stomach and Bowel: Previously identified inflammatory change within a focal loop of the distal descending/proximal sigmoid colon remains present although slightly less prominent. No organized fluid collection. No perforation. Colonic diverticula are present. Mild thickened appearance in the right colon is unchanged. Peritoneum: No abnormal intraperitoneal fluid. No free air. Ventral Wall: No significant ventral hernia. Abdominal Nodes: No retroperitoneal or mesenteric adenopathy by size criteria. Vessels: Aorta and inferior vena cava are normal in size. PELVIS: Pelvic Organs: Unremarkable. Bladder: No bladder wall thickening, accounting for underdistention. Pelvic Nodes: No enlarged lymph nodes. Miscellaneous: No inguinal hernias are seen. Bones: No aggressive osseous abnormality. IMPRESSION: Persistent although slightly improved appearance of previous focus of colitis secondary to diverticulitis in the descending/sigmoid colon. Mildly thickened appearance of the right colon is unchanged. Dictated by: Gisselle Hernandes M.D. on 01/20/2025 at 9:23 Approved by: Gisselle Hernandes M.D. on 01/20/2025 at 9:33 MDM Narrative Medical decision making narrative: Patient returns for worsening left lower quadrant pain. Patient seen here 3 days ago for the same. Being treated for diverticulitis. On Levaquin and Flagyl. Has nonbloody vomiting and diarrhea. Can not take home medications. She does agree for admission today. Patient has had multiple visits here this month for abdominal pain and vomiting. After history and exam, CBC CMP procalcitonin lactic acid lipase CT abdomen pelvis Dilaudid Zofran normal saline, likely admit MDM Medical records reviewed: ER visit here January 17, [address] imaging Differential considered: Includes but not limited to diverticular abscess diverticulitis bowel perforation Lab Test results independently reviewed as above. Pertinent findings: WBC 6.6 hemoglobin 11.8 sodium 139 potassium 4.1 lactic acid 1.5 negative Imaging studies independently reviewed: CT abdomen pelvis persistent diverticulitis Consultations: 9:45 a.m. spoke with hospitalist, dr lyn, will admit Re-evaluations: 9:50 a.m.. Pain is controlled. Reviewed with patient results and she does agree for admission. Would like patient to be started on Zosyn Discussion: Appropriate for admission for failed outpatient therapy with antibiotics for diverticulitis. Needs pain control as well. Diagnosis: Diverticulitis intractable abdominal pain Discharge Plan Departure Patient Disposition: Admitted as Observation Clinical Impression: Intractable abdominal pain, Diverticulitis Admit Date/Time: 01/20/25 09:46 Admit Provider: Jose Luis Mancini
--- NOTE | 2025-01-20 08:20 | PC.NURSE ---
Blood Cx drawn x 1; no Louie; R IVAN
[2025-01-20] MEDS: ONDANSETRON 4 MG/2 ML INJ IV (08:33)
[2025-01-20] MEDS: HYDROMORPHONE 1 MG INJ IV (08:33)
[2025-01-20] MEDS: SODIUM CHLORIDE 0.9% 1,000 ML 1000 ML IV (08:39)
[2025-01-20 08:52] LABS: Add Manual Diff / Slide Review NO; Basophils Absolute Auto 0 /uL (0-100); Basophils Percent Auto 0.7 % (0-2); Eosinophils Absolute Auto 200 /uL (0-450); Eosinophils Percent Auto 2.5 % (2-4); Hemoglobin 11.8 g/dL (12.0-16.0); Lymphocytes Absolute Auto 2700 /uL (1100-4500); Lymphocytes Percent Auto 41.2 % (25-40); Mean Corpuscular HGB Conc 33.7 % (30-36); Mean Corpuscular Hemoglobin 26.1 PG (26-34); Mean Corpuscular Volume 77.5 fL (80-100); Monocytes Absolute Auto 600 /uL (0-900); Neutrophils Absolute Auto 3100 /uL (1500-7000); Neutrophils Percent Auto 46.6 % (50-75); Platelet Count 370 X10^3/uL (150-400); Red Blood Cell Count 4.51 X10^6/uL (4.0-5.2); Red Cell Distribution Width 17.6 % (11.6-14.8); White Blood Cell Count 6.6 X10^3/uL (4.5-11.0)
[2025-01-20 09:07] LABS: Pregnancy Test Serum,Qual Negative (Negative)
[2025-01-20 09:08] LABS: Alanine Aminotransferase 24 IU/L (<35); Albumin 4.7 g/dL (3.5-5.0); Albumin Globulin Ratio 1.8 (1.0-2.8); Alkaline Phosphatase 75 U/L (38-126); Aspartate Aminotransferase 27 IU/L (14-36); BUN Creatinine Ratio 21.4 (6-22); Bilirubin Total 1.1 mg/dL (0.2-1.3); Blood Urea Nitrogen 12 mg/dL (7-17); Calcium 9.3 mg/dL (8.4-10.2); Carbon Dioxide 23 mmol/L (22-32); Chloride 106 mmol/L (98-107); Estimated Glomerular Filt Rate > 60 mL/min (>60); Globulin 2.6 g/dL (1.7-4.1); Glucose 107 mg/dL (70-99); HEMOLYSIS < 15 (0-50); Lipase 102 U/L (23-300); Potassium 4.1 mmol/L (3.4-5.1); Sodium 139 mmol/L (137-145); Total Protein 7.3 g/dL (6.3-8.2)
[2025-01-20 09:09] LABS: Lactate (Lactic Acid) 1.5 mmol/L (0.7-2.1)
[2025-01-20 09:25] LABS: Procalcitonin 0.032 ng/mL (<0.5)
[2025-01-20 09:26] LABS: Appearance Urine UA CLEAR; Bilirubin Urine UA NEGATIVE (NEGATIVE); Color Urine UA YELLOW; Glucose Urine UA NEGATIVE (Negative); Ketones Urine UA NEGATIVE (NEGATIVE); Leukocyte Esterase Urine UA NEGATIVE (NEGATIVE); Nitrite Urine UA NEGATIVE (Negative); Occult Blood Urine UA NEGATIVE (Negative); Protein Urine UA NEGATIVE (Negative); Specific Gravity Urine UA <=1.005 (1.000-1.035); Urobilinogen Urine UA 0.2 E.U./dL (0.2)
[2025-01-20 09:44] LABS: Bacteria Urine Few (2-10); Culture Indicated Urine Cult Not Indicated; RBC Urine 0-1/HPF (0-5/HPF); Squamous Epithelial Cell Urine 5-10 /HPF (0-5/HPF); Urine Volume 10mL (spun); WBC Urine 0-1/HPF (0-5/HPF)
[2025-01-20] MEDS: PIPERACILLIN/TAZO 4.5 GM in SODIUM CHLORIDE 0.9% 100 ML IV (10:18)
[2025-01-20] MEDS: HYDROMORPHONE 0.5 MG INJ IV ×4 (10:40→21:49)
[2025-01-20] MEDS: OXYCODONE IR 5 MG TABLET PO ×3 (11:08→18:16)
[2025-01-20] MEDS: DEXTROSE 5%-0.9% NS 1,000 ML 100 ML IV ×2 (11:17→21:32)
[2025-01-20] MEDS: METOCLOPRAMIDE HCL 5 MG TABLET PO ×2 (12:00→17:36)
[2025-01-20] MEDS: GABAPENTIN 100 MG CAPSULE PO ×3 (12:01→21:49)
--- NOTE | 2025-01-20 16:26 | PM.HP.1 ---
History of Present Illness History of Present Illness Date Patient Seen: 01/20/25 Chief complaint: Diverticulitis, Flare up not better Narrative: Chief complaint: Left lower quadrant pain worsened after eating coughing or vomiting History of present illness: 44-year-old female with diverticulitis treated in the ED and sent home on oral antibiotics initially did start to improve however began to worsen with nausea and vomiting and came back. In the ED patient did have a better white blood cell count and less appearance of diverticulitis on CT however symptomatic with it was worst and was admitted Review of systems: No chest pain shortness for breath No palpitations No urinary symptoms No neurologic symptoms Physical exam: No acute distress new line HEENT unremarkable No respiratory distress Focal left lower quadrant tenderness No edema of the extremities Assessment and plan: Diverticulitis of descending colon IV Zosyn Liquid diet Advance diet as tolerated DVT prophylaxis not indicated Full Code [facility] Medical History Left corneal abrasion Headache Polycystic ovary disease Celiac disease GERD with apnea Hypertension Bipolar disorder Surgical History Status post tubal ligation History of section H/O abdominoplasty H/O oophorectomy H/O gastric sleeve History of cholecystectomy History of appendectomy Social History marital status: household members: significant other and children lives independently: Yes occupational status: employed Smoking Status: Never smoker alcohol intake: current substance use type: marijuana Meds Home Medications and Allergies Home Medications Medication Instructions Recorded Confirmed Type metoclopramide HCl 5 mg tablet 5 mg PO QAC 07/24/24 01/20/25 History (Reglan) clonazepam 0.5 mg tablet 0.5 mg PO BID 08/24/24 01/20/25 History estradiol 0.5 mg tablet 0.5 mg PO DAILY #30 tabs 11/12/24 01/20/25 Rx levofloxacin 750 mg tablet 750 mg PO DAILY 5 days #5 tabs 01/17/25 01/20/25 Rx metronidazole 500 mg tablet 500 mg PO Q8H 10 days #30 tabs 01/17/25 01/20/25 Rx ondansetron HCl 4 mg tablet 4 mg PO Q8H PRN nausea/vomiting 01/19/25 01/20/25 Rx #30 tabs lamotrigine 25 mg tablet 25 mg PO DAILY 01/20/25 01/20/25 History Allergies Allergy/AdvReac Type Severity Reaction Status Date / Time vancomycin Allergy Intermediate ITCHING Verified 01/17/25 08:02 gluten Allergy Celiac Verified 01/17/25 08:02 coconut AdvReac Intermediate Hives Verified 01/17/25 08:02 NSAIDS (Non-Steroidal AdvReac Mild Gastrointestinal Verified 01/17/25 08:02 Anti-Inflamma Upset benzonatate AdvReac Unknown Hives Verified 01/17/25 08:02 [From Tessalon Perles] escitalopram [From Lexapro] AdvReac Unknown Hallucinati Verified 01/17/25 08:02 ng Exam Vital Signs (past 8 hours): - 01/20/25 08:38 01/20/25 08:39 01/20/25 08:39 Temperature Pulse Rate 73 Respiratory Rate 18 Blood Pressure 148/73 H Pulse Oximetry 100 98 Oxygen Delivery Method Room Air 01/20/25 09:17 01/20/25 09:18 01/20/25 09:18 Temperature Pulse Rate 62 Respiratory Rate 18 Blood Pressure 165/96 H Pulse Oximetry 99 98 Oxygen Delivery Method 01/20/25 09:30 01/20/25 09:30 01/20/25 10:00 Temperature Pulse Rate 66 Respiratory Rate 18 18 Blood Pressure 143/79 H 151/87 H Pulse Oximetry 99 Oxygen Delivery Method 01/20/25 10:00 01/20/25 11:28 Temperature 98.4 F Pulse Rate 54 L 66 Respiratory Rate 16 Blood Pressure 143/100 H Pulse Oximetry 99 98 Oxygen Delivery Method Oxygen Delivery Method Room Air Objective Labs 01/20/25 08:25 01/20/25 08:25 Labs: Laboratory Results - last 24 hr 01/20/25 01/20/25 08:25 09:14 WBC 6.6 RBC 4.51 Hgb 11.8 L Hct 35.0 L MCV 77.5 L MCH 26.1 MCHC 33.7 RDW 17.6 H Plt Count 370 Neut % (Auto) 46.6 L Lymph % (Auto) 41.2 H [place] % (Auto) 9.0 Eos % (Auto) 2.5 Baso % (Auto) 0.7 Neut # (Auto) 3100 Lymph # (Auto) 2700 [place] # (Auto) 600 Eos # (Auto) 200 Baso # (Auto) 0 Sodium 139 Potassium 4.1 Chloride 106 Carbon Dioxide 23 BUN 12 Creatinine 0.56 Estimated GFR > 60 BUN/Creatinine Ratio 21.4 Glucose 107 H Lactate 1.5 Calcium 9.3 Total Bilirubin 1.1 AST 27 ALT 24 Alkaline Phosphatase 75 Total Protein 7.3 Albumin 4.7 Globulin 2.6 Albumin/Globulin Ratio 1.8 Lipase 102 D Procalcitonin 0.032 Serum , Qual Negative Urine Color Yellow Urine Appearance Clear Urine pH 7.0 Ur Specific [place] <=1.005 Urine Protein Negative Urine Glucose (UA) Negative Urine Ketones Negative Urine Occult Blood Negative Urine Nitrate Negative Urine Bilirubin Negative Urine Urobilinogen 0.2 Ur Leukocyte Esterase Negative Urine RBC 0-1/hpf Urine WBC 0-1/hpf Ur Squamous Epith Cells 5-10 /hpf H Urine Bacteria Few (2-10) H Ur Culture Indicated? Cult not indicated Vol Urine Centrifuged 10ml (spun) Assessment & Plan Time-Based Coding :: [TOTAL MINUTES] spent with patient and on the chart (including review of chart, obtaining history, exam, reviewing outside data, placing orders, documenting exam and treatment plan, and counseling patient) on [DATE].
[2025-01-20] MEDS: PIPERACILLIN/TAZO 3.375 GM in SODIUM CHLORIDE 0.9% 100 ML IV (17:34)
[2025-01-20] MEDS: ACETAMINOPHEN 325 MG TABLET 650 MG PO (18:15)
[2025-01-20] MEDS: ONDANSETRON 4 MG ODT PO (19:27)
[2025-01-21] MEDS: HYDROMORPHONE 0.5 MG INJ 1 MG IV ×5 (00:04→20:23)
[2025-01-21 02:00] VITALS: BP 114/60; PULSE 84; RESP 19; TEMP 36.5; O2SAT 99
[2025-01-21] MEDS: PIPERACILLIN/TAZO 3.375 GM in SODIUM CHLORIDE 0.9% 100 ML IV ×3 (02:26→18:52)
[2025-01-21 06:00] VITALS: BP 129/90; PULSE 53; RESP 18; TEMP 36.7; O2SAT 100
--- NOTE | 2025-01-21 07:22 | P.PN_ITS ---
Subjective Subjective Date Patient Seen: 01/21/25 Interval history: Chief complaint: Left lower quadrant pain worsened after eating coughing or vomiting secondary to descending colon diverticulitis History of present illness: 44-year-old female with diverticulitis treated in the ED and sent home on oral antibiotics initially did start to improve however began to worsen with nausea and vomiting and came back. In the ED patient did have a better white blood cell count and less appearance of diverticulitis on CT however symptomatic with it was worst and was admitted Hospital course: 01/20: Increased abdominal pain after straining to urinate and eating some of her clear liquid diet Review of systems: No chest pain shortness for breath No palpitations No urinary symptoms No neurologic symptoms Physical exam: Tearful in pain holding side Focal tenderness but no peritoneal signs No edema of the extremities Assessment and plan: Diverticulitis of descending colon IV Zosyn Hold Liquid diet today Advance diet as tolerated DVT prophylaxis not indicated Full Code Blue Exam Vital Signs (past 8 hours): - 01/21/25 02:00 01/21/25 06:00 Temperature 97.7 F 98.1 F Pulse Rate 84 53 L Respiratory Rate 19 18 Blood Pressure 114/60 129/90 Pulse Oximetry 99 100 Oxygen Flow Rate 0 0 Oxygen Delivery Method Room Air Oxygen Flow Rate 0 Objective Labs 01/20/25 08:25 01/20/25 08:25 Labs: Laboratory Results - last 24 hr 01/20/25 01/20/25 08:25 09:14 WBC 6.6 RBC 4.51 Hgb 11.8 L Hct 35.0 L MCV 77.5 L MCH 26.1 MCHC 33.7 RDW 17.6 H Plt Count 370 Neut % (Auto) 46.6 L Lymph % (Auto) 41.2 H [place] % (Auto) 9.0 Eos % (Auto) 2.5 Baso % (Auto) 0.7 Neut # (Auto) 3100 Lymph # (Auto) 2700 [place] # (Auto) 600 Eos # (Auto) 200 Baso # (Auto) 0 Sodium 139 Potassium 4.1 Chloride 106 Carbon Dioxide 23 BUN 12 Creatinine 0.56 Estimated GFR > 60 BUN/Creatinine Ratio 21.4 Glucose 107 H Lactate 1.5 Calcium 9.3 Total Bilirubin 1.1 AST 27 ALT 24 Alkaline Phosphatase 75 Total Protein 7.3 Albumin 4.7 Globulin 2.6 Albumin/Globulin Ratio 1.8 Lipase 102 D Procalcitonin 0.032 Serum , Qual Negative Urine Color Yellow Urine Appearance Clear Urine pH 7.0 Ur Specific [place] <=1.005 Urine Protein Negative Urine Glucose (UA) Negative Urine Ketones Negative Urine Occult Blood Negative Urine Nitrate Negative Urine Bilirubin Negative Urine Urobilinogen 0.2 Ur Leukocyte Esterase Negative Urine RBC 0-1/hpf Urine WBC 0-1/hpf Ur Squamous Epith Cells 5-10 /hpf H Urine Bacteria Few (2-10) H Ur Culture Indicated? Cult not indicated Vol Urine Centrifuged 10ml (spun) PFSH Medical History Left corneal abrasion Headache Polycystic ovary disease Celiac disease GERD with apnea Hypertension Bipolar disorder Surgical History Status post tubal ligation History of section H/O abdominoplasty H/O oophorectomy H/O gastric sleeve History of cholecystectomy History of appendectomy Social History marital status: household members: significant other and children lives independently: Yes occupational status: employed Smoking Status: Never smoker alcohol intake: current substance use type: marijuana Assessment & Plan Time-Based Coding :: [TOTAL MINUTES] spent with patient and on the chart (including review of chart, obtaining history, exam, reviewing outside data, placing orders, documenting exam and treatment plan, and counseling patient) on [DATE].
[2025-01-21 08:00] VITALS: BP 138/87; PULSE 71; RESP 12; TEMP 36.4; O2SAT 100
[2025-01-21] MEDS: METOCLOPRAMIDE HCL 5 MG TABLET PO ×3 (08:22→17:23)
[2025-01-21] MEDS: DEXTROSE 5%-0.9% NS 1,000 ML 100 ML IV (08:22)
[2025-01-21] MEDS: clonazePAM 0.5 MG TABLET PO (08:23)
[2025-01-21] MEDS: lamoTRIgine 100 MG TABLET 25 MG PO (08:23)
[2025-01-21] MEDS: estradioL 1 MG TABLET 0.5 MG PO (08:23)
[2025-01-21] MEDS: GABAPENTIN 100 MG CAPSULE PO ×4 (08:23→20:23)
[2025-01-21] MEDS: OXYCODONE IR 5 MG TABLET PO ×3 (08:27→18:56)
--- NOTE | 2025-01-21 11:23 | CM.DANOTE ---
Initial DCP Assessment Note Pt is a 44 yo female, resident of [place], presents with persistent abdominal pain. Patient has failed outpatient management of her diverticulitis and has been admitted INPT for IV abx and IV pain meds. PCP: Dr. Burgos, [facility] Payer: KELLY [employer] Reviewed chart, pt discussed in multidisciplinary rounds this morning. ELIZABETH 01/23. Met w/patient. Patient lives independently with her and family, denies needs from this SW team. No barriers identified at this time to patient's safe discharge home w/family to assist when medically cleared to do so. CM team will plan to follow clinical course closely in case any DC needs or concerns arise. 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 No Advance Directives on File No History Provided By Patient,Medical Record Has Patient been admitted in last 30 No days? Comment ER visits for Abd pain- ER 01/17 ER 01/05 ER 01/03 ER 12/02 ER 11/17 Prior Living Arrangements House Household Members significant other,children Type of transporation used prior to Drives own vehicle admit Independent with ADL's Yes Is patient alert and oriented? Yes Caregiver for Another Yes: Children Barriers to Discharge No Comment Home w/ S.O. expected Discharge Plan Home Transportation Arrangement Spouse can transport home at d /c Referrals Initiated None needed
[2025-01-21 14:00] VITALS: PULSE 67; RESP 20; TEMP 36.6; O2SAT 95
[2025-01-21 18:24] VITALS: BP 149/95; PULSE 60; RESP 16; TEMP 36.8; O2SAT 100
[2025-01-21] MEDS: ACETAMINOPHEN 325 MG TABLET 650 MG PO (18:56)
[2025-01-21 20:20] VITALS: BP 153/107; PULSE 68; RESP 17; TEMP 36.9; O2SAT 100
[2025-01-22] MEDS: HYDROMORPHONE 0.5 MG INJ 1 MG IV ×2 (00:15→07:51)
[2025-01-22] MEDS: ONDANSETRON 4 MG ODT PO ×3 (00:26→20:40)
[2025-01-22 02:00] VITALS: BP 119/76; PULSE 88; RESP 19; TEMP 36.7; O2SAT 97
[2025-01-22] MEDS: OXYCODONE IR 5 MG TABLET PO ×4 (02:03→17:09)
[2025-01-22] MEDS: PIPERACILLIN/TAZO 3.375 GM in SODIUM CHLORIDE 0.9% 100 ML IV ×3 (02:03→17:10)
[2025-01-22] MEDS: METOCLOPRAMIDE HCL 5 MG TABLET PO ×3 (07:50→17:09)
[2025-01-22 08:17] VITALS: BP 122/88; PULSE 61; RESP 18; TEMP 36.8; O2SAT 100
[2025-01-22] MEDS: estradioL 1 MG TABLET 0.5 MG PO (09:20)
[2025-01-22] MEDS: lamoTRIgine 100 MG TABLET 25 MG PO (09:20)
[2025-01-22] MEDS: GABAPENTIN 100 MG CAPSULE PO ×4 (09:20→20:34)
[2025-01-22] MEDS: clonazePAM 0.5 MG TABLET PO ×2 (09:20→20:34)
[2025-01-22] MEDS: ACETAMINOPHEN 325 MG TABLET 650 MG PO ×2 (09:26→17:09)
[2025-01-22 12:13] VITALS: BP 100/56; PULSE 57; RESP 16; TEMP 36.6; O2SAT 100
--- NOTE | 2025-01-22 13:09 | P.PN_ITS ---
Subjective Subjective Date Patient Seen: 01/22/25 Interval history: Chief complaint: Left lower quadrant pain worsened after eating coughing or vomiting secondary to descending colon diverticulitis History of present illness: 44-year-old female with diverticulitis treated in the ED and sent home on oral antibiotics initially did start to improve however began to worsen with nausea and vomiting and came back. In the ED patient did have a better white blood cell count and less appearance of diverticulitis on CT however symptomatic with it was worst and was admitted Hospital course: 01/20-: Increased abdominal pain after straining to urinate and eating some of her clear liquid diet 01/22: Less abdominal pain advancing diet Review of systems: No chest pain shortness for breath No palpitations No urinary symptoms No neurologic symptoms Physical exam: Tearful in pain holding side Focal tenderness but no peritoneal signs No edema of the extremities Assessment and plan: Diverticulitis of descending colon IV Zosyn continue Advance diet as tolerated DVT prophylaxis not indicated Full Code Blue Exam Vital Signs (past 8 hours): - 01/22/25 08:17 01/22/25 12:13 Temperature 98.2 F 97.9 F Pulse Rate 61 57 L Respiratory Rate 18 16 Blood Pressure 122/88 100/56 L Pulse Oximetry 100 100 Oxygen Flow Rate 0 0 Oxygen Delivery Method Room Air Oxygen Flow Rate 0 Objective Labs 01/20/25 08:25 01/20/25 08:25 [facility] Medical History Left corneal abrasion Headache Polycystic ovary disease Celiac disease GERD with apnea Hypertension Bipolar disorder Surgical History Status post tubal ligation History of section H/O abdominoplasty H/O oophorectomy H/O gastric sleeve History of cholecystectomy History of appendectomy Social History marital status: household members: significant other and children lives independently: Yes occupational status: employed Smoking Status: Never smoker alcohol intake: current substance use type: marijuana Assessment & Plan Time-Based Coding :: [TOTAL MINUTES] spent with patient and on the chart (including review of chart, obtaining history, exam, reviewing outside data, placing orders, documenting exam and treatment plan, and counseling patient) on [DATE].
[2025-01-22] MEDS: HYDROMORPHONE 1 MG INJ IV ×2 (13:39→20:35)
[2025-01-22 18:00] VITALS: BP 125/78; PULSE 54; RESP 16; TEMP 36.4; O2SAT 100
[2025-01-22 20:00] VITALS: BP 137/82; PULSE 52; RESP 19; TEMP 36.6; O2SAT 100
[2025-01-23] MEDS: PIPERACILLIN/TAZO 3.375 GM in SODIUM CHLORIDE 0.9% 100 ML IV ×2 (02:24→14:31)
[2025-01-23] MEDS: HYDROMORPHONE 1 MG INJ IV ×5 (02:45→20:11)
[2025-01-23] MEDS: ALPRAZolam 0.25 MG TABLET 0.5 MG PO ×2 (03:19→20:05)
[2025-01-23] MEDS: ACETAMINOPHEN 325 MG TABLET 650 MG PO (03:19)
[2025-01-23] MEDS: OXYCODONE IR 5 MG TABLET PO ×5 (03:19→19:28)
[2025-01-23 06:00] VITALS: BP 133/68; PULSE 76; RESP 19; TEMP 37; O2SAT 99
[2025-01-23] MEDS: lamoTRIgine 100 MG TABLET 25 MG PO (08:19)
[2025-01-23] MEDS: METOCLOPRAMIDE HCL 5 MG TABLET PO ×3 (08:19→16:23)
[2025-01-23] MEDS: estradioL 1 MG TABLET 0.5 MG PO (08:19)
[2025-01-23] MEDS: GABAPENTIN 100 MG CAPSULE PO ×4 (08:19→20:05)
[2025-01-23 12:00] VITALS: BP 130/90; PULSE 69; RESP 20; TEMP 36.8; O2SAT 99
[2025-01-23] MEDS: DEXTROSE 5%-0.9% NS 1,000 ML 100 ML IV (12:23)
--- NOTE | 2025-01-23 12:50 | DI.CT.S_ITS ---
PROCEDURE: CT ABDOMEN PELVIS W CON INDICATIONS: diverticulitis TECHNIQUE: After the administration of intravenous contrast, axial sections acquired from the lung bases to the pubic symphysis. Coronal and sagittal reformats were performed. For radiation dose reduction, the following was used: automated exposure control, adjustment of mA and/or kV according to patient size. COMPARISON: [facility], CT, CT ABDOMEN PELVIS W CON, 01/20/2025, 9:07. FINDINGS: Image quality: Diagnostic. Lower Chest: Small hiatal hernia. ABDOMEN: Liver: No solid mass. Gallbladder: Absent Biliary ducts: No biliary dilation. Pancreas: No ductal dilation. Spleen: Size is within normal limits. Pseudocysts with peripheral calcifications along the superior margin measuring 4.9 cm. Adrenal Glands: No adrenal nodules. Kidneys and Ureters: No hydronephrosis. No solid mass. No complex renal cystic lesion which requires follow up. Stomach and Bowel: Short segment of wall thickening with pericolonic fat stranding in the proximal sigmoid colon . Colonic diverticula are present. Gastric sleeve surgery. Diastasis rectus. Peritoneum: No abnormal intraperitoneal fluid. No free air. Ventral Wall: No significant ventral hernia. Abdominal Nodes: No retroperitoneal or mesenteric adenopathy by size criteria. Vessels: Aorta and inferior vena cava are normal in size. PELVIS: Pelvic Organs: Unremarkable. Bladder: No bladder wall thickening, accounting for underdistention. Pelvic Nodes: No enlarged lymph nodes. Miscellaneous: No inguinal hernias are seen. Bones: No aggressive osseous abnormality. IMPRESSION: Suspected diverticulitis of the proximal sigmoid colon, without evidence of perforation or abscess. Dictated by: Pavan Farfan M.D. on 01/23/2025 at 13:55 Approved by: Pavan Farfan M.D. on 01/23/2025 at 13:57
--- NOTE | 2025-01-23 13:31 | CM.DPNOTE ---
DCP Cont Reviewed chart. Patient discussed in multidisciplinary rounds. Repeat CT scheduled - patient continues to have abd pain. Patient slowly improving - diet will remain sips of clear liquids and IV Zosyn at this time. Plan remains discharge home w/family w/close outpatient follow up. CM team following clinical course closely in case any discharge needs or concerns arise. SHERWIN
--- NOTE | 2025-01-23 13:46 | PC.NURSE ---
1115 Report received from off going RN. Patient AAO x's 4. Able to GARDINER. Complaining of mild nausea. Denies numbness and tingling. Call light within reach and bed in lowest position. 1305 Patient off unit via wheelchair to CT. 1317 Patient back to unit from CT, ambulating to restroom.
--- NOTE | 2025-01-23 16:18 | P.PN_ITS ---
Subjective Subjective Date Patient Seen: 01/23/25 Interval history: Chief complaint: Left lower quadrant pain worsened after eating coughing or vomiting secondary to descending colon diverticulitis History of present illness: 44-year-old female with diverticulitis treated in the ED and sent home on oral antibiotics initially did start to improve however began to worsen with nausea and vomiting and came back. In the ED patient did have a better white blood cell count and less appearance of diverticulitis on CT however symptomatic with it was worst and was admitted Hospital course: 01/20-: Increased abdominal pain after straining to urinate and eating some of her clear liquid diet 01/22: Less abdominal pain advancing diet then later had nausea vomiting postprandially after lunch 01/23: Still having significant left-sided pain radiating to the back we will check lipase keep on clear liquid repeat CT does not show perforation free fluid or signs of pancreatitis Review of systems: No chest pain shortness for breath No palpitations No urinary symptoms No neurologic symptoms Physical exam: Tearful in pain holding side Focal tenderness but no peritoneal signs No edema of the extremities Imaging: ABDOMEN: Liver: No solid mass. Gallbladder: Absent Biliary ducts: No biliary dilation. Pancreas: No ductal dilation. Spleen: Size is within normal limits. Pseudocysts with peripheral calcifications along the superior margin measuring 4.9 cm. Adrenal Glands: No adrenal nodules. Kidneys and Ureters: No hydronephrosis. No solid mass. No complex renal cystic lesion which requires follow up. Stomach and Bowel: Short segment of wall thickening with pericolonic fat stranding in the proximal sigmoid colon . Colonic diverticula are present. Gastric sleeve surgery. Diastasis rectus. Peritoneum: No abnormal intraperitoneal fluid. No free air. Ventral Wall: No significant ventral hernia. Abdominal Nodes: No retroperitoneal or mesenteric adenopathy by size criteria. Vessels: Aorta and inferior vena cava are normal in size. PELVIS: Pelvic Organs: Unremarkable. Bladder: No bladder wall thickening, accounting for underdistention. Pelvic Nodes: No enlarged lymph nodes. Miscellaneous: No inguinal hernias are seen. Bones: No aggressive osseous abnormality. IMPRESSION: Suspected diverticulitis of the proximal sigmoid colon, without evidence of perforation or abscess. Assessment and plan: Diverticulitis of descending colon with spurious lipase elevation consider pancreatitis IV Zosyn continue Continue IV fluid Slow advancement of diet presently on clear liquid DVT prophylaxis not indicated Full Code Blue Exam Vital Signs (past 8 hours): - 01/23/25 12:00 Temperature 98.3 F Pulse Rate 69 Respiratory Rate 20 Blood Pressure 130/90 Pulse Oximetry 99 Oxygen Delivery Method Room Air Oxygen Flow Rate 0 Objective Labs 01/20/25 08:25 01/20/25 08:25 [facility] Medical History Left corneal abrasion Headache Polycystic ovary disease Celiac disease GERD with apnea Hypertension Bipolar disorder Surgical History Status post tubal ligation History of section H/O abdominoplasty H/O oophorectomy H/O gastric sleeve History of cholecystectomy History of appendectomy Social History marital status: household members: significant other and children lives independently: Yes occupational status: employed Smoking Status: Never smoker alcohol intake: current substance use type: marijuana Assessment & Plan Time-Based Coding :: [TOTAL MINUTES] spent with patient and on the chart (including review of chart, obtaining history, exam, reviewing outside data, placing orders, documenting exam and treatment plan, and counseling patient) on [DATE].
[2025-01-23 18:18] LABS: Lipase 57 U/L (23-300)
[2025-01-23] MEDS: clonazePAM 0.5 MG TABLET PO (20:05)
[2025-01-23] MEDS: ONDANSETRON 4 MG ODT PO (20:05)
--- NOTE | 2025-01-23 21:48 | PC.NURSE ---
Late entry for Friday01/11/25 at 19:46: Patient had zosyn running and D5NS ordered. Asked Dr. Cardoza if he wanted to put a new line in so we can run at the same time. He said to hold the fluids until zosyn is finished.
[2025-01-24] VITALS: BP 132/64; PULSE 68; RESP 18; TEMP 37.1; O2SAT 97
[2025-01-24] MEDS: HYDROMORPHONE 1 MG INJ IV ×6 (00:08→20:40)
[2025-01-24] MEDS: PIPERACILLIN/TAZO 3.375 GM in SODIUM CHLORIDE 0.9% 100 ML IV (00:58)
[2025-01-24] MEDS: ONDANSETRON 4 MG ODT PO ×2 (04:39→18:40)
[2025-01-24] MEDS: OXYCODONE IR 5 MG TABLET PO ×5 (05:48→23:33)
[2025-01-24 06:00] VITALS: BP 128/66; PULSE 84; RESP 19; TEMP 37.1; O2SAT 96
[2025-01-24] MEDS: METOCLOPRAMIDE HCL 5 MG TABLET PO ×2 (07:36→11:41)
[2025-01-24] MEDS: GABAPENTIN 100 MG CAPSULE PO ×4 (08:00→20:41)
[2025-01-24] MEDS: lamoTRIgine 100 MG TABLET 25 MG PO (08:00)
[2025-01-24] MEDS: clonazePAM 0.5 MG TABLET PO ×2 (08:00→20:41)
[2025-01-24] MEDS: estradioL 1 MG TABLET 0.5 MG PO (08:00)
[2025-01-24] MEDS: SODIUM CHLORIDE 0.9% FLUSH 10 ML IV (08:01)
[2025-01-24] MEDS: metroNIDAZOLE 500 MG/100 ML PIGGYBACK 100 MG IV ×3 (08:49→20:41)
--- NOTE | 2025-01-24 08:57 | P.PN_ITS ---
Subjective Subjective Date Patient Seen: 01/24/25 Interval history: Chief complaint: Left lower quadrant pain worsened after eating coughing or vomiting secondary to descending colon diverticulitis History of present illness: 44-year-old female with diverticulitis treated in the ED and sent home on oral antibiotics initially did start to improve however began to worsen with nausea and vomiting and came back. In the ED patient did have a better white blood cell count and less appearance of diverticulitis on CT however symptomatic with it was worst and was admitted Hospital course: 01/20-: Increased abdominal pain after straining to urinate and eating some of her clear liquid diet 01/22: Less abdominal pain advancing diet then later had nausea vomiting postprandially after lunch 01/23: Still having significant left-sided pain radiating to the back we will check lipase keep on clear liquid repeat CT does not show perforation free fluid or signs of pancreatitis 01/24: Patient having increasing abdominal pain and now uncontrolled diarrhea there is suspicion of C diff colitis after all the antibiotics Zosyn has been discontinued stool sent for C diff started empirically on IV Flagyl oral vancomycin waiting results Review of systems: No chest pain shortness for breath No palpitations No urinary symptoms No neurologic symptoms Physical exam: Tearful in pain holding side Focal tenderness and now more generalized abdominal but no peritoneal signs No edema of the extremities Imaging: ABDOMEN: Liver: No solid mass. Gallbladder: Absent Biliary ducts: No biliary dilation. Pancreas: No ductal dilation. Spleen: Size is within normal limits. Pseudocysts with peripheral calcifications along the superior margin measuring 4.9 cm. Adrenal Glands: No adrenal nodules. Kidneys and Ureters: No hydronephrosis. No solid mass. No complex renal cystic lesion which requires follow up. Stomach and Bowel: Short segment of wall thickening with pericolonic fat stranding in the proximal sigmoid colon . Colonic diverticula are present. Gastric sleeve surgery. Diastasis rectus. Peritoneum: No abnormal intraperitoneal fluid. No free air. Ventral Wall: No significant ventral hernia. Abdominal Nodes: No retroperitoneal or mesenteric adenopathy by size criteria. Vessels: Aorta and inferior vena cava are normal in size. PELVIS: Pelvic Organs: Unremarkable. Bladder: No bladder wall thickening, accounting for underdistention. Pelvic Nodes: No enlarged lymph nodes. Miscellaneous: No inguinal hernias are seen. Bones: No aggressive osseous abnormality. IMPRESSION: Suspected diverticulitis of the proximal sigmoid colon, without evidence of perforation or abscess. Assessment and plan: Diverticulitis of descending colon now with more generalized abdominal pain and diarrhea suspicious for Clostridium difficile * Stool for C diff, lactic acid * IV Zosyn discontinue * Empiric IV Flagyl oral vancomycin * Continue IV fluid DVT prophylaxis not indicated Full Code Blue Exam Vital Signs (past 8 hours): - 01/24/25 06:00 Temperature 98.8 F Pulse Rate 84 Respiratory Rate 19 Blood Pressure 128/66 Pulse Oximetry 96 Oxygen Flow Rate 0 Oxygen Delivery Method Room Air Oxygen Flow Rate 0 Objective Labs 01/20/25 08:25 01/20/25 08:25 Labs: Laboratory Results - last 24 hr 01/23/25 17:57 Lipase 57 PFSH Medical History Left corneal abrasion Headache Polycystic ovary disease Celiac disease GERD with apnea Hypertension Bipolar disorder Surgical History Status post tubal ligation History of section H/O abdominoplasty H/O oophorectomy H/O gastric sleeve History of cholecystectomy History of appendectomy Social History marital status: household members: significant other and children lives independently: Yes occupational status: employed Smoking Status: Never smoker alcohol intake: current substance use type: marijuana Assessment & Plan Time-Based Coding :: [TOTAL MINUTES] spent with patient and on the chart (including review of chart, obtaining history, exam, reviewing outside data, placing orders, documenting exam and treatment plan, and counseling patient) on [DATE].
[2025-01-24 09:16] LABS: Clostridium Difficile Tox PCR Negative for C. diff (Negative)
[2025-01-24 10:08] LABS: Lactate (Lactic Acid) 1.1 mmol/L (0.7-2.1)
[2025-01-24 12:00] VITALS: BP 147/90; PULSE 66; RESP 16; TEMP 37.1; O2SAT 98
--- NOTE | 2025-01-24 12:06 | CM.DPNOTE ---
DCP note CENTRIFUGAL SEPARATOR reviewed EMR per RN report, pt continues to have high amounts of pain, on IV dilauded. C diff neg. eating reg diet. per provider in morning rounds, anticipate here another day or so. No barriers identified at this time to patient's safe discharge home w/family to assist when medically cleared to do so. CM team will plan to follow clinical course closely in case any DC needs or concerns arise. GIO Mercer
[2025-01-24 16:36] LABS: Adenovirus F 40/41 Not Detected (Not Detect); Astrovirus Not Detected (Not Detect); Campylobacter Not Detected (Not Detect); Clostridium difficile toxin AB Not Detected (Not Detect); Cryptosporidium Not Detected (Not Detect); Cyclospora cayetanensis Not Detected (Not Detect); Entamoeba histolytica Not Detected (Not Detect); Enteroaggregative E.coli Not Detected (Not Detect); Enteropathogenic E.coli Not Detected (Not Detect); Enterotoxigenic E.coli It/st Not Detected (Not Detect); Giardia lamblia Not Detected (Not Detect); Norovirus GI/GII Not Detected (Not Detect); Plesiomonsa shigelloides Not Detected (Not Detect); Rotavirus A Not Detected (Not Detect); Salmonella Not Detected (Not Detect); Sapovirus Not Detected (Not Detect); Shiga-like toxin-prod E.coli Not Detected (Not Detect); Shigella/Enteroinvasive E.coli Not Detected (Not Detect); Vibrio Not Detected (Not Detect); Vibrio cholerae Not Detected (Not Detect); Yersinia enterocolitica Not Detected (Not Detect)
[2025-01-24] MEDS: LACTOBACILLUS ACIDOPHILUS TABLET 1 EACH PO (16:57)
[2025-01-24] MEDS: CIPROFLOXACIN 400 MG/200 ML PIGGYBACK 200 MG IV (18:40)
[2025-01-24 19:00] VITALS: BP 145/116; PULSE 64; RESP 20; TEMP 37.4; O2SAT 99
--- NOTE | 2025-01-24 19:37 | DI.CT.S_ITS ---
PROCEDURE: CT ABDOMEN WO [facility] INDICATIONS: worsening severe abdominal pain TECHNIQUE: After the administration of oral contrast, 5 mm thick sections acquired from the diaphragms to the iliac crests. 5 mm coronal and sagittal reformats were then performed. For radiation dose reduction, the following was used: automated exposure control, adjustment of mA and/or kV according to patient size. COMPARISON: [facility], CT, CT ABDOMEN PELVIS W CON, 01/06/2025, 2:31. [facility], CT, CT ABDOMEN PELVIS W CON, 01/17/2025, 8:30. [facility], CT, CT ABDOMEN PELVIS W CON, 05/22/2022, 21:37. [facility], CT, CT ABDOMEN PELVIS W CON, 01/23/2025, 13:20. FINDINGS: Image quality: Diagnostic. Evaluation of the solid parenchymal organs is limited without IV contrast. Lower Chest: No significant findings. ABDOMEN: Liver: No contour-deforming mass. Gallbladder: Absent. Biliary ducts: No biliary dilation. Pancreas: No peripancreatic fluid collection. Spleen: Size is within normal limits. Cyst with peripheral calcification is unchanged Adrenal Glands: No adrenal nodules. Kidneys and Ureters: No hydronephrosis. No stone. No contour-deforming mass. Stomach and Bowel: Gastric sleeve. Stomach is not distended. No small bowel obstruction. A few colonic diverticuli. Peritoneum: No abnormal intraperitoneal fluid. No free air. Ventral Wall: Ventral abdominal wall scar. Rectus diastasis. Small area of thickening at the lower right subcutaneous abdomen, (2/96), unchanged. Abdominal Nodes: No retroperitoneal or mesenteric adenopathy by size criteria. Vessels: Aorta and inferior vena cava are normal in size. No calcified plaque seen. Bones: No aggressive osseous abnormality. IMPRESSION: 1. No dilated bowel. No pneumoperitoneum. No free fluid. 2. No hydronephrosis. No kidney stones. 3. Post cholecystectomy. Gastric sleeve. Dictated by: Dragan Yung M.D. on 01/24/2025 at 20:20 Approved by: Dragan Yung M.D. on 01/24/2025 at 20:29
[2025-01-24] MEDS: HYDROMORPHONE 0.5 MG INJ 1 MG IV (19:52)
[2025-01-25 01:58] VITALS: BP 118/80; PULSE 60; RESP 18; TEMP 36.8; O2SAT 95
[2025-01-25] MEDS: metroNIDAZOLE 500 MG/100 ML PIGGYBACK 100 MG IV ×4 (03:01→20:32)
[2025-01-25] MEDS: CIPROFLOXACIN 400 MG/200 ML PIGGYBACK 200 MG IV ×2 (05:49→17:11)
[2025-01-25] MEDS: HYDROMORPHONE 1 MG INJ IV ×4 (07:00→22:03)
--- NOTE | 2025-01-25 07:42 | P.PN_ITS ---
Subjective Subjective Date Patient Seen: 01/25/25 Interval history: Chief complaint: Left lower quadrant pain worsened after eating coughing or vomiting secondary to descending colon diverticulitis History of present illness: 44-year-old female with diverticulitis treated in the ED and sent home on oral antibiotics initially did start to improve however began to worsen with nausea and vomiting and came back. In the ED patient did have a better white blood cell count and less appearance of diverticulitis on CT however symptomatic with it was worst and was admitted Hospital course: 01/20-: Increased abdominal pain after straining to urinate and eating some of her clear liquid diet 01/22: Less abdominal pain advancing diet then later had nausea vomiting postprandially after lunch 01/23: Still having significant left-sided pain radiating to the back we will check lipase keep on clear liquid repeat CT does not show perforation free fluid or signs of pancreatitis 01/24: Patient having increasing abdominal pain and now uncontrolled diarrhea there is suspicion of C diff colitis after all the antibiotics Zosyn has been discontinued stool sent for C diff started empirically on IV Flagyl IV Cipro waiting results 01/25: Patient's diarrhea is less explosive still rather frequent no longer having fecal incontinence overall pain control is better on day 2 of Flagyl and Cipro Review of systems: No chest pain shortness for breath No palpitations No urinary symptoms No neurologic symptoms Physical exam: Tearful in pain holding side Focal tenderness and now more generalized abdominal but no peritoneal signs No edema of the extremities Imaging: ABDOMEN: Liver: No solid mass. Gallbladder: Absent Biliary ducts: No biliary dilation. Pancreas: No ductal dilation. Spleen: Size is within normal limits. Pseudocysts with peripheral calcifications along the superior margin measuring 4.9 cm. Adrenal Glands: No adrenal nodules. Kidneys and Ureters: No hydronephrosis. No solid mass. No complex renal cystic lesion which requires follow up. Stomach and Bowel: Short segment of wall thickening with pericolonic fat stranding in the proximal sigmoid colon . Colonic diverticula are present. Gastric sleeve surgery. Diastasis rectus. Peritoneum: No abnormal intraperitoneal fluid. No free air. Ventral Wall: No significant ventral hernia. Abdominal Nodes: No retroperitoneal or mesenteric adenopathy by size criteria. Vessels: Aorta and inferior vena cava are normal in size. PELVIS: Pelvic Organs: Unremarkable. Bladder: No bladder wall thickening, accounting for underdistention. Pelvic Nodes: No enlarged lymph nodes. Miscellaneous: No inguinal hernias are seen. Bones: No aggressive osseous abnormality. IMPRESSION: Suspected diverticulitis of the proximal sigmoid colon, without evidence of perforation or abscess. Assessment and plan: Diverticulitis of descending colon now with diarrhea in fact may be a diarrheal illness enteritis with diverticulosis and not diverticulitis * Stool for C diff, lactic acid * IV Zosyn discontinued * Empiric IV Flagyl and IV Cipro * Continue IV fluid * Analgesia and antispasmodics DVT prophylaxis not indicated Full Code Blue Time-Based Coding :: 35 minute spent with patient and on the chart (including review of chart, obtaining history, exam, reviewing outside data, placing orders, documenting exam and treatment plan, and counseling patient). Exam Vital Signs (past 8 hours): - 01/25/25 01:58 Temperature 98.3 F Pulse Rate 60 Respiratory Rate 18 Blood Pressure 118/80 Pulse Oximetry 95 Oxygen Flow Rate 0 Oxygen Delivery Method Room Air Oxygen Flow Rate 0 Objective Labs 01/20/25 08:25 01/25/25 11:40 Labs: Laboratory Results - last 24 hr 01/24/25 01/24/25 08:20 15:00 Lactate 1.1 Stl C. cayetanensis PCR Not detected Stool Rotavirus (PCR) Not detected Stool Adenovirus (PCR) Not detected Stool Astrovirus (PCR) Not detected Stool Cryptosporidium PCR Not detected Stl E.coli Shiga Tox PCR Not detected St Sh/Enteroin Ecoli PCR Not detected Stl Enterotoxigenic E PCR Not detected Stool EPEC (PCR) Not detected Stl E. histolytica PCR Not detected Stool Giardia Lamblia PCR Not detected Stool Sapovirus (PCR) Not detected Stl P. shigelloides PCR Not detected St Y.enterocolitica PCR Not detected Stool Vibrio (PCR) Not detected Stl Vibrio cholerae PCR Not detected Stl Enteroaggr Ecoli PCR Not detected Stl Norovirus GI/GII PCR Not detected Campylobacter (PCR) Not detected C. difficile Tox (PCR) Negative for c. diff Not detected Salmonella (PCR) Not detected PFSH Medical History Left corneal abrasion Headache Polycystic ovary disease Celiac disease GERD with apnea Hypertension Bipolar disorder Surgical History Status post tubal ligation History of section H/O abdominoplasty H/O oophorectomy H/O gastric sleeve History of cholecystectomy History of appendectomy Social History marital status: household members: significant other and children lives independently: Yes occupational status: employed Smoking Status: Never smoker alcohol intake: current substance use type: marijuana
[2025-01-25] MEDS: LACTOBACILLUS ACIDOPHILUS TABLET 1 EACH PO ×3 (07:49→17:11)
[2025-01-25] MEDS: ACETAMINOPHEN 325 MG TABLET 650 MG PO ×2 (07:49→15:24)
[2025-01-25] MEDS: OXYCODONE IR 5 MG TABLET PO ×2 (07:49→12:05)
[2025-01-25 08:00] VITALS: BP 143/104; PULSE 59; RESP 21; TEMP 36.9; O2SAT 99
[2025-01-25] MEDS: GABAPENTIN 100 MG CAPSULE PO ×4 (09:10→20:27)
[2025-01-25] MEDS: estradioL 1 MG TABLET 0.5 MG PO (09:10)
[2025-01-25] MEDS: clonazePAM 0.5 MG TABLET PO ×2 (09:11→20:27)
[2025-01-25] MEDS: lamoTRIgine 100 MG TABLET 25 MG PO (09:11)
[2025-01-25] MEDS: SODIUM CHLORIDE 0.9% FLUSH 10 ML IV ×2 (09:11→22:04)
[2025-01-25 12:00] VITALS: BP 138/95; PULSE 60; RESP 18; TEMP 36.9; O2SAT 99
[2025-01-25 12:06] LABS: BUN Creatinine Ratio 11.1 (6-22); Blood Urea Nitrogen 5 mg/dL (7-17); Calcium 8.9 mg/dL (8.4-10.2); Carbon Dioxide 27 mmol/L (22-32); Chloride 106 mmol/L (98-107); Estimated Glomerular Filt Rate > 60 mL/min (>60); Glucose 90 mg/dL (70-99); HEMOLYSIS < 15 (0-50); Potassium 3.9 mmol/L (3.4-5.1); Sodium 140 mmol/L (137-145)
--- NOTE | 2025-01-25 12:08 | CM.DPNOTE ---
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 remains on IV pain meds at this time. per provider in morning rounds, may dc later this afternoon or tomorrow if pain remains uncontrolled. No barriers identified at this time to patient's safe discharge home w/family to assist when medically cleared to do so. CM team will plan to follow clinical course closely in case any DC needs or concerns arise. GIO Mercer
[2025-01-25] MEDS: OXYCODONE IR 5 MG TABLET 10 MG PO ×2 (15:23→20:28)
[2025-01-25 18:00] VITALS: BP 98/53; PULSE 68; RESP 18; TEMP 36.6; O2SAT 98
[2025-01-26 00:22] VITALS: BP 137/102; PULSE 92; RESP 16; O2SAT 98
[2025-01-26] MEDS: OXYCODONE IR 5 MG TABLET 10 MG PO ×5 (00:25→22:53)
[2025-01-26] MEDS: metroNIDAZOLE 500 MG/100 ML PIGGYBACK 100 MG IV ×4 (02:32→20:14)
[2025-01-26] MEDS: CIPROFLOXACIN 400 MG/200 ML PIGGYBACK 200 MG IV ×2 (05:17→17:10)
[2025-01-26] MEDS: estradioL 1 MG TABLET 0.5 MG PO (09:13)
[2025-01-26] MEDS: LACTOBACILLUS ACIDOPHILUS TABLET 1 EACH PO ×3 (09:15→17:45)
[2025-01-26] MEDS: lamoTRIgine 100 MG TABLET 25 MG PO (09:15)
[2025-01-26] MEDS: clonazePAM 0.5 MG TABLET PO ×2 (09:15→20:17)
[2025-01-26] MEDS: GABAPENTIN 100 MG CAPSULE PO ×4 (09:15→20:18)
[2025-01-26] MEDS: HYDROMORPHONE 1 MG INJ IV ×3 (09:16→20:19)
[2025-01-26] MEDS: SODIUM CHLORIDE 0.9% FLUSH 10 ML IV ×3 (09:17→20:19)
[2025-01-26 11:00] VITALS: BP 142/101; PULSE 68; RESP 14; TEMP 36.9; O2SAT 97
[2025-01-26] MEDS: ACETAMINOPHEN 325 MG TABLET 650 MG PO ×3 (11:08→22:51)
--- NOTE | 2025-01-26 12:21 | P.PN_ITS ---
Subjective Subjective Interval history: Chief complaint: Left lower quadrant pain worsened after eating coughing or vomiting secondary to descending colon diverticulitis History of present illness: 44-year-old female with diverticulitis treated in the ED and sent home on oral antibiotics initially did start to improve however began to worsen with nausea and vomiting and came back. In the ED patient did have a better white blood cell count and less appearance of diverticulitis on CT however symptomatic with it was worst and was admitted Hospital course: 01/20-: Increased abdominal pain after straining to urinate and eating some of her clear liquid diet 01/22: Less abdominal pain advancing diet then later had nausea vomiting postprandially after lunch 01/23: Still having significant left-sided pain radiating to the back we will check lipase keep on clear liquid repeat CT does not show perforation free fluid or signs of pancreatitis 01/24: Patient having increasing abdominal pain and now uncontrolled diarrhea there is suspicion of C diff colitis after all the antibiotics Zosyn has been discontinued stool sent for C diff started empirically on IV Flagyl IV Cipro waiting results 01/25: Patient's diarrhea is less explosive still rather frequent no longer having fecal incontinence overall pain control is better on day 2 of Flagyl and Cipro 01/26: S: She was still having significant left lower quadrant abdomen pain. She was eating a little bit but still requiring IV pain medications multiple times over the last 24 hours. She feels that she was not ready to quite be discharged and that she was still not having significant pain relief from oral pain medication only. She was having fecal incontinence, this is resolved. She denies nausea but has had multiple regurgitation episodes. Her symptoms are very different from her abdominal migraines. Exam Vital Signs (past 8 hours): - 01/26/25 11:00 Temperature 98.4 F Pulse Rate 68 Respiratory Rate 14 Blood Pressure 142/101 H Pulse Oximetry 97 Oxygen Flow Rate 0 Oxygen Delivery Method Room Air Oxygen Flow Rate 0 Narrative Exam Narrative: NAD, alert and oriented. Fluent speech. Lungs are clear, normal rate and effort. Heart is regular, no murmur gallop or rub. Abdomen is soft, non distended. There is left lower quadrant tenderness without guarding or rebound. Extremities are free of edema. Objective Imaging CT scan - abdomen: Radiologist's impression: ABDOMEN: Liver: No solid mass. Gallbladder: Absent Biliary ducts: No biliary dilation. Pancreas: No ductal dilation. Spleen: Size is within normal limits. Pseudocysts with peripheral calcifications along the superior margin measuring 4.9 cm. Adrenal Glands: No adrenal nodules. Kidneys and Ureters: No hydronephrosis. No solid mass. No complex renal cystic lesion which requires follow up. Stomach and Bowel: Short segment of wall thickening with pericolonic fat stranding in the proximal sigmoid colon . Colonic diverticula are present. Gastric sleeve surgery. Diastasis rectus. Peritoneum: No abnormal intraperitoneal fluid. No free air. Ventral Wall: No significant ventral hernia. Abdominal Nodes: No retroperitoneal or mesenteric adenopathy by size criteria. Vessels: Aorta and inferior vena cava are normal in size. PELVIS: Pelvic Organs: Unremarkable. Bladder: No bladder wall thickening, accounting for underdistention. Pelvic Nodes: No enlarged lymph nodes. Miscellaneous: No inguinal hernias are seen. Bones: No aggressive osseous abnormality. IMPRESSION: Suspected diverticulitis of the proximal sigmoid colon, without evidence of perforation or abscess. Labs 01/20/25 08:25 01/25/25 11:40 PFSH Medical History Left corneal abrasion Headache Polycystic ovary disease Celiac disease GERD with apnea Hypertension Bipolar disorder Surgical History Status post tubal ligation History of section H/O abdominoplasty H/O oophorectomy H/O gastric sleeve History of cholecystectomy History of appendectomy Social History marital status: household members: significant other and children lives independently: Yes occupational status: employed Smoking Status: Never smoker alcohol intake: current substance use type: marijuana Assessment & Plan Assessment & Plan narrative: Diverticulitis of descending colon now with diarrhea in fact may be a diarrheal illness enteritis with diverticulosis and not diverticulitis * Stool for C diff, lactic acid * IV Zosyn discontinued * Empiric IV Flagyl and IV Cipro * Continue IV fluid * Analgesia and antispasmodics PLAN: -due to severity of pain and need for IV pain medications, she requires another day of IV antibiotics and we will continue transitioned to oral pain medications. ELIZABETH: 01/27. DVT prophylaxis not indicated Time-Based Coding :: [TOTAL MINUTES] spent with patient and on the chart (including review of chart, obtaining history, exam, reviewing outside data, placing orders, documenting exam and treatment plan, and counseling patient) on [DATE].
[2025-01-26] MEDS: METOCLOPRAMIDE 10 MG/2 ML INJ IV ×2 (13:47→22:40)
[2025-01-26 16:00] VITALS: BP 134/98; PULSE 70; RESP 16; TEMP 36.7; O2SAT 98
[2025-01-26 20:00] VITALS: BP 127/85; PULSE 84; RESP 20; TEMP 36.5; O2SAT 97
[2025-01-26] MEDS: ONDANSETRON 4 MG ODT SL (20:18)
[2025-01-26] MEDS: LORazepam 1 MG TABLET PO (22:51)
[2025-01-27] VITALS: BP 92/51; PULSE 53; RESP 16; TEMP 36.4; O2SAT 96
[2025-01-27] MEDS: HYDROMORPHONE 1 MG INJ IV (00:20)
[2025-01-27] MEDS: metroNIDAZOLE 500 MG/100 ML PIGGYBACK 100 MG IV ×2 (03:01→08:38)
[2025-01-27] MEDS: OXYCODONE IR 5 MG TABLET 10 MG PO ×4 (03:09→12:06)
[2025-01-27 04:40] VITALS: BP 119/86; PULSE 61; RESP 16; TEMP 36.8; O2SAT 99
[2025-01-27] MEDS: CIPROFLOXACIN 400 MG/200 ML PIGGYBACK 200 MG IV (05:54)
[2025-01-27 08:00] VITALS: BP 127/90; PULSE 84; RESP 18; TEMP 36.5; O2SAT 97
[2025-01-27] MEDS: ACETAMINOPHEN 325 MG TABLET 650 MG PO (08:37)
[2025-01-27] MEDS: LACTOBACILLUS ACIDOPHILUS TABLET 1 EACH PO ×2 (08:37→12:06)
[2025-01-27] MEDS: clonazePAM 0.5 MG TABLET PO (08:38)
[2025-01-27] MEDS: GABAPENTIN 100 MG CAPSULE PO ×2 (08:38→12:06)
[2025-01-27] MEDS: METOCLOPRAMIDE 10 MG/2 ML INJ IV (08:38)
[2025-01-27] MEDS: lamoTRIgine 100 MG TABLET 25 MG PO (08:38)
[2025-01-27] MEDS: estradioL 1 MG TABLET 0.5 MG PO (08:38)
[2025-01-27] MEDS: DIPHENOXYLATE/ATROP 2.5/0.025 TABLET 1 EACH PO (08:58)
[2025-01-27] MEDS: SODIUM CHLORIDE 0.9% FLUSH 10 ML IV (09:00)
[2025-01-27 12:00] VITALS: BP 129/81; PULSE 71; RESP 16; TEMP 36.9; O2SAT 98
[2025-01-27] MEDS: ONDANSETRON 4 MG ODT SL (12:08)
--- NOTE | 2025-01-27 12:47 | P.DS_ITS ---
History of Present Illness History of Present Illness Date Patient Seen: 01/20/25 Time Patient Seen: 12:48 Chief complaint: Diverticulitis, Flare up not better Narrative: Per admitting provider: Chief complaint: Left lower quadrant pain worsened after eating coughing or vomiting History of present illness: 44-year-old female with diverticulitis treated in the ED and sent home on oral antibiotics initially did start to improve however began to worsen with nausea and vomiting and came back. In the ED patient did have a better white blood cell count and less appearance of diverticulitis on CT however symptomatic with it was worst and was admitted Discharge Providers Provider Date of admission: 01/20/25 09:46 Discharge Date: 01/28/25 Primary care physician: Sarah Dunbar MD Discharge provider: Wiliam Gutierrez DO Summary Hospital Course Discharge Diagnosis: Diverticulitis, present on admission HTN Chronic migraine Hospital Course: 43 year old female with PMH of HTN, migraine, anxiety who presented with worsening abdominal pain after recent attempt at outpatient management of diverticulitis. She was started on IV ciprofloxacin and metronidazole. She continued to have abdominal symptoms for multiple days though she did slowly start to improve with IV antibiotics. By January 28 the patient appeared well, with much improvement in her abdominal pain. She was tolerating a diet, and elected for discharge home on oral antibiotics. She was given another week of ciprofloxacin and Flagyl to complete therapy for diverticulitis. She has had multiple prior admission for RLQ pain previously. Recommend consideration of outpatient colonoscopy in a couple of months after resolution of her symptoms with her primary care provider. Time Spent with Patient Time spent: Less than 30 minutes Exam Vital Signs (past 8 hours): - 01/27/25 08:00 Temperature 97.7 F Pulse Rate 84 Respiratory Rate 18 Blood Pressure 127/90 Pulse Oximetry 97 Oxygen Flow Rate 0 Oxygen Delivery Method Room Air Oxygen Flow Rate 0 Narrative Exam Narrative: NAD, alert and oriented. Fluent speech. Lungs are clear, normal rate and effort. Heart is regular, no murmur gallop or rub. Abdomen is soft, non distended. There is left lower quadrant tenderness without guarding or rebound. Extremities are free of edema. Objective Labs 01/20/25 08:25 01/25/25 11:40 [facility] Medical History Left corneal abrasion Headache Polycystic ovary disease Celiac disease GERD with apnea Hypertension Bipolar disorder Surgical History Status post tubal ligation History of section H/O abdominoplasty H/O oophorectomy H/O gastric sleeve History of cholecystectomy History of appendectomy Social History marital status: household members: significant other and children lives independently: Yes occupational status: employed Smoking Status: Never smoker alcohol intake: current substance use type: marijuana Discharge Plan Discharge Plan Patient Disposition: Home Discharge orders & Medications Prescriptions: New oxycodone 10 mg tablet 10 mg PO Q3HR PRN (Reason: Pain, Severe (7-10)) 7 Days Qty: 20 0RF ondansetron 4 mg Tablet,Disintegrating 4 mg sublingual Q4HR PRN (Reason: Nausea) 30 Days Qty: 30 0RF ciprofloxacin HCl 500 mg tablet 500 mg PO Q12H 7 Days Qty: 14 0RF metronidazole 500 mg tablet 500 mg PO Q8H 7 Days Qty: 21 0RF Continued clonazepam 0.5 mg tablet 0.5 mg PO BID estradiol 0.5 mg tablet 0.5 mg PO DAILY Qty: 30 3RF ondansetron HCl 4 mg tablet 4 mg PO Q8H PRN (Reason: nausea/vomiting) Qty: 30 0RF metoclopramide HCl [Reglan] 5 mg Tablet 5 mg PO QAC Rx Instructions: administer 30 minutes before meals lamotrigine 25 mg tablet 25 mg PO DAILY Rx Instructions: TAKE 1 tablet BY MOUTH daily for 14 days; then increase to 2 tablets daily for 14 days; then increase to 4 tablets daily for one week FOR 30 DAYS -- Filled 12/17/24 Discontinued metronidazole 500 mg tablet 500 mg PO Q8H 10 Days Qty: 30 0RF levofloxacin 750 mg tablet 750 mg PO DAILY 5 Days Qty: 5 0RF Follow up/Referrals: Sarah Dunbar MD [Primary Care Provider] - Visit Report/Discharge Packet Instructions: DI for Diverticulitis Stand Alone Forms: Patient Portal/API, Stroke Signs & Symptoms, Patient Portal/API/Survey Discharge Data Primary Care Provider: Sarah Dunbar
--- NOTE | 2025-01-27 13:34 | PC.NURSE ---
Day shift: Patient denies nausea/vomiting this shift. Pain adequately controlled with PO oxycodone. PIV removed prior to discharge. All belongings with patient. Discharge instructions gone over with patient and patient's SO. All questions answered, patient stated understanding. RN CJ escorted patient to exit.
== END 2025-01-27 13:35 | disposition home or self-care (01) | DRG 392 ==
LOC: ED 08:22 → AC 10:29
PROVIDERS: Admitting Provider Internal Medicine; Emergency Provider Emergency Medicine; PCP Student in an Organized Health Care Education/Training Program; Referring Provider Emergency Medicine; Visit Provider Internal Medicine
DX: K57.32 Diverticulitis of large intestine without perforation or abscess without bleeding (principal); I10 Essential (primary) hypertension; G43.809 Other migraine, not intractable, without status migrainosus; F41.9 Anxiety disorder, unspecified; R19.7 Diarrhea, unspecified
CPT/HCPCS: 36415; 74150; 74177; 80048; 80053; 81001; 81003; 81015; 83605; 83690; 84145; 84703; 85025; 87086; 87493; 87507; 96361; 96365; 96374; 96375; 96376; 99284; J0131; J0744; J1171; J2405; J2543; J2765; Q9967

== ENCOUNTER 2025-01-30 18:34 | Emergency (ER) | payer OTHER, SELFPAY ==
[2025-01-20 10:43] VITALS: BMI 32.3
[2025-01-30] VITALS (10 sets, daily range): BP systolic 122–195; BP diastolic 72–113; PULSE 62–76; RESP 12–24; TEMP 36.6; O2SAT 94–100; BMI 33.3
--- NOTE | 2025-01-30 18:46 | EKG_ITS ---
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
--- NOTE | 2025-01-30 19:17 | ED_ITS ---
HPI - Abdominal Pain General Chief Complaint: Abdominal Pain Stated Complaint: Abdominal Pain Time Seen by Provider: 01/30/25 18:49 Mode of arrival: Ambulatory History of Present Illness HPI narrative: 44-year-old female history of gastric sleeve appendectomy cholecystectomy hysterectomy left-sided oophorectomy seen multiple times this month for abdominal pain nausea vomiting for which she was diagnosed recently with diverticulitis and admitted and discharged on 01/27 this past did well Friday and then today she has been eating bland diet but started to have sharp left lower quadrant pain again but has been taking Zofran for nausea and continues to have liquid stools despite negative panel for any infectious etiology. Other than what is stated 14 point review of system is negative. Related Data Home Medications Medication Instructions Recorded Confirmed metoclopramide HCl 5 mg tablet 5 mg PO QAC 07/24/24 01/20/25 (Reglan) clonazepam 0.5 mg tablet 0.5 mg PO BID 08/24/24 01/20/25 lamotrigine 25 mg tablet 25 mg PO DAILY 01/20/25 01/20/25 Previous Rx's Medication Instructions Recorded estradiol 0.5 mg tablet 0.5 mg PO DAILY #30 tabs 11/12/24 ondansetron HCl 4 mg tablet 4 mg PO Q8H PRN nausea/vomiting 01/19/25 #30 tabs ciprofloxacin HCl 500 mg tablet 500 mg PO Q12H 7 days #14 tabs 01/27/25 metronidazole 500 mg tablet 500 mg PO Q8H 7 days #21 tabs 01/27/25 ondansetron 4 mg disintegrating 4 mg sublingual Q4HR PRN Nausea 30 01/27/25 tablet days #30 tabs oxycodone 10 mg tablet 10 mg PO Q3HR PRN Pain, Severe 01/27/25 (7-10) 7 days #20 tabs Allergies Allergy/AdvReac Type Severity Reaction Status Date / Time vancomycin Allergy Intermediate ITCHING Verified 01/17/25 08:02 gluten Allergy Celiac Verified 01/17/25 08:02 coconut AdvReac Intermediate Hives Verified 01/17/25 08:02 NSAIDS (Non-Steroidal AdvReac Mild Gastrointestinal Verified 01/17/25 08:02 Anti-Inflamma Upset benzonatate AdvReac Unknown Hives Verified 01/17/25 08:02 [From Ezekiel Dhaliwal] escitalopram [From Lexapro] AdvReac Unknown Hallucinati Verified 01/17/25 08:02 ng Review of Systems Review of Systems ROS Unobtainable: All systems reviewed & are unremarkable except as noted in HPI and below Patient History Medical History Left corneal abrasion Headache Polycystic ovary disease Celiac disease GERD with apnea Hypertension Bipolar disorder Surgical History Status post tubal ligation History of section H/O abdominoplasty H/O oophorectomy H/O gastric sleeve History of cholecystectomy History of appendectomy Social History marital status: household members: significant other and children lives independently: Yes occupational status: employed Smoking Status: Never smoker alcohol intake: current substance use type: marijuana Smoking Status: Never smoker alcohol intake frequency: holidays/special occasions only Exam Narrative Exam Narrative: GENERAL: [44] year old patient appears stated age. Well-developed patient, in mild distress. HEAD: Atraumatic. Normocephalic. EYES: Pupils equal round and reactive. Extraocular motions intact. No scleral icterus. No injection or drainage. ENT: Nose without bleeding, purulent drainage. Throat without erythema, tonsillar hypertrophy or exudate. Airway patent. NECK: Trachea midline. Non tender CARDIOVASCULAR: Regular rate and rhythm without murmurs, gallops, or rubs. RESPIRATORY: Clear to auscultation. Breath sounds equal bilaterally. No wheezes, rales, or rhonchi. GASTROINTESTINAL: Abdomen soft, LLQ TTP but no r/r/q, nondistended. EXTREMITIES: No edema or joint tenderness. BACK: Nontender without deformity or crepitance. No flank tenderness. NEURO: AOx3. SKIN: No rash or erythema of visible areas Initial Vital Signs Initial Vital Signs: Vital Signs Temperature 98 F 01/30/25 18:39 Pulse Rate 76 01/30/25 18:39 Respiratory Rate 24 01/30/25 18:39 Blood Pressure 135/83 01/30/25 18:39 Pulse Oximetry 97 01/30/25 18:39 Oxygen Delivery Method Room Air 01/30/25 18:39 Course Orders Ordered: ED Orders 01/30/25 18:46 EKG-12 Lead Stat 01/30/25 19:15 Complete Blood Count AUTO DIFF Stat Comprehensive Metabolic Panel Stat Lipase Stat 01/30/25 19:22 XR abdomen 3V Stat Ondansetron HCl (Ondansetron 4 Mg/2 Ml Inj) 4 mg IV NOW PRN PRN Reason: Nausea And Vomiting Ondansetron HCl (Ondansetron 4 Mg Odt) 4 mg PO NOW PRN PRN Reason: Nausea And Vomiting Discontinued Medications Hydromorphone HCl (Hydromorphone 1 Mg Inj) 1 mg IV NOW ONE Stop: 01/30/25 19:23 Last Admin: 01/30/25 19:31 Dose: 1 mg Documented By: LAURA Lactated Ringer's (Lactated Ringers) 1,000 mls @ 1,000 mls/hr IV BOLUS ONE Stop: 01/30/25 20:21 Last Admin: 01/30/25 19:30 Dose: 1,000 mls/hr Documented By: LAURA Vital Signs Vital signs: Vital Signs - 8 hr 01/30/25 18:39 01/30/25 19:41 01/30/25 19:42 Temperature 98 F Pulse Rate 76 70 Respiratory Rate 24 Blood Pressure 135/83 167/109 H Pulse Oximetry 97 100 Oxygen Delivery Method Room Air 01/30/25 19:43 01/30/25 19:43 01/30/25 20:00 Temperature Pulse Rate 75 64 Respiratory Rate 18 12 Blood Pressure 195/113 H Pulse Oximetry 99 97 Oxygen Delivery Method 01/30/25 20:01 01/30/25 20:01 01/30/25 20:30 Temperature Pulse Rate 64 75 Respiratory Rate 21 Blood Pressure 138/78 Pulse Oximetry 97 97 Oxygen Delivery Method 01/30/25 21:00 01/30/25 21:00 01/30/25 21:30 Temperature Pulse Rate 62 Respiratory Rate 14 Blood Pressure 122/72 124/91 H Pulse Oximetry 98 Oxygen Delivery Method 01/30/25 21:30 Temperature Pulse Rate 63 Respiratory Rate 14 Blood Pressure Pulse Oximetry 97 Oxygen Delivery Method MDM - Abdominal Pain Lab Data 01/30/25 19:15 01/30/25 19:15 Labs: Lab Results 01/30/25 Range/Units 19:15 WBC 9.3 (4.5-11.0) X10^3/uL RBC 4.42 (4.0-5.2) X10^6/uL Hgb 11.2 L (12.0-16.0) g/dL Hct 34.4 L (36-46) % MCV 77.9 L (80-100) fL MCH 25.4 L (26-34) PG MCHC 32.6 (30-36) % RDW 17.1 H (11.6-14.8) % Plt Count 334 (150-400) X10^3/uL Neut % (Auto) 49.4 L (50-75) % Lymph % (Auto) 39.3 (25-40) % [place] % (Auto) 8.8 (3-14) % Eos % (Auto) 1.4 L (2-4) % Baso % (Auto) 1.1 (0-2) % Neut # (Auto) 4600 (4903-8703) /uL Lymph # (Auto) 3600 (5552-7309) /uL [place] # (Auto) 800 (0-900) /uL Eos # (Auto) 100 (0-450) /uL Baso # (Auto) 100 (0-100) /uL Sodium 137 (137-145) mmol/L Potassium 3.9 (3.4-5.1) mmol/L Chloride 108 H (98-107) mmol/L Carbon Dioxide 19 L (22-32) mmol/L BUN 12 (7-17) mg/dL Creatinine 0.40 L (0.52-1.04) mg/dL Estimated GFR > 60 (>60) mL/min BUN/Creatinine Ratio 30.0 H (6-22) Glucose 99 (70-99) mg/dL Calcium 9.3 (8.4-10.2) mg/dL Total Bilirubin 0.9 (0.2-1.3) mg/dL AST 28 (14-36) IU/L ALT 22 (<35) IU/L Alkaline Phosphatase 73 (38-126) U/L Total Protein 7.2 (6.3-8.2) g/dL Albumin 4.5 (3.5-5.0) g/dL Globulin 2.7 (1.7-4.1) g/dL Albumin/Globulin Ratio 1.7 (1.0-2.8) Lipase 67 (23-300) U/L Imaging Data Abdominal x-ray: Radiologist's Impression: [address] [address] XRay Report Signed Patient: Janet Escobar MR#: [id number] : 1980 Acct:[id number] Age/Sex: 44 / F Date of Service: 01/30/25 Loc: ED Accession Number: [id number] Procedure: XR abdomen 3V Ordering Provider: Ramy Haddad D.O. PROCEDURE: XR ABDOMEN 3V INDICATIONS: abd pain/ nausea/ diverticulitis TECHNIQUE: One view chest and two views of the abdomen were acquired. COMPARISON: [facility], CR, XR ABDOMEN 1V, 03/08/2024, 9:52. FINDINGS: Surgical changes and devices: Cholecystectomy clips Chest: Lungs are clear. Heart size is normal. No pleural effusions. No pneumoperitoneum. Abdomen: Bowel gas pattern is normal. No suspicious calcifications. Visualized solid organ contours appear normal. Bones: No suspicious bony lesions. IMPRESSION: No acute abnormality. Dictated by: Chase Steele M.D. on 01/30/2025 at 19:51 Approved by: Chase Steele M.D. on 01/30/2025 at 19:51 ECG Data Interpretation: Sinus Damir HR 59 [place] 142 QRS [address]-t wave change Unchanged from 01/03/25 [facility] Narrative Medical decision making narrative: All lab work vital signs nurse triage note medication list previous ER visits in all imaging studies reviewed. Abdominal three view did not show any acute process. White count was normal BUN was 12 creatinine is 0.4 T bili and LFTs are normal. Patient given fluids nausea medicines and Dilaudid here for pain control. Differential diagnosis includes diverticulitis, colitis, perforation, obstruction, pancreatitis, pain control, and anxiety. Patient still has pain medicines at home along with finishing her course antibiotics as directed. Keep hydrated and to return with new or worsening symptoms. Discharge Plan Departure Patient Disposition: Home Clinical Impression: Diverticulitis Prescriptions: No Action clonazepam 0.5 mg tablet 0.5 mg PO BID estradiol 0.5 mg tablet 0.5 mg PO DAILY Qty: 30 3RF ondansetron HCl 4 mg tablet 4 mg PO Q8H PRN (Reason: nausea/vomiting) Qty: 30 0RF metoclopramide HCl [Reglan] 5 mg Tablet 5 mg PO QAC Rx Instructions: administer 30 minutes before meals lamotrigine 25 mg tablet 25 mg PO DAILY Rx Instructions: TAKE 1 tablet BY MOUTH daily for 14 days; then increase to 2 tablets daily for 14 days; then increase to 4 tablets daily for one week FOR 30 DAYS -- Filled 12/17/24 oxycodone 10 mg tablet 10 mg PO Q3HR PRN (Reason: Pain, Severe (7-10)) 7 Days Qty: 20 0RF ondansetron 4 mg Tablet,Disintegrating 4 mg sublingual Q4HR PRN (Reason: Nausea) 30 Days Qty: 30 0RF ciprofloxacin HCl 500 mg tablet 500 mg PO Q12H 7 Days Qty: 14 0RF metronidazole 500 mg tablet 500 mg PO Q8H 7 Days Qty: 21 0RF Referrals: Sarah Dunbar MD [Primary Care Provider] - Stand Alone Forms: Patient Portal/API/Survey
--- NOTE | 2025-01-30 19:22 | DI.RAD.S_ITS ---
PROCEDURE: XR ABDOMEN 3V INDICATIONS: abd pain/ nausea/ diverticulitis TECHNIQUE: One view chest and two views of the abdomen were acquired. COMPARISON: [facility], CR, XR ABDOMEN 1V, 03/08/2024, 9:52. FINDINGS: Surgical changes and devices: Cholecystectomy clips Chest: Lungs are clear. Heart size is normal. No pleural effusions. No pneumoperitoneum. Abdomen: Bowel gas pattern is normal. No suspicious calcifications. Visualized solid organ contours appear normal. Bones: No suspicious bony lesions. IMPRESSION: No acute abnormality. Dictated by: Chase Steele M.D. on 01/30/2025 at 19:51 Approved by: Chase Steele M.D. on 01/30/2025 at 19:51
[2025-01-30] MEDS: LACTATED RINGERS 1,000 ML 1000 ML IV (19:30)
[2025-01-30] MEDS: HYDROMORPHONE 1 MG INJ IV ×2 (19:31→21:57)
[2025-01-30 19:43] LABS: Add Manual Diff / Slide Review NO; Basophils Absolute Auto 100 /uL (0-100); Basophils Percent Auto 1.1 % (0-2); Eosinophils Absolute Auto 100 /uL (0-450); Eosinophils Percent Auto 1.4 % (2-4); Hematocrit 34.4 % (36-46); Hemoglobin 11.2 g/dL (12.0-16.0); Lymphocytes Absolute Auto 3600 /uL (1100-4500); Lymphocytes Percent Auto 39.3 % (25-40); Mean Corpuscular HGB Conc 32.6 % (30-36); Mean Corpuscular Hemoglobin 25.4 PG (26-34); Mean Corpuscular Volume 77.9 fL (80-100); Monocytes Absolute Auto 800 /uL (0-900); Monocytes Percent Auto 8.8 % (3-14); Neutrophils Absolute Auto 4600 /uL (1500-7000); Neutrophils Percent Auto 49.4 % (50-75); Platelet Count 334 X10^3/uL (150-400); Red Blood Cell Count 4.42 X10^6/uL (4.0-5.2); Red Cell Distribution Width 17.1 % (11.6-14.8); White Blood Cell Count 9.3 X10^3/uL (4.5-11.0)
[2025-01-30 19:46] LABS: Alanine Aminotransferase 22 IU/L (<35); Albumin 4.5 g/dL (3.5-5.0); Albumin Globulin Ratio 1.7 (1.0-2.8); Alkaline Phosphatase 73 U/L (38-126); Aspartate Aminotransferase 28 IU/L (14-36); Bilirubin Total 0.9 mg/dL (0.2-1.3); Blood Urea Nitrogen 12 mg/dL (7-17); Calcium 9.3 mg/dL (8.4-10.2); Carbon Dioxide 19 mmol/L (22-32); Chloride 108 mmol/L (98-107); Estimated Glomerular Filt Rate > 60 mL/min (>60); Globulin 2.7 g/dL (1.7-4.1); Glucose 99 mg/dL (70-99); HEMOLYSIS < 15 (0-50); Lipase 67 U/L (23-300); Potassium 3.9 mmol/L (3.4-5.1); Sodium 137 mmol/L (137-145); Total Protein 7.2 g/dL (6.3-8.2)
[2025-01-30 21:53] LABS: Appearance Urine UA CLEAR; Bilirubin Urine UA NEGATIVE (NEGATIVE); Color Urine UA YELLOW; Glucose Urine UA NEGATIVE (Negative); Ketones Urine UA TRACE (NEGATIVE); Leukocyte Esterase Urine UA NEGATIVE (NEGATIVE); Nitrite Urine UA NEGATIVE (Negative); Occult Blood Urine UA NEGATIVE (Negative); Protein Urine UA NEGATIVE (Negative); Urobilinogen Urine UA 0.2 E.U./dL (0.2)
[2025-01-30 21:56] LABS: Pregnancy Test Urine Negative (Negative)
[2025-01-30 22:03] LABS: RBC Urine 0-1/HPF (0-5/HPF); Urine Volume 10mL (spun); WBC Urine 0-1/HPF (0-5/HPF)
[2025-01-30 22:04] LABS: Bacteria Urine Occasional (0-1); Culture Indicated Urine Cult Not Indicated; Mucus Urine 1+ (Negative); Squamous Epithelial Cell Urine 1-5 /HPF (0-5/HPF)
== END 2025-01-30 22:21 | disposition home or self-care (01) ==
PROVIDERS: Emergency Provider Family Medicine; PCP Student in an Organized Health Care Education/Training Program
DX: K57.92 Diverticulitis of intestine, part unspecified, without perforation or abscess without bleeding (principal)
CPT/HCPCS: 36415; 74021; 80053; 81001; 81025; 83690; 85025; 93005; 96361; 96374; 96376; 99284; J1171

== ENCOUNTER → 2025-02-07 15:37 | Outpatient (CLI) | payer OTHER, SELFPAY ==
[2025-01-20 10:43] VITALS: BMI 32.3
[2025-02-07 16:13] LABS: Hemoglobin 11.7 g/dL (12.0-16.0); Mean Corpuscular HGB Conc 32.4 % (30-36); Mean Corpuscular Hemoglobin 25.5 PG (26-34); Mean Corpuscular Volume 78.6 fL (80-100); Platelet Count 381 X10^3/uL (150-400); Red Blood Cell Count 4.58 X10^6/uL (4.0-5.2); Red Cell Distribution Width 17.2 % (11.6-14.8); White Blood Cell Count 7.3 X10^3/uL (4.5-11.0)
[2025-02-07 16:35] LABS: Alanine Aminotransferase 24 IU/L (<35); Albumin 4.5 g/dL (3.5-5.0); Albumin Globulin Ratio 1.6 (1.0-2.8); Alkaline Phosphatase 74 U/L (38-126); Aspartate Aminotransferase 25 IU/L (14-36); BUN Creatinine Ratio 21.7 (6-22); Bilirubin Total 1.1 mg/dL (0.2-1.3); Blood Urea Nitrogen 10 mg/dL (7-17); Calcium 9.5 mg/dL (8.4-10.2); Carbon Dioxide 25 mmol/L (22-32); Chloride 106 mmol/L (98-107); Estimated Glomerular Filt Rate > 60 mL/min (>60); Globulin 2.9 g/dL (1.7-4.1); Glucose 112 mg/dL (70-99); HEMOLYSIS < 15 (0-50); Lipase 64 U/L (23-300); Potassium 4.1 mmol/L (3.4-5.1); Sodium 140 mmol/L (137-145); Total Protein 7.4 g/dL (6.3-8.2)
== END ==
PROVIDERS: PCP Student in an Organized Health Care Education/Training Program; Referring Provider Student in an Organized Health Care Education/Training Program; Visit Provider Student in an Organized Health Care Education/Training Program
DX: K57.92 Diverticulitis of intestine, part unspecified, without perforation or abscess without bleeding (principal); R10.9 Unspecified abdominal pain
CPT/HCPCS: 36415; 80053; 83690; 85027

== ENCOUNTER 2025-02-14 07:50 | Emergency (ER) | payer OTHER, SELFPAY ==
[2025-01-20 10:43] VITALS: BMI 32.3
[2025-02-14] VITALS (10 sets, daily range): BP systolic 139–183; BP diastolic 70–106; PULSE 46–99; RESP 20; TEMP 36.7; O2SAT 75–100; BMI 32.3
--- NOTE | 2025-02-14 08:03 | ED_ITS ---
HPI - Abdominal Pain General Chief Complaint: Abdominal Pain Stated Complaint: Possible Diverticulitis flare x 1 day Time Seen by Provider: 02/14/25 07:55 History of Present Illness HPI narrative: Patient here for left lower quadrant pain that is constant sharp pain nonradiating for the past 2 days. Nausea but no vomiting. No black or bloody stools. Patient has history of diverticulitis. Patient treated here last month for the same. Has had EGDs in the past however no colonoscopy. No urinary complaints. Patient drove here, however can get a six horse hitch driver Related Data Home Medications ?Medication ?Instructions ?Recorded ?Confirmed metoclopramide HCl 5 mg tablet 5 mg PO QAC 07/24/24 (Reglan) clonazepam 0.5 mg tablet 0.5 mg PO BID 08/24/2402/07 lamotrigine 25 mg tablet 25 mg PO DAILY 01/20/2511/02 Previous Rx's ?Medication ?Instructions ?Recorded estradiol 0.5 mg tablet 0.5 mg PO DAILY #30 tabs 04/01 ondansetron HCl 4 mg tablet 4 mg PO Q8H PRN nausea/vom iting 01/19/25 #30 tabs ondansetron 4 mg disintegrating 4 mg sublingual Q4HR P RN Nausea 30 01/27/25 tablet days #30 tabs lisinopril 5 mg tablet 5 mg PO DAILY #30 tabs 02/07 oxycodone 5 mg tablet 10 mg (2 x 5 mg) PO BID PRN pain 02/07/25 #40 tabs ciprofloxacin HCl 500 mg tablet 500 mg PO BID #14 tabs 02/14/25 (Cipro) metoclopramide HCl 10 mg tablet 10 mg PO Q6H PRN nause a and 02/14/25 vomiting #20 tabs metronidazole 500 mg tablet 500 mg PO TID #21 tabs 06/02 oxycodone-acetaminophen 5 mg-325 1 tab PO Q4-6H PRN pa in #20 tabs 02/14/25 mg tablet (Percocet) Allergies Allergy/AdvReac Type Severity Reaction Status Date / Time vancomycin Allergy Intermediate ITCHING Verified 02/14/25 08:02 gluten Allergy Celiac Verified 02/14/25 08:02 coconut AdvReac Intermediate Hives Verified 02/14/25 08:02 NSAIDS (Non-Steroidal AdvReac Mild Gastrointestinal Verified 02/14/25 08:02 Anti-Inflamma Upset benzonatate (From Tessalon AdvReac Unknown Hives Verified 02/14/25 08:02 Perles) escitalopram (From Lexapro) AdvReac Unknown Hallucinati Verified 02/14/25 08:02 ng Review of Systems Review of Systems Narrative: GENERAL: Negative chills, fatigue, malaise, fever, sweats. HEENT: Negative sinus pain, ear pain, sore throat RESPIRATORY: Negative dyspnea, cough CARDIOVASCULAR: Negative chest pain, palpitations GASTROINTESTINAL: Negative vomiting, positive nausea, abdominal pain : Negative dysuria, frequency, hematuria MUSCULOSKELETAL: Negative muscle or bony pain SKIN: Negative rash, skin lesions NEUROLOGIC: Negative weakness, numbness ROS Unobtainable: All systems reviewed & are unremarkable except as noted in HPI and below Patient History Medical History Left corneal abrasion Headache Polycystic ovary disease Celiac disease GERD with apnea Hypertension Bipolar disorder Surgical History Status post tubal ligation History of section H/O abdominoplasty H/O oophorectomy H/O gastric sleeve History of cholecystectomy History of appendectomy Social History marital status: household members: significant other and children lives independently: Yes occupational status: employed alcohol intake: current substance use type: marijuana alcohol intake frequency: holidays/special occasions only Exam Narrative Exam Narrative: GENERAL: in no distress, not toxic not dyspneic HEAD: Normocephalic. EYES: Pupils equal round ENT: Mucous membranes moist. NECK: Trachea midline. CARDIOVASCULAR: Regular rate and rhythm RESPIRATORY: Clear to auscultation. Breath sounds equal bilaterally. No wheezes, rales, or rhonchi. GASTROINTESTINAL: Abdomen soft, reproducible left lower quadrant tenderness. No peritoneal signs no guarding or rebound. No CVA tenderness. Bowel sounds are present. EXTREMITIES: No gross deformities. BACK: No flank tenderness. NEURO: AOx4. Clear speech SKIN: Warm and dry PSYCH: Not anxious, is cooperative Initial Vital Signs Initial Vital Signs: Vital Signs Pulse Rate 46 L 02/14/25 07:56 Blood Pressure 165/106 H 02/14/25 07:56 Pulse Oximetry 99 02/14/25 07:56 Course Orders Ordered: Discontinued Medications Ciprofloxacin (Ciprofloxacin 250 Mg Tablet) 500 mg PO NOW ONE Stop: 02/14/25 09:33 Last Admin: 02/14/25 09:45 Dose: 500 mg Documented By: LM Hydromorphone HCl (Hydromorphone 1 Mg Inj) 1 mg IV NOW ONE Stop: 02/14/25 08:05 Last Admin: 02/14/25 08:35 Dose: 1 mg Documented By: LM Sodium Chloride (Normal Saline 0.9%) 1,000 mls @ 1,000 mls/hr IV BOLUS ONE Stop: 02/14/25 09:00 Last Infusion: 02/14/25 09:41 Dose: Infused Documented By: Admin: 02/14/25 08:36 Dose: 1,000 mls/hr Documented By: EDNA Metronidazole (Metronidazole 500 Mg Tablet) 500 mg PO NOW ONE Stop: 02/14/25 09:34 Last Admin: 02/14/25 09:45 Dose: 500 mg Documented By: LM Ondansetron HCl (Ondansetron 4 Mg/2 Ml Inj) 4 mg IV NOW ONE Stop: 02/14/25 08:02 Last Admin: 02/14/25 08:35 Dose: 4 mg Documented By: LM Oxycodone/Acetaminophen (Oxycodone/Acetaminophen 5/325 Tablet) 2 tab PO NOW ONE Stop: 02/14/25 09:49 Last Admin: 02/14/25 09:54 Dose: 2 tab Documented By: LM Vital Signs Vital signs: Vital Signs - 8 hr 02/14/25 08:02 Temperature 98.1 F Pulse Rate 73 Respiratory Rate 20 Blood Pressure 148/89 H Pulse Oximetry 100 Oxygen Delivery Method Room Air MDM - Abdominal Pain Lab Data 02/14/25 08:45 02/14/25 08:45 Labs: Lab Results 02/14/25 Range/Units 08:45 WBC 8.6 (4.5-11.0) X10^3/uL RBC 4.39 (4.0-5.2) X10^6/uL Hgb 11.0 L (12.0-16.0) g/dL Hct 34.4 L (36-46) % MCV 78.5 L (80-100) fL MCH 25.1 L (26-34) PG MCHC 31.9 (30-36) % RDW 16.9 H (11.6-14.8) % Plt Count 313 (150-400) X10^3/uL Neut % (Auto) 71.5 (50-75) % Lymph % (Auto) 19.2 L (25-40) % [place] % (Auto) 7.4 (3-14) % Eos % (Auto) 1.3 L (2-4) % Baso % (Auto) 0.6 (0-2) % Neut # (Auto) 6100 (6650-8391) /uL Lymph # (Auto) 1600 (9943-8333) /uL [place] # (Auto) 600 (0-900) /uL Eos # (Auto) 100 (0-450) /uL Baso # (Auto) 0 (0-100) /uL Sodium 139 (137-145) mmol/L Potassium 4.4 (3.4-5.1) mmol/L Chloride 107 (98-107) mmol/L Carbon Dioxide 22 (22-32) mmol/L BUN 10 (7-17) mg/dL Creatinine 0.50 L (0.52-1.04) mg/dL Estimated GFR > 60 (>60) mL/min BUN/Creatinine Ratio 20.0 (6-22) Glucose 117 H (70-99) mg/dL Calcium 9.6 (8.4-10.2) mg/dL Total Bilirubin 1.0 (0.2-1.3) mg/dL AST 20 (14-36) IU/L ALT 17 (<35) IU/L Alkaline Phosphatase 64 (38-126) U/L Total Protein 6.7 (6.3-8.2) g/dL Albumin 4.2 (3.5-5.0) g/dL Globulin 2.5 (1.7-4.1) g/dL Albumin/Globulin Ratio 1.7 (1.0-2.8) Lipase 92 (23-300) U/L Imaging Data CT scan - abdomen/pelvis: Radiologist's Impression: [address] [address] [address] Scan Report Signed Patient: Janet Escobar MR#: [id number] : 1980 Acct:[id number] Age/Sex: 44 / F Date of Service: 02/14/25 Loc: ED Accession Number: [id number] Procedure: CT abdomen pelvis w con Ordering Provider: Nash Desir MD PROCEDURE: CT ABDOMEN PELVIS W CON INDICATIONS: IV contrast only/left lower quadrant pain TECHNIQUE: After the administration of intravenous contrast, axial sections acquired from the lung bases to the pubic symphysis. Coronal and sagittal reformats were performed. For radiation dose reduction, the following was used: automated exposure control, adjustment of mA and/or kV according to patient size. COMPARISON: Merged With [facility], CT, CT ABDOMEN PELVIS W CON, 01/23/2025, 13:20. FINDINGS: Image quality: Diagnostic. Lower Chest: No significant findings. ABDOMEN: Liver: No solid mass. Mild hepatic steatosis. Gallbladder: Gallbladder is surgically absent. Biliary ducts: No biliary dilation. Pancreas: No ductal dilation. Spleen: Size is within normal limits. Cystic structure with peripheral calcifications is again seen unchanged in size and appearance from recent study. Adrenal Glands: No adrenal nodules. Kidneys and Ureters: No hydronephrosis. No solid mass. No complex renal cystic lesion which requires follow up. Stomach and Bowel: No evidence of bowel obstruction. No gastric or small bowel wall thickening. Colonic wall thickening with mild pericolonic fat stranding involving proximal sigmoid colon in left lower quadrant is seen. There is also narrowing of the lumen in this area concerning for diverticulitis. No abscess collection. No extra luminal air to suggest perforation. Peritoneum: No abnormal intraperitoneal fluid. No free air. Ventral Wall: Small umbilical hernia is again seen containing fat only. Diastasis of the rectus muscle. Abdominal Nodes: No retroperitoneal or mesenteric adenopathy by size criteria. Vessels: Aorta and inferior vena cava are normal in size. PELVIS: Pelvic Organs: Unremarkable. Bladder: No bladder wall thickening, accounting for underdistention. Pelvic Nodes: No enlarged lymph nodes. Miscellaneous: No inguinal hernias are seen. Bones: No aggressive osseous abnormality. IMPRESSION: 1. Finding may represent proximal sigmoid colon diverticulitis with interval slightly increased wall thickening and edema compared to 01/23/2025 study. There is no abscess collection. No signs of perforation. 2. Other chronic findings are not significantly changed from previous study. Dictated by: Navarro Ceballos M.D. on 02/14/2025 at 8:51 Approved by: Navarro Ceballos M.D. on 02/14/2025 at 8:59 [facility] Narrative Medical decision making narrative: Patient here for left lower quadrant pain that is constant sharp pain nonradiating for the past 2 days. Nausea but no vomiting. No black or bloody stools. Patient has history of diverticulitis. Patient treated here last month for the same. Has had EGDs in the past however no colonoscopy. No urinary complaints. Patient drove here, however can get a six horse hitch driver After history and exam, CBC CMP urinalysis CT abdomen pelvis Zofran normal saline Dilaudid [facility] Medical records reviewed: January 20, 2025 ER visit here. Differential considered: Includes but not limited to diverticulitis abdominal abscess colitis UTI kidney stone pyelonephritis bowel obstruction Lab Test results independently reviewed as above. Pertinent findings: WBC 8.6 Imaging studies independently reviewed: CT abdomen pelvis sigmoid diverticulitis Consultations: None indicated at this time Re-evaluations: 9:28 a.m.. Updated patient results. Pain is controlled. She does have established GI already to follow up with and get colonoscopy. Return precautions reviewed. She is calling for a six horse hitch driver. Patient recalls Cipro and Flagyl with the antibiotics that worked for her Discussion: Appropriate for discharge home. Exam is reassuring. Return precautions reviewed patient. Patient has established GI provider to follow up with. It is scheduled. Patient has a six horse hitch driver. Return precautions reviewed. She desires discharge home. Diagnosis: Sigmoid diverticulitis Discharge Plan Departure Patient Disposition: Home Clinical Impression: Diverticulitis Instructions: DI for Diverticulitis Activity Restrictions/Additional Instructions: No driving operating machinery today or when taking prescribed pain medication. Please see your gastroenterology services as scheduled for colonoscopy. Return if worse if any questions or concerns. You have been prescribed Percocet as well as Cipro and Flagyl and Reglan. Work note has been provided for you. Return if worse if any questions or concerns Prescriptions: New metronidazole 500 mg tablet 500 mg PO TID Qty: 21 0RF ciprofloxacin HCl [Cipro] 500 mg tablet 500 mg PO BID Qty: 14 0RF oxycodone-acetaminophen [Percocet] 5-325 mg tablet 1 tab PO Q4-6H PRN (Reason: pain) Qty: 20 0RF metoclopramide HCl 10 mg tablet 10 mg PO Q6H PRN (Reason: nausea and vomiting) Qty: 20 0RF No Action lisinopril 5 mg tablet 5 mg PO DAILY Qty: 30 3RF oxycodone 5 mg tablet 10 mg PO BID PRN (Reason: pain) Qty: 40 0RF clonazepam 0.5 mg tablet 0.5 mg PO BID estradiol 0.5 mg tablet 0.5 mg PO DAILY Qty: 30 3RF ondansetron HCl 4 mg tablet 4 mg PO Q8H PRN (Reason: nausea/vomiting) Qty: 30 0RF metoclopramide HCl [Reglan] 5 mg Tablet 5 mg PO QAC Rx Instructions: administer 30 minutes before meals lamotrigine 25 mg tablet 25 mg PO DAILY Rx Instructions: TAKE 1 tablet BY MOUTH daily for 14 days; then increase to 2 tablets daily for 14 days; then increase to 4 tablets daily for one week FOR 30 DAYS -- Filled 12/17/24 ondansetron 4 mg Tablet,Disintegrating 4 mg sublingual Q4HR PRN (Reason: Nausea) 30 Days Qty: 30 0RF Referrals: Sarah Dunbar MD [Primary Care Provider, Family Practice] Stand Alone Forms: Patient Portal/API, Work Release Note
[2025-02-14] MEDS: ONDANSETRON 4 MG/2 ML INJ IV (08:35)
[2025-02-14] MEDS: HYDROMORPHONE 1 MG INJ IV (08:35)
[2025-02-14] MEDS: SODIUM CHLORIDE 0.9% 1,000 ML 1000 ML IV (08:36)
[2025-02-14 08:59] LABS: Add Manual Diff / Slide Review NO; Basophils Absolute Auto 0 /uL (0-100); Basophils Percent Auto 0.6 % (0-2); Eosinophils Absolute Auto 100 /uL (0-450); Eosinophils Percent Auto 1.3 % (2-4); Hematocrit 34.4 % (36-46); Lymphocytes Absolute Auto 1600 /uL (1100-4500); Lymphocytes Percent Auto 19.2 % (25-40); Mean Corpuscular HGB Conc 31.9 % (30-36); Mean Corpuscular Hemoglobin 25.1 PG (26-34); Mean Corpuscular Volume 78.5 fL (80-100); Monocytes Absolute Auto 600 /uL (0-900); Monocytes Percent Auto 7.4 % (3-14); Neutrophils Absolute Auto 6100 /uL (1500-7000); Neutrophils Percent Auto 71.5 % (50-75); Platelet Count 313 X10^3/uL (150-400); Red Blood Cell Count 4.39 X10^6/uL (4.0-5.2); Red Cell Distribution Width 16.9 % (11.6-14.8); White Blood Cell Count 8.6 X10^3/uL (4.5-11.0)
[2025-02-14 09:08] LABS: Alanine Aminotransferase 17 IU/L (<35); Albumin 4.2 g/dL (3.5-5.0); Albumin Globulin Ratio 1.7 (1.0-2.8); Alkaline Phosphatase 64 U/L (38-126); Aspartate Aminotransferase 20 IU/L (14-36); Blood Urea Nitrogen 10 mg/dL (7-17); Calcium 9.6 mg/dL (8.4-10.2); Carbon Dioxide 22 mmol/L (22-32); Chloride 107 mmol/L (98-107); Estimated Glomerular Filt Rate > 60 mL/min (>60); Globulin 2.5 g/dL (1.7-4.1); Glucose 117 mg/dL (70-99); HEMOLYSIS < 15 (0-50); Lipase 92 U/L (23-300); Potassium 4.4 mmol/L (3.4-5.1); Sodium 139 mmol/L (137-145); Total Protein 6.7 g/dL (6.3-8.2)
[2025-02-14] MEDS: CIPROFLOXACIN 250 MG TABLET 500 MG PO (09:45)
[2025-02-14] MEDS: metroNIDAZOLE 500 MG TABLET PO (09:45)
[2025-02-14] MEDS: OXYCODONE/ACETAMINOPHEN 5/325 TABLET 2 TAB PO (09:54)
== END 2025-02-14 10:05 | disposition home or self-care (01) ==
PROVIDERS: Emergency Provider Emergency Medicine; PCP Student in an Organized Health Care Education/Training Program
DX: K57.92 Diverticulitis of intestine, part unspecified, without perforation or abscess without bleeding (principal)
CPT/HCPCS: 36415; 74177; 80053; 83690; 85025; 96361; 96374; 96375; 99284; J1171; J2405; Q9967

== ENCOUNTER 2025-02-15 17:09 | Observation (INO) | payer OTHER, SELFPAY ==
[2025-01-20 10:43] VITALS: BMI 32.3
[2025-02-15] VITALS (9 sets, daily range): BP systolic 132–186; BP diastolic 74–90; PULSE 79–109; RESP 22; TEMP 36.2; O2SAT 97–100; BMI 32.3
--- NOTE | 2025-02-15 19:29 | ED_ITS ---
HPI - General Adult General Chief complaint: Abdominal Pain Stated complaint: PT stated has Diverticulitis flare up Time Seen by Provider: 02/15/25 18:47 Source: patient Mode of arrival: Ambulatory History of Present Illness HPI narrative: 44-year-old female with left-sided abdominal pain diagnosed with diverticulitis yesterday, describes ciprofloxacin and metronidazole antibiotics, keeping antibiotics down, has increasing left-sided pain not controlled with oral pain medication regimen. She has been taking her discharge medication of oxycodone 5/325 strength. No fevers or chills. She is not getting better, in fact pain is significantly worse. She is concerned that she might have complication. No black or red stools. Denies nausea or vomiting. Denies feeling feverish. Related Data Home Medications ?Medication ?Instructions ?Recorded ?Confirmed metoclopramide HCl 5 mg tablet 5 mg PO QAC 07/24/24 (Reglan) clonazepam 0.5 mg tablet 0.5 mg PO BID 08/24/2402/16 lamotrigine 25 mg tablet 100 mg PO DAILY 01/20/2508/02 Previous Rx's ?Medication ?Instructions ?Recorded estradiol 0.5 mg tablet 0.5 mg PO DAILY #30 tabs 04/01 ondansetron HCl 4 mg tablet 4 mg PO Q8H PRN nausea/vom iting 01/19/25 #30 tabs ondansetron 4 mg disintegrating 4 mg sublingual Q4HR P RN Nausea 30 01/27/25 tablet days #30 tabs lisinopril 5 mg tablet 5 mg PO DAILY #30 tabs 02/07 oxycodone 5 mg tablet 10 mg (2 x 5 mg) PO BID PRN pain 02/07/25 #40 tabs ciprofloxacin HCl 500 mg tablet 500 mg PO BID #14 tabs 02/14/25 (Cipro) metoclopramide HCl 10 mg tablet 10 mg PO Q6H PRN nause a and 02/14/25 vomiting #20 tabs metronidazole 500 mg tablet 500 mg PO TID #21 tabs 06/02 oxycodone-acetaminophen 5 mg-325 1 tab PO Q4-6H PRN pa in #20 tabs 02/14/25 mg tablet (Percocet) Allergies Allergy/AdvReac Type Severity Reaction Status Date / Time vancomycin Allergy Intermediate ITCHING Verified 02/15/25 17:15 gluten Allergy Celiac Verified 02/15/25 17:15 coconut AdvReac Intermediate Hives Verified 02/15/25 17:15 NSAIDS (Non-Steroidal AdvReac Mild Gastrointestinal Verified 02/15/25 17:15 Anti-Inflamma Upset benzonatate (From Tessalon AdvReac Unknown Hives Verified 02/15/25 17:15 Perles) escitalopram (From Lexapro) AdvReac Unknown Hallucinati Verified 02/15/25 17:15 ng Patient History Medical History Left corneal abrasion Headache Polycystic ovary disease Celiac disease GERD with apnea Hypertension Bipolar disorder Surgical History H/O: hysterectomy Status post tubal ligation History of section H/O abdominoplasty H/O oophorectomy H/O gastric sleeve History of cholecystectomy History of appendectomy Social History marital status: household members: significant other and children lives independently: Yes occupational status: employed Smoking Status: Never smoker alcohol intake: never substance use type: marijuana alcohol intake frequency: holidays/special occasions only Exam Narrative Exam Narrative: GENERAL: Well-developed patient, in mild distress. HEAD: Atraumatic. Normocephalic. EYES: Pupils equal round and reactive. Extraocular motions intact. No scleral icterus. No injection or drainage. ENT: Nose without bleeding, purulent drainage. Throat without erythema, tonsillar hypertrophy or exudate. Airway patent. NECK: Trachea midline. Non tender CARDIOVASCULAR: Regular rate and rhythm without murmurs, gallops, or rubs. RESPIRATORY: Clear to auscultation. Breath sounds equal bilaterally. No wheezes, rales, or rhonchi. GASTROINTESTINAL: Tenderness to left lower quadrant, no distention, no rebound tenderness. EXTREMITIES: No edema or joint tenderness. BACK: Nontender without deformity or crepitance. No flank tenderness. NEURO: AOx3. Motor functions grossly nonfocal. SKIN: No rash or erythema of visible areas Initial Vital Signs Initial Vital Signs: Vital Signs Temperature 97.1 F L 02/15/25 17:13 Pulse Rate 79 02/15/25 17:13 Respiratory Rate 22 02/15/25 17:13 Blood Pressure 186/90 H 02/15/25 17:13 Pulse Oximetry 100 02/15/25 17:13 Oxygen Delivery Method Room Air 02/15/25 17:13 Course Orders Ordered: ED Orders 02/15/25 20:02 CT abdomen pelvis w con Stat 02/15/25 21:15 Complete Blood Count AUTO DIFF Stat Comprehensive Metabolic Panel Stat Lactate (Lactic Acid) Stat Clonazepam (Clonazepam 0.5 Mg Tablet) 0.5 mg PO BID BENITO Enoxaparin Sodium (Enoxaparin 40 Mg/0.4 Ml Syringe) 40 mg SUBCUT DAILY BENITO Hydromorphone HCl (Hydromorphone 0.5 Mg Inj) 0.5 mg IV Q2H PRN PRN Reason: Pain, Severe (7-10) Last Admin: 02/16/25 02:30 Dose: 0.5 mg Documented By: AB Metronidazole (Flagyl) 500 mg in 100 mls @ 100 mls/hr IV Q8H BENITO Ciprofloxacin (Cipro) 400 mg in 200 mls @ 200 mls/hr IV Q12H BENITO Naloxone HCl (Naloxone 0.4 Mg/Ml Vial) 0.2 mg IV Q2MIN PRN PRN Reason: Opiate Reversal (Lamotrigine 25 Mg (Tablet)) 25 mg PO DAILY [facility] Oxycodone HCl (Oxycodone Ir 5 Mg Tablet) 10 mg PO BID PRN PRN Reason: pain Pantoprazole Sodium (Pantoprazole 40 Mg Vial) 20 mg IV DAILY [facility] Discontinued Medications Hydromorphone HCl (Hydromorphone 0.5 Mg Inj) 0.5 mg IV NOW ONE Stop: 02/15/25 19:40 Last Admin: 02/15/25 21:21 Dose: 0.5 mg Documented By: NICOLAS Hydromorphone HCl (Hydromorphone 1 Mg Inj) 1 mg IV NOW ONE Stop: 02/15/25 22:47 Last Admin: 02/15/25 23:06 Dose: 1 mg Documented By: NICOLAS Ketamine HCl 50 mg/ Sodium (Chloride) 250.5 mls @ 500 mls/hr IV NOW ONE Stop: 02/16/25 00:15 Last Infusion: 02/16/25 00:32 Dose: Infused Documented By: Admin: 02/16/25 00:01 Dose: 500 mls/hr Documented By: Ciprofloxacin (Cipro) 400 mg in 200 mls @ 200 mls/hr IV NOW ONE Stop: 02/16/25 02:11 Last Admin: 02/16/25 02:52 Dose: 200 mls/hr Documented By: PEG Metronidazole (Flagyl) 500 mg in 100 mls @ 100 mls/hr IV NOW ONE Stop: 02/16/25 02:11 Last Admin: 02/16/25 01:45 Dose: 100 mls/hr Documented By: Vital Signs Vital signs: Vital Signs - 8 hr 02/15/25 20:55 02/15/25 21:00 02/15/25 21:30 Pulse Rate 91 H 83 86 Blood Pressure Pulse Oximetry 100 100 100 Oxygen Delivery Method 02/15/25 22:00 02/15/25 22:30 02/15/25 23:00 Pulse Rate 85 92 H 92 H Blood Pressure Pulse Oximetry 97 97 98 Oxygen Delivery Method 02/15/25 23:09 02/15/25 23:09 02/15/25 23:30 Pulse Rate 81 109 H Blood Pressure 132/79 Pulse Oximetry 100 98 Oxygen Delivery Method 02/15/25 23:30 02/16/25 00:00 02/16/25 00:00 Pulse Rate 94 H Blood Pressure 134/74 146/86 H Pulse Oximetry 100 Oxygen Delivery Method Room Air 02/16/25 00:30 02/16/25 00:30 02/16/25 00:42 Pulse Rate 88 92 H Blood Pressure 149/111 H Pulse Oximetry 98 98 Oxygen Delivery Method 02/16/25 00:42 02/16/25 01:00 02/16/25 01:01 Pulse Rate 108 H Blood Pressure 182/88 H 121/79 Pulse Oximetry 98 Oxygen Delivery Method Room Air 02/16/25 01:01 Pulse Rate 100 H Blood Pressure Pulse Oximetry 97 Oxygen Delivery Method Medical Decision Making Lab Data Lab results reviewed: Yes I reviewed the patient's lab results. Lab results narrative: White blood cell count 16196, hemoglobin 11.2, platelets adequate. Glucose 93. BUN 10 with creatinine 0.5 normal renal function. Serum CO2 25 not decreased. Electrolytes unremarkable. Liver functions normal. Lactate 1.2 normal. Urine dip negative. 02/15/25 21:15 02/15/25 21:15 Labs: Lab Results 02/15/25 Range/Units 21:15 WBC 12.6 H (4.5-11.0) X10^3/uL RBC 4.42 (4.0-5.2) X10^6/uL Hgb 11.2 L (12.0-16.0) g/dL Hct 34.0 L (36-46) % MCV 77.0 L (80-100) fL MCH 25.3 L (26-34) PG MCHC 32.8 (30-36) % RDW 16.9 H (11.6-14.8) % Plt Count 323 (150-400) X10^3/uL Neut % (Auto) 71.9 (50-75) % Lymph % (Auto) 17.0 L (25-40) % [place] % (Auto) 9.5 (3-14) % Eos % (Auto) 1.0 L (2-4) % Baso % (Auto) 0.6 (0-2) % Neut # (Auto) 9100 H (3306-1373) /uL Lymph # (Auto) 2100 (2476-6282) /uL [place] # (Auto) 1200 H (0-900) /uL Eos # (Auto) 100 (0-450) /uL Baso # (Auto) 100 (0-100) /uL Sodium 140 (137-145) mmol/L Potassium 3.6 (3.4-5.1) mmol/L Chloride 105 (98-107) mmol/L Carbon Dioxide 25 (22-32) mmol/L BUN 10 (7-17) mg/dL Creatinine 0.50 L (0.52-1.04) mg/dL Estimated GFR > 60 (>60) mL/min BUN/Creatinine Ratio 20.0 (6-22) Glucose 93 (70-99) mg/dL Lactate 1.2 (0.7-2.1) mmol/L Calcium 9.4 (8.4-10.2) mg/dL Total Bilirubin 1.0 (0.2-1.3) mg/dL AST 20 (14-36) IU/L ALT 15 (<35) IU/L Alkaline Phosphatase 75 (38-126) U/L Total Protein 7.2 (6.3-8.2) g/dL Albumin 4.4 (3.5-5.0) g/dL Globulin 2.8 (1.7-4.1) g/dL Albumin/Globulin Ratio 1.6 (1.0-2.8) Urine Dip Bedside Urine Glucose Negative Bedside Urine Bilirubin - Negative Bedside Urine Ketone +/- 5 Urine Specific [place] 1.005 Bedside Urine Occult Blood - Negative Bedside Urine pH 8.5 Bedside Urine Protein - Negative Bedside Urine Urobilinogen - Negative Bedside Urine Nitrite - Negative Bedside Urine Leukocytes - Negative Esterase Point of care testing: Urine Dip Bedside Urine Glucose Negative Bedside Urine Bilirubin - Negative Bedside Urine Ketone +/- 5 Urine Specific [place] 1.005 Bedside Urine Occult Blood - Negative Bedside Urine pH 8.5 Bedside Urine Protein - Negative Bedside Urine Urobilinogen - Negative Bedside Urine Nitrite - Negative Bedside Urine Leukocytes - Negative Esterase Imaging Data CT scan - abdomen/pelvis: Radiologist's Impression: [address] [address] [address] Scan Report Signed Patient: Janet Escobar MR#: [id number] : 1980 Acct:[id number] Age/Sex: 44 / F Date of Service: 02/15/25 Loc: ED Accession Number: [id number] Procedure: CT abdomen pelvis w con Ordering Provider: Nathan Dickerson MD PROCEDURE: CT ABDOMEN PELVIS W CON INDICATIONS: LLQ pain, recent dx divertic TECHNIQUE: After the administration of intravenous contrast, axial sections acquired from the lung bases to the pubic symphysis. Coronal and sagittal reformats were performed. For radiation dose reduction, the following was used: automated exposure control, adjustment of mA and/or kV according to patient size. COMPARISON: [facility], CT, CT ABDOMEN PELVIS W CON, 02/14/2025, 8:28. FINDINGS: Image quality: Diagnostic. Lower Chest: Minor right middle lobe patchy ground-glass nodules. No dense consolidation or effusion. ABDOMEN: Liver: No solid mass. Gallbladder: Surgically absent. Biliary ducts: Appropriate biliary tree caliber post cholecystectomy. Pancreas: No ductal dilation. Spleen: Circumscribed splenic cyst in the superior pole with scattered mural calcifications. Normal spleen size. Adrenal Glands: No adrenal nodules. Kidneys and Ureters: Symmetric enhancement. No nephrolithiasis or hydronephrosis. No visible mass or cyst requiring follow up. No hydroureter. Stomach and Bowel: Compared to the study from about 36 hours ago, there has been slight interval increase in wall thickening involving the proximal sigmoid colon and increase and acute pericolonic inflammation. There is new fascial thickening along the left pelvis. No free air. Small amount dependent fluid is now present in pelvis. Surgical changes of gastric sleeve creation. A few mildly prominent small bowel loops containing air and fluid are noted, possibly reactive ileus. Peritoneum: No free intraperitoneal air. Ventral Wall: Rectus diastasis. Postsurgical changes to the anterior abdominal wall. Abdominal Nodes: No retroperitoneal or mesenteric adenopathy by size criteria. Vessels: The abdominal aorta, IVC, and portal vein are of normal caliber. PELVIS: Pelvic Organs: Absent uterus. Ovarian tissue is not well seen.. Bladder: No stones or wall thickening. Pelvic Nodes: No enlarged lymph nodes. Miscellaneous: No inguinal hernias are seen. Bones: No aggressive osseous abnormality. Mild degenerative lower lumbar spine changes. IMPRESSION: Recurrent mild inflammation in the proximal sigmoid suggesting acute on chronic diverticulitis. No evidence of complication such as perforation or abscess. No other changes. Dictated by: Jamee Marcano M.D. on 02/15/2025 at 22:23 Approved by: Jamee Marcano M.D. on 02/15/2025 at 22:30 [facility] Narrative Medical decision making narrative: 44-year-old female with left-sided diverticulitis diagnosed by CT scan yesterday having increasing pain despite taking oral antibiotics and oral analgesics. Afebrile, sirs screen negative. Tenderness left lower quadrant. IV Dilaudid. Repeat labs pending. Patient wants repeat imaging, concerned that she might have complication. CT abdomen and pelvis ordered. Patient is status post unilateral oophorectomy, also has had previous hysterectomy. CT abdomen and pelvis. IMPRESSION: Recurrent mild inflammation in the proximal sigmoid suggesting acute on chronic diverticulitis. No evidence of complication such as perforation or abscess. No other changes. Absent uterus noted on CT imaging. See radiology report. Still having pain, repeat Dilaudid. Still having pain, says this is the worst ever, does not feel like she can go home. Can not take NSAIDs due to prior gastric surgery. Requests admission. We will contact hospitalist. [id number], case discussed with hospitalist Dr. Pandey who recommends further attempts at analgesia in ED then further Rx outpatient management. Patient willing to try IV ketamine for analgesic effect. Order placed for IV 50 mg ketamine in a 250 cc saline bag, to infuse over 30 minutes. 0045, post-ketamine still having LLQ abdominal pain, will re-consult hospitalist. 0115, case discussed with hospitalist Dr. Pandey, will admit for further pain control. Give IV Cipro/Flagyl next doses. Ordered. Accepts for admission. Discharge Plan Departure Patient Disposition: Admitted as Observation Clinical Impression: Diverticulitis, Abdominal pain Admit Date/Time: 02/16/25 01:14 Admit Provider: Bob Mckeon
--- NOTE | 2025-02-15 20:02 | DI.CT.S_ITS ---
PROCEDURE: CT ABDOMEN PELVIS W CON INDICATIONS: LLQ pain, recent dx divertic TECHNIQUE: After the administration of intravenous contrast, axial sections acquired from the lung bases to the pubic symphysis. Coronal and sagittal reformats were performed. For radiation dose reduction, the following was used: automated exposure control, adjustment of mA and/or kV according to patient size. COMPARISON: [facility], CT, CT ABDOMEN PELVIS W CON, 02/14/2025, 8:28. FINDINGS: Image quality: Diagnostic. Lower Chest: Minor right middle lobe patchy ground-glass nodules. No dense consolidation or effusion. ABDOMEN: Liver: No solid mass. Gallbladder: Surgically absent. Biliary ducts: Appropriate biliary tree caliber post cholecystectomy. Pancreas: No ductal dilation. Spleen: Circumscribed splenic cyst in the superior pole with scattered mural calcifications. Normal spleen size. Adrenal Glands: No adrenal nodules. Kidneys and Ureters: Symmetric enhancement. No nephrolithiasis or hydronephrosis. No visible mass or cyst requiring follow up. No hydroureter. Stomach and Bowel: Compared to the study from about 36 hours ago, there has been slight interval increase in wall thickening involving the proximal sigmoid colon and increase and acute pericolonic inflammation. There is new fascial thickening along the left pelvis. No free air. Small amount dependent fluid is now present in pelvis. Surgical changes of gastric sleeve creation. A few mildly prominent small bowel loops containing air and fluid are noted, possibly reactive ileus. Peritoneum: No free intraperitoneal air. Ventral Wall: Rectus diastasis. Postsurgical changes to the anterior abdominal wall. Abdominal Nodes: No retroperitoneal or mesenteric adenopathy by size criteria. Vessels: The abdominal aorta, IVC, and portal vein are of normal caliber. PELVIS: Pelvic Organs: Absent uterus. Ovarian tissue is not well seen.. Bladder: No stones or wall thickening. Pelvic Nodes: No enlarged lymph nodes. Miscellaneous: No inguinal hernias are seen. Bones: No aggressive osseous abnormality. Mild degenerative lower lumbar spine changes. IMPRESSION: Recurrent mild inflammation in the proximal sigmoid suggesting acute on chronic diverticulitis. No evidence of complication such as perforation or abscess. No other changes. Dictated by: Jamee Marcano M.D. on 02/15/2025 at 22:23 Approved by: Jamee Marcano M.D. on 02/15/2025 at 22:30
[2025-02-15] MEDS: HYDROMORPHONE 0.5 MG INJ IV (21:21)
[2025-02-15 21:28] LABS: Add Manual Diff / Slide Review NO; Basophils Absolute Auto 100 /uL (0-100); Basophils Percent Auto 0.6 % (0-2); Eosinophils Absolute Auto 100 /uL (0-450); Hemoglobin 11.2 g/dL (12.0-16.0); Lymphocytes Absolute Auto 2100 /uL (1100-4500); Mean Corpuscular HGB Conc 32.8 % (30-36); Mean Corpuscular Hemoglobin 25.3 PG (26-34); Monocytes Absolute Auto 1200 /uL (0-900); Monocytes Percent Auto 9.5 % (3-14); Neutrophils Absolute Auto 9100 /uL (1500-7000); Neutrophils Percent Auto 71.9 % (50-75); Platelet Count 323 X10^3/uL (150-400); Red Blood Cell Count 4.42 X10^6/uL (4.0-5.2); Red Cell Distribution Width 16.9 % (11.6-14.8); White Blood Cell Count 12.6 X10^3/uL (4.5-11.0)
[2025-02-15 21:39] LABS: Lactate (Lactic Acid) 1.2 mmol/L (0.7-2.1)
[2025-02-15 21:40] LABS: Alanine Aminotransferase 15 IU/L (<35); Albumin 4.4 g/dL (3.5-5.0); Albumin Globulin Ratio 1.6 (1.0-2.8); Alkaline Phosphatase 75 U/L (38-126); Aspartate Aminotransferase 20 IU/L (14-36); Blood Urea Nitrogen 10 mg/dL (7-17); Calcium 9.4 mg/dL (8.4-10.2); Carbon Dioxide 25 mmol/L (22-32); Chloride 105 mmol/L (98-107); Estimated Glomerular Filt Rate > 60 mL/min (>60); Globulin 2.8 g/dL (1.7-4.1); Glucose 93 mg/dL (70-99); HEMOLYSIS < 15 (0-50); Potassium 3.6 mmol/L (3.4-5.1); Sodium 140 mmol/L (137-145); Total Protein 7.2 g/dL (6.3-8.2)
[2025-02-15] MEDS: HYDROMORPHONE 1 MG INJ IV (23:06)
[2025-02-16] VITALS (9 sets, daily range): BP systolic 121–182; BP diastolic 74–111; PULSE 76–108; RESP 15–18; TEMP 36.8–37.2; O2SAT 96–100; BMI 32.3
[2025-02-16] MEDS: KETAMINE IV (00:01)
[2025-02-16] MEDS: SODIUM CHLORIDE 0.9% IV (00:01)
--- NOTE | 2025-02-16 00:58 | PC.NURSE ---
Pt states that she is concerned that she is being seen as an addict. She has had Gastric bypass in the past, then treated for abdominal migraines with [place]. Last month pt had a new diagnosis of diverticulitis, with a week long stay in hospital with treatment. However, pain returned recently worse than the last episode of diverticulitis. Today pt given printed information from [facility] by this nurse about how to manage her diet to avoid recurrent episodes.
[2025-02-16] MEDS: metroNIDAZOLE 500 MG/100 ML PIGGYBACK 100 MG IV ×3 (01:45→17:52)
[2025-02-16] MEDS: HYDROMORPHONE 0.5 MG INJ IV (02:30)
[2025-02-16] MEDS: CIPROFLOXACIN 400 MG/200 ML PIGGYBACK 200 MG IV ×2 (02:52→14:48)
--- NOTE | 2025-02-16 02:52 | PM.HP.1 ---
History of Present Illness History of Present Illness Chief complaint: PT stated has Diverticulitis flare up Narrative: 44 y/o with PMH of colon diverticulosis,bipolar disorder, obesity, gastric bypass surgery, abdominal migraine, GERD, HTN, POD, seen yesterday in the ER and diagnosed with sigmoid diverticulitis. She was discharged home with prescribed ciprofloxacine, metronidazole and [place]. Today she is back with intractabla lower abdominal pain. She spent hours in the ED failing to improve with different analgesics. She had a second, identical CT abdome / pelvis. Her laboratory results are unremarkable, just like yesterday. Mild microcytic anemia. Placed in observation for pain control ON LICENSE OF [facility] Medical History Left corneal abrasion Headache Polycystic ovary disease Celiac disease GERD with apnea Hypertension Bipolar disorder Surgical History H/O: hysterectomy Status post tubal ligation History of section H/O abdominoplasty H/O oophorectomy H/O gastric sleeve History of cholecystectomy History of appendectomy Social History marital status: household members: significant other and children lives independently: Yes occupational status: employed Smoking Status: Never smoker alcohol intake: never substance use type: marijuana Meds Home Medications and Allergies Home Medications ?Medication ?Instructions ?Recorded ?Confirmed ?Type metoclopramide HCl 5 mg tablet 5 mg PO QAC 07/24/24 02/16/25 History (Reglan) clonazepam 0.5 mg tablet 0.5 mg PO BID 08/24/24 02/16/25 History estradiol 0.5 mg tablet 0.5 mg PO DAILY #30 tabs 11/12/24 02/16/25 Rx ondansetron HCl 4 mg tablet 4 mg PO Q8H PRN nausea/vomiting 01/19/25 02/16/25 Rx #30 tabs lamotrigine 25 mg tablet 100 mg PO DAILY 01/20/25 02/16/25 History ondansetron 4 mg disintegrating 4 mg sublingual Q4HR PRN Nausea 30 01/27/25 02/16/25 Rx tablet days #30 tabs lisinopril 5 mg tablet 5 mg PO DAILY #30 tabs 02/07/25 02/16/25 Rx oxycodone 5 mg tablet 10 mg (2 x 5 mg) PO BID PRN pain 02/07/25 02/16/25 Rx #40 tabs ciprofloxacin HCl 500 mg tablet 500 mg PO BID #14 tabs 02/14/25 02/16/25 Rx (Cipro) metoclopramide HCl 10 mg tablet 10 mg PO Q6H PRN nausea and 02/14/25 02/16/25 Rx vomiting #20 tabs metronidazole 500 mg tablet 500 mg PO TID #21 tabs 02/14/25 02/16/25 Rx oxycodone-acetaminophen 5 mg-325 1 tab PO Q4-6H PRN pain #20 tabs 02/14/25 02/16/25 Rx mg tablet (Percocet) Allergies Allergy/AdvReac Type Severity Reaction Status Date / Time vancomycin Allergy Intermediate ITCHING Verified 02/15/25 17:15 gluten Allergy Celiac Verified 02/15/25 17:15 coconut AdvReac Intermediate Hives Verified 02/15/25 17:15 NSAIDS (Non-Steroidal AdvReac Mild Gastrointestinal Verified 02/15/25 17:15 Anti-Inflamma Upset benzonatate (From Tessalon AdvReac Unknown Hives Verified 02/15/25 17:15 Perles) escitalopram (From Lexapro) AdvReac Unknown Hallucinati Verified 02/15/25 17:15 ng Review of Systems Constitutional Comments: low grade fever Cardiovascular Comments: w/o chest pain Respiratory Comments: w/o shortness of breath Gastrointestinal Comments: LLQ pain, nausea Genitourinary Comments: w/o dysuria Exam Vital Signs (past 8 hours): - 02/15/25 20:55 02/15/25 21:00 02/15/25 21:30 Pulse Rate 91 H 83 86 Blood Pressure Pulse Oximetry 100 100 100 Oxygen Delivery Method 02/15/25 22:00 02/15/25 22:30 02/15/25 23:00 Pulse Rate 85 92 H 92 H Blood Pressure Pulse Oximetry 97 97 98 Oxygen Delivery Method 02/15/25 23:09 02/15/25 23:09 02/15/25 23:30 Pulse Rate 81 109 H Blood Pressure 132/79 Pulse Oximetry 100 98 Oxygen Delivery Method 02/15/25 23:30 02/16/25 00:00 02/16/25 00:00 Pulse Rate 94 H Blood Pressure 134/74 146/86 H Pulse Oximetry 100 Oxygen Delivery Method Room Air 02/16/25 00:30 02/16/25 00:30 02/16/25 00:42 Pulse Rate 88 92 H Blood Pressure 149/111 H Pulse Oximetry 98 98 Oxygen Delivery Method 02/16/25 00:42 02/16/25 01:00 02/16/25 01:01 Pulse Rate 108 H Blood Pressure 182/88 H 121/79 Pulse Oximetry 98 Oxygen Delivery Method Room Air 02/16/25 01:01 Pulse Rate 100 H Blood Pressure Pulse Oximetry 97 Oxygen Delivery Method Oxygen Delivery Method Room Air Narrative Exam Narrative: General - In mild GI distress, nauseated, in pain GI - soft, obese abdomen w/o peritoneal signs CVS - RRR RS - normal respiratory effort Psych - anxious Objective Imaging CT scan - abdomen: Radiologist's impression: Recurrent mild inflammation in the proximal sigmoid suggesting acute on chronic diverticulitis. No evidence of complication such as perforation or abscess. Labs 02/15/25 21:15 02/15/25 21:15 Labs: Laboratory Results - last 24 hr 02/15/25 21:15 WBC 12.6 H RBC 4.42 Hgb 11.2 L Hct 34.0 L MCV 77.0 L MCH 25.3 L MCHC 32.8 RDW 16.9 H Plt Count 323 Neut % (Auto) 71.9 Lymph % (Auto) 17.0 L [place] % (Auto) 9.5 Eos % (Auto) 1.0 L Baso % (Auto) 0.6 Neut # (Auto) 9100 H Lymph # (Auto) 2100 [place] # (Auto) 1200 H Eos # (Auto) 100 Baso # (Auto) 100 Sodium 140 Potassium 3.6 Chloride 105 Carbon Dioxide 25 BUN 10 Creatinine 0.50 L Estimated GFR > 60 BUN/Creatinine Ratio 20.0 Glucose 93 Lactate 1.2 Calcium 9.4 Total Bilirubin 1.0 AST 20 ALT 15 Alkaline Phosphatase 75 Total Protein 7.2 Albumin 4.4 Globulin 2.8 Albumin/Globulin Ratio 1.6 Assessment & Plan Assessment and plan (1) Sigmoid diverticulitis: Status: Acute (2) Abdominal pain: Status: Acute (3) Bipolar disorder: Qualifiers: Active/Remission status: remission status unspecified Qualified Code(s): F31.9 - Bipolar disorder, unspecified Status: Acute Assessment & Plan narrative: Sigmoid Diverticulitis - Cipro with Flagyl - since admitted for pain control will be given few IV doses to continue with PO Abdominal Pain - intractable - placed in observation to achieve adequate pain control Bipolar Disorder - clonazepam - lamictal DVT prophylaxis - Lovenox Patient consented to telemedicine, audio-video encounter with RN assisting during the exam. Patient located at [place], [place]. Provider located in [place]. Time-Based Coding :: [TOTAL MINUTES] spent with patient and on the chart (including review of chart, obtaining history, exam, reviewing outside data, placing orders, documenting exam and treatment plan, and counseling patient) on [DATE].
[2025-02-16] MEDS: OXYCODONE IR 5 MG TABLET 10 MG PO ×2 (04:00→13:58)
--- NOTE | 2025-02-16 04:04 | PC.NURSE ---
Pt. admitted to room 205, oriented to her room & encouraged to call for assistance with her needs. Abdominal pain still 7-[address] Pandey notified via messaging. Medicated with 10 mg. of Oxycodone able to drink her water. Did not C/O nausea, will continue plan of care & monitor.
[2025-02-16 06:07] LABS: Add Manual Diff / Slide Review NO; Basophils Absolute Auto 0 /uL (0-100); Basophils Percent Auto 0.4 % (0-2); Eosinophils Absolute Auto 100 /uL (0-450); Eosinophils Percent Auto 0.6 % (2-4); Hematocrit 32.5 % (36-46); Hemoglobin 10.6 g/dL (12.0-16.0); Lymphocytes Absolute Auto 2200 /uL (1100-4500); Lymphocytes Percent Auto 19.5 % (25-40); Mean Corpuscular HGB Conc 32.8 % (30-36); Mean Corpuscular Hemoglobin 25.5 PG (26-34); Mean Corpuscular Volume 77.8 fL (80-100); Monocytes Absolute Auto 1200 /uL (0-900); Monocytes Percent Auto 10.5 % (3-14); Neutrophils Absolute Auto 7700 /uL (1500-7000); Platelet Count 306 X10^3/uL (150-400); Red Blood Cell Count 4.17 X10^6/uL (4.0-5.2); White Blood Cell Count 11.1 X10^3/uL (4.5-11.0)
[2025-02-16 06:19] LABS: Blood Urea Nitrogen 8 mg/dL (7-17); Carbon Dioxide 23 mmol/L (22-32); Chloride 105 mmol/L (98-107); Estimated Glomerular Filt Rate > 60 mL/min (>60); Glucose 101 mg/dL (70-99); HEMOLYSIS < 15 (0-50); Potassium 3.5 mmol/L (3.4-5.1); Sodium 138 mmol/L (137-145)
[2025-02-16] MEDS: HYDROMORPHONE 0.5 MG INJ 1 MG IV (06:25)
[2025-02-16] MEDS: ENOXAPARIN 40 MG/0.4 ML SYRINGE SUBCUT (08:52)
[2025-02-16] MEDS: clonazePAM 0.5 MG TABLET PO ×2 (08:52→20:14)
[2025-02-16] MEDS: PANTOPRAZOLE 40 MG VIAL 20 MG IV (08:53)
[2025-02-16] MEDS: HYDROMORPHONE 1 MG INJ IV ×5 (10:16→23:18)
[2025-02-16] MEDS: lamoTRIgine 100 MG TABLET PO (12:46)
[2025-02-16] MEDS: POTASSIUM CHLORIDE 20 MEQ TAB 40 MEQ PO (13:58)
--- NOTE | 2025-02-16 14:35 | CM.DANOTE ---
Initial DCP Assessment Visit Note Reviewed EMR and team rounds for pt's medical status and updates. Met with pt at bedside to introduce self and role, pt was found to be alert/oriented, resting quietly in bed. Pt lives independently at baseline with her and children in their own home in [place]. Pt's spouse will provide transport once she's medically cleared for home d/c, likely by tomorrow 02/17/25. Payor: [facility] PCP: Dr. Dunbar Pt is a 44 year-old F with a hx of chronic diverticulitisflares, presents within 30-days of her last discharge for the same concerns. She had been sent home on oral antibiotics, which she has been taking, however she feels that her pain is worsening, and that the antibiotics have not improved her symptoms. CT Abd/Pelvis imaging in the ED confirmed acute/chronic diverticulitis. Plan was made to admit to OBS after IV pain meds in the ED were not providing adequate, lasting pain relief. DCP will continue to monitor for any further evolving d/c assistance/resource needs. Discharge Planning/Care Management Advanced directive, confirm from FAMILY Start: 02/16/25 03:11 Freq: Q24H Status: Active Protocol: Document 02/16/25 03:11 MP (Rec: 02/16/25 03:25 MP [id number]) Advance Directive, confirm on record Time 03:25 Person contacted pt. Copy received No CM Discharge Assessment Start: 02/16/25 02:35 Freq: Status: Active Protocol: Document 02/16/25 14:24 DPL (Rec: 02/16/25 14:35 DPL [id number]) Discharge Planning Assessment Assigned Discharge GIO Vázquez [employer] Specialist Advance Directives? No Advance Directives No on File History Provided By Patient,Medical Record Has Patient been Yes admitted in last 30 days? Prior Living House Arrangements Household Members significant other,children Type of Drives own vehicle transporation used prior to admit Independent with ADL Yes 's Is patient alert and Yes oriented? Comment Patient has a bath chair to help her relax in shower if she has a migraine. Comment Home w/ S.O. expected Discharge Plan Home Transportation Spouse can transport home at d/c Arrangement Referrals Initiated None needed Whiteboard Updated Yes in Patient Room with name and ext. # of Appeals And Generalist Clerk Review Status In Process Please Provide Date 02/16/25 Initial DC Assessment Was Performed
--- NOTE | 2025-02-16 18:31 | PM.HP.1 ---
History of Present Illness History of Present Illness Date Patient Seen: 02/16/25 Time Patient Seen: 14:00 Chief complaint: PT stated has Diverticulitis flare up Narrative: Per overnight provider, 44 y/o with PMH of colon diverticulosis,bipolar disorder, obesity, gastric bypass surgery, abdominal migraine, GERD, HTN, POD, seen yesterday in the ER and diagnosed with sigmoid diverticulitis. She was discharged home with prescribed ciprofloxacine, metronidazole and [place]. Today she is back with intractabla lower abdominal pain. She spent hours in the ED failing to improve with different analgesics. She had a second, identical CT abdome / pelvis. Her laboratory results are unremarkable, just like yesterday. Mild microcytic anemia. Placed in observation for pain control Interval history: Presented with worsening LLQ not responding to outpatient therapy. LLQ pain is improving today and is not as painful. She reports her pain had not been this bad before. Denies vomiting, has been passing gas and having bowel movements. No dysuria. Does endorse fever, chills, sweats at home. [facility] Medical History Left corneal abrasion Headache Polycystic ovary disease Celiac disease GERD with apnea Hypertension Bipolar disorder Surgical History H/O: hysterectomy Status post tubal ligation History of section H/O abdominoplasty H/O oophorectomy H/O gastric sleeve History of cholecystectomy History of appendectomy Social History marital status: household members: significant other and children lives independently: Yes occupational status: employed Smoking Status: Never smoker alcohol intake: never substance use type: marijuana Meds Home Medications and Allergies Home Medications ?Medication ?Instructions ?Recorded ?Confirmed ?Type metoclopramide HCl 5 mg tablet 5 mg PO QAC 07/24/24 02/16/25 History (Reglan) clonazepam 0.5 mg tablet 0.5 mg PO BID 08/24/24 02/16/25 History estradiol 0.5 mg tablet 0.5 mg PO DAILY #30 tabs 11/12/24 02/16/25 Rx ondansetron HCl 4 mg tablet 4 mg PO Q8H PRN nausea/vomiting 01/19/25 02/16/25 Rx #30 tabs lamotrigine 25 mg tablet 100 mg PO DAILY 01/20/25 02/16/25 History ondansetron 4 mg disintegrating 4 mg sublingual Q4HR PRN Nausea 30 01/27/25 02/16/25 Rx tablet days #30 tabs lisinopril 5 mg tablet 5 mg PO DAILY #30 tabs 02/07/25 02/16/25 Rx oxycodone 5 mg tablet 10 mg (2 x 5 mg) PO BID PRN pain 02/07/25 02/16/25 Rx #40 tabs ciprofloxacin HCl 500 mg tablet 500 mg PO BID #14 tabs 02/14/25 02/16/25 Rx (Cipro) metoclopramide HCl 10 mg tablet 10 mg PO Q6H PRN nausea and 02/14/25 02/16/25 Rx vomiting #20 tabs metronidazole 500 mg tablet 500 mg PO TID #21 tabs 02/14/25 02/16/25 Rx oxycodone-acetaminophen 5 mg-325 1 tab PO Q4-6H PRN pain #20 tabs 02/14/25 02/16/25 Rx mg tablet (Percocet) Allergies Allergy/AdvReac Type Severity Reaction Status Date / Time vancomycin Allergy Intermediate ITCHING Verified 02/15/25 17:15 gluten Allergy Celiac Verified 02/15/25 17:15 coconut AdvReac Intermediate Hives Verified 02/15/25 17:15 NSAIDS (Non-Steroidal AdvReac Mild Gastrointestinal Verified 02/15/25 17:15 Anti-Inflamma Upset benzonatate (From Tessalon AdvReac Unknown Hives Verified 02/15/25 17:15 [place]) escitalopram (From Lexapro) AdvReac Unknown Hallucinati Verified 02/15/25 17:15 ng Review of Systems Review of Systems Narrative: All other systems reviewed with the patient and are negative unless otherwise stated. Exam Vital Signs (past 8 hours): - 02/16/25 12:00 02/16/25 18:00 Temperature 98.9 F 99.0 F Pulse Rate 77 87 Respiratory Rate 15 16 Blood Pressure 140/74 142/76 H Pulse Oximetry 99 99 Oxygen Flow Rate 0 0 Oxygen Delivery Method Room Air Oxygen Flow Rate 0 Narrative Exam Narrative: NAD, alert and oriented. Fluent speech. Lungs are clear, normal rate and effort. Heart is regular, no murmur gallop or rub. Abdomen is soft, non distended. There is left lower quadrant tenderness Extremities are free of edema. Objective Labs 02/16/25 05:45 02/16/25 05:45 Labs: Laboratory Results - last 24 hr 02/15/25 02/16/25 21:15 05:45 WBC 12.6 H 11.1 H RBC 4.42 4.17 Hgb 11.2 L 10.6 L Hct 34.0 L 32.5 L MCV 77.0 L 77.8 L MCH 25.3 L 25.5 L MCHC 32.8 32.8 RDW 16.9 H 17.0 H Plt Count 323 306 Neut % (Auto) 71.9 69.0 Lymph % (Auto) 17.0 L 19.5 L [place] % (Auto) 9.5 10.5 Eos % (Auto) 1.0 L 0.6 L Baso % (Auto) 0.6 0.4 Neut # (Auto) 9100 H 7700 H Lymph # (Auto) 2100 2200 [place] # (Auto) 1200 H 1200 H Eos # (Auto) 100 100 Baso # (Auto) 100 0 Sodium 140 138 Potassium 3.6 3.5 Chloride 105 105 Carbon Dioxide 25 23 BUN 10 8 Creatinine 0.50 L 0.47 L Estimated GFR > 60 > 60 BUN/Creatinine Ratio 20.0 17.0 Glucose 93 101 H Lactate 1.2 Calcium 9.4 9.0 Total Bilirubin 1.0 AST 20 ALT 15 Alkaline Phosphatase 75 Total Protein 7.2 Albumin 4.4 Globulin 2.8 Albumin/Globulin Ratio 1.6 Assessment & Plan Assessment & Plan narrative: Sigmoid Diverticulitis - continue cipro/flagyl and pain control. CT with possible mild worsening of inflammation in sigmoid area. - advance diet as tolerated, but patient does not want to try more than clears at this time. - WBC count improving today with antibiotics as is pain. - add oral dilaudid to pain control Bipolar Disorder - clonazepam - lamictal Code: Full, surrogate is patient's spouse DVT: Lovenox daily I have utilized all available immediate resources to obtain, update, or review the patient's current medications. Dispo: patient admitted under observation status. Possible discharge home 1-2 days depending on response to antibiotics. Additional history obtained via discussions with the overnight provider. These discussions contributed to the creation of the above assessment and plan. I have reviewed patient's presenting documentation, labs, and imaging personally. Time-Based Coding :: [TOTAL MINUTES] spent with patient and on the chart (including review of chart, obtaining history, exam, reviewing outside data, placing orders, documenting exam and treatment plan, and counseling patient) on [DATE]. Quality VTE Deep Vein Thrombosis/Pulmonary Embolism Present on Admission: No
[2025-02-16] MEDS: HYDROMORPHONE 2 MG TABLET PO (19:00)
[2025-02-16] MEDS: SODIUM CHLORIDE 0.9% FLUSH 10 ML IV (20:14)
--- NOTE | 2025-02-16 21:40 | PC.NURSE ---
Addendum entered by Cherry De La Vega R.N. 02/16/25 22:10: Patient had small loose stool with what appeared to be some blood. Measuring device placed in toilet so next BM can be guaiaced. Original Note: Patient is alert and oriented and becomes weepy when abdominal pain increases. Breath sounds CTA with RA sat of 100%; declines use of continuous oximeter. HRR. Denied nausea. BT present and abdomen is soft but she feels it is mildly distended. Is having abdominal pain as high as 7/10 in left lower quadrant for which she was medicated earlier with Dilaudid (and warm blanket applied) and is currently asleep. Reports she has had about 8 small loose stools so far today. Denied dysuria with urination. Is independent with mobility. Declines use of SCD's as is getting up to bathroom frequently. Fall risk score is low.
[2025-02-16] MEDS: METOCLOPRAMIDE 10 MG/2 ML INJ IV (23:17)
[2025-02-17] MEDS: HYDROMORPHONE 1 MG INJ IV ×5 (01:58→23:37)
[2025-02-17] MEDS: metroNIDAZOLE 500 MG/100 ML PIGGYBACK 100 MG IV ×3 (01:59→17:59)
[2025-02-17 02:00] VITALS: BP 135/87; PULSE 74; RESP 20; TEMP 36.5; O2SAT 97
[2025-02-17] MEDS: SODIUM CHLORIDE 0.9% FLUSH 10 ML IV ×3 (02:00→20:45)
[2025-02-17] MEDS: CIPROFLOXACIN 400 MG/200 ML PIGGYBACK 200 MG IV ×2 (03:08→15:08)
[2025-02-17] MEDS: HYDROMORPHONE 2 MG TABLET PO ×2 (05:14→09:51)
[2025-02-17 06:13] LABS: BUN Creatinine Ratio 10.9 (6-22); Blood Urea Nitrogen 5 mg/dL (7-17); Calcium 8.7 mg/dL (8.4-10.2); Carbon Dioxide 26 mmol/L (22-32); Chloride 105 mmol/L (98-107); Estimated Glomerular Filt Rate > 60 mL/min (>60); Glucose 91 mg/dL (70-99); HEMOLYSIS < 15 (0-50); Potassium 3.8 mmol/L (3.4-5.1); Sodium 137 mmol/L (137-145)
[2025-02-17] MEDS: lamoTRIgine 100 MG TABLET PO (08:38)
[2025-02-17] MEDS: PANTOPRAZOLE 40 MG VIAL 20 MG IV (08:38)
[2025-02-17] MEDS: clonazePAM 0.5 MG TABLET PO ×2 (08:38→20:45)
[2025-02-17] MEDS: METOCLOPRAMIDE 10 MG/2 ML INJ IV (11:20)
[2025-02-17 12:00] VITALS: BP 132/89; PULSE 89; RESP 14; TEMP 36.9; O2SAT 100
[2025-02-17] MEDS: OXYCODONE IR 10 MG TABLET PO ×2 (12:33→18:04)
[2025-02-17 13:42] LABS: Add Manual Diff / Slide Review NO; Basophils Absolute Auto 0 /uL (0-100); Basophils Percent Auto 0.5 % (0-2); Eosinophils Absolute Auto 100 /uL (0-450); Eosinophils Percent Auto 1.1 % (2-4); Hematocrit 33.2 % (36-46); Lymphocytes Absolute Auto 1500 /uL (1100-4500); Lymphocytes Percent Auto 17.5 % (25-40); Mean Corpuscular HGB Conc 33.1 % (30-36); Mean Corpuscular Hemoglobin 25.7 PG (26-34); Mean Corpuscular Volume 77.5 fL (80-100); Monocytes Absolute Auto 1100 /uL (0-900); Monocytes Percent Auto 12.2 % (3-14); Neutrophils Absolute Auto 6000 /uL (1500-7000); Neutrophils Percent Auto 68.7 % (50-75); Platelet Count 319 X10^3/uL (150-400); Red Blood Cell Count 4.28 X10^6/uL (4.0-5.2); Red Cell Distribution Width 16.9 % (11.6-14.8); White Blood Cell Count 8.8 X10^3/uL (4.5-11.0)
--- NOTE | 2025-02-17 16:33 | PM.PN.1 ---
Subjective Subjective Interval history: 44 F admitted with recurrent L sigmoid diverticulitis. Had a bad night she says, complaining of sharp more localized LLQ pain. Wants to try going back to oral oxycodone which seemed to work better. No fever or chills. Exam Vital Signs (past 8 hours): - 02/17/25 12:00 Temperature 98.5 F Pulse Rate 89 Respiratory Rate 14 Blood Pressure 132/89 Pulse Oximetry 100 Oxygen Flow Rate 0 Oxygen Delivery Method Room Air Oxygen Flow Rate 0 Narrative Exam Narrative: NAD, alert and oriented. Fluent speech. Laying right recumbent positioning when entering on her phone. Lungs are clear, normal rate and effort. Heart is regular, no murmur gallop or rub. Abdomen is soft, non distended. There is left lower quadrant tenderness Extremities are free of edema. Objective Labs 02/17/25 13:24 02/17/25 05:52 Labs: Laboratory Results - last 24 hr 02/17/25 02/17/25 05:52 13:24 WBC 8.8 RBC 4.28 Hgb 11.0 L Hct 33.2 L MCV 77.5 L MCH 25.7 L MCHC 33.1 RDW 16.9 H Plt Count 319 Neut % (Auto) 68.7 Lymph % (Auto) 17.5 L [place] % (Auto) 12.2 Eos % (Auto) 1.1 L Baso % (Auto) 0.5 Neut # (Auto) 6000 Lymph # (Auto) 1500 [place] # (Auto) 1100 H Eos # (Auto) 100 Baso # (Auto) 0 Sodium 137 Potassium 3.8 Chloride 105 Carbon Dioxide 26 BUN 5 L Creatinine 0.46 L Estimated GFR > 60 BUN/Creatinine Ratio 10.9 Glucose 91 Calcium 8.7 PFSH Medical History Left corneal abrasion Headache Polycystic ovary disease Celiac disease GERD with apnea Hypertension Bipolar disorder Surgical History H/O: hysterectomy Status post tubal ligation History of section H/O abdominoplasty H/O oophorectomy H/O gastric sleeve History of cholecystectomy History of appendectomy Social History marital status: household members: significant other and children lives independently: Yes occupational status: employed Smoking Status: Never smoker alcohol intake: never substance use type: marijuana Assessment & Plan Assessment & Plan narrative: Sigmoid Diverticulitis - continue cipro/flagyl and pain control. CT with possible mild worsening of inflammation in sigmoid area. - advance diet as tolerated, but patient does not want to try more than clears at this time. - WBC count improving today with antibiotics as is pain. - switched back to oxycodone as that seemed to help her more. - If continued worsening pain consider repeat imaging, held today given continued improvement in WBC. Bipolar Disorder - clonazepam - lamictal Code: Full, surrogate is patient's spouse DVT: Lovenox daily I have utilized all available immediate resources to obtain, update, or review the patient's current medications. Dispo: patient admitted under observation status. Possible discharge home 1-2 days depending on response to antibiotics. Additional history obtained via discussions with the overnight provider. These discussions contributed to the creation of the above assessment and plan. I have reviewed patient's presenting documentation, labs, and imaging personally. Time-Based Coding :: [TOTAL MINUTES] spent with patient and on the chart (including review of chart, obtaining history, exam, reviewing outside data, placing orders, documenting exam and treatment plan, and counseling patient) on [DATE]. Quality VTE Deep Vein Thrombosis/Pulmonary Embolism Present on Admission: No
[2025-02-17 20:00] VITALS: BP 130/81; PULSE 60; RESP 13; TEMP 37.1; O2SAT 100
[2025-02-18] VITALS: BP 106/55; PULSE 71; RESP 16; TEMP 36.4; O2SAT 99
[2025-02-18] MEDS: metroNIDAZOLE 500 MG/100 ML PIGGYBACK 100 MG IV ×2 (01:13→10:24)
[2025-02-18] MEDS: OXYCODONE IR 10 MG TABLET PO ×3 (01:13→13:54)
[2025-02-18] MEDS: CIPROFLOXACIN 400 MG/200 ML PIGGYBACK 200 MG IV ×2 (02:15→14:55)
[2025-02-18] MEDS: HYDROMORPHONE 1 MG INJ IV ×3 (03:23→10:30)
[2025-02-18 06:15] LABS: Add Manual Diff / Slide Review NO; Basophils Absolute Auto 0 /uL (0-100); Basophils Percent Auto 0.7 % (0-2); Eosinophils Absolute Auto 200 /uL (0-450); Eosinophils Percent Auto 2.6 % (2-4); Hematocrit 30.6 % (36-46); Hemoglobin 10.2 g/dL (12.0-16.0); Lymphocytes Absolute Auto 2100 /uL (1100-4500); Lymphocytes Percent Auto 33.8 % (25-40); Mean Corpuscular HGB Conc 33.2 % (30-36); Mean Corpuscular Hemoglobin 25.9 PG (26-34); Mean Corpuscular Volume 78.1 fL (80-100); Monocytes Absolute Auto 800 /uL (0-900); Monocytes Percent Auto 12.8 % (3-14); Neutrophils Absolute Auto 3100 /uL (1500-7000); Neutrophils Percent Auto 50.1 % (50-75); Platelet Count 269 X10^3/uL (150-400); Red Blood Cell Count 3.92 X10^6/uL (4.0-5.2); Red Cell Distribution Width 16.6 % (11.6-14.8); White Blood Cell Count 6.3 X10^3/uL (4.5-11.0)
[2025-02-18 06:33] LABS: BUN Creatinine Ratio 10.9 (6-22); Blood Urea Nitrogen 5 mg/dL (7-17); Calcium 8.8 mg/dL (8.4-10.2); Carbon Dioxide 24 mmol/L (22-32); Chloride 106 mmol/L (98-107); Estimated Glomerular Filt Rate > 60 mL/min (>60); Glucose 90 mg/dL (70-99); HEMOLYSIS < 15 (0-50); Potassium 3.5 mmol/L (3.4-5.1); Sodium 137 mmol/L (137-145)
--- NOTE | 2025-02-18 07:38 | PM.PN.1 ---
Subjective Subjective Date Patient Seen: 02/18/25 Interval history: Chief complaint: Left lower quadrant pain secondary to sigmoid diverticulitis recurrent History of present illness: 02/16/2025:44 y/o with PMH of colon diverticulosis,bipolar disorder, obesity, gastric bypass surgery, abdominal migraine, GERD, HTN, POD, seen yesterday in the ER and diagnosed with sigmoid diverticulitis. She was discharged home with prescribed ciprofloxacine, metronidazole and [place]. Today she is back with intractabla lower abdominal pain. She spent hours in the ED failing to improve with different analgesics. She had a second, identical CT abdome / pelvis. Her laboratory results are unremarkable, just like yesterday. Mild microcytic anemia. Placed in observation for pain control Interval history: Presented with worsening LLQ not responding to outpatient therapy. LLQ pain is improving today and is not as painful. She reports her pain had not been this bad before. Denies vomiting, has been passing gas and having bowel movements. No dysuria. Does endorse fever, chills, sweats at home. Hospital course: 02/17: 44 F admitted with recurrent L sigmoid diverticulitis. Had a bad night she says, complaining of sharp more localized LLQ pain. Wants to try going back to oral oxycodone which seemed to work better. No fever or chills. 02/18: Review of systems: Physical exam: Assessment and plan: Sigmoid Diverticulitis - continue cipro/flagyl and pain control. CT with possible mild worsening of inflammation in sigmoid area. - advance diet as tolerated, but patient does not want to try more than clears at this time. - WBC count improving today with antibiotics as is pain. - add oral dilaudid to pain control Bipolar Disorder - clonazepam - lamictal Code: Full, surrogate is patient's spouse DVT: Lovenox daily Dispo: patient admitted under observation status. Possible discharge home 1-2 days depending on response to antibiotics. Time-Based Coding :: 35 minutes spent with patient and on the chart (including review of chart, obtaining history, exam, reviewing outside data, placing orders, documenting exam and treatment plan, and counseling patient) Exam Vital Signs (past 8 hours): - 02/18/25 00:00 Temperature 97.5 F L Pulse Rate 71 Respiratory Rate 16 Blood Pressure 106/55 L Pulse Oximetry 99 Oxygen Flow Rate 0 Oxygen Delivery Method Room Air Oxygen Flow Rate 0 Objective Labs 02/18/25 05:48 02/18/25 05:48 Labs: Laboratory Results - last 24 hr 02/17/25 02/18/25 13:24 05:48 WBC 8.8 6.3 RBC 4.28 3.92 L Hgb 11.0 L 10.2 L Hct 33.2 L 30.6 L MCV 77.5 L 78.1 L MCH 25.7 L 25.9 L MCHC 33.1 33.2 RDW 16.9 H 16.6 H Plt Count 319 269 Neut % (Auto) 68.7 50.1 Lymph % (Auto) 17.5 L 33.8 [place] % (Auto) 12.2 12.8 Eos % (Auto) 1.1 L 2.6 Baso % (Auto) 0.5 0.7 Neut # (Auto) 6000 3100 Lymph # (Auto) 1500 2100 [place] # (Auto) 1100 H 800 Eos # (Auto) 100 200 Baso # (Auto) 0 0 Sodium 137 Potassium 3.5 Chloride 106 Carbon Dioxide 24 BUN 5 L Creatinine 0.46 L Estimated GFR > 60 BUN/Creatinine Ratio 10.9 Glucose 90 Calcium 8.8 PFSH Medical History Left corneal abrasion Headache Polycystic ovary disease Celiac disease GERD with apnea Hypertension Bipolar disorder Surgical History H/O: hysterectomy Status post tubal ligation History of section H/O abdominoplasty H/O oophorectomy H/O gastric sleeve History of cholecystectomy History of appendectomy Social History marital status: household members: significant other and children lives independently: Yes occupational status: employed Smoking Status: Never smoker alcohol intake: never substance use type: marijuana Assessment & Plan Time-Based Coding :: [TOTAL MINUTES] spent with patient and on the chart (including review of chart, obtaining history, exam, reviewing outside data, placing orders, documenting exam and treatment plan, and counseling patient) on [DATE]. Quality VTE Deep Vein Thrombosis/Pulmonary Embolism Present on Admission: No
[2025-02-18] MEDS: METOCLOPRAMIDE 10 MG/2 ML INJ IV (08:32)
[2025-02-18] MEDS: lamoTRIgine 100 MG TABLET PO (08:54)
[2025-02-18] MEDS: PANTOPRAZOLE 40 MG VIAL 20 MG IV (08:54)
[2025-02-18] MEDS: clonazePAM 0.5 MG TABLET PO (08:54)
[2025-02-18] MEDS: SODIUM CHLORIDE 0.9% FLUSH 10 ML IV (08:55)
[2025-02-18 10:00] VITALS: BP 134/86; PULSE 82; RESP 16; TEMP 36.4; O2SAT 98
--- NOTE | 2025-02-18 10:18 | CM.DPNOTE ---
Addendum entered by GIO Gamboa 02/18/25 14:54: Addendum: Discharge orders placed, DCP notified Transitional Care Management team of pt discharge as her PCP is Dr. Jamil for outpatient follow up. MATTHEW Becerril Original Note: DCP Continued: Reviewed EMR and team rounds for pt?s medical status. Per hospitalist, pt is nauseated this morning but motivated to discharge home. Plan is to re-assess if nausea returns after lunch. No discharge/social needs identified at this time. Plan: Anticipating discharge home on 02/18, after lunch if nausea subsides or when medically cleared. CM Team will continue to follow for coordination of discharge plans. MATTHEW Becerril
--- NOTE | 2025-02-18 14:11 | PM.DS.1 ---
History of Present Illness History of Present Illness Date Patient Seen: 02/18/25 Chief complaint: PT stated has Diverticulitis flare up Narrative: Chief complaint: Left lower quadrant pain secondary to sigmoid diverticulitis recurrent History of present illness: 02/16/2025:44 y/o with PMH of colon diverticulosis,bipolar disorder, obesity, gastric bypass surgery, abdominal migraine, GERD, HTN, POD, seen yesterday in the ER and diagnosed with sigmoid diverticulitis. She was discharged home with prescribed ciprofloxacine, metronidazole and [place]. Today she is back with intractabla lower abdominal pain. She spent hours in the ED failing to improve with different analgesics. She had a second, identical CT abdome / pelvis. Her laboratory results are unremarkable, just like yesterday. Mild microcytic anemia. Placed in observation for pain control Interval history: Presented with worsening LLQ not responding to outpatient therapy. LLQ pain is improving today and is not as painful. She reports her pain had not been this bad before. Denies vomiting, has been passing gas and having bowel movements. No dysuria. Does endorse fever, chills, sweats at home. Hospital course: 02/17:44 F admitted with recurrent L sigmoid diverticulitis. Had a bad night she says, complaining of sharp more localized LLQ pain. Wants to try going back to oral oxycodone which seemed to work better. No fever or chills. 02/18: Tolerated diet discharged home on oral Flagyl Review of systems: Physical exam: Assessment and plan: Sigmoid Diverticulitis Discharged home on oral Flagyl Time-Based Coding :: 35 minutes spent with patient and on the chart (including review of chart, obtaining history, exam, reviewing outside data, placing orders, documenting exam and treatment plan, and counseling patient) Discharge Providers Provider Date of admission: 02/16/25 01:14 Discharge Date: 02/18/25 Primary care physician: Sarah Dunbar MD Discharge provider: Jose Luis Mancini MD Exam Vital Signs (past 8 hours): - 02/18/25 10:00 Temperature 97.5 F L Pulse Rate 82 Respiratory Rate 16 Blood Pressure 134/86 Pulse Oximetry 98 Oxygen Flow Rate 0 Oxygen Delivery Method Room Air Oxygen Flow Rate 0 Objective Labs 02/18/25 05:48 02/18/25 05:48 Labs: Laboratory Results - last 24 hr 02/18/25 05:48 WBC 6.3 RBC 3.92 L Hgb 10.2 L Hct 30.6 L MCV 78.1 L MCH 25.9 L MCHC 33.2 RDW 16.6 H Plt Count 269 Neut % (Auto) 50.1 Lymph % (Auto) 33.8 [place] % (Auto) 12.8 Eos % (Auto) 2.6 Baso % (Auto) 0.7 Neut # (Auto) 3100 Lymph # (Auto) 2100 [place] # (Auto) 800 Eos # (Auto) 200 Baso # (Auto) 0 Sodium 137 Potassium 3.5 Chloride 106 Carbon Dioxide 24 BUN 5 L Creatinine 0.46 L Estimated GFR > 60 BUN/Creatinine Ratio 10.9 Glucose 90 Calcium 8.8 PFSH Medical History Left corneal abrasion Headache Polycystic ovary disease Celiac disease GERD with apnea Hypertension Bipolar disorder Surgical History H/O: hysterectomy Status post tubal ligation History of section H/O abdominoplasty H/O oophorectomy H/O gastric sleeve History of cholecystectomy History of appendectomy Social History marital status: household members: significant other and children lives independently: Yes occupational status: employed Smoking Status: Never smoker alcohol intake: never substance use type: marijuana Discharge Plan Discharge Plan Patient Disposition: Home Discharge orders & Medications Prescriptions: New ciprofloxacin HCl [Cipro] 500 mg tablet 500 mg PO BID Qty: 14 0RF metronidazole 500 mg tablet 500 mg PO Q8H Qty: 20 0RF Continued lisinopril 5 mg tablet 5 mg PO DAILY Qty: 30 3RF oxycodone 5 mg tablet 10 mg PO BID PRN (Reason: pain) Qty: 40 0RF Patient Comments: Not taking Oxycodone. Takes Percocet now. clonazepam 0.5 mg tablet 0.5 mg PO BID estradiol 0.5 mg tablet 0.5 mg PO DAILY Qty: 30 3RF ondansetron HCl 4 mg tablet 4 mg PO Q8H PRN (Reason: nausea/vomiting) Qty: 30 0RF metoclopramide HCl [Reglan] 5 mg Tablet 5 mg PO QAC Rx Instructions: administer 30 minutes before meals lamotrigine 25 mg tablet 100 mg PO DAILY Patient Comments: Pt. takes 100 mg. daily since 01/2025. Rx Instructions: TAKE 1 tablet BY MOUTH daily for 14 days; then increase to 2 tablets daily for 14 days; then increase to 4 tablets daily for one week FOR 30 DAYS -- Filled 12/17/24 ondansetron 4 mg Tablet,Disintegrating 4 mg sublingual Q4HR PRN (Reason: Nausea) 30 Days Qty: 30 0RF metronidazole 500 mg tablet 500 mg PO TID Qty: 21 0RF oxycodone-acetaminophen [Percocet] 5-325 mg tablet 1 tab PO Q4-6H PRN (Reason: pain) Qty: 20 0RF metoclopramide HCl 10 mg tablet 10 mg PO Q6H PRN (Reason: nausea and vomiting) Qty: 20 0RF Discontinued ciprofloxacin HCl [Cipro] 500 mg tablet 500 mg PO BID Qty: 14 0RF Follow up/Referrals: Sarah Dunbar MD [Primary Care Provider, Family Practice] Visit Report/Discharge Packet Stand Alone Forms: Patient Portal/API, Stroke Signs & Symptoms Discharge Data Primary Care Provider: Sarah Dunbar Attending Provider: Bob Mckeon Admit Date/Time: 02/16/25 01:14 Quality VTE Deep Vein Thrombosis/Pulmonary Embolism Present on Admission: No
== END 2025-02-18 16:15 | disposition home or self-care (01) ==
LOC: ED 02-16 01:13 → AC 02-16 01:14
PROVIDERS: Internal Medicine; Admitting Provider Internal Medicine; Emergency Provider Emergency Medicine; PCP Student in an Organized Health Care Education/Training Program; Visit Provider Internal Medicine
DX: K57.32 Diverticulitis of large intestine without perforation or abscess without bleeding (principal); F31.9 Bipolar disorder, unspecified; D50.9 Iron deficiency anemia, unspecified; Z98.84 Bariatric surgery status
CPT/HCPCS: 36415; 74177; 80048; 80053; 81003; 83605; 85025; 96365; 96366; 96367; 96368; 96375; 96376; 99284; G0378; J0744; J1171; J1650; J2470; J2765; Q9967

== ENCOUNTER 2025-02-25 15:41 | Inpatient (IN) | payer MEDICARE, OTHER, SELFPAY ==
[2025-02-16 02:35] VITALS: BMI 32.3
[2025-02-25] VITALS (10 sets, daily range): BP systolic 122–197; BP diastolic 64–119; PULSE 66–114; RESP 12–38; TEMP 36.4–36.9; O2SAT 94–99; BMI 32.3
--- NOTE | 2025-02-25 16:08 | ED.GIBLEED ---
HPI - GI Bleed General Chief complaint: GI Bleed Stated complaint: abdominal pain, bloody stool Time Seen by Provider: 02/25/25 15:59 Source: patient Mode of arrival: Ambulatory History of Present Illness HPI Narrative: 44-year-old female history of hysterectomy appendectomy cholecystectomy gastric sleeve presents with coffee-ground emesis today along with diffuse worsening abdominal pain despite being on antibiotics for diverticulitis originally on Cipro and Flagyl switch to Augmentin. Patient denies being on any anticoagulants or recent use ibuprofen Aleve naproxen or aspirin use. Patient denies fever chills urinary complaints back pain. Than what is stated 14 point review of system is negative Related Data Home Medications ?Medication ?Instructions ?Recorded ?Confirmed metoclopramide HCl 5 mg tablet 5 mg PO QAC 07/24/24 02/21/25 (Reglan) clonazepam 0.5 mg tablet 0.5 mg PO BID 08/24/24 02/21/25 lamotrigine 100 mg tablet 100 mg PO DAILY 02/21/25 02/21/25 Previous Rx's ?Medication ?Instructions ?Recorded estradiol 0.5 mg tablet 0.5 mg PO DAILY #30 tabs 11/12/24 ondansetron 4 mg disintegrating 4 mg sublingual Q4HR PRN Nausea 30 01/27/25 tablet days #30 tabs lisinopril 5 mg tablet 5 mg PO DAILY #30 tabs 02/07/25 ciprofloxacin HCl 500 mg tablet 500 mg PO BID #14 tabs 02/18/25 (Cipro) metronidazole 500 mg tablet 500 mg PO Q8H #20 tabs 02/18/25 amoxicillin 875 mg-potassium 1 tab PO Q12H #20 tabs 02/21/25 clavulanate 125 mg tablet oxycodone 5 mg tablet 5 - 10 mg (1 - 2 x 5 mg) PO Q6H 02/21/25 PRN pain #30 tabs Allergies Allergy/AdvReac Type Severity Reaction Status Date / Time vancomycin Allergy Intermediate ITCHING Verified 02/25/25 16:03 gluten Allergy Celiac Verified 02/25/25 16:03 NSAIDS (Non-Steroidal AdvReac Mild Gastrointestinal Verified 02/25/25 16:03 Anti-Inflamma Upset benzonatate (From Tessalon AdvReac Unknown Hives Verified 02/21/25 15:19 Perlhan) escitalopram (From Lexapro) AdvReac Unknown Hallucinati Verified 02/21/25 15:19 ng Review of Systems Review of Systems ROS Unobtainable: All systems reviewed & are unremarkable except as noted in HPI and below Patient History Medical History Left corneal abrasion Headache Polycystic ovary disease Celiac disease GERD with apnea Hypertension Bipolar disorder Surgical History H/O: hysterectomy Status post tubal ligation History of section H/O abdominoplasty H/O oophorectomy H/O gastric sleeve History of cholecystectomy History of appendectomy Social History marital status: household members: significant other and children lives independently: Yes occupational status: employed alcohol intake: never substance use type: marijuana Smoking Status: Unknown if ever smoked alcohol intake frequency: holidays/special occasions only Exam Narrative Exam Narrative: GENERAL: [44] year old patient appears stated age. Well-developed patient, in mild distress. HEAD: Atraumatic. Normocephalic. EYES: Pupils equal round and reactive. Extraocular motions intact. No scleral icterus. No injection or drainage. ENT: Nose without bleeding, purulent drainage. Throat without erythema, tonsillar hypertrophy or exudate. Airway patent. NECK: Trachea midline. Non tender CARDIOVASCULAR: Regular rate and rhythm without murmurs, gallops, or rubs. RESPIRATORY: Clear to auscultation. Breath sounds equal bilaterally. No wheezes, rales, or rhonchi. GASTROINTESTINAL: Abdomen soft, diffuse tenderness to palpation no rebound rigidity guarding EXTREMITIES: No edema or joint tenderness. BACK: Nontender without deformity or crepitance. No flank tenderness. NEURO: AOx3. SKIN: No rash or erythema of visible areas Initial Vital Signs Initial Vital Signs: Vital Signs Temperature 98.1 F 02/25/25 15:55 Pulse Rate 112 H 02/25/25 15:55 Respiratory Rate 24 02/25/25 15:55 Blood Pressure 196/91 H 02/25/25 15:55 Pulse Oximetry 99 02/25/25 15:55 Oxygen Delivery Method Room Air 02/25/25 15:55 Course Orders Ordered: ED Orders 02/25/25 16:01 Complete Blood Count AUTO DIFF Stat Comprehensive Metabolic Panel Stat PTT Partial Thromboplastin Alex Stat Prothrombin Time INR Stat Type and Screen Stat Ondansetron HCl (Ondansetron 4 Mg/2 Ml Inj) 4 mg IV NOW PRN PRN Reason: Nausea And Vomiting Ondansetron HCl (Ondansetron 4 Mg Odt) 4 mg PO NOW PRN PRN Reason: Nausea And Vomiting Vital Signs Vital signs: Vital Signs - 8 hr 02/25/25 15:55 Temperature 98.1 F Pulse Rate 112 H Respiratory Rate 24 Blood Pressure 196/91 H Pulse Oximetry 99 Oxygen Delivery Method Room Air MDM - GI Bleed Imaging Data CT scan - abdomen/pelvis: Radiologist's Impression: [address] [address] [address] Scan Report Signed Patient: Janet Escobar MR#: [id number] : 1980 Acct:[id number] Age/Sex: 44 / F Date of Service: 02/25/25 Loc: ED Accession Number: [id number] Procedure: CT angio Abd/Pel GI Bleed Ordering Provider: Ramy Haddad D.O. PROCEDURE: CT ANGIO ABD/PEL GI BLEED INDICATIONS: Gi bleed/ diverticulitis TECHNIQUE: After the administration of intravenous contrast, 2.5 mm thick sections acquired from the diaphragm to the symphysis. 10 mm maximum-intensity projection (MIP) reformats were then acquired. For radiation dose reduction, the following was used: automated exposure control. COMPARISON: None. FINDINGS: Image Quality: Diagnostic. Abdominal aorta: No aortic aneurysm or evidence of acute aortic syndrome. Mesenteric arteries: Patent without hemodynamically significant stenosis. Renal arteries: Patent without hemodynamically significant stenosis. OTHER: Lower Chest: No significant findings. Liver: No solid mass. Gallbladder: The gallbladder is surgically absent. Biliary ducts: No biliary dilation. Pancreas: No ductal dilation. Spleen: A partially calcified cystic lesion is present within the spleen. Adrenal Glands: No adrenal nodules. Kidneys and Ureters: No hydronephrosis. No solid mass. No complex renal cystic lesion which requires follow up. Stomach and Bowel: The bowel demonstrates overall normal caliber and wall thickness. There are scattered sigmoid diverticula. Focal, circumferential wall thickening and pericolonic fat stranding is present within the superior sigmoid. No pneumatosis. No pneumoperitoneum. The appendix is not visualized; however surgical clips are present in the region of the cecum in the lower quadrant suggesting prior appendectomy. There is no arterial or portal venous phase contrast extravasation to suggest active Peritoneum: No abnormal intraperitoneal fluid. No free air. Ventral Wall: No hernia. Abdominal Nodes: No retroperitoneal or mesenteric adenopathy by size criteria. Vessels: Aorta and inferior vena cava are normal in size. PELVIS: Pelvic Organs: Unremarkable. Bladder: Unremarkable. Pelvic Nodes: No enlarged lymph nodes. Miscellaneous: No inguinal hernias are seen. Bones: No aggressive osseous abnormality. IMPRESSION: 1. No findings to suggest active GI hemorrhage. 2. Circumferential wall thickening and pericolonic fat stranding within the superior sigmoid colon. Scattered diverticula are noted in this region. Differential considerations include acute diverticulitis and acute colitis. No perforation. No pneumatosis. Dictated by: Monica Dennis M.D. on 02/25/2025 at 16:54 Approved by: Monica Dennis M.D. on 02/25/2025 at 17:01 MDM Narrative Medical decision making narrative: All lab work, vital signs, nurse triage note, medication list, previous ER visits, and all imaging studies reviewed. Patient given Cipro IV and Flagyl IV lactated ringer 1 L bolus Dilaudid x2 and Zofran here. CTA abdomen and pelvis showed no active GI hemorrhage. Circumferential wall thickening and pericolic fat stranding within the superior sigmoid colon scattered diverticula are noted in this region differential diagnosis includes acute diverticulitis and colitis no perforation no pneumatosis. Case discussed with Dr. Cage hospitalist service who has graciously accepted the patient for inpatient admission. Differential diagnosis includes GI bleed perforation diverticular abscess diverticulitis and failed outpatient therapy Discharge Plan Departure Patient Disposition: Admitted as Observation Clinical Impression: Acute diverticulitis Nausea & vomiting Qualifiers: Vomiting type: hematemesis Qualified Code(s): K92.0 - Hematemesis Admit Date/Time: 02/25/25 17:17 Admit Provider: Tai Cage V
--- NOTE | 2025-02-25 16:15 | DI.CT.S_ITS ---
PROCEDURE: CT ANGIO ABD/PEL GI BLEED INDICATIONS: Gi bleed/ diverticulitis TECHNIQUE: After the administration of intravenous contrast, 2.5 mm thick sections acquired from the diaphragm to the symphysis. 10 mm maximum-intensity projection (MIP) reformats were then acquired. For radiation dose reduction, the following was used: automated exposure control. COMPARISON: None. FINDINGS: Image Quality: Diagnostic. Abdominal aorta: No aortic aneurysm or evidence of acute aortic syndrome. Mesenteric arteries: Patent without hemodynamically significant stenosis. Renal arteries: Patent without hemodynamically significant stenosis. OTHER: Lower Chest: No significant findings. Liver: No solid mass. Gallbladder: The gallbladder is surgically absent. Biliary ducts: No biliary dilation. Pancreas: No ductal dilation. Spleen: A partially calcified cystic lesion is present within the spleen. Adrenal Glands: No adrenal nodules. Kidneys and Ureters: No hydronephrosis. No solid mass. No complex renal cystic lesion which requires follow up. Stomach and Bowel: The bowel demonstrates overall normal caliber and wall thickness. There are scattered sigmoid diverticula. Focal, circumferential wall thickening and pericolonic fat stranding is present within the superior sigmoid. No pneumatosis. No pneumoperitoneum. The appendix is not visualized; however surgical clips are present in the region of the cecum in the lower quadrant suggesting prior appendectomy. There is no arterial or portal venous phase contrast extravasation to suggest active Peritoneum: No abnormal intraperitoneal fluid. No free air. Ventral Wall: No hernia. Abdominal Nodes: No retroperitoneal or mesenteric adenopathy by size criteria. Vessels: Aorta and inferior vena cava are normal in size. PELVIS: Pelvic Organs: Unremarkable. Bladder: Unremarkable. Pelvic Nodes: No enlarged lymph nodes. Miscellaneous: No inguinal hernias are seen. Bones: No aggressive osseous abnormality. IMPRESSION: 1. No findings to suggest active GI hemorrhage. 2. Circumferential wall thickening and pericolonic fat stranding within the superior sigmoid colon. Scattered diverticula are noted in this region. Differential considerations include acute diverticulitis and acute colitis. No perforation. No pneumatosis. Dictated by: Monica Dennis M.D. on 02/25/2025 at 16:54 Approved by: Monica Dennis M.D. on 02/25/2025 at 17:01
[2025-02-25] MEDS: ONDANSETRON 4 MG/2 ML INJ IV (16:16)
[2025-02-25] MEDS: HYDROMORPHONE 1 MG INJ IV ×2 (16:20→16:57)
[2025-02-25] MEDS: LACTATED RINGERS 1,000 ML 1000 ML IV (16:21)
[2025-02-25 16:33] LABS: Add Manual Diff / Slide Review NO; Basophils Absolute Auto 100 /uL (0-100); Basophils Percent Auto 0.7 % (0-2); Eosinophils Absolute Auto 0 /uL (0-450); Eosinophils Percent Auto 0.1 % (2-4); Hematocrit 39.8 % (36-46); Hemoglobin 12.8 g/dL (12.0-16.0); Lymphocytes Absolute Auto 3600 /uL (1100-4500); Lymphocytes Percent Auto 24.5 % (25-40); Mean Corpuscular HGB Conc 32.2 % (30-36); Mean Corpuscular Hemoglobin 25.2 PG (26-34); Mean Corpuscular Volume 78.2 fL (80-100); Monocytes Absolute Auto 700 /uL (0-900); Monocytes Percent Auto 4.4 % (3-14); Neutrophils Absolute Auto 10500 /uL (1500-7000); Neutrophils Percent Auto 70.3 % (50-75); Platelet Count 484 X10^3/uL (150-400); Red Cell Distribution Width 17.2 % (11.6-14.8); White Blood Cell Count 14.9 X10^3/uL (4.5-11.0)
[2025-02-25 16:44] LABS: INR 1.1 (0.9-1.3); Prothrombin Time 12.1 SECONDS (9.4-12.5)
[2025-02-25 16:46] LABS: PTT Partial Thromboplastin Tim 31 SECONDS (25.1-36.5)
[2025-02-25 16:49] LABS: Alanine Aminotransferase 23 IU/L (<35); Albumin 5.1 g/dL (3.5-5.0); Albumin Globulin Ratio 1.6 (1.0-2.8); Alkaline Phosphatase 76 U/L (38-126); Aspartate Aminotransferase 26 IU/L (14-36); BUN Creatinine Ratio 22.4 (6-22); Blood Urea Nitrogen 13 mg/dL (7-17); Calcium 10.2 mg/dL (8.4-10.2); Carbon Dioxide 20 mmol/L (22-32); Chloride 108 mmol/L (98-107); Estimated Glomerular Filt Rate > 60 mL/min (>60); Globulin 3.2 g/dL (1.7-4.1); Glucose 133 mg/dL (70-99); HEMOLYSIS < 15 (0-50); Lipase 202 U/L (23-300); Potassium 4.1 mmol/L (3.4-5.1); Sodium 141 mmol/L (137-145); Total Protein 8.3 g/dL (6.3-8.2)
--- NOTE | 2025-02-25 17:13 | PC.NURSE ---
Pt sitting on stretcher, RA, A&Ox4, breathing even/equal/unlabored at this time. Pt appears in less discomfort after medications. Call light within reach, updated pt to plan of care.
--- NOTE | 2025-02-25 17:22 | PM.HP.IH.1 ---
History of Present Illness History of Present Illness Date Patient Seen: 02/25/25 Time Patient Seen: 17:40 Chief complaint: abdominal pain, bloody stool Narrative: 44-year-old woman recently hospitalized for acute diverticulitis, discharged on February 18, with history of hysterectomy, appendectomy, cholecystectomy, gastric sleeve presented with coffee-grounds emesis today with worsening of abdominal pain and melenic stools. She had originally been on ciprofloxacin and metronidazole switch to Augmentin for diverticulitis. She denies aspirin or NSAIDs noting she can not take those due to her prior gastric surgery. No fevers, chills, chest pain, shortness for breath, or change in chronic back pain complaint. [facility] Medical History Bipolar disorder Celiac disease GERD with apnea Headache Hypertension Left corneal abrasion Polycystic ovary disease Surgical History H/O abdominoplasty H/O gastric sleeve H/O oophorectomy H/O: hysterectomy History of appendectomy History of section History of cholecystectomy Status post tubal ligation Social History marital status: household members: significant other and children lives independently: Yes occupational status: employed Smoking Status: Unknown if ever smoked alcohol intake: never substance use type: marijuana Meds Home Medications and Allergies Home Medications ?Medication ?Instructions ?Recorded ?Confirmed ?Type metoclopramide HCl 5 mg tablet 5 mg PO QAC 07/24/24 02/21/25 History (Reglan) clonazepam 0.5 mg tablet 0.5 mg PO BID 08/24/24 02/21/25 History estradiol 0.5 mg tablet 0.5 mg PO DAILY #30 tabs 11/12/24 02/21/25 Rx ondansetron 4 mg disintegrating 4 mg sublingual Q4HR PRN Nausea 30 01/27/25 02/16/25 Rx tablet days #30 tabs lisinopril 5 mg tablet 5 mg PO DAILY #30 tabs 02/07/25 02/21/25 Rx ciprofloxacin HCl 500 mg tablet 500 mg PO BID #14 tabs 02/18/25 02/21/25 Rx (Cipro) metronidazole 500 mg tablet 500 mg PO Q8H #20 tabs 02/18/25 02/21/25 Rx amoxicillin 875 mg-potassium 1 tab PO Q12H #20 tabs 02/21/25 02/21/25 Rx clavulanate 125 mg tablet lamotrigine 100 mg tablet 100 mg PO DAILY 02/21/25 02/21/25 History oxycodone 5 mg tablet 5 - 10 mg (1 - 2 x 5 mg) PO Q6H 02/21/25 02/21/25 Rx PRN pain #30 tabs Allergies Allergy/AdvReac Type Severity Reaction Status Date / Time vancomycin Allergy Intermediate ITCHING Verified 02/25/25 16:03 gluten Allergy Celiac Verified 02/25/25 16:03 NSAIDS (Non-Steroidal AdvReac Mild Gastrointestinal Verified 02/25/25 16:03 Anti-Inflamma Upset benzonatate (From Tessalon AdvReac Unknown Hives Verified 02/21/25 15:19 Perles) escitalopram (From Lexapro) AdvReac Unknown Hallucinati Verified 02/21/25 15:19 ng Review of Systems Review of Systems ROS: Yes All systems reviewed with the patient and are negative except as otherwise documented Exam Vital Signs (past 8 hours): - 02/25/25 15:55 02/25/25 16:00 02/25/25 16:01 Temperature 98.1 F Pulse Rate 112 H 113 H Respiratory Rate 24 Blood Pressure 196/91 H 196/91 H Pulse Oximetry 99 97 Oxygen Delivery Method Room Air 02/25/25 16:01 02/25/25 16:39 02/25/25 17:00 Temperature Pulse Rate 114 H 83 92 H Respiratory Rate 14 38 H Blood Pressure Pulse Oximetry 99 98 98 Oxygen Delivery Method 02/25/25 17:01 02/25/25 17:01 Temperature Pulse Rate 91 H Respiratory Rate 30 H Blood Pressure 156/90 H Pulse Oximetry 98 Oxygen Delivery Method Oxygen Delivery Method Room Air Narrative Exam Narrative: GENERAL: This is a well-nourished, well-developed patient, appears uncomfortable, sitting up. HEAD: Atraumatic. Normocephalic. No temporal or scalp tenderness. EYES: Pupils equal round and reactive. Extraocular motions intact. No scleral icterus. No injection or drainage. ENT: Mucous membranes pink and moist. NECK: Trachea midline. No JVD, bruits or lymphadenopathy. Supple, nontender, no meningeal signs. CARDIOVASCULAR: Regular rate and rhythm without murmurs, gallops, or rubs. RESPIRATORY: Clear to auscultation. GASTROINTESTINAL: Abdomen soft, mild left-sided tenderness, no guarding, rebound or rigidity, nondistended. EXTREMITIES: No clubbing, cyanosis, or edema. BACK: Nontender without deformity or crepitance. No flank tenderness. NEUROLOGIC: Alert, oriented, speech fluent, full upper and lower motor strength, no focal deficits evident. DERMATOLOGIC: No rashes or skin lesions. Objective Imaging *: Radiologist's impression: 1. Abdomen-pelvis CT 02/14/2025: 1. Finding may represent proximal sigmoid colon diverticulitis with interval slightly increased wall thickening and edema compared to 01/23/2025 study. There is no abscess collection. No signs of perforation. 2. Other chronic findings are not significantly changed from previous study. 2. Abdomen-pelvis CT 02/15/2025: Recurrent mild inflammation in the proximal sigmoid suggesting acute on chronic diverticulitis. No evidence of complication such as perforation or abscess. No other changes. 3. Abdomen-pelvis CTA 02/25/2025: 1. No findings to suggest active GI hemorrhage. 2. Circumferential wall thickening and pericolonic fat stranding within the superior sigmoid colon. Scattered diverticula are noted in this region. Differential considerations include acute diverticulitis and acute colitis. No perforation. No pneumatosis. Labs 02/25/25 16:15 02/25/25 16:15 Labs: Laboratory Results - last 24 hr 02/25/25 16:15 WBC 14.9 H RBC 5.10 Hgb 12.8 Hct 39.8 MCV 78.2 L MCH 25.2 L MCHC 32.2 RDW 17.2 H Plt Count 484 H Neut % (Auto) 70.3 Lymph % (Auto) 24.5 L [place] % (Auto) 4.4 Eos % (Auto) 0.1 L Baso % (Auto) 0.7 Neut # (Auto) 39102 H Lymph # (Auto) 3600 [place] # (Auto) 700 Eos # (Auto) 0 Baso # (Auto) 100 PT 12.1 INR 1.1 APTT 31 Sodium 141 Potassium 4.1 Chloride 108 H Carbon Dioxide 20 L BUN 13 Creatinine 0.58 Estimated GFR > 60 BUN/Creatinine Ratio 22.4 H Glucose 133 H Calcium 10.2 Total Bilirubin 1.0 AST 26 ALT 23 Alkaline Phosphatase 76 Total Protein 8.3 H Albumin 5.1 H Globulin 3.2 Albumin/Globulin Ratio 1.6 Lipase 202 Blood Type A Positive Antibody Screen Negative Assessment & Plan Assessment & Plan narrative: 1. Acute diverticulitis. Persistent and requiring IV antibiotics and observation. Treat with IV ciprofloxacin and metronidazole. 2. GI bleed, possibly due to gastritis. Treat with IV ppi b.i.d.. 3. Recurrent nausea and vomiting. Administer antiemetics and routine medication. 4. Bipolar disorder. Continue routine psychiatric medication. DVT prophylaxis: SCDs. Avoid anticoagulants. Code status: Full code Disposition: The patient is admitted to observation status. She will possibly return home tomorrow on oral antibiotics if feeling better. Quality MIPS - Admit I confirm the patient?s Advance Care Plan is present, Code status is documented, Surrogate decision maker is in patient?s record [If Yes, STOP here]: Yes [facility] - Meds 'Current medications' to include all prescriptions, [id number] products, herbals, cannabis/cannabidiol products, and vitamin/mineral/dietary (nutritional) supplements. I have utilized all available resources to obtain, update, or review the patient?s current medications. [If Yes, STOP here]: Yes [employer] Document charge(s): No Charge Codes Initial inpatient/observation care: 48076
[2025-02-25] MEDS: metroNIDAZOLE 500 MG/100 ML PIGGYBACK 100 MG IV (17:26)
[2025-02-25] MEDS: METOCLOPRAMIDE 10 MG/2 ML INJ IV (17:52)
[2025-02-25] MEDS: CIPROFLOXACIN 400 MG/200 ML PIGGYBACK 200 MG IV (17:57)
[2025-02-25] MEDS: HYDROMORPHONE 0.5 MG INJ IV ×2 (18:50→23:20)
[2025-02-25] MEDS: OXYCODONE IR 5 MG TABLET PO (18:50)
[2025-02-25] MEDS: DEXTROSE 5%-0.45% NS 1,000 ML 100 ML IV ×2 (18:50→20:01)
[2025-02-25] MEDS: clonazePAM 0.5 MG TABLET PO (20:24)
[2025-02-25] MEDS: PANTOPRAZOLE 40 MG VIAL IV (20:24)
[2025-02-26] VITALS: BP 132/67; PULSE 80; RESP 18; TEMP 36.1; O2SAT 97
[2025-02-26] MEDS: metroNIDAZOLE 500 MG/100 ML PIGGYBACK 100 MG IV ×3 (01:48→16:52)
[2025-02-26] MEDS: OXYCODONE IR 5 MG TABLET PO ×3 (01:48→20:09)
[2025-02-26] MEDS: ONDANSETRON 4 MG/2 ML INJ IV ×2 (01:54→09:00)
[2025-02-26 04:00] VITALS: BP 107/72; PULSE 60; RESP 18; TEMP 36.3; O2SAT 99
[2025-02-26] MEDS: HYDROMORPHONE 0.5 MG INJ IV ×3 (04:32→13:01)
[2025-02-26] MEDS: CIPROFLOXACIN 400 MG/200 ML PIGGYBACK 200 MG IV (05:33)
[2025-02-26] MEDS: DEXTROSE 5%-0.45% NS 1,000 ML 100 ML IV ×2 (05:38→22:29)
[2025-02-26 06:49] LABS: Add Manual Diff / Slide Review NO; Basophils Absolute Auto 0 /uL (0-100); Basophils Percent Auto 0.5 % (0-2); Eosinophils Absolute Auto 100 /uL (0-450); Eosinophils Percent Auto 1.3 % (2-4); Hematocrit 32.7 % (36-46); Hemoglobin 10.7 g/dL (12.0-16.0); Lymphocytes Absolute Auto 3400 /uL (1100-4500); Lymphocytes Percent Auto 33.1 % (25-40); Mean Corpuscular HGB Conc 32.7 % (30-36); Mean Corpuscular Hemoglobin 25.6 PG (26-34); Mean Corpuscular Volume 78.2 fL (80-100); Monocytes Absolute Auto 1000 /uL (0-900); Monocytes Percent Auto 9.5 % (3-14); Neutrophils Absolute Auto 5700 /uL (1500-7000); Neutrophils Percent Auto 55.6 % (50-75); Platelet Count 371 X10^3/uL (150-400); Red Blood Cell Count 4.18 X10^6/uL (4.0-5.2); White Blood Cell Count 10.2 X10^3/uL (4.5-11.0)
[2025-02-26 07:01] LABS: Blood Urea Nitrogen 6 mg/dL (7-17); Calcium 8.9 mg/dL (8.4-10.2); Carbon Dioxide 25 mmol/L (22-32); Chloride 105 mmol/L (98-107); Estimated Glomerular Filt Rate > 60 mL/min (>60); Glucose 104 mg/dL (70-99); HEMOLYSIS < 15 (0-50); Potassium 3.6 mmol/L (3.4-5.1); Sodium 138 mmol/L (137-145)
[2025-02-26] MEDS: METOCLOPRAMIDE HCL 5 MG TABLET PO ×3 (07:51→16:52)
[2025-02-26 08:00] VITALS: BP 116/74; PULSE 64; RESP 17; TEMP 36.3; O2SAT 99
[2025-02-26] MEDS: clonazePAM 0.5 MG TABLET PO ×2 (09:35→20:09)
[2025-02-26] MEDS: lamoTRIgine 100 MG TABLET PO (09:35)
[2025-02-26] MEDS: PANTOPRAZOLE 40 MG VIAL IV ×2 (10:25→20:11)
[2025-02-26] MEDS: HYDROMORPHONE 1 MG INJ IV ×4 (10:25→22:23)
--- NOTE | 2025-02-26 10:31 | PM.PN.1 ---
Subjective Subjective Interval history: 44-year-old female previously admitted February 16 through February 18 with acute on chronic proximal sigmoid diverticulitis who was readmitted yesterday with recurrent left lower quadrant pain, nausea and vomiting, black tarry stool and ?coffee-ground? stool. Patient complained of nausea and vomiting this morning. She reports bilious emesis. She also reports her pain is at an 8/10. States after her hospitalization earlier this month, she feels her symptoms fully resolved. She states this current episode started yesterday. She previously had diverticulitis for which she was seen at this hospital in January. CT findings were significant for left descending colitis and secondary diverticulitis on January 17. CT findings on January 20 showed persistent although slightly improved appearance of previous focus of colitis secondary to diverticulitis in the descending/sigmoid colon. January 23 CT revealed suspected diverticulitis of the proximal sigmoid colon without evidence of perforation or abscess. January [address] showed no dilated bowel, no pneumoperitoneum, no free fluid. No hydronephrosis or kidney stones. Evidence of prior cholecystectomy and gastric sleeve. February he revealed proximal sigmoid colon diverticulitis with interval slightly increased wall thickening and edema compared to 01/23/2025 study. No abscess collection. No perforation. 02/15/2025 CT showed recurrent mild inflammation in the proximal sigmoid suggesting acute on chronic diverticulitis. No evidence of perforation or abscess. CT angiogram of the abdomen and pelvis done yesterday revealed no findings to suggest active GI hemorrhage. There is circumferential wall thickening and pericolonic fat stranding within the superior sigmoid colon. Scattered diverticuli were noted in this region. Differential considerations included acute diverticulitis and acute colitis. No perforation. No pneumatosis. Exam Vital Signs (past 8 hours): - 02/26/25 04:00 02/26/25 08:00 Temperature 97.4 F L 97.3 F L Pulse Rate 60 64 Respiratory Rate 18 17 Blood Pressure 107/72 116/74 Pulse Oximetry 99 99 Oxygen Delivery Method Room Air Oxygen Flow Rate 0 Narrative Exam Narrative: GEN: Uncomfortable appearing adult female, Alert and oriented x 3, NAD HEENT:NC, Face symmetric CHEST: Respiratory excursions symmetric, CTAB CV: RRR, no M/R/G ABD: Soft, obese, tender in the left lower quadrant, when palpating in the right lower quadrant it causes pain to the left lower quadrant/ND, BT present in all 4 quadrants, body habitus limits exam EXTR: warm, well perfused, no C/C/E SKIN: warm and dry, no rash NEURO: Alert and oriented x 3, nonfocal Objective Labs 02/26/25 05:40 02/26/25 05:40 Labs: Laboratory Results - last 24 hr 02/25/25 02/26/25 16:15 05:40 WBC 14.9 H 10.2 RBC 5.10 4.18 Hgb 12.8 10.7 L Hct 39.8 32.7 L MCV 78.2 L 78.2 L MCH 25.2 L 25.6 L MCHC 32.2 32.7 RDW 17.2 H 17.0 H Plt Count 484 H 371 Neut % (Auto) 70.3 55.6 Lymph % (Auto) 24.5 L 33.1 [place] % (Auto) 4.4 9.5 Eos % (Auto) 0.1 L 1.3 L Baso % (Auto) 0.7 0.5 Neut # (Auto) 61876 H 5700 Lymph # (Auto) 3600 3400 [place] # (Auto) 700 1000 H Eos # (Auto) 0 100 Baso # (Auto) 100 0 PT 12.1 INR 1.1 APTT 31 Sodium 141 138 Potassium 4.1 3.6 Chloride 108 H 105 Carbon Dioxide 20 L 25 BUN 13 6 L Creatinine 0.58 0.43 L Estimated GFR > 60 > 60 BUN/Creatinine Ratio 22.4 H 14.0 Glucose 133 H 104 H Calcium 10.2 8.9 Total Bilirubin 1.0 AST 26 ALT 23 Alkaline Phosphatase 76 Total Protein 8.3 H Albumin 5.1 H Globulin 3.2 Albumin/Globulin Ratio 1.6 Lipase 202 Blood Type A Positive Antibody Screen Negative [facility] Medical History Bipolar disorder Celiac disease GERD with apnea Headache Hypertension Left corneal abrasion Polycystic ovary disease Surgical History H/O abdominoplasty H/O gastric sleeve H/O oophorectomy H/O: hysterectomy History of appendectomy History of section History of cholecystectomy Status post tubal ligation Social History marital status: household members: significant other and children lives independently: Yes occupational status: employed Smoking Status: Never smoker alcohol intake: never substance use type: marijuana Assessment & Plan Assessment & Plan narrative: 1. Acute versus acute on chronic sigmoid diverticulitis Patient is admitted with either her 3rd episode of diverticulitis or now chronic sigmoid diverticulitis. She was placed on IV Cipro and Flagyl. This will be changed to ceftriaxone and Flagyl. She is having ongoing significant left lower quadrant pain. Will give a 1 time dose of IV Dilaudid 1 mg. She reports previously receiving ketamine for pain during a prior hospitalization. She did not tolerate that. For now, will continue Dilaudid. Advised, given recurrence/this being her 3rd episode of diverticulitis in a short period of time, she should pursue surgical consultation. She reports having a somewhat hostile abdomen with significant adhesions. I have encouraged her to consider evaluation at [facility] given those circumstances. She notes she does have a follow-up appointment with her self rising flour mixer at [facility] in the coming weeks. She is slated to have a colonoscopy. 2. Anemia of chronic blood loss She has had a prior hysterectomy. Her MCV is below 80 and her hemoglobin is in the 10 range. I have recommended she have a colonoscopy. She notes she had an EGD 7 or so months ago. Continue PPI for now. 3. Hypertension Blood pressures are normotensive. Will hold her lisinopril given her nausea and vomiting. 4. Previous gastric sleeve for obesity Continue PPI. Currently stable. 5. Nausea and vomiting Continue Reglan and Zofran as needed. Code status Full Prophylaxis Deferring chemical prophylaxis given her report of black tarry stools. She did have 1 dark stool this morning which was guaiac negative. Disposition Pending Time-Based Coding :: [TOTAL MINUTES] spent with patient and on the chart (including review of chart, obtaining history, exam, reviewing outside data, placing orders, documenting exam and treatment plan, and counseling patient) on [DATE]. Quality VTE Deep Vein Thrombosis/Pulmonary Embolism Present on Admission: No
[2025-02-26 12:00] VITALS: BP 124/67; PULSE 67; RESP 19; TEMP 36.4; O2SAT 98
[2025-02-26] MEDS: estradioL 1 MG TABLET 0.5 MG PO (13:01)
[2025-02-26] MEDS: cefTRIAXone 2,000 MG in SODIUM CHLORIDE 0.9% 100 ML 200 MG IV (13:01)
[2025-02-26 16:00] VITALS: BP 104/59; PULSE 77; RESP 21; TEMP 36.7; O2SAT 100
[2025-02-26 20:00] VITALS: BP 130/79; PULSE 64; RESP 20; TEMP 36.4; O2SAT 100
[2025-02-26] MEDS: ACETAMINOPHEN 325 MG TABLET 650 MG PO (20:08)
[2025-02-27] VITALS (7 sets, daily range): BP systolic 111–144; BP diastolic 59–78; PULSE 61–78; RESP 16–18; TEMP 36.1–36.8; O2SAT 98–100
[2025-02-27] MEDS: metroNIDAZOLE 500 MG/100 ML PIGGYBACK 100 MG IV ×3 (01:27→16:52)
[2025-02-27] MEDS: ACETAMINOPHEN 325 MG TABLET 650 MG PO (01:35)
[2025-02-27] MEDS: OXYCODONE IR 5 MG TABLET PO ×4 (01:36→21:16)
[2025-02-27] MEDS: HYDROMORPHONE 1 MG INJ IV ×4 (05:28→20:52)
[2025-02-27 06:47] LABS: Add Manual Diff / Slide Review NO; Basophils Absolute Auto 0 /uL (0-100); Basophils Percent Auto 0.7 % (0-2); Eosinophils Absolute Auto 200 /uL (0-450); Eosinophils Percent Auto 3.3 % (2-4); Hemoglobin 10.1 g/dL (12.0-16.0); Lymphocytes Absolute Auto 2200 /uL (1100-4500); Lymphocytes Percent Auto 41.1 % (25-40); Mean Corpuscular HGB Conc 32.7 % (30-36); Mean Corpuscular Hemoglobin 25.5 PG (26-34); Mean Corpuscular Volume 78.1 fL (80-100); Monocytes Absolute Auto 600 /uL (0-900); Monocytes Percent Auto 12.3 % (3-14); Neutrophils Absolute Auto 2200 /uL (1500-7000); Neutrophils Percent Auto 42.6 % (50-75); Platelet Count 290 X10^3/uL (150-400); Red Blood Cell Count 3.97 X10^6/uL (4.0-5.2); Red Cell Distribution Width 17.2 % (11.6-14.8); White Blood Cell Count 5.2 X10^3/uL (4.5-11.0)
[2025-02-27 07:02] LABS: BUN Creatinine Ratio 6.7 (6-22); Blood Urea Nitrogen 3 mg/dL (7-17); Calcium 8.5 mg/dL (8.4-10.2); Carbon Dioxide 25 mmol/L (22-32); Chloride 107 mmol/L (98-107); Estimated Glomerular Filt Rate > 60 mL/min (>60); Glucose 94 mg/dL (70-99); HEMOLYSIS < 15 (0-50); Potassium 3.3 mmol/L (3.4-5.1); Sodium 139 mmol/L (137-145)
--- NOTE | 2025-02-27 07:52 | CM.DANOTE ---
Patient is a 44 yo female who was admitted INPT Status on 02/25/25 for Abd Pain and bloody stool. Per MD, pt readmit for hx of chronic diverticulitisflares, presents within 30-days of her last discharge for the same concerns. She had been sent home on oral antibiotics. CT Abd/Pelvis imaging in the ED confirmed acute/chronic diverticulitis. Per MD, pt already established with GI but likely will need outpt f/u with Surgeon to determine likely need for surgical intervention due to her mutliple admissions for same symptoms. DCP will continue to monitor for any further evolving d/c assistance/resource needs. Payor: [facility] PCP: Dr. Dunbar Reviewed EMR and team rounds for pt's medical status and updates. Met with pt at bedside to introduce self and role, pt was found to be alert/oriented, resting quietly in bed. Pt lives independently at baseline with her and children in their own home in [place]. Pt's spouse will provide transport once she's medically cleared for home d/c, pt hopeful to get her abdominal pain controlled and reduce her admissions and need to come to the ED. GIO López Discharge Planning/Care Management CM Discharge Assessment Start: 02/25/25 17:42 Freq: Status: Active Protocol: Document 02/27/25 07:50 BF (Rec: 02/27/25 07:51 BF [id number]) Discharge Planning Assessment Assigned Discharge GIO Camilo Front End Mechanic DPOA/Assigned spouse Maykel Designee Name Contact Information [phone] Advance Directives? No Advance Directives No on File History Provided By Patient,Medical Record Has Patient been Yes admitted in last 30 days? Prior Living House Arrangements Household Members significant other,children Type of Drives own vehicle transporation used prior to admit Independent with ADL Yes 's Is patient alert and Yes oriented? Caregiver for No: older Dtr at home Another Comment Established with GI at baseline Comment Patient has a bath chair to help her relax in shower if she has a migraine. Barriers to No Discharge Comment Home w/ S.O. expected Discharge Plan Home Transportation Spouse can transport home at d/c Arrangement Referrals Initiated None needed Additional Comment Likely outpt f/u with Surgeon Whiteboard Updated Yes in Patient Room with name and ext. # of Automatic Steel Tie Adjuster Review Status In Process Please Provide Date 02/27/25 Initial DC Assessment Was Performed Next Review Type Continued Stay Review
[2025-02-27] MEDS: clonazePAM 0.5 MG TABLET PO ×2 (08:43→20:52)
[2025-02-27] MEDS: METOCLOPRAMIDE HCL 5 MG TABLET PO ×3 (08:43→16:52)
[2025-02-27] MEDS: estradioL 1 MG TABLET 0.5 MG PO (08:44)
[2025-02-27] MEDS: lamoTRIgine 100 MG TABLET PO (08:45)
[2025-02-27] MEDS: PANTOPRAZOLE 40 MG VIAL IV ×2 (08:47→20:51)
[2025-02-27] MEDS: HYDROMORPHONE 0.5 MG INJ IV (09:40)
[2025-02-27] MEDS: DEXTROSE 5%-0.45% NS 1,000 ML 100 ML IV ×2 (10:57→11:51)
--- NOTE | 2025-02-27 13:10 | CM.DPC ---
DCP Cont: Per MD, pt with recurrent diverticulitis acute on chronic and having some ongoing pain control issues and dilaudid dose adjusted. Pt with n/v yesterday and nausea today and not yet stable for discharge. GIO López
[2025-02-27] MEDS: POTASSIUM CHLORIDE 20 MEQ TAB 40 MEQ PO ×2 (13:13→19:16)
[2025-02-27] MEDS: cefTRIAXone 2,000 MG in SODIUM CHLORIDE 0.9% 100 ML 200 MG IV (13:13)
--- NOTE | 2025-02-27 20:06 | P.PN_ITS ---
Subjective Subjective Interval history: 44-year-old female previously admitted February 16 through February 18 with acute on chronic proximal sigmoid diverticulitis who was readmitted 02/25/2025 with recurrent left lower quadrant pain, nausea and vomiting, black tarry stool and ?coffee-ground? stool. Yesterday, patient had nausea, vomiting, and complained of pain 8/10. Today, she states she was able to have both breakfast and lunch. She is feeling quite a bit better and overall notes that she feels improved. She continues to have pain in the left lower quadrant but it is less uncomfortable when she palpates other parts of her abdomen. History: She previously had diverticulitis for which she was seen at this hospital in January. CT findings were significant for left descending colitis and secondary diverticulitis on January 17. CT findings on January 20 showed persistent although slightly improved appearance of previous focus of colitis secondary to diverticulitis in the descending/sigmoid colon. January 23 CT revealed suspected diverticulitis of the proximal sigmoid colon without evidence of perforation or abscess. January [address] showed no dilated bowel, no pneumoperitoneum, no free fluid. No hydronephrosis or kidney stones. Evidence of prior cholecystectomy and gastric sleeve. February he revealed proximal sigmoid colon diverticulitis with interval slightly increased wall thickening and edema compared to 01/23/2025 study. No abscess collection. No perforation. 02/15/2025 CT showed recurrent mild inflammation in the proximal sigmoid suggesting acute on chronic diverticulitis. No evidence of perforation or abscess. CT angiogram of the abdomen and pelvis done yesterday revealed no findings to suggest active GI hemorrhage. There is circumferential wall thickening and pericolonic fat stranding within the superior sigmoid colon. Scattered diverticuli were noted in this region. Differential considerations included acute diverticulitis and acute colitis. No perforation. No pneumatosis. Exam Vital Signs (past 8 hours): - 02/27/25 16:00 02/27/25 17:00 Temperature 98.1 F 98.3 F Pulse Rate 69 61 Respiratory Rate 17 18 Blood Pressure 125/62 144/72 H Pulse Oximetry 100 98 Oxygen Flow Rate 0 Oxygen Delivery Method Room Air Oxygen Flow Rate 0 Narrative Exam Narrative: GEN: Very pleasant adult female, Alert and oriented x 3, NAD HEENT:NC, Face symmetric CHEST: Respiratory excursions symmetric, CTAB CV: RRR, no M/R/G ABD: Soft, obese, significant tenderness with palpation in the left lower quadrant, decreased tenderness when palpating the suprapubic and right lower quadrant BT present in all 4 quadrants, body habitus limits exam EXTR: warm, well perfused, no C/C/E SKIN: warm and dry, no rash NEURO: Alert and oriented x 3, nonfocal Objective Labs 02/27/25 06:20 02/27/25 06:20 Labs: Laboratory Results - last 24 hr 02/27/25 06:20 WBC 5.2 RBC 3.97 L Hgb 10.1 L Hct 31.0 L MCV 78.1 L MCH 25.5 L MCHC 32.7 RDW 17.2 H Plt Count 290 Neut % (Auto) 42.6 L Lymph % (Auto) 41.1 H Chambers % (Auto) 12.3 Eos % (Auto) 3.3 Baso % (Auto) 0.7 Neut # (Auto) 2200 Lymph # (Auto) 2200 [place] # (Auto) 600 Eos # (Auto) 200 Baso # (Auto) 0 Sodium 139 Potassium 3.3 L Chloride 107 Carbon Dioxide 25 BUN 3 L Creatinine 0.45 L Estimated GFR > 60 BUN/Creatinine Ratio 6.7 Glucose 94 Calcium 8.5 PFSH Medical History Bipolar disorder Celiac disease GERD with apnea Headache Hypertension Left corneal abrasion Polycystic ovary disease Surgical History H/O abdominoplasty H/O gastric sleeve H/O oophorectomy H/O: hysterectomy History of appendectomy History of section History of cholecystectomy Status post tubal ligation Social History marital status: household members: significant other and children lives independently: Yes occupational status: employed Smoking Status: Never smoker alcohol intake: never substance use type: marijuana Assessment & Plan Assessment & Plan narrative: 1. Acute versus acute on chronic sigmoid diverticulitis Patient is admitted with either her 3rd episode of diverticulitis or now chronic sigmoid diverticulitis. She was initially placed on IV Cipro and Flagyl. Yesterday, she was changed to IV ceftriaxone and Flagyl. Pain is improved with combination of oral oxycodone and increase in Dilaudid from 0.5-1 mg q.2h as needed. She is following up with her distribution center administrator in early March. Plan will be a colonoscopy for further evaluation of her microcytic anemia. Following that, I have recommended she see consultation by General surgery at [facility] to consider surgical treatment of her sigmoid diverticulosis given her recurrent frequent diverticulitis 2. Anemia of chronic blood loss She has had a prior hysterectomy. Her MCV is below 80 and her hemoglobin is in the 10 range. I have recommended she have a colonoscopy. She notes she had an EGD 7 or so months ago. Continue PPI for now. 3. Hypertension Blood pressures remain mostly normotensive. Will continue to hold her lisinopril for 1 more day. 4. Previous gastric sleeve for obesity Continue PPI. Currently stable. 5. Nausea and vomiting Continue Reglan and Zofran as needed. Code status Full Prophylaxis Deferring chemical prophylaxis given her report of black tarry stools and microcytic anemia. She did have 1 dark stool yesterday morning which was guaiac negative. Disposition Probable discharge home tomorrow. Would consider oral hydromorphone for pain at discharge as it has been ineffective medication for her. Time-Based Coding :: [TOTAL MINUTES] spent with patient and on the chart (including review of chart, obtaining history, exam, reviewing outside data, placing orders, documenting exam and treatment plan, and counseling patient) on [DATE]. Quality VTE Deep Vein Thrombosis/Pulmonary Embolism Present on Admission: No
[2025-02-28] VITALS: BP 117/71; PULSE 80; RESP 20; TEMP 36.7; O2SAT 100
[2025-02-28] MEDS: HYDROMORPHONE 1 MG INJ IV ×8 (00:09→21:06)
[2025-02-28] MEDS: metroNIDAZOLE 500 MG/100 ML PIGGYBACK 100 MG IV ×3 (00:09→16:31)
[2025-02-28] MEDS: DEXTROSE 5%-0.45% NS 1,000 ML 100 ML IV (01:43)
[2025-02-28] MEDS: OXYCODONE IR 5 MG TABLET PO ×2 (03:38→09:37)
[2025-02-28 04:00] VITALS: BP 123/72; PULSE 68; RESP 20; TEMP 36.5; O2SAT 100
[2025-02-28 06:43] LABS: Carbon Dioxide 26 mmol/L (22-32); Chloride 108 mmol/L (98-107); Estimated Glomerular Filt Rate > 60 mL/min (>60); Glucose 93 mg/dL (70-99); HEMOLYSIS < 15 (0-50); Magnesium 1.5 mg/dL (1.6-2.3); Potassium 3.7 mmol/L (3.4-5.1); Sodium 138 mmol/L (137-145)
[2025-02-28 07:04] LABS: BUN Creatinine Ratio 4.5 (6-22); Blood Urea Nitrogen < 2 mg/dL (7-17)
[2025-02-28] MEDS: METOCLOPRAMIDE HCL 5 MG TABLET PO ×3 (07:25→16:31)
[2025-02-28] MEDS: estradioL 1 MG TABLET 0.5 MG PO (09:32)
[2025-02-28] MEDS: clonazePAM 0.5 MG TABLET PO ×2 (09:32→21:05)
[2025-02-28] MEDS: lamoTRIgine 100 MG TABLET PO (09:32)
[2025-02-28] MEDS: PANTOPRAZOLE 40 MG VIAL IV ×2 (09:33→21:05)
[2025-02-28] MEDS: ONDANSETRON 4 MG/2 ML INJ IV ×2 (09:38→19:05)
[2025-02-28] MEDS: MAGNESIUM CHLORIDE 64 MG TABLET 128 MG PO (10:08)
[2025-02-28 10:40] VITALS: BP 145/79; PULSE 72; RESP 16; TEMP 36.6; O2SAT 99
[2025-02-28] MEDS: cefTRIAXone 2,000 MG in SODIUM CHLORIDE 0.9% 100 ML 200 MG IV (12:37)
[2025-02-28 14:00] VITALS: BP 108/53; PULSE 65; RESP 16; TEMP 36.5; O2SAT 99
[2025-02-28] MEDS: HYDROMORPHONE 2 MG TABLET PO (14:01)
[2025-02-28 17:00] VITALS: BP 142/98; PULSE 71; RESP 17; TEMP 36.7; O2SAT 98
--- NOTE | 2025-02-28 19:31 | PM.PN.1 ---
Subjective Subjective Interval history: 44-year-old female previously admitted February 16 through February 18 with acute on chronic proximal sigmoid diverticulitis who was readmitted 02/25/2025 with recurrent left lower quadrant pain, nausea and vomiting, black tarry stool and ?coffee-ground? stool. Continues to have persistent LLQ pain. Attempted regular breakfast but vomited after. Back on Clear liquids to occasional fulls this afternoon. Exam Vital Signs (past 8 hours): - 02/28/25 14:00 02/28/25 17:00 Temperature 97.7 F 98.0 F Pulse Rate 65 71 Respiratory Rate 16 17 Blood Pressure 108/53 L 142/98 H Pulse Oximetry 99 98 Oxygen Flow Rate 0 0 Oxygen Delivery Method Room Air Oxygen Flow Rate 0 Narrative Exam Narrative: GEN: Very pleasant adult female, Alert and oriented x 3, NAD EXTR: warm, well perfused, no C/C/E SKIN: warm and dry, no rash NEURO: Alert and oriented x 3, nonfocal Objective Labs 02/27/25 06:20 02/28/25 05:40 Labs: Laboratory Results - last 24 hr 02/28/25 05:40 Sodium 138 Potassium 3.7 Chloride 108 H Carbon Dioxide 26 BUN < 2 L Creatinine 0.44 L Estimated GFR > 60 BUN/Creatinine Ratio 4.5 L Glucose 93 Calcium 8.0 L Magnesium 1.5 L PFSH Medical History Bipolar disorder Celiac disease GERD with apnea Headache Hypertension Left corneal abrasion Polycystic ovary disease Surgical History H/O abdominoplasty H/O gastric sleeve H/O oophorectomy H/O: hysterectomy History of appendectomy History of section History of cholecystectomy Status post tubal ligation Social History marital status: household members: significant other and children lives independently: Yes occupational status: employed Smoking Status: Never smoker alcohol intake: never substance use type: marijuana Assessment & Plan Assessment & Plan narrative: 1. Acute versus acute on chronic sigmoid diverticulitis Patient is admitted with either her 3rd episode of diverticulitis or now chronic sigmoid diverticulitis. She was initially placed on IV Cipro and Flagyl. Yesterday, she was changed to IV ceftriaxone and Flagyl. Pain is improved with combination of oral oxycodone and increase in Dilaudid from 0.5-1 mg q.2h as needed. She is following up with her insurance verification specialist in early March. Plan will be a colonoscopy for further evaluation of her microcytic anemia. - Consider outpatient surgical consultation in coordination with GI. - if continued pain tomorrow without significant change consider repeat imaging. 2. Anemia of chronic blood loss She has had a prior hysterectomy. Her MCV is below 80 and her hemoglobin is in the 10 range. I have recommended she have a colonoscopy. She notes she had an EGD 7 or so months ago. Continue PPI for now. 3. Hypertension Blood pressures remain mostly normotensive though slightly higher today. Will resume home lisinopril. 4. Previous gastric sleeve for obesity Continue PPI. Currently stable. 5. Nausea and vomiting Continue Reglan and Zofran as needed. Code status Full Prophylaxis Deferring chemical prophylaxis given her report of black tarry stools and microcytic anemia. She did have 1 dark stool yesterday morning which was guaiac negative. Disposition Discharge home when abdominal pain improved, hopefully 1-2 more days. Time-Based Coding :: [TOTAL MINUTES] spent with patient and on the chart (including review of chart, obtaining history, exam, reviewing outside data, placing orders, documenting exam and treatment plan, and counseling patient) on [DATE]. Quality VTE Deep Vein Thrombosis/Pulmonary Embolism Present on Admission: No
[2025-02-28 20:00] VITALS: BP 121/65; PULSE 65; RESP 16; O2SAT 98
[2025-02-28] MEDS: HYDROMORPHONE 2 MG TABLET 4 MG PO (22:05)
[2025-03-01] MEDS: metroNIDAZOLE 500 MG/100 ML PIGGYBACK 100 MG IV ×3 (00:33→18:00)
[2025-03-01 01:03] VITALS: BP 132/87; PULSE 79; RESP 16; TEMP 36.8; O2SAT 100
[2025-03-01 04:48] VITALS: BP 108/72; PULSE 58; RESP 16; O2SAT 98
[2025-03-01] MEDS: HYDROMORPHONE 1 MG INJ IV ×4 (05:36→20:31)
[2025-03-01 06:04] LABS: Add Manual Diff / Slide Review NO; Basophils Absolute Auto 100 /uL (0-100); Basophils Percent Auto 0.8 % (0-2); Eosinophils Absolute Auto 200 /uL (0-450); Hematocrit 30.7 % (36-46); Hemoglobin 10.2 g/dL (12.0-16.0); Lymphocytes Absolute Auto 2000 /uL (1100-4500); Lymphocytes Percent Auto 27.9 % (25-40); Mean Corpuscular HGB Conc 33.2 % (30-36); Mean Corpuscular Volume 78.2 fL (80-100); Monocytes Absolute Auto 700 /uL (0-900); Monocytes Percent Auto 9.5 % (3-14); Neutrophils Absolute Auto 4300 /uL (1500-7000); Neutrophils Percent Auto 58.8 % (50-75); Platelet Count 288 X10^3/uL (150-400); Red Blood Cell Count 3.92 X10^6/uL (4.0-5.2); White Blood Cell Count 7.3 X10^3/uL (4.5-11.0)
[2025-03-01 06:16] LABS: BUN Creatinine Ratio 12.5 (6-22); Blood Urea Nitrogen 6 mg/dL (7-17); Calcium 8.5 mg/dL (8.4-10.2); Carbon Dioxide 28 mmol/L (22-32); Chloride 105 mmol/L (98-107); Estimated Glomerular Filt Rate > 60 mL/min (>60); Glucose 95 mg/dL (70-99); HEMOLYSIS 34 (0-50); Sodium 138 mmol/L (137-145)
[2025-03-01 06:19] LABS: Magnesium 1.8 mg/dL (1.6-2.3)
[2025-03-01] MEDS: HYDROMORPHONE 2 MG TABLET 4 MG PO ×5 (06:41→22:41)
[2025-03-01 09:00] VITALS: BP 138/96; PULSE 74; RESP 16; TEMP 36.6; O2SAT 97
[2025-03-01] MEDS: estradioL 1 MG TABLET 0.5 MG PO (09:16)
[2025-03-01] MEDS: lamoTRIgine 100 MG TABLET PO (09:17)
[2025-03-01] MEDS: lisinopriL 5 MG TABLET PO (09:17)
[2025-03-01] MEDS: METOCLOPRAMIDE HCL 5 MG TABLET PO ×3 (09:17→17:59)
[2025-03-01] MEDS: PANTOPRAZOLE 40 MG VIAL IV ×2 (09:18→20:31)
--- NOTE | 2025-03-01 10:21 | DI.CT.S_ITS ---
PROCEDURE: CT ABDOMEN PELVIS W CON INDICATIONS: persistent severe LLQ pain, nausea, r/o abscess TECHNIQUE: After the administration of intravenous contrast, axial sections acquired from the lung bases to the pubic symphysis. Coronal and sagittal reformats were performed. For radiation dose reduction, the following was used: automated exposure control, adjustment of mA and/or kV according to patient size. COMPARISON: [facility], CT, CT ANGIO ABD/PEL GI BLEED, 02/25/2025, 16:25. [facility], CT, CT ABDOMEN PELVIS W CON, 02/15/2025, 20:50. FINDINGS: Image quality: Diagnostic. Lower Chest: No significant findings. ABDOMEN: Liver: No solid mass. Gallbladder: Cholecystectomy. Biliary ducts: No biliary dilation. Pancreas: Normal size and morphology without visible ductal dilatation or inflammation. Spleen: Thin-walled, upper pole, peripherally calcified, 4.7 cm splenic cyst. Adrenal Glands: No adrenal nodules. Kidneys and Ureters: Symmetric enhancement. No nephrolithiasis or hydronephrosis. No visible mass or cyst requiring follow up. No hydroureter. Stomach and Bowel: Persistent, minor circumferential wall thickening and trace adjacent inflammation with fascial thickening at the proximal sigmoid. No extraluminal gas or associated fluid. No pelvic fluid collection. The colon is otherwise normal. Stomach and small bowel loops are within normal limits. No obstruction. Peritoneum: No free air or free fluid. Ventral Wall: No significant ventral hernia. Abdominal Nodes: No retroperitoneal or mesenteric adenopathy by size criteria. Vessels: The abdominal aorta, IVC, and portal vein are of normal caliber. PELVIS: Pelvic Organs: Hysterectomy. Right ovary contains two dominant follicles. Left ovary is not well seen. Bladder: No stones or wall thickening. Pelvic Nodes: No enlarged lymph nodes. Miscellaneous: No inguinal hernias are seen. Bones: No aggressive osseous abnormality. IMPRESSION: Minimal focal inflammatory changes in the proximal sigmoid colon with adjacent fascial thickening. Degree of inflammation has decreased since 02/15/25. No residual drainable fluid collection or perforation. Incidental findings are stable. Dictated by: Jamee Marcano M.D. on 03/01/2025 at 12:26 Approved by: Jamee Marcano M.D. on 03/01/2025 at 12:34
--- NOTE | 2025-03-01 10:56 | CM.DPNOTE ---
DCP Note SR. DIRECTOR PRODUCT MANAGEMENT reviewed EMR per provider in morning rounds, plan for CT today to see if there's an abscess vs something trapped internally. CT will inform medical POC moving forward. per bedside RN, pt remains on IV pain meds no new CM needs identified at this time. P: anticipate home with family when medically stable, no identified barriers to safe return home identified at this time. CM team will continue to follow closely in case any DCP needs should arise. GIO Mercer
--- NOTE | 2025-03-01 11:01 | PC.NURSE ---
Patient is taking po dilaudid and alternating with iv dilaudid for discomfort to lower abdomen. BT hypoactive x4. Up independently and resting now.
[2025-03-01] MEDS: cefTRIAXone 2,000 MG in SODIUM CHLORIDE 0.9% 100 ML 200 MG IV (12:21)
--- NOTE | 2025-03-01 12:37 | PM.PN.1 ---
Subjective Subjective Interval history: 44-year-old female previously admitted February 16 through February 18 with acute on chronic proximal sigmoid diverticulitis who was readmitted 02/25/2025 with recurrent left lower quadrant pain, nausea and vomiting, black tarry stool and ?coffee-ground? stool. Continues to have persistent LLQ pain. Attempted food again but vomited after. Repeat CT ordered which showed improving inflammation. Exam Vital Signs (past 8 hours): - 03/01/25 04:48 03/01/25 09:00 Temperature 97.9 F Pulse Rate 58 L 74 Respiratory Rate 16 16 Blood Pressure 108/72 138/96 H Pulse Oximetry 98 97 Oxygen Flow Rate 0 0 Oxygen Delivery Method Room Air Oxygen Flow Rate 0 Narrative Exam Narrative: GEN: Very pleasant adult female, Alert and oriented x 3, NAD EXTR: warm, well perfused, no C/C/E SKIN: warm and dry, no rash NEURO: Alert and oriented x 3, nonfocal Objective Labs 03/01/25 05:30 03/01/25 05:30 Labs: Laboratory Results - last 24 hr 03/01/25 05:30 WBC 7.3 RBC 3.92 L Hgb 10.2 L Hct 30.7 L MCV 78.2 L MCH 26.0 MCHC 33.2 RDW 17.0 H Plt Count 288 Neut % (Auto) 58.8 Lymph % (Auto) 27.9 [place] % (Auto) 9.5 Eos % (Auto) 3.0 Baso % (Auto) 0.8 Neut # (Auto) 4300 Lymph # (Auto) 2000 [place] # (Auto) 700 Eos # (Auto) 200 Baso # (Auto) 100 Sodium 138 Potassium 4.0 Chloride 105 Carbon Dioxide 28 BUN 6 L Creatinine 0.48 L Estimated GFR > 60 BUN/Creatinine Ratio 12.5 Glucose 95 Calcium 8.5 Magnesium 1.8 PFSH Medical History Bipolar disorder Celiac disease GERD with apnea Headache Hypertension Left corneal abrasion Polycystic ovary disease Surgical History H/O abdominoplasty H/O gastric sleeve H/O oophorectomy H/O: hysterectomy History of appendectomy History of section History of cholecystectomy Status post tubal ligation Social History marital status: household members: significant other and children lives independently: Yes occupational status: employed Smoking Status: Never smoker alcohol intake: never substance use type: marijuana Assessment & Plan Assessment & Plan narrative: 1. Acute versus acute on chronic sigmoid diverticulitis Patient is admitted with either her 3rd episode of diverticulitis or now chronic sigmoid diverticulitis. She was initially placed on IV Cipro and Flagyl. Yesterday, she was changed to IV ceftriaxone and Flagyl. Pain is improved with combination of oral oxycodone and increase in Dilaudid from 0.5-1 mg q.2h as needed. She is following up with her blue line operator in early March. Plan will be a colonoscopy for further evaluation of her microcytic anemia. - Consider outpatient surgical consultation in coordination with GI. - given continued pain ordered repeat CT 03/01 which showed improving inflammation. Continue current medical management. 2. Anemia of chronic blood loss She has had a prior hysterectomy. Her MCV is below 80 and her hemoglobin is in the 10 range. I have recommended she have a colonoscopy. She notes she had an EGD 7 or so months ago. Continue PPI for now. H/h is stable around 10 for several days now. 3. Hypertension Blood pressures remain mostly normotensive though slightly higher today. Will resume home lisinopril. 4. Previous gastric sleeve for obesity Continue PPI. Currently stable. 5. Nausea and vomiting Continue Reglan and Zofran as needed. Code status Full Prophylaxis Deferring chemical prophylaxis given her report of black tarry stools and microcytic anemia. She did have 1 dark stool yesterday morning which was guaiac negative. Disposition Discharge home when abdominal pain improved, hopefully 1-2 more days. Time-Based Coding :: [TOTAL MINUTES] spent with patient and on the chart (including review of chart, obtaining history, exam, reviewing outside data, placing orders, documenting exam and treatment plan, and counseling patient) on [DATE]. Quality VTE Deep Vein Thrombosis/Pulmonary Embolism Present on Admission: No
[2025-03-01 13:00] VITALS: BP 97/57; PULSE 62; RESP 16; TEMP 36.2; O2SAT 99
--- NOTE | 2025-03-01 14:34 | DIET.CONS ---
Dietary Consultation Note Admission Date: 02/25/2025 17:17 Assessment: 44 y F admitted for diverticulitis. Dietitian screened for MNA. Met with pt at bedside. Weight stable. Doing soft foods/bland diet since beginning of January (turkish yogurt, rice, liquids). Emesis after lunch today, tolerated the dinner last night. Ht: 167.64 cm Wt: 90 kg BMI: 32.3 UBW: 88.451 kg on 11/17/24 Last BM: 03/01/25 (03/01/25 13:00) MNA: 9 Maxwell Score: 20 Diet: 02/28/25 Breakfast General (Regular) Diet Diet Modifications: Food Texture: Level 7 - Regular Liquid Consistency: Level 0 - Thin Nutrition Percent Meal Consumed 50% 02/28/25 18:00 Percent Meal Consumed 50% 02/27/25 18:00 Labs: RBC 3.92 X10^6/uL (4.0-5.2) L 03/01/25 05:30 Hgb 10.2 g/dL (12.0-16.0) L 03/01/25 05:30 Hct 30.7 % (36-46) L 03/01/25 05:30 Creatinine 0.48 mg/dL (0.52-1.04) L 03/01/25 05:30 Nutrition Diagnosis: Inadequate oral intakes r/t altered GI tract aeb diverticulitis with <75% of estimated energy intake for 1 week per recorded PO intakes and pt report Interventions: 1. ONS max trial tonight Monitoring/Evaluations: PO intakes Electronically Signed by: Ritika Evans 03/01/25 14:34 Clinical Dietitian [address] [id number]
--- NOTE | 2025-03-01 16:01 | PC.NURSE ---
Patient arrived to the floor [id number]. He has a 3-way johnson that is putting out grade 3 colored urine (pink/red) and irrigation is NACL wide open. Patients catheter bag has to be emptied approximately every 10 minutes as it fills up fast. He denies pain. Catheter is working well, patient has 5 lap incisions across his abdomen that are all durmobonded and one to the left is slightly bigger as patient had to have a bowel resection and prostatectomy. He is visiting with his now.
[2025-03-01 17:00] VITALS: BP 135/90; PULSE 83; RESP 16; TEMP 36.6; O2SAT 100
[2025-03-01] MEDS: clonazePAM 0.5 MG TABLET PO (20:31)
[2025-03-01] MEDS: SCOPOLAMINE 1 PATCH TOP (20:32)
[2025-03-01 21:00] VITALS: BP 141/81; PULSE 64; RESP 18; TEMP 36.9; O2SAT 100
[2025-03-01] MEDS: LORazepam 1 MG TABLET PO (22:41)
[2025-03-02] MEDS: HYDROMORPHONE 0.5 MG INJ IV (00:48)
[2025-03-02] MEDS: metroNIDAZOLE 500 MG/100 ML PIGGYBACK 100 MG IV ×3 (00:49→17:00)
[2025-03-02 01:00] VITALS: BP 137/90; PULSE 61; RESP 18; TEMP 36.6; O2SAT 100
[2025-03-02 07:12] LABS: Add Manual Diff / Slide Review NO; Basophils Absolute Auto 0 /uL (0-100); Basophils Percent Auto 0.5 % (0-2); Eosinophils Absolute Auto 200 /uL (0-450); Eosinophils Percent Auto 2.8 % (2-4); Hematocrit 29.9 % (36-46); Lymphocytes Absolute Auto 2700 /uL (1100-4500); Lymphocytes Percent Auto 41.8 % (25-40); Mean Corpuscular HGB Conc 33.3 % (30-36); Mean Corpuscular Hemoglobin 25.9 PG (26-34); Mean Corpuscular Volume 77.7 fL (80-100); Monocytes Absolute Auto 700 /uL (0-900); Monocytes Percent Auto 11.2 % (3-14); Neutrophils Absolute Auto 2800 /uL (1500-7000); Neutrophils Percent Auto 43.7 % (50-75); Platelet Count 281 X10^3/uL (150-400); Red Blood Cell Count 3.85 X10^6/uL (4.0-5.2); White Blood Cell Count 6.5 X10^3/uL (4.5-11.0)
[2025-03-02 07:20] LABS: BUN Creatinine Ratio 12.5 (6-22); Blood Urea Nitrogen 6 mg/dL (7-17); Calcium 8.7 mg/dL (8.4-10.2); Carbon Dioxide 26 mmol/L (22-32); Chloride 105 mmol/L (98-107); Estimated Glomerular Filt Rate > 60 mL/min (>60); Glucose 85 mg/dL (70-99); HEMOLYSIS < 15 (0-50); Potassium 3.8 mmol/L (3.4-5.1); Sodium 138 mmol/L (137-145)
[2025-03-02 07:21] LABS: Magnesium 1.9 mg/dL (1.6-2.3)
[2025-03-02] MEDS: METOCLOPRAMIDE HCL 5 MG TABLET PO ×3 (07:57→17:00)
[2025-03-02] MEDS: HYDROMORPHONE 2 MG TABLET 4 MG PO ×4 (07:57→21:26)
[2025-03-02 07:59] LABS: Lipase 45 U/L (23-300)
[2025-03-02 08:00] VITALS: BP 130/77; PULSE 51; RESP 16; TEMP 36.5; O2SAT 99
[2025-03-02] MEDS: clonazePAM 0.5 MG TABLET PO ×2 (08:00→21:26)
[2025-03-02] MEDS: lamoTRIgine 100 MG TABLET PO (08:00)
[2025-03-02] MEDS: estradioL 1 MG TABLET 0.5 MG PO (08:00)
[2025-03-02] MEDS: lisinopriL 5 MG TABLET PO (08:00)
[2025-03-02] MEDS: PANTOPRAZOLE 40 MG VIAL IV ×2 (08:01→21:25)
[2025-03-02 09:23] LABS: Lipase 55 U/L (23-300)
--- NOTE | 2025-03-02 10:32 | P.PN_ITS ---
Subjective Subjective Interval history: 44-year-old female previously admitted February 16 through February 18 with acute on chronic proximal sigmoid diverticulitis who was readmitted 02/25/2025 with recurrent left lower quadrant pain, nausea and vomiting, black tarry stool and ?coffee-ground? stool. Repeat CT yesterday showed improving LLQ inflammation, Lipase negative this AM. She is tolerating a bit more food this AM and less pain. Exam Vital Signs (past 8 hours): Oxygen Delivery Method Room Air Oxygen Flow Rate 0 Narrative Exam Narrative: GEN: Very pleasant adult female, Alert and oriented x 3, NAD EXTR: warm, well perfused, no C/C/E SKIN: warm and dry, no rash NEURO: Alert and oriented x 3, nonfocal Objective Labs 03/02/25 06:00 03/02/25 06:00 Labs: Laboratory Results - last 24 hr 03/02/25 03/02/25 06:00 08:27 WBC 6.5 RBC 3.85 L Hgb 10.0 L Hct 29.9 L MCV 77.7 L MCH 25.9 L MCHC 33.3 RDW 17.0 H Plt Count 281 Neut % (Auto) 43.7 L Lymph % (Auto) 41.8 H [place] % (Auto) 11.2 Eos % (Auto) 2.8 Baso % (Auto) 0.5 Neut # (Auto) 2800 Lymph # (Auto) 2700 [place] # (Auto) 700 Eos # (Auto) 200 Baso # (Auto) 0 Sodium 138 Potassium 3.8 Chloride 105 Carbon Dioxide 26 BUN 6 L Creatinine 0.48 L Estimated GFR > 60 BUN/Creatinine Ratio 12.5 Glucose 85 Calcium 8.7 Magnesium 1.9 Lipase 45 D 55 PFSH Medical History Bipolar disorder Celiac disease GERD with apnea Headache Hypertension Left corneal abrasion Polycystic ovary disease Surgical History H/O abdominoplasty H/O gastric sleeve H/O oophorectomy H/O: hysterectomy History of appendectomy History of section History of cholecystectomy Status post tubal ligation Social History marital status: household members: significant other and children lives independently: Yes occupational status: employed Smoking Status: Never smoker alcohol intake: never substance use type: marijuana Assessment & Plan Assessment & Plan narrative: 1. Acute versus acute on chronic sigmoid diverticulitis Patient is admitted with either her 3rd episode of diverticulitis or now chronic sigmoid diverticulitis. She was initially placed on IV Cipro and Flagyl. She was changed to IV ceftriaxone and Flagyl after a couple of days. Pain is improved with combination of oral oxycodone and increase in Dilaudid from 0.5-1 mg q.2h as needed. She is following up with her photographic equipment assembler in early March. Plan will be a colonoscopy for further evaluation of her microcytic anemia. - given continued pain ordered repeat CT 03/01 which showed improving inflammation. Continue current medical management. 2. Anemia of chronic blood loss She has had a prior hysterectomy. Her MCV is below 80 and her hemoglobin is in the 10 range. I have recommended she have a colonoscopy. She notes she had an EGD 7 or so months ago. Continue PPI for now. H/h is stable around 10 for several days now. 3. Hypertension Blood pressures remain mostly normotensive. Have resumed home lisinopril. 4. Previous gastric sleeve for obesity Continue PPI. Currently stable. 5. Nausea and vomiting Continue Reglan and Zofran as needed. Code status Full Prophylaxis Deferring chemical prophylaxis given her report of black tarry stools and microcytic anemia. She did have 1 dark stool yesterday morning which was guaiac negative. Disposition Discharge home when abdominal pain improved, hopefully 1-2 more days. Time-Based Coding :: [TOTAL MINUTES] spent with patient and on the chart (including review of chart, obtaining history, exam, reviewing outside data, placing orders, documenting exam and treatment plan, and counseling patient) on [DATE]. Quality VTE Deep Vein Thrombosis/Pulmonary Embolism Present on Admission: No
[2025-03-02] MEDS: HYDROMORPHONE 1 MG INJ IV ×4 (10:33→23:37)
[2025-03-02 13:00] VITALS: BP 92/57; PULSE 97; RESP 16; TEMP 36.7; O2SAT 97
[2025-03-02] MEDS: cefTRIAXone 2,000 MG in SODIUM CHLORIDE 0.9% 100 ML 200 MG IV (13:11)
[2025-03-02 16:12] VITALS: BP 98/66; PULSE 53; RESP 14; TEMP 36.5; O2SAT 100
[2025-03-02] MEDS: HYDROMORPHONE 2 MG TABLET PO (19:52)
[2025-03-02 20:00] VITALS: BP 115/79; PULSE 67; RESP 18; TEMP 37; O2SAT 99
[2025-03-02] MEDS: LORazepam 1 MG TABLET PO (21:26)
[2025-03-03] MEDS: metroNIDAZOLE 500 MG/100 ML PIGGYBACK 100 MG IV ×3 (01:34→16:32)
[2025-03-03] MEDS: HYDROMORPHONE 2 MG TABLET 4 MG PO ×2 (01:42→10:11)
[2025-03-03 04:00] VITALS: BP 115/71; BP 92/48; PULSE 48; PULSE 57; RESP 15; TEMP 36.5; TEMP 36.6; O2SAT 97
[2025-03-03 05:44] LABS: Add Manual Diff / Slide Review NO; Basophils Absolute Auto 0 /uL (0-100); Basophils Percent Auto 0.6 % (0-2); Eosinophils Absolute Auto 200 /uL (0-450); Eosinophils Percent Auto 2.9 % (2-4); Hematocrit 29.1 % (36-46); Hemoglobin 9.7 g/dL (12.0-16.0); Lymphocytes Absolute Auto 2500 /uL (1100-4500); Lymphocytes Percent Auto 40.1 % (25-40); Mean Corpuscular HGB Conc 33.3 % (30-36); Mean Corpuscular Hemoglobin 26.1 PG (26-34); Mean Corpuscular Volume 78.2 fL (80-100); Monocytes Absolute Auto 700 /uL (0-900); Neutrophils Absolute Auto 2800 /uL (1500-7000); Neutrophils Percent Auto 45.4 % (50-75); Platelet Count 279 X10^3/uL (150-400); Red Blood Cell Count 3.73 X10^6/uL (4.0-5.2); Red Cell Distribution Width 17.1 % (11.6-14.8); White Blood Cell Count 6.1 X10^3/uL (4.5-11.0)
[2025-03-03 05:53] LABS: BUN Creatinine Ratio 22.4 (6-22); Blood Urea Nitrogen 11 mg/dL (7-17); Calcium 8.6 mg/dL (8.4-10.2); Carbon Dioxide 26 mmol/L (22-32); Chloride 105 mmol/L (98-107); Estimated Glomerular Filt Rate > 60 mL/min (>60); Glucose 82 mg/dL (70-99); HEMOLYSIS < 15 (0-50); Magnesium 1.8 mg/dL (1.6-2.3); Potassium 3.9 mmol/L (3.4-5.1); Sodium 136 mmol/L (137-145)
[2025-03-03 08:00] VITALS: BP 107/75; PULSE 78; RESP 16; TEMP 36.8; O2SAT 99
[2025-03-03 08:19] VITALS: BP 107/75; PULSE 63
[2025-03-03] MEDS: lisinopriL 5 MG TABLET PO (08:19)
[2025-03-03] MEDS: lamoTRIgine 100 MG TABLET PO (08:19)
[2025-03-03] MEDS: clonazePAM 0.5 MG TABLET PO ×2 (08:19→20:52)
[2025-03-03] MEDS: HYDROMORPHONE 1 MG INJ IV ×2 (08:20→12:57)
[2025-03-03] MEDS: PANTOPRAZOLE 40 MG VIAL IV ×2 (08:20→20:51)
[2025-03-03] MEDS: estradioL 0.5 MG TABLET PO (08:20)
[2025-03-03] MEDS: METOCLOPRAMIDE HCL 5 MG TABLET PO ×3 (08:20→16:32)
--- NOTE | 2025-03-03 10:23 | P.PN_ITS ---
Subjective Subjective Interval history: Summary: Pleasant 44-year-old female readmitted with recurrent diverticulitis and 1 episode of melena. She was no history of ulcer. She was had at least 3 recent admissions for recurrent diverticulitis. Subjective: She feels better today, but did require 2 doses of IV pain medication overnight. No further melena. She was never been seen by surgery to discuss the possibility of surgical intervention. Exam Vital Signs (past 8 hours): - 03/03/25 04:00 03/03/25 08:00 03/03/25 08:19 Temperature 97.7 F 98.3 F Pulse Rate 48 L 78 63 Respiratory Rate 15 16 Blood Pressure 92/48 L 107/75 107/75 Pulse Oximetry 97 99 Oxygen Flow Rate 0 0 Oxygen Delivery Method Room Air Oxygen Flow Rate 0 Narrative Exam Narrative: NAD, alert and oriented. Fluent speech. Lungs are clear, normal rate and effort. Heart is regular, no murmur gallop or rub. Abdomen is soft, non distended. She has suprapubic and left lower quadrant tenderness without guarding or rebound. Extremities are free of edema. Objective Labs 03/03/25 05:00 03/03/25 05:00 Labs: Laboratory Results - last 24 hr 03/03/25 05:00 WBC 6.1 RBC 3.73 L Hgb 9.7 L Hct 29.1 L MCV 78.2 L MCH 26.1 MCHC 33.3 RDW 17.1 H Plt Count 279 Neut % (Auto) 45.4 L Lymph % (Auto) 40.1 H [place] % (Auto) 11.0 Eos % (Auto) 2.9 Baso % (Auto) 0.6 Neut # (Auto) 2800 Lymph # (Auto) 2500 [place] # (Auto) 700 Eos # (Auto) 200 Baso # (Auto) 0 Sodium 136 L Potassium 3.9 Chloride 105 Carbon Dioxide 26 BUN 11 Creatinine 0.49 L Estimated GFR > 60 BUN/Creatinine Ratio 22.4 H Glucose 82 Calcium 8.6 Magnesium 1.8 PFSH Medical History Left corneal abrasion Headache Polycystic ovary disease Celiac disease GERD with apnea Hypertension Bipolar disorder Surgical History H/O: hysterectomy Status post tubal ligation History of section H/O abdominoplasty H/O oophorectomy H/O gastric sleeve History of cholecystectomy History of appendectomy Social History marital status: household members: significant other and children lives independently: Yes occupational status: employed Smoking Status: Never smoker alcohol intake: never substance use type: marijuana Assessment & Plan Assessment & Plan narrative: 1. Acute versus acute on chronic sigmoid diverticulitis, improving. Patient was admitted with either her 3rd episode of diverticulitis or now chronic sigmoid diverticulitis. She is following up with her manager office services in early May (earliest opening). 2. Anemia of chronic blood loss, stable. She has had a prior hysterectomy. Her MCV is below 80 and her hemoglobin is in the 10 range. I have recommended she have a colonoscopy. She notes she had an EGD 7 or so months ago. Continue PPI for now. H/h is stable around 10 for several days now. 3. Hypertension, stable. Blood pressures remain mostly normotensive. Have resumed home lisinopril. 4. Previous gastric sleeve for obesity, stable. Continue PPI. Currently stable. 5. Nausea and vomiting, improved. Continue Reglan and Zofran as needed. PLAN: -continue IV antibiotics and attempt to minimize IV pain medications and use oral pain medications. -we will request imaging review and recommendations from surgery. The questions include the possibility of consideration of surgical intervention for recurrent or persistent diverticulitis as well as the need for endoscopy given her transent melena. Code status Full Prophylaxis Deferring chemical prophylaxis given her report of black tarry stools and microcytic anemia. She did have 1 dark stool yesterday morning which was guaiac negative. Time-Based Coding :: [TOTAL MINUTES] spent with patient and on the chart (including review of chart, obtaining history, exam, reviewing outside data, placing orders, documenting exam and treatment plan, and counseling patient) on [DATE]. Quality VTE Deep Vein Thrombosis/Pulmonary Embolism Present on Admission: No
[2025-03-03 11:56] VITALS: BP 102/70; PULSE 57; RESP 20; TEMP 36.9; O2SAT 99
[2025-03-03] MEDS: cefTRIAXone 2,000 MG in SODIUM CHLORIDE 0.9% 100 ML 200 MG IV (12:56)
[2025-03-03] MEDS: OXYCODONE IR 10 MG TABLET PO (14:53)
[2025-03-03] MEDS: ACETAMINOPHEN 325 MG TABLET 650 MG PO (14:53)
--- NOTE | 2025-03-03 15:55 | PM.CN.IH.1 ---
History of Present Illness Consult details Date Patient Seen: 03/03/25 Time Patient Seen: 15:55 Chief complaint: abdominal pain, bloody stool Narrative: Sandra is a 44-year-old woman who has presented to the hospital multiple times since November of this year for left-sided abdominal pain. She has had [address] scans since November. Her CT scan on January 17 reported ?left descending colitis secondary diverticulitis?. She never had any signs of perforation or abscess on any of her subsequent CT scans. Her most recent CT scan was performed two days ago and reported ?minimal focal inflammatory changes of the proximal sigmoid colon without adjacent fascial thickening. Degree of inflammation has decreased since 02/15/25. No residual drainable fluid collection or perforation. She reports that she has been on antibiotics almost continuously for the past several months without improvement in her level of abdominal pain. She did have an episode of melena that she described as coffee-ground appearance. She has been evaluated by Gastroenterology from [facility] and had an EGD and colonoscopy within the past year. She was scheduled to see them for another colonoscopy but it was pushed back to May due to scheduling conflicts. She has had a regular diet today including rash potatoes. Meds Home Medications and Allergies Home Medications ?Medication ?Instructions ?Recorded ?Confirmed ?Type metoclopramide HCl 5 mg tablet 5 mg PO QAC 07/24/24 02/25/25 History (Reglan) clonazepam 0.5 mg tablet 0.5 mg PO BID 08/24/24 02/25/25 History estradiol 0.5 mg tablet 0.5 mg PO DAILY #30 tabs 11/12/24 02/25/25 Rx ondansetron 4 mg disintegrating 4 mg sublingual Q4HR PRN Nausea 30 01/27/25 02/25/25 Rx tablet days #30 tabs lisinopril 5 mg tablet 5 mg PO DAILY #30 tabs 02/07/25 02/25/25 Rx amoxicillin 875 mg-potassium 1 tab PO Q12H #20 tabs 02/21/25 02/25/25 Rx clavulanate 125 mg tablet lamotrigine 100 mg tablet 100 mg PO DAILY 02/21/25 02/25/25 History oxycodone 5 mg tablet 5 - 10 mg (1 - 2 x 5 mg) PO Q6H 02/21/25 02/25/25 Rx PRN pain #30 tabs Allergies Allergy/AdvReac Type Severity Reaction Status Date / Time vancomycin Allergy Intermediate ITCHING Verified 02/25/25 16:03 gluten Allergy Celiac Verified 02/25/25 16:03 NSAIDS (Non-Steroidal AdvReac Mild Gastrointestinal Verified 02/25/25 16:03 Anti-Inflamma Upset benzonatate (From Tessalon AdvReac Unknown Hives Verified 02/21/25 15:19 Per[place]) escitalopram (From Lexapro) AdvReac Unknown Hallucinati Verified 02/21/25 15:19 ng Exam Vital Signs (past 8 hours): - 03/03/25 08:00 03/03/25 08:19 03/03/25 11:56 Temperature 98.3 F 98.4 F Pulse Rate 78 63 57 L Respiratory Rate 16 20 Blood Pressure 107/75 107/75 102/70 Pulse Oximetry 99 99 Oxygen Flow Rate 0 0 Oxygen Delivery Method Room Air Oxygen Flow Rate 0 Narrative Exam Narrative: Abdomen is soft, tender to palpation in the left lower quadrant without peritonitis Objective Labs 03/03/25 05:00 03/03/25 05:00 Labs: Laboratory Results - last 24 hr 03/03/25 05:00 WBC 6.1 RBC 3.73 L Hgb 9.7 L Hct 29.1 L MCV 78.2 L MCH 26.1 MCHC 33.3 RDW 17.1 H Plt Count 279 Neut % (Auto) 45.4 L Lymph % (Auto) 40.1 H [place] % (Auto) 11.0 Eos % (Auto) 2.9 Baso % (Auto) 0.6 Neut # (Auto) 2800 Lymph # (Auto) 2500 [place] # (Auto) 700 Eos # (Auto) 200 Baso # (Auto) 0 Sodium 136 L Potassium 3.9 Chloride 105 Carbon Dioxide 26 BUN 11 Creatinine 0.49 L Estimated GFR > 60 BUN/Creatinine Ratio 22.4 H Glucose 82 Calcium 8.6 Magnesium 1.8 PFSH Medical History Left corneal abrasion Headache Polycystic ovary disease Celiac disease GERD with apnea Hypertension Bipolar disorder Surgical History H/O: hysterectomy Status post tubal ligation History of section H/O abdominoplasty H/O oophorectomy H/O gastric sleeve History of cholecystectomy History of appendectomy Social History marital status: household members: significant other and children lives independently: Yes occupational status: employed Tobacco & Substance Use Smoking Status: Never smoker alcohol intake: never substance use type: marijuana Assessment & Plan Assessment and plan (1) Melena: Status: Acute Plan I recommended we proceed with an EGD and colonoscopy due to melena. I did discuss with her the increase in risk of performing your colonoscopy in the setting of acute diverticulitis however given the appearance of her last 2 CT scans I think the degree of inflammation of her left colon is quite minimal at this time and it would be safe to proceed. I will have her transition to clear liquid diet now, start the prep tomorrow and we will plan for the procedure to take place on Friday. Time-Based Coding :: [TOTAL MINUTES] spent with patient and on the chart (including review of chart, obtaining history, exam, reviewing outside data, placing orders, documenting exam and treatment plan, and counseling patient) on [DATE]. PROFEE Charge Codes Inpatient or Observation consultation: [id number]
[2025-03-03 16:33] VITALS: BP 115/71; PULSE 57; RESP 15; TEMP 36.5; O2SAT 97
[2025-03-03] MEDS: HYDROMORPHONE 0.5 MG INJ IV ×3 (17:23→23:18)
[2025-03-03 18:01] LABS: Appearance Urine UA CLEAR; Bilirubin Urine UA NEGATIVE (NEGATIVE); Color Urine UA YELLOW; Glucose Urine UA NEGATIVE (Negative); Ketones Urine UA NEGATIVE (NEGATIVE); Leukocyte Esterase Urine UA NEGATIVE (NEGATIVE); Nitrite Urine UA NEGATIVE (Negative); Occult Blood Urine UA NEGATIVE (Negative); Protein Urine UA NEGATIVE (Negative); Urobilinogen Urine UA 0.2 E.U./dL (0.2)
[2025-03-03 18:03] LABS: Urine Volume 10mL (spun); pH Urine UA 6.5 (4.5-8.0)
[2025-03-03 18:08] LABS: Bacteria Urine Occasional (0-1); Culture Indicated Urine Cult Not Indicated; RBC Urine None Seen (0-5/HPF); Squamous Epithelial Cell Urine 1-5 /HPF (0-5/HPF); WBC Urine None Seen (0-5/HPF)
[2025-03-03 20:00] VITALS: BP 109/82; PULSE 62; RESP 18; TEMP 37.2; O2SAT 99
[2025-03-03] MEDS: LORazepam 1 MG TABLET PO (23:19)
[2025-03-03] MEDS: ONDANSETRON 4 MG/2 ML INJ IV (23:26)
[2025-03-04 01:00] VITALS: BP 114/75; PULSE 55; RESP 18; TEMP 36.4; O2SAT 99
[2025-03-04] MEDS: metroNIDAZOLE 500 MG/100 ML PIGGYBACK 100 MG IV ×3 (01:03→17:04)
[2025-03-04] MEDS: OXYCODONE IR 10 MG TABLET PO ×5 (01:03→21:59)
[2025-03-04] MEDS: HYDROMORPHONE 0.5 MG INJ IV ×5 (03:22→22:31)
--- NOTE | 2025-03-04 07:20 | P.PN_ITS ---
Subjective Subjective Interval history: Summary: She was admitted for diverticulitis, presumed recurrent. She was had slow progress with IV antibiotics. She was seen by surgery yesterday, with concern for lack of imaging evidence of diverticulitis. She also had transient melena and hematemesis. Plan is for colonoscopy and EGD on March 05. S: She was doing fairly well. She was still has left lower quadrant pain. She was taking her prep for colonoscopy. Exam Vital Signs (past 8 hours): - 03/04/25 01:00 Temperature 97.6 F Pulse Rate 55 L Respiratory Rate 18 Blood Pressure 114/75 Pulse Oximetry 99 Oxygen Flow Rate 0 Oxygen Delivery Method Room Air Oxygen Flow Rate 0 Narrative Exam Narrative: NAD, alert and oriented. Fluent speech. Lungs are clear, normal rate and effort. Heart is regular, no murmur gallop or rub. Abdomen is soft, non distended. She was pain with palpation in the suprapubic and left lower quadrant without rebound. Extremities are free of edema. Objective Labs 03/03/25 05:00 03/03/25 05:00 Labs: Laboratory Results - last 24 hr 03/02/25 17:55 Urine Color Yellow Urine Appearance Clear Urine pH 6.5 Ur Specific [place] 1.010 Urine Protein Negative Urine Glucose (UA) Negative Urine Ketones Negative Urine Occult Blood Negative Urine Nitrate Negative Urine Bilirubin Negative Urine Urobilinogen 0.2 Ur Leukocyte Esterase Negative Urine RBC None seen Urine WBC None seen Ur Squamous Epith Cells 1-5 /hpf Urine Bacteria Occasional (0-1) Urine Yeast 1-5/hpf H Ur Culture Indicated? Cult not indicated Vol Urine Centrifuged 10ml (spun) [facility] Medical History Left corneal abrasion Headache Polycystic ovary disease Celiac disease GERD with apnea Hypertension Bipolar disorder Surgical History H/O: hysterectomy Status post tubal ligation History of section H/O abdominoplasty H/O oophorectomy H/O gastric sleeve History of cholecystectomy History of appendectomy Social History marital status: household members: significant other and children lives independently: Yes occupational status: employed Smoking Status: Never smoker alcohol intake: never substance use type: marijuana Assessment & Plan Assessment & Plan narrative: 1. Acute versus acute on chronic sigmoid diverticulitis, improving. 2. Anemia of chronic blood loss, stable. 3. Hypertension, stable. 4. Previous gastric sleeve for obesity, stable. 5. Nausea and vomiting, improved. PLAN: -continue IV antibiotics -EGD and colonoscopy tomorrow. We will add PPI b.i.d.. ELIZABETH: 03/05. 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 Quality VTE Deep Vein Thrombosis/Pulmonary Embolism Present on Admission: No
[2025-03-04 08:00] VITALS: BP 98/64; PULSE 64; RESP 12; TEMP 36.6; O2SAT 100
[2025-03-04] MEDS: lamoTRIgine 100 MG TABLET PO (08:12)
[2025-03-04] MEDS: estradioL 0.5 MG TABLET PO (08:16)
[2025-03-04] MEDS: METOCLOPRAMIDE HCL 5 MG TABLET PO ×3 (08:16→16:41)
[2025-03-04] MEDS: clonazePAM 0.5 MG TABLET PO ×2 (08:16→20:07)
[2025-03-04] MEDS: PANTOPRAZOLE 40 MG VIAL IV ×2 (08:17→20:06)
--- NOTE | 2025-03-04 10:03 | DIET.PN1 ---
Dietary Progress Note Assessment: RD f/u Pt on clears for EGD and colonoscopy tomorrow. Ht: 167.64 cm Wt: 90 kg BMI: 32.3 Last BM: 03/03/25 (03/04/25 00:00) MNA: 9 Maxwell Score: 22 Diet: 03/03/25 Dinner Clear Liquid Diet Diet Modifications: Nutrition Percent Meal Consumed 100% 03/03/25 09:25 Percent Meal Consumed 100% 03/02/25 18:00 Labs: RBC 3.73 X10^6/uL (4.0-5.2) L 03/03/25 05:00 Hgb 9.7 g/dL (12.0-16.0) L 03/03/25 05:00 Hct 29.1 % (36-46) L 03/03/25 05:00 Creatinine 0.49 mg/dL (0.52-1.04) L 03/03/25 05:00 Nutrition Diagnosis: no further dx Monitoring/Evaluations: PO intakes when diet is advanced Electronically Signed by: Ritika Evans 03/04/25 10:03 Clinical Dietitian [address] [address]
[2025-03-04] MEDS: ACETAMINOPHEN 325 MG TABLET 650 MG PO (10:27)
[2025-03-04] MEDS: PEG3350/SOD SULF,BICARB,CL/KCL 4,000 ML SOLUTION 4000 ML PO (13:10)
[2025-03-04] MEDS: cefTRIAXone 2,000 MG in SODIUM CHLORIDE 0.9% 100 ML 200 MG IV (13:10)
[2025-03-04] MEDS: LORazepam 1 MG TABLET PO ×2 (14:33→21:59)
--- NOTE | 2025-03-04 15:57 | CM.DPNOTE ---
DCP Cont Reviewed chart. Patient discussed in multidisciplinary rounds. Patient has been scheduled for upper/lower scope on Friday. Plan remains discharge home w/family with close outpatient follow up. CM team following closely in case any discharge needs or concerns arise. JW
[2025-03-04 19:28] VITALS: BP 114/76; PULSE 54; RESP 16; TEMP 36.5; O2SAT 100
[2025-03-04] MEDS: SCOPOLAMINE 1 PATCH TOP (20:07)
[2025-03-05] VITALS (9 sets, daily range): BP systolic 105–155; BP diastolic 63–97; PULSE 48–66; RESP 11–21; TEMP 36.3–37; O2SAT 96–100
--- NOTE | 2025-03-05 | PATH_ITS ---
[facility] Accession Number: [id number] No. of containers..06 Tissue . 01 Material submitted: . PART A: duodenum - DUODENUM PART B: stomach - ANTRUM PART C: small bowel - ILEUM, TERMINAL PART D: colon - COLON, RIGHT PART E: colon - COLON, TRANSVERSE PART F: colon - COLON, DESCENDING . 01 Diagnosis: Part A: DUODENUM: Duodenal mucosa with no diagnostic alterations. No active inflammation and no evidence of celiac disease. . Part B: ANTRUM: Gastric mucosa with mild chronic inflammation. No Helicobacter organisms identified. No intestinal metaplasia, dysplasia, or malignancy identified. . Part C: ILEUM, TERMINAL: Ileal mucosa with no diagnostic alterations. No active inflammation, granulomas, or dysplasia identified. . Part D: COLON, RIGHT: Colonic mucosa with no diagnostic alterations. No active inflammation, granulomas, dysplasia, or malignancy identified. No evidence of colitis. . Part E: COLON, TRANSVERSE: Colonic mucosa with no diagnostic alterations. No active inflammation, granulomas, dysplasia, or malignancy identified. No evidence of colitis. . Part F: COLON, DESCENDING: Colonic mucosa with no diagnostic alterations. No active inflammation, granulomas, dysplasia, or malignancy identified. No evidence of colitis. [facility] 03/15/2025 1142 Local . 01 Electronically signed: . Paramjit Whitt MD, Pathologist NPI- [id number] . 01 Gross description: . A. Received in formalin with patient two identifiers and 1. Duodenum biopsy, consists of two vernon tissues averaging 0.1 cm in greatest dimension, which are submitted in toto in cassette A1. . B. Received in formalin with two patient identifiers and 2. Antrum biopsy, consists of three vernon tissues ranging from 0.1 cm up to 0.3 cm in greatest dimension, which are submitted in toto in cassette B1. . C. Received in formalin with two patient identifiers and 3. Terminal ileum biopsy, consists of a single, 0.2 cm in greatest dimension vernon tissue, submitted in toto in cassette C1. . D. Received in formalin with two patient identifiers and 4. Right colon biopsy, consists of two vernon tissues averaging 0.2 cm in greatest dimension, which are submitted in toto in cassette D1. . E. Received in formalin with two patient identifiers and 5. Transverse colon biopsy, consists of a single 0.3 cm in greatest dimension vernon tissue, which are submitted in toto in cassette E1. . F. Received in formalin with two patient identifiers and 6. Descending colon, consists of two vernon, friable soft tissues measuring 0.2 and 0.4 cm in greatest dimension, which are submitted in toto in cassette F1. ([id number]) /MRV 03/15/2025 1142 Local . 01 Microscopic: . Part B: ANTRUM: An immunohistochemical stain was performed to evaluate for Helicobacter organisms and is negative. The control stains appropriately. * This test was developed and the performance characteristics were validated by [employer].. It has not been cleared or approved by the Food and Drug Administration. . 01 Pathologist provided ICD-10: K29.50 . 01 CPT . 358041, 970484, 602958, 005109, 643051, 734248, [id number] Specimen Comment: A courtesy copy of this report has been sent to [phone] Performed at: [address] [address], [place], [place] [id number] MD Paramjit Whitt MD Phone: [phone]
[2025-03-05] MEDS: metroNIDAZOLE 500 MG/100 ML PIGGYBACK 100 MG IV (02:25)
[2025-03-05] MEDS: OXYCODONE IR 10 MG TABLET PO ×2 (02:31→11:56)
[2025-03-05] MEDS: LORazepam 1 MG TABLET PO (05:00)
[2025-03-05] MEDS: HYDROMORPHONE 0.5 MG INJ IV ×2 (05:00→07:56)
[2025-03-05] MEDS: LACTATED RINGERS 1,000 ML 42 ML IV (08:43)
--- NOTE | 2025-03-05 08:58 | PC.NURSE ---
Addendum entered by Jeferson Long R.N. 03/05/25 11:10: Pt returned from EGD/Colonoscopy, A&O tearful, upset that they didn't find anything. Biopsies were taken per report and pt is aware that results may take 7-10 days to come back. attentive at bedside. Dr. Starks is aware of pt's feelings and wanting to go home. Awaiting orders. Original Note: Pt a&o up in room independently. Pain meds per orders. Prepped for EGD and Colonoscopy this morning. Pt now off unit for EGD/ Colonoscopy.
--- NOTE | 2025-03-05 09:06 | PM.PREOP ---
Pre-operative Note COVID-19 COVID-19 status: Not tested Interval Note History & Physical reviewed/Exam performed by Physician: Yes Changes to H&P: No ASA Class (for procedural sedation): II
--- NOTE | 2025-03-05 09:51 | PM.OP.EC ---
Operative Date/Time/Diagnoses Date of procedure: 03/05/25 Time of procedure: 09:51 Pre-op diagnosis: Abdominal pain, colitis Post-op diagnosis: same Procedure & Clinicians Study performed: EGD and colonoscopy Same procedure(s) as scheduled: Yes Surgeon: Wily Quispe Procedure Notes Procedure in detail: Surgeon: Wily Quispe MD Anesthesia: Gregorio Marcos D.O. Procedure in detail: A timeout was performed. A bite blocked was placed and monitors were attached to the patient. The patient was positioned in the left lateral decubitus position. Sedation was administered. Once the patient was sedated the endoscope was inserted through the bite block and passed through the esophagus and stomach and into the duodenum. No gross abnormalities were seen. Biopsies were taken of the duodenal mucosa with cold forceps. We then withdrew the scope into the stomach. No gross abnormalities were seen. The old staple line from the sleeve gastrectomy was barely visible. Biopsies were taken of the antrum with cold forceps. The endoscope was retroflexed and no obvious hiatal hernia was seen. The endoscope was straightned and withdrawn into the esophagus. No abnormalities were found within the esophagus. EGD findings: Grossly normal EGD Next we repositioned the patient for a colonoscopy. A digital rectal exam was performed and was normal. The colonoscope was inserted and advanced to the cecum. The appendiceal orifice was identified and photographed. The terminal ileum was intubated. No obvious abnormalities were noted. Random biopsies were taken with cold forceps. The scope was slowly withdrawn over greater than 6 minutes. No obvious abnormalities were noted other than left colon diverticulosis. Random biopsies were taken from the right colon, descending colon and sigmoid colon. The scope was retroflexed in the rectum and no abnormalities were seen. Colonoscopy findings: Grossly normal terminal ileum and colon other than left colon diverticulosis Total procedural EBL: 5 mL Scope withdrawal time: 16 minutes Sedation minutes: 33 minutes Post-procedure Disposition: PACU
--- NOTE | 2025-03-05 11:10 | CM.DPNOTE ---
DCP note PARTS REPRESENTATIVE reviewed EMR per provider in morning rounds, EGD today at 0900. may dc home after vs tomorrow. Plan remains discharge home w/family with close outpatient follow up. CM team following closely in case any discharge needs or concerns arise. GIO Mercer
--- NOTE | 2025-03-05 11:43 | PM.DS.1 ---
History of Present Illness History of Present Illness Chief complaint: abdominal pain, bloody stool Narrative: From H&P: 44-year-old woman recently hospitalized for acute diverticulitis, discharged on February 18, with history of hysterectomy, appendectomy, cholecystectomy, gastric sleeve presented with coffee-grounds emesis today with worsening of abdominal pain and melenic stools. She had originally been on ciprofloxacin and metronidazole switch to Augmentin for diverticulitis. She denies aspirin or NSAIDs noting she can not take those due to her prior gastric surgery. No fevers, chills, chest pain, shortness for breath, or change in chronic back pain complaint. Discharge Providers Provider Date of admission: 02/25/25 17:17 Discharge Date: 03/05/25 Primary care physician: Sarah Dunbar MD Consults: Surgery, Dr. Quispe. Discharge provider: Chris Starks MD Summary Hospital Course Discharge Diagnosis: 1. Acute on chronic abdomen pain, active. . 2. Anemia of chronic blood loss, stable. 3. Hypertension, stable. 4. Previous gastric sleeve for obesity, stable. 5. Nausea and vomiting, improved. Hospital Course: She was admitted for suspected recurrent diverticulitis. She was treated with IV antibiotics, IV fluids, and pain medications as well as bowel rest. This was her 3rd episode of similar episodes. Ultimately surgery was consulted and reviewed her CT scan and felt that it was not clear that she was having diverticulitis on imaging. She was prepped for endoscopy. She also did report 1 day history of melena. She underwent endoscopy with both EGD and colonoscopy on March 04 with unremarkable studies in both cases. She would diverticulosis but no evidence of diverticulitis. Recommendations were for outpatient follow up with her GI doctor at [facility] and stopping her antibiotics. The patient was upset, tearful that the cause of her acute on chronic abdominal pain was unclear. Imaging revealed an other causes of abdominal pain. We did have a long discussion regarding the importance of discussing alternative therapies for her possibly chronic abdominal pain such as Lyrica, Neurontin, or Cymbalta with her primary care doctor. In addition other modalities may be tried as well. I did answer many questions of the patient and her had an ultimately she will be discharged in good condition with a small supply of pain medication. Status at Discharge Cognitive/behavioral status at discharge: oriented Functional status at discharge: independent ambulation Overall status at discharge: patient is back to baseline Time Spent with Patient Time spent: Greater than 30 minutes Exam Vital Signs (past 8 hours): - 03/05/25 05:02 03/05/25 08:00 03/05/25 08:40 Temperature 98.1 F 97.8 F 98.6 F Pulse Rate 63 52 L 65 Respiratory Rate 17 16 16 Blood Pressure 105/70 155/77 H 131/97 H Pulse Oximetry 99 100 98 Oxygen Delivery Method Room Air Oxygen Flow Rate 0 0 03/05/25 08:55 03/05/25 09:53 03/05/25 09:58 Temperature 97.3 F L Pulse Rate 52 L 52 L 48 L Respiratory Rate 11 L 11 L 11 L Blood Pressure 108/72 112/66 110/69 Pulse Oximetry 100 100 100 Oxygen Delivery Method Room Air Room Air Room Air Oxygen Flow Rate 03/05/25 10:03 03/05/25 10:08 Temperature Pulse Rate 66 57 L Respiratory Rate 21 11 L Blood Pressure 114/63 115/85 Pulse Oximetry 98 100 Oxygen Delivery Method Room Air Room Air Oxygen Flow Rate Oxygen Delivery Method Room Air Oxygen Flow Rate 0 Narrative Exam Narrative: She was seen in the day of discharge, she was tearful. Her lungs were clear. Heart was regular. She does have tenderness in left lower quadrant. Objective Imaging Multiple studies:: Radiologist's impression: CT abdomen and pelvis: Minimal focal inflammatory changes in the proximal sigmoid colon with adjacent fascial thickening. Degree of inflammation has decreased since 02/15/25. No residual drainable fluid collection or perforation. CT angiogram of the abdomen and pelvis: 1. No findings to suggest active GI hemorrhage. 2. Circumferential wall thickening and pericolonic fat stranding within the superior sigmoid colon. Scattered diverticula are noted in this region. Differential considerations include acute diverticulitis and acute colitis. No perforation. No pneumatosis. Labs 03/03/25 05:00 03/03/25 05:00 [facility] Medical History Left corneal abrasion Headache Polycystic ovary disease Celiac disease GERD with apnea Hypertension Bipolar disorder Surgical History H/O: hysterectomy Status post tubal ligation History of section H/O abdominoplasty H/O oophorectomy H/O gastric sleeve History of cholecystectomy History of appendectomy Social History marital status: household members: significant other and children lives independently: Yes occupational status: employed Smoking Status: Never smoker alcohol intake: never substance use type: marijuana Discharge Assessment & Plan Assessment and Plan Assessment: 1. Acute on chronic left lower quadrant abdominal pain with negative colonoscopy. Plan of Treatment: Discharge with a small supply pain medication and request to see your primary care within the next week to further discuss treatment strategies for her ongoing abdominal pain without a clear treatable cause. She also has follow up with her GI doctor at [facility], scheduled for May. Discharge Plan Discharge Plan Patient Disposition: Home Provider Discharge Comment: Please see you regular doctor as soon as possible to discuss next steps. Discharge orders & Medications Prescriptions: New oxycodone 10 mg Tablet 10 mg PO Q4-8H PRN (Reason: Pain, Severe (7-10)) Qty: 15 0RF Continued lisinopril 5 mg tablet 5 mg PO DAILY Qty: 30 3RF clonazepam 0.5 mg tablet 0.5 mg PO BID lamotrigine 100 mg tablet 100 mg PO DAILY oxycodone 5 mg tablet 5 - 10 mg PO Q6H PRN (Reason: pain) Qty: 30 0RF estradiol 0.5 mg tablet 0.5 mg PO DAILY Qty: 30 3RF metoclopramide HCl [Reglan] 5 mg Tablet 5 mg PO QAC Rx Instructions: administer 30 minutes before meals ondansetron 4 mg Tablet,Disintegrating 4 mg sublingual Q4HR PRN (Reason: Nausea) 30 Days Qty: 30 0RF Discontinued amoxicillin-pot clavulanate 875-125 mg tablet 1 tab PO Q12H Qty: 20 0RF Follow up/Referrals: Sarah Dunbar MD [Primary Care Provider, Family Practice] Diet/Activity/Treatments Diet: Regular Visit Report/Discharge Packet Instructions: DI for Acute Abdominal Pain Discharge Data Primary Care Provider: Sarah Dunbar Quality VTE Deep Vein Thrombosis/Pulmonary Embolism Present on Admission: No
== END 2025-03-05 12:00 | disposition home or self-care (01) | DRG 392 ==
LOC: ED 16:30 → AC 17:17
PROVIDERS: Family Medicine; Internal Medicine; Surgery; Admitting Provider Internal Medicine; Emergency Provider Family Medicine; PCP Student in an Organized Health Care Education/Training Program; Referring Provider Family Medicine; Visit Provider Internal Medicine
PROC: 0DJ08ZZ Inspection of Upper Intestinal Tract, Via Natural or Artificial Opening Endoscopic (ICD-10-PCS; principal; 2025-03-05 09:00)
PROC: 0DJD8ZZ Inspection of Lower Intestinal Tract, Via Natural or Artificial Opening Endoscopic (ICD-10-PCS; CPT 45378; 2025-03-05 09:00)
DX: R10.32 Left lower quadrant pain (principal); K92.1 Melena; K92.0 Hematemesis; F31.9 Bipolar disorder, unspecified; I10 Essential (primary) hypertension; D50.0 Iron deficiency anemia secondary to blood loss (chronic); Z90.3 Acquired absence of stomach [part of]; Z90.49 Acquired absence of other specified parts of digestive tract
CPT/HCPCS: 36415; 74174; 74177; 80048; 80053; 81001; 83690; 83735; 85025; 85610; 85730; 86850; 86900; 86901; 96361; 96365; 96375; 96376; 99284; J0696; J0744; J1171; J2250; J2405; J2470; J2704; J2765; Q9967

== ENCOUNTER 2025-03-19 09:16 | Observation (INO) | payer OTHER, SELFPAY ==
[2025-02-25 18:20] VITALS: BMI 32.3
[2025-03-19] VITALS (27 sets, daily range): BP systolic 130–199; BP diastolic 68–104; PULSE 54–94; RESP 15–36; TEMP 36.9–37.6; O2SAT 91–100; BMI 32.4
--- NOTE | 2025-03-19 09:44 | DI.CT.S_ITS ---
PROCEDURE: CT ABDOMEN PELVIS W CON INDICATIONS: pain TECHNIQUE: After the administration of intravenous contrast, axial sections acquired from the lung bases to the pubic symphysis. Coronal and sagittal reformats were performed. For radiation dose reduction, the following was used: automated exposure control, adjustment of mA and/or kV according to patient size. COMPARISON: [facility], CT, CT ABDOMEN PELVIS W CON, 03/01/2025, 10:14. FINDINGS: Image quality: Diagnostic. Lower Chest: No significant findings. ABDOMEN: Liver: No solid mass. Focal fat infiltration near the falciform ligament. Gallbladder: Absent. Biliary ducts: No biliary dilation. Pancreas: No ductal dilation. Spleen: Size is within normal limits. Cyst with rim calcification measuring 4.7 cm. Adrenal Glands: No adrenal nodules. Kidneys and Ureters: No hydronephrosis. No solid mass. No complex renal cystic lesion which requires follow up. Stomach and Bowel: Normal colonic caliber, without significant wall thickening. Diverticulosis. The previously seen inflammatory change about the sigmoid colon is essentially resolved. Post appendectomy. No small bowel obstruction. Gastric sleeve. Peritoneum: No abnormal intraperitoneal fluid. No free air. Ventral Wall: Rectus diastasis. Abdominal Nodes: No retroperitoneal or mesenteric adenopathy by size criteria. Vessels: Aorta and inferior vena cava are normal in size. PELVIS: Pelvic Organs: Uterus is absent. Bladder: No bladder wall thickening, accounting for underdistention. No stone. Pelvic Nodes: No enlarged lymph nodes. Miscellaneous: No inguinal hernias are seen. Bones: No aggressive osseous abnormality. IMPRESSION: Previously seen sigmoid colon diverticulitis is essentially resolved. No fluid collection. Dictated by: Dragan Yung M.D. on 03/19/2025 at 11:11 Approved by: Dragan Yung M.D. on 03/19/2025 at 11:20
[2025-03-19] MEDS: SODIUM CHLORIDE 0.9% 1,000 ML 1000 ML IV (09:55)
[2025-03-19] MEDS: HYDROMORPHONE 1 MG INJ IV ×4 (09:55→16:29)
[2025-03-19 09:56] LABS: Add Manual Diff / Slide Review NO; Hematocrit 36.5 % (36-46); Hemoglobin 12.3 g/dL (12.0-16.0); Lymphocytes Absolute Auto 3100 /uL (1100-4500); Mean Corpuscular HGB Conc 33.7 % (30-36); Mean Corpuscular Hemoglobin 26.6 PG (26-34); Mean Corpuscular Volume 79.0 fL (80-100)
[2025-03-19] MEDS: ONDANSETRON 4 MG/2 ML INJ IV ×2 (09:56→20:14)
[2025-03-19 09:57] LABS: Platelet Count 95 X10^3/uL (150-400)
[2025-03-19 09:58] LABS: Alanine Aminotransferase 26 IU/L (<35); Albumin 5.4 g/dL (3.5-5.0); Albumin Globulin Ratio 1.6 (1.0-2.8); Alkaline Phosphatase 54 U/L (38-126); Blood Urea Nitrogen 14 mg/dL (7-17); Calcium 10.2 mg/dL (8.4-10.2); Carbon Dioxide 15 mmol/L (22-32); Chloride 105 mmol/L (98-107); Estimated Glomerular Filt Rate > 60 mL/min (>60); Globulin 3.4 g/dL (1.7-4.1); Glucose 150 mg/dL (70-99); Lipase 80 U/L (23-300); Potassium 4.2 mmol/L (3.4-5.1); Sodium 139 mmol/L (137-145); Total Protein 8.8 g/dL (6.3-8.2)
[2025-03-19 09:59] LABS: HEMOLYSIS 129 (0-50)
[2025-03-19 10:16] LABS: HCG Quantitative /Beta subunit < 2.39 mIU/mL; Procalcitonin 0.046 ng/mL (<0.5)
[2025-03-19 10:27] LABS: Lactate (Lactic Acid) 3.4 mmol/L (0.7-2.1)
[2025-03-19 11:49] LABS: Reflexed Lactate in 2 Hours Y
--- NOTE | 2025-03-19 12:56 | PC.NURSE ---
Addendum entered by Ashleigh Reilly R.N. 03/19/25 12:58: made aware Original Note: Gastric contents + blood 1132 IR 08/2026 developer: [id number] 06/2027
[2025-03-19 13:18] LABS: Lactate 2HR (Lactic Acid Rflx) 1.8 mmol/L (0.7-2.1)
--- NOTE | 2025-03-19 14:23 | ED.NAVMDI ---
HPI - Nausea/Vomiting/Diarrhea General Chief complaint: Nausea/Vomiting/Diarrhea Stated complaint: Black vomit/coffee ground appearance/stomach pain Time Seen by Provider: 03/19/25 09:22 Source: patient Mode of arrival: Ambulatory History of Present Illness HPI Narrative: The patient is a 44-year-old female who presents with coffee-ground emesis. The patient started vomiting yesterday evening and states she has had at least 100 episodes of vomiting. She describes coffee-ground in her emesis. She stated that there were episodes of pure bile in her vomit and that subsequently switched over the coffee-grounds. She denies any melena. She is complaining of periumbilical abdominal pain. She has had 2 admissions to the hospital since September for diverticulitis. She also has a history of coffee-ground emesis and melena. She had an EGD and colonoscopy done on October 04 of this year with no significant findings. She denies smoking marijuana but does state she will occasionally use gummies an effort to help with her nausea. There is a family member who smokes marijuana but reportedly leaves the house or smokes it in the basement. She has had multiple ED visits for intractable nausea and vomiting. Related Data Home Medications ?Medication ?Instructions ?Recorded ?Confirmed metoclopramide HCl 5 mg tablet 5 mg PO QAC 07/24/24 03/18/25 (Reglan) Previous Rx's ?Medication ?Instructions ?Recorded estradiol 0.5 mg tablet 0.5 mg PO DAILY #30 tabs 11/12/24 lisinopril 5 mg tablet 5 mg PO DAILY #30 tabs 02/07/25 oxycodone 10 mg tablet 10 mg PO Q4-8H PRN Pain, Severe 03/05/25 (7-10) #15 tabs oxycodone 5 mg tablet 5 - 10 mg (1 - 2 x 5 mg) PO Q6H 03/08/25 PRN pain #30 tabs clonazepam 0.5 mg tablet 0.5 mg PO BID #60 tabs 03/18/25 lamotrigine 100 mg tablet 100 mg PO DAILY #90 tabs 03/18/25 promethazine 25 mg tablet 25 mg PO Q6H PRN nausea and 03/18/25 vomiting #14 tabs Allergies Allergy/AdvReac Type Severity Reaction Status Date / Time vancomycin Allergy Intermediate ITCHING Verified 03/18/25 11:08 gluten Allergy Celiac Verified 03/18/25 11:08 NSAIDS (Non-Steroidal AdvReac Mild Gastrointestinal Verified 03/18/25 11:08 Anti-Inflamma Upset benzonatate (From Tessalon AdvReac Unknown Hives Verified 03/18/25 11:08 Perles) escitalopram (From Lexapro) AdvReac Unknown Hallucinati Verified 03/18/25 11:08 ng Review of Systems Review of Systems ROS Unobtainable: All systems reviewed & are unremarkable except as noted in HPI and below Patient History Medical History Left corneal abrasion Headache Polycystic ovary disease Celiac disease GERD with apnea Hypertension Bipolar disorder Surgical History H/O: hysterectomy Status post tubal ligation History of section H/O abdominoplasty H/O oophorectomy H/O gastric sleeve History of cholecystectomy History of appendectomy Social History marital status: household members: significant other and children lives independently: Yes occupational status: employed alcohol intake: never substance use type: marijuana alcohol intake frequency: holidays/special occasions only Exam Narrative Exam Narrative: Patient is a well-developed well-nourished adult female who appears to be in no acute distress. HEENT is within normal limits Neck reveals full range of motion and is supple Lungs are clear to auscultation bilaterally Cardiac reveals a regular rate and rhythm without murmurs rubs or gallops Abdomen is soft, mild right lower quadrant, periumbilical, and left lower quadrant tenderness. There is no guarding or rigidity. Bowel sounds are active Extremities reveal full range of motion Neuro is grossly intact Initial Vital Signs Initial Vital Signs: Vital Signs Temperature 98.4 F 03/19/25 09:21 Pulse Rate 94 H 03/19/25 09:21 Respiratory Rate 26 H 03/19/25 09:21 Blood Pressure 199/101 H 03/19/25 09:21 Pulse Oximetry 99 03/19/25 09:21 Oxygen Delivery Method Room Air 03/19/25 09:21 Course Orders Ordered: ED Orders 03/19/25 09:36 Complete Blood Count AUTO DIFF Stat Comprehensive Metabolic Panel Stat HCG Quantitative /Beta subunit Stat Lipase Stat Procalcitonin Stat 03/19/25 09:44 CT abdomen pelvis w con Stat GI Panel (Film Array) Stat Gastric Occult with pH Stat Urinalysis and Microscopic Stat 03/19/25 10:05 Lactate (Lactic Acid) Stat Discontinued Medications Diazepam (Diazepam 10 Mg/2 Ml Syringe) 5 mg IV NOW ONE Stop: 03/19/25 09:54 Last Admin: 03/19/25 09:57 Dose: 5 mg Documented By: Diazepam (Diazepam 10 Mg/2 Ml Syringe) 5 mg IV NOW ONE Stop: 03/19/25 13:01 Last Admin: 03/19/25 13:13 Dose: 5 mg Documented By: HAYDEE Hydromorphone HCl (Hydromorphone 1 Mg Inj) 1 mg IV NOW ONE Stop: 03/19/25 09:45 Last Admin: 03/19/25 09:55 Dose: 1 mg Documented By: Hydromorphone HCl (Hydromorphone 1 Mg Inj) 1 mg IV NOW ONE Stop: 03/19/25 11:42 Last Admin: 03/19/25 11:45 Dose: 1 mg Documented By: OCTAVIANO Hydromorphone HCl (Hydromorphone 1 Mg Inj) 1 mg IV NOW ONE Stop: 03/19/25 13:01 Last Admin: 03/19/25 13:13 Dose: 0.5 mg Documented By: HAYDEE Sodium Chloride (Normal Saline 0.9%) 1,000 mls @ 1,000 mls/hr IV BOLUS ONE Stop: 03/19/25 10:43 Last Infusion: 03/19/25 11:30 Dose: Infused Documented By: Admin: 03/19/25 09:55 Dose: 1,000 mls/hr Documented By: Lorazepam (Lorazepam 2 Mg/Ml Inj) 1 mg IV NOW ONE Stop: 03/19/25 09:45 Last Admin: 03/19/25 10:25 Dose: Not Given Documented By: HAYDEE Ondansetron HCl (Ondansetron 4 Mg/2 Ml Inj) 4 mg IV NOW ONE Stop: 03/19/25 09:45 Last Admin: 03/19/25 09:56 Dose: 4 mg Documented By: Vital Signs Vital signs: Vital Signs - 8 hr 03/19/25 09:21 03/19/25 09:41 03/19/25 10:00 Temperature 98.4 F Pulse Rate 94 H 80 94 H Respiratory Rate 26 H 36 H Blood Pressure 199/101 H Pulse Oximetry 99 97 98 Oxygen Delivery Method Room Air 03/19/25 10:30 03/19/25 11:00 03/19/25 11:30 Temperature Pulse Rate 74 75 69 Respiratory Rate 25 H 29 H 28 H Blood Pressure Pulse Oximetry 100 98 95 Oxygen Delivery Method 03/19/25 12:00 Temperature Pulse Rate 70 Respiratory Rate 34 H Blood Pressure Pulse Oximetry 100 Oxygen Delivery Method MDM - Nausea/Vomiting/Diarrhea Lab Data 03/19/25 09:36 03/19/25 09:36 Labs: Lab Results 03/19/25 03/19/25 03/19/25 Range/Units 09:36 10:05 12:58 WBC 13.6 H (4.5-11.0) X10^3/uL RBC 4.62 (4.0-5.2) X10^6/uL Hgb 12.3 (12.0-16.0) g/dL Hct 36.5 (36-46) % MCV 79.0 L (80-100) fL MCH 26.6 (26-34) PG MCHC 33.7 (30-36) % RDW 17.6 H (11.6-14.8) % Plt Count 95 L (150-400) X10^3/uL Neut % (Auto) 67.5 (50-75) % Lymph % (Auto) 23.0 L (25-40) % Bland % (Auto) 8.9 (3-14) % Eos % (Auto) 0.1 L (2-4) % Baso % (Auto) 0.5 (0-2) % Neut # (Auto) 9200 H (9983-7133) /uL Lymph # (Auto) 3100 (3993-0267) /uL Bland # (Auto) 1200 H (0-900) /uL Eos # (Auto) 0 (0-450) /uL Baso # (Auto) 100 (0-100) /uL Sodium 139 (137-145) mmol/L Potassium 4.2 (3.4-5.1) mmol/L Chloride 105 (98-107) mmol/L Carbon Dioxide 15 L (22-32) mmol/L BUN 14 (7-17) mg/dL Creatinine 0.86 (0.52-1.04) mg/dL Estimated GFR > 60 (>60) mL/min BUN/Creatinine Ratio 16.3 (6-22) Glucose 150 H (70-99) mg/dL Lactate 3.4 H 1.8 (0.7-2.1) mmol/L Calcium 10.2 (8.4-10.2) mg/dL Total Bilirubin 2.5 H (0.2-1.3) mg/dL AST 41 H (14-36) IU/L ALT 26 (<35) IU/L Alkaline Phosphatase 54 (38-126) U/L Total Protein 8.8 H (6.3-8.2) g/dL Albumin 5.4 H (3.5-5.0) g/dL Globulin 3.4 (1.7-4.1) g/dL Albumin/Globulin Ratio 1.6 (1.0-2.8) Lipase 80 (23-300) U/L Procalcitonin 0.046 (<0.5) ng/mL HCG, Quant < 2.39 mIU/mL Discharge Plan Departure Prescriptions: No Action lisinopril 5 mg tablet 5 mg PO DAILY Qty: 30 3RF clonazepam 0.5 mg tablet 0.5 mg PO BID Qty: 60 5RF lamotrigine 100 mg tablet 100 mg PO DAILY Qty: 90 3RF promethazine 25 mg tablet 25 mg PO Q6H PRN (Reason: nausea and vomiting) Qty: 14 3RF estradiol 0.5 mg tablet 0.5 mg PO DAILY Qty: 30 3RF oxycodone 5 mg tablet 5 - 10 mg PO Q6H PRN (Reason: pain) Qty: 30 0RF metoclopramide HCl [Reglan] 5 mg Tablet 5 mg PO QAC Rx Instructions: administer 30 minutes before meals oxycodone 10 mg Tablet 10 mg PO Q4-8H PRN (Reason: Pain, Severe (7-10)) Qty: 15 0RF Referrals: Sarah Dunbar MD [Primary Care Provider, Family Practice]
--- NOTE | 2025-03-19 14:35 | PM.CN.IH.1 ---
History of Present Illness Consult details Date Patient Seen: 03/19/25 Time Patient Seen: 14:00 Chief complaint: Black vomit/coffee ground appearance/stomach pain Narrative: he patient is a 44-year-old female who presents with coffee-ground emesis. The patient started vomiting yesterday evening and states she has had at least 100 episodes of vomiting. She describes coffee-ground in her emesis. She stated that there were episodes of pure bile in her vomit and that subsequently switched over the coffee-grounds. She denies any melena. She is complaining of periumbilical abdominal pain. She has had 2 admissions to the hospital since September for diverticulitis. She also has a history of coffee-ground emesis and melena. She had an EGD and colonoscopy done on October 04 of this year with no significant findings. She denies smoking marijuana but does state she will occasionally use gummies an effort to help with her nausea. There is a family member who smokes marijuana but reportedly leaves the house or smokes it in the basement. She has had multiple ED visits for intractable nausea and vomiting. Meds Home Medications and Allergies Home Medications ?Medication ?Instructions ?Recorded ?Confirmed ?Type metoclopramide HCl 5 mg tablet 5 mg PO QAC 07/24/24 03/18/25 History (Reglan) estradiol 0.5 mg tablet 0.5 mg PO DAILY #30 tabs 11/12/24 03/18/25 Rx lisinopril 5 mg tablet 5 mg PO DAILY #30 tabs 02/07/25 03/18/25 Rx oxycodone 10 mg tablet 10 mg PO Q4-8H PRN Pain, Severe 03/05/25 03/18/25 Rx (7-10) #15 tabs oxycodone 5 mg tablet 5 - 10 mg (1 - 2 x 5 mg) PO Q6H 03/08/25 03/18/25 Rx PRN pain #30 tabs clonazepam 0.5 mg tablet 0.5 mg PO BID #60 tabs 03/18/25 03/18/25 Rx lamotrigine 100 mg tablet 100 mg PO DAILY #90 tabs 03/18/25 03/18/25 Rx promethazine 25 mg tablet 25 mg PO Q6H PRN nausea and 03/18/25 03/18/25 Rx vomiting #14 tabs Allergies Allergy/AdvReac Type Severity Reaction Status Date / Time vancomycin Allergy Intermediate ITCHING Verified 03/18/25 11:08 gluten Allergy Celiac Verified 03/18/25 11:08 NSAIDS (Non-Steroidal AdvReac Mild Gastrointestinal Verified 03/18/25 11:08 Anti-Inflamma Upset benzonatate (From Tessalon AdvReac Unknown Hives Verified 03/18/25 11:08 Perles) escitalopram (From Lexapro) AdvReac Unknown Hallucinati Verified 03/18/25 11:08 ng Review of Systems Review of Systems ROS: Yes All systems reviewed with the patient and are negative except as otherwise documented Exam Vital Signs (past 8 hours): - 03/19/25 09:21 03/19/25 09:41 03/19/25 10:00 Temperature 98.4 F Pulse Rate 94 H 80 94 H Respiratory Rate 26 H 36 H Blood Pressure 199/101 H Pulse Oximetry 99 97 98 Oxygen Delivery Method Room Air 03/19/25 10:30 03/19/25 11:00 03/19/25 11:30 Temperature Pulse Rate 74 75 69 Respiratory Rate 25 H 29 H 28 H Blood Pressure Pulse Oximetry 100 98 95 Oxygen Delivery Method 03/19/25 12:00 Temperature Pulse Rate 70 Respiratory Rate 34 H Blood Pressure Pulse Oximetry 100 Oxygen Delivery Method Oxygen Delivery Method Room Air Narrative Exam Narrative: Patient is a well-developed well-nourished female in no acute distress HEENT is within normal limits Neck reveals full range of motion is supple Lungs are clear to auscultation bilaterally Cardiac reveals a regular rate and rhythm without murmurs rubs or gallops Abdomen is soft with periumbilical left lower quadrant and right lower quadrant tenderness without guarding or rigidity. Bowel sounds are active Extremities with full range of motion Neuro is grossly intact Objective Labs 03/19/25 09:36 03/19/25 09:36 Labs: Laboratory Results - last 24 hr 03/19/25 03/19/25 03/19/25 09:36 10:05 12:58 WBC 13.6 H RBC 4.62 Hgb 12.3 Hct 36.5 MCV 79.0 L MCH 26.6 MCHC 33.7 RDW 17.6 H Plt Count 95 L Neut % (Auto) 67.5 Lymph % (Auto) 23.0 L [place] % (Auto) 8.9 Eos % (Auto) 0.1 L Baso % (Auto) 0.5 Neut # (Auto) 9200 H Lymph # (Auto) 3100 [place] # (Auto) 1200 H Eos # (Auto) 0 Baso # (Auto) 100 Sodium 139 Potassium 4.2 Chloride 105 Carbon Dioxide 15 L BUN 14 Creatinine 0.86 Estimated GFR > 60 BUN/Creatinine Ratio 16.3 Glucose 150 H Lactate 3.4 H 1.8 Calcium 10.2 Total Bilirubin 2.5 H AST 41 H ALT 26 Alkaline Phosphatase 54 Total Protein 8.8 H Albumin 5.4 H Globulin 3.4 Albumin/Globulin Ratio 1.6 Lipase 80 Procalcitonin 0.046 HCG, Quant < 2.39 PFSH Medical History Left corneal abrasion Headache Polycystic ovary disease Celiac disease GERD with apnea Hypertension Bipolar disorder Surgical History H/O: hysterectomy Status post tubal ligation History of section H/O abdominoplasty H/O oophorectomy H/O gastric sleeve History of cholecystectomy History of appendectomy Social History marital status: household members: significant other and children lives independently: Yes occupational status: employed Tobacco & Substance Use alcohol intake: never substance use type: marijuana Assessment & Plan Assessment and plan (1) Anxiety: Status: Acute (2) Nausea & vomiting: Qualifiers: Vomiting type: hematemesis Qualified Code(s): K92.0 - Hematemesis Status: Acute (3) Abdominal pain: Qualifiers: Abdominal location: generalized Qualified Code(s): R10.84 - Generalized abdominal pain Status: Acute (4) Coffee ground emesis: Status: Acute Plan Patient with recurrent episodes of coffee-ground emesis following a period of frequent nausea and vomiting. She had a EGD and colonoscopy done March 04 with no significant findings. 1 May consider Amanda-Noel tear as the potential etiology. While the patient denies marijuana use but is around marijuana with a family member using it, is hyperemesis cannabis a consideration. I believe a trial of capsaicin ointment may be in order. Time-Based Coding :: [TOTAL MINUTES] spent with patient and on the chart (including review of chart, obtaining history, exam, reviewing outside data, placing orders, documenting exam and treatment plan, and counseling patient) on [DATE]. PROFEE Charge Codes Inpatient or Observation consultation: 84007
[2025-03-19 16:45] LABS: Appearance Urine UA CLEAR; Bilirubin Urine UA NEGATIVE (NEGATIVE); Color Urine UA YELLOW; Glucose Urine UA NEGATIVE (Negative); Ketones Urine UA 1+ (NEGATIVE); Leukocyte Esterase Urine UA NEGATIVE (NEGATIVE); Nitrite Urine UA NEGATIVE (Negative); Occult Blood Urine UA NEGATIVE (Negative); Protein Urine UA TRACE (Negative); Specific Gravity Urine UA 1.015 (1.000-1.035); Urobilinogen Urine UA 1.0 E.U./dL (0.2)
[2025-03-19 16:49] LABS: PH Gastric Fluid 2 pH (1-2)
[2025-03-19 16:53] LABS: Culture Indicated Urine Cult Not Indicated; pH Urine UA 5.5 (4.5-8.0)
--- NOTE | 2025-03-19 17:02 | ED.NAVMDI ---
HPI - Nausea/Vomiting/Diarrhea General Chief complaint: Nausea/Vomiting/Diarrhea Stated complaint: Black vomit/coffee ground appearance/stomach pain Time Seen by Provider: 03/19/25 09:22 Source: patient Mode of arrival: Ambulatory History of Present Illness HPI Narrative: Pleasant 44-year-old woman with a recent hospitalization for upper GI bleed where she ended up having colonoscopy and EGD without any significant findings related to the bleeding returns to the ER for the same complaint. She has been having severe vomiting black coffee-ground emesis the entire day. She denies any fever, chills, sweats. She denies any diarrhea black stools red stools. She denies any hematochezia. She is having abdominal cramping/pain which is severe. She also experienced similar pain during the last episode. She does have GI follow-up scheduled for May. Related Data Home Medications ?Medication ?Instructions ?Recorded ?Confirmed metoclopramide HCl 5 mg tablet 5 mg PO QAC 07/24/24 03/18/25 (Reglan) Previous Rx's ?Medication ?Instructions ?Recorded estradiol 0.5 mg tablet 0.5 mg PO DAILY #30 tabs 11/12/24 lisinopril 5 mg tablet 5 mg PO DAILY #30 tabs 02/07/25 oxycodone 10 mg tablet 10 mg PO Q4-8H PRN Pain, Severe 03/05/25 (7-10) #15 tabs oxycodone 5 mg tablet 5 - 10 mg (1 - 2 x 5 mg) PO Q6H 03/08/25 PRN pain #30 tabs clonazepam 0.5 mg tablet 0.5 mg PO BID #60 tabs 03/18/25 lamotrigine 100 mg tablet 100 mg PO DAILY #90 tabs 03/18/25 promethazine 25 mg tablet 25 mg PO Q6H PRN nausea and 03/18/25 vomiting #14 tabs Allergies Allergy/AdvReac Type Severity Reaction Status Date / Time vancomycin Allergy Intermediate ITCHING Verified 03/18/25 11:08 gluten Allergy Celiac Verified 03/18/25 11:08 NSAIDS (Non-Steroidal AdvReac Mild Gastrointestinal Verified 03/18/25 11:08 Anti-Inflamma Upset benzonatate (From Tessalon AdvReac Unknown Hives Verified 03/18/25 11:08 [place]) escitalopram (From Lexapro) AdvReac Unknown Hallucinati Verified 03/18/25 11:08 ng Patient History Medical History Left corneal abrasion Headache Polycystic ovary disease Celiac disease GERD with apnea Hypertension Bipolar disorder Surgical History H/O: hysterectomy Status post tubal ligation History of section H/O abdominoplasty H/O oophorectomy H/O gastric sleeve History of cholecystectomy History of appendectomy Social History marital status: household members: significant other and children lives independently: Yes occupational status: employed alcohol intake: never substance use type: marijuana alcohol intake frequency: holidays/special occasions only Exam Initial Vital Signs Initial Vital Signs: Vital Signs Temperature 98.4 F 03/19/25 09:21 Pulse Rate 94 H 03/19/25 09:21 Respiratory Rate 26 H 03/19/25 09:21 Blood Pressure 199/101 H 03/19/25 09:21 Pulse Oximetry 99 03/19/25 09:21 Oxygen Delivery Method Room Air 03/19/25 09:21 Const General: acute distress, in distress, No diaphoretic and ill appearing Limitations: altered mental status HENUT Head: normocephalic and atraumatic Face and sinus: normal facial exam Eyes Pupils: PERRL EOM: EOM intact bilaterally Course Course Course Narrative: Patient was in extreme distress upon presentation. Her symptoms were controlled reasonably well with antiemetics and Dilaudid. Eventually she was in much less distress but still having some pain. Her gastroccult was positive. No stool sample was obtained in the ER. I discussed the case with our surgeon on-call who suggested possible GI consult because the patient had such a recent EGD. I spoke with the GI on-call from [facility] who refused the patient and stated that his next step would just be an EGD which could be done at our facility. I discussed this with our surgeon again and he agreed to consult on the patient here. I then discussed the case with the hospitalist on-call and he accepted the patient for admission. Orders Ordered: ED Orders 03/19/25 09:36 Complete Blood Count AUTO DIFF Stat Comprehensive Metabolic Panel Stat HCG Quantitative /Beta subunit Stat Lipase Stat Procalcitonin Stat 03/19/25 09:44 CT abdomen pelvis w con Stat GI Panel (Film Array) Stat 03/19/25 10:05 Lactate (Lactic Acid) Stat 03/19/25 15:45 Urinalysis and Microscopic Stat 03/19/25 16:33 Gastric Occult with pH Stat Discontinued Medications Diazepam (Diazepam 10 Mg/2 Ml Syringe) 5 mg IV NOW ONE Stop: 03/19/25 09:54 Last Admin: 03/19/25 09:57 Dose: 5 mg Documented By: Diazepam (Diazepam 10 Mg/2 Ml Syringe) 5 mg IV NOW ONE Stop: 03/19/25 13:01 Last Admin: 03/19/25 13:13 Dose: 5 mg Documented By: HAYDEE Diazepam (Diazepam 10 Mg/2 Ml Syringe) 10 mg IV NOW ONE Stop: 03/19/25 16:17 Hydromorphone HCl (Hydromorphone 1 Mg Inj) 1 mg IV NOW ONE Stop: 03/19/25 09:45 Last Admin: 03/19/25 09:55 Dose: 1 mg Documented By: Hydromorphone HCl (Hydromorphone 1 Mg Inj) 1 mg IV NOW ONE Stop: 03/19/25 11:42 Last Admin: 03/19/25 11:45 Dose: 1 mg Documented By: OCTAVIANO Hydromorphone HCl (Hydromorphone 1 Mg Inj) 1 mg IV NOW ONE Stop: 03/19/25 13:01 Last Admin: 03/19/25 13:13 Dose: 0.5 mg Documented By: HAYDEE Hydromorphone HCl (Hydromorphone 1 Mg Inj) 1 mg IV NOW ONE Stop: 03/19/25 16:16 Last Admin: 03/19/25 16:29 Dose: 1 mg Documented By: HAYDEE Sodium Chloride (Normal Saline 0.9%) 1,000 mls @ 1,000 mls/hr IV BOLUS ONE Stop: 03/19/25 10:43 Last Infusion: 03/19/25 11:30 Dose: Infused Documented By: Admin: 03/19/25 09:55 Dose: 1,000 mls/hr Documented By: Lorazepam (Lorazepam 2 Mg/Ml Inj) 1 mg IV NOW ONE Stop: 03/19/25 09:45 Last Admin: 03/19/25 10:25 Dose: Not Given Documented By: HAYDEE Ondansetron HCl (Ondansetron 4 Mg/2 Ml Inj) 4 mg IV NOW ONE Stop: 03/19/25 09:45 Last Admin: 03/19/25 09:56 Dose: 4 mg Documented By: Vital Signs Vital signs: Vital Signs - 8 hr 03/19/25 09:21 03/19/25 09:41 03/19/25 10:00 Temperature 98.4 F Pulse Rate 94 H 80 94 H Respiratory Rate 26 H 36 H Blood Pressure 199/101 H Pulse Oximetry 99 97 98 Oxygen Delivery Method Room Air 03/19/25 10:30 03/19/25 11:00 03/19/25 11:30 Temperature Pulse Rate 74 75 69 Respiratory Rate 25 H 29 H 28 H Blood Pressure Pulse Oximetry 100 98 95 Oxygen Delivery Method 03/19/25 12:00 03/19/25 12:30 03/19/25 13:00 Temperature Pulse Rate 70 81 76 Respiratory Rate 34 H 27 H Blood Pressure Pulse Oximetry 100 98 98 Oxygen Delivery Method 03/19/25 13:18 03/19/25 13:18 03/19/25 13:21 Temperature Pulse Rate 59 L 55 L Respiratory Rate 24 15 Blood Pressure 179/86 H Pulse Oximetry 98 97 Oxygen Delivery Method 03/19/25 13:21 03/19/25 13:30 03/19/25 13:30 Temperature Pulse Rate 77 Respiratory Rate Blood Pressure 182/87 H 169/74 H Pulse Oximetry 98 Oxygen Delivery Method 03/19/25 14:00 03/19/25 14:01 03/19/25 14:01 Temperature Pulse Rate 54 L 61 Respiratory Rate 22 18 Blood Pressure 130/85 Pulse Oximetry 99 99 Oxygen Delivery Method 03/19/25 14:30 03/19/25 14:30 03/19/25 15:00 Temperature Pulse Rate 54 L 60 Respiratory Rate 21 Blood Pressure 141/68 H Pulse Oximetry 100 99 Oxygen Delivery Method 03/19/25 15:00 03/19/25 15:33 03/19/25 16:00 Temperature Pulse Rate 93 H 76 Respiratory Rate 32 H 26 H Blood Pressure 163/92 H Pulse Oximetry 91 98 Oxygen Delivery Method 03/19/25 16:01 03/19/25 16:01 03/19/25 16:30 Temperature Pulse Rate 73 79 Respiratory Rate 33 H 23 Blood Pressure 135/104 H Pulse Oximetry 99 100 Oxygen Delivery Method 03/19/25 16:31 03/19/25 16:31 Temperature Pulse Rate 75 Respiratory Rate 23 Blood Pressure 161/80 H Pulse Oximetry 100 Oxygen Delivery Method MDM - Nausea/Vomiting/Diarrhea Differential Diagnosis Differential diagnosis: Likely gastroenteritis, drug-induced nausea and vomiting and other (GI bleed) Lab Data 03/19/25 09:36 03/19/25 09:36 Labs: Lab Results 03/19/25 03/19/25 03/19/25 Range/Units 09:36 10:05 12:58 WBC 13.6 H (4.5-11.0) X10^3/uL RBC 4.62 (4.0-5.2) X10^6/uL Hgb 12.3 (12.0-16.0) g/dL Hct 36.5 (36-46) % MCV 79.0 L (80-100) fL MCH 26.6 (26-34) PG MCHC 33.7 (30-36) % RDW 17.6 H (11.6-14.8) % Plt Count 95 L (150-400) X10^3/uL Neut % (Auto) 67.5 (50-75) % Lymph % (Auto) 23.0 L (25-40) % [place] % (Auto) 8.9 (3-14) % Eos % (Auto) 0.1 L (2-4) % Baso % (Auto) 0.5 (0-2) % Neut # (Auto) 9200 H (8879-7885) /uL Lymph # (Auto) 3100 (8697-7637) /uL [place] # (Auto) 1200 H (0-900) /uL Eos # (Auto) 0 (0-450) /uL Baso # (Auto) 100 (0-100) /uL Sodium 139 (137-145) mmol/L Potassium 4.2 (3.4-5.1) mmol/L Chloride 105 (98-107) mmol/L Carbon Dioxide 15 L (22-32) mmol/L BUN 14 (7-17) mg/dL Creatinine 0.86 (0.52-1.04) mg/dL Estimated GFR > 60 (>60) mL/min BUN/Creatinine Ratio 16.3 (6-22) Glucose 150 H (70-99) mg/dL Lactate 3.4 H 1.8 (0.7-2.1) mmol/L Calcium 10.2 (8.4-10.2) mg/dL Total Bilirubin 2.5 H (0.2-1.3) mg/dL AST 41 H (14-36) IU/L ALT 26 (<35) IU/L Alkaline Phosphatase 54 (38-126) U/L Total Protein 8.8 H (6.3-8.2) g/dL Albumin 5.4 H (3.5-5.0) g/dL Globulin 3.4 (1.7-4.1) g/dL Albumin/Globulin Ratio 1.6 (1.0-2.8) Lipase 80 (23-300) U/L Procalcitonin 0.046 (<0.5) ng/mL HCG, Quant < 2.39 mIU/mL Urine Color Urine Appearance Urine pH (4.5-8.0) Ur Specific [place] (1.000-1.035) Urine Protein (Negative) Urine Glucose (UA) (Negative) g/dL Urine Ketones (NEGATIVE) Urine Occult Blood (Negative) Urine Nitrate (Negative) Urine Bilirubin (NEGATIVE) Urine Urobilinogen (0.2) E.U./dL Ur Leukocyte Esterase (NEGATIVE) Urine RBC (0-5/HPF) Urine WBC (0-5/HPF) Ur Squamous Epith Cells (0-5/HPF) Urine Bacteria (None) Ur Culture Indicated? Vol Urine Centrifuged Gastric Fluid pH (1-2) pH Gastric Occult Blood (NEGATIVE) 03/19/25 03/19/25 Range/Units 15:45 16:33 WBC (4.5-11.0) X10^3/uL RBC (4.0-5.2) X10^6/uL Hgb (12.0-16.0) g/dL Hct (36-46) % MCV (80-100) fL MCH (26-34) PG MCHC (30-36) % RDW (11.6-14.8) % Plt Count (150-400) X10^3/uL Neut % (Auto) (50-75) % Lymph % (Auto) (25-40) % [place] % (Auto) (3-14) % Eos % (Auto) (2-4) % Baso % (Auto) (0-2) % Neut # (Auto) (8537-0325) /uL Lymph # (Auto) (0088-1383) /uL [place] # (Auto) (0-900) /uL Eos # (Auto) (0-450) /uL Baso # (Auto) (0-100) /uL Sodium (137-145) mmol/L Potassium (3.4-5.1) mmol/L Chloride (98-107) mmol/L Carbon Dioxide (22-32) mmol/L BUN (7-17) mg/dL Creatinine (0.52-1.04) mg/dL Estimated GFR (>60) mL/min BUN/Creatinine Ratio (6-22) Glucose (70-99) mg/dL Lactate (0.7-2.1) mmol/L Calcium (8.4-10.2) mg/dL Total Bilirubin (0.2-1.3) mg/dL AST (14-36) IU/L ALT (<35) IU/L Alkaline Phosphatase (38-126) U/L Total Protein (6.3-8.2) g/dL Albumin (3.5-5.0) g/dL Globulin (1.7-4.1) g/dL Albumin/Globulin Ratio (1.0-2.8) Lipase (23-300) U/L Procalcitonin (<0.5) ng/mL HCG, Quant mIU/mL Urine Color Yellow Urine Appearance Clear Urine pH 5.5 (4.5-8.0) Ur Specific [place] 1.015 (1.000-1.035) Urine Protein Trace H (Negative) Urine Glucose (UA) Negative (Negative) g/dL Urine Ketones 1+ H (NEGATIVE) Urine Occult Blood Negative (Negative) Urine Nitrate Negative (Negative) Urine Bilirubin Negative (NEGATIVE) Urine Urobilinogen 1.0 (0.2) E.U./dL Ur Leukocyte Esterase Negative (NEGATIVE) Urine RBC 0-1/hpf (0-5/HPF) Urine WBC 0-1/hpf (0-5/HPF) Ur Squamous Epith Cells 0-1 /hpf (0-5/HPF) Urine Bacteria None seen (None) Ur Culture Indicated? Cult not indicated Vol Urine Centrifuged 10ml (spun) Gastric Fluid pH 2 (1-2) pH Gastric Occult Blood Negative (NEGATIVE) Discharge Plan Departure Patient Disposition: Admitted as Observation Clinical Impression: Coffee ground emesis
--- NOTE | 2025-03-19 17:26 | PM.HP.1 ---
History of Present Illness History of Present Illness Date Patient Seen: 03/19/25 Chief complaint: Black vomit/coffee ground appearance/stomach pain Narrative: Chief complaint: Coffee-ground emesis and abdominal pain History of present illness: 03/19: Pleasant 44-year-old woman with a recent hospitalization for upper GI bleed where she ended up having colonoscopy and EGD without any significant findings related to the bleeding returns to the ER for the same complaint. She has been having severe vomiting black coffee-ground emesis the entire day. She denies any fever, chills, sweats. She denies any diarrhea black stools red stools. She denies any hematochezia. She is having abdominal cramping/pain which is severe. She also experienced similar pain during the last episode. She does have GI follow-up scheduled for May. Emergency room course per emergency room physician documentation: Patient was in extreme distress upon presentation. Her symptoms were controlled reasonably well with antiemetics and Dilaudid. Eventually she was in much less distress but still having some pain. Her gastroccult was positive. No stool sample was obtained in the ER. I discussed the case with our surgeon on-call who suggested possible GI consult because the patient had such a recent EGD. I spoke with the GI on-call from [facility] who refused the patient and stated that his next step would just be an EGD which could be done at our facility. I discussed this with our surgeon again and he agreed to consult on the patient here. I then discussed the case with the hospitalist on-call and he accepted the patient for admission. Review of systems: No unusual weight loss or weight gain Physical exam: Patient in obvious distress very discomfort bending over No respiratory distress For objective laboratory results and imaging please see bottom of the note Assessment and plan: Severe nausea and vomiting abdominal pain Upper GI bleeding with coffee-ground emesis may be a Amanda-Noel tear: Admit for IV fluids NPO and IV ppi Consultation with General surgery for eventual EGD if needed or other procedure Monitor hemoglobin serially Antiemetics and analgesics for pain control DVT prophylaxis: Not indicated Code status: Full code [facility] Medical History Left corneal abrasion Headache Polycystic ovary disease Celiac disease GERD with apnea Hypertension Bipolar disorder Surgical History H/O: hysterectomy Status post tubal ligation History of section H/O abdominoplasty H/O oophorectomy H/O gastric sleeve History of cholecystectomy History of appendectomy Social History marital status: household members: significant other and children lives independently: Yes occupational status: employed alcohol intake: never substance use type: marijuana Meds Home Medications and Allergies Home Medications ?Medication ?Instructions ?Recorded ?Confirmed ?Type metoclopramide HCl 5 mg tablet 5 mg PO QAC 07/24/24 03/18/25 History (Reglan) estradiol 0.5 mg tablet 0.5 mg PO DAILY #30 tabs 11/12/24 03/18/25 Rx lisinopril 5 mg tablet 5 mg PO DAILY #30 tabs 02/07/25 03/18/25 Rx oxycodone 10 mg tablet 10 mg PO Q4-8H PRN Pain, Severe 03/05/25 03/18/25 Rx (7-10) #15 tabs oxycodone 5 mg tablet 5 - 10 mg (1 - 2 x 5 mg) PO Q6H 03/08/25 03/18/25 Rx PRN pain #30 tabs clonazepam 0.5 mg tablet 0.5 mg PO BID #60 tabs 03/18/25 03/18/25 Rx lamotrigine 100 mg tablet 100 mg PO DAILY #90 tabs 03/18/25 03/18/25 Rx promethazine 25 mg tablet 25 mg PO Q6H PRN nausea and 03/18/25 03/18/25 Rx vomiting #14 tabs Allergies Allergy/AdvReac Type Severity Reaction Status Date / Time vancomycin Allergy Intermediate ITCHING Verified 03/18/25 11:08 gluten Allergy Celiac Verified 03/18/25 11:08 NSAIDS (Non-Steroidal AdvReac Mild Gastrointestinal Verified 03/18/25 11:08 Anti-Inflamma Upset benzonatate (From Tessalon AdvReac Unknown Hives Verified 03/18/25 11:08 Perles) escitalopram (From Lexapro) AdvReac Unknown Hallucinati Verified 03/18/25 11:08 ng Exam Vital Signs (past 8 hours): - 03/19/25 09:41 03/19/25 10:00 03/19/25 10:30 Pulse Rate 80 94 H 74 Respiratory Rate 36 H 25 H Blood Pressure Pulse Oximetry 97 98 100 03/19/25 11:00 03/19/25 11:30 03/19/25 12:00 Pulse Rate 75 69 70 Respiratory Rate 29 H 28 H 34 H Blood Pressure Pulse Oximetry 98 95 100 03/19/25 12:30 03/19/25 13:00 03/19/25 13:18 Pulse Rate 81 76 59 L Respiratory Rate 27 H 24 Blood Pressure Pulse Oximetry 98 98 98 03/19/25 13:18 03/19/25 13:21 03/19/25 13:21 Pulse Rate 55 L Respiratory Rate 15 Blood Pressure 179/86 H 182/87 H Pulse Oximetry 97 03/19/25 13:30 03/19/25 13:30 03/19/25 14:00 Pulse Rate 77 54 L Respiratory Rate 22 Blood Pressure 169/74 H Pulse Oximetry 98 99 03/19/25 14:01 03/19/25 14:01 03/19/25 14:30 Pulse Rate 61 54 L Respiratory Rate 18 21 Blood Pressure 130/85 Pulse Oximetry 99 100 03/19/25 14:30 03/19/25 15:00 03/19/25 15:00 Pulse Rate 60 Respiratory Rate Blood Pressure 141/68 H 163/92 H Pulse Oximetry 99 03/19/25 15:33 03/19/25 16:00 03/19/25 16:01 Pulse Rate 93 H 76 73 Respiratory Rate 32 H 26 H 33 H Blood Pressure Pulse Oximetry 91 98 99 03/19/25 16:01 03/19/25 16:30 03/19/25 16:31 Pulse Rate 79 75 Respiratory Rate 23 23 Blood Pressure 135/104 H Pulse Oximetry 100 100 03/19/25 16:31 Pulse Rate Respiratory Rate Blood Pressure 161/80 H Pulse Oximetry Oxygen Delivery Method Room Air Objective Labs 03/19/25 09:36 03/19/25 09:36 Labs: Laboratory Results - last 24 hr 03/19/25 03/19/25 03/19/25 09:36 10:05 12:58 WBC 13.6 H RBC 4.62 Hgb 12.3 Hct 36.5 MCV 79.0 L MCH 26.6 MCHC 33.7 RDW 17.6 H Plt Count 95 L Neut % (Auto) 67.5 Lymph % (Auto) 23.0 L [place] % (Auto) 8.9 Eos % (Auto) 0.1 L Baso % (Auto) 0.5 Neut # (Auto) 9200 H Lymph # (Auto) 3100 [place] # (Auto) 1200 H Eos # (Auto) 0 Baso # (Auto) 100 Sodium 139 Potassium 4.2 Chloride 105 Carbon Dioxide 15 L BUN 14 Creatinine 0.86 Estimated GFR > 60 BUN/Creatinine Ratio 16.3 Glucose 150 H Lactate 3.4 H 1.8 Calcium 10.2 Total Bilirubin 2.5 H AST 41 H ALT 26 Alkaline Phosphatase 54 Total Protein 8.8 H Albumin 5.4 H Globulin 3.4 Albumin/Globulin Ratio 1.6 Lipase 80 Procalcitonin 0.046 HCG, Quant < 2.39 Urine Color Urine Appearance Urine pH Ur Specific [place] Urine Protein Urine Glucose (UA) Urine Ketones Urine Occult Blood Urine Nitrate Urine Bilirubin Urine Urobilinogen Ur Leukocyte Esterase Urine RBC Urine WBC Ur Squamous Epith Cells Urine Bacteria Ur Culture Indicated? Vol Urine Centrifuged Gastric Fluid pH Gastric Occult Blood 03/19/25 03/19/25 15:45 16:33 WBC RBC Hgb Hct MCV MCH MCHC RDW Plt Count Neut % (Auto) Lymph % (Auto) [place] % (Auto) Eos % (Auto) Baso % (Auto) Neut # (Auto) Lymph # (Auto) [place] # (Auto) Eos # (Auto) Baso # (Auto) Sodium Potassium Chloride Carbon Dioxide BUN Creatinine Estimated GFR BUN/Creatinine Ratio Glucose Lactate Calcium Total Bilirubin AST ALT Alkaline Phosphatase Total Protein Albumin Globulin Albumin/Globulin Ratio Lipase Procalcitonin HCG, Quant Urine Color Yellow Urine Appearance Clear Urine pH 5.5 Ur Specific [place] 1.015 Urine Protein Trace H Urine Glucose (UA) Negative Urine Ketones 1+ H Urine Occult Blood Negative Urine Nitrate Negative Urine Bilirubin Negative Urine Urobilinogen 1.0 Ur Leukocyte Esterase Negative Urine RBC 0-1/hpf Urine WBC 0-1/hpf Ur Squamous Epith Cells 0-1 /hpf Urine Bacteria None seen Ur Culture Indicated? Cult not indicated Vol Urine Centrifuged 10ml (spun) Gastric Fluid pH 2 Gastric Occult Blood Negative Assessment & Plan Assessment and plan (1) Coffee ground emesis: Status: Acute Time-Based Coding :: 55 minutes spent with patient and on the chart (including review of chart, obtaining history, exam, reviewing outside data, placing orders, documenting exam and treatment plan, and counseling patient).
--- NOTE | 2025-03-19 17:52 | PC.NURSE ---
Reassess; no change. Persistent vomiting/dry heaves and abd pain
[2025-03-19] MEDS: LACTATED RINGERS 1,000 ML 100 ML IV (20:11)
[2025-03-19] MEDS: TOPIRAMATE 25 MG TABLET PO (20:39)
[2025-03-19] MEDS: PANTOPRAZOLE 40 MG VIAL IV (20:39)
[2025-03-19] MEDS: droPERidol 2.5 MG/ML VIAL IV (20:45)
[2025-03-20] VITALS (12 sets, daily range): BP systolic 112–152; BP diastolic 66–96; PULSE 48–85; RESP 11–21; TEMP 36.4–37; O2SAT 97–100; BMI 32.4
--- NOTE | 2025-03-20 | PATH_ITS ---
[facility] Accession Number: [id number] No. of containers..02 Tissue . 01 Material submitted: . PART A: stomach - ANTRUM PART B: esophagus - ESOPHAGUS, DISTAL . 01 Diagnosis: A. GASTRIC ANTRUM, BIOPSY: Gastric antral mucosa with mild chronic inflammation. Negative for Helicobacter organisms by immunohistochemistry. Negative for intestinal metaplasia. Negative for dysplasia or malignancy. . B. DISTAL ESOPHAGUS, BIOPSY: Squamocolumnar junctional mucosa with mild reactive features of reflux esophagitis. Negative for specialized intestinal metaplasia, dysplasia, or malignancy. MRV 03/29/2025 1414 Local . 01 Electronically signed: . Abdi Geller MD, PhD, Pathologist NPI- [id number] . 01 Gross description: . Part A: ANTRUM: Received in formalin are multiple fragment(s) of vernon, soft tissue measuring 0.1 x 0.1 x 0.1 cm to 0.4 x 0.2 x 0.1 cm submitted entirely in 1 cassette(s) Part B: ESOPHAGUS, DISTAL: Received in formalin are 2 fragment(s) of vernon, soft tissue measuring 0.2 x 0.1 x 0.1 cm to 0.6 x 0.2 x 0.2 cm submitted entirely in 1 cassette(s) /STEPHANIE 03/25/2025 1801 Local . 01 Microscopic: . A. An immunohistochemical stain was performed to evaluate for Helicobacter organisms and is negative. The control stain showed appropriate reactivity. . * This test was developed and the performance characteristics were validated by [facility]. It has not been cleared or approved by the U.S. Food and Drug Administration. . 01 Pathologist provided ICD-10: K29.70, K21.9 . 01 CPT . 505769, 802554, L04080 Specimen Comment: A courtesy copy of this report has been sent to [facility] Pathology Performed at: [address] [address], [place], [place] [id number] MD Paramjit Whitt MD Phone: [phone]
[2025-03-20] MEDS: LACTATED RINGERS 1,000 ML 100 ML IV (04:59)
[2025-03-20] MEDS: droPERidol 2.5 MG/ML VIAL 1.25 MG IV (05:21)
[2025-03-20] MEDS: ONDANSETRON 4 MG/2 ML INJ IV ×4 (07:46→21:00)
[2025-03-20] MEDS: PANTOPRAZOLE 40 MG VIAL IV ×3 (09:02→21:00)
--- NOTE | 2025-03-20 10:13 | PM.PREOP ---
Pre-operative Note Interval Note History & Physical reviewed/Exam performed by Physician: Yes Changes to H&P: No
--- NOTE | 2025-03-20 10:14 | PM.PN.IH.1 ---
Subjective Subjective Date Patient Seen: 03/20/25 Time Patient Seen: 10:14 Interval history: The patient states that she feels fine and has had no more vomiting. She denies any coffee-ground emesis or melena Exam Vital Signs (past 8 hours): - 03/20/25 06:00 03/20/25 08:57 Temperature 98.5 F 97.8 F Pulse Rate 54 L 61 Respiratory Rate 16 16 Blood Pressure 113/69 118/71 Pulse Oximetry 99 98 Oxygen Flow Rate 0 0 Oxygen Delivery Method Room Air Oxygen Flow Rate 0 Narrative Exam Narrative: Patient's exam is unchanged from yesterday. Objective Labs 03/19/25 09:36 03/19/25 09:36 Labs: Laboratory Results - last 24 hr 03/19/25 03/19/25 03/19/25 09:36 10:05 12:58 Lactate 3.4 H 1.8 Procalcitonin 0.046 HCG, Quant < 2.39 Urine Color Urine Appearance Urine pH Ur Specific [place] Urine Protein Urine Glucose (UA) Urine Ketones Urine Occult Blood Urine Nitrate Urine Bilirubin Urine Urobilinogen Ur Leukocyte Esterase Urine RBC Urine WBC Ur Squamous Epith Cells Urine Bacteria Ur Culture Indicated? Vol Urine Centrifuged Gastric Fluid pH Gastric Occult Blood 03/19/25 03/19/25 15:45 16:33 Lactate Procalcitonin HCG, Quant Urine Color Yellow Urine Appearance Clear Urine pH 5.5 Ur Specific [place] 1.015 Urine Protein Trace H Urine Glucose (UA) Negative Urine Ketones 1+ H Urine Occult Blood Negative Urine Nitrate Negative Urine Bilirubin Negative Urine Urobilinogen 1.0 Ur Leukocyte Esterase Negative Urine RBC 0-1/hpf Urine WBC 0-1/hpf Ur Squamous Epith Cells 0-1 /hpf Urine Bacteria None seen Ur Culture Indicated? Cult not indicated Vol Urine Centrifuged 10ml (spun) Gastric Fluid pH 2 Gastric Occult Blood Negative PFSH Medical History Left corneal abrasion Headache Polycystic ovary disease Celiac disease GERD with apnea Hypertension Bipolar disorder Surgical History H/O: hysterectomy Status post tubal ligation History of section H/O abdominoplasty H/O oophorectomy H/O gastric sleeve History of cholecystectomy History of appendectomy Social History marital status: household members: significant other and children lives independently: Yes occupational status: employed alcohol intake: never substance use type: marijuana Assessment & Plan Assessment and plan (1) Coffee ground emesis: Status: Acute (2) Anxiety: Status: Acute (3) Nausea & vomiting: Qualifiers: Vomiting type: hematemesis Qualified Code(s): K92.0 - Hematemesis Status: Acute Plan We plan an EGD. Indications, planned procedure, and inherent risks were explained to the patient. She appears to understand and agrees to proceed as outlined. Time-Based Coding :: [TOTAL MINUTES] spent with patient and on the chart (including review of chart, obtaining history, exam, reviewing outside data, placing orders, documenting exam and treatment plan, and counseling patient) on [DATE]. PROFEE Fountain Operator Document charge(s): Yes Charge Codes Subsequent inpatient/observation care: [id number]
--- NOTE | 2025-03-20 12:11 | PM.OP.1 ---
Operative Date/Time/Diagnoses Date of procedure: 03/20/25 Time of procedure: 11:36 Pre-op diagnosis: Upper GI bleed Post-op diagnosis: other (1) upper GI bleed, 2) bile reflux gastritis) Procedure & Clinicians Procedure: Esophagogastroduodenoscopy Same procedure(s) as scheduled: Yes Indications: he patient is a 44-year-old female who presents with coffee-ground emesis. The patient started vomiting yesterday evening and states she has had at least 100 episodes of vomiting. She describes coffee-ground in her emesis. She stated that there were episodes of pure bile in her vomit and that subsequently switched over the coffee-grounds. She denies any melena. She is complaining of periumbilical abdominal pain. She has had 2 admissions to the hospital since September for diverticulitis. She also has a history of coffee-ground emesis and melena. She had an EGD and colonoscopy done on October 04 of this year with no significant findings. She denies smoking marijuana but does state she will occasionally use gummies an effort to help with her nausea. There is a family member who smokes marijuana but reportedly leaves the house or smokes it in the basement. She has had multiple ED visits for intractable nausea and vomiting. Surgeon: ED* *Temp Click Yes if Unassisted: No Anesthesia Type: Sedation Operative Notes Findings: The patient had a linear erythema emanating from the pylorus. Patient had bile reflux in the body of the stomach. First and 2nd portion of duodenal were normal. There was mild erythema of the Z-line. Applied: none Estimated Blood Loss (mL): 1 Procedure in detail: After appropriate patient identification, the patient was brought into the procedure room and placed in the left lateral decubitus position. Prior to sedating the patient, a time-out was completed. After completion of sedation, the endoscope was inserted through the mouth, down the esophagus, through the stomach and the pylorus and into the duodenal. First and 2nd portion of the duodenal were within normal limits. Scope was brought back through the pylorus and into the antrum which revealed linear erythema emanating from the pylorus. Multiple biopsies were taken of the antrum using cold biopsy forceps. In the body of the stomach there was noted to be bile but no blood or coffee grounds. The patient had a previous gastric sleeve and therefore I did not retroflex the endoscope. The Z-line looked somewhat erythematous and random biopsies were taken using cold biopsy forceps. I did not see a Amanda-Noel tear. The scope was brought out through the oral cavity and the procedure was terminated. The patient was transferred to the PACU in good condition having sustained less than 1 cc blood loss. Complications: none
[2025-03-20] MEDS: HYDROMORPHONE 2 MG INJ IV ×4 (13:33→23:41)
[2025-03-20] MEDS: SUCRALFATE 1 GM/10 ML ORAL SUSP PO ×3 (13:40→23:41)
[2025-03-20] MEDS: TOPIRAMATE 25 MG TABLET 50 MG PO ×2 (13:40→21:00)
--- NOTE | 2025-03-20 15:26 | CM.DANOTE ---
Patient is a 44 yo female who was Re-admitted INPT Status on 03/19/25 for Abd Pain and bloody stool. Per MD, pt readmit for hx of chronic diverticulitisflares, presents within 30-days of her last discharge for the same concerns. She had been sent home on oral antibiotics. CT Abd/Pelvis imaging in the ED confirmed acute/chronic diverticulitis. Per MD, pt already established with GI but likely will need outpt f/u with Surgeon. Per Surgeon Consult, completed another EGD and scope showed signs of gastritis and started on new medication today for hopeful relief of symptoms. Payor: [facility] PCP: Dr. Dunbar SW met bedside with pt and explained role and she confirms she is so tired of being admitted to the hospital and is thankful for some dx from scope and new medication to try. 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 Pt preference is to d/c home when stable and does not anticipate any further needs but is requesting Excuse For Work Letter due to missing work Fri and likely tomorrow Friday. Plan: SW to follow for plan of discharge home when stable and to provide Excuse for work letter. SW to follow for any further identified discharge planning needs. GIO López Discharge Planning/Care Management CM Discharge Assessment Start: 03/19/25 17:48 Freq: Status: Active Protocol: Document 03/20/25 15:23 BF (Rec: 03/20/25 15:25 BF [id number]) Discharge Planning Assessment Assigned Discharge GIO Camilo Career Discovery Teacher DPOA/Assigned Dtr Monisha Designee Name Contact Information [phone] Advance Directives? No Advance Directives No on File History Provided By Patient,Medical Record Has Patient been Yes admitted in last 30 days? Comment twice admitted in February 2025 last month for similar and discharged home Prior Living House Arrangements Household Members significant other,children Type of Drives own vehicle transporation used prior to admit Independent with ADL Yes 's Is patient alert and Yes oriented? Caregiver for Yes: kids at home Another Comment Patient has a bath chair to help her relax in shower if she has a migraine. Barriers to No Discharge Comment Home w/ S.O. expected Discharge Plan Home Transportation Spouse can transport home at d/c Arrangement Referrals Initiated None needed Additional Comment Likely outpt f/u with Surgeon and has GI f/u in May scheduled Whiteboard Updated Yes in Patient Room with name and ext. # of Commercial Property Manager Review Status In Process Please Provide Date 03/20/25 Initial DC Assessment Was Performed Next Review Type Continued Stay Review
--- NOTE | 2025-03-20 17:10 | P.PN_ITS ---
Subjective Subjective Date Patient Seen: 03/20/25 Interval history: Chief complaint: Coffee-ground emesis and abdominal pain History of present illness: 03/19: Pleasant 44-year-old woman with a recent hospitalization for upper GI bleed where she ended up having colonoscopy and EGD without any significant findings related to the bleeding returns to the ER for the same complaint. She has been having severe vomiting black coffee-ground emesis the entire day. She denies any fever, chills, sweats. She denies any diarrhea black stools red stools. She denies any hematochezia. She is having abdominal cramping/pain which is severe. She also experienced similar pain during the last episode. She does have GI follow-up scheduled for May. Emergency room course per emergency room physician documentation: Patient was in extreme distress upon presentation. Her symptoms were controlled reasonably well with antiemetics and Dilaudid. Eventually she was in much less distress but still having some pain. Her gastroccult was positive. No stool sample was obtained in the ER. I discussed the case with our surgeon on-call who suggested possible GI consult because the patient had such a recent EGD. I spoke with the GI on-call from [facility] who refused the patient and stated that his next step would just be an EGD which could be done at our facility. I discussed this with our surgeon again and he agreed to consult on the patient here. I then discussed the case with the hospitalist on-call and he accepted the patient for admission. Hospital course: 03/20: Patient having some abdominal pain and nausea and vomiting post procedure EGD Findings on EGD: The patient had a linear erythema emanating from the pylorus. Patient had bile reflux in the body of the stomach. First and 2nd portion of duodenal were normal. There was mild erythema of the Z-line. Review of systems: No shortness a breath chest pain fever or chills Physical exam: Patient in obvious distress v No respiratory distress For objective laboratory results and imaging please see bottom of the note Assessment and plan: Severe nausea and vomiting abdominal pain with linear erythema and bile reflux seen on EGD: * PPI sucralfate * Consider treatment for H pylori * Topamax and Imitrex for abdominal migraines * Antiemetics and analgesics for pain control DVT prophylaxis: * Not indicated Code status: * Full code Time-Based Coding :: 35 minutes spent with patient and on the chart (including review of chart, obtaining history, exam, reviewing outside data, placing orders, documenting exam and treatment plan, and counseling patient) Exam Vital Signs (past 8 hours): - 03/20/25 11:01 03/20/25 11:57 03/20/25 12:01 Temperature 97.6 F 97.6 F Pulse Rate 50 L 85 55 L Respiratory Rate 16 11 L 21 Blood Pressure 140/83 147/89 H 152/96 H Pulse Oximetry 97 99 100 Oxygen Delivery Method Room Air Room Air Room Air Oxygen Flow Rate 03/20/25 12:15 03/20/25 12:45 03/20/25 13:15 Temperature 98.4 F 98.6 F 98.5 F Pulse Rate 69 48 L 57 L Respiratory Rate 20 16 17 Blood Pressure 139/84 139/79 134/88 Pulse Oximetry 99 99 99 Oxygen Delivery Method Oxygen Flow Rate 0 0 0 03/20/25 14:15 03/20/25 15:15 Temperature 98.6 F Pulse Rate 53 L 57 L Respiratory Rate 17 17 Blood Pressure 112/72 118/70 Pulse Oximetry 97 99 Oxygen Delivery Method Oxygen Flow Rate 0 0 Oxygen Delivery Method Room Air Oxygen Flow Rate 0 Objective Labs 03/19/25 09:36 03/19/25 09:36 [facility] Medical History Left corneal abrasion Headache Polycystic ovary disease Celiac disease GERD with apnea Hypertension Bipolar disorder Surgical History H/O: hysterectomy Status post tubal ligation History of section H/O abdominoplasty H/O oophorectomy H/O gastric sleeve History of cholecystectomy History of appendectomy Social History marital status: household members: significant other and children lives independently: Yes occupational status: employed alcohol intake: never substance use type: marijuana Assessment & Plan Time-Based Coding :: [TOTAL MINUTES] spent with patient and on the chart (including review of chart, obtaining history, exam, reviewing outside data, placing orders, documenting exam and treatment plan, and counseling patient) on [DATE].
[2025-03-20] MEDS: diphenhydrAMINE 25 MG TABLET PO (23:41)
[2025-03-21] MEDS: HYDROMORPHONE 2 MG INJ IV ×3 (04:38→10:58)
[2025-03-21] MEDS: SUCRALFATE 1 GM/10 ML ORAL SUSP PO ×2 (05:06→12:48)
[2025-03-21] MEDS: ONDANSETRON 4 MG/2 ML INJ IV (07:56)
[2025-03-21] MEDS: PANTOPRAZOLE 40 MG VIAL IV (08:00)
[2025-03-21] MEDS: TOPIRAMATE 25 MG TABLET 50 MG PO (08:00)
[2025-03-21 10:32] VITALS: BP 123/87; PULSE 61; RESP 15; TEMP 36.1; O2SAT 98
[2025-03-21] MEDS: CLOTRIMAZOLE 1% CRM 30 GM 1 APPLIC TOP (10:58)
--- NOTE | 2025-03-21 11:02 | P.DS_ITS ---
History of Present Illness History of Present Illness Date Patient Seen: 03/21/25 Chief complaint: Black vomit/coffee ground appearance/stomach pain Narrative: Chief complaint: Coffee-ground emesis and abdominal pain History of present illness: 03/19: Pleasant 44-year-old woman with a recent hospitalization for upper GI bleed where she ended up having colonoscopy and EGD without any significant findings related to the bleeding returns to the ER for the same complaint. She has been having severe vomiting black coffee-ground emesis the entire day. She denies any fever, chills, sweats. She denies any diarrhea black stools red stools. She denies any hematochezia. She is having abdominal cramping/pain which is severe. She also experienced similar pain during the last episode. She does have GI follow-up scheduled for May. Emergency room course per emergency room physician documentation: Patient was in extreme distress upon presentation. Her symptoms were controlled reasonably well with antiemetics and Dilaudid. Eventually she was in much less distress but still having some pain. Her gastroccult was positive. No stool sample was obtained in the ER. I discussed the case with our surgeon on-call who suggested possible GI consult because the patient had such a recent EGD. I spoke with the GI on-call from [facility] who refused the patient and stated that his next step would just be an EGD which could be done at our facility. I discussed this with our surgeon again and he agreed to consult on the patient here. I then discussed the case with the hospitalist on-call and he accepted the patient for admission. Hospital course: 03/20: Patient having some abdominal pain and nausea and vomiting post procedure EGD Findings on EGD: The patient had a linear erythema emanating from the pylorus. Patient had bile reflux in the body of the stomach. First and 2nd portion of duodenal were normal. There was mild erythema of the Z-line. Review of systems: No shortness a breath chest pain fever or chills 03/21 patient's symptoms significantly improved and discharged on empiric treatment for Helicobacter pylori oral Protonix and sucralfate with starting Topamax for abdominal migraines and Imitrex For objective laboratory results and imaging please see bottom of the note Assessment and plan: Severe nausea and vomiting abdominal pain Upper GI bleeding with coffee-ground emesis may be a Amanda-Noel tear: * Admit for IV fluids NPO and IV ppi * Consultation with General surgery for eventual EGD if needed or other procedure * Monitor hemoglobin serially * Antiemetics and analgesics for pain control DVT prophylaxis: * Not indicated Code status: * Full code Discharge Providers Provider Date of admission: 03/19/25 17:23 Discharge Date: 03/21/25 Primary care physician: Sarah Dunbar MD Discharge provider: Jose Luis Mancini MD Exam Vital Signs (past 8 hours): Oxygen Delivery Method Room Air Oxygen Flow Rate 0 Objective Labs 03/19/25 09:36 03/19/25 09:36 PFSH Medical History Left corneal abrasion Headache Polycystic ovary disease Celiac disease GERD with apnea Hypertension Bipolar disorder Surgical History H/O: hysterectomy Status post tubal ligation History of section H/O abdominoplasty H/O oophorectomy H/O gastric sleeve History of cholecystectomy History of appendectomy Social History marital status: household members: significant other and children lives independently: Yes occupational status: employed Smoking Status: Never smoker alcohol intake: never substance use type: marijuana Discharge Plan Discharge Plan Patient Disposition: Home Discharge orders & Medications Prescriptions: New sucralfate 100 mg/mL Suspension 1 gm PO Q6HR Qty: 500 0RF topiramate [Topamax] 25 mg Tablet 50 mg PO BID Qty: 90 0RF hydrocodone-acetaminophen 10-325 mg tablet 1 tab PO Q6H PRN (Reason: pain) Qty: 14 0RF amoxicillin 500 mg capsule 500 mg PO BID Qty: 30 0RF sumatriptan succinate [Imitrex] 100 mg tablet 100 mg PO Q2-4H PRN (Reason: migraine headache) Qty: 14 0RF Rx Instructions: do not exceed 2 doses per 24 hrs metronidazole 250 mg tablet 250 mg PO TID Qty: 60 0RF bismuth subsalicylate [Pepto-Bismol] 262 mg/15 mL suspension 524 mg PO QID Qty: 473 0RF ondansetron 4 mg tablet,disintegrating 4 mg PO Q6H PRN (Reason: nausea and vomiting) Qty: 30 1RF sumatriptan succinate [Imitrex STATdose Pen] 4 mg/0.5 mL pen injector 5 mg SUBCUT Q1-4H Qty: 1 0RF Continued clonazepam 0.5 mg tablet 0.5 mg PO BID Qty: 60 5RF lamotrigine 100 mg tablet 100 mg PO DAILY Qty: 90 3RF promethazine 25 mg tablet 25 mg PO Q6H PRN (Reason: nausea and vomiting) Qty: 14 3RF estradiol 0.5 mg tablet 0.5 mg PO DAILY Qty: 30 3RF Discontinued lisinopril 5 mg tablet 5 mg PO DAILY Qty: 30 3RF oxycodone 5 mg tablet 5 - 10 mg PO Q6H PRN (Reason: pain) Qty: 30 0RF metoclopramide HCl [Reglan] 5 mg Tablet 5 mg PO QAC Rx Instructions: administer 30 minutes before meals oxycodone 10 mg Tablet 10 mg PO Q4-8H PRN (Reason: Pain, Severe (7-10)) Qty: 15 0RF Follow up/Referrals: Sarah Dunbar MD [Primary Care Provider, Family Practice] Visit Report/Discharge Packet Stand Alone Forms: Patient Portal/API, Stroke Signs & Symptoms Discharge Data Primary Care Provider: Sarah Dunbar Attending Provider: Jose Luis Mancini Admit Date/Time: 03/19/25 17:23
--- NOTE | 2025-03-21 13:32 | CM.DPC ---
DCP Discharge Home Per MD, pt's symptoms resolving and better managed on new medications and medically stable to d/c home today with ongoing outpt f/u. SW met bedside with pt and she confirms she is comfortable with discharging home today and provided the Medical Excuse for Work letter and pt very appreciative and then spouse and mother arrived bedside to provide transport home today. GIO López
--- NOTE | 2025-03-21 16:11 | PC.NURSE ---
Discharge Note Patient A&O, VSS, RA, no complaints of new pain/discomfort. Discharge packet reviewed with patient, all questions/concerns addressed. PIV discontinued. Patient able to dress self and pack all belongings. Patient taken down via wheelchair to POV.
== END 2025-03-21 13:00 | disposition home or self-care (01) ==
LOC: ED 17:08 → AC 17:24
PROVIDERS: Surgery Trauma Surgery; Admitting Provider Internal Medicine; Emergency Provider Emergency Medicine; PCP Student in an Organized Health Care Education/Training Program; Referring Provider Emergency Medicine; Visit Provider Internal Medicine
PROC: 0DJ08ZZ Inspection of Upper Intestinal Tract, Via Natural or Artificial Opening Endoscopic (ICD-10-PCS; CPT 43239; principal; 2025-03-20 11:15)
DX: R11.2 Nausea with vomiting, unspecified (principal); R10.33 Periumbilical pain; Z98.84 Bariatric surgery status; K29.61 Other gastritis with bleeding
CPT/HCPCS: 43239; 74177; 80053; 81001; 82271; 83605; 83690; 83986; 84145; 84702; 85025; 96361; 96374; 96375; 96376; 99284; G0378; J1171; J1790; J2405; J2470; J2704; J3360; Q9967

== ENCOUNTER 2025-03-28 14:16 | Emergency (ER) | payer OTHER, SELFPAY ==
[2025-03-22 07:44] VITALS: BMI 32.4
[2025-03-28 14:26] VITALS: BP 176/96; PULSE 78; RESP 20; TEMP 36.8; O2SAT 100; BMI 31.4
--- NOTE | 2025-03-28 14:58 | ED_ITS ---
HPI - Abdominal Pain <Zhen Rosa MD - Last Filed: 03/28/25 18:22> General Chief Complaint: Abdominal Pain Stated Complaint: abd pain N/V pcp sent Time Seen by Provider: 03/28/25 14:44 Source: patient Mode of arrival: Ambulatory History of Present Illness HPI narrative: 44-year-old woman with a recent hospitalization for upper GI bleed where she ended up having colonoscopy and EGD without any significant findings related to the bleeding returns to the ER for continual nausea and vomiting. She does have a history of a gastric sleeve procedure and was told that she may need a bypass revision. She feels like she has thrown up some bile. She is a frequent ED visitor for nausea and vomiting. She also has some mid abdominal discomfort but denies any blood in his stool or any symptoms.. Related Data Home Medications ?Medication ?Instructions ?Recorded ?Confirmed butenafine 1 % topical cream 1 applic topical TID Rash on back 03/22/25 03/28/25 (Lotrimin Ultra) diphenhydramine HCl 25 mg tablet 25 mg PO DAILY PRN ra sh 03/22/25 03/28/25 (Benadryl Allergy) Previous Rx's ?Medication ?Instructions ?Recorded estradiol 0.5 mg tablet 0.5 mg PO DAILY #30 tabs 04/01 clonazepam 0.5 mg tablet 0.5 mg PO BID #60 tabs 03/18 lamotrigine 100 mg tablet 100 mg PO DAILY #90 tabs 08/02 promethazine 25 mg tablet 25 mg PO Q6H PRN nausea and 03/18/25 vomiting #14 tabs amoxicillin 500 mg capsule 500 mg PO BID #30 caps 03/08 12/31 bismuth subsalicylate 262 mg/15 mL 524 mg (30 mL) PO Q ID #473 mL 03/21/25 oral suspension (Pepto-Bismol) metronidazole 250 mg tablet 250 mg PO TID #60 tabs ondansetron 4 mg disintegrating 4 mg PO Q6H PRN nausea and 03/21/25 tablet vomiting #30 tabs pantoprazole 40 mg tablet,delayed 40 mg PO DAILY #60 t abs 03/21/25 release (Protonix) sumatriptan succinate 100 mg 100 mg PO Q2-4H PRN migra ine 03/21/25 tablet (Imitrex) headache 2 doses #14 tabs topiramate 25 mg tablet (Topamax) 50 mg (2 x 25 mg) PO BID #90 tabs 03/21/25 hydrocodone 10 mg-acetaminophen 1 tab PO Q6H PRN pain #14 tabs 03/22/25 325 mg tablet oxycodone 5 mg tablet 5 mg PO Q6H PRN pain #20 tab s 03/25/25 ciprofloxacin HCl 750 mg tablet 750 mg PO Q12H 10 days #20 tabs 03/28/25 metronidazole 500 mg tablet 500 mg PO BID 10 days #20 tabs 03/28/25 oxycodone-acetaminophen 5 mg-325 1 tab PO Q8H PRN pain 3 days #9 03/28/25 mg tablet (Percocet) tabs Allergies Allergy/AdvReac Type Severity Reaction Status Date / Time vancomycin Allergy Intermediate ITCHING Verified 03/28/25 14:30 gluten Allergy Celiac Verified 03/28/25 14:30 NSAIDS (Non-Steroidal AdvReac Mild Gastrointestinal Verified 03/28/25 14:30 Anti-Inflamma Upset benzonatate (From Tessalon AdvReac Unknown Hives Verified 03/28/25 14:30 Perles) escitalopram (From Lexapro) AdvReac Unknown Hallucinati Verified 03/28/25 14:30 ng Review of Systems <Zhen Rosa MD - Last Filed: 03/28/25 18:22> Review of Systems ROS Unobtainable: All systems reviewed & are unremarkable except as noted in HPI and below Patient History <Zhen Rosa MD - Last Filed: 03/28/25 18:22> Medical History Left corneal abrasion Headache Polycystic ovary disease Celiac disease GERD with apnea Hypertension Bipolar disorder Surgical History H/O: hysterectomy Status post tubal ligation History of section H/O abdominoplasty H/O oophorectomy H/O gastric sleeve History of cholecystectomy History of appendectomy Social History marital status: household members: significant other and children lives independently: Yes occupational status: employed alcohol intake: never substance use type: marijuana alcohol intake frequency: holidays/special occasions only Exam <Zhen Rosa MD - Last Filed: 03/28/25 18:22> Narrative Exam Narrative: General: Patient appears to be in no acute distress, acting appropriately Head: normocephalic, atraumatic, HEENT: Pupils equal round reactive, eyes tracking well, neck supple, no JVD Heart: regular rate and rhythm, no murmurs, rubs, or gallops heard Lungs: clear to auscultation, no adventitious sounds Abdomen: soft , mildly tender to palpation in mid abdominal area, nondistended, positive bowel sounds Neurological: no focal neurological signs, moving all extremities well, alert and oriented x3, Psych: good judgment ,good insight, mood is normal. Initial Vital Signs Initial Vital Signs: Vital Signs Temperature 98.2 F 03/28/25 14:26 Pulse Rate 78 03/28/25 14:26 Respiratory Rate 20 03/28/25 14:26 Blood Pressure 176/96 H 03/28/25 14:26 Pulse Oximetry 100 03/28/25 14:26 Oxygen Delivery Method Room Air 03/28/25 14:26 <Wiliam Zimmer DO - Last Filed: 03/28/25 18:28> Initial Vital Signs Initial Vital Signs: Vital Signs Temperature 98.2 F 03/28/25 14:26 Pulse Rate 78 03/28/25 14:26 Respiratory Rate 20 03/28/25 14:26 Blood Pressure 176/96 H 03/28/25 14:26 Pulse Oximetry 100 03/28/25 14:26 Oxygen Delivery Method Room Air 03/28/25 14:26 Course <Zhen Rosa MD - Last Filed: 03/28/25 18:22> Course Course Narrative: We will treat the patient for her nausea and vomiting with some Inapsine, Valium, and Dilaudid for abdominal pain. Also will get a CT abdomen and pelvis for abdominal issues. Orders Ordered: ED Orders 03/28/25 15:00 Complete Blood Count AUTO DIFF Stat Comprehensive Metabolic Panel Stat Lipase Stat 03/28/25 17:35 CT abdomen pelvis w con Stat Discontinued Medications Ciprofloxacin (Ciprofloxacin 250 Mg Tablet) 750 mg PO NOW ONE Stop: 03/28/25 18:11 Diazepam (Diazepam 10 Mg/2 Ml Syringe) 5 mg IV NOW ONE Stop: 03/28/25 15:11 Last Admin: 03/28/25 15:15 Dose: 5 mg Documented By: Droperidol (Droperidol 2.5 Mg/Ml Vial) 1.25 mg IV NOW ONE Stop: 03/28/25 15:10 Last Admin: 03/28/25 15:15 Dose: 1.25 mg Documented By: Droperidol (Droperidol 2.5 Mg/Ml Vial) 1.25 mg IV NOW ONE Stop: 03/28/25 17:37 Last Admin: 03/28/25 17:55 Dose: 1.25 mg Documented By: Hydromorphone HCl (Hydromorphone 1 Mg Inj) 1 mg IV NOW ONE Stop: 03/28/25 16:01 Last Admin: 03/28/25 16:03 Dose: 1 mg Documented By: Hydromorphone HCl (Hydromorphone 1 Mg Inj) 1 mg IV NOW ONE Stop: 03/28/25 17:37 Last Admin: 03/28/25 17:55 Dose: 1 mg Documented By: Sodium Chloride (Normal Saline 0.9%) 1,000 mls @ 1,000 mls/hr IV BOLUS ONE Stop: 03/28/25 16:07 Last Admin: 03/28/25 15:15 Dose: 1,000 mls/hr Documented By: Metronidazole (Metronidazole 500 Mg Tablet) 500 mg PO NOW ONE Stop: 03/28/25 18:11 Reevaluation(s) Reevaluation #1: Upon re-evaluation, patient is still having some nausea and vomiting. Awaiting CT abdomen and pelvis. We will try another dose of Dilaudid and droperidol. Time: 18:20 Consultations Consultation #1: Patient is signed out to next physician on Dr. Christiansen . Vital Signs Vital signs: Vital Signs - 8 hr 03/28/25 14:26 03/28/25 15:08 03/28/25 16:30 Temperature 98.2 F Pulse Rate 78 66 87 Respiratory Rate 20 18 19 Blood Pressure 176/96 H 135/78 145/78 H Pulse Oximetry 100 98 98 Oxygen Delivery Method Room Air Room Air Room Air <Wiliam Zimmer DO - Last Filed: 03/28/25 18:28> Orders Ordered: ED Orders 03/28/25 15:00 Complete Blood Count AUTO DIFF Stat Comprehensive Metabolic Panel Stat Lipase Stat 03/28/25 17:35 CT abdomen pelvis w con Stat Discontinued Medications Ciprofloxacin (Ciprofloxacin 250 Mg Tablet) 750 mg PO NOW ONE Stop: 03/28/25 18:11 Diazepam (Diazepam 10 Mg/2 Ml Syringe) 5 mg IV NOW ONE Stop: 03/28/25 15:11 Last Admin: 03/28/25 15:15 Dose: 5 mg Documented By: Droperidol (Droperidol 2.5 Mg/Ml Vial) 1.25 mg IV NOW ONE Stop: 03/28/25 15:10 Last Admin: 03/28/25 15:15 Dose: 1.25 mg Documented By: Droperidol (Droperidol 2.5 Mg/Ml Vial) 1.25 mg IV NOW ONE Stop: 03/28/25 17:37 Last Admin: 03/28/25 17:55 Dose: 1.25 mg Documented By: Hydromorphone HCl (Hydromorphone 1 Mg Inj) 1 mg IV NOW ONE Stop: 03/28/25 16:01 Last Admin: 03/28/25 16:03 Dose: 1 mg Documented By: Hydromorphone HCl (Hydromorphone 1 Mg Inj) 1 mg IV NOW ONE Stop: 03/28/25 17:37 Last Admin: 03/28/25 17:55 Dose: 1 mg Documented By: Sodium Chloride (Normal Saline 0.9%) 1,000 mls @ 1,000 mls/hr IV BOLUS ONE Stop: 03/28/25 16:07 Last Admin: 03/28/25 15:15 Dose: 1,000 mls/hr Documented By: Metronidazole (Metronidazole 500 Mg Tablet) 500 mg PO NOW ONE Stop: 03/28/25 18:11 Vital Signs Vital signs: Vital Signs - 8 hr 03/28/25 14:26 03/28/25 15:08 03/28/25 16:30 Temperature 98.2 F Pulse Rate 78 66 87 Respiratory Rate 20 18 19 Blood Pressure 176/96 H 135/78 145/78 H Pulse Oximetry 100 98 98 Oxygen Delivery Method Room Air Room Air Room Air MDM - Abdominal Pain <Zhen Rosa MD - Last Filed: 03/28/25 18:22> Lab Data 03/28/25 15:00 03/28/25 15:00 Labs: Lab Results 03/28/25 Range/Units 15:00 WBC 11.3 H (4.5-11.0) X10^3/uL RBC 4.41 (4.0-5.2) X10^6/uL Hgb 11.6 L (12.0-16.0) g/dL Hct 34.8 L (36-46) % MCV 78.8 L (80-100) fL MCH 26.2 (26-34) PG MCHC 33.3 (30-36) % RDW 17.2 H (11.6-14.8) % Plt Count 327 (150-400) X10^3/uL Neut % (Auto) 71.1 (50-75) % Lymph % (Auto) 19.8 L (25-40) % [place] % (Auto) 7.9 (3-14) % Eos % (Auto) 0.4 L (2-4) % Baso % (Auto) 0.8 (0-2) % Neut # (Auto) 8000 H (9648-0831) /uL Lymph # (Auto) 2200 (1874-7785) /uL [place] # (Auto) 900 (0-900) /uL Eos # (Auto) 0 (0-450) /uL Baso # (Auto) 100 (0-100) /uL Sodium 140 (137-145) mmol/L Potassium 3.4 (3.4-5.1) mmol/L Chloride 106 (98-107) mmol/L Carbon Dioxide 21 L (22-32) mmol/L BUN 5 L (7-17) mg/dL Creatinine 0.51 L (0.52-1.04) mg/dL Estimated GFR > 60 (>60) mL/min BUN/Creatinine Ratio 9.8 (6-22) Glucose 127 H (70-99) mg/dL Calcium 9.7 (8.4-10.2) mg/dL Total Bilirubin 1.1 (0.2-1.3) mg/dL AST 26 (14-36) IU/L ALT 24 (<35) IU/L Alkaline Phosphatase 69 (38-126) U/L Total Protein 7.6 (6.3-8.2) g/dL Albumin 4.8 (3.5-5.0) g/dL Globulin 2.8 (1.7-4.1) g/dL Albumin/Globulin Ratio 1.7 (1.0-2.8) Lipase 68 (23-300) U/L <Wiliam Zimmer, DO - Last Filed: 03/28/25 18:28> Lab Data Labs: Lab Results 03/28/25 Range/Units 15:00 WBC 11.3 H (4.5-11.0) X10^3/uL RBC 4.41 (4.0-5.2) X10^6/uL Hgb 11.6 L (12.0-16.0) g/dL Hct 34.8 L (36-46) % MCV 78.8 L (80-100) fL MCH 26.2 (26-34) PG MCHC 33.3 (30-36) % RDW 17.2 H (11.6-14.8) % Plt Count 327 (150-400) X10^3/uL Neut % (Auto) 71.1 (50-75) % Lymph % (Auto) 19.8 L (25-40) % [place] % (Auto) 7.9 (3-14) % Eos % (Auto) 0.4 L (2-4) % Baso % (Auto) 0.8 (0-2) % Neut # (Auto) 8000 H (2552-8911) /uL Lymph # (Auto) 2200 (7800-2316) /uL [place] # (Auto) 900 (0-900) /uL Eos # (Auto) 0 (0-450) /uL Baso # (Auto) 100 (0-100) /uL Sodium 140 (137-145) mmol/L Potassium 3.4 (3.4-5.1) mmol/L Chloride 106 (98-107) mmol/L Carbon Dioxide 21 L (22-32) mmol/L BUN 5 L (7-17) mg/dL Creatinine 0.51 L (0.52-1.04) mg/dL Estimated GFR > 60 (>60) mL/min BUN/Creatinine Ratio 9.8 (6-22) Glucose 127 H (70-99) mg/dL Calcium 9.7 (8.4-10.2) mg/dL Total Bilirubin 1.1 (0.2-1.3) mg/dL AST 26 (14-36) IU/L ALT 24 (<35) IU/L Alkaline Phosphatase 69 (38-126) U/L Total Protein 7.6 (6.3-8.2) g/dL Albumin 4.8 (3.5-5.0) g/dL Globulin 2.8 (1.7-4.1) g/dL Albumin/Globulin Ratio 1.7 (1.0-2.8) Lipase 68 (23-300) U/L Imaging Data CT scan - abdomen/pelvis: Radiologist's Impression: [address] [address] [address] Scan Report Signed Patient: Janet Escobar MR#: [id number] : 1980 Acct:[id number] Age/Sex: 44 / F Date of Service: 03/28/25 Loc: ED Accession Number: [id number] Procedure: CT abdomen pelvis w con Ordering Provider: Zhen Rosa MD PROCEDURE: CT ABDOMEN PELVIS W CON INDICATIONS: abdominal pain TECHNIQUE: After the administration of intravenous contrast, axial sections acquired from the lung bases to the pubic symphysis. Coronal and sagittal reformats were performed. For radiation dose reduction, the following was used: automated exposure control, adjustment of mA and/or kV according to patient size. COMPARISON: [facility], CT, CT ABDOMEN PELVIS W CON, 03/19/2025, 10:19. Numerous recent CTs. FINDINGS: Image quality: Diagnostic Lower chest: Unremarkable lung bases. Mild nonspecific wall thickening at the gastroesophageal junction Liver: Possible steatosis. Gallbladder and biliary system: Cholecystectomy clips, prominent biliary system, likely related to postsurgical state Pancreas: No ductal dilation Spleen: Cystic lesion at the upper pole with peripheral calcifications again seen. Adrenals: No discrete nodules Kidneys: No solid renal mass. No hydronephrosis. Vessels and lymph nodes: The main portal vein is patent. No abdominal aortic aneurysm. No enlarged lymph nodes by size criteria. Bowel and peritoneum: Gastric postsurgical changes. Mild wall thickening in the distal and proximal stomach. No small bowel obstruction. Focal wall thickening of the sigmoid, increased from prior. Colonic diverticula are present focally ectatic loop of bowel is seen in the right pelvis. This is adjacent to suture lines. No drainable ascites. Body wall: Postsurgical changes in the anterior body wall as before Pelvis: Under distended urinary bladder. The uterus is not seen Bones: No aggressive appearing osseous abnormality. There are degenerative osseous changes. IMPRESSION: Increased wall thickening and mild inflammation of the sigmoid colon. There are numerous diverticula. Findings likely represent diverticulitis versus focal colitis. If not recently obtained, colonoscopy correlation is suggested. No small bowel obstruction. Focally ectatic loop of bowel is seen adjacent to the suture lines in the right pelvis. Differential includes hydrosalpinx, consider pelvic ultrasound if there is clinical concern in this region. No small bowel obstruction. Other findings above MDM Narrative Medical decision making narrative: 1800: Patient was signed out to me by Dr. Rosa, patient has a history recurrent abdominal pain to, diverticulitis coming in for nausea and vomiting abdominal pain, patient had improved symptoms after administration of medication here disposition pending CT scan and re-evaluation 1824: Patient was re-evaluated significant improvement after administration medication, CT scan did show signs of colitis versus diverticulitis, informed her that we will be treating her for diverticulitis, patient was given 1st dose of antibiotics here we will be sent home with antibiotics and pain medication, she verbalized understanding of this and states that she does have an appointment with her GI doctor in June. She agrees to being discharged home with outpatient follow up strict return precautions given agrees to being discharged home with outpatient follow up Discharge Plan Departure Patient Disposition: Home Clinical Impression: Diverticulitis Activity Restrictions/Additional Instructions: Please follow up with your GI doctor for your scheduled appointment Please follow up with your primary care doctor as needed Please read the discharge instructions sheet carefully and bring all papers to all doctor follow-up visits, as it may contain information that your doctor may want to see. Disease processes change and evolve, if your symptoms worsen or if you develop any new symptoms that are concerning to you please return for evaluation. Your evaluation today does not show any evidence of any life- threatening/serious illnesses requiring admission to the hospital or surgery. Please follow-up with your doctor for re-evaluation in approximately 1 day. Seek immediate medical attention for any worrisome symptoms. *If you do not have a primary care provider please contact the [facility] Resource line at [phone]. They will ask some questions about your medical history and help get you set up with a doctor in the community. Prescriptions: New metronidazole 500 mg tablet 500 mg PO BID 10 Days Qty: 20 0RF ciprofloxacin HCl 750 mg tablet 750 mg PO Q12H 10 Days Qty: 20 0RF oxycodone-acetaminophen [Percocet] 5-325 mg tablet 1 tab PO Q8H PRN (Reason: pain) 3 Days Qty: 9 0RF No Action clonazepam 0.5 mg tablet 0.5 mg PO BID Qty: 60 5RF lamotrigine 100 mg tablet 100 mg PO DAILY Qty: 90 3RF promethazine 25 mg tablet 25 mg PO Q6H PRN (Reason: nausea and vomiting) Qty: 14 3RF estradiol 0.5 mg tablet 0.5 mg PO DAILY Qty: 30 3RF hydrocodone-acetaminophen 10-325 mg tablet 1 tab PO Q6H PRN (Reason: pain) Qty: 14 0RF oxycodone 5 mg tablet 5 mg PO Q6H PRN (Reason: pain) Qty: 20 0RF diphenhydramine HCl [Benadryl Allergy] 25 mg tablet 25 mg PO DAILY PRN (Reason: rash) Patient Comments: Pt reports itchy rash on spine. butenafine [Lotrimin Ultra] 1 % cream 1 applic topical TID topiramate [Topamax] 25 mg Tablet 50 mg PO BID Qty: 90 0RF amoxicillin 500 mg capsule 500 mg PO BID Qty: 30 0RF sumatriptan succinate [Imitrex] 100 mg tablet 100 mg PO Q2-4H PRN (Reason: migraine headache) Qty: 14 0RF Rx Instructions: do not exceed 2 doses per 24 hrs metronidazole 250 mg tablet 250 mg PO TID Qty: 60 0RF bismuth subsalicylate [Pepto-Bismol] 262 mg/15 mL suspension 524 mg PO QID Qty: 473 0RF ondansetron 4 mg tablet,disintegrating 4 mg PO Q6H PRN (Reason: nausea and vomiting) Qty: 30 1RF pantoprazole [Protonix] 40 mg tablet,delayed release (DR/EC) 40 mg PO DAILY Qty: 60 1RF Referrals: Sarah Dunbar MD [Primary Care Provider, Family Practice] Stand Alone Forms: Patient Portal/API
[2025-03-28 15:08] VITALS: BP 135/78; PULSE 66; RESP 18; O2SAT 98
--- NOTE | 2025-03-28 15:08 | PC.NURSE ---
Pt wretching, vomiting, and crying. Reports that she has increased nausea over the last couple of days
[2025-03-28] MEDS: droPERidol 2.5 MG/ML VIAL 1.25 MG IV ×2 (15:15→17:55)
[2025-03-28] MEDS: SODIUM CHLORIDE 0.9% 1,000 ML 1000 ML IV (15:15)
[2025-03-28 15:16] LABS: Add Manual Diff / Slide Review NO; Hematocrit 34.8 % (36-46); Hemoglobin 11.6 g/dL (12.0-16.0); Lymphocytes Absolute Auto 2200 /uL (1100-4500); Mean Corpuscular HGB Conc 33.3 % (30-36); Mean Corpuscular Hemoglobin 26.2 PG (26-34); Mean Corpuscular Volume 78.8 fL (80-100); Platelet Count 327 X10^3/uL (150-400)
[2025-03-28 15:28] LABS: Alanine Aminotransferase 24 IU/L (<35); Albumin 4.8 g/dL (3.5-5.0); Albumin Globulin Ratio 1.7 (1.0-2.8); Alkaline Phosphatase 69 U/L (38-126); Blood Urea Nitrogen 5 mg/dL (7-17); Calcium 9.7 mg/dL (8.4-10.2); Carbon Dioxide 21 mmol/L (22-32); Chloride 106 mmol/L (98-107); Estimated Glomerular Filt Rate > 60 mL/min (>60); Globulin 2.8 g/dL (1.7-4.1); Glucose 127 mg/dL (70-99); HEMOLYSIS < 15 (0-50); Lipase 68 U/L (23-300); Potassium 3.4 mmol/L (3.4-5.1); Sodium 140 mmol/L (137-145); Total Protein 7.6 g/dL (6.3-8.2)
--- NOTE | 2025-03-28 15:51 | PC.NURSE ---
Pt continues to have pain and nauea. Dr Rosa notified.
[2025-03-28] MEDS: HYDROMORPHONE 1 MG INJ IV ×2 (16:03→17:55)
[2025-03-28 16:30] VITALS: BP 145/78; PULSE 87; RESP 19; O2SAT 98
--- NOTE | 2025-03-28 17:16 | PC.NURSE ---
Pt continues to remain painful and nauseated. MD notifed.
--- NOTE | 2025-03-28 17:35 | DI.CT.S_ITS ---
PROCEDURE: CT ABDOMEN PELVIS W CON INDICATIONS: abdominal pain TECHNIQUE: After the administration of intravenous contrast, axial sections acquired from the lung bases to the pubic symphysis. Coronal and sagittal reformats were performed. For radiation dose reduction, the following was used: automated exposure control, adjustment of mA and/or kV according to patient size. COMPARISON: [facility], CT, CT ABDOMEN PELVIS W CON, 03/19/2025, 10:19. Numerous recent CTs. FINDINGS: Image quality: Diagnostic Lower chest: Unremarkable lung bases. Mild nonspecific wall thickening at the gastroesophageal junction Liver: Possible steatosis. Gallbladder and biliary system: Cholecystectomy clips, prominent biliary system, likely related to postsurgical state Pancreas: No ductal dilation Spleen: Cystic lesion at the upper pole with peripheral calcifications again seen. Adrenals: No discrete nodules Kidneys: No solid renal mass. No hydronephrosis. Vessels and lymph nodes: The main portal vein is patent. No abdominal aortic aneurysm. No enlarged lymph nodes by size criteria. Bowel and peritoneum: Gastric postsurgical changes. Mild wall thickening in the distal and proximal stomach. No small bowel obstruction. Focal wall thickening of the sigmoid, increased from prior. Colonic diverticula are present focally ectatic loop of bowel is seen in the right pelvis. This is adjacent to suture lines. No drainable ascites. Body wall: Postsurgical changes in the anterior body wall as before Pelvis: Under distended urinary bladder. The uterus is not seen Bones: No aggressive appearing osseous abnormality. There are degenerative osseous changes. IMPRESSION: Increased wall thickening and mild inflammation of the sigmoid colon. There are numerous diverticula. Findings likely represent diverticulitis versus focal colitis. If not recently obtained, colonoscopy correlation is suggested. No small bowel obstruction. Focally ectatic loop of bowel is seen adjacent to the suture lines in the right pelvis. Differential includes hydrosalpinx, consider pelvic ultrasound if there is clinical concern in this region. No small bowel obstruction. Other findings above Dictated by: Kartik Morrison M.D. on 03/28/2025 at 17:56 Approved by: Kartik Morrison M.D. on 03/28/2025 at 18:03
--- NOTE | 2025-03-28 18:10 | PC.NURSE ---
Pt reports that she is already taking A,pxocillian and Metronidazole. MD notified of medications. ok for pt to take Cipro only and continue to take Flagyl at home. instructed pt to discontinue Amoxicillin.
[2025-03-28] MEDS: CIPROFLOXACIN 250 MG TABLET 750 MG PO (18:30)
--- NOTE | 2025-03-28 18:35 | PC.NURSE ---
Pt BP 208/87. Partner of pt at bedside raising voice at this RN and states You're not going to discharge her with that BP. BP retaken found to be 180/84. Dr Montenegro notified. ok to discharge pt and instructed to take Lisinopril. Discussed this plan with pt. Pt had not taken BP meds in two days. Pt had been vomiting for two days and had not been able to take PO meds.
== END 2025-03-28 18:35 | disposition home or self-care (01) ==
PROVIDERS: Family Medicine; Emergency Provider Student in an Organized Health Care Education/Training Program; PCP Student in an Organized Health Care Education/Training Program
DX: K57.92 Diverticulitis of intestine, part unspecified, without perforation or abscess without bleeding (principal); R10.9 Unspecified abdominal pain; R11.2 Nausea with vomiting, unspecified; Z98.84 Bariatric surgery status
CPT/HCPCS: 36415; 74177; 80053; 83690; 85025; 96361; 96374; 96375; 96376; 99284; J1171; J1790; J3360

== ENCOUNTER 2025-04-06 17:46 | Emergency (ER) | payer OTHER, SELFPAY ==
[2025-03-22 07:44] VITALS: BMI 32.4
[2025-04-06 17:52] VITALS: BP 136/82; PULSE 111; RESP 18; TEMP 36.9; O2SAT 97; BMI 31.4
[2025-04-06 18:28] LABS: Add Manual Diff / Slide Review NO; Hematocrit 36.6 % (36-46); Hemoglobin 12.1 g/dL (12.0-16.0); Lymphocytes Absolute Auto 3000 /uL (1100-4500); Mean Corpuscular HGB Conc 33.1 % (30-36); Mean Corpuscular Hemoglobin 26.4 PG (26-34); Mean Corpuscular Volume 79.7 fL (80-100); Platelet Count 362 X10^3/uL (150-400)
[2025-04-06 18:38] LABS: Alanine Aminotransferase 24 IU/L (<35); Albumin 5.1 g/dL (3.5-5.0); Albumin Globulin Ratio 1.6 (1.0-2.8); Alkaline Phosphatase 62 U/L (38-126); Blood Urea Nitrogen 13 mg/dL (7-17); Calcium 9.9 mg/dL (8.4-10.2); Carbon Dioxide 23 mmol/L (22-32); Chloride 104 mmol/L (98-107); Estimated Glomerular Filt Rate > 60 mL/min (>60); Globulin 3.2 g/dL (1.7-4.1); Glucose 116 mg/dL (70-99); HEMOLYSIS < 15 (0-50); Lipase 74 U/L (23-300); Potassium 3.4 mmol/L (3.4-5.1); Sodium 141 mmol/L (137-145); Total Protein 8.3 g/dL (6.3-8.2)
[2025-04-06] MEDS: ONDANSETRON 4 MG/2 ML INJ IV ×2 (18:41→23:49)
--- NOTE | 2025-04-06 22:00 | ED.ABDPAIN ---
HPI - Abdominal Pain General Chief Complaint: Abdominal Pain Stated Complaint: abd pain and vomiting- here yesterday Time Seen by Provider: 04/06/25 18:39 Source: patient Mode of arrival: Ambulatory History of Present Illness HPI narrative: 44-year-old history of gastric sleeve presents with multiple episodes thus far with abdominal pain nausea vomiting has seen the bariatric surgeon already and will need revision surgery for which he has an appointment tomorrow morning with a telehealth visit. She is waiting also for the insurance to approve of the surgery. Despite having all the antiemetics and pain medicines at home she is still symptomatic at this point and feeling dehydrated still nauseous and told by the bariatric surgeon to come to the ER again. In fact she was seen here yesterday again with a CAT scan and full workup completed and discharged on Augmentin. Other than what is stated 14 point review of system is negative. Related Data Home Medications ?Medication ?Instructions ?Recorded ?Confirmed butenafine 1 % topical cream 1 applic topical TID Rash on back 03/22/25 03/28/25 (Lotrimin Ultra) diphenhydramine HCl 25 mg tablet 25 mg PO DAILY PRN rash 03/22/25 03/28/25 (Benadryl Allergy) Previous Rx's ?Medication ?Instructions ?Recorded clonazepam 0.5 mg tablet 0.5 mg PO BID #60 tabs 03/18/25 lamotrigine 100 mg tablet 100 mg PO DAILY #90 tabs 03/18/25 promethazine 25 mg tablet 25 mg PO Q6H PRN nausea and 03/18/25 vomiting #14 tabs amoxicillin 500 mg capsule 500 mg PO BID #30 caps 03/21/25 bismuth subsalicylate 262 mg/15 mL 524 mg (30 mL) PO QID #473 mL 03/21/25 oral suspension (Pepto-Bismol) metronidazole 250 mg tablet 250 mg PO TID #60 tabs 03/21/25 ondansetron 4 mg disintegrating 4 mg PO Q6H PRN nausea and 03/21/25 tablet vomiting #30 tabs pantoprazole 40 mg tablet,delayed 40 mg PO DAILY #60 tabs 03/21/25 release (Protonix) topiramate 25 mg tablet (Topamax) 50 mg (2 x 25 mg) PO BID #90 tabs 03/21/25 ciprofloxacin HCl 750 mg tablet 750 mg PO Q12H 10 days #20 tabs 03/28/25 metronidazole 500 mg tablet 500 mg PO BID 10 days #20 tabs 03/28/25 oxycodone-acetaminophen 5 mg-325 1 tab PO BID PRN pain #60 tabs 03/31/25 mg tablet amoxicillin 500 mg-potassium 1 tab PO TID 7 days #21 tabs 04/05/25 clavulanate 125 mg tablet (Augmentin) hydrocodone 5 mg-acetaminophen 325 1 tab PO Q6H PRN pain 3 days #10 04/05/25 mg tablet tabs sumatriptan succinate 6 mg/0.5 mL 6 mg (0.5 mL) SUBCUT ONCE #1 mL 04/05/25 subcutaneous pen injector Allergies Allergy/AdvReac Type Severity Reaction Status Date / Time vancomycin Allergy Intermediate ITCHING Verified 04/06/25 17:53 gluten Allergy Celiac Verified 04/06/25 17:53 NSAIDS (Non-Steroidal AdvReac Mild Gastrointestinal Verified 04/06/25 17:53 Anti-Inflamma Upset benzonatate (From Tessalon AdvReac Unknown Hives Verified 04/06/25 17:53 Perles) escitalopram (From Lexapro) AdvReac Unknown Hallucinati Verified 04/06/25 17:53 ng Review of Systems Review of Systems ROS Unobtainable: All systems reviewed & are unremarkable except as noted in HPI and below Patient History Medical History Left corneal abrasion Headache Polycystic ovary disease Celiac disease GERD with apnea Hypertension Bipolar disorder Surgical History H/O: hysterectomy Status post tubal ligation History of section H/O abdominoplasty H/O oophorectomy H/O gastric sleeve History of cholecystectomy History of appendectomy Social History marital status: household members: significant other and children lives independently: Yes occupational status: employed alcohol intake: never substance use type: marijuana alcohol intake frequency: holidays/special occasions only Exam Narrative Exam Narrative: GENERAL: [44] year old patient appears stated age. Well-developed patient, in mild distress. HEAD: Atraumatic. Normocephalic. EYES: Pupils equal round and reactive. Extraocular motions intact. No scleral icterus. No injection or drainage. NECK: Trachea midline. Non tender CARDIOVASCULAR: Regular rate and rhythm without murmurs, gallops, or rubs. RESPIRATORY: Clear to auscultation. Breath sounds equal bilaterally. No wheezes, rales, or rhonchi. GASTROINTESTINAL: Abdomen soft, non-tender, nondistended. EXTREMITIES: No edema or joint tenderness. BACK: Nontender without deformity or crepitance. No flank tenderness. NEURO: AOx3. SKIN: No rash or erythema of visible areas Initial Vital Signs Initial Vital Signs: Vital Signs Temperature 98.4 F 04/06/25 17:52 Pulse Rate 111 H 04/06/25 17:52 Respiratory Rate 18 04/06/25 17:52 Blood Pressure 136/82 04/06/25 17:52 Pulse Oximetry 97 04/06/25 17:52 Oxygen Delivery Method Room Air 04/06/25 17:52 Course Orders Ordered: ED Orders 04/06/25 18:19 Complete Blood Count AUTO DIFF Stat Comprehensive Metabolic Panel Stat Lipase Stat Lactated Ringer's (Lactated Ringers) 1,000 mls @ 1,000 mls/hr IV BOLUS ONE Stop: 04/07/25 00:31 Last Admin: 04/06/25 23:49 Dose: 1,000 mls/hr Documented By: JAN Ondansetron HCl (Ondansetron 4 Mg/2 Ml Inj) 4 mg IV NOW PRN PRN Reason: Nausea And Vomiting Last Admin: 04/06/25 18:41 Dose: 4 mg Documented By: ROSIBEL Ondansetron HCl (Ondansetron 4 Mg Odt) 4 mg PO NOW PRN PRN Reason: Nausea And Vomiting Discontinued Medications Diphenhydramine HCl (Diphenhydramine 50 Mg/Ml Vial) 50 mg IV NOW ONE Stop: 04/06/25 22:15 Last Admin: 04/06/25 22:20 Dose: 50 mg Documented By: JAN Droperidol (Droperidol 2.5 Mg/Ml Vial) 2.5 mg IV NOW ONE Stop: 04/06/25 22:15 Last Admin: 04/06/25 22:21 Dose: 2.5 mg Documented By: JAN Lactated Ringer's (Lactated Ringers) 1,000 mls @ 1,000 mls/hr IV BOLUS ONE Stop: 04/06/25 23:13 Last Infusion: 04/06/25 23:49 Dose: Infused Documented By: Admin: 04/06/25 22:22 Dose: 1,000 mls/hr Documented By: JAN Ondansetron HCl (Ondansetron 4 Mg/2 Ml Inj) 4 mg IV NOW ONE Stop: 04/06/25 23:34 Last Admin: 04/06/25 23:49 Dose: 4 mg Documented By: JAN Vital Signs Vital signs: Vital Signs - 8 hr 04/06/25 17:52 Temperature 98.4 F Pulse Rate 111 H Respiratory Rate 18 Blood Pressure 136/82 Pulse Oximetry 97 Oxygen Delivery Method Room Air MDM - Abdominal Pain Lab Data 04/06/25 18:19 04/06/25 18:19 Labs: Lab Results 04/06/25 Range/Units 18:19 WBC 9.5 (4.5-11.0) X10^3/uL RBC 4.59 (4.0-5.2) X10^6/uL Hgb 12.1 (12.0-16.0) g/dL Hct 36.6 (36-46) % MCV 79.7 L (80-100) fL MCH 26.4 (26-34) PG MCHC 33.1 (30-36) % RDW 17.6 H (11.6-14.8) % Plt Count 362 (150-400) X10^3/uL Neut % (Auto) 58.2 (50-75) % Lymph % (Auto) 31.2 (25-40) % [place] % (Auto) 9.6 (3-14) % Eos % (Auto) 0.4 L (2-4) % Baso % (Auto) 0.6 (0-2) % Neut # (Auto) 5500 (9495-9896) /uL Lymph # (Auto) 3000 (4451-8584) /uL [place] # (Auto) 900 (0-900) /uL Eos # (Auto) 0 (0-450) /uL Baso # (Auto) 100 (0-100) /uL Sodium 141 (137-145) mmol/L Potassium 3.4 (3.4-5.1) mmol/L Chloride 104 (98-107) mmol/L Carbon Dioxide 23 (22-32) mmol/L BUN 13 (7-17) mg/dL Creatinine 0.56 (0.52-1.04) mg/dL Estimated GFR > 60 (>60) mL/min BUN/Creatinine Ratio 23.2 H (6-22) Glucose 116 H (70-99) mg/dL Calcium 9.9 (8.4-10.2) mg/dL Total Bilirubin 1.6 H (0.2-1.3) mg/dL AST 29 (14-36) IU/L ALT 24 (<35) IU/L Alkaline Phosphatase 62 (38-126) U/L Total Protein 8.3 H (6.3-8.2) g/dL Albumin 5.1 H (3.5-5.0) g/dL Globulin 3.2 (1.7-4.1) g/dL Albumin/Globulin Ratio 1.6 (1.0-2.8) Lipase 74 (23-300) U/L MDM Narrative Medical decision making narrative: All lab work, vital signs, nurse triage note, medication list, previous ER visits, and all imaging study reviewed. Patient given lactated Ringer's 1 L bolus x2 along with Benadryl droperidol Zofran. Patient has a appointment telehealth with bariatric surgeon down at [facility] tomorrow at 9:15 a.m regarding the next steps. Differential diagnosis gastric sleeve complication from surgery needing revision, small-bowel obstruction, viral, dehydration. Discharge Plan Departure Patient Disposition: Home Clinical Impression: Nausea and vomiting Qualifiers: Vomiting type: hematemesis Qualified Code(s): K92.0 - Hematemesis Instructions: Nausea and Vomiting-Adult Activity Restrictions/Additional Instructions: Return with new or worsening symptoms. Follow up with bariatric surgeon at [facility]. Prescriptions: No Action oxycodone-acetaminophen 5-325 mg tablet 1 tab PO BID PRN (Reason: pain) Qty: 60 0RF clonazepam 0.5 mg tablet 0.5 mg PO BID Qty: 60 5RF lamotrigine 100 mg tablet 100 mg PO DAILY Qty: 90 3RF promethazine 25 mg tablet 25 mg PO Q6H PRN (Reason: nausea and vomiting) Qty: 14 3RF sumatriptan succinate 6 mg/0.5 mL pen injector 6 mg SUBCUT ONCE Qty: 1 3RF Rx Instructions: may repeat dose once in 1 hour if not relieved diphenhydramine HCl [Benadryl Allergy] 25 mg tablet 25 mg PO DAILY PRN (Reason: rash) Patient Comments: Pt reports itchy rash on spine. butenafine [Lotrimin Ultra] 1 % cream 1 applic topical TID topiramate [Topamax] 25 mg Tablet 50 mg PO BID Qty: 90 0RF amoxicillin 500 mg capsule 500 mg PO BID Qty: 30 0RF metronidazole 250 mg tablet 250 mg PO TID Qty: 60 0RF bismuth subsalicylate [Pepto-Bismol] 262 mg/15 mL suspension 524 mg PO QID Qty: 473 0RF ondansetron 4 mg tablet,disintegrating 4 mg PO Q6H PRN (Reason: nausea and vomiting) Qty: 30 1RF pantoprazole [Protonix] 40 mg tablet,delayed release (DR/EC) 40 mg PO DAILY Qty: 60 1RF metronidazole 500 mg tablet 500 mg PO BID 10 Days Qty: 20 0RF ciprofloxacin HCl 750 mg tablet 750 mg PO Q12H 10 Days Qty: 20 0RF amoxicillin-pot clavulanate [Augmentin] 500-125 mg tablet 1 tab PO TID 7 Days Qty: 21 0RF hydrocodone-acetaminophen 5-325 mg tablet 1 tab PO Q6H PRN (Reason: pain) 3 Days Qty: 10 0RF Referrals: Sarah Dunbar MD [Primary Care Provider, Family Practice] Stand Alone Forms: Patient Portal/API
[2025-04-06] MEDS: diphenhydrAMINE 50 MG/ML VIAL IV (22:20)
[2025-04-06] MEDS: droPERidol 2.5 MG/ML VIAL IV (22:21)
[2025-04-06] MEDS: LACTATED RINGERS 1,000 ML 1000 ML IV ×2 (22:22→23:49)
--- NOTE | 2025-04-06 23:50 | PC.NURSE ---
pt states she would like to go home now as she knows when the medicine wears off she will start vomiting again, explained to pt Dr Haddad would be informed of her wishes
[2025-04-07 00:38] VITALS: BP 130/78; PULSE 96; RESP 16; O2SAT 100
== END 2025-04-07 00:42 | disposition home or self-care (01) ==
PROVIDERS: Emergency Medicine; Emergency Provider Family Medicine; PCP Student in an Organized Health Care Education/Training Program
DX: K92.0 Hematemesis (principal); Z98.84 Bariatric surgery status
CPT/HCPCS: 80053; 83690; 85025; 96361; 96374; 96375; 96376; 99283; 99284; J1200; J1790; J2405

== ENCOUNTER 2025-04-13 13:19 | Observation (INO) | payer OTHER, SELFPAY ==
[2025-03-22 07:44] VITALS: BMI 32.4
[2025-04-13] VITALS (28 sets, daily range): BP systolic 125–185; BP diastolic 64–135; PULSE 63–122; RESP 12–26; TEMP 36.6–36.8; O2SAT 91–100; BMI 32.4
--- NOTE | 2025-04-13 13:29 | ED.GENADULT ---
HPI - General Adult General Chief complaint: Abdominal Pain Stated complaint: Abd pain Time Seen by Provider: 04/13/25 13:20 History of Present Illness HPI narrative: 44-year-old woman with a history of bile reflux gastritis, recurrent episodes of severe nausea and vomiting, multiple ER visits for abdominal pain with intractable vomiting, admitted in January of last year with diverticulitis. She is having a gastric bypass revision with Dr. Kraus at [facility] in [place] at the end of this month to help improve pyloric function to avoid the bile reflux gastritis. She did just recently see him. She states that typically droperidol, Benadryl fluids and Dilaudid help with her pain. She was worried that she may have actually had a bit of blood in her emesis which is why she called today otherwise she would have ?waited it out throwing up in the shower?. No fevers or chills. Related Data Home Medications ?Medication ?Instructions ?Recorded ?Confirmed butenafine 1 % topical cream 1 applic topical TID Rash on back 03/22/25 03/28/25 (Lotrimin Ultra) diphenhydramine HCl 25 mg tablet 25 mg PO DAILY PRN rash 03/22/25 03/28/25 (Benadryl Allergy) Previous Rx's ?Medication ?Instructions ?Recorded clonazepam 0.5 mg tablet 0.5 mg PO BID #60 tabs 03/18/25 lamotrigine 100 mg tablet 100 mg PO DAILY #90 tabs 03/18/25 promethazine 25 mg tablet 25 mg PO Q6H PRN nausea and 03/18/25 vomiting #14 tabs bismuth subsalicylate 262 mg/15 mL 524 mg (30 mL) PO QID #473 mL 03/21/25 oral suspension (Pepto-Bismol) metronidazole 250 mg tablet 250 mg PO TID #60 tabs 03/21/25 ondansetron 4 mg disintegrating 4 mg PO Q6H PRN nausea and 03/21/25 tablet vomiting #30 tabs pantoprazole 40 mg tablet,delayed 40 mg PO DAILY #60 tabs 03/21/25 release (Protonix) topiramate 25 mg tablet (Topamax) 50 mg (2 x 25 mg) PO BID #90 tabs 03/21/25 sumatriptan succinate 6 mg/0.5 mL 6 mg (0.5 mL) SUBCUT ONCE #1 mL 04/05/25 subcutaneous pen injector oxycodone-acetaminophen 5 mg-325 1 tab PO BID PRN pain #21 tabs 04/13/25 mg tablet Allergies Allergy/AdvReac Type Severity Reaction Status Date / Time vancomycin Allergy Intermediate ITCHING Verified 04/13/25 13:35 gluten Allergy Celiac Verified 04/13/25 13:35 NSAIDS (Non-Steroidal AdvReac Mild Gastrointestinal Verified 04/13/25 13:35 Anti-Inflamma Upset benzonatate (From Tessalon AdvReac Unknown Hives Verified 04/13/25 13:35 Perles) escitalopram (From Lexapro) AdvReac Unknown Hallucinati Verified 04/13/25 13:35 ng Review of Systems Review of Systems Narrative: Pertinent positive and negative findings as per HPI Patient History Medical History Left corneal abrasion Headache Polycystic ovary disease Celiac disease GERD with apnea Hypertension Bipolar disorder Surgical History H/O: hysterectomy Status post tubal ligation History of section H/O abdominoplasty H/O oophorectomy H/O gastric sleeve History of cholecystectomy History of appendectomy Social History marital status: household members: significant other and children lives independently: Yes occupational status: employed alcohol intake: never substance use type: marijuana alcohol intake frequency: holidays/special occasions only Exam Initial Vital Signs Initial Vital Signs: Vital Signs Pulse Rate 122 H 04/13/25 13:29 Respiratory Rate 24 04/13/25 13:29 Blood Pressure 127/87 04/13/25 13:29 Pulse Oximetry 95 04/13/25 13:29 General: Profusely vomiting, pale, diaphoretic, able to cooperate completely in speak in full sentences HEENT: Moist mucous membranes, normal sclera with reactive pupils, Respiratory: Lungs are clear to auscultation, no wheezing no rales no rhonchi. Full and symmetrical air movement Cardiac: Regular rate and rhythm no murmurs no bruits Abdomen: Soft, tender in the supraumbilical area and slightly into the left lower quadrant. She does not have an acute surgical abdomen Neurologic: Grossly neurologically intact with no obvious asymmetries or abnormalities Extremities: No trauma, well perfused Psych: Cooperative, appropriate insight and affect Course Orders Ordered: ED Orders 04/13/25 13:28 Complete Blood Count AUTO DIFF Stat Comprehensive Metabolic Panel Stat Lactate (Lactic Acid) Stat Lipase Stat Magnesium Stat Urinalysis and Microscopic Stat Sodium Chloride (Normal Saline 0.9%) 1,000 mls @ 1,000 mls/hr IV BOLUS ONE Stop: 04/13/25 18:34 Last Admin: 04/13/25 17:36 Dose: 1,000 mls/hr Discontinued Medications Diphenhydramine HCl (Diphenhydramine 50 Mg/Ml Vial) 25 mg IV NOW ONE Stop: 04/13/25 13:28 Last Admin: 04/13/25 13:46 Dose: 25 mg Droperidol (Droperidol 2.5 Mg/Ml Vial) 1.25 mg IV NOW ONE Stop: 04/13/25 13:28 Last Admin: 04/13/25 13:45 Dose: 1.25 mg Sodium Chloride (Normal Saline 0.9%) 1,000 mls @ 1,000 mls/hr IV BOLUS ONE Stop: 04/13/25 14:26 Last Infusion: 04/13/25 14:29 Dose: Infused Vital Signs Vital signs: Vital Signs - 8 hr 04/13/25 13:29 04/13/25 13:29 04/13/25 13:30 Temperature Pulse Rate 122 H 122 H Respiratory Rate 24 24 Blood Pressure 127/87 Pulse Oximetry 95 95 Oxygen Delivery Method 04/13/25 13:32 04/13/25 13:32 04/13/25 13:35 Temperature 98.2 F Pulse Rate 122 H 114 H Respiratory Rate 26 H 18 Blood Pressure 130/86 130/86 Pulse Oximetry 95 96 Oxygen Delivery Method Room Air 04/13/25 13:46 04/13/25 13:46 04/13/25 14:00 Temperature Pulse Rate 113 H Respiratory Rate 15 Blood Pressure 153/118 H 138/72 Pulse Oximetry 97 Oxygen Delivery Method 04/13/25 14:00 04/13/25 14:15 04/13/25 14:15 Temperature Pulse Rate 100 H 74 Respiratory Rate 21 19 Blood Pressure 128/66 Pulse Oximetry 98 100 Oxygen Delivery Method 04/13/25 14:30 04/13/25 14:30 04/13/25 14:45 Temperature Pulse Rate 80 Respiratory Rate 16 Blood Pressure 132/68 125/68 Pulse Oximetry 100 Oxygen Delivery Method 04/13/25 14:45 04/13/25 15:00 04/13/25 15:00 Temperature Pulse Rate 64 78 Respiratory Rate 19 19 Blood Pressure 138/72 Pulse Oximetry 98 100 Oxygen Delivery Method 04/13/25 15:16 04/13/25 15:16 04/13/25 15:30 Temperature Pulse Rate 78 88 Respiratory Rate 18 22 Blood Pressure 134/75 Pulse Oximetry 100 98 Oxygen Delivery Method 04/13/25 15:32 04/13/25 15:32 04/13/25 15:45 Temperature Pulse Rate 79 Respiratory Rate 18 Blood Pressure 134/86 127/79 Pulse Oximetry 98 Oxygen Delivery Method 04/13/25 15:45 04/13/25 16:00 04/13/25 16:00 Temperature Pulse Rate 70 97 H Respiratory Rate 19 19 Blood Pressure 133/83 Pulse Oximetry 100 99 Oxygen Delivery Method 04/13/25 16:15 04/13/25 16:15 04/13/25 16:30 Temperature Pulse Rate 76 Respiratory Rate 18 Blood Pressure 134/80 143/77 H Pulse Oximetry 100 Oxygen Delivery Method 04/13/25 16:30 04/13/25 16:45 04/13/25 16:45 Temperature Pulse Rate 78 64 Respiratory Rate 20 16 Blood Pressure 136/67 Pulse Oximetry 100 100 Oxygen Delivery Method 04/13/25 17:00 04/13/25 17:00 04/13/25 17:15 Temperature Pulse Rate 70 Respiratory Rate 17 Blood Pressure 156/74 H 147/67 H Pulse Oximetry 100 Oxygen Delivery Method 04/13/25 17:15 Temperature Pulse Rate 63 Respiratory Rate 19 Blood Pressure Pulse Oximetry 100 Oxygen Delivery Method Medical Decision Making Lab Data 04/13/25 13:32 04/13/25 13:32 Labs: Lab Results 04/13/25 04/13/25 Range/Units 13:32 15:32 WBC 11.4 H (4.5-11.0) X10^3/uL RBC 4.74 (4.0-5.2) X10^6/uL Hgb 12.6 (12.0-16.0) g/dL Hct 37.6 (36-46) % MCV 79.3 L (80-100) fL MCH 26.5 (26-34) PG MCHC 33.4 (30-36) % RDW 17.4 H (11.6-14.8) % Plt Count 391 (150-400) X10^3/uL Neut % (Auto) 58.1 (50-75) % Lymph % (Auto) 29.3 (25-40) % [place] % (Auto) 11.6 (3-14) % Eos % (Auto) 0.1 L (2-4) % Baso % (Auto) 0.9 (0-2) % Neut # (Auto) 6600 (5226-3571) /uL Lymph # (Auto) 3300 (1568-5389) /uL [place] # (Auto) 1300 H (0-900) /uL Eos # (Auto) 0 (0-450) /uL Baso # (Auto) 100 (0-100) /uL Sodium 140 (137-145) mmol/L Potassium 3.7 (3.4-5.1) mmol/L Chloride 106 (98-107) mmol/L Carbon Dioxide 16 L (22-32) mmol/L BUN 8 (7-17) mg/dL Creatinine 0.69 (0.52-1.04) mg/dL Estimated GFR > 60 (>60) mL/min BUN/Creatinine Ratio 11.6 (6-22) Glucose 121 H (70-99) mg/dL Lactate 3.1 H 1.0 (0.7-2.1) mmol/L Calcium 10.0 (8.4-10.2) mg/dL Magnesium 1.8 (1.6-2.3) mg/dL Total Bilirubin 2.2 H (0.2-1.3) mg/dL AST 28 (14-36) IU/L ALT 21 (<35) IU/L Alkaline Phosphatase 57 (38-126) U/L Total Protein 8.4 H (6.3-8.2) g/dL Albumin 5.3 H (3.5-5.0) g/dL Globulin 3.1 (1.7-4.1) g/dL Albumin/Globulin Ratio 1.7 (1.0-2.8) Lipase 93 (23-300) U/L MDM Narrative Medical decision making narrative: CC: Recurrent severe nausea and vomiting Complicating co-morbidities: Recently diagnosed with bile reflux gastritis per EGD with surgery scheduled for revision at the end of this month, recurrent episodes of severe vomiting and abdominal pain Data collected from: patient, medics Medical records reviewed: Recent primary care note from 04/12 reviewed Multiple ED visits and hospitalization over the last year also reviewed Differential considered: Bile reflux gastritis, bowel obstruction, GI bleeding, viral gastroenteritis Exam documented above, pertinent findings include: Retching but he will speak. Heart and lungs are clear, does not have a surgical abdomen Lab Test results independently reviewed as above. Pertinent findings: White count is 11.4 with no left shift, do not suspect infection I believe this is likely demargination Chemistries are reassuring Initial lactate was 3.1 repeat is 1.0 I suspect that is dehydration rather than infection Treatments: 2 L of fluid, Inapsine, Benadryl she is feeling much better Re-evaluations: 530pm after 1 L of fluid she is doing better however still has not voided spontaneously still has a very dry mouth. We will do another L of fluid. Her pain is adequately controlled and she is vomiting willing to try some liquids as well 550 after 2 sips of diet sprite, she is again profusely vomiting, heart rates back up to 120, she is diaphoretic and tremulous again. Discussion: 44-year-old woman with bile reflux gastritis, surgical intervention planned later this month with recurrent episodes of severe pain and vomiting that she has been unable to manage at home, did get pain and nausea under control but with 2 sips of soda she was again back to where we had started. Another dose of droperidol ordered. Patient would prefer to be admitted to the hospital overnight for continued IV fluids with p.o. challenge in the morning. This is not unreasonable given all of her prior diagnoses, extended ER visits and multiple returns. At this time there is no evidence of upper GI bleeding. Reviewed with the hospitalist, Dr Espinoas, and she will be admitted Discharge Plan Departure Patient Disposition: Admitted as Observation Clinical Impression: Bile reflux gastritis, Intractable vomiting
[2025-04-13 13:43] LABS: Add Manual Diff / Slide Review NO; Hematocrit 37.6 % (36-46); Hemoglobin 12.6 g/dL (12.0-16.0); Lymphocytes Absolute Auto 3300 /uL (1100-4500); Mean Corpuscular HGB Conc 33.4 % (30-36); Mean Corpuscular Hemoglobin 26.5 PG (26-34); Mean Corpuscular Volume 79.3 fL (80-100); Platelet Count 391 X10^3/uL (150-400)
[2025-04-13] MEDS: droPERidol 2.5 MG/ML VIAL 1.25 MG IV (13:45)
[2025-04-13] MEDS: diphenhydrAMINE 50 MG/ML VIAL 25 MG IV ×2 (13:46→23:03)
[2025-04-13] MEDS: SODIUM CHLORIDE 0.9% 1,000 ML 1000 ML IV ×2 (13:46→17:36)
[2025-04-13 13:55] LABS: Alanine Aminotransferase 21 IU/L (<35); Albumin 5.3 g/dL (3.5-5.0); Albumin Globulin Ratio 1.7 (1.0-2.8); Alkaline Phosphatase 57 U/L (38-126); Blood Urea Nitrogen 8 mg/dL (7-17); Calcium 10.0 mg/dL (8.4-10.2); Carbon Dioxide 16 mmol/L (22-32); Chloride 106 mmol/L (98-107); Estimated Glomerular Filt Rate > 60 mL/min (>60); Globulin 3.1 g/dL (1.7-4.1); Glucose 121 mg/dL (70-99); HEMOLYSIS 64 (0-50); Lipase 93 U/L (23-300); Magnesium 1.8 mg/dL (1.6-2.3); Potassium 3.7 mmol/L (3.4-5.1); Sodium 140 mmol/L (137-145); Total Protein 8.4 g/dL (6.3-8.2)
[2025-04-13 13:56] LABS: Lactate (Lactic Acid) 3.1 mmol/L (0.7-2.1)
[2025-04-13 15:15] LABS: Reflexed Lactate in 2 Hours Y
[2025-04-13 15:50] LABS: Lactate 2HR (Lactic Acid Rflx) 1.0 mmol/L (0.7-2.1)
[2025-04-13] MEDS: droPERidol 2.5 MG/ML VIAL 0.625 MG IV (18:03)
[2025-04-13] MEDS: HYDROMORPHONE 2 MG INJ IV (18:15)
[2025-04-13] MEDS: SUCRALFATE 1 GM/10 ML ORAL SUSP 2 GM PO (18:24)
[2025-04-13] MEDS: LACTATED RINGERS 1,000 ML 1000 ML IV (18:30)
--- NOTE | 2025-04-13 18:32 | P.HP_ITS ---
History of Present Illness History of Present Illness Date Patient Seen: 04/13/25 Chief complaint: Abd pain Narrative: Chief complaint: Intractable vomiting secondary to bottom of reflux complication from gastric bypass surgery History of present illness: 44-year-old female had many episodes and ears of a intractable vomiting was seen a month ago for this and on endoscopy was found that she had bile reflux she had further episode evaluation revealed that she refluxes bile into the pylorus and is scheduled to have a revision of gastric bypass surgery at the end of the month. She has been on a regimen of Topamax Protonix and sucralfate and Pepto-Bismol which has been helpful. However patient for the last 24 hours has been having unrelenting bilious vomiting came to the emergency room initially seemed to respond to droperidol but then try to drink some 7 up and started vomiting again patient was referred for admission under observation status. Findings emergency room remarkable for isolated bilirubin of 2.0 otherwise her comprehensive metabolic panel is unremarkable except for a CO2 of 19 probably because of the loss of bicarbonate in the vomiting Past social family surgical and medical history please see the bottom of the note: Review of systems: No chest pain palpitations No dyspnea No urinary symptom No paresthesia paresis Physical exam: Pale miserable appearing vomiting female with dry heaves and retching HEENT unremarkable No labored respirations Abdomen is tender to palpation particularly in epigastric Extremities no edema no cyanosis Neurologic nonfocal For objective laboratory and imaging please see the bottom of the note: Assessment and plan: 35-year-old patient very well known to me with cyclic vomiting bile reflux into the pylorus * Placed in observation IV hydration with lactated Ringer's * IV Dilaudid 1-2 mg every 2 hours * Oral Carafate * IV Protonix * Antiemetics * Continue Topamax DVT prophylaxis: * Not indicated Code status: * Full code 55 minutes were involved in management this patient including direct interview with the patient examination of the patient discussion with the emergency staff review of previous records and previous objective laboratory findings and imaging studies [facility] Medical History Left corneal abrasion Headache Polycystic ovary disease Celiac disease GERD with apnea Hypertension Bipolar disorder Surgical History H/O: hysterectomy Status post tubal ligation History of section H/O abdominoplasty H/O oophorectomy H/O gastric sleeve History of cholecystectomy History of appendectomy Social History marital status: household members: significant other and children lives independently: Yes occupational status: employed Smoking Status: Never smoker alcohol intake: never substance use type: marijuana Meds Home Medications and Allergies Home Medications ?Medication ?Instructions ?Recorded ?Confirmed ?Type clonazepam 0.5 mg tablet 0.5 mg PO BID #60 tabs 03/1803/28/25 Rx lamotrigine 100 mg tablet 100 mg PO DAILY #90 tabs 08/0203/28/25 Rx promethazine 25 mg tablet 25 mg PO Q6H PRN nausea and 03/18/25 03/28/25 Rx vomiting #14 tabs bismuth subsalicylate 262 mg/15 mL 524 mg (30 mL) PO Q ID #473 mL 03/21/25 03/28/25 Rx oral suspension (Pepto-Bismol) metronidazole 250 mg tablet 250 mg PO TID #60 tabs 03/28/25 Rx ondansetron 4 mg disintegrating 4 mg PO Q6H PRN nausea and 03/21/25 03/28/25 Rx tablet vomiting #30 tabs pantoprazole 40 mg tablet,delayed 40 mg PO DAILY #60 t abs 03/21/25 03/28/25 Rx release (Protonix) topiramate 25 mg tablet (Topamax) 50 mg (2 x 25 mg) PO BID #90 tabs 03/21/25 03/28/25 Rx butenafine 1 % topical cream 1 applic topical TID Rash on back 03/22/25 03/28/25 History (Lotrimin Ultra) diphenhydramine HCl 25 mg tablet 25 mg PO DAILY PRN ra sh 03/22/25 03/28/25 History (Benadryl Allergy) sumatriptan succinate 6 mg/0.5 mL 6 mg (0.5 mL) SUBCUT ONCE #1 mL 04/05/25 Rx subcutaneous pen injector oxycodone-acetaminophen 5 mg-325 1 tab PO BID PRN pain #21 tabs 04/13/25 Rx mg tablet Allergies Allergy/AdvReac Type Severity Reaction Status Date / Time vancomycin Allergy Intermediate ITCHING Verified 04/13/25 13:35 gluten Allergy Celiac Verified 04/13/25 13:35 NSAIDS (Non-Steroidal AdvReac Mild Gastrointestinal Verified 04/13/25 13:35 Anti-Inflamma Upset benzonatate (From Tessalon AdvReac Unknown Hives Verified 04/13/25 13:35 Perles) escitalopram (From Lexapro) AdvReac Unknown Hallucinati Verified 04/13/25 13:35 ng Exam Vital Signs (past 8 hours): - 04/13/25 13:29 04/13/25 13:29 04/13/25 13:30 Temperature Pulse Rate 122 H 122 H Respiratory Rate 24 24 Blood Pressure 127/87 Pulse Oximetry 95 95 Oxygen Delivery Method 04/13/25 13:32 04/13/25 13:32 04/13/25 13:35 Temperature 98.2 F Pulse Rate 122 H 114 H Respiratory Rate 26 H 18 Blood Pressure 130/86 130/86 Pulse Oximetry 95 96 Oxygen Delivery Method Room Air 04/13/25 13:46 04/13/25 13:46 04/13/25 14:00 Temperature Pulse Rate 113 H Respiratory Rate 15 Blood Pressure 153/118 H 138/72 Pulse Oximetry 97 Oxygen Delivery Method 04/13/25 14:00 04/13/25 14:15 04/13/25 14:15 Temperature Pulse Rate 100 H 74 Respiratory Rate 21 19 Blood Pressure 128/66 Pulse Oximetry 98 100 Oxygen Delivery Method 04/13/25 14:30 04/13/25 14:30 04/13/25 14:45 Temperature Pulse Rate 80 Respiratory Rate 16 Blood Pressure 132/68 125/68 Pulse Oximetry 100 Oxygen Delivery Method 04/13/25 14:45 04/13/25 15:00 04/13/25 15:00 Temperature Pulse Rate 64 78 Respiratory Rate 19 19 Blood Pressure 138/72 Pulse Oximetry 98 100 Oxygen Delivery Method 04/13/25 15:16 04/13/25 15:16 04/13/25 15:30 Temperature Pulse Rate 78 88 Respiratory Rate 18 22 Blood Pressure 134/75 Pulse Oximetry 100 98 Oxygen Delivery Method 04/13/25 15:32 04/13/25 15:32 04/13/25 15:45 Temperature Pulse Rate 79 Respiratory Rate 18 Blood Pressure 134/86 127/79 Pulse Oximetry 98 Oxygen Delivery Method 04/13/25 15:45 04/13/25 16:00 04/13/25 16:00 Temperature Pulse Rate 70 97 H Respiratory Rate 19 19 Blood Pressure 133/83 Pulse Oximetry 100 99 Oxygen Delivery Method 04/13/25 16:15 04/13/25 16:15 04/13/25 16:30 Temperature Pulse Rate 76 Respiratory Rate 18 Blood Pressure 134/80 143/77 H Pulse Oximetry 100 Oxygen Delivery Method 04/13/25 16:30 04/13/25 16:45 04/13/25 16:45 Temperature Pulse Rate 78 64 Respiratory Rate 20 16 Blood Pressure 136/67 Pulse Oximetry 100 100 Oxygen Delivery Method 04/13/25 17:00 04/13/25 17:00 04/13/25 17:15 Temperature Pulse Rate 70 Respiratory Rate 17 Blood Pressure 156/74 H 147/67 H Pulse Oximetry 100 Oxygen Delivery Method 04/13/25 17:15 Temperature Pulse Rate 63 Respiratory Rate 19 Blood Pressure Pulse Oximetry 100 Oxygen Delivery Method Oxygen Delivery Method Room Air Objective Labs 04/13/25 13:32 04/13/25 13:32 Labs: Laboratory Results - last 24 hr 04/13/25 04/13/25 13:32 15:32 WBC 11.4 H RBC 4.74 Hgb 12.6 Hct 37.6 MCV 79.3 L MCH 26.5 MCHC 33.4 RDW 17.4 H Plt Count 391 Neut % (Auto) 58.1 Lymph % (Auto) 29.3 [place] % (Auto) 11.6 Eos % (Auto) 0.1 L Baso % (Auto) 0.9 Neut # (Auto) 6600 Lymph # (Auto) 3300 [place] # (Auto) 1300 H Eos # (Auto) 0 Baso # (Auto) 100 Sodium 140 Potassium 3.7 Chloride 106 Carbon Dioxide 16 L BUN 8 Creatinine 0.69 Estimated GFR > 60 BUN/Creatinine Ratio 11.6 Glucose 121 H Lactate 3.1 H 1.0 Calcium 10.0 Magnesium 1.8 Total Bilirubin 2.2 H AST 28 ALT 21 Alkaline Phosphatase 57 Total Protein 8.4 H Albumin 5.3 H Globulin 3.1 Albumin/Globulin Ratio 1.7 Lipase 93 Assessment & Plan Time-Based Coding :: [TOTAL MINUTES] spent with patient and on the chart (including review of chart, obtaining history, exam, reviewing outside data, placing orders, documenting exam and treatment plan, and counseling patient) on [DATE].
--- NOTE | 2025-04-13 18:46 | PC.NURSE ---
LR bolus running at time of d/c from ED [facility] floor Rm 219. LR paused in MAR for transport.
[2025-04-13] MEDS: LACTATED RINGERS 1,000 ML 100 ML IV (19:42)
[2025-04-13] MEDS: PANTOPRAZOLE 40 MG VIAL IV (21:21)
[2025-04-13] MEDS: TOPIRAMATE 25 MG TABLET 50 MG PO (21:21)
[2025-04-13] MEDS: SUCRALFATE 1 GM/10 ML ORAL SUSP PO (21:21)
[2025-04-13] MEDS: SCOPOLAMINE 1 PATCH TOP (23:03)
[2025-04-14] MEDS: SUCRALFATE 1 GM/10 ML ORAL SUSP PO ×4 (00:15→18:43)
[2025-04-14] MEDS: HYDROMORPHONE 1 MG INJ IV ×6 (00:16→21:35)
[2025-04-14] MEDS: LACTATED RINGERS 1,000 ML 100 ML IV ×2 (05:22→21:49)
[2025-04-14] MEDS: ONDANSETRON 4 MG ODT PO ×2 (05:27→13:11)
[2025-04-14 06:24] LABS: Add Manual Diff / Slide Review NO; Hematocrit 28.6 % (36-46); Hemoglobin 9.6 g/dL (12.0-16.0); Lymphocytes Absolute Auto 3200 /uL (1100-4500); Mean Corpuscular HGB Conc 33.6 % (30-36); Mean Corpuscular Hemoglobin 26.7 PG (26-34); Mean Corpuscular Volume 79.4 fL (80-100); Platelet Count 256 X10^3/uL (150-400)
[2025-04-14 06:34] LABS: Bilirubin Urine UA 1+ (NEGATIVE); Color Urine UA YELLOW; Glucose Urine UA NEGATIVE (Negative); Ketones Urine UA TRACE (NEGATIVE); Leukocyte Esterase Urine UA NEGATIVE (NEGATIVE); Nitrite Urine UA NEGATIVE (Negative); Occult Blood Urine UA NEGATIVE (Negative); Protein Urine UA TRACE (Negative); Specific Gravity Urine UA 1.025 (1.000-1.035); Urobilinogen Urine UA 1.0 E.U./dL (0.2)
[2025-04-14 06:39] LABS: Appearance Urine UA TURBID; pH Urine UA 6.0 (4.5-8.0)
[2025-04-14 06:50] LABS: Ictotest Urine Negative (Negative)
[2025-04-14 06:51] LABS: Culture Indicated Urine Cult Not Indicated
[2025-04-14 08:00] VITALS: BP 117/77; PULSE 66; RESP 16; TEMP 36.3; O2SAT 96
[2025-04-14] MEDS: PANTOPRAZOLE 40 MG VIAL IV ×2 (08:48→21:34)
[2025-04-14] MEDS: SODIUM CHLORIDE 0.9% FLUSH 10 ML IV ×2 (08:49→21:35)
[2025-04-14] MEDS: TOPIRAMATE 25 MG TABLET 50 MG PO ×2 (08:49→21:34)
[2025-04-14] MEDS: diphenhydrAMINE 50 MG/ML VIAL 25 MG IV ×2 (08:49→21:37)
--- NOTE | 2025-04-14 10:52 | DIET.CONS ---
Dietary Consultation Note Admission Date: 04/13/2025 18:10 Assessment: 44 y F admitted for bile reflux. PMH of gastric bypass and will have revision later this month. Dietitian screened for low MNA score. Pt advancing to CLD. PCP provider per note has order vitamin/mineral labs to assess levels. No results available currently. Potential deficiencies r/t gastric bypass (gastric sleeve), presence of bile in stomach, and ongoing abd pain/nausea/vomiting. Ht: 165.1 cm Wt: 88.451 kg BMI: 32.4 UBW: 83.915 kg on 05/19/24, 90 kg on 03/05/25, 89.414 kg on 03/28/25; no significant weight loss recently per EMR Last BM: 04/13/25 (04/13/25 19:07) MNA: 10 Mxawell Score: 23 Diet: 04/13/25 18:17 NPO Diet Diet Modifications: NPO Type: NPO except for Meds 04/14/25 Lunch Clear Liquid Diet Diet Modifications: Advance as tolerated Labs: RBC 3.60 X10^6/uL (4.0-5.2) L 04/14/25 05:40 Hgb 9.6 g/dL (12.0-16.0) L 04/14/25 05:40 Hct 28.6 % (36-46) L 04/14/25 05:40 Creatinine 0.69 mg/dL (0.52-1.04) 04/13/25 13:32 Lactate 1.0 mmol/L (0.7-2.1) 04/13/25 15:32 Nutrition Diagnosis: Inadequate oral intake r/t altered GI function/structure aeb bile reflux, nausea/vomiting/abd pain Interventions: -Clear ensure on CLD with meals and Ensure max when diet advanced EER: 1800 kcals (MSJx1.2) 70 g protein (1 g/kg adjusted IBW) Monitoring/Evaluations: PO intakes Electronically Signed by: Ritika Evans 04/14/25 10:52 Clinical Dietitian [address] [address]
--- NOTE | 2025-04-14 11:12 | P.PN_ITS ---
Subjective Subjective Date Patient Seen: 04/14/25 Interval history: Chief complaint: Intractable vomiting secondary to bottom of reflux complication from gastric bypass surgery History of present illness: 04/12: 44-year-old female had many episodes and ears of a intractable vomiting was seen a month ago for this and on endoscopy was found that she had bile reflux she had further episode evaluation revealed that she refluxes bile into the pylorus and is scheduled to have a revision of gastric bypass surgery at the end of the month. She has been on a regimen of Topamax Protonix and sucralfate and Pepto-Bismol which has been helpful. However patient for the last 24 hours has been having unrelenting bilious vomiting came to the emergency room initially seemed to respond to droperidol but then try to drink some 7 up and started vomiting again patient was referred for admission under observation status. Findings emergency room remarkable for isolated bilirubin of 2.0 otherwise her comprehensive metabolic panel is unremarkable except for a CO2 of 19 probably because of the loss of bicarbonate in the vomiting Hospital course: 04/13: Nausea and vomiting settled down overnight patient has remained NPO agreed to trial of clear liquids and advancing diet Review of systems: No chest pain palpitations No dyspnea No urinary symptom No paresthesia paresis Physical exam: No acute distress HEENT unremarkable No labored respirations Abdomen is not tender to palpation particularly in epigastric Extremities no edema no cyanosis Neurologic nonfocal For objective laboratory and imaging please see the bottom of the note: Assessment and plan: 35-year-old patient very well known to me with cyclic vomiting bile reflux into the pylorus * Placed in observation IV hydration with lactated Ringer's * IV Dilaudid 1-2 mg every 2 hours * Oral Carafate * IV Protonix * Antiemetics * Continue Topamax * Clear liquids and advance diet DVT prophylaxis: * Not indicated Code status: * Full code 35 minutes were involved in management this patient including direct interview with the patient examination of the patient discussion with the emergency staff review of previous records and previous objective laboratory findings and imaging studies Exam Vital Signs (past 8 hours): Oxygen Delivery Method Room Air Objective Labs 04/14/25 05:40 04/13/25 13:32 Labs: Laboratory Results - last 24 hr 04/13/25 04/13/25 04/14/25 13:32 15:32 03:15 WBC 11.4 H RBC 4.74 Hgb 12.6 Hct 37.6 MCV 79.3 L MCH 26.5 MCHC 33.4 RDW 17.4 H Plt Count 391 Neut % (Auto) 58.1 Lymph % (Auto) 29.3 [place] % (Auto) 11.6 Eos % (Auto) 0.1 L Baso % (Auto) 0.9 Neut # (Auto) 6600 Lymph # (Auto) 3300 [place] # (Auto) 1300 H Eos # (Auto) 0 Baso # (Auto) 100 Sodium 140 Potassium 3.7 Chloride 106 Carbon Dioxide 16 L BUN 8 Creatinine 0.69 Estimated GFR > 60 BUN/Creatinine Ratio 11.6 Glucose 121 H Lactate 3.1 H 1.0 Calcium 10.0 Magnesium 1.8 Total Bilirubin 2.2 H AST 28 ALT 21 Alkaline Phosphatase 57 Total Protein 8.4 H Albumin 5.3 H Globulin 3.1 Albumin/Globulin Ratio 1.7 Lipase 93 Urine Color Yellow Urine Appearance Turbid Urine pH 6.0 Ur Specific [place] 1.025 Urine Protein Trace H Urine Glucose (UA) Negative Urine Ketones Trace H Urine Occult Blood Negative Urine Nitrate Negative Urine Bilirubin 1+ H Ur Bilirubin Confirm Negative Urine Urobilinogen 1.0 Ur Leukocyte Esterase Negative Urine RBC None seen Urine WBC 0-1/hpf Ur Squamous Epith Cells 0-1 /hpf Amorphous Sediment 4+ Urine Bacteria Few (2-10) H Urine Mucus 1+ H Ur Culture Indicated? Cult not indicated Vol Urine Centrifuged 10ml (spun) 04/14/25 05:40 WBC 7.4 RBC 3.60 L Hgb 9.6 L Hct 28.6 L MCV 79.4 L MCH 26.7 MCHC 33.6 RDW 17.2 H Plt Count 256 Neut % (Auto) 44.1 L Lymph % (Auto) 42.8 H [place] % (Auto) 10.4 Eos % (Auto) 2.1 Baso % (Auto) 0.6 Neut # (Auto) 3300 Lymph # (Auto) 3200 [place] # (Auto) 800 Eos # (Auto) 200 Baso # (Auto) 0 Sodium Potassium Chloride Carbon Dioxide BUN Creatinine Estimated GFR BUN/Creatinine Ratio Glucose Lactate Calcium Magnesium Total Bilirubin AST ALT Alkaline Phosphatase Total Protein Albumin Globulin Albumin/Globulin Ratio Lipase Urine Color Urine Appearance Urine pH Ur Specific [place] Urine Protein Urine Glucose (UA) Urine Ketones Urine Occult Blood Urine Nitrate Urine Bilirubin Ur Bilirubin Confirm Urine Urobilinogen Ur Leukocyte Esterase Urine RBC Urine WBC Ur Squamous Epith Cells Amorphous Sediment Urine Bacteria Urine Mucus Ur Culture Indicated? Vol Urine Centrifuged PFSH Medical History Left corneal abrasion Headache Polycystic ovary disease Celiac disease GERD with apnea Hypertension Bipolar disorder Surgical History H/O: hysterectomy Status post tubal ligation History of section H/O abdominoplasty H/O oophorectomy H/O gastric sleeve History of cholecystectomy History of appendectomy Social History marital status: household members: significant other and children lives independently: Yes occupational status: employed Smoking Status: Never smoker alcohol intake: never substance use type: marijuana Assessment & Plan Time-Based Coding :: [TOTAL MINUTES] spent with patient and on the chart (including review of chart, obtaining history, exam, reviewing outside data, placing orders, documenting exam and treatment plan, and counseling patient) on [DATE].
--- NOTE | 2025-04-14 12:38 | CM.DANOTE ---
Initial DCP Assessment Note Patient is a 44 yo female, resident of [place], multiple ER visits and hospital admissions for abd pain, diverticulitis flares, intractable vomiting, admitted OBS for management of intractable vomiting secondary to bottom of reflux complication from gastric bypass. Patient has follow up scheduled at [facility] for revision of her original gastric bypass surgery. Payor: [facility] PCP: Dr. 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 Pt preference is to d/c home when stable and does not anticipate any further needs. SW team can provide a signed work release note to patient as needed. Plan: SW to follow for plan of discharge home when stable and possibly provide work release letter. SW to follow for any further identified discharge planning needs. GIO Garg Discharge Planning/Care Management CM Discharge Assessment Start: 04/13/25 18:36 Freq: Status: Active Protocol: Document 04/14/25 12:14 SHERWIN (Rec: 04/14/25 12:38 SHERWIN [id number]) Discharge Planning Assessment Assigned Discharge GIO Packer Animal Stunner DPOA/Assigned Maykel Escobar, spouse Designee Name Contact Information [phone] Advance Directives? No Advance Directives No on File History Provided By Patient,Medical Record Has Patient been Yes admitted in last 30 days? 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 Prior Living House Arrangements Household Members significant other,children Type of Drives own vehicle transporation used prior to admit Independent with ADL Yes 's Is patient alert and Yes oriented? Comment Independent Comment Patient has a bath chair to help her relax in shower if she has a migraine. Comment Home Barriers to No Discharge Comment Home w/ spouse expected Discharge Plan Home Transportation Spouse can transport home at d/c Arrangement Referrals Initiated None needed Additional Comment Likely outpt f/u with Surgeon and has GI f/u in May scheduled
[2025-04-14 14:00] VITALS: BP 116/74; PULSE 66; RESP 16; TEMP 36.5; O2SAT 100
[2025-04-14 20:10] VITALS: BP 117/73; PULSE 64; RESP 18; TEMP 36.5; O2SAT 99
[2025-04-15] MEDS: SUCRALFATE 1 GM/10 ML ORAL SUSP PO ×2 (00:37→06:38)
--- NOTE | 2025-04-15 01:49 | PC.WOUNDPHOT ---
1) Scarring to mid back r/t rash. 2) Lesion to left breast, states it was a blister.
[2025-04-15 05:02] LABS: Add Manual Diff / Slide Review NO; Hematocrit 27.7 % (36-46); Hemoglobin 9.0 g/dL (12.0-16.0); Lymphocytes Absolute Auto 2700 /uL (1100-4500); Mean Corpuscular HGB Conc 32.4 % (30-36); Mean Corpuscular Hemoglobin 26.0 PG (26-34); Mean Corpuscular Volume 80.0 fL (80-100); Platelet Count 191 X10^3/uL (150-400)
[2025-04-15] MEDS: LACTATED RINGERS 1,000 ML 100 ML IV (06:39)
--- NOTE | 2025-04-15 07:44 | P.PN_ITS ---
Subjective Subjective Interval history: Hospital course: 04/12: 44-year-old female had many episodes and ears of a intractable vomiting was seen a month ago for this and on endoscopy was found that she had bile reflux she had further episode evaluation revealed that she refluxes bile into the pylorus and is scheduled to have a revision of gastric bypass surgery at the end of the month. She has been on a regimen of Topamax Protonix and sucralfate and Pepto-Bismol which has been helpful. However patient for the last 24 hours has been having unrelenting bilious vomiting came to the emergency room initially seemed to respond to droperidol but then try to drink some 7 up and started vomiting again patient was referred for admission under observation status. Findings emergency room remarkable for isolated bilirubin of 2.0 otherwise her comprehensive metabolic panel is unremarkable except for a CO2 of 19 probably because of the loss of bicarbonate in the vomiting 04/13: Nausea and vomiting settled down overnight patient has remained NPO agreed to trial of clear liquids and advancing diet S: Exam Vital Signs (past 8 hours): Oxygen Delivery Method Room Air Narrative Exam Narrative: NAD, alert and oriented. Fluent speech. Lungs are clear, normal rate and effort. Heart is regular, no murmur gallop or rub. Abdomen is soft, non distended. Extremities are free of edema. Objective Labs 04/15/25 04:26 04/13/25 13:32 Labs: Laboratory Results - last 24 hr 04/15/25 04:26 WBC 6.2 RBC 3.47 L Hgb 9.0 L Hct 27.7 L MCV 80.0 MCH 26.0 MCHC 32.4 RDW 17.1 H Plt Count 191 Neut % (Auto) 41.4 L Lymph % (Auto) 43.2 H [place] % (Auto) 9.9 Eos % (Auto) 3.6 Baso % (Auto) 1.9 Neut # (Auto) 2600 Lymph # (Auto) 2700 [place] # (Auto) 600 Eos # (Auto) 200 Baso # (Auto) 100 PFSH Medical History Left corneal abrasion Headache Polycystic ovary disease Celiac disease GERD with apnea Hypertension Bipolar disorder Surgical History H/O: hysterectomy Status post tubal ligation History of section H/O abdominoplasty H/O oophorectomy H/O gastric sleeve History of cholecystectomy History of appendectomy Social History marital status: household members: significant other and children lives independently: Yes occupational status: employed Smoking Status: Never smoker alcohol intake: never substance use type: marijuana Assessment & Plan Assessment & Plan narrative: 35-year-old patient very well known to me with cyclic vomiting bile reflux into the pylorus * Placed in observation IV hydration with lactated Ringer's * IV Dilaudid 1-2 mg every 2 hours * Oral Carafate * IV Protonix * Antiemetics * Continue Topamax * Clear liquids and advance diet DVT prophylaxis: * Not indicated Code status: * Full code Time-Based Coding :: [TOTAL MINUTES] spent with patient and on the chart (including review of chart, obtaining history, exam, reviewing outside data, placing orders, documenting exam and treatment plan, and counseling patient) on [DATE].
[2025-04-15] MEDS: SODIUM CHLORIDE 0.9% FLUSH 10 ML IV ×2 (08:23→08:24)
[2025-04-15] MEDS: TOPIRAMATE 25 MG TABLET 50 MG PO (08:23)
[2025-04-15] MEDS: PANTOPRAZOLE 40 MG VIAL IV (08:23)
[2025-04-15] MEDS: HYDROMORPHONE 1 MG INJ IV (08:24)
--- NOTE | 2025-04-15 10:44 | P.DS_ITS ---
History of Present Illness History of Present Illness Chief complaint: Abd pain Narrative: From H&P: 44-year-old female had many episodes and ears of a intractable vomiting was seen a month ago for this and on endoscopy was found that she had bile reflux she had further episode evaluation revealed that she refluxes bile into the pylorus and is scheduled to have a revision of gastric bypass surgery at the end of the month. She has been on a regimen of Topamax Protonix and sucralfate and Pepto-Bismol which has been helpful. However patient for the last 24 hours has been having unrelenting bilious vomiting came to the emergency room initially seemed to respond to droperidol but then try to drink some 7 up and started vomiting again patient was referred for admission under observation status. Findings emergency room remarkable for isolated bilirubin of 2.0 otherwise her comprehensive metabolic panel is unremarkable except for a CO2 of 19 probably because of the loss of bicarbonate in the vomiting Discharge Providers Provider Date of admission: 04/13/25 18:10 Discharge Date: 04/15/25 Primary care physician: Sarah Dunbar MD Consults: None. Discharge provider: Chris Starks MD Summary Hospital Course Discharge Diagnosis: 1. cyclic vomiting bile reflux into the pylorus, improved. Hospital Course: 04/12: 44-year-old female had many episodes and ears of a intractable vomiting was seen a month ago for this and on endoscopy was found that she had bile reflux she had further episode evaluation revealed that she refluxes bile into the pylorus and is scheduled to have a revision of gastric bypass surgery at the end of the month. She has been on a regimen of Topamax Protonix and sucralfate and Pepto-Bismol which has been helpful. However patient for the last 24 hours has been having unrelenting bilious vomiting came to the emergency room initially seemed to respond to droperidol but then try to drink some 7 up and started vomiting again patient was referred for admission under observation status. Findings emergency room remarkable for isolated bilirubin of 2.0 otherwise her comprehensive metabolic panel is unremarkable except for a CO2 of 19 probably because of the loss of bicarbonate in the vomiting Hospital course: 04/13: Nausea and vomiting settled down overnight patient has remained NPO agreed to trial of clear liquids and advancing diet 04/14: She felt completely back to her baseline was able to eat without difficulty. She requested discharge home. She was currently being evaluated for gastric bypass revision at [facility] to correct her bile reflux issue. Status at Discharge Cognitive/behavioral status at discharge: oriented Functional status at discharge: independent ambulation Overall status at discharge: patient is back to baseline Time Spent with Patient Time spent: Greater than 30 minutes Exam Vital Signs (past 8 hours): Oxygen Delivery Method Room Air Narrative Exam Narrative: NAD, alert and oriented. Fluent speech. Lungs are clear, normal rate and effort. Heart is regular, no murmur gallop or rub. Abdomen is soft, non distended. Extremities are free of edema. Objective Imaging CT scan - abdomen: Radiologist's impression: Colonic diverticula. Mild wall thickening of the distal colon, decreased from prior, likely diverticulitis that is resolving. Consider colonoscopy correlation if not recently obtained. No small bowel obstruction. No drainable abscess or ascites. Trace hiatal hernia. Sleeve gastrectomy changes. Labs 04/15/25 04:26 04/13/25 13:32 Labs: Laboratory Results - last 24 hr 04/15/25 04:26 WBC 6.2 RBC 3.47 L Hgb 9.0 L Hct 27.7 L MCV 80.0 MCH 26.0 MCHC 32.4 RDW 17.1 H Plt Count 191 Neut % (Auto) 41.4 L Lymph % (Auto) 43.2 H [place] % (Auto) 9.9 Eos % (Auto) 3.6 Baso % (Auto) 1.9 Neut # (Auto) 2600 Lymph # (Auto) 2700 [place] # (Auto) 600 Eos # (Auto) 200 Baso # (Auto) 100 PFSH Medical History Left corneal abrasion Headache Polycystic ovary disease Celiac disease GERD with apnea Hypertension Bipolar disorder Surgical History H/O: hysterectomy Status post tubal ligation History of section H/O abdominoplasty H/O oophorectomy H/O gastric sleeve History of cholecystectomy History of appendectomy Social History marital status: household members: significant other and children lives independently: Yes occupational status: employed Smoking Status: Never smoker alcohol intake: never substance use type: marijuana Discharge Assessment & Plan Assessment and Plan Assessment: 1. Cyclic vomiting from bile reflux, improved. Plan of Treatment: Discharge home, she was on a good pain regimen from her primary care provider. She has refills for all medications we will continue to work with [facility] and [facility] to work towards approval for her revision of bypass. Discharge Plan Discharge Plan Patient Disposition: Home Provider Discharge Comment: Stable for discharge home. Discharge orders & Medications Prescriptions: Continued clonazepam 0.5 mg tablet 0.5 mg PO BID Qty: 60 5RF lamotrigine 100 mg tablet 100 mg PO DAILY Qty: 90 3RF promethazine 25 mg tablet 25 mg PO Q6H PRN (Reason: nausea and vomiting) Qty: 14 3RF sumatriptan succinate 6 mg/0.5 mL pen injector 6 mg SUBCUT ONCE Qty: 1 3RF Rx Instructions: may repeat dose once in 1 hour if not relieved oxycodone 5 mg tablet 5 mg PO TID PRN (Reason: pain) Qty: 90 0RF butenafine [Lotrimin Ultra] 1 % cream 1 applic topical TID topiramate [Topamax] 25 mg Tablet 50 mg PO BID Qty: 90 0RF bismuth subsalicylate [Pepto-Bismol] 262 mg/15 mL suspension 524 mg PO QID Qty: 473 0RF ondansetron 4 mg tablet,disintegrating 4 mg PO Q6H PRN (Reason: nausea and vomiting) Qty: 30 1RF pantoprazole [Protonix] 40 mg tablet,delayed release (DR/EC) 40 mg PO DAILY Qty: 60 1RF Follow up/Referrals: Sarah Dunbar MD [Primary Care Provider, Family Practice] Diet/Activity/Treatments Diet: Diet as Tolerated Visit Report/Discharge Packet Stand Alone Forms: Patient Portal/API Discharge Data Primary Care Provider: Sarha Dunbar Attending Provider: Jose Luis Mancini Admit Date/Time: 04/13/25 18:10
== END 2025-04-15 10:58 | disposition home or self-care (01) ==
LOC: ED 17:55 → AC 18:10
PROVIDERS: Admitting Provider Internal Medicine; Emergency Provider Emergency Medicine; PCP Student in an Organized Health Care Education/Training Program; Referring Provider Emergency Medicine; Visit Provider Internal Medicine
DX: R11.15 Cyclical vomiting syndrome unrelated to migraine (principal); R10.9 Unspecified abdominal pain; R09.02 Hypoxemia; K29.60 Other gastritis without bleeding; K21.9 Gastro-esophageal reflux disease without esophagitis; Z98.84 Bariatric surgery status
CPT/HCPCS: 36415; 80053; 81001; 83605; 83690; 83735; 85025; 96361; 96374; 96375; 96376; 99284; G0378; J1171; J1200; J1790; J2470

== ENCOUNTER 2025-04-28 20:03 | Emergency (ER) | payer OTHER, SELFPAY ==
[2025-04-13 19:07] VITALS: BMI 32.4
[2025-04-28 20:09] VITALS: BP 129/88; PULSE 116; TEMP 36.7; O2SAT 99
[2025-04-28 20:15] VITALS: BP 129/88; PULSE 106; RESP 18; TEMP 36.7; O2SAT 99; BMI 31.4
[2025-04-28] MEDS: diphenhydrAMINE 50 MG/ML VIAL IV (20:44)
[2025-04-28] MEDS: droPERidol 2.5 MG/ML VIAL IV (20:44)
[2025-04-28] MEDS: LACTATED RINGERS 1,000 ML 1000 ML IV (20:44)
[2025-04-28 21:23] LABS: Add Manual Diff / Slide Review NO; Hematocrit 35.1 % (36-46); Hemoglobin 11.6 g/dL (12.0-16.0); Lymphocytes Absolute Auto 3000 /uL (1100-4500); Mean Corpuscular HGB Conc 33.0 % (30-36); Mean Corpuscular Hemoglobin 25.7 PG (26-34); Mean Corpuscular Volume 78.0 fL (80-100); Platelet Count 457 X10^3/uL (150-400)
[2025-04-28 21:32] LABS: Alanine Aminotransferase 27 IU/L (<35); Albumin 4.8 g/dL (3.5-5.0); Albumin Globulin Ratio 1.6 (1.0-2.8); Alkaline Phosphatase 72 U/L (38-126); Blood Urea Nitrogen 14 mg/dL (7-17); Calcium 9.9 mg/dL (8.4-10.2); Carbon Dioxide 22 mmol/L (22-32); Chloride 107 mmol/L (98-107); Estimated Glomerular Filt Rate > 60 mL/min (>60); Globulin 3.0 g/dL (1.7-4.1); Glucose 121 mg/dL (70-99); HEMOLYSIS < 15 (0-50); Lipase 131 U/L (23-300); Potassium 3.8 mmol/L (3.4-5.1); Sodium 141 mmol/L (137-145); Total Protein 7.8 g/dL (6.3-8.2)
--- NOTE | 2025-04-29 00:41 | ED.ABDPAIN ---
HPI - Abdominal Pain General Chief Complaint: Abdominal Pain Stated Complaint: vomitting/ab pain Time Seen by Provider: 04/28/25 20:18 Source: patient and EMS Mode of arrival: EMS Related Data Home Medications ?Medication ?Instructions ?Recorded ?Confirmed butenafine 1 % topical cream 1 applic topical TID Rash on back 03/22/25 04/13/25 (Lotrimin Ultra) Previous Rx's ?Medication ?Instructions ?Recorded clonazepam 0.5 mg tablet 0.5 mg PO BID #60 tabs 03/18/25 lamotrigine 100 mg tablet 100 mg PO DAILY #90 tabs 03/18/25 promethazine 25 mg tablet 25 mg PO Q6H PRN nausea and 03/18/25 vomiting #14 tabs bismuth subsalicylate 262 mg/15 mL 524 mg (30 mL) PO QID #473 mL 03/21/25 oral suspension (Pepto-Bismol) ondansetron 4 mg disintegrating 4 mg PO Q6H PRN nausea and 03/21/25 tablet vomiting #30 tabs pantoprazole 40 mg tablet,delayed 40 mg PO DAILY #60 tabs 03/21/25 release (Protonix) topiramate 25 mg tablet (Topamax) 50 mg (2 x 25 mg) PO BID #90 tabs 03/21/25 sumatriptan succinate 6 mg/0.5 mL 6 mg (0.5 mL) SUBCUT ONCE #1 mL 04/05/25 subcutaneous pen injector oxycodone 5 mg tablet 5 mg PO TID PRN pain #90 tabs 04/14/25 Allergies Allergy/AdvReac Type Severity Reaction Status Date / Time vancomycin Allergy Intermediate ITCHING Verified 04/13/25 13:35 gluten Allergy Celiac Verified 04/13/25 13:35 NSAIDS (Non-Steroidal AdvReac Mild Gastrointestinal Verified 04/13/25 13:35 Anti-Inflamma Upset benzonatate (From Tessalon AdvReac Unknown Hives Verified 04/13/25 13:35 Perles) escitalopram (From Lexapro) AdvReac Unknown Hallucinati Verified 04/13/25 13:35 ng Review of Systems Review of Systems ROS Unobtainable: All systems reviewed & are unremarkable except as noted in HPI and below Gastrointestinal Gastrointestinal: Reports as per HPI Patient History Medical History Left corneal abrasion Headache Polycystic ovary disease Celiac disease GERD with apnea Hypertension Bipolar disorder Surgical History H/O: hysterectomy Status post tubal ligation History of section H/O abdominoplasty H/O oophorectomy H/O gastric sleeve History of cholecystectomy History of appendectomy Social History marital status: household members: significant other and children lives independently: Yes occupational status: employed alcohol intake: never substance use type: marijuana alcohol intake frequency: holidays/special occasions only Exam Narrative Exam Narrative: General: Alert and conversant. [id number] distress. Appears well nourished and well hydrated Craniofacial: No evidence of trauma. Nontender and no swelling. Lungs: Clear to auscultation with good air movement. No wheezing, rales or rhonchi. No respiratory distress Cardiac: Regular rate and rhythm with no appreciable murmur or gallop Abdomen: Soft, mild diffuse tenderness with no distention or masses. Normal bowel sounds. No rebound or guarding Musculoskeletal: Exam of the extremities, axial spine and ribcage reveals no deformity, bony tenderness or swelling. Range of motion intact Neuro: Alert and oriented. Cranial nerves, motor, sensory and cerebellar all grossly intact. No focal deficit Skin: Warm and normal color. No rashes Psychological: Normal affect and interaction. No evidence of delusion or psychosis. Normal mood. Initial Vital Signs Initial Vital Signs: Vital Signs Temperature 98.0 F 04/28/25 20:09 Pulse Rate 116 H 04/28/25 20:09 Blood Pressure 129/88 04/28/25 20:09 Pulse Oximetry 99 04/28/25 20:09 Oxygen Delivery Method Room Air 04/28/25 20:09 Course Course Course Narrative: Improved with hydromorphone and a 2nd dose of ondansetron, 8 mg. Orders Ordered: Discontinued Medications Diphenhydramine HCl (Diphenhydramine 50 Mg/Ml Vial) 50 mg IV NOW ONE Stop: 04/28/25 20:38 Last Admin: 04/28/25 20:44 Dose: 50 mg Documented By: MARY LOU Droperidol (Droperidol 2.5 Mg/Ml Vial) 2.5 mg IV NOW ONE Stop: 04/28/25 20:38 Last Admin: 04/28/25 20:44 Dose: 2.5 mg Documented By: MARY LOU Hydromorphone HCl (Hydromorphone 1 Mg/Ml Syringe) 1 mg IV NOW ONE Stop: 04/29/25 01:07 Last Admin: 04/29/25 01:15 Dose: 1 mg Documented By: HAYDEE Lactated Ringer's (Lactated Ringers) 1,000 mls @ 1,000 mls/hr IV BOLUS ONE Stop: 04/28/25 21:37 Last Infusion: 04/28/25 22:02 Dose: Infused Documented By: MARY LOU Admin: 04/28/25 20:44 Dose: 1,000 mls/hr Documented By: MARY LOU Ondansetron HCl 8 mg/ Sodium (Chloride) 54 mls @ 216 mls/hr IV NOW ONE Stop: 04/29/25 01:07 Last Infusion: 04/29/25 01:40 Dose: Infused Documented By: Admin: 04/29/25 01:15 Dose: 216 mls/hr Documented By: HAYDEE Ondansetron HCl (Ondansetron 4 Mg/2 Ml Inj) 4 mg IV NOW PRN PRN Reason: Nausea And Vomiting Vital Signs Vital signs: Vital Signs - 8 hr 04/29/25 01:49 Pulse Rate 59 L Respiratory Rate 14 Blood Pressure 107/53 L Pulse Oximetry 97 Oxygen Delivery Method Room Air MDM - Abdominal Pain Lab Data Attestation: I reviewed the patient's lab results. (WBCs 13.0. Hemoglobin 11.6. Otherwise CBC unremarkable. CMP essentially unremarkable.) 04/28/25 20:15 04/28/25 20:15 Labs: Lab Results 04/28/25 Range/Units 20:15 WBC 13.0 H (4.5-11.0) X10^3/uL RBC 4.50 (4.0-5.2) X10^6/uL Hgb 11.6 L (12.0-16.0) g/dL Hct 35.1 L (36-46) % MCV 78.0 L (80-100) fL MCH 25.7 L (26-34) PG MCHC 33.0 (30-36) % RDW 16.5 H (11.6-14.8) % Plt Count 457 H (150-400) X10^3/uL Neut % (Auto) 69.7 (50-75) % Lymph % (Auto) 22.8 L (25-40) % [place] % (Auto) 6.8 (3-14) % Eos % (Auto) 0.4 L (2-4) % Baso % (Auto) 0.3 (0-2) % Neut # (Auto) 9100 H (8168-4113) /uL Lymph # (Auto) 3000 (7472-9502) /uL [place] # (Auto) 900 (0-900) /uL Eos # (Auto) 0 (0-450) /uL Baso # (Auto) 0 (0-100) /uL Sodium 141 (137-145) mmol/L Potassium 3.8 (3.4-5.1) mmol/L Chloride 107 (98-107) mmol/L Carbon Dioxide 22 (22-32) mmol/L BUN 14 (7-17) mg/dL Creatinine 0.62 (0.52-1.04) mg/dL Estimated GFR > 60 (>60) mL/min BUN/Creatinine Ratio 22.6 H (6-22) Glucose 121 H (70-99) mg/dL Calcium 9.9 (8.4-10.2) mg/dL Total Bilirubin 1.4 H (0.2-1.3) mg/dL AST 28 (14-36) IU/L ALT 27 (<35) IU/L Alkaline Phosphatase 72 (38-126) U/L Total Protein 7.8 (6.3-8.2) g/dL Albumin 4.8 (3.5-5.0) g/dL Globulin 3.0 (1.7-4.1) g/dL Albumin/Globulin Ratio 1.6 (1.0-2.8) Lipase 131 (23-300) U/L [facility] Narrative Medical decision making narrative: Patient has chronic abdominal symptoms including abdominal pain, nausea and vomiting and has a recurrence of these problems. She is known to have bile reflux and has plans to follow up in [place] with her GI team. Do not believe she needs CT scanning today based on her response to therapy and her lab work which does show mild leukocytosis but I think that is expected with her symptoms. She feels much better and would like to be discharged home with follow up with her providers. Discharge Plan Departure Patient Disposition: Home Clinical Impression: Chronic abdominal pain, Nausea & vomiting Instructions: DI for Abdominal Pain-Adult, Nausea and Vomiting-Adult Activity Restrictions/Additional Instructions: Plan: Hydration, rest and supportive care. Continue currently prescribed medications. Contact your doctor later this morning to continue management of symptoms. Return to the ER if worse Prescriptions: No Action clonazepam 0.5 mg tablet 0.5 mg PO BID Qty: 60 5RF lamotrigine 100 mg tablet 100 mg PO DAILY Qty: 90 3RF promethazine 25 mg tablet 25 mg PO Q6H PRN (Reason: nausea and vomiting) Qty: 14 3RF sumatriptan succinate 6 mg/0.5 mL pen injector 6 mg SUBCUT ONCE Qty: 1 3RF Rx Instructions: may repeat dose once in 1 hour if not relieved oxycodone 5 mg tablet 5 mg PO TID PRN (Reason: pain) Qty: 90 0RF butenafine [Lotrimin Ultra] 1 % cream 1 applic topical TID topiramate [Topamax] 25 mg Tablet 50 mg PO BID Qty: 90 0RF bismuth subsalicylate [Pepto-Bismol] 262 mg/15 mL suspension 524 mg PO QID Qty: 473 0RF ondansetron 4 mg tablet,disintegrating 4 mg PO Q6H PRN (Reason: nausea and vomiting) Qty: 30 1RF pantoprazole [Protonix] 40 mg tablet,delayed release (DR/EC) 40 mg PO DAILY Qty: 60 1RF Referrals: Sarah Dunbar MD [Primary Care Provider, Family Practice] Stand Alone Forms: Patient Portal/API
[2025-04-29] MEDS: ONDANSETRON 8 MG in SODIUM CHLORIDE 0.9% 50 ML 216 MG IV (01:15)
[2025-04-29 01:49] VITALS: BP 107/53; PULSE 59; RESP 14; O2SAT 97
--- NOTE | 2025-04-30 09:30 | EKG_ITS ---
[address] [address] Test Date: 2025-04-30 Pat Name: Janet Escobar Department: Room: Gender: Female [employer]: : 1980 Requested By: Order Number: [id number] Reading MD: Faustino Meier Measurements Intervals [place] Rate: 100 P: 43 DE: 140 QRS: 77 QRSD: 74 T: 21 QT: 348 QTc: 448 Interpretive Statements Normal sinus rhythm Electronically Signed On 05-04-2025 14:27:40 PDT by Faustino Meier
== END 2025-04-29 02:03 | disposition home or self-care (01) ==
PROVIDERS: Family Medicine; Emergency Provider Emergency Medicine; PCP Student in an Organized Health Care Education/Training Program
DX: R10.9 Unspecified abdominal pain (principal); R11.2 Nausea with vomiting, unspecified
CPT/HCPCS: 36415; 80053; 83690; 85025; 96361; 96365; 96375; 99284; J1171; J1200; J1790; J2405

== ENCOUNTER 2025-05-18 23:45 | Emergency (ER) | payer MEDICARE, OTHER, SELFPAY ==
[2025-05-10 16:44] VITALS: BMI 30.7
[2025-05-18 23:52] VITALS: BP 138/98; PULSE 119; RESP 18; TEMP 37.2; O2SAT 96; BMI 29.0
[2025-05-19 00:10] LABS: Add Manual Diff / Slide Review NO; Hematocrit 40.5 % (36-46); Hemoglobin 13.1 g/dL (12.0-16.0); Lymphocytes Absolute Auto 3700 /uL (1100-4500); Mean Corpuscular HGB Conc 32.3 % (30-36); Mean Corpuscular Hemoglobin 25.6 PG (26-34); Mean Corpuscular Volume 79.1 fL (80-100); Platelet Count 419 X10^3/uL (150-400)
[2025-05-19 00:20] LABS: Alanine Aminotransferase 23 IU/L (<35); Albumin 5.2 g/dL (3.5-5.0); Albumin Globulin Ratio 1.7 (1.0-2.8); Alkaline Phosphatase 66 U/L (38-126); Blood Urea Nitrogen 11 mg/dL (7-17); Calcium 10.5 mg/dL (8.4-10.2); Carbon Dioxide 17 mmol/L (22-32); Chloride 107 mmol/L (98-107); Estimated Glomerular Filt Rate > 60 mL/min (>60); Globulin 3.0 g/dL (1.7-4.1); Glucose 122 mg/dL (70-99); HEMOLYSIS 16 (0-50); Lipase 122 U/L (23-300); Potassium 3.2 mmol/L (3.4-5.1); Sodium 142 mmol/L (137-145); Total Protein 8.2 g/dL (6.3-8.2)
--- NOTE | 2025-05-19 01:20 | ED.GENADULT ---
HPI - General Adult General Chief complaint: Abdominal Pain Stated complaint: N/V abd pain with bloody emesis Time Seen by Provider: 05/19/25 00:03 Source: patient and EMS Mode of arrival: EMS History of Present Illness HPI narrative: 44-year-old female with history of prior bariatric gastric bypass surgery, recurrent nausea and vomiting, history of bipolar disorder, recent admission for intractable vomiting, awaiting possible gastric bypass surgery at [facility] upcoming. Has increasing abdominal pain, some emesis blood-tinged, not responsive to her ondansetron ODT medications. Arrived by EMS, given IV Compazine during transport, improved symptoms en route. No black or red stools. No fevers or chills. Related Data Home Medications ?Medication ?Instructions ?Recorded ?Confirmed butenafine 1 % topical cream 1 applic topical TID Rash on back 03/22/25 05/17/25 (Lotrimin Ultra) Bariatric Advantage Supplements PO 05/02/25 05/17/25 Previous Rx's ?Medication ?Instructions ?Recorded clonazepam 0.5 mg tablet 0.5 mg PO BID #60 tabs 03/18/25 lamotrigine 100 mg tablet 100 mg PO DAILY #90 tabs 03/18/25 promethazine 25 mg tablet 25 mg PO Q6H PRN nausea and 03/18/25 vomiting #14 tabs bismuth subsalicylate 262 mg/15 mL 524 mg (30 mL) PO QID #473 mL 03/21/25 oral suspension (Pepto-Bismol) ondansetron 4 mg disintegrating 4 mg PO Q6H PRN nausea and 03/21/25 tablet vomiting #30 tabs pantoprazole 40 mg tablet,delayed 40 mg PO DAILY #60 tabs 03/21/25 release (Protonix) topiramate 25 mg tablet (Topamax) 50 mg (2 x 25 mg) PO BID #90 tabs 03/21/25 oxycodone 5 mg tablet 5 mg PO TID PRN pain #90 tabs 05/03/25 cephalexin 500 mg capsule 500 mg PO TID #15 caps 05/13/25 sucralfate 1 gram tablet (Carafate) 1 g PO BID #60 tabs 05/19/25 Allergies Allergy/AdvReac Type Severity Reaction Status Date / Time vancomycin Allergy Intermediate ITCHING Verified 05/18/25 23:52 gluten Allergy Celiac Verified 05/18/25 23:52 NSAIDS (Non-Steroidal AdvReac Mild Gastrointestinal Verified 05/18/25 23:52 Anti-Inflamma Upset benzonatate (From Tessalon AdvReac Unknown Hives Verified 05/18/25 23:52 Perles) escitalopram (From Lexapro) AdvReac Unknown Hallucinati Verified 05/18/25 23:52 ng Patient History Medical History (Updated 05/19/25 @ 03:52 by Nathan Dickerson MD) Bile reflux gastritis Left corneal abrasion Headache Polycystic ovary disease Celiac disease GERD with apnea Hypertension Bipolar disorder Surgical History (Updated 05/19/25 @ 03:21 by Nathan Dickerson MD) H/O: hysterectomy Status post tubal ligation History of section H/O abdominoplasty H/O oophorectomy H/O gastric sleeve History of cholecystectomy History of appendectomy Social History marital status: household members: significant other and children lives independently: Yes occupational status: employed Smoking Status: Never smoker alcohol intake: never substance use type: marijuana Smoking Status: Never smoker alcohol intake frequency: holidays/special occasions only Exam Narrative Exam Narrative: GENERAL: Well-developed patient, in mild distress. HEAD: Atraumatic. Normocephalic. EYES: Pupils equal round and reactive. Extraocular motions intact. No scleral icterus. No injection or drainage. ENT: Nose without bleeding, purulent drainage. Throat without erythema, tonsillar hypertrophy or exudate. Airway patent. NECK: Trachea midline. Non tender CARDIOVASCULAR: Regular rate and rhythm without murmurs, gallops, or rubs. RESPIRATORY: Clear to auscultation. Breath sounds equal bilaterally. No wheezes, rales, or rhonchi. GASTROINTESTINAL: Abdomen soft, non-tender, nondistended. EXTREMITIES: No edema or joint tenderness. BACK: Nontender without deformity or crepitance. No flank tenderness. NEURO: AOx3. Motor functions grossly nonfocal. SKIN: No rash or erythema of visible areas Initial Vital Signs Initial Vital Signs: Vital Signs Temperature 99 F 05/18/25 23:52 Pulse Rate 119 H 05/18/25 23:52 Respiratory Rate 18 05/18/25 23:52 Blood Pressure 138/98 H 05/18/25 23:52 Pulse Oximetry 96 05/18/25 23:52 Oxygen Delivery Method Room Air 05/18/25 23:52 Course Orders Ordered: Discontinued Medications Hydromorphone HCl (Hydromorphone Hcl 0.5 Mg/0.5 Ml Syringe) 0.5 mg IV NOW ONE Stop: 05/19/25 03:15 Last Admin: 05/19/25 03:49 Dose: 0.5 mg Documented By: SBF Sodium Chloride (Normal Saline 0.9%) 1,000 mls @ 1,000 mls/hr IV BOLUS ONE Stop: 05/19/25 02:31 Last Admin: 05/19/25 03:50 Dose: 1,000 mls/hr Documented By: SBF Pantoprazole Sodium (Pantoprazole 40 Mg Vial) 40 mg IV NOW ONE Stop: 05/19/25 01:25 Last Admin: 05/19/25 03:50 Dose: 40 mg Documented By: SBF Potassium Chloride (Potassium Chloride 20 Meq/15 Ml Udc) 40 meq PO NOW ONE Stop: 05/19/25 03:14 Last Admin: 05/19/25 03:48 Dose: 40 meq Documented By: SBF Sucralfate (Sucralfate 1 Gm Tablet) 1 gm PO ACHS BENITO Vital Signs Vital signs: Vital Signs - 8 hr 05/18/25 23:52 Temperature 99 F Pulse Rate 119 H Respiratory Rate 18 Blood Pressure 138/98 H Pulse Oximetry 96 Oxygen Delivery Method Room Air Medical Decision Making Lab Data Lab results reviewed: Yes I reviewed the patient's lab results. Lab results narrative: White blood cell count 49487, hemoglobin 13.1, platelets adequate. Glucose 112. Renal function adequate. Serum CO2 17 decreased. Potassium 3.2 decreased, sodium 142 normal. 05/18/25 23:58 05/18/25 23:58 Labs: Lab Results 05/18/25 05/18/25 Range/Units 23:38 23:58 WBC 13.0 H (4.5-11.0) X10^3/uL RBC 5.12 (4.0-5.2) X10^6/uL Hgb 13.1 (12.0-16.0) g/dL Hct 40.5 (36-46) % MCV 79.1 L (80-100) fL MCH 25.6 L (26-34) PG MCHC 32.3 (30-36) % RDW 17.7 H (11.6-14.8) % Plt Count 419 H (150-400) X10^3/uL Neut % (Auto) 58.0 (50-75) % Lymph % (Auto) 28.5 (25-40) % [place] % (Auto) 12.4 (3-14) % Eos % (Auto) 0.6 L (2-4) % Baso % (Auto) 0.5 (0-2) % Neut # (Auto) 7500 H (9441-7576) /uL Lymph # (Auto) 3700 (4590-5264) /uL [place] # (Auto) 1600 H (0-900) /uL Eos # (Auto) 100 (0-450) /uL Baso # (Auto) 100 (0-100) /uL Sodium 142 (137-145) mmol/L Potassium 3.2 L (3.4-5.1) mmol/L Chloride 107 (98-107) mmol/L Carbon Dioxide 17 L (22-32) mmol/L BUN 11 (7-17) mg/dL Creatinine 0.88 (0.52-1.04) mg/dL Estimated GFR > 60 (>60) mL/min BUN/Creatinine Ratio 12.5 (6-22) Glucose 122 H (70-99) mg/dL Calcium 10.5 H (8.4-10.2) mg/dL Total Bilirubin 2.0 H (0.2-1.3) mg/dL AST 27 (14-36) IU/L ALT 23 (<35) IU/L Alkaline Phosphatase 66 (38-126) U/L Total Protein 8.2 (6.3-8.2) g/dL Albumin 5.2 H (3.5-5.0) g/dL Globulin 3.0 (1.7-4.1) g/dL Albumin/Globulin Ratio 1.7 (1.0-2.8) Lipase 122 D (23-300) U/L HCG, Quant < 2.39 mIU/mL MDM Narrative Medical decision making narrative: 44-year-old female with history of bipolar disorder, prior remote bariatric surgery, multiple admissions for intractable vomiting, awaiting outpatient [facility] revision of her bariatric gastric bypass surgery, having nausea and vomiting, some blood streak with emesis, refractory to her home ODT Zofran regimen. EMS transport, given IV Compazine during transport, symptoms improving. Labs pending. IV Protonix dose. Initial lab results: White blood cell count 24341, hemoglobin 13.1, platelets adequate. Glucose 112. Renal function adequate. Serum CO2 17 decreased. Potassium 3.2 decreased, sodium [address] abdomen and pelvis with IV contrast. Impressions: ?no definite acute process. Similar-appearing possible hemangioma and/or fatty infiltration along the ligamentum teres. This could be confirmed by outpatient ultrasound. ? See tele radiology report. Still having pain, IV Dilaudid. Symptoms further improved. Trial of oral fluids. Took oral fluids including potassium. Feels improved. Has home supply ODT ondansetron. DC home. FU with Мария orellana as planned for possible revision gastric bypass surgery. DC home. Return precautions discussed. Discharge Plan Departure Patient Disposition: Home Clinical Impression: Nausea and vomiting, History of gastric bypass, Hypokalemia Activity Restrictions/Additional Instructions: History of previous gastric bypass, previous admissions for intractable nausea vomiting, having nausea and vomiting with some blood streak tinge component today, not responding to your usual regimen of ODT ondansetron. Awaiting possible revision surgery for your previous gastric bypass at [facility]. Symptoms improved after pre-hospital IV Compazine dose. CT abdomen and pelvis showed no acute changes. Symptoms further improved after pain medication and Carafate. Follow up with your [facility] providers as planned. Consider adding sucralfate/Carafate acid binder medication to your pantoprazole antacid regimen for now. Continue your other chronic medications as prescribed. Return earlier to this/nearest emergency department for any change worsening symptoms or any concerns prior. Prescriptions: New sucralfate [Carafate] 1 gram tablet 1 g PO BID Qty: 60 0RF No Action clonazepam 0.5 mg tablet 0.5 mg PO BID Qty: 60 5RF lamotrigine 100 mg tablet 100 mg PO DAILY Qty: 90 3RF promethazine 25 mg tablet 25 mg PO Q6H PRN (Reason: nausea and vomiting) Qty: 14 3RF oxycodone 5 mg tablet 5 mg PO TID PRN (Reason: pain) Qty: 90 0RF butenafine [Lotrimin Ultra] 1 % cream 1 applic topical TID Bariatric Advantage Supplements PO Patient Comments: Take 1 chewable tablet daily. topiramate [Topamax] 25 mg Tablet 50 mg PO BID Qty: 90 0RF bismuth subsalicylate [Pepto-Bismol] 262 mg/15 mL suspension 524 mg PO QID Qty: 473 0RF ondansetron 4 mg tablet,disintegrating 4 mg PO Q6H PRN (Reason: nausea and vomiting) Qty: 30 1RF pantoprazole [Protonix] 40 mg tablet,delayed release (DR/EC) 40 mg PO DAILY Qty: 60 1RF cephalexin 500 mg capsule 500 mg PO TID Qty: 15 0RF Referrals: Sarah Dunbar MD [Primary Care Provider, Family Practice] Stand Alone Forms: Patient Portal/API
--- NOTE | 2025-05-19 01:32 | DI.CT.S_ITS ---
PROCEDURE: CT ABDOMEN PELVIS W CON INDICATIONS: abd pain/N/V TECHNIQUE: After the administration of intravenous contrast, axial sections acquired from the lung bases to the pubic symphysis. Coronal and sagittal reformats were performed. For radiation dose reduction, the following was used: automated exposure control, adjustment of mA and/or kV according to patient size. COMPARISON: [facility], CT, CT ABDOMEN PELVIS W CON, 04/30/2025, 12:13. FINDINGS: Image quality: Diagnostic Lower chest: Unremarkable lung bases. Normal heart size. Trace hiatal hernia. Liver: Suspect focal fat adjacent to the falciform ligament similar to prior imaging. Background hepatic steatosis is also suspected. Gallbladder and biliary system: Gallbladder is absent. No biliary ductal dilation Pancreas: No ductal dilation Spleen: Nonenlarged. Cyst at the upper pole with peripheral calcifications again seen Adrenals: No discrete nodules Kidneys: No solid renal mass. No hydronephrosis. Vessels and lymph nodes: The main portal vein is patent. No abdominal aortic aneurysm. No lymph nodes enlarged by size criteria. Bowel and peritoneum: Partial gastrectomy changes. No bowel obstruction. Liquid colonic contents are present, including the rectum. No high-grade inflammatory changes. No drainable abscess or ascites. Colonic diverticula. Body wall: Unremarkable Pelvis: Heterogeneous prostate enhancement, nonspecific. Under distended urinary bladder Bones: There are degenerative changes. No aggressive appearing osseous abnormality. IMPRESSION: No high-grade bowel inflammation on CT or obstruction. There are liquid colonic contents including the rectum, correlate for diarrhea symptoms. Suspect hepatic steatosis and focal fat again seen adjacent to the falciform ligament. Other incidental and nonacute findings described above. No significant discrepancy from the preliminary report. Dictated by: Kartik Morrison M.D. on 05/19/2025 at 7:08 Approved by: Kartik Morrison M.D. on 05/19/2025 at 7:13
[2025-05-19] MEDS: POTASSIUM CHLORIDE 20 MEQ/15 ML UDC 40 MEQ PO (03:48)
[2025-05-19] MEDS: SODIUM CHLORIDE 0.9% 1,000 ML 1000 ML IV (03:50)
[2025-05-19] MEDS: PANTOPRAZOLE 40 MG VIAL IV (03:50)
[2025-05-19 03:57] VITALS: PULSE 76; O2SAT 100
[2025-05-19 04:20] LABS: HCG Quantitative /Beta subunit < 2.39 mIU/mL
== END 2025-05-19 04:21 | disposition home or self-care (01) ==
PROVIDERS: Emergency Provider Emergency Medicine; PCP Student in an Organized Health Care Education/Training Program
DX: E87.6 Hypokalemia (principal); R11.2 Nausea with vomiting, unspecified; Z98.84 Bariatric surgery status
CPT/HCPCS: 36415; 74177; 80053; 83690; 84702; 85025; 96374; 96375; 99284; J1171; J2470; Q9967

== ENCOUNTER 2025-05-30 10:23 | Observation (INO) | payer OTHER, SELFPAY ==
[2025-05-10 16:44] VITALS: BMI 30.7
[2025-05-30] VITALS (26 sets, daily range): BP systolic 122–164; BP diastolic 69–89; PULSE 45–90; RESP 3–20; TEMP 36.3–36.7; O2SAT 96–100; BMI 29.8
--- NOTE | 2025-05-30 10:57 | ED.ABDPAIN ---
HPI - Abdominal Pain General Chief Complaint: Abdominal Pain Stated Complaint: Abdominal pain and vomiting x 4 days Time Seen by Provider: 05/30/25 10:38 Source: patient, RN notes reviewed and old records reviewed Mode of arrival: Ambulatory Limitations: no limitations History of Present Illness HPI narrative: 44-year-old female with a history of bipolar disorder awaiting possible revision of her gastric bypass at [facility] for bile reflux from blind loop into the gastric atrium as a complication of her Julieta-en-Y gastric bypass patient David was recently admitted on 05/09/2025 and discharged on 05/13/2025 for acute cystitis due to pansensitive E coli with exacerbation of her chronic reflux gastritis related to her Julieta-en-Y gastric bypass. Patient states appears to be having an exacerbation of her typical symptoms. She describes his abdominal pain sort of periumbilical. Denies fevers. She has had nausea and vomiting for the past 3-4 days. She has been tried her at home medications without success. States she has had has not frequent diarrhea 6 or 7 times daily. Denies any black or bloody stools. No dysuria urgency or frequency. She has had diverticulitis in the past she states that is usually in the left side and feels very different than today's episode. Denies any other has not no bleeding or discharge. Patient states she is waiting for insurance authorization for her surgery with [facility]. Patient has several allergies reported. States her only medication changes Dr. Dunbar her primary care put her on Compazine 3 times daily. Related Data Home Medications ?Medication ?Instructions ?Recorded ?Confirmed butenafine 1 % topical cream 1 applic topical TID Rash on back 03/22/25 05/17/25 (Lotrimin Ultra) Bariatric Advantage Supplements PO 05/02/25 05/17/25 Previous Rx's ?Medication ?Instructions ?Recorded clonazepam 0.5 mg tablet 0.5 mg PO BID #60 tabs 03/18/25 lamotrigine 100 mg tablet 100 mg PO DAILY #90 tabs 03/18/25 promethazine 25 mg tablet 25 mg PO Q6H PRN nausea and 03/18/25 vomiting #14 tabs bismuth subsalicylate 262 mg/15 mL 524 mg (30 mL) PO QID #473 mL 03/21/25 oral suspension (Pepto-Bismol) ondansetron 4 mg disintegrating 4 mg PO Q6H PRN nausea and 03/21/25 tablet vomiting #30 tabs pantoprazole 40 mg tablet,delayed 40 mg PO DAILY #60 tabs 03/21/25 release (Protonix) topiramate 25 mg tablet (Topamax) 50 mg (2 x 25 mg) PO BID #90 tabs 03/21/25 oxycodone 5 mg tablet 5 mg PO TID PRN pain #90 tabs 05/03/25 cephalexin 500 mg capsule 500 mg PO TID #15 caps 05/13/25 sucralfate 1 gram tablet (Carafate) 1 g PO BID #60 tabs 05/19/25 hydrocodone 5 mg-acetaminophen 325 1 tab PO TID PRN pain #30 tabs 05/23/25 mg tablet prochlorperazine maleate 10 mg 10 mg PO TID PRN nausea and 05/23/25 tablet (Compazine) vomiting #90 tabs Allergies Allergy/AdvReac Type Severity Reaction Status Date / Time vancomycin Allergy Intermediate ITCHING Verified 05/30/25 10:40 gluten Allergy Celiac Verified 05/30/25 10:40 NSAIDS (Non-Steroidal AdvReac Mild Gastrointestinal Verified 05/30/25 10:40 Anti-Inflamma Upset benzonatate (From Tessalon AdvReac Unknown Hives Verified 05/30/25 10:40 Perlhan) escitalopram (From Lexapro) AdvReac Unknown Hallucinati Verified 05/30/25 10:40 ng Review of Systems Review of Systems ROS Unobtainable: All systems reviewed & are unremarkable except as noted in HPI and below Patient History Medical History Bile reflux gastritis Left corneal abrasion Headache Polycystic ovary disease Celiac disease GERD with apnea Hypertension Bipolar disorder Surgical History H/O: hysterectomy Status post tubal ligation History of section H/O abdominoplasty H/O oophorectomy H/O gastric sleeve History of cholecystectomy History of appendectomy Social History marital status: household members: significant other and children lives independently: Yes occupational status: employed alcohol intake: never substance use type: marijuana alcohol intake frequency: holidays/special occasions only Exam Narrative Exam Narrative: GENERAL: Alert and oriented x three, female in moderate distress HEENT: Head normocephalic, atraumatic, EOMI, pupils reactive, face symmetric, moist mucous membranes NECK: Supple, full range of motion CARDIOVASCULAR: Regular rate and rhythm without murmurs, rubs or gallops. RESPIRATORY: Breath sounds equal bilaterally, no wheezes rales or rhonchi. ABDOMEN: Soft, mild periumbilical tenderness Nondistended. Hyperactive bowel sounds all 4 quadrants. No guarding or rebound, rigidity, no mass : No CVA tenderness EXTREMITIES: Normal range of motion, no edema bilateral lower extremities. Neurovascularly intact NEUROLOGICAL: Cranial nerves II through XII grossly intact. Moving all extremities SKIN: Warm, dry, no petechiae, no rashes or lesions. Initial Vital Signs Initial Vital Signs: Vital Signs Blood Pressure 122/87 05/30/25 10:36 Course Orders Ordered: ED Orders 05/30/25 10:50 Complete Blood Count AUTO DIFF Stat Comprehensive Metabolic Panel Stat Lactate (Lactic Acid) Stat Lipase Stat 05/30/25 11:20 EKG-12 Lead Stat 05/30/25 12:36 CT abdomen pelvis w con Stat 05/30/25 14:08 Ictotest Urine Stat Urine Microscopic Stat Discontinued Medications Haloperidol (Haloperidol 5 Mg/Ml Vial) 5 mg IV NOW ONE Stop: 05/30/25 12:36 Last Admin: 05/30/25 12:55 Dose: 5 mg Documented By: SB Hydromorphone HCl (Hydromorphone 1 Mg/Ml Syringe) 1 mg IV NOW ONE Stop: 05/30/25 11:21 Last Admin: 05/30/25 12:01 Dose: 1 mg Documented By: SB Sodium Chloride (Normal Saline 0.9%) 1,000 mls @ 1,000 mls/hr IV BOLUS ONE Stop: 05/30/25 11:37 Last Infusion: 05/30/25 12:43 Dose: Infused Documented By: Admin: 05/30/25 11:05 Dose: 1,000 mls/hr Documented By: RLC Lactated Ringer's (Lactated Ringers) 1,000 mls @ 1,000 mls/hr IV BOLUS ONE Stop: 05/30/25 13:35 Last Admin: 05/30/25 12:55 Dose: 1,000 mls/hr Documented By: ZAKI Ondansetron HCl (Ondansetron 4 Mg/2 Ml Inj) 4 mg IV NOW ONE Stop: 05/30/25 10:39 Last Admin: 05/30/25 11:04 Dose: 4 mg Documented By: DEMARCUS Pantoprazole Sodium (Pantoprazole 40 Mg Vial) 40 mg IV NOW ONE Stop: 05/30/25 10:39 Last Admin: 05/30/25 11:04 Dose: 40 mg Documented By: DEMARCUS Prochlorperazine (Prochlorperazine 10 Mg/2 Ml Vial) 10 mg IV NOW ONE Stop: 05/30/25 14:57 Vital Signs Vital signs: Vital Signs - 8 hr 05/30/25 10:36 05/30/25 10:37 05/30/25 10:40 Temperature 98.0 F Pulse Rate 89 88 Respiratory Rate 18 Blood Pressure 122/87 122/87 Pulse Oximetry 99 100 Oxygen Delivery Method Room Air 05/30/25 11:02 05/30/25 11:30 05/30/25 12:00 Temperature Pulse Rate 83 90 70 Respiratory Rate 15 Blood Pressure 125/89 Pulse Oximetry 98 98 100 Oxygen Delivery Method 05/30/25 12:01 05/30/25 12:30 05/30/25 12:31 Temperature Pulse Rate 69 57 L 75 Respiratory Rate 14 20 19 Blood Pressure 164/87 H 130/86 Pulse Oximetry 100 98 99 Oxygen Delivery Method 05/30/25 13:01 05/30/25 13:30 05/30/25 14:05 Temperature Pulse Rate 68 47 L 69 Respiratory Rate 13 14 Blood Pressure Pulse Oximetry 98 96 98 Oxygen Delivery Method 05/30/25 14:06 05/30/25 14:30 05/30/25 14:31 Temperature Pulse Rate 61 51 L 49 L Respiratory Rate 3 L 16 14 Blood Pressure 162/89 H 156/73 H Pulse Oximetry 98 97 98 Oxygen Delivery Method 05/30/25 15:00 05/30/25 15:01 Temperature Pulse Rate 45 L 45 L Respiratory Rate 20 17 Blood Pressure 150/74 H Pulse Oximetry 98 98 Oxygen Delivery Method Room Air MDM - Abdominal Pain Lab Data 05/30/25 10:50 05/30/25 10:50 Labs: Lab Results 05/30/25 05/30/2505/30/25 Range/Units 10:50 12:47 14:08 WBC 7.4 (4.5-11.0) X10^3/uL RBC 4.53 (4.0-5.2) X10^6/uL Hgb 11.9 L (12.0-16.0) g/dL Hct 36.6 (36-46) % MCV 80.8 (80-100) fL MCH 26.4 (26-34) PG MCHC 32.6 (30-36) % RDW 18.1 H (11.6-14.8) % Plt Count 284 (150-400) X10^3/uL Neut % (Auto) 60.2 (50-75) % Lymph % (Auto) 29.8 (25-40) % Petroleum % (Auto) 8.5 (3-14) % Eos % (Auto) 1.1 L (2-4) % Baso % (Auto) 0.4 (0-2) % Neut # (Auto) 4400 (9223-7359) /uL Lymph # (Auto) 2200 (7216-6854) /uL Petroleum # (Auto) 600 (0-900) /uL Eos # (Auto) 100 (0-450) /uL Baso # (Auto) 0 (0-100) /uL Sodium 142 (137-145) mmol/L Potassium 3.8 (3.4-5.1) mmol/L Chloride 106 (98-107) mmol/L Carbon Dioxide 26 (22-32) mmol/L BUN 7 (7-17) mg/dL Creatinine 0.41 L (0.52-1.04) mg/dL Estimated GFR > 60 (>60) mL/min BUN/Creatinine Ratio 17.1 (6-22) Glucose 117 H (70-99) mg/dL Lactate 2.2 H 1.3 (0.7-2.1) mmol/L Calcium 9.8 (8.4-10.2) mg/dL Total Bilirubin 1.3 (0.2-1.3) mg/dL AST 45 H (14-36) IU/L ALT 45 H (<35) IU/L Alkaline Phosphatase 59 (38-126) U/L Total Protein 7.1 (6.3-8.2) g/dL Albumin 4.6 (3.5-5.0) g/dL Globulin 2.5 (1.7-4.1) g/dL Albumin/Globulin Ratio 1.8 (1.0-2.8) Lipase 214 (23-300) U/L Ur Bilirubin Confirm Negative (Negative) Urine RBC None seen (0-5/HPF) Urine WBC 0-1/hpf (0-5/HPF) Ur Squamous Epith Cells 1-5 /hpf (0-5/HPF) Urine Bacteria None seen (None) Ur Culture Indicated? Cult not indicated Vol Urine Centrifuged 10ml (spun) Point of care testing: Urine Dip Bedside Urine Glucose Negative Bedside Urine Bilirubin + 1 Bedside Urine Ketone - Negative Urine Specific [place] 1.000 Bedside Urine Occult Blood - Negative Bedside Urine pH 8.0 Bedside Urine Protein +/- 15 Bedside Urine Urobilinogen +/- 1mg Bedside Urine Nitrite - Negative Bedside Urine Leukocytes - Negative Esterase ECG Data Attestation: I personally reviewed and interpreted this ECG as follows: Prior ECG tracings: available for review Interpretation: Sinus rhythm rate of 69 [place] 134 QRS is 78 QTC 458, no acute ST elevation or depression. No acute ST changes. Patient has prior from 05/04/2025 which appears similar to today MDM Narrative Medical decision making narrative: Labs show white count 7.43 hemoglobin is 11.9 consistent with priors which have ranged from 13-9, platelets are 284. Chemistries electrolytes are appropriate creatinine 0.41, lactate was 2.2, bilirubin is appropriate, AST is 45 ALT is 45 with a alk-phos of 49 and a lipase of 214. Refill lactate 1.3. Urine EKG sinus rhythm rate of [address] abdomen pelvis again notes postsurgical changes epigastric region lower pelvis no evidence of bowel obstruction mild fecal stasis colon suggesting mild constipation. Questionable wall thickening descending colon proximal sigmoid colon versus under distended bowel loops. No abscess collection no free fluid or free air. Other findings are unchanged from study prior. Patient has simple appearing cyst in the splenic do not with peripheral rim calcification, moderate hepatic steatosis gallbladder surgically absent. Patient had fluids, Zofran, pantoprazole and pain medication. Discussed CT abdomen pelvis we will await labs as patient's vitals are overall appropriate she states this feels very similar to prior episodes she has persistent pain or is not having any improvement we will proceed with further imaging but patient has had multiple CTs in the past. On re-evaluation after medication: Patient is still quite painful but improved. She has not had any vomiting here in the department but has not felt nauseated. Discussed findings has not give any urine sample yet we will give an additional L of fluids. Patient's lactate slightly elevated because of her history and diverticulitis although the sounds like her usual episodes we will repeat CT imaging. We will also give additional dose medication patient's QTC is in the 420s, will give dose of Haldol which he is sometimes responded well to. On re-evaluation patient is still has persistent symptoms. Has had some improvement with the medication. Spoke with the hospitalist Dr. Starks, who accepts for observation after multiple doses of pain and antinausea medication for persistent symptoms. Discharge Plan Departure Patient Disposition: Admitted as Observation Clinical Impression: Intractable abdominal pain, Vomiting Admit Date/Time: 05/30/25 15:20 Admit Provider: Chris Starks
[2025-05-30 11:02] LABS: Add Manual Diff / Slide Review NO; Hematocrit 36.6 % (36-46); Hemoglobin 11.9 g/dL (12.0-16.0); Lymphocytes Absolute Auto 2200 /uL (1100-4500); Mean Corpuscular HGB Conc 32.6 % (30-36); Mean Corpuscular Hemoglobin 26.4 PG (26-34); Mean Corpuscular Volume 80.8 fL (80-100); Platelet Count 284 X10^3/uL (150-400)
[2025-05-30] MEDS: ONDANSETRON 4 MG/2 ML INJ IV (11:04)
[2025-05-30] MEDS: PANTOPRAZOLE 40 MG VIAL IV (11:04)
[2025-05-30] MEDS: SODIUM CHLORIDE 0.9% 1,000 ML 1000 ML IV (11:05)
--- NOTE | 2025-05-30 11:20 | EKG_ITS ---
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
[2025-05-30 11:24] LABS: Alanine Aminotransferase 45 IU/L (<35); Albumin 4.6 g/dL (3.5-5.0); Albumin Globulin Ratio 1.8 (1.0-2.8); Alkaline Phosphatase 59 U/L (38-126); Blood Urea Nitrogen 7 mg/dL (7-17); Calcium 9.8 mg/dL (8.4-10.2); Carbon Dioxide 26 mmol/L (22-32); Chloride 106 mmol/L (98-107); Estimated Glomerular Filt Rate > 60 mL/min (>60); Globulin 2.5 g/dL (1.7-4.1); Glucose 117 mg/dL (70-99); HEMOLYSIS < 15 (0-50); Lipase 214 U/L (23-300); Potassium 3.8 mmol/L (3.4-5.1); Sodium 142 mmol/L (137-145); Total Protein 7.1 g/dL (6.3-8.2)
[2025-05-30 11:25] LABS: Lactate (Lactic Acid) 2.2 mmol/L (0.7-2.1)
[2025-05-30 12:31] LABS: Reflexed Lactate in 2 Hours Y
--- NOTE | 2025-05-30 12:36 | DI.CT.S_ITS ---
PROCEDURE: CT ABDOMEN PELVIS W CON INDICATIONS: recurrent vomiting, hx diverticulitis, history of Julieta-en-Y TECHNIQUE: After the administration of intravenous contrast, axial sections acquired from the lung bases to the pubic symphysis. Coronal and sagittal reformats were performed. For radiation dose reduction, the following was used: automated exposure control, adjustment of mA and/or kV according to patient size. COMPARISON: [facility], CT, CT ABDOMEN PELVIS W CON, 05/19/2025, 1:50. FINDINGS: Image quality: Diagnostic. Lower Chest: No significant findings. ABDOMEN: Liver: No solid mass. Moderate hepatic steatosis is seen. Gallbladder: Gallbladder is surgically absent. Biliary ducts: No biliary dilation. Pancreas: No ductal dilation. Spleen: Size is within normal limits. Overall simple appearing cyst is seen in splenic dome with peripheral rim calcification. Adrenal Glands: No adrenal nodules. Kidneys and Ureters: No hydronephrosis. No solid mass. No complex renal cystic lesion which requires follow up. Stomach and Bowel: Postsurgical changes are noted in epigastric region from prior gastric bypass surgery. There is no bowel obstruction. No gastric or small bowel wall thickening. Surgical anastomosis in mid sigmoid colon is seen. There is questionable wall thickening involving descending colon and proximal sigmoid colon without significant pericolonic fat stranding. No other area of abnormal bowel wall thickening. No abscess collection. Peritoneum: No abnormal intraperitoneal fluid. No free air. Ventral Wall: No significant ventral hernia. Abdominal Nodes: No retroperitoneal or mesenteric adenopathy by size criteria. Vessels: Aorta and inferior vena cava are normal in size. PELVIS: Pelvic Organs: Unremarkable. Bladder: No bladder wall thickening, accounting for underdistention. Pelvic Nodes: No enlarged lymph nodes. Miscellaneous: No inguinal hernias are seen. Bones: No aggressive osseous abnormality. IMPRESSION: 1. Again noted are postsurgical changes in epigastric region and lower pelvis. No evidence of bowel obstruction. Mild fecal stasis in the colon suggestive of mild constipation. Questionable wall thickening involving descending colon and proximal sigmoid colon versus undo distended bowel loops. No abscess collection. No free fluid or free air. 2. Other findings are unchanged from prior study. Dictated by: Navarro Ceballos M.D. on 05/30/2025 at 13:36 Approved by: Navarro Ceballos M.D. on 05/30/2025 at 13:39
[2025-05-30] MEDS: HALOPERIDOL 5 MG/ML VIAL IV (12:55)
[2025-05-30] MEDS: LACTATED RINGERS 1,000 ML 1000 ML IV (12:55)
[2025-05-30 13:05] LABS: Lactate 2HR (Lactic Acid Rflx) 1.3 mmol/L (0.7-2.1)
[2025-05-30 14:46] LABS: Ictotest Urine Negative (Negative)
[2025-05-30 14:47] LABS: Culture Indicated Urine Cult Not Indicated
[2025-05-30] MEDS: PROCHLORPERAZINE 10 MG/2 ML VIAL IV (16:02)
--- NOTE | 2025-05-30 16:05 | PM.HP.1 ---
History of Present Illness History of Present Illness Date Patient Seen: 05/30/25 Time Patient Seen: 17:28 Chief complaint: Abdominal pain and vomiting x 4 days Narrative: She presents with recurrent nausea, and vomiting. She has a history of recurrent bilious vomiting which relates to complication of her previous Julieta-en-Y gastric bypass. She was currently awaiting authorization for a revision of her bypass surgery. She has been ill since about Friday with nausea and copious episodes of bilious emesis. She was epigastric abdominal pain. No hematemesis, melena, or blood per rectum. No fevers, or chills. She usually responses to Compazine and hydromorphone. [facility] Medical History Bile reflux gastritis Left corneal abrasion Headache Polycystic ovary disease Celiac disease GERD with apnea Hypertension Bipolar disorder Surgical History H/O: hysterectomy Status post tubal ligation History of section H/O abdominoplasty H/O oophorectomy H/O gastric sleeve History of cholecystectomy History of appendectomy Social History marital status: household members: significant other and children lives independently: Yes occupational status: employed Smoking Status: Never smoker alcohol intake: never substance use type: marijuana Meds Home Medications and Allergies Home Medications ?Medication ?Instructions ?Recorded ?Confirmed ?Type clonazepam 0.5 mg tablet 0.5 mg PO BID #60 tabs 03/18/25 05/30/25 Rx lamotrigine 100 mg tablet 100 mg PO DAILY #90 tabs 03/18/25 05/30/25 Rx promethazine 25 mg tablet 25 mg PO Q6H PRN nausea and 03/18/25 05/30/25 Rx vomiting #14 tabs bismuth subsalicylate 262 mg/15 mL 524 mg (30 mL) PO QID #473 mL 03/21/25 05/30/25 Rx oral suspension (Pepto-Bismol) Held on 05/30/25. Instructions: Change in level of care ondansetron 4 mg disintegrating 4 mg PO Q6H PRN nausea and 03/21/25 05/30/25 Rx tablet vomiting #30 tabs pantoprazole 40 mg tablet,delayed 40 mg PO DAILY #60 tabs 03/21/25 05/30/25 Rx release (Protonix) topiramate 25 mg tablet (Topamax) 50 mg (2 x 25 mg) PO BID #90 tabs 03/21/25 05/30/25 Rx Bariatric Advantage Supplements 1 tab PO DAILY 05/02/25 05/30/25 History sucralfate 1 gram tablet (Carafate) 1 g PO BID #60 tabs 05/19/25 05/30/25 Rx hydrocodone 5 mg-acetaminophen 325 1 tab PO TID PRN pain #30 tabs 05/23/25 05/30/25 Rx mg tablet prochlorperazine maleate 10 mg 10 mg PO TID PRN nausea and 05/23/25 05/30/25 Rx tablet (Compazine) vomiting #90 tabs Allergies Allergy/AdvReac Type Severity Reaction Status Date / Time vancomycin Allergy Intermediate ITCHING Verified 05/30/25 10:40 gluten Allergy Celiac Verified 05/30/25 10:40 NSAIDS (Non-Steroidal AdvReac Mild Gastrointestinal Verified 05/30/25 10:40 Anti-Inflamma Upset benzonatate (From Tessalon AdvReac Unknown Hives Verified 05/30/25 10:40 Perles) escitalopram (From Lexapro) AdvReac Unknown Hallucinati Verified 05/30/25 10:40 ng Review of Systems Review of Systems Narrative: All else reviewed and otherwise unremarkable except as noted in the history and physical. Exam Vital Signs (past 8 hours): - 05/30/25 10:36 05/30/25 10:37 05/30/25 10:40 Temperature 98.0 F Pulse Rate 89 88 Respiratory Rate 18 Blood Pressure 122/87 122/87 Pulse Oximetry 99 100 Oxygen Delivery Method Room Air 05/30/25 11:02 05/30/25 11:30 05/30/25 12:00 Temperature Pulse Rate 83 90 70 Respiratory Rate 15 Blood Pressure 125/89 Pulse Oximetry 98 98 100 Oxygen Delivery Method 05/30/25 12:01 05/30/25 12:30 05/30/25 12:31 Temperature Pulse Rate 69 57 L 75 Respiratory Rate 14 20 19 Blood Pressure 164/87 H 130/86 Pulse Oximetry 100 98 99 Oxygen Delivery Method 05/30/25 13:01 05/30/25 13:30 05/30/25 14:05 Temperature Pulse Rate 68 47 L 69 Respiratory Rate 13 14 Blood Pressure Pulse Oximetry 98 96 98 Oxygen Delivery Method 05/30/25 14:06 05/30/25 14:30 05/30/25 14:31 Temperature Pulse Rate 61 51 L 49 L Respiratory Rate 3 L 16 14 Blood Pressure 162/89 H 156/73 H Pulse Oximetry 98 97 98 Oxygen Delivery Method 05/30/25 15:00 05/30/25 15:01 05/30/25 16:02 Temperature Pulse Rate 45 L 45 L 56 L Respiratory Rate 20 17 Blood Pressure 150/74 H 155/69 H Pulse Oximetry 98 98 Oxygen Delivery Method Room Air Oxygen Delivery Method Room Air Narrative Exam Narrative: NAD, alert and oriented, fluent speech, she was tearful and anxious. Normocephalic skull, EOMI, anicteric sclera, symmetric pupils. Oropharynx unremarkable, no droop. Neck supple, midline trachea, no adenopathy. Lungs clear, normal rate and effort. Heart regular, no murmur gallop or rub. Abdomen is soft, non distended and non tender. Extremities are free of edema. Skin is free of rash or lesions. Joints are not swollen or deformed. Judgment appears to be normal. Objective Labs 05/30/25 10:50 05/30/25 10:50 Labs: Laboratory Results - last 24 hr 05/30/25 05/30/25 05/30/25 10:50 12:47 14:08 WBC 7.4 RBC 4.53 Hgb 11.9 L Hct 36.6 MCV 80.8 MCH 26.4 MCHC 32.6 RDW 18.1 H Plt Count 284 Neut % (Auto) 60.2 Lymph % (Auto) 29.8 [place] % (Auto) 8.5 Eos % (Auto) 1.1 L Baso % (Auto) 0.4 Neut # (Auto) 4400 Lymph # (Auto) 2200 [place] # (Auto) 600 Eos # (Auto) 100 Baso # (Auto) 0 Sodium 142 Potassium 3.8 Chloride 106 Carbon Dioxide 26 BUN 7 Creatinine 0.41 L Estimated GFR > 60 BUN/Creatinine Ratio 17.1 Glucose 117 H Lactate 2.2 H 1.3 Calcium 9.8 Total Bilirubin 1.3 AST 45 H ALT 45 H Alkaline Phosphatase 59 Total Protein 7.1 Albumin 4.6 Globulin 2.5 Albumin/Globulin Ratio 1.8 Lipase 214 Ur Bilirubin Confirm Negative Urine RBC None seen Urine WBC 0-1/hpf Ur Squamous Epith Cells 1-5 /hpf Urine Bacteria None seen Ur Culture Indicated? Cult not indicated Vol Urine Centrifuged 10ml (spun) Assessment & Plan Assessment & Plan narrative: 1. Exacerbation of chronic reflux gastritis with recurrent intractable nausea and vomiting complicating prior Julieta-en-Y gastric bypass, active. PLAN: -IV fluids and symptomatic treatment with antiemetics and anti pain medication. Anticipate 1 midnight in the hospital, supports observation status. She was full resuscitation. Her is proxy decision maker. Time-Based Coding :: 35 min spent with patient and on the chart (including review of chart, obtaining history, exam, reviewing outside data, placing orders, documenting exam and treatment plan, and counseling patient) on 05/30. Quality MIPS - Admit I confirm the patient?s Advance Care Plan is present, Code status is documented, Surrogate decision maker is in patient?s record [If Yes, STOP here]: Yes MIPS - Meds 'Current medications' to include all prescriptions, [id number] products, herbals, cannabis/cannabidiol products, and vitamin/mineral/dietary (nutritional) supplements. I have utilized all available resources to obtain, update, or review the patient?s current medications. [If Yes, STOP here]: Yes
[2025-05-30] MEDS: SODIUM CHLORIDE 0.9% 1,000 ML 100 ML IV (17:03)
[2025-05-31] MEDS: ONDANSETRON 4 MG/2 ML INJ IV ×2 (02:20→21:32)
[2025-05-31] MEDS: SODIUM CHLORIDE 0.9% 1,000 ML 100 ML IV ×3 (02:21→22:43)
[2025-05-31 05:57] VITALS: BP 157/98; PULSE 53
[2025-05-31] MEDS: PROCHLORPERAZINE 10 MG/2 ML VIAL 5 MG IV ×2 (05:57→16:09)
[2025-05-31 06:07] LABS: Add Manual Diff / Slide Review NO; Hematocrit 29.6 % (36-46); Hemoglobin 9.9 g/dL (12.0-16.0); Lymphocytes Absolute Auto 2400 /uL (1100-4500); Mean Corpuscular HGB Conc 33.3 % (30-36); Mean Corpuscular Hemoglobin 26.5 PG (26-34); Mean Corpuscular Volume 79.5 fL (80-100); Platelet Count 226 X10^3/uL (150-400)
[2025-05-31 06:23] LABS: Blood Urea Nitrogen 7 mg/dL (7-17); Calcium 8.4 mg/dL (8.4-10.2); Carbon Dioxide 26 mmol/L (22-32); Chloride 109 mmol/L (98-107); Estimated Glomerular Filt Rate > 60 mL/min (>60); Glucose 90 mg/dL (70-99); HEMOLYSIS < 15 (0-50); Potassium 3.3 mmol/L (3.4-5.1); Sodium 140 mmol/L (137-145)
[2025-05-31 09:29] VITALS: BP 141/81; PULSE 60; RESP 15; TEMP 36.2; O2SAT 96
[2025-05-31] MEDS: POTASSIUM CHLORIDE IN WATER 10 MEQ/100 ML PIGGYBACK 100 MEQ IV (10:31)
--- NOTE | 2025-05-31 11:26 | PM.PN.1 ---
Subjective Subjective Interval history: Summary: She presents with recurrent nausea, and vomiting. She has a history of recurrent bilious vomiting which relates to complication of her previous Julieta-en-Y gastric bypass. She was currently awaiting authorization for a revision of her bypass surgery. She has been ill since about Friday with nausea and copious episodes of bilious emesis. She was epigastric abdominal pain. No hematemesis, melena, or blood per rectum. No fevers, or chills. She usually responses to Compazine and hydromorphone. S: Feeling better today, still some nausea and pain. She was improving rapidly. O: NAD, alert and oriented. Fluent speech. Lungs are clear, normal rate and effort. Heart is regular, no murmur gallop or rub. Abdomen is soft, non distended. Extremities are free of edema. A/P: 1. Exacerbation of chronic reflux gastritis with recurrent intractable nausea and vomiting complicating prior Julieta-en-Y gastric bypass, active. PLAN: -continued symptomatic treatment and IV fluids. Exam Vital Signs (past 8 hours): - 05/31/25 05:57 05/31/25 09:29 Temperature 97.1 F L Pulse Rate 53 L 60 Respiratory Rate 15 Blood Pressure 157/98 H 141/81 H Pulse Oximetry 96 Oxygen Flow Rate 0 Oxygen Delivery Method Room Air Oxygen Flow Rate 0 Objective Labs 05/31/25 05:38 05/31/25 05:38 Labs: Laboratory Results - last 24 hr 05/30/25 05/30/25 05/30/25 10:50 12:47 14:08 WBC RBC Hgb Hct MCV MCH MCHC RDW Plt Count Neut % (Auto) Lymph % (Auto) [place] % (Auto) Eos % (Auto) Baso % (Auto) Neut # (Auto) Lymph # (Auto) [place] # (Auto) Eos # (Auto) Baso # (Auto) Sodium Potassium Chloride Carbon Dioxide BUN Creatinine Estimated GFR BUN/Creatinine Ratio Glucose Lactate 2.2 H 1.3 Calcium Ur Bilirubin Confirm Negative Urine RBC None seen Urine WBC 0-1/hpf Ur Squamous Epith Cells 1-5 /hpf Urine Bacteria None seen Ur Culture Indicated? Cult not indicated Vol Urine Centrifuged 10ml (spun) 05/31/25 05:38 WBC 5.9 RBC 3.72 L Hgb 9.9 L Hct 29.6 L MCV 79.5 L MCH 26.5 MCHC 33.3 RDW 17.8 H Plt Count 226 Neut % (Auto) 45.1 L Lymph % (Auto) 40.5 H [place] % (Auto) 10.4 Eos % (Auto) 3.5 Baso % (Auto) 0.5 Neut # (Auto) 2600 Lymph # (Auto) 2400 [place] # (Auto) 600 Eos # (Auto) 200 Baso # (Auto) 0 Sodium 140 Potassium 3.3 L Chloride 109 H Carbon Dioxide 26 BUN 7 Creatinine 0.37 L Estimated GFR > 60 BUN/Creatinine Ratio 18.9 Glucose 90 Lactate Calcium 8.4 Ur Bilirubin Confirm Urine RBC Urine WBC Ur Squamous Epith Cells Urine Bacteria Ur Culture Indicated? Vol Urine Centrifuged PFS Medical History Bile reflux gastritis Left corneal abrasion Headache Polycystic ovary disease Celiac disease GERD with apnea Hypertension Bipolar disorder Surgical History H/O: hysterectomy Status post tubal ligation History of section H/O abdominoplasty H/O oophorectomy H/O gastric sleeve History of cholecystectomy History of appendectomy Social History marital status: household members: significant other and children lives independently: Yes occupational status: employed Smoking Status: Never smoker alcohol intake: never substance use type: marijuana Assessment & Plan Time-Based Coding :: [TOTAL MINUTES] spent with patient and on the chart (including review of chart, obtaining history, exam, reviewing outside data, placing orders, documenting exam and treatment plan, and counseling patient) on [DATE].
--- NOTE | 2025-05-31 11:48 | CM.DANOTE ---
Initial DCP Assessment Visit Note Reviewed EMR and team rounds for pt's medical status and updates. Met with pt at bedside to introduce self and role, pt is well known to this AC/CM team due to several recent readmissions for the same concerns. Pt lives independently at baseline in her own home w/spouse and children. Her spouse will transport her home once she's been medically cleared for d/c. Payor: [facility] PCP: Dr. Dunbar Pt is a 44 year-old F with chronic reflux/pain issues secondary to her known complications from a past gastric bipass surgery. She also has a hx of recurrent diverticulitis. Pt is still waiting for her insurance to authorize her surgery to current this complication, and her Surgeon has already turned in all required tests/documents to [place] for approval. She's anticipating hearing back from [place] either today or tommorrow. As a result of this insurance delay, her surgery will now be pushed out 4-5 weeks, unfortunately. Planned focus of this admit to [facility] is pain control and symptom management of her nausea. DCP will continue to follow and assist with any further evolving needs prior to her d/c. Discharge Planning/Care Management CM Discharge Assessment Start: 05/30/25 15:50 Freq: Status: Active Protocol: Document 05/31/25 11:45 DPL (Rec: 05/31/25 11:48 DPL [id number]) Discharge Planning Assessment Assigned Discharge GIO Vázquez [employer] Insurance [place] Advance Directives? No Advance Directives No on File History Provided By Patient,Medical Record Prior Living House Arrangements Household Members significant other,children Type of Drives own vehicle transporation used prior to admit Is patient alert and Yes oriented? Caregiver for Yes: children Another Comment Patient has a bath chair to help her relax in shower if she has a migraine. Comment No anticipated home d/c needs at this time. Barriers to No Discharge Comment Home w/ spouse expected. Discharge Plan Home Transportation Spouse can transport home at d/c Arrangement Referrals Initiated None needed Additional Comment Likely outpt f/u with Surgeon. Whiteboard Updated Yes in Patient Room with name and ext. 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
[2025-05-31] MEDS: POTASSIUM CHLORIDE IN WATER 10 MEQ/100 ML PIGGYBACK 80 MEQ IV (13:10)
[2025-05-31] MEDS: POTASSIUM CHLORIDE IN WATER 10 MEQ/100 ML PIGGYBACK 75 MEQ IV ×2 (14:40→17:17)
[2025-05-31 19:00] VITALS: BP 142/82; PULSE 65; RESP 18; TEMP 36.3; O2SAT 98
[2025-06-01 03:56] VITALS: BP 155/99; PULSE 49
[2025-06-01] MEDS: PROCHLORPERAZINE 10 MG/2 ML VIAL 5 MG IV (03:56)
[2025-06-01 06:27] LABS: Add Manual Diff / Slide Review NO; Hematocrit 30.0 % (36-46); Hemoglobin 10.1 g/dL (12.0-16.0); Lymphocytes Absolute Auto 2000 /uL (1100-4500); Mean Corpuscular HGB Conc 33.8 % (30-36); Mean Corpuscular Hemoglobin 27.0 PG (26-34); Mean Corpuscular Volume 79.8 fL (80-100); Platelet Count 214 X10^3/uL (150-400)
[2025-06-01 06:41] LABS: Blood Urea Nitrogen 3 mg/dL (7-17); Calcium 8.6 mg/dL (8.4-10.2); Carbon Dioxide 26 mmol/L (22-32); Chloride 106 mmol/L (98-107); Estimated Glomerular Filt Rate > 60 mL/min (>60); Glucose 84 mg/dL (70-99); HEMOLYSIS < 15 (0-50); Potassium 3.7 mmol/L (3.4-5.1); Sodium 139 mmol/L (137-145)
[2025-06-01 07:00] VITALS: BP 145/95; PULSE 62; RESP 18; TEMP 36.4; O2SAT 99
--- NOTE | 2025-06-01 07:59 | P.PN_ITS ---
Subjective Subjective Date Patient Seen: 06/01/25 Interval history: She presents with recurrent nausea, and vomiting. She has a history of recurrent bilious vomiting which relates to complication of her previous Julieta-en-Y gastric bypass. She was currently awaiting authorization for a revision of her bypass surgery. She has been ill since about Friday with nausea and copious episodes of bilious emesis. She was epigastric abdominal pain. No hematemesis, melena, or blood per rectum. No fevers, or chills. She usually responses to Compazine and hydromorphone. S: Feeling better today, still some nausea and pain. She was improving rapidly. O: NAD, alert and oriented. Fluent speech. Lungs are clear, normal rate and effort. Heart is regular, no murmur gallop or rub. Abdomen is soft, non distended. Extremities are free of edema. A/P: 1. Exacerbation of chronic reflux gastritis with recurrent intractable nausea and vomiting complicating prior Julieta-en-Y gastric bypass, active. PLAN: -continued symptomatic treatment and IV fluids. Exam Vital Signs (past 8 hours): - 06/01/25 03:56 Pulse Rate 49 L Blood Pressure 155/99 H Oxygen Delivery Method Room Air Oxygen Flow Rate 0 Objective Labs 06/01/25 05:47 06/01/25 05:47 Labs: Laboratory Results - last 24 hr 06/01/25 05:47 WBC 5.2 RBC 3.76 L Hgb 10.1 L Hct 30.0 L MCV 79.8 L MCH 27.0 MCHC 33.8 RDW 17.6 H Plt Count 214 Neut % (Auto) 47.9 L Lymph % (Auto) 37.4 [place] % (Auto) 9.9 Eos % (Auto) 4.2 H Baso % (Auto) 0.6 Neut # (Auto) 2500 Lymph # (Auto) 2000 [place] # (Auto) 500 Eos # (Auto) 200 Baso # (Auto) 0 Sodium 139 Potassium 3.7 Chloride 106 Carbon Dioxide 26 BUN 3 L Creatinine 0.35 L Estimated GFR > 60 BUN/Creatinine Ratio 8.6 Glucose 84 Calcium 8.6 PFSH Medical History Bile reflux gastritis Left corneal abrasion Headache Polycystic ovary disease Celiac disease GERD with apnea Hypertension Bipolar disorder Surgical History H/O: hysterectomy Status post tubal ligation History of section H/O abdominoplasty H/O oophorectomy H/O gastric sleeve History of cholecystectomy History of appendectomy Social History marital status: household members: significant other and children lives independently: Yes occupational status: employed Smoking Status: Never smoker alcohol intake: never substance use type: marijuana Assessment & Plan Time-Based Coding :: [TOTAL MINUTES] spent with patient and on the chart (including review of chart, obtaining history, exam, reviewing outside data, placing orders, documenting exam and treatment plan, and counseling patient) on [DATE].
--- NOTE | 2025-06-01 10:33 | CM.DPC ---
DCP Cont. Reviewed EMR and team rounds for pt's medical status and updates. Pt has been medically cleared for home d/c. Her spouse will be transporting her home. No further CM d/c needs are identified at this time.
--- NOTE | 2025-06-01 12:05 | PM.DS.1 ---
History of Present Illness History of Present Illness Date Patient Seen: 06/01/25 Chief complaint: Abdominal pain and vomiting x 4 days Narrative: She presents with recurrent nausea, and vomiting. She has a history of recurrent bilious vomiting which relates to complication of her previous Julieta-en-Y gastric bypass. She was currently awaiting authorization for a revision of her bypass surgery. She has been ill since about Friday with nausea and copious episodes of bilious emesis. She was epigastric abdominal pain. No hematemesis, melena, or blood per rectum. No fevers, or chills. She usually responses to Compazine and hydromorphone. Discharge Providers Provider Date of admission: 05/30/25 15:20 Discharge Date: 06/01/25 Primary care physician: Sarah Dunbar MD Discharge provider: Ayah Meier MD Summary Hospital Course Hospital Course: She presented with recurrent nausea, and vomiting. She has a history of recurrent bilious vomiting which relates to complication of her previous Julieta-en-Y gastric bypass. She is currently awaiting authorization for a revision of her bypass surgery. She has been ill since about Friday with nausea and copious episodes of bilious emesis. She was epigastric abdominal pain. No hematemesis, melena, or blood per rectum. No fevers, or chills. She usually responds to Compazine and hydromorphone. S: Feeling better today, resolved nausea and pain. She improved rapidly. 1. Exacerbation of chronic bile reflux gastritis with recurrent intractable nausea and vomiting complicating prior Julieta-en-Y gastric bypass, active. -responded to symptomatic treatment and IV fluids. -upcoming gastric bypass revision surgery on July 08 -continue lamotrigine, Topamax and pantoprazole. Status at Discharge Cognitive/behavioral status at discharge: oriented Functional status at discharge: independent ambulation Overall status at discharge: patient is back to baseline Time Spent with Patient Time spent: Less than 30 minutes Exam Vital Signs (past 8 hours): - 06/01/25 07:00 Temperature 97.5 F L Pulse Rate 62 Respiratory Rate 18 Blood Pressure 145/95 H Pulse Oximetry 99 Oxygen Delivery Method Room Air Oxygen Flow Rate 0 Narrative Exam Narrative: She tolerated breakfast today. Heart is regular rate and rhythm without murmur. Lungs are clear to auscultation bilaterally. Abdomen is soft, bowel sounds positive, nontender, no organomegaly. Extremities have no ankle edema. Blood pressure has been as high as 155/99 with a heart rate of 49. Hemoglobin is 10.1. Electrolytes are normal. Objective Labs 06/01/25 05:47 06/01/25 05:47 Labs: Laboratory Results - last 24 hr 06/01/25 05:47 WBC 5.2 RBC 3.76 L Hgb 10.1 L Hct 30.0 L MCV 79.8 L MCH 27.0 MCHC 33.8 RDW 17.6 H Plt Count 214 Neut % (Auto) 47.9 L Lymph % (Auto) 37.4 [place] % (Auto) 9.9 Eos % (Auto) 4.2 H Baso % (Auto) 0.6 Neut # (Auto) 2500 Lymph # (Auto) 2000 [place] # (Auto) 500 Eos # (Auto) 200 Baso # (Auto) 0 Sodium 139 Potassium 3.7 Chloride 106 Carbon Dioxide 26 BUN 3 L Creatinine 0.35 L Estimated GFR > 60 BUN/Creatinine Ratio 8.6 Glucose 84 Calcium 8.6 PFSH Medical History Bile reflux gastritis Left corneal abrasion Headache Polycystic ovary disease Celiac disease GERD with apnea Hypertension Bipolar disorder Surgical History H/O: hysterectomy Status post tubal ligation History of section H/O abdominoplasty H/O oophorectomy H/O gastric sleeve History of cholecystectomy History of appendectomy Social History marital status: household members: significant other and children lives independently: Yes occupational status: employed Smoking Status: Never smoker alcohol intake: never substance use type: marijuana Discharge Plan Discharge Plan Patient Disposition: Home Provider Discharge Comment: Follow up with Dr. Dunbar in 1-2 weeks. Discharge orders & Medications Prescriptions: Continued prochlorperazine maleate [Compazine] 10 mg tablet 10 mg PO TID PRN (Reason: nausea and vomiting) Qty: 90 3RF hydrocodone-acetaminophen 5-325 mg tablet 1 tab PO TID PRN (Reason: pain) Qty: 30 0RF clonazepam 0.5 mg tablet 0.5 mg PO BID Qty: 60 5RF lamotrigine 100 mg tablet 100 mg PO DAILY Qty: 90 3RF promethazine 25 mg tablet 25 mg PO Q6H PRN (Reason: nausea and vomiting) Qty: 14 3RF Bariatric Advantage Supplements 1 tab PO DAILY Patient Comments: Take 1 chewable tablet daily. topiramate [Topamax] 25 mg Tablet 50 mg PO BID Qty: 90 0RF bismuth subsalicylate [Pepto-Bismol] 262 mg/15 mL suspension 524 mg PO QID Qty: 473 0RF ondansetron 4 mg tablet,disintegrating 4 mg PO Q6H PRN (Reason: nausea and vomiting) Qty: 30 1RF pantoprazole [Protonix] 40 mg tablet,delayed release (DR/EC) 40 mg PO DAILY Qty: 60 1RF sucralfate [Carafate] 1 gram tablet 1 g PO BID Qty: 60 0RF Follow up/Referrals: Sarah Dunbar MD [Primary Care Provider, Family Practice] Diet/Activity/Treatments Diet: Diet as Tolerated Visit Report/Discharge Packet Stand Alone Forms: Patient Portal/API, Stroke Signs & Symptoms Discharge Data Primary Care Provider: Sarah Dunbar Attending Provider: Chris Starks Admit Date/Time: 05/30/25 15:20
--- NOTE | 2025-06-01 12:54 | PC.NURSE ---
1200 - discharge orders reviewed and understood by pt. PIV removed. Pt discharged with pt's spouse via private vehicle. Pt escorted to the car by wheelchair.
== END 2025-06-01 12:12 | disposition home or self-care (01) ==
LOC: ED 15:13 → AC 15:20
PROVIDERS: Admitting Provider Hospitalist; Emergency Provider Emergency Medicine; PCP Student in an Organized Health Care Education/Training Program; Referring Provider Emergency Medicine; Visit Provider Hospitalist
DX: K29.50 Unspecified chronic gastritis without bleeding (principal); R10.9 Unspecified abdominal pain; R11.2 Nausea with vomiting, unspecified; T81.89XA Other complications of procedures, not elsewhere classified, initial encounter; Z98.84 Bariatric surgery status; Z98.0 Intestinal bypass and anastomosis status
CPT/HCPCS: 36415; 74177; 80048; 80053; 81003; 81015; 83605; 83690; 85025; 93005; 96361; 96365; 96366; 96375; 96376; 99284; G0378; J0780; J1171; J1630; J2405; J2470; Q9967

== ENCOUNTER 2025-06-22 14:16 | Emergency (ER) | payer OTHER, SELFPAY ==
[2025-05-30 16:53] VITALS: BMI 29.8
[2025-06-22] VITALS (12 sets, daily range): BP systolic 130–182; BP diastolic 70–124; PULSE 54–104; RESP 12–20; TEMP 36.8; O2SAT 95–99; BMI 29.0
[2025-06-22] MEDS: PROCHLORPERAZINE 10 MG/2 ML VIAL IV (15:16)
[2025-06-22 15:31] LABS: Add Manual Diff / Slide Review NO; Hematocrit 37.4 % (36-46); Hemoglobin 12.3 g/dL (12.0-16.0); Lymphocytes Absolute Auto 2800 /uL (1100-4500); Mean Corpuscular HGB Conc 33.0 % (30-36); Mean Corpuscular Hemoglobin 26.3 PG (26-34); Mean Corpuscular Volume 79.5 fL (80-100); Platelet Count 364 X10^3/uL (150-400)
[2025-06-22 15:41] LABS: Alanine Aminotransferase 33 IU/L (<35); Albumin 4.8 g/dL (3.5-5.0); Albumin Globulin Ratio 1.7 (1.0-2.8); Alkaline Phosphatase 67 U/L (38-126); Blood Urea Nitrogen 10 mg/dL (7-17); Calcium 10.0 mg/dL (8.4-10.2); Carbon Dioxide 21 mmol/L (22-32); Chloride 105 mmol/L (98-107); Estimated Glomerular Filt Rate > 60 mL/min (>60); Globulin 2.9 g/dL (1.7-4.1); Glucose 113 mg/dL (70-99); HEMOLYSIS < 15 (0-50); Lipase 80 U/L (23-300); Potassium 3.9 mmol/L (3.4-5.1); Sodium 137 mmol/L (137-145); Total Protein 7.7 g/dL (6.3-8.2)
--- NOTE | 2025-06-22 16:25 | ED.ABDPAIN ---
HPI - Abdominal Pain <Torri Chinedu, DO - Last Filed: 06/24/25 07:46> General Chief Complaint: Abdominal Pain Stated Complaint: Lower stomach pain, Vomiting 3 days Time Seen by Provider: 06/22/25 14:58 Source: patient Mode of arrival: Ambulatory History of Present Illness HPI narrative: Patient is a 44-year-old female history of chronic abdominal pain [id number], followed closely by [facility] she is actually scheduled to have a procedure done later this month. She reports that she gets bile the backs up she has been vomiting and having abdominal pain for 3 days. This is similar to previous symptoms. No fever or chills. No chest pain or shortness of breath. Related Data Home Medications ?Medication ?Instructions ?Recorded ?Confirmed Bariatric Advantage Supplements 1 tab PO DAILY 05/02/25 06/02/25 Previous Rx's ?Medication ?Instructions ?Recorded clonazepam 0.5 mg tablet 0.5 mg PO BID #60 tabs 03/18/25 lamotrigine 100 mg tablet 100 mg PO DAILY #90 tabs 03/18/25 promethazine 25 mg tablet 25 mg PO Q6H PRN nausea and 03/18/25 vomiting #14 tabs bismuth subsalicylate 262 mg/15 mL 524 mg (30 mL) PO QID #473 mL 03/21/25 oral suspension (Pepto-Bismol) ondansetron 4 mg disintegrating 4 mg PO Q6H PRN nausea and 03/21/25 tablet vomiting #30 tabs pantoprazole 40 mg tablet,delayed 40 mg PO DAILY #60 tabs 03/21/25 release (Protonix) topiramate 25 mg tablet (Topamax) 50 mg (2 x 25 mg) PO BID #90 tabs 03/21/25 sucralfate 1 gram tablet (Carafate) 1 g PO BID #60 tabs 05/19/25 prochlorperazine maleate 10 mg 10 mg PO TID PRN nausea and 05/23/25 tablet (Compazine) vomiting #90 tabs hydrocodone 5 mg-acetaminophen 325 1 tab PO TID PRN pain #90 tabs 06/02/25 mg tablet Allergies Allergy/AdvReac Type Severity Reaction Status Date / Time vancomycin Allergy Intermediate ITCHING Verified 06/02/25 09:13 gluten Allergy Celiac Verified 06/02/25 09:13 NSAIDS (Non-Steroidal AdvReac Mild Gastrointestinal Verified 06/02/25 09:13 Anti-Inflamma Upset benzonatate (From Tessalon AdvReac Unknown Hives Verified 06/02/25 09:13 Perles) escitalopram (From Lexapro) AdvReac Unknown Hallucinati Verified 06/02/25 09:13 ng Patient History <Torri Che DO - Last Filed: 06/24/25 07:46> Medical History Bile reflux gastritis Left corneal abrasion Headache Polycystic ovary disease Celiac disease GERD with apnea Hypertension Bipolar disorder Surgical History H/O: hysterectomy Status post tubal ligation History of section H/O abdominoplasty H/O oophorectomy H/O gastric sleeve History of cholecystectomy History of appendectomy Social History marital status: household members: significant other and children lives independently: Yes occupational status: employed alcohol intake: never substance use type: marijuana alcohol intake frequency: holidays/special occasions only Exam <Torri Che DO - Last Filed: 06/24/25 07:46> Initial Vital Signs Initial Vital Signs: Vital Signs Temperature 98.2 F 06/22/25 14:23 Pulse Rate 104 H 06/22/25 14:23 Respiratory Rate 20 06/22/25 14:23 Blood Pressure 182/124 H 06/22/25 14:23 Pulse Oximetry 99 06/22/25 14:23 Oxygen Delivery Method Room Air 06/22/25 14:23 GENERAL: Patient 44-year-old female appears uncomfortable and in [no acute] distress. HEENT: Head atraumatic,EOMI, pupils reactive, face symmetric, [moist] mucous membranes CARDIOVASCULAR: Regular rate and rhythm without murmurs, rubs or gallops. RESPIRATORY: Breath sounds equal bilaterally, no wheezes rales or rhonchi. ABDOMEN: Soft, tender significant distention positive bowel sounds EXTREMITIES: Normal range of motion, no clubbing or edema. Neurovascularly intact NEUROLOGICAL: Alert and oriented x4.Normal gait and speech. Cranial nerves II through XII grossly intact. SKIN: Warm, dry, no laceration, no petechiae, no rashes or lesions. <Karen Milan, DO - Last Filed: 06/23/25 01:27> Initial Vital Signs Initial Vital Signs: Vital Signs Temperature 98.2 F 06/22/25 14:23 Pulse Rate 104 H 06/22/25 14:23 Respiratory Rate 20 06/22/25 14:23 Blood Pressure 182/124 H 06/22/25 14:23 Pulse Oximetry 99 06/22/25 14:23 Oxygen Delivery Method Room Air 06/22/25 14:23 Course <Torri Che, DO - Last Filed: 06/24/25 07:46> Orders Ordered: Discontinued Medications Hydromorphone HCl (Hydromorphone 1 Mg/Ml Syringe) 1 mg IV NOW ONE Stop: 06/22/25 14:59 Last Admin: 06/22/25 15:15 Dose: 1 mg Documented By: JORGE Hydromorphone HCl (Hydromorphone 1 Mg/Ml Syringe) 1 mg IV Q2HR PRN PRN Reason: Pain, Moderate (4-6) Last Admin: 06/22/25 18:26 Dose: 1 mg Documented By: NICOLAS Sodium Chloride (Normal Saline 0.9%) 1,000 mls @ 1,000 mls/hr IV BOLUS ONE Stop: 06/22/25 16:21 Last Infusion: 06/22/25 18:33 Dose: Infused Documented By: Admin: 06/22/25 17:02 Dose: 1,000 mls/hr Documented By: NICOLAS Pantoprazole Sodium (Pantoprazole 40 Mg Vial) 40 mg IV NOW ONE Stop: 06/22/25 15:23 Last Admin: 06/22/25 16:58 Dose: 40 mg Documented By: NICOLAS Prochlorperazine (Prochlorperazine 10 Mg/2 Ml Vial) 10 mg IV NOW ONE Stop: 06/22/25 14:59 Last Admin: 06/22/25 15:16 Dose: 10 mg Documented By: JORGE Vital Signs Vital signs: Vital Signs - 8 hr 06/22/25 17:30 06/22/25 17:30 06/22/25 18:00 Pulse Rate 54 L 54 L Respiratory Rate 14 13 Blood Pressure 137/70 Pulse Oximetry 99 99 06/22/25 18:01 06/22/25 18:01 06/22/25 18:30 Pulse Rate 54 L 56 L Respiratory Rate 13 13 Blood Pressure 167/77 H Pulse Oximetry 99 95 06/22/25 18:31 06/22/25 18:31 Pulse Rate 56 L Respiratory Rate 12 Blood Pressure 130/77 Pulse Oximetry 95 <Karen Milan, DO - Last Filed: 06/23/25 01:27> Orders Ordered: Discontinued Medications Hydromorphone HCl (Hydromorphone 1 Mg/Ml Syringe) 1 mg IV NOW ONE Stop: 06/22/25 14:59 Last Admin: 06/22/25 15:15 Dose: 1 mg Documented By: JORGE Hydromorphone HCl (Hydromorphone 1 Mg/Ml Syringe) 1 mg IV Q2HR PRN PRN Reason: Pain, Moderate (4-6) Last Admin: 06/22/25 18:26 Dose: 1 mg Documented By: NICOLAS Sodium Chloride (Normal Saline 0.9%) 1,000 mls @ 1,000 mls/hr IV BOLUS ONE Stop: 06/22/25 16:21 Last Infusion: 06/22/25 18:33 Dose: Infused Documented By: Admin: 06/22/25 17:02 Dose: 1,000 mls/hr Documented By: NICOLAS Pantoprazole Sodium (Pantoprazole 40 Mg Vial) 40 mg IV NOW ONE Stop: 06/22/25 15:23 Last Admin: 06/22/25 16:58 Dose: 40 mg Documented By: NICOLAS Prochlorperazine (Prochlorperazine 10 Mg/2 Ml Vial) 10 mg IV NOW ONE Stop: 06/22/25 14:59 Last Admin: 06/22/25 15:16 Dose: 10 mg Documented By: JORGE Vital Signs Vital signs: Vital Signs - 8 hr 06/22/25 17:30 06/22/25 17:30 06/22/25 18:00 Pulse Rate 54 L 54 L Respiratory Rate 14 13 Blood Pressure 137/70 Pulse Oximetry 99 99 06/22/25 18:01 06/22/25 18:01 06/22/25 18:30 Pulse Rate 54 L 56 L Respiratory Rate 13 13 Blood Pressure 167/77 H Pulse Oximetry 99 95 06/22/25 18:31 06/22/25 18:31 Pulse Rate 56 L Respiratory Rate 12 Blood Pressure 130/77 Pulse Oximetry 95 MDM - Abdominal Pain <Torri Chinedu, DO - Last Filed: 06/24/25 07:46> Lab Data 06/22/25 15:24 06/22/25 15:24 Labs: Lab Results 06/22/25 Range/Units 15:24 WBC 8.8 (4.5-11.0) X10^3/uL RBC 4.70 (4.0-5.2) X10^6/uL Hgb 12.3 (12.0-16.0) g/dL Hct 37.4 (36-46) % MCV 79.5 L (80-100) fL MCH 26.3 (26-34) PG MCHC 33.0 (30-36) % RDW 17.1 H (11.6-14.8) % Plt Count 364 (150-400) X10^3/uL Neut % (Auto) 58.4 (50-75) % Lymph % (Auto) 32.4 (25-40) % [place] % (Auto) 8.0 (3-14) % Eos % (Auto) 0.5 L (2-4) % Baso % (Auto) 0.7 (0-2) % Neut # (Auto) 5100 (7671-4621) /uL Lymph # (Auto) 2800 (3855-1579) /uL [place] # (Auto) 700 (0-900) /uL Eos # (Auto) 0 (0-450) /uL Baso # (Auto) 100 (0-100) /uL Sodium 137 (137-145) mmol/L Potassium 3.9 (3.4-5.1) mmol/L Chloride 105 (98-107) mmol/L Carbon Dioxide 21 L (22-32) mmol/L BUN 10 (7-17) mg/dL Creatinine 0.43 L (0.52-1.04) mg/dL Estimated GFR > 60 (>60) mL/min BUN/Creatinine Ratio 23.3 H (6-22) Glucose 113 H (70-99) mg/dL Calcium 10.0 (8.4-10.2) mg/dL Total Bilirubin 1.6 H (0.2-1.3) mg/dL AST 28 (14-36) IU/L ALT 33 (<35) IU/L Alkaline Phosphatase 67 (38-126) U/L Total Protein 7.7 (6.3-8.2) g/dL Albumin 4.8 (3.5-5.0) g/dL Globulin 2.9 (1.7-4.1) g/dL Albumin/Globulin Ratio 1.7 (1.0-2.8) Lipase 80 (23-300) U/L <Karenurvashi Milan, DO - Last Filed: 06/23/25 01:27> Lab Data Labs: Lab Results 06/22/25 Range/Units 15:24 WBC 8.8 (4.5-11.0) X10^3/uL RBC 4.70 (4.0-5.2) X10^6/uL Hgb 12.3 (12.0-16.0) g/dL Hct 37.4 (36-46) % MCV 79.5 L (80-100) fL MCH 26.3 (26-34) PG MCHC 33.0 (30-36) % RDW 17.1 H (11.6-14.8) % Plt Count 364 (150-400) X10^3/uL Neut % (Auto) 58.4 (50-75) % Lymph % (Auto) 32.4 (25-40) % [place] % (Auto) 8.0 (3-14) % Eos % (Auto) 0.5 L (2-4) % Baso % (Auto) 0.7 (0-2) % Neut # (Auto) 5100 (8186-5701) /uL Lymph # (Auto) 2800 (8273-9348) /uL [place] # (Auto) 700 (0-900) /uL Eos # (Auto) 0 (0-450) /uL Baso # (Auto) 100 (0-100) /uL Sodium 137 (137-145) mmol/L Potassium 3.9 (3.4-5.1) mmol/L Chloride 105 (98-107) mmol/L Carbon Dioxide 21 L (22-32) mmol/L BUN 10 (7-17) mg/dL Creatinine 0.43 L (0.52-1.04) mg/dL Estimated GFR > 60 (>60) mL/min BUN/Creatinine Ratio 23.3 H (6-22) Glucose 113 H (70-99) mg/dL Calcium 10.0 (8.4-10.2) mg/dL Total Bilirubin 1.6 H (0.2-1.3) mg/dL AST 28 (14-36) IU/L ALT 33 (<35) IU/L Alkaline Phosphatase 67 (38-126) U/L Total Protein 7.7 (6.3-8.2) g/dL Albumin 4.8 (3.5-5.0) g/dL Globulin 2.9 (1.7-4.1) g/dL Albumin/Globulin Ratio 1.7 (1.0-2.8) Lipase 80 (23-300) U/L MDM Narrative Medical decision making narrative: Labs show white count 8.8 hemoglobin 12.3 platelets of 364. Chemistries show a CO2 of 21 creatinine of 0.43 glucose 113 bilirubin is 1.6 has been intermittently elevated above 2 in the past. AST ALT lipase are all normal. Patient has had multiple CTs in the past most recently on 05/30/2025 of her abdomen postsurgical changes at that time and some mild constipation questionable thickening involving the ascending colon proximal sigmoid colon versus undescended bowel loops. Patient received fluids, Protonix, prochlorperazine and Dilaudid. 06/22/25 Patient signed out to myself by Dr. Che. Patient is seen and evaluated by myself she states it is very similar to her prior episodes, she has received pain medicines and fluids aspirin additional dose of pain medication but states she is feeling improved and would like to discharge home. She states no urinary symptoms. She does not feel she needs a CT at this time she states she is scheduled for surgery on 07/08/2025. Discharge Plan Departure Patient Disposition: Home Clinical Impression: Vomiting, Chronic abdominal pain Activity Restrictions/Additional Instructions: I hope your surgery on July 08 goes well. Please return if you have new or worsening symptoms, any fevers, persistent vomiting, worsening or changing pain, any black or bloody stools, bloody emesis or vomiting, lightheadedness or passing out or other new or concerning changes. Prescriptions: No Action hydrocodone-acetaminophen 5-325 mg tablet 1 tab PO TID PRN (Reason: pain) Qty: 90 0RF prochlorperazine maleate [Compazine] 10 mg tablet 10 mg PO TID PRN (Reason: nausea and vomiting) Qty: 90 3RF clonazepam 0.5 mg tablet 0.5 mg PO BID Qty: 60 5RF lamotrigine 100 mg tablet 100 mg PO DAILY Qty: 90 3RF promethazine 25 mg tablet 25 mg PO Q6H PRN (Reason: nausea and vomiting) Qty: 14 3RF Bariatric Advantage Supplements 1 tab PO DAILY Patient Comments: Take 1 chewable tablet daily. topiramate [Topamax] 25 mg Tablet 50 mg PO BID Qty: 90 0RF bismuth subsalicylate [Pepto-Bismol] 262 mg/15 mL suspension 524 mg PO QID Qty: 473 0RF ondansetron 4 mg tablet,disintegrating 4 mg PO Q6H PRN (Reason: nausea and vomiting) Qty: 30 1RF pantoprazole [Protonix] 40 mg tablet,delayed release (DR/EC) 40 mg PO DAILY Qty: 60 1RF sucralfate [Carafate] 1 gram tablet 1 g PO BID Qty: 60 0RF Referrals: Sarah Dunbar MD [Primary Care Provider, Family Practice] Stand Alone Forms: Patient Portal/API
[2025-06-22] MEDS: PANTOPRAZOLE 40 MG VIAL IV (16:58)
[2025-06-22] MEDS: SODIUM CHLORIDE 0.9% 1,000 ML 1000 ML IV (17:02)
--- NOTE | 2025-06-22 17:14 | PC.NURSE ---
IV placed by LUIS Jolley
== END 2025-06-22 18:58 | disposition home or self-care (01) ==
PROVIDERS: Emergency Medicine; Emergency Provider Emergency Medicine; PCP Student in an Organized Health Care Education/Training Program
DX: R11.10 Vomiting, unspecified (principal); R10.9 Unspecified abdominal pain
CPT/HCPCS: 36415; 80053; 83690; 85025; 96361; 96374; 96375; 96376; 99284; J0780; J1171; J2470; J7030

== ENCOUNTER 2025-07-17 04:29 | Emergency (ER) | payer OTHER, SELFPAY ==
[2025-05-30 16:53] VITALS: BMI 29.8
[2025-07-17] VITALS (14 sets, daily range): BP systolic 155–180; BP diastolic 74–136; PULSE 58–124; RESP 25; TEMP 36.8; O2SAT 97–100; BMI 29.1
--- NOTE | 2025-07-17 04:39 | ED_ITS ---
HPI - Abdominal Pain
--- NOTE | 2025-07-17 04:39 | ED.ABDPAIN ---
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 Patient states that her pain started around midnight and has been increasing in nature. She describes some nausea as well and vomiting. She has taken 8 mg of Zofran at home and 10 mg of oxycodone for the pain. She denies any symptoms. No fever no chills or other symptoms. She received 75mcg intranasal fentanyl via EMS on route. Related Data Home Medications ?Medication ?Instructions ?Recorded ?Confirmed Brennen-plex 85 mg PO DAILY 07/12/25 enoxaparin 30 mg/0.3 mL 30 mg SUBCUT Q12H 07/12/25 07/12/25 subcutaneous syringe hyoscyamine sulfate 0.125 mg 0.25 mg PO Q4H PRN 07/12/25 07/12/25 sublingual tablet lisinopril 5 mg tablet 5 mg PO DAILY 07/12/25 07/12/25 methocarbamol 500 mg tablet 500 mg PO QID PRN 07/12/25 07/12/25 polyethylene glycol 3350 17 17 g PO BID 07/12/25 07/12/25 gram/dose oral powder sumatriptan succinate 100 mg tablet 100 mg PO ONCE 07/12/25 07/12/25 vitamin d-3 PO 07/12/25 Previous Rx's ?Medication ?Instructions ?Recorded clonazepam 0.5 mg tablet 0.5 mg PO BID #60 tabs 03/18/25 lamotrigine 100 mg tablet 100 mg PO DAILY #90 tabs 03/18/25 ondansetron 4 mg disintegrating 4 mg PO Q6H PRN nausea and 03/21/25 tablet vomiting #30 tabs topiramate 25 mg tablet (Topamax) 50 mg (2 x 25 mg) PO BID #90 tabs 03/21/25 prochlorperazine maleate 10 mg 10 mg PO TID PRN nausea and 05/23/25 tablet (Compazine) vomiting #90 tabs oxycodone 5 mg tablet 5 mg PO BID PRN pain #20 tabs 07/14/25 amoxicillin 875 mg-potassium 1 tab PO BID #14 tabs 07/17/25 clavulanate 125 mg tablet Allergies Allergy/AdvReac Type Severity Reaction Status Date / Time vancomycin Allergy Intermediate ITCHING Verified 07/17/25 04:36 gluten Allergy Celiac Verified 06/02/25 09:13 NSAIDS (Non-Steroidal AdvReac Mild Gastrointestinal Verified 07/17/25 04:36 Anti-Inflamma Upset benzonatate (From Tessalon AdvReac Unknown Hives Verified 07/17/25 04:36 Perles) escitalopram (From Lexapro) AdvReac Unknown Hallucinati Verified 07/17/25 04:36 ng Review of Systems <Zhen Rosa MD - Last Filed: 07/18/25 06:39> Review of Systems ROS Unobtainable: All systems reviewed & are unremarkable except as noted in HPI and below Patient History <Zhen Rosa MD - Last Filed: 07/18/25 06:39> Medical History Bile reflux gastritis Left corneal abrasion Headache Polycystic ovary disease Celiac disease GERD with apnea Hypertension Bipolar disorder Surgical History H/O: hysterectomy Status post tubal ligation History of section H/O abdominoplasty H/O oophorectomy H/O gastric sleeve History of cholecystectomy History of appendectomy Social History marital status: household members: significant other and children lives independently: Yes occupational status: employed Smoking Status: Never smoker alcohol intake: never substance use type: marijuana alcohol intake frequency: holidays/special occasions only Exam <Zhen Rosa MD - Last Filed: 07/18/25 06:39> Narrative Exam Narrative: General: Patient appears to be in acute abdominal pain, acting appropriately Head: normocephalic, atraumatic, HEENT: Pupils equal round reactive, eyes tracking well, neck supple, no JVD Heart: regular rate and rhythm, no murmurs, rubs, or gallops heard Lungs: clear to auscultation, no adventitious sounds Abdomen: soft , multiple surgical wound sites, some bruising and healing wound sites on her left side of her abdomen that are painful to palpation, no rebound or guarding, decreased bowel sounds. Neurological: no focal neurological signs, moving all extremities well, alert and oriented x3, Psych: good judgment ,good insight, mood is normal. Initial Vital Signs Initial Vital Signs: Vital Signs Pulse Rate 124 H 07/17/25 04:33 Pulse Oximetry 98 07/17/25 04:33 <Brook Lopez MD - Last Filed: 07/17/25 09:07> Initial Vital Signs Initial Vital Signs: Vital Signs Pulse Rate 124 H 07/17/25 04:33 Pulse Oximetry 98 07/17/25 04:33 Course <Zhen Rosa MD - Last Filed: 07/18/25 06:39> Orders Ordered: Discontinued Medications Hydromorphone HCl (Hydromorphone 1 Mg/Ml Syringe) 1 mg IV NOW ONE Stop: 07/17/25 04:42 Last Admin: 07/17/25 05:10 Dose: 1 mg Documented By: SERGO Hydromorphone HCl (Hydromorphone 1 Mg/Ml Syringe) 1 mg IV NOW ONE Stop: 07/17/25 06:51 Last Admin: 07/17/25 07:47 Dose: 1 mg Documented By: JORGE Ondansetron HCl (Ondansetron 4 Mg/2 Ml Inj) 4 mg IV NOW PRN PRN Reason: Nausea And Vomiting Last Admin: 07/17/25 05:09 Dose: 4 mg Documented By: SERGO Ondansetron HCl (Ondansetron 4 Mg Odt) 4 mg PO NOW PRN PRN Reason: Nausea And Vomiting Last Admin: 07/17/25 06:34 Dose: 4 mg Documented By: MACIE Prochlorperazine (Prochlorperazine 10 Mg/2 Ml Vial) 10 mg IV NOW ONE Stop: 07/17/25 06:13 Last Admin: 07/17/25 06:35 Dose: 10 mg Documented By: MACIE Vital Signs Vital signs: Vital Signs - 8 hr 07/17/25 04:33 07/17/25 04:36 07/17/25 05:00 Temperature 98.3 F Pulse Rate 124 H 118 H 98 H Respiratory Rate 25 H Blood Pressure 172/95 H Pulse Oximetry 98 99 98 Oxygen Delivery Method Room Air 07/17/25 05:30 07/17/25 05:30 07/17/25 06:00 Temperature Pulse Rate 94 H 94 H Respiratory Rate Blood Pressure 174/90 H Pulse Oximetry 100 97 Oxygen Delivery Method Room Air 07/17/25 06:00 07/17/25 06:03 07/17/25 06:03 Temperature Pulse Rate 83 Respiratory Rate Blood Pressure 172/113 H 180/112 H Pulse Oximetry 98 Oxygen Delivery Method 07/17/25 06:30 07/17/25 06:30 07/17/25 06:35 Temperature Pulse Rate 83 81 Respiratory Rate Blood Pressure 176/89 H 176/89 H Pulse Oximetry 100 Oxygen Delivery Method 07/17/25 07:00 07/17/25 07:02 07/17/25 07:02 Temperature Pulse Rate 84 94 H Respiratory Rate Blood Pressure 179/136 H Pulse Oximetry 100 100 Oxygen Delivery Method 07/17/25 07:30 07/17/25 07:30 07/17/25 08:00 Temperature Pulse Rate 58 L Respiratory Rate Blood Pressure 170/74 H 155/74 H Pulse Oximetry 100 Oxygen Delivery Method 07/17/25 08:00 Temperature Pulse Rate 67 Respiratory Rate Blood Pressure Pulse Oximetry 98 Oxygen Delivery Method <Brook Lopez MD - Last Filed: 07/17/25 09:07> Orders Ordered: Discontinued Medications Hydromorphone HCl (Hydromorphone 1 Mg/Ml Syringe) 1 mg IV NOW ONE Stop: 07/17/25 04:42 Last Admin: 07/17/25 05:10 Dose: 1 mg Documented By: SERGO Hydromorphone HCl (Hydromorphone 1 Mg/Ml Syringe) 1 mg IV NOW ONE Stop: 07/17/25 06:51 Last Admin: 07/17/25 07:47 Dose: 1 mg Documented By: JORGE Ondansetron HCl (Ondansetron 4 Mg/2 Ml Inj) 4 mg IV NOW PRN PRN Reason: Nausea And Vomiting Last Admin: 07/17/25 05:09 Dose: 4 mg Documented By: SERGO Ondansetron HCl (Ondansetron 4 Mg Odt) 4 mg PO NOW PRN PRN Reason: Nausea And Vomiting Last Admin: 07/17/25 06:34 Dose: 4 mg Documented By: MACIE Prochlorperazine (Prochlorperazine 10 Mg/2 Ml Vial) 10 mg IV NOW ONE Stop: 07/17/25 06:13 Last Admin: 07/17/25 06:35 Dose: 10 mg Documented By: MACIE Vital Signs Vital signs: Vital Signs - 8 hr 07/17/25 04:33 07/17/25 04:36 07/17/25 05:00 Temperature 98.3 F Pulse Rate 124 H 118 H 98 H Respiratory Rate 25 H Blood Pressure 172/95 H Pulse Oximetry 98 99 98 Oxygen Delivery Method Room Air 07/17/25 05:30 07/17/25 05:30 07/17/25 06:00 Temperature Pulse Rate 94 H 94 H Respiratory Rate Blood Pressure 174/90 H Pulse Oximetry 100 97 Oxygen Delivery Method Room Air 07/17/25 06:00 07/17/25 06:03 07/17/25 06:03 Temperature Pulse Rate 83 Respiratory Rate Blood Pressure 172/113 H 180/112 H Pulse Oximetry 98 Oxygen Delivery Method 07/17/25 06:30 07/17/25 06:30 07/17/25 06:35 Temperature Pulse Rate 83 81 Respiratory Rate Blood Pressure 176/89 H 176/89 H Pulse Oximetry 100 Oxygen Delivery Method 07/17/25 07:00 07/17/25 07:02 07/17/25 07:02 Temperature Pulse Rate 84 94 H Respiratory Rate Blood Pressure 179/136 H Pulse Oximetry 100 100 Oxygen Delivery Method 07/17/25 07:30 07/17/25 07:30 07/17/25 08:00 Temperature Pulse Rate 58 L Respiratory Rate Blood Pressure 170/74 H 155/74 H Pulse Oximetry 100 Oxygen Delivery Method 07/17/25 08:00 Temperature Pulse Rate 67 Respiratory Rate Blood Pressure Pulse Oximetry 98 Oxygen Delivery Method MDM - Abdominal Pain <Zhen Rosa MD - Last Filed: 07/18/25 06:39> Lab Data 07/17/25 04:50 07/17/25 04:50 Labs: Lab Results 07/17/25 Range/Units 04:50 WBC 10.6 (4.5-11.0) X10^3/uL RBC 4.48 (4.0-5.2) X10^6/uL Hgb 11.9 L (12.0-16.0) g/dL Hct 35.9 L (36-46) % MCV 80.2 (80-100) fL MCH 26.6 (26-34) PG MCHC 33.2 (30-36) % RDW 16.8 H (11.6-14.8) % Plt Count 555 H (150-400) X10^3/uL Neut % (Auto) 74.3 (50-75) % Lymph % (Auto) 17.6 L (25-40) % Rooks % (Auto) 6.5 (3-14) % Eos % (Auto) 1.0 L (2-4) % Baso % (Auto) 0.6 (0-2) % Neut # (Auto) 7900 H (8877-4134) /uL Lymph # (Auto) 1900 (4904-4559) /uL Rooks # (Auto) 700 (0-900) /uL Eos # (Auto) 100 (0-450) /uL Baso # (Auto) 100 (0-100) /uL Sodium 140 (137-145) mmol/L Potassium 4.0 (3.4-5.1) mmol/L Chloride 102 (98-107) mmol/L Carbon Dioxide 18 L (22-32) mmol/L BUN 13 (7-17) mg/dL Creatinine 0.63 (0.52-1.04) mg/dL Estimated GFR > 60 (>60) mL/min BUN/Creatinine Ratio 20.6 (6-22) Glucose 131 H (70-99) mg/dL Calcium 9.6 (8.4-10.2) mg/dL Total Bilirubin 1.3 (0.2-1.3) mg/dL AST 39 H (14-36) IU/L ALT 41 H (<35) IU/L Alkaline Phosphatase 69 (38-126) U/L Total Protein 8.1 (6.3-8.2) g/dL Albumin 5.1 H (3.5-5.0) g/dL Globulin 3.0 (1.7-4.1) g/dL Albumin/Globulin Ratio 1.7 (1.0-2.8) Lipase 35 (23-300) U/L MDM Narrative Medical decision making narrative: 44-year-old female with multiple ER visits but recent gastric bypass revision over at [facility] approximately 10 days ago on 07/08/2025 presents with pain around her surgical site. Patient awaiting her CT abdomen and pelvis results. Patient signed out to next physician Dr. Lala . <Brook Lopez MD - Last Filed: 07/17/25 09:07> Lab Data Labs: Lab Results 07/17/25 Range/Units 04:50 WBC 10.6 (4.5-11.0) X10^3/uL RBC 4.48 (4.0-5.2) X10^6/uL Hgb 11.9 L (12.0-16.0) g/dL Hct 35.9 L (36-46) % MCV 80.2 (80-100) fL MCH 26.6 (26-34) PG MCHC 33.2 (30-36) % RDW 16.8 H (11.6-14.8) % Plt Count 555 H (150-400) X10^3/uL Neut % (Auto) 74.3 (50-75) % Lymph % (Auto) 17.6 L (25-40) % Rooks % (Auto) 6.5 (3-14) % Eos % (Auto) 1.0 L (2-4) % Baso % (Auto) 0.6 (0-2) % Neut # (Auto) 7900 H (2919-4137) /uL Lymph # (Auto) 1900 (0498-1298) /uL Rooks # (Auto) 700 (0-900) /uL Eos # (Auto) 100 (0-450) /uL Baso # (Auto) 100 (0-100) /uL Sodium 140 (137-145) mmol/L Potassium 4.0 (3.4-5.1) mmol/L Chloride 102 (98-107) mmol/L Carbon Dioxide 18 L (22-32) mmol/L BUN 13 (7-17) mg/dL Creatinine 0.63 (0.52-1.04) mg/dL Estimated GFR > 60 (>60) mL/min BUN/Creatinine Ratio 20.6 (6-22) Glucose 131 H (70-99) mg/dL Calcium 9.6 (8.4-10.2) mg/dL Total Bilirubin 1.3 (0.2-1.3) mg/dL AST 39 H (14-36) IU/L ALT 41 H (<35) IU/L Alkaline Phosphatase 69 (38-126) U/L Total Protein 8.1 (6.3-8.2) g/dL Albumin 5.1 H (3.5-5.0) g/dL Globulin 3.0 (1.7-4.1) g/dL Albumin/Globulin Ratio 1.7 (1.0-2.8) Lipase 35 (23-300) U/L Imaging Data CT scan - abdomen/pelvis: Radiologist's Impression: Procedure: CT abdomen pelvis w con Ordering Provider: Zhen Rosa MD PROCEDURE: CT ABDOMEN PELVIS W CON INDICATIONS: abdominal pain s/p surgery TECHNIQUE: After the administration of intravenous contrast, axial sections acquired from the lung bases to the pubic symphysis. Coronal and sagittal reformats were performed. For radiation dose reduction, the following was used: automated exposure control, adjustment of mA and/or kV according to patient size. COMPARISON: [facility], CT, CT ABDOMEN PELVIS W CON, 05/19/2025, 1:50. [facility], CT, CT ABDOMEN PELVIS W CON, 05/30/2025, 12:59. FINDINGS: Image quality: Diagnostic. Lower Chest: No significant findings. ABDOMEN: Liver: No solid mass. Gallbladder: Absent Biliary ducts: No biliary dilation. Pancreas: No ductal dilation. Spleen: Size is within normal limits. Again noted is a large splenic cyst. Adrenal Glands: No adrenal nodules. Kidneys and Ureters: No hydronephrosis. No solid mass. No complex renal cystic lesion which requires follow up. Stomach and Bowel: Remote gastric bypass. Normal colonic caliber, without significant wall thickening. Diverticulosis. There is a degree of edema and thickening of the sigmoid, and to a lesser extent of the distal descending colon. There is also edema and thickening of the ascending colon and transverse colon. Appendectomy clips. Peritoneum: No abnormal intraperitoneal fluid. No free air. No abscess cavity. Ventral Wall: No significant ventral hernia. Extensive subcutaneous gas is related to laparoscopic surgery. There is also fluid present in the region of the ports from laparoscopic surgery in the subcutaneous fat. Abdominal Nodes: No retroperitoneal or mesenteric adenopathy by size criteria. Vessels: Aorta and inferior vena cava are normal in size. PELVIS: Pelvic Organs: Uterus is surgically absent. No adnexal masses.. Bladder: No bladder wall thickening, accounting for underdistention. Pelvic Nodes: No enlarged lymph nodes. Miscellaneous: No inguinal hernias are seen. Bones: No aggressive osseous abnormality. IMPRESSION: 1. No abscess cavity. No acute sequelae of abdominal surgery. 2. Diffuse colitis. It is relatively mild. Comment: Final report is concordant with preliminary interpretation provided by [facility]. Dictated by: Chase Steele M.D. on 07/17/2025 at 8:12 Approved by: Chase Steele M.D. on 07/17/2025 at 8:22 MDM Narrative Medical decision making narrative: 44-year-old female with multiple ER visits but recent gastric bypass revision over at [facility] approximately 10 days ago on 07/08/2025 presents with pain around her surgical site. Patient awaiting her CT abdomen and pelvis results. Patient signed out to next physician Dr. Lala . 07/17/2025, 7:43 a.m.. The patient was out to me this morning pending CT scan abdomen and pelvis. She was recently having gastric bypass surgery on 07/08/2025 and came to the hospital today for abdominal pain. I reviewed her lab results including CBC, CMP, lipase were normal. She has mild elevation AST, 39 and ALT, 41. Her CT scan abdomen and pelvis came back showed no abscess cavity. No acute sequelae of abdominal surgery. My difficile colitis. Repeat abdominal exam showed mild tenderness on palpation left lower abdomen without guarding or rebound tenderness. Well surgical healing wounds without fluctuation or surrounding erythema or discharge. She was sent home with Augmentin and to continue her pain medication. She will follow up with her surgeon on 07/20/2025. Return to the ED precautions was given. Discharge Plan Departure Patient Disposition: Home Clinical Impression: Abdominal pain, Nausea & vomiting, Colitis Instructions: DI for Abdominal Pain-Adult, DI for Colitis Activity Restrictions/Additional Instructions: Please come back to the emergency room if any worsening symptoms including but not limited to fever, persistent vomiting, dehydration, worsening pain, chest pain, shortness of breath. Please follow up your surgeon on 07/20/2025. Please continue your pain medication and nausea medication as needed. Prescriptions: New amoxicillin-pot clavulanate 875-125 mg tablet 1 tab PO BID Qty: 14 0RF No Action prochlorperazine maleate [Compazine] 10 mg tablet 10 mg PO TID PRN (Reason: nausea and vomiting) Qty: 90 3RF clonazepam 0.5 mg tablet 0.5 mg PO BID Qty: 60 5RF lamotrigine 100 mg tablet 100 mg PO DAILY Qty: 90 3RF oxycodone 5 mg tablet 5 mg PO BID PRN (Reason: pain) Qty: 20 0RF hyoscyamine sulfate 0.125 mg tablet, sublingual 0.25 mg PO Q4H PRN Rx Instructions: place 1 tablet under the tongue every 4 hours as needed for cramping enoxaparin 30 mg/0.3 mL syringe 30 mg SUBCUT Q12H Rx Instructions: Injection 0.3mls under the skin every 12 hours for 14 days. Started 07/11/25 Brennen-plex 85 mg PO DAILY methocarbamol 500 mg tablet 500 mg PO QID PRN sumatriptan succinate 100 mg tablet 100 mg PO ONCE lisinopril 5 mg tablet 5 mg PO DAILY polyethylene glycol 3350 17 gram/dose powder 17 g PO BID vitamin d-3 PO topiramate [Topamax] 25 mg Tablet 50 mg PO BID Qty: 90 0RF ondansetron 4 mg tablet,disintegrating 4 mg PO Q6H PRN (Reason: nausea and vomiting) Qty: 30 1RF Referrals: Sarah Dunbar MD [Primary Care Provider, Family Practice] Stand Alone Forms: Patient Portal/API
--- NOTE | 2025-07-17 04:53 | DI.CT.S_ITS ---
PROCEDURE: CT ABDOMEN PELVIS W CON
[2025-07-17 04:59] LABS: Add Manual Diff / Slide Review NO; Hematocrit 35.9 % (36-46); Hemoglobin 11.9 g/dL (12.0-16.0); Lymphocytes Absolute Auto 1900 /uL (1100-4500); Mean Corpuscular HGB Conc 33.2 % (30-36); Mean Corpuscular Hemoglobin 26.6 PG (26-34); Mean Corpuscular Volume 80.2 fL (80-100); Platelet Count 555 X10^3/uL (150-400)
[2025-07-17] MEDS: ONDANSETRON 4 MG/2 ML INJ IV (05:09)
[2025-07-17 05:25] LABS: Alanine Aminotransferase 41 IU/L (<35); Albumin 5.1 g/dL (3.5-5.0); Albumin Globulin Ratio 1.7 (1.0-2.8); Alkaline Phosphatase 69 U/L (38-126); Blood Urea Nitrogen 13 mg/dL (7-17); Calcium 9.6 mg/dL (8.4-10.2); Carbon Dioxide 18 mmol/L (22-32); Chloride 102 mmol/L (98-107); Estimated Glomerular Filt Rate > 60 mL/min (>60); Globulin 3.0 g/dL (1.7-4.1); Glucose 131 mg/dL (70-99); HEMOLYSIS < 15 (0-50); Lipase 35 U/L (23-300); Potassium 4.0 mmol/L (3.4-5.1); Sodium 140 mmol/L (137-145); Total Protein 8.1 g/dL (6.3-8.2)
[2025-07-17] MEDS: ONDANSETRON 4 MG ODT PO (06:34)
[2025-07-17] MEDS: PROCHLORPERAZINE 10 MG/2 ML VIAL IV (06:35)
== END 2025-07-17 09:15 | disposition home or self-care (01) ==
PROVIDERS: Emergency Provider Family Medicine; PCP Student in an Organized Health Care Education/Training Program
DX: G89.18 Other acute postprocedural pain (principal); R11.2 Nausea with vomiting, unspecified; K52.9 Noninfective gastroenteritis and colitis, unspecified; Z98.84 Bariatric surgery status
CPT/HCPCS: 36415; 74177; 80053; 83690; 85025; 96374; 96375; 96376; 99284; J0780; J1171; J2405; Q9967

== ENCOUNTER 2025-07-29 15:43 | Emergency (ER) | payer OTHER, SELFPAY ==
[2025-05-30 16:53] VITALS: BMI 29.8
[2025-07-29 15:47] VITALS: BP 179/114; PULSE 107; RESP 28; TEMP 36.6; O2SAT 99; BMI 28.3
--- NOTE | 2025-07-29 15:55 | ED.GENADULT ---
HPI - General Adult General Chief complaint: Abdominal Pain Stated complaint: Hx of recent surgery, thinks blockage in abd Time Seen by Provider: 07/29/25 15:52 Source: patient Mode of arrival: Ambulatory History of Present Illness HPI narrative: 44-year-old woman with gastric sleeve surgery converted to bypass on July 08 this year. She also had a hernia repaired with all of the surgery done at [facility]. She had been doing fairly well postop in the last 2 days with increasing pain difficulty keeping fluids down. Today she has not been able to get any liquids down, she describes a sensation that they are ?stuck? just above her stomach and then she vomits the liquid immediately. Significant pain, nausea, she notes she has passed some gas but her last bowel movement was 4 days ago. She also notes she has not been eating in that timeframe. Related Data Home Medications ?Medication ?Instructions ?Recorded ?Confirmed Brennen-plex 85 mg PO DAILY 07/12/25 07/25/25 enoxaparin 30 mg/0.3 mL 30 mg SUBCUT Q12H 07/12/25 07/25/25 subcutaneous syringe hyoscyamine sulfate 0.125 mg 0.25 mg PO Q4H PRN 07/12/25 07/25/25 sublingual tablet lisinopril 5 mg tablet 5 mg PO DAILY 07/12/25 07/25/25 methocarbamol 500 mg tablet 500 mg PO QID PRN 07/12/25 07/25/25 polyethylene glycol 3350 17 17 g PO BID 07/12/25 07/25/25 gram/dose oral powder sumatriptan succinate 100 mg tablet 100 mg PO ONCE 07/12/25 07/25/25 vitamin d-3 PO 07/12/25 07/25/25 Previous Rx's ?Medication ?Instructions ?Recorded clonazepam 0.5 mg tablet 0.5 mg PO BID #60 tabs 03/18/25 lamotrigine 100 mg tablet 100 mg PO DAILY #90 tabs 03/18/25 ondansetron 4 mg disintegrating 4 mg PO Q6H PRN nausea and 03/21/25 tablet vomiting #30 tabs topiramate 25 mg tablet (Topamax) 50 mg (2 x 25 mg) PO BID #90 tabs 03/21/25 prochlorperazine maleate 10 mg 10 mg PO TID PRN nausea and 05/23/25 tablet (Compazine) vomiting #90 tabs amoxicillin 875 mg-potassium 1 tab PO BID #14 tabs 07/17/25 clavulanate 125 mg tablet oxycodone 5 mg tablet 5 mg PO BID PRN pain #30 tabs 07/25/25 Allergies Allergy/AdvReac Type Severity Reaction Status Date / Time vancomycin Allergy Intermediate ITCHING Verified 07/29/25 15:47 gluten Allergy Celiac Verified 07/29/25 15:47 NSAIDS (Non-Steroidal AdvReac Mild Gastrointestinal Verified 07/29/25 15:47 Anti-Inflamma Upset benzonatate (From Tessalon AdvReac Unknown Hives Verified 07/29/25 15:47 Perles) escitalopram (From Lexapro) AdvReac Unknown Hallucinati Verified 07/29/25 15:47 ng Review of Systems Review of Systems Narrative: Pertinent positive and negative findings as per HPI Patient History Medical History (Updated 07/29/25 @ 23:52 by Lissa Conte MD) Abdominal pain Bile reflux gastritis Left corneal abrasion Headache Polycystic ovary disease Celiac disease GERD with apnea Hypertension Bipolar disorder Surgical History H/O: hysterectomy Status post tubal ligation History of section H/O abdominoplasty H/O oophorectomy H/O gastric sleeve History of cholecystectomy History of appendectomy Social History marital status: household members: significant other and children lives independently: Yes occupational status: employed alcohol intake: never substance use type: marijuana alcohol intake frequency: holidays/special occasions only Exam Initial Vital Signs Initial Vital Signs: Vital Signs Temperature 98 F 07/29/25 15:47 Pulse Rate 107 H 07/29/25 15:47 Respiratory Rate 28 H 07/29/25 15:47 Blood Pressure 179/114 H 07/29/25 15:47 Pulse Oximetry 99 07/29/25 15:47 Oxygen Delivery Method Room Air 07/29/25 15:47 General: Acutely ill, retching, pale, diaphoretic Respiratory: Lungs are clear to auscultation, Full and symmetrical air movement Cardiac: Tachycardic but otherwise Regular rate and rhythm no murmurs no bruits Abdomen: Soft, diffusely tender particularly in the upper abdomen. No flank pain, she does not have rebound or guarding Skin: Pale, diaphoretic Psych: Cooperative, appropriate insight and affect Course Orders Ordered: ED Orders 07/29/25 15:59 CT abdomen pelvis w con Stat 07/29/25 16:40 Complete Blood Count AUTO DIFF Stat Comprehensive Metabolic Panel Stat Lipase Stat Magnesium Stat 07/29/25 17:58 Urinalysis and Microscopic Stat Urine Culture Stat 07/29/25 18:40 Lactate (Lactic Acid) Stat Hydromorphone HCl (Hydromorphone Hcl 0.5 Mg/0.5 Ml Syringe) 0.5 mg IV Q15MIN PRN PRN Reason: Pain, Last Admin: 07/29/25 16:52 Dose: 0.5 mg Discontinued Medications Droperidol (Droperidol 2.5 Mg/Ml Vial) 0.625 mg IV NOW ONE Stop: 07/29/25 15:57 Last Admin: 07/29/25 16:53 Dose: 0.625 mg Hydromorphone HCl (Hydromorphone 1 Mg/Ml Syringe) 1 mg IV NOW ONE Stop: 07/29/25 16:53 Last Admin: 07/29/25 17:26 Dose: 1 mg Sodium Chloride (Normal Saline 0.9%) 1,000 mls @ 1,000 mls/hr IV BOLUS ONE Stop: 07/29/25 16:55 Last Infusion: 07/29/25 18:35 Dose: Infused Vital Signs Vital signs: Vital Signs - 8 hr 07/29/25 18:44 07/29/25 19:43 Pulse Rate 87 78 Respiratory Rate 18 Blood Pressure 142/87 H 121/76 Pulse Oximetry 97 98 Oxygen Delivery Method Room Air Room Air Medical Decision Making Lab Data 07/29/25 16:40 07/29/25 16:40 Labs: Lab Results 07/29/25 07/29/25 07/29/25 Range/Units 16:40 17:58 18:40 WBC 8.3 (4.5-11.0) X10^3/uL RBC 4.64 (4.0-5.2) X10^6/uL Hgb 12.3 (12.0-16.0) g/dL Hct 37.4 (36-46) % MCV 80.6 (80-100) fL MCH 26.5 (26-34) PG MCHC 32.9 (30-36) % RDW 16.5 H (11.6-14.8) % Plt Count 382 (150-400) X10^3/uL Neut % (Auto) 68.3 (50-75) % Lymph % (Auto) 22.2 L (25-40) % Williams % (Auto) 8.7 (3-14) % Eos % (Auto) 0.2 L (2-4) % Baso % (Auto) 0.6 (0-2) % Neut # (Auto) 5600 (8651-0087) /uL Lymph # (Auto) 1800 (8632-4332) /uL Williams # (Auto) 700 (0-900) /uL Eos # (Auto) 0 (0-450) /uL Baso # (Auto) 100 (0-100) /uL Sodium 142 (137-145) mmol/L Potassium 3.4 (3.4-5.1) mmol/L Chloride 103 (98-107) mmol/L Carbon Dioxide 20 L (22-32) mmol/L BUN 10 (7-17) mg/dL Creatinine 0.51 L (0.52-1.04) mg/dL Estimated GFR > 60 (>60) mL/min BUN/Creatinine Ratio 19.6 (6-22) Glucose 128 H (70-99) mg/dL Lactate 0.7 (0.7-2.1) mmol/L Calcium 9.8 (8.4-10.2) mg/dL Magnesium 1.5 L (1.6-2.3) mg/dL Total Bilirubin 1.5 H (0.2-1.3) mg/dL AST 44 H (14-36) IU/L ALT 26 (<35) IU/L Alkaline Phosphatase 67 (38-126) U/L Total Protein 7.7 (6.3-8.2) g/dL Albumin 4.9 (3.5-5.0) g/dL Globulin 2.8 (1.7-4.1) g/dL Albumin/Globulin Ratio 1.8 (1.0-2.8) Lipase 55 (23-300) U/L Urine Color Yellow Urine Appearance Clear Urine pH 6.5 (4.5-8.0) Ur Specific Colmar 1.010 (1.000-1.035) Urine Protein Negative (Negative) Urine Glucose (UA) Negative (Negative) g/dL Urine Ketones 3+ H (NEGATIVE) Urine Occult Blood Negative (Negative) Urine Nitrate Positive H (Negative) Urine Bilirubin Negative (NEGATIVE) Urine Urobilinogen 0.2 (0.2) E.U./dL Ur Leukocyte Esterase Negative (NEGATIVE) Urine RBC None seen (0-5/HPF) Urine WBC 0-1/hpf (0-5/HPF) Ur Squamous Epith Cells 0-1 /hpf (0-5/HPF) Urine Bacteria Many (>30) H (None) Ur Culture Indicated? Specimen cultured Vol Urine Centrifuged 10ml (spun) Imaging Data CT scan - abdomen/pelvis: Radiologist's Impression: PROCEDURE: CT ABDOMEN PELVIS W CON INDICATIONS: abdominal pain TECHNIQUE: After the administration of intravenous contrast, axial sections acquired from the lung bases to the pubic symphysis. Coronal and sagittal reformats were performed. For radiation dose reduction, the following was used: automated exposure control, adjustment of mA and/or kV according to patient size. COMPARISON: [facility], CT, CT ABDOMEN PELVIS W CON, 07/17/2025, 4:59. [facility], CT, CT ABDOMEN PELVIS W CON, 05/30/2025, 12:59. FINDINGS: Image quality: Diagnostic. Lower Chest: No significant findings. ABDOMEN: Liver: No solid mass. Hepatic steatosis. Gallbladder: Surgically absent. Biliary ducts: No biliary dilation. Pancreas: No ductal dilation. Spleen: Redemonstration of large splenic cyst with peripheral calcifications. Adrenal Glands: No adrenal nodules. Kidneys and Ureters: No hydronephrosis. No solid mass. No complex renal cystic lesion which requires follow up. Stomach and Bowel: Stable postsurgical changes of remote gastric bypass. Small hiatal hernia. Moderate fecal burden seen in the distal colon and rectum. Mild persistent circumferential wall thickening of the distal colon. Colonic diverticulosis without acute diverticulitis. Stable postsurgical changes of the right colon and distal sigmoid colon. Stable appearance of minimal stranding adjacent to the proximal ascending colon. No evidence for small bowel obstruction or associated inflammatory changes. Peritoneum: No abnormal intraperitoneal fluid. No free air. Ventral Wall: Previously seen subcutaneous soft tissue gas has resolved. Expected postsurgical changes of the ventral abdomen at the laparoscopic port sites. No organized fluid collection identified. Stable diastasis recti. Abdominal Nodes: No retroperitoneal or mesenteric adenopathy by size criteria. Vessels: Aorta and inferior vena cava are normal in size. PELVIS: Pelvic Organs: Unremarkable. Bladder: No bladder wall thickening, accounting for underdistention. Pelvic Nodes: No enlarged lymph nodes. Miscellaneous: No inguinal hernias are seen. Bones: No aggressive osseous abnormality. Visualized osseous structures appear intact without acute fracture or focal destructive lesion. No acute compression fractures of the imaged spine. IMPRESSION: Mild persistent circumferential wall thickening of the colon with mild pericolonic stranding. Findings may represent mild colitis either infectious or inflammatory in etiology. No evidence for acute diverticulitis. No evidence for small bowel obstruction. Moderate fecal burden in the distal colon and rectum. Interval improvement of previously described postoperative changes of the ventral abdomen from recent laparoscopic surgery. No evidence for abscess formation . Other chronic/non-acute findings as above. Dictated by: Gurvinder Mckeon M.D. on 07/29/2025 at 18:41 MDM Narrative Medical decision making narrative: 44-year-old woman post gastric bypass surgery on July 08 with increasing abdominal pain nausea and vomiting for the last 3 days and the last 12 hours has been unable to get any liquids to even seemingly get into her stomach. Differential includes postoperative swelling, surgical complication, gastroenteritis, uncontrolled pain On exam she is retching violently, pale diaphoretic from the work of retching. Abdomen is diffusely tender without rebound or guarding Labs: CBC is reassuring Chemistries show appropriate renal function. Magnesium is minimally low at 1.6. Liver studies are unremarkable Lipase is reassuring CT scan of the abdomen is done shows interval improvement of her recent postoperative changes. Mild persistent circumferential wall thickening of the colon with mild pericolonic stranding. This is her 18th CT scan of the abdomen this year alone In [address] scans of her abdomen After fluids, Dilaudid and a nap seen she is doing much better. Diaphoresis has resolved, retching has resolved, she is able to keep liquids down. She has follow up with her surgeon scheduled. She would like to be discharged home and I believe that is safe. Discharge Plan Departure Patient Disposition: Home Clinical Impression: Abdominal pain Qualifiers: Abdominal location: generalized Qualified Code(s): R10.84 - Generalized abdominal pain Instructions: DI for Abdominal Pain-Adult Activity Restrictions/Additional Instructions: Thank you for coming in today With fluids, nausea medication and pain control, you have gotten much better. You were able to keep fluids down Your lab work was reassuring Your CT scan showed the postoperative changes improving, some mild colitis that is still seems to be improving as well In reviewing your imaging studies, you have had 18 scans of your abdomen this year, 11 of your abdomen last year. There is significant concern for secondary consequences of the radiation from this amount of CT imaging. With any future ER visits for abdominal pain, please consider discussing treatment and observation prior to immediate CT scans If you find that you are getting worse or develop any new symptoms, please feel free to return to the emergency department for further evaluation. Prescriptions: No Action prochlorperazine maleate [Compazine] 10 mg tablet 10 mg PO TID PRN (Reason: nausea and vomiting) Qty: 90 3RF oxycodone 5 mg tablet 5 mg PO BID PRN (Reason: pain) Qty: 30 0RF clonazepam 0.5 mg tablet 0.5 mg PO BID Qty: 60 5RF lamotrigine 100 mg tablet 100 mg PO DAILY Qty: 90 3RF hyoscyamine sulfate 0.125 mg tablet, sublingual 0.25 mg PO Q4H PRN Rx Instructions: place 1 tablet under the tongue every 4 hours as needed for cramping enoxaparin 30 mg/0.3 mL syringe 30 mg SUBCUT Q12H Rx Instructions: Injection 0.3mls under the skin every 12 hours for 14 days. Started 07/11/25 Brennen-plex 85 mg PO DAILY methocarbamol 500 mg tablet 500 mg PO QID PRN sumatriptan succinate 100 mg tablet 100 mg PO ONCE lisinopril 5 mg tablet 5 mg PO DAILY polyethylene glycol 3350 17 gram/dose powder 17 g PO BID vitamin d-3 PO topiramate [Topamax] 25 mg Tablet 50 mg PO BID Qty: 90 0RF ondansetron 4 mg tablet,disintegrating 4 mg PO Q6H PRN (Reason: nausea and vomiting) Qty: 30 1RF amoxicillin-pot clavulanate 875-125 mg tablet 1 tab PO BID Qty: 14 0RF Referrals: Sarah Dunbar MD [Primary Care Provider, Family Practice] Stand Alone Forms: Patient Portal/API
--- NOTE | 2025-07-29 15:59 | DI.CT.S_ITS ---
PROCEDURE: CT ABDOMEN PELVIS W CON INDICATIONS: abdominal pain TECHNIQUE: After the administration of intravenous contrast, axial sections acquired from the lung bases to the pubic symphysis. Coronal and sagittal reformats were performed. For radiation dose reduction, the following was used: automated exposure control, adjustment of mA and/or kV according to patient size. COMPARISON: [facility], CT, CT ABDOMEN PELVIS W CON, 07/17/2025, 4:59. [facility], CT, CT ABDOMEN PELVIS W CON, 05/30/2025, 12:59. FINDINGS: Image quality: Diagnostic. Lower Chest: No significant findings. ABDOMEN: Liver: No solid mass. Hepatic steatosis. Gallbladder: Surgically absent. Biliary ducts: No biliary dilation. Pancreas: No ductal dilation. Spleen: Redemonstration of large splenic cyst with peripheral calcifications. Adrenal Glands: No adrenal nodules. Kidneys and Ureters: No hydronephrosis. No solid mass. No complex renal cystic lesion which requires follow up. Stomach and Bowel: Stable postsurgical changes of remote gastric bypass. Small hiatal hernia. Moderate fecal burden seen in the distal colon and rectum. Mild persistent circumferential wall thickening of the distal colon. Colonic diverticulosis without acute diverticulitis. Stable postsurgical changes of the right colon and distal sigmoid colon. Stable appearance of minimal stranding adjacent to the proximal ascending colon. No evidence for small bowel obstruction or associated inflammatory changes. Peritoneum: No abnormal intraperitoneal fluid. No free air. Ventral Wall: Previously seen subcutaneous soft tissue gas has resolved. Expected postsurgical changes of the ventral abdomen at the laparoscopic port sites. No organized fluid collection identified. Stable diastasis recti. Abdominal Nodes: No retroperitoneal or mesenteric adenopathy by size criteria. Vessels: Aorta and inferior vena cava are normal in size. PELVIS: Pelvic Organs: Unremarkable. Bladder: No bladder wall thickening, accounting for underdistention. Pelvic Nodes: No enlarged lymph nodes. Miscellaneous: No inguinal hernias are seen. Bones: No aggressive osseous abnormality. Visualized osseous structures appear intact without acute fracture or focal destructive lesion. No acute compression fractures of the imaged spine. IMPRESSION: Mild persistent circumferential wall thickening of the colon with mild pericolonic stranding. Findings may represent mild colitis either infectious or inflammatory in etiology. No evidence for acute diverticulitis. No evidence for small bowel obstruction. Moderate fecal burden in the distal colon and rectum. Interval improvement of previously described postoperative changes of the ventral abdomen from recent laparoscopic surgery. No evidence for abscess formation . Other chronic/non-acute findings as above. Dictated by: Gurvinder Mckeon M.D. on 07/29/2025 at 18:41 Approved by: Gurvinder Mckeon M.D. on 07/29/2025 at 18:48
[2025-07-29] MEDS: SODIUM CHLORIDE 0.9% 1,000 ML 1000 ML IV (16:52)
[2025-07-29] MEDS: droPERidol 2.5 MG/ML VIAL 0.625 MG IV (16:53)
[2025-07-29 18:08] LABS: Appearance Urine UA CLEAR; Bilirubin Urine UA NEGATIVE (NEGATIVE); Color Urine UA YELLOW; Glucose Urine UA NEGATIVE (Negative); Ketones Urine UA 3+ (NEGATIVE); Leukocyte Esterase Urine UA NEGATIVE (NEGATIVE); Nitrite Urine UA POSITIVE (Negative); Occult Blood Urine UA NEGATIVE (Negative); Protein Urine UA NEGATIVE (Negative); Specific Gravity Urine UA 1.010 (1.000-1.035); Urobilinogen Urine UA 0.2 E.U./dL (0.2); pH Urine UA 6.5 (4.5-8.0)
[2025-07-29 18:13] LABS: Add Manual Diff / Slide Review NO; Hematocrit 37.4 % (36-46); Hemoglobin 12.3 g/dL (12.0-16.0); Lymphocytes Absolute Auto 1800 /uL (1100-4500); Mean Corpuscular HGB Conc 32.9 % (30-36); Mean Corpuscular Hemoglobin 26.5 PG (26-34); Mean Corpuscular Volume 80.6 fL (80-100); Platelet Count 382 X10^3/uL (150-400)
[2025-07-29 18:14] LABS: Culture Indicated Urine Specimen Cultured
[2025-07-29 18:18] LABS: Alanine Aminotransferase 26 IU/L (<35); Albumin 4.9 g/dL (3.5-5.0); Albumin Globulin Ratio 1.8 (1.0-2.8); Alkaline Phosphatase 67 U/L (38-126); Blood Urea Nitrogen 10 mg/dL (7-17); Calcium 9.8 mg/dL (8.4-10.2); Carbon Dioxide 20 mmol/L (22-32); Chloride 103 mmol/L (98-107); Estimated Glomerular Filt Rate > 60 mL/min (>60); Globulin 2.8 g/dL (1.7-4.1); Glucose 128 mg/dL (70-99); HEMOLYSIS < 15 (0-50); Lipase 55 U/L (23-300); Magnesium 1.5 mg/dL (1.6-2.3); Potassium 3.4 mmol/L (3.4-5.1); Sodium 142 mmol/L (137-145); Total Protein 7.7 g/dL (6.3-8.2)
--- NOTE | 2025-07-29 18:43 | PC.NURSE ---
2nd lactate drawn from patient line and sent to the lab.
[2025-07-29 18:44] VITALS: BP 142/87; PULSE 87; RESP 18; O2SAT 97
[2025-07-29 19:00] LABS: Lactate (Lactic Acid) 0.7 mmol/L (0.7-2.1)
[2025-07-29 19:43] VITALS: BP 121/76; PULSE 78; O2SAT 98
== END 2025-07-29 22:15 | disposition home or self-care (01) ==
PROVIDERS: Emergency Provider Emergency Medicine; PCP Student in an Organized Health Care Education/Training Program
DX: R10.84 Generalized abdominal pain (principal); R11.2 Nausea with vomiting, unspecified; Z98.84 Bariatric surgery status
CPT/HCPCS: 36415; 74177; 80053; 81001; 83605; 83690; 83735; 85025; 87077; 87086; 87186; 96361; 96374; 96375; 96376; 99284; J1171; J1790; J7030; Q9967

== ENCOUNTER 2025-07-31 10:17 | Emergency (ER) | payer OTHER, SELFPAY ==
[2025-05-30 16:53] VITALS: BMI 29.8
[2025-07-31] VITALS (9 sets, daily range): BP systolic 117–170; BP diastolic 61–112; PULSE 55–93; RESP 14–20; TEMP 37.5; O2SAT 98–100; BMI 27.4
--- NOTE | 2025-07-31 10:39 | ED.ABDPAIN ---
HPI - Abdominal Pain General Chief Complaint: Abdominal Pain Stated Complaint: abd pain, hematemesis Time Seen by Provider: 07/31/25 10:38 Source: patient and EMS Mode of arrival: EMS History of Present Illness HPI narrative: Patient is a 44-year-old female history of gastric sleeve surgery converted to bypass on July 08 this year. She also had a hernia repair all at [facility] in [place]. She has had ongoing abdominal pain. She continues to have frequent ED visits for the same. She was seen evaluated here on July 29 where she had blood work and a CT. Related Data Home Medications ?Medication ?Instructions ?Recorded ?Confirmed Brennen-plex 85 mg PO DAILY 07/12/25 07/25/25 enoxaparin 30 mg/0.3 mL 30 mg SUBCUT Q12H 07/12/25 07/25/25 subcutaneous syringe hyoscyamine sulfate 0.125 mg 0.25 mg PO Q4H PRN 07/12/25 07/25/25 sublingual tablet lisinopril 5 mg tablet 5 mg PO DAILY 07/12/25 07/25/25 methocarbamol 500 mg tablet 500 mg PO QID PRN 07/12/25 07/25/25 polyethylene glycol 3350 17 17 g PO BID 07/12/25 07/25/25 gram/dose oral powder sumatriptan succinate 100 mg tablet 100 mg PO ONCE 07/12/25 07/25/25 vitamin d-3 PO 07/12/25 07/25/25 Previous Rx's ?Medication ?Instructions ?Recorded clonazepam 0.5 mg tablet 0.5 mg PO BID #60 tabs 03/18/25 lamotrigine 100 mg tablet 100 mg PO DAILY #90 tabs 03/18/25 ondansetron 4 mg disintegrating 4 mg PO Q6H PRN nausea and 03/21/25 tablet vomiting #30 tabs topiramate 25 mg tablet (Topamax) 50 mg (2 x 25 mg) PO BID #90 tabs 03/21/25 prochlorperazine maleate 10 mg 10 mg PO TID PRN nausea and 05/23/25 tablet (Compazine) vomiting #90 tabs amoxicillin 875 mg-potassium 1 tab PO BID #14 tabs 07/17/25 clavulanate 125 mg tablet oxycodone 5 mg tablet 5 mg PO BID PRN pain #30 tabs 07/25/25 metoclopramide HCl 10 mg tablet 10 mg PO Q6H PRN nausea and 07/31/25 (Reglan) vomiting #20 tabs promethazine 25 mg rectal 25 mg MD Q6H PRN nausea and 07/31/25 suppository vomiting #12 ea Allergies Allergy/AdvReac Type Severity Reaction Status Date / Time vancomycin Allergy Intermediate ITCHING Verified 07/31/25 10:25 gluten Allergy Celiac Verified 07/31/25 10:25 NSAIDS (Non-Steroidal AdvReac Mild Gastrointestinal Verified 07/31/25 10:25 Anti-Inflamma Upset benzonatate (From Tessalon AdvReac Unknown Hives Verified 07/31/25 10:25 Perles) escitalopram (From Lexapro) AdvReac Unknown Hallucinati Verified 07/31/25 10:25 ng Patient History Medical History (Updated 07/31/25 @ 13:55 by Torri Che DO) Abdominal pain Bile reflux gastritis Left corneal abrasion Headache Polycystic ovary disease Celiac disease GERD with apnea Hypertension Bipolar disorder Surgical History H/O: hysterectomy Status post tubal ligation History of section H/O abdominoplasty H/O oophorectomy H/O gastric sleeve History of cholecystectomy History of appendectomy Social History marital status: household members: significant other and children lives independently: Yes occupational status: employed Smoking Status: Never smoker alcohol intake: never substance use type: marijuana Smoking Status: Never smoker alcohol intake frequency: holidays/special occasions only Exam Initial Vital Signs Initial Vital Signs: Vital Signs Temperature 99.5 F 07/31/25 10:25 Pulse Rate 89 07/31/25 10:25 Respiratory Rate 20 07/31/25 10:25 Blood Pressure 144/92 H 07/31/25 10:25 Pulse Oximetry 98 07/31/25 10:25 Oxygen Delivery Method Room Air 07/31/25 10:25 Course Orders Ordered: ED Orders 07/31/25 10:32 CBC Auto Diff [Complete Blood Count AUTO DIFF] Stat CMP [Comprehensive Metabolic Panel] Stat Lactate (Lactic Acid) Stat Lipase Stat Discontinued Medications Droperidol (Droperidol 2.5 Mg/Ml Vial) 1.25 mg IV NOW ONE Stop: 07/31/25 10:47 Last Admin: 07/31/25 10:57 Dose: 1.25 mg Documented By: RB Hydromorphone HCl (Hydromorphone 1 Mg/Ml Syringe) 1 mg IV NOW ONE Stop: 07/31/25 10:43 Last Admin: 07/31/25 10:51 Dose: 1 mg Documented By: RB Sodium Chloride (Normal Saline 0.9%) 1,000 mls @ 1,000 mls/hr IV BOLUS ONE Stop: 07/31/25 11:48 Last Infusion: 07/31/25 12:11 Dose: Infused Documented By: Infusion: 07/31/25 11:48 Dose: 1,000 mls/hr Documented By: Admin: 07/31/25 10:57 Dose: 1,000 mls/hr Documented By: HOMERO Sodium Chloride (Normal Saline 0.9%) 1,000 mls @ 1,000 mls/hr IV BOLUS ONE Stop: 07/31/25 13:30 Last Infusion: 07/31/25 14:12 Dose: Infused Documented By: Admin: 07/31/25 12:57 Dose: 1,000 mls/hr Documented By: RYALND Ondansetron HCl (Ondansetron 4 Mg/2 Ml Inj) 4 mg IV NOW ONE Stop: 07/31/25 10:45 Last Admin: 07/31/25 10:51 Dose: 4 mg Documented By: HOMERO Vital Signs Vital signs: Vital Signs - 8 hr 07/31/25 10:25 07/31/25 10:30 07/31/25 10:31 Temperature 99.5 F Pulse Rate 89 88 93 H Respiratory Rate 20 Blood Pressure 144/92 H Pulse Oximetry 98 100 99 Oxygen Delivery Method Room Air 07/31/25 10:31 07/31/25 11:00 07/31/25 11:00 Temperature Pulse Rate 93 H Respiratory Rate 16 Blood Pressure 170/112 H 135/71 Pulse Oximetry 100 Oxygen Delivery Method 07/31/25 11:30 07/31/25 11:30 07/31/25 12:00 Temperature Pulse Rate 62 57 L Respiratory Rate 14 Blood Pressure 117/61 Pulse Oximetry 100 99 Oxygen Delivery Method 07/31/25 12:00 07/31/25 12:30 07/31/25 12:30 Temperature Pulse Rate 55 L Respiratory Rate 14 Blood Pressure 121/66 122/63 Pulse Oximetry 98 Oxygen Delivery Method 07/31/25 13:00 07/31/25 13:00 07/31/25 14:13 Temperature Pulse Rate 61 82 Respiratory Rate 14 16 Blood Pressure 132/68 127/78 Pulse Oximetry 99 100 Oxygen Delivery Method Room Air MDM - Abdominal Pain Lab Data 07/31/25 10:32 07/31/25 10:32 Labs: Lab Results 07/31/25 Range/Units 10:32 WBC 9.3 (4.5-11.0) X10^3/uL RBC 4.48 (4.0-5.2) X10^6/uL Hgb 12.0 (12.0-16.0) g/dL Hct 35.9 L (36-46) % MCV 80.0 (80-100) fL MCH 26.7 (26-34) PG MCHC 33.4 (30-36) % RDW 16.7 H (11.6-14.8) % Plt Count 376 (150-400) X10^3/uL Neut % (Auto) 57.9 (50-75) % Lymph % (Auto) 30.7 (25-40) % [place] % (Auto) 10.4 (3-14) % Eos % (Auto) 0.3 L (2-4) % Baso % (Auto) 0.7 (0-2) % Neut # (Auto) 5400 (7640-3066) /uL Lymph # (Auto) 2900 (1462-7659) /uL [place] # (Auto) 1000 H (0-900) /uL Eos # (Auto) 0 (0-450) /uL Baso # (Auto) 100 (0-100) /uL Sodium 140 (137-145) mmol/L Potassium 3.2 L (3.4-5.1) mmol/L Chloride 102 (98-107) mmol/L Carbon Dioxide 22 (22-32) mmol/L BUN 8 (7-17) mg/dL Creatinine 0.40 L (0.52-1.04) mg/dL Estimated GFR > 60 (>60) mL/min BUN/Creatinine Ratio 20.0 (6-22) Glucose 110 H (70-99) mg/dL Lactate 1.1 (0.7-2.1) mmol/L Calcium 9.6 (8.4-10.2) mg/dL Total Bilirubin 1.5 H (0.2-1.3) mg/dL AST 23 (14-36) IU/L ALT 24 (<35) IU/L Alkaline Phosphatase 60 (38-126) U/L Total Protein 7.5 (6.3-8.2) g/dL Albumin 4.8 (3.5-5.0) g/dL Globulin 2.7 (1.7-4.1) g/dL Albumin/Globulin Ratio 1.8 (1.0-2.8) Lipase 40 (23-300) U/L MDM Narrative Medical decision making narrative: MDM CC: Abdominal pain nausea vomiting Complicating co-morbidities: Abdominal migraines Data collected from: Patient previous records Medical records reviewed: Multiple ED records reviewed, patient has had 18 CT scans this year alone she had [address] from 07/29/2025 showed some mild persistent circumferential wall thickening of the colon with pericolonic stranding mild colitis infectious or inflammatory. Differential considered: Bowel obstruction, surgical complication, gastro enteritis, uncontrolled pain, acute on chronic vomiting Exam documented above, pertinent findings include: Alert 44-year-old female actively dry heaving diffuse pain Lab Test results independently reviewed as above. Pertinent findings: CBC no leukocytosis no anemia CMP mild hypokalemia with 3.2 potassium creatinine 0.4 glucose 110 Bilirubin stable at 1.5 normal liver enzymes lipase 40 Lactate 1.1 Independently reviewed EKG as above Imaging studies independently reviewed: None Consultations: None Treatments: IV fluids Dilaudid droperidol Zofran Re-evaluations: After fluids Dilaudid and droperidol patient is feeling better she has not had any further episodes of vomiting. Discussion with her about being admitted to the hospital versus going home. , Discussion: 44-year-old female with ongoing abdominal complaints nausea vomiting presenting today again with nausea vomiting. She was dry heaving reports that she did have some red blood clots. Hemodynamically stable no evidence of anemia abdomen is soft. Potassium is slightly low today at 3.2 but other blood work is stable. She is tolerating p.o. ice chips. Discussion with her offered her admission over at this time she would like to go home. She has had success with suppository Phenergan and Reglan in the past. Patient has a multiple CT scans she had 1 a couple of days ago blood work is overall reassuring minus minor hypokalemia, I do not see need for repeat imaging today discuss this with the patient. She would like to go home. Discharge Plan Departure Patient Disposition: Home Clinical Impression: Nausea & vomiting Qualifiers: Vomiting type: bilious vomiting Qualified Code(s): R11.14 - Bilious vomiting Instructions: Nausea and Vomiting-Adult Activity Restrictions/Additional Instructions: *You have been diagnosed with vomiting *What to do: At this time increase electrolytes as tolerated small sips frequent *Continue to take medications as directed Reglan 10 mg every 6 hours for nausea or vomiting Phenergan suppositories 25 mg every 6 hours for nausea or vomiting *Follow up with your primary care provider in 2-3 days or call [phone] *Return to ER if you should have ongoing abdominal pain nausea or vomiting [or] any new, worsening or concerning symptoms Prescriptions: New promethazine 25 mg suppository 25 mg MD Q6H PRN (Reason: nausea and vomiting) Qty: 12 0RF metoclopramide HCl [Reglan] 10 mg tablet 10 mg PO Q6H PRN (Reason: nausea and vomiting) Qty: 20 0RF No Action prochlorperazine maleate [Compazine] 10 mg tablet 10 mg PO TID PRN (Reason: nausea and vomiting) Qty: 90 3RF oxycodone 5 mg tablet 5 mg PO BID PRN (Reason: pain) Qty: 30 0RF clonazepam 0.5 mg tablet 0.5 mg PO BID Qty: 60 5RF lamotrigine 100 mg tablet 100 mg PO DAILY Qty: 90 3RF hyoscyamine sulfate 0.125 mg tablet, sublingual 0.25 mg PO Q4H PRN Rx Instructions: place 1 tablet under the tongue every 4 hours as needed for cramping enoxaparin 30 mg/0.3 mL syringe 30 mg SUBCUT Q12H Rx Instructions: Injection 0.3mls under the skin every 12 hours for 14 days. Started 07/11/25 Brennen-plex 85 mg PO DAILY methocarbamol 500 mg tablet 500 mg PO QID PRN sumatriptan succinate 100 mg tablet 100 mg PO ONCE lisinopril 5 mg tablet 5 mg PO DAILY polyethylene glycol 3350 17 gram/dose powder 17 g PO BID vitamin d-3 PO topiramate [Topamax] 25 mg Tablet 50 mg PO BID Qty: 90 0RF ondansetron 4 mg tablet,disintegrating 4 mg PO Q6H PRN (Reason: nausea and vomiting) Qty: 30 1RF amoxicillin-pot clavulanate 875-125 mg tablet 1 tab PO BID Qty: 14 0RF Referrals: Sarah Dunbar MD [Primary Care Provider, Family Practice] Stand Alone Forms: Patient Portal/API
[2025-07-31 10:49] LABS: Add Manual Diff / Slide Review NO; Hematocrit 35.9 % (36-46); Hemoglobin 12.0 g/dL (12.0-16.0); Lymphocytes Absolute Auto 2900 /uL (1100-4500); Mean Corpuscular HGB Conc 33.4 % (30-36); Mean Corpuscular Hemoglobin 26.7 PG (26-34); Mean Corpuscular Volume 80.0 fL (80-100); Platelet Count 376 X10^3/uL (150-400)
[2025-07-31] MEDS: ONDANSETRON 4 MG/2 ML INJ IV (10:51)
[2025-07-31 10:55] LABS: Alanine Aminotransferase 24 IU/L (<35); Albumin 4.8 g/dL (3.5-5.0); Albumin Globulin Ratio 1.8 (1.0-2.8); Alkaline Phosphatase 60 U/L (38-126); Blood Urea Nitrogen 8 mg/dL (7-17); Calcium 9.6 mg/dL (8.4-10.2); Carbon Dioxide 22 mmol/L (22-32); Chloride 102 mmol/L (98-107); Estimated Glomerular Filt Rate > 60 mL/min (>60); Globulin 2.7 g/dL (1.7-4.1); Glucose 110 mg/dL (70-99); HEMOLYSIS < 15 (0-50); Lactate (Lactic Acid) 1.1 mmol/L (0.7-2.1); Lipase 40 U/L (23-300); Potassium 3.2 mmol/L (3.4-5.1); Sodium 140 mmol/L (137-145); Total Protein 7.5 g/dL (6.3-8.2)
[2025-07-31] MEDS: SODIUM CHLORIDE 0.9% 1,000 ML 1000 ML IV ×2 (10:57→12:57)
[2025-07-31] MEDS: droPERidol 2.5 MG/ML VIAL 1.25 MG IV (10:57)
== END 2025-07-31 14:14 | disposition home or self-care (01) ==
PROVIDERS: Emergency Provider Emergency Medicine; PCP Student in an Organized Health Care Education/Training Program
DX: R10.9 Unspecified abdominal pain (principal); R11.14 Bilious vomiting; Z98.84 Bariatric surgery status; Z98.890 Other specified postprocedural states
CPT/HCPCS: 36415; 80053; 83605; 83690; 85025; 96361; 96374; 96375; 99284; J1171; J1790; J2405; J7030

== ENCOUNTER 2025-08-01 04:16 | Observation (INO) | payer OTHER, SELFPAY ==
[2025-05-30 16:53] VITALS: BMI 29.8
[2025-08-01] VITALS (11 sets, daily range): BP systolic 108–173; BP diastolic 61–104; PULSE 52–94; RESP 14–17; TEMP 36.4–37.1; O2SAT 96–100; BMI 27.4
--- NOTE | 2025-08-01 04:51 | ED.RECABL ---
HPI - Recheck/Abnormal Lab/Rx General Chief Complaint: Recheck/Abnormal Lab/Rx Stated Complaint: Abdominal Pain, Vomiting Time Seen by Provider: 08/01/25 04:43 Source: patient Mode of arrival: Ambulatory History of Present Illness HPI narrative: 44-year-old female with history of chronic/recurrent abdominal pain, well known to this emergency department, many prior advanced imaging abdominopelvic studies CT scan, also prior CTA study without any mesenteric ischemic changes, recurrent episodes nausea and vomiting with abdominal pain, most recently seen here 07/31/2025 for the same problem, offered admission at that time, declined. Having ongoing nausea and vomiting nonbloody. Related Data Home Medications ?Medication ?Instructions ?Recorded ?Confirmed Brennen-plex 85 mg PO DAILY 07/12/25 08/01/25 lisinopril 5 mg tablet 5 mg PO DAILY 07/12/25 08/01/25 polyethylene glycol 3350 17 17 g PO BID 07/12/25 08/01/25 gram/dose oral powder vitamin d-3 10,000 unit PO DAILY 07/12/25 08/01/25 Previous Rx's ?Medication ?Instructions ?Recorded clonazepam 0.5 mg tablet 0.5 mg PO BID #60 tabs 03/18/25 lamotrigine 100 mg tablet 100 mg PO DAILY #90 tabs 03/18/25 ondansetron 4 mg disintegrating 4 mg PO Q6H PRN nausea and 03/21/25 tablet vomiting #30 tabs topiramate 25 mg tablet (Topamax) 50 mg (2 x 25 mg) PO BID #90 tabs 03/21/25 prochlorperazine maleate 10 mg 10 mg PO TID PRN nausea and 05/23/25 tablet (Compazine) vomiting #90 tabs oxycodone 5 mg tablet 5 mg PO BID PRN pain #30 tabs 07/25/25 metoclopramide HCl 10 mg tablet 10 mg PO Q6H PRN nausea and 07/31/25 (Reglan) vomiting #20 tabs promethazine 25 mg rectal 25 mg VA Q6H PRN nausea and 07/31/25 suppository vomiting #12 ea Allergies Allergy/AdvReac Type Severity Reaction Status Date / Time vancomycin Allergy Intermediate ITCHING Verified 08/01/25 04:38 gluten Allergy Celiac Verified 08/01/25 04:38 NSAIDS (Non-Steroidal AdvReac Mild Gastrointestinal Verified 08/01/25 04:38 Anti-Inflamma Upset benzonatate (From Tessalon AdvReac Unknown Hives Verified 08/01/25 04:38 Perles) escitalopram (From Lexapro) AdvReac Unknown Hallucinati Verified 08/01/25 04:38 ng Patient History Medical History Abdominal pain Bile reflux gastritis Left corneal abrasion Headache Polycystic ovary disease Celiac disease GERD with apnea Hypertension Bipolar disorder Surgical History H/O: hysterectomy Status post tubal ligation History of section H/O abdominoplasty H/O oophorectomy H/O gastric sleeve History of cholecystectomy History of appendectomy Social History marital status: household members: significant other and children lives independently: Yes occupational status: employed Smoking Status: Never smoker alcohol intake: never substance use type: marijuana Smoking Status: Never smoker alcohol intake frequency: holidays/special occasions only Exam Narrative Exam Narrative: GENERAL: Well-developed patient, in mild distress. HEAD: Atraumatic. Normocephalic. EYES: Pupils equal round and reactive. Extraocular motions intact. No scleral icterus. No injection or drainage. ENT: Nose without bleeding, purulent drainage. Throat without erythema, tonsillar hypertrophy or exudate. Airway patent. NECK: Trachea midline. Non tender CARDIOVASCULAR: Regular rate and rhythm without murmurs, gallops, or rubs. RESPIRATORY: Clear to auscultation. Breath sounds equal bilaterally. No wheezes, rales, or rhonchi. GASTROINTESTINAL: Abdomen with scars, no obvious ventral hernia, no specific areas of tenderness seemed obvious, generalized mild tenderness, bowel tones not increased or decreased and without rushes/tinkles. EXTREMITIES: No edema or joint tenderness. BACK: Nontender without deformity or crepitance. No flank tenderness. NEURO: AOx3. Motor functions grossly nonfocal. SKIN: No rash or erythema of visible areas Initial Vital Signs Initial Vital Signs: Vital Signs Temperature 98.7 F 08/01/25 04:38 Pulse Rate 89 08/01/25 04:38 Respiratory Rate 16 08/01/25 04:38 Blood Pressure 172/103 H 08/01/25 04:38 Pulse Oximetry 98 08/01/25 04:38 Oxygen Delivery Method Room Air 08/01/25 04:38 Course Orders Ordered: Hydromorphone HCl (Hydromorphone Hcl 0.5 Mg/0.5 Ml Syringe) 1 mg IV Q2H PRN PRN Reason: Pain, Severe (7-10) Last Admin: 08/02/25 00:06 Dose: 1 mg Documented By: Admin: 08/01/25 20:02 Dose: 1 mg Documented By: Admin: 08/01/25 17:45 Dose: 1 mg Documented By: LDV Sodium Chloride (Normal Saline 0.9%) 1,000 mls @ 100 mls/hr IV CONT BENITO Last Admin: 08/01/25 21:15 Dose: 100 mls/hr Documented By: Infusion: 08/01/25 21:15 Dose: Infused Documented By: Admin: 08/01/25 12:30 Dose: 100 mls/hr Documented By: LDV Naloxone HCl (Naloxone 0.4 Mg/Ml Vial) 0.2 mg IV Q2MIN PRN PRN Reason: Opiate Reversal Ondansetron HCl (Ondansetron 4 Mg/2 Ml Inj) 4 mg IV Q4HR PRN PRN Reason: Nausea And Vomiting Last Admin: 08/02/25 00:06 Dose: 4 mg Documented By: Admin: 08/01/25 20:02 Dose: 4 mg Documented By: Admin: 08/01/25 14:18 Dose: 4 mg Documented By: Admin: 08/01/25 09:03 Dose: 4 mg Documented By: LDV Prochlorperazine (Prochlorperazine 10 Mg/2 Ml Vial) 5 mg IV Q6HR PRN PRN Reason: Nausea Last Admin: 08/01/25 21:14 Dose: 5 mg Documented By: Admin: 08/01/25 14:48 Dose: 5 mg Documented By: TLS Discontinued Medications Diphenhydramine HCl (Diphenhydramine 50 Mg/Ml Vial) 50 mg IV NOW ONE Stop: 08/01/25 05:02 Last Admin: 08/01/25 05:25 Dose: 50 mg Documented By: LS Droperidol (Droperidol 2.5 Mg/Ml Vial) 1.25 mg IV NOW ONE Stop: 08/01/25 05:02 Last Admin: 08/01/25 05:16 Dose: 1.25 mg Documented By: LEONEL Hydromorphone HCl (Hydromorphone 1 Mg/Ml Syringe) 1 mg IV NOW ONE Stop: 08/01/25 05:02 Last Admin: 08/01/25 05:18 Dose: 1 mg Documented By: LEONEL Hydromorphone HCl (Hydromorphone Hcl 0.5 Mg/0.5 Ml Syringe) 0.5 mg IV Q2H PRN PRN Reason: Pain, Severe (7-10) Last Admin: 08/01/25 17:07 Dose: 0.5 mg Documented By: Admin: 08/01/25 14:18 Dose: 0.5 mg Documented By: Admin: 08/01/25 12:23 Dose: 0.5 mg Documented By: Admin: 08/01/25 09:03 Dose: 0.5 mg Documented By: LDV Sodium Chloride (Normal Saline 0.9%) 1,000 mls @ 1,000 mls/hr IV BOLUS ONE Stop: 08/01/25 05:59 Last Infusion: 08/01/25 07:59 Dose: Infused Documented By: Admin: 08/01/25 05:16 Dose: 1,000 mls/hr Documented By: LEONEL POTASSIUM CHLORIDE IN WATER (Potassium Cl 10 Meq/100 Ml Lindsay) 10 meq in 100 mls @ 100 mls/hr IV Q1H BENITO Stop: 08/01/25 08:44 Last Infusion: 08/01/25 11:24 Dose: Infused Documented By: Admin: 08/01/25 10:15 Dose: 100 mls/hr Documented By: Infusion: 08/01/25 09:20 Dose: Infused Documented By: Admin: 08/01/25 08:20 Dose: 100 mls/hr Documented By: LDV Potassium Chloride (Potassium Chloride 20 Meq/15 Ml Udc) 40 meq PO NOW ONE Stop: 08/01/25 06:08 Last Admin: 08/01/25 08:08 Dose: Not Given Documented By: LDV Vital Signs Vital signs: Vital Signs - 8 hr 08/01/25 04:38 Temperature 98.7 F Pulse Rate 89 Respiratory Rate 16 Blood Pressure 172/103 H Pulse Oximetry 98 Oxygen Delivery Method Room Air MDM - Recheck/Abnormal Lab/Rx Lab Data Attestation: I reviewed the patient's lab results. Lab results narrative: White blood cell count 8600, hemoglobin 11.6, platelets adequate. Glucose 121. BUN 5 with creatinine 0.42, serum CO2 22. Sodium 143. Potassium 3.2 low. Total bilirubin 1.8, other liver functions unremarkable. Lipase normal. 08/01/25 02:52 08/01/25 02:52 Labs: Lab Results 08/01/25 Range/Units 02:52 WBC 8.6 (4.5-11.0) X10^3/uL RBC 4.29 (4.0-5.2) X10^6/uL Hgb 11.6 L (12.0-16.0) g/dL Hct 34.2 L (36-46) % MCV 79.7 L (80-100) fL MCH 27.0 (26-34) PG MCHC 33.9 (30-36) % RDW 16.8 H (11.6-14.8) % Plt Count 347 (150-400) X10^3/uL Neut % (Auto) 63.6 (50-75) % Lymph % (Auto) 25.6 (25-40) % [place] % (Auto) 9.9 (3-14) % Eos % (Auto) 0.4 L (2-4) % Baso % (Auto) 0.5 (0-2) % Neut # (Auto) 5500 (6684-6638) /uL Lymph # (Auto) 2200 (1405-2743) /uL [place] # (Auto) 800 (0-900) /uL Eos # (Auto) 0 (0-450) /uL Baso # (Auto) 0 (0-100) /uL Sodium 143 (137-145) mmol/L Potassium 3.2 L (3.4-5.1) mmol/L Chloride 105 (98-107) mmol/L Carbon Dioxide 22 (22-32) mmol/L BUN 5 L (7-17) mg/dL Creatinine 0.42 L (0.52-1.04) mg/dL Estimated GFR > 60 (>60) mL/min BUN/Creatinine Ratio 11.9 (6-22) Glucose 121 H (70-99) mg/dL Calcium 9.4 (8.4-10.2) mg/dL Total Bilirubin 1.8 H (0.2-1.3) mg/dL AST 21 (14-36) IU/L ALT 21 (<35) IU/L Alkaline Phosphatase 56 (38-126) U/L Total Protein 7.2 (6.3-8.2) g/dL Albumin 4.6 (3.5-5.0) g/dL Globulin 2.6 (1.7-4.1) g/dL Albumin/Globulin Ratio 1.8 (1.0-2.8) Lipase 38 (23-300) U/L MDM Narrative Medical decision making narrative: 44-year-old female with chronic abdominal pain, numerous frequent visits to this emergency department, most recently seen here 07/31/2025 was discharged home after being offered admission, last CT abdomen and pelvis imaging 07/29/2025 without acute changes. Typically in the past has responded to Dilaudid and droperidol with Benadryl. IV fluids ordered. IV Dilaudid, droperidol, Benadryl. Labs pending. Lab data: White blood cell count 8600, hemoglobin 11.6, platelets adequate. Glucose 121. BUN 5 with creatinine 0.42, serum CO2 22. Sodium 143. Potassium 3.2 low. Total bilirubin 1.8, other liver functions unremarkable. Lipase normal. Potassium low, nausea not yet control, IV potassium. Some improvement in pain, still feels nauseated, patient requests admission. Does not want have CT imaging done again tonight, last CT abdomen and pelvis imaging 07/29/2025. We will contact hospitalist. [id number], case discussed hospitalist Dr. Mcmullen who accepts patient for admission to observation Critical Care Time Critical Care Time Critical Care Time: Yes Total Critical Care Time: 35 Attestation: The high probability of a clinically significant, sudden or life threatening deterioration of the [gastrointestinal] system(s) required my full and direct attention, intervention and personal management. The aggregate critical care time was [35] minutes. This time is in addition to time spent performing reported procedures but includes the following: [x] Data Review and interpretation [x] Patient assessment and monitoring of vital signs [x] Documentation [x] Medication orders and management Discharge Plan Departure Patient Disposition: Admitted as Observation Clinical Impression: Nausea and vomiting, Abdominal pain Admit Date/Time: 08/01/25 06:30 Admit Provider: Dionicio Mcmullen
[2025-08-01] MEDS: droPERidol 2.5 MG/ML VIAL 1.25 MG IV (05:16)
[2025-08-01] MEDS: SODIUM CHLORIDE 0.9% 1,000 ML 1000 ML IV (05:16)
[2025-08-01 05:21] LABS: Add Manual Diff / Slide Review NO; Hematocrit 34.2 % (36-46); Hemoglobin 11.6 g/dL (12.0-16.0); Lymphocytes Absolute Auto 2200 /uL (1100-4500); Mean Corpuscular HGB Conc 33.9 % (30-36); Mean Corpuscular Hemoglobin 27.0 PG (26-34); Mean Corpuscular Volume 79.7 fL (80-100); Platelet Count 347 X10^3/uL (150-400)
[2025-08-01] MEDS: diphenhydrAMINE 50 MG/ML VIAL IV (05:25)
[2025-08-01 05:30] LABS: Alanine Aminotransferase 21 IU/L (<35); Albumin 4.6 g/dL (3.5-5.0); Albumin Globulin Ratio 1.8 (1.0-2.8); Alkaline Phosphatase 56 U/L (38-126); Blood Urea Nitrogen 5 mg/dL (7-17); Calcium 9.4 mg/dL (8.4-10.2); Carbon Dioxide 22 mmol/L (22-32); Chloride 105 mmol/L (98-107); Estimated Glomerular Filt Rate > 60 mL/min (>60); Globulin 2.6 g/dL (1.7-4.1); Glucose 121 mg/dL (70-99); HEMOLYSIS < 15 (0-50); Lipase 38 U/L (23-300); Potassium 3.2 mmol/L (3.4-5.1); Sodium 143 mmol/L (137-145); Total Protein 7.2 g/dL (6.3-8.2)
--- NOTE | 2025-08-01 07:20 | PM.HP.1 ---
History of Present Illness History of Present Illness Date Patient Seen: 08/01/25 Time Patient Seen: 09:05 Chief complaint: Abdominal Pain, Vomiting Narrative: Patient was a 44-year-old female with a history of cyclic bilious vomiting which was felt to relate reflux. She underwent revision surgery at [facility] on July 08 at which time she underwent a robotic assisted paraesophageal hernia repair, and a gastric sleeve conversion to a Julieta-en-Y as well as adhesion lysis and partial gastrectomy. Since surgery she was had persistent nausea and vomiting. She did follow up with bariatric surgery at [facility] and was asked to continue a clear liquid to full liquid diet. She was had scant bowel movements. She was epigastric abdominal pain. She also has persistent nausea and vomiting with a number of ER visits in the past 2 weeks. [facility] Medical History Abdominal pain Bile reflux gastritis Left corneal abrasion Headache Polycystic ovary disease Celiac disease GERD with apnea Hypertension Bipolar disorder Surgical History H/O: hysterectomy Status post tubal ligation History of section H/O abdominoplasty H/O oophorectomy H/O gastric sleeve History of cholecystectomy History of appendectomy Social History marital status: household members: significant other and children lives independently: Yes occupational status: employed Smoking Status: Never smoker alcohol intake: never substance use type: marijuana Meds Home Medications and Allergies Home Medications ?Medication ?Instructions ?Recorded ?Confirmed ?Type clonazepam 0.5 mg tablet 0.5 mg PO BID #60 tabs 03/18/25 07/25/25 Rx lamotrigine 100 mg tablet 100 mg PO DAILY #90 tabs 03/18/25 07/25/25 Rx ondansetron 4 mg disintegrating 4 mg PO Q6H PRN nausea and 03/21/25 07/25/25 Rx tablet vomiting #30 tabs topiramate 25 mg tablet (Topamax) 50 mg (2 x 25 mg) PO BID #90 tabs 03/21/25 07/25/25 Rx prochlorperazine maleate 10 mg 10 mg PO TID PRN nausea and 05/23/25 07/25/25 Rx tablet (Compazine) vomiting #90 tabs Brennen-plex 85 mg PO DAILY 07/12/25 07/25/25 History enoxaparin 30 mg/0.3 mL 30 mg SUBCUT Q12H 07/12/25 07/25/25 History subcutaneous syringe hyoscyamine sulfate 0.125 mg 0.25 mg PO Q4H PRN 07/12/25 07/25/25 History sublingual tablet lisinopril 5 mg tablet 5 mg PO DAILY 07/12/25 07/25/25 History methocarbamol 500 mg tablet 500 mg PO QID PRN 07/12/25 07/25/25 History polyethylene glycol 3350 17 17 g PO BID 07/12/25 07/25/25 History gram/dose oral powder sumatriptan succinate 100 mg tablet 100 mg PO ONCE 07/12/25 07/25/25 History vitamin d-3 PO 07/12/25 07/25/25 History amoxicillin 875 mg-potassium 1 tab PO BID #14 tabs 07/17/25 07/25/25 Rx clavulanate 125 mg tablet oxycodone 5 mg tablet 5 mg PO BID PRN pain #30 tabs 07/25/25 07/25/25 Rx metoclopramide HCl 10 mg tablet 10 mg PO Q6H PRN nausea and 07/31/25 Rx (Reglan) vomiting #20 tabs promethazine 25 mg rectal 25 mg VA Q6H PRN nausea and 07/31/25 Rx suppository vomiting #12 ea Allergies Allergy/AdvReac Type Severity Reaction Status Date / Time vancomycin Allergy Intermediate ITCHING Verified 08/01/25 04:38 gluten Allergy Celiac Verified 08/01/25 04:38 NSAIDS (Non-Steroidal AdvReac Mild Gastrointestinal Verified 08/01/25 04:38 Anti-Inflamma Upset benzonatate (From Tessalon AdvReac Unknown Hives Verified 08/01/25 04:38 Perles) escitalopram (From Lexapro) AdvReac Unknown Hallucinati Verified 08/01/25 04:38 ng Review of Systems Review of Systems Narrative: All else reviewed and otherwise unremarkable except as noted in the history and physical. Exam Vital Signs (past 8 hours): - 08/01/25 04:38 Temperature 98.7 F Pulse Rate 89 Respiratory Rate 16 Blood Pressure 172/103 H Pulse Oximetry 98 Oxygen Delivery Method Room Air Oxygen Delivery Method Room Air Narrative Exam Narrative: NAD, alert and oriented, she appears uncomfortable and is anxious. Normocephalic skull, EOMI, anicteric sclera, symmetric pupils. Oropharynx unremarkable, no droop. Neck supple, midline trachea, no adenopathy. Lungs clear, normal rate and effort. Heart regular, no murmur gallop or rub. Abdomen is soft, non distended and diffusely tender but most tender in the epigastric region. No guarding or rebound. All port wounds are unremarkable. There was no guarding or rebound. Extremities are free of edema. Skin is free of rash or lesions. Joints are not swollen or deformed. Judgment appears to be normal. Objective Imaging CTAP (07/29):: Radiologist's impression: Mild persistent circumferential wall thickening of the colon with mild pericolonic stranding. Findings may represent mild colitis either infectious or inflammatory in etiology. No evidence for acute diverticulitis. No evidence for small bowel obstruction. Moderate fecal burden in the distal colon and rectum. Interval improvement of previously described postoperative changes of the ventral abdomen from recent laparoscopic surgery. No evidence for abscess formation . Other chronic/non-acute findings as above. Labs 08/01/25 02:52 08/01/25 02:52 Labs: Laboratory Results - last 24 hr 08/01/25 02:52 WBC 8.6 RBC 4.29 Hgb 11.6 L Hct 34.2 L MCV 79.7 L MCH 27.0 MCHC 33.9 RDW 16.8 H Plt Count 347 Neut % (Auto) 63.6 Lymph % (Auto) 25.6 [place] % (Auto) 9.9 Eos % (Auto) 0.4 L Baso % (Auto) 0.5 Neut # (Auto) 5500 Lymph # (Auto) 2200 [place] # (Auto) 800 Eos # (Auto) 0 Baso # (Auto) 0 Sodium 143 Potassium 3.2 L Chloride 105 Carbon Dioxide 22 BUN 5 L Creatinine 0.42 L Estimated GFR > 60 BUN/Creatinine Ratio 11.9 Glucose 121 H Calcium 9.4 Total Bilirubin 1.8 H AST 21 ALT 21 Alkaline Phosphatase 56 Total Protein 7.2 Albumin 4.6 Globulin 2.6 Albumin/Globulin Ratio 1.8 Lipase 38 Assessment & Plan Assessment & Plan narrative: 1. Abdomen pain and nausea and vomiting inpatient with history of recurrent bilious vomiting he was now status post recent bariatric revision surgery with Julieta-en-Y and partial gastrectomy. Her symptoms remained persistent and active. PLAN: -symptomatic treatment. -monitor stool output. -surveillance for fevers. Anticipate 1 midnight in the hospital, supports observation status. Full resuscitation. Time-Based Coding :: 35 min spent with patient and on the chart (including review of chart, obtaining history, exam, reviewing outside data, placing orders, documenting exam and treatment plan, and counseling patient) on 08/01. Quality MIPS - Admit I confirm the patient?s Advance Care Plan is present, Code status is documented, Surrogate decision maker is in patient?s record [If Yes, STOP here]: Yes MIPS - Meds 'Current medications' to include all prescriptions, [id number] products, herbals, cannabis/cannabidiol products, and vitamin/mineral/dietary (nutritional) supplements. I have utilized all available resources to obtain, update, or review the patient?s current medications. [If Yes, STOP here]: Yes
[2025-08-01] MEDS: POTASSIUM CHLORIDE IN WATER 10 MEQ/100 ML PIGGYBACK 100 MEQ IV ×2 (08:20→10:15)
[2025-08-01] MEDS: ONDANSETRON 4 MG/2 ML INJ IV ×3 (09:03→20:02)
--- NOTE | 2025-08-01 10:52 | DIET.CONS ---
Dietary Consultation Note Admission Date: 08/01/2025 06:30 Assessment: 44 y F admitted for nausea, abd pain, vomiting. Dietitian screened for pt with history of protein calorie malnutrition and complications from bariatric surgery. EMR reviewed. Had revision on 07/08 to paulo-en-Y. Per PCP note on 07/25, pt has been unable to get adequate hydration or consume protein supplements as prescribed by bariatric dietitian. Has not advanced to pureed diet. Less than 50% of estimated energy needs being met since surgery (3 weeks). Pt with hx of acute on chronic malnutrition before surgery r/t difficulty consuming adequate PO intakes with frequent episodes of bilious vomiting from bariatric post op complication of bile acid reflux. Weight history: 01/17/25: 90.7 kg 03/18/25 89.5 kg 05/10/25 86.1 kg 06/02/25 84.5 kg 07/08/25 84.7 kg 07/17/25 79.3 kg Ht: 165.1 cm Wt: 74.843 kg BMI: 29.8 UBW: 84.538 kg on 06/02/25. Upon review of scanned in hospitalization report, pt was 84.7 kg on 07/08/25 as well. (-11% weight loss within 1 month, severe) Last BM: () MNA: Maxwell Score: 20 Diet: 08/01/25 04:44 NPO Diet Diet Modifications: NPO Type: NPO except for Meds Labs: RBC 4.29 X10^6/uL (4.0-5.2) 08/01/25 02:52 Hgb 11.6 g/dL (12.0-16.0) L 08/01/25 02:52 Hct 34.2 % (36-46) L 08/01/25 02:52 Creatinine 0.42 mg/dL (0.52-1.04) L 08/01/25 02:52 Nutrition Diagnosis: Severe acute protein calorie malnutrition related to alterations in GI tract structure/function as evidenced by 11% weight loss within 1 month (severe) and 3 weeks of <50% of estimated energy needs (severe), post-op bariatric revision surgery with continued nausea and vomiting and unable to advance diet beyond liquids at home Interventions: Pt is NPO, monitoring days NPO d/t severe malnutrition EER: 1725 kcals (23 kcals/kg per BMI) 85-100 g protein (1.2-1.5 g/kg of adjusted IBW per recent GI surgery and malnutrition) Monitoring/Evaluations: Monitoring for days NPO and start of protein supplementation when diet advanced Electronically Signed by: Ritika Evans 08/01/25 10:52 Clinical Dietitian [address] [address]
[2025-08-01] MEDS: SODIUM CHLORIDE 0.9% 1,000 ML 100 ML IV ×2 (12:30→21:15)
[2025-08-01] MEDS: PROCHLORPERAZINE 10 MG/2 ML VIAL 5 MG IV ×2 (14:48→21:14)
[2025-08-02] MEDS: ONDANSETRON 4 MG/2 ML INJ IV (00:06)
[2025-08-02 03:50] VITALS: BP 118/83; PULSE 58
[2025-08-02] MEDS: PROCHLORPERAZINE 10 MG/2 ML VIAL 5 MG IV ×3 (03:50→20:23)
[2025-08-02] MEDS: SODIUM CHLORIDE 0.9% 1,000 ML 100 ML IV ×2 (06:31→22:38)
[2025-08-02 06:50] LABS: Hematocrit 28.3 % (36-46); Hemoglobin 9.4 g/dL (12.0-16.0); Mean Corpuscular HGB Conc 33.1 % (30-36); Mean Corpuscular Hemoglobin 26.6 PG (26-34); Mean Corpuscular Volume 80.4 fL (80-100); Platelet Count 224 X10^3/uL (150-400)
[2025-08-02 07:01] LABS: Alanine Aminotransferase 17 IU/L (<35); Albumin 3.1 g/dL (3.5-5.0); Albumin Globulin Ratio 1.5 (1.0-2.8); Alkaline Phosphatase 41 U/L (38-126); Blood Urea Nitrogen 3 mg/dL (7-17); Calcium 8.6 mg/dL (8.4-10.2); Carbon Dioxide 26 mmol/L (22-32); Chloride 108 mmol/L (98-107); Estimated Glomerular Filt Rate > 60 mL/min (>60); Globulin 2.1 g/dL (1.7-4.1); Glucose 89 mg/dL (70-99); HEMOLYSIS < 15 (0-50); Potassium 3.1 mmol/L (3.4-5.1); Sodium 140 mmol/L (137-145); Total Protein 5.2 g/dL (6.3-8.2)
--- NOTE | 2025-08-02 07:39 | PM.PN.1 ---
Subjective Subjective Interval history: S: She feels a little bit better today. Less abdominal pain and nausea. O: VSS NAD, alert and oriented. Fluent speech. Lungs are clear, normal rate and effort. Heart is regular, no murmur gallop or rub. Abdomen is soft, non distended. Extremities are free of edema. IMAGING: CTAP (07/29):: Radiologist's impression: Mild persistent circumferential wall thickening of the colon with mild pericolonic stranding. Findings may represent mild colitis either infectious or inflammatory in etiology. No evidence for acute diverticulitis. No evidence for small bowel obstruction. Moderate fecal burden in the distal colon and rectum. Interval improvement of previously described postoperative changes of the ventral abdomen from recent laparoscopic surgery. No evidence for abscess formation . Other chronic/non-acute findings as above. A/P: 1. Abdomen pain and nausea and vomiting inpatient with history of recurrent bilious vomiting he was now status post recent bariatric revision surgery with Julieta-en-Y and partial gastrectomy. Her symptoms remained persistent and active. PLAN: -symptomatic treatment. -monitor stool output. -surveillance for fevers. -slow advance of diet. Anticipate 1 more night in the hospital for symptom control. ELIZABETH is August 03. Exam Vital Signs (past 8 hours): - 08/02/25 03:50 Pulse Rate 58 L Blood Pressure 118/83 Oxygen Delivery Method Room Air Oxygen Flow Rate 0 Objective Labs 08/02/25 06:00 08/02/25 06:00 Labs: Laboratory Results - last 24 hr 08/02/25 06:00 WBC 5.8 RBC 3.52 L Hgb 9.4 L Hct 28.3 L MCV 80.4 MCH 26.6 MCHC 33.1 RDW 16.1 H Plt Count 224 Sodium 140 Potassium 3.1 L Chloride 108 H Carbon Dioxide 26 BUN 3 L Creatinine 0.37 L Estimated GFR > 60 BUN/Creatinine Ratio 8.1 Glucose 89 Calcium 8.6 Total Bilirubin 1.2 AST 20 ALT 17 Alkaline Phosphatase 41 Total Protein 5.2 L Albumin 3.1 L Globulin 2.1 Albumin/Globulin Ratio 1.5 PFSH Medical History Abdominal pain Bile reflux gastritis Left corneal abrasion Headache Polycystic ovary disease Celiac disease GERD with apnea Hypertension Bipolar disorder Surgical History H/O: hysterectomy Status post tubal ligation History of section H/O abdominoplasty H/O oophorectomy H/O gastric sleeve History of cholecystectomy History of appendectomy Social History marital status: household members: significant other and children lives independently: Yes occupational status: employed Smoking Status: Never smoker alcohol intake: never substance use type: marijuana Assessment & Plan Time-Based Coding :: [TOTAL MINUTES] spent with patient and on the chart (including review of chart, obtaining history, exam, reviewing outside data, placing orders, documenting exam and treatment plan, and counseling patient) on [DATE].
[2025-08-02] MEDS: POTASSIUM CHLORIDE IN WATER 10 MEQ/100 ML PIGGYBACK 100 MEQ IV ×4 (09:36→14:39)
[2025-08-02 12:31] VITALS: BP 138/60; PULSE 71; RESP 16; TEMP 36.2; O2SAT 100
--- NOTE | 2025-08-02 12:52 | CM.DANOTE ---
DCP Assessment note pt is a 44yo F well known for recent admissions to this institution for N/V. per chart, pt had her surgery 07/08 a robotic assisted paraesophageal hernia repair, and a gastric sleeve conversion to a Julieta-en-Y as well as adhesion lysis and partial gastrectomy (H&P). per chart review/provider report in rounds, slow improvement. clears today. advance diet pending her ability to tolerate. potential dc tomorrow. per chart review, pt has returned home with spouse support at dc. no CM needs. no new needs anticipated at this time. MUNITIONS HANDLER SUPERVISOR attempted to meet with pt in room, appeared sleeping. allowed to rest. P: anticipate dc home in a day or two with OP f/u. no CM needs at this time. will continue to follow in case additional DCP needs should arise GIO Mercer Discharge Planning/Care Management CM Discharge Assessment Start: 08/01/25 08:08 Freq: Status: Active Protocol: Document 08/02/25 12:49 (Rec: 08/02/25 12:52 [id number]) Discharge Planning Assessment Assigned Discharge GIO Maddox Restorative Coordinator Provider Sarah Dunbar Insurance [place] DP/Assigned Bobo, spouse Designee Name Contact Information [phone] Advance Directives? No Advance Directives No on File History Provided By Patient,Medical Record Prior Living House Arrangements Household Members significant other,children Type of Drives own vehicle transporation used prior to admit Independent with ADL Yes 's Is patient alert and Yes oriented? Comment Patient has a bath chair to help her relax in shower if she has a migraine. Comment Home w/ spouse expected. Discharge Plan Home Transportation Spouse can transport home at d/c Arrangement Referrals Initiated None needed Additional Comment Likely outpt f/u with Surgeon. Whiteboard Updated No in Patient Room with name and ext. # of Bus Person Dishwasher Review Status In Process Please Provide Date 08/02/25 Initial DC Assessment Was Performed Next Review Type Continued Stay Review
[2025-08-02 20:10] VITALS: BP 144/103; PULSE 70; RESP 18; TEMP 36.5; O2SAT 100
[2025-08-03 05:02] LABS: Hematocrit 30.8 % (36-46); Hemoglobin 10.2 g/dL (12.0-16.0); Mean Corpuscular HGB Conc 33.2 % (30-36); Mean Corpuscular Hemoglobin 26.7 PG (26-34); Mean Corpuscular Volume 80.4 fL (80-100); Platelet Count 232 X10^3/uL (150-400)
[2025-08-03 05:11] LABS: Magnesium 1.4 mg/dL (1.6-2.3)
[2025-08-03 05:13] LABS: Alanine Aminotransferase 30 IU/L (<35); Albumin 3.3 g/dL (3.5-5.0); Albumin Globulin Ratio 1.5 (1.0-2.8); Alkaline Phosphatase 47 U/L (38-126); Calcium 8.6 mg/dL (8.4-10.2); Carbon Dioxide 27 mmol/L (22-32); Chloride 108 mmol/L (98-107); Estimated Glomerular Filt Rate > 60 mL/min (>60); Globulin 2.2 g/dL (1.7-4.1); Glucose 86 mg/dL (70-99); HEMOLYSIS < 15 (0-50); Potassium 3.4 mmol/L (3.4-5.1); Sodium 140 mmol/L (137-145); Total Protein 5.5 g/dL (6.3-8.2)
[2025-08-03 05:21] LABS: Blood Urea Nitrogen 2 mg/dL (7-17)
[2025-08-03] MEDS: PROCHLORPERAZINE 10 MG/2 ML VIAL 5 MG IV (08:26)
[2025-08-03] MEDS: MAGNESIUM SULFATE 2 GM/50 ML PIGGYBACK IV (08:35)
[2025-08-03] MEDS: POTASSIUM CHLORIDE IN WATER 10 MEQ/100 ML PIGGYBACK 100 MEQ IV ×2 (08:38→09:51)
--- NOTE | 2025-08-03 10:48 | DIET.PN1 ---
Dietary Progress Note Assessment: F/u Met with pt at bedside. Reports good, close support with bariatric dietitian OP since her surgery, working closely to meet protein needs with ongoing N/V. Only tolerates permier protein supplementation. Tolerated all her yogurt and juice this morning. Reports she will d/c today and f/u with dietitian OP. Weight history: 01/17/25: 90.7 kg 03/18/25 89.5 kg 05/10/25 86.1 kg 06/02/25 84.5 kg 07/08/25 84.7 kg 07/17/25 79.3 kg Ht: 165.1 cm Wt: 74.843 kg BMI: 27.4 Last BM: 08/01/25 (08/01/25 12:28) MNA: 8 Maxwell Score: 19 Diet: 08/02/25 Lunch Full Liquid Diet Diet Modifications: Nutrition Percent Meal Consumed 100% 08/02/25 18:00 Labs: RBC 3.83 X10^6/uL (4.0-5.2) L 08/03/25 04:20 Hgb 10.2 g/dL (12.0-16.0) L 08/03/25 04:20 Hct 30.8 % (36-46) L 08/03/25 04:20 Creatinine 0.36 mg/dL (0.52-1.04) L 08/03/25 04:20 Electronically Signed by: Ritika Evans 08/03/25 10:48 Clinical Dietitian [address] [address]
--- NOTE | 2025-08-03 11:29 | PM.DS.1 ---
History of Present Illness History of Present Illness Chief complaint: Abdominal Pain, Vomiting Narrative: Patient was a 44-year-old female with a history of cyclic bilious vomiting which was felt to relate reflux. She underwent revision surgery at [facility] on July 08 at which time she underwent a robotic assisted paraesophageal hernia repair, and a gastric sleeve conversion to a Julieta-en-Y as well as adhesion lysis and partial gastrectomy. Since surgery she was had persistent nausea and vomiting. She did follow up with bariatric surgery at [facility] and was asked to continue a clear liquid to full liquid diet. She was had scant bowel movements. She was epigastric abdominal pain. She also has persistent nausea and vomiting with a number of ER visits in the past 2 weeks. Discharge Providers Provider Date of admission: 08/01/25 06:30 Discharge Date: 08/03/25 Primary care physician: Sarah Dunbar MD Consults: None. Discharge provider: Chris Starks MD Summary Hospital Course Discharge Diagnosis: 1. Abdomen pain and nausea and vomiting inpatient with history of recurrent bilious vomiting he was now status post recent bariatric revision surgery with Julieta-en-Y and partial gastrectomy. Hospital Course: She was admitted with recurrent pain and vomiting. She was treated symptomatically and hydrate with IV fluids. She would good improvement over the next 2 days. On the day of discharge she had been able to eat without difficulty and felt ready to return home. She was closely involved with bariatric surgery if she would her surgery on July 08. They have advised her to continue with small amounts of food at a time. Status at Discharge Cognitive/behavioral status at discharge: oriented Functional status at discharge: independent ambulation Overall status at discharge: patient is back to baseline Time Spent with Patient Time spent: Greater than 30 minutes Exam Vital Signs (past 8 hours): Oxygen Delivery Method Room Air Oxygen Flow Rate 0 Narrative Exam Narrative: NAD, alert and oriented. Fluent speech. Lungs are clear, normal rate and effort. Heart is regular, no murmur gallop or rub. Abdomen is soft, non distended. Extremities are free of edema. Objective Imaging CT scan - abdomen: Radiologist's impression: CTAP (07/29):: Radiologist's impression: Mild persistent circumferential wall thickening of the colon with mild pericolonic stranding. Findings may represent mild colitis either infectious or inflammatory in etiology. No evidence for acute diverticulitis. No evidence for small bowel obstruction. Moderate fecal burden in the distal colon and rectum. Interval improvement of previously described postoperative changes of the ventral abdomen from recent laparoscopic surgery. No evidence for abscess formation . Other chronic/non-acute findings as above. Labs 08/03/25 04:20 08/03/25 04:20 Labs: Laboratory Results - last 24 hr 08/03/25 04:20 WBC 5.7 RBC 3.83 L Hgb 10.2 L Hct 30.8 L MCV 80.4 MCH 26.7 MCHC 33.2 RDW 16.4 H Plt Count 232 Sodium 140 Potassium 3.4 Chloride 108 H Carbon Dioxide 27 BUN 2 L Creatinine 0.36 L Estimated GFR > 60 BUN/Creatinine Ratio 5.6 L Glucose 86 Calcium 8.6 Magnesium 1.4 L Total Bilirubin 1.3 AST 29 ALT 30 Alkaline Phosphatase 47 Total Protein 5.5 L Albumin 3.3 L Globulin 2.2 Albumin/Globulin Ratio 1.5 PFSH Medical History Abdominal pain Bile reflux gastritis Left corneal abrasion Headache Polycystic ovary disease Celiac disease GERD with apnea Hypertension Bipolar disorder Surgical History H/O: hysterectomy Status post tubal ligation History of section H/O abdominoplasty H/O oophorectomy H/O gastric sleeve History of cholecystectomy History of appendectomy Social History marital status: household members: significant other and children lives independently: Yes occupational status: employed Smoking Status: Never smoker alcohol intake: never substance use type: marijuana Discharge Assessment & Plan Assessment and Plan Assessment: As above. Plan of Treatment: Continue with symptomatic meds at home, stay in touch with bariatric surgery, small amounts of food at a time as advised by bariatric surgery. Follow up as scheduled. Discharge Plan Discharge Plan Patient Disposition: Home Provider Discharge Comment: Stable for discharge. Discharge orders & Medications Prescriptions: Continued prochlorperazine maleate [Compazine] 10 mg tablet 10 mg PO TID PRN (Reason: nausea and vomiting) Qty: 90 3RF oxycodone 5 mg tablet 5 mg PO BID PRN (Reason: pain) Qty: 30 0RF clonazepam 0.5 mg tablet 0.5 mg PO BID Qty: 60 5RF lamotrigine 100 mg tablet 100 mg PO DAILY Qty: 90 3RF Brennen-plex 85 mg PO DAILY lisinopril 5 mg tablet 5 mg PO DAILY polyethylene glycol 3350 17 gram/dose powder 17 g PO BID vitamin d-3 10,000 unit PO DAILY topiramate [Topamax] 25 mg Tablet 50 mg PO BID Qty: 90 0RF ondansetron 4 mg tablet,disintegrating 4 mg PO Q6H PRN (Reason: nausea and vomiting) Qty: 30 1RF promethazine 25 mg suppository 25 mg ME Q6H PRN (Reason: nausea and vomiting) Qty: 12 0RF metoclopramide HCl [Reglan] 10 mg tablet 10 mg PO Q6H PRN (Reason: nausea and vomiting) Qty: 20 0RF Medication counseling provided by Pharmacist: No Follow up/Referrals: Sarah Dunbar MD [Primary Care Provider, [facility]] Discharge Health Status Multidrug resistant organism: No MDRO Diet/Activity/Treatments Diet: Full Liquid Diet comment: Small amounts of food at a time. Visit Report/Discharge Packet Instructions: DI for Vomiting -- Adult Stand Alone Forms: Patient Portal/API Discharge Data Primary Care Provider: Sarah Dunbar Attending Provider: Dionicio Mcmullen Admit Date/Time: 08/01/25 06:30
--- NOTE | 2025-08-03 12:04 | PC.NURSE ---
Patient A&OX4, VSS, afebrile on RA. She c/o pain upon awakening, but states she was able to sleep through most of the night w/o awakening due to pain or N/V. She tolerates full liquid small bites for breakfast. MD evaluated patient at bedside and clears her for discharge home today. She acknowledges understanding of follow up with her GI surgeon, medications, as well as diet precautions. She is escorted by KELP OR SEAGRASS GATHERER to private vehicle with spouse for d/c home today at approximately 1140 pm with all of her belongings.
== END 2025-08-03 11:45 | disposition home or self-care (01) ==
LOC: ED 04:43 → AC 06:31
PROVIDERS: Hospitalist; Pharmacist Pharmacist Clinician (PhC)/ Clinical Pharmacy Specialist; Admitting Provider Internal Medicine; Emergency Provider Emergency Medicine; PCP Student in an Organized Health Care Education/Training Program; Visit Provider Internal Medicine
DX: R10.9 Unspecified abdominal pain (principal); R11.2 Nausea with vomiting, unspecified; Z98.84 Bariatric surgery status
CPT/HCPCS: 36415; 80053; 83690; 83735; 85025; 85027; 96361; 96365; 96366; 96368; 96375; 96376; 99284; 99291; G0378; J0780; J1171; J1200; J1790; J2405; J3475; J7030

== ENCOUNTER 2025-08-08 07:37 | Emergency (ER) | payer OTHER, SELFPAY ==
[2025-08-01 12:28] VITALS: BMI 27.4
[2025-08-08 07:43] VITALS: BP 149/85; PULSE 61; RESP 22; TEMP 37.1; O2SAT 94; BMI 27.4
--- NOTE | 2025-08-08 07:50 | ED.ABDPAIN ---
HPI - Abdominal Pain General Chief Complaint: Abdominal Pain Stated Complaint: Abdominal pain , N/V 1 day Time Seen by Provider: 08/08/25 07:38 Source: patient Mode of arrival: Ambulatory History of Present Illness HPI narrative: Patient brought here by for recurrent abdominal pain. History of gastric sleeve gastric bypass hiatal hernia repair done last month at [facility]. Patient had 2 visits here July 29 and July 17 last month. As well as 2 visits in May. Patient also had 1 visit here in June. Please note patient has had multiple CAT scan imaging for this recurrent abdominal pain. Patient has had 16 CAT scans since January of this year at this hospital alone. Patient has history of hysterectomy. Related Data Home Medications ?Medication ?Instructions ?Recorded ?Confirmed Brennen-plex 85 mg PO DAILY 07/12/25 08/01/25 lisinopril 5 mg tablet 5 mg PO DAILY 07/12/25 08/01/25 polyethylene glycol 3350 17 17 g PO BID 07/12/25 08/01/25 gram/dose oral powder vitamin d-3 10,000 unit PO DAILY 07/12/25 08/01/25 Previous Rx's ?Medication ?Instructions ?Recorded clonazepam 0.5 mg tablet 0.5 mg PO BID #60 tabs 03/18/25 lamotrigine 100 mg tablet 100 mg PO DAILY #90 tabs 03/18/25 ondansetron 4 mg disintegrating 4 mg PO Q6H PRN nausea and 03/21/25 tablet vomiting #30 tabs topiramate 25 mg tablet (Topamax) 50 mg (2 x 25 mg) PO BID #90 tabs 03/21/25 prochlorperazine maleate 10 mg 10 mg PO TID PRN nausea and 05/23/25 tablet (Compazine) vomiting #90 tabs oxycodone 5 mg tablet 5 mg PO BID PRN pain #30 tabs 07/25/25 metoclopramide HCl 10 mg tablet 10 mg PO Q6H PRN nausea and 07/31/25 (Reglan) vomiting #20 tabs promethazine 25 mg rectal 25 mg CA Q6H PRN nausea and 07/31/25 suppository vomiting #12 ea cefdinir 300 mg capsule 300 mg PO BID #10 caps 08/08/25 naloxone 4 mg/actuation nasal 4 mg intranasal Q2M PRN opioid 08/08/25 spray (Narcan) overdose #2 ea ondansetron 4 mg disintegrating 4 mg PO Q6H PRN nausea and 08/08/25 tablet vomiting #20 tabs oxycodone-acetaminophen 5 mg-325 1 tab PO Q4-6H PRN pain #20 tabs 08/08/25 mg tablet (Percocet) Allergies Allergy/AdvReac Type Severity Reaction Status Date / Time vancomycin Allergy Intermediate ITCHING Verified 08/08/25 07:43 gluten Allergy Celiac Verified 08/08/25 07:43 NSAIDS (Non-Steroidal AdvReac Mild Gastrointestinal Verified 08/08/25 07:43 Anti-Inflamma Upset benzonatate (From Tessalon AdvReac Unknown Hives Verified 08/08/25 07:43 Perles) escitalopram (From Lexapro) AdvReac Unknown Hallucinati Verified 08/08/25 07:43 ng Review of Systems Review of Systems Narrative: GENERAL: Negative chills, fatigue, malaise, fever, sweats. HEENT: Negative sinus pain, ear pain, sore throat RESPIRATORY: Negative dyspnea, cough CARDIOVASCULAR: Negative chest pain, palpitations GASTROINTESTINAL: Positive vomiting, nausea, abdominal pain : Negative dysuria, frequency, hematuria MUSCULOSKELETAL: Negative muscle or bony pain SKIN: Negative rash, skin lesions NEUROLOGIC: Negative weakness, numbness ROS Unobtainable: All systems reviewed & are unremarkable except as noted in HPI and below Patient History Medical History Abdominal pain Bile reflux gastritis Left corneal abrasion Headache Polycystic ovary disease Celiac disease GERD with apnea Hypertension Bipolar disorder Surgical History H/O: hysterectomy Status post tubal ligation History of section H/O abdominoplasty H/O oophorectomy H/O gastric sleeve History of cholecystectomy History of appendectomy Social History marital status: household members: significant other and children lives independently: Yes occupational status: employed alcohol intake: never substance use type: marijuana alcohol intake frequency: holidays/special occasions only Exam Narrative Exam Narrative: GENERAL: in no distress, not toxic not dyspneic. Patient complaining of epigastric pain at this time. HEAD: Normocephalic. EYES: Pupils equal round ENT: Mucous membranes moist. NECK: Trachea midline. CARDIOVASCULAR: Regular rate and rhythm RESPIRATORY: Clear to auscultation. Breath sounds equal bilaterally. No wheezes, rales, or rhonchi. GASTROINTESTINAL: Abdomen soft, reproducible moderate tenderness epigastric area. No peritoneal signs no guarding no rebound. No CVA tenderness. Bowel sounds are present. BACK: No flank tenderness. EXTREMITIES: No gross deformities. NEURO: AOx4. Clear speech SKIN: Warm and dry PSYCH: Not anxious, is cooperative Initial Vital Signs Initial Vital Signs: Vital Signs Temperature 98.7 F 08/08/25 07:43 Pulse Rate 61 08/08/25 07:43 Respiratory Rate 22 08/08/25 07:43 Blood Pressure 149/85 H 08/08/25 07:43 Pulse Oximetry 94 08/08/25 07:43 Oxygen Delivery Method Room Air 08/08/25 07:43 Course Orders Ordered: Discontinued Medications Cefdinir (Cefdinir 300 Mg Capsule) 300 mg PO NOW ONE Stop: 08/08/25 14:11 Last Admin: 08/08/25 14:42 Dose: 300 mg Documented By: PRIYA Hydromorphone HCl (Hydromorphone 1 Mg/Ml Syringe) 1 mg IV Q2HR BENITO Stop: 08/08/25 11:01 Last Admin: 08/08/25 12:30 Dose: Not Given Documented By: Admin: 08/08/25 09:44 Dose: 1 mg Documented By: Admin: 08/08/25 08:25 Dose: 1 mg Documented By: PRIYA Hydromorphone HCl (Hydromorphone 1 Mg/Ml Syringe) 1 mg IV Q2HR PRN PRN Reason: pain Last Admin: 08/08/25 13:00 Dose: 1 mg Documented By: PRIYA Sodium Chloride (Normal Saline 0.9%) 1,000 mls @ 1,000 mls/hr IV BOLUS ONE Stop: 08/08/25 08:47 Last Infusion: 08/08/25 10:40 Dose: Infused Documented By: Admin: 08/08/25 08:35 Dose: 1,000 mls/hr Documented By: PRIYA Sodium Chloride (Normal Saline 0.9%) 1,000 mls @ 1,000 mls/hr IV BOLUS ONE Stop: 08/08/25 12:02 Last Infusion: 08/08/25 13:45 Dose: Infused Documented By: Admin: 08/08/25 11:15 Dose: 1,000 mls/hr Documented By: PRIYA Pantoprazole Sodium (Pantoprazole 40 Mg Vial) 40 mg IV NOW ONE Stop: 08/08/25 07:50 Last Admin: 08/08/25 08:36 Dose: 40 mg Documented By: PRIYA Prochlorperazine (Prochlorperazine 10 Mg/2 Ml Vial) 10 mg IV NOW ONE Stop: 08/08/25 07:49 Last Admin: 08/08/25 08:28 Dose: 10 mg Documented By: PRIYA Vital Signs Vital signs: Vital Signs - 8 hr 08/08/25 07:43 08/08/25 08:28 08/08/25 09:48 Temperature 98.7 F Pulse Rate 61 61 Respiratory Rate 22 Blood Pressure 149/85 H 149/85 H 166/95 H Pulse Oximetry 94 Oxygen Delivery Method Room Air 08/08/25 14:04 Temperature Pulse Rate 89 Respiratory Rate 16 Blood Pressure 148/89 H Pulse Oximetry 98 Oxygen Delivery Method Room Air MDM - Abdominal Pain Lab Data 08/08/25 08:31 08/08/25 08:31 Labs: Lab Results 08/08/25 08/08/25 Range/Units 08:31 12:37 WBC 8.1 (4.5-11.0) X10^3/uL RBC 4.77 (4.0-5.2) X10^6/uL Hgb 12.7 (12.0-16.0) g/dL Hct 38.1 (36-46) % MCV 80.0 (80-100) fL MCH 26.6 (26-34) PG MCHC 33.3 (30-36) % RDW 16.6 H (11.6-14.8) % Plt Count 352 (150-400) X10^3/uL Neut % (Auto) 72.5 (50-75) % Lymph % (Auto) 20.1 L (25-40) % Benson % (Auto) 6.9 (3-14) % Eos % (Auto) 0.1 L (2-4) % Baso % (Auto) 0.4 (0-2) % Neut # (Auto) 5900 (9252-0739) /uL Lymph # (Auto) 1600 (7795-1176) /uL Benson # (Auto) 600 (0-900) /uL Eos # (Auto) 0 (0-450) /uL Baso # (Auto) 0 (0-100) /uL Sodium 139 (137-145) mmol/L Potassium 3.5 (3.4-5.1) mmol/L Chloride 101 (98-107) mmol/L Carbon Dioxide 23 (22-32) mmol/L BUN 7 (7-17) mg/dL Creatinine 0.43 L (0.52-1.04) mg/dL Estimated GFR > 60 (>60) mL/min BUN/Creatinine Ratio 16.3 (6-22) Glucose 138 H (70-99) mg/dL Calcium 9.7 (8.4-10.2) mg/dL Total Bilirubin 2.4 H (0.2-1.3) mg/dL AST 34 (14-36) IU/L ALT 33 (<35) IU/L Alkaline Phosphatase 71 (38-126) U/L Total Protein 7.7 (6.3-8.2) g/dL Albumin 4.8 (3.5-5.0) g/dL Globulin 2.9 (1.7-4.1) g/dL Albumin/Globulin Ratio 1.7 (1.0-2.8) Lipase 35 (23-300) U/L Urine RBC 1-5/hpf (0-5/HPF) Urine WBC 10-30/hpf H (0-5/HPF) Ur Squamous Epith Cells 1-5 /hpf (0-5/HPF) Urine Bacteria Many (>30) H (None) Ur Culture Indicated? Specimen cultured Vol Urine Centrifuged 10ml (spun) Point of care testing: Urine Dip Bedside Urine Glucose Negative Bedside Urine Bilirubin - Negative Bedside Urine Ketone +++ 80 Urine Specific [place] 1.020 Bedside Urine Occult Blood +/- Bedside Urine pH 6.0 Bedside Urine Protein + 30 Bedside Urine Urobilinogen - Negative Bedside Urine Nitrite + Positive Bedside Urine Leukocytes ++ 125 Esterase Imaging Data Abdominal x-ray: Radiologist's Impression: [address] [address] XRay Report Signed Patient: Janet Escobar MR#: [id number] : 1980 Acct:[id number] Age/Sex: 44 / F Date of Service: 08/08/25 Loc: ED Accession Number: [id number] Procedure: XR abdomen 1V Ordering Provider: Nash Desir MD PROCEDURE: XR ABDOMEN 1V INDICATIONS: Abdominal pain TECHNIQUE: One view of the abdomen acquired. COMPARISON: [facility], CT, CT ABDOMEN PELVIS W CON, 07/17/2025, 4:59. [facility], CT, CT ABDOMEN PELVIS W CON, 07/29/2025, 16:31. [facility], CR, XR ABDOMEN 3V, 01/30/2025, 19:22. FINDINGS: Surgical changes and devices: Surgical clips are seen in gallbladder fossa. Postsurgical changes also noted in left upper quadrant abdomen likely related to prior gastric bypass. Bowel: Bowel gas pattern is nonobstructive. No gross pneumoperitoneum. Soft tissues: No suspicious abdominal calcifications. Visualized solid organ contours appear normal in size. Bones: No suspicious bony lesions. IMPRESSION: No evidence of bowel obstruction or gross pneumoperitoneum. Dictated by: Navarro Ceballos M.D. on 08/08/2025 at 8:47 Approved by: Navarro Ceballos M.D. on 08/08/2025 at 8:48 [facility] Narrative Medical decision making narrative: Patient brought here by for recurrent abdominal pain. History of gastric sleeve gastric bypass hiatal hernia repair done last month at [facility]. Patient had 2 visits here July 29 and July 17 last month. As well as 2 visits in May. Patient also had 1 visit here in June. Please note patient has had multiple CAT scan imaging for this recurrent abdominal pain. Patient has had 16 CAT scans since January of this year at this hospital alone. Patient has history of hysterectomy. MDM After history and exam, CBC CMP urinalysis lipase x-ray abdomen Dilaudid Compazine normal saline Differential considered: Includes but not limited to bowel obstruction recurrent abdominal pain chronic abdominal pain Medical records reviewed: July 31, 2025 ER visit here., multiple CT imaging completed this year. Lab Test results independently reviewed as above. Pertinent findings: WBC 8.1 hemoglobin 12.7, sodium 139 potassium 3.5 BUN 7 creatinine 0.43 GFR greater than 60 AST 34 ALT 33 lipase 35 Imaging studies independently reviewed: X-ray abdomen no acute finding Consultations: Re-evaluations: 8:57 a.m.. Updated patient results. I did review with her she has had 16 cat scan since May of this year. I did recommend with her to go with her providers in ERs to consider options other than CT imaging. This is a lot of radiation this year. She agrees. Also she will follow up with the primary caregiver referral for a med port as she has had very difficult IV access and has had multiple IV placements with frequent ER visits. 11:00 a.m. Patient feeling better. Awake alert oriented x4. No respiratory distress. Repeat normal saline ordered. Patient has not been able to urinate yet. 2:10 p.m.. Patient feeling much better. No nausea or vomiting. Reviewed the results. She states she feels good to go home. She thinks the UTI is likely causing her nausea and vomiting. Prescriptions will be provided, refill her oxycodone, Zofran and start Omnicef. She desires discharge home. Discussion: Appropriate for discharge home. Exam is reassuring. Return precautions reviewed. Laboratory studies reassuring. Pain controlled. She has providers to follow up with. Diagnosis: Chronic abdominal pain, urinary tract infection Discharge Plan Departure Patient Disposition: Home Clinical Impression: Acute UTI, Abdominal pain, recurrent Vomiting Qualifiers: Vomiting type: unspecified Nausea presence: with nausea Qualified Code(s): R11.2 - Nausea with vomiting, unspecified Instructions: DI for Urinary Tract Infection (UTI), DI for Abdominal Pain-Adult, DI for Vomiting -- Adult Activity Restrictions/Additional Instructions: I am glad you are feeling better. No driving operating machinery today as you have been provided pain medication. Refilled her pain medication has been printed for you. Antibiotics have been started for treating urinary tract infection. Please see your family doctor this week for re-evaluation. Keep well hydrated. Prescriptions: New oxycodone-acetaminophen [Percocet] 5-325 mg tablet 1 tab PO Q4-6H PRN (Reason: pain) Qty: 20 0RF ondansetron 4 mg tablet,disintegrating 4 mg PO Q6H PRN (Reason: nausea and vomiting) Qty: 20 0RF cefdinir 300 mg capsule 300 mg PO BID Qty: 10 0RF naloxone [Narcan] 4 mg/actuation spray,non-aerosol 4 mg intranasal Q2M PRN (Reason: opioid overdose) Qty: 2 0RF Rx Instructions: spray 1 dose into ONE nostril; alternate nostrils w each dose until help arrives No Action prochlorperazine maleate [Compazine] 10 mg tablet 10 mg PO TID PRN (Reason: nausea and vomiting) Qty: 90 3RF oxycodone 5 mg tablet 5 mg PO BID PRN (Reason: pain) Qty: 30 0RF clonazepam 0.5 mg tablet 0.5 mg PO BID Qty: 60 5RF lamotrigine 100 mg tablet 100 mg PO DAILY Qty: 90 3RF Brennen-plex 85 mg PO DAILY lisinopril 5 mg tablet 5 mg PO DAILY polyethylene glycol 3350 17 gram/dose powder 17 g PO BID vitamin d-3 10,000 unit PO DAILY topiramate [Topamax] 25 mg Tablet 50 mg PO BID Qty: 90 0RF ondansetron 4 mg tablet,disintegrating 4 mg PO Q6H PRN (Reason: nausea and vomiting) Qty: 30 1RF promethazine 25 mg suppository 25 mg CA Q6H PRN (Reason: nausea and vomiting) Qty: 12 0RF metoclopramide HCl [Reglan] 10 mg tablet 10 mg PO Q6H PRN (Reason: nausea and vomiting) Qty: 20 0RF Referrals: Sarah Dunbar MD [Primary Care Provider, Family Practice] Stand Alone Forms: Patient Portal/API, Work Release Note
[2025-08-08 08:28] VITALS: BP 149/85; PULSE 61
[2025-08-08] MEDS: PROCHLORPERAZINE 10 MG/2 ML VIAL IV (08:28)
--- NOTE | 2025-08-08 08:28 | DI.RAD.S_ITS ---
PROCEDURE: XR ABDOMEN 1V INDICATIONS: Abdominal pain TECHNIQUE: One view of the abdomen acquired. COMPARISON: [facility], CT, CT ABDOMEN PELVIS W CON, 07/17/2025, 4:59. [facility], CT, CT ABDOMEN PELVIS W CON, 07/29/2025, 16:31. [facility], CR, XR ABDOMEN 3V, 01/30/2025, 19:22. FINDINGS: Surgical changes and devices: Surgical clips are seen in gallbladder fossa. Postsurgical changes also noted in left upper quadrant abdomen likely related to prior gastric bypass. Bowel: Bowel gas pattern is nonobstructive. No gross pneumoperitoneum. Soft tissues: No suspicious abdominal calcifications. Visualized solid organ contours appear normal in size. Bones: No suspicious bony lesions. IMPRESSION: No evidence of bowel obstruction or gross pneumoperitoneum. Dictated by: Navarro Ceballos M.D. on 08/08/2025 at 8:47 Approved by: Navarro Ceballos M.D. on 08/08/2025 at 8:48
[2025-08-08] MEDS: SODIUM CHLORIDE 0.9% 1,000 ML 1000 ML IV ×2 (08:35→11:15)
[2025-08-08] MEDS: PANTOPRAZOLE 40 MG VIAL IV (08:36)
[2025-08-08 08:41] LABS: Add Manual Diff / Slide Review NO; Hematocrit 38.1 % (36-46); Hemoglobin 12.7 g/dL (12.0-16.0); Lymphocytes Absolute Auto 1600 /uL (1100-4500); Mean Corpuscular HGB Conc 33.3 % (30-36); Mean Corpuscular Hemoglobin 26.6 PG (26-34); Mean Corpuscular Volume 80.0 fL (80-100); Platelet Count 352 X10^3/uL (150-400)
[2025-08-08 08:53] LABS: Alanine Aminotransferase 33 IU/L (<35); Albumin 4.8 g/dL (3.5-5.0); Albumin Globulin Ratio 1.7 (1.0-2.8); Alkaline Phosphatase 71 U/L (38-126); Blood Urea Nitrogen 7 mg/dL (7-17); Calcium 9.7 mg/dL (8.4-10.2); Carbon Dioxide 23 mmol/L (22-32); Chloride 101 mmol/L (98-107); Estimated Glomerular Filt Rate > 60 mL/min (>60); Globulin 2.9 g/dL (1.7-4.1); Glucose 138 mg/dL (70-99); Lipase 35 U/L (23-300); Potassium 3.5 mmol/L (3.4-5.1); Sodium 139 mmol/L (137-145); Total Protein 7.7 g/dL (6.3-8.2)
[2025-08-08 08:55] LABS: HEMOLYSIS 66 (0-50)
[2025-08-08 09:48] VITALS: BP 166/95
[2025-08-08 12:48] LABS: Culture Indicated Urine Specimen Cultured
[2025-08-08 14:04] VITALS: BP 148/89; PULSE 89; RESP 16; O2SAT 98
[2025-08-08] MEDS: CEFDINIR 300 MG CAPSULE PO (14:42)
== END 2025-08-08 14:20 | disposition home or self-care (01) ==
PROVIDERS: Emergency Provider Emergency Medicine; PCP Student in an Organized Health Care Education/Training Program
DX: N39.0 Urinary tract infection, site not specified (principal); R10.9 Unspecified abdominal pain; R11.2 Nausea with vomiting, unspecified; Z98.84 Bariatric surgery status; Z98.890 Other specified postprocedural states
CPT/HCPCS: 36415; 74018; 80053; 81003; 81015; 83690; 85025; 87077; 87086; 87186; 96361; 96374; 96375; 99284; J0780; J1171; J2470; J7030

== ENCOUNTER 2025-08-12 20:28 | Emergency (ER) | payer OTHER, SELFPAY ==
[2025-08-01 12:28] VITALS: BMI 27.4
[2025-08-12 20:33] VITALS: BP 140/88; PULSE 105; O2SAT 97
[2025-08-12 20:34] VITALS: BP 140/88; PULSE 107; RESP 26; TEMP 37.3; O2SAT 97; BMI 27.4
[2025-08-12 21:00] VITALS: BP 143/68; PULSE 81; RESP 20; O2SAT 97
--- NOTE | 2025-08-12 21:17 | ED.ABDPAIN ---
HPI - Abdominal Pain General Chief Complaint: Abdominal Pain Stated Complaint: Stomach pain, throwing up blood Time Seen by Provider: 08/12/25 21:14 Source: patient Mode of arrival: Ambulatory History of Present Illness HPI narrative: 44-year-old female patient with a history of gastric sleeve bypass surgery done at the end of June for as above reflux and hiatal hernia. She has had epigastric pain waxing and waning ever since then and multiple ER visits including a visit here on 08/08/2025. 2 visits in July. She has had 16 CT scans of the abdomen since January of this year at this hospital alone. Also history of hysterectomy. Related Data Home Medications ?Medication ?Instructions ?Recorded ?Confirmed Brennen-plex 85 mg PO DAILY 07/12/25 08/01/25 lisinopril 5 mg tablet 5 mg PO DAILY 07/12/25 08/01/25 polyethylene glycol 3350 17 17 g PO BID 07/12/25 08/01/25 gram/dose oral powder vitamin d-3 10,000 unit PO DAILY 07/12/25 08/01/25 Previous Rx's ?Medication ?Instructions ?Recorded clonazepam 0.5 mg tablet 0.5 mg PO BID #60 tabs 03/18/25 lamotrigine 100 mg tablet 100 mg PO DAILY #90 tabs 03/18/25 ondansetron 4 mg disintegrating 4 mg PO Q6H PRN nausea and 03/21/25 tablet vomiting #30 tabs topiramate 25 mg tablet (Topamax) 50 mg (2 x 25 mg) PO BID #90 tabs 03/21/25 prochlorperazine maleate 10 mg 10 mg PO TID PRN nausea and 05/23/25 tablet (Compazine) vomiting #90 tabs oxycodone 5 mg tablet 5 mg PO BID PRN pain #30 tabs 07/25/25 metoclopramide HCl 10 mg tablet 10 mg PO Q6H PRN nausea and 07/31/25 (Reglan) vomiting #20 tabs promethazine 25 mg rectal 25 mg PA Q6H PRN nausea and 07/31/25 suppository vomiting #12 ea cefdinir 300 mg capsule 300 mg PO BID #10 caps 08/08/25 naloxone 4 mg/actuation nasal 4 mg intranasal Q2M PRN opioid 08/08/25 spray (Narcan) overdose #2 ea ondansetron 4 mg disintegrating 4 mg PO Q6H PRN nausea and 08/08/25 tablet vomiting #20 tabs oxycodone-acetaminophen 5 mg-325 1 tab PO Q4-6H PRN pain #20 tabs 08/08/25 mg tablet (Percocet) amoxicillin 875 mg-potassium 1 tab PO BID 7 days #14 tabs 08/12/25 clavulanate 125 mg tablet Allergies Allergy/AdvReac Type Severity Reaction Status Date / Time vancomycin Allergy Intermediate ITCHING Verified 08/12/25 20:34 gluten Allergy Celiac Verified 08/12/25 20:34 NSAIDS (Non-Steroidal AdvReac Mild Gastrointestinal Verified 08/12/25 20:34 Anti-Inflamma Upset benzonatate (From Tessalon AdvReac Unknown Hives Verified 08/12/25 20:34 Perles) escitalopram (From Lexapro) AdvReac Unknown Hallucinati Verified 08/12/25 20:34 ng Patient History Medical History Abdominal pain Bile reflux gastritis Left corneal abrasion Headache Polycystic ovary disease Celiac disease GERD with apnea Hypertension Bipolar disorder Surgical History H/O: hysterectomy Status post tubal ligation History of section H/O abdominoplasty H/O oophorectomy H/O gastric sleeve History of cholecystectomy History of appendectomy Social History marital status: household members: significant other and children lives independently: Yes occupational status: employed alcohol intake: never substance use type: marijuana alcohol intake frequency: holidays/special occasions only Exam Initial Vital Signs Initial Vital Signs: Vital Signs Pulse Rate 105 H 08/12/25 20:33 Blood Pressure 140/88 08/12/25 20:33 Pulse Oximetry 97 08/12/25 20:33 Course Orders Ordered: ED Orders 08/12/25 20:55 CBC Auto Diff [Complete Blood Count AUTO DIFF] Stat CMP [Comprehensive Metabolic Panel] Stat Lipase Stat Discontinued Medications Haloperidol (Haloperidol 5 Mg/Ml Vial) 5 mg IV NOW ONE Stop: 08/12/25 21:24 Last Admin: 08/12/25 21:31 Dose: 5 mg Documented By: RLC Hydromorphone HCl (Hydromorphone 1 Mg/Ml Syringe) 1 mg IV NOW ONE Stop: 08/12/25 21:22 Last Admin: 08/12/25 21:31 Dose: 1 mg Documented By: DEMARCUS Sodium Chloride (Normal Saline 0.9%) 1,000 mls @ 1,000 mls/hr IV BOLUS ONE Stop: 08/12/25 22:20 Last Infusion: 08/12/25 22:32 Dose: Infused Documented By: Admin: 08/12/25 21:31 Dose: 1,000 mls/hr Documented By: DEMARCUS Levofloxacin (Levaquin) 500 mg in 100 mls @ 100 mls/hr IV NOW ONE Stop: 08/12/25 22:20 Last Infusion: 08/12/25 22:32 Dose: Infused Documented By: Admin: 08/12/25 21:31 Dose: 100 mls/hr Documented By: DEMARCUS Ondansetron HCl (Ondansetron 4 Mg/2 Ml Inj) 4 mg IV NOW ONE Stop: 08/12/25 21:22 Last Admin: 08/12/25 21:31 Dose: 4 mg Documented By: DEMARCUS Vital Signs Vital signs: Vital Signs - 8 hr 08/12/25 20:33 08/12/25 20:33 08/12/25 20:34 Temperature 99.2 F Pulse Rate 105 H 107 H Respiratory Rate 26 H Blood Pressure 140/88 140/88 Pulse Oximetry 97 97 Oxygen Delivery Method Room Air 08/12/25 21:00 08/12/25 21:00 08/12/25 21:30 Temperature Pulse Rate 81 78 Respiratory Rate 20 Blood Pressure 143/68 H Pulse Oximetry 97 97 Oxygen Delivery Method Room Air 08/12/25 22:00 08/12/25 22:00 08/12/25 22:30 Temperature Pulse Rate 68 86 Respiratory Rate Blood Pressure 115/59 L Pulse Oximetry 98 97 Oxygen Delivery Method 08/12/25 22:30 Temperature Pulse Rate Respiratory Rate Blood Pressure 115/66 Pulse Oximetry Oxygen Delivery Method MDM - Abdominal Pain Lab Data Attestation: I reviewed the patient's lab results. Lab results narrative: CBC reveals WBCs slightly up at 12.4 but otherwise unremarkable. Chemistry panel essentially unremarkable other than slight elevation of bili which was present before. 08/12/25 20:55 12/05/25 20:55 Labs: Lab Results 08/12/25 Range/Units 20:55 WBC 12.4 H (4.5-11.0) X10^3/uL RBC 4.61 (4.0-5.2) X10^6/uL Hgb 12.3 (12.0-16.0) g/dL Hct 36.6 (36-46) % MCV 79.4 L (80-100) fL MCH 26.6 (26-34) PG MCHC 33.5 (30-36) % RDW 15.8 H (11.6-14.8) % Plt Count 418 H (150-400) X10^3/uL Neut % (Auto) 58.6 (50-75) % Lymph % (Auto) 29.8 (25-40) % Rogers % (Auto) 10.8 (3-14) % Eos % (Auto) 0.1 L (2-4) % Baso % (Auto) 0.7 (0-2) % Neut # (Auto) 7300 H (5207-8386) /uL Lymph # (Auto) 3700 (8842-9157) /uL Rogers # (Auto) 1300 H (0-900) /uL Eos # (Auto) 0 (0-450) /uL Baso # (Auto) 100 (0-100) /uL Sodium 139 (137-145) mmol/L Potassium 3.6 (3.4-5.1) mmol/L Chloride 101 (98-107) mmol/L Carbon Dioxide 23 (22-32) mmol/L BUN 11 (7-17) mg/dL Creatinine 0.41 L (0.52-1.04) mg/dL Estimated GFR > 60 (>60) mL/min BUN/Creatinine Ratio 26.8 H (6-22) Glucose 119 H (70-99) mg/dL Calcium 9.5 (8.4-10.2) mg/dL Total Bilirubin 1.4 H (0.2-1.3) mg/dL AST 39 H (14-36) IU/L ALT 22 (<35) IU/L Alkaline Phosphatase 68 (38-126) U/L Total Protein 7.2 (6.3-8.2) g/dL Albumin 4.6 (3.5-5.0) g/dL Globulin 2.6 (1.7-4.1) g/dL Albumin/Globulin Ratio 1.8 (1.0-2.8) Lipase 41 (23-300) U/L MDM Narrative Medical decision making narrative: Patient has had multiple ER visits since her gastric sleeve placed in the end of June. She has had 16 CT scans this year of the abdomen. Chronic abdominal problems with usually reassuring lab work. Again she has essentially reassuring lab work. She does have a UTI which is resistant to her current antibiotic of cefdinir. We will switch to Augmentin. She is feeling better in the ER after fluids and pain medication. I do not think she needs imaging at this point. Patient is instructed to rest, hydrate and take Augmentin as prescribed. Follow up with primary care. Return to the ER if worse Discharge Plan Departure Patient Disposition: Home Clinical Impression: Abdominal pain, chronic, generalized, UTI (urinary tract infection) Instructions: DI for Urinary Tract Infection (UTI), DI for Abdominal Pain-Adult Activity Restrictions/Additional Instructions: Plan: Hydration, rest and supportive care with change of antibiotics. Discontinue cefdinir and start Augmentin. Follow up with your doctor to reassess symptoms. Return to the ER if worse. Prescriptions: New amoxicillin-pot clavulanate 875-125 mg tablet 1 tab PO BID 7 Days Qty: 14 0RF No Action prochlorperazine maleate [Compazine] 10 mg tablet 10 mg PO TID PRN (Reason: nausea and vomiting) Qty: 90 3RF oxycodone 5 mg tablet 5 mg PO BID PRN (Reason: pain) Qty: 30 0RF clonazepam 0.5 mg tablet 0.5 mg PO BID Qty: 60 5RF lamotrigine 100 mg tablet 100 mg PO DAILY Qty: 90 3RF Brennen-plex 85 mg PO DAILY lisinopril 5 mg tablet 5 mg PO DAILY polyethylene glycol 3350 17 gram/dose powder 17 g PO BID vitamin d-3 10,000 unit PO DAILY topiramate [Topamax] 25 mg Tablet 50 mg PO BID Qty: 90 0RF ondansetron 4 mg tablet,disintegrating 4 mg PO Q6H PRN (Reason: nausea and vomiting) Qty: 30 1RF oxycodone-acetaminophen [Percocet] 5-325 mg tablet 1 tab PO Q4-6H PRN (Reason: pain) Qty: 20 0RF ondansetron 4 mg tablet,disintegrating 4 mg PO Q6H PRN (Reason: nausea and vomiting) Qty: 20 0RF cefdinir 300 mg capsule 300 mg PO BID Qty: 10 0RF naloxone [Narcan] 4 mg/actuation spray,non-aerosol 4 mg intranasal Q2M PRN (Reason: opioid overdose) Qty: 2 0RF Rx Instructions: spray 1 dose into ONE nostril; alternate nostrils w each dose until help arrives promethazine 25 mg suppository 25 mg PA Q6H PRN (Reason: nausea and vomiting) Qty: 12 0RF metoclopramide HCl [Reglan] 10 mg tablet 10 mg PO Q6H PRN (Reason: nausea and vomiting) Qty: 20 0RF Referrals: Sarah Dunbar MD [Primary Care Provider, Family Practice] Stand Alone Forms: Patient Portal/API
[2025-08-12 21:30] VITALS: PULSE 78; O2SAT 97
[2025-08-12] MEDS: SODIUM CHLORIDE 0.9% 1,000 ML 1000 ML IV (21:31)
[2025-08-12] MEDS: ONDANSETRON 4 MG/2 ML INJ IV (21:31)
[2025-08-12] MEDS: levoFLOXacin 500 MG/100 ML PIGGYBACK 100 MG IV (21:31)
[2025-08-12] MEDS: HALOPERIDOL 5 MG/ML VIAL IV (21:31)
[2025-08-12 21:54] LABS: Add Manual Diff / Slide Review NO; Hematocrit 36.6 % (36-46); Hemoglobin 12.3 g/dL (12.0-16.0); Lymphocytes Absolute Auto 3700 /uL (1100-4500); Mean Corpuscular HGB Conc 33.5 % (30-36); Mean Corpuscular Hemoglobin 26.6 PG (26-34); Mean Corpuscular Volume 79.4 fL (80-100); Platelet Count 418 X10^3/uL (150-400)
[2025-08-12 22:00] VITALS: BP 115/59; PULSE 68; O2SAT 98
[2025-08-12 22:17] LABS: Alanine Aminotransferase 22 IU/L (<35); Albumin 4.6 g/dL (3.5-5.0); Albumin Globulin Ratio 1.8 (1.0-2.8); Alkaline Phosphatase 68 U/L (38-126); Blood Urea Nitrogen 11 mg/dL (7-17); Calcium 9.5 mg/dL (8.4-10.2); Carbon Dioxide 23 mmol/L (22-32); Chloride 101 mmol/L (98-107); Estimated Glomerular Filt Rate > 60 mL/min (>60); Globulin 2.6 g/dL (1.7-4.1); Glucose 119 mg/dL (70-99); HEMOLYSIS 28 (0-50); Lipase 41 U/L (23-300); Potassium 3.6 mmol/L (3.4-5.1); Sodium 139 mmol/L (137-145); Total Protein 7.2 g/dL (6.3-8.2)
[2025-08-12 22:30] VITALS: BP 115/66; PULSE 86; O2SAT 97
== END 2025-08-12 23:07 | disposition home or self-care (01) ==
PROVIDERS: Emergency Provider Emergency Medicine; PCP Student in an Organized Health Care Education/Training Program
DX: N39.0 Urinary tract infection, site not specified (principal); R10.84 Generalized abdominal pain; Z98.84 Bariatric surgery status
CPT/HCPCS: 80053; 83690; 85025; 96365; 96375; 99283; 99284; J1171; J1630; J1956; J2405; J7030

== ENCOUNTER 2025-08-14 10:30 | Emergency (ER) | payer OTHER, SELFPAY ==
[2025-08-01 12:28] VITALS: BMI 27.4
[2025-08-14] VITALS (35 sets, daily range): BP systolic 128–191; BP diastolic 70–110; PULSE 45–111; RESP 18; TEMP 37; O2SAT 93–100; BMI 27.4
--- NOTE | 2025-08-14 | DI.RAD.S_ITS ---
PROCEDURE: XR CHEST 1V INDICATIONS: NG TUBE PLACEMENT TECHNIQUE: One view of the chest was acquired. COMPARISON: [facility], CR, XR CHEST 1V, 09/04/2024, 16:27. FINDINGS: Surgical changes and devices: Subdiaphragmatic enteric tube with side port at the GE junction and tip overlying the proximal gastric body. Cholecystectomy clips in the right upper quadrant. Lungs and pleura: Lungs are clear. No pleural effusions or pneumothorax. Mediastinum: Mediastinal contours appear normal. Heart size is normal. Bones and chest wall: No suspicious bony lesions. Overlying soft tissues appear unremarkable. IMPRESSION: Subdiaphragmatic enteric tube with side port at the GE junction and tip overlying the proximal gastric body. Recommend advancement to place side port distal to the GE junction. Dictated by: Jesús Juárez M.D. on 08/14/2025 at 15:25 Approved by: Jesús Juárez M.D. on 08/14/2025 at 15:25
[2025-08-14] MEDS: SODIUM CHLORIDE 0.9% 1,000 ML 1000 ML IV (11:09)
[2025-08-14] MEDS: MORPHINE 2 MG/ML INJ IV (11:10)
[2025-08-14] MEDS: droPERidol 2.5 MG/ML VIAL 5 MG IV (11:11)
--- NOTE | 2025-08-14 11:15 | DI.RAD.S_ITS ---
PROCEDURE: XR ACUTE ABDOMEN SERIES INDICATIONS: abd pain TECHNIQUE: One view chest and two views of the abdomen were acquired. COMPARISON: None. FINDINGS: Surgical changes and devices: None. Chest: Lungs are clear. Heart size is normal. No pleural effusions. No pneumoperitoneum. Abdomen: Bowel gas pattern is normal. No suspicious calcifications. Visualized solid organ contours appear normal. Cholecystectomy clips in the right upper quadrant. Bones: No suspicious bony lesions. IMPRESSION: No acute abnormality. Dictated by: Jesús Juárez M.D. on 08/14/2025 at 11:19 Approved by: Jesús Juárez M.D. on 08/14/2025 at 13:17
[2025-08-14] MEDS: diphenhydrAMINE 50 MG/ML VIAL IV (11:19)
[2025-08-14 11:27] LABS: Alanine Aminotransferase 23 IU/L (<35); Albumin 4.6 g/dL (3.5-5.0); Albumin Globulin Ratio 1.8 (1.0-2.8); Alkaline Phosphatase 70 U/L (38-126); Blood Urea Nitrogen 6 mg/dL (7-17); Calcium 9.2 mg/dL (8.4-10.2); Carbon Dioxide 23 mmol/L (22-32); Chloride 101 mmol/L (98-107); Estimated Glomerular Filt Rate > 60 mL/min (>60); Globulin 2.5 g/dL (1.7-4.1); Glucose 128 mg/dL (70-99); HEMOLYSIS < 15 (0-50); Lipase 59 U/L (23-300); Potassium 3.0 mmol/L (3.4-5.1); Sodium 140 mmol/L (137-145); Total Protein 7.1 g/dL (6.3-8.2)
[2025-08-14 11:28] LABS: Add Manual Diff / Slide Review NO; Hematocrit 38.1 % (36-46); Hemoglobin 12.7 g/dL (12.0-16.0); Lymphocytes Absolute Auto 2300 /uL (1100-4500); Mean Corpuscular HGB Conc 33.3 % (30-36); Mean Corpuscular Hemoglobin 26.5 PG (26-34); Mean Corpuscular Volume 79.5 fL (80-100); Platelet Count 437 X10^3/uL (150-400)
[2025-08-14] MEDS: METOCLOPRAMIDE 10 MG/2 ML INJ IV (13:31)
--- NOTE | 2025-08-14 14:39 | ED.ABDPAIN ---
HPI - Abdominal Pain <Nathan Ronquillo MD - Last Filed: 08/14/25 18:13> General Chief Complaint: Abdominal Pain Stated Complaint: N/V ABD pain Time Seen by Provider: 08/14/25 10:42 Source: patient and EMS Mode of arrival: EMS History of Present Illness HPI narrative: This is a 44-year-old female who has been here multiple times for upper abdominal pain and vomiting. She has had approximately 25 CTs done this year. Patient is set for the past few days she has been unable to keep food down complaints severe epigastric pain non provoked non palliated patient also says she has been unable to hold any food down. Patient denied diarrhea melena hematochezia or hematemesis patient has said that she has had a gastric sleeve performed at [facility] in [place]. No fevers or chills no chest pain or shortness of breath. Related Data Home Medications ?Medication ?Instructions ?Recorded ?Confirmed Brennen-plex 85 mg PO DAILY 07/12/25 08/01/25 lisinopril 5 mg tablet 5 mg PO DAILY 07/12/25 08/01/25 polyethylene glycol 3350 17 17 g PO BID 07/12/25 08/01/25 gram/dose oral powder vitamin d-3 10,000 unit PO DAILY 07/12/25 08/01/25 Previous Rx's ?Medication ?Instructions ?Recorded clonazepam 0.5 mg tablet 0.5 mg PO BID #60 tabs 03/18/25 lamotrigine 100 mg tablet 100 mg PO DAILY #90 tabs 03/18/25 ondansetron 4 mg disintegrating 4 mg PO Q6H PRN nausea and 03/21/25 tablet vomiting #30 tabs topiramate 25 mg tablet (Topamax) 50 mg (2 x 25 mg) PO BID #90 tabs 03/21/25 prochlorperazine maleate 10 mg 10 mg PO TID PRN nausea and 05/23/25 tablet (Compazine) vomiting #90 tabs oxycodone 5 mg tablet 5 mg PO BID PRN pain #30 tabs 07/25/25 metoclopramide HCl 10 mg tablet 10 mg PO Q6H PRN nausea and 07/31/25 (Reglan) vomiting #20 tabs promethazine 25 mg rectal 25 mg IN Q6H PRN nausea and 07/31/25 suppository vomiting #12 ea cefdinir 300 mg capsule 300 mg PO BID #10 caps 08/08/25 naloxone 4 mg/actuation nasal 4 mg intranasal Q2M PRN opioid 08/08/25 spray (Narcan) overdose #2 ea ondansetron 4 mg disintegrating 4 mg PO Q6H PRN nausea and 08/08/25 tablet vomiting #20 tabs oxycodone-acetaminophen 5 mg-325 1 tab PO Q4-6H PRN pain #20 tabs 08/08/25 mg tablet (Percocet) amoxicillin 875 mg-potassium 1 tab PO BID 7 days #14 tabs 08/12/25 clavulanate 125 mg tablet Allergies Allergy/AdvReac Type Severity Reaction Status Date / Time vancomycin Allergy Intermediate ITCHING Verified 08/14/25 10:39 gluten Allergy Celiac Verified 08/14/25 10:39 NSAIDS (Non-Steroidal AdvReac Mild Gastrointestinal Verified 08/14/25 10:39 Anti-Inflamma Upset benzonatate (From Tessalon AdvReac Unknown Hives Verified 08/14/25 10:39 Perles) escitalopram (From Lexapro) AdvReac Unknown Hallucinati Verified 08/14/25 10:39 ng Review of Systems <Nathan Ronquillo MD - Last Filed: 08/14/25 18:13> Review of Systems Narrative: GENERAL: Denies chills, fatigue, malaise, fever, sweats. HEENT: Denies sinus pain, ear pain, sore throat, difficulty swallowing, dizziness. RESPIRATORY: Denies dyspnea, cough, wheezing, hemoptysis, sputum. CARDIOVASCULAR: Denies chest pain, palpitations, orthopnea, edema, GASTROINTESTINAL: See HPI : Denies dysuria, frequency, incontinence, hematuria, urinary retention. MUSCULOSKELETAL: denies weakness, joint pain, or bony pain SKIN: Denies rash, skin lesions, or other NEUROLOGIC: Denies weakness, headache, numbness, change in speech, confusion, seizures, incoordination. PSYCHIATRIC: No concerning psychosocial issues. 12 point review of systems is negative except for those stated above Patient History <Nathan Ronquillo MD - Last Filed: 08/14/25 18:13> Medical History Abdominal pain Bile reflux gastritis Left corneal abrasion Headache Polycystic ovary disease Celiac disease GERD with apnea Hypertension Bipolar disorder Surgical History H/O: hysterectomy Status post tubal ligation History of section H/O abdominoplasty H/O oophorectomy H/O gastric sleeve History of cholecystectomy History of appendectomy Social History marital status: household members: significant other and children lives independently: Yes occupational status: employed Smoking Status: Never smoker alcohol intake: never substance use type: marijuana Smoking Status: Never smoker alcohol intake frequency: holidays/special occasions only Exam <Nathan Ronquillo MD - Last Filed: 08/14/25 18:13> Narrative Exam Narrative: GENERAL: [] year old patient appears stated age. Well-developed patient, in mild distress. HEAD: Atraumatic. Normocephalic. EYES: Pupils equal round and reactive. Extraocular motions intact. No scleral icterus. No injection or drainage. ENT: Nose without bleeding, purulent drainage. Throat without erythema, tonsillar hypertrophy or exudate. Airway patent. NECK: Trachea midline. Non tender CARDIOVASCULAR: Regular rate and rhythm without murmurs, gallops, or rubs. RESPIRATORY: Clear to auscultation. Breath sounds equal bilaterally. No wheezes, rales, or rhonchi. GASTROINTESTINAL: Soft with epigastric tenderness no guarding or rebound no CVA tenderness bowel sounds are hyperactive. EXTREMITIES: No edema or joint tenderness. BACK: Nontender without deformity or crepitance. No flank tenderness. NEURO: AOx3. SKIN: No rash or erythema of visible areas Initial Vital Signs Initial Vital Signs: Vital Signs Pulse Oximetry 98 08/14/25 10:33 <Nash Desir MD - Last Filed: 08/16/25 07:18> Initial Vital Signs Initial Vital Signs: Vital Signs Pulse Oximetry 98 08/14/25 10:33 Course <Nathan Ronquillo MD - Last Filed: 08/14/25 18:13> Orders Ordered: Discontinued Medications Dexamethasone (Dexamethasone 10 Mg/Ml Vial) 10 mg IV NOW ONE Stop: 08/14/25 15:50 Last Admin: 08/14/25 16:19 Dose: 10 mg Documented By: Dexamethasone (Dexamethasone 10 Mg/Ml Vial) 10 mg IV NOW ONE Stop: 08/15/25 07:22 Last Admin: 08/15/25 08:07 Dose: 10 mg Documented By: RB Diphenhydramine HCl (Diphenhydramine 50 Mg/Ml Vial) 50 mg IV NOW ONE Stop: 08/14/25 10:56 Last Admin: 08/14/25 11:19 Dose: 50 mg Documented By: TC Droperidol (Droperidol 2.5 Mg/Ml Vial) 5 mg IV NOW ONE Stop: 08/14/25 10:56 Last Admin: 08/14/25 11:11 Dose: 5 mg Documented By: TC Droperidol (Droperidol 2.5 Mg/Ml Vial) 5 mg IV NOW ONE Stop: 08/15/25 10:15 Last Admin: 08/15/25 10:40 Dose: 5 mg Documented By: CB Droperidol (Droperidol 2.5 Mg/Ml Vial) 2.5 mg IV Q6HR PRN PRN Reason: Nausea Last Admin: 08/15/25 21:21 Dose: 2.5 mg Documented By: JAN Fentanyl (Fentanyl 100 Mcg/2 Ml Inj) 25 mcg IV NOW ONE Stop: 08/14/25 14:43 Last Admin: 08/14/25 15:10 Dose: 25 mcg Documented By: TC Fentanyl (Fentanyl 100 Mcg/2 Ml Inj) 50 mcg IV NOW ONE Stop: 08/14/25 17:04 Last Admin: 08/14/25 17:08 Dose: 50 mcg Documented By: TC Hydromorphone HCl (Hydromorphone Hcl 0.5 Mg/0.5 Ml Syringe) 0.5 mg IV NOW ONE Stop: 08/14/25 18:49 Last Admin: 08/14/25 19:04 Dose: 0.5 mg Documented By: RLC Hydromorphone HCl (Hydromorphone Hcl 0.5 Mg/0.5 Ml Syringe) 0.5 mg IV NOW ONE Stop: 08/14/25 21:13 Last Admin: 08/14/25 21:17 Dose: 0.5 mg Documented By: TC Sodium Chloride (Normal Saline 0.9%) 1,000 mls @ 1,000 mls/hr IV BOLUS ONE Stop: 08/14/25 12:02 Last Infusion: 08/14/25 12:29 Dose: Infused Documented By: Admin: 08/14/25 11:09 Dose: 1,000 mls/hr Documented By: TC Sodium Chloride (Normal Saline 0.9%) 1,000 mls @ 1,000 mls/hr IV BOLUS ONE Stop: 08/14/25 12:14 Last Admin: 08/14/25 13:40 Dose: Not Given Documented By: RB POTASSIUM CHLORIDE IN WATER (Potassium Cl 10 Meq/100 Ml Lindsay) 10 meq in 100 mls @ 100 mls/hr IV Q1H BENITO Stop: 08/14/25 18:44 Last Infusion: 08/14/25 21:05 Dose: Infused Documented By: Admin: 08/14/25 20:10 Dose: 100 mls/hr Documented By: Infusion: 08/14/25 20:09 Dose: Infused Documented By: Admin: 08/14/25 17:58 Dose: 100 mls/hr Documented By: Infusion: 08/14/25 17:46 Dose: Infused Documented By: Admin: 08/14/25 16:46 Dose: 100 mls/hr Documented By: Infusion: 08/14/25 16:12 Dose: Infused Documented By: Admin: 08/14/25 15:11 Dose: 100 mls/hr Documented By: TC Thiamine HCl 300 mg/ Sodium (Chloride) 103 mls @ 412 mls/hr IV NOW ONE Stop: 08/14/25 15:50 Last Infusion: 08/14/25 16:46 Dose: Infused Documented By: Admin: 08/14/25 16:19 Dose: 412 mls/hr Documented By: POTASSIUM CHLORIDE IN WATER (Potassium Cl 10 Meq/100 Ml Lindsay) 10 meq in 100 mls @ 100 mls/hr IV Q1H BENITO Stop: 08/14/25 20:59 Last Admin: 08/14/25 20:13 Dose: Not Given Documented By: RLC Sodium Chloride (Normal Saline 0.9%) 1,000 mls @ 125 mls/hr IV CONT BENITO Last Infusion: 08/15/25 17:29 Dose: Infused Documented By: Admin: 08/15/25 15:33 Dose: 125 mls/hr Documented By: Infusion: 08/15/25 14:32 Dose: Infused Documented By: Admin: 08/15/25 06:32 Dose: 125 mls/hr Documented By: Infusion: 08/15/25 06:31 Dose: Infused Documented By: Admin: 08/14/25 21:33 Dose: 125 mls/hr Documented By: CYNDY Thiamine HCl 300 mg/ Sodium (Chloride) 103 mls @ 412 mls/hr IV NOW ONE Stop: 08/15/25 07:22 Last Infusion: 08/15/25 08:30 Dose: Infused Documented By: Admin: 08/15/25 08:06 Dose: 412 mls/hr Documented By: RB Acetaminophen (Ofirmev) 1,000 mg in 100 mls @ 400 mls/hr IV Q6H PRN PRN Reason: Fever/Mild Pain (1-3) Last Infusion: 08/15/25 22:42 Dose: Infused Documented By: Admin: 08/15/25 21:22 Dose: 400 mls/hr Documented By: JAN Ketorolac Tromethamine (Ketorolac 30 Mg/Ml Vial) 30 mg IV NOW ONE Stop: 08/15/25 17:29 Last Admin: 08/15/25 17:34 Dose: 30 mg Documented By: KATI Lidocaine HCl (Lidocaine Viscous 2% 15 Ml Solution) 15 ml 0.2 ml/kg (15 ml) PO NOW ONE Stop: 08/15/25 18:55 Last Admin: 08/15/25 19:02 Dose: 15 ml Documented By: KATI Metoclopramide HCl (Metoclopramide 10 Mg/2 Ml Inj) 10 mg IV NOW ONE Stop: 08/14/25 13:28 Last Admin: 08/14/25 13:31 Dose: 10 mg Documented By: CYNDY Metoclopramide HCl (Metoclopramide 10 Mg/2 Ml Inj) 10 mg IV NOW ONE Stop: 08/15/25 02:39 Last Admin: 08/15/25 03:02 Dose: 10 mg Documented By: JAN Morphine Sulfate (Morphine 2 Mg/Ml Inj) 2 mg IV NOW ONE Stop: 08/14/25 10:56 Last Admin: 08/14/25 11:10 Dose: 2 mg Documented By: CYNDY Vital Signs Vital signs: Vital Signs - 8 hr 08/15/25 23:30 08/15/25 23:31 08/15/25 23:31 Pulse Rate 71 62 Blood Pressure 179/85 H Pulse Oximetry 100 100 Oxygen Delivery Method Room Air 08/16/25 00:00 08/16/25 00:01 08/16/25 00:01 Pulse Rate 53 L 54 L Blood Pressure 134/70 Pulse Oximetry 98 98 Oxygen Delivery Method 08/16/25 00:30 08/16/25 00:30 Pulse Rate 59 L Blood Pressure 130/75 Pulse Oximetry 97 Oxygen Delivery Method <Nash Desir MD - Last Filed: 08/16/25 07:18> Orders Ordered: Discontinued Medications Dexamethasone (Dexamethasone 10 Mg/Ml Vial) 10 mg IV NOW ONE Stop: 08/14/25 15:50 Last Admin: 08/14/25 16:19 Dose: 10 mg Documented By: Dexamethasone (Dexamethasone 10 Mg/Ml Vial) 10 mg IV NOW ONE Stop: 08/15/25 07:22 Last Admin: 08/15/25 08:07 Dose: 10 mg Documented By: RB Diphenhydramine HCl (Diphenhydramine 50 Mg/Ml Vial) 50 mg IV NOW ONE Stop: 08/14/25 10:56 Last Admin: 08/14/25 11:19 Dose: 50 mg Documented By: TC Droperidol (Droperidol 2.5 Mg/Ml Vial) 5 mg IV NOW ONE Stop: 08/14/25 10:56 Last Admin: 08/14/25 11:11 Dose: 5 mg Documented By: TC Droperidol (Droperidol 2.5 Mg/Ml Vial) 5 mg IV NOW ONE Stop: 08/15/25 10:15 Last Admin: 08/15/25 10:40 Dose: 5 mg Documented By: CB Droperidol (Droperidol 2.5 Mg/Ml Vial) 2.5 mg IV Q6HR PRN PRN Reason: Nausea Last Admin: 08/15/25 21:21 Dose: 2.5 mg Documented By: KH Fentanyl (Fentanyl 100 Mcg/2 Ml Inj) 25 mcg IV NOW ONE Stop: 08/14/25 14:43 Last Admin: 08/14/25 15:10 Dose: 25 mcg Documented By: TC Fentanyl (Fentanyl 100 Mcg/2 Ml Inj) 50 mcg IV NOW ONE Stop: 08/14/25 17:04 Last Admin: 08/14/25 17:08 Dose: 50 mcg Documented By: TC Hydromorphone HCl (Hydromorphone Hcl 0.5 Mg/0.5 Ml Syringe) 0.5 mg IV NOW ONE Stop: 08/14/25 18:49 Last Admin: 08/14/25 19:04 Dose: 0.5 mg Documented By: DEMARCUS Hydromorphone HCl (Hydromorphone Hcl 0.5 Mg/0.5 Ml Syringe) 0.5 mg IV NOW ONE Stop: 08/14/25 21:13 Last Admin: 08/14/25 21:17 Dose: 0.5 mg Documented By: CYNDY Sodium Chloride (Normal Saline 0.9%) 1,000 mls @ 1,000 mls/hr IV BOLUS ONE Stop: 08/14/25 12:02 Last Infusion: 08/14/25 12:29 Dose: Infused Documented By: Admin: 08/14/25 11:09 Dose: 1,000 mls/hr Documented By: CYNDY Sodium Chloride (Normal Saline 0.9%) 1,000 mls @ 1,000 mls/hr IV BOLUS ONE Stop: 08/14/25 12:14 Last Admin: 08/14/25 13:40 Dose: Not Given Documented By: RB POTASSIUM CHLORIDE IN WATER (Potassium Cl 10 Meq/100 Ml Lindsay) 10 meq in 100 mls @ 100 mls/hr IV Q1H BENITO Stop: 08/14/25 18:44 Last Infusion: 08/14/25 21:05 Dose: Infused Documented By: Admin: 08/14/25 20:10 Dose: 100 mls/hr Documented By: RLAngelito Infusion: 08/14/25 20:09 Dose: Infused Documented By: Admin: 08/14/25 17:58 Dose: 100 mls/hr Documented By: Infusion: 08/14/25 17:46 Dose: Infused Documented By: Admin: 08/14/25 16:46 Dose: 100 mls/hr Documented By: Infusion: 08/14/25 16:12 Dose: Infused Documented By: Admin: 08/14/25 15:11 Dose: 100 mls/hr Documented By: TC Thiamine HCl 300 mg/ Sodium (Chloride) 103 mls @ 412 mls/hr IV NOW ONE Stop: 08/14/25 15:50 Last Infusion: 08/14/25 16:46 Dose: Infused Documented By: Admin: 08/14/25 16:19 Dose: 412 mls/hr Documented By: POTASSIUM CHLORIDE IN WATER (Potassium Cl 10 Meq/100 Ml Lindsay) 10 meq in 100 mls @ 100 mls/hr IV Q1H BENITO Stop: 08/14/25 20:59 Last Admin: 08/14/25 20:13 Dose: Not Given Documented By: RLC Sodium Chloride (Normal Saline 0.9%) 1,000 mls @ 125 mls/hr IV CONT BENITO Last Infusion: 08/15/25 17:29 Dose: Infused Documented By: Admin: 08/15/25 15:33 Dose: 125 mls/hr Documented By: Infusion: 08/15/25 14:32 Dose: Infused Documented By: Admin: 08/15/25 06:32 Dose: 125 mls/hr Documented By: Infusion: 08/15/25 06:31 Dose: Infused Documented By: Admin: 08/14/25 21:33 Dose: 125 mls/hr Documented By: TC Thiamine HCl 300 mg/ Sodium (Chloride) 103 mls @ 412 mls/hr IV NOW ONE Stop: 08/15/25 07:22 Last Infusion: 08/15/25 08:30 Dose: Infused Documented By: Admin: 08/15/25 08:06 Dose: 412 mls/hr Documented By: RB Acetaminophen (Ofirmev) 1,000 mg in 100 mls @ 400 mls/hr IV Q6H PRN PRN Reason: Fever/Mild Pain (1-3) Last Infusion: 08/15/25 22:42 Dose: Infused Documented By: Admin: 08/15/25 21:22 Dose: 400 mls/hr Documented By: JAN Ketorolac Tromethamine (Ketorolac 30 Mg/Ml Vial) 30 mg IV NOW ONE Stop: 08/15/25 17:29 Last Admin: 08/15/25 17:34 Dose: 30 mg Documented By: KATI Lidocaine HCl (Lidocaine Viscous 2% 15 Ml Solution) 15 ml 0.2 ml/kg (15 ml) PO NOW ONE Stop: 08/15/25 18:55 Last Admin: 08/15/25 19:02 Dose: 15 ml Documented By: KATI Metoclopramide HCl (Metoclopramide 10 Mg/2 Ml Inj) 10 mg IV NOW ONE Stop: 08/14/25 13:28 Last Admin: 08/14/25 13:31 Dose: 10 mg Documented By: CYNDY Metoclopramide HCl (Metoclopramide 10 Mg/2 Ml Inj) 10 mg IV NOW ONE Stop: 08/15/25 02:39 Last Admin: 08/15/25 03:02 Dose: 10 mg Documented By: JAN Morphine Sulfate (Morphine 2 Mg/Ml Inj) 2 mg IV NOW ONE Stop: 08/14/25 10:56 Last Admin: 08/14/25 11:10 Dose: 2 mg Documented By: TC Vital Signs Vital signs: Vital Signs - 8 hr 08/15/25 23:30 08/15/25 23:31 08/15/25 23:31 Pulse Rate 71 62 Blood Pressure 179/85 H Pulse Oximetry 100 100 Oxygen Delivery Method Room Air 08/16/25 00:00 08/16/25 00:01 08/16/25 00:01 Pulse Rate 53 L 54 L Blood Pressure 134/70 Pulse Oximetry 98 98 Oxygen Delivery Method 08/16/25 00:30 08/16/25 00:30 Pulse Rate 59 L Blood Pressure 130/75 Pulse Oximetry 97 Oxygen Delivery Method MDM - Abdominal Pain <Nathan Ronquillo MD - Last Filed: 08/14/25 18:13> Lab Data 08/14/25 10:40 08/14/25 10:40 Labs: Lab Results 08/14/25 Range/Units 10:40 WBC 9.8 (4.5-11.0) X10^3/uL RBC 4.79 (4.0-5.2) X10^6/uL Hgb 12.7 (12.0-16.0) g/dL Hct 38.1 (36-46) % MCV 79.5 L (80-100) fL MCH 26.5 (26-34) PG MCHC 33.3 (30-36) % RDW 16.0 H (11.6-14.8) % Plt Count 437 H (150-400) X10^3/uL Neut % (Auto) 67.5 (50-75) % Lymph % (Auto) 23.5 L (25-40) % [place] % (Auto) 8.6 (3-14) % Eos % (Auto) 0.1 L (2-4) % Baso % (Auto) 0.3 (0-2) % Neut # (Auto) 6600 (9890-4698) /uL Lymph # (Auto) 2300 (8264-4654) /uL [place] # (Auto) 800 (0-900) /uL Eos # (Auto) 0 (0-450) /uL Baso # (Auto) 0 (0-100) /uL Sodium 140 (137-145) mmol/L Potassium 3.0 L (3.4-5.1) mmol/L Chloride 101 (98-107) mmol/L Carbon Dioxide 23 (22-32) mmol/L BUN 6 L (7-17) mg/dL Creatinine 0.47 L (0.52-1.04) mg/dL Estimated GFR > 60 (>60) mL/min BUN/Creatinine Ratio 12.8 (6-22) Glucose 128 H (70-99) mg/dL Calcium 9.2 (8.4-10.2) mg/dL Total Bilirubin 1.8 H (0.2-1.3) mg/dL AST 28 (14-36) IU/L ALT 23 (<35) IU/L Alkaline Phosphatase 70 (38-126) U/L Total Protein 7.1 (6.3-8.2) g/dL Albumin 4.6 (3.5-5.0) g/dL Globulin 2.5 (1.7-4.1) g/dL Albumin/Globulin Ratio 1.8 (1.0-2.8) Lipase 59 (23-300) U/L Point of care testing: Urine Dip Bedside Urine Glucose Negative Bedside Urine Bilirubin - Negative Bedside Urine Ketone ++++ 160 Urine Specific [place] 1.015 Bedside Urine Occult Blood - Negative Bedside Urine pH 6.5 Bedside Urine Protein - Negative Bedside Urine Urobilinogen - Negative Bedside Urine Nitrite - Negative Bedside Urine Leukocytes - Negative Esterase MDM Narrative Medical decision making narrative: The patient had a CBC that was unremarkable patient had a chemistry remarkable for potassium of 3.0 lipase was negative patient had urinalysis positive only for ketones patient had a acute abdomen series which revealed nothing focal. In the emergency department for her nausea and vomiting patient did receive IV droperidol IV Benadryl IV Reglan without improvement at this point I over the nurse to place an NG tube which was placed under my direct 200 and supervision position confirmed by x-ray. I then spoke with the patient's bariatric surgeon Dr. Kraus at [facility] he requested that I give the patient 300 of IV thiamine and 10 of IV dexamethasone which I did. He then requested a CT of the abdomen and pelvis with p.o. contrast. This was ordered however has not been done at the time of my departure so I will sign out to the night your doctor for final disposition. Differential diagnosis small-bowel obstruction gastric stenosis. <Nash Desir MD - Last Filed: 08/16/25 07:18> Lab Data Labs: Lab Results 08/14/25 Range/Units 10:40 WBC 9.8 (4.5-11.0) X10^3/uL RBC 4.79 (4.0-5.2) X10^6/uL Hgb 12.7 (12.0-16.0) g/dL Hct 38.1 (36-46) % MCV 79.5 L (80-100) fL MCH 26.5 (26-34) PG MCHC 33.3 (30-36) % RDW 16.0 H (11.6-14.8) % Plt Count 437 H (150-400) X10^3/uL Neut % (Auto) 67.5 (50-75) % Lymph % (Auto) 23.5 L (25-40) % [place] % (Auto) 8.6 (3-14) % Eos % (Auto) 0.1 L (2-4) % Baso % (Auto) 0.3 (0-2) % Neut # (Auto) 6600 (8946-6969) /uL Lymph # (Auto) 2300 (9802-9887) /uL [place] # (Auto) 800 (0-900) /uL Eos # (Auto) 0 (0-450) /uL Baso # (Auto) 0 (0-100) /uL Sodium 140 (137-145) mmol/L Potassium 3.0 L (3.4-5.1) mmol/L Chloride 101 (98-107) mmol/L Carbon Dioxide 23 (22-32) mmol/L BUN 6 L (7-17) mg/dL Creatinine 0.47 L (0.52-1.04) mg/dL Estimated GFR > 60 (>60) mL/min BUN/Creatinine Ratio 12.8 (6-22) Glucose 128 H (70-99) mg/dL Calcium 9.2 (8.4-10.2) mg/dL Total Bilirubin 1.8 H (0.2-1.3) mg/dL AST 28 (14-36) IU/L ALT 23 (<35) IU/L Alkaline Phosphatase 70 (38-126) U/L Total Protein 7.1 (6.3-8.2) g/dL Albumin 4.6 (3.5-5.0) g/dL Globulin 2.5 (1.7-4.1) g/dL Albumin/Globulin Ratio 1.8 (1.0-2.8) Lipase 59 (23-300) U/L Point of care testing: Urine Dip Bedside Urine Glucose Negative Bedside Urine Bilirubin - Negative Bedside Urine Ketone ++++ 160 Urine Specific [place] 1.015 Bedside Urine Occult Blood - Negative Bedside Urine pH 6.5 Bedside Urine Protein - Negative Bedside Urine Urobilinogen - Negative Bedside Urine Nitrite - Negative Bedside Urine Leukocytes - Negative Esterase MDM Narrative Medical decision making narrative: The patient had a CBC that was unremarkable patient had a chemistry remarkable for potassium of 3.0 lipase was negative patient had urinalysis positive only for ketones patient had a acute abdomen series which revealed nothing focal. In the emergency department for her nausea and vomiting patient did receive IV droperidol IV Benadryl IV Reglan without improvement at this point I over the nurse to place an NG tube which was placed under my direct 200 and supervision position confirmed by x-ray. I then spoke with the patient's bariatric surgeon Dr. Kraus at [facility] he requested that I give the patient 300 of IV thiamine and 10 of IV dexamethasone which I did. He then requested a CT of the abdomen and pelvis with p.o. contrast. This was ordered however has not been done at the time of my departure so I will sign out to the night your doctor for final disposition. Differential diagnosis small-bowel obstruction gastric stenosis. August 15, 2025 at 7:[address] Desir: Sign-out from Dr. Rosa, patient's surgeon has been contacted. Repeat trial of medication pending and if not successful then will need transfer 9:10 a.m.. Unsuccessful with repeat dosing of medication. We will try to transfer. I confirmed with patient she had her surgery at [address] Not [facility] Discharge Plan Departure Patient Disposition: [facility] Clinical Impression: Nausea and vomiting, Intractable abdominal pain Prescriptions: No Action prochlorperazine maleate [Compazine] 10 mg tablet 10 mg PO TID PRN (Reason: nausea and vomiting) Qty: 90 3RF oxycodone 5 mg tablet 5 mg PO BID PRN (Reason: pain) Qty: 30 0RF clonazepam 0.5 mg tablet 0.5 mg PO BID Qty: 60 5RF lamotrigine 100 mg tablet 100 mg PO DAILY Qty: 90 3RF Brennen-plex 85 mg PO DAILY lisinopril 5 mg tablet 5 mg PO DAILY polyethylene glycol 3350 17 gram/dose powder 17 g PO BID vitamin d-3 10,000 unit PO DAILY topiramate [Topamax] 25 mg Tablet 50 mg PO BID Qty: 90 0RF ondansetron 4 mg tablet,disintegrating 4 mg PO Q6H PRN (Reason: nausea and vomiting) Qty: 30 1RF oxycodone-acetaminophen [Percocet] 5-325 mg tablet 1 tab PO Q4-6H PRN (Reason: pain) Qty: 20 0RF ondansetron 4 mg tablet,disintegrating 4 mg PO Q6H PRN (Reason: nausea and vomiting) Qty: 20 0RF cefdinir 300 mg capsule 300 mg PO BID Qty: 10 0RF naloxone [Narcan] 4 mg/actuation spray,non-aerosol 4 mg intranasal Q2M PRN (Reason: opioid overdose) Qty: 2 0RF Rx Instructions: spray 1 dose into ONE nostril; alternate nostrils w each dose until help arrives amoxicillin-pot clavulanate 875-125 mg tablet 1 tab PO BID 7 Days Qty: 14 0RF promethazine 25 mg suppository 25 mg IN Q6H PRN (Reason: nausea and vomiting) Qty: 12 0RF metoclopramide HCl [Reglan] 10 mg tablet 10 mg PO Q6H PRN (Reason: nausea and vomiting) Qty: 20 0RF Referrals: Sarah Dunbar MD [Primary Care Provider, Family Practice]
[2025-08-14] MEDS: fentaNYL 100 MCG/2 ML INJ 25 MCG IV (15:10)
[2025-08-14] MEDS: POTASSIUM CHLORIDE IN WATER 10 MEQ/100 ML PIGGYBACK 100 MEQ IV ×4 (15:11→20:10)
--- NOTE | 2025-08-14 15:49 | DI.CT.S_ITS ---
PROCEDURE: CT ABDOMEN PELVIS W CON INDICATIONS: abdomenal pain possible gastric stricture possible SBO TECHNIQUE: After the administration of intravenous contrast, axial sections acquired from the lung bases to the pubic symphysis. Coronal and sagittal reformats were performed. For radiation dose reduction, the following was used: automated exposure control, adjustment of mA and/or kV according to patient size. COMPARISON: [facility], CT, CT ABDOMEN PELVIS W CON, 07/29/2025, 16:31. [facility], CT, CT ABDOMEN PELVIS W CON, 07/17/2025, 4:59. FINDINGS: Image quality: Diagnostic. Lower Chest: No significant findings. ABDOMEN: Liver: No suspicious solid mass. Hepatic steatosis. More focal geographic fatty infiltration along the falciform ligament. Gallbladder: Post cholecystectomy. Biliary ducts: No biliary dilation. Pancreas: No ductal dilation. Spleen: Size is within normal limits. A 5 x 5 cm fluid attenuating cyst with peripheral calcifications which may represent a pseudocyst in the setting of prior splenic trauma. Adrenal Glands: No adrenal nodules. Kidneys and Ureters: No hydronephrosis. No solid mass. No complex renal cystic lesion which requires follow up. Stomach and Bowel: Subdiaphragmatic enteric tube looped in the gastric body. Changes of gastric bypass. Oral contrast extends through the bypass tract into the small bowel. Contrast reaches the level of the distal large bowel and rectum. No intraluminal contrast passes into the distal apache gastric lumen. There is a small volume of contrast within the distal 2nd portion of the duodenum with contrast in the intraluminal 3rd portion the duodenum and 4th portion the duodenum. Descending colon diverticulosis without diverticulitis. Normal colonic caliber, without significant wall thickening. Nonvisualized appendix. Peritoneum: No abnormal intraperitoneal fluid. No free air. Ventral Wall: No significant ventral hernia. Postsurgical changes from prior abdominal surgery within the midline to inferior abdominal wall. Abdominal Nodes: No retroperitoneal or mesenteric adenopathy by size criteria. Vessels: Aorta and inferior vena cava are normal in size. PELVIS: Pelvic Organs: Post hysterectomy. Bladder: Excreted contrast in the urinary bladder. Pelvic Nodes: No enlarged lymph nodes. Miscellaneous: No inguinal hernias are seen. Bones: No aggressive osseous abnormality. IMPRESSION: 1. Changes of Julieta-en-Y gastric bypass with patent gastric-small bowel anastomosis. Contrast reaches the level of the distal rectum without focal structure or bowel obstruction. 2. Oral contrast within the excluded 2nd and 3rd portions of the duodenum, which may represent retropulsion or possible small volume contrast leak through the prior gastric exclusion. If indicated, this could be further evaluated with endoscopy. Dictated by: Jesús Juárez M.D. on 08/14/2025 at 17:43 Approved by: Jesús Juárez M.D. on 08/14/2025 at 17:51
[2025-08-14] MEDS: THIAMINE 300 MG in SODIUM CHLORIDE 0.9% 100 ML 412 MG IV (16:19)
[2025-08-14] MEDS: fentaNYL 100 MCG/2 ML INJ 50 MCG IV (17:08)
--- NOTE | 2025-08-14 17:12 | DI.RAD.S_ITS ---
PROCEDURE: XR CHEST 1V INDICATIONS: NG placement TECHNIQUE: One view of the chest was acquired. COMPARISON: [facility], CR, XR CHEST 1V, 08/14/2025, 16:01. FINDINGS: Surgical changes and devices: Subdiaphragmatic enteric tube looped in the gastric cardia. Cholecystectomy clips in the right upper quadrant. Lungs and pleura: Lungs are clear. No pleural effusions or pneumothorax. Mediastinum: Mediastinal contours appear normal. Heart size is normal. Bones and chest wall: No suspicious bony lesions. Overlying soft tissues appear unremarkable. IMPRESSION: Subdiaphragmatic enteric tube looped in the gastric cardia. Dictated by: Jesús Juárez M.D. on 08/14/2025 at 16:26 Approved by: Jesús Juárez M.D. on 08/14/2025 at 16:27
[2025-08-14] MEDS: SODIUM CHLORIDE 0.9% 1,000 ML 125 ML IV (21:33)
[2025-08-15] VITALS (64 sets, daily range): BP systolic 123–195; BP diastolic 63–136; PULSE 43–74; O2SAT 92–100
[2025-08-15] MEDS: METOCLOPRAMIDE 10 MG/2 ML INJ IV (03:02)
[2025-08-15] MEDS: SODIUM CHLORIDE 0.9% 1,000 ML 125 ML IV ×2 (06:32→15:33)
--- NOTE | 2025-08-15 08:02 | PC.NURSE ---
Patient disconnected from suction and infusion so that she could ambulate to the restroom. Patient successfully able to do so independently.
[2025-08-15] MEDS: THIAMINE 300 MG in SODIUM CHLORIDE 0.9% 100 ML 412 MG IV (08:06)
[2025-08-15] MEDS: droPERidol 2.5 MG/ML VIAL 5 MG IV (10:40)
[2025-08-15] MEDS: KETOROLAC 30 MG/ML VIAL IV (17:34)
[2025-08-15] MEDS: LIDOCAINE VISCOUS 2% 15 ML SOLUTION PO (19:02)
[2025-08-15] MEDS: droPERidol 2.5 MG/ML VIAL IV (21:21)
[2025-08-15] MEDS: ACETAMINOPHEN IV 1,000 MG/100 ML VIAL 400 MG IV (21:22)
[2025-08-16] VITALS: PULSE 53; O2SAT 98
[2025-08-16 00:01] VITALS: BP 134/70; PULSE 54; O2SAT 98
[2025-08-16 00:30] VITALS: BP 130/75; PULSE 59; O2SAT 97
--- NOTE | 2025-08-16 00:31 | PC.NURSE ---
Report given to LUIS Steele at [facility]
== END 2025-08-16 00:33 | disposition short-term general hospital (02) ==
PROVIDERS: Emergency Medicine; Emergency Provider Emergency Medicine; PCP Student in an Organized Health Care Education/Training Program
DX: R10.13 Epigastric pain (principal); R11.2 Nausea with vomiting, unspecified
CPT/HCPCS: 36415; 71045; 74022; 74177; 80053; 81003; 83690; 85025; 96361; 96365; 96366; 96367; 96375; 96376; 99284; J0131; J1100; J1171; J1200; J1790; J1885; J2270; J2765; J3010; J7030; J7050; Q9967